=== PATIENT | male | born 1940 | race Caucasian/White ===

== ENCOUNTER 2018-03-02 10:38 | Emergency (ER) | payer MEDICARE, SELFPAY ==
[2018-03-02 10:39] VITALS: BP 160/85; PULSE 80; RESP 17; TEMP 37.2; O2SAT 92; BMI 39.2
[2018-03-02 10:52] VITALS: O2SAT 93
[2018-03-02 10:58] VITALS: O2SAT 93
--- NOTE | 2018-03-02 10:58 | EKG12_ITS ---
Test Reason : SOB Blood Pressure : / mmHG Vent. Rate : 083 BPM Atrial Rate : 083 BPM P-R Int : 376 ms QRS Dur : 080 ms QT Int : 388 ms P-R-T Axes : 044 -15 003 degrees QTc Int : 455 ms Sinus rhythm with sinus arrhythmia with 1st degree A-V block Minimal voltage criteria for LVH, may be normal variant Borderline ECG Confirmed by RENAE GUZMAN, STU ([id number]), newspaper editor managing DU MACK ([id number]) on 03/04/2018 1:39:36 PM Referred By: MARTI Confirmed By:STU MACDONALD MD
--- NOTE | 2018-03-02 11:03 | ED.DCSUM_ITS ---
- ER Visit Summary Date of Service: 03/02/18 Chief Complaint: Cough and shortness of breath History of Present Illness: The patient is a 77 M history of prior stroke, hypertension, BPH and neuropathies. Patient states for the last 2 weeks she has had a chronic nonproductive cough. Denies any chest pain. No fever. No hemoptysis. Was seen today at the [facility] urgent care they were concerned as they felt he had edema in his lower extremities they state that he had a weight gain he denies this. And was sent in the ER for further evaluation. He has no history of congestive heart failure. He has no history of renal disease. Physical Examination: Appearing older male. Vital signs stable except pulse ox 92% here on room air at the [facility] it was reportedly 90. He is borderline hypoxic. H EENT exam unremarkable. No distress. Neck nontender no JVD. Lungs coarse breath sounds bilaterally. No rales rhonchi or wheezing. Heart regular rhythm rate in the 80s. Abdomen is tender. He is moving all 4 extremities. He has no motor deficits. He does have trace edema both lower extremities. Calves are nontender. Neurologically he is awake and alert. 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 But no motor deficits. Back nontender. Test Results: BC shows elevated white count of 13.9 normal hemoglobin 13 no bands. Chemistries normal creatinine of 1 gap at 12. Troponin was normal. BNP was normal at 24. Chest x-ray showed no acute abnormality read both by myself the radiologist it was a 2 view film. EKG shows sinus rhythm rate 83 no acute signs of MS or ischemia. Unchanged from prior EKG from 2012. Emergency Department Course and Treatment: Older male with chronic cough and developing pedal edema. Treatment Plan: Repeat exam no change patient is doing well 1415. I discussed with both he and his his lab work x-ray and EKG. They are comfortable being discharged home with follow-up as an outpatient with primary care physician. Disposition: Discharge Impression: Viral URI Trace pedal edema This note was generated with [employer] dictation software. It may contain incorrect words, spelling, and punctuation that were not noted in review of the chart prior to signing ED Disposition - Plan for ED Patient: Chief Complaint: Shortness of Breath Referrals: Jose Maurice MD [Primary Care Provider] -
[2018-03-02 11:38] LABS: Anion Gap 12 (5-15); BUN 22 mg/dL (7-18); BUN/Creat Ratio 21.2 RATIO (10-20); Calcium,Total 8.8 mg/dL (8.5-10.1); Chloride 105 mmol/L (98-107); Creatinine, Serum 1.04 mg/dL (0.70-1.30); EST Glomerular Filtration Rate 73 mL/min (>60); Est Glom Filt Rate - Afr Amer 89 mL/min (>60); Estimated Creatinine Clearance 62.35 ml/min; Glucose 127 mg/dL (74-106); Sodium Level 145 mmol/L (136-145)
[2018-03-02 11:39] LABS: Absolute Lymphocyte Count 0.41 X10^3/ul (0.83-4.51); Absolute Neutrophil Count 12.8 X10^3/uL (2.0-7.7); Basophil# 0.03 X10^3/uL; Basophil% 0.2 % (0-1); Eosinophil# 0.11 X10^3/uL; Eosinophils% 0.8 % (0-5); Hematocrit 44.3 % (40-54); Hemoglobin 13.9 g/dl (13.0-16.5); Lymphocyte # 0.41 X10^3/ul (4.0); Lymphocyte % 2.9 % (19-41); Mean Corp Hgb Conc 31.4 g/gl (32-36); Mean Corpuscular Hgb 27.9 pg (27.0-32.0); Mean Corpuscular Volume 88.8 fL (80-94); Monocyte# 0.55 X10^3/uL; Monocyte% 3.9 % (0-10); Platelet Count 151 K/mm3 (150-450); RBC Distribution Width CV 15.9 % (11.6-14.6); RBC Distribution Width SD 50.7 fl (35.1-43.9); Red Blood Count 4.99 M/mm3 (4.6-6.2); White Blood Count 13.9 K/mm3 (4.4-11.0)
[2018-03-02 11:40] LABS: Differential Indicated SCAN CRITERIA MET; POSITIVE COUNT NO; POSITIVE DIFFERENTIAL YES; POSITIVE MORPHOLOGY NO
[2018-03-02 12:26] LABS: BNP,B-Type NATRIURETIC PEPTIDE 24.8 pg/mL (0-100)
[2018-03-02 12:48] VITALS: PULSE 73; RESP 24; O2SAT 93
[2018-03-02 13:41] VITALS: BP 157/63; PULSE 75; RESP 20; O2SAT 93
--- NOTE | 2018-03-02 14:19 | ED.DEP ---
ED Disposition - Plan for ED Patient: Disposition: Home or Assisted Living Chief Complaint: Shortness of Breath Instructions: ED URI Viral Referrals: Jose Maurice MD [Primary Care Provider] - 3-5 Days if not improving Additional Instructions: Follow-up your primary care physician. Your labs today all look good as did your chest x-ray. Return if you are feeling worse otherwise follow-up with your doctor.
[2018-03-02 14:25] VITALS: BP 154/96; PULSE 56; RESP 20; O2SAT 95
--- NOTE | 2018-03-03 13:58 | CM.ED ---
ED Callback: Follow-up call placed to patient. Patient states I'm not quite as bad as yesterday. I'm feeling better. He states his edema is about the same as yesterday, maybe a little better. He states that he did not take his Lasix last night, but did take it today. Upon asking patient if he's had shortness of breath today, he states not too much. I instructed the patient to follow-up with his PCP in 3-5 days if he feels he's not improving. Patient states understanding and denies any needs or questions at this time.
== END 2018-03-02 14:27 | disposition home or self-care (01) ==
PROVIDERS: Emergency Provider Emergency Medicine; Family Provider Family Medicine; PCP Family Medicine
DX: J06.9 Acute upper respiratory infection, unspecified (principal); R09.02 Hypoxemia; I10 Essential (primary) hypertension; R06.02 Shortness of breath; G62.9 Polyneuropathy, unspecified; N40.0 Benign prostatic hyperplasia without lower urinary tract symptoms; Z79.82 Long term (current) use of aspirin; Z79.899 Other long term (current) drug therapy; Z86.73 Personal history of transient ischemic attack (TIA), and cerebral infarction without residual deficits
CPT/HCPCS: 71046; 80048; 83880; 84484; 85025; 93005; 99284; A4216

== ENCOUNTER 2018-09-15 11:15 | Outpatient (RCR) | payer MEDICARE, SELFPAY ==
--- NOTE | 2018-09-17 18:25 | HP.OTEVAL_ITS ---
Patient's Visit Information JUAN MANUEL MASON is a 77 year old M, referred to Occupational Therapy by Dexter Sher MD, with a diagnosis of dupuytren contracture. Date of Evaluation: 09/15/18 Occupational Therapist: Millie Castañeda - Subjective Subjective: Pt seen for initial occupational therapy evaluation for dupuytren contracture. Pt had sx 09/08/18 on L hand MF, RF skin graft from bottom side of PF to PIP MF. Pt arrived in splint from day of sx, to be removed and placed in custom static hand based volar splint in maximum safe extension to be worn while sleeping and PRN with protocol from Dr. Landry. Pt is L hand dominent. Pt limited with all basic self care tasks at this time. Lives with spouse and is retired. Ambulates with cane or rollator. - Pain L hand 0 Pain Intensity Range: 0, 8 - Objective Objective/Observation: limited ROM L hand, increased pain with movement, edema L hand - ROM Wrist: L 40/61 ROM Comments: L MP PF -415, RF -332 MF -53. L PIP PF -, RF - MF - 4/60. L DIP PF 0/8, RF 0/6, MF 0/5 - Strength Newspaper Or Periodical Editor: R 80#, L DNT Lateral Pinch: R 16#, L DNT Tripod Pinch: R 10#, L DNT - Edema Other: Pt demo edema L hand and digits - Sensation Sensation Comments: Pt states slight numbness tip of L MF new since sx. - Quick DASH-Disab of Arm,Shoulder& Hand Quick DASH Score: 70.4525 - Goals Goal:100% adherence to protocol: Yes Goal:Daily scar massage when approriate: Yes Goal:ROM equal to unaffected hand: Yes Goal:Newspaper Or Periodical Editor/Pinch strength at least 75% of unaffected hand: Yes Goal:No pain with affected hand use: Yes Goal:Full use of affected hand in daily activities including: Yes Goal:Decrease scar hypersensitivity: Yes Other Goal: Pt/caregiver will be educated on HEP, scar mngmt techniques, wearing schedule for splint and wound care techniques with good understanding and demo 100%x - Rehabilitation General Assessment: Pt post-op dupuytrens 09/08/18 with limited ROM, increased edema, pain. Pt would benefit from direct occupational therapy services to follow protocol to increase ROM, increase strength, wound debridement as needed, decrease pain and edema, educate on scar mngmt techniques and wound care techniques, educate on HEP when appropriate to increase pt's ability to functionally use L hand at PLOF 1-2x/wk x 6 wks. Rehabilitation Potential: Good - Anticipated Interventions Anticipated Interventions: A/AAROM/PROM, Strengthening, Edema Control, Scar Care, Massage, Desensitization, Wound Care, Modalities, Orthoses, Joint Protection/Energy Conservation, Fine Motor Coord/Jose Alejandro, ADL Training, Education re assistive Equipment, Education re Diagnosis, Education re Self-Bandaging Techniques, Education re Skin Care and Precautions, Education re Self Massage Techniques, Education re Correct Donning Tech,Care&Wearing Sched Comp Garments, Caregiver Training, Home Program - Visit Plan Frequency: 1-2x /Week Duration: 6 Weeks General Plan: Follow protocol. Increase ROM, increase strength, decrease scar adhesions, educate on scar mgnmt techniques, wound debridement, decrease pain and edema, educate on correct donning/doffing of splint with wear schedule TEXT: Thank you for the opportunity to evaluate your patient. For Medicare and Medicare HMO plans, please review the plan of care and approve it. It will need to be FAXED BACK to us at [phone] for Medicare purposes. Please let me know if there are questions or concerns regarding this plan of care. Physician Signature: Date:
== END 2018-09-15 19:00 | disposition home or self-care (01) ==
LOC: OT 11:15
PROVIDERS: Family Provider Family Medicine; PCP Family Medicine; Referring Provider Orthopaedic Surgery; Visit Provider Orthopaedic Surgery
DX: M72.0 Palmar fascial fibromatosis [Dupuytren] (principal)
CPT/HCPCS: 97165; 97166; 97167; 97760

== ENCOUNTER → 2018-12-29 08:14 | Outpatient (CLI) | payer MEDICARE, SELFPAY ==
--- NOTE | 2018-12-29 08:28 | RAD_ITS ---
STUDY: X-RAY - ESOPHAGUS (BARIUM SWALLOW) WITH FLUOROSCOPY REASON FOR EXAM: Male, 78 years old. Dysphagia for solids. Patient has a history of bladder cancer. TECHNIQUE: 18 view(s) of the esophagus were obtained following swallowing of barium. FLUOROSCOPY TIME (if supplied): (0:42) minutes/seconds COMPARISON: None. FINDINGS: There is no demonstrated esophageal foreign body. There is no demonstrated stricture or mucosal abnormality. Tertiary contractions of the distal third of the esophagus are seen. Normal gastroesophageal junction, without a demonstrated hiatal hernia. The patient ingested a 12 mm tablet of barium without difficulty. There is atherosclerotic tortuosity of the aortic arch and descending thoracic aorta. Normal visualized pulmonary parenchyma. There are diffuse degenerative changes of the visualized thoracic spine. Prior fusion in the lower lumbar spine. RAD/Esophagus Only IMPRESSION: Tertiary contractions seen in the distal one third of the esophagus. The patient ingested a 12 mm tablet of barium without any difficulty. Electronically Signed: Akil Blount, at 9:05 EDT , Service support ,
== END ==
PROVIDERS: Family Provider Family Medicine; PCP Family Medicine; Referring Provider Nurse Practitioner Adult Health; Visit Provider Nurse Practitioner Adult Health
DX: R13.10 Dysphagia, unspecified (principal)
CPT/HCPCS: 74220

== ENCOUNTER 2019-10-24 16:28 | Emergency (ER) | payer MEDICARE, SELFPAY ==
[2019-10-24 16:29] VITALS: BP 132/90; PULSE 104; RESP 16; TEMP 36.3; O2SAT 95; BMI 38.6
--- NOTE | 2019-10-24 17:08 | RAD_ITS ---
STUDY: X-RAY - RIGHT TIBIA AND FIBULA REASON FOR EXAM: Male, 78 years old. FALL IN SHOWER, LACERATION TO LOWER LEG ANTERIORLY TECHNIQUE: 4 view(s) of the tibia and fibula were obtained. COMPARISON: None. FINDINGS: Normal visualized tibia. There is focal soft tissue edema adjacent to the lateral malleolus with well-corticated irregular appearance of the distal fibula with possible new injury. There is a subtle lucency within the distal fibula. There is a partially visualized Achilles spur. There is a deep laceration in the anterior aspect of the tibial soft tissues. RAD/Tibia & Fibula 2 Views IMPRESSION: Soft tissue laceration at the level of the mid tibia without fracture. No visualized foreign body. Age-indeterminate avulsion injury of the distal fibula possible new nondisplaced fracture. There is soft tissue edema. Electronically Signed: Anna Carreno MD at 17:53 EDT Tel , Service support ,
--- NOTE | 2019-10-24 17:08 | RAD_ITS ---
STUDY: X-RAY - RIGHT FOOT CLINICAL: Male, 78 years old. FALL IN SHOWER, LACERATION TO LOWER LEG ANTERIORLY TECHNIQUE: 3 view(s) of the foot. COMPARISON: None. FINDINGS: There is demineralization of the rear and midfoot bones. Is degenerative change in the ankle joint. There is a all visualized irregular appearance of the distal aspect of the lateral malleolus with overlying soft tissue edema. Normal visualized subtalar, talonavicular, calcaneocuboid, tarsal and tarsometatarsal articulations. There is demineralization of the metatarsi. Normal metatarsophalangeal joint of the great toe. Normal tibial and fibular sesamoid bones. Normal interphalangeal joint of the great toe. Normal phalanges of the great toe. Normal second through fifth metatarsophalangeal joints. Normal interphalangeal joints and phalanges of the lesser toes. RAD/Foot min 3 Views IMPRESSION: Soft tissue edema lateral malleolus. Age-indeterminate avulsion injury of the fibula. Please refer to ankle tibia and fibula x-rays. Bony osteopenia are visualized no visualized fracture of the foot. There is soft tissue edema about the foot. Electronically Signed: Anna Carreno MD at 17:48 EDT Tel , Service support ,
[2019-10-24] MEDS: Acetaminophen 500 MG Tablet 1000 MG PO (17:15)
--- NOTE | 2019-10-24 18:09 | ED.DCSUM_ITS ---
- ER Visit Summary Date of Service: 10/24/19 Chief Complaint: Fall History of Present Illness: The patient is a [address] Maurice. He reports that he was sitting on a chair in his shower when the leg broke and he fell. His came and helped him and as he stood up he slipped and fell again. He hit his vang on the glass door to the shower. He reports that he did not really have any pain there. They put a dressing on it and he went and sat in his chair. He got up to walk 2 hours later and reports that he has right leg and foot pain is 7 out of 10 in severity. Patient denies any blow to the head or loss of consciousness. Is not on anticoagulants. He denies any neck, back, shoulder, wrist, or hip pain. His tetanus is up-to-date. Physical Examination: Vitals: Stable. Afebrile. Neck: No vertebral tenderness. Full ROM without difficulty. Cleared by NEXUS criteria. Back: No vertebral tenderness. General: A&O x 3. NAD. Cardiovascular exam: Regular rate and rhythm, no murmur, rub or gallop. Respiratory exam: Chest nontender. No crepitus. Clear to auscultation bilaterally. No wheezes or stridor. Abdominal exam: Soft, nontender, nondistended, normal bowel sounds. No pain in RUQ or LUQ specifically. No peritoneal signs. Extremity: 10 cm laceration to the anterior surface of his right leg that extends to bone. This is moderately tender to palpation. He has mild tenderness palpation over both the medial lateral malleolus. Moderate tensional patient is diffuse over his foot. There is no focal swelling. There is no contusion. Test Results: Right tib-fib x-ray shows no acute disease. Does have an old avulsion fracture of the lateral malleolus. This is well-rounded and does not appear acute. X-ray of his right foot shows degenerative changes. Emergency Department Course and Treatment: Patient was treated with Tylenol. His wound is approximately 7 hours old. He was given dose of Keflex p.o. He had his wound anesthetized and repaired. He tolerated this well. Treatment Plan: Patient be discharged on Keflex. Instructed follow-up with his primary care physician in 10 to 14 days for suture removal. Did have a prolonged discussion about the risk of infection and what to watch for. Instructed to return the emerge from for any concerns. Disposition: To home in improved and stable condition. Impression: 1. Fall. 2. Laceration right leg, 10 cm, repaired. Procedure note: Wound was cleansed with chlorhexidine soap. Anesthetized with 1% lidocaine without epinephrine. Copiously irrigated with normal saline. Wound was explored there is no foreign material present. It was closed with 10 simple interrupted 3-0 ethilon sutures. The patient tolerated it well. This note was generated with [employer] dictation software. It may contain incorrect words, spelling, and punctuation that were not noted in review of the chart prior to signing ED Disposition - Plan for ED Patient: Disposition: Home or Assisted Living Instructions: ED Sprain Foot, ED Laceration Ext Sutr Stap Tape Prescriptions: Cephalexin [Keflex] 500 mg PO Q6 #28 cap Prescription Printed Referrals: Jose Maurice MD [Primary Care Provider] - 10-14 Days suture removal
[2019-10-24] MEDS: Cephalexin 500 MG Capsule PO (18:19)
[2019-10-24 18:27] VITALS: PULSE 61; RESP 16; O2SAT 97
[2019-10-24 18:30] VITALS: RESP 16
--- NOTE | 2019-10-24 18:31 | ED.RN ---
REVIEWED D/C INSTRUCTIONS, FOLLOW UP CARE, PRESCRIPTION, AND S/S THAT WOULD WARRANT A RETURN TO THE ED WITH PT. PT VERBALIZED AN UNDERSTANDING AND DENIES FURTHER QUESTIONS FOR THIS RN. PT SKIN P/W/D, RESP EVEN AND UNLABORED, PT A&O X 3, NO DISTRESS NOTED. PT ASSISTED OUT OF ED IN WHEELCHAIR.
== END 2019-10-24 18:32 | disposition home or self-care (01) ==
PROVIDERS: Emergency Provider Emergency Medicine; PCP Family Medicine
DX: S81.811A Laceration without foreign body, right lower leg, initial encounter (principal); W18.2XXA Fall in (into) shower or empty bathtub, initial encounter; Y93.E1 Activity, personal bathing and showering; Y92.9 Unspecified place or not applicable; I10 Essential (primary) hypertension; G62.9 Polyneuropathy, unspecified; Z79.82 Long term (current) use of aspirin; Z79.899 Other long term (current) drug therapy; Z86.73 Personal history of transient ischemic attack (TIA), and cerebral infarction without residual deficits
CPT/HCPCS: 12004; 73590; 73630; 99285

== ENCOUNTER 2019-10-30 13:16 | Emergency (ER) | payer MEDICARE, SELFPAY ==
[2019-10-30 13:17] VITALS: BP 124/83; PULSE 87; RESP 18; TEMP 36.4; O2SAT 99; BMI 39.7
[2019-10-30 13:46] VITALS: RESP 16
[2019-10-30 13:50] LABS: Absolute Lymphocyte Count 0.97 X10^3/uL (0.83-4.51); Absolute Neutrophil Count 6.8 X10^3/uL (2.0-7.7); Basophil# 0.08 X10^3/uL; Basophil% 0.9 % (0-1); Eosinophil# 0.23 X10^3/uL; Eosinophils% 2.6 % (0-5); Hematocrit 41.8 % (40-54); Hemoglobin 13.3 g/dL (13.0-16.5); Lymphocyte # 0.97 X10^3/ul (4.0); Lymphocyte % 11.1 % (19-41); Mean Corp Hgb Conc 31.8 g/dL (32-36); Mean Corpuscular Hgb 28.2 pg (27.0-32.0); Mean Corpuscular Volume 88.7 fL (80-94); Mean Platelet Vol. 10.1 fl (6.2-12.0); Monocyte# 0.63 X10^3/uL; Monocyte% 7.2 % (0-10); NRBC Flagged by Analyzer 0 % (0-5); Neutrophil # 6.76 X10^3/uL (2.7-7.7); Neutrophil % 77.9 % (47-70); Platelet Count 213 K/mm3 (150-450); RBC Distribution Width CV 15.9 % (11.6-14.6); RBC Distribution Width SD 51.6 fl (35.1-43.9); Red Blood Count 4.71 M/mm3 (4.6-6.2); White Blood Count 8.7 K/mm3 (4.4-11.0)
[2019-10-30 13:57] LABS: International Normalized Ratio 1.1; Prothrombin Time (Protime)PT. 13.4 SECONDS (11.7-14.9)
[2019-10-30 13:58] LABS: Partial Thromboplast Time 29.9 Seconds (24.1-36.2)
[2019-10-30 14:04] LABS: Anion Gap 6 (5-15); BUN 21 mg/dL (7-18); BUN/Creat Ratio 22.7 RATIO (10-20); Calcium,Total 8.8 mg/dL (8.5-10.1); Chloride 107 mmol/L (98-107); Creatinine, Serum 0.93 mg/dL (0.70-1.30); EST Glomerular Filtration Rate 84 mL/min (>60); Est Glom Filt Rate - Afr Amer 101 mL/min (>60); Glucose 101 mg/dL (74-106); Potassium 3.9 mmol/L (3.5-5.1); Sodium Level 140 mmol/L (136-145)
--- NOTE | 2019-10-30 14:08 | ED.DCSUM_ITS ---
- ER Visit Summary Date of Service: 10/30/19 Chief Complaint: Possible DVT History of Present Illness: The patient is a 78 M sent for possible DVT. The patient had a mechanical fall earlier in the week. He cut his vang and injured his foot. He had x-rays that were negative. He continues to have pain and swelling in the foot and leg on the right. He also has shooting pain into his foot. The wound seems to be doing well for him. No chest pain, shortness of breath, cough, hemoptysis. He does take half an aspirin daily. He denies any history of DVT or PE in the past. Physical Examination: Afebrile and vital signs unremarkable. There is some erythema to his right lateral foot and he has a sutured laceration to his right vang. Right lower extremity is more swollen compared to the left. Calf is nontender. He is neurovascularly intact. Test Results: Ultrasound is not available. His CBC, BMP, INR, and PTT are unremarkable. Emergency Department Course and Treatment: I did check some basic labs. Patient was treated with Lovenox subcutaneous. He will be referred for outpatient ultrasound. He should return right away for chest pain, shortness of breath, cough, hemoptysis. Lovenox precautions discussed. Order was placed in the computer and he was given a paper requisition form for the ultrasound. Treatment Plan: As above Disposition: Discharge Impression: Right lower extremity edema This note was generated with [employer] dictation software. It may contain incorrect words, spelling, and punctuation that were not noted in review of the chart prior to signing ED Disposition - Plan for ED Patient: Referrals: Jose Maurice MD [Primary Care Provider] -
--- NOTE | 2019-10-30 14:10 | ED.DEP ---
ED Disposition - Plan for ED Patient: Instructions: ED Peripheral Edema, Unilateral Referrals: Jose Maurice MD [Primary Care Provider] -
[2019-10-30] MEDS: Enoxaparin 120 MG/0.8 ML Syringe SC (14:31)
[2019-10-30 14:35] VITALS: RESP 14
--- NOTE | 2019-10-30 14:35 | ED.RN ---
REVIEWED D/C INSTRUCTIONS, FOLLOW UP CARE, AND S/S THAT WOULD WARRANT A RETURN TO THE ED WITH PT. PT VERBALIZED AN UNDERSTANDING AND DENIES FURTHER QUESTIONS FOR THIS RN. ALSO DISCUSSED WITH PT THAT HOSPITAL WILL CALL HIM TOMORROW TO SCHEDULE VENOUS DUPLEX ULTRASOUND. PT SKIN P/W/D, RESP EVEN AND UNLABORED, PT A&O X 3, NO DISTRESS NOTED. PT ASSISTED OUT OF ED IN WHEELCHAIR.
== END 2019-10-30 14:40 | disposition home or self-care (01) ==
LOC: ED 13:44
PROVIDERS: Emergency Provider Emergency Medicine; PCP Family Medicine
DX: R60.0 Localized edema (principal)
CPT/HCPCS: 80048; 85025; 85610; 85730; 99282

== ENCOUNTER → 2019-10-31 09:59 | Outpatient (CLI) | payer MEDICARE, SELFPAY ==
[2019-10-30 13:17] VITALS: BMI 39.7
--- NOTE | 2019-10-31 10:19 | VDLE_ITS ---
Reason For Study: Sswelling RIGHT LEFT GSV is normal. CFV is compressible, spontaneous, phasic, CFV is compressible, spontaneous, phasic, competent, and demonstrates normal competent and demonstrates normal augmentation. augmentation. FV is compressible, spontaneous, phasic, competent and demonstrates normal augmentation. POP V is compressible, spontaneous, phasic, competent and demonstrates normal augmentation. T/P Trunk is compressible. PTV is compressible. RT PerV is compressible. Procedure Exam performed in department. A preliminary report was called and/or faxed to PCP Josafat. Pt seen in ED 10/30/2019. Interpretation Summary Deep veins of the right lower extremity are patent and compressible segmentally. There is no evidence of right lower extremity deep vein thrombosis. Valvular competence appears intact within the proximal deep venous system on the right . The right great saphenous vein appears patent and compressible segmentally. Ordering Physician: Louis Sandoval Referring Physician: Jose Maurice Performed By: Shannan Lanza RVT
== END ==
PROVIDERS: PCP Family Medicine; Visit Provider Emergency Medicine
DX: M79.89 Other specified soft tissue disorders (principal)
CPT/HCPCS: 93971

== ENCOUNTER 2021-03-05 12:24 | Emergency (ER) | payer MEDICARE, SELFPAY ==
[2021-03-05 12:25] VITALS: BP 103/66; PULSE 87; RESP 18; TEMP 35.7; O2SAT 92; BMI 41.1
--- NOTE | 2021-03-05 13:57 | RAD_ITS ---
STUDY: X-RAY - LEFT HAND REASON FOR EXAM: Male, 80 years old. Laceration following a fall. TECHNIQUE: 3 view(s) of the hand. COMPARISON: None. FINDINGS: Normal radiocarpal articulation. Normal distal radioulnar joint. Normal visualized carpal bones. Normal carpal articulations There is degenerative arthrosis of the carpometacarpal (CMC) articulation of the thumb. Normal second through fifth carpometacarpal joints. Normal metacarpi. Normal metacarpophalangeal joint of the thumb. Normal interphalangeal joint of the thumb. Normal proximal and distal phalanges of the thumb. Normal metacarpophalangeal joints of the second through fifth fingers. Normal proximal and distal interphalangeal joints of the second through fifth fingers. Normal phalanges of the second through fifth fingers. Soft tissue swelling overlying the fifth digit. RAD/Hand Min 3 Views IMPRESSION: Soft tissue swelling overlying the fifth digit. Electronically Signed: Akil Blount MD at 14:31 EDT , Service support ,
--- NOTE | 2021-03-05 14:39 | EX.ED.UPPERE ---
HPI History of Present Illness Chief Complaint: Upper Extremity Injury Informant: patient Narrative Narrative: Left hand dominant male presents mechanical fall around 1130 outside the house. Actually stepped off the edge concrete falling down. No head injuries. Laceration left hand. Abrasion left knee. No pain in the knee able to ambulate. He takes half a full dose of aspirin daily. No other anticoagulants. Tetanus within the last 5 years. Tetanus Immunization: <5 years [facility] Medical History (Updated 03/05/21 @ 15:[address] Aly Milligan DO) High cholesterol Hypertension Home Medications aspirin 175 mg PO DAILY@0800 05/09/15 [History Last Taken Unknown] gabapentin 1,200 mg PO BID 05/09/15 [History Last Taken Unknown] hydrochlorothiazide 25 mg PO DAILY 05/09/15 [History Last Taken Unknown] levothyroxine 150 mcg PO DAILY 05/09/15 [History Last Taken Unknown] lisinopril 2.5 mg PO DAILY 05/09/15 [History Last Taken Unknown] multivitamin [Daily Multiple] 1 tab PO DAILY 05/09/15 [History Last Taken Unknown] pravastatin 20 mg PO QHS 05/09/15 [History Last Taken Unknown] tamsulosin 0.4 mg PO DAILY 05/09/15 [History Last Taken Unknown] trazodone 50 mg PO QHS 05/09/15 [History Last Taken Unknown] cephalexin 500 mg PO Q6 #28 cap 10/24/19 [Rx Last Taken Unknown] Allergy/AdvReac Type Severity Reaction Status Date / Time prednisone AdvReac Nausea Verified 03/05/21 12:27 Social History Smoking Status: Never smoker ROS ROS ED Constitutional Constitutional ED: Denies chills, fever(s) or sweats Eyes Eyes: Denies change in vision ENT ENT ED: Denies dysphagia or sore throat Cardiovascular Cardiovascular: Denies chest pain, leg edema, palpitations or racing heartbeat Respiratory/Chest Respiratory/Chest: Denies cough, dyspnea or dyspnea on exertion Gastrointestinal Gastrointestinal: Denies abdominal pain, diarrhea, nausea or vomiting Genitourinary Genitourinary ED: Denies dysuria, hematuria or urinary frequency Musculoskeletal Musculoskeletal: Denies back pain, extremity pain or neck pain Integumentary Reports other Details: Left hand laceration ; Denies rash or wounds Neurologic Neurologic: Denies headache(s), paresthesias or weakness EXAM Physical Exam Const Vital Signs: 03/05/21 12:25 Temperature 96.2 F L Temperature Source Temporal Pulse Rate 87 Respiratory Rate 18 Blood Pressure 103/66 Blood Pressure Mean 78 Pulse Ox 92 Oxygen Delivery Method Room Air Positive well nourished and well developed General Appearance ED: well developed and NAD HEENT Reports moist mucous membranes normocephalic and atraumatic Eyes PERRL, EOMs intact bilaterally and conjunctivae normal General Eye ED: Yes normal appearance of both eyes Neck no lymphadenopathy and supple General: Negative for tenderness Chest Wall Chest: Negative for tenderness Resp normal respiratory effort and normal air movement Effort and Inspection: symmetric chest movement; Negative for respiratory distress Cardio regular rate, regular rhythm and no murmurs Peripheral Pulses: pulses 2+ throughout GI normal to inspection, nondistended, normoactive bowel sounds and non-tender Palpation: Negative for guarding or rebound tenderness present Back/Spine no CVA tenderness and no thoracic nor lumbar tenderness Extremity Extremity Narrative: Left upper extremity: No elbow or wrist tenderness. Hand examination noted 5 cm dorsal flap laceration distal 4th metatarsal, there is subcutaneous exposure, there is no active bleeding. No deformities of the hand. Left lower extremity: Negative logroll there is small abrasion patellar with no bony tenderness. Negative varus and valgus. No active bleeding. Neuro vas intact distally. General Extremety ED: Negative for edema or tenderness General Extremity: Negative for edema Neuro oriented x3 and no sensory deficits noted Sensorium / Orientation: awake and alert Skin no rashes or lesions noted and no wounds MDM MDM MDM Narrative Medical decision making narrative: Patient knee abrasion. X-ray obtained from triage reviewed by myself read by radiology no fracture or dislocation. Laceration repaired. Wound care discussed. Follow-up discussed with PCP for suture removal. Procedure note: Verbal consent. Normal sterile conditions. 2 cc lidocaine 1% without epinephrine. Wound with copious wash 2 and 50 cc normal saline. Small debris's were removed. Total of 8, 5-0 nylon simple interrupted sutures placed with good approximation of the flap. Patient taught procedure well. Dressing placed by myself. Radiography Diagnostic Testing: Radiology Impression Hand X-Ray 03/05/21 13:57 IMPRESSION: Soft tissue swelling overlying the fifth digit. Electronically Signed: Akil Blount MD at 14:31 EDT , Service support , Discharge Plan Triage Chief Complaint: Upper Extremity Injury ED Provider: Aly Milligan Dx/Rx/DC Orders Clinical Impression: Laceration of hand, left, Abrasion of knee, left, Fall Instructions: ED Abrasion, ED Laceration Hand with ... Prescriptions: No Action multivitamin [Daily Multiple] 1 EACH tablet 1 tab PO DAILY RF: 0 trazodone 50 MG tablet 50 mg PO QHS RF: 0 aspirin 325 MG tablet 175 mg PO DAILY@0800 RF: 0 tamsulosin 0.4 MG capsule 0.4 mg PO DAILY RF: 0 gabapentin 800 MG tablet 1,200 mg PO BID RF: 0 levothyroxine 150 MCG tablet 150 mcg PO DAILY RF: 0 pravastatin 20 MG tablet 20 mg PO QHS RF: 0 lisinopril 5 MG tablet 2.5 mg PO DAILY RF: 0 hydrochlorothiazide 25 MG tablet 25 mg PO DAILY RF: 0 cephalexin 500 MG capsule 500 mg PO Q6 Qty: 28 RF: 0 Primary Care Provider: Jose Maurice Referrals: Jose Maurice MD [Primary Care Provider] - 1 Week Disposition Disposition: Home, Self Care Discharge Date/Time: 03/05/21 15:36
[2021-03-05] MEDS: Lidocaine 1% (20 ml mdv) 20 ML Vial INFILT (15:07)
== END 2021-03-05 15:36 | disposition home or self-care (01) ==
LOC: ED 15:24
PROVIDERS: Emergency Provider Emergency Medicine; PCP Family Medicine
DX: S61.422A Laceration with foreign body of left hand, initial encounter (principal); S80.212A Abrasion, left knee, initial encounter; W17.89XA Other fall from one level to another, initial encounter; Y93.9 Activity, unspecified; Y92.008 Other place in unspecified non-institutional (private) residence as the place of occurrence of the external cause; Y99.8 Other external cause status; I10 Essential (primary) hypertension; E78.00 Pure hypercholesterolemia, unspecified; Z79.52 Long term (current) use of systemic steroids; Z79.82 Long term (current) use of aspirin; Z79.899 Other long term (current) drug therapy
CPT/HCPCS: 12002; 73130; 99281; 99283

== ENCOUNTER 2021-05-23 09:58 | Day surgery (SDC) | payer MEDICARE, SELFPAY ==
[2021-05-23 10:35] VITALS: BP 147/71; PULSE 64; RESP 18; TEMP 36.8; O2SAT 94; BMI 41.8
[2021-05-23] MEDS: Lactated Ringers 1,000 ML 15 ML IV (10:35)
--- NOTE | 2021-05-23 10:55 | HP.PCM_ITS ---
History and Physical Date of Admission: 05/23/21 JUAN MANUEL MASON, is a 80 M who presents to the office today for When eating particular food he has difficulty swallowing, denies difficulty with liquids or pills. Requires a liquid to push the food through the esophagus into the stomach. Occasionally he has regurgitation and choking. Symptom onset approximately 5 years prior. Prior workup included swallow study a couple years ago but he did not give any diagnosis. Denies history of EGD. PCP referred for swallow study and then to this office. ROS ENT ENT: Positive for difficulty swallowing Gastro GI: Positive for difficulty swallowing Exam Const General: cooperative and comfortable Nutritional Appearance: average body habitus and well nourished HENMT Head: normal to inspection Ears: hearing grossly normal bilaterally Nose: external nose normal Face and sinus: normal facial exam Mouth: oral mucosae normal Throat: posterior oropharynx normal Eyes General: appearance normal, both eyes and all related structures Neck Neck: normal visual inspection Chest Chest palpation & inspection: normal inspection of the chest and normal palpa tion of entire chest wall Resp Effort & Inspection: normal respiratory effort Auscultation: Bilateral: Clear to Auscultation Cardio Palpation: normal PMI Rate: regular rate Rhythm: regular rhythm GI Inspection: normal to inspection Auscultation: normal bowel sounds Percussion: normal to percussion Palpation: no hepatosplenomegaly Skin General: no rashes or lesions noted Neuro General: patient alert Extrem General: normal to inspection Psych Affect: normal affect Quality Reporting Tobacco Screening ([facility] 138) Smoking Status: Never smoker Assessment and Plan Assessment and Plan (1) Esophageal dysphagia: Status: Acute Plan - Dr. Victor Friend, DO: The differential diagnosis for an esophageal dysphagia and the elderly population would be an esophageal ring, hiatal hernia, erosive esophagitis, esophageal neoplasia. He was explained alternatives, risk, benefits including not withstanding bleeding, infection, sepsis, perforation, need for emergent urgent . He will have an ASA of 3. I have re-examined the patient. There are no clinical changes since date of exam.
--- NOTE | 2021-05-23 11:00 | EGD_PTH ---
PATIENT: JUAN MANUEL MASON LOC: EN U#:[id number] AGE/SX: 80/M ROOM: RE05/23/[address]: Dr. Valente Campoverde DO : 1940 BED: DIS: 05/23/2021 SPEC #: [id number] RECD: 05/23/21 13:30 STATUS: SANDI REJae #: [id number] YADIEL: 05/23/21 11:[address]: Valente Campoverde DEPT: SURGICAL PATHOLOGY RECD BY: Keyana Holland ENTERED: 05/23/21 13:48 SP TYPE: EGD BIOPSY OT DR: Dr. Jose Maurice MD Tissues: Stomach, NOS Procedures: Special Stain Group II Surgery Specimen Level IV Alcian Blue/PAS (control) HEADER OPERATION: EGD PRE-OP DIAGNOSIS: Esophageal dysphagia TISSUE SUBMITTED: Biopsy of GE junction MICROSCOPIC DIAGNOSIS GE junction, biopsy: Fragments of gastric mucosa with mild chronic inflammation. Intestinal metaplasia (goblet cell metaplasia) not identified. See comment. NITESH:cole 05/24/2021 COMMENT Alcian blue/PAS stain with matched control is used in the evaluation of the specimen. MICROSCOPIC DESCRIPTION Slides are reviewed. GROSS DESCRIPTION Received in fixative is one container labeled with the patient's name and designated biopsy of GE junction. The specimen consists of two irregular fragments of light vail soft tissue that in aggregate measure 0.5 x 0.5 x 0.1 cm. The specimen is totally submitted in one cassette. / NITESH:cole 05/23/21 TC:3 CPT: 99665, 54295
[2021-05-23 11:26] VITALS: BP 147/71; BP 167/90; PULSE 87; RESP 18; TEMP 36.2; O2SAT 93
[2021-05-23 11:30] VITALS: BP 147/71; BP 161/85; PULSE 87; RESP 18; O2SAT 93
[2021-05-23 11:35] VITALS: BP 147/71; BP 150/90; PULSE 86; RESP 18; O2SAT 93
--- NOTE | 2021-05-23 11:37 | OP.EGD_ITS ---
Patient Name: Regan Arango Procedure Date: 05/23/2021 10:57 AM Date of : 1940 Age: 80 Procedure: Upper GI endoscopy Indications: Dysphagia Providers: Valente Campoverde DO Medicines: See the Anesthesia note for documentation of the administered medications Patient Profile: This is an 80 year old male. Refer to note in patient chart for documentation of history and physical. Patient has symptoms of chronic dysphagia and dysphagia with liquids. Complications: No immediate complications. Procedure: Pre-Anesthesia Assessment: - Prior to the procedure, a History and Physical was performed, and patient medications and allergies were reviewed. The patient is competent. The risks and benefits of the procedure and the sedation options and risks were discussed with the patient. All questions were answered and informed consent was obtained. Patient identification and proposed procedure were verified by the physician in the pre-procedure area. Mental Status Examination: alert and oriented. Airway Examination: normal oropharyngeal airway and neck mobility. Respiratory Examination: clear to auscultation. CV Examination: normal. Prophylactic Antibiotics: The patient does not require prophylactic antibiotics. Prior Anticoagulants: The patient has taken no previous anticoagulant or antiplatelet agents. ASA Grade Assessment: II - A patient with mild systemic disease. After reviewing the risks and benefits, the patient was deemed in satisfactory condition to undergo the procedure. The anesthesia plan was to use moderate sedation / analgesia (conscious sedation). Immediately prior to administration of medications, the patient was re-assessed for adequacy to receive sedatives. The heart rate, respiratory rate, oxygen saturations, blood pressure, adequacy of pulmonary ventilation, and response to care were monitored throughout the procedure. The physical status of the patient was re-assessed after the procedure. After obtaining informed consent, the endoscope was passed under direct vision. Throughout the procedure, the patient's blood pressure, pulse, and oxygen saturations were monitored continuously. The gastroscope was introduced through the and advanced to the. The gastroscope was introduced through the mouth, and advanced to the second part of duodenum. The upper GI endoscopy was accomplished without difficulty. The patient tolerated the procedure well. Moderate Sedation: Moderate (conscious) sedation was administered by the endoscopy nurse and supervised by the endoscopist. The patient's oxygen saturation, heart rate, blood pressure and response to care were monitored. Total physician intraservice time was 15 minutes. Scope In: 11:11:50 AM Scope Out: 11:20:36 AM Total Procedure Duration Time 0 hours 8 minutes 46 seconds Findings: One benign-appearing, intrinsic stenosis was found 34 to 35 cm from the incisors. This stenosis was moderately severe and measured 2 mm (inner diameter) x 6 cm (in length). The stenosis was traversed. A guide wire was placed, then the scope was withdrawn. Using the wire as a guide, dilation with a 54 Fr balloon dilator was performed. The dilation site was examined and showed moderate improvement in luminal narrowing. Estimated blood loss was minimal. The entire examined stomach was normal. The second portion of the duodenum was normal. LA Grade A (one or more mucosal breaks less than 5 mm, not extending between tops of 2 mucosal folds) esophagitis with no bleeding was found 34 to 35 cm from the incisors. Biopsies were taken with a cold forceps for histology. Verification of patient identification for the specimen was done. Estimated blood loss was minimal. Impression: - Benign-appearing esophageal stenosis. Dilated. - Normal stomach. - Normal second portion of the duodenum. - No specimens collected. Recommendation: - Discharge patient to home. - Resume previous diet. - Continue present medications. - Await pathology results. - Return to my office in 2 weeks. Procedure Code(s): --- Professional --- 90689, Esophagogastroduodenoscopy, flexible, transoral; with insertion of guide wire followed by passage of dilator(s) through esophagus over guide wire [id number], Moderate sedation services provided by the same physician or other qualified health palliative care nurse performing a gastrointestinal endoscopic service that sedation supports, requiring the presence of an independent trained observer to assist in the monitoring of the patient's level of consciousness and physiological status; initial 15 minutes of intra-service time; patient age 5 years or older (additional time may be reported with 24486, as appropriate) CPT copyright 2017 [employer]. All rights reserved. The codes documented in this report are preliminary and upon software computer specialist review may be revised to meet current compliance requirements. Valente Campoverde DO 05/23/2021 11:36:53 AM This report has been signed electronically. Number of Addenda: 1 Note Initiated On: 05/23/2021 10:57 AM Addendum Number: 1 Addendum Date: 02/27/2022 6:57:08 AM MAC was used instead of moderate sedation for the patient. Valente Campoverde DO 02/27/2022 6:57:15 AM This report has been signed electronically.
[2021-05-23 11:42] VITALS: BP 139/95; BP 147/71; PULSE 84; RESP 18; TEMP 36.1; O2SAT 93
[2021-05-23 12:04] VITALS: BP 147/71
== END 2021-05-23 12:12 | disposition home or self-care (01) ==
LOC: EN 10:02 → AC 10:02
PROVIDERS: PCP Family Medicine; Referring Provider Family Medicine; Visit Provider Internal Medicine Gastroenterology
PROC: (CPT 43239; principal; 2021-05-23 10:55)
DX: K22.2 Esophageal obstruction (principal); K20.90 Esophagitis, unspecified without bleeding; M19.90 Unspecified osteoarthritis, unspecified site; E78.00 Pure hypercholesterolemia, unspecified; I10 Essential (primary) hypertension; E07.9 Disorder of thyroid, unspecified; Z79.899 Other long term (current) drug therapy
CPT/HCPCS: 43239; 43249; 88305; 88313; J7120; C1769; J2405

== ENCOUNTER → 2022-04-15 | Outpatient (CLI) | payer MEDICARE, SELFPAY ==
--- NOTE | 2022-04-15 16:05 | SP.MBSS_ITS ---
Modified Barium Swallow - Patient Information Study Date: 04/15/22 Study Time: 13:05 Direct Billable Minutes: 90 Total Minutes procedure & reportin Diagnosis: Esophageal dysphagia (R13.14) Referring Physician: Jose Maurice Reason for Referral: Objectively assess swallow function, risk for aspiration, and determine recommendations for least restrictive diet textures and compensatory strategies to improve safety of swallow. 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 Pt follows with Dr. Campoverde. He reports having an esophageal dilation ~1 year ago. The patient and his report intermittent coughing episodes with food or drink. Typically, he feels sensation of food caught in his esophagus. Liquid wash sometimes helps, but sometimes it leads to regurgitation of the food/drink. PCP referred him for MBSS to assess concerns for aspiration. Current Diet Ordered: Soft solids / Thin liquids Dentition: WNL Mental Status: WNL Respiratory Status: Oxygenating on Room Air - Penetration-Aspiration Scale Penetration-Aspiration Scale: OBJECTIVE ASSESSMENT OF SWALLOW FUNCTION (QUANTITATIVE ? PER TRIAL): PENETRATION / ASPIRATION SCALE (PYLE): 1 = does not enter airway 2 = enters airway/above vocal folds/ejected 3 = enters airway/above vocal folds/not ejected 4 = enters airway/contacts vocal folds/ejected 5 = enters airway/contacts vocal folds/not ejected 6 = enters airway/below vocal folds/ejected 7 = enters airway/below vocal folds/not ejected despite effort 8 = enters airway/below vocal folds/no effort VIDEOFLOROSCOPIC SCALE SCORE (PYLE): Grade I = aspiration of material that has penetrated into the laryngeal vestibule, intact cough reflex Grade II = aspiration < 10 % of the bolus, intact cough reflex Grade III = aspiration of < 10 % of the bolus, reduced cough reflex or aspiration of > 10 % of the bolus, intact cough reflex Grade IV = aspiration of > 10 % of the bolus, reduced cough reflex - Penetration-Aspiration Scale Score Thin Liquid via teaspoon Result: 1= does not enter airway Thin Liquid via teaspoon Trial 2 Result: 1= does not enter airway Thin Liquid via large single sip from cup Result: 2= enter airway/above vocal folds/ejected Thin Liquid via sequential sips from cup Result: 1= does not enter airway Honor Thick Liquid via small single sip from cup Result: 1= does not enter airway Honey Thick Liquid via small single sip from cup Result: 1= does not enter airway Pudding via teaspoon with esophageal screen Result: 1= does not enter airway Thin Liquid via single sip from straw with esophageal screen Result: 1= does not enter airway 1/2 Cookie Result: 1= does not enter airway - Oral Phase Labial Seal: No Labial Escape Tongue Control During Bolus Hold: Escape to lateral buccal cavity/floor of mouth Bolus Preparation/Mastication: Timely and efficient chewing and mashing Bolus Transport/Lingual Motion: Brisk tongue motion Oral Residue: Residue collection on oral structures - Piecemeal deglutition with cookie - Pharyngeal Phase Initiation of Pharyngeal Swallow: Bolus head in valleculae Soft Palate Elevation: No bolus between soft palate and pharyngeal wall Laryngeal Elevation: Partial superior movement thyroid cart/partial apprx aryt- epig petiole Anterior Hyoid Excursion: Complete anterior movement Epiglottic Movement: Complete inversion Laryngeal Vestibule Closure at Height of Swallow: Incomplete; narrow column of air/contrast in laryngeal vestibule - trace penetration of thin liquids with full ejection from the laryngeal vestibule Pharyngeal Stripping Wave: Present - complete Pharyngoesophageal Segment Opening: Complete distension and complete duration; no obstruction of flow Tongue Base Retraction: Narrow column of contrast between tongue base & post. pharyngeal wall Pharyngeal Residue: Trace residue within or on pharyngeal structures - Esophageal Phase Esophageal Clearance: Esophageal retention w/ retrograde flow below pharyngoesophageal seg. - Diagnosis/Impression Diagnosis: Oropharyngeal swallow function grossly WNL, Esophageal dysphagia (R13.14) Impression: Overall normal oropharyngeal swallow function. Timely swallow onset. Good bolus control with no premature posterior loss. Piecemeal deglutition of cookie, mild oral residue effectively cleared with independent use of second swallow. Mildly decreased closure of the laryngeal vestibule during swallow onset with trace laryngeal penetration of thin liquids that fully ejected from the laryngeal vestibule after the swallow. No aspiration observed during the study. Trace pharyngeal residue. The esophageal phase is primarily marked by... 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 This esophageal retention did not appear to improve when provided thin liquid wash. -Picture below of esophageal screen of thin liquid wash via straw following trial of pudding by tsp. - Recommendations Diet: Thin Liquids - Easy to Chew textures (IDDSI Level 7) Compensatory Strategies: Small Bites - chew thoroughly, Small Sips, Slow Rate - avoid rapid multiple swallows, Alternate bites/solids and sips/liquids, Sitting upright, Remain sitting upright for 30 minutes after PO intake Recommend Repeat Modified Barium Swallow: No Need for Skilled Speech Therapy Services: No Recommended Referrals: GI Consult - Continue to follow with Dr. Campoverde to address esophageal retention with retrograde flow Education Completed: 1. Described result of evaluation. - Status Active ST Patient: Active - Contact Information [facility] Speech Therapy:: Renate Peres M.A. [facility] SUPERVISOR Speech-Language Pathologist [facility] [address] [place] [address] [email or web address] [phone] 04/15/22 16:12
== END | disposition home or self-care (01) ==
PROVIDERS: PCP Family Medicine; Referring Provider Family Medicine; Visit Provider Family Medicine
DX: R13.14 Dysphagia, pharyngoesophageal phase (principal)
CPT/HCPCS: 74230; 92611

== ENCOUNTER 2022-11-29 17:45 | Emergency (ER) | payer MEDICARE, SELFPAY ==
[2022-11-29 17:46] VITALS: BP 147/67; PULSE 60; RESP 18; TEMP 36.6; O2SAT 99; BMI 39.0
--- NOTE | 2022-11-29 18:33 | EKG12_ITS ---
Test Reason : WEAKNESS Blood Pressure : / mmHG Vent. Rate : 050 BPM Atrial Rate : 000 BPM P-R Int : 000 ms QRS Dur : 074 ms QT Int : 458 ms P-R-T Axes : 000 -17 -07 degrees QTc Int : 417 ms Normal sinus rhythm with 1st degree A-V block Minimal voltage criteria for LVH, may be normal variant ( R in aVL ) Inferior infarct , age undetermined Abnormal ECG Confirmed by RENAE GUZMAN, STU ([id number]), book or script editor MELVI ROACH ([id number]) on 12/02/2022 1:40:10 PM Referred By: DANUTA Confirmed By:STU MACDONALD MD
--- NOTE | 2022-11-29 18:42 | RAD_ITS ---
STUDY: X-RAY CHEST REASON FOR EXAM: Male, 82 years old. cough TECHNIQUE: Single AP portable view of the chest. COMPARISON: 03/02/2018 FINDINGS: The lungs are clear and expanded. There is no demonstrated pleural abnormality. Normal size heart. Normal mediastinum and katherine. Normal visualized pulmonary arteries. Normal visualized aortic arch and descending thoracic aorta. Normal visualized thoracic spine. Normal visualized ribs, clavicles, and shoulders. There is no demonstrated abnormality of the visualized soft tissue structures of the upper abdomen. RAD/Chest 1 View (Portable) IMPRESSION: Normal x-ray examination of the chest. Electronically Signed: Demetri Mari MD at 19:01 EDT ,
--- NOTE | 2022-11-29 18:43 | EDS_ITS ---
HPI History of Present Illness Chief Complaint: Weakness PFSH FOR[facility] Medical History Arthritis Back pain Bladder disease Cancer Cardiology follow-up encounter Difficulty swallowing Easy bruising Esophageal dysphagia High cholesterol History of edema History of pain when walking History of stress test Hx of bladder cancer Hypertension Injury of head and neck Non-smoker Restless legs Syncope Thyroid disease TIA (transient ischemic attack) Wears glasses Home Medications aspirin 325 mg tablet 175 mg PO DAILY@0800 05/09/15 [History Last Taken Unknown] gabapentin 800 mg tablet 1,200 mg PO TID 05/09/15 [History Last Taken Unknown] hydrochlorothiazide 25 mg tablet 25 mg PO DAILY 05/09/15 [History Last Taken Unknown] levothyroxine 150 mcg tablet 150 mcg PO DAILY 05/09/15 [History Last Taken 05/23/21 08:00] lisinopril 5 mg tablet 2.5 mg PO DAILY 05/09/15 [History Last Taken Unknown] multivitamin (Daily Multiple tablet) 1 tab PO DAILY 05/09/15 [History Last Taken Unknown] pravastatin 20 mg tablet 20 mg PO QHS 05/09/15 [History Last Taken Unknown] tamsulosin 0.4 mg capsule 0.4 mg PO DAILY 05/09/15 [History Last Taken Unknown] trazodone 50 mg tablet 50 mg PO QHS 05/09/15 [History Last Taken Unknown] pantoprazole 40 mg tablet,delayed release (Protonix) 40 mg PO BID #60 tabs 01/11/22 [Rx Last Taken Unknown] Allergy/AdvReac Type Severity Reaction Status Date / Time prednisone AdvReac Nausea Verified 11/29/22 17:49 Surgical History History of lumbar spinal fusion Hx of colonoscopy Hx of microdiscectomy Hx of repair of left rotator cuff Hx of repair of right rotator cuff Social History Smoking Status: Never smoker EXAM Physical Exam Const Vital Signs: 11/29/22 17:46 11/29/22 18:13 Temperature 97.9 F Temperature Source Temporal Pulse Rate 60 Respiratory Rate 18 Respiratory Effort Normal Non-Labored Respiratory Pattern Normal Blood Pressure 147/67 H Blood Pressure Mean 93 Pulse Ox 99 Oxygen Delivery Method Room Air Discharge Plan Triage Chief Complaint: Weakness ED Midlevel Provider: Radha Robles Dx/Rx/DC Orders Prescriptions: No Action pantoprazole [Protonix] 40 mg tablet,delayed release (DR/EC) 40 mg PO BID Qty: 60 2RF Rx Instructions: Take two times a day for eight weeks then one time a day for eight weeks then stop. multivitamin [Daily Multiple] 1 EACH tablet 1 tab PO DAILY Label Comments: vitamin trazodone 50 MG tablet 50 mg PO QHS Label Comments: sleep aspirin 325 MG tablet 175 mg PO DAILY@0800 Label Comments: heart health tamsulosin 0.4 MG capsule 0.4 mg PO DAILY Label Comments: prostate gabapentin 800 MG tablet 1,200 mg PO TID Label Comments: nerve pain levothyroxine 150 MCG tablet 150 mcg PO DAILY Label Comments: thyroid pravastatin 20 MG tablet 20 mg PO QHS Label Comments: cholesterol lisinopril 5 MG tablet 2.5 mg PO DAILY Label Comments: blood pressure hydrochlorothiazide 25 MG tablet 25 mg PO DAILY Label Comments: blood pressure Primary Care Provider: Jose Maurice Referrals: Jose Maurice MD [Primary Care Provider] -
[2022-11-29 18:56] LABS: Absolute Neutrophil Count 4.8 X10^3/uL (2.0-7.7); Basophil# 0.08 X10^3/uL; Basophil% 1.2 % (0-1); Eosinophil# 0.23 X10^3/uL; Eosinophils% 3.5 % (0-5); Hematocrit 41.1 % (40-54); Hemoglobin 12.7 g/dL (13.0-16.5); Lymphocyte % 13.9 % (19-41); Mean Corp Hgb Conc 30.9 g/dL (32-36); Mean Corpuscular Hgb 27.7 pg (27.0-32.0); Mean Corpuscular Volume 89.5 fL (80-94); Mean Platelet Vol. 10.6 fl (6.2-12.0); Monocyte# 0.49 X10^3/uL; Monocyte% 7.6 % (0-10); NRBC Flagged by Analyzer 0 % (0-5); Neutrophil # 4.76 X10^3/uL (2.7-7.7); Neutrophil % 73.5 % (47-70); Platelet Count 170 K/mm3 (150-450); RBC Distribution Width CV 16.2 % (11.6-14.6); RBC Distribution Width SD 53.5 fl (35.1-43.9); Red Blood Count 4.59 M/mm3 (4.6-6.2); White Blood Count 6.5 K/mm3 (4.4-11.0)
--- NOTE | 2022-11-29 19:06 | EX.ED.DYSGE1 ---
HPI <YOVANY Gallo - Last Filed: 11/29/22 20:57> History of Present Illness Chief Complaint: Weakness Narrative Narrative: Patient presenting today due to decreased energy and fatigue that he has had for the past few days. He called his PCP and they advised him to come to the emergency department to be tested for pneumonia and a UTI. He admits to shortness of breath on exertion that he has had chronically for several months, does not feel worse in any way. He does not have a cough or shortness of breath at rest. He reports nasal congestion that he has had for several weeks. He denies any fever, chills, abdominal pain,chest pain, nausea, vomiting, urinary symptoms. PMH includes peripheral neuropathy and a history of a stroke. PFSH <YOVANY Gallo - Last Filed: 11/29/22 20:57> PFSH Medical History Arthritis Back pain Bladder disease Cancer Cardiology follow-up encounter Difficulty swallowing Easy bruising Esophageal dysphagia High cholesterol History of edema History of pain when walking History of stress test Hx of bladder cancer Hypertension Injury of head and neck Non-smoker Restless legs Syncope Thyroid disease TIA (transient ischemic attack) Wears glasses Home Medications aspirin 325 mg tablet 175 mg PO DAILY@0800 05/09/15 [History Last Taken Unknown] gabapentin 800 mg tablet 1,200 mg PO TID 05/09/15 [History Last Taken Unknown] hydrochlorothiazide 25 mg tablet 25 mg PO DAILY 05/09/15 [History Last Taken Unknown] levothyroxine 150 mcg tablet 150 mcg PO DAILY 05/09/15 [History Last Taken 05/23/21 08:00] lisinopril 5 mg tablet 2.5 mg PO DAILY 05/09/15 [History Last Taken Unknown] multivitamin (Daily Multiple tablet) 1 tab PO DAILY 05/09/15 [History Last Taken Unknown] pravastatin 20 mg tablet 20 mg PO QHS 05/09/15 [History Last Taken Unknown] tamsulosin 0.4 mg capsule 0.4 mg PO DAILY 05/09/15 [History Last Taken Unknown] trazodone 50 mg tablet 50 mg PO QHS 05/09/15 [History Last Taken Unknown] pantoprazole 40 mg tablet,delayed release (Protonix) 40 mg PO BID #60 tabs 01/11/22 [Rx Last Taken Unknown] gabapentin 600 mg tablet 600 mg PO BID 2 days #4 tabs 11/29/22 [Rx Last Taken Unknown] gabapentin 600 mg tablet 600 mg PO BID 2 days #4 tabs 11/29/22 [Rx Last Taken Unknown] Allergy/AdvReac Type Severity Reaction Status Date / Time prednisone AdvReac Nausea Verified 11/29/22 17:49 Surgical History History of lumbar spinal fusion Hx of colonoscopy Hx of microdiscectomy Hx of repair of left rotator cuff Hx of repair of right rotator cuff Social History Smoking Status: Never smoker ROS <YOVANY Gallo - Last Filed: 11/29/22 20:57> ROS ED Constitutional Constitutional ED: Denies chills or fever(s) ENT ENT ED: Denies rhinorrhea or sore throat Cardiovascular Cardiovascular: Denies chest pain or palpitations Respiratory/Chest Respiratory/Chest: Reports dyspnea on exertion; Denies cough or dyspnea Gastrointestinal Gastrointestinal: Denies abdominal pain, nausea or vomiting Genitourinary Genitourinary ED: Denies dysuria, hematuria or urinary urgency Musculoskeletal Musculoskeletal: Denies arthralgias or myalgias Integumentary Denies abscess, Abrasions or rash Neurologic Neurologic: Reports weakness; Denies confusion or dizziness Psychiatric Psychiatric: Denies anxiety or depression EXAM <YOVANY Gallo - Last Filed: 11/29/22 20:57> Physical Exam Const Vital Signs: 11/29/22 17:46 11/29/22 18:13 11/29/22 21:10 Temperature 97.9 F Temperature Source Temporal Pulse Rate 60 54 L Respiratory Rate 18 19 H Respiratory Effort Normal Non-Labored Respiratory Pattern Normal Blood Pressure 147/67 H 139/75 H Blood Pressure Mean 93 96 Pulse Ox 99 97 Oxygen Delivery Method Room Air 11/29/22 21:10 Temperature Temperature Source Pulse Rate 56 L Respiratory Rate 19 H Respiratory Effort Respiratory Pattern Blood Pressure 139/75 H Blood Pressure Mean Pulse Ox 97 Oxygen Delivery Method Positive well nourished, well developed and no apparent distress General Appearance ED: well developed HEENT Reports normocephalic and head/scalp atraumatic Mouth ED: Yes moist mucous membranes normal Eyes PERRL and EOMs intact bilaterally Neck full ROM and supple Chest Wall inspection of chest normal Resp normal respiratory effort and clear to auscultation bilaterally Cardio regular rate and regular rhythm GI soft to palpation, non-tender, non-distended and no masses Back/Spine normal ROM and normal to inspection Extremity normal to inspection and full ROM Neuro oriented x3, CN's II-XII intact bilaterally, moves all extremities, no focal motor deficits and no sensory deficits noted Sensorium / Orientation: awake and alert Psych mental status grossly normal and thought process normal Skin no rashes or lesions noted and no wounds <Dr. Jonh Flores, DO - Last Filed: 11/29/22 22:41> Physical Exam Const Vital Signs: 11/29/22 17:46 11/29/22 18:13 11/29/22 21:10 Temperature 97.9 F Temperature Source Temporal Pulse Rate 60 54 L Respiratory Rate 18 19 H Respiratory Effort Normal Non-Labored Respiratory Pattern Normal Blood Pressure 147/67 H 139/75 H Blood Pressure Mean 93 96 Pulse Ox 99 97 Oxygen Delivery Method Room Air 11/29/22 21:10 Temperature Temperature Source Pulse Rate 56 L Respiratory Rate 19 H Respiratory Effort Respiratory Pattern Blood Pressure 139/75 H Blood Pressure Mean Pulse Ox 97 Oxygen Delivery Method MDM <Radha Robles PA - Last Filed: 11/29/22 20:57> [facility] Narrative Medical decision making narrative: Patient presenting today with generalized weakness that he has had for the past few days. He is well-appearing and in no acute distress. Vitals are unremarkable, he is afebrile. He is not complaining of any chest pain, abdominal pain, shortness of breath. Labs to be obtained to rule leukocytosis, anemia, electrolyte abnormality, ROSEANNE. Labs overall are full, BUN slightly elevated but is consistent with prior laboratory results. UA negative for UTI. Chest x-ray obtained to rule out infiltrate and is negative for any acute findings. EKG obtained to rule out arrhythmia. He ran out of his gabapentin had worsening tingling in his toes from his neuropathy. I will give him a dose here and short duration for home. He thinks that he will be getting his prescription in the mail tomorrow. Overall, patient's work-up is unremarkable. I encouraged him to follow-up with his PCP and return for any worsening of symptoms. He will be discharged home in stable condition and is comfortable with plan. Lab Data Attestation: I reviewed the patient's lab results. Lab results narrative: Hemoglobin 12.7, BUN 21 Labs: Laboratory Results - last 24 hr 11/29/22 11/29/22 11/29/22 18:00 18:00 20:00 WBC 6.5 RBC 4.59 L Hgb 12.7 L Hct 41.1 MCV 89.5 MCH 27.7 MCHC 30.9 L RDW Std Deviation 53.5 H RDW Coeff of Alessandra 16.2 H Plt Count 170 MPV 10.6 Immature Gran % (Auto) 0.300 Neut % (Auto) 73.5 H Lymph % (Auto) 13.9 L [place] % (Auto) 7.6 Eos % (Auto) 3.5 Baso % (Auto) 1.2 H Absolute Neuts (auto) 4.8 Absolute Lymphs (auto) 0.90 Nucleated RBC % 0 Sodium 142 Potassium 4.0 Chloride 110 H Carbon Dioxide 27.0 Anion Gap 5 BUN 21 H Creatinine 0.81 Estim Creat Clear Calc 73.60 Est GFR (MDRD) Af Amer 117 Est GFR (MDRD) Non-Af 97 BUN/Creatinine Ratio 26.0 H Glucose 92 Calcium 8.7 Urine Color Yellow Urine Clarity Clear Urine pH 6.0 Ur Specific [place] 1.015 Urine Protein Negative Urine Glucose (UA) Normal Urine Ketones Negative Urine Occult Blood Negative Urine Nitrite Negative Urine Bilirubin Negative Urine Urobilinogen 1 H Ur Leukocyte Esterase Negative Urine RBC 0 SEEN Urine WBC 0 SEEN Ur Squamous Epith Cells 0-5 SEEN Urine Bacteria 0 SEEN Urine Mucus RARE Radiography X-Ray: Read by ED Physician and Read by Radiologist Diagnostic Testing: Clinical Impression(s) from Imaging Studies Chest X-Ray 11/29/22 18:42 IMPRESSION: Normal x-ray examination of the chest. Electronically Signed: Demetri Mari MD at 19:01 EDT , EKG Initial EKG: Comments: 50 bpm, junctional rhythm, no ST elevation. Reviewed and interpreted by attending ED physician. <Dr. Jonh Flores, DO - Last Filed: 11/29/22 22:41> MDM Lab Data Labs: Laboratory Results - last 24 hr 11/29/22 11/29/22 11/29/22 18:00 18:00 20:00 WBC 6.5 RBC 4.59 L Hgb 12.7 L Hct 41.1 MCV 89.5 MCH 27.7 MCHC 30.9 L RDW Std Deviation 53.5 H RDW Coeff of Alessandra 16.2 H Plt Count 170 MPV 10.6 Immature Gran % (Auto) 0.300 Neut % (Auto) 73.5 H Lymph % (Auto) 13.9 L [place] % (Auto) 7.6 Eos % (Auto) 3.5 Baso % (Auto) 1.2 H Absolute Neuts (auto) 4.8 Absolute Lymphs (auto) 0.90 Nucleated RBC % 0 Sodium 142 Potassium 4.0 Chloride 110 H Carbon Dioxide 27.0 Anion Gap 5 BUN 21 H Creatinine 0.81 Estim Creat Clear Calc 73.60 Est GFR (MDRD) Af Amer 117 Est GFR (MDRD) Non-Af 97 BUN/Creatinine Ratio 26.0 H Glucose 92 Calcium 8.7 Urine Color Yellow Urine Clarity Clear Urine pH 6.0 Ur Specific [place] 1.015 Urine Protein Negative Urine Glucose (UA) Normal Urine Ketones Negative Urine Occult Blood Negative Urine Nitrite Negative Urine Bilirubin Negative Urine Urobilinogen 1 H Ur Leukocyte Esterase Negative Urine RBC 0 SEEN Urine WBC 0 SEEN Ur Squamous Epith Cells 0-5 SEEN Urine Bacteria 0 SEEN Urine Mucus RARE Radiography Diagnostic Testing: Clinical Impression(s) from Imaging Studies Chest X-Ray 11/29/22 18:42 IMPRESSION: Normal x-ray examination of the chest. Electronically Signed: Demetri Mari MD at 19:01 EDT , Treatment and Re-Evaluation :: I have personally performed a face to face assessment of the patient and have reviewed the VALENTE Note. I performed a substantive portion of the visit including all aspects of the following. My ren findings include: History: Patient presents with generalized weakness that has been getting worse over the past few days. Patient denies any chest pain or shortness of breath. Patient denies any nausea or vomiting. Patient denies any headaches. Patient denies any visual changes. Patient denies any unilateral weakness. Patient states his weakness is all over. Patient denies any fevers or chills. was concerned because he has areas over his posterior shoulder that are red. Patient denies any pain over this area. Patient denies any discharge or drainage. Exam: Vital signs are stable. Patient is afebrile. Patient is in no acute distress. Oral mucosa is pink moist. Neck is supple. Trachea is midline. There is no JVD. Heart was regular rate and rhythm. Lungs are clear and equal bilaterally. Abdomen is soft. Bowel sounds are normal. There is no tenderness. Skin is warm and dry. There is some mild patchy erythematous rash over the posterior aspect of the right shoulder and scapular area. There are no vesicles or pustules. There is no discharge or drainage. There is no induration. There is no evidence of any abscess. Medical Decision Making: Differential diagnosis includes infection, electrolyte abnormality, cardiac dysrhythmia, cardiac ischemia, anemia, debility, and deconditioning. CBC will be obtained to assess for leukocytosis and anemia. Basic metabolic profile will be obtained to assess for electrolyte abnormality and renal function. Urinalysis will be obtained to assess for urinary tract infection and hematuria. Chest x-ray will be obtained to assess for pneumonia. EKG will be obtained to assess for cardiac dysrhythmia and cardiac ischemia. Portable 1 view chest x-ray was obtained. On my independent interpretation, lung dasilva are clear. There is normal cardiac silhouette. Bony thorax is normal. There is no acute process noted. Radiologist also interpreted the x-ray and agrees. EKG was obtained. On my independent interpretation, it showed a normal sinus rhythm with a rate of 50. LA interval, QRS interval, and QTc intervals were all normal. [place] was normal. There are no acute ST or T wave changes. CBC was reviewed and was essentially within normal limits. Basic metabolic profile was reviewed and was within normal limits. Urinalysis was reviewed. There is no evidence of urinary tract infection or hematuria. Patient was able to ambulate here in the emergency department without difficulty. Patient was advised of his findings. Patient was instructed to follow-up with his care physician in 5 to 7 days. Patient understood and was agreeable with the plan. All questions were answered. Discharge Plan Triage Chief Complaint: Weakness ED Midlevel Provider: Radha Robles ED Provider: Jonh Flores Dx/Rx/DC Orders Clinical Impression: Generalized weakness Instructions: ED Weakness (Uncertain Cause) Prescriptions: New gabapentin 600 mg tablet 600 mg PO BID 2 Days Qty: 4 0RF gabapentin 600 mg tablet 600 mg PO BID 2 Days Qty: 4 0RF No Action pantoprazole [Protonix] 40 mg tablet,delayed release (DR/EC) 40 mg PO BID Qty: 60 2RF Rx Instructions: Take two times a day for eight weeks then one time a day for eight weeks then stop. multivitamin [Daily Multiple] 1 EACH tablet 1 tab PO DAILY Label Comments: vitamin trazodone 50 MG tablet 50 mg PO QHS Label Comments: sleep aspirin 325 MG tablet 175 mg PO DAILY@0800 Label Comments: heart health tamsulosin 0.4 MG capsule 0.4 mg PO DAILY Label Comments: prostate gabapentin 800 MG tablet 1,200 mg PO TID Label Comments: nerve pain levothyroxine 150 MCG tablet 150 mcg PO DAILY Label Comments: thyroid pravastatin 20 MG tablet 20 mg PO QHS Label Comments: cholesterol lisinopril 5 MG tablet 2.5 mg PO DAILY Label Comments: blood pressure hydrochlorothiazide 25 MG tablet 25 mg PO DAILY Label Comments: blood pressure Primary Care Provider: Jose Maurice Referrals: Jose Maurice MD [Primary Care Provider] - 3-5 Days Activity Restrictions/Additional Instructions: Please return for any worsening of symptoms follow-up with your PCP. Disposition Disposition: Home, Self Care Discharge Date/Time: 11/29/22 21:11
[2022-11-29 19:09] LABS: Anion Gap 5 (5-15); BUN 21 mg/dL (7-18); Calcium,Total 8.7 mg/dL (8.5-10.1); Chloride 110 mmol/L (98-107); Creatinine, Serum 0.81 mg/dL (0.70-1.30); EST Glomerular Filtration Rate 97 mL/min (>60); Est Glom Filt Rate - Afr Amer 117 mL/min (>60); Glucose 92 mg/dL (74-106); Sodium Level 142 mmol/L (136-145)
[2022-11-29 20:15] LABS: Bacteria 0 SEEN /hpf (None Seen); Red Blood Cells-Urine 0 SEEN /hpf (0-5); White Blood Cells 0 SEEN /hpf (0-5)
[2022-11-29 20:21] LABS: Color, Urine Yellow (Yellow); Glucose, Dipstick Normal (Normal); Ketone-Dipstick Negative (Negative); Leukocyte Esterase-Dipstick Negative /ul (Negative); Nitrite-Dipstick Negative (Negative); Occult Blood-Urine Negative /ul (Negative); Protein-Dipstick Negative (Negative); Specific Gravity, Urine 1.015 (1.002-1.030); Urine Bilirubin Dipstick Negative (Negative); Urine Clarity Clear (Clear); Urine Urobilinogen 1 mg/dl (Normal)
[2022-11-29 20:41] LABS: Mucous, Urine RARE /hpf (<or=2+); Squamous Epithelial Cells - UA 0-5 SEEN /hpf (0-5)
[2022-11-29] MEDS: Gabapentin 300 MG Capsule 600 MG PO (21:04)
[2022-11-29 21:10] VITALS: BP 139/75; PULSE 54; PULSE 56; RESP 19; O2SAT 97
== END 2022-11-29 21:11 | disposition home or self-care (01) ==
PROVIDERS: Physician Assistant; Emergency Provider Emergency Medicine; PCP Family Medicine; Visit Provider Emergency Medicine
DX: R53.1 Weakness (principal); I10 Essential (primary) hypertension; E78.00 Pure hypercholesterolemia, unspecified; G62.9 Polyneuropathy, unspecified; Z79.82 Long term (current) use of aspirin; Z79.899 Other long term (current) drug therapy; Z86.73 Personal history of transient ischemic attack (TIA), and cerebral infarction without residual deficits
CPT/HCPCS: 71045; 80048; 81001; 85025; 93005; 99284; A4216

== ENCOUNTER 2023-12-16 04:40 | Emergency (ER) | payer MEDICARE, SELFPAY ==
--- NOTE | 2023-12-16 07:57 | CT_ITS ---
INDICATION: RIGHT FLANK EXAMINATION: CT Abdomen And Pelvis W/ Contrast Injection TECHNIQUE: Helically acquired images were obtained of the abdomen and pelvis with sagittal and coronal reconstructed images. Individualized dose optimization techniques were used for this CT. IV contrast dosage and agent: 100 mL of [id number]. Oral contrast: None. COMPARISON: None. FINDINGS: VESSELS: No abdominal aortic aneurysm or dissection. LIVER: No evidence of a mass. No intrahepatic or extrahepatic biliary duct dilation. GALLBLADDER: Small calcified stone. No evidence of cholecystitis. PANCREAS: No focal solid or cystic mass. No evidence of pancreatitis. SPLEEN: Normal. ADRENAL GLANDS: Normal. KIDNEYS AND URETERS: No urinary tract stone. No hydronephrosis or hydroureter. No significant asymmetric perinephric stranding. URINARY BLADDER: Unremarkable. BOWEL: No evidence of diverticulosis or diverticulitis. Appendix not identified. No evidence of bowel obstruction. REPRODUCTIVE ORGANS: No evidence of a pelvic mass. PERITONEUM: No intraabdominal free fluid or free air. LYMPH NODES: No pathologically enlarged mesenteric or retroperitoneal lymph nodes. ABDOMINAL WALL: Fat-containing left inguinal hernia. BONES: No acute abnormality. LOWER CHEST: Visualized lung bases are unremarkable. CT/Abdomen/Pelvis WITH Contrast IMPRESSION: 1. No acute abnormality. 2. No urinary tract stone or obstruction. 3. Cholelithiasis with no evidence of cholecystitis. Electronically Signed: Jose Haynes DO at 6:16 EDT ,
--- NOTE | 2023-12-16 08:27 | ED.VIS.GI ---
HPI HPI - GI History of Present Illness Detail of Chief Complaint: Right upper quadrant abdominal pain. Informant: patient and spouse/S.O. Abdominal Pain/Flank Pain Onset: Today and Hours Context: Gradual Onset Timing: Continuous Quality: Aching Location: RUQ Current Severity: Moderate Maximum Severity: Moderate Worsened by: Nothing Relieved by: Nothing Nausea/Vomiting/Emesis GI Symptom: Negative for Nausea or Vomiting Diarrhea/Melena/Hematochezia GI Symptom: Negative for Diarrhea, Melena or Hematochezia Associated Symptoms Associated Symptoms: Negative for Dysuria, Frequency, Hematuria or Urgency Narrative Narrative: 83-year-old male complaining of right upper quadrant abdominal pain that began around 4 AM this morning and awoke him from sleep. No prior history. No history of gallbladder disease. Denies any recent illness. Denies any recent abdominal wall trauma or injury. He denies any nausea, vomiting or diarrhea. No fever. No dysuria or hematuria. No back or flank pain. He is never had pain like this before. Pain got worse and they decided to come in the emergency department. Prior similar symptoms: No Recent Illness/Hospitalization: No PFSH PFSH Medical History Wears glasses Cancer Thyroid disease Arthritis Hx of bladder cancer Bladder disease Easy bruising Restless legs Back pain Injury of head and neck Syncope Difficulty swallowing Non-smoker TIA (transient ischemic attack) History of pain when walking History of edema History of stress test Cardiology follow-up encounter Esophageal dysphagia High cholesterol Hypertension Home Medications ?Medication ?Instructions ?Recorded ?Last Taken ?Type aspirin 325 mg tablet 175 mg PO DAILY@0800 05/09/15 Unknown History gabapentin 800 mg tablet 1,200 mg PO TID 05/09/15 Unknown History hydrochlorothiazide 25 mg tablet 25 mg PO DAILY 05/09/15 Unknown History levothyroxine 150 mcg tablet 150 mcg PO DAILY 05/09/15 05/23/21 08:00 History lisinopril 5 mg tablet 2.5 mg PO DAILY 05/09/15 Unknown History multivitamin (Daily Multiple 1 tab PO DAILY 05/09/15 Unknown History tablet) pravastatin 20 mg tablet 20 mg PO QHS 05/09/15 Unknown History tamsulosin 0.4 mg capsule 0.4 mg PO DAILY 05/09/15 Unknown History trazodone 50 mg tablet 50 mg PO QHS 05/09/15 Unknown History pantoprazole 40 mg tablet,delayed 40 mg PO BID #60 tabs 01/11/22 Unknown Rx release (Protonix) gabapentin 600 mg tablet 600 mg PO BID 2 days #4 tabs 11/29/22 Unknown Rx gabapentin 600 mg tablet 600 mg PO BID 2 days #4 tabs 11/29/22 Unknown Rx Allergy/AdvReac Type Severity Reaction Status Date / Time prednisone AdvReac Nausea Verified 11/29/22 17:49 Surgical History Hx of colonoscopy Hx of repair of left rotator cuff Hx of repair of right rotator cuff Hx of microdiscectomy History of lumbar spinal fusion Social History Smoking Status: Never smoker ROS ROS ED ROS Narrative Right upper quadrant abdominal pain. No other symptoms. Review of Systems ROS Unobtainable: Denies due to encephalopathy Constitutional Constitutional ED: Denies chills or fever(s) ENT ENT ED: Denies ear pain Cardiovascular Cardiovascular: Denies chest pain or palpitations Respiratory/Chest Respiratory/Chest: Denies cough or dyspnea Gastrointestinal Gastrointestinal: Reports abdominal pain; Denies constipation, diarrhea, melena, nausea or vomiting Genitourinary Genitourinary ED: Denies dysuria or hematuria Musculoskeletal Musculoskeletal: Denies arthralgias Integumentary Denies abscess Neurologic Neurologic: Denies headache(s) Psychiatric Psychiatric: Denies anxiety or depression Endocrine Endocrinology: Denies polydipsia, polyphagia or polyuria Hematologic/Lymphatic Hematologic/Lymphatic: Denies easy bleeding, easy bruising or lymphadenopathy Allergic/Immunologic Allergic/Immunologic ED: Denies mouth swelling, tongue swelling or urticaria EXAM Physical Exam Narrative Exam Narrative: 83-year-old male vital signs are stable afebrile. He does not look septic or toxic. He is in no distress. H EENT exam unremarkable. Neck nontender no lymphadenopathy. Lungs clear to auscultation bilaterally. Heart regular rate and rhythm no murmur. Abdomen nondistended normal bowel sounds no peritoneal signs. Mild right upper quadrant tenderness to deep palpation. Right lower quadrant completely nontender. No hernia or mass. No obstruction. Back nontender. Moving all 4 extremities. Patient is awake alert. Answering questions following commands. Const Positive well nourished and well developed; Negative for cachectic, contractures or unkempt General Appearance ED: well developed and NAD; Negative for unkempt, cachectic, contractures or pallor Nutritional Appearance: Negative for cachectic HEENT Reports moist mucous membranes; Denies dry mucous membranes normocephalic and atraumatic; Negative for trauma or tenderness Mouth ED: No dry mucous membranes Mouth: No dry mucous membranes Eyes PERRL and EOMs intact bilaterally General Eye ED: Negative for pale conjunctiva, scleral icterus or other Neck no lymphadenopathy, supple and no JVD General: Negative for tenderness Carotids: Negative for other Lymph Lymphatic: Negative for other Resp normal respiratory effort and clear to auscultation bilaterally Effort and Inspection: Negative for respiratory distress Auscultation: Negative for rales, rhonchi, wheezes or diminished lung sounds Cardio regular rate, regular rhythm, S1 normal heart sound, S2 normal heart sound and no murmurs Rate: Negative for bradycardia or tachycardic Rhythm: Negative for abnormal rhythm GI non-distended and no masses; Negative for non-tender GI Narrative: Right upper quadrant tenderness only. Auscultation: normoactive bowel sounds Palpation: soft and tender; Negative for guarding, hernia, mass, pulsatile mass or rebound tenderness present Back/Spine no CVA tenderness General Back: Negative for CVA tenderness Cervical Spine: Negative for cervical spine tenderness Thoracic Spine / Upper Back: Negative for thoracic spinal tenderness Lumbar Spine / Lower Back: Negative for lumbar spinal tenderness Coccyx: Negative for other Extremity General Extremety ED: Negative for edema, tenderness or other findings General Extremity: Negative for edema or other findings Neuro CN's II-XII intact bilaterally and moves all extremities Sensorium / Orientation: alert, oriented to person, oriented to place and oriented to time; Negative for orientation impaired, confused, lethargic or stuporous Motor Exam: strength 5/5 throughout Psych mental status grossly normal and thought process normal Appearance: Negative for unkempt Attitude: No agitated Mood & Affect: Negative for depressed, anxious or tearful Skin no wounds General Skin Exam: Negative for jaundice or pallor Lesions: no lesions Rashes: no rashes Trauma: Negative for abrasion Nails: Negative for discolored MDM MDM MDM Narrative Medical decision making narrative: 83-year-old male with right upper quadrant abdominal pain this morning. No prior history. No prior pain like this. He denies any other symptoms. He has had no fever or vomiting. No weight change. No dysuria. Clinically this may be his gallbladder. CAT scan labs are being obtained. He initially did not want anything for pain and his pain got worse he was given 6 mg of morphine and 4 Zofran his pain is completely resolved. Repeat exam at 830 this morning patient's abdomen is benign. His pain resolved with the morphine. I went over all test with both he is and his son at bedside. Will work to obtain an ultrasound to rule out any gallbladder wall thickening or pericholecystic fluid. As well as has not seen patient's other labs are normal. He has no signs of infection or biliary obstruction. Will be discharged home with outpatient follow-up. I did give him specific instructions that if he had recurrent pain, fever or intractable vomiting to return. History & Record Review Discussion w/independent historian: Family Additional record(s) reviewed:: Prior inpatient record, Prior outpatient record, Prior ED visit and Prior labs Lab Data Attestation: I reviewed the patient's lab results. Lab results narrative: CBC shows normal white count 7. H&H 13 and 42. Platelets 165. Electrolytes unremarkable. Gap of 5. Liver enzymes normal. glucose 140. Lipase 50. UA normal. CAT scan of the abdomen shows cholelithiasis but no evidence of cholecystitis. Otherwise no acute abnormality. Radiography Diagnostic Testing: Clinical Impression(s) from Imaging Studies Abdomen/Pelvis CT 12/16/23 07:57 IMPRESSION: 1. No acute abnormality. 2. No urinary tract stone or obstruction. 3. Cholelithiasis with no evidence of cholecystitis. Electronically Signed: Jose Haynes DO at 6:16 EDT , Discharge Plan Triage ED Provider: Sunday Cartagena Dx/Rx/DC Orders Clinical Impression: Abdominal pain, Biliary colic, History of stroke, History of bladder cancer Instructions: Abdominal Pain, ED Gallstones with Biliary Colic Prescriptions: No Action pantoprazole [Protonix] 40 mg tablet,delayed release (DR/EC) 40 mg PO BID Qty: 60 2RF Rx Instructions: Take two times a day for eight weeks then one time a day for eight weeks then stop. multivitamin [Daily Multiple] 1 EACH tablet 1 tab PO DAILY Patient Comments: vitamin trazodone 50 MG tablet 50 mg PO QHS Patient Comments: sleep aspirin 325 MG tablet 175 mg PO DAILY@0800 Patient Comments: heart health tamsulosin 0.4 MG capsule 0.4 mg PO DAILY Patient Comments: prostate gabapentin 800 MG tablet 1,200 mg PO TID Patient Comments: nerve pain levothyroxine 150 MCG tablet 150 mcg PO DAILY Patient Comments: thyroid pravastatin 20 MG tablet 20 mg PO QHS Patient Comments: cholesterol lisinopril 5 MG tablet 2.5 mg PO DAILY Patient Comments: blood pressure hydrochlorothiazide 25 MG tablet 25 mg PO DAILY Patient Comments: blood pressure gabapentin 600 mg tablet 600 mg PO BID 2 Days Qty: 4 0RF gabapentin 600 mg tablet 600 mg PO BID 2 Days Qty: 4 0RF Primary Care Provider: Jose Maurice Referrals: Stuart Willson MD [Med Staff - Active Staff] - As Needed Jose Maurice MD [Primary Care Provider] - As soon as possible Activity Restrictions/Additional Instructions: He had right upper quadrant abdominal pain this morning. Most likely caused by gallstones in your gallbladder. All your labs look good. Follow-up with your primary care physician as needed. If you have recurrent pain, fever or intractable vomiting you need to return to have this evaluated. The gallbladder can get obstructed or infected and needs to be taken care of at that time. Print Language: Kazakh Disposition Disposition: Home, Self Care
--- NOTE | 2023-12-16 08:51 | US_ITS ---
STUDY: ABDOMINAL ULTRASOUND - RIGHT UPPER QUADRANT REASON FOR VISIT: Male, 83 years old rut pain TECHNIQUE: Ultrasound evaluation of the right upper quadrant was performed with real-time and static sanders-scale imaging. TECHNICAL QUALITY: Limited. Examination limited by bowel gas. COMPARISON: Comparison is made with prior CT angiogram of pelvis done earlier today. FINDINGS: Liver: The liver is enlarged and measures 18.2 cm. There is normal echogenicity of the liver. The bile ducts are within normal limits. There is hepatic color flow. The direction of portal flow is hepatopetal. There is no demonstrated mass lesion. Gallbladder: Normal distended gallbladder. The gallbladder wall is thickened and measures 5 mm. There is a negative sonographic Bella''s sign. There is no pericholecystic fluid. Question small gallstone. Common Bile Duct (C.B.D.): The common bile duct measures 1.9 mm. Pancreas: Normal size of the head, body and tail of the pancreas. There is increased echogenicity of the pancreas. There is no demonstrated pancreatic mass or cyst. Right Kidney: Normal size of the right kidney. The right kidney measures 12.8 cm x 6.1 cm x 5.3 cm. Normal renal cortex. The right cortex measures 1.4 cm. Multiple right renal cysts. The largest cyst measures 2.8 cm x 2.7 cm x 1.9 cm. There is no right hydronephrosis. US/Gallbladder IMPRESSION: Hepatomegaly. Gallbladder wall thickening. Questionable small gallstone. Electronically Signed: Akil Blount MD at 10:37 EDT ,
[2023-12-16 08:55] LABS: BUN 26 mg/dL (7-18); BUN/Creat Ratio 28.6 RATIO (10-20); Creatinine, Serum 0.91 mg/dL (0.70-1.30); EST Glomerular Filtration Rate 84 mL/min (>60); Est Glom Filt Rate - Afr Amer 102 mL/min (>60); Glucose 140 mg/dL (74-106)
[2023-12-16 08:55] LABS: Bacteria 0 SEEN /hpf (None Seen); Mucous, Urine 0 SEEN /hpf (<or=2+); Red Blood Cells-Urine 0 SEEN /hpf (0-5); Squamous Epithelial Cells - UA 0 SEEN /hpf (0-5)
[2023-12-16 08:56] LABS: ALB/GLOB Ratio 1.1 RATIO (0.9-2.4); AST(SGOT) 12 U/L (15-37); Alanine Aminotransfer ALT/SGPT 16 U/L (16-61); Albumin, Serum 3.2 g/dL (3.2-5.0); Alkaline Phosphatase 84 U/L (45-117); Anion Gap 5 (5-15); Calcium,Total 8.6 mg/dL (8.5-10.1); Chloride 111 mmol/L (98-107); Lipase 50 U/L (13-75); Potassium 4.1 mmol/L (3.5-5.1); Protein, Total 6.2 g/dL (6.4-8.2); Sodium Level 143 mmol/L (136-145)
[2023-12-16 08:57] LABS: Basophil# 0.07 X10^3/uL; Eosinophil# 0.36 X10^3/uL; Eosinophils% 5.1 % (0-5); Hematocrit 42.2 % (40-54); Hemoglobin 13.5 g/dL (13.0-16.5); Lymphocyte # 0.97 X10^3/ul (0.83-4.51); Lymphocyte % 13.7 % (19-41); Mean Corpuscular Hgb 28.5 pg (27.0-32.0); Mean Corpuscular Volume 89.2 fL (80-94); Mean Platelet Vol. 9.9 fl (6.2-12.0); Monocyte# 0.52 X10^3/uL; Monocyte% 7.3 % (0-10); Neutrophil # 5.13 X10^3/uL (2.7-7.7); Neutrophil % 72.5 % (47-70); Platelet Count 165 K/mm3 (150-450); RBC Distribution Width CV 15.8 % (11.6-14.6); RBC Distribution Width SD 51.7 fl (35.1-43.9); Red Blood Count 4.73 M/mm3 (4.6-6.2); White Blood Count 7.1 K/mm3 (4.4-11.0)
[2023-12-16 08:58] LABS: Color, Urine Yellow (Yellow); Glucose, Dipstick NEGATIVE (Normal); Ketone-Dipstick Negative (Negative); Leukocyte Esterase-Dipstick Negative /ul (Negative); Nitrite-Dipstick Negative (Negative); Occult Blood-Urine Negative /ul (Negative); Protein-Dipstick Negative (Negative); Specific Gravity, Urine 1.015 (1.002-1.030); Urine Bilirubin Dipstick Negative (Negative); Urine Clarity Clear (Clear); Urine Urobilinogen 4 mg/dl (Normal); White Blood Cells 0-5 SEEN /hpf (0-5)
[2023-12-16 12:01] VITALS: BP 142/61; PULSE 44; RESP 11; TEMP 36.2; O2SAT 97
[2023-12-16 12:27] VITALS: BP 132/78; PULSE 64; RESP 16; TEMP 37; O2SAT 99
== END 2023-12-16 12:36 | disposition home or self-care (01) ==
PROVIDERS: Emergency Provider Emergency Medicine; PCP Family Medicine; Visit Provider Emergency Medicine
DX: R10.11 Right upper quadrant pain (principal); K80.50 Calculus of bile duct without cholangitis or cholecystitis without obstruction; Z86.73 Personal history of transient ischemic attack (TIA), and cerebral infarction without residual deficits; Z85.51 Personal history of malignant neoplasm of bladder; E78.00 Pure hypercholesterolemia, unspecified; I10 Essential (primary) hypertension; Z79.899 Other long term (current) drug therapy; Z79.82 Long term (current) use of aspirin
CPT/HCPCS: 99281; 36415; 74177; 76705; 80053; 81001; 83690; 85025; 96374; 96375; 99285; Q9967; A4216; J2405

== ENCOUNTER 2024-01-03 02:49 | Emergency (ER) | payer MEDICARE, SELFPAY ==
[2024-01-03 02:51] VITALS: BP 142/75; PULSE 62; RESP 18; TEMP 36.8; O2SAT 93; BMI 39.9
[2024-01-03 02:53] VITALS: BP 142/75; PULSE 65; RESP 18; TEMP 36.8; O2SAT 95
[2024-01-03 03:07] LABS: Absolute Lymphocyte Count 1.56 X10^3/uL (0.83-4.51); Absolute Neutrophil Count 6.2 X10^3/uL (2.0-7.7); Basophil% 1.1 % (0-1); Eosinophil# 0.37 X10^3/uL; Eosinophils% 4.2 % (0-5); Hematocrit 44.1 % (40-54); Hemoglobin 13.5 g/dL (13.0-16.5); Lymphocyte # 1.56 X10^3/ul (0.83-4.51); Lymphocyte % 17.6 % (19-41); Mean Corp Hgb Conc 30.6 g/dL (32-36); Mean Corpuscular Hgb 27.3 pg (27.0-32.0); Mean Corpuscular Volume 89.3 fL (80-94); Mean Platelet Vol. 10.2 fl (6.2-12.0); Monocyte# 0.58 X10^3/uL; Monocyte% 6.6 % (0-10); NRBC Flagged by Analyzer 0 % (0-5); Neutrophil # 6.18 X10^3/uL (2.7-7.7); Neutrophil % 69.9 % (47-70); Platelet Count 186 K/mm3 (150-450); RBC Distribution Width CV 15.9 % (11.6-14.6); RBC Distribution Width SD 51.8 fl (35.1-43.9); Red Blood Count 4.94 M/mm3 (4.6-6.2); White Blood Count 8.8 K/mm3 (4.4-11.0)
[2024-01-03 03:24] LABS: ALB/GLOB Ratio 1.1 RATIO (0.9-2.4); AST(SGOT) 13 U/L (15-37); Alanine Aminotransfer ALT/SGPT 13 U/L (16-61); Albumin, Serum 3.4 g/dL (3.2-5.0); Alkaline Phosphatase 86 U/L (45-117); Anion Gap 3 (5-15); BUN 25 mg/dL (7-18); BUN/Creat Ratio 25.7 RATIO (10-20); Chloride 108 mmol/L (98-107); Creatinine, Serum 0.97 mg/dL (0.70-1.30); EST Glomerular Filtration Rate 78 mL/min (>60); Est Glom Filt Rate - Afr Amer 95 mL/min (>60); Estimated Creatinine Clearance 77.86 ml/min; Glucose 121 mg/dL (74-106); Lipase 66 U/L (13-75); Protein, Total 6.4 g/dL (6.4-8.2); Sodium Level 141 mmol/L (136-145)
--- NOTE | 2024-01-03 03:31 | CT_ITS ---
INDICATION: rlq pain EXAMINATION: CT Abdomen And Pelvis W/ Contrast Injection TECHNIQUE: Helically acquired images were obtained of the abdomen and pelvis with sagittal and coronal reconstructed images. Individualized dose optimization techniques were used for this CT. IV contrast dosage and agent: 100 mL of Isovue 300. Oral contrast: None. COMPARISON: 12/16/2023 CT. FINDINGS: VESSELS: No abdominal aortic aneurysm or dissection. LIVER: No evidence of a mass. No intrahepatic or extrahepatic biliary duct dilation. GALLBLADDER: No calcified stones. No evidence of cholecystitis. PANCREAS: No focal solid or cystic mass. No evidence of pancreatitis. SPLEEN: Normal. ADRENAL GLANDS: Normal. KIDNEYS AND URETERS: Bilateral renal stones. No hydronephrosis or hydroureter. No significant asymmetric perinephric stranding. Stable bilateral parapelvic cysts and right lower pole cortical cyst with no follow-up recommended. URINARY BLADDER: Unremarkable. BOWEL: No evidence of diverticulosis or diverticulitis. Appendix not identified. No evidence of appendicitis. No evidence of bowel obstruction. REPRODUCTIVE ORGANS: No evidence of a pelvic mass. PERITONEUM: No intraabdominal free fluid or free air. LYMPH NODES: No pathologically enlarged mesenteric or retroperitoneal lymph nodes. ABDOMINAL WALL: Fat-containing bilateral inguinal hernias. BONES: No acute abnormality. LOWER CHEST: Visualized lung bases are unremarkable. CT/Abdomen/Pelvis W IV Cont ONLY IMPRESSION: No acute abnormality. Electronically Signed: Jose Haynes DO at 5:01 EDT ,
--- NOTE | 2024-01-03 03:32 | ED.VIS.GI ---
HPI HPI - GI History of Present Illness Chief Complaint: Abd Pain Narrative Narrative: 83-year-old male presenting with right-sided abdominal pain. He points to the lower right side of his abdomen. He states he was here couple of weeks ago and had a CAT scan and an ultrasound of his gallbladder. He states he was told by the surgeon on-call that day that he did not need his gallbladder removed. His liver enzymes were normal and his lipase was normal. Patient states that last evening he last ate around 8 or 9:00. He woke up today with pain at about 2 AM. He describes it as burning and sharp. No nausea or vomiting. No diarrhea or constipation. Denies surgical history in his abdomen. [facility] Medical History Wears glasses Cancer Thyroid disease Arthritis Hx of bladder cancer Bladder disease Easy bruising Restless legs Back pain Injury of head and neck Syncope Difficulty swallowing Non-smoker TIA (transient ischemic attack) History of pain when walking History of edema History of stress test Cardiology follow-up encounter Esophageal dysphagia High cholesterol Hypertension Home Medications ?Medication ?Instructions ?Recorded ?Last Taken ?Type aspirin 325 mg tablet 175 mg PO DAILY@0800 05/09/15 Unknown History gabapentin 800 mg tablet 1,200 mg PO TID 05/09/15 Unknown History hydrochlorothiazide 25 mg tablet 25 mg PO DAILY 05/09/15 Unknown History levothyroxine 150 mcg tablet 150 mcg PO DAILY 05/09/15 05/23/21 08:00 History lisinopril 5 mg tablet 2.5 mg PO DAILY 05/09/15 Unknown History multivitamin (Daily Multiple 1 tab PO DAILY 05/09/15 Unknown History tablet) pravastatin 20 mg tablet 20 mg PO QHS 05/09/15 Unknown History tamsulosin 0.4 mg capsule 0.4 mg PO DAILY 05/09/15 Unknown History trazodone 50 mg tablet 50 mg PO QHS 05/09/15 Unknown History pantoprazole 40 mg tablet,delayed 40 mg PO BID #60 tabs 01/11/22 Unknown Rx release (Protonix) gabapentin 600 mg tablet 600 mg PO BID 2 days #4 tabs 11/29/22 Unknown Rx gabapentin 600 mg tablet 600 mg PO BID 2 days #4 tabs 11/29/22 Unknown Rx Allergy/AdvReac Type Severity Reaction Status Date / Time prednisone AdvReac Nausea Verified 01/03/24 02:53 Surgical History Hx of colonoscopy Hx of repair of left rotator cuff Hx of repair of right rotator cuff Hx of microdiscectomy History of lumbar spinal fusion Social History Smoking Status: Never smoker ROS ROS ED Constitutional Constitutional ED: Denies chills, fever(s) or sweats Eyes Eyes: Denies blurry vision or change in vision ENT ENT ED: Denies ear pain or sore throat Cardiovascular Cardiovascular: Denies chest pain, palpitations or racing heartbeat Respiratory/Chest Respiratory/Chest: Denies cough, dyspnea or sputum Gastrointestinal Gastrointestinal: Reports abdominal pain; Denies constipation, diarrhea, nausea or vomiting Genitourinary Genitourinary ED: Denies dysuria, hematuria or urinary frequency Musculoskeletal Musculoskeletal: Denies arthralgias, myalgias or neck pain Integumentary Denies abscess, Abrasions or rash Neurologic Neurologic: Denies headache(s), paresthesias or weakness Psychiatric Psychiatric: Denies anxiety, depression, suicidal ideation or suicidal thoughts Endocrine Endocrinology: Denies polydipsia or polyuria EXAM Physical Exam Const Vital Signs: 01/03/24 02:51 01/03/24 02:53 01/03/24 03:53 Temperature 98.3 F 98.3 F 96.9 F L Temperature Source Oral Oral Temporal Pulse Rate 62 65 57 L Respiratory Rate 18 18 17 Blood Pressure 142/75 H 142/75 H 138/76 H Blood Pressure Mean 97 97 96 Pulse Ox 93 95 92 Oxygen Delivery Method Room Air Room Air Room Air 01/03/24 04:49 Temperature Temperature Source Pulse Rate 56 L Respiratory Rate 16 Blood Pressure 138/76 H Blood Pressure Mean 96 Pulse Ox 93 Oxygen Delivery Method Room Air MDM MDM MDM Narrative Medical decision making narrative: Patient presenting with abdominal pain patient presenting with right flank pain. Differential includes colitis, diverticulitis, gastritis, pancreatitis, acute cholecystitis, constipation, appendicitis, UTI, pyelonephritis, calculi, ureteral calculi, obstruction, malignancy, dehydration, electrolyte abnormalities. CBC will be obtained to assess white blood cell count, hemoglobin, platelets. CMP to assess renal function, electrolytes, liver function, glucose. Lipase to assess for pancreatitis. Urinalysis to assess for UTI. CBC shows normal white blood cell count of 8.8. Hemoglobin 13.5. Platelets are normal at 186. Renal function and electrolytes within normal limits. LFTs are normal. Lipase is normal. CT of the abdomen pelvis is negative for any acute findings. I recommended to the patient that he follow-up with Dr. Lee for further workup of his gallbladder if he still has concern this. His liver enzymes and lipase are negative and the CT does not show any evidence of cholecystitis. His tenderness is much lower than his gallbladder as well. Discussed this with him at length. Return precautions were discussed. Impression: 1. Abdominal pain Lab Data Attestation: I reviewed the patient's lab results. Labs: Laboratory Results - last 24 hr 01/03/24 01/03/24 02:59 04:40 WBC 8.8 RBC 4.94 Hgb 13.5 Hct 44.1 MCV 89.3 MCH 27.3 MCHC 30.6 L RDW Std Deviation 51.8 H RDW Coeff of Alessandra 15.9 H Plt Count 186 MPV 10.2 Immature Gran % (Auto) 0.600 Neut % (Auto) 69.9 Lymph % (Auto) 17.6 L [place] % (Auto) 6.6 Eos % (Auto) 4.2 Baso % (Auto) 1.1 H Absolute Neuts (auto) 6.2 Absolute Lymphs (auto) 1.56 Nucleated RBC % 0 Sodium 141 Potassium 4.0 Chloride 108 H Carbon Dioxide 30.0 Anion Gap 3 L BUN 25 H Creatinine 0.97 Estim Creat Clear Calc 77.86 Est GFR (MDRD) Af Amer 95 Est GFR (MDRD) Non-Af 78 BUN/Creatinine Ratio 25.7 H Glucose 121 H Calcium 9.0 Total Bilirubin 0.50 AST 13 L ALT 13 L Alkaline Phosphatase 86 Total Protein 6.4 Albumin 3.4 Globulin 3.0 Albumin/Globulin Ratio 1.1 Lipase 66 Urine Color Yellow Urine Clarity Clear Urine pH 5.0 Ur Specific [place] 1.015 Urine Protein Negative Urine Glucose (UA) Normal Urine Ketones Negative Urine Occult Blood Negative Urine Nitrite Negative Urine Bilirubin Negative Urine Urobilinogen 4 H Ur Leukocyte Esterase Negative Urine RBC 0 SEEN Urine WBC 0 SEEN Ur Squamous Epith Cells 0 SEEN Urine Bacteria 0 SEEN Urine Mucus 0 SEEN Radiography Diagnostic Testing: Clinical Impression(s) from Imaging Studies Abdomen/Pelvis CT 01/03/24 03:31 IMPRESSION: No acute abnormality. Electronically Signed: Jose Haynes at 5:01 EDT , Discharge Plan Triage Chief Complaint: Abd Pain ED Provider: Crescencio Caldwell Dx/Rx/DC Orders Instructions: ED Abdominal Pain Unkn Cause Male... Prescriptions: No Action pantoprazole [Protonix] 40 mg tablet,delayed release (DR/EC) 40 mg PO BID Qty: 60 2RF Rx Instructions: Take two times a day for eight weeks then one time a day for eight weeks then stop. multivitamin [Daily Multiple] 1 EACH tablet 1 tab PO DAILY Patient Comments: vitamin trazodone 50 MG tablet 50 mg PO QHS Patient Comments: sleep aspirin 325 MG tablet 175 mg PO DAILY@0800 Patient Comments: heart health tamsulosin 0.4 MG capsule 0.4 mg PO DAILY Patient Comments: prostate gabapentin 800 MG tablet 1,200 mg PO TID Patient Comments: nerve pain levothyroxine 150 MCG tablet 150 mcg PO DAILY Patient Comments: thyroid pravastatin 20 MG tablet 20 mg PO QHS Patient Comments: cholesterol lisinopril 5 MG tablet 2.5 mg PO DAILY Patient Comments: blood pressure hydrochlorothiazide 25 MG tablet 25 mg PO DAILY Patient Comments: blood pressure gabapentin 600 mg tablet 600 mg PO BID 2 Days Qty: 4 0RF gabapentin 600 mg tablet 600 mg PO BID 2 Days Qty: 4 0RF Primary Care Provider: Jose Maurice Referrals: Stuart Willson MD [Med Staff - Active Staff] - As soon as possible Jose Maurice MD [Primary Care Provider] - Print Language: [place] Disposition Disposition: Home, Self Care
[2024-01-03 03:53] VITALS: BP 138/76; PULSE 57; RESP 17; TEMP 36.1; O2SAT 92
[2024-01-03] MEDS: Ondansetron 4 MG/2 ML Vial IV (04:28)
[2024-01-03] MEDS: Morphine 4 MG/ML Syringe IV (04:28)
[2024-01-03 04:49] VITALS: BP 138/76; PULSE 56; RESP 16; O2SAT 93
[2024-01-03 05:02] LABS: Bacteria 0 SEEN /hpf (None Seen); Mucous, Urine 0 SEEN /hpf (<or=2+); Red Blood Cells-Urine 0 SEEN /hpf (0-5); Squamous Epithelial Cells - UA 0 SEEN /hpf (0-5); White Blood Cells 0 SEEN /hpf (0-5)
[2024-01-03 05:09] LABS: Color, Urine Yellow (Yellow); Glucose, Dipstick Normal (Normal); Ketone-Dipstick Negative (Negative); Leukocyte Esterase-Dipstick Negative /ul (Negative); Nitrite-Dipstick Negative (Negative); Occult Blood-Urine Negative /ul (Negative); Protein-Dipstick Negative (Negative); Specific Gravity, Urine 1.015 (1.002-1.030); Urine Bilirubin Dipstick Negative (Negative); Urine Clarity Clear (Clear); Urine Urobilinogen 4 mg/dl (Normal)
[2024-01-03 05:41] VITALS: BP 138/94; PULSE 55; RESP 18; TEMP 36.1; O2SAT 90
== END 2024-01-03 05:42 | disposition home or self-care (01) ==
PROVIDERS: Emergency Provider Student in an Organized Health Care Education/Training Program; PCP Family Medicine; Visit Provider Student in an Organized Health Care Education/Training Program
DX: R10.31 Right lower quadrant pain (principal); E78.00 Pure hypercholesterolemia, unspecified; I10 Essential (primary) hypertension; Z79.82 Long term (current) use of aspirin; Z79.899 Other long term (current) drug therapy; Z86.73 Personal history of transient ischemic attack (TIA), and cerebral infarction without residual deficits
CPT/HCPCS: 74177; 80053; 81001; 83690; 85025; 96374; 96375; 99285; P9612; Q9967; A4216; J2405

== ENCOUNTER 2024-04-14 17:12 | Inpatient (IN) | payer MEDICARE, SELFPAY ==
[2024-04-14] VITALS (8 sets, daily range): BP systolic 101–142; BP diastolic 50–85; PULSE 57–66; RESP 16–23; TEMP 36.8–39.2; O2SAT 90–95; BMI 39.6; BMI 39.0
--- NOTE | 2024-04-14 17:36 | EDS_ITS ---
HPI History of Present Illness Chief Complaint: General Illness Informant: patient and spouse/S.O. Onset/Context/Timing Onset: Days Context: Gradual Onset Timing: Continuous Quality: Moist cough Location: Chest Worsened by: Nothing Relieved by: Nothing Narrative Narrative: Patient presents with cough and wheezing that has been getting worse over the past several days. Patient states that is getting progressively worse patient states his cough started out as a dry cough but now feels like there is some sputum that he is having difficulty getting up. Patient states he feels short of breath. states the patient has been having some intermittent confusion. states he recently tested negative for COVID and received his COVID and flu vaccine from his primary care physician. 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 Patient had a temperature of 103 at home prior to arrival. states his temperature earlier today was 101. states she gave the patient a Tylenol for that with minimal relief. [facility] Medical History Wears glasses Cancer Thyroid disease Arthritis Hx of bladder cancer Bladder disease Easy bruising Restless legs Back pain Injury of head and neck Syncope Difficulty swallowing Non-smoker TIA (transient ischemic attack) History of pain when walking History of edema History of stress test Cardiology follow-up encounter Esophageal dysphagia High cholesterol Hypertension Home Medications ?Medication ?Instructions ?Recorded ?Last Taken ?Type hydrochlorothiazide 25 mg tablet 25 mg PO DAILY 05/09/15 Unknown History levothyroxine 150 mcg tablet 150 mcg PO DAILY 05/09/15 05/23/21 08:00 History lisinopril 5 mg tablet 2.5 mg PO DAILY 05/09/15 Unknown History pravastatin 20 mg tablet 20 mg PO QHS 05/09/15 Unknown History tamsulosin 0.4 mg capsule 0.4 mg PO DAILY 05/09/15 Unknown History trazodone 50 mg tablet 50 mg PO QHS 05/09/15 Unknown History clopidogrel 75 mg tablet 75 mg PO DAILY 04/14/24 Unknown History cyanocobalamin (vitamin B-12) 1,000 mcg PO DAILY 04/14/24 Unknown History 1,000 mcg tablet duloxetine 30 mg capsule,delayed 30 mg PO DAILY 04/14/24 Unknown History release finasteride 5 mg tablet 5 mg PO DAILY 04/14/24 Unknown History gabapentin 600 mg tablet 1,800 mg PO BID 04/14/24 Unknown History vopgvyiz-jt-prkud 300 mcg-K 60 1 tab PO DAILY 04/14/24 Unknown History mcg-lycop 600 mcg-lutein 300 mcg tablet (Centrum Silver Men) potassium chloride 20 mEq 20 meq PO DAILY 04/14/24 Unknown History tablet,extended release(part/cryst) vitamins A,C,U-rfya-igwhgh 2,148 1 tab PO BID 04/14/24 Unknown History mcg-113 mg-45 mg-17.4 mg tablet (Eye Multivitamin) Allergy/AdvReac Type Severity Reaction Status Date / Time prednisone AdvReac Nausea Verified 01/03/24 02:53 Surgical History Hx of colonoscopy Hx of repair of left rotator cuff Hx of repair of right rotator cuff Hx of microdiscectomy History of lumbar spinal fusion Social History Smoking Status: Never smoker alcohol intake: never substance use type: does not use ROS ROS ED Constitutional Constitutional ED: Reports chills and fever(s) Eyes Eyes: Denies blurry vision or change in vision ENT ENT ED: Denies rhinorrhea or sore throat Cardiovascular Cardiovascular: Denies chest pain or palpitations Respiratory/Chest Respiratory/Chest: Reports cough and dyspnea Gastrointestinal Gastrointestinal: Reports nausea; Denies vomiting Genitourinary Genitourinary ED: Denies dysuria or hematuria Musculoskeletal Musculoskeletal: Denies back pain or neck pain Integumentary Denies abscess or rash Neurologic Neurologic: Reports headache(s); Denies weakness Allergic/Immunologic Allergic/Immunologic ED: Denies mouth swelling or urticaria EXAM Physical Exam Const Vital Signs: 04/14/24 17:13 04/14/24 17:16 04/14/24 18:16 Temperature 102.5 F H 102.5 F H 102.5 F H Temperature Source Oral Temporal Oral Pulse Rate 64 64 60 Respiratory Rate 16 16 23 H Respiratory Effort Respiratory Pattern Blood Pressure 142/53 H 142/53 H 128/51 H Blood Pressure Mean 82 82 76 Pulse Ox 90 90 94 Oxygen Delivery Method Room Air Room Air Room Air Oxygen Flow Rate (L/min) 04/14/24 18:21 04/14/24 19:00 04/14/24 19:19 Temperature 102.5 F H Temperature Source Oral Pulse Rate 57 L Respiratory Rate 20 H Respiratory Effort Short of Breath Respiratory Pattern Tachypnea Blood Pressure 127/59 H Blood Pressure Mean 81 Pulse Ox 93 Oxygen Delivery Method Nasal Cannula Nasal Cannula Oxygen Flow Rate (L/min) 2 2 04/14/24 21:00 Temperature Temperature Source Pulse Rate 66 Respiratory Rate 23 H Respiratory Effort Respiratory Pattern Blood Pressure 101/85 H Blood Pressure Mean 90 Pulse Ox 94 Oxygen Delivery Method Nasal Cannula Oxygen Flow Rate (L/min) 2 Positive well nourished and well developed General Appearance ED: well developed and NAD HEENT Reports moist mucous membranes Neck supple and no JVD Resp normal respiratory effort Auscultation: rhonchi throughout and wheezes expiratory wheezes and throughout Cardio regular rate and regular rhythm GI non-tender and non-distended Palpation: soft Neuro oriented x3, CN's II-XII intact bilaterally and no sensory deficits noted Sensorium / Orientation: alert Motor Exam: strength 5/5 throughout Psych mental status grossly normal Skin Skin Narrative: Skin is warm and dry. There is a healing skin tear over the radial aspect of the left forearm. There is no surrounding erythema or warmth noted. There is no discharge or drainage noted. There is also a healing wound over the left upper thoracic area where he had squamous cell carcinoma removed yesterday. There is no erythema or warmth noted. There is no induration. There is no tenderness. There is no discharge or drainage. Sepsis Attestation Sepsis Alert: Yes Sepsis Attestation: Agree w/Sepsis Date exam was performed: 04/14/24 Time exam was performed: 18:00 Possible Source of Sepsis: Pulmonary and Skin/soft tissue Sepsis Organ Dysfunction Criteria Present: Lactic Acid > 2 mmol/L MDM MDM MDM Narrative Medical decision making narrative: Differential diagnosis includes pneumonia, sepsis, cardiac dysrhythmia, cardiac ischemia, urinary tract infection, and electrolyte abnormality. CBC will be obtained to assess for leukocytosis and anemia. Comprehensive metabolic profile will be obtained to assess for hepatic function, renal function, and electrolyte abnormality. PT with INR and PTT will be obtained to assess for coagulopathy. Serum lactate will be obtained to assess for sepsis. Urinalysis will be obtained to assess for urinary tract infection and hematuria. Blood culture will be obtained to assess for sepsis. Urine culture will be obtained to assess for urinary tract infection. Lab Data Attestation: I reviewed the patient's lab results. Lab results narrative: CBC was reviewed. There is a leukocytosis of 18.0. The remainder is within normal limits. PT with INR and PTT were reviewed and were essentially within normal limits. Comprehensive metabolic profile was reviewed. BUN was slightly elevated at 23. Creatinine was normal at 1.01. Glucose was mildly elevated at 154. Total bilirubin was normal at 0.9. Serum lactate was reviewed and was slightly elevated at 2.1. Urinalysis was reviewed. Leukocyte esterase was 25. There are 0-5 white blood cells and negative nitrites. Labs: Laboratory Results - last 24 hr 04/14/24 04/14/24 18:10 19:14 WBC 18.0 H RBC 4.83 Hgb 13.8 Hct 42.2 MCV 87.4 MCH 28.6 MCHC 32.7 RDW Std Deviation 53.1 H RDW Coeff of Alessandra 16.6 H Plt Count 157 MPV 9.7 Immature Gran % (Auto) 0.400 Neut % (Auto) 93.1 H Lymph % (Auto) 1.4 L [place] % (Auto) 4.7 Eos % (Auto) 0.1 Baso % (Auto) 0.3 Absolute Neuts (auto) 16.8 H Absolute Lymphs (auto) 0.25 L Nucleated RBC % 0 PT 14.2 INR 1.1 APTT 27.0 Sodium 142 Potassium 3.7 Chloride 110 H Carbon Dioxide 26.0 Anion Gap 6 BUN 23 H Creatinine 1.01 Estim Creat Clear Calc 73.31 Est GFR (MDRD) Af Amer 90 Est GFR (MDRD) Non-Af 75 BUN/Creatinine Ratio 22.8 H Glucose 154 H Lactic Acid 2.1 H* Calcium 8.9 Total Bilirubin 0.90 AST 13 L ALT 17 Alkaline Phosphatase 102 Total Protein 6.1 L Albumin 3.0 L Globulin 3.1 Albumin/Globulin Ratio 1.0 Urine Color Straw Urine Clarity Clear Urine pH 6.0 Ur Specific [place] 1.015 Urine Protein 30 H Urine Glucose (UA) Normal Urine Ketones 5 H Urine Occult Blood 10 H Urine Nitrite Negative Urine Bilirubin Negative Urine Urobilinogen 4 H Ur Leukocyte Esterase 25 H Urine RBC 0-5 SEEN Urine WBC 0-5 SEEN Ur Squamous Epith Cells 0-5 SEEN Urine Bacteria RARE Urine Mucus 2+ Radiography Diagnostic Testing: Clinical Impression(s) from Imaging Studies Chest X-Ray 04/14/24 18:25 IMPRESSION: No radiographic evidence of acute cardiopulmonary disease. Electronically Signed: Prateek Wells MD at 18:58 EDT , Chest CTA 04/14/24 20:27 IMPRESSION: 1. No evidence of pulmonary embolus. 2. Patchy groundglass opacities and minimal consolidation in both lower lobes which may represent early bilateral lower lobe pneumonia. Electronically Signed: Prateek Wells MD at 21:35 EDT , PA and lateral chest x-ray was obtained. There are 2 views. On my independent interpretation, lung dasilva showed a questionable retrocardiac infiltrate. There is normal cardiac silhouette. Bony thorax is normal. There is no acute process noted. Radiologist also interpreted the x-ray and did not note any infiltrate. CT of the chest was obtained. There is no evidence of pulmonary embolism. There are patchy groundglass opacities and consolidation in both lower lobes indicative of early bilateral lower lobe pneumonia. This was interpreted by the radiologist and was also independently reviewed by myself. EKG Initial EKG: Attestation: I personally reviewed and interpreted this EKG as follows: Interpretation: AV Block (Second-degree type I) Comments: EKG was obtained. On my independent interpretation, it shows bradycardia with a second-degree type I AV block. QRS interval was normal at 80 ms. QTc interval was normal at 397 ms. There is borderline left axis deviation at -22. There are no acute ST or T wave changes noted. Prior EKG tracings: available for review Prior: Changed (EKG from 11/29/2022 showed a sinus rhythm with a first- degree AV block with a RI interval of approximately 200 ms.) Management Discussion w/another healthcare provider: Hospitalist and Support Team [employer]oc Treatment and Re-Evaluation :: Since the patient had Tylenol prior to arrival, patient was given ibuprofen her e. Patient stated he could not take ibuprofen. Patient was given a dose of Tylenol. Patient was started on Zosyn and vancomycin. Case was discussed with the hospitalist. Because of the unknown source of infection, CTA of the chest was obtained to assess for possible occult pneumonia and pulmonary embolism. Hospitalist will admit the patient to PCU. Case was discussed with Dr. Boone from cardiology concerning the Mobitz type I AV block. He states that this should just be observed for now there is no immediate intervention necessary. Patient and spouse understand and are agreeable with the plan. All questions were answered. Critical Care Time Critical Care Time: Yes Critical care time (excluding procedures): 30-74 minutes (36), Including time spent:, Discussing w/Patient &/or Family/[employer] Engineer, Discussing w/Consultants, Arranging Admission or Transfer and Performing Direct Patient Care at Bedside Discharge Plan Dx/Rx/DC Orders Clinical Impression: Sepsis, Pneumonia, Mobitz (type) I (Wenckebach's) atrioventricular block Disposition Disposition: Acute Care [facility]
--- NOTE | 2024-04-14 17:55 | EKG12_ITS ---
Test Reason : Blood Pressure : / mmHG Vent. Rate : 059 BPM Atrial Rate : 059 BPM P-R Int : 368 ms QRS Dur : 080 ms QT Int : 402 ms P-R-T Axes : 053 -22 006 degrees QTc Int : 397 ms AV Dissociation Minimal voltage criteria for LVH, may be normal variant ( R in aVL ) Septal infarct , age undetermined Inferior infarct , age undetermined Abnormal ECG Confirmed by RENAE GUZMAN, STU ([id number]), sports editor MELVI ROACH ([id number]) on 04/15/2024 9:25:42 AM Referred By: Confirmed By:STU MACDONALD MD
[2024-04-14 18:24] LABS: Absolute Lymphocyte Count 0.25 X10^3/uL (0.83-4.51); Absolute Neutrophil Count 16.8 X10^3/uL (2.0-7.7); Basophil# 0.06 X10^3/uL; Basophil% 0.3 % (0-1); Eosinophil# 0.01 X10^3/uL; Eosinophils% 0.1 % (0-5); Hematocrit 42.2 % (40-54); Hemoglobin 13.8 g/dL (13.0-16.5); Lymphocyte # 0.25 X10^3/ul (0.83-4.51); Lymphocyte % 1.4 % (19-41); Mean Corp Hgb Conc 32.7 g/dL (32-36); Mean Corpuscular Hgb 28.6 pg (27.0-32.0); Mean Corpuscular Volume 87.4 fL (80-94); Mean Platelet Vol. 9.7 fl (6.2-12.0); Monocyte# 0.85 X10^3/uL; Monocyte% 4.7 % (0-10); NRBC Flagged by Analyzer 0 % (0-5); Neutrophil # 16.76 X10^3/uL (2.7-7.7); Neutrophil % 93.1 % (47-70); POSITIVE DIFFERENTIAL YES; Platelet Count 157 K/mm3 (150-450); RBC Distribution Width CV 16.6 % (11.6-14.6); RBC Distribution Width SD 53.1 fl (35.1-43.9); Red Blood Count 4.83 M/mm3 (4.6-6.2)
--- NOTE | 2024-04-14 18:25 | RAD_ITS ---
EXAM: XR CHEST, 2 VIEWS CLINICAL INDICATION: Cough TECHNIQUE: Frontal and lateral views of the chest. COMPARISON: 11/29/2022 FINDINGS: LUNGS AND PLEURAL SPACES: Unremarkable. No consolidation or edema. No pneumothorax. No effusion. HEART: Unremarkable. Cardiac silhouette not enlarged. MEDIASTINUM: Central airways and mediastinal contour are unremarkable. BONES/JOINTS: Unremarkable. No acute fracture. SOFT TISSUES: Unremarkable. RAD/Chest PA and Lateral IMPRESSION: No radiographic evidence of acute cardiopulmonary disease. Electronically Signed: Prateek Wells MD at 18:58 EDT ,
[2024-04-14 18:35] LABS: International Normalized Ratio 1.1; Prothrombin Time (Protime)PT. 14.2 SECONDS (11.7-14.9)
[2024-04-14 18:43] LABS: AST(SGOT) 13 U/L (15-37); Alanine Aminotransfer ALT/SGPT 17 U/L (16-61); Alkaline Phosphatase 102 U/L (45-117); Anion Gap 6 (5-15); BUN 23 mg/dL (7-18); BUN/Creat Ratio 22.8 RATIO (10-20); Calcium,Total 8.9 mg/dL (8.5-10.1); Chloride 110 mmol/L (98-107); Creatinine, Serum 1.01 mg/dL (0.70-1.30); EST Glomerular Filtration Rate 75 mL/min (>60); Est Glom Filt Rate - Afr Amer 90 mL/min (>60); Estimated Creatinine Clearance 73.31 ml/min; Globulin 3.1 g/dL (2.2-4.2); Glucose 154 mg/dL (74-106); Potassium 3.7 mmol/L (3.5-5.1); Protein, Total 6.1 g/dL (6.4-8.2); Sodium Level 142 mmol/L (136-145)
[2024-04-14 19:05] LABS: Lactic Acid 2.1 mmol/L (0.4-1.9)
[2024-04-14 19:25] LABS: Color, Urine Straw (Yellow); Glucose, Dipstick Normal (Normal); Ketone-Dipstick 5 mg/dl (Negative); Leukocyte Esterase-Dipstick 25 /ul (Negative); Nitrite-Dipstick Negative (Negative); Occult Blood-Urine 10 /ul (Negative); Protein-Dipstick 30 mg/dl (Negative); Specific Gravity, Urine 1.015 (1.002-1.030); Urine Bilirubin Dipstick Negative (Negative); Urine Clarity Clear (Clear); Urine Urobilinogen 4 mg/dl (Normal)
[2024-04-14 19:34] LABS: Bacteria RARE /hpf (None Seen); Squamous Epithelial Cells - UA 0-5 SEEN /hpf (0-5)
[2024-04-14 19:35] LABS: Red Blood Cells-Urine 0-5 SEEN /hpf (0-5); White Blood Cells 0-5 SEEN /hpf (0-5)
[2024-04-14 19:37] LABS: Mucous, Urine 2+ /hpf (<or=2+)
[2024-04-14] MEDS: Acetaminophen 500 MG Tablet 1000 MG PO (19:58)
[2024-04-14] MEDS: Piperacil/Tazobactam 4.5 GM in 0.9% Normal Saline (100mL MB+) 100 ML IV (20:00)
--- NOTE | 2024-04-14 20:24 | HP.PCM.HOS_ITS ---
[facility] - General General Date of Admission: 04/14/24 Date of Service: 04/14/24 Chief Complaint: Fever, SOB and Cough. [facility] Narrative JUAN MANUEL ARANGO, is a 83 M with a past medical history of essential hypertension, hyperlipidemia, hypothyroidism, obesity; with BMI of 39.7 this admission, neuropathy, history of syncope, history of TIA, BPH; s/p TURP, RLS, history of esophageal dysphagia, depression, OA; with back pain after previous lumbar fusion (2014) plus microdiscectomy and history of squamous cell skin cancer; s/p resection yesterday who presents to [facility] ER complaining of fever, SOB and cough. Mr. Arango reports his symptoms began approximately 3-4 days prior to admission with HDZ that progressively worsened to SOB at rest. He also admits to a cough that was initially dry but has become more productive as of late. His informed the ER physician that he has also been having bouts of intermittent confusion along with fevers spiking up to 103 degrees Fahrenheit for which she gave Tylenol without relief so she decided to bring him in for further evaluation and treatment. He recently tested negative for COVID and he is up to date on his COVID and influenza vaccines. He admits to nausea but he denies associated vomiting, diarrhea, constipation, abdominal pain, chest pain or headache. In the ER he triggered Sepsis criteria with Severe Leukocytosis of 18K, Lactic Acidosis of 2.1 mmol/L and fever of 102.5 degrees Fahrenheit present on admission but his CXR and UA appear relatively unremarkable with CTA of the chest positive for Bibasilar Pneumonia and EKG positive for Mobitz Type-1 (Wenckebach) Atrioventricular Block complicated by clinical evidence of Metabolic Encephalopathy. He was then admitted to the PCU for treatment under the Sepsis protocol for a stay that is expected to extend beyond 2 midnights. [facility] Medical History Wears glasses Cancer Thyroid disease Arthritis Hx of bladder cancer Bladder disease Easy bruising Restless legs Back pain Injury of head and neck Syncope Difficulty swallowing Non-smoker TIA (transient ischemic attack) History of pain when walking History of edema History of stress test Cardiology follow-up encounter Esophageal dysphagia High cholesterol Hypertension Home Medications ?Medication ?Instructions ?Recorded ?Last Taken ?Type hydrochlorothiazide 25 mg tablet 25 mg PO DAILY 05/09/15 Unknown History levothyroxine 150 mcg tablet 150 mcg PO DAILY 05/09/15 05/23/21 08:00 History lisinopril 5 mg tablet 2.5 mg PO DAILY 05/09/15 Unknown History pravastatin 20 mg tablet 20 mg PO QHS 05/09/15 Unknown History tamsulosin 0.4 mg capsule 0.4 mg PO DAILY 05/09/15 Unknown History trazodone 50 mg tablet 50 mg PO QHS 05/09/15 Unknown History clopidogrel 75 mg tablet 75 mg PO DAILY 04/14/24 Unknown History cyanocobalamin (vitamin B-12) 1,000 mcg PO DAILY 04/14/24 Unknown History 1,000 mcg tablet duloxetine 30 mg capsule,delayed 30 mg PO DAILY . 04/14/24 Unknown History release finasteride 5 mg tablet 5 mg PO DAILY 04/14/24 Unknown History gabapentin 600 mg tablet 1,800 mg PO BID neuropathy 04/14/24 Unknown History iksoovmp-ag-hbprq 300 mcg-K 60 1 tab PO DAILY 04/14/24 Unknown History mcg-lycop 600 mcg-lutein 300 mcg tablet (Centrum Silver Men) potassium chloride 20 mEq 20 meq PO DAILY 04/14/24 Unknown History tablet,extended release(part/cryst) vitamins A,C,A-pdum-bbpsxd 2,148 1 tab PO BID supplement 04/14/24 Unknown History mcg-113 mg-45 mg-17.4 mg tablet (Eye Multivitamin) Allergy/AdvReac Type Severity Reaction Status Date / Time prednisone AdvReac Nausea Verified 04/15/24 00:02 Surgical History Hx of colonoscopy Hx of repair of left rotator cuff Hx of repair of right rotator cuff Hx of microdiscectomy History of lumbar spinal fusion Social History Smoking Status: Never smoker alcohol intake: never substance use type: does not use ROS ROS Narrative Review of Systems: Constitutional: Patient admits to fever and chills. Eyes: Patient denies changes in vision or discharge from eyes. ENT: Patient denies runny nose, sore throat or ear pain. Resp: Patient admits to HDZ that progressed to SOB at rest and cough productive of minimal sputum as per HPI. CV: Patient denies chest pain, palpitations or heart racing. GI: Patient admits to nausea but he denies vomiting. : Patient denies dysuria or hematuria. MSK: Patient admits to chronic back pain. Skin: Patient denies rash, abscess or jaundice. Psych: Patient denies symptoms of uncontrolled depression or anxiety. Neuro: Patient was noted to have intermittent confusion but he denies headache or paresthesias. Allergy: Patient denies lip swelling, tongue swelling or urticaria. Hematology: Patient denies easy bleeding or easy bruisability. Endocrinology: Patient denies polyuria, polydipsia and polyphagia. 14 point ROS otherwise negative except for positives noted above in HPI. Vital Signs Vital Signs Vital Signs: 04/14/24 17:13 04/14/24 17:16 04/14/24 18:16 Temperature 102.5 F H 102.5 F H 102.5 F H Temperature Source Oral Temporal Oral Pulse Rate 64 64 60 Respiratory Rate 16 16 23 H Respiratory Effort Respiratory Pattern Blood Pressure 142/53 H 142/53 H 128/51 H Blood Pressure Mean 82 82 76 Pulse Ox 90 90 94 Oxygen Delivery Method Room Air Room Air Room Air Oxygen Flow Rate (L/min) 04/14/24 18:21 04/14/24 19:00 04/14/24 19:19 Temperature 102.5 F H Temperature Source Oral Pulse Rate 57 L Respiratory Rate 20 H Respiratory Effort Short of Breath Respiratory Pattern Tachypnea Blood Pressure 127/59 H Blood Pressure Mean 81 Pulse Ox 93 Oxygen Delivery Method Nasal Cannula Nasal Cannula Oxygen Flow Rate (L/min) 2 2 Weight Weight: 283 lb 4.704 oz Body Mass Index (BMI) 39.6 Physical Exam Const alert, oriented x3 and no apparent distress Constitutional Narrative: Obese and ill in appearance. General Appearance: cooperative HEENT normocephalic, head/scalp atraumatic, hearing grossly normal bilaterally and moist oral mucous membranes Eyes PERRL and EOMs intact bilaterally Neck no lymphadenopathy and supple Resp Resp Narrative: Diminished breath sounds throughout with scattered rhonci and wheezing. Auscultation: rhonchi and wheezes Cardio regular rate and regular rhythm GI normal to inspection, nondistended, normoactive bowel sounds, soft to palpation, non-tender and non-distended GI Narrative: Obese. Extremity normal to inspection, full ROM and no clubbing, cyanosis or edema Skin Skin Narrative: Patient has no evidence of rash, abscess or jaundice. Neuro oriented x3, CN's II-XII intact bilaterally, moves all extremities and no focal motor deficits Sensorium / Orientation: awake, alert, oriented to person, oriented to place and oriented to time Speech: speech normal Psych affect normal Results Medical Records Data Attestation: I reviewed the patient's medical records Lab / Micro Data Attestation: I reviewed the patient's lab results. 04/14/24 18:10 04/14/24 18:10 Labs: Laboratory Results - last 24 hr 04/14/24 18:10: WBC 18.0 H, RBC 4.83, Hgb 13.8, Hct 42.2, MCV 87.4, MCH 28.6, MCHC 32.7, RDW Std Deviation 53.1 H, RDW Coeff of Alessandra 16.6 H, Plt Count 157, MPV 9.7, Immature Gran % (Auto) 0.400, Neut % (Auto) 93.1 H, Lymph % (Auto) 1.4 L, [place] % (Auto) 4.7, Eos % (Auto) 0.1, Baso % (Auto) 0.3, Absolute Neuts (auto) 16.8 H, Absolute Lymphs (auto) 0.25 L, Nucleated RBC % 0, PT 14.2, INR 1.1, APTT 27.0, Sodium 142, Potassium 3.7, Chloride 110 H, Carbon Dioxide 26.0, Anion Gap 6, BUN 23 H, Creatinine 1.01, Estim Creat Clear Calc 73.31, Est GFR (MDRD) Af Amer 90, Est GFR (MDRD) Non-Af 75, BUN/Creatinine Ratio 22.8 H, Glucose 154 H, L actic Acid 2.1 H*, Calcium 8.9, Total Bilirubin 0.90, AST 13 L, ALT 17, Alkaline Phosphatase 102, Total Protein 6.1 L, Albumin 3.0 L, Globulin 3.1, Albumin/Globulin Ratio 1.0 04/14/24 19:14: Urine Color Straw, Urine Clarity Clear, Urine pH 6.0, Ur Specific [place] 1.015, Urine Protein 30 H, Urine Glucose (UA) Normal, Urine Ketones 5 H, Urine Occult Blood 10 H, Urine Nitrite Negative, Urine Bilirubin Negative, Urine Urobilinogen 4 H, Ur Leukocyte Esterase 25 H, Urine RBC 0-5 SEEN, Urine WBC 0-5 SEEN, Ur Squamous Epith Cells 0-5 SEEN, Urine Bacteria RARE, Urine Mucus 2+ Imaging Radiology Impression Chest X-Ray 04/14/24 18:25 IMPRESSION: No radiographic evidence of acute cardiopulmonary disease. Electronically Signed: Prateek Wells MD at 18:58 EDT , - [facility] Imaging Services [address] [place] [id number] CTA Chest W/WO Contrast MR#: [id number] Acct: [id number] Name: JUAN MANUEL ARANGO Rep #: [id number] : 1940 83 From: Prateek Wells MD PCP: Dr. Jose Maurice MD Status: [facility] Study: CTA Chest W/WO Contrast Date of Exam: 04/14/24 Exam# [id number] Ordering Dr: Jonh Flores DO EXAM: CT ANGIOGRAPHY CHEST WITHOUT AND WITH INTRAVENOUS CONTRAST CLINICAL INDICATION: Dyspnea TECHNIQUE: Helically acquired angiography images were obtained of the chest without and with intravenous contrast. This CT exam was performed using one or more of the following dose reduction techniques: automated exposure control, adjustment of the mA and/or kV according to patient size, and/or use of iterative reconstruction technique. MIP reconstructed images were created and reviewed. CONTRAST: IV 100mL Isovue-370 COMPARISON: No relevant prior studies available. FINDINGS: PULMONARY ARTERIES: Unremarkable. Normal in caliber. No evidence of pulmonary embolism. AORTA: Unremarkable. Normal in caliber. No evidence of dissection. GREAT VESSELS OF AORTIC ARCH: Unremarkable. Normal in caliber. No evidence of dissection. LUNGS AND PLEURAL SPACES: There are mild groundglass opacities with patchy consolidation in both lower lobes slightly greater on the right than on the left. No mass. No pleural effusion or thickening. No pneumothorax. HEART: Unremarkable. Heart size is normal. No pericardial effusion. No significant coronary artery calcifications. MEDIASTINUM: Unremarkable. No mediastinal or hilar adenopathy. Esophagus is unremarkable. No hiatal hernia. THYROID: Unremarkable. No thyroid lesions. BONES/JOINTS: Unremarkable. No suspicious lytic or blastic abnormality. CT/CTA Chest W/WO Contrast IMPRESSION: 1. No evidence of pulmonary embolus. 2. Patchy groundglass opacities and minimal consolidation in both lower lobes which may represent early bilateral lower lobe pneumonia. Electronically Signed: Prateek Wells MD at 21:35 EDT , CC: Dr. Jonh Flores DO; Dr. Jose Maurice MD ~ [employer]: Signed Assessment & Plan Assessment/Plan (1) Sepsis: QUALIFIERS: Sepsis acute organ dysfunction status: with acute organ dysfunction Sepsis type: sepsis due to unspecified organism Severe sepsis acute organ dysfunction type: encephalopathy Severe sepsis shock status: without septic shock Qualified Code(s): A41.9 - Sepsis, unspecified organism; R65.20 - Severe sepsis without septic shock; G93.41 - Metabolic encephalopathy (2) Pneumonia: QUALIFIERS: Laterality: bilateral Lung location: lower lobe of lung Pneumonia type: due to unspecified organism Qualified Code(s): J18.9 - Pneumonia, unspecified organism (3) Metabolic encephalopathy: (4) Mobitz (type) I (Wenckebach's) atrioventricular block: (5) Lactic acidosis: PLAN: Plan 1. Sepsis criteria with Severe Leukocytosis of 18K, Lactic Acidosis of 2.1 mmol/L and fever of 102.5 degrees Fahrenheit present on admission - Admit to ICU for treatment under the Sepsis protocol. Continue empiric IV Zosyn and IV Vancomycin begun in the ER and await culture and sensitivity data. Check CTA of chest to further delineate pulmonary anatomy with CXR unremarkable along with UA. 2. Intermittent Confusion due to Metabolic Encephalopathy arising from #1 - Continue supportive care as outlined above and monitor for improvement. 3. Mobitz Type-1 (Wenckebach) Atrioventricular Block complicating #1 & #2 - Noted. Patient will be monitored closely. 4. History of squamous cell skin cancer; s/p resection yesterday - Noted. 5. Obesity; with BMI of 39.7 this admission compounding #1 - #3 - Weight loss will be recommended. This complicates his case and may hamper recovery. 6. Essential hypertension - Hold scheduled antihypertensives until infection outlined n #1 is neutralized. 7. Hyperlipidemia - Resume statin. 8. Hypothyroidism - Maintain current Synthroid dose and check TSH. 9. Neuropathy - Continue Gabapentin as previous. 10. History of syncope - Noted. 11. History of TIA - Noted. 12. BPH; s/p TURP - Stable. Resume Finasteride as before. 13. RLS - Stable. 14. History of esophageal dysphagia - Noted. Give Tums prn for dysphagia. 15. Depression - Continue Duloxetine as previous. 16. OA; with back pain after previous lumbar fusion (2014) plus microdiscectomy - Stable. Give Tylenol prn. 17. DVT prophylaxis - Lovenox 40 mg sq daily. Total time: Approximately (but not less than) 75 minutes. Sepsis Attestation Sepsis Alert: Yes Sepsis Attestation: Agree w/Sepsis Date exam was performed: 04/14/24 Time exam was performed: 20:00 Possible Source of Sepsis: Pulmonary Sepsis Organ Dysfunction Criteria Present: Lactic Acid > 2 mmol/L and New/Unexplained change in mental status Fluid Resuscitation Fluid resuscitation indicated?: Yes Fluid Resuscitation ordered: 30 ml/kg fluid bolus ordered Amount of fluid ordered: 2 Sepsis Note Date exam was performed: 04/15/24 Time exam was performed: 02:00 Sepsis Attestation: Sepsis re-evaluation was performed Response to fluids: Fluid responsive hypotension Charges/Coding Visit Charges Inpatient E&M: 73635 Init Hosp L3
--- NOTE | 2024-04-14 20:27 | CT_ITS ---
EXAM: CT ANGIOGRAPHY CHEST WITHOUT AND WITH INTRAVENOUS CONTRAST CLINICAL INDICATION: Dyspnea TECHNIQUE: Helically acquired angiography images were obtained of the chest without and with intravenous contrast. This CT exam was performed using one or more of the following dose reduction techniques: automated exposure control, adjustment of the mA and/or kV according to patient size, and/or use of iterative reconstruction technique. MIP reconstructed images were created and reviewed. CONTRAST: IV 100mL Isovue-370 COMPARISON: No relevant prior studies available. FINDINGS: PULMONARY ARTERIES: Unremarkable. Normal in caliber. No evidence of pulmonary embolism. AORTA: Unremarkable. Normal in caliber. No evidence of dissection. GREAT VESSELS OF AORTIC ARCH: Unremarkable. Normal in caliber. No evidence of dissection. LUNGS AND PLEURAL SPACES: There are mild groundglass opacities with patchy consolidation in both lower lobes slightly greater on the right than on the left. No mass. No pleural effusion or thickening. No pneumothorax. HEART: Unremarkable. Heart size is normal. No pericardial effusion. No significant coronary artery calcifications. MEDIASTINUM: Unremarkable. No mediastinal or hilar adenopathy. Esophagus is unremarkable. No hiatal hernia. THYROID: Unremarkable. No thyroid lesions. BONES/JOINTS: Unremarkable. No suspicious lytic or blastic abnormality. CT/CTA Chest W/WO Contrast IMPRESSION: 1. No evidence of pulmonary embolus. 2. Patchy groundglass opacities and minimal consolidation in both lower lobes which may represent early bilateral lower lobe pneumonia. Electronically Signed: Prateek Wells MD at 21:35 EDT ,
[2024-04-14] MEDS: Vancomycin HCl 2,000 MG in 0.9% Normal Saline (500mL Bag) 500 ML 250 MG IV (21:52)
[2024-04-14] MEDS: 0.9% Normal Saline (1000mL) 1,000 ML 999 ML IV ×2 (21:54→23:13)
[2024-04-14 22:16] LABS: Reflex Lactate? Y
[2024-04-14 23:02] LABS: Lactic Acid 1.4 mmol/L (0.4-1.9)
[2024-04-15] VITALS (9 sets, daily range): BP systolic 118–142; BP diastolic 46–68; PULSE 52–62; RESP 16–18; TEMP 36.4–36.7; O2SAT 94–97
--- NOTE | 2024-04-15 00:20 | PCM.RX.CS ---
Consult Antibiotic Management Pharmacy has been consulted to manage selected antibiotic: Vancomycin Type of Intervention Type of Consult: New start Labs Labs: Sodium 142 mmol/L (136-145) 04/14/24 18:10 Potassium 3.7 mmol/L (3.5-5.1) 04/14/24 18:10 Chloride 110 mmol/L (98-107) H 04/14/24 18:10 Carbon Dioxide 26.0 mmol/L (21.0-32.0) 04/14/24 18:10 Anion Gap 6 (5-15) 04/14/24 18:10 BUN 23 mg/dL (7-18) H 04/14/24 18:10 Creatinine 1.01 mg/dL (0.70-1.30) 04/14/24 18:10 Est GFR (MDRD) Af Amer 90 mL/min (>60) 04/14/24 18:10 Est GFR (MDRD) Non-Af 75 mL/min (>60) 04/14/24 18:10 BUN/Creatinine Ratio 22.8 RATIO (10-20) H 04/14/24 18:10 Glucose 154 mg/dL (74-106) H 04/14/24 18:10 Dosing Weight Weight used for dosin.7 kg Estimated Creatinine Clearance Estimated Creatinine Clearance: 73 Goal Trough Goal Trough: 10-15 mcg/mL Pharmacy Plan for Drug Dosing Pharmacy Plan for Drug Dosing: Pharmacy Service will continue to monitor and adjust dosing as required. Follow-Up Labs Follow-Up Labs: Trough: Vancomycin Date/Time Labs Ordered Labs to be done on [date and time ordered]: 04/16/24 @3471
[2024-04-15] MEDS: 0.9% Normal Saline (1000mL) 1,000 ML 999 ML IV ×2 (00:40→01:52)
[2024-04-15] MEDS: Gabapentin 600 MG Tablet 1800 MG PO ×3 (00:42→22:23)
[2024-04-15] MEDS: traZODone 50 MG Tablet PO ×2 (00:42→22:23)
[2024-04-15] MEDS: Pravastatin 20 MG Tablet PO ×2 (00:42→22:23)
[2024-04-15] MEDS: Lactobacillis Acidophilus 1 CAP PO ×5 (00:42→22:23)
[2024-04-15] MEDS: Piperacil/Tazobactam 3.375 GM in 0.9% Normal Saline (50mL MB+) 50 ML IV ×3 (05:56→22:23)
[2024-04-15] MEDS: Levothyroxine 150 MCG Tablet PO (05:57)
--- NOTE | 2024-04-15 09:09 | PCM.PN.HOSP ---
Reason for Visit Reason for Visit: Diagnoses Sepsis, unspecified organism (04/14/24) Acidosis, unspecified (04/14/24) Metabolic encephalopathy (04/14/24) Atrioventricular block, second degree (04/14/24) Pneumonia, unspecified organism (04/14/24) Severe sepsis without septic shock (04/14/24) Subjective Subjective Feeling well. Objective Data Objective Data Vital Signs: Vital Signs Temp Pulse Resp BP Pulse Ox O2 Del Method O2 Flow Rate 36.5 C L 52 L 17 118/46 L 97 Nasal Cannula 2 04/15/24 05:55 04/15/24 05:55 04/15/24 05:55 04/15/24 05:55 04/15/24 05:55 04/15/24 05:55 04/15/24 05:55 Oxygen Flow Rate (L/min) 2 Oxygen Delivery Method Nasal Cannula Weight: 128.7 kg Body Mass Index (BMI) 39.0 Intake & Output: Intake and Output for Last 24 Hours 04/13/24 04/14/24 04/15/24 23:59 23:59 23:59 Intake Total 1100 / 1100 3640 / 3640 Output Total 500 / 500 Balance 1100 / 1100 3140 / 3140 Lab / Micro Data 04/14/24 18:10 04/14/24 18:10 Labs: Laboratory Results - last 24 hr 04/14/24 18:10: WBC 18.0 H, RBC 4.83, Hgb 13.8, Hct 42.2, MCV 87.4, MCH 28.6, MCHC 32.7, RDW Std Deviation 53.1 H, RDW Coeff of Alessandra 16.6 H, Plt Count 157, MPV 9.7, Immature Gran % (Auto) 0.400, Neut % (Auto) 93.1 H, Lymph % (Auto) 1.4 L, [place] % (Auto) 4.7, Eos % (Auto) 0.1, Baso % (Auto) 0.3, Absolute Neuts (auto) 16.8 H, Absolute Lymphs (auto) 0.25 L, Nucleated RBC % 0, PT 14.2, INR 1.1, APTT 27.0, Sodium 142, Potassium 3.7, Chloride 110 H, Carbon Dioxide 26.0, Anion Gap 6, BUN 23 H, Creatinine 1.01, Estim Creat Clear Calc 73.31, Est GFR (MDRD) Af Amer 90, Est GFR (MDRD) Non-Af 75, BUN/Creatinine Ratio 22.8 H, Glucose 154 H, Lactic Acid 2.1 H*, Calcium 8.9, Total Bilirubin 0.90, AST 13 L, ALT 17, Alkaline Phosphatase 102, Total Protein 6.1 L, Albumin 3.0 L, Globulin 3.1, Albumin/Globulin Ratio 1.0 04/14/24 19:14: Urine Color Straw, Urine Clarity Clear, Urine pH 6.0, Ur Specific [place] 1.015, Urine Protein 30 H, Urine Glucose (UA) Normal, Urine Ketones 5 H, Urine Occult Blood 10 H, Urine Nitrite Negative, Urine Bilirubin Negative, Urine Urobilinogen 4 H, Ur Leukocyte Esterase 25 H, Urine RBC 0-5 SEEN, Urine WBC 0-5 SEEN, Ur Squamous Epith Cells 0-5 SEEN, Urine Bacteria RARE, Urine Mucus 2+ 04/14/24 22:30: Lactic Acid 1.4 Radiography Diagnostic Testing: Radiology Impression Chest X-Ray 04/14/24 18:25 IMPRESSION: No radiographic evidence of acute cardiopulmonary disease. Electronically Signed: Prateek Wells MD at 18:58 EDT , Chest CTA 04/14/24 20:27 IMPRESSION: 1. No evidence of pulmonary embolus. 2. Patchy groundglass opacities and minimal consolidation in both lower lobes which may represent early bilateral lower lobe pneumonia. Electronically Signed: Prateek Wells MD at 21:35 EDT , Physical Exam Const alert and no apparent distress HEENT head/scalp atraumatic and moist oral mucous membranes Resp normal respiratory effort, no retractions, no use of accessory muscles and clear to auscultation bilaterally Cardio regular rate, regular rhythm, S1 normal heart sound and S2 normal heart sound GI normal to inspection, nondistended, normoactive bowel sounds, soft to palpation, non-tender and non-distended Neuro Sensorium / Orientation: awake and alert Assessment & Plan Assessment/Plan (1) Sepsis: QUALIFIERS: Sepsis acute organ dysfunction status: with acute organ dysfunction Sepsis type: sepsis due to unspecified organism Severe sepsis acute organ dysfunction type: encephalopathy Severe sepsis shock status: without septic shock Qualified Code(s): A41.9 - Sepsis, unspecified organism; R65.20 - Severe sepsis without septic shock; G93.41 - Metabolic encephalopathy (2) Pneumonia: QUALIFIERS: Laterality: bilateral Lung location: lower lobe of lung Pneumonia type: due to unspecified organism Qualified Code(s): J18.9 - Pneumonia, unspecified organism (3) Metabolic encephalopathy: (4) Mobitz (type) I (Wenckebach's) atrioventricular block: (5) Lactic acidosis: PLAN: Plan Sepsis 2/2 suspected pneumococcal pneumonia qSOFA 2 (RR 23, encephalopathy), SIRS 3/4 (temp 39.2, RR 23, WBCs 18) 2/2 pneumonia Check COVID-19/influenza/RSV, SCx, resp panel, strep and legionella antigens PEP abx with pip/tazo and vancomycin. metabolic encephalopathy 2/2 sepsis/pneumonia avoid potentiating medications until sensorium improves. Esophageal dysphagia h/o esophageal dilation. per his spouse, he intermittently has vomiting. speech therapy evaluation. Chronic conditions: Mobitz Type-1 (Wenckebach) Atrioventricular Block squamous cell skin cancer; s/p resection 04/13 HLP: continue pravastatin obesity class II: complicates care and recovery HTN hypothyroidism: continue levothyroxine. VTE prophylaxis: LMWH Charges/Coding Visit Charges Inpatient E&M: 14720 Subs Hosp L2
[2024-04-15] MEDS: Clopidogrel Bisulfate 75 MG Tablet PO (09:12)
[2024-04-15] MEDS: Enoxaparin 40 MG/0.4 ML Syringe SC (09:12)
[2024-04-15] MEDS: DULoxetine Hcl 30 MG Capsule PO (09:12)
[2024-04-15] MEDS: Cyanocobalamin 500 MCG Tablet 1000 MCG PO (09:13)
[2024-04-15] MEDS: Tamsulosin HCl 0.4 MG Capsule PO (09:13)
[2024-04-15] MEDS: Finasteride 5 MG Tablet PO (09:13)
[2024-04-15] MEDS: Multivitamin (Healthy Eyes) Capsule 1 CAP PO ×2 (09:14→17:15)
[2024-04-15] MEDS: Multivitamins,Ther W-Minerals Tablet 1 TABLET PO (09:14)
[2024-04-15] MEDS: Vancomycin HCl 1,250 MG in 0.9% Normal Saline (250mL Bag) 250 ML 167 MG IV ×2 (10:14→23:03)
[2024-04-15] MEDS: Lisinopril 2.5 MG Tablet PO (10:15)
--- NOTE | 2024-04-15 11:30 | CASEMGMT ---
HASEEB STARKEY Assessment: Face to Face with pt for initial transition planning/care coordination assessment. HASEEB STARKEY introduced self and role at [facility], pt voices understanding and consents to assessment. Pt is A&O x3 and answers all questions appropriately at this time. Pt sitting up in bed with oxygen on and at bedside. Care providers, pharmacy, and demographics verified/updated. Admitting Dx: sepsis, SOB, fever and metabolic encephalopathy Strata Score: 2 PCP:Josafat Specialists:Rebeca, cardio; Harrison, uro; Bryant, derm Preferred Pharmacy: [facility] [place] Insurance: [facility] Prescription Benefit: yes LNOK: Ansley Arango, Living Arrangements: Pt lives with in a single story home with 4 steps to enter. Pt reports he is I in ADLs at home typically and denies concerns. Transportation: Pt drives self and denies concerns with transportation. DME:rollator for outside, walker for inside, cane, shower chair, grab bars in shower, handicap shower, grab bars over toilet HHC/SNF: Denies hx of Pt states no concerns with going home at time of dc. Pt has not been oob yet. Pt reports pt has neuropathy and is weak in the legs. Discussed options for therapy at dc. Pt and want to see how pt progresses in this hospital stay and to see what is wrong prior to considering this. Pt also wants to see how pt does with therapy. Provided pt and with a verbal local in network list of DME companies should pt need oxygen at dc, pt chose [employer]. Pt states no further concerns/needs. CM to follow. Advised pt to ask CM if any further question/concerns/needs arise, voices understanding. Pt Goal: Home Plan: Home, follow for oxygen and therapy rec Handoff given to PRODUCT INSPECTION SUPERVISORHASEEB Quinones RN, CM
--- NOTE | 2024-04-15 15:59 | CHAPLAIN ---
Type of Pastoral Visit _x__ Initial Visit ___ Follow-up Visit ___ On-call Visit ___ General Patient Visit ___ Spiritual Assessment ___ Family Conference ___ Bereavement ___ Rapid Response ___ Code Blue ___ Other (describe below) Pastoral Care Referral From _x__ Patient ___ Family ___ Nurse ___ Physician ___ Stereoptician ___ Department Editor ___ Other (describe below) Sacrament/Intervention _x__ Active listening ___ Anointing ___ Sabianism ___ Bereavement ___ Communion _x__ Myesha exploration ___ _x__ Life review _x__ Prayer ___ Reconciliation ___ Sacrament of Sick ___ Supportive presence ___ Wedding ___ Other (describe below) Pastoral Comments patient and spouse are in the room and welcoming of spiritual care; explanation of the health need and a review of life allows for some connection and then discovery of familiar people known by each; both are talkative and express their myesha in God; spouse asks for specific prayers for their family; presence and prayer welcomed and appreciated
[2024-04-16 04:00] VITALS: BP 153/70; PULSE 64; RESP 16; TEMP 36.4; O2SAT 93
[2024-04-16] MEDS: 0.9% Saline Lock 10 ML Syringe IV (06:24)
[2024-04-16] MEDS: Piperacil/Tazobactam 3.375 GM in 0.9% Normal Saline (50mL MB+) 50 ML IV (06:24)
[2024-04-16] MEDS: Levothyroxine 150 MCG Tablet PO (06:24)
[2024-04-16 06:30] LABS: Absolute Lymphocyte Count 0.79 X10^3/uL (0.83-4.51); Absolute Neutrophil Count 8.8 X10^3/uL (2.0-7.7); Basophil# 0.07 X10^3/uL; Basophil% 0.6 % (0-1); Eosinophil# 0.53 X10^3/uL; Eosinophils% 4.9 % (0-5); Hematocrit 37.6 % (40-54); Hemoglobin 11.8 g/dL (13.0-16.5); Lymphocyte # 0.79 X10^3/ul (0.83-4.51); Lymphocyte % 7.3 % (19-41); Mean Corp Hgb Conc 31.4 g/dL (32-36); Mean Corpuscular Hgb 28.4 pg (27.0-32.0); Mean Corpuscular Volume 90.6 fL (80-94); Mean Platelet Vol. 10.5 fl (6.2-12.0); Monocyte# 0.65 X10^3/uL; NRBC Flagged by Analyzer 0 % (0-5); Neutrophil # 8.78 X10^3/uL (2.7-7.7); Neutrophil % 80.7 % (47-70); Platelet Count 142 K/mm3 (150-450); RBC Distribution Width SD 56.4 fl (35.1-43.9); Red Blood Count 4.15 M/mm3 (4.6-6.2); White Blood Count 10.9 K/mm3 (4.4-11.0)
[2024-04-16 06:51] LABS: Anion Gap 3 (5-15); BUN 20 mg/dL (7-18); BUN/Creat Ratio 22.6 RATIO (10-20); Calcium,Total 8.2 mg/dL (8.5-10.1); Chloride 116 mmol/L (98-107); Creatinine, Serum 0.89 mg/dL (0.70-1.30); EST Glomerular Filtration Rate 87 mL/min (>60); Est Glom Filt Rate - Afr Amer 105 mL/min (>60); Estimated Creatinine Clearance 84.47 ml/min; Glucose 109 mg/dL (74-106); Potassium 3.8 mmol/L (3.5-5.1); Sodium Level 143 mmol/L (136-145)
[2024-04-16] MEDS: Multivitamins,Ther W-Minerals Tablet 1 TABLET PO (08:37)
[2024-04-16] MEDS: Multivitamin (Healthy Eyes) Capsule 1 CAP PO (08:37)
[2024-04-16 08:53] VITALS: BP 154/68; PULSE 63; RESP 16; TEMP 36.6; O2SAT 97
--- NOTE | 2024-04-16 09:17 | PN.HOSP_ITS ---
Reason for Visit Reason for Visit: Diagnoses Sepsis, unspecified organism (04/14/24) Acidosis, unspecified (04/14/24) Metabolic encephalopathy (04/14/24) Atrioventricular block, second degree (04/14/24) Pneumonia, unspecified organism (04/14/24) Severe sepsis without septic shock (04/14/24) Subjective Subjective breathing better. had emesis after eating dry bread this am. Objective Data Objective Data Vital Signs: Vital Signs Temp Pulse Resp BP Pulse Ox O2 Del Method O2 Flow Rate 36.6 C 63 16 154/68 H 97 Room Air 2 04/16/24 08:53 04/16/24 08:53 04/16/24 08:53 04/16/24 08:53 04/16/24 08:53 04/16/24 08:53 04/15/24 15:36 Oxygen Flow Rate (L/min) 2 Oxygen Delivery Method Room Air Weight: 128.7 kg Body Mass Index (BMI) 39.0 Intake & Output: Intake and Output for Last 24 Hours 04/14/24 04/15/24 04/16/24 23:59 23:59 23:59 Intake Total 1100 / 1100 4765 / 4765 325 / 325 Output Total 1200 / 1550 350 / 350 Balance 1100 / 1100 3565 / 3215 - / Lab / Micro Data 04/16/24 06:05 04/16/24 06:05 Labs: Laboratory Results - last 24 hr 04/16/24 06:05: WBC 10.9, RBC 4.15 L, Hgb 11.8 L, Hct 37.6 L, MCV 90.6, MCH 28.4, MCHC 31.4 L, RDW Std Deviation 56.4 H, RDW Coeff of Alessandra 17.0 H, Plt Count 142 L, MPV 10.5, Immature Gran % (Auto) 0.500, Neut % (Auto) 80.7 H, Lymph % (Auto) 7.3 L, [place] % (Auto) 6.0, Eos % (Auto) 4.9, Baso % (Auto) 0.6, Absolute Neuts (auto) 8.8 H, Absolute Lymphs (auto) 0.79 L, Nucleated RBC % 0, Sodium 143, Potassium 3.8, Chloride 116 H, Carbon Dioxide 25.0, Anion Gap 3 L, BUN 20 H , Creatinine 0.89, Estim Creat Clear Calc 84.47, Est GFR (MDRD) Af Amer 105, Est GFR (MDRD) Non-Af 87, BUN/Creatinine Ratio 22.6 H, Glucose 109 H, Calcium 8.2 L Micro: Microbiology 04/15/24 10:50 Mucosa - Nose Respiratory Panel (PCR) - Final 04/15/24 10:50 Mucosa - Nasopharyngeal Coronavirus COVID-19 PCR - Final 04/15/24 09:16 Urine, Clean Catch Legionella Antigen - Final 04/15/24 09:16 Urine, Clean Catch Streptococcus pneumoniae Antigen (M - Final 04/14/24 19:14 Urine, Clean Catch Urine Culture - Preliminary Culture exhibits no growth. Physical Exam Const alert and no apparent distress HEENT head/scalp atraumatic and moist oral mucous membranes Resp normal respiratory effort, no retractions, no use of accessory muscles and clear to auscultation bilaterally Cardio regular rate, regular rhythm, S1 normal heart sound and S2 normal heart sound GI normal to inspection, nondistended, normoactive bowel sounds, soft to palpation and non-tender Extremity normal to inspection Assessment & Plan Assessment/Plan (1) Sepsis: QUALIFIERS: Sepsis acute organ dysfunction status: with acute organ dysfunction Sepsis type: sepsis due to unspecified organism Severe sepsis acute organ dysfunction type: encephalopathy Severe sepsis shock status: without septic shock Qualified Code(s): A41.9 - Sepsis, unspecified organism; R65.20 - Severe sepsis without septic shock; G93.41 - Metabolic encephalopathy (2) Pneumonia: QUALIFIERS: Laterality: bilateral Lung location: lower lobe of lung Pneumonia type: due to unspecified organism Qualified Code(s): J18.9 - Pneumonia, unspecified organism (3) Metabolic encephalopathy: (4) Mobitz (type) I (Wenckebach's) atrioventricular block: (5) Lactic acidosis: PLAN: Plan Sepsis 2/2 gram negative pneumonia * qSOFA 2 (RR 23, encephalopathy), SIRS 3/4 (temp 39.2, RR 23, WBCs 18) * 2/2 pneumonia * COVID-19/influenza/RSV, resp panel, strep and legionella antigens negative * SCx showing gram negative organism. * PEP * abx with pip/tazo and vancomycin. Will discharge with levofloxacin metabolic encephalopathy * resolved * 2/2 sepsis/pneumonia Esophageal dysphagia * h/o esophageal dilation. * per his spouse, he intermittently has vomiting. * speech therapy saw, no oral pharyngeal * pt to follow up with Dr. Campoverde on 04/28 * Avoid non-ground/shredded meats, breads. 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 DW patient's at bedside.
[2024-04-16] MEDS: Gabapentin 600 MG Tablet 1800 MG PO (09:56)
[2024-04-16] MEDS: Cyanocobalamin 500 MCG Tablet 1000 MCG PO (09:56)
[2024-04-16] MEDS: Finasteride 5 MG Tablet PO (09:57)
[2024-04-16] MEDS: Tamsulosin HCl 0.4 MG Capsule PO (09:57)
[2024-04-16] MEDS: DULoxetine Hcl 30 MG Capsule PO (09:57)
[2024-04-16] MEDS: Lactobacillis Acidophilus 1 CAP PO (09:57)
[2024-04-16] MEDS: Enoxaparin 40 MG/0.4 ML Syringe SC (09:57)
[2024-04-16] MEDS: Lisinopril 2.5 MG Tablet PO (09:57)
[2024-04-16] MEDS: Clopidogrel Bisulfate 75 MG Tablet PO (09:57)
[2024-04-16 10:18] LABS: Vancomycin, Trough Level 17.4 ug/mL (5.0-15.0)
[2024-04-16] MEDS: Vancomycin IV 1,000 MG/200 ML BAG 200 MG IV (12:13)
--- NOTE | 2024-04-16 12:31 | DS.PCM_ITS ---
Providers Date of Admission: 04/14/24 Primary Care Physician: Dr. Jose Maurice MD Reason For Visit: SEPSIS, SOB, FEVER & METABOLIC ENCEPHALOPATHY Diagnosis Discharge Diagnosis (1) Sepsis: Status: Acute Code(s): A41.9 - Sepsis, unspecified organism Qualifiers: Sepsis type: sepsis due to unspecified organism Sepsis acute organ dysfunction status: with acute organ dysfunction Severe sepsis acute organ dysfunction type: encephalopathy Severe sepsis shock status: without septic shock Qualified Code(s): A41.9 - Sepsis, unspecified organism; R65.20 - Severe sepsis without septic shock; G93.41 - Metabolic encephalopathy (2) Pneumonia: Status: Acute Code(s): J18.9 - Pneumonia, unspecified organism Qualifiers: Pneumonia type: due to unspecified organism Laterality: bilateral Lung location: lower lobe of lung Qualified Code(s): J18.9 - Pneumonia, unspecified organism (3) Metabolic encephalopathy: Status: Acute Code(s): G93.41 - Metabolic encephalopathy (4) Mobitz (type) I (Wenckebach's) atrioventricular block: Status: Acute Code(s): I44.1 - Atrioventricular block, second degree (5) Lactic acidosis: Status: Acute Code(s): E87.20 - Acidosis, unspecified Plan Sepsis 2/2 gram negative pneumonia * qSOFA 2 (RR 23, encephalopathy), SIRS 3/4 (temp 39.2, RR 23, WBCs 18) * 2/2 pneumonia * COVID-19/influenza/RSV, resp panel, strep and legionella antigens negative * SCx showing gram negative organism. * PEP * abx with pip/tazo and vancomycin. Will discharge with levofloxacin metabolic encephalopathy * resolved * 2/2 sepsis/pneumonia Esophageal dysphagia * h/o esophageal dilation. * per his spouse, he intermittently has vomiting. * speech therapy saw, no oral pharyngeal * pt to follow up with Dr. Campoverde on 04/28 * Avoid non-ground/shredded meats, breads. 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 DW patient's at bedside. Medications at Discharge Home Medications hydrochlorothiazide 25 mg tablet 25 mg PO DAILY 05/09/15 levothyroxine 150 mcg tablet 150 mcg PO DAILY 05/09/15 lisinopril 5 mg tablet 2.5 mg PO DAILY 05/09/15 pravastatin 20 mg tablet 20 mg PO QHS 05/09/15 tamsulosin 0.4 mg capsule 0.4 mg PO DAILY 05/09/15 trazodone 50 mg tablet 50 mg PO QHS 05/09/15 clopidogrel 75 mg tablet 75 mg PO DAILY 04/14/24 cyanocobalamin (vitamin B-12) 1,000 mcg tablet 1,000 mcg PO DAILY 04/14/24 duloxetine 30 mg capsule,delayed release 30 mg PO DAILY . 04/14/24 finasteride 5 mg tablet 5 mg PO DAILY 04/14/24 gabapentin 600 mg tablet 1,800 mg PO BID neuropathy 04/14/24 jergqtpk-qi-huzdk 300 mcg-K 60 mcg-lycop 600 mcg-lutein 300 mcg tablet (Centrum Silver Men) 1 tab PO DAILY 04/14/24 potassium chloride 20 mEq tablet,extended release(part/cryst) 20 meq PO DAILY 04/14/24 vitamins A,C,M-dpnr-gdywti 2,148 mcg-113 mg-45 mg-17.4 mg tablet (Eye Multivitamin) 1 tab PO BID supplement 04/14/24 levofloxacin 750 mg tablet 750 mg PO Q24H #5 tabs 04/16/24 Hospital Course Operations None Procedures None Summary of Care Provided Minutes Spent on Discharge: 36 Hospital Course: Patient presents with sepsis secondary to pneumonia. Patient was started on pip-tazo and vancomycin. Sputum culture showed gram-negative rods. Patient has done well overnight and will be discharged home but will be discharged with course of levofloxacin. Intermittently, patient has issues with food getting stuck in esophagus and then vomiting that up. Patient had episode while he was here after having some dried bread. Patient has known esophageal dysphagia due to esophageal stenosis which has required dilation in the past. Patient already has a follow-up with Dr. Campoverde on the . Patient vies to continue that appointment. Weight / BMI Weight Weight: 128.7 kg Body Mass Index (BMI) 39.0 ABG / Lab / Microbiology Data 04/16/24 06:05 04/16/24 06:05 Laboratory: Laboratory Results - last 24 hr 04/16/24 06:05: WBC 10.9, RBC 4.15 L, Hgb 11.8 L, Hct 37.6 L, MCV 90.6, MCH 28.4, MCHC 31.4 L, RDW Std Deviation 56.4 H, RDW Coeff of Alessandra 17.0 H, Plt Count 142 L, MPV 10.5, Immature Gran % (Auto) 0.500, Neut % (Auto) 80.7 H, Lymph % (Auto) 7.3 L, [place]les % (Auto) 6.0, Eos % (Auto) 4.9, Baso % (Auto) 0.6, Absolute Neuts (auto) 8.8 H, Absolute Lymphs (auto) 0.79 L, Nucleated RBC % 0, Sodium 143, Potassium 3.8, Chloride 116 H, Carbon Dioxide 25.0, Anion Gap 3 L, BUN 20 H , Creatinine 0.89, Estim Creat Clear Calc 84.47, Est GFR (MDRD) Af Amer 105, Est GFR (MDRD) Non-Af 87, BUN/Creatinine Ratio 22.6 H, Glucose 109 H, Calcium 8.2 L 04/16/24 09:30: Vancomycin Trough 17.4 H Microbiology: Microbiology 04/15/24 16:53 Sputum, Expectorated/Coughed Respiratory Culture - Preliminary Gram negative everett 04/15/24 10:50 Mucosa - Nose Respiratory Panel (PCR) - Final 04/15/24 10:50 Mucosa - Nasopharyngeal Coronavirus COVID-19 PCR - Final 04/15/24 09:16 Urine, Clean Catch Legionella Antigen - Final 04/15/24 09:16 Urine, Clean Catch Streptococcus pneumoniae Antigen (M - Final 04/14/24 19:14 Urine, Clean Catch Urine Culture - Preliminary Culture exhibits no growth. D/C Instructions Discharge Diet: - (mechanical soft diet. Avoid steak, breads. ) Meaningful Use Info Meaningful Use Meaningful Use Diagnoses (Choose all that apply): None applicable Ischemic Stroke Statin Dosing Therapy Reference: STATIN DOSE THERAPY REFERENCE: * Patients > 75 years receive moderate or high dose statin therapy. * Patients 75 years or YOUNGER should receive HIGH intensity statin dose unless contraindicated. You will be required to document reason for non-treatment if statin daily dose does not meet guidelines. HIGH DOSE STATIN THERAPY DAILY Atorvastatin > than or = to 40 mg Rosuvastatin > than or = to 20 mg Amlodipine + Atorvastatin > than or = to 2.5/40 mg Ezetimibe + Simvastatin 10/80 mg Simvastatin 80mg Discharge Plan Admission Admit Date/Time: 04/14/24 20:56 Primary Reason for Your Visit: Pneumonia Attending Provider: Jonh Shen Primary Care Provider: Jose Maurice Consulting Providers: Noel Penn Discharge Orders/Prescriptions Prescriptions: New levofloxacin 750 mg tablet 750 mg PO Q24H Qty: 5 0RF Continued cyanocobalamin (vitamin B-12) 1,000 mcg tablet 1,000 mcg PO DAILY clopidogrel 75 mg tablet 75 mg PO DAILY potassium chloride 20 mEq tablet,ER particles/crystals 20 meq PO DAILY finasteride 5 mg tablet 5 mg PO DAILY duloxetine 30 mg capsule,delayed release(DR/EC) 30 mg PO DAILY trazodone 50 MG tablet 50 mg PO QHS Patient Comments: sleep tamsulosin 0.4 MG capsule 0.4 mg PO DAILY Patient Comments: prostate levothyroxine 150 MCG tablet 150 mcg PO DAILY Patient Comments: thyroid pravastatin 20 MG tablet 20 mg PO QHS Patient Comments: cholesterol lisinopril 5 MG tablet 2.5 mg PO DAILY Patient Comments: blood pressure hydrochlorothiazide 25 MG tablet 25 mg PO DAILY Patient Comments: blood pressure Eye Multivitamin 2,148 mcg-113 mg-45 mg-17.4mg tablet 1 tab PO BID Rx Instructions: administer with AM and PM meals Centrum Silver Men [id number] mcg tablet 1 tab PO DAILY gabapentin 600 mg tablet 1,800 mg PO BID Referrals / Follow Up: [facility] [Provider Group] - 04/28/24 2:30 pm Jose Maurice MD [Primary Care Provider] - Within 2 Weeks Disposition Disposition (needs filled in before D/C Order can be placed): Home, Self Care Charges/Coding Visit Charges Inpatient E&M: 51495 Disch Hosp >30min
--- NOTE | 2024-04-16 13:09 | PHA.PHARE_ITS ---
Consult Antibiotic Management Pharmacy has been consulted to manage selected antibiotic: Vancomycin Type of Intervention Type of Consult: Follow-up Suspected Infection Suspected Infection: Sepsis and Pneumonia Prior Doses of Antibiotics Prior Doses of Antibiotics Received/Current Regimen: 1250mg iv q12h Labs Labs: Sodium 143 mmol/L (136-145) 04/16/24 06:05 Potassium 3.8 mmol/L (3.5-5.1) 04/16/24 06:05 Chloride 116 mmol/L (98-107) H 04/16/24 06:05 Carbon Dioxide 25.0 mmol/L (21.0-32.0) 04/16/24 06:05 Anion Gap 3 (5-15) L 04/16/24 06:05 BUN 20 mg/dL (7-18) H 04/16/24 06:05 Creatinine 0.89 mg/dL (0.70-1.30) 04/16/24 06:05 Est GFR (MDRD) Af Amer 105 mL/min (>60) 04/16/24 06:05 Est GFR (MDRD) Non-Af 87 mL/min (>60) 04/16/24 06:05 BUN/Creatinine Ratio 22.6 RATIO (10-20) H 04/16/24 06:05 Glucose 109 mg/dL (74-106) H 04/16/24 06:05 Vancomycin Trough 17.4 ug/mL (5.0-15.0) H 04/16/24 09:30 Microbiology Microbiology: Microbiology 04/15/24 16:53 Sputum, Expectorated/Coughed Respiratory Culture - Preliminary Gram negative everett 04/15/24 10:50 Mucosa - Nose Respiratory Panel (PCR) - Final 04/15/24 10:50 Mucosa - Nasopharyngeal Coronavirus COVID-19 PCR - Final 04/15/24 09:16 Urine, Clean Catch Legionella Antigen - Final 04/15/24 09:16 Urine, Clean Catch Streptococcus pneumoniae Antigen (M - Final 04/14/24 19:14 Urine, Clean Catch Urine Culture - Preliminary Culture exhibits no growth. Dosing Weight Weight used for dosin kg Estimated Creatinine Clearance Estimated Creatinine Clearance: 84ml/min Goal Trough Goal Trough: 10-15 mcg/mL Pharmacy Plan for Drug Dosing Pharmacy Plan for Drug Dosing: Trough today 17.4 and above desired chosen range of 10-15mcg/ml. Recommend decreasing dose to 1gm iv q12h with repeat trough before 3rd dose of new regimen . Pharmacy Service will continue to monitor and adjust dosing as required. Follow-Up Labs Follow-Up Labs: Trough: Vancomycin (04.18.24 @4361)
[2024-04-16 13:28] VITALS: O2SAT 93; O2SAT 95
[2024-04-16 14:00] VITALS: BP 129/67; PULSE 72; RESP 15; TEMP 36.7; O2SAT 95
--- NOTE | 2024-04-16 14:18 | CASEMGMT ---
Patient has order for discharge. RN CM in to discuss needs at discharge, at bedside. Patient denies needs or help at discharge. Patient had no further questions or concerns.
== END 2024-04-16 15:10 | disposition home or self-care (01) | DRG 179 ==
LOC: ED 20:49 → PCU 23:14
PROVIDERS: Admitting Provider Internal Medicine; Emergency Provider Emergency Medicine; PCP Family Medicine
DX: J15.69 Pneumonia due to other Gram-negative bacteria (principal); I44.1 Atrioventricular block, second degree; I10 Essential (primary) hypertension; E03.9 Hypothyroidism, unspecified; F32.A Depression, unspecified; Z68.39 Body mass index [BMI] 39.0-39.9, adult; K22.2 Esophageal obstruction; E78.00 Pure hypercholesterolemia, unspecified; G62.9 Polyneuropathy, unspecified; C44.529 Squamous cell carcinoma of skin of other part of trunk; E66.812 Obesity, class 2; N40.0 Benign prostatic hyperplasia without lower urinary tract symptoms; Z79.890 Hormone replacement therapy; Z79.899 Other long term (current) drug therapy; Z86.73 Personal history of transient ischemic attack (TIA), and cerebral infarction without residual deficits
CPT/HCPCS: 36415; 71046; 71275; 80048; 80053; 80202; 81001; 83605; 85025; 85610; 85730; 87040; 87070; 87077; 87086; 87186; 87205; 87449; 87633; 87635; 92610; 93005; 94667; 94668; 94762; 97162; 97166; 99285; Q9967; A4216

== ENCOUNTER 2024-06-09 19:03 | Emergency (ER) | payer MEDICARE, SELFPAY ==
[2024-06-09 19:04] VITALS: BP 168/68; PULSE 47; RESP 18; TEMP 36.5; O2SAT 100; BMI 39.2
--- NOTE | 2024-06-09 19:09 | EKG12_ITS ---
Test Reason : DYSRHYTHMIA Blood Pressure : */* mmHG Vent. Rate : 46 BPM Atrial Rate : 277 BPM P-R Int : * ms QRS Dur : 82 ms QT Int : 512 ms P-R-T Axes : 155 -12 26 degrees QTcB Int : 448 ms Atrial flutter Abnormal ECG Confirmed by RENAE GUZMAN, STU ([id number]), commissioning editor MELVI ROACH ([id number]) on 06/10/2024 10:59:46 AM Referred By: Confirmed By: STU MACDONALD MD
[2024-06-09 19:28] LABS: Absolute Lymphocyte Count 1.28 X10^3/uL (0.83-4.51); Absolute Neutrophil Count 5.4 X10^3/uL (2.0-7.7); Basophil# 0.08 X10^3/uL; Eosinophil# 0.42 X10^3/uL; Eosinophils% 5.5 % (0-5); Hematocrit 43.5 % (40-54); Hemoglobin 13.3 g/dL (13.0-16.5); Lymphocyte # 1.28 X10^3/ul (0.83-4.51); Lymphocyte % 16.8 % (19-41); Mean Corp Hgb Conc 30.6 g/dL (32-36); Mean Corpuscular Hgb 27.5 pg (27.0-32.0); Mean Corpuscular Volume 89.9 fL (80-94); Mean Platelet Vol. 10.4 fl (6.2-12.0); Monocyte# 0.45 X10^3/uL; Monocyte% 5.9 % (0-10); NRBC Flagged by Analyzer 0 % (0-5); Neutrophil # 5.38 X10^3/uL (2.7-7.7); Neutrophil % 70.5 % (47-70); Platelet Count 178 K/mm3 (150-450); RBC Distribution Width CV 16.3 % (11.6-14.6); RBC Distribution Width SD 53.5 fl (35.1-43.9); Red Blood Count 4.84 M/mm3 (4.6-6.2); White Blood Count 7.6 K/mm3 (4.4-11.0)
--- NOTE | 2024-06-09 19:39 | RAD_ITS ---
EXAM: XR CHEST, 1 VIEW CLINICAL INDICATION: chest pain TECHNIQUE: Frontal view of the chest. COMPARISON: Chest radiograph and CT chest April 14, 2024. There was mediastinal lipomatosis, no aortic aneurysm, and patchy bibasilar opacities seen on prior CT. FINDINGS: LUNGS AND PLEURAL SPACES: Unremarkable. No pneumothorax. No consolidation or effusion. HEART: Similar upper limits of normal heart size. MEDIASTINUM: Central airways and mediastinal contour are unremarkable. BONES/JOINTS: See above. SOFT TISSUES: Unremarkable. RAD/Chest 1 View (Portable) IMPRESSION: Stable chest. Electronically Signed: Rebeka Garcia MD at 20:15 EST ,
[2024-06-09 19:51] LABS: Anion Gap 3 (5-15); BUN 23 mg/dL (7-18); BUN/Creat Ratio 24.3 RATIO (10-20); Calcium,Total 8.9 mg/dL (8.5-10.1); Chloride 107 mmol/L (98-107); Creatinine, Serum 0.95 mg/dL (0.70-1.30); EST Glomerular Filtration Rate 80 mL/min (>60); Est Glom Filt Rate - Afr Amer 97 mL/min (>60); Estimated Creatinine Clearance 78.73 ml/min; Glucose 110 mg/dL (74-106); Potassium 4.1 mmol/L (3.5-5.1); Sodium Level 140 mmol/L (136-145); Troponin-I HS (w/2H Reflex) 15 pg/mL (3.0-78.0)
--- NOTE | 2024-06-09 19:56 | EX.ED.DYSGE1 ---
HPI History of Present Illness Chief Complaint: Palpitations Detail of Chief Complaint: Sent to ER because of atrial flutter, onset unknown Onset/Context/Timing Onset: - (Unknown) Context: - (Unknown) Timing: - (Unknown) Quality: A flutter with variable block Location: Cardiovascular Current Severity: Patient is essentially asymptomatic Maximum Severity: Mild swelling of his lower extremities and orthopnea Worsened by: Not applicable Relieved by: Nothing Associated Symptoms Associated Symptoms: Lower extremity exam edema and orthopnea Narrative Narrative: Patient is a 83-year-old male. He presents because of atrial flutter. He was scheduled for an EGD by Dr. Campoverde today and was canceled. EKG revealed atrial flutter. I was informed by Dr. Mcarthur that the EKG was reviewed by him earlier today. His primary care physician Dr. Juan called and spoke with Dr. Bullard. Patient was sent to the ER because of atrial flutter. Patient denies chest tightness, pressure or heaviness. Patient has had increased shortness of breath with exertion. He also reports mild orthopnea and edema of his lower extremities. He denies black or maroon-colored stool. He does have abdominal pain and reason for EGD. He is on Plavix. He did not take his Plavix the past couple days since he was undergoing EEG. Patient has no other symptoms. Prior similar symptoms: No Recent Illness/Hospitalization: No [facility] Medical History Prostate disease Excessive bleeding Gastric reflux Neuropathy Shortness of breath on exertion Mobitz (type) I (Wenckebach's) atrioventricular block Wears glasses Cancer Thyroid disease Arthritis Hx of bladder cancer Bladder disease Easy bruising Restless legs Back pain Injury of head and neck Syncope Difficulty swallowing Non-smoker TIA (transient ischemic attack) History of pain when walking History of edema History of stress test Cardiology follow-up encounter Esophageal dysphagia High cholesterol Hypertension Home Medications ?Medication ?Instructions ?Recorded ?Last Taken ?Type lisinopril 5 mg tablet 2.5 mg PO DAILY 05/09/15 Unknown History pravastatin 20 mg tablet 20 mg PO QHS 05/09/15 Unknown History tamsulosin 0.4 mg capsule 0.4 mg PO DAILY 05/09/15 Unknown History trazodone 50 mg tablet 50 mg PO QHS 05/09/15 Unknown History clopidogrel 75 mg tablet 75 mg PO DAILY 04/14/24 06/05/24 History cyanocobalamin (vitamin B-12) 1,000 mcg PO DAILY 04/14/24 Unknown History 1,000 mcg tablet duloxetine 30 mg capsule,delayed 30 mg PO DAILY . 04/14/24 Unknown History release finasteride 5 mg tablet 5 mg PO DAILY 04/14/24 Unknown History gabapentin 600 mg tablet 1,800 mg PO Q12H neuropathy 04/14/24 06/09/24 History rdyqptln-jr-qzgim 300 mcg-K 60 1 tab PO DAILY 04/14/24 Unknown History mcg-lycop 600 mcg-lutein 300 mcg tablet (Centrum Silver Men) potassium chloride 20 mEq 20 meq PO DAILY 04/14/24 Unknown History tablet,extended release(part/cryst) vitamins A,C,L-rtfu-yyieoq 2,148 1 tab PO BID supplement 04/14/24 Unknown History mcg-113 mg-45 mg-17.4 mg tablet (Eye Multivitamin) furosemide 20 mg tablet 20 mg PO QODAY 06/08/24 Unknown History levothyroxine 125 mcg tablet 125 mcg PO MOTUWETHFR 06/08/24 06/09/24 History levothyroxine 200 mcg capsule 250 mcg PO SUSA 06/08/24 Unknown History zinc gluconate 50 mg tablet 50 mg PO DAILY 06/08/24 Unknown History Allergy/AdvReac Type Severity Reaction Status Date / Time oxybutynin (From Ditropan) Allergy Intermediate Nausea/Vom/ Verified 06/09/24 19:04 Diarrhea prednisone AdvReac Nausea Verified 06/09/24 19:04 Surgical History History of esophagogastroduodenoscopy (EGD) History of laparoscopic cholecystectomy Hx of colonoscopy Hx of repair of left rotator cuff Hx of repair of right rotator cuff Hx of microdiscectomy History of lumbar spinal fusion Social History Smoking Status: Never smoker alcohol intake: never substance use type: does not use ROS ROS ED Constitutional Constitutional ED: Denies chills, fever(s), subjective, sweats or weight loss Eyes Eyes: Denies blurry vision or change in vision ENT ENT ED: Denies ear pain or rhinorrhea Cardiovascular Cardiovascular: Reports orthopnea and palpitations; Denies chest pain, paroxysmal nocturnal dyspnea or racing heartbeat Respiratory/Chest Respiratory/Chest: Reports dyspnea on exertion and orthopnea; Denies cough, dyspnea, paroxysmal nocturnal dyspnea or sputum Gastrointestinal Gastrointestinal: Denies abdominal pain, melena, nausea or vomiting Genitourinary Genitourinary ED: Reports other Details: Decreased urinary stream ; Denies dysuria, hematuria or urinary frequency Musculoskeletal Musculoskeletal: Denies arthralgias or myalgias Integumentary Denies rash Neurologic Neurologic: Denies paresthesias or weakness Psychiatric Psychiatric: Denies anxiety or depression Endocrine Endocrinology: Denies cold intolerance or heat intolerance Hematologic/Lymphatic Hematologic/Lymphatic: Reports systems reviewed and no addt'l complaints, except as documented EXAM Physical Exam Const Vital Signs: 06/09/24 19:04 06/09/24 20:00 06/09/24 20:04 Temperature 97.7 F L Temperature Source Oral Pulse Rate 47 L 43 L Respiratory Rate 18 12 Blood Pressure 168/68 H 164/67 H Blood Pressure Mean 101 99 Pulse Ox 100 95 96 Oxygen Delivery Method Room Air Room Air Room Air Positive well nourished and well developed Constitutional Narrative: BMI is 39.2. Patient's heart rate is in the 40s. General Appearance ED: well developed; Negative for pallor HEENT Reports moist mucous membranes HEENT Narrative: Head is atraumatic normocephalic. Ears normal. Nares patent. Eyes PERRL and EOMs intact bilaterally General Eye ED: Negative for pale conjunctiva or scleral icterus Neck no lymphadenopathy, supple and no JVD Chest Wall inspection of chest normal and palpation of chest normal Resp normal respiratory effort and No clear to auscultation bilaterally Auscultation: rales left base and wheezes expiratory wheezes (Left lower lobe only.) Cardio regular rate, S1 normal heart sound, S2 normal heart sound and no murmurs Rate: bradycardia GI normal to inspection, nondistended, normoactive bowel sounds, non-tender, non-distended and no masses; Negative for hepatosplenomegaly Auscultation: normoactive bowel sounds Palpation: soft Back/Spine no CVA tenderness Extremity Extremity Narrative: Otherwise normal the edema is pitting. General Extremety ED: Yes edema General Extremity: edema Neuro oriented x3, CN's II-XII intact bilaterally and no sensory deficits noted Sensorium / Orientation: alert Psych mental status grossly normal Skin no rashes or lesions noted, no wounds and skin turgor normal General Skin Exam: Negative for jaundice or pallor MDM MDM MDM Narrative Medical decision making narrative: Patient with atrial flutter. Onset is unknown. Patient has no chest pressure, tightness heaviness. He has had some increased swelling of his legs compared to normal and orthopnea that is new. He has no history of congestive heart failure or coronary artery disease. He does have a history of pernicious anemia, hyper tension and hypothyroidism. He is on Plavix. He also has history of benign prostatic hypertrophy. Patient was scheduled for EGD by Dr. Campoverde today. This was canceled. I was informed by Dr. Boone the Dr. Kapoor showed him the EKG and thought the workup to be done as an outpatient. Patient was sent over by his PCP because he had atrial flutter on his EKG. Lab Data Attestation: I reviewed the patient's lab results. Lab results narrative: CBC is unremarkable. Basic metabolic panel is unremarkable. Glucose was elevated 110 with normal CO2 anion gap. BUN to creatinine ratio is elevated at 24-1. First lipase is normal at 15. Labs: Laboratory Results - last 24 hr 06/09/24 19:23 WBC 7.6 RBC 4.84 Hgb 13.3 Hct 43.5 MCV 89.9 MCH 27.5 MCHC 30.6 L RDW Std Deviation 53.5 H RDW Coeff of Alessandra 16.3 H Plt Count 178 MPV 10.4 Immature Gran % (Auto) 0.300 Neut % (Auto) 70.5 H Lymph % (Auto) 16.8 L [place] % (Auto) 5.9 Eos % (Auto) 5.5 H Baso % (Auto) 1.0 Absolute Neuts (auto) 5.4 Absolute Lymphs (auto) 1.28 Nucleated RBC % 0 Sodium 140 Potassium 4.1 Chloride 107 Carbon Dioxide 30.0 Anion Gap 3 L BUN 23 H Creatinine 0.95 Estim Creat Clear Calc 78.73 Est GFR (MDRD) Af Amer 97 Est GFR (MDRD) Non-Af 80 BUN/Creatinine Ratio 24.3 H Glucose 110 H Calcium 8.9 Troponin I High Sens 15 Radiography Chest X-Ray - ED: 1 View and Read by ED Physician (Suspect torturous aorta. The hilum is prominent. Cardiac silhouette size is unremarkable. Lung parenchyma is normal. [place] structures are unremarkable., 195) Diagnostic Testing: Clinical Impression(s) from Imaging Studies Chest X-Ray 06/09/24 19:39 IMPRESSION: Stable chest. 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 Boone. He requested 24-hour Holter. The patient is to call the office tomorrow.) Discharge Plan Triage Chief Complaint: Palpitations ED Provider: Adryan Estrada Dx/Rx/DC Orders Clinical Impression: Atrial flutter, Difficulty swallowing, Elevated blood pressure reading with diagnosis of hypertension, Bradycardia with 41-50 beats per minute Instructions: ED Atrial Flutter Prescriptions: No Action cyanocobalamin (vitamin B-12) 1,000 mcg tablet 1,000 mcg PO DAILY clopidogrel 75 mg tablet 75 mg PO DAILY potassium chloride 20 mEq tablet,ER particles/crystals 20 meq PO DAILY finasteride 5 mg tablet 5 mg PO DAILY duloxetine 30 mg capsule,delayed release(DR/EC) 30 mg PO DAILY trazodone 50 MG tablet 50 mg PO QHS Patient Comments: sleep tamsulosin 0.4 MG capsule 0.4 mg PO DAILY Patient Comments: prostate pravastatin 20 MG tablet 20 mg PO QHS Patient Comments: cholesterol lisinopril 5 MG tablet 2.5 mg PO DAILY Patient Comments: blood pressure Eye Multivitamin 2,148 mcg-113 mg-45 mg-17.4mg tablet 1 tab PO BID Rx Instructions: administer with AM and PM meals Centrum Silver Men [id number] mcg tablet 1 tab PO DAILY gabapentin 600 mg tablet 1,800 mg PO Q12H furosemide 20 mg tablet 20 mg PO QODAY levothyroxine 125 mcg tablet 125 mcg PO MOTUWETHFR levothyroxine 200 mcg capsule 250 mcg PO SUSA zinc gluconate 50 mg tablet 50 mg PO DAILY Other Ambulatory Orders: Cardiac Holter Monitor, 24 Hrs (Routine) Timeframe: 1 Day Facility: [facility] - Location: Cardiovascular Services Ordered By: Dr. Adryan Estrada Primary Care Provider: Jose Maurice Referrals: Beni Boone MD [Med Staff - Active Staff] - As soon as possible Jose Maurice MD [Primary Care Provider] - Activity Restrictions/Additional Instructions: Call Dr. Mcarthur's office in the morning for appointment in the coming days Print Language: Bengali Disposition Disposition: Home, Self Care
[2024-06-09 20:00] VITALS: O2SAT 95
[2024-06-09 20:04] VITALS: BP 164/67; PULSE 43; RESP 12; O2SAT 96
[2024-06-09 20:44] VITALS: BP 156/72; PULSE 39; RESP 18; TEMP 37.1; O2SAT 99
[2024-06-09 20:45] VITALS: BP 137/67; PULSE 42; RESP 15; O2SAT 96
[2024-06-09 21:26] LABS: Reflex Troponin-HS? (from REC) Y
== END 2024-06-09 22:10 | disposition home or self-care (01) ==
PROVIDERS: Emergency Provider Emergency Medicine; PCP Family Medicine; Visit Provider Emergency Medicine
DX: I48.92 Unspecified atrial flutter (principal); I10 Essential (primary) hypertension; R13.10 Dysphagia, unspecified; R00.1 Bradycardia, unspecified; E78.00 Pure hypercholesterolemia, unspecified; Z79.899 Other long term (current) drug therapy; Z86.73 Personal history of transient ischemic attack (TIA), and cerebral infarction without residual deficits
CPT/HCPCS: 71045; 80048; 84484; 85025; 93005; 99284; A4216

== ENCOUNTER → 2024-06-09 | Outpatient (CLI) | payer MEDICARE, SELFPAY | END | disposition home or self-care (01) | LOC: CVS 20:53 | PROVIDERS: PCP Family Medicine; Visit Provider Emergency Medicine | DX: I48.92 Unspecified atrial flutter (principal) | CPT/HCPCS: 93225; 93226 ==

== ENCOUNTER 2024-06-17 15:12 | Emergency (ER) | payer MEDICARE, SELFPAY ==
[2024-06-17 15:14] VITALS: PULSE 52; RESP 16; TEMP 36.6; O2SAT 97; BMI 40.6
[2024-06-17 15:16] VITALS: BP 135/61
--- NOTE | 2024-06-17 18:15 | RAD_ITS ---
INDICATION: knee pain EXAMINATION/TECHNIQUE: X-RAY - LEFT XR Knee Complete 4 Views COMPARISON: FINDINGS: SOFT TISSUES: Infrapatellar subcutaneous edema. No radiopaque foreign body. Vascular calcifications. BONES/JOINTS: No acute fracture or subluxation.. Normal alignment. Preservation of the joint space.. No sclerotic or destructive changes observed. Chondrocalcinosis of the menisci. RAD/Knee 4 or More Views IMPRESSION: Infrapatellar subcutaneous edema. Degenerative changes. Chondrocalcinosis of the menisci. Electronically Signed: Mukul Villarreal DO at 19:14 EST Reading Location ID and State: [facility] / [place] Tel [phone], Service support ,
--- NOTE | 2024-06-17 18:19 | EDS_ITS ---
HPI <YOVANY Gallo - Last Filed: 06/17/24 20:50> History of Present Illness Chief Complaint: Lower Extremity Injury Narrative Narrative: Patient presenting today with his due to concerns for a bruise to his left lower extremity. He had a mechanical fall on Friday when he tripped over a end table and hit his left leg against the ground. He did start Eliquis on Friday due to a history of atrial flutter. His reports that the bruise appears to be getting darker and seems to be spreading, they called the PCP and spoke with the nurse who recommended he come in for evaluation. Patient reports generalized pain to his left knee but is able to ambulate without difficulty. He denies any other injury from the fall. PFS <YOVANY Gallo - Last Filed: 06/17/24 20:50> [facility] Medical History Persistent atrial fibrillation Mobitz (type) I (Wenckebach's) atrioventricular block Prostate disease Excessive bleeding Gastric reflux Neuropathy Wears glasses Cancer Thyroid disease Arthritis Hx of bladder cancer Bladder disease Restless legs Back pain Injury of head and neck Syncope Difficulty swallowing Non-smoker TIA (transient ischemic attack) History of pain when walking History of edema History of stress test Cardiology follow-up encounter Esophageal dysphagia High cholesterol Hypertension Home Medications ?Medication ?Instructions ?Recorded ?Last Taken ?Type pravastatin 20 mg tablet 20 mg PO QHS 05/09/15 Unknown History tamsulosin 0.4 mg capsule 0.4 mg PO DAILY 05/09/15 Unknown History trazodone 50 mg tablet 50 mg PO QHS 05/09/15 Unknown History cyanocobalamin (vitamin B-12) 1,000 mcg PO DAILY 04/14/24 Unknown History 1,000 mcg tablet duloxetine 30 mg capsule,delayed 30 mg PO DAILY . 04/14/24 Unknown History release finasteride 5 mg tablet 5 mg PO DAILY 04/14/24 Unknown History gabapentin 600 mg tablet 1,800 mg PO Q12H neuropathy 04/14/24 06/09/24 History hrksnyvc-ke-isgqm 300 mcg-K 60 1 tab PO DAILY 04/14/24 Unknown History mcg-lycop 600 mcg-lutein 300 mcg tablet (Centrum Silver Men) potassium chloride 20 mEq 20 meq PO DAILY 04/14/24 Unknown History tablet,extended release(part/cryst) vitamins A,C,F-exuu-zgtdqq 2,148 1 tab PO BID supplement 04/14/24 Unknown History mcg-113 mg-45 mg-17.4 mg tablet (Eye Multivitamin) furosemide 20 mg tablet 20 mg PO QODAY 06/08/24 Unknown History levothyroxine 125 mcg tablet 125 mcg PO MOTUWETHFR 06/08/24 06/09/24 History levothyroxine 200 mcg capsule 250 mcg PO SUSA 06/08/24 Unknown History zinc gluconate 50 mg tablet 50 mg PO DAILY 06/08/24 Unknown History apixaban 5 mg tablet (Eliquis) 5 mg PO BID #60 tabs 06/14/24 Unknown Rx lisinopril 2.5 mg tablet mg PO 06/14/24 Unknown History Allergy/AdvReac Type Severity Reaction Status Date / Time oxybutynin (From Ditropan) Allergy Intermediate Nausea/Vom/ Verified 06/17/24 15:14 Diarrhea prednisone AdvReac Nausea Verified 06/17/24 15:14 Surgical History History of esophagogastroduodenoscopy (EGD) History of laparoscopic cholecystectomy Hx of colonoscopy Hx of repair of left rotator cuff Hx of repair of right rotator cuff Hx of microdiscectomy History of lumbar spinal fusion Social History Smoking Status: Never smoker alcohol intake: never substance use type: does not use ROS <YOVANY Gallo - Last Filed: 06/17/24 20:50> ROS ED Constitutional Constitutional ED: Denies chills or fever(s) Cardiovascular Cardiovascular: Denies chest pain Respiratory/Chest Respiratory/Chest: Denies dyspnea Musculoskeletal Musculoskeletal: Reports arthralgias; Denies myalgias Integumentary Reports other Details: Bruise Neurologic Neurologic: Denies paresthesias EXAM <YOVANY Gallo - Last Filed: 06/17/24 20:50> Physical Exam Const Vital Signs: 06/17/24 15:14 06/17/24 15:16 06/17/24 19:13 Temperature 98 F Temperature Source Oral Pulse Rate 52 L 51 L Respiratory Rate 16 18 Blood Pressure 135/61 H 145/75 H Blood Pressure Mean 85 98 Pulse Ox 97 95 Oxygen Delivery Method Room Air Room Air 06/17/24 19:33 Temperature 98.3 F Temperature Source Pulse Rate 60 Respiratory Rate 12 Blood Pressure 132/66 H Blood Pressure Mean 88 Pulse Ox 94 Oxygen Delivery Method Positive well nourished, well developed and no apparent distress General Appearance ED: well developed HEENT Reports normocephalic and head/scalp atraumatic Mouth ED: Yes moist mucous membranes normal Eyes PERRL and EOMs intact bilaterally Neck full ROM and supple Chest Wall inspection of chest normal Resp normal respiratory effort and clear to auscultation bilaterally Cardio regular rate and regular rhythm Back/Spine normal ROM and normal to inspection Extremity full ROM Extremity Narrative: Moderate ecchymosis to the medial aspect of the left lower thigh that somewhat extends proximally and posteriorly. The bruising does appear to be older, he is neurovascularly intact distally. He does have moderate edema to the left knee with full range of motion, extensor mechanism intact. Generalized pain to palpation to the left knee. Neuro oriented x3, CN's II-XII intact bilaterally, moves all extremities, no focal motor deficits and no sensory deficits noted Sensorium / Orientation: awake and alert Psych mental status grossly normal and thought process normal Skin no rashes or lesions noted and no wounds <Dr. Dexter Bland MD - Last Filed: 06/17/24 22:32> Physical Exam Const Vital Signs: 06/17/24 15:14 06/17/24 15:16 06/17/24 19:13 Temperature 98 F Temperature Source Oral Pulse Rate 52 L 51 L Respiratory Rate 16 18 Blood Pressure 135/61 H 145/75 H Blood Pressure Mean 85 98 Pulse Ox 97 95 Oxygen Delivery Method Room Air Room Air 06/17/24 19:33 Temperature 98.3 F Temperature Source Pulse Rate 60 Respiratory Rate 12 Blood Pressure 132/66 H Blood Pressure Mean 88 Pulse Ox 94 Oxygen Delivery Method [facility] <YOVANY Gallo - Last Filed: 06/17/24 20:50> [facility] Narrative Medical decision making narrative: Patient presenting today with concerns for a bruise to the medial aspect of his left thigh that he has had over the last several days after mechanical fall occurred on Friday causing him to hit his left leg against the ground. He is on Eliquis for A-fib. He had concerns that the bruise was appearing darker and was starting to spread posteriorly. The bruise does appear to be a few days old, I have low suspicion for active arterial bleeding. It is primarily the distal and medial aspect of the left thigh and does somewhat spread proximally and posteriorly. CBC obtained to assess an H&H, this is unremarkable at 12.8 and 41.5. X-ray of the left knee obtained due to his left knee swelling and this shows infrapatellar subcutaneous edema. Extensor mechanism to the left knee is intact and he is able to ambulate without difficulty. Patient has been reassured. Compression and ice recommended. Recommended he follow-up with his PCP, return instructions were discussed. Patient discharged home in stable condition. Lab Data Attestation: I reviewed the patient's lab results. Labs: Laboratory Results - last 24 hr 06/17/24 18:50 WBC 8.6 RBC 4.66 Hgb 12.8 L Hct 41.5 MCV 89.1 MCH 27.5 MCHC 30.8 L RDW Std Deviation 54.5 H RDW Coeff of Alessandra 16.8 H Plt Count 157 MPV 10.6 Immature Gran % (Auto) 0.500 Neut % (Auto) 76.9 H Lymph % (Auto) 13.7 L [place] % (Auto) 5.5 Eos % (Auto) 2.6 Baso % (Auto) 0.8 Absolute Neuts (auto) 6.6 Absolute Lymphs (auto) 1.17 Nucleated RBC % 0 Radiography X-Ray: Read by ED Physician Diagnostic Testing: Clinical Impression(s) from Imaging Studies Knee X-Ray 06/17/24 18:15 IMPRESSION: Infrapatellar subcutaneous edema. Degenerative changes. Chondrocalcinosis of the menisci. Electronically Signed: Mukul Villarreal DO at 19:14 EST Reading Location ID and State: [facility] / [place] Tel [phone], Service support , <Dr. Dexter Bland MD - Last Filed: 06/17/24 22:32> [facility] Lab Data Labs: Laboratory Results - last 24 hr 06/17/24 18:50 WBC 8.6 RBC 4.66 Hgb 12.8 L Hct 41.5 MCV 89.1 MCH 27.5 MCHC 30.8 L RDW Std Deviation 54.5 H RDW Coeff of Alessandra 16.8 H Plt Count 157 MPV 10.6 Immature Gran % (Auto) 0.500 Neut % (Auto) 76.9 H Lymph % (Auto) 13.7 L [place] % (Auto) 5.5 Eos % (Auto) 2.6 Baso % (Auto) 0.8 Absolute Neuts (auto) 6.6 Absolute Lymphs (auto) 1.17 Nucleated RBC % 0 Radiography Diagnostic Testing: Clinical Impression(s) from Imaging Studies Knee X-Ray 06/17/24 18:15 IMPRESSION: Infrapatellar subcutaneous edema. Degenerative changes. Chondrocalcinosis of the menisci. Electronically Signed: Mukul Villarreal DO at 19:14 EST Reading Location ID and State: [facility] / [place] Tel [phone], Service support , Treatment and Re-Evaluation Narrative: I have personally performed a face to face assessment of the patient and have reviewed the VALENTE Note. I performed a substantive portion of the visit including all aspects of the following. My ren findings include: History is fall 2-3 days ago accidental, landing on his left knee, he thinks anteriorly but is not exactly sure. Bruising started medial distal thigh and knee, and has progressed more posteriorly and a little distally. It is sore, but able to walk on it. Denies any symptoms of anemia. No numbness or weakness distally. No other injuries. Just started anticoagulant for atrial flutter and has seen cardiology. Exam is ecchymosis distal left medial thigh, seems to be spreading posteriorly but does not appear to be active bleeding. On several examinations it did not change. It is in the popliteal fossa and a little in the proximal calf. There is some early yellow-green discoloration more anteriorly, consistent with aging where it started as per the patient. There is medial knee pain but he has excellent range of motion there is some generalized swelling in this area but all compartments are soft and nondistended. I can barely feel a pulse through the edema of his feet which appears chronic and symmetric, he has a brisk 2- second cap refill. Medical Decison Making 4 view x-ray series of the left knee on my interpretation shows no acute fracture. Degenerative changes are noted. The patient does not have compartment syndrome and I do not think he has an active hemorrhage. states that they were told to come to the ER because of concern of a possible hematoma. As I discussed with them, whether there is a hematoma present or whether this is simply traumatic ecchymosis is clinically irrelevant, the treatment would be the same since he does not have any evidence of compartment syndrome, anemia/blood loss anemia, or suspicion for active extravasation to require CT angiography. Reassured, advised to continue ice, compression, continue the Eliquis given the risk/benefit profile, and we discussed reasons to return. Other additions or changes: [None] Discharge Plan Triage Chief Complaint: Lower Extremity Injury ED Midlevel Provider: Radha Robles ED Provider: Dexter Bland Dx/Rx/DC Orders Clinical Impression: Traumatic ecchymosis of left thigh, Chronic anticoagulation, Contusion of knee, left Instructions: ED Contusion, Lower Extremity, ED Hematoma Prescriptions: No Action cyanocobalamin (vitamin B-12) 1,000 mcg tablet 1,000 mcg PO DAILY potassium chloride 20 mEq tablet,ER particles/crystals 20 meq PO DAILY finasteride 5 mg tablet 5 mg PO DAILY duloxetine 30 mg capsule,delayed release(DR/EC) 30 mg PO DAILY lisinopril 2.5 mg tablet PO Eliquis 5 mg tablet 5 mg PO BID Qty: 60 3RF trazodone 50 MG tablet 50 mg PO QHS Patient Comments: sleep tamsulosin 0.4 MG capsule 0.4 mg PO DAILY Patient Comments: prostate pravastatin 20 MG tablet 20 mg PO QHS Patient Comments: cholesterol Eye Multivitamin 2,148 mcg-113 mg-45 mg-17.4mg tablet 1 tab PO BID Rx Instructions: administer with AM and PM meals Centrum Silver Men [phone] mcg tablet 1 tab PO DAILY gabapentin 600 mg tablet 1,800 mg PO Q12H furosemide 20 mg tablet 20 mg PO QODAY levothyroxine 125 mcg tablet 125 mcg PO MOTUWETHFR levothyroxine 200 mcg capsule 250 mcg PO SUSA zinc gluconate 50 mg tablet 50 mg PO DAILY Primary Care Provider: Jose Maurice Referrals: Jose Maurice MD [Primary Care Provider] - 5-7 Days Activity Restrictions/Additional Instructions: Follow-up with your PCP and return for any worsening of your symptoms. Print Language: Welsh Disposition Disposition: Home, Self Care Discharge Date/Time: 06/17/24 19:38
[2024-06-17 19:11] LABS: Absolute Lymphocyte Count 1.17 X10^3/uL (0.83-4.51); Absolute Neutrophil Count 6.6 X10^3/uL (2.0-7.7); Basophil# 0.07 X10^3/uL; Basophil% 0.8 % (0-1); Eosinophil# 0.22 X10^3/uL; Eosinophils% 2.6 % (0-5); Hematocrit 41.5 % (40-54); Hemoglobin 12.8 g/dL (13.0-16.5); Lymphocyte # 1.17 X10^3/ul (0.83-4.51); Lymphocyte % 13.7 % (19-41); Mean Corp Hgb Conc 30.8 g/dL (32-36); Mean Corpuscular Hgb 27.5 pg (27.0-32.0); Mean Corpuscular Volume 89.1 fL (80-94); Mean Platelet Vol. 10.6 fl (6.2-12.0); Monocyte# 0.47 X10^3/uL; Monocyte% 5.5 % (0-10); NRBC Flagged by Analyzer 0 % (0-5); Neutrophil % 76.9 % (47-70); Platelet Count 157 K/mm3 (150-450); RBC Distribution Width CV 16.8 % (11.6-14.6); RBC Distribution Width SD 54.5 fl (35.1-43.9); Red Blood Count 4.66 M/mm3 (4.6-6.2); White Blood Count 8.6 K/mm3 (4.4-11.0)
[2024-06-17 19:13] VITALS: BP 145/75; PULSE 51; RESP 18; O2SAT 95
[2024-06-17 19:33] VITALS: BP 132/66; PULSE 60; RESP 12; TEMP 36.8; O2SAT 94
== END 2024-06-17 19:38 | disposition home or self-care (01) ==
PROVIDERS: Physician Assistant; Emergency Provider Emergency Medicine; PCP Family Medicine; Referring Provider Emergency Medicine; Visit Provider Emergency Medicine
DX: S70.12XA Contusion of left thigh, initial encounter (principal); I48.19 Other persistent atrial fibrillation; S80.02XA Contusion of left knee, initial encounter; W01.0XXA Fall on same level from slipping, tripping and stumbling without subsequent striking against object, initial encounter; I10 Essential (primary) hypertension; E78.00 Pure hypercholesterolemia, unspecified; Z79.01 Long term (current) use of anticoagulants; Z79.899 Other long term (current) drug therapy
CPT/HCPCS: 36415; 73564; 85025; 99282

== ENCOUNTER → 2024-06-28 | Outpatient (CLI) | payer MEDICARE, SELFPAY ==
--- NOTE | 2024-06-28 13:29 | RAD_ITS ---
STUDY: X-RAY CHEST REASON FOR EXAM: Male, 83 years old. For Micra VR pacemaker implant TECHNIQUE: Frontal and lateral views of the chest. COMPARISON: 06/09/2024. FINDINGS: The lungs are clear and expanded. There is no demonstrated pleural abnormality. Normal size heart. Normal mediastinum and katherine. Normal visualized pulmonary arteries. There is atherosclerotic tortuosity of the aortic arch and descending thoracic aorta. There are diffuse degenerative changes of the visualized thoracic spine. Normal visualized ribs, clavicles, and shoulders. There is no demonstrated abnormality of the visualized soft tissue structures of the upper abdomen. RAD/Chest PA and Lateral IMPRESSION: No definite acute or significant abnormality seen. Electronically Signed: Sae Liao MD at 15:57 EST ,
[2024-06-28 14:01] LABS: Bacteria 0 SEEN /hpf (None Seen); Mucous, Urine 0 SEEN /hpf (<or=2+); Red Blood Cells-Urine 0 SEEN /hpf (0-5)
[2024-06-28 14:37] LABS: Hematocrit 42.3 % (40-54); Mean Corp Hgb Conc 30.7 g/dL (32-36); Mean Corpuscular Hgb 27.4 pg (27.0-32.0); Mean Corpuscular Volume 89.2 fL (80-94); Mean Platelet Vol. 10.3 fl (6.2-12.0); Platelet Count 190 K/mm3 (150-450); RBC Distribution Width CV 16.9 % (11.6-14.6); RBC Distribution Width SD 54.3 fl (35.1-43.9); Red Blood Count 4.74 M/mm3 (4.6-6.2); White Blood Count 8.5 K/mm3 (4.4-11.0)
[2024-06-28 14:48] LABS: International Normalized Ratio 1.3; Prothrombin Time (Protime)PT. 16.7 SECONDS (11.7-14.9)
[2024-06-28 15:36] LABS: Anion Gap 1 (5-15); BUN 22 mg/dL (7-18); BUN/Creat Ratio 22.9 RATIO (10-20); Calcium,Total 9.1 mg/dL (8.5-10.1); Chloride 106 mmol/L (98-107); Creatinine, Serum 0.96 mg/dL (0.70-1.30); EST Glomerular Filtration Rate 79 mL/min (>60); Est Glom Filt Rate - Afr Amer 96 mL/min (>60); Glucose 117 mg/dL (74-106); Potassium 4.2 mmol/L (3.5-5.1); Sodium Level 141 mmol/L (136-145)
[2024-06-28 17:06] LABS: Color, Urine Yellow (Yellow); Glucose, Dipstick Normal (Normal); Ketone-Dipstick Negative (Negative); Leukocyte Esterase-Dipstick Negative /ul (Negative); Nitrite-Dipstick Negative (Negative); Occult Blood-Urine Negative /ul (Negative); Protein-Dipstick 15 mg/dl (Negative); Urine Bilirubin Dipstick Negative (Negative); Urine Clarity Clear (Clear); Urine Urobilinogen 8 mg/dl (Normal)
[2024-06-28 19:23] LABS: Squamous Epithelial Cells - UA 0-5 SEEN /hpf (0-5); Transitional Epithelial - Ur 0-5 SEEN /hpf (0-5); White Blood Cells 0-5 SEEN /hpf (0-5)
== END | disposition home or self-care (01) ==
PROVIDERS: PCP Family Medicine; Referring Provider Physician Assistant Medical; Visit Provider Physician Assistant Medical
DX: I44.1 Atrioventricular block, second degree (principal); I48.92 Unspecified atrial flutter; I48.19 Other persistent atrial fibrillation; R00.1 Bradycardia, unspecified
CPT/HCPCS: 36415; 71046; 80048; 81001; 85027; 85610

== ENCOUNTER 2024-07-19 14:59 | Observation (INO) | payer MEDICARE, SELFPAY ==
[2024-07-16 07:51] VITALS: BMI 39.6
--- NOTE | 2024-07-16 16:27 | HP.PCM_ITS ---
History and Physical Date of Admission: 07/19/24 Regan Arango is an 83-year-old gentleman that presents here today to establish with us. He was in the emergency room on June 09, 2024 with new onset of atrial flutter. He previously was established with [facility] cardiology for hypertension and SVT. He also has a hx of a TIA and is on Plavix. He did have a 14-day event monitor in 2022 which did demonstrate 1 episode of second- degree AV block type I. He is not on any rate limiting medications. He was last seen by them in November 2023. Pt sts that he was told that he was just a hair away of needing a PPM. Patient presented to the emergency room on 06/09/2024 with new onset of atrial flutter. He was scheduled to have an EGD by Dr. Campoverde however it was canceled when he was noted to be in atrial flutter. PCP had recommended that he come to the emergency room for further evaluation. Patient was not symptomatic with his onset of atrial flutter. Labs were normal. ER physician spoke with Dr. Boone and he recommended a 24-hour Holter monitor. This did demonstrate 100% atrial flutter. Average heart rate 50 bpm, minimum heart rate 30 bpm, maximum heart rate 88 bpm. Longest R to R 2.1 seconds. Patient does have fatigue. This is not necessarily new. He does have shortness of breath and again this is not necessarily new. He is not very active. He has not had any near-syncope or syncope. He does not have any bleeding issues. [facility] Medical History (Updated 06/14/24 @ 13:15 by Malika PEDROZA, PA) Persistent atrial fibrillation Mobitz (type) I (Wenckebach's) atrioventricular block Prostate disease Excessive bleeding Gastric reflux Neuropathy Wears glasses Cancer Thyroid disease Arthritis Hx of bladder cancer Bladder disease Restless legs Back pain Injury of head and neck Syncope Difficulty swallowing Non-smoker TIA (transient ischemic attack) History of pain when walking History of edema History of stress test Cardiology follow-up encounter Esophageal dysphagia High cholesterol Hypertension Surgical History History of esophagogastroduodenoscopy (EGD) History of laparoscopic cholecystectomy Hx of colonoscopy Hx of repair of left rotator cuff Hx of repair of right rotator cuff Hx of microdiscectomy History of lumbar spinal fusion Social History Smoking Status: Never smoker alcohol intake: never substance use type: does not use ROS Const Const: Positive for fatigue, weakness and other (uses a walker at home) Eyes Eyes: Negative for transient loss of vision or change in vision ENT ENT: Positive for balance problems; Negative for dizziness or Nosebleed/epistaxis Cardio Chest Pain: No Palpitations: No (not aware of palpitations) Edema: Bilateral (not new, has been worked up, venous insuff) Muscle aches with walking: None Resp Respiratory: Positive for SOB with activity (sometimes with exertion) and Cough; Negative for SOB at rest, SOB orthopnea\SOB lying down or Coughing up blood/hemoptysis GI GI: Positive for Difficulty Swallowing; Negative nausea, vomiting, heartburn, bright, red blood in stools or black,tarry stools : Negative for hematuria Musc Musc: Positive for muscle aches/ myalgia, muscle weakness, joint pain and balance problems Neuro Neuro: Positive for weakness; Negative for dizziness, lightheadedness, near syncope or syncope Doron Hematologic/Lymphatic: Negative for easy bleeding or easy bruising Endo Endo: Positive for fatigue Cardiology Exam Const Appearance: cooperative, healthy appearing and well developed Nutritional Appearance: obese Orientation: alert, awake and oriented x3 Limitations: physical limitations (in WC) Head Head: normal to inspection and normocephalic Ears: hearing grossly normal bilaterally Nose: external nose normal Mouth: oral mucosae normal Eyes General: appearance normal, both eyes and all related structures Eyelids: eyelids normal Conjunctivae: conjunctivae normal Pupils: PERRL EOM: EOM intact bilaterally Neck Neck: normal visual inspection and no JVD; Negative no lymphadenopathy Carotids: Negative bruit Chest Chest inspection: normal inspection of the chest Auscultation: Bilateral: Clear to Auscultation Cardio Palpation: normal PMI Rate: bradycardic Rhythm: irregularly irregular Heart sounds: S1 normal and S2 normal; Negative rub, gallop or murmur GI GI: normal to inspection, soft and obese Neuro General: patient alert, patient awake, patient oriented x3, patient oriented to and CN's II-XI intact bilaterally Extremities Pulses: Normal: Right Radial Pulse and Left Radial Pulse and Diminished: Right Posterior Tibial Pulse and Left Posterior Tibial Pulse Lower Extremity Edema: +1: Bilateral Psych Psychological: normal affect Assessment & Plan Assessment/Plan (1) Persistent atrial fibrillation: (2) Bradycardia: PLAN: Plan Patient is in persistent atrial fibrillation, this is noted with his Holter monitor that was done. He has not had any significant pauses however he is br adycardic. He is not on any rate limiting medications. He does have documented heart rates in the 20s. Will start patient on Eliquis. He does not need any rate limiting medications. Because of his significant bradycardia feel that patient would benefit from a pacemaker.
[2024-07-19] VITALS (10 sets, daily range): BP systolic 122–143; BP diastolic 59–74; PULSE 59–61; RESP 16–18; TEMP 36.4–36.7; O2SAT 91–96
--- NOTE | 2024-07-19 15:12 | CL.IE_ITS ---
Patient: JUAN MANUEL MASON Study Date: 07/19/2024 Performing: Beni Boone MD : 1940 Age: 83 Gender: male PROCEDURES PERFORMED [id number])INITIAL PACER INSERT+DUAL LEADS INDICATIONS Atrial fibrillation and complete heart block PROCEDURE DETAILS The patient was brought to the Catheterization Lab in the postabsorptive nonsedated state. Informed consent was obtained prior to the procedure. Local anesthetic was given subcutaneously to the left subclavian region with Lidocaine 2%. Access was achieved and a guidewire was advanced into the left subclavian vein. Incision was made to the left upper chest. PPM ventricular lead was inserted / positioned to right ventricular apex. PPM ventricular lead testing performed. PPM ventricular lead testing performed. PPM atrial lead was inserted / positioned to the right atrial appendage. PPM atrial lead testing performed. The Ventricular PM lead sutured in place with 2-0 Silk. The Atrial lead sutured in place with 2-0 Silk. Device pocket was irrigated with antibiotic. Subcutaneous closure was completed. Skin closure was completed. Steri-strips applied to left subclavicular incision. Instrument, sponge, and needle counts were noted to be normal. The patient tolerated the procedure well. Estimated Blood Loss: 3 ml's IMPLANTED / EX-PLANTED DEVICES IMPLANTED DEVICE(S): PPM Generator - Stone Splitter: [employer]/Eckert, Model # [id number] , Serial # [id number] Atrial lead - Stone Splitter: [employer]/Eckert, Model # [id number] , Serial # [id number] Ventricular lead - Stone Splitter: [employer]/Eckert, Model # [id number] , Serial # [id number] DEVICE PARAMETERS ATRIAL LEAD PARAMETERS: P wave- .3-5 (mV) threshold- af (V) impedence- 545 (OHMS) VENTRICULAR LEAD PARAMETERS: R wave- 8.1 (mV) threshold- .9 (V) impedence- 600 (OHMS) DEVICE PARAMETERS: Mode- 0 Mode- doo Lower rate- 60 Upper rate- 120 CONCLUSIONS / RECOMMENDATIONS Device Conclusions: Successful implantation of a dual chamber pacemaker battery change and replacement Device Recommendations: Follow up with Primary Care Physician PROCEDURE MEDICATIONS Versed 1 mg IV Fentanyl 25 mcg IV Fentanyl 25 mcg IV Versed 1 mg IV Fentanyl 25 mcg IV Oxygen: 2 L/min via nasal cannula Ancef 2 Gm IV @ 07/19/2024 13:43:22 Signed By Beni Boone MD On 07/19/2024 15:11:08 Beni Boone MD
[2024-07-19] MEDS: Gabapentin 600 MG Tablet 1800 MG PO (22:01)
[2024-07-19] MEDS: Pravastatin 20 MG Tablet PO (22:01)
[2024-07-19] MEDS: traZODone 50 MG Tablet PO (22:02)
[2024-07-19] MEDS: Acetaminophen 325 MG Tablet PO (23:26)
[2024-07-20 03:15] VITALS: BP 116/58; PULSE 60; RESP 18; TEMP 36.5; O2SAT 94
--- NOTE | 2024-07-20 05:10 | RAD_ITS ---
INDICATION: Post permanant ICD/Pacemaker -- inspiration/expiration. Arms Down. Wet read to EXAMINATION/TECHNIQUE: X-RAY - XR Chest 2 Views AP portable. Inspiration/expiration. 5:21 AM. COMPARISON: Prior study dated: 06/28/2024 FINDINGS: LINES/DEVICES: Pacemaker device overlying the left chest with dual leads terminating in the region of the right atrium and right ventricle.. LUNGS: No consolidation. No pneumothorax. MEDIASTINUM: Unremarkable. CARDIAC SILHOUETTE: Not enlarged. BONES AND SOFT TISSUES: No acute abnormalities. RAD/Chest Insp/Exp 2 View IMPRESSION: New pacemaker as described. No pneumothorax. Electronically Signed: Rosalinda Evans MD at 7:24 EST ,
[2024-07-20] MEDS: Levothyroxine 125 MCG Tablet PO (05:49)
[2024-07-20 08:02] VITALS: BP 129/62; PULSE 61; RESP 17; TEMP 36.4; O2SAT 95
[2024-07-20] MEDS: Lisinopril 2.5 MG Tablet PO (08:07)
[2024-07-20] MEDS: DULoxetine Hcl 30 MG Capsule PO (08:07)
[2024-07-20] MEDS: Tamsulosin HCl 0.4 MG Capsule PO (08:07)
[2024-07-20] MEDS: Multivitamins,Ther W-Minerals Tablet 1 TABLET PO (08:07)
[2024-07-20] MEDS: Gabapentin 600 MG Tablet 1800 MG PO ×2 (08:08→21:32)
[2024-07-20] MEDS: Acetaminophen 325 MG Tablet PO (08:08)
[2024-07-20] MEDS: Finasteride 5 MG Tablet PO (08:09)
--- NOTE | 2024-07-20 08:40 | PCM.PN.CARD ---
Subjective Subjective Patient seen and evaluated. Appears to be doing well. No complaints Objective Data Vital Signs: Vital Signs Temp Pulse Resp BP Pulse Ox O2 Del Method 97.6 F L 61 17 129/62 H 95 Room Air 07/20/24 08:02 07/20/24 08:02 07/20/24 08:02 07/20/24 08:02 07/20/24 08:02 07/20/24 08:02 Oxygen Delivery Method Room Air Weight: 284 lb Body Mass Index (BMI) 39.6 Intake & Output: Intake and Output for Last 24 Hours 07/18/24 07/19/24 07/20/24 23:59 23:59 23:59 Intake Total 200 / 200 Output Total 800 / 800 0 / 0 Balance -600 / -600 0 / 0 Cardiology Labs/Tests Rhythm: EKG: ECHO: Stress Test: Cardiac Cath: PCI: CT Surgery: Holter monitor: EPS: PPM: CXR: Chest CT Scan: Radiography Diagnostic Testing: Radiology Impression Chest X-Ray 07/20/24 05:10 IMPRESSION: New pacemaker as described. No pneumothorax. Electronically Signed: Rosalinda Evans MD at 7:24 EST , Physical Exam Const alert, oriented x3 and no apparent distress General Appearance: cooperative HEENT hearing grossly normal bilaterally Head and Scalp: atraumatic Eyes EOMs intact bilaterally Neck General: normal visual inspection Chest inspection of chest normal and palpation of chest normal Resp normal respiratory effort Auscultation: clear to auscultation bilaterally Cardio regular rate, regular rhythm, S1 normal heart sound and S2 normal heart sound Jugular Venous Distention: JVD GI normal to inspection, nondistended, normoactive bowel sounds Extremity normal capillary refill and no pedal edema Peripheral Pulses: Yes pulses 2+ throughout and femoral pulses present Skin no rashes or lesions noted Neuro oriented x3 and CN's II-XII intact bilaterally Psych Appearance: grossly normal and appropriate Assessment & Plan Assessment/Plan (1) Persistent atrial fibrillation: PLAN: Patient with persistent atrial fibrillation and controlled ventricular response rate will continue current medical therapy. (2) Status post cardiac pacemaker procedure: PLAN: Patient is status post permanent pacemaker implantation. Pacemaker interrogation demonstrates normal function. He will require some OT PT which will be carried out today to see whether he can manage himself. Outpatient will be arranged
[2024-07-20 09:16] VITALS: BP 129/62; PULSE 61; RESP 17; TEMP 36.4; O2SAT 95
[2024-07-20 13:35] LABS: Absolute Neutrophil Count 5.9 X10^3/uL (2.0-7.7); Basophil# 0.08 X10^3/uL; Eosinophil# 0.27 X10^3/uL; Eosinophils% 3.5 % (0-5); Hematocrit 42.2 % (40-54); Lymphocyte % 12.9 % (19-41); Mean Corp Hgb Conc 30.8 g/dL (32-36); Mean Corpuscular Hgb 27.3 pg (27.0-32.0); Mean Corpuscular Volume 88.5 fL (80-94); Mean Platelet Vol. 10.5 fl (6.2-12.0); Monocyte# 0.49 X10^3/uL; Monocyte% 6.3 % (0-10); NRBC Flagged by Analyzer 0 % (0-5); Neutrophil # 5.87 X10^3/uL (2.7-7.7); Neutrophil % 75.9 % (47-70); Platelet Count 167 K/mm3 (150-450); RBC Distribution Width CV 17.8 % (11.6-14.6); RBC Distribution Width SD 56.3 fl (35.1-43.9); Red Blood Count 4.77 M/mm3 (4.6-6.2); White Blood Count 7.7 K/mm3 (4.4-11.0)
--- NOTE | 2024-07-20 13:40 | CASEMGMT ---
SW was informed by physician that patient is interested in going to [facility] TCU short term. SW made a referral to [facility] TCU. TCU can accept. SW met with patient and family and they confirmed they want TCU. SW let them know TCU can accept patient. SW explained patient will stay here until insurance approves patient. This could be a day or two. Most likely tomorrow. SW will let them know when SW hears something. SW answered their questions. Plan: d/c to [facility] TCU pending insurance approval. Camille Kyle OPERATIONS SUPPORT COORDINATOR JONG
[2024-07-20 14:22] LABS: Anion Gap 5 (5-15); BUN 19 mg/dL (7-18); BUN/Creat Ratio 18.3 RATIO (10-20); Calcium,Total 8.7 mg/dL (8.5-10.1); Chloride 107 mmol/L (98-107); Creatinine, Serum 1.04 mg/dL (0.70-1.30); EST Glomerular Filtration Rate 72 mL/min (>60); Est Glom Filt Rate - Afr Amer 87 mL/min (>60); Estimated Creatinine Clearance 72.32 ml/min; Glucose 128 mg/dL (74-106); Potassium 4.1 mmol/L (3.5-5.1); Sodium Level 140 mmol/L (136-145)
[2024-07-20 15:11] VITALS: BP 151/60; PULSE 59; RESP 17; TEMP 36.7; O2SAT 94
--- NOTE | 2024-07-20 15:56 | CASEMGMT ---
Met with patient to complete PEARSON form. PEARSON form explained to patient, his and daughter who voiced understanding but were hesitant to sign form. Original form placed in pt?s chart and copy provided to patient. Amber Dumont, Discharge Planning Asst
[2024-07-20 21:00] VITALS: BP 133/67; PULSE 65; RESP 14; TEMP 36.4; O2SAT 94
[2024-07-20] MEDS: Pravastatin 20 MG Tablet PO (21:31)
[2024-07-20] MEDS: traZODone 50 MG Tablet PO (21:31)
[2024-07-20 22:00] VITALS: O2SAT 94
[2024-07-21] VITALS (9 sets, daily range): BP systolic 130–144; BP diastolic 62–76; PULSE 60–65; RESP 13–18; TEMP 36.6–36.7; O2SAT 92–96
[2024-07-21] MEDS: Levothyroxine 125 MCG Tablet PO (04:55)
[2024-07-21] MEDS: Multivitamins,Ther W-Minerals Tablet 1 TABLET PO (09:49)
[2024-07-21] MEDS: Tamsulosin HCl 0.4 MG Capsule PO (09:49)
[2024-07-21] MEDS: Lisinopril 2.5 MG Tablet PO (09:49)
[2024-07-21] MEDS: Finasteride 5 MG Tablet PO (09:50)
[2024-07-21] MEDS: DULoxetine Hcl 30 MG Capsule PO (09:50)
[2024-07-21] MEDS: Gabapentin 600 MG Tablet 1800 MG PO ×2 (09:59→20:35)
--- NOTE | 2024-07-21 17:00 | PCM.PN.CARD ---
Subjective Subjective Patient seen ad evalueted Objective Data Vital Signs: Vital Signs Temp Pulse Resp BP Pulse Ox O2 Del Method 98.1 F 62 16 130/74 H 96 Room Air 07/21/24 14:35 07/21/24 16:00 07/21/24 14:35 07/21/24 14:35 07/21/24 14:35 07/21/24 14:35 Oxygen Delivery Method Room Air Weight: 284 lb Body Mass Index (BMI) 39.6 Intake & Output: Intake and Output for Last 24 Hours 07/19/24 07/20/24 07/21/24 23:59 23:59 23:59 Intake Total 200 / 200 500 / 500 240 / 240 Output Total 800 / 800 550 / 550 Balance -600 / -600 -50 / -50 240 / 240 Lab / Micro Data 07/20/24 13:15 07/20/24 13:15 Cardiology Labs/Tests Rhythm: EKG: ECHO: Stress Test: Cardiac Cath: PCI: CT Surgery: Holter monitor: EPS: PPM: CXR: Chest CT Scan: Physical Exam Const alert, oriented x3 and no apparent distress General Appearance: cooperative HEENT hearing grossly normal bilaterally Head and Scalp: atraumatic Eyes EOMs intact bilaterally Neck General: normal visual inspection Chest inspection of chest normal and palpation of chest normal Resp normal respiratory effort Auscultation: clear to auscultation bilaterally Cardio regular rate, regular rhythm, S1 normal heart sound and S2 normal heart sound Jugular Venous Distention: JVD GI normal to inspection, nondistended, normoactive bowel sounds Extremity normal capillary refill and no pedal edema Peripheral Pulses: Yes pulses 2+ throughout and femoral pulses present Skin no rashes or lesions noted Neuro oriented x3 and CN's II-XII intact bilaterally Psych Appearance: grossly normal and appropriate Assessment & Plan Assessment/Plan (1) Persistent atrial fibrillation: PLAN: Patient with persistent atrial fibrillation and controlled ventricular response rate will continue current medical therapy. (2) Status post cardiac pacemaker procedure: PLAN: Patient is status post permanent pacemaker implantation. Pacemaker interrogation demonstrates normal function. He will require some OT PT which will be carried out and arrangements were made for him to go to the transitional care unit.
[2024-07-21] MEDS: traZODone 50 MG Tablet PO (20:32)
[2024-07-21] MEDS: Pravastatin 20 MG Tablet PO (20:32)
[2024-07-21] MEDS: Acetaminophen 325 MG Tablet PO (20:35)
[2024-07-22 03:05] VITALS: BP 120/70; PULSE 60; RESP 14; TEMP 36.5; O2SAT 94
[2024-07-22] MEDS: Levothyroxine 125 MCG Tablet PO (05:58)
--- NOTE | 2024-07-22 07:38 | CASEMGMT ---
Patient is approved to go to TCU. SW notified physician. Plan: d/c to [facility] TCU under skilled level of care. Camille SUNSHINE
--- NOTE | 2024-07-22 07:42 | PCM.PN.CARD ---
Subjective Subjective Patient seen and evaluated. Doing well. Objective Data Vital Signs: Vital Signs Temp Pulse Resp BP Pulse Ox O2 Del Method 97.7 F L 60 14 120/70 94 Room Air 07/22/24 03:05 07/22/24 03:05 07/22/24 03:05 07/22/24 03:05 07/22/24 03:05 07/22/24 03:05 Oxygen Delivery Method Room Air Weight: 284 lb Body Mass Index (BMI) 39.6 Intake & Output: Intake and Output for Last 24 Hours 07/20/24 07/21/24 07/22/24 23:59 23:59 23:59 Intake Total 500 / 500 480 / 480 Output Total 550 / 550 925 / 925 Balance -50 / -50 480 / 130 -925 / -925 Lab / Micro Data 07/20/24 13:15 07/20/24 13:15 Cardiology Labs/Tests Rhythm: EKG: ECHO: Stress Test: Cardiac Cath: PCI: CT Surgery: Holter monitor: EPS: PPM: CXR: Chest CT Scan: Physical Exam Const alert, oriented x3 and no apparent distress General Appearance: cooperative HEENT hearing grossly normal bilaterally Head and Scalp: atraumatic Eyes EOMs intact bilaterally Neck General: normal visual inspection Chest inspection of chest normal and palpation of chest normal Resp normal respiratory effort Auscultation: clear to auscultation bilaterally Cardio regular rate, regular rhythm, S1 normal heart sound and S2 normal heart sound Jugular Venous Distention: JVD GI normal to inspection, nondistended, normoactive bowel sounds Extremity normal capillary refill and no pedal edema Peripheral Pulses: Yes pulses 2+ throughout and femoral pulses present Skin no rashes or lesions noted Neuro oriented x3 and CN's II-XII intact bilaterally Psych Appearance: grossly normal and appropriate Assessment & Plan Assessment/Plan (1) Persistent atrial fibrillation: PLAN: Patient with persistent atrial fibrillation and controlled ventricular response rate will continue current medical therapy. (2) Status post cardiac pacemaker procedure: PLAN: Patient is status post permanent pacemaker implantation. Pacemaker interrogation demonstrates normal function. He will require some OT PT which will be carried out and arrangements were made for him to go to the transitional care unit later today.
--- NOTE | 2024-07-22 07:43 | DCINST_ITS ---
Discharge Instructions Diet Discharge Diet: No restrictions (as you feel able. No excessive stretching. No lifting your arm over your head (keep elbow below shoulder level) until seen for your pacemaker check. Do not lift your elbow away from your side until you are seen for your first visit. Keep the arm sling on if it helps remind you not to lift your arm.) DC O2, CPAP, BIPAP needs Home O2 Discharge instructions: No Dressing / Incision Discharge Activity: May Not Drive May shower in (days): 2 Additional Activity Instructions:: May shower or bathe on [day 3]. Do not scrub the incision or soak in the tub. Just wash with soap and let the water run over the incision. Gently pat dry with towel. Medications: Take your pain medication as directed. Refer to your discharge instruction sheet for a list of medications you are to take. Dressing / Incision Call your doctor if your incision/area has: Continuous Slow Oozing, Sudden Increased Bleeding, Increased Pain/ Swelling, Increased Redness, Foul Smelling Discharge and Swelling at the incision site Call your doctor if you observe: Fever of 101 or Higher, Shortness of breath, Dizziness, Fainting spells, Swelling in the ankles, Chest pain, Prolonged hiccupping and Increased palpitations (irregular heartbeat) Suture Line Care: Avoid Pulling/Pushing and Avoid Pinching/Bending Cleanse incision/area with: Do not get Incision Wet and Keep Dressing Clean & Dry Additional Dressing/Incision Instructions:: When dressing is removed, wash and dry incision. Keep covered with a light bandage if it is rubbing against your clothing. Do not cover the incision with an airtight bandage. Change the bandage daily. Do not remove steri strips. The strips will fall off on their own. Follow Up Care Please Follow Up With: Beni Boone MD When: Pacer follow-up on August 04 at 11:30 AM Test Results: Test results from this visit will be discussed in further detail at your follow- up appointment, if applicable. Discharge Plan Admission Admit Date/Time: 07/19/24 14:59 Attending Provider: Marvel Arreguin Primary Care Provider: Jose Maurice Discharge Orders/Prescriptions Prescriptions: No Action cyanocobalamin (vitamin B-12) 1,000 mcg tablet 1,000 mcg PO DAILY potassium chloride 20 mEq tablet,ER particles/crystals 20 meq PO DAILY finasteride 5 mg tablet 5 mg PO DAILY duloxetine 30 mg capsule,delayed release(DR/EC) 30 mg PO DAILY lisinopril 2.5 mg tablet 2.5 mg PO DAILY Eliquis 5 mg tablet 5 mg PO BID Qty: 60 3RF trazodone 50 MG tablet 50 mg PO QHS Patient Comments: sleep tamsulosin 0.4 MG capsule 0.4 mg PO DAILY Patient Comments: prostate pravastatin 20 MG tablet 20 mg PO QHS Patient Comments: cholesterol Eye Multivitamin 2,148 mcg-113 mg-45 mg-17.4mg tablet 1 tab PO BID Rx Instructions: administer with AM and PM meals Centrum Silver Men [phone] mcg tablet 1 tab PO DAILY gabapentin 600 mg tablet 1,800 mg PO Q12H furosemide 20 mg tablet 20 mg PO QODAY levothyroxine 125 mcg tablet 125 mcg PO MOTUWETHFR levothyroxine 200 mcg capsule 250 mcg PO SUSA zinc gluconate 50 mg tablet 50 mg PO DAILY Referrals / Follow Up: Jose Maurice MD [Primary Care Provider] -
--- NOTE | 2024-07-22 08:44 | DS.PCM_ITS ---
Providers Date of Admission: 07/19/24 Date of Discharge: 07/22/24 Primary Care Physician: Dr. Jose Maurice MD Reason For Visit: [employer] Leadless pacemaker Implant #[id number] Diagnosis Discharge Diagnosis (1) Persistent atrial fibrillation: Status: Ruled-out Code(s): I48.19 - Other persistent atrial fibrillation (2) Status post cardiac pacemaker procedure: Status: Acute Code(s): Z95.0 - Presence of cardiac pacemaker Medications at Discharge Home Medications pravastatin 20 mg tablet 20 mg PO QHS 05/09/15 tamsulosin 0.4 mg capsule 0.4 mg PO DAILY 05/09/15 trazodone 50 mg tablet 50 mg PO QHS 05/09/15 cyanocobalamin (vitamin B-12) 1,000 mcg tablet 1,000 mcg PO DAILY 04/14/24 duloxetine 30 mg capsule,delayed release 30 mg PO DAILY . 04/14/24 finasteride 5 mg tablet 5 mg PO DAILY 04/14/24 gabapentin 600 mg tablet 1,800 mg PO Q12H neuropathy 04/14/24 zxfhpgyr-xl-bwkkl 300 mcg-K 60 mcg-lycop 600 mcg-lutein 300 mcg tablet (Centrum Silver Men) 1 tab PO DAILY 04/14/24 potassium chloride 20 mEq tablet,extended release(part/cryst) 20 meq PO DAILY 04/14/24 vitamins A,C,A-skod-dzjvkk 2,148 mcg-113 mg-45 mg-17.4 mg tablet (Eye Multivitamin) 1 tab PO BID supplement 04/14/24 furosemide 20 mg tablet 20 mg PO QODAY 06/08/24 levothyroxine 125 mcg tablet 125 mcg PO MOTUWETHFR 06/08/24 levothyroxine 200 mcg capsule 250 mcg PO SUSA 06/08/24 zinc gluconate 50 mg tablet 50 mg PO DAILY 06/08/24 apixaban 5 mg tablet (Eliquis) 5 mg PO BID #60 tabs 06/14/24 Held on 07/22/24. Instructions: Hold Eliquis until pacer check in office by cardiology lisinopril 2.5 mg tablet 2.5 mg PO DAILY 06/14/24 Hospital Course Operations - (Pacemaker placement) Procedures EKG and - (Chest x-ray) Summary of Care Provided Hospital Course: Patient is an 83-year-old white male who presented to [facility] on 07/19/2024 for pacemaker placement. He had previously been established with [facility] cardiology for hypertension and SVT. He had a 14-day event monitor in 2022 which demonstrated 1 episode of second-degree AV block type I. He was last seen including clinic cardiology in November 2023 and was told he was close to requiring a pacemaker at that time. He presented the emergency department on 06/09/2024 with new onset atrial flutter. He was not symptomatic and this was noted incidentally when he presented for an EGD. A 24-hour Holter monitor was prescribed and he was noted to be at 100% in atrial flutter with a rate of 50 bpm and a minimum heart rate of 30 bpm with a maximum heart rate of 88 bpm. He was having fatigue and shortness of breath. He had no syncope or near syncope issues. He was started on Eliquis and was not requiring any rate limiting medications because of his significant bradycardia and scheduled for pacemaker. Pacemaker was placed by Dr. Boone on 07/19/2024. He was having some issues with debility and fatigue at home so PT and OT were consulted while he was hospitalized and they deemed that he would benefit from ongoing therapy services at discharge. He was accepted by the transitional care unit and pre- CERT was obtained on 07/22/2024. He was discharged there in stable condition. Instructions with regards to his pacemaker are per cardiology and the discharge instructions. He is to follow-up with his primary care physician within 1 week after discharge from TCU and with cardiology as directed by the grounds manager. Weight / BMI Weight Weight: 128.82 kg Body Mass Index (BMI) 39.6 ABG / Lab / Microbiology Data 07/20/24 13:15 07/20/24 13:15 D/C Instructions Discharge Diet: No restrictions (as you feel able. No excessive stretching. No lifting your arm over your head (keep elbow below shoulder level) until seen for your pacemaker check. Do not lift your elbow away from your side until you are seen for your first visit. Keep the arm sling on if it helps remind you not to lift your arm.) May shower in (days): 2 Additional Activity Instructions: May shower or bathe on [day 3]. Do not scrub the incision or soak in the tub. Just wash with soap and let the water run over the incision. Gently pat dry with towel. Medications: Take your pain medication as directed. Refer to your discharge instruction sheet for a list of medications you are to take. Call your doctor if your incision/area has: Continuous Slow Oozing, Sudden Increased Bleeding, Increased Pain/ Swelling, Increased Redness, Foul Smelling Discharge and Swelling at the incision site Call your doctor if you observe: Fever of 101 or Higher, Shortness of breath, Dizziness, Fainting spells, Swelling in the ankles, Chest pain, Prolonged hiccupping and Increased palpitations (irregular heartbeat) Suture Line Care: Avoid Pulling/Pushing and Avoid Pinching/Bending Cleanse incision/area with: Do not get Incision Wet and Keep Dressing Clean & Dry Additional Dressing/Incision Instructions: When dressing is removed, wash and dry incision. Keep covered with a light bandage if it is rubbing against your clothing. Do not cover the incision with an airtight bandage. Change the bandage daily. Do not remove steri strips. The strips will fall off on their own. DC O2, CPAP, BIPAP Needs Home O2 Discharge instructions: No Please Follow Up With: Beni Boone MD When: Pacer follow-up on August 04 at 11:30 AM Meaningful Use Info Meaningful Use Meaningful Use Diagnoses (Choose all that apply): None applicable Ischemic Stroke Statin Dosing Therapy Reference: STATIN DOSE THERAPY REFERENCE: * Patients > 75 years receive moderate or high dose statin therapy. * Patients 75 years or YOUNGER should receive HIGH intensity statin dose unless contraindicated. You will be required to document reason for non-treatment if statin daily dose does not meet guidelines. HIGH DOSE STATIN THERAPY DAILY Atorvastatin > than or = to 40 mg Rosuvastatin > than or = to 20 mg Amlodipine + Atorvastatin > than or = to 2.5/40 mg Ezetimibe + Simvastatin 10/80 mg Simvastatin 80mg Discharge Plan Admission Admit Date/Time: 07/19/24 14:59 Primary Reason for Your Visit: Sick sinus syndrome Attending Provider: Marvel Arreguin Primary Care Provider: Jose Maurice Discharge Orders/Prescriptions Prescriptions: Continued cyanocobalamin (vitamin B-12) 1,000 mcg tablet 1,000 mcg PO DAILY potassium chloride 20 mEq tablet,ER particles/crystals 20 meq PO DAILY finasteride 5 mg tablet 5 mg PO DAILY duloxetine 30 mg capsule,delayed release(DR/EC) 30 mg PO DAILY lisinopril 2.5 mg tablet 2.5 mg PO DAILY trazodone 50 MG tablet 50 mg PO QHS Patient Comments: sleep tamsulosin 0.4 MG capsule 0.4 mg PO DAILY Patient Comments: prostate pravastatin 20 MG tablet 20 mg PO QHS Patient Comments: cholesterol Eye Multivitamin 2,148 mcg-113 mg-45 mg-17.4mg tablet 1 tab PO BID Rx Instructions: administer with AM and PM meals Centrum Silver Men [phone] mcg tablet 1 tab PO DAILY gabapentin 600 mg tablet 1,800 mg PO Q12H furosemide 20 mg tablet 20 mg PO QODAY levothyroxine 125 mcg tablet 125 mcg PO MOTUWETHFR levothyroxine 200 mcg capsule 250 mcg PO SUSA zinc gluconate 50 mg tablet 50 mg PO DAILY Held Eliquis 5 mg tablet 5 mg PO BID Qty: 60 3RF Hold Instructions: Hold Eliquis until pacer check in office by cardiology Referrals / Follow Up: Beni Boone MD [Med Staff - Active Staff] - (As directed by cardiology) Jose Maurice MD [Primary Care Provider] - (1 week after discharge from TCU) Disposition Disposition (needs filled in before D/C Order can be placed): [facility] Facility
--- NOTE | 2024-07-22 08:45 | CASEMGMT ---
SW met with patient, his , and daughter. ESPERANZA let them know insurance has approved patient to go to TCU. All were in agreement and pleased with approval. Plan: d/c to [facility] TCU under skilled level of care. Camille SUNSHINE
--- NOTE | 2024-07-22 08:52 | TREXTCAR_ITS ---
Diet Diet Order/Speech Therapy: 07/19/24 Lunch Diet: Cardiac - Heart Healthy Routine Orders/Code Status Suppository Frequency: Daily PRN Routine Lab Work: CBC (1 week) and BMP (1 week) Code Status: Full Code DC O2, CPAP, BIPAP needs Home O2 Discharge instructions: No Wound(s) left upper chest: Wound Type: Surgical Incision Therapies Weight Bearing: Full weight bearing Extremity Affected:: Left Upper (Sling LUE until noted by cardiology otherwise) Physical Therapy: Eval and Treat Occupational Therapy: Eval and Treat Problem/Diagnosis (1) Persistent atrial fibrillation: Status: Ruled-out Code(s): I48.19 - Other persistent atrial fibrillation (2) Status post cardiac pacemaker procedure: Status: Acute Code(s): Z95.0 - Presence of cardiac pacemaker Allergies/Procedures Done in Hospital Allergies oxybutynin (From Ditropan) Allergy (Intermediate, Verified 06/17/24 15:14) Nausea/Vom/Diarrhea BRAIN FOG, WEAKNESS, DECREASED APPETITE prednisone Adverse Reaction (Verified 06/17/24 15:14) Nausea Procedures: EKG and - (Pacemaker placement/chest x-ray) Type of Care/Length of Stay Estimated LOS: Convalescent Care Less Than 30 days Type of Care Needed: Skilled Rehab Potential: Good Prognosis: Good Additional Orders/Day of Discharge Day of Discharge: 07/22/24 Follow Up Care Please Follow Up With: Beni Boone MD Discharge Plan Admission Admit Date/Time: 07/19/24 14:59 Primary Reason for Your Visit: Sick sinus syndrome Attending Provider: Marvel Arreguin Primary Care Provider: Jose Maurice Discharge Orders/Prescriptions Prescriptions: Continued cyanocobalamin (vitamin B-12) 1,000 mcg tablet 1,000 mcg PO DAILY potassium chloride 20 mEq tablet,ER particles/crystals 20 meq PO DAILY finasteride 5 mg tablet 5 mg PO DAILY duloxetine 30 mg capsule,delayed release(DR/EC) 30 mg PO DAILY lisinopril 2.5 mg tablet 2.5 mg PO DAILY trazodone 50 MG tablet 50 mg PO QHS Patient Comments: sleep tamsulosin 0.4 MG capsule 0.4 mg PO DAILY Patient Comments: prostate pravastatin 20 MG tablet 20 mg PO QHS Patient Comments: cholesterol Eye Multivitamin 2,148 mcg-113 mg-45 mg-17.4mg tablet 1 tab PO BID Rx Instructions: administer with AM and PM meals Centrum Silver Men [phone] mcg tablet 1 tab PO DAILY gabapentin 600 mg tablet 1,800 mg PO Q12H furosemide 20 mg tablet 20 mg PO QODAY levothyroxine 125 mcg tablet 125 mcg PO MOTUWETHFR levothyroxine 200 mcg capsule 250 mcg PO SUSA zinc gluconate 50 mg tablet 50 mg PO DAILY Held Eliquis 5 mg tablet 5 mg PO BID Qty: 60 3RF Hold Instructions: Hold Eliquis until pacer check in office by cardiology Referrals / Follow Up: Beni Boone MD [Med Staff - Active Staff] - (As directed by cardiology) Jose Maurice MD [Primary Care Provider] - (1 week after discharge from TCU) Disposition Disposition (needs filled in before D/C Order can be placed): [facility]
[2024-07-22 08:59] VITALS: BP 105/63; PULSE 63; RESP 16; TEMP 36.8; O2SAT 95
[2024-07-22] MEDS: Tamsulosin HCl 0.4 MG Capsule PO (09:04)
[2024-07-22] MEDS: Lisinopril 2.5 MG Tablet PO (09:04)
[2024-07-22] MEDS: Multivitamins,Ther W-Minerals Tablet 1 TABLET PO (09:04)
[2024-07-22] MEDS: DULoxetine Hcl 30 MG Capsule PO (09:04)
[2024-07-22] MEDS: Finasteride 5 MG Tablet PO (09:05)
[2024-07-22] MEDS: Gabapentin 600 MG Tablet 1800 MG PO (09:11)
--- NOTE | 2024-07-22 09:33 | NURSING ---
Report called by this RN to CON Jones on TCU at this time.
== END 2024-07-22 08:51 | disposition skilled nursing facility (03) ==
LOC: CLSP 15:21 → PCU 16:52
PROVIDERS: Admitting Provider Internal Medicine Cardiovascular Disease; PCP Family Medicine; Referring Provider Internal Medicine; Visit Provider Internal Medicine
DX: Z45.018 Encounter for adjustment and management of other part of cardiac pacemaker (principal); I48.19 Other persistent atrial fibrillation; I48.92 Unspecified atrial flutter; I44.2 Atrioventricular block, complete; I10 Essential (primary) hypertension; R53.81 Other malaise; E78.00 Pure hypercholesterolemia, unspecified; R53.83 Other fatigue; Z86.73 Personal history of transient ischemic attack (TIA), and cerebral infarction without residual deficits; Z79.01 Long term (current) use of anticoagulants; R06.02 Shortness of breath
CPT/HCPCS: 33208; 36415; 71046; 80048; 85025; 97162; 97166; 97530; 97535; 99152; 99153; 99221; C1894; G0378

== ENCOUNTER 2024-07-22 10:18 | Inpatient (IN) | payer MEDICARE, SELFPAY ==
[2024-07-22 10:38] VITALS: BP 118/83; PULSE 60; RESP 16; TEMP 36.2; O2SAT 95; BMI 39.5
[2024-07-22 12:12] VITALS: BMI 39.4
--- NOTE | 2024-07-22 15:07 | CASEMGMT ---
Social Work SW met with pt and completed initial assessment. Cotact information was verified. Pt confirms code status as full code. Copy of living will is on file, SW requested copy of HCPOA be brought in. Pt states his is looking for it at home and will bring it in when she has it. SW educated pt to [facility] insurance with NRD of 2/4 and that continued stay is not guaranteed with each review. Pt's goal is to return home with spouse. SW will continue to follow for DC planning. LUZ Le
--- NOTE | 2024-07-22 19:46 | HP.PCM_ITS ---
[facility] - General General Date of Admission: 07/22/24 Date of Service: 07/22/24 Chief Complaint: Here for rehabilitation. [facility] Narrative JUAN MANUEL MASON, is a 83 Male who presents with followin06/09/2024 New onset atrial flutter, 24 hour Holter showed 100% flutter. History of Hypertension, SVT, Stroke on Plavix. 14 day monitor showed second degree AV block Type 1. Average heart rate 50, minimum heart rate 30, maximum heart rate 96. Patient has fatigue. Heart rate as low as 20, on no rate limiting medications. Start Eliquis for atrial fibrillation, pacemaker recommended. 07/19/[address] [facility]. 07/19/2024 Dr. Boone performed placement of permanent pacemaker. 07/20/2024 Pre-[facility] TCU. 07/21/2024 PT/OT TCU. Patien has chronic neuropathy of bilateral lower extremities. He has numbness and difficulty with proprioception, he also has difficulty with balance. Due to PPM, his left upper extremity is sling, and patient requires strength from bilateral upper extremities to help him transfer, walk, go to bathroom. His elderly is unable to lift him. Safer to rehab first, then go home. 07/22/2024 Admit to TCU with debility, here for rehabilitation, strengthening, prior to discharge home with . [facility] Medical History (Updated 07/22/24 @ 19:[address] Simeon Gifford MD) Sick sinus syndrome Paroxysmal atrial fibrillation Persistent atrial fibrillation Mobitz (type) I (Wenckebach's) atrioventricular block Prostate disease Excessive bleeding Gastric reflux Neuropathy Wears glasses Cancer Thyroid disease Arthritis Hx of bladder cancer Bladder disease Restless legs Back pain Injury of head and neck Syncope Difficulty swallowing Non-smoker TIA (transient ischemic attack) History of pain when walking History of edema History of stress test Cardiology follow-up encounter Esophageal dysphagia High cholesterol Hypertension Home Medications ?Medication ?Instructions ?Recorded ?Last Taken ?Type pravastatin 20 mg tablet 20 mg PO QHS Cholesterol Unknown History tamsulosin 0.4 mg capsule 0.4 mg PO DAILY Urine retent ion 05/09/15 Unknown History trazodone 50 mg tablet 50 mg PO QHS sleep 05/09/15 Unknown History cyanocobalamin (vitamin B-12) 1,000 mcg PO DAILY suppl ement 04/14/24 Unknown History 1,000 mcg tablet duloxetine 30 mg capsule,delayed 30 mg PO DAILY . 03/24 09/13 Unknown History release finasteride 5 mg tablet 5 mg PO DAILY BPH 04/14/24 U nknown History gabapentin 600 mg tablet 1,800 mg PO Q12H neuropathy 04/14/24 07/19/24 History tsiyiyqc-vl-fqdtx 300 mcg-K 60 1 tab PO DAILY suppleme nt 04/14/24 Unknown History mcg-lycop 600 mcg-lutein 300 mcg tablet (Centrum Silver Men) potassium chloride 20 mEq 20 meq PO DAILY supplement 1 Unknown History tablet,extended release(part/cryst) vitamins A,C,T-ilya-pgmpbq 2,148 1 tab PO BID suppleme nt 04/14/24 Unknown History mcg-113 mg-45 mg-17.4 mg tablet (Eye Multivitamin) furosemide 20 mg tablet 20 mg PO QODAY Fluid retenti on 06/08/24 Unknown History levothyroxine 125 mcg tablet 125 mcg PO MOTUWETHFR Thy roid 06/08/24 07/19/24 History levothyroxine 200 mcg capsule 250 mcg PO SUSA Thyroid 06/08/24 Unknown History zinc gluconate 50 mg tablet 50 mg PO DAILY supplement 06/08/24 Unknown History apixaban 5 mg tablet (Eliquis) 5 mg PO BID Blood thinn er #60 tabs 06/14/24 Unknown Rx Held on 07/22/24. Instructions: Hold Eliquis until pacer check in office by cardiology lisinopril 2.5 mg tablet 2.5 mg PO DAILY BP 06/14/24 07/19/24 History Allergy/AdvReac Type Severity Reaction Status Date / Time oxybutynin (From Ditropan) Allergy Intermediate Nausea/Vom/ Verified 06/17/24 15:14 Diarrhea prednisone AdvReac Nausea Verified 06/17/24 15:14 Surgical History (Updated 07/22/24 @ 19:[address] Simeon Gifford MD) History of permanent cardiac pacemaker placement History of esophagogastroduodenoscopy (EGD) History of laparoscopic cholecystectomy Hx of colonoscopy Hx of repair of left rotator cuff Hx of repair of right rotator cuff Hx of microdiscectomy History of lumbar spinal fusion Social History (Updated 07/22/24 @ 19:[address] Simeon Gifford MD) household members: spouse Smoking Status: Never smoker alcohol intake: never substance use type: does not use ROS Constitutional Constitutional: Reports weakness; Denies chills, fever(s) or weight gain ENT HEENT: Denies headache(s), nasal congestion or nasal discharge Cardiovascular Cardiovascular: Denies chest pain or palpitations Respiratory/Chest Respiratory/Chest: Denies cough, excessive phlegm production or shortness of breath with exertion Gastrointestinal Gastrointestinal: Denies abdominal pain, nausea or vomiting Genitourinary Genitourinary: Denies dysuria Musculoskeletal Musculoskeletal: Denies joint pain or joint swelling Integumentary Integumentary: Denies rash or wounds Neurologic Neurologic: Denies focal weakness, numbness or tingling Psychiatric Psychiatric: Denies anxiety, auditory hallucinations, depression, homicidal ideation or suicidal ideation Vital Signs Vital Signs Vital Signs: 07/22/24 10:38 07/22/24 17:00 Temperature 97.2 F L Temperature Source Temporal Pulse Rate 60 Pulse Rhythm Regular Pulse Strength Normal (2+) Respiratory Rate 16 Respiratory Effort Normal Non-Labored Respiratory Depth Normal Respiratory Pattern Normal Blood Pressure 118/83 H Blood Pressure Mean 94 Pulse Ox 95 Oxygen Delivery Method Room Air Room Air Weight Weight: 128.367 kg Body Mass Index (BMI) 39.4 Physical Exam Const alert General Appearance: cooperative HEENT normocephalic Eyes PERRL and EOMs intact bilaterally Neck supple, no JVD and no carotid bruits Resp normal respiratory effort, normal air movement and clear to auscultation bilate rally Cardio regular rate and regular rhythm GI normal to inspection, nondistended, normoactive bowel sounds, non-tender and non-distended Extremity normal capillary refill Extremity Narrative: Left upper extremity sling. General Extremity: Negative for edema Skin no rashes or lesions noted General Skin Exam: no breakdown Neuro moves all extremities Psych affect normal Appearance: appropriate Assessment & Plan Assessment/Plan (1) Debility: (2) Sick sinus syndrome: (3) Status post cardiac pacemaker procedure: (4) Persistent atrial fibrillation: (5) Mobitz (type) I (Wenckebach's) atrioventricular block: (6) Neuropathy: (7) Imbalance: (8) Essential (primary) hypertension: (9) SVT (supraventricular tachycardia): (10) Stroke: (11) Hyperlipidemia: (12) BPH (benign prostatic hyperplasia): (13) Insomnia: (14) Depression: (15) Hypokalemia: (16) Hypothyroidism: PLAN: Plan 83 year old male with recent diagnosis of atrial fibrillation, second degree AV block Type 1, sick sinus syndrome, bradycardia, hospitalized for permanent pacemaker placement 07/19/[address] Boone, complicated by chronic neuropathy, imbalance, admitted to TCU with debility, here for rehabilitation, strengthening, prior to discharge home with . * Debility - PT/OT. * Pain - Tylenol 1000mg q6 prn pain (1-10). * Bowel - senna/colace 1 tablet bid, Magnesium citrate 300mL daily prn. * Adult immunization - Administer pneumonia vaccine, covid vaccine, flu vaccine as appropriate. * DVT prophylaxis - Eliquis held until pacer check with cardiology. * Atrial fibrillation with bradycardia status post pacemaker placement - Hold Eliquis 5mg bid until pacer check with Cardiology. * Vitamin B12 deficiency - B12 1000mcg daily. * Neuropathy - Duloxetine 30mg daily, Gabapentin 1800mg q12. * BPH - Finasteride 5mg daily, Tamsulosin 0.4mg daily. * Chronic HFpEF - Lisinopril 2.5mg daily, Furosemide 20mg every other day. * Hypothyroidism - Levothyroxine 125mcg daily 5 days per week, 250mcg daily 2 days per week. * Macular degeneration - Healthy Eyes 1 capsule bid. * Nutrition - MVI 1 tablet daily. * Hypokalemia - KCL 20meq daily. * Hyperlipidemia - Pravastatin 20mg qhs. 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 * Zinc deficiency - Zinc 50mg daily.
[2024-07-22] MEDS: Multivitamin (Healthy Eyes) Capsule 1 CAP PO (22:12)
[2024-07-22] MEDS: Pravastatin 20 MG Tablet PO (22:12)
[2024-07-22] MEDS: traZODone 50 MG Tablet PO (22:12)
[2024-07-22] MEDS: Senna/Docusate Sodium 1 Tablet PO (22:17)
[2024-07-22] MEDS: Gabapentin 600 MG Tablet 1800 MG PO (22:17)
[2024-07-22] MEDS: 0.9% Saline Lock 10 ML Syringe IV (22:20)
[2024-07-23] MEDS: Levothyroxine 125 MCG Tablet PO (05:47)
[2024-07-23 06:02] LABS: Absolute Lymphocyte Count 1.45 X10^3/uL (0.83-4.51); Absolute Neutrophil Count 5.9 X10^3/uL (2.0-7.7); Basophil% 1.1 % (0-1); Eosinophil# 0.73 X10^3/uL; Eosinophils% 8.2 % (0-5); Hematocrit 42.9 % (40-54); Hemoglobin 13.1 g/dL (13.0-16.5); Lymphocyte # 1.45 X10^3/ul (0.83-4.51); Lymphocyte % 16.4 % (19-41); Mean Corp Hgb Conc 30.5 g/dL (32-36); Mean Corpuscular Hgb 26.8 pg (27.0-32.0); Mean Corpuscular Volume 87.7 fL (80-94); Monocyte# 0.66 X10^3/uL; Monocyte% 7.4 % (0-10); NRBC Flagged by Analyzer 0 % (0-5); Neutrophil # 5.88 X10^3/uL (2.7-7.7); Neutrophil % 66.4 % (47-70); Platelet Count 164 K/mm3 (150-450); RBC Distribution Width CV 17.8 % (11.6-14.6); RBC Distribution Width SD 56.9 fl (35.1-43.9); Red Blood Count 4.89 M/mm3 (4.6-6.2); White Blood Count 8.9 K/mm3 (4.4-11.0)
[2024-07-23 06:44] LABS: Anion Gap 6 (5-15); BUN 23 mg/dL (7-18); BUN/Creat Ratio 22.1 RATIO (10-20); Calcium,Total 8.6 mg/dL (8.5-10.1); Chloride 106 mmol/L (98-107); Creatinine, Serum 1.04 mg/dL (0.70-1.30); EST Glomerular Filtration Rate 72 mL/min (>60); Est Glom Filt Rate - Afr Amer 87 mL/min (>60); Estimated Creatinine Clearance 72.19 ml/min; Glucose 121 mg/dL (74-106); Potassium 3.7 mmol/L (3.5-5.1); Sodium Level 139 mmol/L (136-145)
[2024-07-23] MEDS: Gabapentin 600 MG Tablet 1800 MG PO ×2 (08:46→19:59)
[2024-07-23] MEDS: Multivitamin (Healthy Eyes) Capsule 1 CAP PO ×2 (08:47→19:56)
[2024-07-23] MEDS: Cyanocobalamin 500 MCG Tablet 1000 MCG PO (08:47)
[2024-07-23] MEDS: Tamsulosin HCl 0.4 MG Capsule PO (08:47)
[2024-07-23] MEDS: DULoxetine Hcl 30 MG Capsule PO (08:47)
[2024-07-23] MEDS: Finasteride 5 MG Tablet PO (08:47)
[2024-07-23] MEDS: Zinc Sulfate 50 mg zinc (220 mg) ORAL capsule PO (08:47)
[2024-07-23] MEDS: Potassium Chloride Oral Tablet 20 MEQ PO (08:47)
[2024-07-23] MEDS: Multivitamins,Ther W-Minerals Tablet 1 TABLET PO (08:47)
[2024-07-23] MEDS: Lisinopril 2.5 MG Tablet PO (10:58)
[2024-07-23] MEDS: Tuberculin,Purif.prot.deriv. 50 TU/ML Vial 0.1 ML ID (10:59)
--- NOTE | 2024-07-23 12:06 | NURSING ---
Die Sinker Apprentice Note; Activity Asst: Vicki Spears is independent in his choice of daily activities. He enjoys music, roman catholic, family, reading and watching tv. Regan welcomes visits from the casting machine operator automatic and therapy dog when available. He was given word search puzzles for independent activities in room. Staff will remind him of weekly activities and respect his right to say no.
[2024-07-23 14:57] VITALS: BP 127/64; PULSE 60; RESP 14; TEMP 36.3; O2SAT 93
[2024-07-23] MEDS: traZODone 50 MG Tablet PO (19:56)
[2024-07-23] MEDS: Pravastatin 20 MG Tablet PO (19:56)
[2024-07-23] MEDS: Senna/Docusate Sodium 1 Tablet PO (19:56)
[2024-07-24] MEDS: Levothyroxine 100 MCG Tablet 250 MCG PO (05:50)
[2024-07-24] MEDS: Zinc Sulfate 50 mg zinc (220 mg) ORAL capsule PO (09:36)
[2024-07-24] MEDS: Cyanocobalamin 500 MCG Tablet 1000 MCG PO (09:36)
[2024-07-24] MEDS: Tamsulosin HCl 0.4 MG Capsule PO (09:37)
[2024-07-24] MEDS: Finasteride 5 MG Tablet PO (09:37)
[2024-07-24] MEDS: Multivitamin (Healthy Eyes) Capsule 1 CAP PO ×2 (09:37→20:39)
[2024-07-24] MEDS: DULoxetine Hcl 30 MG Capsule PO (09:37)
[2024-07-24] MEDS: Potassium Chloride Oral Tablet 20 MEQ PO (09:38)
[2024-07-24] MEDS: Lisinopril 2.5 MG Tablet PO (09:38)
[2024-07-24] MEDS: Senna/Docusate Sodium 1 Tablet PO ×2 (09:38→20:39)
[2024-07-24] MEDS: Furosemide 20 MG Tablet PO (09:38)
[2024-07-24] MEDS: Multivitamins,Ther W-Minerals Tablet 1 TABLET PO (09:38)
[2024-07-24] MEDS: Gabapentin 600 MG Tablet 1800 MG PO ×2 (09:42→20:38)
[2024-07-24 10:00] VITALS: BP 113/53; PULSE 60; RESP 18; TEMP 36.5; O2SAT 95
--- NOTE | 2024-07-24 14:34 | PHA.CONS_ITS ---
Documented by User: Gustavo Hastings 07/24/24 15:22 TCU RX Drug Regimen Review Subjective/Objective Subjective/Objective Subjective: TCU admission note. 83 year old male with recent diagnosis of atrial fibrillation, second degree AV block Type 1, sick sinus syndrome, bradycardia, hospitalized for permanent pacemaker placement 07/19/[address] Boone, complicated by chronic neuropathy, imbalance, admitted to TCU with debility, here for rehabilitation, strengthening, prior to discharge home with . Objective: Allergies oxybutynin (From Ditropan) Allergy (Intermediate, Verified 06/17/24 15:14) Nausea/Vom/Diarrhea BRAIN FOG, WEAKNESS, DECREASED APPETITE prednisone Adverse Reaction (Verified 06/17/24 15:14) Nausea Current Medications Generic Name Dose Route Start Last Admin Trade Name Freq PRN Reason Stop Dose Admin Acetaminophen 1,000 mg 07/22/24 20:07 Acetaminophen 500 Mg Tablet PO Q6H PRN PRN Pain Score 1-10 Cyanocobalamin 1,000 mcg 07/23/24 10:00 07/24/24 09:36 Cyanocobalamin 500 Mcg Tablet PO 1,000 mcg DAILY MICHAEL Administration Duloxetine HCl 30 mg 07/23/24 10:00 07/24/24 09:37 Duloxetine Hcl 30 Mg Capsule PO 30 mg DAILY MICHAEL Administration Finasteride 5 mg 07/23/24 10:00 07/24/24 09:37 Finasteride 5 Mg Tablet PO 5 mg DAILY MICHAEL Administration Furosemide 20 mg 07/24/24 10:00 07/24/24 09:38 Furosemide 20 Mg Tablet PO 20 mg QODAY MICHAEL Administration Protocol Gabapentin 1,800 mg 07/22/24 22:00 07/24/24 09:42 Gabapentin 600 Mg Tablet PO 1,800 mg Q12 MICHAEL Administration Levothyroxine Sodium 125 mcg 07/23/24 06:00 07/23/24 05:47 Levothyroxine 125 Mcg Tablet PO 125 mcg [id number]@0600 MICHAEL Administration Levothyroxine Sodium 250 mcg 07/24/24 06:00 07/24/24 05:50 Levothyroxine 100 Mcg Tablet PO 250 mcg SuSa@0600 MICHAEL Administration Lisinopril 2.5 mg 07/23/24 10:00 07/24/24 09:38 Lisinopril 2.5 Mg Tablet PO 2.5 mg DAILY MICHAEL Administration Protocol Magnesium Citrate 300 ml 07/22/24 20:07 Magnesium Citrate 300 Ml PO DAILY PRN Constipation Multivitamins/Minerals 1 cap 07/22/24 22:00 07/24/24 09:37 Multivitamin (Healthy Eyes) Capsule PO 1 cap BID MICHAEL Administration Multivitamins/Minerals 1 tablet 07/23/24 08:00 07/24/24 09:38 Multivitamins,Ther W-Minerals Tablet PO 1 tablet DAILYCM MICHAEL Administration Potassium Chloride 20 meq 07/23/24 10:00 07/24/24 09:38 Potassium Chloride Oral Tablet 20 Meq PO 20 meq DAILY MICHAEL Administration Pravastatin Sodium 20 mg 07/22/24 22:00 07/23/24 19:56 Pravastatin 20 Mg Tablet PO 20 mg QHS MICHAEL Administration Senna/Docusate Sodium 1 tablet 07/22/24 22:00 07/24/24 09:38 Senna/Docusate Sodium 1 Tablet PO 1 tablet BID MICHAEL Administration Sodium Chloride 10 - 40 ml 07/22/24 11:08 07/22/24 22:20 0.9% Saline Lock 10 Ml Syringe IV 20 ml UD PRN Administration SALINE FLUSH Tamsulosin HCl 0.4 mg 07/23/24 10:00 07/24/24 09:37 Tamsulosin Hcl 0.4 Mg Capsule PO 0.4 mg DAILY MICHAEL Administration Trazodone HCl 50 mg 07/22/24 22:00 07/23/24 19:56 Trazodone 50 Mg Tablet PO 50 mg QHS MICHAEL Administration Tuberculin PPD 0.1 ml 07/30/24 10:00 Tuberculin,Purif.Prot.Deriv. 50 Tu/Ml Vial ID 07/30/24 10:01 X1 ONE Zinc Sulfate 50 mg 07/23/24 10:00 07/24/24 09:36 Zinc Sulfate 50 Mg Zinc (220 Mg) Oral Capsule PO 50 mg DAILY MICHAEL Administration Problem List Hypothyroidism (Acute) Hypokalemia (Acute) Depression (Acute) Insomnia (Acute) BPH (benign prostatic hyperplasia) (Acute) Hyperlipidemia (Acute) Stroke (Acute) SVT (supraventricular tachycardia) (Acute) Essential (primary) hypertension (Acute) Imbalance (Acute) Neuropathy (Acute) Debility (Acute) Status post cardiac pacemaker procedure (Acute) Sick sinus syndrome (Chronic) Mobitz (type) I (Wenckebach's) atrioventricular block (Chronic) Vital Signs Temp Pulse Resp BP Pulse Ox O2 Del Method 97.4 F L 60 14 127/64 H 93 Room Air 07/23/24 14:57 07/23/24 14:57 07/23/24 14:57 07/23/24 14:57 07/23/24 14:57 07/23/24 21:00 Oxygen Delivery Method Room Air Weight: 128.367 kg Body Mass Index (BMI) 39.4 Sodium 139 mmol/L (136-145) 07/23/24 05:29 Potassium 3.7 mmol/L (3.5-5.1) 07/23/24 05:29 Chloride 106 mmol/L (98-107) 07/23/24 05:29 Carbon Dioxide 27.0 mmol/L (21.0-32.0) 07/23/24 05:29 Anion Gap 6 (5-15) 07/23/24 05:29 BUN 23 mg/dL (7-18) H 07/23/24 05:29 Creatinine 1.04 mg/dL (0.70-1.30) 07/23/24 05:29 Est GFR (MDRD) Af Amer 87 mL/min (>60) 07/23/24 05:29 Est GFR (MDRD) Non-Af 72 mL/min (>60) 07/23/24 05:29 BUN/Creatinine Ratio 22.1 RATIO (10-20) H 07/23/24 05:29 Glucose 121 mg/dL (74-106) H 07/23/24 05:29 Assessment/Plan: 1. Pain: acetaminophen 1000 mg Q6H PRN pain (1-10). The patient has not required any PRN doses of acetaminophen so far this admission. Please continue to monitor for pain, PRN medication administration and LFTs (AST/ALT = 13/17 U/L on 04/14/24). 2. Bowel: senna/docusate 1 tablet PO BID, magnesium citrate 300 mL PO daily PRN constipation. The patient has not required any PRN doses of magnesium citrate so far this admission, and the patient's last bowel movement was documented on 07/21/24. Please continue to monitor for bowel movements, for PRN medication administration, for constipation and diarrhea. 3. Chronic HFpEF: lisinopril 2.5 mg PO daily, furosemide 20 mg PO every other day. Please continue to monitor for s/s of a heart failure exacerbation such as shortness of breath or edema, renal function (serum creatinine = 1.04 mg/dL with creatinine clearance ~ 72 mL/min on 07/23/24), potassium levels (K = 3.7 mmol/L on 07/23/24), sodium levels (Na = 139 mmol/L on 07/23/24), cough, angioedema, blood pressures (recent range = 105-144/62-83 mmHg), and for s/s of dehydration. 4. Neuropathy: gabapentin 1800 mg PO Q12, duloxetine 30 mg PO daily. Please continue to monitor for nerve pain, renal function (serum creatinine = 1.04 mg/dL with creatinine clearance ~ 72 mL/min on 07/23/24), for dizziness/drowsiness, and for lower extremity edema, for s/s of serotonin syndrome, and sodium levels (Na = 139 mmol/L on 07/23/24). 5. Hypothyroidism: levothyroxine 125 mcg PO daily 5 days per week, 250mcg PO daily 2 days per week. Please continue to monitor for s/s of hypo/hyperthyroidism, and thyroid hormone levels (no recent thyroid hormone levels documented). Please consider obtaining thyroid hormone levels if c linically indicated. 6. BPH: finasteride 5 mg PO daily, tamsulosin 0.4 mg PO daily. Please continue to monitor for urinary retention and for s/s of orthostasis. 7. Hyperlipidemia: pravastatin 20 mg PO daily at bedtime. Please continue to monitor lipid levels (no recent lipid levels documented), LFTs (AST/ALT = 13/17 U/L on 04/14/24), and for myalgias. Please consider obtaining an annual lipid pa kenyon if clinically indicated. 8. Hypokalemia: potassium chloride 20 mEq PO daily. Please continue to monitor potassium levels (K = 3.7 mmol/L on 07/23/24), and for GI distress with potassium administration. 9. Vitamin B12 deficiency: cyanocobalamin 1000 mcg PO daily. Please continue to monitor for s/s of vitamin B12 deficiency and vitamin B12 levels (no recent vitamin B12 levels documented). 10. Zinc deficiency: zinc sulfate 50 mg PO daily. Please continue to monitor for s/s of zinc deficiency. 11. Macular degeneration: healthy eyes 1 capsule PO BID. Please continue to monitor eye health. 12. Nutrition: multivitamin 1 tablet PO daily. Please continue to monitor nutritional status. Assessment/Plan for indications treated with psychotropic medications: 1. Insomnia: trazodone 50 mg PO QHS. Please see provider note regarding stable chronic long-term use GDR not recommended. Please continue to monitor for insomnia, drowsiness, for s/s of serotonin syndrome, and dizziness/falls. Medical chart and medication regimen reviewed. The following medication irregularities or issues were identified: 1. Hypothyroidism: levothyroxine 125 mcg PO daily 5 days per week, 250mcg PO daily 2 days per week. Please consider obtaining thyroid hormone levels if clinically indicated. 2. Hyperlipidemia: pravastatin 20 mg PO daily at bedtime. Please consider obtaining an annual lipid panel if clinically indicated. Date Date of Note: 07/24/24 Documented by User: Dr. Simeon Gifford MD 07/25/24 09:29 TCU RX Drug Regimen Review Provider Comments Provider responsibility Provider Comments to Recommendations by Pharmacy Agree
[2024-07-24] MEDS: traZODone 50 MG Tablet PO (20:39)
[2024-07-24] MEDS: Pravastatin 20 MG Tablet PO (20:39)
[2024-07-24 22:00] VITALS: PULSE 61; RESP 16; O2SAT 99
[2024-07-25] MEDS: Acetaminophen 500 MG Tablet 1000 MG PO ×2 (03:50→21:17)
[2024-07-25] MEDS: Levothyroxine 100 MCG Tablet 250 MCG PO (05:51)
[2024-07-25] MEDS: Senna/Docusate Sodium 1 Tablet PO ×2 (08:45→21:11)
[2024-07-25] MEDS: Cyanocobalamin 500 MCG Tablet 1000 MCG PO (08:45)
[2024-07-25] MEDS: Multivitamins,Ther W-Minerals Tablet 1 TABLET PO (08:45)
[2024-07-25] MEDS: Multivitamin (Healthy Eyes) Capsule 1 CAP PO ×2 (08:45→21:11)
[2024-07-25] MEDS: Zinc Sulfate 50 mg zinc (220 mg) ORAL capsule PO (08:45)
[2024-07-25] MEDS: Finasteride 5 MG Tablet PO (08:45)
[2024-07-25] MEDS: Potassium Chloride Oral Tablet 20 MEQ PO (08:45)
[2024-07-25] MEDS: Lisinopril 2.5 MG Tablet PO (08:45)
[2024-07-25] MEDS: DULoxetine Hcl 30 MG Capsule PO (08:45)
[2024-07-25] MEDS: Tamsulosin HCl 0.4 MG Capsule PO (08:45)
[2024-07-25] MEDS: Gabapentin 600 MG Tablet 1800 MG PO ×2 (08:45→21:11)
[2024-07-25 10:27] VITALS: BP 107/59; PULSE 59; RESP 18; TEMP 36.2; O2SAT 97
[2024-07-25] MEDS: traZODone 50 MG Tablet PO (21:11)
[2024-07-25] MEDS: Pravastatin 20 MG Tablet PO (21:11)
[2024-07-26] MEDS: Levothyroxine 125 MCG Tablet PO (05:43)
[2024-07-26 06:24] LABS: Cholesterol 115 mg/dL (200); High Density Lipoprotein 43 mg/dL; Triglycerides 118 mg/dL; Very Low Density Lipoprotein 24 mg/dL (5-40)
[2024-07-26] MEDS: Tamsulosin HCl 0.4 MG Capsule PO (08:30)
[2024-07-26] MEDS: Senna/Docusate Sodium 1 Tablet PO ×2 (08:30→20:02)
[2024-07-26] MEDS: Potassium Chloride Oral Tablet 20 MEQ PO (08:30)
[2024-07-26] MEDS: Furosemide 20 MG Tablet PO (08:30)
[2024-07-26] MEDS: Multivitamins,Ther W-Minerals Tablet 1 TABLET PO (08:30)
[2024-07-26] MEDS: DULoxetine Hcl 30 MG Capsule PO (08:30)
[2024-07-26] MEDS: Multivitamin (Healthy Eyes) Capsule 1 CAP PO ×2 (08:30→20:02)
[2024-07-26] MEDS: Lisinopril 2.5 MG Tablet PO (08:31)
[2024-07-26] MEDS: Zinc Sulfate 50 mg zinc (220 mg) ORAL capsule PO (08:31)
[2024-07-26] MEDS: Finasteride 5 MG Tablet PO (08:31)
[2024-07-26] MEDS: Cyanocobalamin 500 MCG Tablet 1000 MCG PO (08:31)
[2024-07-26 08:35] VITALS: BP 118/62; PULSE 59
[2024-07-26] MEDS: Gabapentin 600 MG Tablet 1800 MG PO ×2 (09:12→20:02)
[2024-07-26 16:00] VITALS: BP 121/66; PULSE 61; RESP 14; TEMP 36.6; O2SAT 93
--- NOTE | 2024-07-26 17:40 | CON.PCM.GI_ITS ---
HPI Consult Data Date of Consult: 07/27/24 HPI Narrative Reason for Consultation: Dysphagia HPI Narrative: JUAN MANUEL MASON, is a 83 M hx of dysphagia but it was well controlled for a time period. Pt underwent EGD with dilation 9.01.11 and this helped with his dysphagia for some time. A few months ago he started again with sensation of food in his esophagus and choking episodes. He was recently hospitalized for what was believed to be aspiration pneumonia. He denies abdominal pain, n/v, constipation, diarrhea or melena. He was supposed to undergo an EGD with esophageal dilation. However he was discovered to be in new onset atrial fibrillation/a flutter and the procedure was canceled. He also has a hx of a TIA and is on Plavix. He did have a 14-day event monitor in 2022 which did demonstrate 1 episode of second-degree AV block type I. He is not on any rate limiting medications. He was last seen by them in November 2023. Pt sts that he was told that he was just a hair away of needing a PPM. Patient presented to the emergency room on 06/09/2024 with new onset of atrial flutter. Patient was not symptomatic with his onset of atrial flutter. He was also documented as having heart rates into the 20s so it was decided to put a permanent pacemaker. He was sent to the transitional care unit due to some balance issues along with some neuropathy. I was consulted to see him regarding his esophageal dysphagia. [facility] Medical History Sick sinus syndrome Paroxysmal atrial fibrillation Persistent atrial fibrillation Mobitz (type) I (Wenckebach's) atrioventricular block Prostate disease Excessive bleeding Gastric reflux Neuropathy Wears glasses Cancer Thyroid disease Arthritis Hx of bladder cancer Bladder disease Restless legs Back pain Injury of head and neck Syncope Difficulty swallowing Non-smoker TIA (transient ischemic attack) History of pain when walking History of edema History of stress test Cardiology follow-up encounter Esophageal dysphagia High cholesterol Hypertension Home Medications ?Medication ?Instructions ?Recorded ?Last Taken ?Type pravastatin 20 mg tablet 20 mg PO QHS Cholesterol Unknown History tamsulosin 0.4 mg capsule 0.4 mg PO DAILY Urine retent ion 05/09/15 Unknown History trazodone 50 mg tablet 50 mg PO QHS sleep 05/09/15 Unknown History cyanocobalamin (vitamin B-12) 1,000 mcg PO DAILY suppl ement 04/14/24 Unknown History 1,000 mcg tablet duloxetine 30 mg capsule,delayed 30 mg PO DAILY . 03/24 09/13 Unknown History release finasteride 5 mg tablet 5 mg PO DAILY BPH 04/14/24 U nknown History gabapentin 600 mg tablet 1,800 mg PO Q12H neuropathy 04/14/24 07/19/24 History hrbdofui-fn-ngqaj 300 mcg-K 60 1 tab PO DAILY suppleme nt 04/14/24 Unknown History mcg-lycop 600 mcg-lutein 300 mcg tablet (Centrum Silver Men) potassium chloride 20 mEq 20 meq PO DAILY supplement 1 Unknown History tablet,extended release(part/cryst) vitamins A,C,U-jjuq-vtgdjc 2,148 1 tab PO BID suppleme nt 04/14/24 Unknown History mcg-113 mg-45 mg-17.4 mg tablet (Eye Multivitamin) furosemide 20 mg tablet 20 mg PO QODAY Fluid retenti on 06/08/24 Unknown History levothyroxine 125 mcg tablet 125 mcg PO MOTUWETHFR Thy roid 06/08/24 07/19/24 History levothyroxine 200 mcg capsule 250 mcg PO SUSA Thyroid 06/08/24 Unknown History zinc gluconate 50 mg tablet 50 mg PO DAILY supplement 06/08/24 Unknown History apixaban 5 mg tablet (Eliquis) 5 mg PO BID Blood thinn er #60 tabs 06/14/24 Unknown Rx Held on 07/22/24. Instructions: Hold Eliquis until pacer check in office by cardiology lisinopril 2.5 mg tablet 2.5 mg PO DAILY BP 06/14/24 07/19/24 History Allergy/AdvReac Type Severity Reaction Status Date / Time oxybutynin (From Ditropan) Allergy Intermediate Nausea/Vom/ Verified 07/27/24 14:40 Diarrhea prednisone AdvReac Nausea Verified 07/27/24 14:40 Surgical History (Updated 07/27/24 @ 14:42 by Aurelia Moyer) History of surgical removal of pilonidal cyst History of permanent cardiac pacemaker placement History of esophagogastroduodenoscopy (EGD) History of laparoscopic cholecystectomy Hx of colonoscopy Hx of repair of left rotator cuff Hx of repair of right rotator cuff Hx of microdiscectomy History of lumbar spinal fusion Social History household members: spouse Smoking Status: Never smoker alcohol intake: never substance use type: does not use ROS Constitutional Constitutional: Denies fatigue, fever(s), poor appetite, weight gain or weight loss Gastrointestinal Gastrointestinal: Denies belching, bloating, change in bowel habits, change in stool character, chewing difficulty, coffee ground emesis, constipation, cramping, diarrhea, dyspepsia, dysphagia, early satiety, excessive flatus, fecal incontinence, heartburn, hematemesis, hematochezia, hemorrhoids, loose stools, melena, nausea, odynophagia, rectal bleeding, tenesmus, vomiting or weight changes Physical Exam Const alert, oriented x3, no apparent distress and healthy appearing General Appearance: cooperative GI normal to inspection, nondistended, normoactive bowel sounds, soft to palpation, non-tender and non-distended Percussion: normal to percussion Rectal Exam: deferred Lab / Micro Data 07/23/24 05:29 07/23/24 05:29 Labs: Laboratory Results - last 24 hr 07/26/24 05:15: Triglycerides 118, Cholesterol 115, LDL Cholesterol 48, VLDL Cholesterol 24, HDL Cholesterol 43, TSH 7.780 H Assessment & Plan Assessment/Plan (1) Difficulty swallowing: PLAN: Assessment and Plan Assessment and Plan (1) Disorder of esophagus: Plan: This is an 83 yo male withe hx of esophageal stenosis dilated in 2021. For a few months now he has had increasing issues with dysphagia. He has sensation of food in his esophagus and choking episodes every couple of weeks. He is not on PPI therapy. He will undergo EGD with dilation. I recommended PPI therapy. -EGD with dilation -Recommended PPI -N.p.o. past midnight Charges/Coding Visit Charges Inpatient E&M: 18957 SNF Init L2
[2024-07-26] MEDS: Pravastatin 20 MG Tablet PO (20:02)
[2024-07-26] MEDS: traZODone 50 MG Tablet PO (20:02)
[2024-07-27] MEDS: Levothyroxine 125 MCG Tablet PO (05:41)
[2024-07-27 07:40] VITALS: BP 121/76; PULSE 60; RESP 16; TEMP 36.2; O2SAT 94
[2024-07-27] MEDS: Lisinopril 2.5 MG Tablet PO (07:42)
[2024-07-27 10:58] VITALS: BMI 39.8
--- NOTE | 2024-07-27 14:30 | NURSING ---
Addendum entered by Suzette Venegas 07/27/24 16:57: Pt returns to floor with staff @1640. per Dr. Campoverde's notes, resume diet with no restrictions. Denies pain, at bedside. Original Note: Staff assists pt (bed) and to AC for EGD.
--- NOTE | 2024-07-27 14:45 | CASEMGMT ---
Social Work SW received call from pt's dtr, [place]. SW informed dtr that she is not listed as a contact, thus, this worker cannot provide any specific information. Dtr understanding and offered to provide this worker information. SW provided active listening as dtr shared 3 children and 's concerns with pt continuing to drive. Dtr explained the pt is very attached to being able to drive, and since is visually impaired and cannot drive, the pt is not inclined to stop driving. Dtr requested this worker provide pt/ with transportation resources. Dtr explained the family would prefer pt stop driving and do not feel it is safe to continue, but understanding the emotional component for the pt. SW expressed understanding and appreciative of information. SW will plan to provide pt/ with resources. SW inquired to dtr about approach pt responds to best - direct vs cushion. Dtr requested cushion with information and to allow pt time to process. SW appreciative of insight. Will continue to follow and talk with pt/family at POC meeting tomorrow. Sandra Arita [employer]
[2024-07-27] MEDS: Pravastatin 20 MG Tablet PO (20:25)
[2024-07-27] MEDS: Multivitamin (Healthy Eyes) Capsule 1 CAP PO (20:25)
[2024-07-27] MEDS: traZODone 50 MG Tablet PO (20:25)
[2024-07-27] MEDS: Gabapentin 600 MG Tablet 1800 MG PO (20:25)
[2024-07-27] MEDS: Senna/Docusate Sodium 1 Tablet PO (20:25)
[2024-07-28] MEDS: Levothyroxine 125 MCG Tablet PO (05:41)
[2024-07-28 07:34] VITALS: PULSE 62
[2024-07-28] MEDS: Gabapentin 600 MG Tablet 1800 MG PO ×2 (10:18→20:59)
[2024-07-28] MEDS: DULoxetine Hcl 30 MG Capsule PO (10:20)
[2024-07-28] MEDS: Potassium Chloride Oral Tablet 20 MEQ PO (10:20)
[2024-07-28] MEDS: Furosemide 20 MG Tablet PO (10:20)
[2024-07-28] MEDS: Multivitamins,Ther W-Minerals Tablet 1 TABLET PO (10:20)
[2024-07-28] MEDS: Cyanocobalamin 500 MCG Tablet 1000 MCG PO (10:20)
[2024-07-28] MEDS: Senna/Docusate Sodium 1 Tablet PO (10:20)
[2024-07-28] MEDS: Lisinopril 2.5 MG Tablet PO (10:20)
[2024-07-28] MEDS: Multivitamin (Healthy Eyes) Capsule 1 CAP PO ×2 (10:20→21:00)
[2024-07-28] MEDS: Zinc Sulfate 50 mg zinc (220 mg) ORAL capsule PO (10:20)
[2024-07-28] MEDS: Tamsulosin HCl 0.4 MG Capsule PO (10:21)
[2024-07-28] MEDS: Finasteride 5 MG Tablet PO (10:21)
[2024-07-28 10:24] VITALS: BP 113/52; PULSE 61
--- NOTE | 2024-07-28 13:23 | CASEMGMT ---
Social Work IDT met with patient, and dtr Sarah Beth, for care plan meeting. Discussed patient's progress in PT/OT/SN. Educated to [facility] insurance with NRD 08/02 and continued stay is not guaranteed with each review. Provided family with written communication on insurance process and copay coverage during stay. Pt has NWB for LUE which limits pt's ability to perform tasks independently. Currently pt is a mod x2 assist. Broached topic of needing an alternative plan if insurance does not allow time for pt to return to OF and to lift restrictions. can only minimally assist at home. Stressed IDT expects pt being able to return home with continued therapy, though insurance LOS is unknown. SW educated average LOS for insurance coverage is 14-19 days, and given the pt's restrictions may not be lifted for another 4-6 weeks, recommended an alternative DC plan. SW explained options for hiring nonskilled HHC or transferring to SNF. acknowledged if pt requires x2 assist, she is only one person, and that she cannot do any heavy lifting. did agree to schedule therapy training for 07/30. SW confirmed, explaining typically the Team's recommendations are DC to SNF. SW offered to provide resources for either option, but both would be an OOP cost. SW suggested processing the information, seeing how does at therapy training on 07/30, and notify this worker with outcome prior to insurance update 08/02. SW also broached the topic of transportation. Provided /dtr with community transportation resources. Educated and provided information for [facility] program for pt to complete if he chooses to drive again. SW to make referral and the order lasts for 6 mos. If the order lapsed before pt taking the course, the PCP can make a new referral. All parties expressed understanding. Team answered pt/family's questions. SW will continue to follow for DC planning assistance. BIMS (06/06) and PHQ-2 () completed for MDS assessment. ST order entered for score, in addition, pt's dtr from phone call yesterday noted pt's memory loss/word finding over the last year. Sandra Arita UI DEVELOPER DESIGNER GANG HEAD SAW OPERATOR
[2024-07-28 15:53] VITALS: BP 130/60; PULSE 65; RESP 18; TEMP 36.4; O2SAT 91
[2024-07-28] MEDS: Pravastatin 20 MG Tablet PO (21:00)
[2024-07-28] MEDS: traZODone 50 MG Tablet PO (21:00)
[2024-07-29] MEDS: Levothyroxine 125 MCG Tablet PO (06:08)
[2024-07-29] MEDS: Multivitamins,Ther W-Minerals Tablet 1 TABLET PO (08:47)
[2024-07-29] MEDS: Tamsulosin HCl 0.4 MG Capsule PO (08:48)
[2024-07-29] MEDS: Potassium Chloride Oral Tablet 20 MEQ PO (08:48)
[2024-07-29] MEDS: Finasteride 5 MG Tablet PO (08:48)
[2024-07-29] MEDS: DULoxetine Hcl 30 MG Capsule PO (08:48)
[2024-07-29] MEDS: Multivitamin (Healthy Eyes) Capsule 1 CAP PO ×2 (08:48→21:50)
[2024-07-29] MEDS: Zinc Sulfate 50 mg zinc (220 mg) ORAL capsule PO (08:49)
[2024-07-29] MEDS: Senna/Docusate Sodium 1 Tablet PO ×2 (08:49→21:50)
[2024-07-29] MEDS: Cyanocobalamin 500 MCG Tablet 1000 MCG PO (08:49)
[2024-07-29 09:10] VITALS: BP 96/62; PULSE 61; RESP 16; TEMP 36.2; O2SAT 100
[2024-07-29] MEDS: Gabapentin 600 MG Tablet 1800 MG PO ×2 (12:04→21:50)
[2024-07-29] MEDS: Pravastatin 20 MG Tablet PO (21:50)
[2024-07-29] MEDS: traZODone 50 MG Tablet PO (21:50)
[2024-07-29 22:00] VITALS: PULSE 60; RESP 16; O2SAT 98
[2024-07-30] MEDS: Levothyroxine 125 MCG Tablet PO (05:17)
[2024-07-30 06:04] LABS: Absolute Lymphocyte Count 1.11 X10^3/uL (0.83-4.51); Absolute Neutrophil Count 5.8 X10^3/uL (2.0-7.7); Basophil# 0.09 X10^3/uL; Basophil% 1.1 % (0-1); Eosinophil# 0.55 X10^3/uL; Eosinophils% 6.6 % (0-5); Hematocrit 41.2 % (40-54); Lymphocyte # 1.11 X10^3/ul (0.83-4.51); Lymphocyte % 13.4 % (19-41); Mean Corp Hgb Conc 31.6 g/dL (32-36); Mean Corpuscular Hgb 27.7 pg (27.0-32.0); Mean Corpuscular Volume 87.7 fL (80-94); Mean Platelet Vol. 10.7 fl (6.2-12.0); Monocyte# 0.68 X10^3/uL; Monocyte% 8.2 % (0-10); NRBC Flagged by Analyzer 0 % (0-5); Neutrophil # 5.83 X10^3/uL (2.7-7.7); Neutrophil % 70.3 % (47-70); Platelet Count 167 K/mm3 (150-450); RBC Distribution Width CV 17.9 % (11.6-14.6); RBC Distribution Width SD 57.3 fl (35.1-43.9); White Blood Count 8.3 K/mm3 (4.4-11.0)
[2024-07-30 06:44] LABS: Anion Gap 6 (5-15); BUN 20 mg/dL (7-18); BUN/Creat Ratio 21.3 RATIO (10-20); Calcium,Total 8.5 mg/dL (8.5-10.1); Chloride 106 mmol/L (98-107); Creatinine, Serum 0.94 mg/dL (0.70-1.30); EST Glomerular Filtration Rate 81 mL/min (>60); Est Glom Filt Rate - Afr Amer 99 mL/min (>60); Estimated Creatinine Clearance 80.29 ml/min; Glucose 119 mg/dL (74-106); Sodium Level 139 mmol/L (136-145)
[2024-07-30 08:10] VITALS: BP 112/95; PULSE 74; RESP 16; TEMP 36.2; O2SAT 95
[2024-07-30 08:11] VITALS: BP 127/69; PULSE 60
[2024-07-30] MEDS: Multivitamins,Ther W-Minerals Tablet 1 TABLET PO (08:13)
[2024-07-30] MEDS: Multivitamin (Healthy Eyes) Capsule 1 CAP PO ×2 (08:13→20:50)
[2024-07-30] MEDS: Lisinopril 2.5 MG Tablet PO (08:14)
[2024-07-30] MEDS: Furosemide 20 MG Tablet PO (08:14)
[2024-07-30] MEDS: DULoxetine Hcl 30 MG Capsule PO (08:14)
[2024-07-30] MEDS: Potassium Chloride Oral Tablet 20 MEQ PO (08:14)
[2024-07-30] MEDS: Tamsulosin HCl 0.4 MG Capsule PO (08:14)
[2024-07-30] MEDS: Cyanocobalamin 500 MCG Tablet 1000 MCG PO (08:14)
[2024-07-30] MEDS: Finasteride 5 MG Tablet PO (08:14)
[2024-07-30] MEDS: Senna/Docusate Sodium 1 Tablet PO (08:14)
[2024-07-30] MEDS: Zinc Sulfate 50 mg zinc (220 mg) ORAL capsule PO (08:15)
[2024-07-30] MEDS: Gabapentin 600 MG Tablet 1800 MG PO ×2 (08:16→20:49)
--- NOTE | 2024-07-30 08:48 | NURSING ---
Route Clerk Note; MDS for 07/29/2024 Complete
[2024-07-30] MEDS: Tuberculin,Purif.prot.deriv. 50 TU/ML Vial 0.1 ML ID (09:45)
[2024-07-30 11:05] VITALS: PULSE 60; RESP 18; O2SAT 93
--- NOTE | 2024-07-30 16:05 | CASEMGMT ---
Social Work SW phoned to follow up on therapy training. agreed with treating ROBBY that pt is not quite there yet being able to manage his care independently and safely to return home. Unsure how long pt will have the left arm limitations and how long the insurance will approve pt to remain on TCU. SW inquired the DC plan to be a transfer to a SNF, as the alternative plan. unclear with the question and asked many clarifying questions. SW reexplained in detail, the information shared at the POC meeting, with insurance coverage on TCU, and the need for an alternative plan in place prior to a DC date. Explained further the OOP cost associated with an intermediate level of care at a SNF. Explained this worker will provide list of SNF choices for pt/family to choose preferences, and this worker will place referrals to coordinate discharge. having difficulty understanding the process and information being shared. SW assisted in answering clarifying questions. stated she will confer with her three children on the plan as the insurance update is 08/02, and insurance provides a 3-day notice. SW inquired for children to be added to contact list. denied as she would like all information streamlined through her and it would promote ['s independence. SW accepted. Requested in what method would like to obtain SNF list. prefers email and provided address. SW sent list of INN SNFs including quality and resource data via CarePort Guide link, along with education to research facilities further at Medicare.gov/nursinghomecompare. to follow up with this worker next week. SW to update on outcome of insurance update. SW will continue to follow for DC planning assistnace. Time spent: 25 minutes Sandra FORD SOUND CONTROLLER
[2024-07-30] MEDS: Pravastatin 20 MG Tablet PO (20:50)
[2024-07-30] MEDS: traZODone 50 MG Tablet PO (20:50)
[2024-07-31] MEDS: Levothyroxine 100 MCG Tablet 250 MCG PO (05:16)
[2024-07-31] MEDS: Tamsulosin HCl 0.4 MG Capsule PO (08:37)
[2024-07-31] MEDS: Lisinopril 2.5 MG Tablet PO (08:37)
[2024-07-31] MEDS: Multivitamins,Ther W-Minerals Tablet 1 TABLET PO (08:37)
[2024-07-31] MEDS: Cyanocobalamin 500 MCG Tablet 1000 MCG PO (08:37)
[2024-07-31] MEDS: Multivitamin (Healthy Eyes) Capsule 1 CAP PO ×2 (08:37→21:48)
[2024-07-31] MEDS: Zinc Sulfate 50 mg zinc (220 mg) ORAL capsule PO (08:37)
[2024-07-31] MEDS: Finasteride 5 MG Tablet PO (08:37)
[2024-07-31] MEDS: DULoxetine Hcl 30 MG Capsule PO (08:37)
[2024-07-31] MEDS: Potassium Chloride Oral Tablet 20 MEQ PO (08:37)
[2024-07-31 08:40] VITALS: BP 115/58; PULSE 60
[2024-07-31] MEDS: Gabapentin 600 MG Tablet 1800 MG PO ×2 (09:44→21:47)
[2024-07-31 13:23] VITALS: BP 112/55; PULSE 60; RESP 14; TEMP 36.2; O2SAT 96
[2024-07-31] MEDS: traZODone 50 MG Tablet PO (21:47)
[2024-07-31] MEDS: Pravastatin 20 MG Tablet PO (21:48)
[2024-08-01] MEDS: Levothyroxine 100 MCG Tablet 250 MCG PO (06:19)
[2024-08-01 08:07] VITALS: BP 118/58; PULSE 59; RESP 16; TEMP 35.7
[2024-08-01] MEDS: Multivitamins,Ther W-Minerals Tablet 1 TABLET PO (08:09)
[2024-08-01] MEDS: Potassium Chloride Oral Tablet 20 MEQ PO (08:10)
[2024-08-01] MEDS: Multivitamin (Healthy Eyes) Capsule 1 CAP PO ×2 (08:10→22:09)
[2024-08-01] MEDS: DULoxetine Hcl 30 MG Capsule PO (08:10)
[2024-08-01] MEDS: Furosemide 20 MG Tablet PO (08:10)
[2024-08-01] MEDS: Tamsulosin HCl 0.4 MG Capsule PO (08:10)
[2024-08-01] MEDS: Finasteride 5 MG Tablet PO (08:11)
[2024-08-01] MEDS: Zinc Sulfate 50 mg zinc (220 mg) ORAL capsule PO (08:11)
[2024-08-01] MEDS: Lisinopril 2.5 MG Tablet PO (08:11)
[2024-08-01] MEDS: Cyanocobalamin 500 MCG Tablet 1000 MCG PO (08:11)
[2024-08-01] MEDS: Gabapentin 600 MG Tablet 1800 MG PO ×2 (09:35→22:09)
[2024-08-01] MEDS: traZODone 50 MG Tablet PO (22:09)
[2024-08-01] MEDS: Pravastatin 20 MG Tablet PO (22:09)
[2024-08-02] MEDS: Levothyroxine 125 MCG Tablet PO (05:37)
[2024-08-02] MEDS: Gabapentin 600 MG Tablet 1800 MG PO ×2 (08:30→21:25)
[2024-08-02] MEDS: Multivitamins,Ther W-Minerals Tablet 1 TABLET PO (08:30)
[2024-08-02] MEDS: Multivitamin (Healthy Eyes) Capsule 1 CAP PO ×2 (08:31→21:24)
[2024-08-02] MEDS: Zinc Sulfate 50 mg zinc (220 mg) ORAL capsule PO (08:31)
[2024-08-02] MEDS: Finasteride 5 MG Tablet PO (08:31)
[2024-08-02] MEDS: DULoxetine Hcl 30 MG Capsule PO (08:31)
[2024-08-02] MEDS: Cyanocobalamin 500 MCG Tablet 1000 MCG PO (08:31)
[2024-08-02] MEDS: Tamsulosin HCl 0.4 MG Capsule PO (08:31)
[2024-08-02] MEDS: Lisinopril 2.5 MG Tablet PO (08:31)
[2024-08-02] MEDS: Potassium Chloride Oral Tablet 20 MEQ PO (08:31)
[2024-08-02 08:35] VITALS: BP 107/52; PULSE 60
--- NOTE | 2024-08-02 12:46 | CASEMGMT ---
Social Work SW received email from pt's with extensive list of questions and explanation. SW scheduled meeting with to answer questions. In the email, the /pt/children requested referrals to SNFs: [facility], [facility], [facility]. [facility] Will await outcomes. Sandra Arita MSW [place] [place]
[2024-08-02 15:36] VITALS: BP 125/48; PULSE 60; RESP 16; TEMP 36.3; O2SAT 93
--- NOTE | 2024-08-02 16:27 | CASEMGMT ---
Social Work SW met with patient and at bedside. SW answered each question from 's email, regarding LTC Policy coverage and qualifications, care being provided at the accepting SNF. SW reiterated pt would pay OOP, aside from LTC policy reimbursement, and therapy will be billed to part B therapies. SW informed that [facility] can accept - they have only semi-private rooms; [facility] can accept, but will need to verify beds once there is a DC date; [facility] denied d/t waitlist for beds. SW discussed having family tour facilities to assist in making final decision. agreed. SW informed insurance approved with NRD 08/06 and continued stay is not guarnateed; an appeal option will be available at the time of DC; 3-day notice will be given with a DC date. Pt and appreciative of time and information. SW will continue to follow. Time spent: 40 minutes Sandra JAINW
[2024-08-02] MEDS: Pravastatin 20 MG Tablet PO (21:24)
[2024-08-02] MEDS: traZODone 50 MG Tablet PO (21:25)
[2024-08-02] MEDS: Nystatin Powder 15gm Bottle 1 APPLIC TOPICAL (21:30)
[2024-08-02 22:46] VITALS: PULSE 60; RESP 16; O2SAT 93
--- NOTE | 2024-08-03 03:42 | NURSING ---
Addendum entered by Korina Colunga 08/03/24 18:11: dr duron notified, new order JONEL turk. Original Note: Patient with moist, intermittent, non-productive cough. Voiced concerns that it may be due to recent botox administered in esophagus to dilate it. This procedure was done on 07/27. Upon observation, back of throat, tonsils pink, a little irritated. Drainage noted. Denies having sore throat. Encouraged patient to continue to cough as able. Lung sounds remain clear. Will contact Dr. Campoverde regarding patient's concerns. Will continue to monitor.
[2024-08-03] MEDS: Levothyroxine 125 MCG Tablet PO (05:47)
[2024-08-03 06:30] VITALS: PULSE 63; RESP 16; O2SAT 95
[2024-08-03 09:35] VITALS: BP 113/55; PULSE 66; RESP 18; TEMP 36.4; O2SAT 94
[2024-08-03] MEDS: Multivitamins,Ther W-Minerals Tablet 1 TABLET PO (09:37)
[2024-08-03] MEDS: DULoxetine Hcl 30 MG Capsule PO (09:37)
[2024-08-03] MEDS: Tamsulosin HCl 0.4 MG Capsule PO (09:37)
[2024-08-03] MEDS: Cyanocobalamin 500 MCG Tablet 1000 MCG PO (09:38)
[2024-08-03] MEDS: Lisinopril 2.5 MG Tablet PO (09:38)
[2024-08-03] MEDS: Finasteride 5 MG Tablet PO (09:38)
[2024-08-03] MEDS: Multivitamin (Healthy Eyes) Capsule 1 CAP PO ×2 (09:38→21:30)
[2024-08-03] MEDS: Furosemide 20 MG Tablet PO ×2 (09:38→18:02)
[2024-08-03] MEDS: Potassium Chloride Oral Tablet 20 MEQ PO (09:38)
[2024-08-03] MEDS: Zinc Sulfate 50 mg zinc (220 mg) ORAL capsule PO (09:38)
[2024-08-03] MEDS: Gabapentin 600 MG Tablet 1800 MG PO ×2 (09:41→21:29)
[2024-08-03] MEDS: Nystatin Powder 15gm Bottle 1 APPLIC TOPICAL ×2 (09:42→21:33)
--- NOTE | 2024-08-03 10:50 | MDS.RN ---
Information for the MDS was obtained from review of the clinical record, interview of resident, staff, and direct observation of resident?s care.
[2024-08-03 11:14] VITALS: BMI 40.4
--- NOTE | 2024-08-03 15:51 | NURSING ---
pt and updated on positive covid staff member.
--- NOTE | 2024-08-03 17:59 | NURSING ---
dr duron notified of pt weight gain, new order entered for lasix daily, pt was taking it every other day.
[2024-08-03] MEDS: traZODone 50 MG Tablet PO (21:30)
[2024-08-03] MEDS: Pravastatin 20 MG Tablet PO (21:30)
[2024-08-03] MEDS: guaiFENesin Dm 10 ML UDC PO (22:04)
[2024-08-04] MEDS: Levothyroxine 125 MCG Tablet PO (05:33)
[2024-08-04] MEDS: Finasteride 5 MG Tablet PO (09:21)
[2024-08-04] MEDS: Potassium Chloride Oral Tablet 20 MEQ PO (09:21)
[2024-08-04] MEDS: Multivitamins,Ther W-Minerals Tablet 1 TABLET PO (09:21)
[2024-08-04] MEDS: DULoxetine Hcl 30 MG Capsule PO (09:21)
[2024-08-04] MEDS: Tamsulosin HCl 0.4 MG Capsule PO (09:21)
[2024-08-04] MEDS: Furosemide 20 MG Tablet PO (09:21)
[2024-08-04] MEDS: Multivitamin (Healthy Eyes) Capsule 1 CAP PO ×2 (09:21→20:23)
[2024-08-04] MEDS: Cyanocobalamin 500 MCG Tablet 1000 MCG PO (09:21)
[2024-08-04] MEDS: Lisinopril 2.5 MG Tablet PO (09:22)
[2024-08-04] MEDS: Zinc Sulfate 50 mg zinc (220 mg) ORAL capsule PO (09:22)
[2024-08-04 09:24] VITALS: BP 121/53; PULSE 59
[2024-08-04] MEDS: Gabapentin 600 MG Tablet 1800 MG PO ×2 (09:41→20:23)
[2024-08-04] MEDS: Nystatin Powder 15gm Bottle 1 APPLIC TOPICAL ×2 (09:42→20:24)
[2024-08-04 16:00] VITALS: BP 122/58; PULSE 64; RESP 18; TEMP 35.7; O2SAT 93
[2024-08-04 20:00] VITALS: PULSE 60; O2SAT 94
[2024-08-04] MEDS: traZODone 50 MG Tablet PO (20:23)
[2024-08-04] MEDS: Pravastatin 20 MG Tablet PO (20:25)
[2024-08-04] MEDS: guaiFENesin Dm 10 ML UDC PO (20:25)
[2024-08-05] MEDS: Levothyroxine 125 MCG Tablet PO (05:09)
[2024-08-05 05:49] VITALS: PULSE 62; O2SAT 93
[2024-08-05] MEDS: Cyanocobalamin 500 MCG Tablet 1000 MCG PO (09:44)
[2024-08-05] MEDS: Zinc Sulfate 50 mg zinc (220 mg) ORAL capsule PO (09:44)
[2024-08-05] MEDS: Multivitamins,Ther W-Minerals Tablet 1 TABLET PO (09:44)
[2024-08-05] MEDS: DULoxetine Hcl 30 MG Capsule PO (09:44)
[2024-08-05] MEDS: Finasteride 5 MG Tablet PO (09:44)
[2024-08-05] MEDS: Potassium Chloride Oral Tablet 20 MEQ PO (09:44)
[2024-08-05] MEDS: Multivitamin (Healthy Eyes) Capsule 1 CAP PO ×2 (09:44→21:37)
[2024-08-05] MEDS: Lisinopril 2.5 MG Tablet PO (09:44)
[2024-08-05] MEDS: Tamsulosin HCl 0.4 MG Capsule PO (09:44)
[2024-08-05] MEDS: Furosemide 20 MG Tablet PO (09:44)
[2024-08-05] MEDS: Nystatin Powder 15gm Bottle 1 APPLIC TOPICAL ×2 (09:45→21:39)
[2024-08-05 09:47] VITALS: BP 119/54; PULSE 60
[2024-08-05] MEDS: Gabapentin 600 MG Tablet 1800 MG PO ×2 (10:27→21:37)
[2024-08-05] MEDS: guaiFENesin Dm 10 ML UDC PO (14:58)
[2024-08-05 15:21] VITALS: BP 114/61; PULSE 60; RESP 14; TEMP 36.2; O2SAT 93
[2024-08-05] MEDS: Pravastatin 20 MG Tablet PO (21:37)
[2024-08-05] MEDS: traZODone 50 MG Tablet PO (21:37)
[2024-08-06] MEDS: Levothyroxine 125 MCG Tablet PO (05:33)
[2024-08-06 06:54] VITALS: BMI 40.1
[2024-08-06 07:02] LABS: Absolute Lymphocyte Count 1.13 X10^3/uL (0.83-4.51); Absolute Neutrophil Count 4.7 X10^3/uL (2.0-7.7); Basophil# 0.09 X10^3/uL; Basophil% 1.2 % (0-1); Eosinophil# 0.67 X10^3/uL; Eosinophils% 9.3 % (0-5); Hematocrit 40.8 % (40-54); Hemoglobin 12.9 g/dL (13.0-16.5); Lymphocyte # 1.13 X10^3/ul (0.83-4.51); Lymphocyte % 15.7 % (19-41); Mean Corp Hgb Conc 31.6 g/dL (32-36); Mean Corpuscular Hgb 27.6 pg (27.0-32.0); Mean Corpuscular Volume 87.4 fL (80-94); Monocyte# 0.59 X10^3/uL; Monocyte% 8.2 % (0-10); NRBC Flagged by Analyzer 0 % (0-5); Neutrophil # 4.71 X10^3/uL (2.7-7.7); Neutrophil % 65.2 % (47-70); Platelet Count 183 K/mm3 (150-450); RBC Distribution Width CV 17.5 % (11.6-14.6); RBC Distribution Width SD 56.1 fl (35.1-43.9); Red Blood Count 4.67 M/mm3 (4.6-6.2); White Blood Count 7.2 K/mm3 (4.4-11.0)
[2024-08-06 07:37] LABS: Anion Gap 3 (5-15); BUN 20 mg/dL (7-18); Calcium,Total 8.8 mg/dL (8.5-10.1); Chloride 106 mmol/L (98-107); Creatinine, Serum 0.95 mg/dL (0.70-1.30); EST Glomerular Filtration Rate 80 mL/min (>60); Est Glom Filt Rate - Afr Amer 97 mL/min (>60); Estimated Creatinine Clearance 79.76 ml/min; Glucose 111 mg/dL (74-106); Potassium 3.6 mmol/L (3.5-5.1); Sodium Level 141 mmol/L (136-145)
[2024-08-06 07:49] VITALS: BP 124/61; PULSE 60; RESP 16; TEMP 36.2; O2SAT 94
[2024-08-06] MEDS: Tamsulosin HCl 0.4 MG Capsule PO (07:52)
[2024-08-06] MEDS: Multivitamin (Healthy Eyes) Capsule 1 CAP PO ×2 (07:52→20:51)
[2024-08-06] MEDS: Finasteride 5 MG Tablet PO (07:52)
[2024-08-06] MEDS: Furosemide 20 MG Tablet PO (07:52)
[2024-08-06] MEDS: Multivitamins,Ther W-Minerals Tablet 1 TABLET PO (07:52)
[2024-08-06] MEDS: Potassium Chloride Oral Tablet 20 MEQ PO (07:52)
[2024-08-06] MEDS: DULoxetine Hcl 30 MG Capsule PO (07:52)
[2024-08-06] MEDS: Cyanocobalamin 500 MCG Tablet 1000 MCG PO (07:53)
[2024-08-06] MEDS: Nystatin Powder 15gm Bottle 1 APPLIC TOPICAL ×2 (07:53→20:57)
[2024-08-06] MEDS: Zinc Sulfate 50 mg zinc (220 mg) ORAL capsule PO (07:53)
[2024-08-06] MEDS: Lisinopril 2.5 MG Tablet PO (07:53)
[2024-08-06] MEDS: Gabapentin 600 MG Tablet 1800 MG PO ×2 (07:56→20:55)
[2024-08-06] MEDS: Pravastatin 20 MG Tablet PO (20:51)
[2024-08-06] MEDS: traZODone 50 MG Tablet PO (20:52)
[2024-08-06 22:00] VITALS: PULSE 61; RESP 16; O2SAT 95
[2024-08-07] MEDS: Levothyroxine 100 MCG Tablet 250 MCG PO (06:42)
[2024-08-07] MEDS: Multivitamins,Ther W-Minerals Tablet 1 TABLET PO (09:33)
[2024-08-07] MEDS: Finasteride 5 MG Tablet PO (09:33)
[2024-08-07] MEDS: Furosemide 20 MG Tablet PO (09:33)
[2024-08-07] MEDS: Multivitamin (Healthy Eyes) Capsule 1 CAP PO ×2 (09:33→21:18)
[2024-08-07] MEDS: Zinc Sulfate 50 mg zinc (220 mg) ORAL capsule PO (09:33)
[2024-08-07] MEDS: Tamsulosin HCl 0.4 MG Capsule PO (09:33)
[2024-08-07] MEDS: Lisinopril 2.5 MG Tablet PO (09:33)
[2024-08-07] MEDS: DULoxetine Hcl 30 MG Capsule PO (09:33)
[2024-08-07] MEDS: Potassium Chloride Oral Tablet 20 MEQ PO (09:33)
[2024-08-07] MEDS: Cyanocobalamin 500 MCG Tablet 1000 MCG PO (09:33)
[2024-08-07] MEDS: Gabapentin 600 MG Tablet 1800 MG PO ×2 (09:33→21:18)
[2024-08-07] MEDS: Nystatin Powder 15gm Bottle 1 APPLIC TOPICAL ×2 (09:34→21:22)
[2024-08-07 11:25] VITALS: BP 108/56; PULSE 60; RESP 18; TEMP 36.3; O2SAT 99
[2024-08-07] MEDS: traZODone 50 MG Tablet PO (21:19)
[2024-08-07] MEDS: Pravastatin 20 MG Tablet PO (21:19)
[2024-08-08] MEDS: Levothyroxine 100 MCG Tablet 250 MCG PO (05:35)
[2024-08-08] MEDS: Multivitamins,Ther W-Minerals Tablet 1 TABLET PO (08:57)
[2024-08-08] MEDS: Senna/Docusate Sodium 1 Tablet PO (08:57)
[2024-08-08] MEDS: Lisinopril 2.5 MG Tablet PO (08:57)
[2024-08-08] MEDS: Finasteride 5 MG Tablet PO (08:57)
[2024-08-08] MEDS: Potassium Chloride Oral Tablet 20 MEQ PO (08:57)
[2024-08-08] MEDS: DULoxetine Hcl 30 MG Capsule PO (08:57)
[2024-08-08] MEDS: Multivitamin (Healthy Eyes) Capsule 1 CAP PO ×2 (08:57→20:59)
[2024-08-08] MEDS: Zinc Sulfate 50 mg zinc (220 mg) ORAL capsule PO (08:57)
[2024-08-08] MEDS: Tamsulosin HCl 0.4 MG Capsule PO (08:57)
[2024-08-08] MEDS: Furosemide 20 MG Tablet PO (08:57)
[2024-08-08] MEDS: Cyanocobalamin 500 MCG Tablet 1000 MCG PO (08:57)
[2024-08-08] MEDS: Nystatin Powder 15gm Bottle 1 APPLIC TOPICAL ×2 (08:58→21:02)
[2024-08-08] MEDS: Gabapentin 600 MG Tablet 1800 MG PO ×2 (09:41→20:59)
[2024-08-08 11:38] VITALS: BP 123/62; PULSE 59; RESP 16; TEMP 36.4; O2SAT 97
[2024-08-08] MEDS: traZODone 50 MG Tablet PO (20:59)
[2024-08-08] MEDS: Pravastatin 20 MG Tablet PO (20:59)
[2024-08-09] MEDS: Levothyroxine 125 MCG Tablet PO (05:26)
[2024-08-09] MEDS: Nystatin Powder 15gm Bottle 1 APPLIC TOPICAL ×2 (09:14→20:36)
[2024-08-09] MEDS: Lisinopril 2.5 MG Tablet PO (09:14)
[2024-08-09] MEDS: Multivitamin (Healthy Eyes) Capsule 1 CAP PO ×2 (09:14→20:35)
[2024-08-09] MEDS: DULoxetine Hcl 30 MG Capsule PO (09:14)
[2024-08-09] MEDS: Potassium Chloride Oral Tablet 20 MEQ PO (09:14)
[2024-08-09] MEDS: Furosemide 20 MG Tablet PO (09:14)
[2024-08-09] MEDS: Tamsulosin HCl 0.4 MG Capsule PO (09:14)
[2024-08-09] MEDS: Multivitamins,Ther W-Minerals Tablet 1 TABLET PO (09:14)
[2024-08-09] MEDS: Finasteride 5 MG Tablet PO (09:15)
[2024-08-09] MEDS: Senna/Docusate Sodium 1 Tablet PO (09:15)
[2024-08-09] MEDS: Zinc Sulfate 50 mg zinc (220 mg) ORAL capsule PO (09:15)
[2024-08-09] MEDS: Cyanocobalamin 500 MCG Tablet 1000 MCG PO (09:15)
[2024-08-09] MEDS: Gabapentin 600 MG Tablet 1800 MG PO ×2 (09:15→20:35)
[2024-08-09 10:25] VITALS: BP 112/59; PULSE 61; RESP 18; TEMP 36.5; O2SAT 98
[2024-08-09] MEDS: Pravastatin 20 MG Tablet PO (20:35)
[2024-08-09] MEDS: guaiFENesin Dm 10 ML UDC PO (20:35)
[2024-08-09] MEDS: traZODone 50 MG Tablet PO (20:35)
[2024-08-10] MEDS: Levothyroxine 125 MCG Tablet PO (05:47)
[2024-08-10 09:13] VITALS: BP 103/62; PULSE 60; RESP 18; TEMP 36.1; O2SAT 98
[2024-08-10] MEDS: Gabapentin 600 MG Tablet 1800 MG PO ×2 (09:17→21:35)
[2024-08-10] MEDS: DULoxetine Hcl 30 MG Capsule PO (09:18)
[2024-08-10] MEDS: Potassium Chloride Oral Tablet 20 MEQ PO (09:18)
[2024-08-10] MEDS: Furosemide 20 MG Tablet PO (09:18)
[2024-08-10] MEDS: Tamsulosin HCl 0.4 MG Capsule PO (09:18)
[2024-08-10] MEDS: Finasteride 5 MG Tablet PO (09:18)
[2024-08-10] MEDS: Multivitamins,Ther W-Minerals Tablet 1 TABLET PO (09:18)
[2024-08-10] MEDS: Multivitamin (Healthy Eyes) Capsule 1 CAP PO ×2 (09:18→21:36)
[2024-08-10] MEDS: Lisinopril 2.5 MG Tablet PO (09:19)
[2024-08-10] MEDS: Zinc Sulfate 50 mg zinc (220 mg) ORAL capsule PO (09:19)
[2024-08-10] MEDS: Cyanocobalamin 500 MCG Tablet 1000 MCG PO (09:19)
[2024-08-10] MEDS: Nystatin Powder 15gm Bottle 1 APPLIC TOPICAL ×2 (09:19→21:36)
--- NOTE | 2024-08-10 10:50 | NURSING ---
Addendum entered by Korina Colunga 08/10/24 17:56: dr gifford restarted eliquis per previous order Original Note: pt asking about blood thinner, eliquis, wondering when to restart. pt had pacer check done on 08/04 & according to H&P pt to restart after that. message left with Dr Gifford.
[2024-08-10 11:26] VITALS: PULSE 60; RESP 16; O2SAT 95
[2024-08-10 11:36] VITALS: BMI 40.0
[2024-08-10] MEDS: Pravastatin 20 MG Tablet PO (21:36)
[2024-08-10] MEDS: traZODone 50 MG Tablet PO (21:36)
[2024-08-10] MEDS: APIXABAN 5 MG TABLET PO (21:36)
[2024-08-11] MEDS: Levothyroxine 125 MCG Tablet PO (05:37)
[2024-08-11] MEDS: Acetaminophen 500 MG Tablet 1000 MG PO (05:37)
[2024-08-11 08:39] VITALS: BP 110/64; PULSE 58; RESP 16; TEMP 36.3; O2SAT 94
[2024-08-11] MEDS: Multivitamin (Healthy Eyes) Capsule 1 CAP PO ×2 (08:44→22:18)
[2024-08-11] MEDS: Lisinopril 2.5 MG Tablet PO (08:44)
[2024-08-11] MEDS: APIXABAN 5 MG TABLET PO ×2 (08:44→22:18)
[2024-08-11] MEDS: Potassium Chloride Oral Tablet 20 MEQ PO (08:44)
[2024-08-11] MEDS: Tamsulosin HCl 0.4 MG Capsule PO (08:44)
[2024-08-11] MEDS: Cyanocobalamin 500 MCG Tablet 1000 MCG PO (08:44)
[2024-08-11] MEDS: Zinc Sulfate 50 mg zinc (220 mg) ORAL capsule PO (08:44)
[2024-08-11] MEDS: DULoxetine Hcl 30 MG Capsule PO (08:44)
[2024-08-11] MEDS: Furosemide 20 MG Tablet PO (08:45)
[2024-08-11] MEDS: Multivitamins,Ther W-Minerals Tablet 1 TABLET PO (08:45)
[2024-08-11] MEDS: Finasteride 5 MG Tablet PO (08:45)
[2024-08-11] MEDS: Gabapentin 600 MG Tablet 1800 MG PO ×2 (08:46→22:18)
[2024-08-11] MEDS: Nystatin Powder 15gm Bottle 1 APPLIC TOPICAL ×3 (08:49→22:20)
[2024-08-11 10:56] VITALS: RESP 17; O2SAT 95
[2024-08-11] MEDS: Pravastatin 20 MG Tablet PO (22:18)
[2024-08-11] MEDS: traZODone 50 MG Tablet PO (22:18)
[2024-08-12] MEDS: Levothyroxine 125 MCG Tablet PO (05:52)
[2024-08-12] MEDS: Cyanocobalamin 500 MCG Tablet 1000 MCG PO (08:52)
[2024-08-12] MEDS: Tamsulosin HCl 0.4 MG Capsule PO (08:52)
[2024-08-12] MEDS: Multivitamin (Healthy Eyes) Capsule 1 CAP PO ×2 (08:52→21:15)
[2024-08-12] MEDS: Zinc Sulfate 50 mg zinc (220 mg) ORAL capsule PO (08:52)
[2024-08-12] MEDS: Furosemide 20 MG Tablet PO (08:52)
[2024-08-12] MEDS: Lisinopril 2.5 MG Tablet PO (08:52)
[2024-08-12] MEDS: DULoxetine Hcl 30 MG Capsule PO (08:52)
[2024-08-12] MEDS: Potassium Chloride Oral Tablet 20 MEQ PO (08:52)
[2024-08-12] MEDS: Finasteride 5 MG Tablet PO (08:52)
[2024-08-12] MEDS: Multivitamins,Ther W-Minerals Tablet 1 TABLET PO (08:52)
[2024-08-12] MEDS: APIXABAN 5 MG TABLET PO ×2 (08:52→21:15)
[2024-08-12 08:55] VITALS: BP 128/41; PULSE 60
[2024-08-12] MEDS: Gabapentin 600 MG Tablet 1800 MG PO ×2 (11:41→21:15)
[2024-08-12 14:21] VITALS: BP 112/52; PULSE 60; RESP 18; TEMP 36.9; O2SAT 92
[2024-08-12 21:15] VITALS: BP 113/52; PULSE 61; RESP 17; TEMP 36.7; O2SAT 95
[2024-08-12] MEDS: Nystatin Powder 15gm Bottle 1 APPLIC TOPICAL (21:15)
[2024-08-12] MEDS: Pravastatin 20 MG Tablet PO (21:15)
[2024-08-12] MEDS: traZODone 50 MG Tablet PO (21:15)
[2024-08-13] MEDS: Levothyroxine 125 MCG Tablet PO (05:36)
[2024-08-13 05:52] LABS: Absolute Lymphocyte Count 1.47 X10^3/uL (0.83-4.51); Absolute Neutrophil Count 4.9 X10^3/uL (2.0-7.7); Basophil# 0.09 X10^3/uL; Basophil% 1.2 % (0-1); Eosinophil# 0.47 X10^3/uL; Eosinophils% 6.3 % (0-5); Hematocrit 41.3 % (40-54); Hemoglobin 12.9 g/dL (13.0-16.5); Lymphocyte # 1.47 X10^3/ul (0.83-4.51); Lymphocyte % 19.6 % (19-41); Mean Corp Hgb Conc 31.2 g/dL (32-36); Mean Corpuscular Hgb 27.5 pg (27.0-32.0); Mean Corpuscular Volume 88.1 fL (80-94); Mean Platelet Vol. 10.2 fl (6.2-12.0); Monocyte# 0.55 X10^3/uL; Monocyte% 7.3 % (0-10); NRBC Flagged by Analyzer 0 % (0-5); Neutrophil % 65.2 % (47-70); Platelet Count 181 K/mm3 (150-450); RBC Distribution Width CV 17.8 % (11.6-14.6); RBC Distribution Width SD 57.1 fl (35.1-43.9); Red Blood Count 4.69 M/mm3 (4.6-6.2); White Blood Count 7.5 K/mm3 (4.4-11.0)
[2024-08-13 08:03] LABS: Anion Gap 8 (5-15); BUN 24 mg/dL (7-18); Calcium,Total 9.2 mg/dL (8.5-10.1); Chloride 105 mmol/L (98-107); Creatinine, Serum 1.09 mg/dL (0.70-1.30); EST Glomerular Filtration Rate 68 mL/min (>60); Est Glom Filt Rate - Afr Amer 83 mL/min (>60); Estimated Creatinine Clearance 69.38 ml/min; Glucose 114 mg/dL (74-106); Potassium 4.2 mmol/L (3.5-5.1); Sodium Level 142 mmol/L (136-145)
[2024-08-13] MEDS: Tamsulosin HCl 0.4 MG Capsule PO (09:23)
[2024-08-13] MEDS: Cyanocobalamin 500 MCG Tablet 1000 MCG PO (09:24)
[2024-08-13] MEDS: APIXABAN 5 MG TABLET PO ×2 (09:24→21:22)
[2024-08-13] MEDS: Zinc Sulfate 50 mg zinc (220 mg) ORAL capsule PO (09:24)
[2024-08-13] MEDS: Multivitamins,Ther W-Minerals Tablet 1 TABLET PO (09:24)
[2024-08-13] MEDS: Furosemide 20 MG Tablet PO (09:24)
[2024-08-13] MEDS: Lisinopril 2.5 MG Tablet PO (09:24)
[2024-08-13] MEDS: Multivitamin (Healthy Eyes) Capsule 1 CAP PO ×2 (09:24→21:22)
[2024-08-13] MEDS: Nystatin Powder 15gm Bottle 1 APPLIC TOPICAL ×2 (09:24→21:25)
[2024-08-13] MEDS: Gabapentin 600 MG Tablet 1800 MG PO ×2 (09:24→21:20)
[2024-08-13] MEDS: Finasteride 5 MG Tablet PO (09:24)
[2024-08-13] MEDS: DULoxetine Hcl 30 MG Capsule PO (09:24)
[2024-08-13] MEDS: Potassium Chloride Oral Tablet 20 MEQ PO (09:24)
[2024-08-13 09:59] VITALS: BP 113/51; PULSE 62
[2024-08-13 16:00] VITALS: PULSE 60; RESP 16; TEMP 36.5; O2SAT 95
[2024-08-13] MEDS: traZODone 50 MG Tablet PO (21:22)
[2024-08-13] MEDS: Pravastatin 20 MG Tablet PO (21:23)
[2024-08-14] MEDS: Levothyroxine 100 MCG Tablet 250 MCG PO (05:54)
[2024-08-14 08:34] VITALS: BP 104/64; PULSE 60; RESP 16; TEMP 36.3; O2SAT 92
[2024-08-14] MEDS: DULoxetine Hcl 30 MG Capsule PO (08:37)
[2024-08-14] MEDS: APIXABAN 5 MG TABLET PO ×2 (08:37→21:33)
[2024-08-14] MEDS: Multivitamins,Ther W-Minerals Tablet 1 TABLET PO (08:37)
[2024-08-14] MEDS: Tamsulosin HCl 0.4 MG Capsule PO (08:37)
[2024-08-14] MEDS: Multivitamin (Healthy Eyes) Capsule 1 CAP PO ×2 (08:38→21:33)
[2024-08-14] MEDS: Lisinopril 2.5 MG Tablet PO (08:38)
[2024-08-14] MEDS: Furosemide 20 MG Tablet PO (08:38)
[2024-08-14] MEDS: Cyanocobalamin 500 MCG Tablet 1000 MCG PO (08:38)
[2024-08-14] MEDS: Finasteride 5 MG Tablet PO (08:38)
[2024-08-14] MEDS: Potassium Chloride Oral Tablet 20 MEQ PO (08:38)
[2024-08-14] MEDS: Zinc Sulfate 50 mg zinc (220 mg) ORAL capsule PO (08:38)
[2024-08-14] MEDS: Nystatin Powder 15gm Bottle 1 APPLIC TOPICAL (08:41)
[2024-08-14] MEDS: Gabapentin 600 MG Tablet 1800 MG PO ×2 (09:49→21:31)
[2024-08-14 21:30] VITALS: PULSE 59; RESP 16
[2024-08-14] MEDS: Pravastatin 20 MG Tablet PO (21:32)
[2024-08-14] MEDS: traZODone 50 MG Tablet PO (21:33)
[2024-08-15] MEDS: Levothyroxine 100 MCG Tablet 250 MCG PO (05:10)
[2024-08-15 08:43] VITALS: BP 102/57; PULSE 64; RESP 16; TEMP 36.2; O2SAT 93
[2024-08-15] MEDS: Multivitamins,Ther W-Minerals Tablet 1 TABLET PO (08:46)
[2024-08-15] MEDS: Tamsulosin HCl 0.4 MG Capsule PO (08:46)
[2024-08-15] MEDS: DULoxetine Hcl 30 MG Capsule PO (08:46)
[2024-08-15] MEDS: APIXABAN 5 MG TABLET PO ×2 (08:46→21:12)
[2024-08-15] MEDS: Cyanocobalamin 500 MCG Tablet 1000 MCG PO (08:47)
[2024-08-15] MEDS: Potassium Chloride Oral Tablet 20 MEQ PO (08:47)
[2024-08-15] MEDS: Finasteride 5 MG Tablet PO (08:47)
[2024-08-15] MEDS: Multivitamin (Healthy Eyes) Capsule 1 CAP PO ×2 (08:47→21:11)
[2024-08-15] MEDS: Furosemide 20 MG Tablet PO (08:47)
[2024-08-15] MEDS: Zinc Sulfate 50 mg zinc (220 mg) ORAL capsule PO (08:48)
[2024-08-15] MEDS: Lisinopril 2.5 MG Tablet PO (08:48)
[2024-08-15] MEDS: Gabapentin 600 MG Tablet 1800 MG PO ×2 (08:51→21:10)
[2024-08-15] MEDS: Nystatin Powder 15gm Bottle 1 APPLIC TOPICAL (08:53)
--- NOTE | 2024-08-15 09:10 | NURSING ---
Addendum entered by Korina Colunga 08/15/24 12:03: dr gifford notified of pedal edema LT > RT, pt does state it is worse than his normal. new order ^ lasix 40mg daily & recheck labs in 2 days. also ordered antifungal cream for toenails. Original Note: pt with increased pitting edema LT pedal, pt states more than normal feet and legs washed with dove bar soap and rinsed well. JOSE A wraps applied, elevated in chair. will update DR Gifford.
[2024-08-15 12:32] VITALS: PULSE 63; RESP 18; O2SAT 96
[2024-08-15] MEDS: Ammonium Lactate 225 gm Bottle 1 APPLIC TOPICAL (21:11)
[2024-08-15] MEDS: Clotrimazole 1 APPLIC Tube TOPICAL (21:11)
[2024-08-15] MEDS: Pravastatin 20 MG Tablet PO (21:12)
[2024-08-15] MEDS: traZODone 50 MG Tablet PO (21:12)
[2024-08-16] MEDS: Levothyroxine 125 MCG Tablet PO (05:41)
[2024-08-16] MEDS: Tamsulosin HCl 0.4 MG Capsule PO (10:21)
[2024-08-16] MEDS: Lisinopril 2.5 MG Tablet PO (10:21)
[2024-08-16] MEDS: Gabapentin 600 MG Tablet 1800 MG PO ×2 (10:21→20:38)
[2024-08-16] MEDS: Multivitamins,Ther W-Minerals Tablet 1 TABLET PO (10:22)
[2024-08-16] MEDS: DULoxetine Hcl 30 MG Capsule PO (10:22)
[2024-08-16] MEDS: Furosemide 40 MG Tablet PO (10:22)
[2024-08-16] MEDS: Clotrimazole 1 APPLIC Tube TOPICAL ×2 (10:22→20:35)
[2024-08-16] MEDS: Potassium Chloride Oral Tablet 20 MEQ PO (10:22)
[2024-08-16] MEDS: APIXABAN 5 MG TABLET PO ×2 (10:22→20:34)
[2024-08-16] MEDS: Multivitamin (Healthy Eyes) Capsule 1 CAP PO ×2 (10:22→20:35)
[2024-08-16] MEDS: Nystatin Powder 15gm Bottle 1 APPLIC TOPICAL ×2 (10:22→20:33)
[2024-08-16] MEDS: Cyanocobalamin 500 MCG Tablet 1000 MCG PO (10:22)
[2024-08-16] MEDS: Finasteride 5 MG Tablet PO (10:22)
[2024-08-16] MEDS: Zinc Sulfate 50 mg zinc (220 mg) ORAL capsule PO (10:22)
[2024-08-16] MEDS: Ammonium Lactate 225 gm Bottle 1 APPLIC TOPICAL ×2 (10:23→20:36)
[2024-08-16 10:32] VITALS: BP 109/57; PULSE 60
[2024-08-16 13:30] VITALS: BP 119/52; PULSE 61; RESP 16; TEMP 36.8; O2SAT 94
--- NOTE | 2024-08-16 15:27 | PN.TCU_ITS ---
Subjective Subjective Resident seen, examined for regulatory visit. He has been noticing more swelling in bilateral lower extremities, Furosemide was increased from 20mg every other day to 20mg daily and now to 40mg daily, monitor renal function with bloodwork. JOSE A wraps to bilateral lower extremities, resident sleeps in recliner, unable to elevated legs any higher. He notes worse swelling on left lower extremity, will order Doppler ultrasound LLE. Objective Data Objective Data Vital Signs: Vital Signs Temp Pulse Resp BP Pulse Ox O2 Del Method 98.2 F 61 16 119/52 L 94 Room Air 08/16/24 13:30 08/16/24 13:30 08/16/24 13:30 08/16/24 13:30 08/16/24 13:30 08/16/24 13:30 Oxygen Delivery Method Room Air Weight: 130.136 kg Body Mass Index (BMI) 40.0 Intake & Output: Intake and Output for Last 24 Hours 08/14/24 08/15/24 08/16/24 23:59 23:59 23:59 Intake Total 800 / 800 660 / 660 680 / 680 Output Total 800 / 800 200 / 200 Balance 800 / 800 -140 / -140 480 / 480 Lab / Micro Data 08/13/24 05:25 08/13/24 05:25 Micro: Microbiology 08/11/24 Unknown Nasal Secretion SARS-CoV-2 Antigen (Rapid) - Final 08/04/24 05:33 Nasal Secretion SARS-CoV-2 Antigen (Rapid) - Final Physical Exam Const alert General Appearance: cooperative HEENT normocephalic Eyes PERRL and EOMs intact bilaterally Neck supple, no JVD and no carotid bruits Resp normal respiratory effort, normal air movement and clear to auscultation bilaterally Cardio regular rate and regular rhythm GI normal to inspection, nondistended, normoactive bowel sounds, non-tender and non-distended Extremity normal capillary refill Extremity Narrative: Bilateral lower extremity swelling, left > right. General Extremity: edema bilateral (2+) Skin no rashes or lesions noted General Skin Exam: no breakdown Neuro moves all extremities Psych affect normal Appearance: appropriate Assessment & Plan Assessment/Plan (1) Debility: (2) Sick sinus syndrome: (3) Status post cardiac pacemaker procedure: (4) Persistent atrial fibrillation: (5) Mobitz (type) I (Wenckebach's) atrioventricular block: (6) Neuropathy: (7) Imbalance: (8) Essential (primary) hypertension: (9) SVT (supraventricular tachycardia): (10) Stroke: (11) Hyperlipidemia: (12) BPH (benign prostatic hyperplasia): (13) Insomnia: (14) Depression: (15) Hypokalemia: (16) Hypothyroidism: PLAN: Plan 83 year old male with recent diagnosis of atrial fibrillation, second degree AV block Type 1, sick sinus syndrome, bradycardia, hospitalized for permanent pacemaker placement 07/19/[address] Boone, complicated by chronic neuropathy, imbalance, admitted to TCU with debility, here for rehabilitation, strengthening, prior to discharge home with . * Debility - PT/OT. * Pain - Tylenol 1000mg q6 prn pain (1-10). * Bowel - senna/colace 1 tablet bid prn, Magnesium citrate 300mL daily prn. * Adult immunization - Administer pneumonia vaccine, covid vaccine, flu vaccine as appropriate. * DVT prophylaxis - Eliquis. * Atrial fibrillation with bradycardia status post pacemaker placement - Eliquis 5mg bid. * Vitamin B12 deficiency - B12 1000mcg daily. * Neuropathy - Duloxetine 30mg daily, Gabapentin 1800mg q12. * BPH - Finasteride 5mg daily, Tamsulosin 0.4mg daily. * Chronic HFpEF - Lisinopril 2.5mg daily, Furosemide 40mg daily, monitor bmp. * Hypothyroidism - Levothyroxine 125mcg daily 5 days per week, 250mcg daily 2 days per week. * Macular degeneration - Healthy Eyes 1 capsule bid. * Nutrition - MVI 1 tablet daily. * Hypokalemia - KCL 20meq daily. * Hyperlipidemia - Pravastatin 20mg qhs. * Insomnia - Trazodone 50mg qhs, stable chronic continuous churn buttermaker use, GDR not recommended. * Zinc deficiency - Zinc 50mg daily. * Tinea Corporis - Clotrimazole topical bid, Nystatin powder topical bid. * Cough - Robitussin DM 10ml q6 prn.
[2024-08-16] MEDS: traZODone 50 MG Tablet PO (20:34)
[2024-08-16] MEDS: guaiFENesin Dm 10 ML UDC PO (20:34)
[2024-08-16] MEDS: Pravastatin 20 MG Tablet PO (20:35)
[2024-08-16 21:00] VITALS: PULSE 64; RESP 18; O2SAT 94
[2024-08-17] MEDS: Levothyroxine 125 MCG Tablet PO (05:22)
[2024-08-17 05:26] VITALS: PULSE 60; RESP 16; O2SAT 90
[2024-08-17 06:02] LABS: Absolute Lymphocyte Count 1.26 X10^3/uL (0.83-4.51); Absolute Neutrophil Count 5.5 X10^3/uL (2.0-7.7); Basophil# 0.08 X10^3/uL; Eosinophil# 0.39 X10^3/uL; Eosinophils% 4.9 % (0-5); Hematocrit 41.8 % (40-54); Lymphocyte # 1.26 X10^3/ul (0.83-4.51); Mean Corp Hgb Conc 31.1 g/dL (32-36); Mean Corpuscular Hgb 27.1 pg (27.0-32.0); Mean Corpuscular Volume 87.3 fL (80-94); Mean Platelet Vol. 10.9 fl (6.2-12.0); Monocyte# 0.62 X10^3/uL; Monocyte% 7.9 % (0-10); NRBC Flagged by Analyzer 0 % (0-5); Neutrophil # 5.51 X10^3/uL (2.7-7.7); Neutrophil % 69.8 % (47-70); Platelet Count 172 K/mm3 (150-450); RBC Distribution Width SD 57.5 fl (35.1-43.9); Red Blood Count 4.79 M/mm3 (4.6-6.2); White Blood Count 7.9 K/mm3 (4.4-11.0)
[2024-08-17 06:15] LABS: Anion Gap 8 (5-15); BUN 21 mg/dL (7-18); BUN/Creat Ratio 20.6 RATIO (10-20); Calcium,Total 8.7 mg/dL (8.5-10.1); Chloride 104 mmol/L (98-107); Creatinine, Serum 1.02 mg/dL (0.70-1.30); EST Glomerular Filtration Rate 74 mL/min (>60); Est Glom Filt Rate - Afr Amer 89 mL/min (>60); Estimated Creatinine Clearance 74.14 ml/min; Glucose 110 mg/dL (74-106); Potassium 3.9 mmol/L (3.5-5.1); Sodium Level 140 mmol/L (136-145)
[2024-08-17 08:57] VITALS: BP 106/52; PULSE 60; RESP 16; TEMP 36.5; O2SAT 92
[2024-08-17] MEDS: Lisinopril 2.5 MG Tablet PO (08:57)
[2024-08-17] MEDS: Cyanocobalamin 500 MCG Tablet 1000 MCG PO (08:57)
[2024-08-17] MEDS: Multivitamin (Healthy Eyes) Capsule 1 CAP PO ×2 (08:57→21:40)
[2024-08-17] MEDS: Multivitamins,Ther W-Minerals Tablet 1 TABLET PO (08:57)
[2024-08-17] MEDS: Furosemide 40 MG Tablet PO (08:57)
[2024-08-17] MEDS: Tamsulosin HCl 0.4 MG Capsule PO (08:57)
[2024-08-17] MEDS: Zinc Sulfate 50 mg zinc (220 mg) ORAL capsule PO (08:57)
[2024-08-17] MEDS: Potassium Chloride Oral Tablet 20 MEQ PO (08:57)
[2024-08-17] MEDS: Finasteride 5 MG Tablet PO (08:57)
[2024-08-17] MEDS: APIXABAN 5 MG TABLET PO ×2 (08:57→21:40)
[2024-08-17] MEDS: DULoxetine Hcl 30 MG Capsule PO (08:58)
[2024-08-17] MEDS: Ammonium Lactate 225 gm Bottle 1 APPLIC TOPICAL ×2 (08:58→21:39)
[2024-08-17] MEDS: Clotrimazole 1 APPLIC Tube TOPICAL ×2 (08:58→21:39)
[2024-08-17] MEDS: Nystatin Powder 15gm Bottle 1 APPLIC TOPICAL ×2 (08:59→21:38)
[2024-08-17] MEDS: Gabapentin 600 MG Tablet 1800 MG PO ×2 (09:00→21:37)
[2024-08-17 11:00] VITALS: BMI 39.9
[2024-08-17] MEDS: Pravastatin 20 MG Tablet PO (21:39)
[2024-08-17] MEDS: traZODone 50 MG Tablet PO (21:40)
[2024-08-18] MEDS: Levothyroxine 125 MCG Tablet PO (04:46)
[2024-08-18] MEDS: Potassium Chloride Oral Tablet 20 MEQ PO (10:34)
[2024-08-18] MEDS: Clotrimazole 1 APPLIC Tube TOPICAL ×2 (10:34→20:14)
[2024-08-18] MEDS: Tamsulosin HCl 0.4 MG Capsule PO (10:34)
[2024-08-18] MEDS: Furosemide 40 MG Tablet PO (10:34)
[2024-08-18] MEDS: DULoxetine Hcl 30 MG Capsule PO (10:34)
[2024-08-18] MEDS: APIXABAN 5 MG TABLET PO ×2 (10:34→20:15)
[2024-08-18] MEDS: Multivitamin (Healthy Eyes) Capsule 1 CAP PO ×2 (10:34→20:15)
[2024-08-18] MEDS: Lisinopril 2.5 MG Tablet PO (10:34)
[2024-08-18] MEDS: Finasteride 5 MG Tablet PO (10:34)
[2024-08-18] MEDS: Ammonium Lactate 225 gm Bottle 1 APPLIC TOPICAL ×2 (10:34→20:14)
[2024-08-18] MEDS: Multivitamins,Ther W-Minerals Tablet 1 TABLET PO (10:34)
[2024-08-18] MEDS: Cyanocobalamin 500 MCG Tablet 1000 MCG PO (10:34)
[2024-08-18] MEDS: Zinc Sulfate 50 mg zinc (220 mg) ORAL capsule PO (10:34)
[2024-08-18 10:44] VITALS: BP 110/50; PULSE 60; RESP 16; TEMP 36.7; O2SAT 95
[2024-08-18] MEDS: Gabapentin 600 MG Tablet 1800 MG PO ×2 (11:27→20:14)
[2024-08-18] MEDS: Nystatin Powder 15gm Bottle 1 APPLIC TOPICAL ×2 (11:28→20:15)
[2024-08-18] MEDS: Pravastatin 20 MG Tablet PO (20:16)
[2024-08-18] MEDS: traZODone 50 MG Tablet PO (20:16)
[2024-08-18 20:20] VITALS: PULSE 61; RESP 18; O2SAT 93
[2024-08-19] MEDS: Levothyroxine 125 MCG Tablet PO (05:24)
[2024-08-19] MEDS: Multivitamins,Ther W-Minerals Tablet 1 TABLET PO (09:29)
[2024-08-19] MEDS: Potassium Chloride Oral Tablet 20 MEQ PO (09:29)
[2024-08-19] MEDS: Cyanocobalamin 500 MCG Tablet 1000 MCG PO (09:29)
[2024-08-19] MEDS: Furosemide 40 MG Tablet PO (09:29)
[2024-08-19] MEDS: Zinc Sulfate 50 mg zinc (220 mg) ORAL capsule PO (09:29)
[2024-08-19] MEDS: DULoxetine Hcl 30 MG Capsule PO (09:29)
[2024-08-19] MEDS: Multivitamin (Healthy Eyes) Capsule 1 CAP PO ×2 (09:29→20:52)
[2024-08-19] MEDS: Lisinopril 2.5 MG Tablet PO (09:30)
[2024-08-19] MEDS: Ammonium Lactate 225 gm Bottle 1 APPLIC TOPICAL ×2 (09:30→20:54)
[2024-08-19] MEDS: Tamsulosin HCl 0.4 MG Capsule PO (09:30)
[2024-08-19] MEDS: APIXABAN 5 MG TABLET PO ×2 (09:30→20:53)
[2024-08-19] MEDS: Finasteride 5 MG Tablet PO (09:30)
[2024-08-19] MEDS: Clotrimazole 1 APPLIC Tube TOPICAL ×2 (09:31→20:54)
[2024-08-19] MEDS: Gabapentin 600 MG Tablet 1800 MG PO ×2 (09:35→20:51)
[2024-08-19] MEDS: Nystatin Powder 15gm Bottle 1 APPLIC TOPICAL ×2 (09:35→20:52)
[2024-08-19 09:38] VITALS: BP 112/49; PULSE 79; RESP 16; TEMP 36.6; O2SAT 96
--- NOTE | 2024-08-19 09:57 | NURSING ---
porcelain technician report no DVT on doppler.
[2024-08-19] MEDS: Acetaminophen 500 MG Tablet 1000 MG PO (14:46)
--- NOTE | 2024-08-19 15:14 | NURSING ---
requesting that their son be added to contact list, Zack Arango [phone]. registration notified and will add this info.
--- NOTE | 2024-08-19 17:41 | RAD_ITS ---
PROCEDURE: Right knee radiographs REASON FOR EXAM: Pain TECHNIQUE: Four views of the right knee COMPARISON: None. FINDINGS: See impression RAD/Knee 4 or More Views IMPRESSION: Negative for acute fracture or dislocation. Moderate tricompartmental osteoart hritis. Chondrocalcinosis consistent with CPPD. Moderate knee joint effusion. Superior patellar enthesopathy. Vascular calcif ications. Reading Location: [facility]
[2024-08-19 18:54] LABS: Uric Acid 7.1 mg/dL (3.5-7.2)
[2024-08-19] MEDS: Pravastatin 20 MG Tablet PO (20:52)
[2024-08-19] MEDS: traZODone 50 MG Tablet PO (20:52)
[2024-08-20] MEDS: Levothyroxine 125 MCG Tablet PO (05:13)
[2024-08-20 06:04] LABS: Absolute Lymphocyte Count 1.35 X10^3/uL (0.83-4.51); Absolute Neutrophil Count 5.4 X10^3/uL (2.0-7.7); Basophil# 0.09 X10^3/uL; Basophil% 1.1 % (0-1); Eosinophil# 0.54 X10^3/uL; Eosinophils% 6.7 % (0-5); Hematocrit 40.6 % (40-54); Hemoglobin 12.6 g/dL (13.0-16.5); Lymphocyte # 1.35 X10^3/ul (0.83-4.51); Lymphocyte % 16.7 % (19-41); Mean Corpuscular Hgb 27.5 pg (27.0-32.0); Mean Corpuscular Volume 88.6 fL (80-94); Mean Platelet Vol. 10.6 fl (6.2-12.0); Monocyte# 0.61 X10^3/uL; Monocyte% 7.6 % (0-10); NRBC Flagged by Analyzer 0 % (0-5); Neutrophil # 5.44 X10^3/uL (2.7-7.7); Neutrophil % 67.5 % (47-70); Platelet Count 174 K/mm3 (150-450); RBC Distribution Width CV 17.8 % (11.6-14.6); RBC Distribution Width SD 58.3 fl (35.1-43.9); Red Blood Count 4.58 M/mm3 (4.6-6.2); White Blood Count 8.1 K/mm3 (4.4-11.0)
[2024-08-20] MEDS: Ammonium Lactate 225 gm Bottle 1 APPLIC TOPICAL ×2 (08:16→22:06)
[2024-08-20] MEDS: Furosemide 40 MG Tablet PO (08:17)
[2024-08-20] MEDS: Clotrimazole 1 APPLIC Tube TOPICAL ×2 (08:17→22:05)
[2024-08-20] MEDS: Cyanocobalamin 500 MCG Tablet 1000 MCG PO (08:17)
[2024-08-20] MEDS: Potassium Chloride Oral Tablet 20 MEQ PO (08:17)
[2024-08-20] MEDS: Multivitamins,Ther W-Minerals Tablet 1 TABLET PO (08:17)
[2024-08-20] MEDS: APIXABAN 5 MG TABLET PO ×2 (08:17→22:04)
[2024-08-20] MEDS: Multivitamin (Healthy Eyes) Capsule 1 CAP PO ×2 (08:18→22:04)
[2024-08-20] MEDS: Zinc Sulfate 50 mg zinc (220 mg) ORAL capsule PO (08:18)
[2024-08-20] MEDS: Lisinopril 2.5 MG Tablet PO (08:18)
[2024-08-20] MEDS: DULoxetine Hcl 30 MG Capsule PO (08:18)
[2024-08-20] MEDS: Finasteride 5 MG Tablet PO (08:18)
[2024-08-20] MEDS: Tamsulosin HCl 0.4 MG Capsule PO (08:18)
[2024-08-20] MEDS: Nystatin Powder 15gm Bottle 1 APPLIC TOPICAL ×2 (08:19→22:05)
[2024-08-20 08:34] VITALS: BP 109/53; PULSE 60; RESP 16; TEMP 36.8; O2SAT 92
[2024-08-20 09:06] LABS: Anion Gap 11 (5-15); BUN 21 mg/dL (4-19); BUN/Creat Ratio 20.9 RATIO (10-20); Calcium 8.6 mg/dL (7.6-11.0); Carbon Dioxide 29.2 mmol/L (22.0-29.0); Chloride 101 mmol/L (96-108); EST Glomerular Filtration Rate 74 (>60); Glucose 111 mg/dL (70-99); Potassium 4.1 mmol/L (3.3-5.1); Sodium Level 141 mmol/L (133-145)
[2024-08-20] MEDS: Pantoprazole Sodium 40 MG Tablet PO (09:24)
[2024-08-20] MEDS: Gabapentin 600 MG Tablet 1800 MG PO ×2 (09:24→22:03)
[2024-08-20] MEDS: Colchicine 0.6 MG TABLET PO (09:24)
[2024-08-20] MEDS: traZODone 50 MG Tablet PO (22:04)
[2024-08-20] MEDS: Pravastatin 20 MG Tablet PO (22:04)
[2024-08-21] MEDS: Levothyroxine 100 MCG Tablet 250 MCG PO (05:06)
[2024-08-21] MEDS: Cyanocobalamin 500 MCG Tablet 1000 MCG PO (09:22)
[2024-08-21] MEDS: Gabapentin 600 MG Tablet 1800 MG PO ×2 (09:22→20:47)
[2024-08-21] MEDS: APIXABAN 5 MG TABLET PO ×2 (09:23→20:47)
[2024-08-21] MEDS: Finasteride 5 MG Tablet PO (09:23)
[2024-08-21] MEDS: Multivitamin (Healthy Eyes) Capsule 1 CAP PO ×2 (09:23→20:47)
[2024-08-21] MEDS: Potassium Chloride Oral Tablet 20 MEQ PO (09:23)
[2024-08-21] MEDS: Lisinopril 2.5 MG Tablet PO (09:23)
[2024-08-21] MEDS: Multivitamins,Ther W-Minerals Tablet 1 TABLET PO (09:23)
[2024-08-21] MEDS: Zinc Sulfate 50 mg zinc (220 mg) ORAL capsule PO (09:23)
[2024-08-21] MEDS: Tamsulosin HCl 0.4 MG Capsule PO (09:23)
[2024-08-21] MEDS: Colchicine 0.6 MG TABLET PO (09:23)
[2024-08-21] MEDS: DULoxetine Hcl 30 MG Capsule PO (09:23)
[2024-08-21] MEDS: Furosemide 40 MG Tablet PO (09:24)
[2024-08-21] MEDS: Nystatin Powder 15gm Bottle 1 APPLIC TOPICAL ×2 (09:24→20:54)
[2024-08-21] MEDS: Pantoprazole Sodium 40 MG Tablet PO (09:24)
[2024-08-21] MEDS: Clotrimazole 1 APPLIC Tube TOPICAL ×2 (09:25→20:48)
[2024-08-21] MEDS: Ammonium Lactate 225 gm Bottle 1 APPLIC TOPICAL ×2 (09:25→20:47)
[2024-08-21 14:32] VITALS: BP 116/60; PULSE 61; RESP 14; TEMP 36.5; O2SAT 96
[2024-08-21] MEDS: Pravastatin 20 MG Tablet PO (20:47)
[2024-08-21] MEDS: traZODone 50 MG Tablet PO (20:47)
[2024-08-22 06:00] VITALS: BMI 39.4
[2024-08-22] MEDS: Levothyroxine 100 MCG Tablet 250 MCG PO (06:09)
[2024-08-22] MEDS: Multivitamins,Ther W-Minerals Tablet 1 TABLET PO (08:03)
[2024-08-22] MEDS: Gabapentin 600 MG Tablet 1800 MG PO ×2 (10:40→21:09)
[2024-08-22] MEDS: APIXABAN 5 MG TABLET PO ×2 (10:41→21:05)
[2024-08-22] MEDS: Tamsulosin HCl 0.4 MG Capsule PO (10:42)
[2024-08-22] MEDS: DULoxetine Hcl 30 MG Capsule PO (10:42)
[2024-08-22] MEDS: Colchicine 0.6 MG TABLET PO (10:43)
[2024-08-22] MEDS: Potassium Chloride Oral Tablet 20 MEQ PO (10:44)
[2024-08-22] MEDS: Pantoprazole Sodium 40 MG Tablet PO (10:44)
[2024-08-22] MEDS: Furosemide 40 MG Tablet PO (10:45)
[2024-08-22] MEDS: Multivitamin (Healthy Eyes) Capsule 1 CAP PO ×2 (10:45→21:05)
[2024-08-22] MEDS: Cyanocobalamin 500 MCG Tablet 1000 MCG PO (10:46)
[2024-08-22] MEDS: Zinc Sulfate 50 mg zinc (220 mg) ORAL capsule PO (10:47)
[2024-08-22] MEDS: Lisinopril 2.5 MG Tablet PO (10:47)
[2024-08-22] MEDS: Finasteride 5 MG Tablet PO (10:48)
[2024-08-22] MEDS: Ammonium Lactate 225 gm Bottle 1 APPLIC TOPICAL ×2 (10:52→21:06)
[2024-08-22] MEDS: Clotrimazole 1 APPLIC Tube TOPICAL ×2 (10:52→21:06)
[2024-08-22] MEDS: Nystatin Powder 15gm Bottle 1 APPLIC TOPICAL ×2 (11:01→21:06)
[2024-08-22 16:00] VITALS: BP 114/61; PULSE 62; RESP 17; TEMP 36.4; O2SAT 92
[2024-08-22] MEDS: Pravastatin 20 MG Tablet PO (21:05)
[2024-08-22] MEDS: traZODone 50 MG Tablet PO (21:05)
[2024-08-23] MEDS: Levothyroxine 125 MCG Tablet PO (05:32)
[2024-08-23 06:00] VITALS: BMI 39.6
[2024-08-23 08:00] VITALS: BP 109/63; PULSE 60; RESP 16; O2SAT 92
[2024-08-23] MEDS: Multivitamin (Healthy Eyes) Capsule 1 CAP PO ×2 (08:16→20:20)
[2024-08-23] MEDS: Furosemide 40 MG Tablet PO (08:16)
[2024-08-23] MEDS: Cyanocobalamin 500 MCG Tablet 1000 MCG PO (08:16)
[2024-08-23] MEDS: Finasteride 5 MG Tablet PO (08:16)
[2024-08-23] MEDS: Pantoprazole Sodium 40 MG Tablet PO (08:16)
[2024-08-23] MEDS: Gabapentin 600 MG Tablet 1800 MG PO ×2 (08:16→20:20)
[2024-08-23] MEDS: Potassium Chloride Oral Tablet 20 MEQ PO (08:16)
[2024-08-23] MEDS: Multivitamins,Ther W-Minerals Tablet 1 TABLET PO (08:17)
[2024-08-23] MEDS: Zinc Sulfate 50 mg zinc (220 mg) ORAL capsule PO (08:17)
[2024-08-23] MEDS: DULoxetine Hcl 30 MG Capsule PO (08:17)
[2024-08-23] MEDS: Tamsulosin HCl 0.4 MG Capsule PO (08:17)
[2024-08-23] MEDS: Colchicine 0.6 MG TABLET PO (08:17)
[2024-08-23] MEDS: APIXABAN 5 MG TABLET PO ×2 (08:17→20:20)
[2024-08-23] MEDS: Ammonium Lactate 225 gm Bottle 1 APPLIC TOPICAL ×2 (08:17→20:19)
[2024-08-23] MEDS: Lisinopril 2.5 MG Tablet PO (08:17)
[2024-08-23] MEDS: Nystatin Powder 15gm Bottle 1 APPLIC TOPICAL ×2 (08:18→20:20)
[2024-08-23] MEDS: Clotrimazole 1 APPLIC Tube TOPICAL ×2 (08:18→20:19)
[2024-08-23] MEDS: Pravastatin 20 MG Tablet PO (20:20)
[2024-08-23] MEDS: traZODone 50 MG Tablet PO (20:20)
[2024-08-24 06:00] VITALS: BMI 39.7
[2024-08-24] MEDS: Levothyroxine 125 MCG Tablet PO (06:27)
[2024-08-24] MEDS: Multivitamin (Healthy Eyes) Capsule 1 CAP PO ×2 (08:40→20:14)
[2024-08-24] MEDS: Lisinopril 2.5 MG Tablet PO (08:40)
[2024-08-24] MEDS: Colchicine 0.6 MG TABLET PO (08:40)
[2024-08-24] MEDS: Furosemide 40 MG Tablet PO (08:40)
[2024-08-24] MEDS: Zinc Sulfate 50 mg zinc (220 mg) ORAL capsule PO (08:40)
[2024-08-24] MEDS: APIXABAN 5 MG TABLET PO ×2 (08:40→20:15)
[2024-08-24] MEDS: DULoxetine Hcl 30 MG Capsule PO (08:40)
[2024-08-24] MEDS: Tamsulosin HCl 0.4 MG Capsule PO (08:40)
[2024-08-24] MEDS: Cyanocobalamin 500 MCG Tablet 1000 MCG PO (08:40)
[2024-08-24] MEDS: Pantoprazole Sodium 40 MG Tablet PO (08:40)
[2024-08-24] MEDS: Multivitamins,Ther W-Minerals Tablet 1 TABLET PO (08:40)
[2024-08-24] MEDS: Finasteride 5 MG Tablet PO (08:40)
[2024-08-24] MEDS: Nystatin Powder 15gm Bottle 1 APPLIC TOPICAL ×2 (08:41→20:14)
[2024-08-24] MEDS: Gabapentin 600 MG Tablet 1800 MG PO ×2 (08:41→20:24)
[2024-08-24] MEDS: Ammonium Lactate 225 gm Bottle 1 APPLIC TOPICAL ×2 (08:42→20:08)
[2024-08-24] MEDS: Clotrimazole 1 APPLIC Tube TOPICAL ×2 (08:42→20:08)
[2024-08-24] MEDS: Potassium Chloride Oral Tablet 20 MEQ PO (08:44)
[2024-08-24 09:56] VITALS: BP 120/62; PULSE 59; RESP 16; TEMP 36.3; O2SAT 96
[2024-08-24 11:00] VITALS: BMI 39.7
[2024-08-24] MEDS: traZODone 50 MG Tablet PO (20:14)
[2024-08-24] MEDS: Pravastatin 20 MG Tablet PO (20:14)
[2024-08-25 06:00] VITALS: BMI 39.9
[2024-08-25] MEDS: Levothyroxine 125 MCG Tablet PO (06:02)
[2024-08-25] MEDS: Zinc Sulfate 50 mg zinc (220 mg) ORAL capsule PO (08:21)
[2024-08-25] MEDS: APIXABAN 5 MG TABLET PO ×2 (08:21→20:22)
[2024-08-25] MEDS: Pantoprazole Sodium 40 MG Tablet PO (08:21)
[2024-08-25] MEDS: Multivitamins,Ther W-Minerals Tablet 1 TABLET PO (08:21)
[2024-08-25] MEDS: Lisinopril 2.5 MG Tablet PO (08:21)
[2024-08-25] MEDS: Potassium Chloride Oral Tablet 20 MEQ PO (08:21)
[2024-08-25] MEDS: Multivitamin (Healthy Eyes) Capsule 1 CAP PO ×2 (08:21→20:22)
[2024-08-25] MEDS: Tamsulosin HCl 0.4 MG Capsule PO (08:22)
[2024-08-25] MEDS: Cyanocobalamin 500 MCG Tablet 1000 MCG PO (08:22)
[2024-08-25] MEDS: Furosemide 40 MG Tablet PO (08:23)
[2024-08-25] MEDS: DULoxetine Hcl 30 MG Capsule PO (08:23)
[2024-08-25] MEDS: Finasteride 5 MG Tablet PO (08:23)
[2024-08-25] MEDS: Ammonium Lactate 225 gm Bottle 1 APPLIC TOPICAL ×2 (08:24→20:21)
[2024-08-25] MEDS: Clotrimazole 1 APPLIC Tube TOPICAL ×2 (08:24→20:21)
[2024-08-25] MEDS: Nystatin Powder 15gm Bottle 1 APPLIC TOPICAL ×2 (08:25→20:22)
[2024-08-25 08:30] VITALS: BP 120/64; PULSE 65; RESP 18; TEMP 36.6; O2SAT 92
[2024-08-25] MEDS: Colchicine 0.6 MG TABLET PO (08:36)
[2024-08-25] MEDS: Gabapentin 600 MG Tablet 1800 MG PO ×2 (08:36→20:21)
--- NOTE | 2024-08-25 16:26 | CASEMGMT ---
Social Work SW received extensive email from with several inquiries. SW phoned to provide answers. SW answered questions, and primarily discussed pt's DC plans and timeframe. SW explained IDT's concerns with homegoing without additional support in place d/t pt's extensive fall history. Explained the knee buckling and weakness is unable to be solved, thus, pt needing CGA-Chase for walking, etc, to assist in preventing falls. replied that pt does not fall when using the walker. SW explained the pt's knees still buckle and that is when the therapist is using Chase, and inquired the solution for home on who is going to provide that assistance. Therapists are not going to recommend pt being adlib or mod I d/t knee buckling. explained, this is not a new issue, which IDT recognizes. explained she is scheduled to have cataract surgery in September, which should improve her vision and allow more assistance to pt; 'we'll just have to leave it there. maybe we just go use to this and you professionals are giivng this light again that we [family] need to pay more attention to. SW confirmed. agreed to participate in therapy training already scheduled with therapy on 08/31, after pt's cardiology appt (it was changed from 08/30). After, this worker will follow up with pt and to discuss outcome of training and set a DC date. to provide update to children as well. then inquired about insurance coverage during pt's stay, i.e. [employer] or pt's LTC policy. SW reminded of explanation at POC and following [facility] and [facility] process. SW provided written communication in addition to which suggestion to contact insurance about copay coverage. Otherwise, it would be billed to the pt. repeated back summary of conversation, with accuracy, and appreciative of this worker's information. SW will continue to follow for DC planning. Sandra Arita MSW HOSTESS HOST
[2024-08-25] MEDS: Pravastatin 20 MG Tablet PO (20:23)
[2024-08-25] MEDS: traZODone 50 MG Tablet PO (20:23)
--- NOTE | 2024-08-25 23:13 | NURSING ---
Patient requests to speak with SW regarding discharge planning tomorrow. Confidential voicemail left for SW regarding patient request.
[2024-08-26] MEDS: Levothyroxine 125 MCG Tablet PO (05:56)
[2024-08-26 06:00] VITALS: BMI 39.6
[2024-08-26] MEDS: Multivitamins,Ther W-Minerals Tablet 1 TABLET PO (08:13)
[2024-08-26] MEDS: APIXABAN 5 MG TABLET PO ×2 (08:13→22:02)
[2024-08-26] MEDS: DULoxetine Hcl 30 MG Capsule PO (08:13)
[2024-08-26] MEDS: Clotrimazole 1 APPLIC Tube TOPICAL ×2 (08:13→22:04)
[2024-08-26] MEDS: Furosemide 40 MG Tablet PO (08:13)
[2024-08-26] MEDS: Colchicine 0.6 MG TABLET PO (08:13)
[2024-08-26] MEDS: Potassium Chloride Oral Tablet 20 MEQ PO (08:13)
[2024-08-26] MEDS: Tamsulosin HCl 0.4 MG Capsule PO (08:13)
[2024-08-26] MEDS: Multivitamin (Healthy Eyes) Capsule 1 CAP PO ×2 (08:13→22:02)
[2024-08-26] MEDS: Ammonium Lactate 225 gm Bottle 1 APPLIC TOPICAL ×2 (08:13→22:03)
[2024-08-26] MEDS: Pantoprazole Sodium 40 MG Tablet PO (08:14)
[2024-08-26] MEDS: Gabapentin 600 MG Tablet 1800 MG PO ×2 (08:14→22:00)
[2024-08-26] MEDS: Finasteride 5 MG Tablet PO (08:14)
[2024-08-26] MEDS: Lisinopril 2.5 MG Tablet PO (08:14)
[2024-08-26] MEDS: Nystatin Powder 15gm Bottle 1 APPLIC TOPICAL ×2 (08:14→22:04)
[2024-08-26] MEDS: Cyanocobalamin 500 MCG Tablet 1000 MCG PO (08:14)
[2024-08-26] MEDS: Zinc Sulfate 50 mg zinc (220 mg) ORAL capsule PO (08:14)
[2024-08-26 09:39] VITALS: BP 117/61; PULSE 60; RESP 18; TEMP 36.2; O2SAT 99
--- NOTE | 2024-08-26 11:50 | CASEMGMT ---
Social Work Pt requested to speak with this worker. SW met with pt at bedside. Provided active listening as pt shared his past history of falls, how he was functioning at home, praising his for her household assistance despite her vision impairment, etc. SW answered questions. Pt was too under the impression he could DC after Dr. Mely henley. SW educated to therapy training with to ensure pt and will be safe at home. Expressed concern from IDT about frequent falls and the ability for to care for him at the CGA-Chase level to prevent falls. Pt admitted he is used to being independent and was not making safer decisions, thus 50% of his falls were his fault d/t lack of smart decisions. Pt explained he has learned his lesson and cannot be stubborn anymore. SW praised pt for acknowledgement and improvement moving forward. Pt is agreeable to remain for therapy training and to plan a safe DC. SW to follow up with pt and after training next week. Sandra Arita PASSPORT APPLICATION EXAMINER TOP FORMER
--- NOTE | 2024-08-26 12:23 | NURSING ---
Call from [facility] about setting up transmitter for device. They asked that nursing call the number on transmitter to get fully set up. RN called number and was walked through process of completing set up. Drive attached to USB. Tech support able to see that it is set up and info being transmitted. Regan asked about what to do when he goes home. Per tech he can just plug in at home and all settings saved and will work fine.
[2024-08-26] MEDS: traZODone 50 MG Tablet PO (22:02)
[2024-08-26] MEDS: Pravastatin 20 MG Tablet PO (22:03)
[2024-08-27 06:00] VITALS: BMI 39.4
[2024-08-27] MEDS: Clotrimazole 1 APPLIC Tube TOPICAL ×2 (06:17→20:54)
[2024-08-27] MEDS: Levothyroxine 125 MCG Tablet PO (06:17)
[2024-08-27] MEDS: Ammonium Lactate 225 gm Bottle 1 APPLIC TOPICAL ×2 (06:18→20:53)
[2024-08-27] MEDS: Multivitamins,Ther W-Minerals Tablet 1 TABLET PO (08:15)
[2024-08-27] MEDS: Multivitamin (Healthy Eyes) Capsule 1 CAP PO ×2 (08:15→20:54)
[2024-08-27] MEDS: Furosemide 40 MG Tablet PO (08:15)
[2024-08-27] MEDS: Colchicine 0.6 MG TABLET PO (08:15)
[2024-08-27] MEDS: Gabapentin 600 MG Tablet 1800 MG PO ×2 (08:15→20:52)
[2024-08-27] MEDS: APIXABAN 5 MG TABLET PO ×2 (08:16→20:54)
[2024-08-27] MEDS: DULoxetine Hcl 30 MG Capsule PO (08:16)
[2024-08-27] MEDS: Finasteride 5 MG Tablet PO (08:16)
[2024-08-27] MEDS: Tamsulosin HCl 0.4 MG Capsule PO (08:16)
[2024-08-27] MEDS: Cyanocobalamin 500 MCG Tablet 1000 MCG PO (08:16)
[2024-08-27] MEDS: Pantoprazole Sodium 40 MG Tablet PO (08:16)
[2024-08-27] MEDS: Potassium Chloride Oral Tablet 20 MEQ PO (08:16)
[2024-08-27] MEDS: Nystatin Powder 15gm Bottle 1 APPLIC TOPICAL ×2 (08:16→20:55)
[2024-08-27] MEDS: Zinc Sulfate 50 mg zinc (220 mg) ORAL capsule PO (08:16)
[2024-08-27] MEDS: Lisinopril 2.5 MG Tablet PO (08:16)
[2024-08-27 08:20] VITALS: BP 109/50; PULSE 63; RESP 18; TEMP 36.7; O2SAT 95
--- NOTE | 2024-08-27 11:54 | CASEMGMT ---
Social Work SW received continuous email correspondence with . requested to schedule an in-person meeting that includes this worker, pt, and dtr Isadora. SW provided available options and chose 09/02 in the afternoon. inquired about skilled [facility] specifics. SW to answer questions at family meeting. Will continue to follow. Sandar Arita EPIDEMIOLOGY INTERN HOT SEALING MACHINE OPERATOR
--- NOTE | 2024-08-27 18:52 | NURSING ---
Patients family in to visit and reported patients left eye was very red. This nurse assessed left eye; inner eye noted to be blood shot. Patient denies pain/discomfort. PERRLA. Denies any straining. Denies poking eye. RN updated.
[2024-08-27] MEDS: traZODone 50 MG Tablet PO (20:54)
[2024-08-27] MEDS: Pravastatin 20 MG Tablet PO (20:55)
[2024-08-27 21:00] VITALS: PULSE 61; RESP 16; O2SAT 93
[2024-08-28] MEDS: Levothyroxine 100 MCG Tablet 250 MCG PO (06:06)
[2024-08-28] MEDS: Clotrimazole 1 APPLIC Tube TOPICAL ×2 (08:22→20:45)
[2024-08-28] MEDS: Ammonium Lactate 225 gm Bottle 1 APPLIC TOPICAL ×2 (08:24→20:45)
[2024-08-28] MEDS: Lisinopril 2.5 MG Tablet PO (08:28)
[2024-08-28] MEDS: Zinc Sulfate 50 mg zinc (220 mg) ORAL capsule PO (08:28)
[2024-08-28] MEDS: Furosemide 40 MG Tablet PO (08:28)
[2024-08-28] MEDS: Multivitamin (Healthy Eyes) Capsule 1 CAP PO ×2 (08:29→20:44)
[2024-08-28] MEDS: Cyanocobalamin 500 MCG Tablet 1000 MCG PO (08:29)
[2024-08-28] MEDS: Finasteride 5 MG Tablet PO (08:29)
[2024-08-28] MEDS: Potassium Chloride Oral Tablet 20 MEQ PO (08:29)
[2024-08-28] MEDS: Tamsulosin HCl 0.4 MG Capsule PO (08:29)
[2024-08-28] MEDS: Nystatin Powder 15gm Bottle 1 APPLIC TOPICAL ×2 (08:29→20:45)
[2024-08-28] MEDS: Multivitamins,Ther W-Minerals Tablet 1 TABLET PO (08:29)
[2024-08-28] MEDS: APIXABAN 5 MG TABLET PO ×2 (08:29→20:44)
[2024-08-28] MEDS: DULoxetine Hcl 30 MG Capsule PO (08:29)
[2024-08-28] MEDS: Gabapentin 600 MG Tablet 1800 MG PO ×2 (08:32→20:45)
[2024-08-28 12:33] VITALS: BP 119/67; PULSE 61; RESP 12; TEMP 36.7; O2SAT 93
[2024-08-28 12:47] VITALS: BMI 39.4
[2024-08-28] MEDS: Pravastatin 20 MG Tablet PO (20:44)
[2024-08-28] MEDS: traZODone 50 MG Tablet PO (20:44)
[2024-08-29 06:00] VITALS: BMI 39.4
[2024-08-29] MEDS: Levothyroxine 100 MCG Tablet 250 MCG PO (06:33)
[2024-08-29 08:00] VITALS: BP 117/58; PULSE 61; RESP 18; TEMP 36.5; O2SAT 93
[2024-08-29] MEDS: DULoxetine Hcl 30 MG Capsule PO (08:29)
[2024-08-29] MEDS: Gabapentin 600 MG Tablet 1800 MG PO ×2 (08:29→21:11)
[2024-08-29] MEDS: Cyanocobalamin 500 MCG Tablet 1000 MCG PO (08:30)
[2024-08-29] MEDS: Furosemide 40 MG Tablet PO (08:30)
[2024-08-29] MEDS: Lisinopril 2.5 MG Tablet PO (08:30)
[2024-08-29] MEDS: APIXABAN 5 MG TABLET PO ×2 (08:30→21:12)
[2024-08-29] MEDS: Nystatin Powder 15gm Bottle 1 APPLIC TOPICAL ×2 (08:30→21:19)
[2024-08-29] MEDS: Finasteride 5 MG Tablet PO (08:30)
[2024-08-29] MEDS: Zinc Sulfate 50 mg zinc (220 mg) ORAL capsule PO (08:30)
[2024-08-29] MEDS: Multivitamin (Healthy Eyes) Capsule 1 CAP PO ×2 (08:30→21:12)
[2024-08-29] MEDS: Potassium Chloride Oral Tablet 20 MEQ PO (08:30)
[2024-08-29] MEDS: Multivitamins,Ther W-Minerals Tablet 1 TABLET PO (08:30)
[2024-08-29] MEDS: Ammonium Lactate 225 gm Bottle 1 APPLIC TOPICAL ×2 (08:31→21:14)
[2024-08-29] MEDS: Tamsulosin HCl 0.4 MG Capsule PO (08:31)
[2024-08-29] MEDS: Clotrimazole 1 APPLIC Tube TOPICAL ×2 (08:32→21:14)
--- NOTE | 2024-08-29 13:25 | NURSING ---
Sclera red in left eye, denies pain, discomfort, pressure, vision changes,or drainage Dr. Balta CHRIS update, continue to monitor and report any changes.
[2024-08-29 20:00] VITALS: PULSE 61; RESP 16; O2SAT 95
[2024-08-29] MEDS: traZODone 50 MG Tablet PO (21:13)
[2024-08-29] MEDS: Pravastatin 20 MG Tablet PO (21:13)
[2024-08-30] MEDS: Levothyroxine 125 MCG Tablet PO (05:43)
[2024-08-30 05:46] VITALS: RESP 16
[2024-08-30 06:00] VITALS: BMI 38.8
[2024-08-30] MEDS: Furosemide 40 MG Tablet PO (08:22)
[2024-08-30] MEDS: Lisinopril 2.5 MG Tablet PO (08:22)
[2024-08-30] MEDS: Finasteride 5 MG Tablet PO (08:22)
[2024-08-30] MEDS: Multivitamin (Healthy Eyes) Capsule 1 CAP PO ×2 (08:22→20:15)
[2024-08-30] MEDS: Cyanocobalamin 500 MCG Tablet 1000 MCG PO (08:22)
[2024-08-30] MEDS: Gabapentin 600 MG Tablet 1800 MG PO ×2 (08:22→20:13)
[2024-08-30] MEDS: DULoxetine Hcl 30 MG Capsule PO (08:23)
[2024-08-30] MEDS: APIXABAN 5 MG TABLET PO ×2 (08:23→20:15)
[2024-08-30] MEDS: Ammonium Lactate 225 gm Bottle 1 APPLIC TOPICAL ×2 (08:23→20:14)
[2024-08-30] MEDS: Tamsulosin HCl 0.4 MG Capsule PO (08:23)
[2024-08-30] MEDS: Clotrimazole 1 APPLIC Tube TOPICAL ×2 (08:23→20:14)
[2024-08-30] MEDS: Potassium Chloride Oral Tablet 20 MEQ PO (08:23)
[2024-08-30] MEDS: Multivitamins,Ther W-Minerals Tablet 1 TABLET PO (08:24)
[2024-08-30] MEDS: Zinc Sulfate 50 mg zinc (220 mg) ORAL capsule PO (08:24)
[2024-08-30] MEDS: Nystatin Powder 15gm Bottle 1 APPLIC TOPICAL ×2 (08:31→20:16)
[2024-08-30 08:36] VITALS: BP 132/69; PULSE 67; RESP 22; TEMP 36.2; O2SAT 92
[2024-08-30] MEDS: Pravastatin 20 MG Tablet PO (20:15)
[2024-08-30] MEDS: traZODone 50 MG Tablet PO (20:15)
--- NOTE | 2024-08-31 05:50 | NURSING ---
Left eye/sclera reddness remain, patient denies trauma to eye or straining, apparent petechiae observed to BLE distal to knees. Currently ordered eliquis 5mg BID, written communication left for Dr. Gifford. F/u at [facility] this date. Edema observed improved to BLE.
[2024-08-31 06:00] VITALS: BMI 38.7
[2024-08-31] MEDS: Levothyroxine 125 MCG Tablet PO (06:04)
[2024-08-31] MEDS: Multivitamins,Ther W-Minerals Tablet 1 TABLET PO (08:51)
[2024-08-31] MEDS: Tamsulosin HCl 0.4 MG Capsule PO (08:51)
[2024-08-31] MEDS: Gabapentin 600 MG Tablet 1800 MG PO ×2 (08:51→20:45)
[2024-08-31] MEDS: DULoxetine Hcl 30 MG Capsule PO (08:51)
[2024-08-31] MEDS: Cyanocobalamin 500 MCG Tablet 1000 MCG PO (08:52)
[2024-08-31] MEDS: Potassium Chloride Oral Tablet 20 MEQ PO (08:52)
[2024-08-31] MEDS: Lisinopril 2.5 MG Tablet PO (08:52)
[2024-08-31] MEDS: Furosemide 40 MG Tablet PO (08:52)
[2024-08-31] MEDS: Zinc Sulfate 50 mg zinc (220 mg) ORAL capsule PO (08:52)
[2024-08-31] MEDS: Multivitamin (Healthy Eyes) Capsule 1 CAP PO ×2 (08:52→20:47)
[2024-08-31] MEDS: Finasteride 5 MG Tablet PO (08:52)
[2024-08-31] MEDS: Nystatin Powder 15gm Bottle 1 APPLIC TOPICAL ×2 (08:53→20:47)
[2024-08-31] MEDS: Clotrimazole 1 APPLIC Tube TOPICAL ×2 (08:54→20:47)
[2024-08-31 09:11] VITALS: BP 120/62; PULSE 59
[2024-08-31 10:32] LABS: Absolute Lymphocyte Count 1.32 X10^3/uL (0.83-4.51); Absolute Neutrophil Count 5.7 X10^3/uL (2.0-7.7); Basophil# 0.09 X10^3/uL; Basophil% 1.2 % (0-1); Eosinophil# 0.31 X10^3/uL; Hematocrit 43.9 % (40-54); Hemoglobin 14.1 g/dL (13.0-16.5); Lymphocyte # 1.32 X10^3/ul (0.83-4.51); Lymphocyte % 17.1 % (19-41); Mean Corp Hgb Conc 32.1 g/dL (32-36); Mean Corpuscular Volume 87.3 fL (80-94); Mean Platelet Vol. 10.6 fl (6.2-12.0); Monocyte# 0.31 X10^3/uL; NRBC Flagged by Analyzer 0 % (0-5); Neutrophil # 5.66 X10^3/uL (2.7-7.7); Neutrophil % 73.4 % (47-70); Platelet Count 178 K/mm3 (150-450); RBC Distribution Width CV 18.3 % (11.6-14.6); RBC Distribution Width SD 57.2 fl (35.1-43.9); Red Blood Count 5.03 M/mm3 (4.6-6.2); White Blood Count 7.7 K/mm3 (4.4-11.0)
[2024-08-31 11:45] LABS: Anion Gap 11 (5-15); BUN 21 mg/dL (4-19); BUN/Creat Ratio 20.8 RATIO (10-20); Calcium,Total 9.1 mg/dL (7.6-11.0); Carbon Dioxide 28.4 mmol/L (21.0-32.0); Chloride 101 mmol/L (98-108); Creatinine, Serum 1.02 mg/dL (0.70-1.20); EST Glomerular Filtration Rate 72 (>60); Estimated Creatinine Clearance 72.83 ml/min (50-250); Glucose 159 mg/dL (70-99); Potassium 3.8 mmol/L (3.3-5.1); Sodium Level 140 mmol/L (133-145)
[2024-08-31 15:13] VITALS: BP 116/58; PULSE 60; RESP 20; TEMP 36.6; O2SAT 93
[2024-08-31 15:23] VITALS: BP 116/58; PULSE 60; RESP 20; TEMP 36.6; O2SAT 93
--- NOTE | 2024-08-31 15:37 | NURSING ---
Addendum entered by Faiza Hennessy 09/01/24 08:11: Call from Isabel at [facility]. Already received orders for full weight bearing LUE, she confirmed he no longer has any restrictions. Addendum entered by Kandis Martino 08/31/24 16:02: Received Phone call from Malika PEDROZA [facility] order received to hold two does of Eliquis d/t left eye and pt is weight bearing to left arm. Updated that AM does of Eliquis was held so will hold pm does and restart on 09/01/24. Orders Read back. Original Note: Called [facility] and left a message regarding new orders for weight bearing status to left arm awaiting return call.
[2024-08-31] MEDS: traZODone 50 MG Tablet PO (20:47)
[2024-08-31] MEDS: Pravastatin 20 MG Tablet PO (20:47)
[2024-08-31 20:56] VITALS: PULSE 60; RESP 16; O2SAT 94
[2024-09-01] MEDS: Levothyroxine 125 MCG Tablet PO (05:14)
[2024-09-01 06:00] VITALS: BMI 38.7
[2024-09-01 08:21] VITALS: BP 126/65; PULSE 63; RESP 16; O2SAT 96
[2024-09-01] MEDS: DULoxetine Hcl 30 MG Capsule PO (08:23)
[2024-09-01] MEDS: Tamsulosin HCl 0.4 MG Capsule PO (08:23)
[2024-09-01] MEDS: Zinc Sulfate 50 mg zinc (220 mg) ORAL capsule PO (08:23)
[2024-09-01] MEDS: Cyanocobalamin 500 MCG Tablet 1000 MCG PO (08:23)
[2024-09-01] MEDS: Multivitamin (Healthy Eyes) Capsule 1 CAP PO ×2 (08:23→20:45)
[2024-09-01] MEDS: Furosemide 40 MG Tablet PO (08:23)
[2024-09-01] MEDS: Multivitamins,Ther W-Minerals Tablet 1 TABLET PO (08:23)
[2024-09-01] MEDS: Finasteride 5 MG Tablet PO (08:23)
[2024-09-01] MEDS: Potassium Chloride Oral Tablet 20 MEQ PO (08:24)
[2024-09-01] MEDS: Lisinopril 2.5 MG Tablet PO (08:24)
[2024-09-01] MEDS: Clotrimazole 1 APPLIC Tube TOPICAL ×2 (08:25→20:46)
[2024-09-01] MEDS: Nystatin Powder 15gm Bottle 1 APPLIC TOPICAL ×2 (08:26→20:46)
[2024-09-01] MEDS: APIXABAN 5 MG TABLET PO ×2 (08:30→20:46)
[2024-09-01] MEDS: Gabapentin 600 MG Tablet 1800 MG PO ×2 (08:32→20:45)
[2024-09-01 15:15] VITALS: TEMP 36.5
--- NOTE | 2024-09-01 17:13 | NURSING ---
Pt continues with redness to sclera in left eye. Denies pain, discomfort, pressure, vision changes, and/or drainage, PERRLA intact.
[2024-09-01] MEDS: Pravastatin 20 MG Tablet PO (20:45)
[2024-09-01] MEDS: traZODone 50 MG Tablet PO (20:46)
[2024-09-02] MEDS: Levothyroxine 125 MCG Tablet PO (05:59)
[2024-09-02 06:00] VITALS: BMI 38.5
[2024-09-02] MEDS: Multivitamins,Ther W-Minerals Tablet 1 TABLET PO (09:14)
[2024-09-02] MEDS: Gabapentin 600 MG Tablet 1800 MG PO ×2 (09:14→20:24)
[2024-09-02] MEDS: Tamsulosin HCl 0.4 MG Capsule PO (09:15)
[2024-09-02] MEDS: APIXABAN 5 MG TABLET PO ×2 (09:15→20:26)
[2024-09-02] MEDS: DULoxetine Hcl 30 MG Capsule PO (09:15)
[2024-09-02] MEDS: Multivitamin (Healthy Eyes) Capsule 1 CAP PO ×2 (09:15→20:25)
[2024-09-02] MEDS: Potassium Chloride Oral Tablet 20 MEQ PO (09:16)
[2024-09-02] MEDS: Clotrimazole 1 APPLIC Tube TOPICAL ×2 (09:16→20:25)
[2024-09-02] MEDS: Furosemide 40 MG Tablet PO (09:16)
[2024-09-02] MEDS: Finasteride 5 MG Tablet PO (09:17)
[2024-09-02] MEDS: Zinc Sulfate 50 mg zinc (220 mg) ORAL capsule PO (09:17)
[2024-09-02] MEDS: Lisinopril 2.5 MG Tablet PO (09:17)
[2024-09-02] MEDS: Cyanocobalamin 500 MCG Tablet 1000 MCG PO (09:17)
[2024-09-02] MEDS: Nystatin Powder 15gm Bottle 1 APPLIC TOPICAL ×2 (09:23→20:25)
[2024-09-02 13:48] VITALS: BP 103/50; PULSE 60; RESP 16; TEMP 36.2; O2SAT 92
--- NOTE | 2024-09-02 15:19 | CASEMGMT ---
Addendum entered by Sandra Arita 09/02/24 15:27: Addendum: SW and family also discussed pt participating in [employer]'s rehab program. Dtr initially inquired and pt agreeable to assessment. SW to fax referral. Original Note: Social Work SW had scheduled meeting with pt, and dtr at bedside. SW conversed with pt/family extensively. Answered all family/pt questions. educated to skilled HHC agencies, estimated SOC, frequency and duration. discussed safety in the home. Pt and expressed just wanting to be home and can't know if it will go well until they go home. Dtr expressed some concerns with homegoing with falls and safety, but agree with skilled HHC assistance in transition, to attempt at home. SW to order a administrator social welfare to assist with any further questions, needs, and ensure transition home is smooth. All in agreement. Discussed DC date. All in agreement to DC 09/04. Pt prefers to use [facility]. SW to place referral. Pt/family denied any DME needs. and CHRISTOPHER to transport pt home at 1100. Family/pt appreciative of experience in TCU and appreciative of this worker's assistance. - SW phoned referral to [facility]. Plan: DC home with 09/04, [facility] PT/OT/SN/SW Sandra Arita GRINDER MACHINE KNIFE SETTER RUG CUTTER
--- NOTE | 2024-09-02 19:19 | DS.PCM_ITS ---
Providers Date of Admission: 07/22/24 Primary Care Physician: Dr. Jose Maurice MD Consultations 07/26/24 17:27 Consult: Gastroenterology Routine Consulting Provider: [facility] Reason for Consult: Esophageal stricture. EMERGENT Consult: No MD Notified: Yes Date Notified: 07/26/24 Time Notified: 17:27 Method of Notification: Text Reason For Visit: [employer] VR LEADLESS PACEMAKER IMPLANT Diagnosis Discharge Diagnosis (1) Debility: Status: Acute Code(s): R53.81 - Other malaise (2) Sick sinus syndrome: Status: Chronic Code(s): I49.5 - Sick sinus syndrome (3) Status post cardiac pacemaker procedure: Status: Inactive Code(s): Z95.0 - Presence of cardiac pacemaker (4) Persistent atrial fibrillation: Status: Ruled-out Code(s): I48.19 - Other persistent atrial fibrillation (5) Mobitz (type) I (Wenckebach's) atrioventricular block: Status: Chronic Code(s): I44.1 - Atrioventricular block, second degree (6) Neuropathy: Status: Acute Code(s): G62.9 - Polyneuropathy, unspecified (7) Imbalance: Status: Acute Code(s): R26.89 - Other abnormalities of gait and mobility (8) Essential (primary) hypertension: Status: Acute Code(s): I10 - Essential (primary) hypertension (9) SVT (supraventricular tachycardia): Status: Acute Code(s): I47.10 - Supraventricular tachycardia, unspecified (10) Stroke: Status: Acute Code(s): I63.9 - Cerebral infarction, unspecified (11) Hyperlipidemia: Status: Acute Code(s): E78.5 - Hyperlipidemia, unspecified (12) BPH (benign prostatic hyperplasia): Status: Acute Code(s): N40.0 - Benign prostatic hyperplasia without lower urinary tract symptoms (13) Insomnia: Status: Acute Code(s): G47.00 - Insomnia, unspecified (14) Depression: Status: Acute Code(s): F32.A - Depression, unspecified (15) Hypokalemia: Status: Acute Code(s): E87.6 - Hypokalemia (16) Hypothyroidism: Status: Acute Code(s): E03.9 - Hypothyroidism, unspecified Plan 83 year old male with recent diagnosis of atrial fibrillation, second degree AV block Type 1, sick sinus syndrome, bradycardia, hospitalized for permanent pacemaker placement 07/19/[address] Boone, complicated by chronic neuropathy, imbalance, admitted to TCU with debility, here for rehabilitation, strengthening, prior to discharge home with . * Debility - PT/OT. * Pain - Tylenol 1000mg q6 prn pain (1-10). * Bowel - senna/colace 1 tablet bid prn, Magnesium citrate 300mL daily prn. * Adult immunization - Administer pneumonia vaccine, covid vaccine, flu vaccine as appropriate. * DVT prophylaxis - Eliquis. * Atrial fibrillation with bradycardia status post pacemaker placement - Eliquis 5mg bid. * Vitamin B12 deficiency - B12 1000mcg daily. * Neuropathy - Duloxetine 30mg daily, Gabapentin 1800mg q12. * BPH - Finasteride 5mg daily, Tamsulosin 0.4mg daily. * Chronic HFpEF - Lisinopril 2.5mg daily, Furosemide 40mg daily, monitor bmp. * Hypothyroidism - Levothyroxine 125mcg daily 5 days per week, 250mcg daily 2 days per week. * Macular degeneration - Healthy Eyes 1 capsule bid. * Nutrition - MVI 1 tablet daily. * Hypokalemia - KCL 20meq daily. * Hyperlipidemia - Pravastatin 20mg qhs. 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 * Zinc deficiency - Zinc 50mg daily. * Tinea Corporis - Clotrimazole topical bid, Nystatin powder topical bid. * Cough - Robitussin DM 10ml q6 prn. Medications at Discharge Home Medications pravastatin 20 mg tablet 20 mg PO QHS Cholesterol 05/09/15 tamsulosin 0.4 mg capsule 0.4 mg PO DAILY Urine retention 05/09/15 trazodone 50 mg tablet 50 mg PO QHS sleep 05/09/15 cyanocobalamin (vitamin B-12) 1,000 mcg tablet 1,000 mcg PO DAILY supplement 04/14/24 duloxetine 30 mg capsule,delayed release 30 mg PO DAILY . 04/14/24 finasteride 5 mg tablet 5 mg PO DAILY BPH 04/14/24 gabapentin 600 mg tablet 1,800 mg PO Q12H neuropathy 04/14/24 mphgmdsr-ww-dntfe 300 mcg-K 60 mcg-lycop 600 mcg-lutein 300 mcg tablet (Centrum Silver Men) 1 tab PO DAILY supplement 04/14/24 potassium chloride 20 mEq tablet,extended release(part/cryst) 20 meq PO DAILY supplement 04/14/24 vitamins A,C,J-fczg-wkbxua 2,148 mcg-113 mg-45 mg-17.4 mg tablet (Eye Multivitamin) 1 tab PO BID supplement 04/14/24 levothyroxine 125 mcg tablet 125 mcg PO MOTUWETHFR Thyroid 06/08/24 levothyroxine 200 mcg capsule 250 mcg PO SUSA Thyroid 06/08/24 zinc gluconate 50 mg tablet 50 mg PO DAILY supplement 06/08/24 lisinopril 2.5 mg tablet 2.5 mg PO DAILY BP 06/14/24 apixaban 5 mg tablet (Eliquis) 5 mg PO BID #0 tabs 09/02/24 furosemide 40 mg tablet 40 mg PO DAILY 30 days #30 tabs 09/02/24 Hospital Course Operations - (Pacemaker implantation.) Procedures EGD Summary of Care Provided Minutes Spent on Discharge: 35 Hospital Course: 83 year old male with recent diagnosis of atrial fibrillation, second degree AV block Type 1, sick sinus syndrome, bradycardia, hospitalized for permanent pacemaker placement 07/19/[address] Boone, complicated by chronic neuropathy, imbalance, admitted to TCU with debility, here for rehabilitation, strengthening, prior to discharge home with . 07/27/2024 Dr. Campoverde EGD: Impressions : - Abnormal esophageal motility, established achalasia. Injected with botulinum toxin. - Small hiatal hernia. - No gross lesions in the first portion of the duodenum. - No specimens collected. Discharge home with 09/04/2024, [facility] PT/OT/SN/SW. Physical Exam Const alert General Appearance: cooperative HEENT normocephalic Eyes PERRL and EOMs intact bilaterally Neck supple, no JVD and no carotid bruits Resp normal respiratory effort, normal air movement and clear to auscultation bilaterally Cardio regular rate and regular rhythm GI normal to inspection, nondistended, normoactive bowel sounds, non-tender and non-distended Extremity normal capillary refill General Extremity: Negative for edema Skin no rashes or lesions noted General Skin Exam: no breakdown Psych affect normal Appearance: appropriate Weight / BMI Weight Weight: 125.101 kg Body Mass Index (BMI) 38.5 ABG / Lab / Microbiology Data 08/31/24 10:05 08/31/24 10:05 Microbiology: Microbiology 08/11/24 Unknown Nasal Secretion SARS-CoV-2 Antigen (Rapid) - Final 08/04/24 05:33 Nasal Secretion SARS-CoV-2 Antigen (Rapid) - Final D/C Instructions Discharge Diet: No restrictions Discharge Activity: Return to Normal Activity, May Shower and Use Walker Weight Bearing Status: Weight bearing as tolerated Call your doctor if you observe: Fever of 101 or Higher, Inability to urinate, Inability to have a bowel movement, Shortness of breath, Dizziness, Fainting spells, Swelling in the ankles, Chest pain and Uncontrolled pain DC O2, CPAP, BIPAP Needs Home O2 Discharge instructions: No Additional Instructions: Discharge home with 09/04/2024, [facility] PT/OT/SN/SW. Please Follow Up With: Jana Virgen When: As scheduled. Meaningful Use Info Meaningful Use Meaningful Use Diagnoses (Choose all that apply): None applicable Ischemic Stroke Statin Dosing Therapy Reference: STATIN DOSE THERAPY REFERENCE: * Patients > 75 years receive moderate or high dose statin therapy. * Patients 75 years or YOUNGER should receive HIGH intensity statin dose unless contraindicated. You will be required to document reason for non-treatment if statin daily dose does not meet guidelines. HIGH DOSE STATIN THERAPY DAILY Atorvastatin > than or = to 40 mg Rosuvastatin > than or = to 20 mg Amlodipine + Atorvastatin > than or = to 2.5/40 mg Ezetimibe + Simvastatin 10/80 mg Simvastatin 80mg Discharge Plan Admission Admit Date/Time: 07/22/24 10:18 Primary Reason for Your Visit: Debility. Attending Provider: Simeon Gifford Chi Primary Care Provider: Jose Maurice Instructions Additional Instructions / Restrictions: Discharge home with 09/04/2024, [facility] PT/OT/SN/SW. Discharge Orders/Prescriptions Prescriptions: New furosemide 40 mg Tablet 40 mg PO DAILY 30 Days Qty: 30 0RF Eliquis 5 mg Tablet 5 mg PO BID Qty: 0 0RF Continued cyanocobalamin (vitamin B-12) 1,000 mcg tablet 1,000 mcg PO DAILY potassium chloride 20 mEq tablet,ER particles/crystals 20 meq PO DAILY finasteride 5 mg tablet 5 mg PO DAILY duloxetine 30 mg capsule,delayed release(DR/EC) 30 mg PO DAILY lisinopril 2.5 mg tablet 2.5 mg PO DAILY trazodone 50 MG tablet 50 mg PO QHS Patient Comments: sleep tamsulosin 0.4 MG capsule 0.4 mg PO DAILY Patient Comments: prostate pravastatin 20 MG tablet 20 mg PO QHS Patient Comments: cholesterol Eye Multivitamin 2,148 mcg-113 mg-45 mg-17.4mg tablet 1 tab PO BID Rx Instructions: administer with AM and PM meals Centrum Silver Men [phone] mcg tablet 1 tab PO DAILY gabapentin 600 mg tablet 1,800 mg PO Q12H levothyroxine 125 mcg tablet 125 mcg PO MOTUWETHFR levothyroxine 200 mcg capsule 250 mcg PO SUSA zinc gluconate 50 mg tablet 50 mg PO DAILY Discontinued Eliquis 5 mg tablet 5 mg PO BID Qty: 60 3RF furosemide 20 mg tablet 20 mg PO QODAY Referrals / Follow Up: Jana Virgen [Registered Nurse] - 08/30/24 1:30 pm (6 week port implant pacemaker check) Jose Maurice MD [Primary Care Provider] - 09/14/24 11:20 am Malika Montesinos PA [Med Staff - Adv Practice Prof] - 11/18/24 10:30 am Disposition Disposition (needs filled in before D/C Order can be placed): Home Health Service
[2024-09-02] MEDS: Ammonium Lactate 225 gm Bottle 1 APPLIC TOPICAL (20:24)
[2024-09-02] MEDS: Pravastatin 20 MG Tablet PO (20:26)
[2024-09-02] MEDS: traZODone 50 MG Tablet PO (20:26)
[2024-09-03] MEDS: Levothyroxine 125 MCG Tablet PO (05:51)
[2024-09-03 06:00] VITALS: BMI 38.5
[2024-09-03] MEDS: Gabapentin 600 MG Tablet 1800 MG PO ×2 (09:24→20:00)
[2024-09-03] MEDS: APIXABAN 5 MG TABLET PO ×2 (09:24→20:02)
[2024-09-03] MEDS: Multivitamins,Ther W-Minerals Tablet 1 TABLET PO (09:24)
[2024-09-03] MEDS: DULoxetine Hcl 30 MG Capsule PO (09:24)
[2024-09-03] MEDS: Cyanocobalamin 500 MCG Tablet 1000 MCG PO (09:25)
[2024-09-03] MEDS: Finasteride 5 MG Tablet PO (09:25)
[2024-09-03] MEDS: Potassium Chloride Oral Tablet 20 MEQ PO (09:25)
[2024-09-03] MEDS: Multivitamin (Healthy Eyes) Capsule 1 CAP PO ×2 (09:25→20:02)
[2024-09-03] MEDS: Tamsulosin HCl 0.4 MG Capsule PO (09:25)
[2024-09-03] MEDS: Clotrimazole 1 APPLIC Tube TOPICAL ×2 (09:26→20:00)
[2024-09-03] MEDS: Zinc Sulfate 50 mg zinc (220 mg) ORAL capsule PO (09:27)
[2024-09-03] MEDS: Lisinopril 2.5 MG Tablet PO (09:27)
[2024-09-03] MEDS: Furosemide 40 MG Tablet PO (09:27)
[2024-09-03] MEDS: Nystatin Powder 15gm Bottle 1 APPLIC TOPICAL ×2 (09:31→20:06)
--- NOTE | 2024-09-03 15:39 | CASEMGMT ---
BIMS () and PHQ2 (0) interviews completed on this date for MDS assessment. LUZ Le
[2024-09-03 15:44] VITALS: BP 114/55; PULSE 60; RESP 18; TEMP 36.7; O2SAT 95
[2024-09-03] MEDS: Ammonium Lactate 225 gm Bottle 1 APPLIC TOPICAL (20:00)
[2024-09-03] MEDS: traZODone 50 MG Tablet PO (20:02)
[2024-09-03] MEDS: Pravastatin 20 MG Tablet PO (20:03)
[2024-09-03 20:14] VITALS: PULSE 64; RESP 16
[2024-09-04] MEDS: Levothyroxine 100 MCG Tablet 250 MCG PO (05:41)
[2024-09-04 05:45] VITALS: PULSE 60; RESP 16; O2SAT 94
[2024-09-04 08:28] VITALS: BP 103/55; PULSE 64; RESP 17; TEMP 36.8; O2SAT 94
[2024-09-04] MEDS: Tamsulosin HCl 0.4 MG Capsule PO (08:31)
[2024-09-04] MEDS: DULoxetine Hcl 30 MG Capsule PO (08:31)
[2024-09-04] MEDS: APIXABAN 5 MG TABLET PO (08:31)
[2024-09-04] MEDS: Potassium Chloride Oral Tablet 20 MEQ PO (08:31)
[2024-09-04] MEDS: Multivitamin (Healthy Eyes) Capsule 1 CAP PO (08:31)
[2024-09-04] MEDS: Multivitamins,Ther W-Minerals Tablet 1 TABLET PO (08:31)
[2024-09-04] MEDS: Furosemide 40 MG Tablet PO (08:32)
[2024-09-04] MEDS: Nystatin Powder 15gm Bottle 1 APPLIC TOPICAL (08:32)
[2024-09-04] MEDS: Lisinopril 2.5 MG Tablet PO (08:33)
[2024-09-04] MEDS: Cyanocobalamin 500 MCG Tablet 1000 MCG PO (08:33)
[2024-09-04] MEDS: Ammonium Lactate 225 gm Bottle 1 APPLIC TOPICAL (08:33)
[2024-09-04] MEDS: Zinc Sulfate 50 mg zinc (220 mg) ORAL capsule PO (08:33)
[2024-09-04] MEDS: Finasteride 5 MG Tablet PO (08:33)
[2024-09-04] MEDS: Gabapentin 600 MG Tablet 1800 MG PO (09:38)
== END 2024-09-04 11:30 | disposition home health service (06) | DRG 315 ==
PROVIDERS: Admitting Provider Family Medicine Geriatric Medicine; PCP Family Medicine; Referring Provider Family Medicine Geriatric Medicine; Visit Provider Family Medicine Geriatric Medicine
DX: Z45.018 Encounter for adjustment and management of other part of cardiac pacemaker (principal); I47.10 Supraventricular tachycardia, unspecified; I48.19 Other persistent atrial fibrillation; I50.32 Chronic diastolic (congestive) heart failure; K22.0 Achalasia of cardia; I44.1 Atrioventricular block, second degree; R13.10 Dysphagia, unspecified; I11.0 Hypertensive heart disease with heart failure; B35.4 Tinea corporis; E03.9 Hypothyroidism, unspecified; G62.9 Polyneuropathy, unspecified; I49.5 Sick sinus syndrome; E53.8 Deficiency of other specified B group vitamins; E78.00 Pure hypercholesterolemia, unspecified; E87.6 Hypokalemia; H35.30 Unspecified macular degeneration; K44.9 Diaphragmatic hernia without obstruction or gangrene; M79.81 Nontraumatic hematoma of soft tissue; M79.89 Other specified soft tissue disorders; M11.261 Other chondrocalcinosis, right knee; Z95.0 Presence of cardiac pacemaker; N40.0 Benign prostatic hyperplasia without lower urinary tract symptoms; G47.00 Insomnia, unspecified; Z79.899 Other long term (current) drug therapy; Z79.890 Hormone replacement therapy; Z79.01 Long term (current) use of anticoagulants; R60.0 Localized edema; R26.89 Other abnormalities of gait and mobility
CPT/HCPCS: 36415; 73564; 80048; 80061; 84443; 84550; 85025; 87811; 92523; 92526; 92610; 97110; 97112; 97116; 97129; 97130; 97162; 97166; 97530; 97535; 97802; A4216

== ENCOUNTER 2024-07-27 14:37 | Day surgery (SDC) | payer MEDICARE, SELFPAY ==
[2024-07-27] VITALS (7 sets, daily range): BP systolic 116–141; BP diastolic 64–68; PULSE 60; RESP 16–20; TEMP 36.3–36.6; O2SAT 92–94; BMI 39.3
--- NOTE | 2024-07-27 14:48 | PCM.HP.STD ---
HPI - General General Date of Admission: 07/27/24 Date of Service: 07/27/24 Chief Complaint: dysphagia HPI Narrative JUAN MANUEL MASON, is a 83 M hx of dysphagia but it was well controlled for a time period. Pt underwent EGD with dilation 9.7. and this helped with his dysphagia for some time. A few months ago he started again with sensation of food in his esophagus and choking episodes. He was recently hospitalized for what was believed to be aspiration pneumonia. He denies abdominal pain, n/v, constipation, diarrhea or melena. He was supposed to undergo an EGD with esophageal dilation. However he was discovered to be in new onset atrial fibrillation/a flutter and the procedure was canceled. He also has a hx of a TIA and is on Plavix. He did have a 14-day event monitor in 2022 which did demonstrate 1 episode of second-degree AV block type I. He is not on any rate limiting medications. He was last seen by them in November 2023. Pt sts that he was told that he was just a hair away of needing a PPM. Patient presented to the emergency room on 06/09/2024 with new onset of atrial flutter. Patient was not symptomatic with his onset of atrial flutter. He was also documented as having heart rates into the 20s so it was decided to put a permanent pacemaker. He was sent to the transitional care unit due to some balance issues along with some neuropathy. I was consulted to see him regarding his esophageal PFSH Medical History Sick sinus syndrome Paroxysmal atrial fibrillation Persistent atrial fibrillation Mobitz (type) I (Wenckebach's) atrioventricular block Prostate disease Excessive bleeding Gastric reflux Neuropathy Wears glasses Cancer Thyroid disease Arthritis Hx of bladder cancer Bladder disease Restless legs Back pain Injury of head and neck Syncope Difficulty swallowing Non-smoker TIA (transient ischemic attack) History of pain when walking History of edema History of stress test Cardiology follow-up encounter Esophageal dysphagia High cholesterol Hypertension Home Medications ?Medication ?Instructions ?Recorded ?Last Taken ?Type pravastatin 20 mg tablet 20 mg PO QHS Cholesterol 05/09/15 Unknown History tamsulosin 0.4 mg capsule 0.4 mg PO DAILY Urine retention 05/09/15 Unknown History trazodone 50 mg tablet 50 mg PO QHS sleep 05/09/15 Unknown History cyanocobalamin (vitamin B-12) 1,000 mcg PO DAILY supplement 04/14/24 Unknown History 1,000 mcg tablet duloxetine 30 mg capsule,delayed 30 mg PO DAILY . 04/14/24 Unknown History release finasteride 5 mg tablet 5 mg PO DAILY BPH 04/14/24 Unknown History gabapentin 600 mg tablet 1,800 mg PO Q12H neuropathy 04/14/24 07/19/24 History qjdtputm-hj-mclhc 300 mcg-K 60 1 tab PO DAILY supplement 04/14/24 Unknown History mcg-lycop 600 mcg-lutein 300 mcg tablet (Centrum Silver Men) potassium chloride 20 mEq 20 meq PO DAILY supplement 04/14/24 Unknown History tablet,extended release(part/cryst) vitamins A,C,T-mzjg-kvlkyb 2,148 1 tab PO BID supplement 04/14/24 Unknown History mcg-113 mg-45 mg-17.4 mg tablet (Eye Multivitamin) furosemide 20 mg tablet 20 mg PO QODAY Fluid retention 06/08/24 Unknown History levothyroxine 125 mcg tablet 125 mcg PO MOTUWETHFR Thyroid 06/08/24 07/19/24 History levothyroxine 200 mcg capsule 250 mcg PO SUSA Thyroid 06/08/24 Unknown History zinc gluconate 50 mg tablet 50 mg PO DAILY supplement 06/08/24 Unknown History apixaban 5 mg tablet (Eliquis) 5 mg PO BID Blood thinner #60 tabs 06/14/24 Unknown Rx Held on 07/22/24. Instructions: Hold Eliquis until pacer check in office by cardiology lisinopril 2.5 mg tablet 2.5 mg PO DAILY BP 06/14/24 07/19/24 History Allergy/AdvReac Type Severity Reaction Status Date / Time oxybutynin (From Ditropan) Allergy Intermediate Nausea/Vom/ Verified 07/27/24 14:40 Diarrhea prednisone AdvReac Nausea Verified 07/27/24 14:40 Surgical History History of surgical removal of pilonidal cyst History of permanent cardiac pacemaker placement History of esophagogastroduodenoscopy (EGD) History of laparoscopic cholecystectomy Hx of colonoscopy Hx of repair of left rotator cuff Hx of repair of right rotator cuff Hx of microdiscectomy History of lumbar spinal fusion Social History household members: spouse Smoking Status: Never smoker alcohol intake: never substance use type: does not use ROS Constitutional Constitutional: Denies fatigue, fever(s), poor appetite, weight gain or weight loss Gastrointestinal Gastrointestinal: Denies belching, bloating, change in bowel habits, change in stool character, chewing difficulty, coffee ground emesis, constipation, cramping, diarrhea, dyspepsia, dysphagia, early satiety, excessive flatus, fecal incontinence, heartburn, hematemesis, hematochezia, hemorrhoids, loose stools, melena, nausea, odynophagia, rectal bleeding, tenesmus, vomiting or weight changes Physical Exam Const alert, oriented x3, no apparent distress and healthy appearing General Appearance: cooperative GI normal to inspection, nondistended, normoactive bowel sounds, soft to palpation, non-tender and non-distended Percussion: normal to percussion Rectal Exam: deferred Assessment & Plan Assessment/Plan (1) Difficulty swallowing: PLAN: (1) Disorder of esophagus: Plan: This is an 83 yo male withe hx of esophageal stenosis dilated in 2021. For a few months now he has had increasing issues with dysphagia. He has sensation of food in his esophagus and choking episodes every couple of weeks. He is not on PPI therapy. He will undergo EGD with dilation. I recommended PPI therapy. -EGD with dilation -Recommended PPI
--- NOTE | 2024-07-27 14:56 | SUR.PREOP ---
Spoke to Isabel at [facility] who states patient is not dependant on pacemaker and no interventions are needed.
--- NOTE | 2024-07-27 15:29 | PCM.PRE.AN2 ---
ASA Classification* ASA Classification ASA Classification: 3 Assessment & Plan Anesthesia* Anesthesia Assessment Anesthesia Assessment: Discussed sedation and/or anesthesia options, risks, benefits, and alternatives with patient/parents/legal guardian/POA. Questions invited. The patient/parents/legal guardian/POA seems to understand and agrees to proceed with anesthesia plan. Reviewed the physical assessment, medical history, allergy history and patient home medications list prior to surgery/procedure/anesthetic and documented any changes. Performed airway and anesthesia risk assessments. Anesthesia Type Anesthesia Type: MAC History Source History Obtained from:: Patient and Chart Anesthesia Focused Assessment* Temperature: 97.4 F Pulse Rate: 60 Blood Pressure: 116/68 Respiratory Rate: 18 Pulse Ox: 94 Oxygen Delivery Method: Room Air Airway Assessment Mouth opens: >3 cm Mallampati Score: III Teeth Condition: Chipped/Broken (Patient has chipped upper incisors.) Neck Range of motion (ROM): Limited ROM (Slight decreased extension) Focused Labs Anesthesia Preop lab: CBC WBC 8.9 K/mm3 (4.4-11.0) 07/23/24 05:07/23/24 RBC 4.89 M/mm3 (4.6-6.2) 07/23/24 05:07/23/24 Hgb 13.1 g/dL (13.0-16.5) 07/23/24 05:07/23/24 Hct 42.9 % (40-54) 07/23/24 05:29 07/23/24 Plt Count 164 K/mm3 (150-450) 07/23/24 05:07/23/24 CHEMISTRY Potassium 3.7 mmol/L (3.5-5.1) 07/23/24 05:29 07/23/24 Sodium 139 mmol/L (136-145) 07/23/24 05:07/23/24 BUN 23 mg/dL (7-18) H 07/23/24 05:07/23/24 Creatinine 1.04 mg/dL (0.70-1.30) 07/23/24 05:07/23/24 Glucose 121 mg/dL (74-106) H 07/23/24 05:29 07/23/24 TSH 7.780 uIU/mL (0.358-3.740) H 07/26/24 05:15 07/26/24 COAG PT 16.7 SECONDS (11.7-14.9) H 06/28/24 14:00 06/28/24 Pre-Assessment Diagnosis/Proposed Procedure Planned Operative Procedure(s): EGD Anesthesia History Anesthesia History - flake miller helper: Anesthesia History - flake miller helper Hx Hospitalization Yes: 03/2024 and 07/27/24 14:42 Any Problems With Anesthesia No 07/27/24 14:42 Cholinesterase deficiency No 07/27/24 14:42 You/Your Family Experience No 07/27/24 14:42 fever (hyperthermia) with Relationship Recent Exposure to Contagious No 07/27/24 14:56 Disease Does patient have nerve No 07/27/24 14:42 stimulator Patient instructed to have device shut off --Does patient have Pacemaker Yes 07/27/24 14:58 or ICD? When Was Last Pacemaker Check QUESTION #4 FULL TEXT: You/Your Family Experience fever (hyperthermia) with Anesthesia Last Oral Intake Last Oral intake: Last Oral Intake NPO since 00:00 07/27/24 14:58 Meds taken in AM with sips of water? Meds patient instructed to take am of surgery PONV PONV - flake miller helper: PONV - flake miller helper Female No 07/27/24 14:42 HX of Motion Sickness Yes 07/27/24 14:42 HX of N/V After Surgery No 07/27/24 14:42 Non-Smoker Yes 07/27/24 14:42 Duration of Surgery greater No 07/27/24 14:42 than 60 minutes Number of Risk Factors 2 07/27/24 14:42 PONV Score Moderate Risk 07/27/24 14:42 Height & Weight Height & Weight: Anesthesia: Height & Weight Height 5 ft 11 in 07/27/24 14:58 Weight: 127.913 kg 07/27/24 14:58 Body Mass Index (BMI) 39.3 07/27/24 14:58 Respiratory Assessment Respiratory Assessment - flake miller helper: Respiratory Tract Infection Hx - flake miller helper Hx Respiratory Tract Infection No 07/27/24 14:42 STOP Sleep Apnea STOP Sleep Apnea - flake miller helper: STOP Sleep Apnea - flake miller helper Hx Hypertension Yes 07/27/24 14:42 Hx Sleep Apnea No: pt states he was tested 07/27/24 14:42 but not able to tolerate the test CPAP No 07/27/24 14:42 BIPAP No 07/27/24 14:42 Do you snore loudly (louder No 07/27/24 14:42 than talking or can be heard Do you often feel tired/ No 07/27/24 14:42 fatigued/ sleepy during daytime? Has anyone observed you stop No 07/27/24 14:42 breathing during sleep? STOP Results Negative 07/27/24 14:42 QUESTION #5 FULL TEXT : Do you snore loudly (louder than talking or can be heard through closed doors)? Tobacco Use History Tobacco Use History - flake miller helper: Tobacco Use History - flake miller helper Tobacco Use Non-smoker 03/05/21 12:24 Smoking Status Never smoker 07/27/24 14:42 Hx Tobacco Use No 07/27/24 14:42 Years Smoking Packs Smoked per Day Smoking Cessation Date was within the last 15 years Hx Smoking Cessation Date Hx Smoking Cessation Counseling Hematologic Medial History Hematologic Hx - flake miller helper: Hematologic Medical Hx - medical territory manager Hx of Blood Transfusion No 07/27/24 14:42 Hx of Transfusion in last 3 No 07/27/24 14:42 Months Date of Last Transfusion (if within last 3 months) Ever experience any problems No 07/27/24 14:42 with transfusion(s)? Specify any problems Hx of Preganancy in last 3 N/A 07/27/24 14:42 Months Nurse Filling Out Transfusion MGRIFFITH 07/27/24 14:42 & Questions: Date: 07/27/24 07/27/24 14:42 Time: 14:45 07/27/24 14:42 Patient unable to answer at this time (ie. confused, unrespo /Reproduction History /Reproductive History - flake miller helper: /Reproductive Hx- flake miller helper Hx Now Gestational Age (in weeks): EDC: Hx Hx Para Hx Section SAB No 06/08/24 11:07 PFSH Medical History Easy bruising Shortness of breath on exertion History of irregular heartbeat History of pacemaker Sick sinus syndrome Paroxysmal atrial fibrillation Persistent atrial fibrillation Prostate disease Excessive bleeding Gastric reflux Neuropathy Mobitz (type) I (Wenckebach's) atrioventricular block Wears glasses Cancer Thyroid disease Arthritis Hx of bladder cancer Bladder disease Restless legs Back pain Injury of head and neck Syncope Difficulty swallowing Non-smoker TIA (transient ischemic attack) History of pain when walking History of edema History of stress test Cardiology follow-up encounter Esophageal dysphagia High cholesterol Hypertension Home Medications ?Medication ?Instructions ?Recorded ?Last Taken ?Type pravastatin 20 mg tablet 20 mg PO QHS Cholesterol 05/09/15 Unknown History tamsulosin 0.4 mg capsule 0.4 mg PO DAILY Urine retention 05/09/15 Unknown History trazodone 50 mg tablet 50 mg PO QHS sleep 05/09/15 Unknown History cyanocobalamin (vitamin B-12) 1,000 mcg PO DAILY supplement 04/14/24 Unknown History 1,000 mcg tablet duloxetine 30 mg capsule,delayed 30 mg PO DAILY . 04/14/24 Unknown History release finasteride 5 mg tablet 5 mg PO DAILY BPH 04/14/24 Unknown History gabapentin 600 mg tablet 1,800 mg PO Q12H neuropathy 04/14/24 07/19/24 History pssmdfij-ss-rozfo 300 mcg-K 60 1 tab PO DAILY supplement 04/14/24 Unknown History mcg-lycop 600 mcg-lutein 300 mcg tablet (Centrum Silver Men) potassium chloride 20 mEq 20 meq PO DAILY supplement 04/14/24 Unknown History tablet,extended release(part/cryst) vitamins A,C,F-gaia-txcuji 2,148 1 tab PO BID supplement 04/14/24 Unknown History mcg-113 mg-45 mg-17.4 mg tablet (Eye Multivitamin) furosemide 20 mg tablet 20 mg PO QODAY Fluid retention 06/08/24 Unknown History levothyroxine 125 mcg tablet 125 mcg PO MOTUWETHFR Thyroid 06/08/24 07/27/24 History levothyroxine 200 mcg capsule 250 mcg PO SUSA Thyroid 06/08/24 Unknown History zinc gluconate 50 mg tablet 50 mg PO DAILY supplement 06/08/24 Unknown History apixaban 5 mg tablet (Eliquis) 5 mg PO BID Blood thinner #60 tabs 06/14/24 Unknown Rx Held on 07/22/24. Instructions: Hold Eliquis until pacer check in office by cardiology lisinopril 2.5 mg tablet 2.5 mg PO DAILY BP 06/14/24 07/27/24 07:05 History Allergy/AdvReac Type Severity Reaction Status Date / Time oxybutynin (From Ditropan) Allergy Intermediate Nausea/Vom/ Verified 07/27/24 14:40 Diarrhea prednisone AdvReac Nausea Verified 07/27/24 14:40 Surgical History History of surgical removal of pilonidal cyst History of permanent cardiac pacemaker placement History of esophagogastroduodenoscopy (EGD) History of laparoscopic cholecystectomy Hx of colonoscopy Hx of repair of left rotator cuff Hx of repair of right rotator cuff Hx of microdiscectomy History of lumbar spinal fusion Social History household members: spouse Smoking Status: Never smoker alcohol intake: never substance use type: does not use Review of Systems (Anesthesia) ROS Narrative System reviewed and no additional complaints, except as documented.
[2024-07-27] MEDS: Botulinum Toxin A 100 Units Vial IJ (15:56)
[2024-07-27] MEDS: 0.9% Normal Saline (Pres. free 10 ML Vial (15:56)
--- NOTE | 2024-07-27 16:05 | PCM.POST.ANE ---
Anesthesia: Postop Eval I Current Vital Signs Temperature: 97.8 F Pulse Rate: 60 Blood Pressure: 141/65 Respiratory Rate: 20 Pulse Ox: 93 Assessment Airway patent: Yes Spontaneous unlabored respirations: Yes nausea: No Vomiting: No Anesthesia Complication: No Fluid Hydration Crystalloid volume administer (ml): 20 Total IV fluid infused: 20 Progress Note Anesthesia document: Postop Eval 1 completed: Yes
--- NOTE | 2024-07-27 16:06 | OP.EGD_ITS ---
Patient Name: Regan Arango Procedure Date: 07/27/2024 3:42 PM Date of : 1940 Age: 83 Procedure: Upper GI endoscopy Indications: Dysphagia Providers: Valente Campoverde DO Medicines: Monitored Anesthesia Care Patient Profile: This is an 83 year old male. Refer to note in patient chart for documentation of history and physical. Patient has symptoms of chronic dysphagia and dysphagia with both liquids and solids. His most recent EGD for dilation. Complications: No immediate complications. Procedure: Pre-Anesthesia Assessment: - Prior to the procedure, a History and Physical was performed, and patient medications and allergies were reviewed. The patient is competent. The risks and benefits of the procedure and the sedation options and risks were discussed with the patient. All questions were answered and informed consent was obtained. Patient identification and proposed procedure were verified by the physician in the pre-procedure area. Mental Status Examination: alert and oriented. Airway Examination: normal oropharyngeal airway and neck mobility. Respiratory Examination: clear to auscultation. CV Examination: normal. Prophylactic Antibiotics: The patient does not require prophylactic antibiotics. Prior Anticoagulants: The patient has taken no anticoagulant or antiplatelet agents except for NSAID medication. ASA Grade Assessment: II - A patient with mild systemic disease. After reviewing the risks and benefits, the patient was deemed in satisfactory condition to undergo the procedure. The anesthesia plan was to use monitored anesthesia care (MAC). Immediately prior to administration of medications, the patient was re-assessed for adequacy to receive sedatives. The heart rate, respiratory rate, oxygen saturations, blood pressure, adequacy of pulmonary ventilation, and response to care were monitored throughout the procedure. The physical status of the patient was re-assessed after the procedure. After obtaining informed consent, the endoscope was passed under direct vision. Throughout the procedure, the patient's blood pressure, pulse, and oxygen saturations were monitored continuously. The gastroscope was introduced through the mouth, and advanced to the second part of duodenum. The upper GI endoscopy was accomplished without difficulty. The patient tolerated the procedure well. Scope In: 3:51:10 PM Scope Out: 3:59:38 PM Total Procedure Duration Time 0 hours 8 minutes 28 seconds Findings: Abnormal motility was noted in the esophagus. The cricopharyngeus was abnormal. There are extra peristaltic waves in the esophageal body. The distal esophagus/lower esophageal sphincter is spastic, but gives up passage to the endoscope. Tertiary peristaltic waves are noted. Area was successfully injected with 100 units botulinum toxin. A small hiatal hernia was present. No gross lesions were noted in the first portion of the duodenum. Impression: - Abnormal esophageal motility, established achalasia. Injected with botulinum toxin. - Small hiatal hernia. - No gross lesions in the first portion of the duodenum. - No specimens collected. Recommendation: - Return patient to referring hospital for ongoing care. - Resume previous diet. - Continue present medications. Procedure Code(s): --- Professional --- 27617, Esophagogastroduodenoscopy, flexible, transoral; with directed submucosal injection(s), any substance CPT copyright 2021 [employer]. All rights reserved. The codes documented in this report are preliminary and upon reporting developer review may be revised to meet current compliance requirements. Valente Campoverde DO 07/27/2024 4:05:48 PM This report has been signed electronically. Number of Addenda: 0 Note Initiated On: 07/27/2024 3:42 PM
--- NOTE | 2024-07-27 16:06 | OP.CCLET_ITS ---
07/27/2024 Jose Maurice MD Re : Upper GI endoscopy procedure for Regan Arango Dear Dr. Maurice This procedure was performed on Saturday, July 27, 2024. My impressions and recommendations are as follows: Impressions : - Abnormal esophageal motility, established achalasia. Injected with botulinum toxin. - Small hiatal hernia. - No gross lesions in the first portion of the duodenum. - No specimens collected. Recommendations : - Return patient to referring hospital for ongoing care. - Resume previous diet. - Continue present medications. My findings are described in the full procedure note, which is enclosed. If I can be of further assistance, please feel free to contact me at . Sincerely, Valente Campoverde, 07/27/2024 4:05:48 PM This report has been signed electronically.
--- NOTE | 2024-07-27 16:11 | POSTOPAN2_ITS ---
Anesthesia Postop Eval I Sum Postop Eval Completion status Anesthesia document: Postop Eval 1 completed: Yes Anesthesia Postop Eval I Summary Anesthesia Postop Eval I Summary: Anesthesia Postop Eval I: Assessment Summary Airway patent Yes 07/27/24 16:05 [email or web address] Spontaneous unlabored Yes 07/27/24 16:05 [email or web address] respirations Mental status nausea No 07/27/24 16:05 [email or web address] Vomiting No 07/27/24 16:05 [email or web address] Anesthesia Postop Eval I: Fluid Summary Crystalloid volume administer 20 07/27/24 16:05 [email or web address] (ml) Colloids volume administered ( ml) Blood Product volume administered (ml) Total IV fluid infused 20 07/27/24 16:05 [email or web address] Anesthesia Postop Eval I: Summary Notes Anesthesia Complication No 07/27/24 16:05 [email or web address] Anesthesia Complication Comment: Post-operative progress note Anesthesia: Postop Eval II Evaluation Mental status: Awake Pain Level: 0 nausea: No Vomiting: No
--- NOTE | 2024-07-27 16:11 | PCM.POSTANE2 ---
Anesthesia Postop Eval I Sum Postop Eval Completion status Anesthesia document: Postop Eval 1 completed: Yes Anesthesia Postop Eval I Summary Anesthesia Postop Eval I Summary: Anesthesia Postop Eval I: Assessment Summary Airway patent Yes 07/27/24 16:05 [email or web address] Spontaneous unlabored Yes 07/27/24 16:05 [email or web address] respirations Mental status nausea No 07/27/24 16:05 [email or web address] [email or web address] Vomiting No 07/27/24 16:05 [email or web address] Anesthesia Postop Eval I: Fluid Summary Crystalloid volume administer 20 07/27/24 16:05 [email or web address] (ml) Colloids volume administered ( ml) Blood Product volume administered (ml) Total IV fluid infused 20 07/27/24 16:05 [email or web address] Anesthesia Postop Eval I: Summary Notes Anesthesia Complication No 07/27/24 16:05 [email or web address] Anesthesia Complication Comment: Post-operative progress note Anesthesia: Postop Eval II Evaluation Mental status: Awake Pain Level: 0 nausea: No Vomiting: No
== END 2024-07-27 16:35 | disposition home or self-care (01) ==
LOC: EN 14:38 → AC 14:39
PROVIDERS: PCP Family Medicine; Referring Provider Family Medicine; Visit Provider Internal Medicine Gastroenterology
PROC: 0DJ08ZZ Inspection of Upper Intestinal Tract, Via Natural or Artificial Opening Endoscopic (ICD-10-PCS; CPT 43235; principal; 2024-07-27 15:55)
DX: K22.0 Achalasia of cardia (principal); I48.0 Paroxysmal atrial fibrillation; K44.9 Diaphragmatic hernia without obstruction or gangrene; I10 Essential (primary) hypertension; E78.00 Pure hypercholesterolemia, unspecified; Z79.01 Long term (current) use of anticoagulants; Z79.02 Long term (current) use of antithrombotics/antiplatelets; Z79.899 Other long term (current) drug therapy; Z86.73 Personal history of transient ischemic attack (TIA), and cerebral infarction without residual deficits
CPT/HCPCS: 43236; A4216; J0585

== ENCOUNTER → 2024-07-28 | Outpatient (CLI) | payer MEDICARE, SELFPAY ==
--- NOTE | 2024-07-28 10:40 | VDLE_ITS ---
Reason For Study: RLE RIGHT GSV is normal. CFV is compressible, spontaneous, phasic, competent and demonstrates normal augmentation. FV is compressible, spontaneous, phasic, competent and demonstrates normal augmentation. POP V is compressible, spontaneous, phasic, competent and demonstrates normal augmentation. T/P Trunk is compressible. PTV is compressible. RT PerV is compressible. Non vascularized anechoic area noted within Rt Lateral Gastrocnemius muscle. Procedure This is a venous duplex using B-mode, color flow and spectral Doppler. Exam performed portable in patient room. The exam was diagnostic. A preliminary report was called and/or faxed to [facility]. VL/Venous Duplex US, Unilateral Interpretation Summary Deep veins of the right lower extremity are patent and compressible segmentally . There is no evidence of right lower extremity deep vein thrombosis. Valvular competence alexy ears intact within the proximal deep venous system on the right . The right great saphenous vein a ppears patent and compressible segmentally. A non-vascular, anechoic structure is noted in the ri ght lateral gastrocnemius muscle, measuring 4.01 cm x 1.00 cm. This may represent a hematom a or seroma. Clinical correlation is advised. Ordering Physician: Jose Maurice Referring Physician: Simeon Gifford Chi Performed By: Stanton Daigle RVT
== END | disposition home or self-care (01) ==
LOC: CVS 10:39
PROVIDERS: PCP Family Medicine; Referring Provider Family Medicine Geriatric Medicine; Visit Provider Family Medicine Geriatric Medicine
DX: R22.41 Localized swelling, mass and lump, right lower limb (principal)
CPT/HCPCS: 93971

== ENCOUNTER → 2024-08-17 | Outpatient (CLI) | payer MEDICARE, SELFPAY ==
--- NOTE | 2024-08-17 08:05 | VDLE_ITS ---
Reason For Study Reason For Study: Swelling RIGHT LEFT CFV is compressible, spontaneous, phasic, competent GSV is normal. and demonstrates normal augmentation. CFV is compressible, spontaneous, phasic, competent, Procedure and demonstrates normal augmentation. This is a venous duplex using B-mode, color flow and FV is compressible, spontaneous, phasic, competent spectral Doppler. and demonstrates normal augmentation. Exam performed portable in patient room. POP V is compressible, spontaneous, phasic, competent and demonstrates normal augmentation. T/P Trunk is compressible. PTV is compressible. LT PerV is compressible. VL/Venous Duplex US, Unilateral Interpretation Summary Deep veins of the left lower extremity are patent and compressible segmentally. There is no evidence of left lower extremity deep vein thrombosis. The left great saphenous vein appears patent an d compressible segmentally. Ordering Physician: Simeon Gifford Chi Referring Physician: Jose Maurice MD Performed By: Shannan Lanza RVT and Student
== END | disposition home or self-care (01) ==
LOC: CVS 08:04
PROVIDERS: PCP Family Medicine; Referring Provider Family Medicine Geriatric Medicine; Visit Provider Family Medicine Geriatric Medicine
DX: R22.42 Localized swelling, mass and lump, left lower limb (principal)
CPT/HCPCS: 93971

== ENCOUNTER → 2024-08-19 | Outpatient (CLI) | payer MEDICARE, SELFPAY ==
--- NOTE | 2024-08-19 08:41 | VDLE_ITS ---
Reason For Study Reason For Study: RLE Pain RIGHT LEFT GSV is normal. CFV is compressible, spontaneous, phasic, competent, CFV is compressible, spontaneous, phasic, competent and demonstrates normal augmentation. and demonstrates normal augmentation. FV is compressible, spontaneous, phasic, competent and demonstrates normal augmentation. POP V is compressible, spontaneous, phasic, competent and demonstrates normal augmentation. T/P Trunk is compressible. PTV is compressible. RT PerV is compressible. Non Vascularized anechoic area measuring 4.47cm x 1.40cm noted in Rt Pop Fossa. Procedure This is a venous duplex using B-mode, color flow and spectral Doppler. Exam performed portable in patient room. The exam was diagnostic. A preliminary report was called and/or faxed to TCU train controller. VL/Venous Duplex US, Unilateral Interpretation Summary Deep veins of the right lower extremity are patent and compressible segmentally . There is no evidence of right lower extremity deep vein thrombosis. The right great saphenous vein appears patent a nd compressible segmentally. Non Vascularized anechoic area measuring 4.47cm x 1.40cm noted in right poplite al fossa. Ordering Physician: Simeon Gifford Chi Referring Physician: Simeon Gifford Chi Performed By: Stanton Daigle RVT
== END | disposition home or self-care (01) ==
PROVIDERS: PCP Family Medicine; Referring Provider Family Medicine Geriatric Medicine; Visit Provider Family Medicine Geriatric Medicine
DX: M79.661 Pain in right lower leg (principal)
CPT/HCPCS: 93971

== ENCOUNTER → 2024-08-27 | Outpatient (CLI) | payer MEDICARE, SELFPAY ==
--- NOTE | 2024-06-08 16:35 | PAT.ANE_ITS ---
Pre-Assessment Diagnosis/Proposed Procedure Planned Operative Procedure(s): EGD Anesthesia History Anesthesia History - continuous improvement manager: Anesthesia History - continuous improvement manager Hx Hospitalization Yes: 03/2024 PNEUMONIA 06/08/24 11:07 Any Problems With Anesthesia No 06/08/24 11:07 Cholinesterase deficiency No 06/08/24 11:07 You/Your Family Experience No 06/08/24 11:07 fever (hyperthermia) with Relationship Recent Exposure to Contagious No 05/23/21 10:35 Disease Does patient have nerve No 06/08/24 11:07 stimulator Patient instructed to have device shut off --Does patient have Pacemaker or ICD? When Was Last Pacemaker Check QUESTION #4 FULL TEXT: You/Your Family Experience fever (hyperthermia) with Anesthesia Last Oral Intake Last Oral intake: Last Oral Intake NPO since Meds taken in AM with sips of water? Meds patient instructed to take am of surgery PONV PONV - continuous improvement manager: PONV - continuous improvement manager Female Yes 06/08/24 11:07 HX of Motion Sickness No 06/08/24 11:07 HX of N/V After Surgery No 06/08/24 11:07 Non-Smoker Yes 06/08/24 11:07 Duration of Surgery greater No 06/08/24 11:07 than 60 minutes Number of Risk Factors 2 06/08/24 11:07 PONV Score Moderate Risk 06/08/24 11:07 Height & Weight Height & Weight: Anesthesia: Height & Weight Height 5 ft 11.5 in 04/15/24 14:09 Respiratory Assessment Respiratory Assessment - continuous improvement manager: Respiratory Tract Infection Hx - continuous improvement manager Hx Respiratory Tract Infection No 06/08/24 11:07 STOP Sleep Apnea STOP Sleep Apnea - continuous improvement manager: STOP Sleep Apnea - continuous improvement manager Hx Hypertension Yes: CONTROLLED WITH MED 06/08/24 11:07 Hx Sleep Apnea No 06/08/24 11:07 CPAP No 06/08/24 11:07 BIPAP No 06/08/24 11:07 Do you snore loudly (louder No 06/08/24 11:07 than talking or can be heard Do you often feel tired/ No 06/08/24 11:07 fatigued/ sleepy during daytime? Has anyone observed you stop No 06/08/24 11:07 breathing during sleep? STOP Results Negative 06/08/24 11:07 QUESTION #5 FULL TEXT : Do you snore loudly (louder than talking or can be heard through closed doors)? 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 Specify any problems Hx of Preganancy in last 3 N/A 06/08/24 11:07 Months Nurse Filling Out Transfusion VCHRISTIN 06/08/24 11:07 & Questions: Date: 06/08/24 06/08/24 11:07 Time: 11:08 06/08/24 11:07 Patient unable to answer at this time (ie. confused, unrespo /Reproduction History /Reproductive History - continuous improvement manager: /Reproductive Hx- continuous improvement manager Hx Now No 06/08/24 11:07 Gestational Age (in weeks): EDC: Hx Hx Para Hx Section SAB No 06/08/24 11:07 PFSH Medical History (Updated 06/08/24 @ 11:06 by Vy Gorman) Prostate disease Excessive bleeding Gastric reflux Neuropathy Shortness of breath on exertion Mobitz (type) I (Wenckebach's) atrioventricular block Wears glasses Cancer Thyroid disease Arthritis Hx of bladder cancer Bladder disease Easy bruising Restless legs Back pain Injury of head and neck Syncope Difficulty swallowing Non-smoker TIA (transient ischemic attack) History of pain when walking History of edema History of stress test Cardiology follow-up encounter Esophageal dysphagia High cholesterol Hypertension Home Medications ?Medication ?Instructions ?Recorded ?Last Taken ?Type lisinopril 5 mg tablet 2.5 mg PO DAILY 05/09/15 Unknown History pravastatin 20 mg tablet 20 mg PO QHS 05/09/15 Unknown History tamsulosin 0.4 mg capsule 0.4 mg PO DAILY 05/09/15 Unknown History trazodone 50 mg tablet 50 mg PO QHS 05/09/15 Unknown History clopidogrel 75 mg tablet 75 mg PO DAILY 04/14/24 Unknown History cyanocobalamin (vitamin B-12) 1,000 mcg PO DAILY 04/14/24 Unknown History 1,000 mcg tablet duloxetine 30 mg capsule,delayed 30 mg PO DAILY . 04/14/24 Unknown History release finasteride 5 mg tablet 5 mg PO DAILY 04/14/24 Unknown History gabapentin 600 mg tablet 1,200 mg PO TID neuropathy 04/14/24 Unknown History lsysgbbd-zc-pehsu 300 mcg-K 60 1 tab PO DAILY 04/14/24 Unknown History mcg-lycop 600 mcg-lutein 300 mcg tablet (Centrum Silver Men) potassium chloride 20 mEq 20 meq PO DAILY 04/14/24 Unknown History tablet,extended release(part/cryst) vitamins A,C,T-cjte-hhejlr 2,148 1 tab PO BID supplement 04/14/24 Unknown History mcg-113 mg-45 mg-17.4 mg tablet (Eye Multivitamin) furosemide 20 mg tablet 20 mg PO QODAY 06/08/24 Unknown History levothyroxine 125 mcg tablet 125 mcg PO MOTUWETHFR 06/08/24 Unknown History levothyroxine 200 mcg capsule 250 mcg PO SUSA 06/08/24 Unknown History zinc gluconate 50 mg tablet 50 mg PO DAILY 06/08/24 Unknown History Allergy/AdvReac Type Severity Reaction Status Date / Time oxybutynin (From Ditropan) Allergy Intermediate Nausea/Vom/ Verified 06/08/24 10:39 Diarrhea prednisone AdvReac Nausea Verified 06/08/24 10:37 Surgical History (Updated 06/08/24 @ 11:06 by Vy Gorman) History of esophagogastroduodenoscopy (EGD) History of laparoscopic cholecystectomy Hx of colonoscopy Hx of repair of left rotator cuff Hx of repair of right rotator cuff Hx of microdiscectomy History of lumbar spinal fusion Social History Smoking Status: Never smoker alcohol intake: never substance use type: does not use Audit: Pertinent Findings Pertinent Findings EKG Perinent findings: April 14, 2024. A-V dissociation. Septal infarct. Inferior infarct. Stress test pertinent findings: July 09, 2018. Marked sinus bradycardia with first-degree AV block. Negative for ischemia and infarct. Ejection fraction 63%. Echo (EF%) pertinent findings: December 25, 2021. Ejection fraction 65%. Valves are structurally normal. Visualized aorta is borderline dilated at 4.0 cm Consult pertinent findings: December 01, 2023. Dr. Jose. #1 supraventricular tachycardia. Stable occasional runs of SVT are controlled well. 2 essential hypertension is controlled. Recommendation Anesthesia Recommendation Anesthesia recommendation: F/U recommended (Twelve-lead EKG on arrival to surgery)
--- NOTE | 2024-06-09 08:46 | PAT.ANESEVAL ---
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 When Was Last Pacemaker Check QUESTION #4 FULL TEXT: You/Your Family Experience fever (hyperthermia) with Anesthesia Last Oral Intake Last Oral intake: Last Oral Intake NPO since Meds taken in AM with sips of water? Meds patient instructed to take am of surgery PONV PONV - infantry weapons officer: PONV - infantry weapons officer Female Yes 06/08/24 11:07 HX of Motion Sickness No 06/08/24 11:07 HX of N/V After Surgery No 06/08/24 11:07 Non-Smoker Yes 06/08/24 11:07 Duration of Surgery greater No 06/08/24 11:07 than 60 minutes Number of Risk Factors 2 06/08/24 11:07 PONV Score Moderate Risk 06/08/24 11:07 Height & Weight Height & Weight: Anesthesia: Height & Weight Height 5 ft 11.5 in 04/15/24 14:09 Respiratory Assessment Respiratory Assessment - infantry weapons officer: Respiratory Tract Infection Hx - infantry weapons officer Hx Respiratory Tract Infection No 06/08/24 11:07 STOP Sleep Apnea STOP Sleep Apnea - infantry weapons officer: STOP Sleep Apnea - infantry weapons officer Hx Hypertension Yes: CONTROLLED WITH MED 06/08/24 11:07 Hx Sleep Apnea No 06/08/24 11:07 CPAP No 06/08/24 11:07 BIPAP No 06/08/24 11:07 Do you snore loudly (louder No 06/08/24 11:07 than talking or can be heard Do you often feel tired/ No 06/08/24 11:07 fatigued/ sleepy during daytime? Has anyone observed you stop No 06/08/24 11:07 breathing during sleep? STOP Results Negative 06/08/24 11:07 QUESTION #5 FULL TEXT : Do you snore loudly (louder than talking or can be heard through closed doors)? 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 weapons officer: Tobacco Use History - infantry weapons officer Tobacco Use Non-smoker 03/05/21 12:24 Smoking Status Never smoker 06/08/24 11:07 Hx Tobacco Use No 06/08/24 11:07 Years Smoking Packs Smoked per Day Smoking Cessation Date was within the last 15 years Hx Smoking Cessation Date Hx Smoking Cessation Counseling Hematologic Medial History Hematologic Hx - infantry weapons officer: Hematologic Medical Hx - comfort advisor Hx of Blood Transfusion No 06/08/24 11:07 Hx of Transfusion in last 3 No 06/08/24 11:07 Months Date of Last Transfusion (if within last 3 months) Ever experience any problems No 06/08/24 11:07 with transfusion(s)? Specify any problems Hx of Preganancy in last 3 N/A 06/08/24 11:07 Months Nurse Filling Out Transfusion VCHRISTIN 06/08/24 11:07 & Questions: Date: 06/08/24 06/08/24 11:07 Time: 11:08 06/08/24 11:07 Patient unable to answer at this time (ie. confused, unrespo /Reproduction History /Reproductive History - infantry weapons officer: /Reproductive Hx- infantry weapons officer Hx Now No 06/08/24 11:07 Gestational Age (in weeks): EDC: Hx Hx Para Hx Section SAB No 06/08/24 11:07 PFSH Medical History (Updated 06/08/24 @ 11:06 by Vy Gorman) Prostate disease Excessive bleeding Gastric reflux Neuropathy Shortness of breath on exertion Mobitz (type) I (Wenckebach's) atrioventricular block Wears glasses Cancer Thyroid disease Arthritis Hx of bladder cancer Bladder disease Easy bruising Restless legs Back pain Injury of head and neck Syncope Difficulty swallowing Non-smoker TIA (transient ischemic attack) History of pain when walking History of edema History of stress test Cardiology follow-up encounter Esophageal dysphagia High cholesterol Hypertension Home Medications ?Medication ?Instructions ?Recorded ?Last Taken ?Type lisinopril 5 mg tablet 2.5 mg PO DAILY 05/09/15 Unknown History pravastatin 20 mg tablet 20 mg PO QHS 05/09/15 Unknown History tamsulosin 0.4 mg capsule 0.4 mg PO DAILY 05/09/15 Unknown History trazodone 50 mg tablet 50 mg PO QHS 05/09/15 Unknown History clopidogrel 75 mg tablet 75 mg PO DAILY 04/14/24 Unknown History cyanocobalamin (vitamin B-12) 1,000 mcg PO DAILY 04/14/24 Unknown History 1,000 mcg tablet duloxetine 30 mg capsule,delayed 30 mg PO DAILY . 04/14/24 Unknown History release finasteride 5 mg tablet 5 mg PO DAILY 04/14/24 Unknown History gabapentin 600 mg tablet 1,200 mg PO TID neuropathy 04/14/24 Unknown History ijdrkwvu-av-khvcc 300 mcg-K 60 1 tab PO DAILY 04/14/24 Unknown History mcg-lycop 600 mcg-lutein 300 mcg tablet (Centrum Silver Men) potassium chloride 20 mEq 20 meq PO DAILY 04/14/24 Unknown History tablet,extended release(part/cryst) vitamins A,C,X-cfmo-elllje 2,148 1 tab PO BID supplement 04/14/24 Unknown History mcg-113 mg-45 mg-17.4 mg tablet (Eye Multivitamin) furosemide 20 mg tablet 20 mg PO QODAY 06/08/24 Unknown History levothyroxine 125 mcg tablet 125 mcg PO MOTUWETHFR 06/08/24 Unknown History levothyroxine 200 mcg capsule 250 mcg PO SUSA 06/08/24 Unknown History zinc gluconate 50 mg tablet 50 mg PO DAILY 06/08/24 Unknown History Allergy/AdvReac Type Severity Reaction Status Date / Time oxybutynin (From Ditropan) Allergy Intermediate Nausea/Vom/ Verified 06/08/24 10:39 Diarrhea prednisone AdvReac Nausea Verified 06/08/24 10:37 Surgical History (Updated 06/08/24 @ 11:06 by Vy Gorman) History of esophagogastroduodenoscopy (EGD) History of laparoscopic cholecystectomy Hx of colonoscopy Hx of repair of left rotator cuff Hx of repair of right rotator cuff Hx of microdiscectomy History of lumbar spinal fusion Social History Smoking Status: Never smoker alcohol intake: never substance use type: does not use Audit: Pertinent Findings HISTORY of Pertinent Findings History of Pertinent Findings: EKG Pertinent Findings EKG Perinent findings April 14, 2024. A-V 06/08/24 16:43 dissociation. Septal infarct. Inferior infarct. Stress Test Pertinent Findings Stress test pertinent findings July 09, 2018. Marked 06/08/24 16:57 sinus bradycardia with first -degree AV block. Negative for ischemia and infarct. Ejection fraction 63%. Echo Pertinent Findings Echo (EF%) pertinent findings December 25, 2021. Ejection 06/08/24 16:54 fraction 65%. Valves are structurally normal. Visualized aorta is borderline dilated at 4.0 cm Consult Pertinent Findings Consult pertinent findings December 01, 2023. Dr. Jose. 06/08/24 16:54 #1 supraventricular tachycardia. Stable occasional runs of SVT are controlled well. 2 essential hypertension is controlled. Recommendation Anesthesia Recommendation Anesthesia recommendation: OPTIMIZED for anesthesia
--- NOTE | 2024-06-09 09:06 | PCM.HP.STD ---
HPI - General General Date of Admission: 06/09/24 Date of Service: 06/09/24 Chief Complaint: Dysphagia HPI Narrative JUAN MANUEL MASON, is a 83 M who presents to the office today for f/u. Pt has a hx of dysphagia but it was well controlled for a time period. Pt underwent EGD with dilation 9.01.11 and this helped with his dysphagia for some time. A few months ago he started again with sensation of food in his esophagus and choking episodes. He was recently hospitalized for what was believed to be aspiration pneumonia. He denies abdominal pain, n/v, constipation, diarrhea or melena. [facility] Medical History (Updated 06/09/24 @ 09:[address] Victor Friend, DO) Prostate disease Excessive bleeding Gastric reflux Neuropathy Shortness of breath on exertion Mobitz (type) I (Wenckebach's) atrioventricular block Wears glasses Cancer Thyroid disease Arthritis Hx of bladder cancer Bladder disease Easy bruising Restless legs Back pain Injury of head and neck Syncope Difficulty swallowing Non-smoker TIA (transient ischemic attack) History of pain when walking History of edema History of stress test Cardiology follow-up encounter Esophageal dysphagia High cholesterol Hypertension Home Medications ?Medication ?Instructions ?Recorded ?Last Taken ?Type lisinopril 5 mg tablet 2.5 mg PO DAILY 05/09/15 Unknown History pravastatin 20 mg tablet 20 mg PO QHS 05/09/15 Unknown History tamsulosin 0.4 mg capsule 0.4 mg PO DAILY 05/09/15 Unknown History trazodone 50 mg tablet 50 mg PO QHS 05/09/15 Unknown History clopidogrel 75 mg tablet 75 mg PO DAILY 04/14/24 Unknown History cyanocobalamin (vitamin B-12) 1,000 mcg PO DAILY 04/14/24 Unknown History 1,000 mcg tablet duloxetine 30 mg capsule,delayed 30 mg PO DAILY . 04/14/24 Unknown History release finasteride 5 mg tablet 5 mg PO DAILY 04/14/24 Unknown History gabapentin 600 mg tablet 1,200 mg PO TID neuropathy 04/14/24 Unknown History rknczuhc-aw-xlmff 300 mcg-K 60 1 tab PO DAILY 04/14/24 Unknown History mcg-lycop 600 mcg-lutein 300 mcg tablet (Centrum Silver Men) potassium chloride 20 mEq 20 meq PO DAILY 04/14/24 Unknown History tablet,extended release(part/cryst) vitamins A,C,W-yoth-rxnuqf 2,148 1 tab PO BID supplement 04/14/24 Unknown History mcg-113 mg-45 mg-17.4 mg tablet (Eye Multivitamin) furosemide 20 mg tablet 20 mg PO QODAY 06/08/24 Unknown History levothyroxine 125 mcg tablet 125 mcg PO MOTUWETHFR 06/08/24 Unknown History levothyroxine 200 mcg capsule 250 mcg PO SUSA 06/08/24 Unknown History zinc gluconate 50 mg tablet 50 mg PO DAILY 06/08/24 Unknown History Allergy/AdvReac Type Severity Reaction Status Date / Time oxybutynin (From Ditropan) Allergy Intermediate Nausea/Vom/ Verified 06/08/24 10:39 Diarrhea prednisone AdvReac Nausea Verified 06/08/24 10:37 Surgical History History of esophagogastroduodenoscopy (EGD) History of laparoscopic cholecystectomy Hx of colonoscopy Hx of repair of left rotator cuff Hx of repair of right rotator cuff Hx of microdiscectomy History of lumbar spinal fusion Social History Smoking Status: Never smoker alcohol intake: never substance use type: does not use Physical Exam Const alert and no apparent distress HEENT head/scalp atraumatic and moist oral mucous membranes Resp normal respiratory effort, no retractions, no use of accessory muscles and clear to auscultation bilaterally Cardio regular rate, regular rhythm, S1 normal heart sound and S2 normal heart sound GI normal to inspection, nondistended, normoactive bowel sounds, soft to palpation and non-tender Extremity normal to inspection Assessment & Plan Assessment/Plan (1) Difficulty swallowing: PLAN: Assessment and Plan Assessment and Plan (1) Disorder of esophagus: Plan: This is an 83 yo male withe hx of esophageal stenosis dilated in 2021. For a few months now he has had increasing issues with dysphagia. He has sensation of food in his esophagus and choking episodes every couple of weeks. He is not on PPI therapy. He will undergo EGD with dilation. I recommended PPI therapy. -EGD with dilation -Recommended PPI
[2024-06-09 09:15] VITALS: BP 148/73; PULSE 54; RESP 18; TEMP 36.8; O2SAT 94; BMI 39.9
== END | disposition home or self-care (01) ==
LOC: EN 06-09 08:55 → PAT 13:06
PROVIDERS: PCP Family Medicine; Referring Provider Family Medicine; Visit Provider Internal Medicine Gastroenterology
DX: Z01.810 Encounter for preprocedural cardiovascular examination (principal)
CPT/HCPCS: 93005; A4216; J2405

== ENCOUNTER 2024-10-27 09:38 | Emergency (ER) | payer MEDICARE, SELFPAY ==
[2024-10-27] VITALS (7 sets, daily range): BP systolic 129–137; BP diastolic 57–98; PULSE 58–94; RESP 17–19; TEMP 36.3–37.4; O2SAT 92–96; BMI 40.4
--- NOTE | 2024-10-27 10:34 | RAD_ITS ---
PROCEDURE: CHEST PA AND LATERAL, 10/27/2024 REASON FOR EXAM: SOB TECHNIQUE: PA and lateral views of the chest were obtained. COMPARISON: 07/20/2024 FINDINGS: Heart: Similar LEFT chest wall dual lead pacer. Borderline mild cardiomegaly. Mediastinum: Similar contours including widening of the RIGHT paratracheal stripe, potentially relating to vascular prominence. Mild central vascular prominence. Lungs/pleura: No focal consolidation. No pleural effusion or visible pneumothorax. Bones: Demineralization. Multilevel spondylosis. Suspect diffuse idiopathic skeletal hyperostosis.. Lines and support devices: None. Other: Suspect mild dilatation of the transverse colon to 5.6 cm.. RAD/Chest PA and Lateral IMPRESSION: 1. Borderline mild cardiomegaly and central vascular prominence without overt p ulmonary edema. 2. Suspect mild dilatation of the transverse colon. Correlate with bowel funct ion and consider dedicated imaging as indicated. 3. Additional description as above. Reading Location: [id number]
[2024-10-27] MEDS: Ipratropium/Albuterol Sulfate 3 ML AMPUL.NEB INHALATION (10:44)
--- NOTE | 2024-10-27 10:45 | ED.VIS.DYS ---
HPI History of Present Illness Chief Complaint: Shortness of Breath Informant: patient and spouse/S.O. Narrative Narrative: Patient is an 83-year-old male with history of chronic atrial flutter on anticoagulation with Eliquis, hypertension, hyperlipidemia, BPH and hypothyroidism as well as neuropathy presenting for shortness of breath. Patient states he has had increased shortness of breath, dyspnea on exertion and wheezing for the past 2 days. He notes his cough is productive of some white-yellow sputum. He denies associated chest pain or fevers. He states today he just felt like he was having a hard time breathing which is what prompted him to come to the emergency room. He does note lately he has had lower blood pressures and his PCP took him off of his lisinopril on Friday. He did have a chest x-ray which reportedly was clear. He went to urgent care yesterday for his symptoms and was given albuterol inhaler. He does not feel that it was overly helpful. He denies any associated nausea or vomiting. He denies any pain. He denies any URI symptoms. He notes he has chronic leg edema worse on the left but denies any acute change in this. Came in for further evaluation to see why he is feeling this way with his breathing. Does not wear home O2. No other complaints or concerns at this time. Does note that he was admitted for pneumonia in March 2024. [facility] Medical History Easy bruising Shortness of breath on exertion History of irregular heartbeat History of pacemaker Sick sinus syndrome Bradycardia Paroxysmal atrial fibrillation Persistent atrial fibrillation Prostate disease Excessive bleeding Gastric reflux Neuropathy Mobitz (type) I (Wenckebach's) atrioventricular block Wears glasses Cancer Thyroid disease Arthritis Hx of bladder cancer Bladder disease Restless legs Back pain Injury of head and neck Syncope Difficulty swallowing Non-smoker TIA (transient ischemic attack) History of pain when walking History of edema History of stress test Cardiology follow-up encounter Esophageal dysphagia High cholesterol Hypertension Home Medications ?Medication ?Instructions ?Recorded ?Last Taken ?Type pravastatin 20 mg tablet 20 mg PO DAILY Cholesterol 05/09/15 10/26/24 History tamsulosin 0.4 mg capsule 0.4 mg PO DAILY Urine retention 05/09/15 10/26/24 History trazodone 50 mg tablet 50 mg PO QHS sleep 05/09/15 10/26/24 History cyanocobalamin (vitamin B-12) 1,000 mcg PO DAILY supplement 04/14/24 10/26/24 History 1,000 mcg tablet duloxetine 30 mg capsule,delayed 30 mg PO DAILY . 04/14/24 10/26/24 History release finasteride 5 mg tablet 5 mg PO DAILY BPH 04/14/24 10/26/24 History gabapentin 600 mg tablet 1,800 mg PO Q12H neuropathy 04/14/24 10/26/24 History gzynmrti-cq-ukrkj 300 mcg-K 60 1 tab PO DAILY supplement 04/14/24 10/26/24 History mcg-lycop 600 mcg-lutein 300 mcg tablet (Centrum Silver Men) potassium chloride 20 mEq 20 meq PO DAILY supplement 04/14/24 10/26/24 History tablet,extended release(part/cryst) vitamins A,C,J-sjnu-ynfbht 2,148 1 tab PO BID supplement 04/14/24 10/26/24 History mcg-113 mg-45 mg-17.4 mg tablet (Eye Multivitamin) zinc gluconate 50 mg tablet 50 mg PO DAILY supplement 06/08/24 10/26/24 History lisinopril 2.5 mg tablet 2.5 mg PO DAILY BP 06/14/24 10/25/24 History Held on 10/27/24. Instructions: Ordered apixaban 5 mg tablet (Eliquis) 5 mg PO BID #60 tabs 09/07/24 10/26/24 Rx albuterol sulfate 90 mcg/actuation 2 inh inhalation Q4H PRN shortness 10/27/24 10/27/24 History aerosol inhaler of breath or wheezing amoxicillin 875 mg-potassium 1 tab PO BID #14 tabs 10/27/24 Unknown Rx clavulanate 125 mg tablet benzonatate 200 mg capsule 200 mg PO TID PRN cough #20 caps 10/27/24 Unknown Rx levothyroxine 175 mcg tablet 175 mcg PO DAILY 10/27/24 10/26/24 History omeprazole 20 mg capsule,delayed 20 mg PO DAILY 10/27/24 10/26/24 History release Allergy/AdvReac Type Severity Reaction Status Date / Time oxybutynin (From Ditropan) Allergy Intermediate Nausea/Vom/ Verified 10/27/24 09:39 Diarrhea prednisone AdvReac Nausea Verified 10/27/24 09:39 Surgical History History of surgical removal of pilonidal cyst History of permanent cardiac pacemaker placement Status post cardiac pacemaker procedure History of esophagogastroduodenoscopy (EGD) History of laparoscopic cholecystectomy Hx of colonoscopy Hx of repair of left rotator cuff Hx of repair of right rotator cuff Hx of microdiscectomy History of lumbar spinal fusion Social History household members: spouse Smoking Status: Never smoker alcohol intake: never substance use type: does not use ROS ROS ED Constitutional Constitutional ED: Denies chills or fever(s) ENT ENT ED: Denies rhinorrhea or sore throat Cardiovascular Cardiovascular: Denies chest pain or palpitations Respiratory/Chest Respiratory/Chest: Reports cough, dyspnea, dyspnea on exertion and sputum Gastrointestinal Gastrointestinal: Denies abdominal pain, diarrhea, melena, nausea or vomiting Genitourinary Genitourinary ED: Denies dysuria or urinary frequency Musculoskeletal Musculoskeletal: Denies arthralgias or myalgias Integumentary Denies rash Neurologic Neurologic: Reports weakness; Denies paresthesias Hematologic/Lymphatic Hematologic/Lymphatic: Reports easy bleeding and easy bruising EXAM Physical Exam Const Vital Signs: 10/27/24 09:39 10/27/24 10:18 10/27/24 10:49 Temperature 99 F Temperature Source Oral Pulse Rate 58 L 94 Respiratory Rate 19 H 17 Respiratory Effort Normal Non-Labored Respiratory Pattern Normal Blood Pressure 130/60 H Blood Pressure Mean 83 Pulse Ox 92 Oxygen Delivery Method Room Air 10/27/24 11:41 10/27/24 12:23 10/27/24 13:32 Temperature 99 F 99.4 F H 99.4 F H Temperature Source Oral Oral Pulse Rate 60 63 63 Respiratory Rate 18 18 18 Respiratory Effort Respiratory Pattern Blood Pressure 129/70 H 137/57 H 137/57 H Blood Pressure Mean 89 83 83 Pulse Ox 93 95 95 Oxygen Delivery Method Room Air Room Air Positive well nourished and well developed General Appearance ED: well developed and NAD; Negative for pallor HEENT Reports TM's clear and moist mucous membranes HEENT Narrative: Normal oropharynx. Normal nares. Tympanic Membrane ED: Yes TM's clear Eyes PERRL Neck supple and no JVD Resp Resp Narrative: Normal work of breathing. Does have coarse breath sounds throughout with scattered and expiratory wheezing. No crackles appreciated. Cardio regular rate, regular rhythm and no murmurs GI non-tender and non-distended Auscultation: normoactive bowel sounds Palpation: soft Extremity Extremity Narrative: 1+ pitting edema of the right lower extremity, 2+ pedal edema to the left. Compartments are soft. Pain edema goes up to approximately mid tibial area Neuro oriented x3 Neuro Narrative: No focal deficits appreciated Sensorium / Orientation: alert Motor Exam: general weakness Psych mental status grossly normal Skin no wounds General Skin Exam: Negative for jaundice or pallor MDM MDM MDM Narrative Medical decision making narrative: Patient evaluated for sensation of wheezing as well as cough and shortness of breath. Denies any associated chest pain. 70 significant pulmonary history he does have a history of hypertension however recently his blood pressures of actually been low. Differential includes ACS, pleural effusion, pneumonia, viral syndrome/bronchitis. Given these chronically anticoagulated low suspicion for PE as the cause of his symptoms. Patient is nontoxic-appearing. Is not requiring supplemental oxygen in the emergency room. Chest x-ray viewed by myself as well as radiology does not show any acute process. There is some borderline cardiomegaly and central vascular prominence however suspect this is more the patient's baseline. His BNP is normal. Clinically does not appear fluid overloaded except for some trace pedal edema however he states this is chronic and unchanged for him. CBC is normal with no acute anemia. BMP largely normal. His creatinine however is mildly elevated at 1.24. Given his recent report of low blood pressure and was taken off of his lisinopril as well as a bump in his creatinine concern that he could have some intravascular depletion. Is given a small fluid bolus. Clinically his presentation is most consistent with an early pneumonia or bronchitis. He is ambulated the emergency room and does not have any hypoxia. At this time I do feel he stable for continued outpatient follow-up. Will start him prophylactically on Augmentin for possible early community-acquired pneumonia is given first dose in the emergency room. He does feel improved after breathing treatment. Is given a spacer as he was given an inhaler but does not have a spacer to use with it. Is counseled on the importance of close outpatient follow-up. I did also discussed with patient and his that the diagnosis for the cause of his symptoms is not entirely clear and while we are treat this as an infectious etiology it is possible it could be something else and if he worsens he should have a low threshold to return to the emergency room. He verbalized agreement understand this plan. Patient discharged home in stable and improved condition. Lab Data Attestation: I reviewed the patient's lab results. Labs: Laboratory Results - last 24 hr 10/27/24 10/27/24 10/27/24 10:15 12:15 15:10 WBC 8.8 RBC 4.70 Hgb 13.1 Hct 41.1 MCV 87.4 MCH 27.9 MCHC 31.9 L RDW Std Deviation 56.6 H RDW Coeff of Alessandra 17.8 H Plt Count 138 L MPV 10.8 Immature Gran % (Auto) 0.500 Neut % (Auto) 89.0 H Lymph % (Auto) 4.2 L [place] % (Auto) 4.9 Eos % (Auto) 0.6 Baso % (Auto) 0.8 Absolute Neuts (auto) 7.8 H Absolute Lymphs (auto) 0.37 L Nucleated RBC % 0 Sodium 141 Potassium 4.3 Chloride 102 Carbon Dioxide 26.7 Anion Gap 12 BUN 26 H Creatinine 1.24 H Est GFR (MDRD) Non-Af 57 L BUN/Creatinine Ratio 20.6 H Glucose 142 H Calcium 8.9 Troponin T High Sens 30 H Troponin T Hi Sens 2 Hr 29 H NT pro BNP II 1061 Radiography Chest X-Ray - ED: 2 View, Read by ED Physician, No Acute Disease and Cardiomegaly Diagnostic Testing: Clinical Impression(s) from Imaging Studies Chest X-Ray 10/27/24 10:34 IMPRESSION: 1. Borderline mild cardiomegaly and central vascular prominence without overt pulmonary edema. 2. Suspect mild dilatation of the transverse colon. Correlate with bowel function and consider dedicated imaging as indicated. 3. Additional description as above. Reading Location: [facility] Rhythm Strip Rhythm Strip: paced Rate: 60 EKG Initial EKG: Attestation: I personally reviewed and interpreted this EKG as follows: Comments: Ventricular paced rhythm with underlying atrial flutter Normal axis T wave inversions, suspect repolarization abnormalities associated with his pacing Discharge Plan Triage Chief Complaint: Shortness of Breath ED Provider: Celina Wood Dx/Rx/DC Orders Clinical Impression: Pneumonia, Cough Instructions: ED Pneumonia (Adult) Prescriptions: New amoxicillin-pot clavulanate 875-125 mg tablet 1 tab PO BID Qty: 14 0RF benzonatate 200 mg capsule 200 mg PO TID PRN (Reason: cough) Qty: 20 0RF No Action cyanocobalamin (vitamin B-12) 1,000 mcg tablet 1,000 mcg PO DAILY potassium chloride 20 mEq tablet,ER particles/crystals 20 meq PO DAILY finasteride 5 mg tablet 5 mg PO DAILY duloxetine 30 mg capsule,delayed release(DR/EC) 30 mg PO DAILY lisinopril 2.5 mg tablet 2.5 mg PO DAILY trazodone 50 MG tablet 50 mg PO QHS Patient Comments: sleep tamsulosin 0.4 MG capsule 0.4 mg PO DAILY Patient Comments: prostate pravastatin 20 MG tablet 20 mg PO DAILY Patient Comments: cholesterol Eye Multivitamin 2,148 mcg-113 mg-45 mg-17.4mg tablet 1 tab PO BID Rx Instructions: administer with AM and PM meals Centrum Silver Men [phone] mcg tablet 1 tab PO DAILY gabapentin 600 mg tablet 1,800 mg PO Q12H albuterol sulfate 90 mcg/actuation HFA aerosol inhaler 2 inh inhalation Q4H PRN (Reason: shortness of breath or wheezing) levothyroxine 175 mcg tablet 175 mcg PO DAILY omeprazole 20 mg capsule,delayed release(DR/EC) 20 mg PO DAILY zinc gluconate 50 mg tablet 50 mg PO DAILY Eliquis 5 mg tablet 5 mg PO BID Qty: 60 11RF Primary Care Provider: Jose Maurice Referrals: Jose Maurice MD [Primary Care Provider] - Activity Restrictions/Additional Instructions: Your lab work today was largely normal except of some findings consistent with some mild dehydration. You were given some IV fluids. Clinically I suspect you have pneumonia versus bronchitis and have started you on an antibiotic. Your chest x-ray did not show an obvious pneumonia and your white blood cell count was normal. Your oxygen was normal in the emergency room. Take Tylenol at home every 6-8 hours as needed for chills and fever. Use your inhaler with the spacer provided today to help with cough and wheezing. You may also take [id number] Mucinex to help with the congestion in your chest. If you feel your breathing is worsening please do not hesitate to return to the emergency room. Please follow-up later this week with your primary care doctor to make sure you are recovering as expected. Print Language: Upper Sorbian Disposition Disposition: Home, Self Care
[2024-10-27 10:52] LABS: Absolute Lymphocyte Count 0.37 X10^3/uL (0.83-4.51); Absolute Neutrophil Count 7.8 X10^3/uL (2.0-7.7); Basophil# 0.07 X10^3/uL; Basophil% 0.8 % (0-1); Eosinophil# 0.05 X10^3/uL; Eosinophils% 0.6 % (0-5); Hematocrit 41.1 % (40-54); Hemoglobin 13.1 g/dL (13.0-16.5); Lymphocyte # 0.37 X10^3/ul (0.83-4.51); Lymphocyte % 4.2 % (19-41); Mean Corp Hgb Conc 31.9 g/dL (32-36); Mean Corpuscular Hgb 27.9 pg (27.0-32.0); Mean Corpuscular Volume 87.4 fL (80-94); Mean Platelet Vol. 10.8 fl (6.2-12.0); Monocyte# 0.43 X10^3/uL; Monocyte% 4.9 % (0-10); NRBC Flagged by Analyzer 0 % (0-5); POSITIVE DIFFERENTIAL YES; Platelet Count 138 K/mm3 (150-450); RBC Distribution Width CV 17.8 % (11.6-14.6); RBC Distribution Width SD 56.6 fl (35.1-43.9); White Blood Count 8.8 K/mm3 (4.4-11.0)
[2024-10-27 11:35] LABS: Anion Gap 12 (5-15); BUN 26 mg/dL (4-19); BUN/Creat Ratio 20.6 RATIO (10-20); Calcium,Total 8.9 mg/dL (7.6-11.0); Carbon Dioxide 26.7 mmol/L (21.0-32.0); Chloride 102 mmol/L (98-108); Creatinine, Serum 1.24 mg/dL (0.70-1.20); EST Glomerular Filtration Rate 57 (>60); Glucose 142 mg/dL (70-99); Potassium 4.3 mmol/L (3.3-5.1); Pro- Brain NATRIURETIC PEPTIDE 1061 pg/mL (<=1800); Sodium Level 141 mmol/L (133-145)
--- NOTE | 2024-10-27 13:30 | ED.RN ---
resp gave spacer and instructed
[2024-10-27] MEDS: 0.9% Normal Saline (500mL Bag) 500 ML 999 ML IV (13:31)
[2024-10-27] MEDS: Amox/Clavulanate 875 MG Tablet PO (13:31)
[2024-10-27] MEDS: Acetaminophen 325 MG Tablet 650 MG PO (14:26)
[2024-10-27 14:41] LABS: Troponin T High Sensitivity 30 ng/L (<=22)
[2024-10-27 15:35] LABS: Troponin T High Sens 2 HR 29 ng/L (<=22)
== END 2024-10-27 16:00 | disposition home or self-care (01) ==
PROVIDERS: Emergency Provider Emergency Medicine; PCP Family Medicine; Visit Provider Emergency Medicine
DX: J18.9 Pneumonia, unspecified organism (principal); I48.19 Other persistent atrial fibrillation; I10 Essential (primary) hypertension; E78.00 Pure hypercholesterolemia, unspecified; Z79.01 Long term (current) use of anticoagulants; Z79.899 Other long term (current) drug therapy
CPT/HCPCS: 96360; 99284; 71046; 80048; 83880; 84484; 85025; 93005; 94640; A4216

== ENCOUNTER 2024-10-28 08:13 | Inpatient (IN) | payer MEDICARE, SELFPAY ==
[2024-10-28] VITALS (15 sets, daily range): BP systolic 124–176; BP diastolic 59–103; PULSE 58–78; RESP 16–28; TEMP 36.8–37.4; O2SAT 91–98; BMI 40.3; BMI 52.0
--- NOTE | 2024-10-28 08:42 | EDS_ITS ---
HPI History of Present Illness Chief Complaint: Shortness of Breath Narrative Narrative: 83-year-old male presents with his because of increasing shortness of breath and dyspnea. He has past medical history of atrial fibrillation, anticoagulated on Eliquis, hypertension, was seen in the emergency department yesterday and diagnosed with pneumonia although his reports that his chest x-ray was clear. He has taken a total of 3 doses of antibiotics. Throughout the night, he has been increasingly more short of breath. His became concerned when he requested that she open a window because he could not catch his breath. Although they deny history of heart failure, he takes furosemide. He has had swelling of his bilateral lower extremities chronically. He presents to the emergency department via EMS with increased difficulty breathing. [facility] Medical History Easy bruising Shortness of breath on exertion History of irregular heartbeat History of pacemaker Sick sinus syndrome Bradycardia Paroxysmal atrial fibrillation Persistent atrial fibrillation Prostate disease Excessive bleeding Gastric reflux Neuropathy Mobitz (type) I (Wenckebach's) atrioventricular block Wears glasses Cancer Thyroid disease Arthritis Hx of bladder cancer Bladder disease Restless legs Back pain Injury of head and neck Syncope Difficulty swallowing Non-smoker TIA (transient ischemic attack) History of pain when walking History of edema History of stress test Cardiology follow-up encounter Esophageal dysphagia High cholesterol Hypertension Home Medications ?Medication ?Instructions ?Recorded ?Last Taken ?Type pravastatin 20 mg tablet 20 mg PO DAILY Cholesterol 1 07/09/14 10/27/24 History tamsulosin 0.4 mg capsule 0.4 mg PO DAILY Urine retent ion 05/09/15 10/27/24 History trazodone 50 mg tablet 50 mg PO QHS sleep 05/09/15 10/27/24 History cyanocobalamin (vitamin B-12) 1,000 mcg PO DAILY suppl ement 04/14/24 10/27/24 History 1,000 mcg tablet duloxetine 30 mg capsule,delayed 30 mg PO DAILY . 03/2410/27/24 History release finasteride 5 mg tablet 5 mg PO DAILY BPH 04/14/24 0 10/27/24 History gabapentin 600 mg tablet 1,800 mg PO Q12H neuropathy 04/14/24 10/27/24 History xzunrwwl-zh-evgzl 300 mcg-K 60 1 tab PO DAILY suppleme nt 04/14/24 10/27/24 His tory mcg-lycop 600 mcg-lutein 300 mcg tablet (Centrum Silver Men) potassium chloride 20 mEq 20 meq PO DAILY supplement 1 10/27/24 History tablet,extended release(part/cryst) vitamins A,C,I-tjfb-eoktvr 2,148 1 tab PO BID suppleme nt 04/14/24 10/27/24 History mcg-113 mg-45 mg-17.4 mg tablet (Eye Multivitamin) zinc gluconate 50 mg tablet 50 mg PO DAILY supplement 06/08/24 10/27/24 History lisinopril 2.5 mg tablet 2.5 mg PO DAILY BP 06/14/24 10/25/24 History Held on 10/28/24. Instructions: Ordered apixaban 5 mg tablet (Eliquis) 5 mg PO BID #60 tabs 10/27/24 Rx albuterol sulfate 90 mcg/actuation 2 inh inhalation Q4 H PRN shortness 10/27/24 10/27/24 History aerosol inhaler of breath or wheezing amoxicillin 875 mg-potassium 1 tab PO BID #14 tabs 01/1410/28/24 Rx clavulanate 125 mg tablet benzonatate 200 mg capsule 200 mg PO TID PRN cough #20 caps 10/27/24 10/28/24 Rx levothyroxine 175 mcg tablet 175 mcg PO DAILY 10/27/24 10/28/24 History omeprazole 20 mg capsule,delayed 20 mg PO DAILY 10/27/24 History release Allergy/AdvReac Type Severity Reaction Status Date / Time oxybutynin (From Ditropan) Allergy Intermediate Nausea/Vom/ Verified 10/28/24 08:20 Diarrhea prednisone AdvReac Nausea Verified 10/28/24 08:20 Surgical History History of surgical removal of pilonidal cyst History of permanent cardiac pacemaker placement Status post cardiac pacemaker procedure History of esophagogastroduodenoscopy (EGD) History of laparoscopic cholecystectomy Hx of colonoscopy Hx of repair of left rotator cuff Hx of repair of right rotator cuff Hx of microdiscectomy History of lumbar spinal fusion Social History household members: spouse housing: house Smoking Status: Never smoker alcohol intake: never substance use type: does not use ROS ROS ED ROS Narrative Review of systems positive for dyspnea on exertion, shortness of breath at rest, no chest pain. He did have a fever last evening according to his both yesterday and this morning/throughout the night. Positive pedal edema. EXAM Physical Exam Narrative Exam Narrative: Afebrile. Vital signs noted. Nontoxic-appearing. Cardiovascular examination feels a regular rhythm with regular rate in the 60s. He has diffuse bilateral wheezing. Moving a fair amount of air. No retractions. Abdomen soft nontender without guarding or rebound. Neurological examination nonfocal, nonlateralizing. Positive +1 pedal edema, pitting, equal and symmetric. Const Vital Signs: 10/28/24 08:14 10/28/24 08:20 10/28/24 08:46 Temperature 98.4 F 98.6 F Temperature Source Temporal Temporal Pulse Rate 62 62 Respiratory Rate 22 H 20 H Blood Pressure 152/80 H 150/82 H Blood Pressure Mean 104 104 Pulse Ox 93 92 Oxygen Delivery Method Room Air Nasal Cannula Nasal Cannula Oxygen Flow Rate (L/min) 2 2 Fraction of Inspired Oxygen (FIO2) 95 10/28/24 08:46 10/28/24 09:20 10/28/24 10:00 Temperature 98.6 F 98.7 F Temperature Source Oral Oral Pulse Rate 66 78 Respiratory Rate 20 H 20 H Blood Pressure 133/59 H 162/78 H 126/64 H Blood Pressure Mean 83 106 84 Pulse Ox 95 95 Oxygen Delivery Method Nasal Cannula Nasal Cannula Oxygen Flow Rate (L/min) 2 2 Fraction of Inspired Oxygen (FIO2) MDM MDM MDM Narrative Medical decision making narrative: The differential diagnosis includes but not limited to pneumonia versus CHF versus bronchitis. I reviewed his workup from yesterday. He had a chest x-ray that was clear. I do not feel he needs repeat chest x-ray. He is borderline hypoxic with a pulse ox of 92% on room air and he was placed on nasal cannula oxygen. He will be administered Lasix. He had a BNP which was yesterday. I considered scanning him for pulmonary embolism, however he is already anticoagulated with Eliquis. EKG was obtained and interpreted by myself independently as atrial fibrillation with frequent PVCs at [address] changes. No STEMI. I reviewed his laboratory work from today and he has normal white count of 9.1 with hemoglobin 13.8, platelet count low at 136, no significant change from yesterday's labs when he was thrombocytopenic. Glucose elevated at 148 with anion gap normal at 12 with BUN of 23 and creatinine 1.07. Of significance, BNP is elevated at 2134, up from 1061. Patient had been given Lasix 40 mg intravenously. While I do not feel chest x-ray is indicated, I did obtain a respiratory swab and he is negative for COVID, influenza, and RSV. At this point in time, I do feel that he is probably more fluid overloaded and given the increase in his BNP as well as tachypnea at rest with borderline hypoxia, I will discuss the patient with the hospitalist at least for observation. Patient and agreeable to the plan. History & Record Review Discussion w/independent historian: Patient and Family Additional record(s) reviewed:: Prior ED visit, Prior labs and Other (Last echocardiogram 2021 with EF of 65% ?5%) Lab Data Attestation: I reviewed the patient's lab results. Labs: Laboratory Results - last 24 hr 10/28/24 08:00 WBC 9.1 RBC 4.92 Hgb 13.8 Hct 43.0 MCV 87.4 MCH 28.0 MCHC 32.1 RDW Std Deviation 57.6 H RDW Coeff of Alessandra 18.2 H Plt Count 136 L MPV 10.7 Immature Gran % (Auto) 0.700 Neut % (Auto) 92.0 H Lymph % (Auto) 2.[address] [place] % (Auto) 4.3 Eos % (Auto) 0.2 Baso % (Auto) 0.6 Absolute Neuts (auto) 8.4 H Absolute Lymphs (auto) 0.20 L Nucleated RBC % 0 Sodium 140 Potassium 4.1 Chloride 102 Carbon Dioxide 26.5 Anion Gap 12 BUN 23 H Creatinine 1.07 Estim Creat Clear Calc 70.96 Est GFR (MDRD) Non-Af 68 BUN/Creatinine Ratio 21.4 H Glucose 148 H Calcium 9.0 NT pro BNP II 2134 H Management Discussion w/another healthcare provider: Hospitalist Discharge Plan Triage Chief Complaint: Shortness of Breath ED Provider: Albert Swan Dx/Rx/DC Orders Prescriptions: No Action cyanocobalamin (vitamin B-12) 1,000 mcg tablet 1,000 mcg PO DAILY potassium chloride 20 mEq tablet,ER particles/crystals 20 meq PO DAILY finasteride 5 mg tablet 5 mg PO DAILY duloxetine 30 mg capsule,delayed release(DR/EC) 30 mg PO DAILY lisinopril 2.5 mg tablet 2.5 mg PO DAILY trazodone 50 MG tablet 50 mg PO QHS tamsulosin 0.4 MG capsule 0.4 mg PO DAILY pravastatin 20 MG tablet 20 mg PO DAILY Eye Multivitamin 2,148 mcg-113 mg-45 mg-17.4mg tablet 1 tab PO BID Rx Instructions: administer with AM and PM meals Centrum Silver Men [id number] mcg tablet 1 tab PO DAILY gabapentin 600 mg tablet 1,800 mg PO Q12H albuterol sulfate 90 mcg/actuation HFA aerosol inhaler 2 inh inhalation Q4H PRN (Reason: shortness of breath or wheezing) levothyroxine 175 mcg tablet 175 mcg PO DAILY omeprazole 20 mg capsule,delayed release(DR/EC) 20 mg PO DAILY amoxicillin-pot clavulanate 875-125 mg tablet 1 tab PO BID Qty: 14 0RF Patient Comments: pt started 10/27/24 benzonatate 200 mg capsule 200 mg PO TID PRN (Reason: cough) Qty: 20 0RF Patient Comments: started today zinc gluconate 50 mg tablet 50 mg PO DAILY Eliquis 5 mg tablet 5 mg PO BID Qty: 60 11RF Primary Care Provider: Jose Maurice Referrals: Jose Maurice MD [Primary Care Provider] - Print Language: Iranian
[2024-10-28] MEDS: Furosemide 40 MG/4 ML Vial IV ×2 (08:44→18:27)
[2024-10-28 09:00] LABS: Absolute Neutrophil Count 8.4 X10^3/uL (2.0-7.7); Basophil# 0.05 X10^3/uL; Basophil% 0.6 % (0-1); Eosinophil# 0.02 X10^3/uL; Eosinophils% 0.2 % (0-5); Hemoglobin 13.8 g/dL (13.0-16.5); Lymphocyte % 2.2 % (19-41); Mean Corp Hgb Conc 32.1 g/dL (32-36); Mean Corpuscular Volume 87.4 fL (80-94); Mean Platelet Vol. 10.7 fl (6.2-12.0); Monocyte# 0.39 X10^3/uL; Monocyte% 4.3 % (0-10); NRBC Flagged by Analyzer 0 % (0-5); Neutrophil # 8.36 X10^3/uL (2.7-7.7); POSITIVE DIFFERENTIAL YES; Platelet Count 136 K/mm3 (150-450); RBC Distribution Width CV 18.2 % (11.6-14.6); RBC Distribution Width SD 57.6 fl (35.1-43.9); Red Blood Count 4.92 M/mm3 (4.6-6.2); White Blood Count 9.1 K/mm3 (4.4-11.0)
[2024-10-28 09:25] LABS: Anion Gap 12 (5-15); BUN 23 mg/dL (4-19); BUN/Creat Ratio 21.4 RATIO (10-20); Carbon Dioxide 26.5 mmol/L (21.0-32.0); Chloride 102 mmol/L (98-108); Creatinine, Serum 1.07 mg/dL (0.70-1.20); EST Glomerular Filtration Rate 68 (>60); Estimated Creatinine Clearance 70.96 ml/min (50-250); Glucose 148 mg/dL (70-99); Potassium 4.1 mmol/L (3.3-5.1); Sodium Level 140 mmol/L (133-145)
[2024-10-28 09:43] LABS: Pro- Brain NATRIURETIC PEPTIDE 2134 pg/mL (<=1800)
--- NOTE | 2024-10-28 11:39 | CASEMGMT ---
Care Management Face to Face with patient for initial transition planning/care coordination assessment in the ED.? This senior technical writer introduced self and role at [facility]. Patient alert and oriented. Patient willing to participate in assessment and is able to answer all questions appropriately.? Care providers, pharmacy, and demographics verified. Admitting Diagnosis: ?Shortness of breath Other diagnosis history: ?h/o pacemaker, afib, neuropathy, bladder disease, dysphagia, hypertension PCP: ?Josafat Specialists: ?[facility] Urology, Friend Preferred Pharmacy: [facility] Insurance: ?[employer] Prescription Benefit: ?Yes Living Will/HPOA: ?Has both, LW on file, asked to bring in HPOA LNOK: Living Arrangements: ?Lives with in a one story home, independent with ADLs and most IADLs?? assists as needed.?? Transportation: ? drives, patient hopes to regain driving privileges DME: rollator, walker, bars around toilet, grab bars, walk in shower with bench, pulse ox HHC: ?[facility] SNF/Rehab: ?[facility] Community Resources: None Behavioral Health History: None Patient goals: Patient wishes to discharge home. Disposition Plan: admission to acute; RN CM/SW to follow for discharge planning needs that may arise. Yamileth Goodman, SALESPERSON HOSIERY, BUSINESS CONSULTANT
--- NOTE | 2024-10-28 14:49 | ECHOCS_ITS ---
Reason For Study Reason For Study: CHF Procedure This was a 2D Doppler, Color Flow transthoracic echocardiogram. The study was technically difficult. Due to body habitus. Contrast injection was performed. Exam performed portable in patient room. Left Ventricle Mild concentric left ventricular hypertrophy. Normal LV size. The LV systolic function is normal. EF is 55 %. Stage 3 diastolic dysfunction. Right Ventricle Normal right ventricle. Atria The left and right atria are normal. Mitral Valve Trivial to mild mitral valve regurgitation. Tricuspid Valve Mild tricuspid valve insufficiency. Right ventricular systolic pressure estimated to be 44 mmHg. Aortic Valve Trisinus/trileaflet aortic valve. Pulmonic Valve The pulmonic valve is not well visualized. Great Vessels Mildly dilated aortic root. Pericardium/Pleural No pericardial effusion. Medication Diluted definity 3.0ml given slow IV push to enhance endocardial definition. MMode/2D Measurements & Calculations LVIDd: 5.8 cm IVSd: 1.2 cm Ao root diam: 3.9 cm LVIDs: 4.2 cm LVPWd: 1.0 cm LA dimension: 4.0 cm RVDd: 4.0 cm FS: 27.6 % LAV(MOD-bp): 89.7 ml LVAd ap4: 33.5 cm2 LVAd ap2: 30.3 cm2 LAV(MOD-bp) Indexed: 32.6 ml/m2 LVLd ap4: 7.9 cm LVLd ap2: 8.3 cm LAV(MOD-sp2): 81.9 ml EDV(MOD-sp4): 117.0 ml EDV(MOD-sp2): 91.3 ml LAV(MOD-sp4): 87.6 ml EDV(sp4-el): 120.3 ml EDV(sp2-el): 93.4 ml LVAs ap4: 22.6 cm2 LVAs ap2: 19.1 cm2 LVLs ap4: 7.7 cm LVLs ap2: 7.2 cm ESV(MOD-sp4): 54.9 ml ESV(MOD-sp2): 42.8 ml ESV(sp4-el): 56.5 ml ESV(sp2-el): 43.0 ml EF(MOD-sp4): 53.1 % EF(MOD-sp2): 53.1 % EF(sp4-el): 53.0 % SV(MOD-sp4): 62.1 ml SV(MOD-sp2): 48.5 ml SV(sp4-el): 63.8 ml SI(MOD-sp4): 22.6 ml/m2 SI(MOD-sp2): 17.6 ml/m2 LA A4 area: 28.3 cm2 LA dimension(2D): 5.2 cm RA A4 area: 16.2 cm2 TAPSE: 2.1 cm Time Measurements MV dec time: 0.20 sec Doppler Measurements & Calculations MV E max juan: 82.2 cm/sec Lat Peak E' Juan: 11.4 cm/sec Med Peak E' Juan: 10.1 cm/sec MV A max juan: 27.9 cm/sec E/E' lat: 7.2 E/E' med: 8.1 MV E/A: 2.9 Ao V2 max: 135.6 cm/sec LV V1 max: 96.9 cm/sec PA V2 max: 114.5 cm/sec Ao max P.4 mmHg LV V1 max P.8 mmHg PA V2 mean: 90.0 cm/sec Ao V2 mean: 106.3 cm/sec LV V1 mean P.2 mmHg Ao mean P.8 mmHg LV V1 mean: 71.2 cm/sec Ao V2 VTI: 27.8 cm LV V1 VTI: 18.1 cm AV (velocity ratio): 0.65 TR max juan: 271.3 cm/sec TR max P.5 mmHg ECHO/Echo Complete W/ Contrast Interpretation Summary The study was technically difficult. Mild concentric left ventricular hypertrophy. The LV systolic function is normal. EF is 55 %. Stage 3 diastolic dysfunction. Trivial to mild mitral valve regurgitation. Mild tricuspid valve insufficiency. Right ventricular systolic pressure estimated to be 44 mmHg. Mildly dilated aortic root. Ordering Physician: Jonh Shen Referring Physician: Jose Maurice Performed By: Bharati Pabon RDCS, RVT
--- NOTE | 2024-10-28 16:36 | PCM.HP.STD ---
[facility] - General General Date of Admission: 10/28/24 Date of Service: 10/28/24 Chief Complaint: shortness of breath. HPI Narrative JUAN MANUEL MASON, is a 83 M who presents with shortness of breath. Patient was seen here in the emergency room on the seventh and diagnosed with a pneumonia was discharged with antibiotics. Patient only came back because you just continue to be short of breath. BNP was 1001 up to 1999 today. Diagnosed with CHF and received furosemide and the hospital service was contacted for admission. Patient at home has been having some low-grade temps up to about 102 Fahrenheit. He has been having audible wheezing. And he has noted that he has had increased lower extremity edema as well as weight gain recently. [facility] Medical History Easy bruising Shortness of breath on exertion History of irregular heartbeat History of pacemaker Sick sinus syndrome Bradycardia Paroxysmal atrial fibrillation Persistent atrial fibrillation Prostate disease Excessive bleeding Gastric reflux Neuropathy Mobitz (type) I (Wenckebach's) atrioventricular block Wears glasses Cancer Thyroid disease Arthritis Hx of bladder cancer Bladder disease Restless legs Back pain Injury of head and neck Syncope Difficulty swallowing Non-smoker TIA (transient ischemic attack) History of pain when walking History of edema History of stress test Cardiology follow-up encounter Esophageal dysphagia High cholesterol Hypertension Home Medications ?Medication ?Instructions ?Recorded ?Last Taken ?Type pravastatin 20 mg tablet 20 mg PO DAILY Cholesterol 05/09/15 10/27/24 History tamsulosin 0.4 mg capsule 0.4 mg PO DAILY Urine retention 05/09/15 10/27/24 History trazodone 50 mg tablet 50 mg PO QHS sleep 05/09/15 10/27/24 History cyanocobalamin (vitamin B-12) 1,000 mcg PO DAILY supplement 04/14/24 10/27/24 History 1,000 mcg tablet duloxetine 30 mg capsule,delayed 30 mg PO DAILY . 04/14/24 10/27/24 History release finasteride 5 mg tablet 5 mg PO DAILY BPH 04/14/24 10/27/24 History gabapentin 600 mg tablet 1,800 mg PO Q12H neuropathy 04/14/24 10/27/24 History gccsdggw-ov-nvsog 300 mcg-K 60 1 tab PO DAILY supplement 04/14/24 10/27/24 History mcg-lycop 600 mcg-lutein 300 mcg tablet (Centrum Silver Men) potassium chloride 20 mEq 20 meq PO DAILY supplement 04/14/24 10/27/24 History tablet,extended release(part/cryst) vitamins A,C,G-lhix-forhxe 2,148 1 tab PO BID supplement 04/14/24 10/27/24 History mcg-113 mg-45 mg-17.4 mg tablet (Eye Multivitamin) zinc gluconate 50 mg tablet 50 mg PO DAILY supplement 06/08/24 10/27/24 History lisinopril 2.5 mg tablet 2.5 mg PO DAILY BP 06/14/24 10/25/24 History Held on 10/28/24. Instructions: MD Ordered apixaban 5 mg tablet (Eliquis) 5 mg PO BID #60 tabs 09/07/24 10/27/24 Rx albuterol sulfate 90 mcg/actuation 2 inh inhalation Q4H PRN shortness 10/27/24 10/27/24 History aerosol inhaler of breath or wheezing amoxicillin 875 mg-potassium 1 tab PO BID #14 tabs 10/27/24 10/28/24 Rx clavulanate 125 mg tablet benzonatate 200 mg capsule 200 mg PO TID PRN cough #20 caps 10/27/24 10/28/24 Rx levothyroxine 175 mcg tablet 175 mcg PO DAILY 10/27/24 10/28/24 History omeprazole 20 mg capsule,delayed 20 mg PO DAILY 10/27/24 10/27/24 History release Allergy/AdvReac Type Severity Reaction Status Date / Time oxybutynin (From Ditropan) Allergy Intermediate Nausea/Vom/ Verified 10/28/24 08:20 Diarrhea prednisone AdvReac Nausea Verified 10/28/24 08:20 Family History no significant family his no significant family history Surgical History History of surgical removal of pilonidal cyst History of permanent cardiac pacemaker placement Status post cardiac pacemaker procedure History of esophagogastroduodenoscopy (EGD) History of laparoscopic cholecystectomy Hx of colonoscopy Hx of repair of left rotator cuff Hx of repair of right rotator cuff Hx of microdiscectomy History of lumbar spinal fusion Social History household members: spouse housing: house Smoking Status: Never smoker alcohol intake: never substance use type: does not use ROS ROS Narrative All review of systems were negative except as mentioned above in the history of present illness and the other review of systems. Vital Signs Vital Signs Vital Signs: 10/28/24 08:14 10/28/24 08:20 10/28/24 08:46 Temperature 36.9 C 37.0 C Temperature Source Temporal Temporal Pulse Rate 62 62 Respiratory Rate 22 H 20 H Respiratory Effort Blood Pressure 152/80 H 150/82 H Blood Pressure Mean 104 104 Pulse Ox 93 92 Oxygen Delivery Method Room Air Nasal Cannula Nasal Cannula Oxygen Flow Rate (L/min) 2 2 Fraction of Inspired Oxygen (FIO2) 95 10/28/24 08:46 10/28/24 09:20 10/28/24 10:00 Temperature 37.0 C 37.1 C Temperature Source Oral Oral Pulse Rate 66 78 Respiratory Rate 20 H 20 H Respiratory Effort Blood Pressure 133/59 H 162/78 H 126/64 H Blood Pressure Mean 83 106 84 Pulse Ox 95 95 Oxygen Delivery Method Nasal Cannula Nasal Cannula Oxygen Flow Rate (L/min) 2 2 Fraction of Inspired Oxygen (FIO2) 10/28/24 11:00 10/28/24 12:00 10/28/24 12:00 Temperature 37.1 C 37.4 C H Temperature Source Oral Oral Pulse Rate 64 64 Respiratory Rate 16 28 H Respiratory Effort Blood Pressure 124/78 H 176/98 H 176/98 H Blood Pressure Mean 93 124 124 Pulse Ox 95 94 Oxygen Delivery Method Nasal Cannula Nasal Cannula Oxygen Flow Rate (L/min) 3 2 Fraction of Inspired Oxygen (FIO2) 10/28/24 12:59 10/28/24 12:59 10/28/24 13:00 Temperature 37.4 C H 37.4 C H Temperature Source Oral Pulse Rate 62 62 Respiratory Rate 22 H 22 H Respiratory Effort Short of Breath Blood Pressure 139/103 H 139/103 H Blood Pressure Mean 115 115 Pulse Ox 95 95 Oxygen Delivery Method Nasal Cannula Nasal Cannula Oxygen Flow Rate (L/min) 2 2 Fraction of Inspired Oxygen (FIO2) 10/28/24 13:00 10/28/24 13:13 10/28/24 14:20 Temperature 36.9 C 36.8 C Temperature Source Oral Oral Pulse Rate 58 L Respiratory Rate 18 Respiratory Effort Blood Pressure 139/103 H 153/74 H Blood Pressure Mean 115 100 Pulse Ox 91 Oxygen Delivery Method Nasal Cannula Oxygen Flow Rate (L/min) 2 Fraction of Inspired Oxygen (FIO2) Weight Weight: 169.2 kg Body Mass Index (BMI) 52.0 Physical Exam Narrative POCUS: Indication is for heart failure: Evaluate heart very difficult to get windows given his body habitus. The subxiphoid view showed some maybe some mild LV hypokinesis. Parasternal long axis again possible LV hypokinesis. No pericardial effusion identified. And apical view was limited due to lung tissue. And on pulmonary evaluation in the anterior and lateral windows showed numerous B-lines throughout. Unable to appreciate the IVC on this exam due to body habitus. Const alert and no apparent distress General Appearance: cooperative HEENT normocephalic and head/scalp atraumatic Resp normal respiratory effort and no retractions Resp Narrative: Bilateral upper respiratory wheezes Cardio regular rate, regular rhythm, S1 normal heart sound and S2 normal heart sound GI normal to inspection, nondistended, normoactive bowel sounds, soft to palpation, non-tender and non-distended Extremity Extremity Narrative: Bilateral lower extremity edema, nonpitting. Skin Skin Narrative: No rashes or lesions Neuro moves all extremities Sensorium / Orientation: awake, alert, oriented to person, oriented to place and oriented to time Psych affect normal Results Lab / Micro Data 10/28/24 08:00 10/28/24 08:00 Labs: Laboratory Results - last 24 hr 10/28/24 08:00: WBC 9.1, RBC 4.92, Hgb 13.8, Hct 43.0, MCV 87.4, MCH 28.0, MCHC 32.1, RDW Std Deviation 57.6 H, RDW Coeff of Alessandra 18.2 H, Plt Count 136 L, MPV 10.7, Immature Gran % (Auto) 0.700, Neut % (Auto) 92.0 H, Lymph % (Auto) 2.2 L, [place] % (Auto) 4.3, Eos % (Auto) 0.2, Baso % (Auto) 0.6, Absolute Neuts (auto) 8.4 H, Absolute Lymphs (auto) 0.20 L, Nucleated RBC % 0, Sodium 140, Potassium 4.1, Chloride 102, Carbon Dioxide 26.5, Anion Gap 12, BUN 23 H, Creatinine 1.07, Estim Creat Clear Calc 70.96, Est GFR (MDRD) Non-Af 68, BUN/Creatinine Ratio 21.4 H, Glucose 148 H, Calcium 9.0, NT pro BNP II 2134 H Micro: Microbiology 10/28/24 09:30 Mucosa - Nose SARS-CoV-2, Influenza & RSV (PCR) - Final Assessment & Plan Assessment/Plan (1) Congestive heart failure: PLAN: Acute CHF exacerbation: Unclear type at this time. Patient's weight has gone up roughly 6 kg since August. Continue with IV furosemide. I did a bedside POCUS and was concerning for some LV hypokinesis but limited windows due to body habitus so we will check a formal echocardiogram. Fluid restrict, daily weights. I personally reviewed the patient's chest x-ray along with the family and reviewed POCUS findings with the patient and his family. Explained that despite his temperatures I am not convinced that he has a pneumonia and will hold off on antibiotics at this time. Though if he does start manifesting symptoms and we can reconsider. In the meantime we will check a formal PA and lateral chest x-ray. PLAN: Plan Chronic conditions Obesity class III with a BMI 52. Complicates care and recovery. Atrial fibrillation: Status post pacemaker. On apixaban. Depression: Continue duloxetine BPH continue with tamsulosin and finasteride Hypertension: Stable continue lisinopril Hypothyroidism: Continue levothyroxine VTE prophylaxis: Not indicated as patient is already on anticoagulation. CODE STATUS: Addressed with the patient. Patient wishes to be full code. Charges/Coding Visit Charges Inpatient E&M: 05183 Init Hosp L3
--- NOTE | 2024-10-28 16:37 | RAD_ITS ---
PROCEDURE: CHEST PA AND LATERAL 10/28/2024 REASON FOR EXAM: DYSPNEA TECHNIQUE: Frontal and lateral views of the chest. COMPARISON: Chest radiograph 10/27/2024 FINDINGS: Hardware: A cardiac pacemaker is present. Heart: Heart size is mildly enlarged. Mediastinum: The mediastinal contour is unremarkable. Lungs: Bibasilar atelectasis. No focal consolidation. No pneumothorax. No pleural effusion. Bones: Degenerative changes are identified within the thoracic spine. RAD/Chest PA and Lateral IMPRESSION: NO ACUTE FINDINGS. Reading [facility]
[2024-10-28] MEDS: Gabapentin 600 MG Tablet 1800 MG PO (20:42)
[2024-10-28] MEDS: APIXABAN 5 MG TABLET PO (20:43)
[2024-10-28] MEDS: traZODone 50 MG Tablet PO (20:43)
[2024-10-28 23:13] LABS: Bacteria 0 SEEN /hpf (None Seen)
--- NOTE | 2024-10-28 23:20 | RAD_ITS ---
PROCEDURE: CHEST 1 VIEW (PORTABLE) 10/28/2024 REASON FOR EXAM: SOB TECHNIQUE: Frontal view of the chest. COMPARISON: 10/28/2024 FINDINGS: Hardware: Stable left-sided ICD. Heart: Heart size is mildly enlarged. Lungs: Bilateral interstitial thickening. No focal consolidation. No pneumothorax. No pleural effusion. Bones: Degenerative changes are identified within the thoracic spine. Other: RAD/Chest 1 View (Portable) IMPRESSION: Findings concerning for vascular congestion. Reading Location: [facility]
[2024-10-28 23:21] LABS: Color, Urine Straw (Yellow); Glucose, Dipstick Normal (Normal); Ketone-Dipstick Negative (Negative); Leukocyte Esterase-Dipstick Negative /ul (Negative); Nitrite-Dipstick Negative (Negative); Occult Blood-Urine 50 /ul (Negative); Protein-Dipstick 100 mg/dl (Negative); Specific Gravity, Urine 1.015 (1.002-1.030); Urine Bilirubin Dipstick Negative (Negative); Urine Clarity Clear (Clear); Urine Urobilinogen Normal (Normal)
[2024-10-28 23:39] LABS: Hyaline Cast 0-5 SEEN /lpf (0-5); Mucous, Urine 1+ /hpf (<or=2+); Red Blood Cells-Urine 0-5 SEEN /hpf (0-5); Squamous Epithelial Cells - UA 0-5 SEEN /hpf (0-5); White Blood Cells 0-5 SEEN /hpf (0-5)
[2024-10-28 23:44] LABS: Allen Test Positive; Base Excess 11 mmol/L (-2 to +2); Bicarbonate 35.7 mmol/L (22-26); Blood Gas Specimen Type ART; Mode Not entered; O2 Delivery Device Cannula; PO2 87 mmHG (75-100); SITE L Radial; SO2 96 % (95-99); Total Carbon Dioxide 38 mmol/L; pCO2 59.3 mmHg (35-45); pH 7.39 (7.35-7.45)
[2024-10-29 00:20] LABS: Pro- Brain NATRIURETIC PEPTIDE 2505 pg/mL (<=1800)
[2024-10-29] MEDS: 0.9% Saline Lock 10 ML Syringe IV ×2 (01:32→21:51)
[2024-10-29] MEDS: Furosemide 100 MG/10 ML Vial 60 MG IV (01:32)
[2024-10-29 02:45] VITALS: BP 125/49; PULSE 67; RESP 18; TEMP 36.2; O2SAT 94
[2024-10-29] MEDS: Levothyroxine 175 MCG Tablet PO (03:39)
[2024-10-29 05:21] VITALS: BMI 52.0
[2024-10-29 05:53] LABS: Absolute Lymphocyte Count 0.41 X10^3/uL (0.83-4.51); Absolute Neutrophil Count 8.1 X10^3/uL (2.0-7.7); Basophil# 0.05 X10^3/uL; Basophil% 0.5 % (0-1); Hematocrit 43.1 % (40-54); Hemoglobin 13.8 g/dL (13.0-16.5); Lymphocyte # 0.41 X10^3/ul (0.83-4.51); Lymphocyte % 4.5 % (19-41); Mean Corpuscular Hgb 28.3 pg (27.0-32.0); Mean Corpuscular Volume 88.3 fL (80-94); Mean Platelet Vol. 11.3 fl (6.2-12.0); Monocyte# 0.48 X10^3/uL; Monocyte% 5.2 % (0-10); NRBC Flagged by Analyzer 0 % (0-5); Neutrophil # 8.14 X10^3/uL (2.7-7.7); POSITIVE DIFFERENTIAL YES; Platelet Count 132 K/mm3 (150-450); RBC Distribution Width CV 17.6 % (11.6-14.6); RBC Distribution Width SD 57.4 fl (35.1-43.9); Red Blood Count 4.88 M/mm3 (4.6-6.2); White Blood Count 9.2 K/mm3 (4.4-11.0)
[2024-10-29 06:21] LABS: Anion Gap 12 (5-15); BUN 22 mg/dL (4-19); BUN/Creat Ratio 20.6 RATIO (10-20); Calcium,Total 8.6 mg/dL (7.6-11.0); Carbon Dioxide 29.7 mmol/L (21.0-32.0); Chloride 100 mmol/L (98-108); Creatinine, Serum 1.06 mg/dL (0.70-1.20); EST Glomerular Filtration Rate 69 (>60); Estimated Creatinine Clearance 82.84 ml/min (50-250); Glucose 153 mg/dL (70-99); Potassium 3.4 mmol/L (3.3-5.1); Sodium Level 141 mmol/L (133-145)
--- NOTE | 2024-10-29 07:37 | PN.HOSP_ITS ---
Reason for Visit Reason for Visit: Diagnoses Heart failure, unspecified (10/28/24) Subjective Subjective Breathing well. Objective Data Objective Data Vital Signs: Vital Signs Temp Pulse Resp BP Pulse Ox O2 Del Method O2 Flow Rate 36.2 C L 67 18 125/49 H 94 Nasal Cannula 3 10/29/24 02:45 10/29/24 02:45 10/29/24 02:45 10/29/24 02:45 10/29/24 02:45 10/29/24 02:45 10/29/24 02:45 FiO2 95 10/28/24 08:46 Oxygen Flow Rate (L/min) 3 Oxygen Delivery Method Nasal Cannula Weight: 169.3 kg Body Mass Index (BMI) 52.0 Intake & Output: Intake and Output for Last 24 Hours 10/27/24 10/28/24 10/29/24 23:59 23:59 23:59 Intake Total 440 / 440 Output Total 1585 / 1585 475 / 475 Balance -1145 / -1145 -475 / -475 Lab / Micro Data 10/29/24 04:38 10/29/24 04:38 Labs: Laboratory Results - last 24 hr 10/28/24 08:00: WBC 9.1, RBC 4.92, Hgb 13.8, Hct 43.0, MCV 87.4, MCH 28.0, MCHC 32.1, RDW Std Deviation 57.6 H, RDW Coeff of Alessandra 18.2 H, Plt Count 136 L, MPV 10.7, Immature Gran % (Auto) 0.700, Neut % (Auto) 92.0 H, Lymph % (Auto) 2.2 L, [place] % (Auto) 4.3, Eos % (Auto) 0.2, Baso % (Auto) 0.6, Absolute Neuts (auto) 8.4 H, Absolute Lymphs (auto) 0.20 L, Nucleated RBC % 0, Sodium 140, Potassium 4.1, Chloride 102, Carbon Dioxide 26.5, Anion Gap 12, BUN 23 H, Creatinine 1.07, Estim Creat Clear Calc 70.96, Est GFR (MDRD) Non-Af 68, BUN/Creatinine Ratio 21.4 H, Glucose 148 H, Calcium 9.0, NT pro BNP II 2134 H 10/28/24 23:00: Urine Color Straw, Urine Clarity Clear, Urine pH 6.0, Ur Specific [place] 1.015, Urine Protein 100 H, Urine Glucose (UA) Normal, Urine Ketones Negative, Urine Occult Blood 50 H, Urine Nitrite Negative, Urine Bilirubin Negative, Urine Urobilinogen Normal, Ur Leukocyte Esterase Negative, Urine RBC 0-5 SEEN, Urine WBC 0-5 SEEN, Ur Squamous Epith Cells 0-5 SEEN, Urine Bacteria 0 SEEN, Hyaline Casts 0-5 SEEN, Urine Mucus 1+ 10/28/24 23:43: NT pro BNP II 2505 H 10/29/24 04:38: WBC 9.2, RBC 4.88, Hgb 13.8, Hct 43.1, MCV 88.3, MCH 28.3, MCHC 32.0, RDW Std Deviation 57.4 H, RDW Coeff of Alessandra 17.6 H, Plt Count 132 L, MPV 11.3, Immature Gran % (Auto) 0.800, Neut % (Auto) 89.0 H, Lymph % (Auto) 4.5 L, [place] % (Auto) 5.2, Eos % (Auto) 0.0, Baso % (Auto) 0.5, Absolute Neuts (auto) 8.1 H, Absolute Lymphs (auto) 0.41 L, Nucleated RBC % 0, Sodium 141, Potassium 3.4, Chloride 100, Carbon Dioxide 29.7, Anion Gap 12, BUN 22 H, Creatinine 1.06, Estim Creat Clear Calc 82.84, Est GFR (MDRD) Non-Af 69, BUN/Creatinine Ratio 20.6 H, Glucose 153 H, Calcium 8.6 Micro: Microbiology 10/28/24 09:30 Mucosa - Nose SARS-CoV-2, Influenza & RSV (PCR) - Final ABG Data ABG results: ABG 10/28/24 23:39 Specimen Type ART Sample Site L Radial pH 7.39 Bicarbonate Actual 35.7 H Total CO2 38 Base Excess 11 H O2 Saturation 96 O2 % 3.0 ABG pCO2 59.3 H ABG pO2 87 [place] Test Positive O2 Delivery Device Cannula Vent Mode Not entered Radiography Diagnostic Testing: Radiology Impression Chest X-Ray 10/28/24 16:37 IMPRESSION: NO ACUTE FINDINGS. Reading Location: [facility] Chest X-Ray 10/28/24 23:20 IMPRESSION: Findings concerning for vascular congestion. [facility] Physical Exam Const alert and no apparent distress HEENT head/scalp atraumatic and moist oral mucous membranes Resp normal respiratory effort and no retractions Resp Narrative: bilateral crackles. Cardio regular rate, regular rhythm and S1 normal heart sound GI normal to inspection, nondistended, normoactive bowel sounds, soft to palpation, non-tender and non-distended Neuro Sensorium / Orientation: awake and alert Assessment & Plan Assessment/Plan (1) Congestive heart failure: PLAN: Acute CHF exacerbation: Unclear type at this time. Patient's weight has gone up roughly 6 kg since August. Continue with IV furosemide. I did a bedside POCUS and was concerning for some LV hypokinesis but limited windows due to body habitus so we will check a formal echocardiogram. Fluid restrict, daily weights. I personally reviewed the patient's chest x-ray along with the family and reviewed POCUS findings with the patient and his family. Explained that despite his temperatures I am not convinced that he has a pneumonia and will hold off on antibiotics at this time. Though if he does start manifesting symptoms and we can reconsider. In the meantime we will check a formal PA and lateral chest x- ray. PLAN: Plan Chronic conditions * Obesity class III with a BMI 52. Complicates care and recovery. * Atrial fibrillation: Status post pacemaker. On apixaban. * Depression: Continue duloxetine * BPH continue with tamsulosin and finasteride * Hypertension: Stable continue lisinopril * Hypothyroidism: Continue levothyroxine VTE prophylaxis: Not indicated as patient is already on anticoagulation. CODE STATUS: Addressed with the patient. Patient wishes to be full code. Charges/Coding Visit Charges Inpatient E&M: 55158 Subs Hosp L2
[2024-10-29 08:45] VITALS: BP 129/83; PULSE 69; RESP 17; TEMP 36.7; O2SAT 93
[2024-10-29] MEDS: DULoxetine Hcl 30 MG Capsule PO (09:38)
[2024-10-29] MEDS: Pravastatin 20 MG Tablet PO (09:38)
[2024-10-29] MEDS: Pantoprazole Sodium 20 MG Tablet PO (09:38)
[2024-10-29] MEDS: Furosemide 40 MG/4 ML Vial IV ×2 (09:38→18:09)
[2024-10-29] MEDS: Potassium Chloride Oral Tablet 20 MEQ 40 MEQ PO (09:38)
[2024-10-29] MEDS: Tamsulosin HCl 0.4 MG Capsule PO (09:38)
[2024-10-29] MEDS: Finasteride 5 MG Tablet PO (09:38)
[2024-10-29] MEDS: APIXABAN 5 MG TABLET PO ×2 (09:38→21:51)
[2024-10-29] MEDS: Gabapentin 600 MG Tablet 1800 MG PO ×2 (09:43→21:51)
[2024-10-29 10:15] VITALS: O2SAT 91
[2024-10-29 12:45] VITALS: BP 121/69; PULSE 69; RESP 16; TEMP 36.7; O2SAT 89
--- NOTE | 2024-10-29 14:19 | CHAPLAIN ---
Type of Pastoral Visit _x__ Initial Visit ___ Follow-up Visit ___ On-call Visit ___ General Patient Visit ___ Spiritual Assessment ___ Family Conference ___ Bereavement ___ Rapid Response ___ Code Blue ___ Other (describe below) Pastoral Care Referral From _x__ Patient _x__ Family ___ Nurse ___ Physician ___ Team Truck Driver ___ Shop Lead ___ Other (describe below) Sacrament/Intervention _x__ Active listening ___ Anointing ___ Gnosticism ___ Bereavement ___ Communion _x__ Myesha exploration ___ _x__ Life review _x__ Prayer ___ Reconciliation ___ Sacrament of Sick _x__ Supportive presence ___ Wedding ___ Other (describe below) Pastoral Comments patient and spouse are welcoming and give updates on patient's health journey; pt is continually looking to his to complete his thoughts and sentences as he seems to have memory issues and a loss of details, names, and times; pt does engage in conversation and relates life stories; pt is spiritually minded and desires prayer for support; pt and spouse both acknowledge appreciation for the time given to them
--- NOTE | 2024-10-29 14:22 | CASEMGMT ---
RN LALITO updated by therapy that patient ambulated SBA 140ft. RN CM called and discussed needs at discharge. states she does not feel that patient will need HHC at discharge and declined further needs at discharge. RN CM reviewed that patient may need oxygen at discharge. is prefers [employer] if oxygen needed. had no other questions or concerns. HASEEB STARKEY updated patient regarding plan and is agreeable and had no further questions. Green sheet placed on chart for possible home oxygen.
[2024-10-29 16:45] VITALS: BP 117/51; PULSE 58; RESP 16; TEMP 36.8; O2SAT 98
[2024-10-29 21:45] VITALS: BP 127/51; PULSE 62; RESP 18; TEMP 36.5; O2SAT 94
[2024-10-29] MEDS: traZODone 50 MG Tablet PO (21:51)
[2024-10-30] VITALS (7 sets, daily range): BP systolic 112–123; BP diastolic 54–94; PULSE 59–65; RESP 18–20; TEMP 36.3–36.6; O2SAT 86–96; BMI 40.3
[2024-10-30] MEDS: Levothyroxine 175 MCG Tablet PO (06:26)
[2024-10-30 06:33] LABS: Anion Gap 9 (5-15); BUN 34 mg/dL (4-19); BUN/Creat Ratio 29.1 RATIO (10-20); Calcium,Total 8.5 mg/dL (7.6-11.0); Chloride 99 mmol/L (98-108); Creatinine, Serum 1.15 mg/dL (0.70-1.20); EST Glomerular Filtration Rate 63 (>60); Estimated Creatinine Clearance 66.02 ml/min (50-250); Glucose 132 mg/dL (70-99); Potassium 3.5 mmol/L (3.3-5.1); Sodium Level 141 mmol/L (133-145)
--- NOTE | 2024-10-30 07:46 | PN.HOSP_ITS ---
Reason for Visit Reason for Visit: Diagnoses Heart failure, unspecified (10/28/24) Subjective Subjective Breathing well. Objective Data Objective Data Vital Signs: Vital Signs Temp Pulse Resp BP Pulse Ox O2 Del Method O2 Flow Rate 36.6 C 62 19 H 123/79 H 95 Nasal Cannula 3 10/30/24 03:15 10/30/24 03:15 10/30/24 03:15 10/30/24 03:15 10/30/24 03:15 10/30/24 03:19 10/30/24 03:19 FiO2 95 10/28/24 08:46 Oxygen Flow Rate (L/min) 3 Oxygen Delivery Method Nasal Cannula Weight: 131.1 kg Body Mass Index (BMI) 52.0 Intake & Output: Intake and Output for Last 24 Hours 10/28/24 10/29/24 10/30/24 23:59 23:59 23:59 Intake Total 440 / 440 400 / 400 0 / 0 Output Total 1585 / 1585 1450 / 1450 300 / 300 Balance -1145 / -1145 -1050 / -1050 -300 / -300 Lab / Micro Data 10/29/24 04:38 10/30/24 05:20 Labs: Laboratory Results - last 24 hr 10/30/24 05:20: Sodium 141, Potassium 3.5, Chloride 99, Carbon Dioxide 33.0 H, Anion Gap 9, BUN 34 H, Creatinine 1.15, Estim Creat Clear Calc 66.02, Est GFR (MDRD) Non-Af 63, BUN/Creatinine Ratio 29.1 H, Glucose 132 H, Calcium 8.5 Micro: Microbiology 10/28/24 09:30 Mucosa - Nose SARS-CoV-2, Influenza & RSV (PCR) - Final Radiography Diagnostic Testing: Radiology Impression Echocardiogram 10/28/24 14:49 Interpretation Summary The study was technically difficult. Mild concentric left ventricular hypertrophy. The LV systolic function is normal. EF is 55 %. Stage 3 diastolic dysfunction. Trivial to mild mitral valve regurgitation. Mild tricuspid valve insufficiency. Right ventricular systolic pressure estimated to be 44 mmHg. Mildly dilated aortic root. Ordering Physician: Jonh Shen Referring Physician: Jose Maurice Performed By: Bharati Pabon RDCS, RVT Physical Exam Const alert and no apparent distress HEENT head/scalp atraumatic and moist oral mucous membranes Resp normal respiratory effort, no retractions, no use of accessory muscles and clear to auscultation bilaterally Cardio regular rate, regular rhythm, S1 normal heart sound and S2 normal heart sound GI normal to inspection, nondistended, normoactive bowel sounds, soft to palpation, non-tender and non-distended Extremity General Extremity: edema bilateral lower extremity Assessment & Plan Assessment/Plan (1) Congestive heart failure: PLAN: Acute HFpEF Patient's weight has gone up roughly 6 kg since August. Continue with IV furosemide. I did a bedside POCUS and was concerning for some LV hypokinesis but limited windows due to body habitus so we will check a formal echocardiogram. Fluid restrict, daily weights. Echo shows an EF 55% with stage 3 DD. RVSP 44mmHg. on 10/29 I discussed with the patient's and dtr about the echo findings and the pulmonary hypertension. I told him that the pulmonary hypertension with the exception of young females is secondary to something. I inquired about sleep apnea which patient states that he has been evaluated and deemed positive for sleep apnea but he did not feel he actually has sleep apnea because he could not tolerate CPAP. I explained to he and his family that that is not a means of diagnosing sleep apnea other than he cannot tolerate CPAP. And daughter asked how to you delineate the degree of pulmonary hypertension due to heart failure and sleep apnea, I told him that we cannot but that he should be treated for sleep apnea if we want to overall treat him. If he is unable to tolerate CPAP then he may be evaluated for an inspire device or a UPPP surgery. In the meantime we will continue with diuresis while he is here. And also I tried to a part of the patient in regards to taking control over his medical care in regards to fluid restriction, daily weights salt restriction. I could not get a good sense from the patient's demeanor if that is something that he is interested in or not. PLAN: Plan Chronic conditions * Obesity class III with a BMI 52. Complicates care and recovery. * Atrial fibrillation: Status post pacemaker. On apixaban. * Depression: Continue duloxetine * BPH continue with tamsulosin and finasteride * Hypertension: Stable continue lisinopril * Hypothyroidism: Continue levothyroxine VTE prophylaxis: Not indicated as patient is already on anticoagulation. CODE STATUS: Addressed with the patient. Patient wishes to be full code. Charges/Coding Visit Charges Inpatient E&M: 66421 [facility] Hosp L2
[2024-10-30] MEDS: Furosemide 40 MG/4 ML Vial IV ×2 (09:03→18:00)
[2024-10-30] MEDS: APIXABAN 5 MG TABLET PO ×2 (09:03→21:07)
[2024-10-30] MEDS: Finasteride 5 MG Tablet PO (09:03)
[2024-10-30] MEDS: Pravastatin 20 MG Tablet PO (09:04)
[2024-10-30] MEDS: Tamsulosin HCl 0.4 MG Capsule PO (09:04)
[2024-10-30] MEDS: Potassium Chloride Oral Tablet 20 MEQ 40 MEQ PO (09:04)
[2024-10-30] MEDS: DULoxetine Hcl 30 MG Capsule PO (09:04)
[2024-10-30] MEDS: Pantoprazole Sodium 20 MG Tablet PO (09:04)
[2024-10-30] MEDS: Gabapentin 600 MG Tablet 1800 MG PO ×2 (09:07→21:07)
[2024-10-30] MEDS: traZODone 50 MG Tablet PO (21:07)
[2024-10-31 02:20] VITALS: BP 128/75; PULSE 66; RESP 16; TEMP 36.5; O2SAT 97
[2024-10-31 05:40] LABS: Anion Gap 10 (5-15); BUN 35 mg/dL (4-19); BUN/Creat Ratio 33.8 RATIO (10-20); Calcium,Total 8.8 mg/dL (7.6-11.0); Carbon Dioxide 31.5 mmol/L (21.0-32.0); Chloride 99 mmol/L (98-108); Creatinine, Serum 1.03 mg/dL (0.70-1.20); EST Glomerular Filtration Rate 72 (>60); Estimated Creatinine Clearance 73.72 ml/min (50-250); Glucose 115 mg/dL (70-99); Potassium 3.4 mmol/L (3.3-5.1); Sodium Level 141 mmol/L (133-145)
[2024-10-31] MEDS: Levothyroxine 175 MCG Tablet PO (05:54)
[2024-10-31 07:52] VITALS: BMI 37.5
[2024-10-31 08:18] VITALS: BP 121/63; PULSE 65; RESP 18; TEMP 36.6; O2SAT 95
--- NOTE | 2024-10-31 08:44 | PCM.PN.HOSP ---
Reason for Visit Reason for Visit: Diagnoses Heart failure, unspecified (10/28/24) Subjective Subjective Feeling well. Objective Data Objective Data Vital Signs: Vital Signs Temp Pulse Resp BP Pulse Ox O2 Del Method O2 Flow Rate 36.6 C 65 18 121/63 H 95 Nasal Cannula 2 10/31/24 08:18 10/31/24 08:18 10/31/24 08:18 10/31/24 08:18 10/31/24 08:18 10/31/24 08:18 10/31/24 08:18 FiO2 95 10/28/24 08:46 Oxygen Flow Rate (L/min) 2 Oxygen Delivery Method Nasal Cannula Weight: 122.152 kg Body Mass Index (BMI) 37.5 Intake & Output: Intake and Output for Last 24 Hours 10/29/24 10/30/24 10/31/24 23:59 23:59 23:59 Intake Total 400 / 400 250 / 250 Output Total 1450 / 1450 1150 / 1750 950 / 950 Balance -1050 / -1050 -900 / -1500 -950 / -950 Lab / Micro Data 10/29/24 04:38 10/31/24 04:05 Labs: Laboratory Results - last 24 hr 10/30/24 04:38: Hemoglobin A1c 6.0 H 10/31/24 04:05: Sodium 141, Potassium 3.4, Chloride 99, Carbon Dioxide 31.5, Anion Gap 10, BUN 35 H, Creatinine 1.03, Estim Creat Clear Calc 73.72, Est GFR (MDRD) Non-Af 72, BUN/Creatinine Ratio 33.8 H, Glucose 115 H, Calcium 8.8 Micro: Microbiology 10/28/24 09:30 Mucosa - Nose SARS-CoV-2, Influenza & RSV (PCR) - Final Physical Exam Const alert and no apparent distress HEENT head/scalp atraumatic and moist oral mucous membranes Resp normal respiratory effort, no retractions, no use of accessory muscles and clear to auscultation bilaterally Cardio regular rate, regular rhythm, S1 normal heart sound and S2 normal heart sound GI normal to inspection, nondistended, normoactive bowel sounds, soft to palpation, non-tender and non-distended Neuro Sensorium / Orientation: awake and alert Assessment & Plan Assessment/Plan (1) Congestive heart failure: PLAN: Acute HFpEF Patient's weight has gone up roughly 6 kg since August. Continue with IV furosemide. Fluid restrict, daily weights. Nutrition following, to reeval. Echo shows an EF 55% with stage 3 DD. RVSP 44mmHg. Unclear what is dry weight is, but perhaps around 250lb (114 kg) Advised patient and his family about daily weights and keeping a record of that. (2) Diabetes mellitus, type 2: PLAN: a1c only 6. I don't recommend medication at this time, but diet-control PLAN: Plan Chronic conditions Obesity class III with a BMI 52. Complicates care and recovery. Atrial fibrillation: Status post pacemaker. On apixaban. Depression: Continue duloxetine BPH continue with tamsulosin and finasteride Hypertension: Stable continue lisinopril Hypothyroidism: Continue levothyroxine VTE prophylaxis: Not indicated as patient is already on anticoagulation. CODE STATUS: Addressed with the patient. Patient wishes to be full code.
[2024-10-31 10:00] VITALS: RESP 18
[2024-10-31] MEDS: DULoxetine Hcl 30 MG Capsule PO (10:20)
[2024-10-31] MEDS: Pravastatin 20 MG Tablet PO (10:20)
[2024-10-31] MEDS: APIXABAN 5 MG TABLET PO (10:20)
[2024-10-31] MEDS: Potassium Chloride Oral Tablet 20 MEQ 40 MEQ PO (10:20)
[2024-10-31] MEDS: Furosemide 40 MG/4 ML Vial IV (10:20)
[2024-10-31] MEDS: Pantoprazole Sodium 20 MG Tablet PO (10:20)
[2024-10-31] MEDS: Gabapentin 600 MG Tablet 1800 MG PO (10:20)
[2024-10-31] MEDS: 0.9% Saline Lock 10 ML Syringe IV (10:21)
[2024-10-31] MEDS: Finasteride 5 MG Tablet PO (10:21)
[2024-10-31] MEDS: Tamsulosin HCl 0.4 MG Capsule PO (10:21)
[2024-10-31 10:39] VITALS: O2SAT 95
--- NOTE | 2024-10-31 12:29 | DS.PCM_ITS ---
Providers Date of Admission: 10/28/24 Primary Care Physician: Dr. Jose Maurice MD Reason For Visit: CHF EXACERBATION Diagnosis Discharge Diagnosis (1) Congestive heart failure: Status: Acute Code(s): I50.9 - Heart failure, unspecified Plan: Acute HFpEF Patient's weight has gone up roughly 6 kg since August. Continue with IV furosemide. Fluid restrict, daily weights. Nutrition following, to reeval. Echo shows an EF 55% with stage 3 DD. RVSP 44mmHg. Unclear what is dry weight is, but perhaps around 250lb (114 kg) Advised patient and his family about daily weights and keeping a record of that. (2) Diabetes mellitus, type 2: Status: Acute Code(s): E11.9 - Type 2 diabetes mellitus without complications Plan: a1c only 6. I don't recommend medication at this time, but diet-control Plan Chronic conditions * Obesity class III with a BMI 52. Complicates care and recovery. * Atrial fibrillation: Status post pacemaker. On apixaban. * Depression: Continue duloxetine * BPH continue with tamsulosin and finasteride * Hypertension: Stable continue lisinopril * Hypothyroidism: Continue levothyroxine VTE prophylaxis: Not indicated as patient is already on anticoagulation. CODE STATUS: Addressed with the patient. Patient wishes to be full code. Medications at Discharge Home Medications pravastatin 20 mg tablet 20 mg PO DAILY Cholesterol 05/09/15 tamsulosin 0.4 mg capsule 0.4 mg PO DAILY Urine retention 05/09/15 trazodone 50 mg tablet 50 mg PO QHS sleep 05/09/15 cyanocobalamin (vitamin B-12) 1,000 mcg tablet 1,000 mcg PO DAILY supplement 04/14/24 duloxetine 30 mg capsule,delayed release 30 mg PO DAILY . 04/14/24 finasteride 5 mg tablet 5 mg PO DAILY BPH 04/14/24 gabapentin 600 mg tablet 1,800 mg PO Q12H neuropathy 04/14/24 trfqeeud-ju-llcyh 300 mcg-K 60 mcg-lycop 600 mcg-lutein 300 mcg tablet (Centrum Silver Men) 1 tab PO DAILY supplement 04/14/24 potassium chloride 20 mEq tablet,extended release(part/cryst) 20 meq PO DAILY supplement 04/14/24 vitamins A,C,C-bfsg-hvecuw 2,148 mcg-113 mg-45 mg-17.4 mg tablet (Eye Multivitamin) 1 tab PO BID supplement 04/14/24 zinc gluconate 50 mg tablet 50 mg PO DAILY supplement 06/08/24 lisinopril 2.5 mg tablet 2.5 mg PO DAILY BP 06/14/24 apixaban 5 mg tablet (Eliquis) 5 mg PO BID #60 tabs 09/07/24 albuterol sulfate 90 mcg/actuation aerosol inhaler 2 inh inhalation Q4H PRN shortness of breath or wheezing 10/27/24 benzonatate 200 mg capsule 200 mg PO TID PRN cough #20 caps 10/27/24 levothyroxine 175 mcg tablet 175 mcg PO DAILY 10/27/24 omeprazole 20 mg capsule,delayed release 20 mg PO DAILY 10/27/24 furosemide 40 mg tablet 40 mg PO DAILY #30 tabs 10/31/24 Hospital Course Operations None Procedures 2-D Echocardiogram Summary of Care Provided Minutes Spent on Discharge: 35 Hospital Course: Patient presents with shortness of breath. We was in CHF exacerbation. He was diuresed with IV furosemide. Reviewing his records, his weight had gone up about 6 kg since August. Patient advised to weigh self daily and keep a record, fluid restrict 1.5 liters/day, salt restrict. Weight / BMI Weight Weight: 122.152 kg Body Mass Index (BMI) 37.5 ABG / Lab / Microbiology Data 10/29/24 04:38 10/31/24 04:05 Laboratory: Laboratory Results - last 24 hr 10/30/24 04:38: Hemoglobin A1c 6.0 H 10/31/24 04:05: Sodium 141, Potassium 3.4, Chloride 99, Carbon Dioxide 31.5, Anion Gap 10, BUN 35 H, Creatinine 1.03, Estim Creat Clear Calc 73.72, Est GFR (MDRD) Non-Af 72, BUN/Creatinine Ratio 33.8 H, Glucose 115 H, Calcium 8.8 Microbiology: Microbiology 10/28/24 23:00 Urine, Clean Catch Urine Culture - Final Culture exhibits no growth. 10/28/24 09:30 Mucosa - Nose SARS-CoV-2, Influenza & RSV (PCR) - Final D/C Instructions Discharge Diet: 2000 Calorie Control Diet and - (1.5 liters fluid per day.) DC O2, CPAP, BIPAP Needs Home O2 Discharge instructions: No DC home with Oxygen: No Meaningful Use Info Meaningful Use Meaningful Use Diagnoses (Choose all that apply): None applicable CHF JOSE A/ARB ordered at discharge?: Yes Documented LVEF (%): 55 Ischemic Stroke Statin Dosing Therapy Reference: STATIN DOSE THERAPY REFERENCE: * Patients > 75 years receive moderate or high dose statin therapy. * Patients 75 years or YOUNGER should receive HIGH intensity statin dose unless contraindicated. You will be required to document reason for non-treatment if statin daily dose does not meet guidelines. HIGH DOSE STATIN THERAPY DAILY Atorvastatin > than or = to 40 mg Rosuvastatin > than or = to 20 mg Amlodipine + Atorvastatin > than or = to 2.5/40 mg Ezetimibe + Simvastatin 10/80 mg Simvastatin 80mg Discharge Plan Admission Admit Date/Time: 10/28/24 10:40 Primary Reason for Your Visit: heart failure Attending Provider: Jonh Shen Primary Care Provider: Jose Maurice Instructions Patient Instructions: Heart Failure Meds, Heart Failure Flare Up Signs, Heart Failure: Tracking Your Weight, Heart Failure Make Changes Diet, Heart Failure: Medications to Help Your Heart, Heart Failure Dc, Heart Failure: Know Your Baselines Discharge Orders/Prescriptions Prescriptions: New furosemide 40 mg tablet 40 mg PO DAILY Qty: 30 0RF Continued cyanocobalamin (vitamin B-12) 1,000 mcg tablet 1,000 mcg PO DAILY potassium chloride 20 mEq tablet,ER particles/crystals 20 meq PO DAILY finasteride 5 mg tablet 5 mg PO DAILY duloxetine 30 mg capsule,delayed release(DR/EC) 30 mg PO DAILY lisinopril 2.5 mg tablet 2.5 mg PO DAILY trazodone 50 MG tablet 50 mg PO QHS tamsulosin 0.4 MG capsule 0.4 mg PO DAILY pravastatin 20 MG tablet 20 mg PO DAILY Eye Multivitamin 2,148 mcg-113 mg-45 mg-17.4mg tablet 1 tab PO BID Rx Instructions: administer with AM and PM meals Centrum Silver Men [id number] mcg tablet 1 tab PO DAILY gabapentin 600 mg tablet 1,800 mg PO Q12H albuterol sulfate 90 mcg/actuation HFA aerosol inhaler 2 inh inhalation Q4H PRN (Reason: shortness of breath or wheezing) levothyroxine 175 mcg tablet 175 mcg PO DAILY omeprazole 20 mg capsule,delayed release(DR/EC) 20 mg PO DAILY benzonatate 200 mg capsule 200 mg PO TID PRN (Reason: cough) Qty: 20 0RF Patient Comments: started today zinc gluconate 50 mg tablet 50 mg PO DAILY Eliquis 5 mg tablet 5 mg PO BID Qty: 60 11RF Discontinued amoxicillin-pot clavulanate 875-125 mg tablet 1 tab PO BID Qty: 14 0RF Patient Comments: pt started 10/27/24 Other Ambulatory Orders: Glucometer (Routine) Timeframe: 1 Day Location: Determined by Patient Ordered By: Dr. Jonh Shen Referrals / Follow Up: [facility] [Provider Group] - Within 1 Month Jose Maurice MD [Primary Care Provider] - Within 2 Weeks Disposition Disposition (needs filled in before D/C Order can be placed): Home, Self Care Charges/Coding Visit Charges Inpatient E&M: 19158 Disch Hosp >30min
[2024-10-31 12:48] VITALS: O2SAT 87; O2SAT 92; O2SAT 95
[2024-10-31 15:07] VITALS: BP 120/68; PULSE 64; RESP 18; TEMP 36.3; O2SAT 96
== END 2024-10-31 16:01 | disposition home or self-care (01) | DRG 291 ==
LOC: ED 10:59 → PCU 13:49
PROVIDERS: Internal Medicine; Emergency Provider Emergency Medicine; PCP Family Medicine
DX: I11.0 Hypertensive heart disease with heart failure (principal); I50.31 Acute diastolic (congestive) heart failure; J18.9 Pneumonia, unspecified organism; I48.19 Other persistent atrial fibrillation; Z68.43 Body mass index [BMI] 50.0-59.9, adult; D69.6 Thrombocytopenia, unspecified; Z79.01 Long term (current) use of anticoagulants; E11.65 Type 2 diabetes mellitus with hyperglycemia; E03.9 Hypothyroidism, unspecified; F32.A Depression, unspecified; E78.00 Pure hypercholesterolemia, unspecified; I44.0 Atrioventricular block, first degree; R09.02 Hypoxemia; I49.3 Ventricular premature depolarization; E66.813 Obesity, class 3; Z79.890 Hormone replacement therapy; Z11.52 Encounter for screening for COVID-19; Z95.0 Presence of cardiac pacemaker; Z79.899 Other long term (current) drug therapy; Z79.02 Long term (current) use of antithrombotics/antiplatelets; Z79.51 Long term (current) use of inhaled steroids; N40.0 Benign prostatic hyperplasia without lower urinary tract symptoms
CPT/HCPCS: 36415; 36600; 71045; 71046; 80048; 81001; 82803; 83036; 83880; 84484; 85025; 87086; 87631; 93005; 93306; 94640; 96360; 97116; 97161; 97166; 97530; 97535; 97802; 99284; 99285; Q9957; A4216; C8929; J1938

== ENCOUNTER → 2024-11-29 | Outpatient (CLI) | payer MEDICARE, SELFPAY ==
--- OUTSIDE RECORDS SUMMARY | 2024-11-29 06:58 | XMS RPT_ITS | CCD ---
Author Organization [facility] Care Team Providers Care Zipper Slide Attacher Name Role Phone Jose Fam MD Primary Care Provider Dr. Jose Fam Primary Care Provider Dr. Jose Fam Referring Provider Dr. Valente Campoverde Attending Provider Jose Fam MD Primary Care Provider JOSE FAM MD Primary Care Physician [phone] HERI MEREDITH Attending Unavailable JOSAFAT GUZMAN., JOSE Garrison Primary Care Unavailabl e Jose Fam MD Primary Care Provider Jose Fam MD Primary Care Provider ANGE VERDUZCO Admitting Unavailable ANGE VERDUZCO Attending Unavailable JOSE FAM Primary Care Unavailable Julian SEN.Valerie FREGOSO Unavailable Phoebe Muro PA-C Unavailable Dr. Jose Fam MD Primary Care Provider Dr. Jose Fam MD Referring Provider Dr. Valente Campoverde DO Attending Provider Dr. Valente Campoverde DO Other Provider [phone] Dr. Adryan Estrada MD Attending Provider Dr. Adryan Estrada MD Emergency Provider Mely GUZMAN, Dr. Bazan Attending Provider Dr. Adryan Estrada MD Referring Provider Malika Ochoa Attending Provider Baldo GUZMAN, Dr. Renteria Attending Provider Baldo GUZMAN, Dr. Renteria Referring Provider Baldo GUZMAN, Dr. Renteria Emergency Provider Jana Virgen Attending Provider Unavailable Jaguar PEDROZA, Malika Ko Referring Provider Kallie GUZMAN, Dr. Grier Other Provider Kallie GUZMAN, Dr. Grier Attending Provider Kallie GUZMAN, Dr. Grier Referring Provider Mely GUZMAN, Dr. Bazan Admit Provider Salomon ORTIZ, Dr. Barraza Attending Provider Balta GUZMAN, Dr. Simeon Adams Admit Provider Balta GUZMAN, Dr. Simeon Adams Attending Provider Balta GUZMAN, Dr. Simeon Adams Referring Provider Balta GUZMAN, Dr. Simeon Adams Other Provider Lisa GUZMAN, Dr. Alfredito Garrison Attending Provider Dayo GUZMAN, Dr. Borja Attending Provider Josafat GUZMAN, Dr. Garcia Primary Care Provider Malika Ochoa Attending Provider Mely GUZMAN, Dr. Bazan Attending Provider Dr. Jose Fam MD Referring Provider Nirali ORTIZ, Dr. Victor Attending Provider Nirali ORTIZ, Dr. Victor Other Provider Jana Virgen Attending Provider Unavailable Dr. Celina Wood DO Emergency Provider Albert Swan MD Emergency Provider Dr. Jonh Shen DO Admit Provider Dr. Jonh Shen DO Attending Provider Dr. Jonh Shen DO Other Provider [phone] Isiah GUZMAN, Dr. Urena Attending Provider Jacques MEMBRENO, Elham Unavailable Josafat, Jose Primary Care Unavailable Estrada, Adryan Attending Unavailable Montebello, Marvel Referring Unavailable Josafat, Jose Primary Care Unavailable Mely, Haines Attending Unavailable Savana Khan Attending Unavailable Josafat, Jose Referring Unavailable Josafat, Jose Primary Care Unavailable Josafat, Jose Primary Care Unavailable Josafat, Jose Referring Unavailable Friend, Valente Consulting Unavailable Friend, Valente Attending Unavailable Josafat, Jose Primary Care Unavailable Montebello, Marvel Referring Unavailable Montebello, Marvel Attending Unavailable Mely, Beni Admitting Unavailable Friend, Valente Attending Unavailable Josafat, Jose Primary Care Unavailable Josafat, Jose Referring Unavailable Josafat, Jose Primary Care Unavailable Josafat, Jose Attending Unavailable Josafat, Jose Referring Unavailable Josafat, Jose Primary Care Unavailable Jessica Penn Admitting Unavailable Jessica Penn Consulting Unavailable Jonh Shen Attending Unavailable Josafat, Jose Primary Care Unavailable Jonh Shen Admitting Unavailable Jonh Shen Attending Unavailable Josafat, Jose Primary Care Unavailable Balta, Simeon Chi Attending Unavailable Balta, Simeon Chi Referring Unavailable Josafat, Jose Primary Care Unavailable Jenn Cartagena Attending Unavailable Josafat, Jose Primary Care Unavailable Celina Wood Attending Unavailable Estrada, Adryan Attending Unavailable Josafat, Jose Primary Care Unavailable Josafat, Jose Primary Care Unavailable Dexter Bland Attending Unavailable Dexter Bland Referring Unavailable Josafat, Jose Primary Care Unavailable Balta, Simeon Chi Attending Unavailable Balta, Simeon Chi Referring Unavailable Josafat, Jose Primary Care Unavailable Balta, Simeon Chi Attending Unavailable Balta, Simeon Chi Referring Unavailable Josafat, Jose Primary Care Unavailable Josafat, Jose Referring Unavailable Friend, Valente Attending Unavailable Josafat, Jose Referring Unavailable Ojsafat, Jose Primary Care Unavailable Mely, Haines Attending Unavailable Josafat, Jose Primary Care Unavailable Mely, Haines Attending Unavailable Josafat, Jose Primary Care Unavailable Jana Virgen Attending Unavailable Josafat, Jose Referring Unavailable Josafat, Jose Primary Care Unavailable Estrada, Adryan Referring Unavailable Mely, Haines Attending Unavailable Josafat, Jose Primary Care Unavailable Malika Ochoa Attending Unavail able Malika Ochoa Referring Unavail able Montebello, Marvel Consulting Unavailable Mely, Haines Admitting Unavailable Josafat, Jose Primary Care Unavailable Montebello, Marvel Referring Unavailable Montebello, Marvel Consulting Unavailable Malika Ochoa Attending Unavail able Christi Latif Attending Unavailable Valente Campoverde Consulting Unavailable Valente Campoverde Attending Unavailable Josafat, Jose Primary Care Unavailable Josafat, Jose Referring Unavailable Josafat, Jose Primary Care Unavailable Mely, Beni Attending Unavailable Josafat, Jose Primary Care Unavailable Josafat, Jose Referring Unavailable Savana Khan Attending Unavailable Josafat, Jose Referring Unavailable Josafat, Jose Primary Care Unavailable Mely Haines Attending Unavailable Josafat, Jose Primary Care Unavailable Janey Park NP Attending Unavailable Josafat, Jose Referring Unavailable Josafat, Jose Primary Care Unavailable Josafat, Jose Referring Unavailable Malika Ochoa Attending Unavail able Josafat, Jose Primary Care Unavailable Josafat, Jose Referring Unavailable Jana Virgen Attending Unavailable Josafat, Jose Primary Care Unavailable Mely, Haines Attending Unavailable Josafat, Jose Primary Care Unavailable Jessica Penn Consulting Unavailable Jessica Penn Admitting Unavailable Jonh Shen Attending Unavailable Staceyeri, Jonh Consulting Unavailable Josafat, Jose Primary Care Unavailable Jopperi, Jonh Admitting Unavailable Jopperi, Jonh Consulting Unavailable Hermelinda Jonh Attending Unavailable Valente Campoverde Attending Unavailable Balta, Simeon Chi Consulting Unavailable Josafat, Jose Primary Care Unavailable Balta, Simeon Chi Referring Unavailable Balta, Simeon Chi Admitting Unavailable Jessica Penn Attending Unavailable Jonh Oshea Attending Unavailable Josafat, Jose Primary Care Unavailable Balta, Simeon Chi Referring Unavailable Josafat, Jose Primary Care Unavailable Jonh Oshea Attending Unavailable Balta, Simeon Chi Referring Unavailable Josafat, Jose Primary Care Unavailable Ayanna Joyce Attending Unavailable Josafat, Jose Primary Care Unavailable Balta, Simeon Chi Attending Unavailable Balta, Simeon Chi Referring Unavailable Balta, Simeon Chi Admitting Unavailable Josafat, Jose Primary Care Unavailable Crescencio Caldwell Attending Unavailable JOSAFAT, JOSE A Primary Care Unavailable VALERIE DESHPANDE Attending Unavailable JOSAFAT, JOSE A Referring Unavailable JOSAFAT, JOSE A Primary Care Unavailable JOSAFAT, JOSE A Referring Unavailable JOSAFAT, JOSE A Primary Care Unavailable JOSAFAT, JOSE A Attending Unavailable JOSAAFT, JOSE A Primary Care Unavailable JOSAFAT, JOSE A Referring Unavailable JOSAFAT, JOSE A Primary Care Unavailable JOSAFAT, JOSE A Referring Unavailable JOSAFAT, JOSE A Primary Care Unavailable JOSAFAT, JOSE A Primary Care Unavailable DAX, ANGE P Referring Unavailable JOSAFAT, JOSE A Primary Care Unavailable DAX, ANGE P Referring Unavailable JOSAFAT, JOSE A Referring Unavailable JOSAFAT, JOSE A Primary Care Unavailable DAX, ANGE P Attending Unavailable JOSAFAT, JOSE A Referring Unavailable JOSAFAT, JOSE A Primary Care Unavailable VALERIE DESHPANDE Attending Unavailable JOSAFAT, JOSE A Primary Care Unavailable JOSAFAT, JOSE A Primary Care Unavailable VALERIE DESHPANDE Attending Unavailable JOSAFAT, JOSE A Attending Unavailable JOSAFAT, JOSE A Primary Care Unavailable JOSAFAT, JOSE A Primary Care Unavailable JOSAFAT, JOSE A Referring Unavailable JOSAFAT, JOSE A Primary Care Unavailable JOSAFAT, JOSE A Referring Unavailable JOSAFAT, JOSE A Primary Care Unavailable JOSAFAT, JOSE A Primary Care Unavailable ARI BAUTISTA Attending Unavailable JOSAFAT, JOSE A Primary Care Unavailable PHOEBE MURO Attending Unavailable JOSAFAT, JOSE A Attending Unavailable JOSAFAT, JOSE A Primary Care Unavailable JOSAFAT, JOSE A Primary Care Unavailable VALERIE DESHPANDE Referring Unavailable JOSAFAT, JOSE A Primary Care Unavailable VALERIE DESHPANDE Referring Unavailable JOSAFAT, JOSE A Primary Care Unavailable VALERIE DESHPANDE Attending Unavailable JOSAFAT, JOSE A Primary Care Unavailable VALERIE DESHPANDE Referring Unavailable RYANN DIAZ Attending Unavailable JOSAFAT, JOSE A Primary Care Unavailable VALERIE DESHPANDE Attending Unavailable JOSAFAT, JOSE A Primary Care Unavailable CANDICE KAHN Referring Unavailable JOSAFAT, JOSE A Primary Care Unavailable CANDICE KAHN Referring Unavailable JOSAFAT, JOSE A Primary Care Unavailable JOSAFAT, JOSE A Referring Unavailable JOSAFAT, JOSE A Primary Care Unavailable JOSAFAT, JOSE A Primary Care Unavailable ELLA JOSED MELOUD Referring Unavailable JAKE ZEESHANJASON GE Attending Unavailable JOSE FAM Attending Unavailable JOSE FAM Primary Care Unavailable JOSE FAM Attending Unavailable JOSE FAM Primary Care Unavailable JOSE FAM A Referring Unavailable JOSE FAM A Primary Care Unavailable JENN FAMREY A Referring Unavailable JENN FAMREY A Primary Care Unavailable JOSE FAM A Referring Unavailable JOSE FAM A Primary Care Unavailable JOSE FAM A Attending Unavailable JOSE FAM A Primary Care Unavailable JOSE FAM A Attending Unavailable JOSE FAM Primary Care Unavailable JOSE FAM A Attending Unavailable JOSE FAM A Primary Care Unavailable Julian SEN.ZENOBIA, Valerie Unavailable Bhaskar MCCALLUM, Phoebe Unavailable Allergies Allergy Classification Reported Allergen(s) Allergy Type Date of Onset Reaction(s) Facility Corticosteroids (2 sources) predniSONE Drug Allergy 8 Other: See Comments [facility] oxybutynin (2 sources) oxybutynin Drug Allergy 0 Other: See Comments [facility] Work Phone: (20 sources) oxybutynin; Translations: [OXYBUTYNIN] Drug Allergy 0 Other: See Comments [facility] Work Phone: Comment on above: BRAIN FOG, WEAKNESS, DECREASED APPETITE (20 sources) predniSONE; Translations: [prednisone] Drug Allergy 8 Other: See Comments [facility] Work Phone: (1 source) oxybutynin Drug Allergy 5 [facility] Repository (1 source) predniSONE Drug Allergy 5 [facility] Repository Medications Current Medications Medication Drug Class(es) Dates Sig (Normalized) Sig (Original) acetaminophen 325 mg / oxyCODONE hydrochloride 5 mg oral tablet (2 sources) Opioid Agonist Start: 02-25-2024 End: 03-01-2024 take 1 tablet by mouth every six hours as needed oxyCODONE-acetami nophen (PERCOCET) 5-325 mg tablet Indications: Gall bladder stones Take 1 tablet by mouth every 6 hours as needed for up to 5 days. 20 tablet 02/25/2024 03/01/2024 Active [id number] 200 actuat albuterol 0.09 mg/actuat metered dose inhaler (19 sources) beta2-Adrenergic Agonist Start: 10-27-2024 Albuterol Sulfate 90 mcg/actuation HFA aerosol inhaler Active 2 NMA INHALATION Q4H as needed for shortness of breath or wheezing October 27, 2024 12:00am Start: 10-26-2024 End: 11-25-2024 take 2 puff(s) by inhalation every four hours as needed for wheezing albuterol HFA (PROVENTIL HFA, VENTOLIN HFA) 90 mcg/actuation inhaler Indications: Wheezing Inhale 2 puffs as instructed every 4 hours as needed for wheezing/shortness of breath. 1 each 10/26/2024 11/25/2024 Active apixaban 5 mg oral tablet (20 sources) Factor Xa Inhibitor Start: 06-14-2024 End: 09-14-2024 apixaban (ELIQUIS) 5 mg tab(s) Take 1 tablet by mouth two times a day. Per [facility] 09/14/2024 Active ascorbic acid 113 mg / beta carotene 7160 mg / cuprous oxide 0.4 mg / dl-alpha tocopheryl acetate 100 unt / zinc oxide 17.4 mg oral tablet (7 sources) Vitamin C Start: 04-14-2024 Vitamins A,C,T-Ahba-Sbnbec (Eye Multivitamin) 2,148 mcg-113 mg-45 mg-17.4mg tablet Active 1 {tbl} PO TWICE A DAY April 14, 2024 12:00am administer with AM and PM meals benzonatate 200 mg oral capsule (3 sources) Non-narcotic Antitussive Start: 10-27-2024 take 1 capsule by mouth three times daily as needed for cough Benzonatate 200 mg capsule Active 200 mg PO THREE TIMES A DAY as needed for cough October 27, 2024 12:00am clotrimazole 10 mg/ml topical cream (3 sources) Azole Antifungal Start: 03-01-2024 End: 03-15-2024 clotrimazole (LOTRIMIN) 1 % cream Indications: Yeast infection of the skin Apply to affected area two times a day for 14 days. 24 g 03/01/2024 03/15/2024 Active COMPOUNDED PRESCRIPTION (20 sources) Start: 04-22-2016 COMPOUNDED PRESCRIPTION leonor ch #: one Dx: I63.50, Z86.73, R26.89, G60.9, M62.81 and M48.06 1 Device 0 04/22/2016 Active Comment on above: leonor ch #: one Dx: I63.50, Z86.73, R26.89, G60.9, M62.81 and M48.06 doxycycline hyclate 100 mg oral tablet (3 sources) Tetracycline-class Drug Start: 07-01-2022 End: 07-11-2022 take 1 tablet by mouth twice daily doxycycline (VIBRA-TABS) 100 mg tablet Take 1 tablet by mouth twice daily for 10 days. 20 tablet 0 07/01/2022 07/11/2022 Active Comment on above: Take 1 tablet by jewell twice daily for 10 days. DULoxetine 30 mg delayed release oral capsule (20 sources) Serotonin and Norepinephrine Reuptake Inhibitor Start: 03-03-2023 End: 12-29-2024 take 1 capsule by mouth once daily DULoxetine (CYMBALTA) 30 mg capsule Take 1 capsule by mouth once daily. 90 capsule 1 07/02/2024 12/29/2024 Active Start: 07-09-2021 End: 09-17-2022 take 1 capsule by mouth once daily DULoxetine (CYMBALTA) 30 mg capsule Take 1 capsule by mouth once daily. 90 capsule 1 03/21/2022 Active Comment on above: Take 1 capsule by mo [facility] once daily. finasteride 5 mg oral tablet (20 sources) 5-alpha Reductase Inhibitor Start: 07-09-2021 End: 01-02-2025 take 1 tablet by mouth once daily finasteride (PROSCAR) 5 mg tablet Indications: Urgency of urination , BPH associated with nocturia Take 1 tablet by mouth once daily. 90 tablet 10/04/2024 01/02/2025 Active Comment on above: Take 1 tablet by jewell once daily. furosemide 40 mg oral tablet (20 sources) Loop Diuretic Start: 09-02-2024 End: 10-27-2024 take 1 tablet by mouth once furosemide (LASIX) 40 mg tablet Take 1 tablet by mouth once daily. Per [facility] 09/14/2024 Active Start: 04-22-2024 End: 09-14-2024 take 1 tablet by mouth every other day Furosemide 20 mg tablet Discontinued 20 mg PO EVERY OTHER DAY June 08, 2024 1:00am September 02, 2024 7:24pm Start: 07-09-2021 End: 04-22-2024 take 1 tablet by mouth once daily furosemide (LASIX) 20 mg tablet Take 1 tablet by mouth once daily. 90 tablet 1 04/09/2023 04/22/2024 Discontinued (Adjust Sig - Block E-Cancel) Comment on above: Take 1 tablet by jewell th once daily. gabapentin 600 mg oral tablet (20 sources) Anti-epileptic Agent Start: 04-14-2024 take 3 tablets by mouth every twelve hours Gabapentin 600 mg tablet Active 1800 mg PO Q12H April 14, 2024 12:00am Start: 11-29-2022 End: 04-14-2024 take 1 tablet by mouth twice daily Gabapentin 600 mg tablet Discontinued 600 mg PO TWICE A DAY 4 2 November 29, 2022 12:00am April 14, 2024 8:09pm Start: 07-09-2021 End: 04-02-2025 take 2 tablets by mouth three times daily gabapentin (NEURONTIN) 600 mg tablet Take 2 tablets by mouth three times a day for 180 days. 540 tablet 1 10/04/2024 04/02/2025 Active Start: 05-09-2015 End: 04-14-2024 Gabapentin 800 MG tablet Discontinued 1200 mg PO THREE TIMES A DAY May 09, 2015 1:00am April 14, 2024 8:06pm Start: 05-09-2015 take 1200 mg by mout three times daily Gabapentin Active 1200 MG PO THREE TIMES A DAY May 09, 2015 1:00am Comment on above: Take 2 tablets by mo ut three times daily for 180 days. Take 2 tablets by mo uth three times a day for 14 days. Take 2 tablets by mo uth three times a day for 10 days. Inhalational Spacing Device (1 source) Start: End: Inhalational Spacing Device Indications: Wheezing 1 device one time only for 1 dose. 1 each 10/26/2024 10/26/2024 Active levothyroxine sodium 0.175 mg oral tablet (20 sources) l-Thyroxine Start: take 1 tablet by mouth once daily levothyroxine (LEVOXYL) 175 mcg tablet Indications: Acquired hypothyroidism Take one tab daily by mouth 90 tablet 1 09/15/2024 Active Start: 06-08-2024 End: 10-27-2024 Levothyroxine 125 mcg tablet Discontinued 125 ug PO MOTUWETHFR June 08, 2024 1:00am October 27, 2024 10:34am Start: 06-08-2024 End: 10-27-2024 Levothyroxine 200 mcg capsul e Discontinued 250 ug PO SUSA June 08, 2024 1:00am October 27, 2024 10:29am Start: 06-12-2023 End: 01-01-2024 levothyroxine (LEVOXYL) 125 mcg tablet Indications: Acquired hypothyroidism Take one tab daily Fri-Fri and two on Friday and FridayTake on empty stomach. For thyroid. 108 tablet 1 01/01/2024 Active Start: 12-06-2022 End: 04-09-2023 take 1 tablet by mouth once daily for thyroid dysfunction levothyroxine (LEVOXYL) 125 mcg tablet Indications: Acquired hypothyroidism Take 1 tablet by mouth once daily. Take on empty stomach. For thyroid. 90 tablet 1 01/07/2023 04/09/2023 Discontinued Start: 01-23-2022 End: 10-02-2022 levothyroxine (LEVOXYL) 50 m cg tablet Take 1/2 tab on Friday only along with a 150 mcg tab.Take on empty stomach. For Thyroid 12 tablet 1 06/27/2022 10/02/2022 Discontinued (Clinical Decision) Start: 07-09-2021 levothyroxine (LEVOXYL) 50 mcg tablet Take 1/2 tab on Friday only along with a 150 mcg tab.Take on empty stomach. For Thyroid 12 tablet 1 07/09/2021 Active Start: 05-09-2015 End: 06-08-2024 take 1 tablet by mouth once daily Levothyroxine 150 MCG tablet Discontinued 150 ug PO DAILY May 09, 2015 1:00am June 08, 2024 11:47am Comment on above: Take 1/2 tab on only along with a 150 mcg tab.Take on empty stomach. For Thyroid Take 1 tablet by jewell th once daily. Fri through Friday with extra 25 mcg tab on Sundays only Take 1 tablet by jewell th once daily. Take on empty stomach. For thyroid. Take 1 tablet by jewell th once daily. Take on empty stomach. For Thyroid Take one tab daily M on-Fri and two on FridayTake on empty stomach. For thyroid. Take one tab daily M on-Fri and two on Friday and FridayTake on empty stomach. For thyroid. mupirocin 0.02 mg/mg topical ointment (16 sources) RNA Synthetase Inhibitor Antibacterial Start: 05-11-2023 End: 05-21-2023 mupirocin (BACTROBAN) 2 % ointment Indications: Skin infection Apply to affected area three times a day for 10 days. 15 g 0 05/11/2023 05/21/2023 Active Start: 06-26-2022 End: 09-23-2022 mupirocin (BACTROBAN) 2 % oi ntment Apply to affected area three times daily. 30 g 1 06/26/2022 09/23/2022 Discontinued (Course of therapy completed) Comment on above: Apply to affected ar ea three times daily. Apply to affected ar ea three times a day for 10 days. MV with Sbf-Hmwkoikg-Zsguey (CENTRUM SILVER) 0.4 mg-300 mcg- 250 mcg tab (20 sources) Start: take 1 tablet by mouth once daily MV with Cmu-Zlqiajpb-Ftpyqr (CENTRUM SILVER) 0.4 mg-300 mcg- 250 mcg tab Take 1 tablet by mouth once daily. 04/09/2024 Active Xp-Smm-Xwsrv-Z6-Hojwhzq-Y utein (Centrum Silver Men) 319-00-454-300 mcg tablet (7 sources) Start: Wz-Kqt-Bivue-K1-Lyco pen-Lutein (Centrum Silver Men) 396-45-315-300 mcg tablet Active 1 {tbl} PO DAILY April 14, 2024 12:00am omeprazole 20 mg delayed release oral capsule (20 sources) Proton Pump Inhibitor Start: omeprazole (PRILOSEC) 20 mg capsule Indications: Persistent cough Take 1 capsule by mouth once daily. Take 60 min after levothyroxine then wait another 30 min to eat and take other meds. 30 capsule 5 10/25/2024 Active microencapsulated potassium chloride 20 meq extended release oral tablet (20 sources) Start: End: take 1 tablet by mouth once daily potassium chloride ER (KLOR-CON M20) 20 mEq tablet Indications: Hypokalemia Take 1 tablet by mouth once daily. 90 tablet 3 10/08/2024 Active Comment on above: Take 1 tablet by jewell th once daily. pravastatin sodium 20 mg oral tablet (20 sources) HMG-CoA Reductase Inhibitor Start: End: take 1 tablet by mouth once daily pravastatin (PRAVACHOL) 20 mg tablet Take 1 tablet by mouth once daily. 90 tablet 1 10/08/2024 Active Comment on above: Take 1 tablet by jewell once daily. solifenacin succinate 5 mg oral tablet (5 sources) Cholinergic Muscarinic Antagonist take 1 tablet by mouth once solifenacin (VESICARE) 5 mg tablet Take 10 mg by mouth once daily. Take one tablet daily per Urology Active tamsulosin hydrochloride 0.4 mg oral capsule (20 sources) alpha-Adrenergic Danny Start: End: tamsulosin (FLOMAX) 0.4 mg Indications: BPH with obstruction/lower urinary tract symptoms TAKE 1 CAPSULE ONE TIME DAILY 30 MINUTES AFTER THE SAME MEAL EACH DAY 90 capsule 3 01/08/2024 Active Comment on above: Take 1 capsule by [facility] once daily. 30 minutes after the same meal each day. TAKE 1 CAPSULE ONE T CONNER DAILY 30 MINUTES AFTER THE SAME MEAL EACH DAY Take 1 capsule by [facility] daily at bedtime. traZODone hydrochloride 50 mg oral tablet (20 sources) Serotonin Reuptake Inhibitor Start: End: take 1 tablet by mouth once daily at bedtime traZODone (DESYREL) 50 mg tablet Indications: Chronic insomnia Take 1 tablet by mouth daily at bedtime. 90 tablet 1 10/08/2024 Active Comment on above: Take 1 tablet by jewell daily at bedtime. valACYclovir 1000 mg oral tablet (5 sources) Herpesvirus Nucleoside Analog DNA Polymerase Inhibitor, Herpes Simplex Virus Nucleoside Analog DNA Polymerase Inhibitor, Herpes Zoster Virus Nucleoside Analog DNA Polymerase Inhibitor Start: 025 End: 025 take 1 tablet by mouth three times daily valACYclovir (VALTREX) 1 gram tablet Take 1 tablet by mouth three times a day for 7 days. 21 tablet 07/01/2024 07/08/2024 Active vit C/E/Zn/coppr/lutein/zeaxa n (PRESERVISION AREDS-2 ORAL) (20 sources) vit C/E/Zn/coppr/lutein/ zeaxan (PRESERVISION AREDS-2 ORAL) Take by mouth two times a day. Active vit C/E/Zn/coppr /lutein/zeaxan (PRESERVISION AREDS-2 ORAL) Take by mouth two times a day. 0 Active vit C/E/Zn/coppr /lutein/zeaxan (PRESERVISION AREDS-2 ORAL) Take by mouth. 0 Active Comment on above: Take by mouth. Take by mouth two ti mes a day. vitamin b12 1 mg oral tablet (20 sources) Vitamin B12 Start: 04-16-2022 End: 06-24-2023 take 1 tablet by mouth once daily cyanocobalamin (VITAMIN B-12) 1,000 mcg tab Indications: Low serum vitamin B12 Take 1 tablet by mouth once daily. 90 tablet 3 06/24/2023 Active Comment on above: Take 1 tablet by jewell once daily. Zinc (20 sources) take 50 mg by mouth once daily ZINC ORAL Take 50 mg by mouth once daily. Active ZINC ORAL Take b y mouth once daily. Active ZINC ORAL Take b y mouth once daily. 0 Active Comment on above: Take by mouth once d aily. zinc gluconate 50 mg oral tablet (7 sources) Start: 06-08-2024 take 1 tablet by mouth once daily Zinc Gluconate 50 mg tablet Active 50 mg PO DAILY June 08, 2024 1:00am Completed/Discontinued Medications Medication Drug Class(es) Dates Sig (Normalized) Sig (Original) amoxicillin 875 mg / clavulanate 125 mg oral tablet (3 sources) Penicillin-class Antibacterial Start: 10-27-2024 End: 10-31-2024 Amoxicillin-Pot Clavulanate 875-125 mg tablet Discontinued 1 {tbl} PO TWICE A DAY October 27, 2024 12:00am October 31, 2024 12:38pm aspirin 325 mg oral tablet (20 sources) Platelet Aggregation Inhibitor, Nonsteroidal Anti-inflammatory Drug Start: 05-09-2015 End: 04-14-2024 Aspirin 325 MG tablet Discontinued 175 mg PO DAILY@00 May 09, 2015 1:00am April 14, 2024 8:08pm Start: 05-09-2015 take 175 mg by mouth once jaz y Aspirin Active 175 MG PO DAILY@0800 May 09, 2015 1:00am aspirin 325 mg t ablet Take 162.5 mg by mouth once daily. 0 Active Comment on above: Take 162.5 mg by jewell once daily. cefadroxil 500 mg oral capsule (20 sources) Cephalosporin Antibacterial Start: 5 End: take 1 capsule by mouth twice daily cefADROxil (DURICEF) 500 mg capsule Take 1 capsule by mouth two times a day. 20 capsule 07/01/2024 09/14/2024 Discontinued (Course of therapy completed) cephalexin 500 mg oral capsule (3 sources) Cephalosporin Antibacterial Start: End: cephALEXin 500 mg cap(s) (KEFLEX) Start: 08-26-2023 End: 09-05-2023 cephALEXin 500 mg cap(s) (KE FLEX) Comment on above: Take 1 capsule by mo [facility] three times a day for 10 days. clopidogrel 75 mg oral tablet (20 sources) P2Y12 Platelet Inhibitor Start: 4 End: take 1 tablet by mouth once daily Clopidogrel 75 mg tablet Discontinued 75 mg PO DAILY April 14, 2024 12:00am June 14, 2024 10:24am Start: 12-18-2021 End: 04-09-2023 take 1 tablet by mouth once daily clopidogrel (PLAVIX) 75 mg tablet Take 1 tablet by mouth once daily. 90 tablet 1 01/07/2023 04/09/2023 Discontinued Comment on above: Take 1 tablet by jewell once daily. dilTIAZem hydrochloride 30 mg oral tablet (20 sources) Calcium Channel Danny Start: 2021 End: 2022 take 1 tablet by mouth twice daily dilTIAZem (CARDIZEM) 30 mg tablet Take 1 tablet by mouth twice daily. 180 tablet 1 09/16/2022 09/23/2022 Discontinued (Course of therapy completed) Comment on above: Take 1 tablet by jewell twice daily. fluorouracil 50 mg/ml topical cream (20 sources) Nucleoside Metabolic Inhibitor Start: 2023 End: 2023 Fluorouracil 5 % cream 07/16/2023 04/09/2024 Discontinued hydroCHLOROthiazide 25 mg oral tablet (9 sources) Thiazide Diuretic Start: 2014 End: 2023 take 1 tablet by mouth once daily Hydrochlorothiazide 25 MG tablet Discontinued 25 mg PO DAILY May 09, 2015 1:00am June 08, 2024 11:50am ammonium lactate 120 mg/ml topical lotion (20 sources) Start: 2022 End: 2023 ammonium lactate (LAC-HYDRIN) 12 % lotion Apply to affected area twice daily. 396 g 5 10/02/2022 10/03/2023 Comment on above: Apply to affected ar ea twice daily. levoFLOXacin 750 mg oral tablet (7 sources) Quinolone Antimicrobial Start: 2023 End: 2023 take 1 tablet by mouth every twenty-four hours Levofloxacin 750 mg tablet Discontinued 750 mg PO Q24H April 16, 2024 12:00am June 08, 2024 11:50am lidocaine hydrochloride 0.02 mg/mg topical gel (3 sources) Antiarrhythmic, Amide Local Anesthetic Start: 2023 End: 2023 lidocaine urojet 2 % 6 mL topical gel (GLYDO) Start: 08-26-2023 End: 09-25-2023 lidocaine urojet 2 % 11 mL t opical gel (GLYDO) lisinopril 2.5 mg oral tablet (20 sources) Angiotensin Converting Enzyme Inhibitor Start: 07-09-2021 End: 11-17-2024 take 1 tablet by mouth once daily lisinopril 2.5 mg tablet Take 1 tablet by mouth once daily. 90 tablet 1 10/08/2024 11/17/2024 Discontinued (Clinical Decision) Start: 05-09-2015 End: 06-14-2024 take 2.5 mg by mouth once daily Lisinopril 5 MG tablet Discontinued 2.5 mg PO DAILY May 09, 2015 1:00am June 14, 2024 9:50am Start: 05-09-2015 take 2.5 mg by mouth once daily Lisinopril Active 2.5 MG PO DAILY May 09, 2015 1:00am Comment on above: Take 1 tablet by jewell th once daily. methylPREDNISolone (2 sources) Corticosteroid Start: 03-13-2023 End: 03-19-2023 methylPREDNISolone (MEDROL, ERIK,) 4 mg Dose-Pack Indications: Foot injury, left, initial encounter Follow dosing instructions, take with food. 21 tablet 03/13/2023 03/19/2023 Start: 03-13-2023 End: 03-19-2023 methylPREDNISolone (MEDROL, ERIK,) 4 mg Dose-Pack Indications: Foot injury, left, initial encounter Follow dosing instructions, take with food. 21 tablet 0 03/13/2023 03/19/2023 Active Comment on above: Follow dosing instru ctions, take with food. 24 hr mirabegron 25 mg extended release oral tablet (3 sources) beta3-Adrenergic Agonist Start: 08-04-19 End: 11-02-19 24 take 1 tablet by mouth once daily mirabegron (MYRBETRIQ) 25 mg Tb24 Indications: OAB (overactive bladder) Take 1 tablet by mouth once daily. 90 tablet 0 08/04/2023 08/06/2023 Discontinued (Cost of medication) Comment on above: Take 1 tablet by jewell th once daily. Multivitamin (Daily Multiple) 1 EACH tablet (9 sources) Start: 05-09-20 End: 04-14-20 24 take 1 tablet by mouth once daily Multivitamin (Daily Multiple) 1 EACH tablet Discontinued 1 {tbl} PO DAILY May 09, 2015 1:00am April 14, 2024 8:06pm Start: 05-09-2015 Multivitamin ( Daily Multiple) 1 EACH tablet Active 1 TABLET PO DAILY May 09, 2015 1:00am multivitamins w-minerals/lut(CENTRUM SILVER TAB) (20 sources) Start: 03-29-2008 End: 04-09-2024 multivitamins w-minerals/lut(CENTRUM SILVER TAB) Take by mouth. 0 03/29/2008 04/09/2024 Discontinued Start: 03-29-2008 multivitamins w-minerals/lut(CENTRUM SILVER TAB) Take by mouth. 0 03/29/2008 Active Start: 03-29-2008 multivitamins w-minerals/lut(CENTRUM SILVER TAB) Take one(1) tablet daily. 0 03/29/2008 Active Comment on above: Take one(1) tablet d aily. nystatin 755405 unt oral tablet (20 sources) Polyene Antifungal Start: 04-18-2024 End: 06-08-2024 take 1 tablet by mouth three times daily Nystatin 500,000 unit tablet Discontinued [id number] U PO THREE TIMES A DAY 10 01April 18, 2024 12:00am June 08, 2024 11:50am Start: 01-13-2024 End: 04-09-2024 nystatin (NYSTOP) powder Ind ications: Intertrigo Apply 1 application to affected area three times a day. 01/13/2024 04/09/2024 Discontinued Start: 12-27-2023 End: 01-13-2024 nystatin (NYSTOP) powder Ind ications: Intertrigo Apply 1 application to affected area two times a day. 60 g 0 12/27/2023 01/13/2024 Discontinued (Adjust Sig - Block E-Cancel) Start: 05-11-2023 End: 05-25-2023 nystatin (MYCOSTATIN) powder Indications: Rash Apply 1 application to affected area four times daily for 14 days. 60 g 1 05/11/2023 05/25/2023 Active Comment on above: Apply 1 application to affected area four times daily for 14 days. oxyCODONE hydrochloride 5 mg oral tablet (9 sources) Opioid Agonist Start: 5 End: 5 take 5-10 mg by mouth every six hours as needed for pain Oxycodone 5 MG tablet Discontinued 5 - 10 mg PO EVERY 6 HOURS NEEDED as needed for Moderate Pain May 09, 2015 1:00am May 22, 2015 7:45pm pantoprazole 40 mg delayed release oral tablet (20 sources) Proton Pump Inhibitor Start: 1 End: 4 Pantoprazole (Protonix) 40 mg tablet,delayed release (DR/EC) Discontinued 40 mg PO TWICE A DAY 60 August 05, 2021 2:06pm Mary 22nd, 2022 10:43am Take two times a day for eight weeks then one time a day for eight weeks then stop. perflutren lipid microspheres 1.3 mL in NaCl (PF) 0.9% 10 mL injection (DEFINITY) (20 sources) Start: 2 End: 3 perflutren lipid microspheres 1.3 mL in NaCl (PF) 0.9% 10 mL injection (DEFINITY) polyethylene glycol 3350 20887 mg powder for oral solution (9 sources) Osmotic Laxative Start: 5 End: 6 take 17 g by mouth once daily Polyethylene Glycol 3350 17 GM Packet Discontinued 17 g PO DAILY May 22, 2015 1:00am February 03, 2016 11:48am 125 ml sodium chloride 9 mg/ml prefilled syringe (20 sources) Start: 2 End: 3 sodium chloride 0.9 % (flush) 10 mL (BD POSIFLUSH) Walker misc (5 sources) Start: 4 End: 4 Walker misc Needs fitted for height of 6' and weight of 286 lbs. Dx:R26.9 and M48.062 1 Each 04/22/2024 05/28/2024 Discontinued Start: 04-22-2024 Walker misc Ne eds fitted for height of 6' and weight of 286 lbs. Dx:R26.9 and M48.062 1 Each 04/22/2024 Active Problems Active Problems Problem Classification Problem Date Documented Date Episodic/Chronic Cardiac dysrhythmias (20 sources) Supraventricular tachycardia; Translations: [Supraventricular tachycardia] Onset: 1 08-25-2020 Chronic Chronic ulcer of skin (1 source) Skin ulcer; Translations: [Non-pressure chronic ulcer of skin of other sites with unspecified severity] 12-27-2023 Chronic Complications of surgical procedures or medical care (2 sources) Drug-induced hypotension; Translations: [Hypotension due to drugs] Onset: 5 10-25-2024 Episodic Conditions associated with dizziness or vertigo (1 source) Lightheadedness; Translations: [Dizziness and giddiness] Episodic Conduction disorders (20 sources) First degree atrioventricular block; Translations: [Atrioventricular block, first degree] Onset: 6 12-19-2015 Chronic Comment on above: WHG Congestive heart failure; nonhypertensive (13 sources) Congestive heart failure; Translations: [Heart failure, unspecified] Onset: 5 10-28-2024 Chronic Diabetes mellitus without complication (3 sources) Type 2 diabetes mellitus; Translations: [Type 2 diabetes mellitus without complications] Onset: 5 10-31-2024 Chronic Disorders of lipid metabolism (20 sources) Mixed hyperlipidemia; Translations: [Mixed hyperlipidemia] Onset: 8 04-03-2015 Chronic Comment on above: ON MED Diverticulosis and diverticulitis (20 sources) Diverticulosis of colon; Translations: [Diverticulosis of large intestine without perforation or abscess without bleeding] 12-19-2015 Chronic E Codes: Fall (11 sources) Fall; Translations: [Unspecified fall, initial encounter] Onset: 3 Episodic E Codes: Fall (1 source) Fall 08-02-2022 Esophageal disorders (20 sources) Gastroesophageal reflux disease without esophagitis; Translations: [Gastro-esophageal reflux disease without esophagitis] Onset: 5 04-03-2015 Chronic Essential hypertension (20 sources) Essential hypertension; Translations: [Essential (primary) hypertension] Onset: 3 08-21-2018 Chronic Comment on above: CONTROLLED WITH MED Fluid and electrolyte disorders (20 sources) Hypernatremia; Translations: [Hyperosmolality and hypernatremia] Onset: 5 09-15-2024 Episodic Genitourinary congenital anomalies (20 sources) Multiple renal cysts; Translations: [Congenital multiple renal cysts] Onset: 5 06-18-2021 Chronic Hyperplasia of prostate (20 sources) Benign prostatic hypertrophy with outflow obstruction; Translations: [Benign prostatic hyperplasia with lower urinary tract symptoms] Onset: 3 Chronic Immunizations and screening for infectious disease (2 sources) Vaccination needed; Translations: [Encounter for immunization] Onset: 5 10-08-2024 Episodic Late effects of cerebrovascular disease (20 sources) Vertigo due to brain injury; Translations: [Other sequelae of cerebral infarction] Onset: 1 02-25-2017 Chronic Malaise and fatigue (20 sources) Asthenia; Translations: [Weakness] 11-29-2022 Episodic Miscellaneous mental health disorders (7 sources) Chronic insomnia; Translations: [Psychophysiologic insomnia] Onset: 5 Chronic Mood disorders (14 sources) Depressive disorder; Translations: [Depression] 07-22-2024 Chronic Occlusion or stenosis of precerebral arteries (20 sources) Bilateral stenosis of carotid arteries; Translations: [Occlusion and stenosis of bilateral carotid arteries] Onset: 2 Chronic Open wounds of extremities (9 sources) Laceration of hand; Translations: [Laceration without foreign body of left hand, initial encounter] 03-13-2021 Episodic Osteoarthritis (20 sources) Disorder of lower leg; Translations: [Unilateral primary osteoarthritis, unspecified knee] Onset: 9 03-20-2016 Chronic Other aftercare (7 sources) Long-term current use of anticoagulant; Translations: [meterman (current) use of anticoagulants] 06-25-2024 Episodic Other and ill-defined cerebrovascular disease (20 sources) Cerebrovascular disease; Translations: [Other cerebrovascular disease] Onset: 9 08-01-2014 Chronic Other circulatory disease (1 source) Low blood pressure; Translations: [Hypotension, unspecified] 04-22-2024 Episodic Other connective tissue disease (1 source) Paraparesis; Translations: [Other symptoms and signs involving the musculoskeletal system] Episodic Other connective tissue disease (1 source) Swelling of lower limb; Translations: [Other specified soft tissue disorders] 07-01-2024 Episodic Other connective tissue disease (2 sources) Pain in left foot; Translations: [Pain in left foot] 07-01-2024 Episodic Other connective tissue disease (1 source) Pain in right lower leg; Translations: [Pain in right lower leg] Onset: 5 Episodic Other diseases of bladder and urethra (20 sources) Overactive bladder; Translations: [Overactive bladder] Onset: 0 02-10-2020 Chronic Other diseases of bladder and urethra (1 source) Overactive bladder; Translations: [OAB (overactive bladder)] Onset: 0 Chronic Other ear and sense organ disorders (1 source) Hearing difficulty; Translations: [Unspecified hearing loss, unspecified ear] 04-09-2024 Chronic Other ear and sense organ disorders (1 source) Bilateral tinnitus; Translations: [Tinnitus, bilateral] 04-09-2024 Episodic Other gastrointestinal disorders (20 sources) Dysphagia; Translations: [Dysphagia, pharyngoesophageal phase] Episodic Comment on above: FOOD GETS STUCK Other gastrointestinal disorders (1 source) Dysphagia, unspecified; Translations: [Dysphagia, unspecified] Onset: Episodic Other inflammatory condition of skin (2 sources) Intertrigo; Translations: [Erythema intertrigo] 12-27-2023 Episodic Other injuries and conditions due to external causes (2 sources) Open wound of skin; Translations: [Other injury of unspecified body region, initial encounter] Episodic Other injuries and conditions due to external causes (1 source) Contusion of back 08-02-2022 Episodic Other injuries and conditions due to external causes (1 source) Injury of head; Translations: [Unspecified injury of head, initial encounter] Episodic Other injuries and conditions due to external causes (1 source) Injury of left foot; Translations: [Unspecified injury of left foot, initial encounter] 03-13-2023 Episodic Other injuries and conditions due to external causes (2 sources) Injury of left knee; Translations: [Unspecified injury of left lower leg, subsequent encounter] 06-22-2024 Episodic Other lower respiratory disease (5 sources) Multiple nodules of lung; Translations: [Other nonspecific abnormal finding of lung field] Episodic Other lower respiratory disease (10 sources) Dyspnea; Translations: [Shortness of breath] 10-25-2024 Episodic Other lower respiratory disease (6 sources) Dyspnea on exertion; Translations: [Other forms of dyspnea] 10-25-2024 Episodic Other lower respiratory disease (3 sources) Persistent cough; Translations: [Persistent cough] Onset: 5 10-25-2024 Episodic Other lower respiratory disease (1 source) Wheezing; Translations: [Wheezing] 10-26-2024 Episodic Other lower respiratory disease (3 sources) Cough; Translations: [Cough] 10-27-2024 Episodic Other lower respiratory disease (1 source) Hypoxia; Translations: [Hypoxemia] 11-17-2024 Episodic Other lower respiratory disease (3 sources) Shortness of breath; Translations: [Shortness of breath] Onset: Episodic Other lower respiratory disease (2 sources) Other forms of dyspnea; Translations: [Other forms of dyspnea] Onset: 5 Episodic Other lower respiratory disease (1 source) Hypoxemia; Translations: [Hypoxia] Onset: 5 Episodic Other lower respiratory disease (1 source) Wheezing; Translations: [Wheezing] Onset: 5 Episodic Other lower respiratory disease (1 source) Other nonspecific abnormal finding of lung field; Translations: [Lung nodules] Onset: 5 Episodic Other male genital disorders (2 sources) Acquired buried penis; 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] 08-04-2023 Chronic Other nervous system disorders (20 sources) Hereditary peripheral neuropathy; Translations: [Hereditary and idiopathic neuropathy, unspecified] Onset: 5 06-18-2021 Chronic Other nervous system disorders (20 sources) Neuropathy; Translations: [Polyneuropathy, unspecified] Onset: 7 11-15-2016 Chronic Other nervous system disorders (8 sources) Metabolic encephalopathy; Translations: [Metabolic encephalopathy] 04-22-2024 Chronic Other nervous system disorders (2 sources) Metabolic encephalopathy; Translations: [Metabolic encephalopathy] Onset: 4 Chronic Other nervous system disorders (1 source) Hereditary and idiopathic neuropathy, unspecified; Translations: [Familial peripheral neuropathy] Onset: 1 Chronic Other nutritional; endocrine; and metabolic disorders (20 sources) Obese class II; Translations: [Obesity, unspecified] Onset: 3 07-01-2022 Chronic Other skin disorders (3 sources) Seborrheic keratosis; Translations: [Other seborrheic keratosis] Episodic Other skin disorders (2 sources) Skin lesion; Translations: [Disorder of the skin and subcutaneous tissue, unspecified] 04-09-2023 Episodic Other skin disorders (3 sources) Eruption; Translations: [Rash and other nonspecific skin eruption] 05-11-2023 Episodic Other skin disorders (2 sources) Localized swelling of left lower leg; Translations: [Localized swelling, mass and lump, left lower limb] 06-22-2024 Episodic Pulmonary heart disease (20 sources) Pulmonary hypertension, unspecified; Translations: [Other chronic pulmonary heart diseases] Onset: 6 08-25-2020 Chronic Residual codes; unclassified (20 sources) Obstructive sleep apnea syndrome; Translations: [Obstructive sleep apnea (adult) (pediatric)] Onset: 5 06-18-2021 Chronic Residual codes; unclassified (1 source) Obstructive sleep apnea (adult) (pediatric); Translations: [JESSY (obstructive sleep apnea)] Onset: 1 Chronic Residual codes; unclassified (4 sources) Confusional state; Translations: [Disorientation, unspecified] Episodic Residual codes; unclassified (2 sources) Active living will ; Translations: [Personal history of other specified conditions] Onset: 2 Episodic Residual codes; unclassified (1 source) Edema of left lower limb; Translations: [Localized edema] 02-11-2024 Episodic Residual codes; unclassified (14 sources) Insomnia; Translations: [Insomnia, unspecified] 07-22-2024 Episodic Residual codes; unclassified (1 source) Peripheral edema; Translations: [Localized edema] 10-08-2024 Episodic Residual codes; unclassified (1 source) Other amnesia; Translations: [Memory difficulties] Onset: 5 Episodic Residual codes; unclassified (3 sources) Localized edema; Translations: [Peripheral edema] Onset: 6 Episodic Spondylosis; intervertebral disc disorders; other back problems (20 sources) Post-laminectomy syndrome; Translations: [Postlaminectomy syndrome, not elsewhere classified] Onset: 0 03-20-2016 Chronic Superficial injury; contusion (20 sources) Abrasion of left knee; Translations: [Abrasion, left knee, initial encounter] Onset: 3 Episodic Thyroid disorders (20 sources) Acquired hypothyroidism; Translations: [Hypothyroidism, unspecified] Onset: 5 04-03-2015 Chronic Transient cerebral ischemia (4 sources) Transient global amnesia; 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 Unclassified (20 sources) Active living will ; Translations: [Living will on file] Onset: 2 03-21-2022 Unclassified (7 sources) As directed by cardiology Unclassified (7 sources) 1 week after discharge from [facility] Unclassified (2 sources) 6 week port implant pacemaker check Unclassified (2 sources) Other persistent atrial fibrillation; Translations: [Other persistent atrial fibrillation] Onset: 5 Unclassified (1 source) Acidosis, unspecified; Translations: [Acidosis, unspecified] Onset: 4 Past or Other Problems Problem Classification Problem Date Documented Da te Episodic/Chronic Abdominal pain (14 sources) Right upper quadrant pain; Translations: [Right upper quadrant pain] Onset: 01-16-2024 01-07-2024 Episodic Acute cerebrovascular disease (20 sources) Cerebral infarction due to embolism of cerebral arteries; Translations: [Cerebral infarction due to embolism of unspecified cerebellar artery] Onset: 07-13-2008 Resolved: 08-23-2020 Chronic Administrative/social admission (20 sources) Advance directive discussed with patient; Translations: [Other specified counseling] Onset: 03-21-2022 Episodic Allergic reactions (20 sources) Solar degeneration; Translations: [Other skin changes due to chronic exposure to nonionizing radiation] Onset: 03-08-2012 03-20-2016 Episodic Biliary tract disease (20 sources) Gallstone; Translations: [Calculus of gallbladder without cholecystitis without obstruction] Onset: 01-07-2024 01-07-2024 Episodic Cancer of bladder (20 sources) Malignant tumor of urinary bladder; Translations: [Malignant neoplasm of bladder, unspecified] Onset: 09-07-2014 Resolved: 08-23-2020 08-26-2023 Chronic Cancer of bladder (20 sources) H/O: malignant neoplasm; Translations: [Personal history of malignant neoplasm of bladder] Onset: 04-09-2023 04-09-2023 Episodic Cardiac dysrhythmias (20 sources) AV-junctional (stalni) bradycardia; Translations: [Bradycardia, unspecified] Onset: 04-22-2024 Episodic Deficiency and other anemia (20 sources) Anemia; Translations: [Anemia, unspecified] Onset: 07-24-2015 Resolved: 09-04-2018 06-18-2021 Episodic Diabetes mellitus without complication (20 sources) Hyperglycemia; Translations: [Impaired fasting glucose] Onset: 04-16-2010 11-30-2014 Episodic Esophageal disorders (1 source) Disease of esophagus, unspecified; Translations: [Disease of esophagus, unspecified] Onset: 04-28-2024 Episodic Genitourinary symptoms and ill-defined conditions (20 sources) Lower urinary tract symptoms; Translations: [Unspecified symptoms and signs involving the genitourinary system] Onset: 08-02-2014 12-19-2015 Episodic Mycoses (5 sources) Candidiasis of skin; Translations: [Candidiasis of skin and nail] Onset: 01-20-2024 01-13-2024 Episodic Neoplasms of unspecified nature or uncertain behavior (20 sources) Neoplasm of uncertain behavior of skin; Translations: [Neoplasm of uncertain behavior of skin] Onset: 03-08-2012 Resolved: 09-04-2012 09-04-2012 Episodic Nutritional deficiencies (20 sources) Serum vitamin B12 low; Translations: [Deficiency of other specified B group vitamins] Onset: 04-16-2022 Episodic Other aftercare (20 sources) Patient encounter status; Translations: [Other long-term (current) drug therapy] Onset: 12-19-2015 02-10-2020 Episodic Other aftercare (1 source) Other intermediate frame tender (current) drug therapy; Translations: [Medication management] Onset: 02-10-2020 Episodic Other and unspecified benign neoplasm (20 sources) Senile angioma; Translations: [Hemangioma of skin and subcutaneous tissue] Onset: 03-08-2012 03-20-2016 Episodic Other and unspecified benign neoplasm (20 sources) Dysplastic nevus of skin; Translations: [Melanocytic nevi of trunk] Onset: 02-03-2014 03-20-2016 Episodic Other and unspecified benign neoplasm (20 sources) Dysplastic nevus of trunk; Translations: [Melanocytic nevi of trunk] Onset: 02-03-2014 03-20-2016 Episodic Other circulatory disease (20 sources) History of giant cell arteritis; Translations: [Personal history of other diseases of the circulatory system] Onset: 03-29-2008 11-15-2016 Episodic Other circulatory disease (20 sources) History of cerebrovascular accident; Translations: [Personal history of transient ischemic attack (TIA), and cerebral infarction without residual deficits] Onset: 02-22-2008 06-18-2021 Episodic Other circulatory disease (1 source) Hypotension, unspecified; Translations: [Hypotension, unspecified hypotension type] Onset: 05-13-2024 Episodic Other circulatory disease (1 source) Personal history of transient ischemic attack (TIA), and cerebral infarction without residual deficits; Translations: [History of CVA (cerebrovascular accident)] Onset: 06-18-2021 Episodic Other connective tissue disease (20 sources) Dupuytrens contracture of bilateral hands; Translations: [Palmar fascial fibromatosis [Dupuytren]] Onset: 09-21-2012 03-20-2016 Episodic Other connective tissue disease (16 sources) Weakness of right leg; Translations: [Other symptoms and signs involving the musculoskeletal system] Onset: 04-25-2014 10-27-2018 Episodic Other connective tissue disease (20 sources) Diastasis recti; Translations: [Separation of muscle (nontraumatic), other site] Onset: 08-01-2014 09-07-2014 Episodic Other connective tissue disease (20 sources) Pain of bilateral hands; Translations: [Pain in right hand] Onset: 12-19-2015 03-20-2016 Episodic Other connective tissue disease (20 sources) Trochanteric bursitis; Translations: [Trochanteric bursitis, unspecified hip] Onset: 03-20-2016 11-15-2016 Episodic Other connective tissue disease (20 sources) Pain in left thumb; Translations: [Pain in left finger(s)] Onset: 11-26-2017 11-26-2017 Episodic Other connective tissue disease (20 sources) Other symptoms and signs involving the musculoskeletal system; Translations: [Other musculoskeletal symptoms referable to limbs] Onset: 04-25-2014 10-27-2018 Episodic Other connective tissue disease (1 source) Pain in left foot; Translations: [Foot pain, left] Onset: 07-01-2024 Episodic Other connective tissue disease (1 source) Other specified soft tissue disorders; Translations: [Leg swelling] Onset: 07-01-2024 Episodic Other diseases of kidney and ureters (1 source) Other obstructive and reflux uropathy; 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] Onset: 02-10-2020 Episodic Other diseases of veins and lymphatics (20 sources) Peripheral venous insufficiency; Translations: [Venous insufficiency (chronic) (peripheral)] Onset: 06-02-2015 08-04-2015 Episodic Other diseases of veins and lymphatics (20 sources) Stasis dermatitis; Translations: [Venous insufficiency (chronic) (peripheral)] Onset: 06-02-2015 08-04-2015 Episodic Other diseases of veins and lymphatics (20 sources) Disorder of vein of lower extremity; Translations: [Venous insufficiency (chronic) (peripheral)] Onset: 06-02-2015 08-04-2015 Episodic Other diseases of veins and lymphatics (1 source) Venous insufficiency (chronic) (peripheral); Translations: [Venous insufficiency (chronic) (peripheral)] Onset: 08-04-2015 Episodic Other ear and sense organ disorders (20 sources) Tinnitus; Translations: [Tinnitus, unspecified ear] Onset: 07-26-2017 11-26-2017 Episodic Other gastrointestinal disorders (20 sources) Esophageal dysphagia; Translations: [Other dysphagia] Onset: 04-09-2024 05-13-2021 Episodic Other gastrointestinal disorders (2 sources) Other dysphagia; Translations: [Other dysphagia] Onset: 08-12-2024 Episodic Other injuries and conditions due to external causes (20 sources) At risk for falls ; Translations: [History of falling] Onset: 05-28-2019 05-28-2019 Episodic Other injuries and conditions due to external causes (20 sources) Open wound; Translations: [Other injury of unspecified body region, initial encounter] Onset: 06-04-2012 Resolved: 09-04-2012 09-04-2012 Episodic Other injuries and conditions due to external causes (1 source) Unspecified injury of left thigh, initial encounter; Translations: [Unspecified injury of left thigh, initial encounter] Onset: 07-13-2024 Episodic Other injuries and conditions due to external causes (1 source) Unspecified injury of left lower leg, subsequent encounter; Translations: [Injury of left knee, subsequent encounter] Onset: 06-22-2024 Episodic Other lower respiratory disease (20 sources) Nodule of lung; Translations: [Solitary pulmonary nodule] Onset: 08-06-2022 08-06-2022 Episodic Other lower respiratory disease (1 source) Solitary pulmonary nodule; Translations: [Pulmonary nodule] Onset: 04-09-2024 Episodic Other male genital disorders (20 sources) Disorder of prostate; Translations: [Disorder of prostate, unspecified] Onset: 08-04-2015 08-04-2015 Episodic Other nervous system disorders (20 sources) Idiopathic peripheral neuropathy; Translations: [Hereditary and idiopathic neuropathy, unspecified] Onset: 04-25-2014 Resolved: 06-02-2014 06-02-2014 Chronic Other nervous system disorders (20 sources) Impairment of balance; Translations: [Other abnormalities of gait and mobility] Onset: 04-24-2014 06-18-2021 Episodic Other nervous system disorders (20 sources) Abnormal gait; Translations: [Unspecified abnormalities of gait and mobility] Onset: 04-29-2016 11-15-2016 Episodic Other nervous system disorders (1 source) Unspecified abnormalities of gait and mobility; Translations: [Gait difficulty] Onset: 03-21-2022 Episodic Other non-epithelial cancer of skin (20 sources) History of malignant neoplasm of skin; Translations: [Personal history of other malignant neoplasm of skin] Onset: 03-08-2012 Resolved: 09-04-2012 03-20-2016 Episodic Other nutritional; endocrine; and metabolic disorders (20 sources) Body mass index 40+ - severely obese; Translations: [Morbid (severe) obesity due to excess calories] Onset: 02-25-2017 Resolved: 04-09-2023 08-23-2020 Chronic Other skin disorders (20 sources) Sebaceous cyst of skin; Translations: [Sebaceous cyst] Onset: 06-08-2009 03-20-2016 Episodic Other skin disorders (20 sources) Inflamed seborrheic keratosis; Translations: [Inflamed seborrheic keratosis] Onset: 03-08-2012 03-20-2016 Episodic Other skin disorders (20 sources) Asteatosis cutis; Translations: [Xerosis cutis] Onset: 09-04-2012 03-20-2016 Episodic Other skin disorders (2 sources) Localized swelling, mass and lump, left lower limb; Translations: [Localized swelling, mass and lump, left lower limb] Onset: 06-24-2024 Episodic Other skin disorders (1 source) Localized swelling, mass and lump, right lower limb; Translations: [Localized swelling, mass and lump, right lower limb] Onset: 08-11-2024 Episodic Other skin disorders (1 source) Rash and other nonspecific skin eruption; Translations: [Rash] Onset: 07-01-2024 Episodic Pneumonia (except that caused by tuberculosis or sexually transmitted disease) (13 sources) Bacterial pneumonia; Translations: [Unspecified bacterial pneumonia] Onset: 04-16-2024 04-22-2024 Episodic Residual codes; unclassified (20 sources) Bilateral lower limb edema; Translations: [Localized edema] Onset: 08-01-2014 08-04-2015 Episodic Residual codes; unclassified (20 sources) Memory impairment; Translations: [Other amnesia] Onset: 04-12-2022 Episodic Septicemia (except in labor) (10 sources) Sepsis; Translations: [Sepsis, unspecified organism] Onset: 04-16-2024 04-24-2024 Episodic Skin and subcutaneous tissue infections (4 sources) Infection of skin; Translations: [Local infection of the skin and subcutaneous tissue, unspecified] Onset: 07-01-2024 05-11-2023 Episodic Spondylosis; intervertebral disc disorders; other back problems (20 sources) Thoracic and lumbosacral neuritis; Translations: [Thoracic or lumbosacral neuritis or radiculitis, unspecified] Onset: 05-05-2009 03-20-2016 Episodic Viral infection (20 sources) Verruca vulgaris; Translations: [Viral wart, unspecified] Onset: 04-09-2013 03-20-2016 Episodic Results Test Name Value Interpretation Reference Range Facility [facility] CNPTOUTREACHon 11-23-2024 CNPTOUTREACH Normal [facility] 11-18-2024 [facility] Normal [facility] Basic metabolic 2000 panelon 11-17-2024 Anion gap [Moles/Vol] 11 mmol/L 8 - 15 mmol/L [facility] Calcium [Mass/Vol] 9.3 mg/dL 8.5 - 10. 2 mg/dL [facility] Chloride [Moles/Vol] 105 mmol/L 98 - 10 7 mmol/L [facility] CO2 [Moles/Vol] 28 mmol/L 22 - 30 mmol/L [facility] Creatinine [Mass/Vol] 1.09 mg/dL 0.73 - 1.22 mg/dL [facility] GFR/1.73 sq M.predicted among non-blacks MDRD (S/P/Bld) [Vol rate/Area] 67 mL/min/{1.73_m2} - PINF [facility] Comment on above: Estimated Glomerular Filtration Rate (eGFR) is calculated using the 2020 CKD-EPI creatinine equation. This equation utilizes serum creatinine, sex, and age as parameters. The creatinine assay has traceable calibration to isotope dilution-mass spectrometry. Refer to KDIGO guidelines for clinical interpretation. In patients with unstable renal function, e.g. those with acute kidney injury, the eGFR may not accurately reflect actual GFR. Glucose [Mass/Vol] 123 mg/dL High 74 - 99 mg/dL [facility] Comment on above: The [place] Diabete s Association (ADA) provides guidance for cutoff values for fasting glucose and random glucose. The ADA defines fasting as no caloric intake for at least 8 hours. Fasting plasma glucose results between 100 to 125 mg/dL indicate increased risk for diabetes (prediabetes). Fasting plasma glucose results greater than or equal to 126 mg/dL meet the criteria for diagnosis of diabetes. In the absence of unequivocal hyperglycemia, results should be confirmed by repeat testing. In a patient with classic symptoms of hyperglycemia or hyperglycemic crisis, random plasma glucose results greater than or equal to 200 mg/dL meet the criteria for diagnosis of diabetes. Reference: Standards of Medical Care in Diabetes 2016, British Diabetes Association. Diabetes Care. 2016.39(Suppl 1). Potassium [Moles/Vol] 4.7 mmol/L 3.7 - 5.1 mmol/L [facility] Sodium [Moles/Vol] 144 mmol/L 136 - 144 mmol/L [facility] Urea nitrogen [Mass/Vol] 26 mg/dL High 9 - 24 mg/dL [facility] Anion gap [Moles/Vol] 11 mmol/L Normal 8-15 [facility] Comment on above: Order Comment: Speci men Type: BLOOD SPECIMENOrdering Facility: [facility] Address: [address] [place] [address] Performed By: #### 2 4321-2, 76844-8 ####[facility] LABIA [id number] [place] [address] [place] Calcium [Mass/Vol] 9.3 mg/dL Normal 8.5-10.2 [facility] Comment on above: Order Comment: Speci men Type: BLOOD SPECIMENOrdering Facility: [facility] Address: [address] [place] [address] Performed By: #### 2 4321-2, 07119-6 ####[facility] LABCLIA [id number] [place] [id number] [place] Chloride [Moles/Vol] 105 mmol/L Normal 98-107 [facility] Comment on above: Order Comment: Speci men Type: BLOOD SPECIMENOrdering Facility: [facility] Address: [address] [place] [address] Performed By: #### 2 4321-2, 30643-6 ####[facility] LABCLIA [id number] [place] [id number] [place] CO2 [Moles/Vol] 28 mmol/L Normal 22-30 [facility] Comment on above: Order Comment: Speci men Type: BLOOD SPECIMENOrdering Facility: [facility] Address: [address] [place] [address] Performed By: #### 2 4321-2, 28765-8 ####[facility] LABCLIA [id number] [address] [place] Creatinine [Mass/Vol] 1.09 mg/dL Normal 0.73-1.22 [facility] Comment on above: Order Comment: Speci men Type: BLOOD SPECIMENOrdering Facility: [facility] Address: [address] [place] [address] Performed By: #### 2 4321-2, 60499-2 ####[facility] LABCLIA [id number] [address] Creatinine and Glomerular filtration rate.predicted panel (S/P/Bld) 67 mL/min/1.73m??? Normal >=60 [facility] Comment on above: Order Comment: Speci men Type: BLOOD SPECIMENOrdering Facility: [facility] Address: [address] [place] [address] Result Comment: Kateryna mated Glomerular Filtration Rate (eGFR) is calculated using the 2020 CKD-EPI creatinine equation. This equation utilizes serum creatinine, sex, and age as parameters. The creatinine assay has traceable calibration to isotope dilution-mass spectrometry. Refer to KDIGO guidelines for clinical interpretation. In patients with unstable renal function, e.g. those with acute kidney injury, the eGFR may not accurately reflect actual GFR. Performed By: #### 2 4321-2, 79475-2 ####[facility] LABCLIA [id number] [place] [address] [place] Glucose [Mass/Vol] 123 mg/dL High 74-99 [facility] Comment on above: Order Comment: Speci men Type: BLOOD SPECIMENOrdering Facility: [facility] Address: [address] [place] [address] Result Comment: The British Diabetes Association (ADA) provides guidance for cutoff values for fasting glucose and random glucose. The ADA defines fasting as no caloric intake for at least 8 hours. Fasting plasma glucose results between 100 to 125 mg/dL indicate increased risk for diabetes (prediabetes).Fasting plasma glucose results greater than or equal to 126 mg/dL meet the criteria for diagnosis of diabetes. In the absence of unequivocal hyperglycemia, results should be confirmed by repeat testing. In a patient with classic symptoms of hyperglycemia or hyperglycemic crisis, random plasma glucose results greater than or equal to 200 mg/dL meet the criteria for diagnosis of diabetes.Reference: Standards of Medical Care in Diabetes 2016, British Diabetes Association. Diabetes Care. 2016.39(Suppl 1). Performed By: #### 2 4321-2, 91863-9 ####[facility] LABCLIA [id number] [place] [address] [place] Potassium [Moles/Vol] 4.7 mmol/L Normal 3.7-5.1 [facility] Comment on above: Order Comment: Speci men Type: BLOOD SPECIMENOrdering Facility: [facility] Address: [address] [place] [address] Performed By: #### 2 4321-2, 92834-9 ####[facility] LABCLIA [id number] [place] [address] [place] Sodium [Moles/Vol] 144 mmol/L Normal 136-144 [facility] Comment on above: Order Comment: Speci men Type: BLOOD SPECIMENOrdering Facility: [facility] Address: [address] [place] [address] Performed By: #### 2 4321-2, 83001-9 ####[facility] LABCLIA [id number] [place] [address] [place] Urea nitrogen [Mass/Vol] 26 mg/dL High 9-24 [facility] Comment on above: Order Comment: Speci men Type: BLOOD SPECIMENOrdering Facility: [facility] Address: [address] [place] [address] Performed By: #### 2 4321-2, 23084-9 ####[facility] LABCLIA [id number] [place] [address] [place] CNOVon 11-17-2024 CNOV Normal [facility] NT PRO BNPon 11-17-2024 Natriuretic peptide.B prohormone N-Terminal [Mass/Vol] 732 pg/mL High NINF - 450 pg/mL [facility] NT-proBNP SerPl-mCncon 11-17 Natriuretic peptide.B prohormone N-Terminal [Mass/Vol] 732 pg/mL High <450 [facility] Comment on above: Order Comment: Speci men Type: BLOOD SPECIMENOrdering Facility: [facility] Address: [address] [place] [address] Performed By: #### 2 4321-2, 59670-0 ####[facility] LABCLIA [id number] [address] [place] No Panel Informationon 11-17 Interpretation and review of laboratory results Abnormal [facility] CNPTOUTREACHon 11-16-2024 CNPTOUTREACH Normal [facility] TSH SerPl-aCncon 11-12-2024 TSH Qn 1.040 m[IU]/L Normal 0.270-4.200 [facility] Comment on above: Order Comment: Speci men Type: BLOOD SPECIMENOrdering Facility: [facility] Address: [address] [place] [address] Performed By: #### 3 016-3 ####[facility] LABIA [id number] [place] [address] [place] Cardiology Visit Reporton Cardiology Visit Report Normal [facility] SPIROMETRY - BASELINE AND PO ST DILATORon 11-09-2024 SPIROMETRY - BASELINE AND POST DILATOR Normal [facility] CNPTOUTREACHon 11-03-2024 CNPTOUTREACH Normal [facility] CNPTOUTREACHon 11-02-2024 CNPTOUTREACH Normal [facility] Basic Metabolic Profile (BMP )on 11-01-2024 BUN Normal 4-19 [facility] Comment on above: Result Comment: Canc elled via OM: Order cancelled - Patient discharged Performed By: #### L 500.2500 ####[facility] [address] [place], [address] BUN/CRE Normal 10-20 [facility] Comment on above: Result Comment: Canc elled via OM: Order cancelled - Patient discharged Performed By: #### L 500.2500 ####[facility] [address] [place], [address] Calcium Normal 7.6-11.0 [facility] Comment on above: Result Comment: Canc elled via OM: Order cancelled - Patient discharged Performed By: #### L 500.2500 ####[facility] [address] [place], [address] CL Normal 98-108 [facility] Comment on above: Result Comment: Canc elled via OM: Order cancelled - Patient discharged Performed By: #### L 500.2500 ####[facility] [address] [place], [address] CO2 Normal 21.0-32.0 [facility] Comment on above: Result Comment: Canc elled via OM: Order cancelled - Patient discharged Performed By: #### L 500.2500 ####[facility] [address] [place], [address] CREAT,SERUM Normal 0.70-1.20 [facility] Comment on above: Result Comment: Canc elled via OM: Order cancelled - Patient discharged Performed By: #### L 500.2500 ####[facility] [address] [place], [address] eGFR Normal >60 [facility] Comment on above: Result Comment: Canc elled via OM: Order cancelled - Patient discharged Performed By: #### L 500.2500 ####[facility] [address] [place], [address] GAP Normal - [facility] Comment on above: Result Comment: Canc elled via OM: Order cancelled - Patient discharged Performed By: #### L 500.2500 ####[facility] [address] [place], [address] GLU Normal 70-99 [facility] Comment on above: Result Comment: Canc elled via OM: Order cancelled - Patient discharged Performed By: #### L 500.2500 ####[facility] [address] [place], [address] Potassium Normal 3.3-5.1 [facility] Comment on above: Result Comment: Canc elled via OM: Order cancelled - Patient discharged Performed By: #### L 500.2500 ####[facility] [address] [place], [address] Basic Metabolic Profile (BMP) Normal 133-145 [facility] Comment on above: Result Comment: Canc elled via OM: Order cancelled - Patient discharged Performed By: #### L 500.2500 ####[facility] [address] [place], [address] Anion gap in Serum or Plasma Ordered By: Jonh Shen on 10-31-2024 Anion gap [Moles/Vol] 10 mmol/L - [facility] BUN/creatinine ratioOrdered By: Jonh Shen on 10-31-2024 Urea nitrogen/Creatinine [Mass ratio] 33.8 mg/mg High - [facility] Basic Metabolic Profile (BMP )on 10-31-2024 BUN/CRE 33.8 RATIO High 10-20 [facility] Comment on above: Performed By: #### L 500.2500 ####[facility] [address] [place], [address] Calcium [Mass/Vol] 8.8 mg/dL Normal 7.6-11.0 [facility] Comment on above: Performed By: #### L 500.2500 ####[facility] [address] [place], [address] Chloride [Moles/Vol] 99 mmol/L Normal 98-108 [facility] Comment on above: Performed By: #### L 500.2500 ####[facility] [address] [place], [address] CO2 [Moles/Vol] 31.5 mmol/L Normal 21.0-32.0 [facility] Comment on above: Performed By: #### L 500.2500 ####[facility] [address] [place], [address] Creatinine [Mass/Vol] 1.03 mg/dL Normal 0.70-1.20 [facility] Comment on above: Performed By: #### L 500.2500 ####[facility] [address] [place], [address] ECRCL 73.72 ml/min Normal 50-250 [facility] Comment on above: Performed By: #### L 500.2500 ####[facility] [address] [place], [address] GAP 10 Normal 5-15 [facility] Comment on above: Performed By: #### L 500.2500 ####[facility] [address] [place], [address] GFR/1.73 sq M.predicted among non-blacks MDRD (S/P/Bld) [Vol rate/Area] 72 mL/min/{1.73_m2} Normal >60 [facility] Comment on above: Result Comment: mL/m in/1.73m2 CKD-EPI Creatinine Equation (2020) Performed By: #### L 500.2500 ####[facility] [address] [place], [address] Glucose [Mass/Vol] 115 mg/dL High 70-99 [facility] Comment on above: Performed By: #### L 500.2500 ####[facility] [address] [place], [address] Potassium [Moles/Vol] 3.4 mmol/L Normal 3.3-5.1 [facility] Comment on above: Performed By: #### L 500.2500 ####[facility] [address] [place], [address] Sodium [Moles/Vol] 141 mmol/L Normal 133-145 [facility] Comment on above: Performed By: #### L 500.2500 ####[facility] [address] [place], [address] Urea nitrogen [Mass/Vol] 35 mg/dL High 4-19 [facility] Comment on above: Performed By: #### L 500.2500 ####[facility] [address] [place], [address] Carbon dioxide, total [Moles /volume] in Central venous bloodOrdered By: Jonh Shen on 10-31-2024 CO2 [Moles/Vol] 31.5 mmol/L 21.0-32.0 [facility] Chloride assayOrdered By: Nirav Shen on 10-31-2024 Chloride [Moles/Vol] 99 mmol/L 98-108 [facility] Glomerular filtration rate ( GFR) estimation/1.73 sq m using serum, plasma, or whole bOrdered By: Jonh Shen on 10-31-2024 GFR/1.73 sq M.predicted among non-blacks MDRD (S/P/Bld) [Vol rate/Area] 72 mL/min/{1.73_m2} >60 [facility] Comment on above: mL/min/1.73m2 CKD-EP I Creatinine Equation (2020) Potassium measurement (mass/ volume)Ordered By: Jonh Shen on 10-31-2024 Potassium (Unsp spec) [Mass/Vol] 3.4 mmol/L 3.3-5.1 [facility] Serum creatinine measurement (mass/volume)Ordered By: Jonh Shen on 10-31-2024 Creatinine [Mass/Vol] 1.03 mg/dL 0.70-1.20 [facility] Serum glucose measurement (m ass/volume)Ordered By: Jonh Shen on 10-31-2024 Glucose [Mass/Vol] 115 mg/dL High 70-99 [facility] Serum or plasma calcium tristan urement (mass/volume)Ordered By: Jonh Shen on 10-31-2024 Calcium [Mass/Vol] 8.8 mg/dL 7.6-11.0 [facility] Serum or plasma urea nitroge n measurement (mass/volume)Ordered By: Jonh Shen on 10-31-2024 Urea nitrogen [Mass/Vol] 35 mg/dL High 4-19 [facility] Sodium levelOrdered By: Jonh Shen on 10-31-2024 Sodium [Moles/Vol] 141 mmol/L 133-145 [facility] Basic Metabolic Profile (BMP )on 10-30-2024 BUN/CRE 29.1 RATIO High 10-20 [facility] Comment on above: Performed By: #### L 500.2500 ####[facility] [address] [place], [address] Calcium [Mass/Vol] 8.5 mg/dL Normal 7.6-11.0 [facility] Comment on above: Performed By: #### L 500.2500 ####[facility] [address] [place], [address] Chloride [Moles/Vol] 99 mmol/L Normal 98-108 [facility] Comment on above: Performed By: #### L 500.2500 ####[facility] [address] [place], [address] CO2 [Moles/Vol] 33.0 mmol/L High 21.0-32.0 [facility] Comment on above: Performed By: #### L 500.2500 ####[facility] [address] [place], [address] Creatinine [Mass/Vol] 1.15 mg/dL Normal 0.70-1.20 [facility] Comment on above: Performed By: #### L 500.2500 ####[facility] [address] [place], [address] ECRCL 66.02 ml/min Normal 50-250 [facility] Comment on above: Performed By: #### L 500.2500 ####[facility] [address] [place], [address] GAP 9 Normal 5-15 [facility] Comment on above: Performed By: #### L 500.2500 ####[facility] [address] [place], [address] GFR/1.73 sq M.predicted among non-blacks MDRD (S/P/Bld) [Vol rate/Area] 63 mL/min/{1.73_m2} Normal >60 [facility] Comment on above: Result Comment: mL/m in/1.73m2 CKD-EPI Creatinine Equation (2020) Performed By: #### L 500.2500 ####[facility] [address] [place], [address] Glucose [Mass/Vol] 132 mg/dL High 70-99 [facility] Comment on above: Performed By: #### L 500.2500 ####[facility] [address] [place], [address] Potassium [Moles/Vol] 3.5 mmol/L Normal 3.3-5.1 [facility] Comment on above: Performed By: #### L 500.2500 ####[facility] [address] [place], [address] Sodium [Moles/Vol] 141 mmol/L Normal 133-145 [facility] Comment on above: Performed By: #### L 500.2500 ####[facility] [address] [place], [address] Urea nitrogen [Mass/Vol] 34 mg/dL High 4-19 [facility] Comment on above: Performed By: #### L 500.2500 ####[facility] [address] [place], [address] Hemoglobin A1con 10-30-2024 HbA1c (Bld) [Mass fraction] 6.0 % High <=5.6 [facility] Comment on above: Order Comment: Comme nts: Can add on to AM labs Result Comment: Norm al < 5.7 % Prediabetic 5.7 - 6.4 % Diabetic >or= 6.5 % Please note range changes. Performed By: #### L 501.9985 ####[facility] [address] [place], [address] Hemoglobin A1c percentageOrd ered By: Jonh Shen on 10-30-2024 HbA1c (Bld) [Mass fraction] 6.0 % High <5.7 [facility] Comment on above: Normal < 5.7 % Predi abetic 5.7 - 6.4 % Diabetic >or= 6.5 % Please note range changes. Urine Cultureon 10-30-2024 URC Culture exhibits no growth. Normal [facility] Comment on above: Performed By: #### M 100.2200, L400.0001 ####[facility] [address] [place], [place], [id number] Absolute lymphocyte countOrd ered By: Jonh Shen on 10-29-2024 Lymphocytes Auto (Unsp spec) [#/Vol] 0.41 10*3/uL Low 0.83-4.51 [facility] Absolute neutrophil countOrd ered By: oJnh Shen on 10-29-2024 Neutrophils (Bld) [#/Vol] 8.1 10*3/uL High 2.0-7.7 [facility] Automated lymphocyte count a s percentage of total leukocytesOrdered By: Jonh Shen on 10-29-2024 Lymphocytes/100 WBC Auto (Unsp spec) 4.5 % Low 19-41 [facility] Basic Metabolic Profile (BMP )on 10-29-2024 BUN/CRE 20.6 RATIO High 10-20 [facility] Comment on above: Performed By: #### L 500.2500, L100.0100 ####[facility] [address] [place], [address] Calcium [Mass/Vol] 8.6 mg/dL Normal 7.6-11.0 [facility] Comment on above: Performed By: #### L 500.2500, L100.0100 ####[facility] [address] [place], [address] Chloride [Moles/Vol] 100 mmol/L Normal 98-108 [facility] Comment on above: Performed By: #### L 500.2500, L100.0100 ####[facility] [address] [place], [address] CO2 [Moles/Vol] 29.7 mmol/L Normal 21.0-32.0 [facility] Comment on above: Performed By: #### L 500.2500, L100.0100 ####[facility] [address] [place], [address] Creatinine [Mass/Vol] 1.06 mg/dL Normal 0.70-1.20 [facility] Comment on above: Performed By: #### L 500.2500, L100.0100 ####[facility] [address] [place], [address] ECRCL 82.84 ml/min Normal 50-250 [facility] Comment on above: Performed By: #### L 500.2500, L100.0100 ####[facility] [address] [place], [address] GAP 12 Normal 5-15 [facility] Comment on above: Performed By: #### L 500.2500, L100.0100 ####[facility] [address] [place], [address] GFR/1.73 sq M.predicted among non-blacks MDRD (S/P/Bld) [Vol rate/Area] 69 mL/min/{1.73_m2} Normal >60 [facility] Comment on above: Result Comment: mL/m in/1.73m2 CKD-EPI Creatinine Equation (2020) Performed By: #### L 500.2500, L100.0100 ####[facility] [address] [place], [address] Glucose [Mass/Vol] 153 mg/dL High 70-99 [facility] Comment on above: Performed By: #### L 500.2500, L100.0100 ####[facility] [address] [place], [address] Potassium [Moles/Vol] 3.4 mmol/L Normal 3.3-5.1 [facility] Comment on above: Performed By: #### L 500.2500, L100.0100 ####[facility] [address] [place], [address] Sodium [Moles/Vol] 141 mmol/L Normal 133-145 [facility] Comment on above: Performed By: #### L 500.2500, L100.0100 ####[facility] [address] [place], [address] Urea nitrogen [Mass/Vol] 22 mg/dL High 4-19 [facility] Comment on above: Performed By: #### L 500.2500, L100.0100 ####[facility] [address] [place], [address] Basophil percentageOrdered B y: Jonh Shen on 10-29-2024 Basophils/100 WBC (Bld) 0.5 % 0-1 [facility] CBC W/Diff, Automatedon Absolute Lymph 0.41 X10 3/uL Low 0.83-4.51 [facility] Comment on above: Performed By: #### L 500.2500, L100.0100 ####[facility] [address] [place], [address] Absolute Neut 8.1 X10 3/uL High 2.0-7.7 [facility] Comment on above: Performed By: #### L 500.2500, L100.0100 ####[facility] [address] [place], [address] Basophils/100 WBC (Bld) 0.5 % Normal 0-1 [facility] Comment on above: Performed By: #### L 500.2500, L100.0100 ####[facility] [address] [place], [address] Eosinophils/100 WBC (Bld) 0.0 % Normal 0-5 [facility] Comment on above: Performed By: #### L 500.2500, L100.0100 ####[facility] [address] [place], [address] Erythrocyte distribution width (RBC) [Ratio] 17.6 % High 11.6-14.6 [facility] Comment on above: Performed By: #### L 500.2500, L100.0100 ####[facility] [address] [place], [address] Hematocrit (Bld) [Volume fraction] 43.1 % Normal 40-54 [facility] Comment on above: Performed By: #### L 500.2500, L100.0100 ####[facility] [address] [place], [address] Hemoglobin (Bld) [Mass/Vol] 13.8 g/dL Normal 13.0-16.5 [facility] Comment on above: Performed By: #### L 500.2500, L100.0100 ####[facility] [address] [place], [address] IG% 0.800 Normal 0.0-0.9 [facility] Comment on above: Result Comment: IG% - Immature Granulocytes (promyelocytes, myelocytes andmetamyelocytes) > 1% indicates that a LEFT SHIFT is Present. Performed By: #### L 500.2500, L100.0100 ####[facility] [address] [place], [address] Lymphocytes/100 WBC (Bld) 4.5 % Low 19-41 [facility] Comment on above: Performed By: #### L 500.2500, L100.0100 ####[facility] [address] [place], [address] MCH (RBC) [Entitic mass] 28.3 pg Normal 27.0-32.0 [facility] Comment on above: Performed By: #### L 500.2500, L100.0100 ####[facility] [address] [place], [address] MCHC (RBC) [Mass/Vol] 32.0 g/dL Normal 32-36 [facility] Comment on above: Performed By: #### L 500.2500, L100.0100 ####[facility] [address] [place], [address] MCV (RBC) [Entitic vol] 88.3 fL Normal 80-94 [facility] Comment on above: Performed By: #### L 500.2500, L100.0100 ####[facility] [address] [place], [address] Monocytes/100 WBC (Bld) 5.2 % Normal 0-10 [facility] Comment on above: Performed By: #### L 500.2500, L100.0100 ####[facility] [address] [place], [address] Neutrophils/100 WBC (Bld) 89.0 % High 47-70 [facility] Comment on above: Performed By: #### L 500.2500, L100.0100 ####[facility] [address] [place], [address] Nucleated RBC (Bld) [#/Vol] 0 10*3/uL Normal 0-5 [facility] Comment on above: Performed By: #### L 500.2500, L100.0100 ####[facility] [address] [place], [address] Platelet mean volume (Bld) [Entitic vol] 11.3 fL Normal 6.2-12.0 [facility] Comment on above: Performed By: #### L 500.2500, L100.0100 ####[facility] [address] [place], [address] Platelets (Bld) [#/Vol] 132 10*3/uL Low 150-450 [facility] Comment on above: Performed By: #### L 500.2500, L100.0100 ####[facility] [address] [place], [address] RBC (Bld) [#/Vol] 4.88 10*6/uL Normal 4.6-6.2 [facility] Comment on above: Performed By: #### L 500.2500, L100.0100 ####[facility] [address] [place], [address] RDW SD 57.4 fl High 35.1-43.9 [facility] Comment on above: Performed By: #### L 500.2500, L100.0100 ####[facility] [address] [place], [address] WBC (Bld) [#/Vol] 9.2 10*3/uL Normal 4.4-11.0 [facility] Comment on above: Performed By: #### L 500.2500, L100.0100 ####[facility] [address] [place], [address] Echocardiogram study reportO rdered By: Ayanna Joyce on 10-29-2024 Study report [facility] [address] [place] [address] Echo Complete W/ Contrast 10/29/24 0851 MR#: [id number] Acct: [id number] Name: REGAN ARANGO Rep #:[id number] : 1940 83 From: Ayanna Joyce MD Attending Dr: Dr. Jonh Shen DO Status: ADM IN Ordering Dr: Jonh Shen DO Date: Location: [facility] Sex: M C Admitted: 10/28/24 Reason For Study Reason For Study: CHF Procedure This was a 2D Doppler, Color Flow transthoracic echocardiogram. The study was technically difficult. Due to body habitus. Contrast injection was performed. Exam performed portable in patient room. Left Ventricle Mild concentric left ventricular hypertrophy. Normal LV size. The LV systolic function is normal. EF is 55 %. Stage 3 diastolic dysfunction. Right Ventricle Normal right ventricle. Atria The left and right atria are normal. Mitral Valve Trivial to mild mitral valve regurgitation. Tricuspid Valve Mild tricuspid valve insufficiency. Right ventricular systolic pressure estimated to be 44 mmHg. Aortic Valve Trisinus/trileaflet aortic valve. Pulmonic Valve The pulmonic valve is not well visualized. Great Vessels Mildly dilated aortic root. Pericardium/Pleural No pericardial effusion. Medication Diluted definity 3.0ml given slow IV push to enhance endocardial definition. MMode/2D Measurements & Calculations LVIDd: 5.8 cm IVSd: 1.2 cm Ao root diam: 3.9 cm LVIDs: 4.2 cm LVPWd: 1.0 cm LA dimension: 4.0 cm RVDd: 4.0 cm FS: 27.6 % LAV(MOD-bp): 89.7 ml LVAd ap4: 33.5 cm2 LVAd ap2: 30.3 cm2 LAV(MOD-bp) Indexed: 32.6 ml/m2 LVLd ap4: 7.9 cm LVLd ap2: 8.3 cm LAV(MOD-sp2): 81.9 ml EDV(MOD-sp4): 117.0 ml EDV(MOD-sp2): 91.3 ml LAV(MOD-sp4): 87.6 ml EDV(sp4-el): 120.3 ml EDV(sp2-el): 93.4 ml LVAs ap4: 22.6 cm2 LVAs ap2: 19.1 cm2 LVLs ap4: 7.7 cm LVLs ap2: 7.2 cm ESV(MOD-sp4): 54.9 ml ESV(MOD-sp2): 42.8 ml ESV(sp4-el): 56.5 ml ESV(sp2-el): 43.0 ml EF(MOD-sp4): 53.1 % EF(MOD-sp2): 53.1 % EF(sp4-el): 53.0 % SV(MOD-sp4): 62.1 ml SV(MOD-sp2): 48.5 ml SV(sp4-el): 63.8 ml SI(MOD-sp4): 22.6 ml/m2 SI(MOD-sp2): 17.6 ml/m2 LA A4 area: 28.3 cm2 LA dimension(2D): 5.2 cm RA A4 area: 16.2 cm2 TAPSE: 2.1 cm Time Measurements MV dec time: 0.20 sec Doppler Measurements & Calculations MV E max moises: 82.2 cm/sec Lat Peak E' Moises: 11.4 cm/sec Med Peak E' Moises: 10.1 cm/sec MV A max moises: 27.9 cm/sec E/E' lat: 7.2 E/E' med: 8.1 MV E/A: 2.9 Ao V2 max: 135.6 cm/sec LV V1 max: 96.9 cm/sec PA V2 max: 114.5 cm/sec Ao max P.4 mmHg LV V1 max P.8 mmHg PA V2 mean: 90.0 cm/sec Ao V2 mean: 106.3 cm/sec LV V1 mean P.2 mmHg Ao mean P.8 mmHg LV V1 mean: 71.2 cm/sec Ao V2 VTI: 27.8 cm LV V1 VTI: 18.1 cm AV (velocity ratio): 0.65 TR max moises: 271.3 cm/sec TR max P.5 mmHg ECHO/Echo Complete W/ Contrast Interpretation Summary The study was technically difficult. Mild concentric left ventricular hypertrophy. The LV systolic function is normal. EF is 55 %. Stage 3 diastolic dysfunction. Trivial to mild mitral valve regurgitation. Mild tricuspid valve insufficiency. Right ventricular systolic pressure estimated to be 44 mmHg. Mildly dilated aortic root. Ordering Physician: Jonh Shen Referring Physician: Jose Fam Performed By: Bharati Pabon, LUZ, RVT 10/29/24 1136 Date _ Ayanna Joyce MD CC: Dr. Jonh Shen DO; Dr. Jose Fam MD ~ Date Dictated: 10/29/24 0851 Date Transcribed: 10/29/24 113 Sterile Process Coordinator: Signed [facility] Work Phone: Eosinophil percentageOrdered By: Jonh Shen on 10-29-2024 Eosinophils/100 WBC (Bld) 0.0 % 0-5 [facility] Erythrocyte distribution wid th ratioOrdered By: Jonh Shen on 10-29-2024 Erythrocyte distribution width (RBC) [Ratio] 17.6 % High 11.6-14.6 [facility] Erythrocyte distribution wid th standard deviationOrdered By: Jonh Shen on 10-29-2024 Erythrocyte distribution width (RBC) [Ratio] 57.4 fl High 35.1-43.9 [facility] Hematocrit Auto (Bld) [Volum e fraction]Ordered By: Jonh Shen on 10-29-2024 Hematocrit (Bld) [Volume fraction] 43.1 % 40-54 [facility] Hemoglobin measurementOrdere d By: Jonh Shen on 10-29-2024 Hemoglobin (Bld) [Mass/Vol] 13.8 g/dL 13.0-16.5 [facility] Immature granulocytes/100 WB C Auto (Bld)Ordered By: Jonh Shen on 10-29-2024 Immature granulocytes/100 WBC (Bld) 0.800 % 0.0-0.9 [facility] Comment on above: IG% - Immature Granu locytes (promyelocytes, myelocytes and metamyelocytes) > 1% indicates that a LEFT SHIFT is Present. L503.7505on 10-29-2024 Natriuretic peptide B (Bld) [Mass/Vol] 2505 pg/mL High <=1800 [facility] Comment on above: Result Comment: Hear t Failure Unlikely: < 300 pg/mLHeart Failure Likely< 50 Years: > 450 pg/mL50-75 Years: > 900 pg/mL>75 Years: > 1800 pg/mL Performed By: #### L 503.7505 ####[facility] [address] [place], [address] MCV (mean corpuscular volume ) determinationOrdered By: Jonh Shen on 10-29-2024 MCV (RBC) [Entitic vol] 88.3 fL 80-94 [facility] Mean corpuscular hemoglobin (MCH) determinationOrdered By: Jonh Shen on 10-29-2024 MCH (RBC) [Entitic mass] 28.3 pg 27.0-32.0 [facility] Mean corpuscular hemoglobin concentration (MCHC) determinationOrdered By: Jonh Shen on 10-29-2024 MCHC (RBC) [Mass/Vol] 32.0 g/dL 32-36 [facility] Mean platelet volume determi nationOrdered By: Jonh Shen on 10-29-2024 Platelet mean volume (Bld) [Entitic vol] 11.3 fL 6.2-12.0 [facility] Monocyte percentageOrdered B y: Jonh Shen on 10-29-2024 Monocytes/100 WBC (Bld) 5.2 % 0-10 [facility] Neutrophil percentageOrdered By: Jonh Shen on 10-29-2024 Neutrophils/100 WBC (Bld) 89.0 % High 47-70 [facility] Nucleated red blood cell per centageOrdered By: Jonh Shen on 10-29-2024 Nucleated RBC/100 WBC (Bld) [Ratio] 0 % 0-5 [facility] Platelet countOrdered By: Nirav Shen on 10-29-2024 Platelets (Bld) [#/Vol] 132 10*3/uL Low 150-450 [facility] RBC Auto (Bld) [#/Vol]Ordere d By: Jonh Shen on 10-29-2024 RBC (Bld) [#/Vol] 4.88 10*6/uL 4.6-6.2 [facility] White blood cell (WBC) count Ordered By: Jonh Shen on 10-29-2024 WBC (Bld) [#/Vol] 9.2 10*3/uL 4.4-11.0 [facility] Absolute lymphocyte countOrd ered By: Albert Swan on 10-28-2024 Lymphocytes Auto (Unsp spec) [#/Vol] 0.20 10*3/uL Low 0.83-4.51 [facility] Absolute neutrophil countOrd ered By: Albert Swan on 10-28-2024 Neutrophils (Bld) [#/Vol] 8.4 10*3/uL High 2.0-7.7 [facility] Anion gap in Serum or Plasma Ordered By: Albert Swan on 10-28-2024 Anion gap [Moles/Vol] 12 mmol/L 5-15 [facility] Assessment of wrist artery p atency prior to arterial punctureOrdered By: Jonh Shen on 10-28-2024 Arterial patency Wrist artery --pre arterial puncture Positive [facility] Automated blood erythrocyte countOrdered By: Albert Swan on 10-28-2024 RBC (Bld) [#/Vol] 4.92 10*6/uL Normal 4.6-6.2 [facility] Comment on above: Performed By: #### L 500.2500, L100.0100 ####[facility] [address] [place], [address] Automated blood hematocrit ( percentage)Ordered By: Albert Swan on 10-28-2024 Hematocrit (Bld) [Volume fraction] 43.0 % Normal 40-54 [facility] Comment on above: Performed By: #### L 500.2500, L100.0100 ####[facility] [address] [place], [address] Automated lymphocyte count a s percentage of total leukocytesOrdered By: Albert Swan on 10-28-2024 Lymphocytes/100 WBC Auto (Unsp spec) 2.2 % Low 19-41 [facility] BUN/creatinine ratioOrdered By: Albert Swan on 10-28-2024 Urea nitrogen/Creatinine [Mass ratio] 21.4 mg/mg High 10-20 [facility] Basic Metabolic Profile (BMP )on 10-28-2024 BUN/CRE 21.4 RATIO High 10-20 [facility] Comment on above: Performed By: #### L 500.2500, L100.0100 ####[facility] [address] [place], [address] ECRCL 70.96 ml/min Normal 50-250 [facility] Comment on above: Performed By: #### L 500.2500, L100.0100 ####[facility] [address] [place], [address] GAP 12 Normal 5-15 [facility] Comment on above: Performed By: #### L 500.2500, L100.0100 ####[facility] [address] [place], [address] Potassium [Moles/Vol] 4.1 mmol/L Normal 3.3-5.1 [facility] Comment on above: Performed By: #### L 500.2500, L100.0100 ####[facility] [address] [place], [address] Basophil percentageOrdered B y: Albert Swan on 10-28-2024 Basophils/100 WBC (Bld) 0.6 % Normal 0-1 [facility] Comment on above: Performed By: #### L 500.2500, L100.0100 ####[facility] [address] [place], [address] Bilirubin Test strip Ql (U)O rdered By: Jessica Vasquez on 10-28-2024 Bilirubin Ql (U) Negative Negative [facility] NAVEEN TEST Positive Normal [facility] Comment on above: Performed By: #### L 9000.0800 ####[facility] [address] [place], [address] Base excess Calc (Bld) [Moles/Vol] 11 mmol/L High -2 to +2 [facility] Comment on above: Performed By: #### L 9000.0800 ####[facility] [address] [place], [address] Blood Gas Type ART Normal [facility] Comment on above: Performed By: #### L 9000.0800 ####[facility] [address] [place], [address] CO2 [Moles/Vol] 38 mmol/L Normal [facility] Comment on above: Performed By: #### L 9000.08 ####[facility] [address] [place], [address] FI02 3.0 Normal [facility] Comment on above: Performed By: #### L 8999.08 ####[facility] [address] [place], [address] HCO3 (Bld) [Moles/Vol] 35.7 mmol/L High 22-26 [facility] Comment on above: Performed By: #### L 8999.0800 ####[facility] [address] [place], [address] Mode Not entered [facility] Comment on above: Performed By: #### L 8999.08 ####[facility] [address] [place], [address] O2 Delivery Dev Cannula Normal [facility] Comment on above: Performed By: #### L 8999.08 ####[facility] [address] [place], [address] pCO2 59.3 mmHg High 35-45 [facility] Comment on above: Performed By: #### L 0.08 ####[facility] [address] [place], [address] pH (Bld) 7.39 [pH] Normal 7.35-7.45 [facility] Comment on above: Performed By: #### L 8999.0800 ####[facility] [address] [place], [address] PO2 87 mmHG Normal 75-100 [facility] Comment on above: Performed By: #### L 0.0800 ####[facility] [address] [place], [address] SITE L Radial Normal [facility] Comment on above: Performed By: #### L 0.0800 ####[facility] [address] [place], [address] SO2 96 Normal 95-99 [facility] Comment on above: Performed By: #### L 9000.0800 ####[facility] [address] [place], [address] Blood base excess determinat ionOrdered By: Jonh Shen on 10-28-2024 Base excess Calc (BldV) [Moles/Vol] 11 mmol/L High -2-2 [facility] Blood bicarbonate measuremen tOrdered By: Jonh Shen on 10-28-2024 HCO3 (Bld) [Moles/Vol] 35.7 mmol/L High 22-26 [facility] CBC W/Diff, Automatedon 05-0 Absolute Lymph 0.20 X10 3/uL Low 0.83-4.51 [facility] Comment on above: Performed By: #### L 500.2500, L100.0100 ####[facility] [address] [place], [address] Absolute Neut 8.4 X10 3/uL High 2.0-7.7 [facility] Comment on above: Performed By: #### L 500.2500, L100.0100 ####[facility] [address] [place], [address] IG% 0.700 Normal 0.0-0.9 [facility] Comment on above: Result Comment: IG% - Immature Granulocytes (promyelocytes, myelocytes andmetamyelocytes) > 1% indicates that a LEFT SHIFT is Present. Performed By: #### L 500.2500, L100.0100 ####[facility] [address] [place], [address] Lymphocytes/100 WBC (Bld) 2.2 % Low 19-41 [facility] Comment on above: Performed By: #### L 500.2500, L100.0100 ####[facility] [address] [place], [address] Nucleated RBC (Bld) [#/Vol] 0 10*3/uL Normal 0-5 [facility] Comment on above: Performed By: #### L 500.2500, L100.0100 ####[facility] [address] [place], [address] RDW SD 57.6 fl High 35.1-43.9 [facility] Comment on above: Performed By: #### L 500.2500, L100.0100 ####[facility] [address] [place], [address] CNPTOUTREACHon 10-28-2024 CNPTOUTREACH Normal [facility] Carbon dioxide, total [Moles /volume] in Central venous bloodOrdered By: Albert Swan on 10-28-2024 CO2 [Moles/Vol] 26.5 mmol/L Normal 21.0-32.0 [facility] Comment on above: Performed By: #### L 500.2500, L100.0100 ####[facility] [address] [place], [place], [address] Chest 1 View (Portable)on Chest 1 View (Portable) Normal [facility] Chest PA and Lateralon 10-28 Chest PA and Lateral Normal [facility] Chloride assayOrdered By: Erasto Swan on 10-28-2024 Chloride [Moles/Vol] 102 mmol/L Normal 98-108 [facility] Comment on above: Performed By: #### L 500.2500, L100.0100 ####[facility] [address] [place], [address] Echo Complete W/ Contraston 10-28-2024 Echo Complete W/ Contrast Normal [facility] Emergency Department Summary on 10-28-2024 Emergency Department Summary Normal [facility] Eosinophil percentageOrdered By: Albert Swan on 10-28-2024 Eosinophils/100 WBC (Bld) 0.2 % Normal 0-5 [facility] Comment on above: Performed By: #### L 500.2500, L100.0100 ####[facility] [address] [place], [address] Erythrocyte distribution wid th ratioOrdered By: Albert Swan on 10-28-2024 Erythrocyte distribution width (RBC) [Ratio] 18.2 % High 11.6-14.6 [facility] Comment on above: Performed By: #### L 500.2500, L100.0100 ####[facility] [address] [place], [address] Erythrocyte distribution wid th standard deviationOrdered By: Albert Swan on 10-28-2024 Erythrocyte distribution width (RBC) [Ratio] 57.6 fl High 35.1-43.9 [facility] Glomerular filtration rate ( GFR) estimation/1.73 sq m using serum, plasma, or whole bOrdered By: Albert Swan on 10-28-2024 GFR/1.73 sq M.predicted among non-blacks MDRD (S/P/Bld) [Vol rate/Area] 68 mL/min/{1.73_m2} Normal >60 [facility] Comment on above: mL/min/1.73m2 CKD-EP I Creatinine Equation (2020) Result Comment: mL/m in/1.73m2 CKD-EPI Creatinine Equation (2020) Performed By: #### L 500.2500, L100.0100 ####[facility] [address] [place], [address] H AND P Exam - Hospitaliston 10-28-2024 H&P Exam - Hospitalist Normal [facility] Hemoglobin measurementOrdere d By: Albert Swan on 10-28-2024 Hemoglobin (Bld) [Mass/Vol] 13.8 g/dL Normal 13.0-16.5 [facility] Comment on above: Performed By: #### L 500.2500, L100.0100 ####[facility] [address] [place], [address] Hyaline casts LM.LPF (Urine sed) [#/Area]Ordered By: Jessica Vasquez on 10-28-2024 Hyaline casts (Urine sed) [#/Area] 0 /[LPF] 0-5 [facility] Immature granulocytes/100 WB C Auto (Bld)Ordered By: Albert Swan on 10-28-2024 Immature granulocytes/100 WBC (Bld) 0.700 % 0.0-0.9 [facility] Comment on above: IG% - Immature Granu locytes (promyelocytes, myelocytes and metamyelocytes) > 1% indicates that a LEFT SHIFT is Present. Influenza virus A and B and SARS-CoV-2 (COVID-19) and Respiratory syncytial virus RNAOrdered By: Albert Swan on 10-28-2024 SARS-CoV-2 (COVID-19) RNA ERNIE+probe Ql (Unsp spec) [facility] Ketones Test strip Ql (U)Ord ered By: Jessica Vasquez on 10-28-2024 Ketones Ql (U) Negative Negative [facility] L503.7505on 10-28-2024 Natriuretic peptide B (Bld) [Mass/Vol] 2134 pg/mL High <=1800 [facility] Comment on above: Result Comment: Hear t Failure Unlikely: < 300 pg/mLHeart Failure Likely< 50 Years: > 450 pg/mL50-75 Years: > 900 pg/mL>75 Years: > 1800 pg/mL Performed By: #### L 503.7505 ####[facility] [address] [place], [address] M100.678on 10-28-2024 M100.678 Pending SARS-CoV-2 (COVID 19) Negative INFLUENZA A Negative INFLUENZA B Negative RSV PCR Negative Normal [facility] Comment on above: Performed By: #### M 100.678 ####[facility] [address] [place], [place], [id number] MCV (mean corpuscular volume ) determinationOrdered By: Albert Swan on 10-28-2024 MCV (RBC) [Entitic vol] 87.4 fL Normal 80-94 [facility] Comment on above: Performed By: #### L 500.2500, L100.0100 ####[facility] [address] [place], [address] Mean corpuscular hemoglobin (MCH) determinationOrdered By: Albert Swan on 10-28-2024 MCH (RBC) [Entitic mass] 28.0 pg Normal 27.0-32.0 [facility] Comment on above: Performed By: #### L 500.2500, L100.0100 ####[facility] [address] [place], [address] Mean corpuscular hemoglobin concentration (MCHC) determinationOrdered By: Albert Swan on 10-28-2024 MCHC (RBC) [Mass/Vol] 32.1 g/dL Normal 32-36 [facility] Comment on above: Performed By: #### L 500.2500, L100.0100 ####[facility] [address] [place], [address] Mean platelet volume determi nationOrdered By: Albert Swan on 10-28-2024 Platelet mean volume (Bld) [Entitic vol] 10.7 fL Normal 6.2-12.0 [facility] Comment on above: Performed By: #### L 500.2500, L100.0100 ####[facility] [address] [place], [address] Measurement, pHOrdered By: Evan Shen on 10-28-2024 pH (Unsp spec) 7.39 [pH] 7.35-7.45 [facility] Microscopic analysis of urin e for red blood cells (RBC)Ordered By: Jessica Vasquez on 10-28-2024 Microscopic analysis of urine for red blood cells (RBC) 0-5 SEEN /hpf 0-5 [facility] Monocyte percentageOrdered B y: Albert Swan on 10-28-2024 Monocytes/100 WBC (Bld) 4.3 % Normal 0-10 [facility] Comment on above: Performed By: #### L 500.2500, L100.0100 ####[facility] [address] [place], [place], [id number] Mucus LM Ql (Urine sed)Order ed By: Jessica Vasquez on 10-28-2024 Mucus Ql (Urine sed) 1+ /hpf [facility] Natriuretic peptide.B prohor ara N-Terminal [Mass/volume] in Serum or PlasmaOrdered By: Jessica Vasquez on 10-28-2024 Natriuretic peptide.B prohormone N-Terminal [Mass/Vol] 2505 pg/mL High <1800 [facility] Comment on above: Heart Failure Unlike ly: < 300 pg/mLHeart Failure Likely< 50 Years: > 450 pg/mL50-75 Years: > 900 pg/mL>75 Years: > 1800 pg/mL Natriuretic peptide.B prohor ara N-Terminal [Mass/volume] in Serum or PlasmaOrdered By: Albert Swan on 10-28-2024 Natriuretic peptide.B prohormone N-Terminal [Mass/Vol] 2134 pg/mL High <1800 [facility] Comment on above: Heart Failure Unlike ly: < 300 pg/mLHeart Failure Likely< 50 Years: > 450 pg/mL50-75 Years: > 900 pg/mL>75 Years: > 1800 pg/mL Neutrophil percentageOrdered By: Albert Swan on 10-28-2024 Neutrophils/100 WBC (Bld) 92.0 % High 47-70 [facility] Comment on above: Performed By: #### L 500.2500, L100.0100 ####[facility] [address] [place], [address] Nitrite Test strip Ql (U)Ord ered By: Jessica Vasquez on 10-28-2024 Nitrite Ql (U) Negative Negative [facility] No Panel InformationOrdered By: Jonh Shen on 10-28-2024 Blood Gas Sample Site L Radial [facility] Blood Gas Specimen Type ART [facility] Blood Gas Vent Mode Not entered [facility] Oxygen Delivery Device Cannula [facility] Nucleated red blood cell per centageOrdered By: Albert Swan on 10-28-2024 Nucleated RBC/100 WBC (Bld) [Ratio] 0 % 0-5 [facility] Platelet countOrdered By: Erasto Swan on 10-28-2024 Platelets (Bld) [#/Vol] 136 10*3/uL Low 150-450 [facility] Comment on above: Performed By: #### L 500.2500, L100.0100 ####[facility] [address], [address] Potassium measurement (mass/ volume)Ordered By: Albert Swan on 10-28-2024 Potassium (Unsp spec) [Mass/Vol] 4.1 mmol/L 3.3-5.1 [facility] Protein Test strip Ql (U)Ord ered By: Jessica Vasquez on 10-28-2024 Protein Ql (U) 100 mg/dl High Negative [facility] Serum creatinine measurement (mass/volume)Ordered By: Albert Swan on 10-28-2024 Creatinine [Mass/Vol] 1.07 mg/dL Normal 0.70-1.20 [facility] Comment on above: Performed By: #### L 500.2500, L100.0100 ####[facility] [address] [place], [address] Serum glucose measurement (m ass/volume)Ordered By: Albert Swan on 10-28-2024 Glucose [Mass/Vol] 148 mg/dL High 70-99 [facility] Comment on above: Performed By: #### L 500.2500, L100.0100 ####[facility] [address] [place], [address] Serum or plasma calcium tristan urement (mass/volume)Ordered By: Albert Swan on 10-28-2024 Calcium [Mass/Vol] 9.0 mg/dL Normal 7.6-11.0 [facility] Comment on above: Performed By: #### L 500.2500, L100.0100 ####[facility] [address] [place], [address] Serum or plasma urea nitroge n measurement (mass/volume)Ordered By: Albert Swan on 10-28-2024 Urea nitrogen [Mass/Vol] 23 mg/dL High 4-19 [facility] Comment on above: Performed By: #### L 500.2500, L100.0100 ####[facility] [address] [place], [address] Sodium levelOrdered By: Albert Swan on 10-28-2024 Sodium [Moles/Vol] 140 mmol/L Normal 133-145 [facility] Comment on above: Performed By: #### L 500.2500, L100.0100 ####[facility] [address] [place], [address] Squamous epithelial cells de tection in urine sediment by light microscopyOrdered By: Jessica Vasquez on 10-28-2024 Epithelial cells.squamous LM Ql (Urine sed) 0-5 SEEN /hpf 0-5 [facility] Total carbon dioxide measure mentOrdered By: Jonh Shen on 10-28-2024 CO2 [Moles/Vol] 38 mmol/L [facility] Urinalysis, Completeon 10-28 CAST,HYALINE 0-5 SEEN Normal 0-5 [facility] Comment on above: Order Comment: CLEAN CATCH Performed By: #### M 100.2200, L400.0001 ####[facility] [address] [place], [address] EPI,SQUAMOUS 0-5 SEEN Normal 0-5 [facility] Comment on above: Order Comment: CLEAN CATCH Performed By: #### M 100.2200, L400.0001 ####[facility] [address] [place], [address] Mucus Ql (Urine sed) 1+ /hpf Normal [facility] Comment on above: Order Comment: CLEAN CATCH Performed By: #### M 100.2200, L400.0001 ####[facility] [address] [place], [address] RBC 0-5 SEEN Normal 0-5 [facility] Comment on above: Order Comment: CLEAN CATCH Performed By: #### M 100.2200, L400.0001 ####[facility] [address] [place], [address] WBC 0-5 SEEN Normal 0-5 [facility] Comment on above: Order Comment: CLEAN CATCH Performed By: #### M 100.2200, L400.0001 ####[facility] [address] [place], [address] BACTERIA 0 SEEN Normal None Seen [facility] Comment on above: Order Comment: CLEAN CATCH Performed By: #### M 100.2200, L400.0001 ####[facility] [address] [place], [address] Urine clarityOrdered By: Carlos Vasquez on 10-28-2024 Clarity (U) Clear Clear [facility] Urine color determinationOrd ered By: Jessica Vasquez on 10-28-2024 Color (U) Straw Yellow [facility] Urine cultureOrdered By: Carlos Vasquez on 10-28-2024 Bacteria identified Cx Nom (U) Culture exhibits no growth. [facility] Urine glucose detectionOrder ed By: Jessica Vasquez on 10-28-2024 Glucose Ql (U) Normal mg/dl Normal [facility] Urine leukocyte esterase det ection by dipstickOrdered By: Jessica Vasquez on 10-28-2024 Leukocyte esterase Test strip Ql (U) Negative Negative [facility] Urine pHOrdered By: Jessica hanson on 10-28-2024 pH (U) 6.0 [pH] 5.0 - 8.0 [facility] Urine sediment bacteria coun t by microscopy (number/high power field)Ordered By: Jessica Vasquez on 10-28-2024 Bacteria LM.HPF (Urine sed) [#/Area] 0 /[HPF] None Seen [facility] Urine specific gravity measu rementOrdered By: Jessica Vasquez on 10-28-2024 Specific gravity (U) [Rel density] 1.015 1.002-1.030 [facility] Urine urobilinogen measureme ntOrdered By: Jessica Vasquez on 10-28-2024 Urobilinogen Ql (U) Normal mg/dl Normal [facility] White blood cell (WBC) count Ordered By: Albert Swan on 10-28-2024 WBC (Bld) [#/Vol] 9.1 10*3/uL Normal 4.4-11.0 [facility] Comment on above: Performed By: #### L 500.2500, L100.0100 ####[facility] [address] [place], [place], [id number] White blood cell countOrdere d By: Jessica Vasquez on 10-28-2024 White blood cell count 0-5 SEEN /hpf 0-5 [facility] Absolute lymphocyte countOrd ered By: Celina Wood on 10-27-2024 Lymphocytes Auto (Unsp spec) [#/Vol] 0.37 10*3/uL Low 0.83-4.51 [facility] Absolute neutrophil countOrd ered By: Celina Wood on 10-27-2024 Neutrophils (Bld) [#/Vol] 7.8 10*3/uL High 2.0-7.7 [facility] Anion gap in Serum or Plasma Ordered By: Celina Wood on 10-27-2024 Anion gap [Moles/Vol] 12 mmol/L 5-15 [facility] Automated lymphocyte count a s percentage of total leukocytesOrdered By: Celina Wood on 10-27-2024 Lymphocytes/100 WBC Auto (Unsp spec) 4.2 % Low 19-41 [facility] BUN/creatinine ratioOrdered By: Celina Wood on 10-27-2024 Urea nitrogen/Creatinine [Mass ratio] 20.6 mg/mg High 10-20 [facility] Basic Metabolic Profile (BMP )on 10-27-2024 BUN/CRE 20.6 RATIO High - [facility] Comment on above: Performed By: #### L 500.2500, L100.0100, L503.7505 ####[facility] [address] [place], [address] Calcium [Mass/Vol] 8.9 mg/dL Normal 7.6-11.0 [facility] Comment on above: Performed By: #### L 500.2500, L100.0100, L503.7505 ####[facility] [address] [place], [address] Chloride [Moles/Vol] 102 mmol/L Normal 98-108 [facility] Comment on above: Performed By: #### L 500.2500, L100.0100, L503.7505 ####[facility] [address] [place], [address] CO2 [Moles/Vol] 26.7 mmol/L Normal 21.0-32.0 [facility] Comment on above: Performed By: #### L 500.2500, L100.0100, L503.7505 ####[facility] [address] [place], [address] Creatinine [Mass/Vol] 1.24 mg/dL High 0.70-1.20 [facility] Comment on above: Performed By: #### L 500.2500, L100.0100, L503.7505 ####[facility] [address] [place], [address] GAP 12 Normal 5-15 [facility] Comment on above: Performed By: #### L 500.2500, L100.0100, L503.7505 ####[facility] [address] [place], [address] GFR/1.73 sq M.predicted among non-blacks MDRD (S/P/Bld) [Vol rate/Area] 57 mL/min/{1.73_m2} Low >60 [facility] Comment on above: Result Comment: mL/m in/1.73m2 CKD-EPI Creatinine Equation (2020) Performed By: #### L 500.2500, L100.0100, L503.7505 ####[facility] [address] [place], [address] Glucose [Mass/Vol] 142 mg/dL High 70-99 [facility] Comment on above: Performed By: #### L 500.2500, L100.0100, L503.7505 ####[facility] [address] [place], [address] Potassium [Moles/Vol] 4.3 mmol/L Normal 3.3-5.1 [facility] Comment on above: Performed By: #### L 500.2500, L100.0100, L503.7505 ####[facility] [address] [place], [address] Sodium [Moles/Vol] 141 mmol/L Normal 133-145 [facility] Comment on above: Performed By: #### L 500.2500, L100.0100, L503.7505 ####[facility] [address] [place], [address] Urea nitrogen [Mass/Vol] 26 mg/dL High 4-19 [facility] Comment on above: Performed By: #### L 500.2500, L100.0100, L503.7505 ####[facility] [address] [place], [address] Basophil percentageOrdered B y: Celina Wood on 10-27-2024 Basophils/100 WBC (Bld) 0.8 % 0-1 [facility] CBC W/Diff, Automatedon Absolute Lymph 0.37 X10 3/uL Low 0.83-4.51 [facility] Comment on above: Performed By: #### L 500.2500, L100.0100, L503.7505 ####[facility] [address] [place], [address] Absolute Neut 7.8 X10 3/uL High 2.0-7.7 [facility] Comment on above: Performed By: #### L 500.2500, L100.0100, L503.7505 ####[facility] [address] [place], [address] Basophils/100 WBC (Bld) 0.8 % Normal 0-1 [facility] Comment on above: Performed By: #### L 500.2500, L100.0100, L503.7505 ####[facility] [address] [place], [address] Eosinophils/100 WBC (Bld) 0.6 % Normal 0-5 [facility] Comment on above: Performed By: #### L 500.2500, L100.0100, L503.7505 ####[facility] [address] [place], [address] Erythrocyte distribution width (RBC) [Ratio] 17.8 % High 11.6-14.6 [facility] Comment on above: Performed By: #### L 500.2500, L100.0100, L503.7505 ####[facility] [address] [place], [address] Hematocrit (Bld) [Volume fraction] 41.1 % Normal 40-54 [facility] Comment on above: Performed By: #### L 500.2500, L100.0100, L503.7505 ####[facility] [address] [place], [address] Hemoglobin (Bld) [Mass/Vol] 13.1 g/dL Normal 13.0-16.5 [facility] Comment on above: Performed By: #### L 500.2500, L100.0100, L503.7505 ####[facility] [address] [place], [address] IG% 0.500 Normal 0.0-0.9 [facility] Comment on above: Result Comment: IG% - Immature Granulocytes (promyelocytes, myelocytes andmetamyelocytes) > 1% indicates that a LEFT SHIFT is Present. Performed By: #### L 500.2500, L100.0100, L503.7505 ####[facility] [address] [place], [address] Lymphocytes/100 WBC (Bld) 4.2 % Low 19-41 [facility] Comment on above: Performed By: #### L 500.2500, L100.0100, L503.7505 ####[facility] [address] [place], [address] MCH (RBC) [Entitic mass] 27.9 pg Normal 27.0-32.0 [facility] Comment on above: Performed By: #### L 500.2500, L100.0100, L503.7505 ####[facility] [address] [place], [address] MCHC (RBC) [Mass/Vol] 31.9 g/dL Low 32-36 [facility] Comment on above: Performed By: #### L 500.2500, L100.0100, L503.7505 ####[facility] [address] [place], [address] MCV (RBC) [Entitic vol] 87.4 fL Normal 80-94 [facility] Comment on above: Performed By: #### L 500.2500, L100.0100, L503.7505 ####[facility] [address] [place], [address] Monocytes/100 WBC (Bld) 4.9 % Normal 0-10 [facility] Comment on above: Performed By: #### L 500.2500, L100.0100, L503.7505 ####[facility] [address] [place], [address] Neutrophils/100 WBC (Bld) 89.0 % High 47-70 [facility] Comment on above: Performed By: #### L 500.2500, L100.0100, L503.7505 ####[facility] [address] [place], [address] Nucleated RBC (Bld) [#/Vol] 0 10*3/uL Normal 0-5 [facility] Comment on above: Performed By: #### L 500.2500, L100.0100, L503.7505 ####[facility] [address] [place], [address] Platelet mean volume (Bld) [Entitic vol] 10.8 fL Normal 6.2-12.0 [facility] Comment on above: Performed By: #### L 500.2500, L100.0100, L503.7505 ####[facility] [address] [place], [address] Platelets (Bld) [#/Vol] 138 10*3/uL Low 150-450 [facility] Comment on above: Performed By: #### L 500.2500, L100.0100, L503.7505 ####[facility] [address] [place], [address] RBC (Bld) [#/Vol] 4.70 10*6/uL Normal 4.6-6.2 [facility] Comment on above: Performed By: #### L 500.2500, L100.0100, L503.7505 ####[facility] [address] [place], [address] RDW SD 56.6 fl High 35.1-43.9 [facility] Comment on above: Performed By: #### L 500.2500, L100.0100, L503.7505 ####[facility] [address] [place], [address] WBC (Bld) [#/Vol] 8.8 10*3/uL Normal 4.4-11.0 [facility] Comment on above: Performed By: #### L 500.7508, L100.0100, L503.7505 ####[facility] [address] [place], [address] CNPNon 10-27-2024 CNPN Normal [facility] Carbon dioxide, total [Moles /volume] in Central venous bloodOrdered By: Celina Wood on 10-27-2024 CO2 [Moles/Vol] 26.7 mmol/L 21.0-32.0 [facility] Chest PA and Lateralon 10-27 Chest PA and Lateral Normal [facility] Chloride assayOrdered By: Marciano Wood on 10-27-2024 Chloride [Moles/Vol] 102 mmol/L 98-108 [facility] Emergency Department Summary on 10-27-2024 Emergency Department Summary Normal [facility] Eosinophil percentageOrdered By: Celina Wood on 10-27-2024 Eosinophils/100 WBC (Bld) 0.6 % 0-5 [facility] Erythrocyte distribution wid th ratioOrdered By: Celina Wood on 10-27-2024 Erythrocyte distribution width (RBC) [Ratio] 17.8 % High 11.6-14.6 [facility] Erythrocyte distribution wid th standard deviationOrdered By: Celina Wood on 10-27-2024 Erythrocyte distribution width (RBC) [Ratio] 56.6 fl High 35.1-43.9 [facility] Glomerular filtration rate ( GFR) estimation/1.73 sq m using serum, plasma, or whole bOrdered By: Celina Wood on 10-27-2024 GFR/1.73 sq M.predicted among non-blacks MDRD (S/P/Bld) [Vol rate/Area] 57 mL/min/{1.73_m2} Low >60 [facility] Comment on above: mL/min/1.73m2 CKD-EP I Creatinine Equation (2020) Hematocrit Auto (Bld) [Volum e fraction]Ordered By: Celina Wood on 10-27-2024 Hematocrit (Bld) [Volume fraction] 41.1 % 40-54 [facility] Hemoglobin measurementOrdere d By: Celina Wood on 10-27-2024 Hemoglobin (Bld) [Mass/Vol] 13.1 g/dL 13.0-16.5 [facility] Immature granulocytes/100 WB C Auto (Bld)Ordered By: Celina Wood on 10-27-2024 Immature granulocytes/100 WBC (Bld) 0.500 % 0.0-0.9 [facility] Comment on above: IG% - Immature Granu locytes (promyelocytes, myelocytes and metamyelocytes) > 1% indicates that a LEFT SHIFT is Present. L499.0042on 10-27-2024 Trop T High Sen 29 ng/L High <=22 [facility] Comment on above: Performed By: #### L 499.0042 ####[facility] [address] [place], [address] L499.0043on 10-27-2024 Trop T High Sen Normal <=22 [facility] Comment on above: Result Comment: Canc elled via OM: Order cancelled - Patient discharged Performed By: #### L 499.0043 ####[facility] [address] [place], [address] L501.4021on 10-27-2024 Trop T High Sen 30 ng/L High <=22 [facility] Comment on above: Performed By: #### L 501.4021 ####[facility] [address] [place], [address] L503.7505on 10-27-2024 Natriuretic peptide B (Bld) [Mass/Vol] 1061 pg/mL Normal <=1800 [facility] Comment on above: Result Comment: Hear t Failure Unlikely: < 300 pg/mLHeart Failure Likely< 50 Years: > 450 pg/mL50-75 Years: > 900 pg/mL>75 Years: > 1800 pg/mL Performed By: #### L 500.2500, L100.0100, L503.7505 ####[facility] [address] [place], [address] MCV (mean corpuscular volume ) determinationOrdered By: Celina Wood on 10-27-2024 MCV (RBC) [Entitic vol] 87.4 fL 80-94 [facility] Mean corpuscular hemoglobin (MCH) determinationOrdered By: Celina Wood on 10-27-2024 MCH (RBC) [Entitic mass] 27.9 pg 27.0-32.0 [facility] Mean corpuscular hemoglobin concentration (MCHC) determinationOrdered By: Celina Wood on 10-27-2024 MCHC (RBC) [Mass/Vol] 31.9 g/dL Low 32-36 [facility] Mean platelet volume determi nationOrdered By: Celina Wood on 10-27-2024 Platelet mean volume (Bld) [Entitic vol] 10.8 fL 6.2-12.0 [facility] Monocyte percentageOrdered B y: Celina Wood on 10-27-2024 Monocytes/100 WBC (Bld) 4.9 % 0-10 [facility] Natriuretic peptide.B prohor ara N-Terminal [Mass/volume] in Serum or PlasmaOrdered By: Celina Wood on 10-27-2024 Natriuretic peptide.B prohormone N-Terminal [Mass/Vol] 1061 pg/mL <1800 [facility] Comment on above: Heart Failure Unlike ly: < 300 pg/mLHeart Failure Likely< 50 Years: > 450 pg/mL50-75 Years: > 900 pg/mL>75 Years: > 1800 pg/mL Neutrophil percentageOrdered By: Celina Wood on 10-27-2024 Neutrophils/100 WBC (Bld) 89.0 % High 47-70 [facility] Nucleated red blood cell per centageOrdered By: Celina Wood on 10-27-2024 Nucleated RBC/100 WBC (Bld) [Ratio] 0 % 0-5 [facility] Platelet countOrdered By: Marciano Wood on 10-27-2024 Platelets (Bld) [#/Vol] 138 10*3/uL Low 150-450 [facility] Potassium measurement (mass/ volume)Ordered By: Celina Wood on 10-27-2024 Potassium (Unsp spec) [Mass/Vol] 4.3 mmol/L 3.3-5.1 [facility] RBC Auto (Bld) [#/Vol]Ordere d By: Celina Wood on 10-27-2024 RBC (Bld) [#/Vol] 4.70 10*6/uL 4.6-6.2 [facility] Serum creatinine measurement (mass/volume)Ordered By: Celina Wood on 10-27-2024 Creatinine [Mass/Vol] 1.24 mg/dL High 0.70-1.20 [facility] Serum glucose measurement (m ass/volume)Ordered By: Celina Wood on 10-27-2024 Glucose [Mass/Vol] 142 mg/dL High 70-99 [facility] Serum or plasma calcium tristan urement (mass/volume)Ordered By: Celina Wodo on 10-27-2024 Calcium [Mass/Vol] 8.9 mg/dL 7.6-11.0 [facility] Serum or plasma urea nitroge n measurement (mass/volume)Ordered By: Celina Wood on 10-27-2024 Urea nitrogen [Mass/Vol] 26 mg/dL High 4-19 [facility] Sodium levelOrdered By: Florencio Wood on 10-27-2024 Sodium [Moles/Vol] 141 mmol/L 133-145 [facility] Troponin T.cardiac [Mass/vol ume] in Serum or Plasma by High sensitivity methodOrdered By: Celina Wood on 10-27-2024 Troponin T.cardiac High sensitivity method [Mass/Vol] 29 ng/L High <22 [facility] Troponin T.cardiac High sensitivity method [Mass/Vol] 30 ng/L High <22 [facility] White blood cell (WBC) count Ordered By: Celina Wood on 10-27-2024 WBC (Bld) [#/Vol] 8.8 10*3/uL 4.4-11.0 [facility] CNOVon 10-26-2024 CNOV Normal [facility] CNOVon 10-25-2024 CNOV Normal [facility] XR CHEST 2V FRONTAL/LATon XR CHEST 2V FRONTAL/LAT Normal C [facility] XR Chest PA and Lateralon IMPRESSION: No acute radiographic abnormality in the lungs. Prominent cardiac silhouette. Sterile Process Coordinator: JAVY Transcribe Date/Time: Oct 25 2024 2:52P Dictated by : JERALD MOREIRA MD This examination was interpreted and the report reviewed and electronically signed by: JERALD MOREIRA MD on Oct 25 2024 2:54PM [facility] DIVISION OF RADIOLOGY * * *Final Report* * * DATE OF EXAM: Oct 25 2024 2:51PM WOX [id number] - XR CHEST 2V FRONTAL/LAT / PROCEDURE REASON: multiple diagnoses * * * * Physician Interpretation * * * * EXAMINATION: CHEST RADIOGRAPH (2 VIEW FRONTAL & LATERAL) CLINICAL HISTORY: SOB (shortness of breath) HDZ (dyspnea on exertion) MQ: XC2_6 EXAM DATE/TIME: 10/25/2024 2:51 PM COMPARISON: No relevant prior studies available. 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 Lungs and pleura: No consolidation. No lung mass. No pleural effusion. No pneumothorax. Cardiomediastinal silhouette: There is prominence of the cardiac silhouette, with tortuosity or dilation of the thoracic aorta. Bones and soft tissues: There are degenerative changes in the spine. DIVISION OF RADIOLOGY Provider, [facility] - 10/25/2024 * * *Final Report* * * DATE OF EXAM: Oct 25 2024 2:51PM WOX [id number] - XR CHEST 2V FRONTAL/LAT / PROCEDURE REASON: multiple diagnoses * * * * Physician Interpretation * * * * EXAMINATION: CHEST RADIOGRAPH (2 VIEW FRONTAL & LATERAL) CLINICAL HISTORY: SOB (shortness of breath) HDZ (dyspnea on exertion) MQ: XC2_6 EXAM DATE/TIME: 10/25/2024 2:51 PM COMPARISON: No relevant prior studies available. 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 Lungs and pleura: No consolidation. No lung mass. No pleural effusion. No pneumothorax. Cardiomediastinal silhouette: There is prominence of the cardiac silhouette, with tortuosity or dilation of the thoracic aorta. Bones and soft tissues: There are degenerative changes in the spine. IMPRESSION IMPRESSION: No acute radiographic abnormality in the lungs. Prominent cardiac silhouette. Sterile Process Coordinator: JAVY Transcribe Date/Time: Oct 25 2024 2:52P Dictated by : JERALD MOREIRA MD This examination was interpreted and the report reviewed and electronically signed by: JERALD MOREIRA MD on Oct 25 2024 2:54PM [facility] Radiology Study observation (narrative) [facility] XR Chest PA and LateralOrder ed By: Ccf Provider on 10-25-2024 [facility] CNOVon 10-08-2024 CNOV Normal [facility] Basic metabolic 2000 panelon 09-17-2024 Anion gap [Moles/Vol] 15 mmol/L Normal 8-15 [facility] Comment on above: Order Comment: Speci men Type: BLOOD SPECIMENOrdering Facility: [facility] Address: [address] [place] [address] Performed By: #### 2 4321-2 ####[facility] LABCLIA [id number] [place] [id number] [place] Calcium [Mass/Vol] 9.6 mg/dL Normal 8.5-10.2 [facility] Comment on above: Order Comment: Speci men Type: BLOOD SPECIMENOrdering Facility: [facility] Address: [address] [place] [address] Performed By: #### 2 4321-2 ####[facility] LABCLIA [id number] [address] [address] [place] Chloride [Moles/Vol] 104 mmol/L Normal 98-107 [facility] Comment on above: Order Comment: Speci men Type: BLOOD SPECIMENOrdering Facility: [facility] Address: [address] [place] [address] Performed By: #### 2 4321-2 ####[facility] LABCLIA [id number] [place] [id number] [place] CO2 [Moles/Vol] 26 mmol/L Normal 22-30 [facility] Comment on above: Order Comment: Speci men Type: BLOOD SPECIMENOrdering Facility: [facility] Address: [address] [place] [address] Performed By: #### 2 4321-2 ####[facility] LABCLIA [id number] [facility] [place] [id number] [place] Creatinine [Mass/Vol] 1.21 mg/dL Normal 0.73-1.22 [facility] Comment on above: Order Comment: Speci men Type: BLOOD SPECIMENOrdering Facility: [facility] Address: [address] [place] [address] Performed By: #### 2 4321-2 ####[facility] LABCLIA [id number] [place] [address] [place] Creatinine and Glomerular filtration rate.predicted panel (S/P/Bld) 59 mL/min/1.73m??? Low >=60 [facility] Comment on above: Order Comment: Speci men Type: BLOOD SPECIMENOrdering Facility: [facility] Address: [address] [place] [address] Result Comment: Kateryna mated Glomerular Filtration Rate (eGFR) is calculated using the 2020 CKD-EPI creatinine equation. This equation utilizes serum creatinine, sex, and age as parameters. The creatinine assay has traceable calibration to isotope dilution-mass spectrometry. Refer to KDIGO guidelines for clinical interpretation. In patients with unstable renal function, e.g. those with acute kidney injury, the eGFR may not accurately reflect actual GFR. Performed By: #### 2 4321-2 ####[facility] LABCLIA [id number] [place] [id number] [place] Glucose [Mass/Vol] 97 mg/dL Normal 74-99 [facility] Comment on above: Order Comment: Speci men Type: BLOOD SPECIMENOrdering Facility: [facility] Address: [address] [place] [address] Result Comment: The British Diabetes Association (ADA) provides guidance for cutoff values for fasting glucose and random glucose. The ADA defines fasting as no caloric intake for at least 8 hours. Fasting plasma glucose results between 100 to 125 mg/dL indicate increased risk for diabetes (prediabetes).Fasting plasma glucose results greater than or equal to 126 mg/dL meet the criteria for diagnosis of diabetes. In the absence of unequivocal hyperglycemia, results should be confirmed by repeat testing. In a patient with classic symptoms of hyperglycemia or hyperglycemic crisis, random plasma glucose results greater than or equal to 200 mg/dL meet the criteria for diagnosis of diabetes.Reference: Standards of Medical Care in Diabetes 2016, British Diabetes Association. Diabetes Care. 2016.39(Suppl 1). Performed By: #### 2 4321-2 ####[facility] LABCLIA [id number] [place] [address] [place] Potassium [Moles/Vol] 4.6 mmol/L Normal 3.7-5.1 [facility] Comment on above: Order Comment: Speci men Type: BLOOD SPECIMENOrdering Facility: [facility] Address: [address] [place] [address] Performed By: #### 2 4321-2 ####[facility] LABIA [id number] [place] [address] [place] Sodium [Moles/Vol] 145 mmol/L High 136-144 [facility] Comment on above: Order Comment: Speci men Type: BLOOD SPECIMENOrdering Facility: [facility] Address: [address] [place] [address] Performed By: #### 2 4321-2 ####[facility] LABCLIA [id number] [place] [id number] [place] Urea nitrogen [Mass/Vol] 30 mg/dL High 9-24 [facility] Comment on above: Order Comment: Speci men Type: BLOOD SPECIMENOrdering Facility: [facility] Address: [address] [place] [address] Performed By: #### 2 4321-2 ####[facility] LABCLIA [id number] [place] [id number] [place] CNPNon 09-16-2024 CNPN Normal [facility] CNOVon 09-14-2024 CNOV Normal [facility] CNPTOUTREACHon 09-14-2024 CNPTOUTREACH Normal [facility] Comprehensive metabolic 2000 panelon 09-14-2024 Albumin [Mass/Vol] 4.0 g/dL Normal 3.9-4.9 [facility] Comment on above: Order Comment: Speci men Type: BLOOD SPECIMENOrdering Facility: [facility] Address: [address] [place] [address] Performed By: #### 2 4323-8, LIPNF, 2132-02, 3015-3 ####[facility] LABCLIA [id number] [place] [address] [place] ALP [Catalytic activity/Vol] 88 U/L Normal 38-113 [facility] Comment on above: Order Comment: Speci men Type: BLOOD SPECIMENOrdering Facility: [facility] Address: [address] [place] [address] Performed By: #### 2 4323-8, LIPNF, 2132-02, 3015-3 ####[facility] LABCLIA [id number] [place] [address] [place] ALT [Catalytic activity/Vol] 16 U/L Normal 10-54 [facility] Comment on above: Order Comment: Speci men Type: BLOOD SPECIMENOrdering Facility: [facility] Address: [address] [place] [address] Performed By: #### 2 4323-8, LIPNF, 2132-02, 3015-3 ####[facility] LABCLIA [id number] [place] [id number] [place] Anion gap [Moles/Vol] 11 mmol/L Normal 8-15 [facility] Comment on above: Order Comment: Speci men Type: BLOOD SPECIMENOrdering Facility: [facility] Address: [address] [place] [address] Performed By: #### 2 4323-8, LIPNF, 2132-02, 3015-3 ####[facility] LABCLIA [id number] [place] [address] [place] AST [Catalytic activity/Vol] 17 U/L Normal 14-40 [facility] Comment on above: Order Comment: Speci men Type: BLOOD SPECIMENOrdering Facility: [facility] Address: [address] [place] [address] Performed By: #### 2 4323-8, LIPNF, 2132-02, 3 ####[facility] LABIA [id number] [place] [address] [place] Bilirubin [Mass/Vol] 0.4 mg/dL Normal 0.2-1.3 [facility] Comment on above: Order Comment: Speci men Type: BLOOD SPECIMENOrdering Facility: [facility] Address: [address] [place] [address] Performed By: #### 2 4323-8, LIPNF, 2132-02, 3015-3 ####[facility] LABCLIA [id number] [place] [address] [place] Calcium [Mass/Vol] 9.9 mg/dL Normal 8.5-10.2 [facility] Comment on above: Order Comment: Speci men Type: BLOOD SPECIMENOrdering Facility: [facility] Address: [address] [place] [address] Performed By: #### 2 4323-8, LIPNF, 2132-02, 3015-3 ####[facility] LABIA [id number] [place] [address] [place] Chloride [Moles/Vol] 107 mmol/L Normal 98-107 [facility] Comment on above: Order Comment: Speci men Type: BLOOD SPECIMENOrdering Facility: [facility] Address: [address] [place] [address] Performed By: #### 2 4323-8, LIPNF, 2132-02, 3 ####[facility] LABIA [id number] [place] [id number] [place] CO2 [Moles/Vol] 28 mmol/L Normal 22-30 [facility] Comment on above: Order Comment: Speci men Type: BLOOD SPECIMENOrdering Facility: [facility] Address: [address] [place] [address] Performed By: #### 2 4323-8, LIPNF, 2132-02, 3 ####[facility] [id number] [place] [address] [place] Creatinine [Mass/Vol] 1.04 mg/dL Normal 0.73-1.22 [facility] Comment on above: Order Comment: Speci men Type: BLOOD SPECIMENOrdering Facility: [facility] Address: [address] [place] [address] Performed By: #### 2 4323-8, LIPNF, 2132-02, 3 ####[facility] [id number] [place] [address] [place] Creatinine and Glomerular filtration rate.predicted panel (S/P/Bld) 71 mL/min/1.73m??? Normal >=60 [facility] Comment on above: Order Comment: Speci men Type: BLOOD SPECIMENOrdering Facility: [facility] Address: [address] [place] [address] Result Comment: Kateryna mated Glomerular Filtration Rate (eGFR) is calculated using the 2020 CKD-EPI creatinine equation. This equation utilizes serum creatinine, sex, and age as parameters. The creatinine assay has traceable calibration to isotope dilution-mass spectrometry. Refer to KDIGO guidelines for clinical interpretation. In patients with unstable renal function, e.g. those with acute kidney injury, the eGFR may not accurately reflect actual GFR. Performed By: #### 2 4323-8, LIPNF, 2132-02, 3016-3 ####[facility] LABCLIA [id number] [address] [address] [place] Glucose [Mass/Vol] 106 mg/dL High 74-99 [facility] Comment on above: Order Comment: Speci men Type: BLOOD SPECIMENOrdering Facility: [facility] Address: [address] [place] [address] Result Comment: The British Diabetes Association (ADA) provides guidance for cutoff values for fasting glucose and random glucose. The ADA defines fasting as no caloric intake for at least 8 hours. Fasting plasma glucose results between 100 to 125 mg/dL indicate increased risk for diabetes (prediabetes).Fasting plasma glucose results greater than or equal to 126 mg/dL meet the criteria for diagnosis of diabetes. In the absence of unequivocal hyperglycemia, results should be confirmed by repeat testing. In a patient with classic symptoms of hyperglycemia or hyperglycemic crisis, random plasma glucose results greater than or equal to 200 mg/dL meet the criteria for diagnosis of diabetes.Reference: Standards of Medical Care in Diabetes 2016, British Diabetes Association. Diabetes Care. 2016.39(Suppl 1). Performed By: #### 2 4323-8, LIPNF, 2131-9, 6-3 ####[facility] LABIA [id number] [place] [id number] [place] Potassium [Moles/Vol] 4.8 mmol/L Normal 3.7-5.1 [facility] Comment on above: Order Comment: Speci men Type: BLOOD SPECIMENOrdering Facility: [facility] Address: [address] [place] [address] Performed By: #### 2 4323-8, LIPNF, 2131-9, 6-3 ####[facility] LABIA [id number] [place] [id number] [place] Protein [Mass/Vol] 6.3 g/dL Normal 6.3-8.0 [facility] Comment on above: Order Comment: Speci men Type: BLOOD SPECIMENOrdering Facility: [facility] Address: [address] [place] [address] Performed By: #### 2 4323-8, LIPNF, 2132-02, 6-3 ####[facility] LABIA [id number] [address] [address] [place] Sodium [Moles/Vol] 146 mmol/L High 136-144 [facility] Comment on above: Order Comment: Speci men Type: BLOOD SPECIMENOrdering Facility: [facility] Address: [address] [place] [address] Performed By: #### 2 4323-8, LIPNF, 2132-02, 6-3 ####[facility] [id number] [place] [address] [place] Urea nitrogen [Mass/Vol] 25 mg/dL High 9-24 [facility] Comment on above: Order Comment: Speci men Type: BLOOD SPECIMENOrdering Facility: [facility] Address: [address] [place] [address] Performed By: #### 2 4323-8, LIPNF, 2132-02, 6-3 ####[facility] [id number] [place] [address] [place] HbA1c (Bld)on 09-14-2024 Average glucose Estimated from glycated hemoglobin (Bld) [Mass/Vol] 123 mg/dL Normal [facility] Comment on above: Order Comment: Speci men Type: BLOOD SPECIMENOrdering Facility: [facility] Address: [address] [place] [address] Result Comment: eAG: (Estimated average glucose) is a calculated value from HgbA1c and is brand representative of the average blood glucose level in the last 2-3 month period. Performed By: #### 5 5454-3 ####[facility] [id number] [address] [address] [place] HbA1c (Bld) [Mass fraction] 5.9 % High 4.3-5.6 [facility] Comment on above: Order Comment: Speci men Type: BLOOD SPECIMENOrdering Facility: [facility] Address: [address] [place] [address] Result Comment: Amer ican Diabetes Association guidelines indicate that patients with HgbA1c in the range 5.7-6.4% are at increased risk for development of diabetes, and intervention by lifestyle modification may be beneficial. HgbA1c greater or equal to 6.5% is considered diagnostic of diabetes. Performed By: #### 5 5454-3 ####[facility] LABCLIA [id number] [address] [address] [place] LIPID PANEL, NONFASTINGon Cholesterol [Mass/Vol] 148 mg/dL Normal <200 [facility] Comment on above: Order Comment: Misti [facility] Type: BLOOD SPECIMENOrdering Facility: [facility] Address: [address] [place] [address] Result Comment: <200 mg/dL, Desirable 200-239 mg/dL, Borderline high>239 mg/dL, High Performed By: #### 2 4323-8, LIPNF, 2132-02, 6-3 ####[facility] LABCLIA [id number] [address] [address] [place] HDL CHOLESTEROL, NF 41 mg/dL Normal >39 [facility] Comment on above: Order Comment: Giorgiosalma vgea Type: BLOOD SPECIMENOrdering Facility: [facility] Address: [address] [place] [address] Result Comment: 40-5 9 mg/dL, Acceptable>59 mg/dL, High: Negative risk factor for coronary heart disease<40 mg/dL, Low: Positive risk factor for coronary heart disease Performed By: #### 2 4323-8, LIPNF, 2132-02, 6-3 ####[facility] LABCLIA [id number] [address] [address] [place] LDL CHOLESTEROL, NF 68 mg/dL Normal <100 [facility] Comment on above: Order Comment: Speci men Type: BLOOD SPECIMENOrdering Facility: [facility] Address: [address] [place] [address] Result Comment: <100 mg/dL, Optimal 100-129 mg/dL, Near optimal/above optimal 130-159 mg/dL, Borderline high 160-189 mg/dL, High>189 mg/dL, Very highSecondary prevention optimal LDL Cholesterol levels are recommended to be < 70 mg/dL Performed By: #### 2 4323-8, LIPNF, 2132-02, 3015-3 ####[facility] LABCLIA [id number] [place] [address] [place] LDL/HDL RATIO, NF 1.66 mg/dL Normal <2.54 [facility] Comment on above: Order Comment: Specsalma men Type: BLOOD SPECIMENOrdering Facility: [facility] Address: [address] [place] [address] Result Comment: Refe rence:1. National Cholesterol Education Program ATP III Guideline At-A-Glance Quick Desk Reference: National Heart, Lung, and Blood Menan. National Institutes of Health. 2001: NIH Publication No. 01-3305.2. An International Atherosclerosis Society position paper: global recommendations for the management of dyslipidemia: executive summary, Atherosclerosis. 2014: 232(2):410-413. Performed By: #### 2 4323-8, LIPNF, 2132-02, 3 ####[facility] LABIA [id number] [place] [address] [place] NON HDL CHOL, NF 107 mg/dL Normal <130 [facility] Comment on above: Order Comment: Misti men Type: BLOOD SPECIMENOrdering Facility: [facility] Address: [address] [place] [address] Result Comment: <130 mg/dL, Optimal 130-159 mg/dL, Near optimal/above optimal 160-189 mg/dL, Borderline high 190-219 mg/dL, High>219 mg/dL, Very highSecondary prevention optimal non HDL Cholesterol levels are recommended to be <100 mg/dL Performed By: #### 2 4323-8, LIPNF, 2132-02, 3016-3 ####[facility] LABCLIA [id number] [address] [place] [address] [place] T CHOL/HDL RATIO NF 3.61 mg/dL Normal <5.10 [facility] Comment on above: Order Comment: Speci men Type: BLOOD SPECIMENOrdering Facility: [facility] Address: [address] [place] [address] Performed By: #### 2 4323-8, LIPNF, 2132-02, 6-3 ####[facility] LABCLIA [id number] [address] [address] [place] TRIGLYCERIDES, NF 194 mg/dL High <150 [facility] Comment on above: Order Comment: Speci men Type: BLOOD SPECIMENOrdering Facility: [facility] Address: [address] [place] [address] Result Comment: <150 mg/dL, Normal 150-199 mg/dL, Borderline high 200-499 mg/dL, High>499 mg/dL, Very high Performed By: #### 2 4323-8, LIPNF, 2132-02, 6-3 ####[facility] LABIA [id number] [place] [id number] [place] VLDL CHOLESTEROL, NF 39 mg/dL High <30 [facility] Comment on above: Order Comment: Speci men Type: BLOOD SPECIMENOrdering Facility: [facility] Address: [address] [place] [address] Performed By: #### 2 4323-8, LIPNF, 2132-02, 6-3 ####[facility] LABCLIA [id number] [address] [address] [place] TSH SerPl-aCncon 09-14-2024 TSH Qn 9.560 m[IU]/L High 0.270-4.200 [facility] Comment on above: Order Comment: Speci men Type: BLOOD SPECIMENOrdering Facility: [facility] Address: [address] [place] [address] Performed By: #### 2 4323-8, LIPNF, 9, 6-3 ####[facility] LABCLIA [id number] [place] [id number] [place] Vit B12 SerPl-mCncon 25-2 025 Cobalamin (Vitamin B12) [Mass/Vol] 822 pg/mL Normal 232-1245 [facility] Comment on above: Order Comment: Speci men Type: BLOOD SPECIMENOrdering Facility: [facility] Address: [address] [place] [address] Performed By: #### 2 4323-8, LIPNF, 2132-02, 3 ####[facility] LABCLIA [id number] [place] [id number] [place] CNPNon 09-09-2024 CNPN Normal [facility] CNPNon 09-08-2024 CNPN Normal [facility] CNPNon 09-07-2024 CNPN Normal [facility] CNPNon 09-06-2024 CNPN Normal [facility] CNPTOUTREACHon 09-06-2024 CNPTOUTREACH Normal [facility] Absolute lymphocyte countOrd ered By: Simeon Gifford on 08-31-2024 Lymphocytes Auto (Unsp spec) [#/Vol] 1.32 10*3/uL 0.83-4.51 [facility] Absolute neutrophil countOrd ered By: Simeon Gifford on 08-31-2024 Neutrophils (Bld) [#/Vol] 5.7 10*3/uL 2.0-7.7 [facility] Anion gap in Serum or Plasma Ordered By: Simeon Gifford on 08-31-2024 Anion gap [Moles/Vol] 11 mmol/L 5-15 [facility] Automated lymphocyte count a s percentage of total leukocytesOrdered By: Simeon Gifford on 08-31-2024 Lymphocytes/100 WBC Auto (Unsp spec) 17.1 % Low 19-41 [facility] BUN/creatinine ratioOrdered By: Simeon Gifford on 08-31-2024 Urea nitrogen/Creatinine [Mass ratio] 20.8 mg/mg High 10-20 [facility] Basic Metabolic Profile (BMP )on 08-31-2024 BUN/CRE 20.8 RATIO High 10-20 [facility] Comment on above: Performed By: #### L 500.2500, L100.0100 ####[facility] [address] [place], [address] Calcium [Mass/Vol] 9.1 mg/dL Normal 7.6-11.0 [facility] Comment on above: Performed By: #### L 500.2500, L100.0100 ####[facility] [address] [place], [address] Chloride [Moles/Vol] 101 mmol/L Normal 98-108 [facility] Comment on above: Performed By: #### L 500.2500, L100.0100 ####[facility] [address] [place], [address] CO2 [Moles/Vol] 28.4 mmol/L Normal 21.0-32.0 [facility] Comment on above: Performed By: #### L 500.2500, L100.0100 ####[facility] [address] [place], [address] Creatinine [Mass/Vol] 1.02 mg/dL Normal 0.70-1.20 [facility] Comment on above: Performed By: #### L 500.2500, L100.0100 ####[facility] [address] [place], [address] ECRCL 72.83 ml/min Normal 50-250 [facility] Comment on above: Performed By: #### L 500.2500, L100.0100 ####[facility] [address] [place], [address] GAP 11 Normal 5-15 [facility] Comment on above: Performed By: #### L 500.2500, L100.0100 ####[facility] [address] [place], [address] GFR/1.73 sq M.predicted among non-blacks MDRD (S/P/Bld) [Vol rate/Area] 72 mL/min/{1.73_m2} Normal >60 [facility] Comment on above: Result Comment: mL/m in/1.73m2 CKD-EPI Creatinine Equation (2020) Performed By: #### L 500.2500, L100.0100 ####[facility] [address] [place], [address] Glucose [Mass/Vol] 159 mg/dL High 70-99 [facility] Comment on above: Performed By: #### L 500.2500, L100.0100 ####[facility] [address] [place], [address] Potassium [Moles/Vol] 3.8 mmol/L Normal 3.3-5.1 [facility] Comment on above: Performed By: #### L 500.2500, L100.0100 ####[facility] [address] [place], [address] Sodium [Moles/Vol] 140 mmol/L Normal 133-145 [facility] Comment on above: Performed By: #### L 500.2500, L100.0100 ####[facility] [address] [place], [address] Urea nitrogen [Mass/Vol] 21 mg/dL High 4-19 [facility] Comment on above: Performed By: #### L 500.2500, L100.0100 ####[facility] [address] [place], [address] Basophil percentageOrdered B y: Simeon Gifford on 08-31-2024 Basophils/100 WBC (Bld) 1.2 % High 0-1 [facility] CBC W/Diff, Automatedon 08-21 Absolute Lymph 1.32 X10 3/uL Normal 0.83-4.51 [facility] Comment on above: Performed By: #### L 500.2500, L100.0100 ####[facility] [address] [place], [address] Absolute Neut 5.7 X10 3/uL Normal 2.0-7.7 [facility] Comment on above: Performed By: #### L 500.2500, L100.0100 ####[facility] [address] [place], [address] Basophils/100 WBC (Bld) 1.2 % High 0-1 [facility] Comment on above: Performed By: #### L 500.2500, L100.0100 ####[facility] [address] [place], [address] Eosinophils/100 WBC (Bld) 4.0 % Normal 0-5 [facility] Comment on above: Performed By: #### L 500.2500, L100.0100 ####[facility] [address] [place], [address] Erythrocyte distribution width (RBC) [Ratio] 18.3 % High 11.6-14.6 [facility] Comment on above: Performed By: #### L 500.2500, L100.0100 ####[facility] [address] [place], [address] Hematocrit (Bld) [Volume fraction] 43.9 % Normal 40-54 [facility] Comment on above: Performed By: #### L 500.2500, L100.0100 ####[facility] [address] [place], [address] Hemoglobin (Bld) [Mass/Vol] 14.1 g/dL Normal 13.0-16.5 [facility] Comment on above: Performed By: #### L 500.2500, L100.0100 ####[facility] [address] [place], [address] IG% 0.300 Normal 0.0-0.9 [facility] Comment on above: Result Comment: IG% - Immature Granulocytes (promyelocytes, myelocytes andmetamyelocytes) > 1% indicates that a LEFT SHIFT is Present. Performed By: #### L 500.2500, L100.0100 ####[facility] [address] [place], [address] Lymphocytes/100 WBC (Bld) 17.1 % Low 19-41 [facility] Comment on above: Performed By: #### L 500.2500, L100.0100 ####[facility] [address] [place], [address] MCH (RBC) [Entitic mass] 28.0 pg Normal 27.0-32.0 [facility] Comment on above: Performed By: #### L 500.2500, L100.0100 ####[facility] [address] [place], [address] MCHC (RBC) [Mass/Vol] 32.1 g/dL Normal 32-36 [facility] Comment on above: Performed By: #### L 500.2500, L100.0100 ####[facility] [address] [place], [address] MCV (RBC) [Entitic vol] 87.3 fL Normal 80-94 [facility] Comment on above: Performed By: #### L 500.2500, L100.0100 ####[facility] [address] [place], [address] Monocytes/100 WBC (Bld) 4.0 % Normal 0-10 [facility] Comment on above: Performed By: #### L 500.2500, L100.0100 ####[facility] [address] [place], [address] Neutrophils/100 WBC (Bld) 73.4 % High 47-70 [facility] Comment on above: Performed By: #### L 500.2500, L100.0100 ####[facility] [address] [place], [address] Nucleated RBC (Bld) [#/Vol] 0 10*3/uL Normal 0-5 [facility] Comment on above: Performed By: #### L 500.2500, L100.0100 ####[facility] [address] [place], [address] Platelet mean volume (Bld) [Entitic vol] 10.6 fL Normal 6.2-12.0 [facility] Comment on above: Performed By: #### L 500.2500, L100.0100 ####[facility] [address] [place], [address] Platelets (Bld) [#/Vol] 178 10*3/uL Normal 150-450 [facility] Comment on above: Performed By: #### L 500.2500, L100.0100 ####[facility] [address] [place], [address] RBC (Bld) [#/Vol] 5.03 10*6/uL Normal 4.6-6.2 [facility] Comment on above: Performed By: #### L 500.2500, L100.0100 ####[facility] [address] [place], [address] RDW SD 57.2 fl High 35.1-43.9 [facility] Comment on above: Performed By: #### L 500.2500, L100.0100 ####[facility] [address] [place], [address] WBC (Bld) [#/Vol] 7.7 10*3/uL Normal 4.4-11.0 [facility] Comment on above: Performed By: #### L 500.2500, L100.0100 ####[facility] [address] [place], [address] Carbon dioxide, total [Moles /volume] in Central venous bloodOrdered By: Simeon Gifford on 08-31-2024 CO2 [Moles/Vol] 28.4 mmol/L 21.0-32.0 [facility] Chloride assayOrdered By: Willy Gifford on 08-31-2024 Chloride [Moles/Vol] 101 mmol/L 98-108 [facility] Eosinophil percentageOrdered By: Simeon Gifford 08-31-2024 Eosinophils/100 WBC (Bld) 4.0 % 0-5 [facility] Erythrocyte distribution wid th ratioOrdered By: Simeon Gifford 08-31-2024 Erythrocyte distribution width (RBC) [Ratio] 18.3 % High 11.6-14.6 [facility] Erythrocyte distribution wid th standard deviationOrdered By: Simeon Gifford 08-31-2024 Erythrocyte distribution width (RBC) [Entitic vol] 57.2 fL High 35.1-43.9 [facility] Erythrocyte distribution width (RBC) [Ratio] 57.2 fl High 35.1-43.9 [facility] Estimation of creatinine michael aranceOrdered By: Simeon Gifford 08-31-2024 Estimated Creatinine Clearance Calc 72.83 ml/min 50-250 [facility] GFR/1.73 sq M.predicted garett g non-blacks MDRD (S/P/Bld) [Vol rate/Area]Ordered By: Simeon Gifford 08-31-2024 Estimated GFR (MDRD) Non-Af Amer 72 >60 [facility] Comment on above: mL/min/1.73m2 CKD-EP I Creatinine Equation (2020) Glomerular filtration rate ( GFR) estimation/1.73 sq m using serum, plasma, or whole bOrdered By: Simeon Gifford 08-31-2024 GFR/1.73 sq M.predicted among non-blacks MDRD (S/P/Bld) [Vol rate/Area] 72 mL/min/{1.73_m2} >60 [facility] Comment on above: mL/min/1.73m2 CKD-EP I Creatinine Equation (2020) Hematocrit Auto (Bld) [Volum e fraction]Ordered By: Simeon Gifford on 08-31-2024 Hematocrit (Bld) [Volume fraction] 43.9 % 40-54 [facility] Hemoglobin measurementOrdere d By: Simeon Gifford on 08-31-2024 Hemoglobin (Bld) [Mass/Vol] 14.1 g/dL 13.0-16.5 [facility] Immature granulocytes/100 WB C Auto (Bld)Ordered By: Simeon Gifford on 08-31-2024 Immature granulocytes/100 WBC (Bld) 0.300 % 0.0-0.9 [facility] Comment on above: IG% - Immature Granu locytes (promyelocytes, myelocytes and metamyelocytes) > 1% indicates that a LEFT SHIFT is Present. Lymphocytes Auto (Unsp spec) [#/Vol]Ordered By: Simeon Gifford on 08-31-2024 Lymphocytes (Bld) [#/Vol] 1.32 10*3/uL 0.83-4.51 [facility] Lymphocytes/100 WBC Auto (Un sp spec)Ordered By: Simeon Gifford on 08-31-2024 Lymphocytes/100 WBC (Bld) 17.1 % Low 19-41 [facility] MCV (mean corpuscular volume ) determinationOrdered By: Simeon Gifford 08-31-2024 MCV (RBC) [Entitic vol] 87.3 fL 80-94 [facility] Mean corpuscular hemoglobin (MCH) determinationOrdered By: Simeon Gifford 08-31-2024 MCH (RBC) [Entitic mass] 28.0 pg 27.0-32.0 [facility] Mean corpuscular hemoglobin concentration (MCHC) determinationOrdered By: Simeon Gifford on 08-31-2024 MCHC (RBC) [Mass/Vol] 32.1 g/dL 32-36 [facility] Mean platelet volume determi nationOrdered By: Simeon Gifford on 08-31-2024 Platelet mean volume (Bld) [Entitic vol] 10.6 fL 6.2-12.0 [facility] Monocyte percentageOrdered B y: Simeon Gifford on 08-31-2024 Monocytes/100 WBC (Bld) 4.0 % 0-10 [facility] Neutrophil percentageOrdered By: Simeon Gifford on 08-31-2024 Neutrophils/100 WBC (Bld) 73.4 % High 47-70 [facility] Nucleated red blood cell per centageOrdered By: Simeon Gifford on 08-31-2024 Nucleated RBC/100 WBC (Bld) [Ratio] 0 % 0-5 [facility] Pacemaker Checkon 08-31-2024 Pacemaker Check Normal [facility] Platelet countOrdered By: Willy Gifford on 08-31-2024 Platelets (Bld) [#/Vol] 178 10*3/uL 150-450 [facility] Potassium (Unsp spec) [Mass/ Vol]Ordered By: Simeon Gifford on 08-31-2024 Potassium [Moles/Vol] 3.8 mmol/L 3.3-5.1 [facility] Potassium measurement (mass/ volume)Ordered By: Simeon Gifford on 08-31-2024 Potassium (Unsp spec) [Mass/Vol] 3.8 mmol/L 3.3-5.1 [facility] RBC Auto (Bld) [#/Vol]Ordere d By: Simeon Gifford on 08-31-2024 RBC (Bld) [#/Vol] 5.03 10*6/uL 4.6-6.2 [facility] Serum creatinine measurement (mass/volume)Ordered By: Simeon Gifford on 08-31-2024 Creatinine [Mass/Vol] 1.02 mg/dL 0.70-1.20 [facility] Serum glucose measurement (m ass/volume)Ordered By: Simeon Gifford on 08-31-2024 Glucose [Mass/Vol] 159 mg/dL High 70-99 [facility] Serum or plasma calcium tristan urement (mass/volume)Ordered By: Simeon Gifford on 08-31-2024 Calcium [Mass/Vol] 9.1 mg/dL 7.6-11.0 [facility] Serum or plasma urea nitroge n measurement (mass/volume)Ordered By: Simeon Gifford on 08-31-2024 Urea nitrogen [Mass/Vol] 21 mg/dL High 4-19 [facility] Sodium levelOrdered By: Simeon Gifford on 08-31-2024 Sodium [Moles/Vol] 140 mmol/L 133-145 [facility] White blood cell (WBC) count Ordered By: Simeon Gifford on 08-31-2024 WBC (Bld) [#/Vol] 7.7 10*3/uL 4.4-11.0 [facility] Absolute neutrophil countOrd ered By: Simeon Gifford on 08-20-2024 Neutrophils (Bld) [#/Vol] 5.4 10*3/uL 2.0-7.7 [facility] BUN/creatinine ratioOrdered By: Simeon Gifford on 08-20-2024 Urea nitrogen/Creatinine [Mass ratio] 20.9 mg/mg High 10-20 [facility] Basic Metabolic Profile (BMP )on 08-20-2024 Anion gap [Moles/Vol] 11 mmol/L Normal 5-15 [facility] Comment on above: Performed By: #### L 500.2500 ####[facility] [address] [place], [address] BUN/CRE 20.9 RATIO High 04-11 [facility] Comment on above: Performed By: #### L 500.2500 ####[facility] [address] [place], [address] Calcium [Mass/Vol] 8.6 mg/dL Normal 7.6-11.0 [facility] Comment on above: Performed By: #### L 500.2500 ####[facility] [address] [place], [address] Chloride [Moles/Vol] 101 mmol/L Normal 96-108 [facility] Comment on above: Performed By: #### L 500.2500 ####[facility] [address] [place], [address] CO2 [Moles/Vol] 29.2 mmol/L High 22.0-29.0 [facility] Comment on above: Performed By: #### L 500.2500 ####[facility] [address] [place], [address] Creatinine [Mass/Vol] 1.00 mg/dL Normal 0.70-1.20 [facility] Comment on above: Performed By: #### L 500.2500 ####[facility] [address] [place], [address] ECRCL 75.40 ml/min Normal [facility] Comment on above: Performed By: #### L 500.2500 ####[facility] [address] [place], [address] GFR/1.73 sq M.predicted among non-blacks MDRD (S/P/Bld) [Vol rate/Area] 74 mL/min/{1.73_m2} Normal >60 [facility] Comment on above: Result Comment: mL/m in/1.73m2 CKD-EPI Creatinine Equation (2020) Performed By: #### L 500.2500 ####[facility] [address] [place], [address] Glucose [Mass/Vol] 111 mg/dL High 70-99 [facility] Comment on above: Performed By: #### L 500.2500 ####[facility] [address] [place], [address] Potassium [Moles/Vol] 4.1 mmol/L Normal 3.3-5.1 [facility] Comment on above: Performed By: #### L 500.2500 ####[facility] [address] [place], [address] Sodium [Moles/Vol] 141 mmol/L Normal 133-145 [facility] Comment on above: Performed By: #### L 500.2500 ####[facility] [address] [place], [address] Urea nitrogen [Mass/Vol] 21 mg/dL High 4-19 [facility] Comment on above: Performed By: #### L 500.2500 ####[facility] [address] [place], [address] BUN/CRE 21.7 RATIO High 10-20 [facility] Comment on above: Result Comment: WILL REORDER Performed By: #### L 500.2500, L100.0100 ####[facility] [address] [place], [address] Creatinine [Mass/Vol] 0.97 mg/dL Normal 0.70-1.20 [facility] Comment on above: Result Comment: WILL REORDER Performed By: #### L 500.2500, L100.0100 ####[facility] [address] [place], [address] ECRCL 77.73 ml/min Normal [facility] Comment on above: Result Comment: WILL REORDER Performed By: #### L 500.2500, L100.0100 ####[facility] [address] [place], [address] GFR/1.73 sq M.predicted among non-blacks MDRD (S/P/Bld) [Vol rate/Area] 77 mL/min/{1.73_m2} Normal >60 [facility] Comment on above: Result Comment: WILL REORDERmL/min/1.73m2 CKD-EPI Creatinine Equation (2020) Performed By: #### L 500.2500, L100.0100 ####[facility] [address] [place], [address] Glucose [Mass/Vol] 112 mg/dL High 70-99 [facility] Comment on above: Result Comment: WILL REORDER Performed By: #### L 500.2500, L100.0100 ####[facility] [address] [place], [address] Urea nitrogen [Mass/Vol] 21 mg/dL High 4-19 [facility] Comment on above: Result Comment: WILL REORDER Performed By: #### L 500.2500, L100.0100 ####[facility] [address] [place], [address] Calcium Normal 8.5-10.1 [facility] Comment on above: Result Comment: WILL REORDER Performed By: #### L 500.2500, L100.0100 ####[facility] [address] [place], [address] CL Normal 98-107 [facility] Comment on above: Result Comment: WILL REORDER Performed By: #### L 500.2500, L100.0100 ####[facility] [address] [place], [address] CO2 Normal 21.0-32.0 [facility] Comment on above: Result Comment: WILL REORDER Performed By: #### L 500.2500, L100.0100 ####[facility] [address] [place], [address] EST GFR - AA Normal >60 [facility] Comment on above: Result Comment: WILL REORDER Performed By: #### L 500.2500, L100.0100 ####[facility] [address] [place], [address] GAP Normal 5-15 [facility] Comment on above: Result Comment: WILL REORDER Performed By: #### L 500.2500, L100.0100 ####[facility] [address] [place], [address] Potassium Normal 3.5-5.1 [facility] Comment on above: Result Comment: WILL REORDER Performed By: #### L 500.2500, L100.0100 ####[facility] [address] [place], [address] Basic Metabolic Profile (BMP) Normal 136-145 [facility] Comment on above: Result Comment: WILL REORDER Performed By: #### L 500.2500, L100.0100 ####[facility] [address] [place], [address] Basophil percentageOrdered B y: Simeon Balta on 08-20-2024 Basophils/100 WBC (Bld) 1.1 % High 0-1 [facility] CBC W/Diff, Automatedon - Absolute Lymph 1.35 X10 3/uL Normal 0.83-4.51 [facility] Comment on above: Performed By: #### L 500.2500, L100.0100 ####[facility] [address] [place], [address] Absolute Neut 5.4 X10 3/uL Normal 2.0-7.7 [facility] Comment on above: Performed By: #### L 500.2500, L100.0100 ####[facility] [address] [place], [address] Basophils/100 WBC (Bld) 1.1 % High 0-1 [facility] Comment on above: Performed By: #### L 500.2500, L100.0100 ####[facility] [address] [place], [address] Eosinophils/100 WBC (Bld) 6.7 % High 0-5 [facility] Comment on above: Performed By: #### L 500.2500, L100.0100 ####[facility] [address] [place], [address] Erythrocyte distribution width (RBC) [Ratio] 17.8 % High 11.6-14.6 [facility] Comment on above: Performed By: #### L 500.2500, L100.0100 ####[facility] [address] [place], [address] Hematocrit (Bld) [Volume fraction] 40.6 % Normal 40-54 [facility] Comment on above: Performed By: #### L 500.2500, L100.0100 ####[facility] [address] [place], [address] Hemoglobin (Bld) [Mass/Vol] 12.6 g/dL Low 13.0-16.5 [facility] Comment on above: Performed By: #### L 500.2500, L100.0100 ####[facility] [address] [place], [address] IG% 0.400 Normal 0.0-0.9 [facility] Comment on above: Result Comment: IG% - Immature Granulocytes (promyelocytes, myelocytes andmetamyelocytes) > 1% indicates that a LEFT SHIFT is Present. Performed By: #### L 500.2500, L100.0100 ####[facility] [address] [place], [address] Lymphocytes/100 WBC (Bld) 16.7 % Low 19-41 [facility] Comment on above: Performed By: #### L 500.2500, L100.0100 ####[facility] [address] [place], [address] MCH (RBC) [Entitic mass] 27.5 pg Normal 27.0-32.0 [facility] Comment on above: Performed By: #### L 500.2500, L100.0100 ####[facility] [address] [place], [address] MCHC (RBC) [Mass/Vol] 31.0 g/dL Low 32-36 [facility] Comment on above: Performed By: #### L 500.2500, L100.0100 ####[facility] [address] [place], [address] MCV (RBC) [Entitic vol] 88.6 fL Normal 80-94 [facility] Comment on above: Performed By: #### L 500.2500, L100.0100 ####[facility] [address] [place], [address] Monocytes/100 WBC (Bld) 7.6 % Normal 0-10 [facility] Comment on above: Performed By: #### L 500.2500, L100.0100 ####[facility] [address] [place], [address] Neutrophils/100 WBC (Bld) 67.5 % Normal 47-70 [facility] Comment on above: Performed By: #### L 500.2500, L100.0100 ####[facility] [address] [place], [address] Nucleated RBC (Bld) [#/Vol] 0 10*3/uL Normal 0-5 [facility] Comment on above: Performed By: #### L 500.2500, L100.0100 ####[facility] [address] [place], [address] Platelet mean volume (Bld) [Entitic vol] 10.6 fL Normal 6.2-12.0 [facility] Comment on above: Performed By: #### L 500.2500, L100.0100 ####[facility] [address] [place], [address] Platelets (Bld) [#/Vol] 174 10*3/uL Normal 150-450 [facility] Comment on above: Performed By: #### L 500.2500, L100.0100 ####[facility] [address] [place], [address] RBC (Bld) [#/Vol] 4.58 10*6/uL Low 4.6-6.2 [facility] Comment on above: Performed By: #### L 500.2500, L100.0100 ####[facility] [address] [place], [address] RDW SD 58.3 fl High 35.1-43.9 [facility] Comment on above: Performed By: #### L 500.2500, L100.0100 ####[facility] [address] [place], [address] WBC (Bld) [#/Vol] 8.1 10*3/uL Normal 4.4-11.0 [facility] Comment on above: Performed By: #### L 500.2500, L100.0100 ####[facility] [address] [place], [address] Carbon dioxide measurementOr dered By: Simeon Gifford on 08-20-2024 CO2 [Moles/Vol] 29.2 mmol/L High 22.0-29.0 [facility] Chloride measurementOrdered By: Simeon Balta 08-20-2024 Chloride [Moles/Vol] 101 mmol/L 96-108 [facility] Eosinophil percentageOrdered By: Simeon Balta 08-20-2024 Eosinophils/100 WBC (Bld) 6.7 % High 0-5 [facility] Erythrocyte distribution wid th ratioOrdered By: [facility] Erythrocyte distribution width (RBC) [Ratio] 17.8 % High 11.6-14.6 [facility] Erythrocyte distribution wid th standard deviationOrdered By: [facility] 08-20-2024 Erythrocyte distribution width (RBC) [Entitic vol] 58.3 fL High 35.1-43.9 [facility] Estimation of creatinine michael aranceOrdered By: Simeon Gifford 08-20-2024 Estimated Creatinine Clearance Calc 75.40 ml/min [facility] GFR/1.73 sq M.predicted garett g non-blacks MDRD (S/P/Bld) [Vol rate/Area]Ordered By: Simeon Gifford 08-20-2024 Estimated GFR (MDRD) Non-Af Amer 74 >60 [facility] Comment on above: mL/min/1.73m2 CKD-EP I Creatinine Equation (2020) Hematocrit Auto (Bld) [Volum e fraction]Ordered By: Simeon Gifford 08-20-2024 Hematocrit (Bld) [Volume fraction] 40.6 % 40-54 [facility] Hemoglobin measurementOrdere d By: Simeon Gifford 08-20-2024 Hemoglobin (Bld) [Mass/Vol] 12.6 g/dL Low 13.0-16.5 [facility] Immature granulocytes/100 WB C Auto (Bld)Ordered By: Simeon Gifford on 08-20-2024 Immature granulocytes/100 WBC (Bld) 0.400 % 0.0-0.9 [facility] Comment on above: IG% - Immature Granu locytes (promyelocytes, myelocytes and metamyelocytes) > 1% indicates that a LEFT SHIFT is Present. Lymphocytes Auto (Unsp spec) [#/Vol]Ordered By: Simeon Gifford on 08-20-2024 Lymphocytes (Bld) [#/Vol] 1.35 10*3/uL 0.83-4.51 [facility] Lymphocytes/100 WBC Auto (Un sp spec)Ordered By: Simeon Gifford on 08-20-2024 Lymphocytes/100 WBC (Bld) 16.7 % Low 19-41 [facility] MCV (mean corpuscular volume ) determinationOrdered By: Simeon Gifford on 08-20-2024 MCV (RBC) [Entitic vol] 88.6 fL 80-94 [facility] Mean corpuscular hemoglobin (MCH) determinationOrdered By: Simeon Gifford 08-20-2024 MCH (RBC) [Entitic mass] 27.5 pg 27.0-32.0 [facility] Mean corpuscular hemoglobin concentration (MCHC) determinationOrdered By: Simeon Gifford 08-20-2024 MCHC (RBC) [Mass/Vol] 31.0 g/dL Low 32-36 [facility] Mean platelet volume determi nationOrdered By: Simeon Gifford on 08-20-2024 Platelet mean volume (Bld) [Entitic vol] 10.6 fL 6.2-12.0 [facility] Monocyte percentageOrdered B y: Simeon Gifford on 08-20-2024 Monocytes/100 WBC (Bld) 7.6 % 0-10 [facility] Neutrophil percentageOrdered By: Simeon Gifford on 08-20-2024 Neutrophils/100 WBC (Bld) 67.5 % 47-70 [facility] Nucleated red blood cell per centageOrdered By: Simeon Gifford on 08-20-2024 Nucleated RBC/100 WBC (Bld) [Ratio] 0 % 0-5 [facility] Platelet countOrdered By: Willy Gifford on 08-20-2024 Platelets (Bld) [#/Vol] 174 10*3/uL 150-450 [facility] RBC Auto (Bld) [#/Vol]Ordere d By: Simeon Gifford on 08-20-2024 RBC (Bld) [#/Vol] 4.58 10*6/uL Low 4.6-6.2 [facility] Serum creatinine measurement (mass/volume)Ordered By: Simeon Gifford on 08-20-2024 Creatinine [Mass/Vol] 1.00 mg/dL 0.70-1.20 [facility] Serum glucose measurement (m ass/volume)Ordered By: Simeon Gifford on 08-20-2024 Glucose [Mass/Vol] 111 mg/dL High 70-99 [facility] Serum or plasma anion gap de termination (moles/volume)Ordered By: Simeon Gifford on 08-20-2024 Anion gap [Moles/Vol] 11 mmol/L 5-15 [facility] Serum or plasma calcium tristan urement (mass/volume)Ordered By: Simeon Gifford on 08-20-2024 Calcium [Mass/Vol] 8.6 mg/dL 7.6-11.0 [facility] Serum or plasma potassium me asurementOrdered By: Simeon Gifford 08-20-2024 Potassium [Moles/Vol] 4.1 mmol/L 3.3-5.1 [facility] Serum or plasma sodium measu rement (moles/volume)Ordered By: Simeon Gifford 08-20-2024 Sodium [Moles/Vol] 141 mmol/L 133-145 [facility] Serum or plasma urea nitroge n measurement (mass/volume)Ordered By: Simeon Gifford on 08-20-2024 Urea nitrogen [Mass/Vol] 21 mg/dL High 4-19 [facility] White blood cell (WBC) count Ordered By: Simeon Gifford on 08-20-2024 WBC (Bld) [#/Vol] 8.1 10*3/uL 4.4-11.0 [facility] Knee 4 or More Viewson 08-19 Knee 4 or More Views Normal [facility] Serum or plasma uric acid me asurement (mass/volume)Ordered By: Simeon Gifford on 08-19-2024 Urate [Mass/Vol] 7.1 mg/dL 3.5-7.2 [facility] Comment on above: The drugs N-Acetylcy steine and Metamizole may falsely depress this assay. Uric Acidon 08-19-2024 URIC 7.1 mg/dL Normal 3.5-7.2 [facility] Comment on above: Result Comment: The drugs N-Acetylcysteine and Metamizole may falselydepress this assay. Performed By: #### L 501.1400 ####[facility] [address] [place], [address] Venous Duplex US, Unilateral on 08-19-2024 Venous Duplex US, Unilateral Normal [facility] Venous duplex ultrasound rep ortOrdered By: Jonh Oshea on 08-19-2024 US Vein [facility] [address] [place] [address] Venous Duplex US, Unilateral 08/19/24 0952 MR#: [id number] Acct: [id number] Name: REGAN ARANGO Rep #:[id number] : 1940 83 From: Jonh Barajas Attending Dr: Dr. Simeon Gifford MD Status: REG CLI Ordering Dr: Simeon Gifford MD Date: Location: CVS Sex: M C Admitted: Reason For Study Reason For Study: RLE Pain RIGHT LEFT GSV is normal. CFV is compressible, spontaneous, phasic, competent, CFV is compressible, spontaneous, phasic, competent and demonstrates normal augmentation. and demonstrates normal augmentation. FV is compressible, spontaneous, phasic, competent and demonstrates normal augmentation. POP V is compressible, spontaneous, phasic, competent and demonstrates normal augmentation. T/P Trunk is compressible. PTV is compressible. RT PerV is compressible. Non Vascularized anechoic area measuring 4.47cm x 1.40cm noted in Rt Pop Fossa. Procedure This is a venous duplex using B-mode, color flow and spectral Doppler. Exam performed portable in patient room. The exam was diagnostic. A preliminary report was called and/or faxed to [facility] nuclear spectroscopist. VL/Venous Duplex US, Unilateral Interpretation Summary Deep veins of the right lower extremity are patent and compressible segmentally.There is no evidence of right lower extremity deep vein thrombosis. The right great saphenous vein appears patent and compressible segmentally. Non Vascularized anechoic area measuring 4.47cm x 1.40cm noted in right popliteal fossa. Ordering Physician: Simeon Gifford Chi Referring Physician: Simeon Gifford Chi Performed By: Stanton Daigle RVT 08/19/24 1534 Date _ Jonh Oshea MD CC: Dr. Jose Fam MD; Dr. Simeon Gifford MD ~ Date Dictated: 08/19/24951 Date Transcribed: 08/19/241533 Sterile Process Coordinator: Signed [facility] Work Phone: Basic Metabolic Profile (BMP )on 08-17-2024 BUN/CRE 20.6 RATIO High 10-20 [facility] Comment on above: Performed By: #### L 100.0100, L500.2500 ####[facility] [address] [place], [place], [id number] CA,Total 8.7 mg/dL Normal 8.5-10.1 [facility] Comment on above: Performed By: #### L 100.0100, L500.2500 ####[facility] [address] [place], [place], [id number] Chloride [Moles/Vol] 104 mmol/L Normal 98-107 [facility] Comment on above: Performed By: #### L 100.0100, L500.2500 ####[facility] [address] [place], [address] CO2 [Moles/Vol] 29.0 mmol/L Normal 21.0-32.0 [facility] Comment on above: Performed By: #### L 100.0100, L500.2500 ####[facility] [address] [place], [address] Creatinine [Mass/Vol] 1.02 mg/dL Normal 0.70-1.30 [facility] Comment on above: Result Comment: The validity of the calculated GFR GFRAA in patients over70 years has not been determined. Clinical correlation isessential. Performed By: #### L 100.0100, L500.2500 ####[facility] [address] [place], [address] ECRCL 74.14 ml/min Normal [facility] Comment on above: Performed By: #### L 100.0100, L500.2500 ####[facility] [address] [place], [address] EST GFR - AA 89 mL/min Normal >60 [facility] Comment on above: Result Comment: Afri can [place] GFR Calc Performed By: #### L 100.0100, L500.2500 ####[facility] [address] [place], [address] GAP 8 Normal 5-15 [facility] Comment on above: Performed By: #### L 100.0100, L500.2500 ####[facility] [address] [place], [address] GFR/1.73 sq M.predicted among non-blacks MDRD (S/P/Bld) [Vol rate/Area] 74 mL/min/{1.73_m2} Normal >60 [facility] Comment on above: Result Comment: Non- GFR Calc Performed By: #### L 100.0100, L500.2500 ####[facility] [address] [place], [address] Glucose [Mass/Vol] 110 mg/dL High 74-106 [facility] Comment on above: Result Comment: Fast ing Glucose result from 100 to 125 mg/dLsuggests IMPAIRED HOMEOSTASIS per A.D.A. criteria. Performed By: #### L 100.0100, L500.2500 ####[facility] [address] [place], [address] Potassium [Moles/Vol] 3.9 mmol/L Normal 3.5-5.1 [facility] Comment on above: Performed By: #### L 100.0100, L500.2500 ####[facility] [address] [place], [address] Sodium [Moles/Vol] 140 mmol/L Normal 136-145 [facility] Comment on above: Performed By: #### L 100.0100, L500.2500 ####[facility] [address] [place], [address] Urea nitrogen [Mass/Vol] 21 mg/dL High 7-18 [facility] Comment on above: Performed By: #### L 100.0100, L500.2500 ####[facility] [address] [place], [address] CBC W/Diff, Automatedon 02-2 Absolute Lymph 1.26 X10 3/uL Normal 0.83-4.51 [facility] Comment on above: Performed By: #### L 100.0100, L500.2500 ####[facility] [address] [place], [address] Absolute Neut 5.5 X10 3/uL Normal 2.0-7.7 [facility] Comment on above: Performed By: #### L 100.0100, L500.2500 ####[facility] [address] [place], [address] Basophils/100 WBC (Bld) 1.0 % Normal 0-1 [facility] Comment on above: Performed By: #### L 100.0100, L500.2500 ####[facility] [address] [place], [address] Eosinophils/100 WBC (Bld) 4.9 % Normal 0-5 [facility] Comment on above: Performed By: #### L 100.0100, L500.2500 ####[facility] [address] [place], [address] Erythrocyte distribution width (RBC) [Ratio] 18.0 % High 11.6-14.6 [facility] Comment on above: Performed By: #### L 100.0100, L500.2500 ####[facility] [address] [place], [address] Hematocrit (Bld) [Volume fraction] 41.8 % Normal 40-54 [facility] Comment on above: Performed By: #### L 100.0100, L500.2500 ####[facility] [address] [place], [address] Hemoglobin (Bld) [Mass/Vol] 13.0 g/dL Normal 13.0-16.5 [facility] Comment on above: Performed By: #### L 100.0100, L500.2500 ####[facility] [address] [place], [address] IG% 0.400 Normal 0.0-0.9 [facility] Comment on above: Result Comment: IG% - Immature Granulocytes (promyelocytes, myelocytes andmetamyelocytes) > 1% indicates that a LEFT SHIFT is Present. Performed By: #### L 100.0100, L500.2500 ####[facility] [address] [place], [address] Lymphocytes/100 WBC (Bld) 16.0 % Low 19-41 [facility] Comment on above: Performed By: #### L 100.0100, L500.2500 ####[facility] [address] [place], [address] MCH (RBC) [Entitic mass] 27.1 pg Normal 27.0-32.0 [facility] Comment on above: Performed By: #### L 100.0100, L500.2500 ####[facility] [address] [place], [address] MCHC (RBC) [Mass/Vol] 31.1 g/dL Low 32-36 [facility] Comment on above: Performed By: #### L 100.0100, L500.2500 ####[facility] [address] [place], [address] MCV (RBC) [Entitic vol] 87.3 fL Normal 80-94 [facility] Comment on above: Performed By: #### L 100.0100, L500.2500 ####[facility] [address] [place], [address] Monocytes/100 WBC (Bld) 7.9 % Normal 0-10 [facility] Comment on above: Performed By: #### L 100.0100, L500.2500 ####[facility] [address] [place], [address] Neutrophils/100 WBC (Bld) 69.8 % Normal 47-70 [facility] Comment on above: Performed By: #### L 100.0100, L500.2500 ####[facility] [address] [place], [address] Nucleated RBC (Bld) [#/Vol] 0 10*3/uL Normal 0-5 [facility] Comment on above: Performed By: #### L 100.0100, L500.2500 ####[facility] [address] [place], [address] Platelet mean volume (Bld) [Entitic vol] 10.9 fL Normal 6.2-12.0 [facility] Comment on above: Performed By: #### L 100.0100, L500.2500 ####[facility] [address] [place], [address] Platelets (Bld) [#/Vol] 172 10*3/uL Normal 150-450 [facility] Comment on above: Performed By: #### L 100.0100, L500.2500 ####[facility] [address] [place], [address] RBC (Bld) [#/Vol] 4.79 10*6/uL Normal 4.6-6.2 [facility] Comment on above: Performed By: #### L 100.0100, L500.2500 ####[facility] [address] [place], [address] RDW SD 57.5 fl High 35.1-43.9 [facility] Comment on above: Performed By: #### L 100.0100, L500.2500 ####[facility] [address] [place], [address] WBC (Bld) [#/Vol] 7.9 10*3/uL Normal 4.4-11.0 [facility] Comment on above: Performed By: #### L 100.0100, L500.2500 ####[facility] [address] [place], [address] Chloride measurementOrdered By: Simeon Gifford on 08-17-2024 Chloride [Moles/Vol] 104 mmol/L 98-107 [facility] Estimated glomerular filtrat ion rate (GFR) AmericanOrdered By: Simeon Gifford on 08-17-2024 Estimated GFR (MDRD) Amer 89 mL/min >60 [facility] Comment on above: GFR Calc Venous Duplex US, Unilateral on 08-17-2024 Venous Duplex US, Unilateral Normal [facility] Venous duplex ultrasound rep ortOrdered By: Jonh Oshea on 08-17-2024 US Vein [facility] [address] [place] [address] Venous Duplex US, Unilateral 08/17/24 1100 MR#: [id number] Acct: [id number] Name: REGAN ARANGO Rep #:[id number] : 1940 83 From: Jonh Barajas Attending Dr: Dr. Simeon Gifford MD Status: REG CLI Ordering Dr: Simeon Gifford MD Date: Location: CVS Sex: M C Admitted: Reason For Study Reason For Study: Swelling RIGHT LEFT CFV is compressible, spontaneous, phasic, competent GSV is normal. and demonstrates normal augmentation. CFV is compressible, spontaneous, phasic, competent, Procedure and demonstrates normal augmentation. This is a venous duplex using B-mode, color flow and FV is compressible, spontaneous, phasic, competent spectral Doppler. and demonstrates normal augmentation. Exam performed portable in patient room. POP V is compressible, spontaneous, phasic, competent and demonstrates normal augmentation. T/P Trunk is compressible. PTV is compressible. LT PerV is compressible. VL/Venous Duplex US, Unilateral Interpretation Summary Deep veins of the left lower extremity are patent and compressible segmentally. There is no evidence of left lower extremity deep vein thrombosis. The left great saphenous vein appears patent andcompressible segmentally. Ordering Physician: Simeon Gifford Chi Referring Physician: Jose Fam MD Performed By: Shannan Lanza RVT and Student 08/17/24 1409 Date _ Jonh Oshea MD CC: Dr. Jose Fam MD; Dr. Simeon Gifford MD ~ Date Dictated: 08/17/24 1100 Date Transcribed: 08/17/24 1409 Sterile Process Coordinator: Signed [facility] Work Phone: Basic Metabolic Profile (BMP )on 08-13-2024 BUN/CRE 22.0 RATIO High 10-20 [facility] Comment on above: Performed By: #### L 500.2500, L100.0100 ####[facility] [address] [place], [address] CA,Total 9.2 mg/dL Normal 8.5-10.1 [facility] Comment on above: Performed By: #### L 500.2500, L100.0100 ####[facility] [address] [place], [address] Chloride [Moles/Vol] 105 mmol/L Normal 98-107 [facility] Comment on above: Performed By: #### L 500.2500, L100.0100 ####[facility] [address] [place], [address] CO2 [Moles/Vol] 29.0 mmol/L Normal 21.0-32.0 [facility] Comment on above: Performed By: #### L 500.2500, L100.0100 ####[facility] [address] [place], [address] Creatinine [Mass/Vol] 1.09 mg/dL Normal 0.70-1.30 [facility] Comment on above: Result Comment: The validity of the calculated GFR GFRAA in patients over70 years has not been determined. Clinical correlation isessential. Performed By: #### L 500.2500, L100.0100 ####[facility] [address] [place], [address] ECRCL 69.38 ml/min Normal [facility] Comment on above: Performed By: #### L 500.2500, L100.0100 ####[facility] [address] [place], [address] EST GFR - AA 83 mL/min Normal >60 [facility] Comment on above: Result Comment: Afri can [place] GFR Calc Performed By: #### L 500.2500, L100.0100 ####[facility] [address] [place], [address] GAP 8 Normal 5-15 [facility] Comment on above: Performed By: #### L 500.2500, L100.0100 ####[facility] [address] [place], [address] GFR/1.73 sq M.predicted among non-blacks MDRD (S/P/Bld) [Vol rate/Area] 68 mL/min/{1.73_m2} Normal >60 [facility] Comment on above: Result Comment: Non- GFR Calc Performed By: #### L 500.2500, L100.0100 ####[facility] [address] [place], [address] Glucose [Mass/Vol] 114 mg/dL High 74-106 [facility] Comment on above: Result Comment: Fast ing Glucose result from 100 to 125 mg/dLsuggests IMPAIRED HOMEOSTASIS per A.D.A. criteria. Performed By: #### L 500.2500, L100.0100 ####[facility] [address] [place], [address] Potassium [Moles/Vol] 4.2 mmol/L Normal 3.5-5.1 [facility] Comment on above: Performed By: #### L 500.2500, L100.0100 ####[facility] [address] [place], [address] Sodium [Moles/Vol] 142 mmol/L Normal 136-145 [facility] Comment on above: Performed By: #### L 500.2500, L100.0100 ####[facility] [address] [place], [address] Urea nitrogen [Mass/Vol] 24 mg/dL High 7-18 [facility] Comment on above: Performed By: #### L 500.2500, L100.0100 ####[facility] [address] [place], [address] CBC W/Diff, Automatedon 02- Absolute Lymph 1.47 X10 3/uL Normal 0.83-4.51 [facility] Comment on above: Performed By: #### L 500.2500, L100.0100 ####[facility] [address] [place], [address] Absolute Neut 4.9 X10 3/uL Normal 2.0-7.7 [facility] Comment on above: Performed By: #### L 500.2500, L100.0100 ####[facility] [address] [place], [address] Basophils/100 WBC (Bld) 1.2 % High 0-1 [facility] Comment on above: Performed By: #### L 500.2500, L100.0100 ####[facility] [address] [place], [address] Eosinophils/100 WBC (Bld) 6.3 % High 0-5 [facility] Comment on above: Performed By: #### L 500.2500, L100.0100 ####[facility] [address] [place], [address] Erythrocyte distribution width (RBC) [Ratio] 17.8 % High 11.6-14.6 [facility] Comment on above: Performed By: #### L 500.2500, L100.0100 ####[facility] [address] [place], [address] Hematocrit (Bld) [Volume fraction] 41.3 % Normal 40-54 [facility] Comment on above: Performed By: #### L 500.2500, L100.0100 ####[facility] [address] [place], [address] Hemoglobin (Bld) [Mass/Vol] 12.9 g/dL Low 13.0-16.5 [facility] Comment on above: Performed By: #### L 500.2500, L100.0100 ####[facility] [address] [place], [address] IG% 0.400 Normal 0.0-0.9 [facility] Comment on above: Result Comment: IG% - Immature Granulocytes (promyelocytes, myelocytes andmetamyelocytes) > 1% indicates that a LEFT SHIFT is Present. Performed By: #### L 500.2500, L100.0100 ####[facility] [address] [place], [address] Lymphocytes/100 WBC (Bld) 19.6 % Normal 19-41 [facility] Comment on above: Performed By: #### L 500.2500, L100.0100 ####[facility] [address] [place], [address] MCH (RBC) [Entitic mass] 27.5 pg Normal 27.0-32.0 [facility] Comment on above: Performed By: #### L 500.2500, L100.0100 ####[facility] [address] [place], [address] MCHC (RBC) [Mass/Vol] 31.2 g/dL Low 32-36 [facility] Comment on above: Performed By: #### L 500.2500, L100.0100 ####[facility] [address] [place], [address] MCV (RBC) [Entitic vol] 88.1 fL Normal 80-94 [facility] Comment on above: Performed By: #### L 500.2500, L100.0100 ####[facility] [address] [place], [address] Monocytes/100 WBC (Bld) 7.3 % Normal 0-10 [facility] Comment on above: Performed By: #### L 500.2500, L100.0100 ####[facility] [address] [place], [address] Neutrophils/100 WBC (Bld) 65.2 % Normal 47-70 [facility] Comment on above: Performed By: #### L 500.2500, L100.0100 ####[facility] [address] [place], [address] Nucleated RBC (Bld) [#/Vol] 0 10*3/uL Normal 0-5 [facility] Comment on above: Performed By: #### L 500.2500, L100.0100 ####[facility] [address] [place], [address] Platelet mean volume (Bld) [Entitic vol] 10.2 fL Normal 6.2-12.0 [facility] Comment on above: Performed By: #### L 500.2500, L100.0100 ####[facility] [address] [place], [address] Platelets (Bld) [#/Vol] 181 10*3/uL Normal 150-450 [facility] Comment on above: Performed By: #### L 500.2500, L100.0100 ####[facility] [address] [place], [address] RBC (Bld) [#/Vol] 4.69 10*6/uL Normal 4.6-6.2 [facility] Comment on above: Performed By: #### L 500.2500, L100.0100 ####[facility] [address] [place], [address] RDW SD 57.1 fl High 35.1-43.9 [facility] Comment on above: Performed By: #### L 500.2500, L100.0100 ####[facility] [address] [place], [address] WBC (Bld) [#/Vol] 7.5 10*3/uL Normal 4.4-11.0 [facility] Comment on above: Performed By: #### L 500.2500, L100.0100 ####[facility] [address] [place], [address] COVID 19 AG RAPID (HASEEB Jacques)on 08-11-2024 SARS-CoV-2 (COVID-19) RNA ERNIE+probe Ql (Unsp spec) Normal [facility] Comment on above: Performed By: #### M 100.505 ####[facility] [address] [place], [address] COVID-19 virus antigen assay Ordered By: Simeon Gifford on 08-11-2024 SARS-CoV-2 (COVID-19) Ag IA.rapid Ql (Resp) [facility] SARS-CoV-2 (COVID-19) Ag IA. rapid Ql (Resp)Ordered By: Simeon Gifford on 08-11-2024 SARS-CoV-2 Antigen (Rapid) [facility] Basic Metabolic Profile (BMP )on 08-06-2024 BUN/CRE 21.0 RATIO High 10-20 [facility] Comment on above: Performed By: #### L 100.0100, L500.2500 ####[facility] [address] [place], [address] CA,Total 8.8 mg/dL Normal 8.5-10.1 [facility] Comment on above: Performed By: #### L 100.0100, L500.2500 ####[facility] [address] [place], [address] Chloride [Moles/Vol] 106 mmol/L Normal 98-107 [facility] Comment on above: Performed By: #### L 100.0100, L500.2500 ####[facility] [address] [place], [address] CO2 [Moles/Vol] 31.0 mmol/L Normal 21.0-32.0 [facility] Comment on above: Performed By: #### L 100.0100, L500.2500 ####[facility] [address] [place], [address] Creatinine [Mass/Vol] 0.95 mg/dL Normal 0.70-1.30 [facility] Comment on above: Result Comment: The validity of the calculated GFR GFRAA in patients over70 years has not been determined. Clinical correlation isessential. Performed By: #### L 100.0100, L500.2500 ####[facility] [address] [place], [address] ECRCL 79.76 ml/min Normal [facility] Comment on above: Performed By: #### L 100.0100, L500.2500 ####[facility] [address] [place], [address] EST GFR - AA 97 mL/min Normal >60 [facility] Comment on above: Result Comment: Afri can [place] GFR Calc Performed By: #### L 100.0100, L500.2500 ####[facility] [address] [place], [address] GAP 3 Low 5-15 [facility] Comment on above: Performed By: #### L 100.0100, L500.2500 ####[facility] [address] [place], [address] GFR/1.73 sq M.predicted among non-blacks MDRD (S/P/Bld) [Vol rate/Area] 80 mL/min/{1.73_m2} Normal >60 [facility] Comment on above: Result Comment: Non- GFR Calc Performed By: #### L 100.0100, L500.2500 ####[facility] [address] [place], [address] Glucose [Mass/Vol] 111 mg/dL High 74-106 [facility] Comment on above: Result Comment: Fast ing Glucose result from 100 to 125 mg/dLsuggests IMPAIRED HOMEOSTASIS per A.D.A. criteria. Performed By: #### L 100.0100, L500.2500 ####[facility] [address] [place], [address] Potassium [Moles/Vol] 3.6 mmol/L Normal 3.5-5.1 [facility] Comment on above: Performed By: #### L 100.0100, L500.2500 ####[facility] [address] [place], [address] Sodium [Moles/Vol] 141 mmol/L Normal 136-145 [facility] Comment on above: Performed By: #### L 100.0100, L500.2500 ####[facility] [address] [place], [address] Urea nitrogen [Mass/Vol] 20 mg/dL High 7-18 [facility] Comment on above: Performed By: #### L 100.0100, L500.2500 ####[facility] [address] [place], [address] CBC W/Diff, Automatedon 02- Absolute Lymph 1.13 X10 3/uL Normal 0.83-4.51 [facility] Comment on above: Performed By: #### L 100.0100, L500.2500 ####[facility] [address] [place], [address] Absolute Neut 4.7 X10 3/uL Normal 2.0-7.7 [facility] Comment on above: Performed By: #### L 100.0100, L500.2500 ####[facility] [address] [place], [address] Basophils/100 WBC (Bld) 1.2 % High 0-1 [facility] Comment on above: Performed By: #### L 100.0100, L500.2500 ####[facility] [address] [place], [address] Eosinophils/100 WBC (Bld) 9.3 % High 0-5 [facility] Comment on above: Performed By: #### L 100.0100, L500.2500 ####[facility] [address] [place], [address] Erythrocyte distribution width (RBC) [Ratio] 17.5 % High 11.6-14.6 [facility] Comment on above: Performed By: #### L 100.0100, L500.2500 ####[facility] [address] [place], [address] Hematocrit (Bld) [Volume fraction] 40.8 % Normal 40-54 [facility] Comment on above: Performed By: #### L 100.0100, L500.2500 ####[facility] [address] [place], [address] Hemoglobin (Bld) [Mass/Vol] 12.9 g/dL Low 13.0-16.5 [facility] Comment on above: Performed By: #### L 100.0100, L500.2500 ####[facility] [address] [place], [address] IG% 0.400 Normal 0.0-0.9 [facility] Comment on above: Result Comment: IG% - Immature Granulocytes (promyelocytes, myelocytes andmetamyelocytes) > 1% indicates that a LEFT SHIFT is Present. Performed By: #### L 100.0100, L500.2500 ####[facility] [address] [place], [address] Lymphocytes/100 WBC (Bld) 15.7 % Low 19-41 [facility] Comment on above: Performed By: #### L 100.0100, L500.2500 ####[facility] [address] [place], [address] MCH (RBC) [Entitic mass] 27.6 pg Normal 27.0-32.0 [facility] Comment on above: Performed By: #### L 100.0100, L500.2500 ####[facility] [address] [place], [address] MCHC (RBC) [Mass/Vol] 31.6 g/dL Low 32-36 [facility] Comment on above: Performed By: #### L 100.0100, L500.2500 ####[facility] [address] [place], [address] MCV (RBC) [Entitic vol] 87.4 fL Normal 80-94 [facility] Comment on above: Performed By: #### L 100.0100, L500.2500 ####[facility] [address] [place], [address] Monocytes/100 WBC (Bld) 8.2 % Normal 0-10 [facility] Comment on above: Performed By: #### L 100.0100, L500.2500 ####[facility] [address] [place], [address] Neutrophils/100 WBC (Bld) 65.2 % Normal 47-70 [facility] Comment on above: Performed By: #### L 100.0100, L500.2500 ####[facility] [address] [place], [address] Nucleated RBC (Bld) [#/Vol] 0 10*3/uL Normal 0-5 [facility] Comment on above: Performed By: #### L 100.0100, L500.2500 ####[facility] [address] [place], [address] Platelet mean volume (Bld) [Entitic vol] 10.0 fL Normal 6.2-12.0 [facility] Comment on above: Performed By: #### L 100.0100, L500.2500 ####[facility] [address] [place], [address] Platelets (Bld) [#/Vol] 183 10*3/uL Normal 150-450 [facility] Comment on above: Performed By: #### L 100.0100, L500.2500 ####[facility] [address] [place], [address] RBC (Bld) [#/Vol] 4.67 10*6/uL Normal 4.6-6.2 [facility] Comment on above: Performed By: #### L 100.0100, L500.2500 ####[facility] [address] [place], [address] RDW SD 56.1 fl High 35.1-43.9 [facility] Comment on above: Performed By: #### L 100.0100, L500.2500 ####[facility] [address] [place], [address] WBC (Bld) [#/Vol] 7.2 10*3/uL Normal 4.4-11.0 [facility] Comment on above: Performed By: #### L 100.0100, L500.2500 ####[facility] [address] [place], [address] COVID 19 AG RAPID (HASEEB Jacques)on 08-04-2024 SARS-CoV-2 (COVID-19) RNA ERNIE+probe Ql (Unsp spec) Normal [facility] Comment on above: Performed By: #### M 100.505 ####[facility] [address] [place], [address] COVID-19 virus antigen assay Ordered By: Simeon Gifford on 08-04-2024 SARS-CoV-2 (COVID-19) Ag IA.rapid Ql (Resp) [facility] Pacemaker Checkon 08-04-2024 Pacemaker Check Normal [facility] SARS-CoV-2 (COVID-19) Ag IA. rapid Ql (Resp)Ordered By: Simeon Gifford on 08-04-2024 SARS-CoV-2 Antigen (Rapid) [facility] CNPNon 08-02-2024 CNPN Normal [facility] Basic Metabolic Profile (BMP )on 07-30-2024 BUN/CRE 21.3 RATIO High 10-20 [facility] Comment on above: Performed By: #### L 100.0100, L500.2500 ####[facility] [address] [place], [address] CA,Total 8.5 mg/dL Normal 8.5-10.1 [facility] Comment on above: Performed By: #### L 100.0100, L500.2500 ####[facility] [address] [place], [address] Chloride [Moles/Vol] 106 mmol/L Normal 98-107 [facility] Comment on above: Performed By: #### L 100.0100, L500.2500 ####[facility] [address] [place], [address] CO2 [Moles/Vol] 27.0 mmol/L Normal 21.0-32.0 [facility] Comment on above: Performed By: #### L 100.0100, L500.2500 ####[facility] [address] [place], [address] Creatinine [Mass/Vol] 0.94 mg/dL Normal 0.70-1.30 [facility] Comment on above: Result Comment: The validity of the calculated GFR GFRAA in patients over70 years has not been determined. Clinical correlation isessential. Performed By: #### L 100.0100, L500.2500 ####[facility] [address] [place], [address] ECRCL 80.29 ml/min Normal [facility] Comment on above: Performed By: #### L 100.0100, L500.2500 ####[facility] [address] [place], [address] EST GFR - AA 99 mL/min Normal >60 [facility] Comment on above: Result Comment: Afri can [place] GFR Calc Performed By: #### L 100.0100, L500.2500 ####[facility] [address] [place], [address] GAP 6 Normal 5-15 [facility] Comment on above: Performed By: #### L 100.0100, L500.2500 ####[facility] [address] [place], [address] GFR/1.73 sq M.predicted among non-blacks MDRD (S/P/Bld) [Vol rate/Area] 81 mL/min/{1.73_m2} Normal >60 [facility] Comment on above: Result Comment: Non- GFR Calc Performed By: #### L 100.0100, L500.2500 ####[facility] [address] [place], [address] Glucose [Mass/Vol] 119 mg/dL High 74-106 [facility] Comment on above: Result Comment: Fast ing Glucose result from 100 to 125 mg/dLsuggests IMPAIRED HOMEOSTASIS per A.D.A. criteria. Performed By: #### L 100.0100, L500.2500 ####[facility] [address] [place], [address] Potassium [Moles/Vol] 4.0 mmol/L Normal 3.5-5.1 [facility] Comment on above: Performed By: #### L 100.0100, L500.2500 ####[facility] [address] [place], [address] Sodium [Moles/Vol] 139 mmol/L Normal 136-145 [facility] Comment on above: Performed By: #### L 100.0100, L500.2500 ####[facility] [address] [place], [address] Urea nitrogen [Mass/Vol] 20 mg/dL High 7-18 [facility] Comment on above: Performed By: #### L 100.0100, L500.2500 ####[facility] [address] [place], [address] CBC W/Diff, Automatedon 02-0 -2024 Absolute Lymph 1.11 X10 3/uL Normal 0.83-4.51 [facility] Comment on above: Performed By: #### L 100.0100, L500.2500 ####[facility] [address] [place], [address] Absolute Neut 5.8 X10 3/uL Normal 2.0-7.7 [facility] Comment on above: Performed By: #### L 100.0100, L500.2500 ####[facility] [address] [place], [address] Basophils/100 WBC (Bld) 1.1 % High 0-1 [facility] Comment on above: Performed By: #### L 100.0100, L500.2500 ####[facility] [address] [place], [address] Eosinophils/100 WBC (Bld) 6.6 % High 0-5 [facility] Comment on above: Performed By: #### L 100.0100, L500.2500 ####[facility] [address] [place], [address] Erythrocyte distribution width (RBC) [Ratio] 17.9 % High 11.6-14.6 [facility] Comment on above: Performed By: #### L 100.0100, L500.2500 ####[facility] [address] [place], [address] Hematocrit (Bld) [Volume fraction] 41.2 % Normal 40-54 [facility] Comment on above: Performed By: #### L 100.0100, L500.2500 ####[facility] [address] [place], [address] Hemoglobin (Bld) [Mass/Vol] 13.0 g/dL Normal 13.0-16.5 [facility] Comment on above: Performed By: #### L 100.0100, L500.2500 ####[facility] [address] [place], [address] IG% 0.400 Normal 0.0-0.9 [facility] Comment on above: Result Comment: IG% - Immature Granulocytes (promyelocytes, myelocytes andmetamyelocytes) > 1% indicates that a LEFT SHIFT is Present. Performed By: #### L 100.0100, L500.2500 ####[facility] [address] [place], [address] Lymphocytes/100 WBC (Bld) 13.4 % Low 19-41 [facility] Comment on above: Performed By: #### L 100.0100, L500.2500 ####[facility] [address] [place], [address] MCH (RBC) [Entitic mass] 27.7 pg Normal 27.0-32.0 [facility] Comment on above: Performed By: #### L 100.0100, L500.2500 ####[facility] [address] [place], [address] MCHC (RBC) [Mass/Vol] 31.6 g/dL Low 32-36 [facility] Comment on above: Performed By: #### L 100.0100, L500.2500 ####[facility] [address] [place], [address] MCV (RBC) [Entitic vol] 87.7 fL Normal 80-94 [facility] Comment on above: Performed By: #### L 100.0100, L500.2500 ####[facility] [address] [place], [address] Monocytes/100 WBC (Bld) 8.2 % Normal 0-10 [facility] Comment on above: Performed By: #### L 100.0100, L500.2500 ####[facility] [address] [place], [address] Neutrophils/100 WBC (Bld) 70.3 % High 47-70 [facility] Comment on above: Performed By: #### L 100.0100, L500.2500 ####[facility] [address] [place], [address] Nucleated RBC (Bld) [#/Vol] 0 10*3/uL Normal 0-5 [facility] Comment on above: Performed By: #### L 100.0100, L500.2500 ####[facility] [address] [place], [address] Platelet mean volume (Bld) [Entitic vol] 10.7 fL Normal 6.2-12.0 [facility] Comment on above: Performed By: #### L 100.0100, L500.2500 ####[facility] [address] [place], [address] Platelets (Bld) [#/Vol] 167 10*3/uL Normal 150-450 [facility] Comment on above: Performed By: #### L 100.0100, L500.2500 ####[facility] [address] [place], [address] RBC (Bld) [#/Vol] 4.70 10*6/uL Normal 4.6-6.2 [facility] Comment on above: Performed By: #### L 100.0100, L500.2500 ####[facility] [address] [place], [address] RDW SD 57.3 fl High 35.1-43.9 [facility] Comment on above: Performed By: #### L 100.0100, L500.2500 ####[facility] [address] [place], [address] WBC (Bld) [#/Vol] 8.3 10*3/uL Normal 4.4-11.0 [facility] Comment on above: Performed By: #### L 100.0100, L500.2500 ####[facility] [address] [place], [address] Venous Duplex US, Unilateral on 07-28-2024 Venous Duplex US, Unilateral Normal [facility] EGD Reporton 07-27-2024 EGD Report Normal [facility] MR/POSTOP.ANEon 07-27-2024 MR/POSTOP.ANE Normal [facility] MR/XSKYNGUQ3fz 07-27-2024 MR/POSTOPAN2 Normal [facility] High density lipoprotein (HD L) measurementOrdered By: Simeon Gifford on 07-26-2024 Cholesterol in HDL [Mass/Vol] 43 mg/dL >40 [facility] Comment on above: The drugs N-Acetylcy steine and Metamizole may falsely depress this assay. Reference Range HDL <40 mg/dL Low HDL Cholesterol HDL >or= 60 mg/dL High HDL Cholesterol Lipid Profileon 07-26-2024 Cholesterol [Mass/Vol] 115 mg/dL Normal 200 [facility] Comment on above: Result Comment: <200 mg/dL Desirable 200-240 mg/dL Borderline >240 mg/dL High Risk Performed By: #### L 501.9520, L500.4100 ####[facility] [address] [place], [address] Cholesterol in HDL [Mass/Vol] 43 mg/dL Normal [facility] Comment on above: Result Comment: The drugs N-Acetylcysteine and Metamizole may falselydepress this assay. Reference Range HDL <40 mg/dL Low HDL Cholesterol HDL >or= 60 mg/dL High HDL Cholesterol Performed By: #### L 501.9520, L500.4100 ####[facility] [address] [place], [address] Cholesterol in LDL [Mass/Vol] 48 mg/dL Normal 0-130 [facility] Comment on above: Performed By: #### L 501.9520, L500.4100 ####[facility] [address] [place], [address] Cholesterol in VLDL [Mass/Vol] 24 mg/dL Normal 5-40 [facility] Comment on above: Performed By: #### L 501.9520, L500.4100 ####[facility] [address] [place], [address] Triglyceride [Mass/Vol] 118 mg/dL Normal [facility] Comment on above: Result Comment: The drugs N-Acetylcysteine and Metamizole may falselydepress this assay.Serum Triglycerides Reference Interval Normal <150 mg/dL Borderline high 150 - 199 mg/dL High 200 - 499 mg/dL Very High > or = 500 mg/dL Performed By: #### L 501.9520, L500.4100 ####[facility] [address] [place], [address] Low density lipoprotein (LDL ) cholesterol measurementOrdered By: Simeon Gifford on 07-26-2024 Cholesterol in LDL [Mass/Vol] 48 mg/dL 0-130 [facility] MR/CON.PCM.GIon 07-26-2024 MR/CON.PCM.GI Normal [facility] Serum or plasma cholesterol measurement (mass/volume)Ordered By: Simeon Gifford on 07-26-2024 Cholesterol [Mass/Vol] 115 mg/dL <200 [facility] Comment on above: <200 mg/dL Desirable 200-240 mg/dL Borderline >240 mg/dL High Risk Serum or plasma thyroid stim ulating hormone (TSH) measurement (units/volume)Ordered By: Simeon Gifford on 07-26-2024 TSH Qn 7.780 uIU/mL High 0.358-3.740 [facility] TSH QnOrdered By: Simeon Gifford o n 07-26-2024 Thyroid Stimulating Hormone (TSH) 7.780 uIU/mL High 0.358-3.740 [facility] Thyroid Stim Hormone (TSH)on 07-26-2024 TSH 7.780 uIU/mL High 0.358-3.740 [facility] Comment on above: Performed By: #### L 501.9520, L500.4100 ####[facility] [address] [place], [place], [id number] Triglycerides measurementOrd ered By: Simeon Gifford on 07-26-2024 Triglyceride [Mass/Vol] 118 mg/dL <199 [facility] Comment on above: The drugs N-Acetylcy steine and Metamizole may falsely depress this assay.Serum Triglycerides Reference Interval Normal <150 mg/dL Borderline high 150 - 199 mg/dL High 200 - 499 mg/dL Very High > or = 500 mg/dL Very low density lipoprotein (VLDL) cholesterol measurementOrdered By: Simeon Gifford on 07-26-2024 Very low density lipoprotein (VLDL) cholesterol measurement 24 mg/dL 5-40 [facility] VLDL Cholesterol 24 mg/dL 5-40 [facility] Basic Metabolic Profile (BMP )on 07-23-2024 BUN/CRE 22.1 RATIO High 10-20 [facility] Comment on above: Performed By: #### L 100.0100, L500.2500 ####[facility] [address] [place], [address] CA,Total 8.6 mg/dL Normal 8.5-10.1 [facility] Comment on above: Performed By: #### L 100.0100, L500.2500 ####[facility] [address] [place], [address] Chloride [Moles/Vol] 106 mmol/L Normal 98-107 [facility] Comment on above: Performed By: #### L 100.0100, L500.2500 ####[facility] [address] [place], [address] CO2 [Moles/Vol] 27.0 mmol/L Normal 21.0-32.0 [facility] Comment on above: Performed By: #### L 100.0100, L500.2500 ####[facility] [address] [place], [address] Creatinine [Mass/Vol] 1.04 mg/dL Normal 0.70-1.30 [facility] Comment on above: Result Comment: The validity of the calculated GFR GFRAA in patients over70 years has not been determined. Clinical correlation isessential. Performed By: #### L 100.0100, L500.2500 ####[facility] [address] [place], [address] ECRCL 72.19 ml/min Normal [facility] Comment on above: Performed By: #### L 100.0100, L500.2500 ####[facility] [address] [place], [address] EST GFR - AA 87 mL/min Normal >60 [facility] Comment on above: Result Comment: Afri can [place] GFR Calc Performed By: #### L 100.0100, L500.2500 ####[facility] [address] [place], [address] GAP 6 Normal 5-15 [facility] Comment on above: Performed By: #### L 100.0100, L500.2500 ####[facility] [address] [place], [address] GFR/1.73 sq M.predicted among non-blacks MDRD (S/P/Bld) [Vol rate/Area] 72 mL/min/{1.73_m2} Normal >60 [facility] Comment on above: Result Comment: Non- GFR Calc Performed By: #### L 100.0100, L500.2500 ####[facility] [address] [place], [address] Glucose [Mass/Vol] 121 mg/dL High 74-106 [facility] Comment on above: Result Comment: Fast ing Glucose result from 100 to 125 mg/dLsuggests IMPAIRED HOMEOSTASIS per A.D.A. criteria. Performed By: #### L 100.0100, L500.2500 ####[facility] [address] [place], [address] Potassium [Moles/Vol] 3.7 mmol/L Normal 3.5-5.1 [facility] Comment on above: Performed By: #### L 100.0100, L500.2500 ####[facility] [address] [place], [address] Sodium [Moles/Vol] 139 mmol/L Normal 136-145 [facility] Comment on above: Performed By: #### L 100.0100, L500.2500 ####[facility] [address] [place], [address] Urea nitrogen [Mass/Vol] 23 mg/dL High 7-18 [facility] Comment on above: Performed By: #### L 100.0100, L500.2500 ####[facility] [address] [place], [address] CBC W/Diff, Automatedon -3 Absolute Lymph 1.45 X10 3/uL Normal 0.83-4.51 [facility] Comment on above: Performed By: #### L 100.0100, L500.2500 ####[facility] [address] [place], [address] Absolute Neut 5.9 X10 3/uL Normal 2.0-7.7 [facility] Comment on above: Performed By: #### L 100.0100, L500.2500 ####[facility] [address] [place], [address] Basophils/100 WBC (Bld) 1.1 % High 0-1 [facility] Comment on above: Performed By: #### L 100.0100, L500.2500 ####[facility] [address] [place], [address] Eosinophils/100 WBC (Bld) 8.2 % High 0-5 [facility] Comment on above: Performed By: #### L 100.0100, L500.2500 ####[facility] [address] [place], [address] Erythrocyte distribution width (RBC) [Ratio] 17.8 % High 11.6-14.6 [facility] Comment on above: Performed By: #### L 100.0100, L500.2500 ####[facility] [address] [place], [address] Hematocrit (Bld) [Volume fraction] 42.9 % Normal 40-54 [facility] Comment on above: Performed By: #### L 100.0100, L500.2500 ####[facility] [address] [place], [address] Hemoglobin (Bld) [Mass/Vol] 13.1 g/dL Normal 13.0-16.5 [facility] Comment on above: Performed By: #### L 100.0100, L500.2500 ####[facility] [address] [place], [address] IG% 0.500 Normal 0.0-0.9 [facility] Comment on above: Result Comment: IG% - Immature Granulocytes (promyelocytes, myelocytes andmetamyelocytes) > 1% indicates that a LEFT SHIFT is Present. Performed By: #### L 100.0100, L500.2500 ####[facility] [address] [place], [address] Lymphocytes/100 WBC (Bld) 16.4 % Low 19-41 [facility] Comment on above: Performed By: #### L 100.0100, L500.2500 ####[facility] [address] [place], [address] MCH (RBC) [Entitic mass] 26.8 pg Low 27.0-32.0 [facility] Comment on above: Performed By: #### L 100.0100, L500.2500 ####[facility] [address] [place], [address] MCHC (RBC) [Mass/Vol] 30.5 g/dL Low 32-36 [facility] Comment on above: Performed By: #### L 100.0100, L500.2500 ####[facility] [address] [place], [address] MCV (RBC) [Entitic vol] 87.7 fL Normal 80-94 [facility] Comment on above: Performed By: #### L 100.0100, L500.2500 ####[facility] [address] [place], [address] Monocytes/100 WBC (Bld) 7.4 % Normal 0-10 [facility] Comment on above: Performed By: #### L 100.0100, L500.2500 ####[facility] [address] [place], [address] Neutrophils/100 WBC (Bld) 66.4 % Normal 47-70 [facility] Comment on above: Performed By: #### L 100.0100, L500.2500 ####[facility] [address] [place], [address] Nucleated RBC (Bld) [#/Vol] 0 10*3/uL Normal 0-5 [facility] Comment on above: Performed By: #### L 100.0100, L500.2500 ####[facility] [address] [place], [address] Platelet mean volume (Bld) [Entitic vol] 10.0 fL Normal 6.2-12.0 [facility] Comment on above: Performed By: #### L 100.0100, L500.2500 ####[facility] [address] [place], [address] Platelets (Bld) [#/Vol] 164 10*3/uL Normal 150-450 [facility] Comment on above: Performed By: #### L 100.0100, L500.2500 ####[facility] [address] [place], [address] RBC (Bld) [#/Vol] 4.89 10*6/uL Normal 4.6-6.2 [facility] Comment on above: Performed By: #### L 100.0100, L500.2500 ####[facility] [address] [place], [address] RDW SD 56.9 fl High 35.1-43.9 [facility] Comment on above: Performed By: #### L 100.0100, L500.2500 ####[facility] [address] [place], [address] WBC (Bld) [#/Vol] 8.9 10*3/uL Normal 4.4-11.0 [facility] Comment on above: Performed By: #### L 100.0100, L500.2500 ####[facility] [address] [place], [address] Discharge Instructionon 06-25 Discharge Instruction Normal [facility] Absolute lymphocyte countOrd ered By: Beni Boone on 07-20-2024 Lymphocytes Auto (Unsp spec) [#/Vol] 1.00 10*3/uL 0.83-4.51 [facility] Absolute neutrophil countOrd ered By: Beni Mely on 07-20-2024 Neutrophils (Bld) [#/Vol] 5.9 10*3/uL 2.0-7.7 [facility] Automated lymphocyte count a s percentage of total leukocytesOrdered By: Haines Mely on 07-20-2024 Lymphocytes/100 WBC Auto (Unsp spec) 12.9 % Low 19-41 [facility] Basic Metabolic Profile (BMP )on 07-20-2024 BUN/CRE 18.3 RATIO Normal 10-20 [facility] Comment on above: Performed By: #### L 500.2500, L100.0100 ####[facility] [address] [place], [address] CA,Total 8.7 mg/dL Normal 8.5-10.1 [facility] Comment on above: Performed By: #### L 500.2500, L100.0100 ####[facility] [address] [place], [address] Chloride [Moles/Vol] 107 mmol/L Normal 98-107 [facility] Comment on above: Performed By: #### L 500.2500, L100.0100 ####[facility] [address] [place], [address] CO2 [Moles/Vol] 28.0 mmol/L Normal 21.0-32.0 [facility] Comment on above: Performed By: #### L 500.2500, L100.0100 ####[facility] [address] [place], [address] Creatinine [Mass/Vol] 1.04 mg/dL Normal 0.70-1.30 [facility] Comment on above: Result Comment: The validity of the calculated GFR GFRAA in patients over70 years has not been determined. Clinical correlation isessential. Performed By: #### L 500.2500, L100.0100 ####[facility] [address] [place], [address] ECRCL 72.32 ml/min Normal [facility] Comment on above: Performed By: #### L 500.2500, L100.0100 ####[facility] [address] [place], [address] EST GFR - AA 87 mL/min Normal >60 [facility] Comment on above: Result Comment: Afri can [place] GFR Calc Performed By: #### L 500.2500, L100.0100 ####[facility] [address] [place], [address] GAP 5 Normal 5-15 [facility] Comment on above: Performed By: #### L 500.2500, L100.0100 ####[facility] [address] [place], [address] GFR/1.73 sq M.predicted among non-blacks MDRD (S/P/Bld) [Vol rate/Area] 72 mL/min/{1.73_m2} Normal >60 [facility] Comment on above: Result Comment: Non- GFR Calc Performed By: #### L 500.2500, L100.0100 ####[facility] [address] [place], [address] Glucose [Mass/Vol] 128 mg/dL High 74-106 [facility] Comment on above: Result Comment: Fast ing Glucose result greater than or equal to 126 mg/dLsuggests DIABETES MELLITUS per A.D.A. criteria. Performed By: #### L 500.2500, L100.0100 ####[facility] [address] [place], [address] Potassium [Moles/Vol] 4.1 mmol/L Normal 3.5-5.1 [facility] Comment on above: Performed By: #### L 500.2500, L100.0100 ####[facility] [address] [place], [address] Sodium [Moles/Vol] 140 mmol/L Normal 136-145 [facility] Comment on above: Performed By: #### L 500.2500, L100.0100 ####[facility] [address] [place], [address] Urea nitrogen [Mass/Vol] 19 mg/dL High 7-18 [facility] Comment on above: Performed By: #### L 500.2500, L100.0100 ####[facility] [address] [place], [address] Basophil percentageOrdered B y: Haines Mely on 07-20-2024 Basophils/100 WBC (Bld) 1.0 % 0-1 [facility] Blood urea nitrogen (BUN)/cr eatinine ratioOrdered By: Beni Mely on 07-20-2024 Urea nitrogen/Creatinine [Mass ratio] 18.3 mg/mg 10- [facility] CBC W/Diff, Automatedon 06-24 Absolute Lymph 1.00 X10 3/uL Normal 0.83-4.51 [facility] Comment on above: Performed By: #### L 500.2500, L100.0100 ####[facility] [address] [place], [address] Absolute Neut 5.9 X10 3/uL Normal 2.0-7.7 [facility] Comment on above: Performed By: #### L 500.2500, L100.0100 ####[facility] [address] [place], [address] Basophils/100 WBC (Bld) 1.0 % Normal 0-1 [facility] Comment on above: Performed By: #### L 500.2500, L100.0100 ####[facility] [address] [place], [address] Eosinophils/100 WBC (Bld) 3.5 % Normal 0-5 [facility] Comment on above: Performed By: #### L 500.2500, L100.0100 ####[facility] [address] [place], [address] Erythrocyte distribution width (RBC) [Ratio] 17.8 % High 11.6-14.6 [facility] Comment on above: Performed By: #### L 500.2500, L100.0100 ####[facility] [address] [place], [address] Hematocrit (Bld) [Volume fraction] 42.2 % Normal 40-54 [facility] Comment on above: Performed By: #### L 500.2500, L100.0100 ####[facility] [address] [place], [address] Hemoglobin (Bld) [Mass/Vol] 13.0 g/dL Normal 13.0-16.5 [facility] Comment on above: Performed By: #### L 500.2500, L100.0100 ####[facility] [address] [place], [address] IG% 0.400 Normal 0.0-0.9 [facility] Comment on above: Result Comment: IG% - Immature Granulocytes (promyelocytes, myelocytes andmetamyelocytes) > 1% indicates that a LEFT SHIFT is Present. Performed By: #### L 500.2500, L100.0100 ####[facility] [address] [place], [address] Lymphocytes/100 WBC (Bld) 12.9 % Low 19-41 [facility] Comment on above: Performed By: #### L 500.2500, L100.0100 ####[facility] [address] [place], [address] MCH (RBC) [Entitic mass] 27.3 pg Normal 27.0-32.0 [facility] Comment on above: Performed By: #### L 500.2500, L100.0100 ####[facility] [address] [place], [address] MCHC (RBC) [Mass/Vol] 30.8 g/dL Low 32-36 [facility] Comment on above: Performed By: #### L 500.2500, L100.0100 ####[facility] [address] [place], [address] MCV (RBC) [Entitic vol] 88.5 fL Normal 80-94 [facility] Comment on above: Performed By: #### L 500.2500, L100.0100 ####[facility] [address] [place], [address] Monocytes/100 WBC (Bld) 6.3 % Normal 0-10 [facility] Comment on above: Performed By: #### L 500.2500, L100.0100 ####[facility] [address] [place], [address] Neutrophils/100 WBC (Bld) 75.9 % High 47-70 [facility] Comment on above: Performed By: #### L 500.2500, L100.0100 ####[facility] [address] [place], [address] Nucleated RBC (Bld) [#/Vol] 0 10*3/uL Normal 0-5 [facility] Comment on above: Performed By: #### L 500.2500, L100.0100 ####[facility] [address] [place], [address] Platelet mean volume (Bld) [Entitic vol] 10.5 fL Normal 6.2-12.0 [facility] Comment on above: Performed By: #### L 500.2500, L100.0100 ####[facility] [address] [place], [address] Platelets (Bld) [#/Vol] 167 10*3/uL Normal 150-450 [facility] Comment on above: Performed By: #### L 500.2500, L100.0100 ####[facility] [address] [place], [address] RBC (Bld) [#/Vol] 4.77 10*6/uL Normal 4.6-6.2 [facility] Comment on above: Performed By: #### L 500.2500, L100.0100 ####[facility] [address] [place], [address] RDW SD 56.3 fl High 35.1-43.9 [facility] Comment on above: Performed By: #### L 500.2500, L100.0100 ####[facility] [address] [place], [address] WBC (Bld) [#/Vol] 7.7 10*3/uL Normal 4.4-11.0 [facility] Comment on above: Performed By: #### L 500.2500, L100.0100 ####[facility] [address] [place], [address] Carbon dioxide measurementOr dered By: Beni Boone on 07-20-2024 CO2 [Moles/Vol] 28.0 mmol/L 21.0-32.0 [facility] Chest Insp/Exp 2 Viewon 06-24 Chest Insp/Exp 2 View Normal [facility] Chloride measurementOrdered By: Beni Boone on 07-20-2024 Chloride [Moles/Vol] 107 mmol/L 98-107 [facility] Eosinophil percentageOrdered By: Beni Mely on 07-20-2024 Eosinophils/100 WBC (Bld) 3.5 % 0-5 [facility] Erythrocyte distribution wid th ratioOrdered By: Haines Mely on 07-20-2024 Erythrocyte distribution width (RBC) [Ratio] 17.8 % High 11.6-14.6 [facility] Erythrocyte distribution wid th standard deviationOrdered By: Haines Mely on 07-20-2024 Erythrocyte distribution width (RBC) [Entitic vol] 56.3 fL High 35.1-43.9 [facility] Erythrocyte distribution width (RBC) [Ratio] 56.3 fl High 35.1-43.9 [facility] Estimated glomerular filtrat ion rate (GFR) AmericanOrdered By: Beni Boone on 07-20-2024 Estimated GFR (MDRD) Amer 87 mL/min >60 [facility] Comment on above: GFR Calc Estimation of creatinine michael aranceOrdered By: Beni Boone on 07-20-2024 Estimated Creatinine Clearance Calc 72.32 ml/min [facility] Glomerular filtration rate ( GFR) estimationOrdered By: Beni Mely on 07-20-2024 Estimated GFR (MDRD) Non-Af Amer 72 mL/min >60 [facility] Comment on above: Non- GFR Calc GFR/1.73 sq M.predicted among non-blacks MDRD (S/P/Bld) [Vol rate/Area] 72 mL/min/{1.73_m2} >60 [facility] Comment on above: Non- GFR Calc Glucose measurementOrdered B y: Beni Boone on 07-20-2024 Glucose [Mass/Vol] 128 mg/dL High 74-106 [facility] Comment on above: Fasting Glucose resu lt greater than or equal to 126 mg/dL suggests DIABETES MELLITUS per A.D.A. criteria. Hematocrit Auto (Bld) [Volum e fraction]Ordered By: Beni Mely on 07-20-2024 Hematocrit (Bld) [Volume fraction] 42.2 % 40-54 [facility] Hemoglobin measurementOrdere d By: Beni Boone on 07-20-2024 Hemoglobin (Bld) [Mass/Vol] 13.0 g/dL 13.0-16.5 [facility] Immature granulocytes/100 WB C Auto (Bld)Ordered By: Beni Boone on 07-20-2024 Immature granulocytes/100 WBC (Bld) 0.400 % 0.0-0.9 [facility] Comment on above: IG% - Immature Granu locytes (promyelocytes, myelocytes and metamyelocytes) > 1% indicates that a LEFT SHIFT is Present. Lymphocytes Auto (Unsp spec) [#/Vol]Ordered By: Hainesrichmond Boone on 07-20-2024 Lymphocytes (Bld) [#/Vol] 1.00 10*3/uL 0.83-4.51 [facility] Lymphocytes/100 WBC Auto (Un sp spec)Ordered By: Beni Mely on 07-20-2024 Lymphocytes/100 WBC (Bld) 12.9 % Low 19-41 [facility] MCV (mean corpuscular volume ) determinationOrdered By: Haines Mely on 07-20-2024 MCV (RBC) [Entitic vol] 88.5 fL 80-94 [facility] Mean corpuscular hemoglobin (MCH) determinationOrdered By: Beni Mely on 07-20-2024 MCH (RBC) [Entitic mass] 27.3 pg 27.0-32.0 [facility] Mean corpuscular hemoglobin concentration (MCHC) determinationOrdered By: Hainesvicente Boone on 07-20-2024 MCHC (RBC) [Mass/Vol] 30.8 g/dL Low 32-36 [facility] Mean platelet volume determi nationOrdered By: Hainesvicente Boone on 07-20-2024 Platelet mean volume (Bld) [Entitic vol] 10.5 fL 6.2-12.0 [facility] Monocyte percentageOrdered B y: Haines Mely on 07-20-2024 Monocytes/100 WBC (Bld) 6.3 % 0-10 [facility] Neutrophil percentageOrdered By: Benivicente Boone on 07-20-2024 Neutrophils/100 WBC (Bld) 75.9 % High 47-70 [facility] Nucleated red blood cell per centageOrdered By: Haines Mely on 07-20-2024 Nucleated RBC/100 WBC (Bld) [Ratio] 0 % 0-5 [facility] Pacemaker Checkon 07-20-2024 Pacemaker Check Normal [facility] Platelet countOrdered By: Cy vicente Boone on 07-20-2024 Platelets (Bld) [#/Vol] 167 10*3/uL 150-450 [facility] Potassium measurementOrdered By: Beni Boone on 07-20-2024 Potassium [Moles/Vol] 4.1 mmol/L 3.5-5.1 [facility] RBC Auto (Bld) [#/Vol]Ordere d By: Beni Boone on 07-20-2024 RBC (Bld) [#/Vol] 4.77 10*6/uL 4.6-6.2 [facility] Serum anion gap measurementO rdered By: Beni Boone on 07-20-2024 Anion gap [Moles/Vol] 5 mmol/L 5-15 [facility] Serum or plasma calcium tristan urement (mass/volume)Ordered By: Beni Boone on 07-20-2024 Calcium [Mass/Vol] 8.7 mg/dL 8.5-10.1 [facility] Serum or plasma creatinine m easurement (mass/volume)Ordered By: Beni Boone on 07-20-2024 Creatinine [Mass/Vol] 1.04 mg/dL 0.70-1.30 [facility] Comment on above: The validity of the calculated GFR & GFRAA in patients over 70 years has not been determined. Clinical correlation is essential. Serum or plasma urea nitroge n measurement (mass/volume)Ordered By: Beni Boone on 07-20-2024 Urea nitrogen [Mass/Vol] 19 mg/dL High 7-18 [facility] Sodium levelOrdered By: Ousmane Boone on 07-20-2024 Sodium [Moles/Vol] 140 mmol/L 136-145 [facility] White blood cell (WBC) count Ordered By: Beni Boone on 07-20-2024 WBC (Bld) [#/Vol] 7.7 10*3/uL 4.4-11.0 [facility] TXT:Device Implant / Explant on 07-19-2024 TXT:Device Implant / Explant Normal [facility] CNOVon 07-14-2024 CNOV Normal [facility] CNPNon 07-02-2024 CNPN Normal [facility] CNOVon 07-01-2024 CNOV Normal [facility] CNPNon 07-01-2024 CNPN Normal [facility] Urate SerPl-mCncon Urate [Mass/Vol] 6.3 mg/dL Normal 4.0-8.1 Alexis barajas [facility] Comment on above: Order Comment: Speci men Type: BLOOD SPECIMENOrdering Facility: [facility] Address: [address] [facility] [facility] [place] [address] Performed By: #### 3 084-1 ####[facility] LABCLIA [id number] [address] [id number] [id number] [place] XR FOOT 3V AP/LAT/OBL LTon 0 07-01-2024 XR FOOT 3V AP/LAT/OBL LT Normal [facility] XR Foot - left AP and Latera l and obliqueon 07-01-2024 IMPRESSION: No acute osseous abnormalities are identified. Soft tissue swelling. Sterile Process Coordinator: JAVY Transcribe Date/Time: Jul 01 2024 6:29P Dictated by : JESSICA MELGAR MD This examination was interpreted and the report reviewed and electronically signed by: JESSICA MELGAR MD on Jul 01 2024 6:32PM [facility] DIVISION OF RADIOLOGY * * *Final Report* * * DATE OF EXAM: Jul 01 2024 5:45PM WOX [id number] - XR FOOT 3V AP/LAT/OBL LT / PROCEDURE REASON: Foot pain, left * * * * Physician Interpretation * * * * LEFT FOOT X-RAY SERIES HISTORY: Foot pain, left TECHNIQUE: AP, lateral and oblique views. COMPARISON: None available. RESULT: No fracture, dislocation or destructive changes. Moderate to marked joint space narrowing is noted in the DIP joints of the second through fifth toes. Osteopenia is noted. There is soft tissue swelling noted in the forefoot region. No radiopaque foreign body is identified. Calcaneal spurring is noted. DIVISION OF RADIOLOGY Provider, [facility] - 07/01/2024 * * *Final Report* * * DATE OF EXAM: Jul 01 2024 5:45PM WOX 5336 - XR FOOT 3V AP/LAT/OBL LT / PROCEDURE REASON: Foot pain, left * * * * Physician Interpretation * * * * LEFT FOOT X-RAY SERIES HISTORY: Foot pain, left TECHNIQUE: AP, lateral and oblique views. COMPARISON: None available. RESULT: No fracture, dislocation or destructive changes. Moderate to marked joint space narrowing is noted in the DIP joints of the second through fifth toes. Osteopenia is noted. There is soft tissue swelling noted in the forefoot region. No radiopaque foreign body is identified. Calcaneal spurring is noted. IMPRESSION IMPRESSION: No acute osseous abnormalities are identified. Soft tissue swelling. Sterile Process Coordinator: JAVY Transcribe Date/Time: Jul 01 2024 6:29P Dictated by : JESSICA MELGAR MD This examination was interpreted and the report reviewed and electronically signed by: JESSICA MELGAR MD on Jul 01 2024 6:32PM EST [facility] Radiology Study observation (narrative) [facility] XR Foot - left AP and Latera l and obliqueOrdered By: [facility] Provider on 07-01-2024 [facility] Automated blood erythrocyte countOrdered By: Malika Montesinos on 06-28-2024 RBC (Bld) [#/Vol] 4.74 10*6/uL Normal 4.6-6.2 [facility] Comment on above: Order Comment: Comme nts: For Micra VR pacemaker implant Performed By: #### L 100.0500, L400.0001, L300.3900, L500.2500 ####[facility] [address] [place], [place], [id number] Automated blood hematocrit ( percentage)Ordered By: Malika Montesinos on 06-28-2024 Hematocrit (Bld) [Volume fraction] 42.3 % Normal 40-54 [facility] Comment on above: Order Comment: Comme nts: For Micra VR pacemaker implant Performed By: #### L 100.0500, L400.0001, L300.3900, L500.2500 ####[facility] [address] [place], [place], [address] Basic Metabolic Profile (BMP )on 06-28-2024 BUN/CRE 22.9 RATIO High 10-20 [facility] Comment on above: Order Comment: For P PM implant Performed By: #### L 100.0500, L400.0001, L300.3900, L500.2500 ####[facility] [address] [place], [address] CA,Total 9.1 mg/dL Normal 8.5-10.1 [facility] Comment on above: Order Comment: For P PM implant Performed By: #### L 100.0500, L400.0001, L300.3900, L500.2500 ####[facility] [address] [place], [address] EST GFR - AA 96 mL/min Normal >60 [facility] Comment on above: Order Comment: For P PM implant Result Comment: Afri can [place] GFR Calc Performed By: #### L 100.0500, L400.0001, L300.3900, L500.2500 ####[facility] [address] [place], [address] GAP 1 Low 5-15 [facility] Comment on above: Order Comment: For P PM implant Performed By: #### L 100.0500, L400.0001, L300.3900, L500.2500 ####[facility] [address] [place], [address] GFR/1.73 sq M.predicted among non-blacks MDRD (S/P/Bld) [Vol rate/Area] 79 mL/min/{1.73_m2} Normal >60 [facility] Comment on above: Order Comment: For P PM implant Result Comment: Non- GFR Calc Performed By: #### L 100.0500, L400.0001, L300.3900, L500.2500 ####[facility] [address] [place], [address] Bilirubin Test strip Ql (U)O rdered By: Malika Montesinos on 06-28-2024 Bilirubin Ql (U) Negative Negative [facility] Blood urea nitrogen (BUN)/cr eatinine ratioOrdered By: Malika Montesinos on 06-28-2024 Urea nitrogen/Creatinine [Mass ratio] 22.9 mg/mg High 10-20 [facility] CBC-Complete Blood Cnt No Di ffon 06-28-2024 RDW SD 54.3 fl High 35.1-43.9 [facility] Comment on above: Order Comment: Comme nts: For Micra VR pacemaker implant Performed By: #### L 100.0500, L400.0001, L300.3900, L500.2500 ####[facility] [address] [place], [place], [address] Carbon dioxide measurementOr dered By: Malika Montesinos on 06-28-2024 CO2 [Moles/Vol] 34.0 mmol/L High 21.0-32.0 [facility] Comment on above: Order Comment: For P PM implant Performed By: #### L 100.0500, L400.0001, L300.3900, L500.2500 ####[facility] [address] [place], [place], [address] Chest PA and Lateralon 06-28 Chest PA and Lateral Normal [facility] Chloride measurementOrdered By: Malika Montesinos on 06-28-2024 Chloride [Moles/Vol] 106 mmol/L Normal 98-107 [facility] Comment on above: Order Comment: For P PM implant Performed By: #### L 100.0500, L400.0001, L300.3900, L500.2500 ####[facility] [address] [place], [place], [address] Epithelial cells.squamous LM Ql (Urine sed)Ordered By: Malika Montesinos on 06-28-2024 Epithelial cells.squamous LM.HPF (Urine sed) [#/Area] 0 /[HPF] 0-5 [facility] Erythrocyte distribution wid th ratioOrdered By: Malika Montesinos on 06-28-2024 Erythrocyte distribution width (RBC) [Ratio] 16.9 % High 11.6-14.6 [facility] Comment on above: Order Comment: Comme nts: For Micra VR pacemaker implant Performed By: #### L 100.0500, L400.0001, L300.3900, L500.2500 ####[facility] [address] [place], [place], [id number] Erythrocyte distribution wid th standard deviationOrdered By: Malika Montesinos on 06-28-2024 Erythrocyte distribution width (RBC) [Entitic vol] 54.3 fL High 35.1-43.9 [facility] Estimated glomerular filtrat ion rate (GFR) AmericanOrdered By: Malika Montesinos on 06-28-2024 Estimated GFR (MDRD) Amer 96 mL/min >60 [facility] Comment on above: GFR Calc Glomerular filtration rate ( GFR) estimationOrdered By: Malika Montesinos on 06-28-2024 Estimated GFR (MDRD) Non-Af Amer 79 mL/min >60 [facility] Comment on above: Non- GFR Calc Glucose Ql (U)Ordered By: Nela Montesinos on 06-28-2024 Urine Glucose (UA) Normal mg/dl Normal [facility] Glucose measurementOrdered B y: Malika Montesinos on 06-28-2024 Glucose [Mass/Vol] 117 mg/dL High 74-106 [facility] Comment on above: Fasting Glucose resu lt from 100 to 125 mg/dL suggests IMPAIRED HOMEOSTASIS per A.D.A. criteria. Order Comment: For P PM implant Result Comment: Fast ing Glucose result from 100 to 125 mg/dLsuggests IMPAIRED HOMEOSTASIS per A.D.A. criteria. Performed By: #### L 100.0500, L400.0001, L300.3900, L500.2500 ####[facility] [address] [place], [place], [address] Hemoglobin measurementOrdere d By: Malika Montesinos on 06-28-2024 Hemoglobin (Bld) [Mass/Vol] 13.0 g/dL Normal 13.0-16.5 [facility] Comment on above: Order Comment: Comme nts: For Micra VR pacemaker implant Performed By: #### L 100.0500, L400.0001, L300.3900, L500.2500 ####[facility] [address] [place], [address] International normalized rat io (INR) calculationOrdered By: Malika Montesinos on 06-28-2024 INR Coag (Bld) [Relative time] 1.3 {INR} [facility] Ketones Test strip Ql (U)Ord ered By: Malika Montesinos on 06-28-2024 Ketones Ql (U) Negative Negative [facility] MCV (mean corpuscular volume ) determinationOrdered By: Malika Montesinos on 06-28-2024 MCV (RBC) [Entitic vol] 89.2 fL Normal 80-94 [facility] Comment on above: Order Comment: Comme nts: For Micra VR pacemaker implant Performed By: #### L 100.0500, L400.0001, L300.3900, L500.2500 ####[facility] [address] [place], [place], [id number] Mean corpuscular hemoglobin (MCH) determinationOrdered By: Malika Montesinos on 06-28-2024 MCH (RBC) [Entitic mass] 27.4 pg Normal 27.0-32.0 [facility] Comment on above: Order Comment: Comme nts: For Micra VR pacemaker implant Performed By: #### L 100.0500, L400.0001, L300.3900, L500.2500 ####[facility] [address] [place], [place], [id number] Mean corpuscular hemoglobin concentration (MCHC) determinationOrdered By: Malika Montesinos on 06-28-2024 MCHC (RBC) [Mass/Vol] 30.7 g/dL Low 32-36 [facility] Comment on above: Order Comment: Comme nts: For Micra VR pacemaker implant Performed By: #### L 100.0500, L400.0001, L300.3900, L500.2500 ####[facility] [address] [place], [place], [id number] Mean platelet volume determi nationOrdered By: Malika Montesinos on 06-28-2024 Platelet mean volume (Bld) [Entitic vol] 10.3 fL Normal 6.2-12.0 [facility] Comment on above: Order Comment: Comme nts: For Micra VR pacemaker implant Performed By: #### L 100.0500, L400.0001, L300.3900, L500.2500 ####[facility] [address] [place], [place], [phone] Microscopic analysis of urin e for red blood cells (RBC)Ordered By: Malika Montesinos on 06-28-2024 Urine RBC 0 SEEN /hpf 0-5 [facility] Mucus LM Ql (Urine sed)Order ed By: Malika Montesinos on 06-28-2024 Mucus Ql (Urine sed) 0 SEEN /hpf [facility] Nitrite Test strip Ql (U)Ord ered By: Malika Montesinos on 06-28-2024 Nitrite Ql (U) Negative Negative [facility] Pacemaker Checkon 06-28-2024 Pacemaker Check Normal [facility] Platelet countOrdered By: Nela Montesinos on 06-28-2024 Platelets (Bld) [#/Vol] 190 10*3/uL Normal 150-450 [facility] Comment on above: Order Comment: Comme nts: For Micra VR pacemaker implant Performed By: #### L 100.0500, L400.0001, L300.3900, L500.2500 ####[facility] [address] [place], [address] Potassium measurementOrdered By: Malika Montesinos on 06-28-2024 Potassium [Moles/Vol] 4.2 mmol/L Normal 3.5-5.1 [facility] Comment on above: Order Comment: For P PM implant Performed By: #### L 100.0500, L400.0001, L300.3900, L500.2500 ####[facility] [address] [place], [place], [phone] Protein Test strip Ql (U)Ord ered By: Malika Montesinos on 06-28-2024 Protein Ql (U) 15 mg/dl High Negative [facility] Prothrombin Time w/INRon INR Coag (PPP) [Relative time] 1.3 {INR} Normal [facility] Comment on above: Order Comment: Comme nts: For PPM implant Performed By: #### L 100.0500, L400.0001, L300.3900, L500.2500 ####[facility] [address] [place], [address] Prothrombin timeOrdered By: Malika Montesinos on 06-28-2024 PT Coag (PPP) [Time] 16.7 s High 11.7-14.9 [facility] Comment on above: Order Comment: Comme nts: For PPM implant Performed By: #### L 100.0500, L400.0001, L300.3900, L500.2500 ####[facility] [address] [facility] [address] [place], [place], [phone] Serum anion gap measurementO rdered By: Malika Montesinos on 06-28-2024 Anion gap [Moles/Vol] 1 mmol/L Low 5-15 [facility] Serum or plasma calcium tristan urement (mass/volume)Ordered By: Malika Montesinos on 06-28-2024 Calcium [Mass/Vol] 9.1 mg/dL 8.5-10.1 [facility] Serum or plasma creatinine m easurement (mass/volume)Ordered By: Malika Montesinos on 06-28-2024 Creatinine [Mass/Vol] 0.96 mg/dL Normal 0.70-1.30 [facility] Comment on above: The validity of the calculated GFR & GFRAA in patients over 70 years has not been determined. Clinical correlation is essential. Order Comment: For P PM implant Result Comment: The validity of the calculated GFR GFRAA in patients over70 years has not been determined. Clinical correlation isessential. Performed By: #### L 100.0500, L400.0001, L300.3900, L500.2500 ####[facility] [address] [place], [place], [phone] Serum or plasma urea nitroge n measurement (mass/volume)Ordered By: Malika Montesinos on 06-28-2024 Urea nitrogen [Mass/Vol] 22 mg/dL High 7-18 [facility] Comment on above: Order Comment: For P PM implant Performed By: #### L 100.0500, L400.0001, L300.3900, L500.2500 ####[facility] [address] [place], [address] Sodium levelOrdered By: Carlo Montesinos on 06-28-2024 Sodium [Moles/Vol] 141 mmol/L Normal 136-145 [facility] Comment on above: Order Comment: For P PM implant Performed By: #### L 100.0500, L400.0001, L300.3900, L500.2500 ####[facility] [address] [place], [address] Transitional cells LM Ql (Ur ine sed)Ordered By: Malika Montesinos on 06-28-2024 Urine Transitional Epithelial Cells 0-5 SEEN /hpf 0-5 [facility] Urinalysis, Completeon 06-28 EPI,SQUAMOUS 0-5 SEEN Normal 0-5 [facility] Comment on above: Order Comment: For P PM implantCOLLECTOR TO SPECIFY Performed By: #### L 100.0500, L400.0001, L300.3900, L500.2500 ####[facility] [address] [place], [address] EPI,TRANSITION 0-5 SEEN Normal 0-5 [facility] Comment on above: Order Comment: For P PM implantCOLLECTOR TO SPECIFY Performed By: #### L 100.0500, L400.0001, L300.3900, L500.2500 ####[facility] [address] [place], [address] WBC 0-5 SEEN Normal 0-5 [facility] Comment on above: Order Comment: For P PM implantCOLLECTOR TO SPECIFY Performed By: #### L 100.0500, L400.0001, L300.3900, L500.2500 ####[facility] [address] [place], [address] BACTERIA 0 SEEN Normal None Seen [facility] Comment on above: Order Comment: For P PM implantCOLLECTOR TO SPECIFY Performed By: #### L 100.0500, L400.0001, L300.3900, L500.2500 ####[facility] [address] [place], [address] Mucus Ql (Urine sed) 0 SEEN Normal [facility] Comment on above: Order Comment: For P PM implantCOLLECTOR TO SPECIFY Performed By: #### L 100.0500, L400.0001, L300.3900, L500.2500 ####[facility] [address] [place], [address] RBC 0 SEEN Normal 0-5 [facility] Comment on above: Order Comment: For P PM implantCOLLECTOR TO SPECIFY Performed By: #### L 100.0500, L400.0001, L300.3900, L500.2500 ####[facility] [address] [place], [address] Urine blood detectionOrdered By: Malika Montesinos on 06-28-2024 Urine Occult Blood Negative Negative [facility] Urine clarityOrdered By: Tres Montesinos on 06-28-2024 Clarity (U) Clear Clear [facility] Urine color determinationOrd ered By: Malika Montesinos on 06-28-2024 Color (U) Yellow Yellow [facility] Urine leukocyte esterase det ection by dipstickOrdered By: aMlika Montesinos on 06-28-2024 Leukocyte esterase Test strip Ql (U) Negative Negative [facility] Urine pHOrdered By: Malika Montesinos on 06-28-2024 pH (U) 7.0 [pH] 5.0 - 8.0 [facility] Urine sediment bacteria coun t by microscopy (number/high power field)Ordered By: Malika Montesinos on 06-28-2024 Bacteria LM.HPF (Urine sed) [#/Area] 0 /[HPF] None Seen [facility] Urine specific gravity measu rementOrdered By: Malika Montesinos on 06-28-2024 Specific gravity (U) [Rel density] 1.010 1.002-1.030 [facility] Urobilinogen Ql (U)Ordered B y: Malika Montesinos on 06-28-2024 Urobilinogen (U) [Mass/Vol] 8 mg/dL High Normal [facility] White blood cell (WBC) count Ordered By: Malika Montesinos on 06-28-2024 WBC (Bld) [#/Vol] 8.5 10*3/uL Normal 4.4-11.0 [facility] Comment on above: Order Comment: Comme nts: For Micra VR pacemaker implant Performed By: #### L 100.0500, L400.0001, L300.3900, L500.2500 ####[facility] [address] [place], [place], [id number] White blood cell countOrdere d By: Malika Montesinos on 06-28-2024 Urine WBC 0-5 SEEN /hpf 0-5 [facility] CNPNon 06-25-2024 CNPN Normal [facility] CNPNon 06-24-2024 CNPN Normal [facility] US DVT LOWER LTon 06-24-2024 US DVT LOWER LT Normal [facility] US Lower extremity vein - le fton 06-24-2024 IMPRESSION: Negative study for proximal DVT in the left lower extremity. Limited visualization of the calf veins. Negative study for superficial thrombophlebitis in the imaged segments of the left lower extremity. Sterile Process Coordinator: PSCB Transcribe Date/Time: Jun 24 2024 12:11P Dictated by : JERALD MOREIRA MD This examination was interpreted and the report reviewed and electronically signed by: JERALD MOREIRA MD on Jun 24 2024 12:14PM [facility] DIVISION OF RADIOLOGY * * *Final Report* * * DATE OF EXAM: Jun 24 2024 12:04PM WRU 1006 - US DVT LOWER LT / PROCEDURE REASON: Localized swelling of left lower leg * * * * Physician Interpretation * * * * EXAMINATION: LEFT LOWER EXTREMITY DEEP VENOUS ULTRASOUND WITH DOPPLER IMAGING CLINICAL HISTORY: Swelling TECHNIQUE: Grayscale with compression maneuvers, color Doppler and spectral Doppler imaging of the left proximal deep veins was performed. Grayscale with compression maneuvers of the peroneal and posterior tibial veins was performed. The left great and small saphenous veins were evaluated at their insertion to the deep system. The contralateral common femoral vein was imaged for comparison. Images were obtained and stored in a permanent archive. MQ: USLEL_1 COMPARISON: None RESULT: Limitations: Limited visualization of the calf veins due to body habitus. LEFT LOWER EXTREMITY PROXIMAL DEEP VEINS Distal External Iliac, Common Femoral and proximal Profunda Veins: Compression: Normal Doppler: Normal, spontaneous respirophasic flow. Normal response to augmentation. Femoral vein: Compression: Normal Doppler: Normal, spontaneous flow. Normal response to augmentation. Popliteal vein: Compression: Normal Doppler: Normal, spontaneous flow. Normal response to augmentation. CALF DEEP VEINS Peroneal veins: Limited visualization Posterior tibial veins: Limited visualization Gastrocnemius and Soleal veins: Not imaged. SUPERFICIAL VEINS Great saphenous: Patent and compressible at insertion into common femoral vein; not otherwise assessed. Small Saphenous: Patent and compressible in the proximal calf, not otherwise assessed. RIGHT LOWER EXTREMITY (FOR COMPARISON) Common Femoral Vein: Compression: Normal Doppler: Normal, spontaneous respirophasic flow. Normal response to augmentation. DIVISION OF RADIOLOGY Provider, [facility] Menan - 06/24/2024 * * *Final Report* * * DATE OF EXAM: Jun 24 2024 12:04PM WRU 1006 - US DVT LOWER LT / PROCEDURE REASON: Localized swelling of left lower leg * * * * Physician Interpretation * * * * EXAMINATION: LEFT LOWER EXTREMITY DEEP VENOUS ULTRASOUND WITH DOPPLER IMAGING CLINICAL HISTORY: Swelling TECHNIQUE: Grayscale with compression maneuvers, color Doppler and spectral Doppler imaging of the left proximal deep veins was performed. Grayscale with compression maneuvers of the peroneal and posterior tibial veins was performed. The left great and small saphenous veins were evaluated at their insertion to the deep system. The contralateral common femoral vein was imaged for comparison. Images were obtained and stored in a permanent archive. MQ: USLEL_1 COMPARISON: None RESULT: Limitations: Limited visualization of the calf veins due to body habitus. LEFT LOWER EXTREMITY PROXIMAL DEEP VEINS Distal External Iliac, Common Femoral and proximal Profunda Veins: Compression: Normal Doppler: Normal, spontaneous respirophasic flow. Normal response to augmentation. Femoral vein: Compression: Normal Doppler: Normal, spontaneous flow. Normal response to augmentation. Popliteal vein: Compression: Normal Doppler: Normal, spontaneous flow. Normal response to augmentation. CALF DEEP VEINS Peroneal veins: Limited visualization Posterior tibial veins: Limited visualization Gastrocnemius and Soleal veins: Not imaged. SUPERFICIAL VEINS Great saphenous: Patent and compressible at insertion into common femoral vein; not otherwise assessed. Small Saphenous: Patent and compressible in the proximal calf, not otherwise assessed. RIGHT LOWER EXTREMITY (FOR COMPARISON) Common Femoral Vein: Compression: Normal Doppler: Normal, spontaneous respirophasic flow. Normal response to augmentation. IMPRESSION IMPRESSION: Negative study for proximal DVT in the left lower extremity. Limited visualization of the calf veins. Negative study for superficial thrombophlebitis in the imaged segments of the left lower extremity. Sterile Process Coordinator: JAVY Transcribe Date/Time: Jun 24 2024 12:11P Dictated by : JERALD MOREIRA MD This examination was interpreted and the report reviewed and electronically signed by: JERALD MOREIRA MD on Jun 24 2024 12:14PM [facility] Study observation (narrative) [facility] US Lower extremity vein - le ftOrdered By: Ccf Provider on 06-24-2024 [facility] CNOVon 06-22-2024 CNOV Normal [facility] XR KNEE 4V AP/PA BOTH+LAT/ME R LTon 06-22-2024 XR KNEE 4V AP/PA BOTH+LAT/LIZBETH LT Normal [facility] Absolute neutrophil countOrd ered By: Radha Robles on 06-17-2024 Neutrophils (Bld) [#/Vol] 6.6 10*3/uL 2.0-7.7 [facility] Basophil percentageOrdered B y: Radah Robles on 06-17-2024 Basophils/100 WBC (Bld) 0.8 % 0-1 [facility] CBC W/Diff, Automatedon 05-24 Absolute Lymph 1.17 X10 3/uL Normal 0.83-4.51 [facility] Comment on above: Performed By: #### L 100.0100 ####[facility] [address] [place], [address] Absolute Neut 6.6 X10 3/uL Normal 2.0-7.7 [facility] Comment on above: Performed By: #### L 100.0100 ####[facility] [address] [place], [address] Basophils/100 WBC (Bld) 0.8 % Normal 0-1 [facility] Comment on above: Performed By: #### L 100.0100 ####[facility] [address] [place], [address] Eosinophils/100 WBC (Bld) 2.6 % Normal 0-5 [facility] Comment on above: Performed By: #### L 100.0100 ####[facility] [address] [place], [address] Erythrocyte distribution width (RBC) [Ratio] 16.8 % High 11.6-14.6 [facility] Comment on above: Performed By: #### L 100.0100 ####[facility] [address] [place], [address] Hematocrit (Bld) [Volume fraction] 41.5 % Normal 40-54 [facility] Comment on above: Performed By: #### L 100.0100 ####[facility] [address] [place], [address] Hemoglobin (Bld) [Mass/Vol] 12.8 g/dL Low 13.0-16.5 [facility] Comment on above: Performed By: #### L 100.0100 ####[facility] [address] [place], [address] IG% 0.500 Normal 0.0-0.9 [facility] Comment on above: Result Comment: IG% - Immature Granulocytes (promyelocytes, myelocytes andmetamyelocytes) > 1% indicates that a LEFT SHIFT is Present. Performed By: #### L 100.0100 ####[facility] [address] [place], [address] Lymphocytes/100 WBC (Bld) 13.7 % Low 19-41 [facility] Comment on above: Performed By: #### L 100.0100 ####[facility] [address] [place], [address] MCH (RBC) [Entitic mass] 27.5 pg Normal 27.0-32.0 [facility] Comment on above: Performed By: #### L 100.0100 ####[facility] [address] [place], [address] MCHC (RBC) [Mass/Vol] 30.8 g/dL Low 32-36 [facility] Comment on above: Performed By: #### L 100.0100 ####[facility] [address] [place], [address] MCV (RBC) [Entitic vol] 89.1 fL Normal 80-94 [facility] Comment on above: Performed By: #### L 100.0100 ####[facility] [address] [place], [address] Monocytes/100 WBC (Bld) 5.5 % Normal 0-10 [facility] Comment on above: Performed By: #### L 100.0100 ####[facility] [address] [place], [address] Neutrophils/100 WBC (Bld) 76.9 % High 47-70 [facility] Comment on above: Performed By: #### L 100.0100 ####[facility] [address] [place], [address] Nucleated RBC (Bld) [#/Vol] 0 10*3/uL Normal 0-5 [facility] Comment on above: Performed By: #### L 100.0100 ####[facility] [address] [place], [address] Platelet mean volume (Bld) [Entitic vol] 10.6 fL Normal 6.2-12.0 [facility] Comment on above: Performed By: #### L 100.0100 ####[facility] [address] [place], [address] Platelets (Bld) [#/Vol] 157 10*3/uL Normal 150-450 [facility] Comment on above: Performed By: #### L 100.0100 ####[facility] [address] [place], [address] RBC (Bld) [#/Vol] 4.66 10*6/uL Normal 4.6-6.2 [facility] Comment on above: Performed By: #### L 100.0100 ####[facility] [address] [place], [address] RDW SD 54.5 fl High 35.1-43.9 [facility] Comment on above: Performed By: #### L 100.0100 ####[facility] [address] [place], [address] WBC (Bld) [#/Vol] 8.6 10*3/uL Normal 4.4-11.0 [facility] Comment on above: Performed By: #### L 100.0100 ####[facility] [address] [place], [address] CNPNon 06-17-2024 CNPN Normal [facility] Emergency Department Summary on 06-17-2024 Emergency Department Summary Normal [facility] Eosinophil percentageOrdered By: Radha Robles on 06-17-2024 Eosinophils/100 WBC (Bld) 2.6 % 0-5 [facility] Erythrocyte distribution wid th ratioOrdered By: Radha Robles on 06-17-2024 Erythrocyte distribution width (RBC) [Ratio] 16.8 % High 11.6-14.6 [facility] Erythrocyte distribution wid th standard deviationOrdered By: Radha Robles on 06-17-2024 Erythrocyte distribution width (RBC) [Entitic vol] 54.5 fL High 35.1-43.9 [facility] Hematocrit Auto (Bld) [Volum e fraction]Ordered By: Radha Robles on 06-17-2024 Hematocrit (Bld) [Volume fraction] 41.5 % 40-54 [facility] Hemoglobin measurementOrdere d By: Radha Robles on 06-17-2024 Hemoglobin (Bld) [Mass/Vol] 12.8 g/dL Low 13.0-16.5 [facility] Immature granulocytes/100 WB C Auto (Bld)Ordered By: Radha Robles on 06-17-2024 Immature granulocytes/100 WBC (Bld) 0.500 % 0.0-0.9 [facility] Comment on above: IG% - Immature Granu locytes (promyelocytes, myelocytes and metamyelocytes) > 1% indicates that a LEFT SHIFT is Present. Knee 4 or More Viewson 06-17 Knee 4 or More Views Normal [facility] Lymphocytes Auto (Unsp spec) [#/Vol]Ordered By: Radha Robles on 06-17-2024 Lymphocytes (Bld) [#/Vol] 1.17 10*3/uL 0.83-4.51 [facility] Lymphocytes/100 WBC Auto (Un sp spec)Ordered By: Radha Robles on 06-17-2024 Lymphocytes/100 WBC (Bld) 13.7 % Low 19-41 [facility] MCV (mean corpuscular volume ) determinationOrdered By: Radha Robles on 06-17-2024 MCV (RBC) [Entitic vol] 89.1 fL 80-94 [facility] Mean corpuscular hemoglobin (MCH) determinationOrdered By: Radha Robles on 06-17-2024 MCH (RBC) [Entitic mass] 27.5 pg 27.0-32.0 [facility] Mean corpuscular hemoglobin concentration (MCHC) determinationOrdered By: Radha Robles on 06-17-2024 MCHC (RBC) [Mass/Vol] 30.8 g/dL Low 32-36 [facility] Mean platelet volume determi nationOrdered By: Radha Robles on 06-17-2024 Platelet mean volume (Bld) [Entitic vol] 10.6 fL 6.2-12.0 [facility] Monocyte percentageOrdered B y: Radha Robles on 06-17-2024 Monocytes/100 WBC (Bld) 5.5 % 0-10 [facility] Neutrophil percentageOrdered By: Radha Robles on 06-17-2024 Neutrophils/100 WBC (Bld) 76.9 % High 47-70 [facility] Nucleated red blood cell per centageOrdered By: Radha Robles on 06-17-2024 Nucleated RBC/100 WBC (Bld) [Ratio] 0 % 0-5 [facility] Platelet countOrdered By: Riri Robles on 06-17-2024 Platelets (Bld) [#/Vol] 157 10*3/uL 150-450 [facility] RBC Auto (Bld) [#/Vol]Ordere d By: Radha Robles on 06-17-2024 RBC (Bld) [#/Vol] 4.66 10*6/uL 4.6-6.2 [facility] White blood cell (WBC) count Ordered By: Radha Robles on 06-17-2024 WBC (Bld) [#/Vol] 8.6 10*3/uL 4.4-11.0 [facility] 12 Lead EKG performed by [facility] on 06-14-2024 12 Lead EKG performed by [facility] Normal [facility] Cardiology Visit Reporton Cardiology Visit Report Normal [facility] 12 Lead EKGon 06-09-2024 12 Lead EKG Normal [facility] Absolute neutrophil countOrd ered By: ED PROVIDER on 06-09-2024 Neutrophils (Bld) [#/Vol] 5.4 10*3/uL 2.0-7.7 [facility] Basic Metabolic Profile (BMP )on 06-09-2024 BUN/CRE 24.3 RATIO High 10-20 [facility] Comment on above: Order Comment: 1Y Performed By: #### L 100.0100, L501.5425, L500.2500 ####[facility] [address] [place], [address] CA,Total 8.9 mg/dL Normal 8.5-10.1 [facility] Comment on above: Order Comment: 1Y Performed By: #### L 100.0100, L501.5425, L500.2500 ####[facility] [address] [place], [address] Chloride [Moles/Vol] 107 mmol/L Normal 98-107 [facility] Comment on above: Order Comment: 1Y Performed By: #### L 100.0100, L501.5425, L500.2500 ####[facility] [address] [place], [address] CO2 [Moles/Vol] 30.0 mmol/L Normal 21.0-32.0 [facility] Comment on above: Order Comment: 1Y Performed By: #### L 100.0100, L501.5425, L500.2500 ####[facility] [address] [place], [address] Creatinine [Mass/Vol] 0.95 mg/dL Normal 0.70-1.30 [facility] Comment on above: Order Comment: 1Y Result Comment: The validity of the calculated GFR GFRAA in patients over70 years has not been determined. Clinical correlation isessential. Performed By: #### L 100.0100, L501.5425, L500.2500 ####[facility] [address] [place], [address] ECRCL 78.73 ml/min Normal [facility] Comment on above: Order Comment: 1Y Performed By: #### L 100.0100, L501.5425, L500.2500 ####[facility] [address] [place], [address] EST GFR - AA 97 mL/min Normal >60 [facility] Comment on above: Order Comment: 1Y Result Comment: Afri can [place] GFR Calc Performed By: #### L 100.0100, L501.5425, L500.2500 ####[facility] [address] [place], [address] GAP 3 Low 5-15 [facility] Comment on above: Order Comment: 1Y Performed By: #### L 100.0100, L501.5425, L500.2500 ####[facility] [address] [place], [address] GFR/1.73 sq M.predicted among non-blacks MDRD (S/P/Bld) [Vol rate/Area] 80 mL/min/{1.73_m2} Normal >60 [facility] Comment on above: Order Comment: 1Y Result Comment: Non- GFR Calc Performed By: #### L 100.0100, L501.5425, L500.2500 ####[facility] [address] [place], [address] Glucose [Mass/Vol] 110 mg/dL High 74-106 [facility] Comment on above: Order Comment: 1Y Result Comment: Fast ing Glucose result from 100 to 125 mg/dLsuggests IMPAIRED HOMEOSTASIS per A.D.A. criteria. Performed By: #### L 100.0100, L501.5425, L500.2500 ####[facility] [address] [place], [address] Potassium [Moles/Vol] 4.1 mmol/L Normal 3.5-5.1 [facility] Comment on above: Order Comment: 1Y Performed By: #### L 100.0100, L501.5425, L500.2500 ####[facility] [address] [place], [address] Sodium [Moles/Vol] 140 mmol/L Normal 136-145 [facility] Comment on above: Order Comment: 1Y Performed By: #### L 100.0100, L501.5425, L500.2500 ####[facility] [address] [place], [address] Urea nitrogen [Mass/Vol] 23 mg/dL High 01-07 [facility] Comment on above: Order Comment: 1Y Performed By: #### L 100.0100, L501.5425, L500.2500 ####[facility] [address] [place], [address] Basophil percentageOrdered B y: ED PROVIDER on 06-09-2024 Basophils/100 WBC (Bld) 1.0 % 0-1 [facility] Blood urea nitrogen (BUN)/cr eatinine ratioOrdered By: Adryan Estraad on 06-09-2024 Urea nitrogen/Creatinine [Mass ratio] 24.3 mg/mg High 04-11 [facility] CBC W/Diff, Automatedon 05-23 Absolute Lymph 1.28 X10 3/uL Normal 0.83-4.51 [facility] Comment on above: Performed By: #### L 100.0100, L501.5425, L500.2500 ####[facility] [address] [place], [address] Absolute Neut 5.4 X10 3/uL Normal 2.0-7.7 [facility] Comment on above: Performed By: #### L 100.0100, L501.5425, L500.2500 ####[facility] [address] [place], [address] Basophils/100 WBC (Bld) 1.0 % Normal 0-1 [facility] Comment on above: Performed By: #### L 100.0100, L501.5425, L500.2500 ####[facility] [address] [place], [address] Eosinophils/100 WBC (Bld) 5.5 % High 0-5 [facility] Comment on above: Performed By: #### L 100.0100, L501.5425, L500.2500 ####[facility] [address] [place], [address] Erythrocyte distribution width (RBC) [Ratio] 16.3 % High 11.6-14.6 [facility] Comment on above: Performed By: #### L 100.0100, L501.5425, L500.2500 ####[facility] [address] [place], [address] Hematocrit (Bld) [Volume fraction] 43.5 % Normal 40-54 [facility] Comment on above: Performed By: #### L 100.0100, L501.5425, L500.2500 ####[facility] [address] [place], [address] Hemoglobin (Bld) [Mass/Vol] 13.3 g/dL Normal 13.0-16.5 [facility] Comment on above: Performed By: #### L 100.0100, L501.5425, L500.2500 ####[facility] [address] [place], [address] IG% 0.300 Normal 0.0-0.9 [facility] Comment on above: Result Comment: IG% - Immature Granulocytes (promyelocytes, myelocytes andmetamyelocytes) > 1% indicates that a LEFT SHIFT is Present. Performed By: #### L 100.0100, L501.5425, L500.2500 ####[facility] [address] [place], [address] Lymphocytes/100 WBC (Bld) 16.8 % Low 19-41 [facility] Comment on above: Performed By: #### L 100.0100, L501.5425, L500.2500 ####[facility] [address] [place], [address] MCH (RBC) [Entitic mass] 27.5 pg Normal 27.0-32.0 [facility] Comment on above: Performed By: #### L 100.0100, L501.5425, L500.2500 ####[facility] [address] [place], [address] MCHC (RBC) [Mass/Vol] 30.6 g/dL Low 32-36 [facility] Comment on above: Performed By: #### L 100.0100, L501.5425, L500.2500 ####[facility] [address] [place], [address] MCV (RBC) [Entitic vol] 89.9 fL Normal 80-94 [facility] Comment on above: Performed By: #### L 100.0100, L501.5425, L500.2500 ####[facility] [address] [place], [address] Monocytes/100 WBC (Bld) 5.9 % Normal 0-10 [facility] Comment on above: Performed By: #### L 100.0100, L501.5425, L500.2500 ####[facility] [address] [place], [address] Neutrophils/100 WBC (Bld) 70.5 % High 47-70 [facility] Comment on above: Performed By: #### L 100.0100, L501.5425, L500.2500 ####[facility] [address] [place], [address] Nucleated RBC (Bld) [#/Vol] 0 10*3/uL Normal 0-5 [facility] Comment on above: Performed By: #### L 100.0100, L501.5425, L500.2500 ####[facility] [address] [place], [address] Platelet mean volume (Bld) [Entitic vol] 10.4 fL Normal 6.2-12.0 [facility] Comment on above: Performed By: #### L 100.0100, L501.5425, L500.2500 ####[facility] [address] [place], [address] Platelets (Bld) [#/Vol] 178 10*3/uL Normal 150-450 [facility] Comment on above: Performed By: #### L 100.0100, L501.5425, L500.2500 ####[facility] [address] [place], [address] RBC (Bld) [#/Vol] 4.84 10*6/uL Normal 4.6-6.2 [facility] Comment on above: Performed By: #### L 100.0100, L501.5425, L500.2500 ####[facility] [address] [place], [address] RDW SD 53.5 fl High 35.1-43.9 [facility] Comment on above: Performed By: #### L 100.0100, L501.5425, L500.2500 ####[facility] [address] [place], [address] WBC (Bld) [#/Vol] 7.6 10*3/uL Normal 4.4-11.0 [facility] Comment on above: Performed By: #### L 100.0100, L501.5425, L500.2500 ####[facility] [address] [place], [address] CNPNon 06-09-2024 CNPN Normal [facility] Carbon dioxide measurementOr dered By: Adryan Estrada on 06-09-2024 CO2 [Moles/Vol] 30.0 mmol/L 21.0-32.0 [facility] Chest 1 View (Portable)on Chest 1 View (Portable) Normal [facility] Chloride measurementOrdered By: Adryan Estrada on 06-09-2024 Chloride [Moles/Vol] 107 mmol/L 98-107 [facility] Emergency Department Summary on 06-09-2024 Emergency Department Summary Normal [facility] Eosinophil percentageOrdered By: ED PROVIDER on 06-09-2024 Eosinophils/100 WBC (Bld) 5.5 % High 0-5 [facility] Erythrocyte distribution wid th ratioOrdered By: ED PROVIDER on 06-09-2024 Erythrocyte distribution width (RBC) [Ratio] 16.3 % High 11.6-14.6 [facility] Erythrocyte distribution wid th standard deviationOrdered By: ED PROVIDER on 06-09-2024 Erythrocyte distribution width (RBC) [Entitic vol] 53.5 fL High 35.1-43.9 [facility] Estimated glomerular filtrat ion rate (GFR) AmericanOrdered By: Adryan Estrada on 06-09-2024 Estimated GFR (MDRD) Amer 97 mL/min >60 [facility] Comment on above: GFR Calc Estimation of creatinine michael aranceOrdered By: Adryan Estrada on 06-09-2024 Estimated Creatinine Clearance Calc 78.73 ml/min [facility] Glomerular filtration rate ( GFR) estimationOrdered By: Adryan Estrada on 06-09-2024 Estimated GFR (MDRD) Non-Af Amer 80 mL/min >60 [facility] Comment on above: Non- GFR Calc Glucose measurementOrdered B y: Adryan Estrada on 06-09-2024 Glucose [Mass/Vol] 110 mg/dL High 74-106 [facility] Comment on above: Fasting Glucose resu lt from 100 to 125 mg/dL suggests IMPAIRED HOMEOSTASIS per A.D.A. criteria. Hematocrit Auto (Bld) [Volum e fraction]Ordered By: ED PROVIDER on 06-09-2024 Hematocrit (Bld) [Volume fraction] 43.5 % 40-54 [facility] Hemoglobin measurementOrdere d By: ED PROVIDER on 06-09-2024 Hemoglobin (Bld) [Mass/Vol] 13.3 g/dL 13.0-16.5 [facility] Immature granulocytes/100 WB C Auto (Bld)Ordered By: ED PROVIDER on 06-09-2024 Immature granulocytes/100 WBC (Bld) 0.300 % 0.0-0.9 [facility] Comment on above: IG% - Immature Granu locytes (promyelocytes, myelocytes and metamyelocytes) > 1% indicates that a LEFT SHIFT is Present. L501.5425on 06-09-2024 TROPONIN-I HS 15 pg/mL Normal 3.0-78.0 [facility] Comment on above: Order Comment: 1Y Result Comment: Siva hernandez Note: New Test Units and Gender Specific Reference Ranges. For more information see Policy Stat Procedure [place] High Sensitivity Troponin (TNIH) and attachments. Performed By: #### L 100.0100, L501.5425, L500.2500 ####[facility] [address] [place], [address] Lymphocytes Auto (Unsp spec) [#/Vol]Ordered By: ED PROVIDER on 06-09-2024 Lymphocytes (Bld) [#/Vol] 1.28 10*3/uL 0.83-4.51 [facility] Lymphocytes/100 WBC Auto (Un sp spec)Ordered By: ED PROVIDER on 06-09-2024 Lymphocytes/100 WBC (Bld) 16.8 % Low 19-41 [facility] MCV (mean corpuscular volume ) determinationOrdered By: ED PROVIDER on 06-09-2024 MCV (RBC) [Entitic vol] 89.9 fL 80-94 [facility] MR/PAT.ANEon 06-09-2024 MR/PAT.ANE Normal [facility] Mean corpuscular hemoglobin (MCH) determinationOrdered By: ED PROVIDER on 06-09-2024 MCH (RBC) [Entitic mass] 27.5 pg 27.0-32.0 [facility] Mean corpuscular hemoglobin concentration (MCHC) determinationOrdered By: ED PROVIDER on 06-09-2024 MCHC (RBC) [Mass/Vol] 30.6 g/dL Low 32-36 [facility] Mean platelet volume determi nationOrdered By: ED PROVIDER on 06-09-2024 Platelet mean volume (Bld) [Entitic vol] 10.4 fL 6.2-12.0 [facility] Monocyte percentageOrdered B y: ED PROVIDER on 06-09-2024 Monocytes/100 WBC (Bld) 5.9 % 0-10 [facility] Neutrophil percentageOrdered By: ED PROVIDER on 06-09-2024 Neutrophils/100 WBC (Bld) 70.5 % High 47-70 [facility] Nucleated red blood cell per centageOrdered By: ED PROVIDER on 06-09-2024 Nucleated RBC/100 WBC (Bld) [Ratio] 0 % 0-5 [facility] Platelet countOrdered By: ED PROVIDER on 06-09-2024 Platelets (Bld) [#/Vol] 178 10*3/uL 150-450 [facility] Potassium measurementOrdered By: Adryan Estrada on 06-09-2024 Potassium [Moles/Vol] 4.1 mmol/L 3.5-5.1 [facility] RBC Auto (Bld) [#/Vol]Ordere d By: ED PROVIDER on 06-09-2024 RBC (Bld) [#/Vol] 4.84 10*6/uL 4.6-6.2 [facility] Serum anion gap measurementO rdered By: Adryan Estrada on 06-09-2024 Anion gap [Moles/Vol] 3 mmol/L Low 5-15 [facility] Serum or plasma calcium tristan urement (mass/volume)Ordered By: Adryan Estrada on 06-09-2024 Calcium [Mass/Vol] 8.9 mg/dL 8.5-10.1 [facility] Serum or plasma creatinine m easurement (mass/volume)Ordered By: Adryanamanda Estrada on 06-09-2024 Creatinine [Mass/Vol] 0.95 mg/dL 0.70-1.30 [facility] Comment on above: The validity of the calculated GFR & GFRAA in patients over 70 years has not been determined. Clinical correlation is essential. Serum or plasma urea nitroge n measurement (mass/volume)Ordered By: Adryan Estrada on 06-09-2024 Urea nitrogen [Mass/Vol] 23 mg/dL High 7-18 [facility] Sodium levelOrdered By: Adryanamanda Estrada on 06-09-2024 Sodium [Moles/Vol] 140 mmol/L 136-145 [facility] Tropinin I.cardiac panel Hig h sensitivity methodOrdered By: Adryan Estrada on 06-09-2024 Troponin I High Sensitivity 15 pg/mL 3.0-78.0 [facility] Comment on above: Please Note: New Keily t Units and Gender Specific Reference Ranges. For more information see Policy Stat Procedure [place] High Sensitivity Troponin (TNIH) and attachments. White blood cell (WBC) count Ordered By: ED PROVIDER on 06-09-2024 WBC (Bld) [#/Vol] 7.6 10*3/uL 4.4-11.0 [facility] MR/PAT.ANEon 06-08-2024 MR/PAT.ANE Normal [facility] CNOVon 05-28-2024 CNOV Normal [facility] Basic metabolic 2000 panelon 05-13-2024 Anion gap [Moles/Vol] 10 mmol/L Normal 8-15 [facility] Comment on above: Order Comment: Speci men Type: BLOOD SPECIMENOrdering Facility: [facility] Address: [address] [place] [address] Performed By: #### 2 4321-2 ####[facility] [id number] [place] [address] [place] Calcium [Mass/Vol] 9.2 mg/dL Normal 8.5-10.2 [facility] Comment on above: Order Comment: Speci men Type: BLOOD SPECIMENOrdering Facility: [facility] Address: [address] [place] [address] Performed By: #### 2 4321-2 ####[facility] [id number] [place] [address] [place] Chloride [Moles/Vol] 104 mmol/L Normal 98-107 [facility] Comment on above: Order Comment: Speci men Type: BLOOD SPECIMENOrdering Facility: [facility] Address: [address] [place] [address] Performed By: #### 2 4321-2 ####[facility] [id number] [place] [address] [place] CO2 [Moles/Vol] 25 mmol/L Normal 22-30 [facility] Comment on above: Order Comment: Speci men Type: BLOOD SPECIMENOrdering Facility: [facility] Address: [address] [place] [address] Performed By: #### 2 4321-2 ####[facility] [id number] [place] [address] [place] Creatinine [Mass/Vol] 0.87 mg/dL Normal 0.73-1.22 [facility] Comment on above: Order Comment: Speci men Type: BLOOD SPECIMENOrdering Facility: [facility] Address: [address] [place] [address] Performed By: #### 2 4321-2 ####[facility] [id number] [place] [address] [place] Creatinine and Glomerular filtration rate.predicted panel (S/P/Bld) 85 mL/min/1.73m??? Normal >=60 [facility] Comment on above: Order Comment: Speci men Type: BLOOD SPECIMENOrdering Facility: [facility] Address: [address] [place] [address] Result Comment: Kateryna mated Glomerular Filtration Rate (eGFR) is calculated using the 2020 CKD-EPI creatinine equation. This equation utilizes serum creatinine, sex, and age as parameters. The creatinine assay has traceable calibration to isotope dilution-mass spectrometry. Refer to KDIGO guidelines for clinical interpretation. In patients with unstable renal function, e.g. those with acute kidney injury, the eGFR may not accurately reflect actual GFR. Performed By: #### 2 4321-2 ####[facility] [id number] [place] [address] [place] Glucose [Mass/Vol] 171 mg/dL High 74-99 [facility] Comment on above: Order Comment: Speci men Type: BLOOD SPECIMENOrdering Facility: [facility] Address: [address] [place] [address] Result Comment: The [place] Diabetes Association (ADA) provides guidance for cutoff values for fasting glucose and random glucose. The ADA defines fasting as no caloric intake for at least 8 hours. Fasting plasma glucose results between 100 to 125 mg/dL indicate increased risk for diabetes (prediabetes).Fasting plasma glucose results greater than or equal to 126 mg/dL meet the criteria for diagnosis of diabetes. In the absence of unequivocal hyperglycemia, results should be confirmed by repeat testing. In a patient with classic symptoms of hyperglycemia or hyperglycemic crisis, random plasma glucose results greater than or equal to 200 mg/dL meet the criteria for diagnosis of diabetes.Reference: Standards of Medical Care in Diabetes 2016, [employer] Diabetes Association. Diabetes Care. 2016.39(Suppl 1). Performed By: #### 2 4321-2 ####[facility]ILL[facility]OWNCL[facility] [id number] [place] [address] [place] Potassium [Moles/Vol] 4.2 mmol/L Normal 3.7-5.1 [facility] Comment on above: Order Comment: Misti vega Type: BLOOD SPECIMENOrdering Facility: [facility] Address: [address] [place] [address] Performed By: #### 2 4321-2 ####[facility] [id number] [place] [address] [place] Sodium [Moles/Vol] 139 mmol/L Normal 136-144 [facility] Comment on above: Order Comment: Misti vega Type: BLOOD SPECIMENOrdering Facility: [facility] Address: [address] [place] [address] Performed By: #### 2 4321-2 ####[facility]ITAL[facility] [id number] [place] [address] [place] Urea nitrogen [Mass/Vol] 21 mg/dL Normal 9-24 [facility] Comment on above: Order Comment: Giorgioi men Type: BLOOD SPECIMENOrdering Facility: [facility] Address: [address] [place] [address] Performed By: #### 2 4321-2 ####[facility]ITAL[facility] [id number] [place] [address] [place] CNPNon 04-29-2024 CNPN Normal [facility] Gastroenterology Visit Repor ton 04-28-2024 Gastroenterology Visit Report Normal [facility] CNOVon 04-22-2024 CNOV Normal [facility] Culture, Blood (WB)on 2023 CUB Blood cultures x2, from two different sites No growth in 5 days. Normal [facility] Comment on above: Performed By: #### M 200.1000 ####[facility] [address] [place], [address] Respiratory Cultureon 2023 RESPC Normal [facility] Comment on above: Performed By: #### M 100.2000, M100.2400 ####[facility] [address] [place], [address] Basic Metabolic Profile (BMP )on 04-16-2024 BUN/CRE 22.6 RATIO High 10-20 [facility] Comment on above: Performed By: #### L 100.0100, L500.2500 ####[facility] [address] [place], [address] CA,Total 8.2 mg/dL Low 8.5-10.1 [facility] Comment on above: Performed By: #### L 100.0100, L500.2500 ####[facility] [address] [place], [address] Chloride [Moles/Vol] 116 mmol/L High 98-107 [facility] Comment on above: Performed By: #### L 100.0100, L500.2500 ####[facility] [address] [place], [address] CO2 [Moles/Vol] 25.0 mmol/L Normal 21.0-32.0 [facility] Comment on above: Performed By: #### L 100.0100, L500.2500 ####[facility] [address] [place], [address] Creatinine [Mass/Vol] 0.89 mg/dL Normal 0.70-1.30 [facility] Comment on above: Result Comment: The validity of the calculated GFR GFRAA in patients over70 years has not been determined. Clinical correlation isessential. Performed By: #### L 100.0100, L500.2500 ####[facility] [address] [place], [address] ECRCL 84.47 ml/min Normal [facility] Comment on above: Performed By: #### L 100.0100, L500.2500 ####[facility] [address] [place], [address] EST GFR - AA 105 mL/min Normal >60 [facility] Comment on above: Result Comment: Afri can British GFR Calc Performed By: #### L 100.0100, L500.2500 ####[facility] [address] [place], [address] GAP 3 Low 5-15 [facility] Comment on above: Performed By: #### L 100.0100, L500.2500 ####[facility] [address] [place], [address] GFR/1.73 sq M.predicted among non-blacks MDRD (S/P/Bld) [Vol rate/Area] 87 mL/min/{1.73_m2} Normal >60 [facility] Comment on above: Result Comment: Non- GFR Calc Performed By: #### L 100.0100, L500.2500 ####[facility] [address] [place], [address] Glucose [Mass/Vol] 109 mg/dL High 74-106 [facility] Comment on above: Result Comment: Fast ing Glucose result from 100 to 125 mg/dLsuggests IMPAIRED HOMEOSTASIS per A.D.A. criteria. Performed By: #### L 100.0100, L500.2500 ####[facility] [address] [place], [address] Potassium [Moles/Vol] 3.8 mmol/L Normal 3.5-5.1 [facility] Comment on above: Performed By: #### L 100.0100, L500.2500 ####[facility] [address] [place], [address] Sodium [Moles/Vol] 143 mmol/L Normal 136-145 [facility] Comment on above: Performed By: #### L 100.0100, L500.2500 ####[facility] [address] [place], [address] Urea nitrogen [Mass/Vol] 20 mg/dL High 7-18 [facility] Comment on above: Performed By: #### L 100.0100, L500.2500 ####[facility] [address] [place], [address] CBC W/Diff, Automatedon 10-2 5-2023 Absolute Lymph 0.79 X10 3/uL Low 0.83-4.51 [facility] Comment on above: Performed By: #### L 100.0100, L500.2500 ####[facility] [address] [place], [address] Absolute Neut 8.8 X10 3/uL High 2.0-7.7 [facility] Comment on above: Performed By: #### L 100.0100, L500.2500 ####[facility] [address] [place], [address] Basophils/100 WBC (Bld) 0.6 % Normal 0-1 [facility] Comment on above: Performed By: #### L 100.0100, L500.2500 ####[facility] [address] [place], [address] Eosinophils/100 WBC (Bld) 4.9 % Normal 0-5 [facility] Comment on above: Performed By: #### L 100.0100, L500.2500 ####[facility] [address] [place], [address] Erythrocyte distribution width (RBC) [Ratio] 17.0 % High 11.6-14.6 [facility] Comment on above: Performed By: #### L 100.0100, L500.2500 ####[facility] [address] [place], [address] Hematocrit (Bld) [Volume fraction] 37.6 % Low 40-54 [facility] Comment on above: Performed By: #### L 100.0100, L500.2500 ####[facility] [address] [place], [address] Hemoglobin (Bld) [Mass/Vol] 11.8 g/dL Low 13.0-16.5 [facility] Comment on above: Performed By: #### L 100.0100, L500.2500 ####[facility] [address] [place], [address] IG% 0.500 Normal 0.0-0.9 [facility] Comment on above: Result Comment: IG% - Immature Granulocytes (promyelocytes, myelocytes andmetamyelocytes) > 1% indicates that a LEFT SHIFT is Present. Performed By: #### L 100.0100, L500.2500 ####[facility] [address] [place], [address] Lymphocytes/100 WBC (Bld) 7.3 % Low 19-41 [facility] Comment on above: Performed By: #### L 100.0100, L500.2500 ####[facility] [address] [place], [address] MCH (RBC) [Entitic mass] 28.4 pg Normal 27.0-32.0 [facility] Comment on above: Performed By: #### L 100.0100, L500.2500 ####[facility] [address] [place], [address] MCHC (RBC) [Mass/Vol] 31.4 g/dL Low 32-36 [facility] Comment on above: Performed By: #### L 100.0100, L500.2500 ####[facility] [address] [place], [address] MCV (RBC) [Entitic vol] 90.6 fL Normal 80-94 [facility] Comment on above: Performed By: #### L 100.0100, L500.2500 ####[facility] [address] [place], [address] Monocytes/100 WBC (Bld) 6.0 % Normal 0-10 [facility] Comment on above: Performed By: #### L 100.0100, L500.2500 ####[facility] [address] [place], [address] Neutrophils/100 WBC (Bld) 80.7 % High 47-70 [facility] Comment on above: Performed By: #### L 100.0100, L500.2500 ####[facility] [address] [place], [address] Nucleated RBC (Bld) [#/Vol] 0 10*3/uL Normal 0-5 [facility] Comment on above: Performed By: #### L 100.0100, L500.2500 ####[facility] [address] [place], [address] Platelet mean volume (Bld) [Entitic vol] 10.5 fL Normal 6.2-12.0 [facility] Comment on above: Performed By: #### L 100.0100, L500.2500 ####[facility] [address] [place], [address] Platelets (Bld) [#/Vol] 142 10*3/uL Low 150-450 [facility] Comment on above: Performed By: #### L 100.0100, L500.2500 ####[facility] [address] [place], [address] RBC (Bld) [#/Vol] 4.15 10*6/uL Low 4.6-6.2 [facility] Comment on above: Performed By: #### L 100.0100, L500.2500 ####[facility] [address] [place], [address] RDW SD 56.4 fl High 35.1-43.9 [facility] Comment on above: Performed By: #### L 100.0100, L500.2500 ####[facility] [address] [place], [address] WBC (Bld) [#/Vol] 10.9 10*3/uL Normal 4.4-11.0 [facility] Comment on above: Performed By: #### L 100.0100, L500.2500 ####[facility] [address] [place], [address] Gram Stainon 04-16-2024 List Antibiotics Last 48 Hours? Vancomycin, Zosyn Acceptable Specimen? Yes (<25 Epithelial cells per/lpf) Gram Stain 4+ Gram negative rods 4+ Gram positive cocci 1+ Epithelial cells 4+ White Blood Cells 2+ Gram positive rods 1+ Hyphae Normal [facility] Comment on above: Performed By: #### M 100.2000, M100.2400 ####[facility] [address] [place], [address] Vancomycin, Trough Levelon VANCO, TROUGH 17.4 ug/mL High 5.0-15.0 [facility] Comment on above: Order Comment: Comme nts: Trough to be drawn 30 mins prior to scheduled [id number] Result Comment: VANC OMYCIN STANDARED DRUG THERAPY TROUGH LEVEL: 5.0 - 15.0 mg/LVANCOMYCIN HIGH INTENSITY THERAPY TROUGH LEVEL: 15.0 - 20.0 mg/LHigh Intensity therapy recommended for serious lifethreatening infections include:- Myysfpviky-Bwlxrmuzphhq-Ktqyummak (Ventilator/Healtcare Associated)-SepsisPLEASE CONTACT PHARMACY SERVICES (#3389) FOR INTERPRETATIONOF RESULTS. Performed By: #### L 501.8820 ####[facility] [address] [place], [address] Legionella Antigen Urineon 1 LEGU Normal [facility] Comment on above: Performed By: #### M 300.4500, M300.4600 ####[facility] [address] [place], [address] M100.019on 04-15-2024 M100.019 Negative Normal [facility] Comment on above: Performed By: #### M 100.019 ####[facility] [address] [place], [address] RESPIRATORY PANEL MOLECULARo n 04-15-2024 RP PANEL Normal [facility] Comment on above: Performed By: #### M 100.638 ####[facility] [address] [place], [address] Strep pneumoniae Antig(UR,CS F)on 04-15-2024 STPAG Normal [facility] Comment on above: Performed By: #### M 300.4500, M300.4600 ####[facility] [address] [place], [address] Urine Cultureon 04-15-2024 URC Culture exhibits no growth. Normal [facility] Comment on above: Performed By: #### M 100.2200, L400.0001 ####[facility] [address] [place], [address] 12 Lead EKGon 04-14-2024 12 Lead EKG Normal [facility] CBC W/Diff, Automatedon 10-2 Absolute Lymph 0.25 X10 3/uL Low 0.83-4.51 [facility] Comment on above: Performed By: #### L 500.4050, L300.4310, L503.6005, L300.3900, L100.0100 ####[facility] [address] [place], [address] Absolute Neut 16.8 X10 3/uL High 2.0-7.7 [facility] Comment on above: Performed By: #### L 500.4050, L300.4310, L503.6005, L300.3900, L100.0100 ####[facility] [address] [place], [address] Basophils/100 WBC (Bld) 0.3 % Normal 0-1 [facility] Comment on above: Performed By: #### L 500.4050, L300.4310, L503.6005, L300.3900, L100.0100 ####[facility] [address] [place], [address] Eosinophils/100 WBC (Bld) 0.1 % Normal 0-5 [facility] Comment on above: Performed By: #### L 500.4050, L300.4310, L503.6005, L300.3900, L100.0100 ####[facility] [address] [place], [address] Erythrocyte distribution width (RBC) [Ratio] 16.6 % High 11.6-14.6 [facility] Comment on above: Performed By: #### L 500.4050, L300.4310, L503.6005, L300.3900, L100.0100 ####[facility] [address] [place], [address] Hematocrit (Bld) [Volume fraction] 42.2 % Normal 40-54 [facility] Comment on above: Performed By: #### L 500.4050, L300.4310, L503.6005, L300.3900, L100.0100 ####[facility] [address] [place], [address] Hemoglobin (Bld) [Mass/Vol] 13.8 g/dL Normal 13.0-16.5 [facility] Comment on above: Performed By: #### L 500.4050, L300.4310, L503.6005, L300.3900, L100.0100 ####[facility] [address] [place], [address] IG% 0.400 Normal 0.0-0.9 [facility] Comment on above: Result Comment: IG% - Immature Granulocytes (promyelocytes, myelocytes andmetamyelocytes) > 1% indicates that a LEFT SHIFT is Present. Performed By: #### L 500.4050, L300.4310, L503.6005, L300.3900, L100.0100 ####[facility] [address] [place], [address] Lymphocytes/100 WBC (Bld) 1.4 % Low 19-41 [facility] Comment on above: Performed By: #### L 500.4050, L300.4310, L503.6005, L300.3900, L100.0100 ####[facility] [address] [place], [address] MCH (RBC) [Entitic mass] 28.6 pg Normal 27.0-32.0 [facility] Comment on above: Performed By: #### L 500.4050, L300.4310, L503.6005, L300.3900, L100.0100 ####[facility] [address] [place], [address] MCHC (RBC) [Mass/Vol] 32.7 g/dL Normal 32-36 [facility] Comment on above: Performed By: #### L 500.4050, L300.4310, L503.6005, L300.3900, L100.0100 ####[facility] [address] [place], [address] MCV (RBC) [Entitic vol] 87.4 fL Normal 80-94 [facility] Comment on above: Performed By: #### L 500.4050, L300.4310, L503.6005, L300.3900, L100.0100 ####[facility] [address] [place], [address] Monocytes/100 WBC (Bld) 4.7 % Normal 0-10 [facility] Comment on above: Performed By: #### L 500.4050, L300.4310, L503.6005, L300.3900, L100.0100 ####[facility] [address] [place], [address] Neutrophils/100 WBC (Bld) 93.1 % High 47-70 [facility] Comment on above: Performed By: #### L 500.4050, L300.4310, L503.6005, L300.3900, L100.0100 ####[facility] [address] [place], [address] Nucleated RBC (Bld) [#/Vol] 0 10*3/uL Normal 0-5 [facility] Comment on above: Performed By: #### L 500.4050, L300.4310, L503.6005, L300.3900, L100.0100 ####[facility] [address] [place], [address] Platelet mean volume (Bld) [Entitic vol] 9.7 fL Normal 6.2-12.0 [facility] Comment on above: Performed By: #### L 500.4050, L300.4310, L503.6005, L300.3900, L100.0100 ####[facility] [address] [place], [address] Platelets (Bld) [#/Vol] 157 10*3/uL Normal 150-450 [facility] Comment on above: Performed By: #### L 500.4050, L300.4310, L503.6005, L300.3900, L100.0100 ####[facility] [address] [place], [address] RBC (Bld) [#/Vol] 4.83 10*6/uL Normal 4.6-6.2 [facility] Comment on above: Performed By: #### L 500.4050, L300.4310, L503.6005, L300.3900, L100.0100 ####[facility] [address] [place], [address] RDW SD 53.1 fl High 35.1-43.9 [facility] Comment on above: Performed By: #### L 500.4050, L300.4310, L503.6005, L300.3900, L100.0100 ####[facility] [address] [place], [address] WBC (Bld) [#/Vol] 18.0 10*3/uL High 4.4-11.0 [facility] Comment on above: Performed By: #### L 500.4050, L300.4310, L503.6005, L300.3900, L100.0100 ####[facility] [address] [place], [address] CTA Chest W/WO Contraston CTA Chest W/WO Contrast Normal [facility] Chest PA and Lateralon 04-14 Chest PA and Lateral Normal [facility] Comprehensive Metabolic Prof ilon 04-14-2024 Albumin [Mass/Vol] 3.0 g/dL Low 3.2-5.0 [facility] Comment on above: Performed By: #### L 500.4050, L300.4310, L503.6005, L300.3900, L100.0100 ####[facility] [address] [place], [address] Albumin/Globulin [Mass ratio] 1.0 {ratio} Normal 0.9-2.4 [facility] Comment on above: Performed By: #### L 500.4050, L300.4310, L503.6005, L300.3900, L100.0100 ####[facility] [address] [place], [address] ALK P 102 U/L Normal 45-117 [facility] Comment on above: Performed By: #### L 500.4050, L300.4310, L503.6005, L300.3900, L100.0100 ####[facility] [address] [place], [address] ALT [Catalytic activity/Vol] 17 U/L Normal 16-61 [facility] Comment on above: Performed By: #### L 500.4050, L300.4310, L503.6005, L300.3900, L100.0100 ####[facility] [address] [place], [address] AST [Catalytic activity/Vol] 13 U/L Low 15-37 [facility] Comment on above: Performed By: #### L 500.4050, L300.4310, L503.6005, L300.3900, L100.0100 ####[facility] [address] [place], [address] Bilirubin [Mass/Vol] 0.90 mg/dL Normal 0.20-1.00 [facility] Comment on above: Result Comment: For patients on eltrombopag therapy, use of Dimension [place] TBIL is not recommended. Performed By: #### L 500.4050, L300.4310, L503.6005, L300.3900, L100.0100 ####[facility] [address] [place], [address] BUN/CRE 22.8 RATIO High 10-20 [facility] Comment on above: Performed By: #### L 500.4050, L300.4310, L503.6005, L300.3900, L100.0100 ####[facility] [address] [place], [address] CA,Total 8.9 mg/dL Normal 8.5-10.1 [facility] Comment on above: Performed By: #### L 500.4050, L300.4310, L503.6005, L300.3900, L100.0100 ####[facility] [address] [place], [address] Chloride [Moles/Vol] 110 mmol/L High 98-107 [facility] Comment on above: Performed By: #### L 500.4050, L300.4310, L503.6005, L300.3900, L100.0100 ####[facility] [address] [place], [address] CO2 [Moles/Vol] 26.0 mmol/L Normal 21.0-32.0 [facility] Comment on above: Performed By: #### L 500.4050, L300.4310, L503.6005, L300.3900, L100.0100 ####[facility] [address] [place], [address] Creatinine [Mass/Vol] 1.01 mg/dL Normal 0.70-1.30 [facility] Comment on above: Result Comment: The validity of the calculated GFR GFRAA in patients over70 years has not been determined. Clinical correlation isessential. Performed By: #### L 500.4050, L300.4310, L503.6005, L300.3900, L100.0100 ####[facility] [address] [place], [address] ECRCL 73.31 ml/min Normal [facility] Comment on above: Performed By: #### L 500.4050, L300.4310, L503.6005, L300.3900, L100.0100 ####[facility] [address] [place], [address] EST GFR - AA 90 mL/min Normal >60 [facility] Comment on above: Result Comment: Afri can [place] GFR Calc Performed By: #### L 500.4050, L300.4310, L503.6005, L300.3900, L100.0100 ####[facility] [address] [place], [address] GAP 6 Normal 5-15 [facility] Comment on above: Performed By: #### L 500.4050, L300.4310, L503.6005, L300.3900, L100.0100 ####[facility] [address] [place], [address] GFR/1.73 sq M.predicted among non-blacks MDRD (S/P/Bld) [Vol rate/Area] 75 mL/min/{1.73_m2} Normal >60 [facility] Comment on above: Result Comment: Non- GFR Calc Performed By: #### L 500.4050, L300.4310, L503.6005, L300.3900, L100.0100 ####[facility] [address] [place], [address] Globulin (S) [Mass/Vol] 3.1 g/dL Normal 2.2-4.2 [facility] Comment on above: Performed By: #### L 500.4050, L300.4310, L503.6005, L300.3900, L100.0100 ####[facility] [address] [place], [address] Glucose [Mass/Vol] 154 mg/dL High 74-106 [facility] Comment on above: Result Comment: Fast ing Glucose result greater than or equal to 126 mg/dLsuggests DIABETES MELLITUS per A.D.A. criteria. Performed By: #### L 500.4050, L300.4310, L503.6005, L300.3900, L100.0100 ####[facility] [address] [place], [address] Potassium [Moles/Vol] 3.7 mmol/L Normal 3.5-5.1 [facility] Comment on above: Performed By: #### L 500.4050, L300.4310, L503.6005, L300.3900, L100.0100 ####[facility] [address] [place], [address] Sodium [Moles/Vol] 142 mmol/L Normal 136-145 [facility] Comment on above: Performed By: #### L 500.4050, L300.4310, L503.6005, L300.3900, L100.0100 ####[facility] [address] [place], [address] T PROT 6.1 g/dL Low 6.4-8.2 [facility] Comment on above: Performed By: #### L 500.4050, L300.4310, L503.6005, L300.3900, L100.0100 ####[facility] [address] [place], [address] Urea nitrogen [Mass/Vol] 23 mg/dL High 7-18 [facility] Comment on above: Performed By: #### L 500.4050, L300.4310, L503.6005, L300.3900, L100.0100 ####[facility] [address] [place], [address] Emergency Department Summary on 04-14-2024 Emergency Department Summary Normal [facility] H AND P Exam - Hospitaliston 04-14-2024 H&P Exam - Hospitalist Normal [facility] Lactic Acidon 04-14-2024 Lactate [Moles/Vol] 1.4 mmol/L Normal 0.4-1.9 [facility] Comment on above: Order Comment: N Performed By: #### L 503.6005 ####[facility] [address] [place], [address] Lactate [Moles/Vol] 2.1 mmol/L Invalid Interpretation Code 0.4-1.9 [facility] Comment on above: Order Comment: Y Result Comment: Crit ical Result(s) Called at: 19:03:03 04/14/2024 by:DANIEL BARRERA TO HASEEB SOLER. Results read back by same. Performed By: #### L 500.4050, L300.4310, L503.6005, L300.3900, L100.0100 ####[facility] [address] [place], [address] Partial Thromboplast Timeon 04-14-2024 aPTT Coag (Bld) [Time] 27.0 s Normal 24.1-36.2 [facility] Comment on above: Performed By: #### L 500.4050, L300.4310, L503.6005, L300.3900, L100.0100 ####[facility] [address] [place], [address] Prothrombin Time w/INRon INR Coag (PPP) [Relative time] 1.1 {INR} Normal [facility] Comment on above: Performed By: #### L 500.4050, L300.4310, L503.6005, L300.3900, L100.0100 ####[facility] [address] [place], [address] PT Coag (PPP) [Time] 14.2 s Normal 11.7-14.9 [facility] Comment on above: Performed By: #### L 500.4050, L300.4310, L503.6005, L300.3900, L100.0100 ####[facility] [address] [place], [address] Urinalysis, Completeon 04-14 Mucus Ql (Urine sed) 2+ /hpf Normal [facility] Comment on above: Order Comment: CLEAN CATCH Performed By: #### M 100.2200, L400.0001 ####[facility] [address] [place], [address] RBC 0-5 SEEN Normal 0-5 [facility] Comment on above: Order Comment: CLEAN CATCH Performed By: #### M 100.2200, L400.0001 ####[facility] [address] [place], [address] WBC 0-5 SEEN Normal 0-5 [facility] Comment on above: Order Comment: CLEAN CATCH Performed By: #### M 100.2200, L400.0001 ####[facility] [address] [place], [address] BACTERIA RARE Normal None Seen [facility] Comment on above: Order Comment: CLEAN CATCH Performed By: #### M 100.2200, L400.0001 ####[facility] [address] [place], [address] EPI,SQUAMOUS 0-5 SEEN Normal 0-5 [facility] Comment on above: Order Comment: CLEAN CATCH Performed By: #### M 100.2200, L400.0001 ####[facility] [address] [place], [address] CNOVon 04-09-2024 CNOV Normal [facility] CNPNon 04-09-2024 CNPN Normal [facility] CBC W Auto Differential pane l (Bld)on 03-29-2024 Basophils (Bld) [#/Vol] 0.08 10*3/uL Normal <0.11 [facility] Comment on above: Order Comment: Speci men Type: BLOOD SPECIMENOrdering Facility: [facility] Address: [address] [place] [address] Performed By: #### 5 7021-8 ####[facility] MILLWNCLIA [id number] [place] [address] [place] Basophils/100 WBC (Bld) 1.1 % Normal [facility] Comment on above: Order Comment: Speci men Type: BLOOD SPECIMENOrdering Facility: [facility] Address: [address] [place] [address] Performed By: #### 5 7021-8 ####[facility] [id number] [place] [address] [place] Differential cell count method Nom (Bld) Auto Normal [facility] Comment on above: Order Comment: Speci men Type: BLOOD SPECIMENOrdering Facility: [facility] Address: [address] [place] [address] Performed By: #### 5 7021-8 ####[facility] [id number] [place] [address] [place] Eosinophils (Bld) [#/Vol] 0.32 10*3/uL Normal <0.46 [facility] Comment on above: Order Comment: Speci men Type: BLOOD SPECIMENOrdering Facility: [facility] Address: [address] [place] [address] Performed By: #### 5 7021-8 ####[facility] [id number] [place] [address] [place] Eosinophils/100 WBC (Bld) 4.5 % Normal [facility] Comment on above: Order Comment: Speci men Type: BLOOD SPECIMENOrdering Facility: [facility] Address: [address] [place] [address] Performed By: #### 5 7021-8 ####[facility] RANDYWNCLIA [id number] [place] [address] [place] Erythrocyte distribution width (RBC) [Ratio] 16.5 % High 11.5-15.0 [facility] Comment on above: Order Comment: Speci men Type: BLOOD SPECIMENOrdering Facility: [facility] Address: [address] [place] [address] Performed By: #### 5 7021-8 ####[facility]ITAL[facility]CL[facility] [id number] [place] [address] [place] Hematocrit (Bld) [Volume fraction] 42.4 % Normal 39.0-51.0 [facility] Comment on above: Order Comment: Speci men Type: BLOOD SPECIMENOrdering Facility: [facility] Address: [address] [place] [address] Performed By: #### 5 7021-8 ####[facility]ITALNCLIA [id number] [place] [address] [place] Hemoglobin (Bld) [Mass/Vol] 13.5 g/dL Normal 13.0-17.0 [facility] Comment on above: Order Comment: Speci men Type: BLOOD SPECIMENOrdering Facility: [facility] Address: [address] [place] [address] Performed By: #### 5 7021-8 ####[facility]PITALWGREYLIA [id number] [place] [address] [place] Immature granulocytes (Bld) [#/Vol] 10*3/uL Normal <0.10 [facility] Comment on above: Order Comment: Speci men Type: BLOOD SPECIMENOrdering Facility: [facility] Address: [address] [place] [address] Performed By: #### 5 7021-8 ####[facility]OSPITALGREYLIA [id number] [place] [address] [place] Immature granulocytes/100 WBC (Bld) 0.3 % Normal [facility] Comment on above: Order Comment: Speci men Type: BLOOD SPECIMENOrdering Facility: [facility] Address: [address] [place] [address] Performed By: #### 5 7021-8 ####[facility] [id number] [place] [address] [place] Lymphocytes (Bld) [#/Vol] 1.04 10*3/uL Normal 1.00-4.00 [facility] Comment on above: Order Comment: Speci men Type: BLOOD SPECIMENOrdering Facility: [facility] Address: [address] [place] [address] Performed By: #### 5 7021-8 ####[facility] [id number] [place] [address] [place] Lymphocytes/100 WBC (Bld) 14.6 % Normal [facility] Comment on above: Order Comment: Speci men Type: BLOOD SPECIMENOrdering Facility: [facility] Address: [address] [place] [address] Performed By: #### 5 7021-8 ####[facility] [id number] [place] [address] [place] MCH (RBC) [Entitic mass] 27.7 pg Normal 26.0-34.0 [facility] Comment on above: Order Comment: Speci men Type: BLOOD SPECIMENOrdering Facility: [facility] Address: [address] [place] [address] Performed By: #### 5 7021-8 ####[facility] [id number] [place] [address] [place] MCHC (RBC) [Mass/Vol] 31.8 g/dL Normal 30.5-36.0 [facility] Comment on above: Order Comment: Speci men Type: BLOOD SPECIMENOrdering Facility: [facility] Address: [address] [place] [address] Performed By: #### 5 7021-8 ####[facility] [id number] [place] [address] [place] MCV (RBC) [Entitic vol] 87.1 fL Normal 80.0-100.0 C [facility] Comment on above: Order Comment: Speci men Type: BLOOD SPECIMENOrdering Facility: [facility] Address: [address] [place] [address] Performed By: #### 5 7021-8 ####[facility] [id number] [place] [address] [place] Monocytes (Bld) [#/Vol] 0.39 10*3/uL Normal <0.87 [facility] Comment on above: Order Comment: Speci men Type: BLOOD SPECIMENOrdering Facility: [facility] Address: [address] [place] [address] Performed By: #### 5 7021-8 ####[facility]ITALNCLIA [id number] [place] [address] [place] Monocytes/100 WBC (Bld) 5.5 % Normal C [facility] Comment on above: Order Comment: Speci men Type: BLOOD SPECIMENOrdering Facility: [facility] Address: [address] [place] [address] Performed By: #### 5 7021-8 ####[facility] HOSPITALNCA [id number] [place] [address] [place] Neutrophils (Bld) [#/Vol] 5.29 10*3/uL Normal 1.45-7.50 [facility] Comment on above: Order Comment: Speci men Type: BLOOD SPECIMENOrdering Facility: [facility] Address: [address] [place] [address] Performed By: #### 5 7021-8 ####[facility]ITALNCLIA [id number] [place] [address] [place] [facility] Neutrophils/100 WBC (Bld) 74.0 % Normal [facility] Comment on above: Order Comment: Speci men Type: BLOOD SPECIMENOrdering Facility: [facility] Address: [address] [place] [address] Performed By: #### 5 7021-8 ####[facility]ITALNCLI [id number] [place] [address] [place] Nucleated RBC (Bld) [#/Vol] 10*3/uL Normal <0.01 [facility] Comment on above: Order Comment: Speci men Type: BLOOD SPECIMENOrdering Facility: [facility] Address: [address] [place] [address] Performed By: #### 5 7021-8 ####[facility] [id number] [place] [address] [place] Nucleated RBC/100 WBC (Bld) [Ratio] 0.0 /100 WBC Normal [facility] Comment on above: Order Comment: Speci men Type: BLOOD SPECIMENOrdering Facility: [facility] Address: [address] [place] [address] Performed By: #### 5 7021-8 ####[facility] SYSTEMLIA [id number] [place] [address] [place] Platelet mean volume (Bld) [Entitic vol] 10.8 fL Normal 9.0-12.7 [facility] Comment on above: Order Comment: Speci men Type: BLOOD SPECIMENOrdering Facility: [facility] Address: [address] [place] [address] Performed By: #### 5 7021-8 ####[facility] SYSTEMLIA [id number] [place] [address] [place] Platelets (Bld) [#/Vol] 172 10*3/uL Normal 150-400 [facility] Comment on above: Order Comment: Speci men Type: BLOOD SPECIMENOrdering Facility: [facility] Address: [address] [place] [address] Performed By: #### 5 7021-8 ####[facility]OS[facility]ITALNCBRENT [id number] [place] [address] [place] RBC (Bld) [#/Vol] 4.87 10*6/uL Normal 4.20-6.00 [facility] Comment on above: Order Comment: Speci men Type: BLOOD SPECIMENOrdering Facility: [facility] Address: [address] [place] [address] Performed By: #### 5 7021-8 ####[facility] HOSPITALNCLIMeli [id number] [place] [address] [place] WBC (Bld) [#/Vol] 7.14 10*3/uL Normal 3.70-11.00 [facility] Comment on above: Order Comment: Speci men Type: BLOOD SPECIMENOrdering Facility: [facility] Address: [address] [place] [address] Performed By: #### 5 7021-8 ####[facility]ITALNCLIA [id number] [place] [address] [place] Comprehensive metabolic 2000 panelon 03-29-2024 Albumin [Mass/Vol] 4.0 g/dL Normal 3.9-4.9 [facility] Comment on above: Order Comment: Speci men Type: BLOOD SPECIMENOrdering Facility: [facility] Address: [address] [place] [address] Performed By: #### 2 4323-8 ####[facility] HOSPITALCristobalNCLIA [id number] [place] [address] [place] ALP [Catalytic activity/Vol] 98 U/L Normal 38-113 [facility] Comment on above: Order Comment: Speci men Type: BLOOD SPECIMENOrdering Facility: [facility] Address: [address] [place] [address] Performed By: #### 2 4323-8 ####[facility] MILLTOWNCLIA [id number] [place] [address] [place] ALT [Catalytic activity/Vol] 8 U/L Low 10-54 [facility] Comment on above: Order Comment: Speci men Type: BLOOD SPECIMENOrdering Facility: [facility] Address: [address] [place] [address] Performed By: #### 2 4323-8 ####[facility] HOSPITALNCLIA [id number] [place] [address] [place] Anion gap [Moles/Vol] 12 mmol/L Normal 8-15 [facility] Comment on above: Order Comment: Speci men Type: BLOOD SPECIMENOrdering Facility: [facility] Address: [address] [place] [address] Performed By: #### 2 4323-8 ####[facility]OSPITALNCLIA [id number] [place] [address] [place] AST [Catalytic activity/Vol] 10 U/L Low 14-40 [facility] Comment on above: Order Comment: Speci men Type: BLOOD SPECIMENOrdering Facility: [facility] Address: [address] [place] [address] Performed By: #### 2 4323-8 ####[facility] SYSTEMLIA [id number] [place] [address] [place] Bilirubin [Mass/Vol] 0.6 mg/dL Normal 0.2-1.3 [facility] Comment on above: Order Comment: Speci men Type: BLOOD SPECIMENOrdering Facility: [facility] Address: [address] [id number] Performed By: #### 2 4323-8 ####[facility] MILLTOWNCLIA [id number] [place] [address] [place] Calcium [Mass/Vol] 9.1 mg/dL Normal 8.5-10.2 [facility] Comment on above: Order Comment: Speci men Type: BLOOD SPECIMENOrdering Facility: [facility] Address: [address] [place] [address] Performed By: #### 2 4323-8 ####[facility] MILLTOWNCLIA [id number] [place] [address] [place] Chloride [Moles/Vol] 104 mmol/L Normal 98-107 [facility] Comment on above: Order Comment: Speci men Type: BLOOD SPECIMENOrdering Facility: [facility] Address: [address] [place] [address] Performed By: #### 2 4323-8 ####[facility] MILLWNCLIA [id number] [place] [address] [place] CO2 [Moles/Vol] 24 mmol/L Normal 22-30 [facility] Comment on above: Order Comment: Speci men Type: BLOOD SPECIMENOrdering Facility: [facility] Address: [address] [place] [address] Performed By: #### 2 4323-8 ####[facility] MILLTOWNCLIA [id number] [place] [address] [place] Creatinine [Mass/Vol] 1.01 mg/dL Normal 0.73-1.22 [facility] Comment on above: Order Comment: Speci men Type: BLOOD SPECIMENOrdering Facility: [facility] Address: [address] [place] [address] Performed By: #### 2 4323-8 ####[facility] MILLTOWNCLIA [id number] [place] [address] [place] Creatinine and Glomerular filtration rate.predicted panel (S/P/Bld) 73 mL/min/1.73m??? Normal >=60 [facility] Comment on above: Order Comment: Misti vega Type: BLOOD SPECIMENOrdering Facility: [facility] Address: [address] [place] [address] Result Comment: Kateryna mated Glomerular Filtration Rate (eGFR) is calculated using the 2020 CKD-EPI creatinine equation. This equation utilizes serum creatinine, sex, and age as parameters. The creatinine assay has traceable calibration to isotope dilution-mass spectrometry. Refer to KDIGO guidelines for clinical interpretation. In patients with unstable renal function, e.g. those with acute kidney injury, the eGFR may not accurately reflect actual GFR. Performed By: #### 2 4323-8 ####[facility] [id number] [place] [address] [place] Glucose [Mass/Vol] 173 mg/dL High 74-99 [facility] Comment on above: Order Comment: Misti vega Type: BLOOD SPECIMENOrdering Facility: [facility] Address: [address] [place] [address] Result Comment: The British Diabetes Association (ADA) provides guidance for cutoff values for fasting glucose and random glucose. The ADA defines fasting as no caloric intake for at least 8 hours. Fasting plasma glucose results between 100 to 125 mg/dL indicate increased risk for diabetes (prediabetes).Fasting plasma glucose results greater than or equal to 126 mg/dL meet the criteria for diagnosis of diabetes. In the absence of unequivocal hyperglycemia, results should be confirmed by repeat testing. In a patient with classic symptoms of hyperglycemia or hyperglycemic crisis, random plasma glucose results greater than or equal to 200 mg/dL meet the criteria for diagnosis of diabetes.Reference: Standards of Medical Care in Diabetes 2016, British Diabetes Association. Diabetes Care. 2016.39(Suppl 1). Performed By: #### 2 4323-8 ####[facility] [id number] [place] [address] [place] Potassium [Moles/Vol] 4.3 mmol/L Normal 3.7-5.1 [facility] Comment on above: Order Comment: Speci men Type: BLOOD SPECIMENOrdering Facility: [facility] Address: [address] [place] [address] Performed By: #### 2 4323-8 ####[facility]ITALNCLIA [id number] [place] [address] [place] Protein [Mass/Vol] 6.3 g/dL Normal 6.3-8.0 [facility] Comment on above: Order Comment: Speci men Type: BLOOD SPECIMENOrdering Facility: [facility] Address: [address] [place] [address] Performed By: #### 2 4323-8 ####[facility]ITALNC[facility] [id number] [place] [address] [place] Sodium [Moles/Vol] 140 mmol/L Normal 136-144 [facility] Comment on above: Order Comment: Speci men Type: BLOOD SPECIMENOrdering Facility: [facility] Address: [address] [place] [address] Performed By: #### 2 4323-8 ####[facility]ITALNCLIA [id number] [place] [address] [place] Urea nitrogen [Mass/Vol] 24 mg/dL Normal 9-24 [facility] Comment on above: Order Comment: Speci men Type: BLOOD SPECIMENOrdering Facility: [facility] Address: [address] [place] [address] Performed By: #### 2 4323-8 ####[facility] [id number] [place] [address] [place] HbA1c (Bld)on 03-29-2024 Average glucose Estimated from glycated hemoglobin (Bld) [Mass/Vol] 111 mg/dL Normal [facility] Comment on above: Order Comment: Speci men Type: BLOOD SPECIMENOrdering Facility: [facility] Address: [address] [place] [address] Result Comment: eAG: (Estimated average glucose) is a calculated value from HgbA1c and is brand representative of the average blood glucose level in the last 2-3 month period. Performed By: #### 5 5454-3 ####[facility] LABCLIA [id number] [place] [address] [place] HbA1c (Bld) [Mass fraction] 5.5 % Normal 4.3-5.6 [facility] Comment on above: Order Comment: Speci men Type: BLOOD SPECIMENOrdering Facility: [facility] Address: [address] [place] [address] Result Comment: Amer ican Diabetes Association guidelines indicate that patients with HgbA1c in the range 5.7-6.4% are at increased risk for development of diabetes, and intervention by lifestyle modification may be beneficial. HgbA1c greater or equal to 6.5% is considered diagnostic of diabetes. Performed By: #### 5 5454-3 ####[facility] LABIA [id number] [place] [address] [place] LIPID PANEL, NONFASTINGon Cholesterol [Mass/Vol] 143 mg/dL Normal <200 [facility] Comment on above: Order Comment: Speci men Type: BLOOD SPECIMENOrdering Facility: [facility] Address: [address] [place] [address] Result Comment: <200 mg/dL, Desirable 200-239 mg/dL, Borderline high>239 mg/dL, High Performed By: #### L IPNF, 3016-3 ####[facility] LABIA [id number] [place] [address] [place] HDL CHOLESTEROL, NF 36 mg/dL Low >39 [facility] Comment on above: Order Comment: Speci men Type: BLOOD SPECIMENOrdering Facility: [facility] Address: [address] [place] [address] Result Comment: 40-5 9 mg/dL, Acceptable>59 mg/dL, High: Negative risk factor for coronary heart disease<40 mg/dL, Low: Positive risk factor for coronary heart disease Performed By: #### L LORENZO, 6-3 ####[facility] LABCLIA [id number] [address] STATES OF [facility] LDL CHOLESTEROL, NF 79 mg/dL Normal <100 [facility] Comment on above: Order Comment: Misti men Type: BLOOD SPECIMENOrdering Facility: [facility] Address: [address] [place] [address] Result Comment: <100 mg/dL, Optimal 100-129 mg/dL, Near optimal/above optimal 130-159 mg/dL, Borderline high 160-189 mg/dL, High>189 mg/dL, Very highSecondary prevention optimal LDL Cholesterol levels are recommended to be < 70 mg/dL Performed By: #### L LORENZO, 3015- ####[facility] LABCLIA [id number] [address] [place] LDL/HDL RATIO, NF 2.19 mg/dL Normal <2.54 [facility] Comment on above: Order Comment: Misti vega Type: BLOOD SPECIMENOrdering Facility: [facility] Address: [address] [place] [address] Result Comment: Refe giovanni:1. National Cholesterol Education Program ATP III Guideline At-A-Glance Quick Desk Reference: National Heart, Lung, and Blood Menan. National Institutes of Health. 2001: NIH Publication No. 01-3305.2. An International Atherosclerosis Society position paper: global recommendations for the management of dyslipidemia: executive summary, Atherosclerosis. 2014: 232(2):410-413. Performed By: #### L LORENZO, 3015-3 ####[facility] LABCLIA [id number] [address] [place] NON HDL CHOL, NF 107 mg/dL Normal <130 [facility] Comment on above: Order Comment: Misti men Type: BLOOD SPECIMENOrdering Facility: [facility] Address: [address] [place] [address] Result Comment: <130 mg/dL, Optimal 130-159 mg/dL, Near optimal/above optimal 160-189 mg/dL, Borderline high 190-219 mg/dL, High>219 mg/dL, Very highSecondary prevention optimal non HDL Cholesterol levels are recommended to be <100 mg/dL Performed By: #### L IPNF, 3015-3 ####[facility] LABCLIA [id number] [place] [address] [place] T CHOL/HDL RATIO NF 3.97 mg/dL Normal <5.10 [facility] Comment on above: Order Comment: Speci men Type: BLOOD SPECIMENOrdering Facility: [facility] Address: [address] [place] [address] Performed By: #### L IPNF, 3015-08 ####[facility] LABCLIA [id number] [place] [address] [place] TRIGLYCERIDES, NF 142 mg/dL Normal <150 [facility] Comment on above: Order Comment: Speci men Type: BLOOD SPECIMENOrdering Facility: [facility] Address: [address] [place] [address] Result Comment: <150 mg/dL, Normal 150-199 mg/dL, Borderline high 200-499 mg/dL, High>499 mg/dL, Very high Performed By: #### L IPNF, 3015-08 ####[facility] LABCLIA [id number] [place] [address] [place] VLDL CHOLESTEROL, NF 28 mg/dL Normal <30 [facility] Comment on above: Order Comment: Speci men Type: BLOOD SPECIMENOrdering Facility: [facility] Address: [address] [place] [address] Performed By: #### L IPNF, 3015-3 ####[facility] LABCLIA [id number] [place] [address] [place] TSH SerPl-aCncon 03-29-2024 TSH Qn 0.829 m[IU]/L Normal 0.270-4.200 [facility] Comment on above: Order Comment: Speci men Type: BLOOD SPECIMENOrdering Facility: [facility] Address: [address] [place] [address] Performed By: #### L IPNF, 3016-3 ####[facility] LABCLIA [id number] [facility] [id number] [address] [place] CNOVon 03-10-2024 CNOV Normal [facility] CNCOon 03-09-2024 CNCO Letter Text Normal [facility] CNOVon 03-01-2024 CNOV Normal [facility] ANES POSTPROC EVALon 024 ANES POSTPROC EVAL HNO ID: [id number] Author: TONY RIVAS MD Service: Anesthesiology Author Type: Anesthesiologist Type: Anesthesia Postprocedure Evaluation Filed: 02/25/2024 11:39 Note Text: POST ANESTHESIA EVALUATION NOTE : 1940 Procedure Summary Date: 02/25/24 Room / Location: [place] OR01 / [place] Anesthesia Start: 903 Anesthesia Stop: 1024 Procedure: LAPAROSCOPIC CHOLECYSTECTOMY POSSIBLE OPEN (Abdomen) Diagnosis: Right upper quadrant abdominal pain Gall bladder stones (Right upper quadrant abdominal pain [R10.11]) (Gall bladder stones [K80.20]) Surgeons: Ange Verduzco MD Responsible Provider: Tony Rivas MD Anesthesia Type: general ASA Status: 3 Anesthesia Type: general Airway Type: ETT Last Vitals Vitals Value Taken Time BP 164/77 02/25/24 1135 Temp 36.4 ?C (97.5 ?F) 02/25/24 1135 Pulse 60 02/25/24 1135 Resp 11 02/25/24 1135 SpO2 94 % 02/25/24 1135 Post Anesthesia Patient Status Patient Evaluation: bedside. Anticipated Disposition: phase 2 then home. Neurological Status: aware and responsive. Pulmonary Status: breathing comfortably on room air Airway Control: returned to baseline unsupported. Cardiovascular Status: stable. Pain Management: clinically adequate Postoperative Hydration: acceptable. Intraoperative Events: no significant anesthesia events Post Operative Nausea/Vomiting Status: no significant post operative nausea or vomiting Recommendation: continue current plan of care. Anesthesia Observations No Documentation SIGNATURE: Tony Rivas MD PATIENT NAME: Regan rAango DATE: February 25, 2024 TIME: 11:38 AM CSN: [id number] [facility] ANES PRE-OPon 02-25-2024 ANES PRE-OP HNO ID: [id number] Author: TONY RIVAS MD Service: Anesthesiology Author Type: Anesthesiologist Type: Anesthesia Preprocedure Evaluation Filed: 02/25/2024 07:53 Note Text: ANESTHESIOLOGY DAY OF SURGERY NOTE : 1940 Procedure Information Date/Time: 02/25/24854 Procedure: LAPAROSCOPIC CHOLECYSTECTOMY POSSIBLE OPEN (Abdomen) Location: [place] OR01 / [place] Surgeons: Ange Verduzco MD Estimated body mass index is 39.14 kg/m? as calculated from the following: Height as of 02/11/24: 180.3 cm (5' 11). Weight as of 02/11/24: 127.3 kg (280 lb 9.6 oz). Most recent hematocrit and potassium results: Hematocrit 44.8 02/11/2024 Potassium 4.5 02/11/2024 Relevant Problems No relevant active problems I - PHYSICAL EVALUATION AIRWAY Patient intubated: No. Tracheostomy tube not present Mallampati: I. TM distance: >3 FB. Neck ROM: full ROM without neurological symptoms. Mouth opening: adequate. Short neck: no. Thick neck: no DENTAL Normal dental observations. Dental findings: missing tooth/teeth, poor dentition, broken tooth and chipped. II - ANESTHESIA PLAN ASA Score: 3 Anesthetic Plan: general Airway type: ETT The patient is not a current smoker. NPO Status: adequate Beta Danny Monitoring Plan Monitoring plan: standard ASA. Post Procedure Analgesic Plan Postoperative analgesic plan: parenteral or oral opioids and multimodal analgesia. Informed Consent Anesthetic risks, benefits, alternatives, personnel and consent discussed: yes. Patient / Responsible Constitution Party agrees to proceed: yes Patient / Surrogate agrees to blood products: blood products not planned DNR status not reviewed with patient and/or family prior to surgery. Significant changes in the patient condition since the History and Physical, not otherwise documented in primary service progress note: no. Potential Anesthesia issues that may suggest increased risk of complications or contraindication to planned procedure: none. Discussed the possibility of lip / dental damage: yes No vitals data found for the desired time range. Facility-Administere d Medications as of 02/25/2024 Medication Dose Route Frequency - lidocaine (PF) 10 mg/mL (1 %) 1-2 mg injection (XYLOCAINE) 0.1-0.2 mL INTRADERMAL PRN - lactated ringers iv infusion 5-30 mL/hr INTRAVENOUS CONTINUOUS - NaCl 0.9% iv flush bag 20 mL INTRAVENOUS PRN - ceFAZolin 3 g in D5W 100 mL (ANCEF) 3 g INTRAVENOUS Pre-Op Once - acetaminophen 1,000 mg tab(s) (TYLENOL) 1,000 mg ORAL Pre-Op Once - promethazine 12.5 mg tab(s) (PHENERGAN) 12.5 mg ORAL Pre-Op Once Outpatient Medications as of 02/25/2024 Medication Sig - nystatin (NYSTOP) powder Apply 1 application to affected area three times a day. - tamsulosin (FLOMAX) 0.4 mg TAKE 1 CAPSULE ONE TIME DAILY 30 MINUTES AFTER THE SAME MEAL EACH DAY - DULoxetine (CYMBALTA) 30 mg capsule Take 1 capsule by mouth once daily. - lisinopril 2.5 mg tablet Take 1 tablet by mouth once daily. - pravastatin (PRAVACHOL) 20 mg tablet Take 1 tablet by mouth once daily. - levothyroxine (LEVOXYL) 125 mcg tablet Take one tab daily Fri-Fri and two on Friday and FridayTake on empty stomach. For thyroid. - finasteride (PROSCAR) 5 mg tablet Take 1 tablet by mouth once daily. - traZODone (DESYREL) 50 mg tablet Take 1 tablet by mouth daily at bedtime. - potassium chloride ER (KLOR-CON M20) 20 mEq tablet Take 1 tablet by mouth once daily. - cyanocobalamin (VITAMIN B-12) 1,000 mcg tab Take 1 tablet by mouth once daily. - furosemide (LASIX) 20 mg tablet Take 1 tablet by mouth once daily. - clopidogrel (PLAVIX) 75 mg tablet Take 1 tablet by mouth once daily. - vit C/E/Zn/coppr/lutein/ zeaxan (PRESERVISION AREDS-2 ORAL) Take by mouth two times a day. - ZINC ORAL Take by mouth once daily. - multivitamins w-minerals/lut(CENTR UM SILVER TAB) Take by mouth. - Fluorouracil 5 % cream - COMPOUNDED PRESCRIPTION rollator walker #: one Dx: I63.50, Z86.73, R26.89, G60.9, M62.81 and M48.06 I have interviewed and examined the patient. I have reviewed the medical record and/or the pre-anesthesia evaluation, pertinent labs, and test results. This contains updated information obtained within 48 hours of Surgery/Procedure. SIGNATURE: Tony Rivas MD PATIENT NAME: Regan Arango DATE: February 25, 2024 TIME: 7:52 AM CSN: [id number] Normal [facility] HISTORY PHYSICALon HISTORY PHYSICAL HNO ID: [id number] Author: ANGE VERDUZCO MD Service: General Surgery Author Type: Physician Type: H&P Filed: 02/25/2024 08:29 Note Text: HISTORY AND PHYSICAL Regan Arango 1940 REFERRING PHYSICIAN: Jose Fam MD CHIEF COMPLAINT: Consult and Gallstones HPI: Regan is a 83 year old male with a complaint of right upper quadrant pain. TPatient was seen in [facility] ER on 01/03/2024 for lower right side abdominal pain. Patient had a CT/US of gallbladder previously and surgeon indicated that he didn't need to have his gallbladder removed. Labs Normal. CT in ER was normal. Patient was instructed to follow up on Dr. Lee for further workup of his gallbladder if he is still concerned. Notes indicate that patient was having tenderness much lower than his gallbladder. Patient has not follow up with Dr. Lee yet. My chart message from Patient: On Friday morning, January 02 I was in the ER at [facility] for the second time in less than two weeks due to being awakened by very sharp pain in my mid right side. After a CAT and Ultrasound the first visit, the culprit seemed to be my gallbladder. A surgeon viewed the ultrasound, did not believe surgery was indicated, but I was instructed to return to ER should the pain happen again. Thus the second visit. Different doctor who seemed spectacle about gallbladder, but suggested that I should see a surgeon for an test that measures the gallbladder function. The Lakhwinder named on my discharge papers is Dr. Stuart Willson [facility]. Do I need a referral from you for this appointment? Second ER doctor mentioned possible bowel gas. An observation: Several years ago a colonoscopy had to be stopped due to the presence of a twisted or thickened area of bowel that doctor didn't want to risk puncturing if test proceeded. Patient was seen in [facility] ER on 12/16/2023 for right upper quadrant pain. Though patient says today this was not in the RUQ it was in the right mid/lower abdomen. Per ER report the PE documents the pain as being RUQ. This recent episode was again during the night and awoken him from sleep with pain which he says was in the right mid lateral abdomen. No radiation from the back or into the groin. No nausea, vomiting or cold sweats with either of the two episodes. No diarrhea, hematochezia or melena. He can not say if he had eaten a meal at dinner that may of had fat in it. But says it was a meal like ones he has had in the past. In the ER report from 01/03/2024 there is no PE completed. In the medical decision making section, it says patient with right sided pain with right flank pain. CBC showed normal WBC at 8.8 and Hg of 13.5. plt were 186. CT negative or any acute findings. LFT's and lipase were normal. UA was negative for UTI or blood. Patient has not had any abdominal surgeries. The patient is being seen by me today at the request of Dr. Jose Fam MD for my opinion and advice regarding Right upper quadrant abdominal pain Gall bladder stones. SIGNIFICANT MEDICAL PROBLEMS: PAST MEDICAL HISTORY PAST MEDICAL HISTORY 09/08/2015: 1st degree AV block 08/09/2009: AC (acromioclavicular) joint arthritis 04/03/2015: Acquired hypothyroidism 03/08/2012: Actinic skin damage 07/13/2008: Acute, but ill-defined, cerebrovascular disease 03/21/2022: Advance directive discussed with patient Comment: Discussed 02/202207/24/2015: Anemia 10/30/2011: Arthritis of knee 05/28/2019: At risk for falls 02/03/2014: Atypical nevus of thoracic region 04/24/2014: Balance problem Comment: Due to CVA in 2008 and right leg weakness 12/27/2021: Bilateral carotid artery stenosis Comment: US 12/2021: R 40-60% L 20-40% 08/01/2014: Bilateral leg edema 09/07/2014: Bladder cancer (HCC) 03/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 07/13/2008: Cerebral artery occlusion with cerebral infarction (HCC) 03/08/2012: Phelan angioma 08/01/2014: Diastasis recti No date: Diverticulosis of colon (without mention of hemorrhage) 09/21/2012: Dupuytren's contracture of both hands 04/16/2010: Elevated fasting blood sugar No date: Essential hypertension Comment: Essential hypertension 06/02/2015: Familial peripheral neuropathy 04/29/2016: Gait difficulty 04/03/2015: Gastroesophageal reflux disease without esophagitis 03/20/2016: Greater trochanteric bursitis 09/04/2012: 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04/09/2023: History of bladder cancer 02/2008: History of CVA (cerebrovascular accident) Comment: residual weakness in right leg 03/29/2008: History of giant cell arteritis No date: Hx of long-term use of blood thinners 03/08/2012: Irritated//Inflamed Seborrheic Keratosis 03/21/2022: Living will on file Comment: DPA: Sudarshan () 01/13/2014: Low back pain 04/16/2022: Low serum vitamin B12 08/02/2014: Lower urinary tract symptoms (LUTS) 01/13/2014: Maile (more content not included)... Normal [facility] OPERATIVE NOon 02-25-2024 OPERATIVE NO HNO ID: [id number] Author: ANGE VERDUZCO MD Service: General Surgery Author Type: Physician Type: Operative Report Filed: 02/25/2024 10:24 Note Text: OPERATIVE/PROCEDURE REPORT LOG ID: [id number] SURGERY/PROCEDURE DATE: 02/25/2024 INCISION/PROCEDURE START TIME: 9:23 AM INCISION CLOSE/PROCEDURE END TIME: 10:16 AM SURGEON(S)/PROCEDURA LIST(S) AND ATTENDING RADIOLOGIST(S): Surgeons and Role: * Ange Verduzco MD - Primary Nurse Practitioner: Noemy Arce APRN.CNP Physician Manager Mortgage: Reshma Haynes PA-C SURGERY/PROCEDURE(S) : Laparoscopic cholecystectomy ANESTHESIA: General SURGERY/PROCEDURE DETAILS: Patient was brought in the operating room. Placed in the supine position. Under excellent general anesthetic the abdomen was sterilely prepped and draped in the usual fashion. Local was injected supraumbilically. Dissection was carried down to the fascia. Fascia was grasped with a Humble. Veress needle was placed inside the abdomen. The abdomen was insufflated to 15 torr. A 10/12 trocar was placed. The patient was placed on the head up and rotated to the left position. A subxiphoid #5 trocar was placed, inferior to this another #5 trocar, laterally and #5 trocar was placed. All of these were placed under direct visualization without injury to underlying structures. Patient had omentum in the colon plastered up there and I had a gradually bring this down gravity assisted with this. I grabbed the fundus of the gallbladder and retracted in a cephalad direction infundibulum and grasped and retracted laterally. I dissected out the cystic duct as well as the cystic artery and posteriorly. I placed hemoclips proximally and distally on the duct and ligated the duct. I placed hemoclips proximally and distally and ligated the artery. I deliver the gallbladder from the gallbladder bed with use of electrocautery I had no spillage of bile or stones. I placed it in a specimen bag and delivered it through the umbilical port. I reinflated the abdomen grabbed the falciform ligament retracted in a cephalad direction there was some oozing from the liver bed but I was easily able to control this with the argon beam safety equipment testing specialist. Once I had good hemostasis I placed powdered Surgicel into the wound I did not see any further bleeding. I removed all the trocars under direct visualization good my stasis was noted. Closed the fascia the umbilical port with a sqaxtd-ue-nooad stitch of 0 Vicryl skin incisions were closed with subcuticular stitches of 4-0 Monocryl. Steri-Strips were applied sterile dressings were applied and the patient tolerated the procedure well. Noemy Arce APRN.CNP was my cook's assistant. She assisted with retraction, visualization and performed skin closure. No additional surgeons or qualified residents were available. PRE-OP/PRE-PROCEDURE DIAGNOSIS: Chronic cholecystitis with cholelithiasis POST-OP/POST-PROCEDU RE DIAGNOSIS: Same as Preop ESTIMATED BLOOD LOSS: 40 mls SPECIMENS: Gallbladder IMPLANTABLE DEVICES: NONE DRAINS: None COMPLICATIONS: None CLOSURE TECHNIQUE: Primary PARTICIPATION IN SURGERY/PROCEDURE: I/primary surgeon/proceduralis t performed the procedure with assistance. SIGNATURE: Ange Verduzco III, MD PATIENT NAME: Regan Arango DATE: February 25, 2024 TIME: 10:20 AM Normal [facility] SURGICAL PATHOLOGYon 024 CASE REPORT Normal [facility] Comment on above: Order Comment: Speci men Type: TISSUE SPECIMEN Ordering Facility: [facility] Address: [address] [place] [address] Result Comment: Surg ica Pathology Report Case: [id number] Authorizing Provider: Ange Verduzco MD Collected: 02/25/2024 09:29 AM Ordering Location: [facility] Surgery Received: 02/25/2024 12:41 PM Pathologist: Kenney Barrios MD, PhD Specimen: Gallbladder, gallbladder Performed By: #### S #### [facility] CLIA [id number] [address] [place] [address] [place] CLINICAL HISTORY Normal [facility] Comment on above: Order Comment: Speci gary Type: TISSUE SPECIMEN Ordering Facility: [facility] Address: [address] [place] [address] Result Comment: Pre- op diagnosis: Right upper quadrant abdominal pain [R10.11] Gall bladder stones [K80.20] Performed By: #### S #### [facility] CLIA [id number] [address] [place] [address] [place] FINAL DIAGNOSIS Normal [facility] Comment on above: Order Comment: Speci gary Type: TISSUE SPECIMEN Ordering Facility: [facility] Address: [address] [place] [address] Result Comment: A. G allbladder, cholecystectomy: - Chronic cholecystitis with cholelithiasis. Performed By: #### S #### [facility] CLIA [id number] [address] [place] [address] [place] FINAL PERFORMING LAB Normal [facility] Comment on above: Order Comment: Speci men Type: TISSUE SPECIMEN Ordering Facility: [facility] Address: [address] [place] [address] Result Comment: Diag nostic interpretation performed at [facility], [address] [place] [address] CLIA# [id number] Assistant Broker: Abdullahi Marie M.D. Performed By: #### S #### [facility] CLIA [id number] [address] [place] [address] [place] GROSS DESCRIPTION A. Gallbladder Normal [facility] Comment on above: Order Comment: Speci men Type: TISSUE SPECIMEN Ordering Facility: [facility] Address: [address] [place] [address] Result Comment: Rece ived in formalin labeled gallbladder is a 8.5 x 3.5 x 1.4 cm previously incised gallbladder with a yellow-green serosa. The average wall thickness is 0.3 cm. The lumen contains yellow-green, gritty bile with black choleliths measuring up to 0.1 cm. The mucosa is vail, granular with minimal yellow stippling. The cystic duct margin is patent. Director Cloud Transformation sections submitted labeled A1. LG February 25, 2024 4:54 PM Gross examination performed at [facility], [address] [place] [address] Performed By: #### S #### [facility] CLIA [id number] [address] [place] [address] [place] US LEG VEIN DVT TIMOTHY VAS LABo n 02-19-2024 US LEG VEIN DVT TIMOTHY VAS LAB Normal [facility] ECG COMPLETEon 02-12-2024 Atrial Rate 63 BPM [facility] Calculated R Dulzura -22 degrees [facility] Calculated T Dulzura 51 degrees [facility] P-R Interval 440 ms [facility] QRS Duration 84 ms [facility] QT Interval 434 ms [facility] QTC Calculation (Bazett) 444 ms [facility] Ventricular Rate 63 BPM [facility] SINUS RHYTHM WITH 1ST DEGREE AV BLOCK WITH PREMATURE SUPRAVENTRICULAR COMPLEXES MINIMAL VOLTAGE CRITERIA FOR LVH, MAY BE NORMAL VARIANT BORDERLINE ECG Confirmed by MD FOWLER QARAB ([id number]) on 02/12/2024 11:43:07 AM [facility] NAME : REGAN ARANGO PID : [id number] : 1940 Gender : Male Race : ORD : Procedure Date : Feb 11 2024 15:33:50 Edit Date : Feb 12 2024 11:43:09 Diagnosis: SINUS RHYTHM WITH 1ST DEGREE AV BLOCK WITH PREMATURE SUPRAVENTRICULAR COMPLEXES MINIMAL VOLTAGE CRITERIA FOR LVH, MAY BE NORMAL VARIANT BORDERLINE ECG Confirmed by MD FOWLER QARAB ([id number]) on 02/12/2024 11:43:07 AM Test Reason : Location : 636 : [place] Overread By : MD FOWLER QARAB Edited By : MD FOWLER QARAB Referred By : ANGE VERDUZCO Acquired by : [place], [facility] CBC W Auto Differential pane l (Bld)on 02-11-2024 Basophils (Bld) [#/Vol] 0.09 10*3/uL [facility] Basophils/100 WBC (Bld) 0.9 % [facility] Differential cell count method Nom (Bld) Auto [facility] Eosinophils (Bld) [#/Vol] 0.20 10*3/uL [facility] Eosinophils/100 WBC (Bld) 2.1 % [facility] Erythrocyte distribution width (RBC) [Ratio] 16.4 % High 11.5 - 15.0 % [facility] Hematocrit (Bld) [Volume fraction] 44.8 % 39.0 - 51.0 % [facility] Hemoglobin (Bld) [Mass/Vol] 14.3 g/dL 13.0 - 17.0 g/dL [facility] Immature granulocytes (Bld) [#/Vol] 0.04 10*3/uL [facility] Immature granulocytes/100 WBC (Bld) 0.4 % [facility] Interpretation and review of laboratory results Abnormal [facility] Lymphocytes (Bld) [#/Vol] 1.18 10*3/uL [facility] Lymphocytes/100 WBC (Bld) 12.1 % [facility] MCH (RBC) [Entitic mass] 28.0 pg 26.0 - 34.0 pg [facility] MCHC (RBC) [Mass/Vol] 31.9 g/dL 30.5 - 36.0 g/dL [facility] MCV (RBC) [Entitic vol] 87.8 fL 80.0 - 100.0 fL [facility] Monocytes (Bld) [#/Vol] 0.70 10*3/uL [facility] Monocytes/100 WBC (Bld) 7.2 % [facility] Neutrophils (Bld) [#/Vol] 7.52 10*3/uL High [facility] Neutrophils/100 WBC (Bld) 77.3 % [facility] Nucleated RBC (Bld) [#/Vol] NINF [facility] Nucleated RBC/100 WBC (Bld) [Ratio] 0.0 % /100 WBC [facility] Platelet mean volume (Bld) [Entitic vol] 9.9 fL 9.0 - 12.7 fL [facility] Platelets (Bld) [#/Vol] 189 10*3/uL [facility] RBC (Bld) [#/Vol] 5.10 10*6/uL 4.20 - 6.0 0 m/uL [facility] WBC (Bld) [#/Vol] 9.73 10*3/uL [facility] Basophils (Bld) [#/Vol] 0.09 10*3/uL Normal <0.11 [facility] Comment on above: Order Comment: Speci men Type: BLOOD SPECIMENOrdering Facility: [facility] Address: [address] [place] [address] Performed By: #### 5 7021-8 ####[facility] [id number] [address] OF [facility] Basophils/100 WBC (Bld) 0.9 % Normal [facility] Comment on above: Order Comment: Speci men Type: BLOOD SPECIMENOrdering Facility: [facility] Address: [address] [place] [address] Performed By: #### 5 7021-8 ####[facility]ITAL[facility]YLIA [id number] [place] [address] [place] Differential cell count method Nom (Bld) Auto Normal [facility] Comment on above: Order Comment: Speci men Type: BLOOD SPECIMENOrdering Facility: [facility] Address: [address] [place] [address] Performed By: #### 5 7021-8 ####[facility] [id number] [place] [address] [place] Eosinophils (Bld) [#/Vol] 0.20 10*3/uL Normal <0.46 [facility] Comment on above: Order Comment: Speci men Type: BLOOD SPECIMENOrdering Facility: [facility] Address: [address] [place] [address] Performed By: #### 5 7021-8 ####[facility] [id number] [place] [address] [place] Eosinophils/100 WBC (Bld) 2.1 % Normal [facility] Comment on above: Order Comment: Speci men Type: BLOOD SPECIMENOrdering Facility: [facility] Address: [address] [place] [address] Performed By: #### 5 7021-8 ####[facility] [id number] [place] [address] [place] Erythrocyte distribution width (RBC) [Ratio] 16.4 % High 11.5-15.0 [facility] Comment on above: Order Comment: Speci men Type: BLOOD SPECIMENOrdering Facility: [facility] Address: [address] [place] [address] Performed By: #### 5 7021-8 ####[facility] [id number] [place] [address] [place] Hematocrit (Bld) [Volume fraction] 44.8 % Normal 39.0-51.0 [facility] Comment on above: Order Comment: Speci men Type: BLOOD SPECIMENOrdering Facility: [facility] Address: [address] [place] [address] Performed By: #### 5 7021-8 ####[facility] [id number] [place] [address] [place] Hemoglobin (Bld) [Mass/Vol] 14.3 g/dL Normal 13.0-17.0 [facility] Comment on above: Order Comment: Speci men Type: BLOOD SPECIMENOrdering Facility: [facility] Address: [address] [place] [address] Performed By: #### 5 7021-8 ####[facility] [id number] [place] [address] [place] Immature granulocytes (Bld) [#/Vol] 0.04 10*3/uL Normal <0.10 [facility] Comment on above: Order Comment: Speci men Type: BLOOD SPECIMENOrdering Facility: [facility] Address: [address] [place] [address] Performed By: #### 5 7021-8 ####[facility]ITALNCA [id number] [place] [address] [place] Immature granulocytes/100 WBC (Bld) 0.4 % Normal [facility] Comment on above: Order Comment: Speci men Type: BLOOD SPECIMENOrdering Facility: [facility] Address: [address] [place] [address] Performed By: #### 5 7021-8 ####[facility]ITALNCA [id number] [place] [address] [place] Lymphocytes (Bld) [#/Vol] 1.18 10*3/uL Normal 1.00-4.00 [facility] Comment on above: Order Comment: Speci men Type: BLOOD SPECIMENOrdering Facility: [facility] Address: [address] [place] [address] Performed By: #### 5 7021-8 ####[facility] CRYSTALCristobalNCJAVIERA [id number] [place] [address] [place] [facility] Lymphocytes/100 WBC (Bld) 12.1 % Normal [facility] Comment on above: Order Comment: Speci men Type: BLOOD SPECIMENOrdering Facility: [facility] Address: [address] [place] [address] Performed By: #### 5 7021-8 ####[facility] CRYSTALDOVERNCBRENT [id number] [place] [address] [place] MCH (RBC) [Entitic mass] 28.0 pg Normal 26.0-34.0 [facility] Comment on above: Order Comment: Speci men Type: BLOOD SPECIMENOrdering Facility: [facility] Address: [address] [place] [address] Performed By: #### 5 7021-8 ####[facility] HOSPITALNCJAVIERA [id number] [place] [address] [place] MCHC (RBC) [Mass/Vol] 31.9 g/dL Normal 30.5-36.0 [facility] Comment on above: Order Comment: Speci men Type: BLOOD SPECIMENOrdering Facility: [facility] Address: [address] [place] [address] Performed By: #### 5 7021-8 ####[facility] CRYSTALDOVERNCLIA [id number] [place] [address] [place] MCV (RBC) [Entitic vol] 87.8 fL Normal 80.0-100.0 C [facility] Comment on above: Order Comment: Speci men Type: BLOOD SPECIMENOrdering Facility: [facility] Address: [address] [place] [address] Performed By: #### 5 7021-8 ####[facility]ITALGREYACADIA [facility]ALTHC[facility] [id number] [place] [address] [place] Monocytes (Bld) [#/Vol] 0.70 10*3/uL Normal <0.87 [facility] Comment on above: Order Comment: Speci men Type: BLOOD SPECIMENOrdering Facility: [facility] Address: [address] [place] [address] Performed By: #### 5 7021-8 ####[facility] [id number] [place] [address] [place] Monocytes/100 WBC (Bld) 7.2 % Normal [facility] Comment on above: Order Comment: Speci men Type: BLOOD SPECIMENOrdering Facility: [facility] Address: [address] [place] [address] Performed By: #### 5 7021-8 ####[facility] [id number] [place] [address] [place] Neutrophils (Bld) [#/Vol] 7.52 10*3/uL High 1.45-7.50 [facility] Comment on above: Order Comment: Speci men Type: BLOOD SPECIMENOrdering Facility: [facility] Address: [address] [place] [address] Performed By: #### 5 7021-8 ####[facility] SYSTEMLIA [id number] [place] [address] [place] Neutrophils/100 WBC (Bld) 77.3 % Normal [facility] Comment on above: Order Comment: Speci men Type: BLOOD SPECIMENOrdering Facility: [facility] Address: [address] [place] [address] Performed By: #### 5 7021-8 ####[facility] SYSTEML[facility] [id number] [place] [address] [place] Nucleated RBC (Bld) [#/Vol] 10*3/uL Normal <0.01 [facility] Comment on above: Order Comment: Speci men Type: BLOOD SPECIMENOrdering Facility: [facility] Address: [address] [place] [address] Performed By: #### 5 7021-8 ####[facility] HOSPITALNCJAVIER [id number] [place] [address] [place] Nucleated RBC/100 WBC (Bld) [Ratio] 0.0 /100 WBC Normal [facility] Comment on above: Order Comment: Speci men Type: BLOOD SPECIMENOrdering Facility: [facility] Address: [address] [place] [address] Performed By: #### 5 7021-8 ####[facility]PITALNCLI [id number] [place] [address] [place] Platelet mean volume (Bld) [Entitic vol] 9.9 fL Normal 9.0-12.7 [facility] Comment on above: Order Comment: Speci men Type: BLOOD SPECIMENOrdering Facility: [facility] Address: [address] [place] [address] Performed By: #### 5 7021-8 ####[facility]ITALNCLIA [id number] [place] [address] [place] Platelets (Bld) [#/Vol] 189 10*3/uL Normal 150-400 [facility] Comment on above: Order Comment: Speci men Type: BLOOD SPECIMENOrdering Facility: [facility] Address: [address] [place] [address] Performed By: #### 5 7021-8 ####[facility]ITALNCLIA [id number] [place] [address] [place] RBC (Bld) [#/Vol] 5.10 10*6/uL Normal 4.20-6.00 [facility] Comment on above: Order Comment: Speci men Type: BLOOD SPECIMENOrdering Facility: [facility] Address: [address] [place], [place] [address] Performed By: #### 5 7021-8 ####[facility] HAIDER RJOASDOVERNCLIA [id number] [address] OF [facility] WBC (Bld) [#/Vol] 9.73 10*3/uL Normal 3.70-11.00 [facility] Comment on above: Order Comment: Speci men Type: BLOOD SPECIMENOrdering Facility: [facility] Address: [address] [place] [address] Performed By: #### 5 7021-8 ####[facility] HOSPITALNCLIMeli [id number] [address] OF [facility] Comprehensive metabolic 2000 panelOrdered By: Ronda Balderas on 02-11-2024 Albumin [Mass/Vol] 4.3 g/dL 3.9 - 4.9 g/dL [facility] ALP [Catalytic activity/Vol] 102 U/L 38 - 113 U/L [facility] ALT [Catalytic activity/Vol] 11 U/L 10 - 54 U/L [facility] Anion gap [Moles/Vol] 10 mmol/L 8 - 15 mmol/L [facility] AST [Catalytic activity/Vol] 12 U/L Low 14 - 40 U/L [facility] Bilirubin [Mass/Vol] 0.4 mg/dL 0.2 - 1 .3 mg/dL [facility] Calcium [Mass/Vol] 9.5 mg/dL 8.5 - 10. 2 mg/dL [facility] Chloride [Moles/Vol] 107 mmol/L 98 - 10 7 mmol/L [facility] CO2 [Moles/Vol] 24 mmol/L 22 - 30 mmol/L [facility] Creatinine [Mass/Vol] 0.92 mg/dL 0.73 - 1.22 mg/dL [facility] GFR/1.73 sq M.predicted among non-blacks MDRD (S/P/Bld) [Vol rate/Area] 82 mL/min/{1.73_m2} - PINF [facility] Comment on above: Estimated Glomerular Filtration Rate (eGFR) is calculated using the 2020 CKD-EPI creatinine equation. This equation utilizes serum creatinine, sex, and age as parameters. The creatinine assay has traceable calibration to isotope dilution-mass spectrometry. Refer to KDIGO guidelines for clinical interpretation. In patients with unstable renal function, e.g. those with acute kidney injury, the eGFR may not accurately reflect actual GFR. Glucose [Mass/Vol] 91 mg/dL 74 - 99 mg/dL [facility] Comment on above: The [place] Diabete s Association (ADA) provides guidance for cutoff values for fasting glucose and random glucose. The ADA defines fasting as no caloric intake for at least 8 hours. Fasting plasma glucose results between 100 to 125 mg/dL indicate increased risk for diabetes (prediabetes). Fasting plasma glucose results greater than or equal to 126 mg/dL meet the criteria for diagnosis of diabetes. In the absence of unequivocal hyperglycemia, results should be confirmed by repeat testing. In a patient with classic symptoms of hyperglycemia or hyperglycemic crisis, random plasma glucose results greater than or equal to 200 mg/dL meet the criteria for diagnosis of diabetes. Reference: Standards of Medical Care in Diabetes 2016, [employer] Diabetes Association. Diabetes Care. 2016.39(Suppl 1). Interpretation and review of laboratory results Abnormal [facility] Potassium [Moles/Vol] 4.5 mmol/L 3.7 - 5.1 mmol/L [facility] Protein [Mass/Vol] 6.8 g/dL 6.3 - 8.0 g/dL [facility] Sodium [Moles/Vol] 141 mmol/L 136 - 144 mmol/L [facility] Urea nitrogen [Mass/Vol] 26 mg/dL High 9 - 24 mg/dL [facility] Comprehensive metabolic 2000 panelon 02-11-2024 Albumin [Mass/Vol] 4.3 g/dL Normal 3.9-4.9 [facility] Comment on above: Order Comment: Speci men Type: BLOOD SPECIMENOrdering Facility: [facility] Address: [facility] [place] [address] Performed By: #### 2 4323-8 ####[facility]ASHLEY [id number] [place] [address] [place] ALP [Catalytic activity/Vol] 102 U/L Normal 38-113 [facility] Comment on above: Order Comment: Speci men Type: BLOOD SPECIMENOrdering Facility: [facility] Address: [address] [place] [address] Performed By: #### 2 4323-8 ####[facility] HAIDER MILLTOWNCLIA [id number] [place] [address] [place] ALT [Catalytic activity/Vol] 11 U/L Normal 10-54 [facility] Comment on above: Order Comment: Speci men Type: BLOOD SPECIMENOrdering Facility: [facility] Address: [address] [place] [address] Performed By: #### 2 4323-8 ####[facility] MILLTOWNCLIA [id number] [place] [address] [place] Anion gap [Moles/Vol] 10 mmol/L Normal 8-15 [facility] Comment on above: Order Comment: Speci men Type: BLOOD SPECIMENOrdering Facility: [facility] Address: [address] [place] [address] Performed By: #### 2 4323-8 ####[facility] HAIDER MILLTOWNCLIA [id number] [place] [address] [place] AST [Catalytic activity/Vol] 12 U/L Low 14-40 [facility] Comment on above: Order Comment: Speci men Type: BLOOD SPECIMENOrdering Facility: [facility] Address: [address] [place] [address] Performed By: #### 2 4323-8 ####[facility] HAIDER MILLTOWNCLIA [id number] [place] [address] [place] Bilirubin [Mass/Vol] 0.4 mg/dL Normal 0.2-1.3 [facility] Comment on above: Order Comment: Speci men Type: BLOOD SPECIMENOrdering Facility: [facility] Address: [address] [place] [address] Performed By: #### 2 4323-8 ####[facility]ITALWNCLIA [id number] [place] [address] [place] Calcium [Mass/Vol] 9.5 mg/dL Normal 8.5-10.2 [facility] Comment on above: Order Comment: Speci men Type: BLOOD SPECIMENOrdering Facility: [facility] Address: [address] [place] [address] Performed By: #### 2 4323-8 ####[facility] MILLWNCLIA [id number] [place] [address] [place] Chloride [Moles/Vol] 107 mmol/L Normal 98-107 [facility] Comment on above: Order Comment: Speci men Type: BLOOD SPECIMENOrdering Facility: [facility] Address: [address] [place] [address] Performed By: #### 2 4323-8 ####[facility] SYSTEMLIA [id number] [place] [address] [place] CO2 [Moles/Vol] 24 mmol/L Normal 22-30 [facility] Comment on above: Order Comment: Speci men Type: BLOOD SPECIMENOrdering Facility: [facility] Address: [address] [place] [address] Performed By: #### 2 4323-8 ####[facility]ITALWNCLIA [id number] [place] [address] [place] Creatinine [Mass/Vol] 0.92 mg/dL Normal 0.73-1.22 [facility] Comment on above: Order Comment: Speci men Type: BLOOD SPECIMENOrdering Facility: [facility] Address: [address] [place] [address] Performed By: #### 2 4323-8 ####[facility]ITALWNCLIA [id number] [place] [address] [place] Creatinine and Glomerular filtration rate.predicted panel (S/P/Bld) 82 mL/min/1.73m??? Normal >=60 [facility] Comment on above: Order Comment: Misti vega Type: BLOOD SPECIMENOrdering Facility: [facility] Address: [address] [place] [address] Result Comment: Kateryna mated Glomerular Filtration Rate (eGFR) is calculated using the 2020 CKD-EPI creatinine equation. This equation utilizes serum creatinine, sex, and age as parameters. The creatinine assay has traceable calibration to isotope dilution-mass spectrometry. Refer to KDIGO guidelines for clinical interpretation. In patients with unstable renal function, e.g. those with acute kidney injury, the eGFR may not accurately reflect actual GFR. Performed By: #### 2 4323-8 ####[facility] [id number] [place] [address] [place] Glucose [Mass/Vol] 91 mg/dL Normal 74-99 [facility] Comment on above: Order Comment: Misti vega Type: BLOOD SPECIMENOrdering Facility: [facility] Address: [address] [place] [address] Result Comment: The [place] Diabetes Association (ADA) provides guidance for cutoff values for fasting glucose and random glucose. The ADA defines fasting as no caloric intake for at least 8 hours. Fasting plasma glucose results between 100 to 125 mg/dL indicate increased risk for diabetes (prediabetes).Fasting plasma glucose results greater than or equal to 126 mg/dL meet the criteria for diagnosis of diabetes. In the absence of unequivocal hyperglycemia, results should be confirmed by repeat testing. In a patient with classic symptoms of hyperglycemia or hyperglycemic crisis, random plasma glucose results greater than or equal to 200 mg/dL meet the criteria for diagnosis of diabetes.Reference: Standards of Medical Care in Diabetes 2016, [employer] Diabetes Association. Diabetes Care. 2016.39(Suppl 1). Performed By: #### 2 4323-8 ####[facility] [id number] [place] [address] [place] Potassium [Moles/Vol] 4.5 mmol/L Normal 3.7-5.1 [facility] Comment on above: Order Comment: Speci men Type: BLOOD SPECIMENOrdering Facility: [facility] Address: [address] [place], [place] [address] Performed By: #### 2 4323-8 ####[facility] CRYSTALCristobalNCLIA [id number] [place] [address] [place] Protein [Mass/Vol] 6.8 g/dL Normal 6.3-8.0 [facility] Comment on above: Order Comment: Speci men Type: BLOOD SPECIMENOrdering Facility: [facility] Address: [address] [place] [address] Performed By: #### 2 4323-8 ####[facility]ITALNCLIA [id number] [place] [address] [place] Sodium [Moles/Vol] 141 mmol/L Normal 136-144 [facility] Comment on above: Order Comment: Speci men Type: BLOOD SPECIMENOrdering Facility: [facility] Address: [address] [place] [address] Performed By: #### 2 4323-8 ####[facility]ITALNCLIA [id number] [place] [address] [place] Urea nitrogen [Mass/Vol] 26 mg/dL High 9-24 [facility] Comment on above: Order Comment: Speci men Type: BLOOD SPECIMENOrdering Facility: [facility] Address: [address] [place] [address] Performed By: #### 2 4323-8 ####[facility]ITALNCLIA [id number] [place] [address] [place] [id number] 02-11-2024 ECG01 Normal [facility] HISTORY PHYSICALon HISTORY PHYSICAL Normal [facility] CNPNon 02-09-2024 CNPN Normal [facility] CNOVon 01-26-2024 CNOV Normal [facility] CNOVon 01-20-2024 CNOV Normal [facility] CNPNon 01-16-2024 CNPN Normal [facility] NM Biliary ducts and Gallbla dder Views for patency of biliary structures and ejection fraction W sincalide and W radionuclide Marley 01-16-2024 IMPRESSION: No evidence of acute cholecystitis. Normal gallbladder ejection fraction. Sterile Process Coordinator: JAVY Transcribe Date/Time: Jan 16 2024 3:36P Dictated by : NA DOBBINS MD This examination was interpreted and the report reviewed and electronically signed by: CHRISTIANO LANG MD on Jan 16 2024 3:52PM [facility] DIVISION OF RADIOLOGY * * *Final Report* * * DATE OF EXAM: Jan 16 2024 2:40PM WON 0021 - NM HEPATOBILIARY W EF AND/OR RX / PROCEDURE REASON: multiple diagnoses * * * * Physician Interpretation * * * * EXAMINATION: HEPATOBILIARY SCAN WITH GALLBLADDER EJECTION FRACTION CLINICAL HISTORY: Right upper quadrant abdominal pain Gall bladder stones Calculus of gallbladder without cholecystitis without obstruction . TECHNIQUE: 5.2 millicuries of Tc-99m Choletec administered IV. Dynamic planar imaging of the abdomen acquired for 60 minutes. Next, 2.6 micrograms of CCK was administered IV followed by additional imaging to calculate a gallbladder ejection fraction. CORRELATION: CT abdomen/pelvis 02/22/2021 RESULT: Liver: Within normal limits. Gallbladder: Activity present by one hour, indicating cystic duct patency. * Ejection fraction (EF): 76% (normal > 35% and < 80%) CBD: Faint activity present in the proximal small bowel by 1 hour, indicating patency. Other: No enterogastric reflux. DIVISION OF RADIOLOGY Provider, [facility] - 01/16/2024 * * *Final Report* * * DATE OF EXAM: Jan 16 2024 2:40PM WON 0021 - NM HEPATOBILIARY W EF AND/OR RX / PROCEDURE REASON: multiple diagnoses * * * * Physician Interpretation * * * * EXAMINATION: HEPATOBILIARY SCAN WITH GALLBLADDER EJECTION FRACTION CLINICAL HISTORY: Right upper quadrant abdominal pain Gall bladder stones Calculus of gallbladder without cholecystitis without obstruction . TECHNIQUE: 5.2 millicuries of Tc-99m Choletec administered IV. Dynamic planar imaging of the abdomen acquired for 60 minutes. Next, 2.6 micrograms of CCK was administered IV followed by additional imaging to calculate a gallbladder ejection fraction. CORRELATION: CT abdomen/pelvis 02/22/2021 RESULT: Liver: Within normal limits. Gallbladder: Activity present by one hour, indicating cystic duct patency. * Ejection fraction (EF): 76% (normal > 35% and < 80%) CBD: Faint activity present in the proximal small bowel by 1 hour, indicating patency. Other: No enterogastric reflux. IMPRESSION IMPRESSION: No evidence of acute cholecystitis. Normal gallbladder ejection fraction. Sterile Process Coordinator: PSCB Transcribe Date/Time: Jan 16 2024 3:36P Dictated by : NA DOBBINS MD This examination was interpreted and the report reviewed and electronically signed by: CHRISTIANO LANG MD on Jan 16 2024 3:52PM EST [facility] Radiology Study observation (narrative) [facility] NM Biliary ducts and Gallbla dder Views for patency of biliary structures and ejection fraction W sincalide and W radionuclide IVOrdered By: [facility] Provider on 01-16-2024 [facility] NM HEPATOBILIARY W EF AND/OR RXon 01-16-2024 NM HEPATOBILIARY W EF AND/OR RX Normal [facility] CNOVon 01-13-2024 CNOV Normal [facility] CNOVon 01-07-2024 CNOV Normal [facility] Abdomen/Pelvis W IV Cont ONL Yon 01-03-2024 Abdomen/Pelvis W IV Cont ONLY Normal [facility] CBC W/Diff, Automatedon 12-21 Absolute Lymph 1.56 X10 3/uL Normal 0.83-4.51 [facility] Comment on above: Performed By: #### L 501.2450, L100.0100, L500.4050 ####[facility] [address] [place], [address] Absolute Neut 6.2 X10 3/uL Normal 2.0-7.7 [facility] Comment on above: Performed By: #### L 501.2450, L100.0100, L500.4050 ####[facility] [address] [place], [address] Basophils/100 WBC (Bld) 1.1 % High 0-1 [facility] Comment on above: Performed By: #### L 501.2450, L100.0100, L500.4050 ####[facility] [address] [place], [address] Eosinophils/100 WBC (Bld) 4.2 % Normal 0-5 [facility] Comment on above: Performed By: #### L 501.2450, L100.0100, L500.4050 ####[facility] [address] [place], [address] Erythrocyte distribution width (RBC) [Ratio] 15.9 % High 11.6-14.6 [facility] Comment on above: Performed By: #### L 501.2450, L100.0100, L500.4050 ####[facility] [address] [place], [address] Hematocrit (Bld) [Volume fraction] 44.1 % Normal 40-54 [facility] Comment on above: Performed By: #### L 501.2450, L100.0100, L500.4050 ####[facility] [address] [place], [address] Hemoglobin (Bld) [Mass/Vol] 13.5 g/dL Normal 13.0-16.5 [facility] Comment on above: Performed By: #### L 501.2450, L100.0100, L500.4050 ####[facility] [address] [place], [address] IG% 0.600 Normal 0.0-0.9 [facility] Comment on above: Result Comment: IG% - Immature Granulocytes (promyelocytes, myelocytes andmetamyelocytes) > 1% indicates that a LEFT SHIFT is Present. Performed By: #### L 501.2450, L100.0100, L500.4050 ####[facility] [address] [place], [address] Lymphocytes/100 WBC (Bld) 17.6 % Low 19-41 [facility] Comment on above: Performed By: #### L 501.2450, L100.0100, L500.4050 ####[facility] [address] [place], [address] MCH (RBC) [Entitic mass] 27.3 pg Normal 27.0-32.0 [facility] Comment on above: Performed By: #### L 501.2450, L100.0100, L500.4050 ####[facility] [address] [place], [address] MCHC (RBC) [Mass/Vol] 30.6 g/dL Low 32-36 [facility] Comment on above: Performed By: #### L 501.2450, L100.0100, L500.4050 ####[facility] [address] [place], [address] MCV (RBC) [Entitic vol] 89.3 fL Normal 80-94 [facility] Comment on above: Performed By: #### L 501.2450, L100.0100, L500.4050 ####[facility] [address] [place], [address] Monocytes/100 WBC (Bld) 6.6 % Normal 0-10 [facility] Comment on above: Performed By: #### L 501.2450, L100.0100, L500.4050 ####[facility] [address] [place], [address] Neutrophils/100 WBC (Bld) 69.9 % Normal 47-70 [facility] Comment on above: Performed By: #### L 501.2450, L100.0100, L500.4050 ####[facility] [address] [place], [address] Nucleated RBC (Bld) [#/Vol] 0 10*3/uL Normal 0-5 [facility] Comment on above: Performed By: #### L 501.2450, L100.0100, L500.4050 ####[facility] [address] [place], [address] Platelet mean volume (Bld) [Entitic vol] 10.2 fL Normal 6.2-12.0 [facility] Comment on above: Performed By: #### L 501.2450, L100.0100, L500.4050 ####[facility] [address] [place], [address] Platelets (Bld) [#/Vol] 186 10*3/uL Normal 150-450 [facility] Comment on above: Performed By: #### L 501.2450, L100.0100, L500.4050 ####[facility] [address] [place], [address] RBC (Bld) [#/Vol] 4.94 10*6/uL Normal 4.6-6.2 [facility] Comment on above: Performed By: #### L 501.2450, L100.0100, L500.4050 ####[facility] [address] [place], [address] RDW SD 51.8 fl High 35.1-43.9 [facility] Comment on above: Performed By: #### L 501.2450, L100.0100, L500.4050 ####[facility] [address] [place], [address] WBC (Bld) [#/Vol] 8.8 10*3/uL Normal 4.4-11.0 [facility] Comment on above: Performed By: #### L 501.2450, L100.0100, L500.4050 ####[facility] [address] [place], [address] Comprehensive Metabolic Prof toby 01-03-2024 Albumin [Mass/Vol] 3.4 g/dL Normal 3.2-5.0 [facility] Comment on above: Performed By: #### L 501.2450, L100.0100, L500.4050 ####[facility] [address] [place], [address] Albumin/Globulin [Mass ratio] 1.1 {ratio} Normal 0.9-2.4 [facility] Comment on above: Performed By: #### L 501.2450, L100.0100, L500.4050 ####[facility] [address] [place], [address] ALK P 86 U/L Normal 45-117 [facility] Comment on above: Performed By: #### L 501.2450, L100.0100, L500.4050 ####[facility] [address] [place], [address] ALT [Catalytic activity/Vol] 13 U/L Low 16-61 [facility] Comment on above: Performed By: #### L 501.2450, L100.0100, L500.4050 ####[facility] [address] [place], [address] AST [Catalytic activity/Vol] 13 U/L Low 15-37 [facility] Comment on above: Performed By: #### L 501.2450, L100.0100, L500.4050 ####[facility] [address] [place], [address] Bilirubin [Mass/Vol] 0.50 mg/dL Normal 0.20-1.00 [facility] Comment on above: Result Comment: For patients on eltrombopag therapy, use of Dimension [place] TBIL is not recommended. Performed By: #### L 501.2450, L100.0100, L500.4050 ####[facility] [address] [place], [address] BUN/CRE 25.7 RATIO High 10-20 [facility] Comment on above: Performed By: #### L 501.2450, L100.0100, L500.4050 ####[facility] [address] [place], [address] CA,Total 9.0 mg/dL Normal 8.5-10.1 [facility] Comment on above: Performed By: #### L 501.2450, L100.0100, L500.4050 ####[facility] [address] [place], [address] Chloride [Moles/Vol] 108 mmol/L High 98-107 [facility] Comment on above: Performed By: #### L 501.2450, L100.0100, L500.4050 ####[facility] [address] [place], [address] CO2 [Moles/Vol] 30.0 mmol/L Normal 21.0-32.0 [facility] Comment on above: Performed By: #### L 501.2450, L100.0100, L500.4050 ####[facility] [address] [place], [address] Creatinine [Mass/Vol] 0.97 mg/dL Normal 0.70-1.30 [facility] Comment on above: Result Comment: The validity of the calculated GFR GFRAA in patients over70 years has not been determined. Clinical correlation isessential. Performed By: #### L 501.2450, L100.0100, L500.4050 ####[facility] [address] [place], [address] ECRCL 77.86 ml/min Normal [facility] Comment on above: Performed By: #### L 501.2450, L100.0100, L500.4050 ####[facility] [address] [place], [address] EST GFR - AA 95 mL/min Normal >60 [facility] Comment on above: Result Comment: Afri can [place] GFR Calc Performed By: #### L 501.2450, L100.0100, L500.4050 ####[facility] [address] [place], [address] GAP 3 Low 5-15 [facility] Comment on above: Performed By: #### L 501.2450, L100.0100, L500.4050 ####[facility] [address] [place], [address] GFR/1.73 sq M.predicted among non-blacks MDRD (S/P/Bld) [Vol rate/Area] 78 mL/min/{1.73_m2} Normal >60 [facility] Comment on above: Result Comment: Non- GFR Calc Performed By: #### L 501.2450, L100.0100, L500.4050 ####[facility] [address] [place], [address] Globulin (S) [Mass/Vol] 3.0 g/dL Normal 2.2-4.2 [facility] Comment on above: Performed By: #### L 501.2450, L100.0100, L500.4050 ####[facility] [address] [place], [address] Glucose [Mass/Vol] 121 mg/dL High 74-106 [facility] Comment on above: Result Comment: Fast ing Glucose result from 100 to 125 mg/dLsuggests IMPAIRED HOMEOSTASIS per A.D.A. criteria. Performed By: #### L 501.2450, L100.0100, L500.4050 ####[facility] [address] [place], [address] Potassium [Moles/Vol] 4.0 mmol/L Normal 3.5-5.1 [facility] Comment on above: Performed By: #### L 501.2450, L100.0100, L500.4050 ####[facility] [address] [place], [address] Sodium [Moles/Vol] 141 mmol/L Normal 136-145 [facility] Comment on above: Performed By: #### L 501.2450, L100.0100, L500.4050 ####[facility] [address] [place], [address] T PROT 6.4 g/dL Normal 6.4-8.2 [facility] Comment on above: Performed By: #### L 501.2450, L100.0100, L500.4050 ####[facility] [address] [place], [address] Urea nitrogen [Mass/Vol] 25 mg/dL High 7-18 [facility] Comment on above: Performed By: #### L 501.2450, L100.0100, L500.4050 ####[facility] [address] [place], [address] Emergency Department Summary on 01-03-2024 Emergency Department Summary Normal [facility] Lipaseon 01-03-2024 Lipase [Catalytic activity/Vol] 66 U/L Normal 13-75 [facility] Comment on above: Result Comment: Siva hernandez note:LIPASE revised reference range effective 22.New Lipase methodology. Expected to produce lower valuesthan the previous assay method.NEW Reference Range: 13 - 75 U/L Performed By: #### L 501.2450, L100.0100, L500.4050 ####[facility] [address] [place], [address] Urinalysis, Completeon 01-02 BACTERIA 0 SEEN Normal None Seen [facility] Comment on above: Order Comment: COLLE CTOR TO SPECIFY Performed By: #### L 400.0001 ####[facility] [address] [place], [address] EPI,SQUAMOUS 0 SEEN Normal 0-5 [facility] Comment on above: Order Comment: GUZMAN CTOR TO SPECIFY Performed By: #### L 400.0001 ####[facility] [address] [place], [address] Mucus Ql (Urine sed) 0 SEEN Normal [facility] Comment on above: Order Comment: GUZMAN CTOR TO SPECIFY Performed By: #### L 400.0001 ####[facility] [address] [place], [address] RBC 0 SEEN Normal 0-5 [facility] Comment on above: Order Comment: GUZMAN CTOR TO SPECIFY Performed By: #### L 400.0001 ####[facility] [address] [place], [address] WBC 0 SEEN Normal 0-[address] [place] [address] Comment on above: Order Comment: GUZMAN CTOR TO SPECIFY Performed By: #### L 400.0001 ####[facility] [address] [place], [address] CNPNon 12-31-2023 CNPN Normal [facility] CNPNon 12-28-2023 CNPN Normal [facility] Bacteria Wnd Culton 12-27-19 24 Bacteria identified Cx Nom (Wound) ORGANISM ID: 2 Rare Roseomonas mucosa No further workup ORGANISM ID: 3 Rare skin edison GRAM STAIN: No organisms seen No Polymorphonuclear Leukocytes Abnormal [facility] Comment on above: Performed By: #### 6 462-6 ####[facility] LABCLIA [id number] [facility] [id number] [place] [address] [place] CNOVon 12-27-2023 CNOV Normal [facility] HSV+VZV DNA ERNIE+probe Ql (Un sp spec)on 12-27-2023 HSV 1 DNA ERNIE+probe Ql (Unsp spec) Not detected Normal Not Detected [facility] Comment on above: Order Comment: Speci men Type: SWABOrdering Facility: [facility] Address: [address] [place] [address] Performed By: #### 3 3027-4 ####[facility] LABCLIA [id number] [place] [address] [place] HSV 2 DNA ERNIE+probe Ql (Unsp spec) Not detected Normal Not Detected [facility] Comment on above: Order Comment: Speci men Type: SWABOrdering Facility: [facility] Address: [address] [place] [address] Performed By: #### 3 3027-4 ####[facility] LABCLIA [id number] [place] [address] [place] VZV DNA ERNIE+probe Ql (Unsp spec) Not detected Normal Not Detected [facility] Comment on above: Order Comment: Speci men Type: SWABOrdering Facility: [facility] Address: [address] [place] [address] Performed By: #### 3 3027-4 ####[facility] LABCLIA [id number] [place] [address] [place] Abdomen/Pelvis WITH Contrast on 12-16-2023 Abdomen/Pelvis WITH Contrast Normal [facility] CBC W/Diff, Automatedon 11-22 Basophils/100 WBC (Bld) 1.0 % Normal 0-1 [facility] Comment on above: Order Comment: RESUL T(S) PREVIOUSLY REPORTED ON MANUAL REQUISITION DURINGDOWNTIME. Performed By: #### L 500.4050, L501.2450, L100.0100 ####[facility] [address] [place], [address] Eosinophils/100 WBC (Bld) 5.1 % High 0-5 [facility] Comment on above: Order Comment: RESUL T(S) PREVIOUSLY REPORTED ON MANUAL REQUISITION DURINGDOWNTIME. Performed By: #### L 500.4050, L501.2450, L100.0100 ####[facility] [address] [place], [address] Erythrocyte distribution width (RBC) [Ratio] 15.8 % High 11.6-14.6 [facility] Comment on above: Order Comment: RESUL T(S) PREVIOUSLY REPORTED ON MANUAL REQUISITION DURINGDOWNTIME. Performed By: #### L 500.4050, L501.2450, L100.0100 ####[facility] [address] [place], [address] Hematocrit (Bld) [Volume fraction] 42.2 % Normal 40-54 [facility] Comment on above: Order Comment: RESUL T(S) PREVIOUSLY REPORTED ON MANUAL REQUISITION DURINGDOWNTIME. Performed By: #### L 500.4050, L501.2450, L100.0100 ####[facility] [address] [place], [address] Hemoglobin (Bld) [Mass/Vol] 13.5 g/dL Normal 13.0-16.5 [facility] Comment on above: Order Comment: RESUL T(S) PREVIOUSLY REPORTED ON MANUAL REQUISITION DURINGDOWNTIME. Performed By: #### L 500.4050, L501.2450, L100.0100 ####[facility] [address] [place], [address] IG% 0.400 Normal 0.0-0.9 [facility] Comment on above: Order Comment: RESUL T(S) PREVIOUSLY REPORTED ON MANUAL REQUISITION DURINGDOWNTIME. Result Comment: IG% - Immature Granulocytes (promyelocytes, myelocytes andmetamyelocytes) > 1% indicates that a LEFT SHIFT is Present. Performed By: #### L 500.4050, L501.2450, L100.0100 ####[facility] [address] [place], [address] Lymphocytes/100 WBC (Bld) 13.7 % Low 19-41 [facility] Comment on above: Order Comment: RESUL T(S) PREVIOUSLY REPORTED ON MANUAL REQUISITION DURINGDOWNTIME. Performed By: #### L 500.4050, L501.2450, L100.0100 ####[facility] [address] [place], [address] MCH (RBC) [Entitic mass] 28.5 pg Normal 27.0-32.0 [facility] Comment on above: Order Comment: RESUL T(S) PREVIOUSLY REPORTED ON MANUAL REQUISITION DURINGDOWNTIME. Performed By: #### L 500.4050, L501.2450, L100.0100 ####[facility] [address] [place], [address] MCHC (RBC) [Mass/Vol] 32.0 g/dL Normal 32-36 [facility] Comment on above: Order Comment: RESUL T(S) PREVIOUSLY REPORTED ON MANUAL REQUISITION DURINGDOWNTIME. Performed By: #### L 500.4050, L501.2450, L100.0100 ####[facility] [address] [place], [address] MCV (RBC) [Entitic vol] 89.2 fL Normal 80-94 [facility] Comment on above: Order Comment: RESUL T(S) PREVIOUSLY REPORTED ON MANUAL REQUISITION DURINGDOWNTIME. Performed By: #### L 500.4050, L501.2450, L100.0100 ####[facility] [address] [place], [address] Monocytes/100 WBC (Bld) 7.3 % Normal 0-10 [facility] Comment on above: Order Comment: RESUL T(S) PREVIOUSLY REPORTED ON MANUAL REQUISITION DURINGDOWNTIME. Performed By: #### L 500.4050, L501.2450, L100.0100 ####[facility] [address] [place], [address] Neutrophils/100 WBC (Bld) 72.5 % High 47-70 [facility] Comment on above: Order Comment: RESUL T(S) PREVIOUSLY REPORTED ON MANUAL REQUISITION DURINGDOWNTIME. Performed By: #### L 500.4050, L501.2450, L100.0100 ####[facility] [address] [place], [address] Platelet mean volume (Bld) [Entitic vol] 9.9 fL Normal 6.2-12.0 [facility] Comment on above: Order Comment: RESUL T(S) PREVIOUSLY REPORTED ON MANUAL REQUISITION DURINGDOWNTIME. Performed By: #### L 500.4050, L501.2450, L100.0100 ####[facility] [address] [place], [address] Platelets (Bld) [#/Vol] 165 10*3/uL Normal 150-450 [facility] Comment on above: Order Comment: RESUL T(S) PREVIOUSLY REPORTED ON MANUAL REQUISITION DURINGDOWNTIME. Performed By: #### L 500.4050, L501.2450, L100.0100 ####[facility] [address] [place], [address] RBC (Bld) [#/Vol] 4.73 10*6/uL Normal 4.6-6.2 [facility] Comment on above: Order Comment: RESUL T(S) PREVIOUSLY REPORTED ON MANUAL REQUISITION DURINGDOWNTIME. Performed By: #### L 500.4050, L501.2450, L100.0100 ####[facility] [address] [place], [address] RDW SD 51.7 fl High 35.1-43.9 [facility] Comment on above: Order Comment: RESUL T(S) PREVIOUSLY REPORTED ON MANUAL REQUISITION DURINGDOWNTIME. Performed By: #### L 500.4050, L501.2450, L100.0100 ####[facility] [address] [place], [address] WBC (Bld) [#/Vol] 7.1 10*3/uL Normal 4.4-11.0 [facility] Comment on above: Order Comment: RESUL T(S) PREVIOUSLY REPORTED ON MANUAL REQUISITION DURINGDOWNTIME. Performed By: #### L 500.4050, L501.2450, L100.0100 ####[facility] [address] [place], [address] Comprehensive Metabolic Prof ncon 12-16-2023 Albumin [Mass/Vol] 3.2 g/dL Normal 3.2-5.0 [facility] Comment on above: Order Comment: RESUL T(S) PREVIOUSLY REPORTED ON MANUAL REQUISITION DURINGDOWNTIME. Performed By: #### L 500.4050, L501.2450, L100.0100 ####[facility] [address] [place], [address] Albumin/Globulin [Mass ratio] 1.1 {ratio} Normal 0.9-2.4 [facility] Comment on above: Order Comment: RESUL T(S) PREVIOUSLY REPORTED ON MANUAL REQUISITION DURINGDOWNTIME. Performed By: #### L 500.4050, L501.2450, L100.0100 ####[facility] [address] [place], [address] ALK P 84 U/L Normal 45-117 [facility] Comment on above: Order Comment: RESUL T(S) PREVIOUSLY REPORTED ON MANUAL REQUISITION DURINGDOWNTIME. Performed By: #### L 500.4050, L501.2450, L100.0100 ####[facility] [address] [place], [address] ALT [Catalytic activity/Vol] 16 U/L Normal 16-61 [facility] Comment on above: Order Comment: RESUL T(S) PREVIOUSLY REPORTED ON MANUAL REQUISITION DURINGDOWNTIME. Performed By: #### L 500.4050, L501.2450, L100.0100 ####[facility] [address] [place], [address] AST [Catalytic activity/Vol] 12 U/L Low 15-37 [facility] Comment on above: Order Comment: RESUL T(S) PREVIOUSLY REPORTED ON MANUAL REQUISITION DURINGDOWNTIME. Performed By: #### L 500.4050, L501.2450, L100.0100 ####[facility] [address] [place], [address] Bilirubin [Mass/Vol] 0.60 mg/dL Normal 0.20-1.00 [facility] Comment on above: Order Comment: RESUL T(S) PREVIOUSLY REPORTED ON MANUAL REQUISITION DURINGDOWNTIME. Result Comment: For patients on eltrombopag therapy, use of Dimension [place] TBIL is not recommended. Performed By: #### L 500.4050, L501.2450, L100.0100 ####[facility] [address] [place], [address] CA,Total 8.6 mg/dL Normal 8.5-10.1 [facility] Comment on above: Order Comment: RESUL T(S) PREVIOUSLY REPORTED ON MANUAL REQUISITION DURINGDOWNTIME. Performed By: #### L 500.4050, L501.2450, L100.0100 ####[facility] [address] [place], [address] Chloride [Moles/Vol] 111 mmol/L High 98-107 [facility] Comment on above: Order Comment: RESUL T(S) PREVIOUSLY REPORTED ON MANUAL REQUISITION DURINGDOWNTIME. Performed By: #### L 500.4050, L501.2450, L100.0100 ####[facility] [address] [place], [address] CO2 [Moles/Vol] 27.0 mmol/L Normal 21.0-32.0 [facility] Comment on above: Order Comment: RESUL T(S) PREVIOUSLY REPORTED ON MANUAL REQUISITION DURINGDOWNTIME. Performed By: #### L 500.4050, L501.2450, L100.0100 ####[facility] [address] [place], [address] GAP 5 Normal 5-15 [facility] Comment on above: Order Comment: RESUL T(S) PREVIOUSLY REPORTED ON MANUAL REQUISITION DURINGDOWNTIME. Performed By: #### L 500.4050, L501.2450, L100.0100 ####[facility] [address] [place], [address] Globulin (S) [Mass/Vol] 3.0 g/dL Normal 2.2-4.2 [facility] Comment on above: Order Comment: RESUL T(S) PREVIOUSLY REPORTED ON MANUAL REQUISITION DURINGDOWNTIME. Performed By: #### L 500.4050, L501.2450, L100.0100 ####[facility] [address] [place], [address] Potassium [Moles/Vol] 4.1 mmol/L Normal 3.5-5.1 [facility] Comment on above: Order Comment: RESUL T(S) PREVIOUSLY REPORTED ON MANUAL REQUISITION DURINGDOWNTIME. Performed By: #### L 500.4050, L501.2450, L100.0100 ####[facility] [address] [place], [address] Sodium [Moles/Vol] 143 mmol/L Normal 136-145 [facility] Comment on above: Order Comment: RESUL T(S) PREVIOUSLY REPORTED ON MANUAL REQUISITION DURINGDOWNTIME. Performed By: #### L 500.4050, L501.2450, L100.0100 ####[facility] [address] [place], [address] T PROT 6.2 g/dL Low 6.4-8.2 [facility] Comment on above: Order Comment: RESUL T(S) PREVIOUSLY REPORTED ON MANUAL REQUISITION DURINGDOWNTIME. Performed By: #### L 500.4050, L501.2450, L100.0100 ####[facility] [address] [place], [address] BUN/CRE 28.6 RATIO High 10-20 [facility] Comment on above: Order Comment: RESUL T(S) PREVIOUSLY REPORTED ON MANUAL REQUISITION DURINGDOWNTIME. Performed By: #### L 500.4050, L501.2450, L100.0100 ####[facility] [address] [place], [address] Creatinine [Mass/Vol] 0.91 mg/dL Normal 0.70-1.30 [facility] Comment on above: Order Comment: RESUL T(S) PREVIOUSLY REPORTED ON MANUAL REQUISITION DURINGDOWNTIME. Result Comment: The validity of the calculated GFR GFRAA in patients over70 years has not been determined. Clinical correlation isessential. Performed By: #### L 500.4050, L501.2450, L100.0100 ####[facility] [address] [place], [address] EST GFR - AA 102 mL/min Normal >60 [facility] Comment on above: Order Comment: RESUL T(S) PREVIOUSLY REPORTED ON MANUAL REQUISITION DURINGDOWNTIME. Performed By: #### L 500.4050, L501.2450, L100.0100 ####[facility] [address] [place], [address] GFR/1.73 sq M.predicted among non-blacks MDRD (S/P/Bld) [Vol rate/Area] 84 mL/min/{1.73_m2} Normal >60 [facility] Comment on above: Order Comment: RESUL T(S) PREVIOUSLY REPORTED ON MANUAL REQUISITION DURINGDOWNTIME. Performed By: #### L 500.4050, L501.2450, L100.0100 ####[facility] [address] [place], [address] Glucose [Mass/Vol] 140 mg/dL High 74-106 [facility] Comment on above: Order Comment: RESUL T(S) PREVIOUSLY REPORTED ON MANUAL REQUISITION DURINGDOWNTIME. Result Comment: Fast ing Glucose result greater than or equal to 126 mg/dLsuggests DIABETES MELLITUS per A.D.A. criteria. Performed By: #### L 500.4050, L501.2450, L100.0100 ####[facility] [address] [place], [address] Urea nitrogen [Mass/Vol] 26 mg/dL High 7-18 [facility] Comment on above: Order Comment: RESUL T(S) PREVIOUSLY REPORTED ON MANUAL REQUISITION DURINGDOWNTIME. Performed By: #### L 500.4050, L501.2450, L100.0100 ####[facility] [address] [place], [address] Emergency Department Summary on 12-16-2023 Emergency Department Summary Normal [facility] Gallbladderon 12-16-2023 Gallbladder Normal [facility] Lipaseon 12-16-2023 Lipase [Catalytic activity/Vol] 50 U/L Normal 13-75 [facility] Comment on above: Order Comment: RESUL T(S) PREVIOUSLY REPORTED ON MANUAL REQUISITION DURINGDOWNTIME. Result Comment: Siva hernandez note:LIPASE revised reference range effective 22.New Lipase methodology. Expected to produce lower valuesthan the previous assay method.NEW Reference Range: 13 - 75 U/L Performed By: #### L 500.4050, L501.2450, L100.0100 ####[facility] [address] [place], [address] Urinalysis, Completeon 12-15 BILIRUBIN URINE Negative Normal Negative [facility] Comment on above: Order Comment: CLEAN CATCH Performed By: #### L 400.0001 ####[facility] [address] [place], [address] Clarity (U) Clear Normal Clear [facility] Comment on above: Order Comment: CLEAN CATCH Performed By: #### L 400.0001 ####[facility] [address] [place], [address] Color (U) Yellow Normal Yellow [facility] Comment on above: Order Comment: CLEAN CATCH Performed By: #### L 400.0001 ####[facility] [address] [place], [address] GLUCOSE, UR Negative Normal Normal [facility] Comment on above: Order Comment: CLEAN CATCH Performed By: #### L 400.0001 ####[facility] [address] [place], [address] KETONE UR Negative Normal Negative [facility] Comment on above: Order Comment: CLEAN CATCH Performed By: #### L 400.0001 ####[facility] [address] [place], [address] LEUK ESTERASE Negative Normal Negative [facility] Comment on above: Order Comment: CLEAN CATCH Performed By: #### L 400.0001 ####[facility] [address] [place], [address] Nitrite Ql (U) Negative Normal Negative [facility] Comment on above: Order Comment: CLEAN CATCH Performed By: #### L 400.0001 ####[facility] [address] [place], [address] OCCULT BLOOD-UR Negative Normal Negative [facility] Comment on above: Order Comment: CLEAN CATCH Performed By: #### L 400.0001 ####[facility] [address] [place], [address] pH UR 5.0 Normal 5.0 - 8.0 [facility] Comment on above: Order Comment: CLEAN CATCH Performed By: #### L 400.0001 ####[facility] [address] [place], [address] PROT DIPSTX Negative Normal Negative [facility] Comment on above: Order Comment: CLEAN CATCH Performed By: #### L 400.0001 ####[facility] [address] [place], [address] SP.GR. DIPSTX 1.015 Normal 1.002-1.030 [facility] Comment on above: Order Comment: CLEAN CATCH Performed By: #### L 400.0001 ####[facility] [address] [place], [address] UROBILI 4 mg/dl Abnormal Normal [facility] Comment on above: Order Comment: CLEAN CATCH Performed By: #### L 400.0001 ####[facility] [address] [place], [address] WBC 0-5 SEEN Normal 0-5 [facility] Comment on above: Order Comment: CLEAN CATCH Performed By: #### L 400.0001 ####[facility] [address] [place], [address] BACTERIA 0 SEEN Normal None Seen [facility] Comment on above: Order Comment: CLEAN CATCH Performed By: #### L 400.0001 ####[facility] [address] [place], [address] EPI,SQUAMOUS 0 SEEN Normal 0-5 [facility] Comment on above: Order Comment: CLEAN CATCH Performed By: #### L 400.0001 ####[facility] [address] [place], [address] Mucus Ql (Urine sed) 0 SEEN Normal [facility] Comment on above: Order Comment: CLEAN CATCH Performed By: #### L 400.0001 ####[facility] [address] [place], [address] RBC 0 SEEN Normal 0-5 [facility] Comment on above: Order Comment: CLEAN CATCH Performed By: #### L 400.0001 ####[facility] [address] [place], [address] CNOVon 12-01-2023 CNOV Normal [facility] UA DIP, URINE (POC)on 2023 BILIRUBIN UA (POCT) Negative Negative [facility] CLARITY UA (POCT) Clear [facility] COLOR UA (POCT) Yellow [facility] GLUCOSE UA (POCT) Negative Negative mg/dL [facility] Hemoglobin Ql (U) Negative Negative [facility] Interpretation and review of laboratory results Abnormal [facility] KETONE UA (POCT) Negative Negative mg/dL [facility] LEUKOCYTES UA (POCT) Negative Negative [facility] NITRITE UA (POCT) Negative Negative [facility] PH UA (POCT) 7.0 4.5 - 8.0 [facility] Protein Ql (U) Negative Negative mg/dL [facility] SPECIFIC GRAVITY UA (POCT) 1.025 1.005 - 1.030 [facility] UROBILINOGEN UA (POCT) 4.0 Abnormal Maureen l E.U./dL [facility] Location:[facility], [address] [place], [place], [id number] [place] [address] POINT OF CARE [facility] BILIRUBIN UA (POCT) Negative Negative [facility] CLARITY UA (POCT) Clear [facility] COLOR UA (POCT) Yellow [facility] GLUCOSE UA (POCT) Negative Negative mg/dL [facility] Hemoglobin Ql (U) Negative Negative [facility] Interpretation and review of laboratory results Abnormal [facility] KETONE UA (POCT) Negative Negative mg/dL [facility] LEUKOCYTES UA (POCT) Negative Negative [facility] NITRITE UA (POCT) Negative Negative [facility] PH UA (POCT) 7.0 4.5 - 8.0 [facility] Protein Ql (U) Negative Negative mg/dL [facility] SPECIFIC GRAVITY UA (POCT) 1.025 1.005 - 1.030 [facility] UROBILINOGEN UA (POCT) 4.0 Abnormal Maureen l E.U./dL [facility] Location:[facility], [address] [facility], [place], [place], [address] [place] [address] POINT OF CARE [facility] BILIRUBIN UA (POCT) Negative Negative [facility] CLARITY UA (POCT) Clear [facility] COLOR UA (POCT) Yellow [facility] GLUCOSE UA (POCT) Negative Negative mg/dL [facility] Hemoglobin Ql (U) Negative Negative [facility] Interpretation and review of laboratory results Abnormal [facility] KETONE UA (POCT) Negative Negative mg/dL [facility] LEUKOCYTES UA (POCT) Negative Negative [facility] NITRITE UA (POCT) Negative Negative [facility] PH UA (POCT) 7.0 4.5 - 8.0 [facility] Protein Ql (U) Negative Negative mg/dL [facility] SPECIFIC GRAVITY UA (POCT) 1.025 1.005 - 1.030 [facility] UROBILINOGEN UA (POCT) 4.0 Abnormal Maureen l E.U./dL [facility] Location:[facility], [address] [facility], [place], [address] [facility] UA DIP, URINE (POC)on 2023 BILIRUBIN UA (POCT) Negative Negative [facility] CLARITY UA (POCT) Clear [facility] COLOR UA (POCT) Yellow [facility] GLUCOSE UA (POCT) Negative Negative mg/dL [facility] Hemoglobin Ql (U) Negative Negative [facility] KETONE UA (POCT) Negative Negative mg/dL [facility] LEUKOCYTES UA (POCT) Trace Abnormal Negative [facility] NITRITE UA (POCT) Negative Negative [facility] PH UA (POCT) 5.5 4.5 - 8.0 [facility] Protein Ql (U) Negative Negative mg/dL [facility] SPECIFIC GRAVITY UA (POCT) 1.020 1.005 - 1.030 [facility] UROBILINOGEN UA (POCT) 0.2 E.U./dL Maureen l E.U./dL [facility] UA DIP, URINE (POC)on 2023 BILIRUBIN UA (POCT) Negative Negative [facility] CLARITY UA (POCT) Slightly Cloudy [facility] COLOR UA (POCT) Yellow [facility] GLUCOSE UA (POCT) Negative Negative mg/dL [facility] Hemoglobin Ql (U) Trace-intact Abnormal Negative [facility] KETONE UA (POCT) Negative Negative mg/dL [facility] LEUKOCYTES UA (POCT) Small Abnormal Negative [facility] NITRITE UA (POCT) Positive Abnormal Negative [facility] PH UA (POCT) 6.5 4.5 - 8.0 [facility] Protein Ql (U) Negative Negative mg/dL [facility] SPECIFIC GRAVITY UA (POCT) >=1.030 1.005 - 1.030 [facility] UROBILINOGEN UA (POCT) 2.0 E.U./dL Abnormal Maureen l E.U./dL [facility] CT CHEST WO IVCONon 04-15-20 Radiology Result ACTIONABLE Abnormal [facility] XR FOOT GENERAL 3V AP/LAT/OB L LEFTon 03-13-2023 [facility] XR Foot - left AP and Latera l and obliqueon 03-13-2023 IMPRESSION: No acute fracture or dislocation Sterile Process Coordinator: JAVY Transcribe Date/Time: Mar 13 2023 12:00P Dictated by : MIGUEL BLISS MD This examination was interpreted and the report reviewed and electronically signed by: MIGUEL BLISS MD on Mar 13 2023 12:04PM [facility] DIVISION OF RADIOLOGY * * *Final Report* * * DATE OF EXAM: Mar 13 2023 11:47AM WOX [id number] - XR FOOT 3V AP/LAT/OBL LT / PROCEDURE REASON: Foot injury, left, initial encounter * * * * Physician Interpretation * * * * EXAMINATION: XR FOOT 3V AP/LAT/OBL LT CLINICAL HISTORY: Left foot injury Technique: XR FOOT 3V AP/LAT/OBL LT -- LEFT with 3 views on 3 images Comparison: X-ray left foot 11/21/2017 RESULT: Generalized osteopenia. No acute fracture or dislocation. No destructive osseous lesion. 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 Posterior calcaneal spur. Soft tissue swelling of the left foot. DIVISION OF RADIOLOGY Provider, [facility] Menan - 03/13/2023 * * *Final Report* * * DATE OF EXAM: Mar 13 2023 11:47AM WOX [id number] - XR FOOT 3V AP/LAT/OBL LT / PROCEDURE REASON: Foot injury, left, initial encounter * * * * Physician Interpretation * * * * EXAMINATION: XR FOOT 3V AP/LAT/OBL LT CLINICAL HISTORY: Left foot injury Technique: XR FOOT 3V AP/LAT/OBL LT -- LEFT with 3 views on 3 images Comparison: X-ray left foot 11/21/2017 RESULT: Generalized osteopenia. No acute fracture or dislocation. No destructive osseous lesion. 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 Posterior calcaneal spur. Soft tissue swelling of the left foot. IMPRESSION IMPRESSION: No acute fracture or dislocation Sterile Process Coordinator: [facility] Transcribe Date/Time: Mar 13 2023 12:00P Dictated by : MIGUEL BLISS MD This examination was interpreted and the report reviewed and electronically signed by: MIGUEL BLISS MD on Mar 13 2023 12:04PM EST [facility] Radiology Study observation (narrative) [facility] X[facility] Foot - left AP and Latera l and obliqueOrdered By: [facility] Provider on 03-13-2023 [facility] Absolute lymphocyte countOrd ered By: Radha Robles on 11-29-2022 Lymphocytes Auto (Unsp spec) [#/Vol] 0.90 10*3/uL 0.83-4.51 [facility] Basophil percentageOrdered B y: Radha Robles on 11-29-2022 Basophil percentage 0 SEEN /hpf 0-5 [facility] Basophils/100 WBC (Bld) 1.2 % 0-1 [facility] Chloride [Moles/Vol] 110 mmol/L 98-107 [facility] Eosinophils/100 WBC (Bld) 3.5 % 0-5 [facility] Glucose [Mass/Vol] 92 mg/dL 74-106 [facility] Neutrophils (Bld) [#/Vol] 4.8 10*3/uL 2.0-7.7 [facility] Neutrophils/100 WBC (Bld) 73.5 % 47-70 [facility] Potassium [Moles/Vol] 4.0 mmol/L 3.5-5.1 [facility] Sodium [Moles/Vol] 142 mmol/L 136-145 [facility] WBC (Bld) [#/Vol] 6.5 10*3/uL 4.4-11.0 [facility] Bilirubin Test strip Ql (U)O rdered By: Radha Robles on 11-29-2022 Bilirubin Ql (U) Negative Negative [facility] Blood erythrocytes count (nu mber/volume)Ordered By: Radha Robles on 11-29-2022 RBC (Bld) [#/Vol] 4.59 10*6/uL 4.6-6.2 [facility] Blood hemoglobin measurement (mass/volume)Ordered By: Radha Robles on 11-29-2022 Hemoglobin (Bld) [Mass/Vol] 12.7 g/dL 13.0-16.5 [facility] Blood lymphocytes/100 leukoc ytesOrdered By: Radha Robles on 11-29-2022 Lymphocytes/100 WBC (Bld) 13.9 % 19-41 [facility] Blood monocytes/100 leukocyt esOrdered By: Radha Robles on 11-29-2022 Monocytes/100 WBC (Bld) 7.6 % 0-10 [facility] Blood platelet mean volumeOr dered By: Radha Robles on 11-29-2022 Platelet mean volume (Bld) [Entitic vol] 10.6 fL 6.2-12.0 [facility] Determination of erythrocyte mean corpuscular volume (MCV)Ordered By: Radha Robles on 11-29-2022 MCV (RBC) [Entitic vol] 89.5 fL 80-94 [facility] Hematocrit Auto (Bld) [Volum e fraction]Ordered By: Radha Robles on 11-29-2022 Hematocrit (Bld) [Volume fraction] 41.1 % 40-54 [facility] Ketones Test strip Ql (U)Ord ered By: Radha Robles on 11-29-2022 Ketones Ql (U) Negative Negative [facility] Laboratory - Chemistry and C hemistry - challengeOrdered By: Radha Robles on 11-29-2022 CO2 [Moles/Vol] 27.0 mmol/L 21.0-32.0 [facility] Urea nitrogen/Creatinine [Mass ratio] 26.0 mg/mg 10-20 [facility] Laboratory - Hematology and Cell countsOrdered By: Radha oRbles on 11-29-2022 Erythrocyte distribution width (RBC) [Entitic vol] 53.5 fL 35.1-43.9 [facility] Erythrocyte distribution width (RBC) [Ratio] 16.2 % 11.6-14.6 [facility] Immature granulocytes/100 WBC (Bld) 0.300 % 0.0-0.9 [facility] Comment on above: IG% - Immature Granu locytes (promyelocytes, myelocytes and metamyelocytes) > 1% indicates that a LEFT SHIFT is Present. MCH (RBC) [Entitic mass] 27.7 pg 27.0-32.0 [facility] Nucleated RBC/100 WBC (Bld) [Ratio] 0 % 0-5 [facility] MCHC Auto (RBC) [Mass/Vol]Or dered By: Radha Robles on 11-29-2022 MCHC (RBC) [Mass/Vol] 30.9 g/dL 32-36 [facility] Mucus LM Ql (Urine sed)Order ed By: Radha Robles on 11-29-2022 Mucus Ql (Urine sed) RARE /[facility] Nitrite Test strip Ql (U)Ord ered By: Radha Robles on 11-29-2022 Nitrite Ql (U) Negative Negative [facility] No Panel InformationOrdered By: Radha Robles on 11-29-2022 Estimated Creatinine Clearance Calc 73.60 ml/min [facility] Estimated GFR (MDRD) Amer 117 mL/min >60 [facility] Comment on above: GFR Calc Estimated GFR (MDRD) Non-Af Amer 97 mL/min >60 [facility] Comment on above: Non- GFR Calc Platelets bldOrdered By: Ton Robles on 11-29-2022 Platelets (Bld) [#/Vol] 170 10*3/uL 150-450 [facility] Protein Test strip Ql (U)Ord ered By: Radha Robles on 11-29-2022 Protein Ql (U) Negative Negative [facility] Serum or plasma calcium tristan urement (mass/volume)Ordered By: Radha Robles on 11-29-2022 Calcium [Mass/Vol] 8.7 mg/dL 8.5-10.1 [facility] Serum or plasma creatinine m easurement (mass/volume)Ordered By: Radha Robles on 11-29-2022 Creatinine [Mass/Vol] 0.81 mg/dL 0.70-1.30 [facility] Comment on above: The validity of the calculated GFR & GFRAA in patients over 70 years has not been determined. Clinical correlation is essential. Serum or plasma urea nitroge n measurement (mass/volume)Ordered By: Radha Robles on 11-29-2022 Urea nitrogen [Mass/Vol] 21 mg/dL 7-18 [facility] Squamous epithelial cells de tection in urine sediment by light microscopyOrdered By: Rdaha Robles on 11-29-2022 Epithelial cells.squamous LM Ql (Urine sed) 0-5 SEEN /hpf 0-5 [facility] Thin prep Papanicolaou smear with manual screeningOrdered By: Radha Robles on 11-29-2022 Thin prep Papanicolaou smear with manual screening 5 5-15 [facility] Urine blood detectionOrdered By: Radha Robles on 11-29-2022 RBC Ql (U) Negative Negative [facility] RBC Ql (U) 0 SEEN /hpf 0-5 [facility] Urine clarityOrdered By: Ton Robles on 11-29-2022 Clarity (U) Clear Clear [facility] Urine color determinationOrd ered By: Radha Robles on 11-29-2022 Color (U) Yellow Yellow [facility] Urine glucose detectionOrder ed By: Radha Robles on 11-29-2022 Glucose Ql (U) Normal mg/dl Normal [facility] Urine leukocyte esterase det ection by dipstickOrdered By: Radha Robles on 11-29-2022 Leukocyte esterase Test strip Ql (U) Negative Negative [facility] Urine pHOrdered By: Jus Robles on 11-29-2022 pH (U) 6.0 [pH] 5.0 - 8.0 [facility] Urine sediment bacteria coun t by microscopy (number/high power field)Ordered By: Radha Robles on 11-29-2022 Bacteria LM.HPF (Urine sed) [#/Area] 0 /[HPF] None Seen [facility] Urine specific gravity measu rementOrdered By: Radha Robles on 11-29-2022 Specific gravity (U) [Rel density] 1.015 1.002-1.030 [facility] Urobilinogen Auto test strip Ql (U)Ordered By: Radha Robles on 11-29-2022 Urobilinogen Ql (U) 1 mg/dl Normal [facility] CT HEAD OR BRAIN W/O CONTRAS Ton 08-02-2022 CT HEAD OR BRAIN W/O CONTRAST ORIGINAL EXAMINATION: CT OF THE HEAD WITHOUT CONTRAST 08/01/2022 10:21 pm TECHNIQUE: CT of the head was performed without the administration of intravenous contrast. Automated exposure control, iterative reconstruction, and/or weight based adjustment of the mA/kV was utilized to reduce the radiation dose to as low as reasonably achievable. COMPARISON: None. HISTORY: ORDERING SYSTEM PROVIDED HISTORY: Fall Reason for Exam: pain; trauma patient FINDINGS: BRAIN/VENTRICLES: No acute intracranial hemorrhage, mass effect, or midline shift. No large territorial infarct. No abnormal extra-axial fluid collection. Incidentally noted empty sella. Scattered white matter hypodensities are nonspecific but compatible with mild chronic microvascular angiopathy. Moderate parenchymal volume loss with commensurate ventricular dilation. Calcific atherosclerosis within the left vertebral and both internal carotid arteries. ORBITS: No acute abnormality. SINUSES: Mucosal thickening within both maxillary sinuses, both frontal sinuses, and the ethmoid air cells. Clear mastoid air cells. SOFT TISSUES/SKULL: Right posterior scalp hematoma and soft tissue swelling. IMPRESSION: No acute intracranial hemorrhage or mass effect. I have personally reviewed the images of this examination and agree with the resident's findings and interpretation. Interpreted by: Ange Espinoza Preliminary Report By: Sade Awan Electronically signed By Ange Espinoza Dictated Date: 08/01/2022 10:34:16 PM Prelim Date: 08/01/2022 10:37:05 PM Sign Date: 08/01/2022 10:40:42 PM Ordering Provider: [facility] ([place]) CT SPINE CERVICAL W/O THANG Sidhu 08-02-2022 CT SPINE CERVICAL W/O CONTRAST ORIGINAL EXAMINATION: CT OF THE CERVICAL SPINE WITHOUT CONTRAST 08/01/2022 10:29 pm TECHNIQUE: CT of the cervical spine was performed without the administration of intravenous contrast. Multiplanar reformatted images are provided for review. Automated exposure control, iterative reconstruction, and/or weight based adjustment of the mA/kV was utilized to reduce the radiation dose to as low as reasonably achievable. COMPARISON: None. HISTORY: ORDERING SYSTEM PROVIDED HISTORY: Reason for Exam: pain; trauma patient FINDINGS: BONES/ALIGNMENT: Loss of the normal cervical lordosis. Normal sagittal alignment. The vertebral body heights are maintained. The craniocervical junction is maintained and the dens is intact. No acute fracture. DEGENERATIVE CHANGES: Multilevel degenerative discs, endplate osteophytes, uncovertebral hypertrophy, and facet arthropathy. No severe central canal stenosis. Variable foraminal stenosis. SOFT TISSUES: No prevertebral soft tissue swelling. There is biapical pleuroparenchymal scarring. Calcified atherosclerotic plaque is noted at the carotid bulbs bilaterally. IMPRESSION: No acute fracture or traumatic listhesis. I have personally reviewed the images of this examination and agree with the resident's findings and interpretation. Interpreted by: Ange Espinoza Preliminary Report By: Sade Awan Electronically signed By Ange Espinoza Dictated Date: 08/01/2022 10:38:45 PM Prelim Date: 08/01/2022 10:41:54 PM Sign Date: 08/01/2022 10:43:43 PM Ordering Provider: HERI MEREDITH [facility] ([place]) CT SPINE LUMBAR W/O CONTRAST on 08-02-2022 CT SPINE LUMBAR W/O CONTRAST ORIGINAL EXAMINATION: CT OF THE LUMBAR SPINE WITHOUT CONTRAST 08/01/2022 TECHNIQUE: CT of the lumbar spine was performed without the administration of intravenous contrast. Multiplanar reformatted images are provided for review. Adjustment of mA and/or kV according to patient size was utilized. Automated exposure control, iterative reconstruction, and/or weight based adjustment of the mA/kV was utilized to reduce the radiation dose to as low as reasonably achievable. COMPARISON: None HISTORY: ORDERING SYSTEM PROVIDED HISTORY: Reason for Exam: pain; trauma patient FINDINGS: BONES/ALIGNMENT: There are 5 [id number] lumbar type vertebral bodies. Slight levocurvature of the lumbar spine centered about L2-L3. 2 mm retrolisthesis and 2 mm retrolisthesis of L1 on L2 and L2 on L3 respectively. Trace anterolisthesis of L3 on L4. 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 Vertebral body heights are maintained. No acute fracture. Status post bilateral L3-L4 pedicle screw and paraspinal everett placement. The hardware appears intact with no evidence of loosening. Also status post L3 and L4 laminectomies. DEGENERATIVE CHANGES: Multilevel degenerative discs, endplate osteophytes, and facet arthropathy. Suboptimal visualization of the L3-L4 level due to streak artifact arising from the metallic hardware. No severe central canal or foraminal stenosis within the confines of suboptimal visualization. SOFT TISSUES/RETROPERITON EUM: No paraspinal mass. Fatty atrophy of the inferior paraspinal muscles. Moderate calcific atherosclerosis within the nonaneurysmal abdominal aorta. IMPRESSION: No acute fracture or traumatic listhesis. I have personally reviewed the images of this examination and agree with the resident's findings and interpretation. Interpreted by: Ange Espinoza Preliminary Report By: Sade Awan Electronically signed By Ange Espinoza Dictated Date: 08/01/2022 11:08:10 PM Prelim Date: 08/01/2022 11:13:27 PM Sign Date: 08/01/2022 11:17:12 PM Ordering Provider: HERI MEREDITH [facility] ([place]) CT THORAX W/O CONTRASTon CT THORAX W/O CONTRAST ORIGINAL EXAMINATION: CT OF THE CHEST WITHOUT CONTRAST 08/01/2022 10:36 pm TECHNIQUE: CT of the chest was performed without the administration of intravenous contrast. Multiplanar reformatted images are provided for review. Automated exposure control, iterative reconstruction, and/or weight based adjustment of the mA/kV was utilized to reduce the radiation dose to as low as reasonably achievable. COMPARISON: None. HISTORY: ORDERING SYSTEM PROVIDED HISTORY: Fall Reason for Exam: pain; trauma patient FINDINGS: Mediastinum: The heart is not enlarged. No pericardial effusion. Severe calcific atherosclerosis within the coronary arteries. The great vessels are normal in course and caliber. Unremarkable esophagus. No mediastinal adenopathy. Evaluation of the hilar lymph nodes is suboptimal without IV contrast. Lungs/pleura: The central airways are patent. There is a 4 mm nodule at the right lung apex. A 7 mm nodule is seen at the left lung apex. A 7 mm nodule is noted at the left lung base. There are additional smaller nodules scattered throughout both lungs. There are scattered areas of pleural and parenchymal scarring. No pleural effusion or pneumothorax. Upper Abdomen: No acute process within the included images of the upper abdomen. Soft Tissues/Bones: No acute soft tissue abnormality. Acute fracture through an osteophyte anterior to the T4 vertebral body. Remote right anterior rib fractures. Degenerative changes the spine. IMPRESSION: Acute fracture through an osteophyte anterior to the T4 vertebral body. Multiple bilateral scattered pulmonary nodules measure up to 7 mm. Per Fleischner 2017 criteria, a CT at 3-6 months and then an additional CT follow-up at 18-24 months are recommended. Fleischner 2017 criteria do not apply to patients with known or suspected malignancy or immunocompromise. I have personally reviewed the images of this examination and agree with the resident's findings and interpretation. Interpreted by: Ange Espinoza Preliminary Report By: Sade Awan Electronically signed By Ange Espinoza Dictated Date: 08/01/2022 10:54:26 PM Prelim Date: 08/01/2022 11:03:35 PM Sign Date: 08/01/2022 11:11:17 PM Ordering Provider: HERI MEREDITH [facility] ([place]) MRI BRAIN WO IVCONon 022 [facility] CREATININE BLDon 02-22-2021 Creatinine [Mass/Vol] 1.03 mg/dL Normal 0.73-1.22 [facility] Comment on above: Order Comment: [facility] Type: BLOOD SPECIMEN Performed By: #### C RET1 #### [facility] CLIA [id number] [address] [place], [place] [id number] [place] [address] OF [facility] GFR/1.73 sq M.predicted among blacks MDRD (S/P/Bld) [Vol rate/Area] mL/min/{1.73_m2} [facility] Comment on above: Order Comment: Speci men Type: BLOOD SPECIMEN Performed By: #### C RET1 #### [facility] CLIA [id number] [address], [place] [id number] [place] [address] OF [place] GFR/1.73 sq M.predicted among non-blacks MDRD (S/P/Bld) [Vol rate/Area] mL/min/{1.73_m2} [facility] Comment on above: Order Comment: [facility] Type: BLOOD SPECIMEN Result Comment: eGFR (Estimated GFR) Units of measure: mL/min/1.73 meters squared eGFR is derived from the reexpressed MDRD Study equation using the following parameters: serum creatinine, age, gender and race. The creatinine assay has been calibrated to be traceable to IDMS. An eGFR <60 mL/min/1.73m2 for >3 months is consistent with chronic kidney disease. Refer to KDOQI guidelines for clinical interpretation. In patients with unstable renal function, e.g. those with acute kidney injury, the eGFR may not accurately reflect actual GFR. Performed By: #### C RET1 #### [facility] CLIA [id number] [address] [place] [address] [place] OF [place] [address] ABD/PEL W IVCONon 021 CT ABD/PEL W IVCON * * *Final Report* * * DATE OF EXAM: Feb 22 2021 2:58PM [facility] 0530 - CT ABD/PEL W IVCON / PROCEDURE REASON: Generalized abdominal pain * * * * Physician Interpretation * * * * EXAMINATION: CT ABDOMEN AND PELVIS WITH IV CONTRAST CLINICAL HISTORY: Abdominal pain TECHNIQUE: CT of the abdomen and pelvis was performed using standard technique, scanning from just above the dome of the diaphragm to the symphysis pubis. MQ: CTAP_3 Contrast: IV: 150 ml of Omnipaque 300 Oral: 900 ml of 50ML Omnipaque [address] Radiation dose: Integrated Dose-length product (DLP) for this visit = 1926.13 mGy*cm. CT Dose Reduction Employed: mAs-kVp adjusted based on patient size-age COMPARISON: 06/10/2014 RESULT: Liver: No mass. Biliary: No bile duct dilation. Gallbladder is unremarkable. Spleen: No mass. No splenomegaly. Pancreas: No mass or duct dilation. Adrenals: No mass. Kidneys: Assessment of the kidneys is somewhat limited because of artifact from orthopedic hardware in the lumbar spine. At the inferior pole of the right kidney, cystic structure measures 2.3 cm. There are probable parapelvic cysts. There is no hydronephrosis. At the inferior pole of the left kidney, there is a 3 mm nonobstructive calculus. GI tract: No dilation or wall thickening. Lymph nodes: No abdominal or pelvic lymphadenopathy. Mesentery/Peritoneum : No ascites or mass. Retroperitoneum: No mass. Vasculature: The celiac axis and SMA are patent. The portal vein and branches, splenic vein, SMV, and hepatic veins are patent. Pelvis: There is diffuse transmural thickening of the urinary bladder which is somewhat nonspecific and may be an artifact of under distention. There is possible deformity of the urethra suggesting prior transurethral prostatectomy and clinical correlation is suggested. Bones/Soft Tissues: There is diffuse degenerative disc disease. Posterior fusion is noted at the L3-4 level along with a laminectomy. There are no osteolytic lesions. There are bilateral fat-containing inguinal hernias. Lower thorax: Medially at the left lower lobe, there is a 6 mm nodule which appears stable. Advertiser (topogram) images: No additional findings. IMPRESSION: Nonspecific transmural thickening of the urinary bladder. While possibly indicating cystitis, this could be an artifact of under distention. There are some deformity of the urethra suggesting previous transurethral prostatectomy and clinical correlation is suggested. Right renal cystic structure and parapelvic cysts. There is a tiny nonobstructive left renal calculus. Stable left lower lobe pulmonary nodule. Stability over this length of time suggests a benign lesion. Sterile Process Coordinator: PSCB Transcribe Date/Time: Feb 23 2021 1:32P Dictated by : RONALDO HAMM MD This examination was interpreted and the report reviewed and electronically signed by: RONALDO HAMM MD on Feb 23 2021 1:38PM EST [id number] CN Normal [facility] Vital Signs Date Time Vital Sign Value Performing Clinician Facility 11-17-2024 07:56-0400 Body mass index (BMI) [Ratio] 37.96 kg/m2 Jose Fam MD Work Phone: [facility] 11-17-2024 07:56-0400 Body weight 125.19 kg Jose Fam MD Work Phone: [facility] 11-17-2024 07:56-0400 Diastolic blood pressure 58 mm[Hg] Jose Fam MD Work Phone: [facility] 11-17-2024 07:56-0400 Heart rate 60 /min Jose Fam MD Work Phone: [facility] 11-17-2024 07:56-0400 Respiratory rate 18 /min Jose Fam MD Work Phone: [facility] 11-17-2024 07:56-0400 SaO2% (BldA) [Mass fraction] 92 % Jose Fam MD Work Phone: [facility] 11-17-2024 07:56-0400 Systolic blood pressure 104 mm[Hg] Jose Fam MD Work Phone: [facility] 10-31-2024 15:07-0400 Body temperature 97.3 [degF] Dr. Jose Fam MD Work Phone: 3(262)737-093724 [place] [address] 10-31-2024 15:07-0400 Diastolic blood pressure 68 mm[Hg] Dr. Jose Fam MD Work Phone: 1(354)043-604324 [place] [address] 10-31-2024 15:07-0400 Heart rate 64 /min Dr. Jose Fam MD Work Phone: 8(490)238-277924 [place] [address] 10-31-2024 15:07-0400 Respiratory rate 18 /min Dr. Jose Fam MD Work Phone: 0(380)438-261824 [place] [address] 10-31-2024 15:07-0400 SaO2% (BldA) [Mass fraction] 96 % Dr. Jose Fam MD Work Phone: 2(288)833-070424 [place] [address] 10-31-2024 15:07-0400 Systolic blood pressure 120 mm[Hg] Dr. Jose Fam MD Work Phone: 2(620)191-573224 [place] [address] 10-31-2024 12:26-0400 Body height 180.[address] Jose Fam MD Work Phone: 6(817)886-279624 [place] [address] 10-31-2024 12:26-0400 Body weight 122.[address] Jose Fam MD Work Phone: 8(600)860-738624 [place] [address] 10-31-2024 10:39-0400 Inhaled oxygen flow rate 2 L/min Dr. Jose Fam MD Work Phone: 1(682)774-114724 [place] [address] 10-31-2024 07:52-0400 Body mass index (BMI) [Ratio] 37.5 kg/m2 Dr. Jose Fam MD Work Phone: 1(147)652-402224 [place] [address] 10-28-2024 13:13-0400 Body temperature 98.4 [degF] Dr. Jose Fam MD Work Phone: 1(217)733-635824 [place] [address] 10-28-2024 13:00-0400 Diastolic blood pressure 103 mm[Hg] Dr. Jose Fam MD Work Phone: 4(068)623-051624 [place] [address] 10-28-2024 13:00-0400 Heart rate 62 /min Dr. Jose Fam MD Work Phone: 8(081)743-446024 [place] [address] 10-28-2024 13:00-0400 Inhaled oxygen flow rate 2 L/min Dr. Jose Fam MD Work Phone: 5(319)355-433924 [place] [address] 10-28-2024 13:00-0400 Respiratory rate 22 /min Dr. Jose Fam MD Work Phone: 1(684)295-778824 [place] [address] 10-28-2024 13:00-0400 SaO2% (BldA) [Mass fraction] 95 % Dr. Jose Fam MD Work Phone: 6(586)409-835324 [place] [address] 10-28-2024 13:00-0400 Systolic blood pressure 139 mm[Hg] Dr. Jose Fam MD Work Phone: 9(007)406-922724 [place] [address] 10-28-2024 08:46-0400 Inhaled oxygen concentration 95 % Dr. Jose Fam MD Work Phone: 3(264)145-812724 [place] [address] 10-28-2024 08:14-0400 Body height 180.[address] Jose Fam MD Work Phone: 1(467)586-171624 [place] [address] 10-28-2024 08:14-0400 Body mass index (BMI) [Ratio] 40.3 kg/m2 Dr. Jose Fam MD Work Phone: 7(904)237-027724 [place] [address] 10-28-2024 08:14-0400 Body weight 131.[address] Jose Fam MD Work Phone: 1(440)686-139924 [place] [address] 10-27-2024 15:42-0400 Body temperature 97.4 [degF] Dr. Jose Fam MD Work Phone: 8(601)588-797324 [place] [address] 10-27-2024 15:42-0400 Diastolic blood pressure 98 mm[Hg] Dr. Jose Fam MD Work Phone: 2(089)892-655624 [place] [address] 10-27-2024 15:42-0400 Heart rate 70 /min Dr. Jose Fam MD Work Phone: 7(779)655-049424 [place] [address] 10-27-2024 15:42-0400 Respiratory rate 19 /min Dr. Jose Fam MD Work Phone: [facility] 10-27-2024 15:42-0400 SaO2% (BldA) [Mass fraction] 96 % Dr. Jose Fam MD Work Phone: [facility] 10-27-2024 15:42-0400 Systolic blood pressure 136 mm[Hg] Dr. Jose Fam MD Work Phone: [facility] 10-27-2024 13:32-0400 Body mass index (BMI) [Ratio] 40.4 kg/m2 Dr. Jose Fam MD Work Phone: [facility] 10-27-2024 13:32-0400 Body weight 131.[address] Jose Fam MD Work Phone: [facility] 10-27-2024 09:39-0400 Body height 180.[address] Jose Fam MD Work Phone: [facility] 10-26-2024 15:40-0400 Body mass index (BMI) [Ratio] 38.92 kg/m2 Ari Clutter PA-C Work Phone: [facility] 10-26-2024 15:40-0400 Body temperature 98.29 [degF] Ari Clutter PA-C Work Phone: [facility] 10-26-2024 15:40-0400 Body weight 128.37 kg Ari Clutter PA-C Work Phone: [facility] 10-26-2024 15:40-0400 Diastolic blood pressure 74 mm[Hg] Ari Clutter PA-C Work Phone: [facility] 10-26-2024 15:40-0400 Heart rate 60 /min Ari Clutter PA-C Work Phone: [facility] 10-26-2024 15:40-0400 Respiratory rate 18 /min Ari Clutter PA-C Work Phone: [facility] 10-26-2024 15:40-0400 SaO2% (BldA) [Mass fraction] 94 % Ari Clutter PA-C Work Phone: [facility] 10-26-2024 15:40-0400 Systolic blood pressure 122 mm[Hg] Ari Bautista PA-C Work Phone: [facility] 10-25-2024 13:08-0400 Body mass index (BMI) [Ratio] 38.92 kg/m2 Jose Fam MD Work Phone: [facility] 10-25-2024 13:08-0400 Body weight 128.37 kg Jose Fam MD Work Phone: [facility] 10-25-2024 13:08-0400 Diastolic blood pressure 60 mm[Hg] Jose Fam MD Work Phone: [facility] 10-25-2024 13:08-0400 Heart rate 60 /min Jose Fam MD Work Phone: [facility] 10-25-2024 13:08-0400 Respiratory rate 18 /min Jose Fam MD Work Phone: [facility] 10-25-2024 13:08-0400 SaO2% (BldA) [Mass fraction] 93 % Jose Fam MD Work Phone: [facility] 10-25-2024 13:08-0400 Systolic blood pressure 106 mm[Hg] Jose Fam MD Work Phone: [facility] 10-08-2024 12:36-0400 Body mass index (BMI) [Ratio] 39.61 kg/m2 Phoebe Muro PA-C Work Phone: [facility] 10-08-2024 12:36-0400 Body temperature 98.29 [degF] Phoebe Muro PA-C Work Phone: [facility] 10-08-2024 12:36-0400 Body weight 130.64 kg Phoebe Muro PA-C Work Phone: [facility] 10-08-2024 12:36-0400 Diastolic blood pressure 60 mm[Hg] Phoebe Muro PA-C Work Phone: [facility] 10-08-2024 12:36-0400 Heart rate 60 /min Phoebe Muro PA-C Work Phone: [facility] 10-08-2024 12:36-0400 Respiratory rate 18 /min Phoebe Muro PA-C Work Phone: [facility] 10-08-2024 12:36-0400 SaO2% (BldA) [Mass fraction] 95 % Phoebe Muro PA-C Work Phone: [facility] 10-08-2024 12:36-0400 Systolic blood pressure 102 mm[Hg] Phoebe Muro PA-C Work Phone: [facility] 09-14-2024 11:27-0400 Body mass index (BMI) [Ratio] 38.51 kg/m2 Jose Fam MD Work Phone: [facility] 09-14-2024 11:27-0400 Body weight 127.01 kg Jose Fam MD Work Phone: [facility] 09-14-2024 11:27-0400 Diastolic blood pressure 68 mm[Hg] Jose Fam MD Work Phone: [facility] 09-14-2024 11:27-0400 Heart rate 60 /min Jose Fam MD Work Phone: [facility] 09-14-2024 11:27-0400 Respiratory rate 18 /min Jose Fam MD Work Phone: [facility] 09-14-2024 11:27-0400 SaO2% (BldA) [Mass fraction] 94 % Jose Fam MD Work Phone: [facility] 09-14-2024 11:27-0400 Systolic blood pressure 120 mm[Hg] Jose Fam MD Work Phone: [facility] 09-04-2024 08:28-0400 Body temperature 98.2 [degF] Dr. Jose Fam MD Work Phone: [facility] 09-04-2024 08:28-0400 Diastolic blood pressure 55 mm[Hg] Dr. Jose Fam MD Work Phone: 1(760)612-007524 [place] [address] 09-04-2024 08:28-0400 Heart rate 64 /min Dr. Jose Fam MD Work Phone: 8(491)192-907724 [place] [address] 09-04-2024 08:28-0400 Respiratory rate 17 /min Dr. Jose Fam MD Work Phone: 0(158)151-050924 [place] [address] 09-04-2024 08:28-0400 SaO2% (BldA) [Mass fraction] 94 % Dr. Jose Fam MD Work Phone: 9(564)548-786524 [place] [address] 09-04-2024 08:28-0400 Systolic blood pressure 103 mm[Hg] Dr. Jose Fam MD Work Phone: 1(208)839-875424 [place] [address] 09-03-2024 06:00-0400 Body mass index (BMI) [Ratio] 38.5 kg/m2 Dr. Jose Fam MD Work Phone: 2(082)633-430224 [place] [address] 09-03-2024 06:00-0400 Body weight 125.[address] Jose Fam MD Work Phone: 8(793)605-283424 [place] [address] 09-01-2024 12:18-0400 Body height 180.[address] Jose Fam MD Work Phone: 4(849)744-219024 [place] [address] 08-29-2024 08:00-0400 Body temperature 97.7 [degF] Dr. Jose Fam MD Work Phone: 7(876)074-011424 [place] [address] 08-29-2024 08:00-0400 Diastolic blood pressure 58 mm[Hg] Dr. Jose Fam MD Work Phone: 7(253)754-906524 [place] [address] 08-29-2024 08:00-0400 Heart rate 61 /min Dr. Jose Fam MD Work Phone: 7(726)328-310024 [place] [address] 08-29-2024 08:00-0400 Respiratory rate 18 /min Dr. Jose Fam MD Work Phone: 0(550)028-108124 [place] [address] 08-29-2024 08:00-0400 SaO2% (BldA) [Mass fraction] 93 % Dr. Jose Fam MD Work Phone: 9(767)736-591124 [place] [address] 08-29-2024 08:00-0400 Systolic blood pressure 117 mm[Hg] Dr. Jose Fam MD Work Phone: 0(099)531-319024 [place] [address] 08-29-2024 06:00-0400 Body mass index (BMI) [Ratio] 39.4 kg/m2 Dr. Jose Fam MD Work Phone: 2(771)156-874524 [place] [address] 08-29-2024 06:00-0400 Body weight 128.[address] Jose Fam MD Work Phone: 1(872)388-253224 [place] [address] 08-28-2024 12:47-0500 Body mass index (BMI) [Ratio] 39.4 kg/m2 Dr. Jose Fam MD Work Phone: 2(403)508-975624 [place] [address] 08-28-2024 12:47-0500 Body weight 128.[address] Jose Fam MD Work Phone: 1(607)340-638524 [place] [address] 08-28-2024 12:33-0500 Body temperature 98.1 [degF] Dr. Jose Fam MD Work Phone: 5(344)786-294424 [place] [address] 08-28-2024 12:33-0500 Diastolic blood pressure 67 mm[Hg] Dr. Jose Fam MD Work Phone: 5(346)632-143424 [place] [address] 08-28-2024 12:33-0500 Heart rate 61 /min Dr. Jose Fam MD Work Phone: 7(879)080-575924 [place] [address] 08-28-2024 12:33-0500 Respiratory rate 12 /min Dr. Jose Fam MD Work Phone: 9(531)958-139724 [place] [address] 08-28-2024 12:33-0500 SaO2% (BldA) [Mass fraction] 93 % Dr. Jose Fam MD Work Phone: 2(257)710-857724 [place] [address] 08-28-2024 12:33-0500 Systolic blood pressure 119 mm[Hg] Dr. Jose Fam MD Work Phone: 0(013)263-024624 [place] [address] 08-25-2024 14:17-0500 Body height 180.[address] Jose Fam MD Work Phone: 8(779)895-693824 [place] [address] 07-27-2024 16:20-0500 Body temperature 97.4 [degF] Dr. Jose Fam MD Work Phone: 0(308)389-987424 [place] [address] 07-27-2024 16:20-0500 Diastolic blood pressure 68 mm[Hg] Dr. Jose Fam MD Work Phone: 9(393)987-300724 [place] [address] 07-27-2024 16:20-0500 Heart rate 60 /min Dr. Jose Fma MD Work Phone: 5(162)424-295724 [place] [address] 07-27-2024 16:20-0500 Respiratory rate 16 /min Dr. Jose Fam MD Work Phone: 4(900)657-888424 [place] [address] 07-27-2024 16:20-0500 SaO2% (BldA) [Mass fraction] 92 % Dr. Jose Fam MD Work Phone: 6(259)060-392924 [place] [address] 07-27-2024 16:20-0500 Systolic blood pressure 125 mm[Hg] Dr. Jose Fam MD Work Phone: 6(256)046-916024 [place] [address] 07-27-2024 14:58-0500 Body mass index (BMI) [Ratio] 39.3 kg/m2 Dr. Jose Fam MD Work Phone: 0(086)655-702524 [place] [address] 07-27-2024 14:58-0500 Body weight 127.[address] Jose Fam MD Work Phone: 7(830)092-349024 [place] [address] 07-22-2024 08:59-0500 Body temperature 98.3 [degF] Dr. Jose Fam MD Work Phone: 4(296)405-176724 [place] [address] 07-22-2024 08:59-0500 Diastolic blood pressure 63 mm[Hg] Dr. Jose Fam MD Work Phone: 0(849)273-592924 [place] [address] 07-22-2024 08:59-0500 Heart rate 63 /min Dr. Jose Fam MD Work Phone: [facility] 07-22-2024 08:59-0500 Respiratory rate 16 /min Dr. Jose Fam MD Work Phone: [facility] 07-22-2024 08:59-0500 SaO2% (BldA) [Mass fraction] 95 % Dr. Jose Fam MD Work Phone: [facility] 07-22-2024 08:59-0500 Systolic blood pressure 105 mm[Hg] Dr. Jose Fam MD Work Phone: [facility] 07-19-2024 11:30-0500 Body weight 128.[address] Jose Fam MD Work Phone: [facility] 07-16-2024 07:51-0500 Body mass index (BMI) [Ratio] 39.6 kg/m2 Dr. Jose Fam MD Work Phone: [facility] 07-14-2024 15:01-0500 Body mass index (BMI) [Ratio] 40.16 kg/m2 Jose Fam MD Work Phone: [facility] 07-14-2024 15:01-0500 Body temperature 98.2 [degF] Jose Fam MD Work Phone: [facility] 07-14-2024 15:01-0500 Body weight 132.45 kg Jose Fam MD Work Phone: [facility] 07-14-2024 15:01-0500 Diastolic blood pressure 74 mm[Hg] Jose Fam MD Work Phone: [facility] 07-14-2024 15:01-0500 Heart rate 48 /min Jose Fam MD Work Phone: [facility] 07-14-2024 15:01-0500 Respiratory rate 18 /min Jose Fam MD Work Phone: [facility] 07-14-2024 15:01-0500 SaO2% (BldA) [Mass fraction] 94 % Jose Fam MD Work Phone: [facility] 07-14-2024 15:01-0500 Systolic blood pressure 128 mm[Hg] Jose Fam MD Work Phone: [facility] 07-01-2024 15:29-050 Body height 181.6 cm Jose Fam MD Work Phone: [facility] 07-01-2024 15:29-0500 Body mass index (BMI) [Ratio] 38.37 kg/m2 Jose Fam MD Work Phone: [facility] 07-01-2024 15:29050 Body weight 126.55 kg Jose Fam MD Work Phone: [facility] 07-01-2024 15:29050 Diastolic blood pressure 68 mm[Hg] Jose Fam MD Work Phone: [facility] 07-01-2024 15:29-0500 Heart rate 68 /min Jose Fam MD Work Phone: [facility] 07-01-2024 15:29-0500 SaO2% (BldA) [Mass fraction] 94 % Jose Fam MD Work Phone: [facility] 07-01-2024 15:29-0500 Systolic blood pressure 120 mm[Hg] Jose Fam MD Work Phone: [facility] 06-22-2024 11:31-0500 Body mass index (BMI) [Ratio] 39.47 kg/m2 Valerie Deshpande APRN.INTEGRATED CIRCUIT DESIGN ENGINEER Work Phone: [facility] 06-22-2024 11:31-0500 Body weight 130.18 kg Valerie Deshpande APRN.[employer]TE[employer] CIRCUIT DESIGN ENGINEER Work Phone: [facility] 06-22-2024 11:31-0500 Diastolic blood pressure 69 mm[Hg] Valerie Deshpande APRN.INTE[employer] CIRCUIT DESIGN ENGINEER Work Phone: [facility] 06-22-2024 11:31-0500 Heart rate 52 /min Valerie Deshpande APRN.[employer]TE[employer] CIRCUIT DESIGN ENGINEER Work Phone: [facility] 06-22-2024 11:31-0500 Systolic blood pressure 123 mm[Hg] Valerie Julian COOLEY Work Phone: 8(024)365-664205 [place] [address] 06-17-2024 19:33-0500 Body temperature 98.3 [degF] Dr. Jose Fam MD Work Phone: 1(354)905-864424 [place] [address] 06-17-2024 19:33-0500 Diastolic blood pressure 66 mm[Hg] Dr. Jose Fam MD Work Phone: 7(616)685-183924 [place] [address] 06-17-2024 19:33-0500 Heart rate 60 /min Dr. Jose Fam MD Work Phone: 1(338)794-158824 [place] [address] 06-17-2024 19:33-0500 Respiratory rate 12 /min Dr. Jose Fam MD Work Phone: 3(153)765-013324 [place] [address] 06-17-2024 19:33-0500 SaO2% (BldA) [Mass fraction] 94 % Dr. Jose Fam MD Work Phone: 5(982)713-901824 [place] [address] 06-17-2024 19:33-0500 Systolic blood pressure 132 mm[Hg] Dr. Jose Fam MD Work Phone: 1(223)841-594924 [place] [address] 06-17-2024 15:14-0500 Body mass index (BMI) [Ratio] 40.6 kg/m2 Dr. Jose Fam MD Work Phone: 1(864)970-095824 [place] [address] 06-17-2024 15:14-0500 Body weight 131.[address] Jose Fam MD Work Phone: 5(588)671-152724 [place] [address] 06-14-2024 08:26-0500 Body mass index (BMI) [Ratio] 39.6 kg/m2 Dr. Jose Fam MD Work Phone: 1(669)542-122024 [place] [address] 06-14-2024 08:26-0500 Body weight 128.[address] Jose Fam MD Work Phone: 3(295)404-593124 [place] [address] 06-14-2024 08:26-0500 Diastolic blood pressure 64 mm[Hg] Dr. Jose Fam MD Work Phone: 9(590)739-326441 [place] [address] 06-14-2024 08:26-0500 Heart rate 60 /min Dr. Jose Fam MD Work Phone: 1(796)977-926524 [place] [address] 06-14-2024 08:26-0500 Respiratory rate 18 /min Dr. Jose Fam MD Work Phone: 3(161)974-781124 [place] [address] 06-14-2024 08:26-0500 SaO2% (BldA) [Mass fraction] 91 % Dr. Jose Fam MD Work Phone: 8(780)782-222724 [place] [address] 06-14-2024 08:26-0500 Systolic blood pressure 135 mm[Hg] Dr. Jose Fam MD Work Phone: 3(799)509-771124 [place] [address] 06-09-2024 20:45-0500 Diastolic blood pressure 67 mm[Hg] Dr. Jose Fam MD Work Phone: 7(382)106-561424 [place] [address] 06-09-2024 20:45-0500 Heart rate 42 /min Dr. Jose Fam MD Work Phone: 3(273)581-792324 [place] [address] 06-09-2024 20:45-0500 Respiratory rate 15 /min Dr. Jose Fam MD Work Phone: 3(209)549-603324 [place] [address] 06-09-2024 20:45-0500 SaO2% (BldA) [Mass fraction] 96 % Dr. Jose Fam MD Work Phone: 3(493)424-587524 [place] [address] 06-09-2024 20:45-0500 Systolic blood pressure 137 mm[Hg] Dr. Jose Fam MD Work Phone: 2(116)998-003124 [place] [address] 06-09-2024 20:44-0500 Body temperature 98.7 [degF] Dr. Jose Fam MD Work Phone: 3(996)801-005024 [place] [address] 06-09-2024 19:04-0500 Body mass index (BMI) [Ratio] 39.2 kg/m2 Dr. Jose Fam MD Work Phone: 4(563)730-053524 [place] [address] 06-09-2024 19:04-0500 Body weight 127.[address] Jose Fam MD Work Phone: 1(774)062-785341 [place] [address] 06-09-2024 09:15-0500 Body mass index (BMI) [Ratio] 39.9 kg/m2 Dr. Jose Fam MD Work Phone: 0(057)953-011724 [place] [address] 06-09-2024 09:15-0500 Body temperature 98.2 [degF] Dr. Jose Fam MD Work Phone: 6(826)285-705024 [place] [address] 06-09-2024 09:15-0500 Body weight [address] Jose Fam MD Work Phone: 9(192)290-167524 [place] [address] 06-09-2024 09:15-0500 Diastolic blood pressure 73 mm[Hg] Dr. Jose Fam MD Work Phone: 0(181)224-292624 [place] [address] 06-09-2024 09:15-0500 Heart rate 54 /min Dr. Jose Fam MD Work Phone: 2(789)213-315524 [place] [address] 06-09-2024 09:15-0500 Respiratory rate 18 /min Dr. Jose Fam MD Work Phone: 2(924)004-427724 [place] [address] 06-09-2024 09:15-0500 SaO2% (BldA) [Mass fraction] 94 % Dr. Jose Fam MD Work Phone: 9(709)371-069324 [place] [address] 06-09-2024 09:15-0500 Systolic blood pressure 148 mm[Hg] Dr. Jose Fam MD Work Phone: 6(276)760-869241 [place] [address] 05-28-2024 11:09-0500 Body mass index (BMI) [Ratio] 39.47 kg/m2 Valerie Deshpande APRN.[employer]TE[employer]ATED CIRCUIT DESIGN ENGINEER Work Phone: 9(144)169-316705 [place] [address] 05-28-2024 11:09-0500 Body weight 130.18 kg Valerie Deshpande APRN.INTE[employer]ATED CIRCUIT DESIGN ENGINEER Work Phone: [facility] 05-28-2024 11:09-0500 Diastolic blood pressure 70 mm[Hg] Valerie Deshpande APRN.INTE[employer]ATED CIRCUIT DESIGN ENGINEER Work Phone: 8(945)842-183205 [place] [address] 05-28-2024 11:09-0500 Heart rate 56 /min Valerie Deshpande BAN[employer]ET CAPTAIN.INTE[employer]ATED [employer] DESIGN ENGINEER Work Phone: [facility] 05-28-2024 11:09-0500 Respiratory rate 16 /min Valerie Deshpande BANQUET CAPTAIN.INTE[employer] DESIGN ENGINEER Work Phone: [facility] 05-28-2024 11:09-0500 Systolic blood pressure 138 mm[Hg] Valerie Deshpande APRN.INTEGRATED CIRCUIT DESIGN ENGINEER Work Phone: [facility] 04-22-2024 10:52-0400 Body height 181.6 cm Jose Fam MD Work Phone: [facility] 04-22-2024 10:52-0400 Body mass index (BMI) [Ratio] 39.33 kg/m2 Jose Fam MD Work Phone: [facility] 04-22-2024 10:52-0400 Body weight 129.73 kg Jose Fam MD Work Phone: [facility] 04-22-2024 10:52-0400 Diastolic blood pressure 47 mm[Hg] Jose Fam MD Work Phone: [facility] 04-22-2024 10:52-0400 Heart rate 60 /min Jose Fam MD Work Phone: [facility] 04-22-2024 10:52-0400 Systolic blood pressure 100 mm[Hg] Jose Fam MD Work Phone: [facility] 04-09-2024 12:55-0400 Body height 181.6 cm Jose Fam MD Work Phone: [facility] 04-09-2024 12:55-0400 Body mass index (BMI) [Ratio] 39.06 kg/m2 Jose Fam MD Work Phone: [facility] 04-09-2024 12:55-0400 Body weight 128.82 kg Jose Fam MD Work Phone: [facility] 04-09-2024 12:55-0400 Diastolic blood pressure 64 mm[Hg] Jose Fam MD Work Phone: [facility] 04-09-2024 12:55-0400 Heart rate 64 /min Jose Fam MD Work Phone: [facility] 04-09-2024 12:55-0400 Respiratory rate 16 /min Jose Fam MD Work Phone: [facility] 04-09-2024 12:55-0400 Systolic blood pressure 120 mm[Hg] Jsoe Fam MD Work Phone: [facility] 03-10-2024 13:18-0400 Body mass index (BMI) [Ratio] 39.05 kg/m2 Ryann Cornell BANQUET CAPTAIN.INTE[employer] CIRCUIT DESIGN ENGINEER Work Phone: [facility] 03-10-2024 13:18-0400 Body temperature 97.7 [degF] Ryann Cornell BANQUET CAPTAIN.INTE[employer]ATED CIRCUIT DESIGN ENGINEER Work Phone: [facility] 03-10-2024 13:18-0400 Body weight 127.01 kg Ryann Cornell BANQUET CAPTAIN.INTE[employer] DESIGN ENGINEER Work Phone: [facility] 03-10-2024 13:18-0400 Diastolic blood pressure 62 mm[Hg] Ryann Cornell BANQUET CAPTAIN.INTE[employer]ATED CIRCUIT DESIGN ENGINEER Work Phone: [facility] 03-10-2024 13:18-0400 Heart rate 80 /min Ryann Cornell BANQUET CAPTAIN.INTE[employer] DESIGN ENGINEER Work Phone: [facility] 03-10-2024 13:18-0400 Respiratory rate 16 /min Ryann Cornell BANQUET CAPTAIN.INTE[employer]ATED CIRCUIT DESIGN ENGINEER Work Phone: [facility] 03-10-2024 13:18-0400 SaO2% (BldA) [Mass fraction] 99 % Ryann Cornell BANQUET CAPTAIN.INTEGRATED CIRCUIT DESIGN ENGINEER Work Phone: [facility] 03-10-2024 13:18-0400 Systolic blood pressure 122 mm[Hg] Ryann Cornell BANQUET CAPTAIN.INTE[employer]ATED CIRCUIT DESIGN ENGINEER Work Phone: [facility] 03-01-2024 12:51-0400 Body mass index (BMI) [Ratio] 38.91 kg/m2 Valerie Deshpande BANQUET CAPTAIN.INTE[employer] DESIGN ENGINEER Work Phone: [facility] 03-01-2024 12:51-0400 Body weight 126.55 kg Valerie Deshpande B[employer]ET CAPTAIN.INTE[employer]ATED CIRCUIT DESIGN ENGINEER Work Phone: [facility] 03-01-2024 12:51-0400 Diastolic blood pressure 56 mm[Hg] Valerie Deshpande BANQUET CAPTAIN.INTE[employer]ATED CIRCUIT DESIGN ENGINEER Work Phone: [facility] 03-01-2024 12:51-0400 Heart rate 65 /min Valerie Deshpande BANQUET CAPTAIN.INTE[employer]ATED CIRCUIT DESIGN ENGINEER Work Phone: [facility] 03-01-2024 12:51-0400 Respiratory rate 16 /min Valerie Deshpande BANQUET CAPTAIN.INTEGRATED CIRCUIT DESIGN ENGINEER Work Phone: [facility] 03-01-2024 12:51-0400 Systolic blood pressure 124 mm[Hg] Valerie Deshpande BANQUET CAPTAIN.INTE[employer] CIRCUIT DESIGN ENGINEER Work Phone: [facility] 02-11-2024 14:20-0400 Body height 180.3 cm Pacc 1 Work Phone: [facility] 02-11-2024 14:20-0400 Body mass index (BMI) [Ratio] 39.14 kg/m2 Pacc 1 Work Phone: [facility] 02-11-2024 14:20-0400 Body temperature 98.49 [degF] Pacc 1 Work Phone: [facility] 02-11-2024 14:20-0400 Body weight 127.28 kg Pacc 1 Work Phone: [facility] 02-11-2024 14:20-0400 Diastolic blood pressure 60 mm[Hg] Pacc 1 Work Phone: [facility] 02-11-2024 14:20-0400 Heart rate 67 /min Pacc 1 Work Phone: [facility] 02-11-2024 14:20-0400 Respiratory rate 16 /min Pacc 1 Work Phone: [facility] 02-11-2024 14:20-0400 SaO2% (BldA) [Mass fraction] 95 % Pacc 1 Work Phone: [facility] 02-11-2024 14:20-0400 Systolic blood pressure 116 mm[Hg] Pac 1 Work Phone: [facility] 01-26-2024 13:35-0400 Body mass index (BMI) [Ratio] 39.75 kg/m2 Ange Verduzco MD Work Phone: [facility] 01-26-2024 13:35-0400 Body temperature 98.01 [degF] Ange Verduzco MD Work Phone: [facility] 01-26-2024 13:35-0400 Body weight 129.28 kg Ange Verduzco MD Work Phone: [facility] 01-26-2024 13:35-0400 Diastolic blood pressure 72 mm[Hg] Ange Verduzco MD Work Phone: [facility] 01-26-2024 13:35-0400 Heart rate 90 /min Ange Verduzco MD Work Phone: [facility] 01-26-2024 13:35-0400 SaO2% (BldA) [Mass fraction] 95 % Ange Verduzco MD Work Phone: [facility] 01-26-2024 13:35-0400 Systolic blood pressure 132 mm[Hg] Ange Verduzco MD Work Phone: [facility] 01-20-2024 13:28-0400 Diastolic blood pressure 71 mm[Hg] Valerie Deshpande APRN.INTEGRATED CIRCUIT DESIGN ENGINEER Work Phone: [facility] 01-20-2024 13:28-0400 Heart rate 66 /min Valerie Deshpande APRN.INTEGRATED CIRCUIT DESIGN ENGINEER Work Phone: [facility] 01-20-2024 13:28-0400 Respiratory rate 16 /min Valerie Deshpande APRN.INTEGRATED CIRCUIT DESIGN ENGINEER Work Phone: [facility] 01-20-2024 13:28-0400 Systolic blood pressure 143 mm[Hg] Valerie Deshpande APRN.INTEGRATED CIRCUIT DESIGN ENGINEER Work Phone: [facility] 01-13-2024 13:25-0400 Body mass index (BMI) [Ratio] 40.03 kg/m2 Valerie Deshpande BANQUET CAPTAIN.INTE[employer]ATED [employer] DESIGN ENGINEER Work Phone: [facility] 01-13-2024 13:25-0400 Body weight 130.18 kg Valerie Deshpande BANQUET CAPTAIN.INTEGRATED CIRCUIT DESIGN ENGINEER Work Phone: [facility] 01-13-2024 13:25-0400 Diastolic blood pressure 73 mm[Hg] Valerie Deshpande BANQUET CAPTAIN.INTE[employer] CIRCUIT DESIGN ENGINEER Work Phone: [facility] 01-13-2024 13:25-0400 Heart rate 64 /min Valerie Deshpande BANQUET CAPTAIN.INTEGRATED CIRCUIT DESIGN ENGINEER Work Phone: [facility] 01-13-2024 13:25-0400 Respiratory rate 16 /min Valerie Deshpande BANQUET CAPTAIN.INTEGRATED CIRCUIT DESIGN ENGINEER Work Phone: [facility] 01-13-2024 13:25-0400 Systolic blood pressure 125 mm[Hg] Valerie Deshpande B[employer]QUET CAPTAIN.INTE[employer]ATED CIRCUIT DESIGN ENGINEER Work Phone: [facility] 01-07-2024 13:03-0400 Body mass index (BMI) [Ratio] 39.47 kg/m2 Jose Fam MD Work Phone: [facility] 01-07-2024 13:03-0400 Body temperature 99.5 [degF] Jose Fam MD Work Phone: [facility] 01-07-2024 13:03-0400 Body weight 128.37 kg Jose Fam MD Work Phone: [facility] 01-07-2024 13:03-0400 Diastolic blood pressure 78 mm[Hg] Jose Fam MD Work Phone: [facility] 01-07-2024 13:03-0400 Heart rate 82 /min Jose Fam MD Work Phone: [facility] 01-07-2024 13:03-0400 Respiratory rate 18 /min Jose Fam MD Work Phone: [facility] 01-07-2024 13:03-0400 SaO2% (BldA) [Mass fraction] 95 % Jose Fam MD Work Phone: [facility] 01-07-2024 13:03-0400 Systolic blood pressure 122 mm[Hg] Jose Fam MD Work Phone: [facility] 12-27-2023 09:39-0400 Body mass index (BMI) [Ratio] 39.63 kg/m2 Mike Adler MD Work Phone: [facility] 12-27-2023 09:39-0400 Body temperature 97.81 [degF] Mike Adler MD Work Phone: [facility] 12-27-2023 09:39-0400 Body weight 128.9 kg Mike Adler MD Work Phone: [facility] 12-27-2023 09:39-0400 Diastolic blood pressure 80 mm[Hg] Mike Adler MD Work Phone: [facility] 12-27-2023 09:39-0400 Heart rate 65 /min Mike Adler MD Work Phone: [facility] 12-27-2023 09:39-0400 Respiratory rate 21 /min Mike Adler MD Work Phone: [facility] 12-27-2023 09:39-0400 SaO2% (BldA) [Mass fraction] 96 % Mike Adler MD Work Phone: [facility] 12-27-2023 09:39-0400 Systolic blood pressure 132 mm[Hg] Mike Adler MD Work Phone: [facility] 12-01-2023 15:52-0400 Body mass index (BMI) [Ratio] 40.17 kg/m2 Nikko Jose MD Work Phone: [facility] 12-01-2023 15:52-0400 Body weight 130.64 kg Nikko Jose MD Work Phone: [facility] 12-01-2023 15:52-0400 Diastolic blood pressure 64 mm[Hg] Nikko Jose MD Work Phone: [facility] 12-01-2023 15:52-0400 Heart rate 54 /min Nikko Jose MD Work Phone: [facility] 12-01-2023 15:52-0400 SaO2% (BldA) [Mass fraction] 94 % Nikko Jose MD Work Phone: [facility] 12-01-2023 15:52-0400 Systolic blood pressure 134 mm[Hg] Nikko Jose MD Work Phone: [facility] 11-03-2023 14:31-0400 Body height 180.3 cm Ange Mondragon APRN.INTEGRATED CIRCUIT DESIGN ENGINEER, DNP Work Phone: [facility] 11-03-2023 14:31-0400 Body mass index (BMI) [Ratio] 39.72 kg/m2 Ange Mondragon APRN.INTE[employer]ATED CIRCUIT DESIGN ENGINEER, DNP Work Phone: [facility] 11-03-2023 14:31-0400 Body weight 129.18 kg Ange Mondragon APRN.INTEGRATED CIRCUIT DESIGN ENGINEER, DNP Work Phone: [facility] 11-03-2023 14:31-0400 Diastolic blood pressure 70 mm[Hg] Ange Mondragon APRN.INTEGRATED CIRCUIT DESIGN ENGINEER, DNP Work Phone: [facility] 11-03-2023 14:31-0400 Heart rate 72 /min Ange Mondragon APRN.INTEGRATED CIRCUIT DESIGN ENGINEER, DNP Work Phone: [facility] 11-03-2023 14:31-0400 Systolic blood pressure 128 mm[Hg] Ange Mondragon APRN.INTEGRATED CIRCUIT DESIGN ENGINEER, DNP Work Phone: [facility] 10-09-2023 13:56-0400 Body weight 127.46 kg Valerie Deshpande APRN.INTEGRATED CIRCUIT DESIGN ENGINEER Work Phone: [facility] 10-09-2023 13:56-0400 Diastolic blood pressure 68 mm[Hg] Valerie Deshpande APRN.INTEGRATED CIRCUIT DESIGN ENGINEER Work Phone: [facility] 10-09-2023 13:56-0400 Heart rate 69 /min Valerie Deshpande B[employer]ET CAPTAIN.INTEGRATED CIRCUIT DESIGN ENGINEER Work Phone: [facility] 10-09-2023 13:56-0400 Respiratory rate 16 /min Valerie Deshpande BANQUET CAPTAIN.INTEGRATED CIRCUIT DESIGN ENGINEER Work Phone: [facility] 10-09-2023 13:56-0400 Systolic blood pressure 115 mm[Hg] Valerie Deshpande B[employer]ET CAPTAIN.INTE[employer]ATED CIRCUIT DESIGN ENGINEER Work Phone: [facility] 09-09-2023 13:05-0400 Body height 180.[address] Ochoa Jr., MD Work Phone: [facility] 09-09-2023 13:05-0400 Body weight 127.[address] Ochoa Jr., MD Work Phone: [facility] 09-09-2023 13:05-0400 Diastolic blood pressure 76 mm[Hg] Lane Ochoa Jr., MD Work Phone: [facility] 09-09-2023 13:05-0400 Heart rate 62 /min Lane Ochoa Jr., MD Work Phone: [facility] 09-09-2023 13:05-0400 Respiratory rate 16 /min Lane Ochoa Jr., MD Work Phone: [facility] 09-09-2023 13:05-0400 Systolic blood pressure 125 mm[Hg] Lane Ochoa Jr., MD Work Phone: [facility] 08-26-2023 15:37-0500 Body height 180.[address] Ochoa Jr., MD Work Phone: [facility] 08-26-2023 15:37-0500 Body weight 127.[address] Ochoa Jr., MD Work Phone: [facility] 08-26-2023 15:37-0500 Diastolic blood pressure 75 mm[Hg] Lane Ochoa Jr., MD Work Phone: [facility] 08-26-2023 15:37-0500 Heart rate 76 /min Lane Ochoa Jr., MD Work Phone: [facility] 08-26-2023 15:37-0500 SaO2% (BldA) [Mass fraction] 98 % Lane Ochoa Jr., MD Work Phone: [facility] 08-26-2023 15:37-0500 Systolic blood pressure 127 mm[Hg] Lane Ochoa Jr., MD Work Phone: [facility] 08-04-2023 13:18-0500 Body height 180.3 cm Ange Mondragon APRN.INTEGRATED CIRCUIT DESIGN ENGINEER, DNP Work Phone: [facility] 08-04-2023 13:18-0500 Body temperature 97.39 [degF] Ange Mondragon APRN.[facility], DNP Work Phone: [facility] 08-04-2023 13:18-0500 Body weight 127.28 kg Ange Mondragon APRN.[facility], DNP Work Phone: [facility] 08-04-2023 13:18-0500 Diastolic blood pressure 66 mm[Hg] Ange Mondragon APRN.[facility], DNP Work Phone: [facility] 08-04-2023 13:18-0500 Heart rate 68 /min Ange Mondragon APRN.[employer], DNP Work Phone: [facility] 08-04-2023 13:18-0500 Respiratory rate 14 /min Ange Mondragon APRN.[employer], DNP Work Phone: [facility] 08-04-2023 13:18-0500 SaO2% (BldA) [Mass fraction] 94 % Ange Mondragon APRN.[employer], DNP Work Phone: [facility] 08-04-2023 13:18-0500 Systolic blood pressure 118 mm[Hg] Ange Mondragon APRN.[employer], DNP Work Phone: [facility] 05-23-2023 13:48-0500 Body temperature 97.59 [degF] Joes Fam MD Work Phone: [facility] 05-23-2023 13:48-0500 Body weight 129.28 kg Jose Fam MD Work Phone: [facility] 05-23-2023 13:48-0500 Diastolic blood pressure 78 mm[Hg] Jose Fam MD Work Phone: [facility] 05-23-2023 13:48-0500 Heart rate 64 /min Jose Fam MD Work Phone: [facility] 05-23-2023 13:48-0500 Respiratory rate 16 /min Jose Fam MD Work Phone: [facility] 05-23-2023 13:48-0500 Systolic blood pressure 130 mm[Hg] Jose Fam MD Work Phone: [facility] 05-11-2023 14:25-0500 Body temperature 99.39 [degF] Aisha Spence APRN.INTEGRATED CIRCUIT DESIGN ENGINEER Work Phone: [facility] 05-11-2023 14:25-0500 Body weight 127.46 kg Aisha Spence APRN.INTEGRATED CIRCUIT DESIGN ENGINEER Work Phone: [facility] 05-11-2023 14:25-0500 Diastolic blood pressure 64 mm[Hg] Aisha Spence APRN.INTEGRATED CIRCUIT DESIGN ENGINEER Work Phone: [facility] 05-11-2023 14:25-0500 Heart rate 86 /min Aisha Spence APRN.INTEGRATED CIRCUIT DESIGN ENGINEER Work Phone: [facility] 05-11-2023 14:25-0500 Respiratory rate 18 /min Aisha Spence APRN.INTEGRATED CIRCUIT DESIGN ENGINEER Work Phone: [facility] 05-11-2023 14:25-0500 SaO2% (BldA) [Mass fraction] 96 % Aisha Spence APRN.INTEGRATED CIRCUIT DESIGN ENGINEER Work Phone: [facility] 05-11-2023 14:25-0500 Systolic blood pressure 104 mm[Hg] Aisha Spence APRN.INTEGRATED CIRCUIT DESIGN ENGINEER Work Phone: [facility] 04-21-2023 13:45-0400 Body weight 128.82 kg Nikko Jose MD Work Phone: [facility] 04-21-2023 13:45-0400 Diastolic blood pressure 66 mm[Hg] Nikko Jose MD Work Phone: [facility] 04-21-2023 13:45-0400 Heart rate 59 /min Nikko Jose MD Work Phone: [facility] 04-21-2023 13:45-0400 SaO2% (BldA) [Mass fraction] 96 % Nikko Jose MD Work Phone: [facility] 04-21-2023 13:45-0400 Systolic blood pressure 114 mm[Hg] Nikko Jose MD Work Phone: [facility] 04-09-2023 13:15-0400 Body height 181.6 cm Jose Fam MD Work Phone: [facility] 04-09-2023 13:15-0400 Body weight 128.82 kg Jose Fam MD Work Phone: [facility] 04-09-2023 13:15-0400 Diastolic blood pressure 68 mm[Hg] Jose Fam MD Work Phone: [facility] 04-09-2023 13:15-0400 Heart rate 60 /min Jose Fam MD Work Phone: [facility] 04-09-2023 13:15-0400 Respiratory rate 18 /min Jose Fam MD Work Phone: [facility] 04-09-2023 13:15-0400 Systolic blood pressure 110 mm[Hg] Jose Fam MD Work Phone: [facility] 03-13-2023 11:09-0400 Body temperature 97.9 [degF] Khoa Womack APRN.INTEGRATED CIRCUIT DESIGN ENGINEER Work Phone: [facility] 03-13-2023 11:09-0400 Body weight 112.49 kg Khoa Womack APRN.INTEGRATED CIRCUIT DESIGN ENGINEER Work Phone: [facility] 03-13-2023 11:09-0400 Diastolic blood pressure 72 mm[Hg] Khoa Vu BANQUET CAPTAIN.INTEGRATED CIRCUIT DESIGN ENGINEER Work Phone: [facility] 03-13-2023 11:09-0400 Heart rate 72 /min Khoa Womack BANQUET CAPTAIN.INTEGRATED CIRCUIT DESIGN ENGINEER Work Phone: [facility] 03-13-2023 11:09-0400 Respiratory rate 18 /min Khoa Womack BANQUET CAPTAIN.INTEGRATED CIRCUIT DESIGN ENGINEER Work Phone: [facility] 03-13-2023 11:09-0400 SaO2% (BldA) [Mass fraction] 94 % Khoa Womack BANQUET CAPTAIN.INTEGRATED CIRCUIT DESIGN ENGINEER Work Phone: [facility] 03-13-2023 11:09-0400 Systolic blood pressure 124 mm[Hg] Khoa Womack BANQUET CAPTAIN.INTEGRATED CIRCUIT DESIGN ENGINEER Work Phone: [facility] 12-11-2022 11:34-0400 Body height 181.6 cm Lucas Ramirez DO Work Phone: [facility] 12-11-2022 11:34-0400 Body weight 123.83 kg Lucas Ramirez DO Work Phone: [facility] 12-11-2022 11:34-0400 Diastolic blood pressure 64 mm[Hg] Lucas Ramirez DO Work Phone: [facility] 12-11-2022 11:34-0400 Heart rate 58 /min Lucas Ramirez DO Work Phone: [facility] 12-11-2022 11:34-0400 SaO2% (BldA) [Mass fraction] 95 % Lucas Ramirez DO Work Phone: [facility] 12-11-2022 11:34-0400 Systolic blood pressure 120 mm[Hg] Lucas Ashley DO Work Phone: [facility] 12-06-2022 13:14-0400 Body temperature 98.8 [degF] Valerie Deshpande BANQUET CAPTAIN.INTEGRATED CIRCUIT DESIGN ENGINEER Work Phone: [facility] 12-06-2022 13:14-0400 Body weight 126.19 kg Valerie Deshpande BANQUET CAPTAIN.INTEGRATED CIRCUIT DESIGN ENGINEER Work Phone: [facility] 12-06-2022 13:14-0400 Diastolic blood pressure 56 mm[Hg] Valerie Deshpande BANQUET CAPTAIN.INTEGRATED CIRCUIT DESIGN ENGINEER Work Phone: [facility] 12-06-2022 13:14-0400 Heart rate 60 /min Valerie Deshpande BANQUET CAPTAIN.INTEGRATED CIRCUIT DESIGN ENGINEER Work Phone: [facility] 12-06-2022 13:14-0400 Respiratory rate 16 /min Valerie Deshpande BANQUET CAPTAIN.INTEGRATED CIRCUIT DESIGN ENGINEER Work Phone: [facility] 12-06-2022 13:14-0400 Systolic blood pressure 116 mm[Hg] Valerie Deshpande BANQUET CAPTAIN.INTEGRATED CIRCUIT DESIGN ENGINEER Work Phone: [facility] 11-29-2022 21:10-0400 Diastolic blood pressure 75 mm[Hg] [facility] 11-29-2022 21:10-0400 Heart rate 56 /min [facility] 11-29-2022 21:10-0400 Respiratory rate 19 /min [facility] 11-29-2022 21:10-0400 SaO2% (BldA) [Mass fraction] 97 % [facility] 11-29-2022 21:10-0400 Systolic blood pressure 139 mm[Hg] [facility] 11-29-2022 17:46-0400 Body height 180.34 cm [facility] 11-29-2022 17:46-0400 Body mass index (BMI) [Ratio] 39 kg/m2 [facility] 11-29-2022 17:46-0400 Body temperature 97.9 [degF] [facility] 11-29-2022 17:46-0400 Body weight 126.96 kg [facility] 10-02-2022 12:38-0400 Body weight 127.46 kg Jose Fam MD Work Phone: [facility] 10-02-2022 12:38-0400 Diastolic blood pressure 72 mm[Hg] Jose Fam MD Work Phone: [facility] 10-02-2022 12:38-0400 Heart rate 50 /min Jose Fam MD Work Phone: [facility] 10-02-2022 12:38-0400 Respiratory rate 16 /min Jose Fam MD Work Phone: [facility] 10-02-2022 12:38-0400 Systolic blood pressure 122 mm[Hg] Jose Fam MD Work Phone: [facility] 09-23-2022 14:02-0400 Body weight 129.73 kg Nikko Jose MD Work Phone: [facility] 09-23-2022 14:02-0400 Diastolic blood pressure 58 mm[Hg] Nikko Jose MD Work Phone: [facility] 09-23-2022 14:02-0400 Heart rate 57 /min Nikko Jose MD Work Phone: [facility] 09-23-2022 14:02-0400 SaO2% (BldA) [Mass fraction] 93 % Nikko Jose MD Work Phone: [facility] 09-23-2022 14:02-0400 Systolic blood pressure 112 mm[Hg] Nikko Jose MD Work Phone: [facility] 08-06-2022 12:19-0500 Body weight 130 kg Phoebe Muro PA-C Work Phone: [facility] 08-06-2022 12:19-0500 Diastolic blood pressure 60 mm[Hg] Phoebe Muro PA-C Work Phone: [facility] 08-06-2022 12:19-0500 Heart rate 62 /min Phoebe Muro PA-C Work Phone: [facility] 08-06-2022 12:19-0500 Respiratory rate 18 /min Phoebe Muro PA-C Work Phone: [facility] 08-06-2022 12:19-0500 SaO2% (BldA) [Mass fraction] 94 % Phoebemaddy Muro PA-C Work Phone: [facility] 08-06-2022 12:19-0500 Systolic blood pressure 112 mm[Hg] Phoebe Muro PA-C Work Phone: [facility] 08-02-2022 01:20-0500 Diastolic Blood Pressure Non-Invasive 85 1 HERI DURESKA DO [facility] 08-02-2022 01:20-0500 Heart rate 78 /min HERI DURESKA DO [facility] 08-02-2022 01:20-0500 Respiratory rate 18 /min HERI DURESKA DO [facility] 08-02-2022 01:20-0500 Systolic Blood Pressure Non-Invasive 138 1 HERI DURESKA DO [facility] 08-01-2022 21:21-0500 Body height 180.3 cm HERI DURESKA DO [facility] 08-01-2022 21:21-0500 Body temperature 98.24 [degF] HERI DURESKA DO [facility] 08-01-2022 21:21-0500 Body weight 130 kg HERI DURESKA DO [facility] 08-01-2022 21:21-0500 Diastolic Blood Pressure Non-Invasive 87 1 HERI DURESKA DO [facility] 08-01-2022 21:21-0500 Heart rate 87 /min HERI DURESKA DO [facility] 08-01-2022 21:21-0500 Respiratory rate 18 /min HERI DURESKA DO [facility] 08-01-2022 21:21-0500 Systolic Blood Pressure Non-Invasive 141 1 HERI DURESKA DO [facility] 07-23-2022 09:53-0500 Diastolic blood pressure 64 mm[Hg] Phoebe Muro PA-C Work Phone: [facility] 07-23-2022 09:53-0500 Heart rate 64 /min Phoebe Muro PA-C Work Phone: [facility] 07-23-2022 09:53-0500 Respiratory rate 18 /min Phoebe Muro PA-C Work Phone: [facility] 07-23-2022 09:53-0500 SaO2% (BldA) [Mass fraction] 94 % Phoebe Muro PA-C Work Phone: [facility] 07-23-2022 09:53-0500 Systolic blood pressure 120 mm[Hg] Phoebe Muro PA-C Work Phone: [facility] 07-01-2022 11:15-0500 Body weight 129.73 kg Nikko Jose MD Work Phone: [facility] 07-01-2022 11:15-0500 Diastolic blood pressure 64 mm[Hg] Nikko Jose MD Work Phone: [facility] 07-01-2022 11:15-0500 Heart rate 68 /min Nikko Jose MD Work Phone: [facility] 07-01-2022 11:15-0500 SaO2% (BldA) [Mass fraction] 94 % Nikko Jose MD Work Phone: [facility] 07-01-2022 11:15-0500 Systolic blood pressure 136 mm[Hg] Nikko Jose MD Work Phone: [facility] 06-26-2022 09:47-0500 Body temperature 98.91 [degF] Phoebe Muro PA-C Work Phone: [facility] 06-26-2022 09:47-0500 Body weight 130.82 kg Phoebe Muro PA-C Work Phone: [facility] 06-26-2022 09:47-0500 Diastolic blood pressure 78 mm[Hg] Phoebe Muro PA-C Work Phone: [facility] 06-26-2022 09:47-0500 Heart rate 68 /min Phoebe Muro PA-C Work Phone: [facility] 06-26-2022 09:47-0500 Respiratory rate 18 /min Phoebe Muro PA-C Work Phone: [facility] 06-26-2022 09:47-0500 Systolic blood pressure 122 mm[Hg] Phoebe Muro PA-C Work Phone: [facility] 04-12-2022 10:06-0400 Body weight 129.28 kg Phoebe Muro PA-C Work Phone: [facility] 04-12-2022 10:06-0400 Diastolic blood pressure 72 mm[Hg] Phoebe Muro PA-C Work Phone: [facility] 04-12-2022 10:06-0400 Heart rate 72 /min Phoebe Muro PA-C Work Phone: [facility] 04-12-2022 10:06-0400 Respiratory rate 18 /min Phoebe Muro PA-C Work Phone: [facility] 04-12-2022 10:06-0400 Systolic blood pressure 128 mm[Hg] Phoebe Muro PA-C Work Phone: [facility] 03-21-2022 10:14-0400 Body weight 130.64 kg Jose Fam MD Work Phone: [facility] 03-21-2022 10:14-0400 Diastolic blood pressure 64 mm[Hg] Jose Fam MD Work Phone: [facility] 03-21-2022 10:14-0400 Heart rate 68 /min Jose Fam MD Work Phone: [facility] 03-21-2022 10:14-0400 Respiratory rate 16 /min Jose Fam MD Work Phone: [facility] 03-21-2022 10:14-0400 Systolic blood pressure 114 mm[Hg] Jose Fam MD Work Phone: [facility] 12-10-2021 13:28-0400 Body temperature 97.9 [degF] Phoebe Muro PA-C Work Phone: [facility] 12-10-2021 13:28-0400 Body weight 134.26 kg Phoebe Muro PA-C Work Phone: [facility] 12-10-2021 13:28-0400 Diastolic blood pressure 76 mm[Hg] Phoebe Muro PA-C Work Phone: [facility] 12-10-2021 13:28-0400 Heart rate 60 /min Phoebe Muro PA-C Work Phone: [facility] 12-10-2021 13:28-0400 Respiratory rate 18 /min Phoebe Muro PA-C Work Phone: [facility] 12-10-2021 13:28-0400 Systolic blood pressure 132 mm[Hg] Phoebe Muro PA-C Work Phone: [facility] 09-18-2021 10:41-0400 Body temperature 97.3 [degF] Phoebe Muro PA-C Work Phone: [facility] 09-18-2021 10:41-0400 Body weight 133.36 kg Phoebe Muro PA-C Work Phone: [facility] 09-18-2021 10:41-0400 Diastolic blood pressure 72 mm[Hg] Phoebe Muro PA-C Work Phone: [facility] 09-18-2021 10:41-0400 Heart rate 84 /min Phoebemaddy Muro PA-C Work Phone: [facility] 09-18-2021 10:41-0400 Respiratory rate 18 /min Phoebe Muro PA-C Work Phone: [facility] 09-18-2021 10:41-0400 Systolic blood pressure 120 mm[Hg] Phoebe Muro PA-C Work Phone: [facility] Encounters Encounter Date Encounter Type Care Provider Facility Start: 11-23-2024 End: 11-24-2024 Telephone encounter Jose Fam MD Work Phone: [facility] [place] Comment on above: patient question/keily ting Start: 11-18-2024 End: 11-18-2024 Telephone encounter Jose Fam MD Work Phone: [facility] [place] Comment on above: Insurance Authorizat ion Start: 11-17-2024 End: 11-17-2024 Chart abstracting Jose Fam MD Work Phone: [facility] [place] Comment on above: Outside Urology Start: 11-17-2024 End: 11-18-2024 Follow-up encounter Jose Fam MD Work Phone: [facility] [place] Comment on above: Results Start: 11-17-2024 End: 11-17-2024 Patient encounter procedure Jose Fam MD Work Phone: [facility] [place] Comment on above: November 17 appointment Chronic diastolic co ngestive heart failure (HCC) (Primary Dx); Hypoxia; Essential hypertension Start: 11-17-2024 End: 11-17-2024 ambulatory Jose Fam MD Work Phone: [facility] [place] Start: 11-16-2024 End: 11-16-2024 Patient Outreach Pamela Mcnally RN [facility] Comment on above: Started Weekly phone contact (Recurring) for Transitional Care Management Start: 11-12-2024 End: 11-12-2024 ambulatory JOSE FAM Facility:[facility] Start: 11-11-2024 End: 11-11-2024 ambulatory Jose Fam Facility:[facility] Start: 11-09-2024 End: 11-09-2024 ambulatory JOSE FAM Facility:[facility] Start: 11-04-2024 End: 11-04-2024 Chart abstracting Jose Fam MD Work Phone: [facility] [place] Comment on above: Outside Discharge Case mmary Start: 11-03-2024 End: 11-04-2024 ambulatory Tony Dodson RN Work Phone: [facility] Start: 11-03-2024 End: 11-04-2024 Coordination of care plan Tony Dodson RN Work Phone: [facility] Comment on above: Care Coordination Transition Of Care ( Initial Outreach ( Discharge 10/31/24 [facility]) ) Initial phone contact for Transitional Care Management Start: 11-02-2024 End: 11-02-2024 ambulatory Kathy Davies MA [facility] Start: 11-02-2024 End: 11-02-2024 Patient encounter procedure Kathy Davies MA [facility] Comment on above: Population Health Na vigation Outreach (Healthy @ Home- [facility]) Start: 11-01-2024 End: 11-01-2024 Chart abstracting Nick Spence MA [facility] Comment on above: ER F/U ([facility] ) Start: 10-31-2024 Non-patient / Non-visit [facility] Work Phone: Start: 10-30-2024 Non-patient / Non-visit [facility] Work Phone: Start: 10-29-2024 ambulatory Jose Fam Facility :[facility] Start: 10-29-2024 Non-patient / Non-visit Dr. Prince Joyce MD -[facility] Start: 10-29-2024 Non-patient / Non-visit Dr[facility] Work Phone: Start: 10-28-2024 Non-patient / Non-visit Dr. [facility] Work Phone: Start: 10-28-2024 End: 10-28-2024 Chart abstracting Jose Fam MD Work Phone: [facility] Comment on above: ER Discharge Summary Start: 10-28-2024 End: 10-28-2024 ambulatory Royce Rodriguez RN [facility] Start: 10-28-2024 End: 10-31-2024 Evaluation and management of inpatient Dr. Jonh Shen DO -Progressive Care Unit Work Phone: Start: 10-27-2024 End: 10-27-2024 Telephone encounter Jose Fam MD Work Phone: [facility] Comment on above: Patient Update Start: 10-27-2024 End: 10-27-2024 Emergency department patient visit Dr. Jose Fam MD Work Phone: -Emergency Department Work Phone: Start: 10-26-2024 End: 10-26-2024 Office outpatient visit 15 minutes Ari Bautista PA-C Work Phone: [facility] Comment on above: Wheezing (Primary Dx ) Start: 10-26-2024 End: 10-26-2024 ambulatory JOSE FAM Facility:[facility] Start: 10-25-2024 [facility] Start: 10-25-2024 End: 10-25-2024 Subsequent hospital visit by physician Xr [facility] [place] Work Phone: Radiology Comment on above: SOB (shortness of br eath) [R06.02] Start: 10-25-2024 End: 10-25-2024 Follow-up encounter Jose aFm MD Work Phone: [facility] [place] Comment on above: Results Start: 10-25-2024 End: 10-25-2024 Patient encounter procedure Jose Fam MD Work Phone: [facility] [place] Comment on above: SOB (shortness of br eath) (Primary Dx); HDZ (dyspnea on exertion); Persistent cough; Memory difficulties; Bilateral leg edema; History of bladder cancer; BPH with obstruction/lower urinary tract symptoms; OAB (overactive bladder); Gastroesophageal reflux disease without esophagitis; Hypotension due to drugs Start: 10-25-2024 End: 10-25-2024 ambulatory JOSE FAM Facility:[facility] Start: 10-08-2024 End: 10-08-2024 Patient encounter procedure Phoebe Muro PA-C Work Phone: [facility] [place] Comment on above: Essential hypertensi on (Primary Dx); Acquired hypothyroidism; Mixed hyperlipidemia; Atrial flutter, unspecified type (HCC); Bradycardia; Mild pulmonary hypertension (HCC); Pacemaker; Hypokalemia; Chronic insomnia; Need for vaccination; Lung nodules; Pulmonary nodule; Elevated fasting blood sugar; Low serum vitamin B12; OAB (overactive bladder); BPH with obstruction/lower urinary tract symptoms; Peripheral edema Start: 10-08-2024 End: 10-08-2024 ambulatory JOSE FAM Facility:[facility] Start: 10-04-2024 End: 10-04-2024 Refill Jose Fam MD Work Phone: [facility] [place] Comment on above: Refill Request Start: 10-04-2024 End: 10-04-2024 Refill Ange Mondragon APRN.INTEGRATED CIRCUIT DESIGN ENGINEER, DNP Work Phone: Urology Comment on above: Refill Request Start: 10-03-2024 End: 10-03-2024 Home visit Jose Fam MD Work Phone: [facility] [place] Comment on above: Sinoatrial node dysf unction (HCC) (Primary Dx) Start: 09-18-2024 End: 09-18-2024 Follow-up encounter Jose Fam MD Work Phone: [facility] [place] Start: 09-17-2024 End: 09-17-2024 ambulatory JOSE FAM Facility:[facility] Start: 09-16-2024 End: 09-16-2024 Telephone encounter Jose Fam MD Work Phone: [facility] [place] Comment on above: medication clarifica tion Start: 09-15-2024 End: 09-15-2024 Follow-up encounter Jose Fam MD Work Phone: [facility] [place] Comment on above: Results Start: 09-14-2024 End: 09-15-2024 E-mail encounter from caregiver [facility] Provider [employer] [facility] [place] Start: 09-14-2024 End: 09-14-2024 ambulatory Jose Fam MD Work Phone: [facility] Start: 09-14-2024 End: 09-15-2024 Patient encounter procedure Jose Fam MD Work Phone: [facility] Comment on above: Population Health Na vigation Outreach ([facility] ) Bradycardia (Primary Dx); Atrial flutter, unspecified type (HCC); Balance problem; Gait difficulty; Tinea corporis; Bilateral leg edema scheduling needs Start: 09-09-2024 End: 09-09-2024 Telephone encounter Jose Fam MD Work Phone: [facility] Comment on above: [facility] OT POC Start: 09-09-2024 Encounter for preprocedural cardiovascular examination [facility] Start: 09-08-2024 End: 09-08-2024 Chart abstracting Nick Spence MA [facility] Comment on above: Consult (Outside pro cedure - esophageal/PT/OT ) Start: 09-08-2024 End: 09-08-2024 Telephone encounter Jose Fam MD Work Phone: [facility] Comment on above: Physical Therapy [place] n of Care Start: 09-07-2024 End: 09-07-2024 Telephone encounter Jose Fam MD Work Phone: [facility] [place] Comment on above: [facility] SN POC Start: 09-06-2024 End: 09-06-2024 ambulatory Jose Fam MD Work Phone: [facility] Start: 09-06-2024 End: 09-06-2024 Telephone encounter Jose Fam MD Work Phone: [facility] Comment on above: [facility] agree to foll ow Transition Of Care Start: 08-31-2024 End: 08-31-2024 ambulatory Jose Fam Facility:[facility] Start: 08-31-2024 End: 08-31-2024 [facility] Work Phone: Start: 08-27-2024 End: 08-27-[address] Jose Fam MD Work Phone: [facility] Work Phone: Start: 08-27-2024 End: 08-27-2024 Patient encounter procedure Valente Campoverde DO -Pre-Admission Testing Work Phone: Start: 08-27-2024 End: 08-27-2024 ambulatory Jose Josafat Facility:[facility] Start: 08-23-2024 End: 08-23-2024 Chart abstracting Nick Spence [facility] Comment on above: Results (Outside - [facility] ) Start: 08-19-2024 ambulatory Jose Fam Facility :[facility] Start: 08-19-2024 Non-patient / Non-visit Dr. Jonh jimenez MD -[facility] Start: 08-19-2024 End: 08-19-[address] Jose Fam MD Work Phone: [facility] Work Phone: Start: 08-19-2024 End: 08-19-[address] Simeon Gifford MD -Cardiovascular Services Work Phone: Start: 08-19-2024 End: 08-19-2024 ambulatory Jose Fam Facility:[facility] Start: 08-17-2024 End: 08-17-2024 Chart abstracting Jose Fam MD Work Phone: [facility] Comment on above: Outside Imaging (Drew ous Duplex US) Start: 08-17-2024 Non-patient / Non-visit Dr. Jonh jimenez MD -[facility] Start: 08-17-2024 End: 08-17-[address] Jose Fam MD Work Phone: [facility] Work Phone: Start: 08-17-2024 End: 08-17-[address] Simeon Gifford MD -Cardiovascular Services Work Phone: Start: 08-17-2024 End: 08-17-2024 ambulatory Jose Fam Facility:[facility] Start: 08-04-2024 End: 08-04-2024 ambulatory Josekavita Fam Facility:[facility] Start: 08-04-2024 End: 08-04-[address] Beni Boone MD -[facility] Work Phone: Start: 08-03-2024 ambulatory Savana Brown ty:[facility] Start: 08-02-2024 End: 08-02-2024 Telephone encounter Nick Spence MA [facility] Comment on above: Patient Update Start: 07-30-2024 End: 07-30-2024 Chart abstracting Jose Fam MD Work Phone: [facility] Start: 07-29-2024 End: 07-29-2024 Chart abstracting Jose Fam MD Work Phone: [facility] Comment on above: Outside Imaging Start: 07-28-2024 End: 07-28-2024 Chart abstracting Jsoe Fam MD Work Phone: [facility] Comment on above: Outside EGD (GI Cons ultation, H&P) Start: 07-28-2024 End: 07-28-2024 Refill Ange Mondragon APRN.INTEGRATED CIRCUIT DESIGN ENGINEER, DNP Work Phone: Urology Comment on above: Refill Request Start: 07-28-2024 End: 07-28-[address] Simeon Gifford MD -Cardiovascular Services Work Phone: Start: 07-27-2024 Non-patient / Non-visit Valente Perez nd DO -[facility] Start: 07-27-2024 End: 07-27-2024 Admission to same day surgery center Valente Campoverde DO -Endoscopy Work Phone: Start: 07-27-2024 End: 07-28-2024 ambulatory Jose Fam Facility:[facility] Start: 07-26-2024 Non-patient / Non-visit Valente Perez nd DO -[facility] Start: 07-26-2024 End: 07-26-2024 Chart abstracting Nick Spence MA [facility] Comment on above: Procedure ([facility] /) Start: 07-23-2024 End: 07-23-2024 Chart abstracting Jose Fam MD Work Phone: [facility] [place] Comment on above: Outside H&P Start: 07-22-2024 End: 07-22-2024 Chart abstracting Jose Fam MD Work Phone: [facility] Comment on above: Outside Discharge Case mmadina Start: 07-22-2024 ambulatory Valente Campoverde Facility :[facility] Start: 07-22-2024 End: 09-04-2024 Evaluation and management of inpatient Dr. Simeon Gifford MD -Transitional Care Unit Start: 07-22-2024 Non-patient / Non-visit Dr. Christi Latif DO -[facility] Work Phone: Start: 07-22-2024 Non-patient / Non-visit Dr. Bazan Of mariluz GUZMAN [facility] Start: 07-21-2024 Non-patient / Non-visit Dr. Bazan Of mariluz GUZMAN [facility] Start: 07-20-2024 End: 07-20-2024 Chart abstracting Jose Fam MD Work Phone: [facility] Comment on above: Outside Cardiac Proc edure (Pacemaker Placement/) Consult (Outside Car diology - [facility] /) Start: 07-20-2024 End: 07-20-2024 ambulatory Jose Fam Facility:[facility] Start: 07-20-2024 End: 07-20-[address] Beni Boone MD [facility] Work Phone: Start: 07-20-2024 End: 07-20-[address] Beni Boone MD [facility] Work Phone: Start: 07-20-2024 End: 07-20-2024 ambulatory Jose Fam Facility:[facility] Start: 07-20-2024 Non-patient / Non-visit Dr. Monserrat GUZMAN [facility] Start: 07-19-2024 End: 07-22-2024 ambulatory Jose Fam Facility:[facility] Start: 07-19-2024 End: 07-22-2024 Evaluation and management of inpatient Dr. Marvel Arreguin MD -Progressive Care Unit Work Phone: Start: 07-16-2024 ambulatory Jsoe Fam Facility :[facility] Start: 07-16-2024 Non-patient / Non-visit Abel Tracy [facility] Start: 07-14-2024 End: 07-14-2024 ambulatory JOSE FAM Facility:[facility] Start: 07-14-2024 End: 07-14-2024 Patient encounter procedure Jose Fam MD Work Phone: [facility] Comment on above: Venous insufficiency (chronic) (peripheral) (Primary Dx); Bradycardia; Rash; Cellulitis of skin Start: 07-02-2024 End: 07-02-2024 Refill Jose Fam MD Work Phone: [facility] [place] Comment on above: Refill Request Results Start: 07-01-2024 End: 07-01-2024 Subsequent hospital visit by physician Jarad [facility] [place] Work Phone: Radiology Comment on above: Foot pain, left [M79 .672] Start: 07-01-2024 End: 07-01-2024 ambulatory JOSE FAM Facility:[facility] Start: 07-01-2024 End: 07-01-2024 Patient encounter procedure Jose Fam MD Work Phone: [facility] Comment on above: Leg swelling (Primar y Dx); Foot pain, left; Rash; Cellulitis of skin Start: 07-01-2024 End: 07-01-2024 ambulatory JOSE FAM Facility:[facility] Start: 07-01-2024 End: 07-01-2024 Telephone encounter Jose Fam MD Work Phone: [facility] Comment on above: Results Start: 06-29-2024 End: 06-29-2024 Chart abstracting Jose Fam MD Work Phone: [facility] Comment on above: Outside Sbai-Lkv-WBI Ordered (Imaging) Start: 06-28-2024 End: 06-28-2024 Follow-up encounter Jose Fam MD Work Phone: [facility] Comment on above: Follow-up after appo intment with [facility] at [facility] regarding pacemaker. Start: 06-28-2024 End: 06-28-2024 Patient encounter procedure Jana Virgen -[facility] Work Phone: Start: 06-28-2024 End: 06-28-2024 ambulatory Jose Fam MD Work Phone: [facility] Start: 06-28-2024 End: 06-28-2024 ambulatory Jose Fam Facility:[facility] Start: 06-25-2024 End: 06-29-2024 Telephone encounter Jose Fam MD Work Phone: [facility] Comment on above: Results Start: 06-24-2024 End: 06-24-2024 Telephone encounter Valerie Deshpande APRN.CNP Work Phone: [facility] Comment on above: Results Start: 06-24-2024 End: 06-25-2024 ambulatory Jose Fam MD Work Phone: [facility] Comment on above: Regan's ER visit 05/23 8 Start: 06-24-2024 End: 06-24-2024 Subsequent hospital visit by physician [facility] Work Phone: Radiology Comment on above: Localized swelling o f left lower leg [R22.42] Start: 06-22-2024 End: 06-22-2024 ambulatory JOSE FAM Facility:[facility] Start: 06-22-2024 End: 06-22-2024 Subsequent hospital visit by physician [facility] [place] Work Phone: Radiology Comment on above: Injury of left knee, subsequent encounter [S89.92XD] Start: 06-22-2024 End: 06-22-2024 Patient encounter procedure Valerie Deshpande APRN.INTEGRATED CIRCUIT DESIGN ENGINEER Work Phone: [facility] Comment on above: Injury of left knee, subsequent encounter (Primary Dx); Localized swelling of left lower leg Start: 06-22-2024 End: 06-22-2024 ambulatory JOSE FAM Facility:[facility] Start: 06-17-2024 End: 06-17-2024 Emergency department patient visit Dr. Dexter Bland MD -Emergency Department Work Phone: Start: 06-14-2024 End: 06-14-2024 Chart abstracting Jose Fam MD Work Phone: [facility] Comment on above: Outside Cardiology Start: 06-14-2024 End: 06-14-2024 Patient encounter procedure Malika Montesinos [place] [facility] Work Phone: Start: 06-14-2024 End: 06-14-2024 ambulatory Jose Fam Facility:[facility] Start: 06-10-2024 End: 06-10-2024 ambulatory Jose Fam MD Work Phone: [facility] Comment on above: Regan's ER visit 05/23 Start: 06-10-2024 End: 06-10-2024 Chart abstracting Jose Fam MD Work Phone: [facility] Comment on above: ER Discharge Summary Start: 06-09-2024 ambulatory Jose Fam Facility :[facility] Start: 06-09-2024 Non-patient / Non-visit Dr. Monserrat GUZMAN -[facility] Work Phone: Start: 06-09-2024 End: 06-09-[address] Adryan Estrada MD -Cardiovascular Services Work Phone: Start: 06-09-2024 End: 06-09-2024 Emergency department patient visit Dr. Adryan Estrada MD -Emergency Department Work Phone: Start: 06-09-2024 End: 06-09-2024 Chart abstracting [facility] MD [facility] Comment on above: Outside H&P Start: 06-09-2024 End: 06-09-2024 Telephone encounter Nick Spenec MA [facility] Comment on above: Patient Update Start: 06-09-2024 ambulatory Jose Fam Facility :[facility] Start: 06-09-2024 Non-patient / Non-visit Valente Perez nd DO -[facility] Start: 06-09-2024 End: 06-09-2024 ambulatory Jose Fam Facility:[facility] Start: 05-28-2024 End: 05-28-2024 Patient encounter procedure Valerie Deshpande APRN.INTEGRATED CIRCUIT DESIGN ENGINEER Work Phone: [facility] [place] Comment on above: Essential hypertensi on (Primary Dx); Bilateral leg edema Start: 05-28-2024 End: 05-28-2024 ambulatory VALERIE DESHPANDE Facility:[facility] Start: 05-13-2024 End: 05-13-2024 ambulatory JOSE FAM Facility:[facility] Start: 05-04-2024 End: 05-04-2024 Patient encounter procedure [facility] Provider [facility] Start: 04-29-2024 End: 05-02-2024 Telephone encounter Jose Fam MD Work Phone: [facility] [place] Comment on above: Patient Question Start: 04-28-2024 End: 04-28-2024 ambulatory Jose Fam Facility:[facility] Start: 04-22-2024 End: 04-22-2024 Patient encounter procedure Jose Fam MD Work Phone: [facility] [place] Comment on above: Bacterial pneumonia (Primary Dx); Metabolic encephalopathy; Hypotension, unspecified hypotension type; Bradycardia, unspecified; Gait difficulty; Lumbar stenosis with neurogenic claudication Start: 04-22-2024 End: 04-22-2024 ambulatory Jose Fam MD Work Phone: [facility] [place] Comment on above: Plavix Start: 04-20-2024 End: 04-21-2024 Chart abstracting Nick Spence MA [facility] [place] Comment on above: Hospital F/U Refill Request Start: 04-18-2024 End: 04-18-2024 ambulatory Ana Cook RN NURSE VICE PRESIDENT OF BUSINESS DEVELOPMENT Comment on above: Patient Update Start: 04-15-2024 End: 04-15-2024 Chart abstracting Jose Fam MD Work Phone: [facility] [place] Comment on above: ER Discharge Summary (H&P) Start: 04-14-2024 ambulatory Jose Fam Facility :[facility] Start: 04-14-2024 End: 04-16-2024 Evaluation and management of inpatient Jose Josafat Facility:[facility] Start: 04-09-2024 End: 04-12-2024 Telephone encounter Jose Fam MD Work Phone: [facility] [place] Comment on above: Patient Question Start: 04-09-2024 End: 04-09-2024 ambulatory JOSE FAM Facility:[facility] Start: 04-09-2024 End: 04-09-2024 Patient encounter procedure Jose Fam MD Work Phone: [facility] [place] Comment on above: Medicare annual [facility], subsequent (Primary Dx); Essential hypertension; Mixed hyperlipidemia; Elevated fasting blood sugar; Acquired hypothyroidism; Bilateral carotid artery stenosis; Bilateral leg edema; Gastroesophageal reflux disease without esophagitis; History of CVA (cerebrovascular accident); Mild pulmonary hypertension (HCC); Familial peripheral neuropathy; Low serum vitamin B12; Obesity, Class II, BMI 35-39.9; Stasis dermatitis of both legs; Venous insufficiency (chronic) (peripheral); Advance directive discussed with patient; Pulmonary nodule; Encounter for immunization; Hearing difficulty, unspecified laterality; Tinnitus of both ears; Skin cancer screening; Esophageal dysphagia; Memory difficulties Start: 03-29-2024 End: 03-29-2024 Refill Jose Fam MD Work Phone: [facility] [place] Comment on above: Refill Request Start: 03-10-2024 End: 03-10-2024 ambulatory RYANN DIAZ Facility:[facility] Start: 03-10-2024 End: 03-10-2024 Patient encounter procedure Ryann Diaz APRN.CNP Work Phone: General Surgery Comment on above: Gall bladder stones (Primary Dx) Start: 03-09-2024 End: 03-09-2024 ambulatory Jose Fam MD Work Phone: [facility] Comment on above: Handicap Tj Start: 03-01-2024 End: 03-01-2024 Patient encounter procedure Valerie Deshpande APRN.INTEGRATED CIRCUIT DESIGN ENGINEER Work Phone: [facility] Comment on above: Yeast infection of t he skin (Primary Dx) Start: 03-01-2024 End: 03-01-2024 ambulatory VALERIE DESHPANDE Facility:[facility] Start: 02-26-2024 End: 02-27-2024 ambulatory Jose Fam MD Work Phone: [facility] Comment on above: Regan Arango Start: 02-25-2024 End: 02-25-2024 ambulatory ANGE VERDUZCO Facility:[facility] Start: 02-19-2024 End: 02-19-2024 ambulatory CANDICE KAHN Facility:[facility] Start: 02-11-2024 End: 02-11-2024 ambulatory CANDICE KAHN Facility:[facility] Start: 02-11-2024 End: 02-11-2024 Admission to establishment [facility] [place] [facility] Work Phone: Pre Anesthesia Start: 02-11-2024 End: 02-11-2024 [facility] Work [facility]: [facility] Comment on above: Pre-operative examin ation (Primary Dx); SVT (supraventricular tachycardia) (HCC); Leg edema, left; History of CVA (cerebrovascular accident); Venous insufficiency (chronic) (peripheral); Familial peripheral neuropathy; Essential hypertension; Mild pulmonary hypertension (HCC); Mixed hyperlipidemia; JESSY (obstructive sleep apnea); Pulmonary nodule; Gastroesophageal reflux disease without esophagitis; BPH with obstruction/lower urinary tract symptoms; Multiple renal cysts; Acquired hypothyroidism; Elevated fasting blood sugar; 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; History of bladder cancer; 1st degree AV block; OAB (overactive bladder); Bilateral leg edema; Bilateral carotid artery stenosis Start: 02-11-2024 End: 02-11-2024 Preprocedural examination done [facility] [place] 1 Work Phone: [facility] Work Phone: Start: 02-11-2024 End: 02-11-2024 ambulatory JOSE FAM Facility:[facility] Start: 02-11-2024 Encounter for other preprocedural examination JOSE FAM [facility] Start: 02-11-2024 End: 02-11-2024 ambulatory JOSE FAM Facility:[facility] Start: 02-09-2024 End: 02-09-2024 ambulatory Jose Fam MD Work Phone: Family [facility] [place] Comment on above: Medication Instructi ons Start: 02-09-2024 End: 02-09-2024 E-mail encounter from caregiver Jose Fam MD Work Phone: [facility] [place] Start: 02-09-2024 End: 02-09-2024 Telephone encounter Jose Fam MD Work Phone: [facility] [place] Comment on above: Rx refill; question Start: 01-26-[address] [facility] Nurse [facility] Work Phone: General Surgery Comment on above: Laparoscopic Cholecy stectomy information (gallbladder removal) Start: 01-26-2024 E-mail encounter fro m caregiver Nurse [facility] Work Phone: General Surgery Start: 01-26-2024 End: 01-26-2024 ambulatory JOSE FAM Facility:[facility] Start: 01-26-2024 End: 01-26-2024 Patient encounter procedure Ange Verduzco MD Work Phone: General Surgery Comment on above: Right upper quadrant abdominal pain; Gall bladder stones Start: 01-20-2024 End: 01-20-2024 Patient encounter procedure Valerie Deshpande APRN.CNP Work Phone: Family [facility] [place] Comment on above: Yeast infection of t he skin (Primary Dx) Start: 01-20-2024 End: 01-20-2024 ambulatory JOSE FAM Facility:[facility] Start: 01-16-2024 Telephone encounter Jose Fam MD Work Phone: [facility] [place] Comment on above: Results Start: 01-16-2024 End: 01-16-2024 ambulatory JOSE FAM Facility:[facility] Start: 01-16-2024 End: 01-16-2024 Subsequent hospital visit by physician [facility] Work Phone: Nuclear Medicine Comment on above: Right upper quadrant abdominal pain [R10.11] Start: 01-13-2024 End: 01-13-2024 ambulatory JOSE FAM Facility:[facility] Start: 01-13-2024 End: 01-13-2024 Patient encounter procedure Valerie Deshpande APRN.CNP Work Phone: [facility] [place] Comment on above: Yeast infection of t he skin (Primary Dx); Intertrigo Start: 01-07-[address] Ochoa MD Work Phone: Urology Comment on above: Refill Request Start: 01-07-2024 End: 01-07-2024 Patient encounter procedure Jose Fam MD Work Phone: [facility] [place] Comment on above: Right upper quadrant abdominal pain (Primary Dx); Gall bladder stones; Calculus of gallbladder without cholecystitis without obstruction Start: 01-07-2024 End: 01-07-2024 ambulatory JOSE FAM Facility:[facility] Start: 01-04-2024 ambulatory Jose chaudhary MD Work Phone: [facility] [place] Start: 01-04-2024 Patient encounter procedure Jose Fam MD Work Phone: [facility] [place] Comment on above: Referral Start: 01-03-2024 End: 01-03-2024 Emergency department patient visit Jose Fam Facility:[facility] Start: 01-02-2024 ambulatory Jose chaudhary MD Work Phone: [facility] [place] Comment on above: Prescriptions Start: 01-01-2024 Refill Jose chaudhary MD Work Phone: [facility] Comment on above: Refill Request Start: 12-31-2023 Telephone encounter Aisha Spence APRN.INTEGRATED CIRCUIT DESIGN ENGINEER Work Phone: [facility] Comment on above: Results Start: 12-28-2023 Telephone encounter Aisha Julien SEN.INTEGRATED CIRCUIT DESIGN ENGINEER Work Phone: [facility] Comment on above: Results Start: 12-27-2023 End: 12-27-2023 ambulatory JOSE FAM Facility:[facility] Start: 12-27-2023 End: 12-27-2023 Patient encounter procedure Mike Adler MD Work Phone: [facility] Comment on above: Intertrigo (Primary Dx); Ulcers, skin (HCC) Start: 12-16-2023 Chart abstracting Jose stephenson MD Work Phone: [facility] Comment on above: Outside ED Start: 12-16-2023 End: 12-16-2023 Emergency department patient visit Jose Fam Facility:[facility] Start: 12-01-2023 End: 12-02-2023 ambulatory JOSE Garrison JOSAFAT Facility:[facility] Start: 12-01-2023 End: 12-01-2023 Patient encounter procedure Nikko Jose MD Work Phone: Cardiology Comment on above: SVT (supraventricula r tachycardia) ([facility]) (Primary Dx); Essential hypertension Start: 11-26-2023 Telephone encounter Jose Fam MD Work Phone: [facility] Comment on above: requesting prescript ion for a walker Start: 11-03-2023 End: 11-03-2023 Orders Only Ange Mondragon APRN.INTEGRATED CIRCUIT DESIGN ENGINEER, DNP Work Phone: Urology Comment on above: OAB (overactive blad hunter) (Primary Dx) Pelvic floor exercis es BPH associated with nocturia (Primary Dx); OAB (overactive bladder); History of bladder cancer; Acquired buried penis; At risk for falls; Urgency of urination; Urinary frequency; BPH with obstruction/lower urinary tract symptoms Start: 10-21-2023 Refill Jose chaudhary MD Work Phone: [facility] Comment on above: Refill Request Start: 10-09-2023 End: 10-09-2023 Patient encounter procedure Valerie Deshpande APRN.[facility] Work Phone: [facility] Comment on above: Essential hypertensi on (Primary Dx); Chronic insomnia; Mixed hyperlipidemia; Gastroesophageal reflux disease without esophagitis; Bilateral leg edema; Mild pulmonary hypertension (HCC); BPH with obstruction/lower urinary tract symptoms; Pulmonary nodule; Acquired hypothyroidism; Elevated fasting blood sugar; Medication management; SVT (supraventricular tachycardia) (HCC) Start: 09-09-2023 End: 09-09-[address] Ochoa MD Work Phone: Urology Comment on above: BPH with obstruction /lower urinary tract symptoms (Primary Dx); Malignant neoplasm of urinary bladder, unspecified site (HCC) Start: 08-26-2023 End: 08-26-[address] Ochoa MD Work Phone: Urology Comment on above: BPH with obstruction /lower urinary tract symptoms (Primary Dx); Malignant neoplasm of urinary bladder, unspecified site (HCC) Start: 08-13-2023 Telephone encounter Jose Fam MD Work Phone: [facility] Comment on above: Results Start: 08-06-2023 Telephone encounter Ange chaves APRN.CNP, DNP Work Phone: Urology Comment on above: Medication Problem ( Too expensive) Start: 08-04-2023 Telephone encounter Ange chaves APRN.CNP, DNP Work Phone: Urology Start: 08-04-2023 End: 08-04-2023 Patient encounter procedure Ange Mondragon APRN.CNP, DNP Work Phone: Urology Comment on above: BPH with obstruction /lower urinary tract symptoms (Primary Dx); OAB (overactive bladder); History of bladder cancer; Acquired buried penis; Screening for genitourinary condition; At risk for falls; Urgency of urination Start: 07-31-2023 Refill Phoebe Yancey on PA-C Work Phone: [facility] [place] Comment on above: Refill Request Start: 07-21-2023 Telephone encounter Valerie manning APRN.INTEGRATED CIRCUIT DESIGN ENGINEER Work Phone: [facility] [place] Comment on above: Results Start: 05-23-2023 End: 05-23-2023 Patient encounter procedure Jose Fam MD Work Phone: [facility] [place] Comment on above: Coccyxdynia (Primary Dx) Start: 05-11-2023 End: 05-11-2023 Patient encounter procedure Aisha Spence APRN.INTEGRATED CIRCUIT DESIGN ENGINEER Work Phone: [facility] Comment on above: Skin infection (Prim casandra Dx); Rash Start: 05-02-2023 Telephone encounter Jose Fam MD Work Phone: [facility] [place] Comment on above: Results Start: 04-21-2023 End: 04-21-2023 Patient encounter procedure Nikko Jose MD Work Phone: Cardiology Comment on above: SVT (supraventricula r tachycardia) [I47.10] (Primary Dx); 1st degree AV block; Essential hypertension Start: 04-15-2023 Telephone encounter Valerie manning APRN.INTEGRATED CIRCUIT DESIGN ENGINEER Work Phone: [facility] [place] Comment on above: Results Start: 04-11-2023 End: 04-11-2023 Subsequent hospital visit by physician [facility] ([facility]-Stat) Work Phone: Cat Scan Comment on above: Lung nodules [R91.8] Start: 04-09-2023 Telephone encounter Nick Spence MA [facility] [place] Comment on above: Orders Start: 04-09-2023 End: 04-09-2023 Patient encounter procedure Jose Fam MD Work Phone: [facility] Work Phone: Comment on above: Medicare annual well ness visit, subsequent (Primary Dx); Acquired hypothyroidism; Chronic insomnia; Essential hypertension; Mixed hyperlipidemia; Elevated fasting blood sugar; Gastroesophageal reflux disease without esophagitis; Bilateral carotid artery stenosis; History of CVA (cerebrovascular accident); Acute, but ill-defined, cerebrovascular disease; Bilateral leg edema; Mild pulmonary hypertension (HCC); SVT (supraventricular tachycardia); Familial peripheral neuropathy; Low serum vitamin B12; Neuropathy; Pulmonary nodule; Stasis dermatitis of both legs; Venous insufficiency (chronic) (peripheral); BPH with obstruction/lower urinary tract symptoms; History of bladder cancer; Lumbar stenosis with neurogenic claudication; Gait difficulty; Advance directive discussed with patient; Skin cancer screening; Skin lesions; Balance problem; At risk for falls; Encounter for immunization Start: 03-13-2023 End: 03-13-2023 Subsequent hospital visit by physician Jarad [facility] [place] Work Phone: Radiology Comment on above: Foot injury, left, i nitial encounter [S99.922A] Start: 03-13-2023 End: 03-13-2023 Patient encounter procedure Khoa Womack APRN.INTEGRATED CIRCUIT DESIGN ENGINEER Work Phone: [facility] Comment on above: Foot injury, left, i nitial encounter (Primary Dx) Start: 03-12-2023 Telephone encounter Jose Fam MD Work Phone: [facility] [place] Comment on above: Patient Update Start: 03-02-2023 Refill Jose chaudhary MD Work Phone: [facility] [place] Comment on above: Refill Request Start: 02-20-2023 Refill Valerie wren APRN.INTEGRATED CIRCUIT DESIGN ENGINEER Work Phone: [facility] [place] Comment on above: Refill Request Start: 02-08-2023 Telephone encounter Jose Fam MD Work Phone: [facility] [place] Comment on above: Results Start: 01-07-2023 MC Get Medical Advice Jose Fam MD Work Phone: [facility] [place] Comment on above: Refills Start: 12-19-2022 Telephone encounter Jose Fam MD Work Phone: [facility] [place] Comment on above: Patient Update Start: 12-12-2022 Telephone encounter Valerie manning APRN.INTEGRATED CIRCUIT DESIGN ENGINEER Work Phone: [facility] Comment on above: Results Start: 12-11-2022 End: 12-11-2022 Patient encounter procedure Lucas Ramirez DO Work Phone: Cardiology Comment on above: Lightheaded (Primary Dx); SVT (supraventricular tachycardia) (HCC); Essential hypertension; Mixed hyperlipidemia; JESSY (obstructive sleep apnea) Start: 12-06-2022 End: 12-06-2022 Patient encounter procedure Valerie Deshpande APRN.INTEGRATED CIRCUIT DESIGN ENGINEER Work Phone: [facility] Comment on above: Acquired hypothyroid ism (Primary Dx); Junctional bradycardia; Weakness of both lower extremities; 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, unspecified blood vessel laterality (HCC) Start: 12-05-2022 Telephone encounter Jose Fam MD Work Phone: [facility] Comment on above: Results Start: 11-29-2022 End: 11-29-2022 [facility] Start: 11-29-2022 Telephone encounter Jose Fam MD Work Phone: [facility] Comment on above: wifes concerns Start: 11-26-2022 Refill Jose chaudhary MD Work Phone: [facility] Comment on above: Refill Request Start: 11-03-[address] Ochoa MD Work Phone: [facility] Comment on above: Refill Request Start: 10-21-2022 Telephone encounter Jose Fam MD Work Phone: [facility] Comment on above: supplement question Start: 10-02-2022 End: 10-02-2022 Patient encounter procedure Jose Fam MD Work Phone: [facility] Comment on above: Essential hypertensi on (Primary Dx); Mixed hyperlipidemia; Elevated fasting blood sugar; Bilateral leg edema; Gastroesophageal reflux disease without esophagitis; Acquired hypothyroidism; SVT (supraventricular tachycardia) (HCC); Mild pulmonary hypertension (HCC); Bilateral carotid artery stenosis; History of CVA (cerebrovascular accident); Vertigo following cerebrovascular accident; Familial peripheral neuropathy; Venous insufficiency (chronic) (peripheral); Stasis dermatitis of both legs; Neuropathy; Morbid obesity with body mass index (BMI) of 40.0 to 44.9 in adult (HCC); Seborrheic keratoses Start: 09-23-2022 End: 09-23-2022 Patient encounter procedure Nikko Jose MD Work Phone: Cardiology Comment on above: Primary hypertension (Primary Dx); Essential hypertension; SVT (supraventricular tachycardia) ([facility]) Start: 09-17-2022 ambulatory Jose chaudhary MD Work Phone: [facility] [place] Comment on above: Script to [facility] Refill Request Start: 09-14-2022 Get Medical Advice Jose Fam MD Work Phone: [facility] [place] Comment on above: Refills Start: 08-27-2022 Telephone encounter Nikko Jose MD Work Phone: Cardiology Comment on above: [facility] Start: 08-06-2022 End: 08-06-2022 Patient encounter procedure Phoebe Muro PA-C Work Phone: [facility] [place] Comment on above: Fall, initial encoun ter (Primary Dx); Injury of head, initial encounter; Lung nodules Start: 08-02-2022 Telephone encounter Jose Fam MD Work Phone: [facility] [place] Comment on above: [facility] ER- fall/hit head Start: 08-01-2022 End: 08-02-2022 Emergency department patient visit HERI MEREDITH Facility:B Start: 08-01-2022 End: 08-02-2022 Emergency department patient visit HERI MEREDITH DO [facility] Start: 07-23-2022 Telephone encounter Nikko Jose MD Work Phone: Cardiology Comment on above: Results Start: 07-23-2022 End: 07-23-2022 Patient encounter procedure Phoebe Muro PA-C Work Phone: [facility] Comment on above: Seborrheic keratoses (Primary Dx); Open wound of skin; Mixed hyperlipidemia; Essential hypertension; Acquired hypothyroidism; Elevated fasting blood sugar Start: 07-04-2022 Telephone encounter Jose Fam MD Work Phone: [facility] Comment on above: Medication Problem Start: 07-01-2022 Telephone encounter Phoebe ames PA-C Work Phone: [facility] Comment on above: Results Start: 07-01-2022 End: 07-01-2022 Patient encounter procedure Nikko Jose MD Work Phone: Cardiology Comment on above: SVT (supraventricula r tachycardia) (HCC) (Primary Dx); Essential hypertension; Mixed hyperlipidemia; 1st degree AV block; JESSY (obstructive sleep apnea); Obesity, Class II, BMI 35-39.9 Start: 06-27-2022 Refill Phoebemaddy Yancey on PA-C Work Phone: [facility] Comment on above: Refill Request Start: 06-26-2022 End: 06-26-2022 Patient encounter procedure Phoebe Muro PA-C Work Phone: [facility] Comment on above: Open wound of skin ( Primary Dx); Seborrheic keratoses Start: 04-16-2022 Refill Phoebe Yancey on PA-C Work Phone: [facility] Comment on above: Results Start: 04-15-2022 End: 04-15-[address] Jose Fam Work Phone: [facility] Work Phone: Start: 04-15-2022 End: 04-15-[address] Jose Fam Work Phone: [facility]-Radiology, [facility] Start: 04-12-2022 End: 04-12-2022 Patient encounter procedure Phoebe Muro PA-C Work Phone: [facility] Comment on above: Memory difficulties Start: 03-21-2022 End: 03-21-2022 Patient encounter procedure Jose Fam MD Work Phone: [facility] Comment on above: Medicare annual well ness visit, subsequent (Primary Dx); Essential hypertension; Mixed hyperlipidemia; Acquired hypothyroidism; Gastroesophageal reflux disease without esophagitis; Elevated fasting blood sugar; History of CVA (cerebrovascular accident); Mild pulmonary hypertension (HCC); SVT (supraventricular tachycardia) (HCC); Bilateral leg edema; Neuropathy; Venous insufficiency (chronic) (peripheral); Morbid obesity with body mass index (BMI) of 40.0 to 44.9 in adult (HCC); Gait difficulty; Balance problem; Bilateral carotid artery stenosis; Pharyngoesophageal dysphagia; Living will on file; Advance directive discussed with patient; Encounter for immunization Start: 02-02-2022 ambulatory Jose chaudhary MD Work Phone: [facility] Comment on above: [place] Start: 01-11-2022 End: 01-11-[address] Jose Fam Work Phone: [facility] Start: 01-03-2022 Telephone encounter Jose Fam MD Work Phone: [facility] Comment on above: Results Start: 01-01-2022 ambulatory Phoebe vilchis PA-C Work Phone: [facility] Comment on above: Monitor Start: 12-27-2021 Telephone encounter Phoebe PEDROZA-C Work Phone: [facility] Comment on above: Results Start: 12-19-2021 End: 12-19-2021 Subsequent hospital visit by physician Holter Monitor 1 Cardiology Lab Comment on above: Transient global amn esia [G45.4] Start: 12-18-2021 Telephone encounter Phoebe PEDROZA-C Work Phone: [facility] Comment on above: Results Start: 12-17-2021 End: 12-17-2021 Subsequent hospital visit by physician [facility] [employer] [facility] (I-Stat/1.5t) Work Phone: Radiology Comment on above: Transient global amn esia [G45.4] Start: 12-11-2021 Telephone encounter Phoebe ames PA-C Work Phone: [facility] Comment on above: Results Start: 12-10-2021 End: 12-10-2021 Patient encounter procedure Phoebe Muro PA-C Work Phone: [facility] Comment on above: Transient global amn esia (Primary Dx); Confusion; History of CVA (cerebrovascular accident); Essential hypertension; Mixed hyperlipidemia; Acquired hypothyroidism; Elevated fasting blood sugar Start: 09-20-2021 Telephone encounter Jose Fam MD Work Phone: [facility] Comment on above: Results Start: 09-19-[address] Ochoa MD Work Phone: [facility] Comment on above: Refill Request Start: 09-18-2021 End: 09-18-2021 Patient encounter procedure Phoebe Muro PA-C Work Phone: [facility] Comment on above: Essential hypertensi on (Primary Dx); Neuropathy; Bilateral leg edema; Mixed hyperlipidemia; Mild pulmonary hypertension (HCC); SVT (supraventricular tachycardia) ([facility]); JESSY (obstructive sleep apnea); Gastroesophageal reflux disease without esophagitis; BPH with obstruction/lower urinary tract symptoms; Elevated fasting blood sugar; Acquired hypothyroidism; Morbid obesity with body mass index (BMI) of 40.0 to 44.9 in adult (HCC) Start: 09-17-[address] Ochoa MD Work Phone: [facility] Comment on above: Refill Request Start: 03-21-[address] Ochoa Jr., MD Work Phone: [facility] Work Phone: Start: 12-19-2015 End: 09-04-2018 Patient encounter status Jose Fam MD Work Phone: [facility] Procedures Date Procedure Procedure Detail Performing Clinician Start: 10-31-[address] Jose Fam MD Work Phone: Start: 10-28-2024 Carbon dioxide measurement, partial pressure Dr. Jose Fam MD Work Phone: Start: 10-28-2024 Gases blood o2 satur ation only direct tristan Dr. Jose Fam MD Work Phone: Start: 10-28-2024 Measurement of parti al pressure of oxygen in blood Dr. Jose Fam MD Work Phone: Start: 10-28-[address] Jose Fam MD Work Phone: Start: 10-28-2024 Plain chest X-ray Dr. Angelo Fam MD Work Phone: Start: 10-28-2024 Urnls dip stick/tabl et reagent auto microscopy Dr. Jose Fam MD Work Phone: Start: 10-28-2024 X-ray of chest, PA a nd lateral views Dr. Jose Fam MD Work Phone: Start: 10-28-2024 SARS-CoV-2, Influenz a & RSV (PCR) Dr. Jose Fam MD Work Phone: Start: 10-28-[address] Taisha Fam MD Work Phone: Start: 10-28-[address] Jose Fam MD Work Phone: Start: 10-27-2024 X-ray of chest, PA a nd lateral views Dr. Jose Fam MD Work Phone: Start: 10-25-2024 Radiologic exam ches t 2 views Jose Fam MD Work Phone: Start: 08-31-[address] Jose Fam MD Work Phone: Start: 08-19-2024 X-ray of knee, four or more views Dr. Jose Fam MD Work Phone: Start: 08-17-2024 Measurement of renal function Dr. Jose Fam MD Work Phone: Comment on above: GFR Calc Start: 08-11-[address] Jose Fam MD Work Phone: Start: 08-04-[address] Jose Fam MD Work Phone: Start: 07-20-[address] Jose Fam MD Work Phone: Start: 07-20-2024 Measurement of renal function Dr. Jose Fam MD Work Phone: Comment on above: GFR Calc Start: 07-20-2024 Plain chest X-ray Dr. Angelo Fam MD Work Phone: Start: 07-01-2024 Radex foot complete minimum 3 views Jose Fam MD Work Phone: Start: 06-28-2024 X-ray of chest, PA a nd lateral views Dr. Jose Fam MD Work Phone: Start: 06-24-2024 Dup-scan xtr veins unilateral/limited study Valerie Deshpande BANQUET CAPTAIN.INTEGRATED CIRCUIT DESIGN ENGINEER Work Phone: Start: 06-17-2024 X-ray of knee, four or more views Dr. Jose Fam MD Work Phone: Start: 06-14-2024 Evaluation of diagno stic study results Dr. Jose Fam MD Work Phone: Start: 06-09-2024 Plain chest X-ray Dr. Angelo Fam MD Work Phone: Start: 04-09-2024 PFIZER-BIONTECH COVI D-19 VACCINE AGE 12+ YR (COMIRNAT) Jose Fam MD Work Phone: Start: 02-11-2024 Ecg routine ecg w/le ast 12 lds i&r only [facility] Provider Start: 01-16-2024 Hepatobil syst imag inc gb w/pharma intervenj Jose Fam MD Work Phone: Start: 11-03-2023 End: 11-03-2023 Urnls dip stick/tablet rgnt auto w/o microscopy Ange Mondragon BANQUET CAPTAIN.INTEGRATED CIRCUIT DESIGN ENGINEER, DNP Work Phone: Start: 10-09-2023 Adult depression scr eening assessment [facility] Work Phone: Start: 09-09-2023 Urnls dip stick/tabl et rgnt auto w/o microscopy Lane Ochoa MD Work Phone: Start: 08-26-2023 Culture bacterial quanttative colony count urine Lane Ochoa MD Work Phone: Start: 08-26-2023 Urnls dip stick/tabl et rgnt auto w/o microscopy Lane Ochoa MD Work Phone: Start: 04-11-2023 Ct thorax w/o contra st material Phoebe Muro PA-C Work Phone: Start: 04-09-2023 INFLUENZA VACCINE, P RSV FREE, AGE 65+ YR, HIGH DOSE, QUADRIVALENT (FLUZONE HIGH-DOSE) Jose Fam MD Work Phone: Start: 03-13-2023 Radex foot complete minimum 3 views Khoa Womack BANQUET CAPTAIN.INTEGRATED CIRCUIT DESIGN ENGINEER Work Phone: Start: 11-29-2022 Plain chest X-ray Start: 06-26-2022 Cul bact xcpt urine blood/stool aerobic isol Phoebe Muro PA-C Work Phone: Start: 04-15-[address] Ashlee Fam Work Phone: Start: 03-21-2022 INFLUENZA SEASONAL QUADRIVALENT HIGH DOSE AGE 65+ Jose Fam MD Work Phone: Start: 03-21-2022 LIQVID-BIONTeMindful COVI D-19 BIVALENT BOOSTER VACCINE, AGE 12+ YR Jose Fam MD Work Phone: Start: 12-19-2021 48 HR HOLTER MONITOR Ra ifrah Muro PA-C Work Phone: Start: 12-17-2021 Mri brain brain stem w/o contrast material Phoebe Muro PA-C Work Phone: Plan of Treatment Date Care Activity Detail Author Start: 11-18-2027 Diabetes Screening Diabetes Screening [facility] Start: 09-18-2027 Diabetes Screening Diabetes Screening [facility] Start: 09-15-2027 Diabetes Screening Diabetes Screening [facility] Start: 05-13-2027 Diabetes Screening Diabetes Screening [facility] Start: 03-29-2027 Diabetes Screening Diabetes Screening [facility] Start: 02-10-2027 Diabetes Screening Diabetes Screening [facility] Start: 09-28-2026 Diabetes Screening Diabetes Screening [facility] Start: 03-26-2026 Diabetes Screening Diabetes Screening [facility] Start: 10-08-2025 Covid-19 Vaccine () Covid-19 Vaccine () [facility] Comment on above: Postponed from 10/08/2024 (Declined at t his time) Start: 09-23-2025 DIABETES SCREEN DIABETES SCREEN [facility] Start: 09-23-2025 Diabetes Screening Diabetes Screening [facility] Start: 04-11-2025 End: 04-11-2025 Patient encounter procedure 04/11/2025 2:00 PM EDT Office Visit [facility] [address] [place] [address] Jose Fam MD [address] [place] [address] [id number] medicare wellness exam [facility] Comment on above: medicare wellness exam Start: 04-09-2025 End: 07-09-2025 CBC W Auto Differential panel - Blood COMPLETE BLOOD COUNT AND DIFFERENTIAL Lab Routine Essential hypertension Expected: 04/09/2025, Expires: 07/09/2025 [facility] Comment on above: Expected: 04/09/2025, Expires: Start: 04-09-2025 End: 07-09-2025 Comprehensive metabolic 2000 panel - Serum or Plasma COMPREHENSIVE METABOLIC PANEL Lab Routine Essential hypertension Expected: 04/09/2025, Expires: 07/09/2025 [facility] Comment on above: Expected: 04/09/2025, Expires: Start: 04-09-2025 End: 07-09-2025 Hemoglobin A1c in Blood HEMOGLOBIN A1C Lab Routine Elevated fasting blood sugar Expected: 04/09/2025, Expires: 07/09/2025 [facility] Comment on above: Expected: 04/09/2025, Expires: Start: 04-09-2025 End: 07-09-2025 LIPID PANEL, NONFASTING LIPID PANEL, NONFASTING Lab Routine Mixed hyperlipidemia Expected: 04/09/2025, Expires: 07/09/2025 [facility] Comment on above: Expected: 04/09/2025, Expires: Start: 04-09-2025 RSV Vaccine (1 - 1-dose 75+ series) RSV Vaccine (1 - 1-dose 75+ series) [facility] Comment on above: Postponed from 11/26/2014 (Insurance Cov erage) Start: 04-09-2025 End: 07-09-2025 Thyrotropin [Units/volume] in Serum or Plasma THYROID STIMULATING HORMONE Lab Routine Acquired hypothyroidism Expected: 04/09/2025, Expires: 07/09/2025 [facility] Comment on above: Expected: 04/09/2025, Expires: Start: 04-09-2025 End: 04-09-2025 ambulatory 04/09/2025 10:00 AM EDT Results Only [facility] [address] [facility] [place] [address] [facility] Start: 03-19-2025 DIABETES SCREEN DIABETES SCREEN [facility] Start: 02-01-2025 Urine microalbumin profile [facility] Start: 01-07-2025 End: 01-07-2025 Patient encounter procedure 01/07/2025 11:20 AM EDT Appointment Cat Scan [address] [place] [address] Dx: Lung nodules [R91.8]; Pulmonary nodule [R91.1] Cat Scan Comment on above: Dx: Lung nodules [R91.8]; Pulmonary nodu le [R91.1] Start: 01-05-2025 End: 01-05-2025 Patient encounter procedure 01/05/2025 2:40 PM EDT Office Visit [facility] [place] [address] [facility] [place] [address] Jose Fam MD [address] [place] [address] 6 week follow up Cough SOB HDZ Leg Edema [facility] Comment on above: 6 week follow up Cough SOB HDZ Leg Edema Start: 01-04-2025 End: 01-04-2025 Patient encounter procedure 01/04/2025 10:30 AM EDT Office Visit Urology [address] [place] [address] Claude Alfaro PA-C [address] [place] [address] 1 YR F/U follow up BPH: UA, PVR, IPSS Urology Comment on above: 1 YR F/U follow up BPH: UA, PVR, IPSS Start: 01-03-2025 End: 01-03-2025 Patient encounter procedure 01/03/2025 10:30 AM EDT Office Visit Urology [address] [place] [address] Ange Mondragon APRN.INTEGRATED CIRCUIT DESIGN ENGINEER, DNP [address] [place], [place] [phone] 1 YR F/U follow up BPH: UA, PVR, IPSS Urology Comment on above: 1 YR F/U follow up BPH: UA, PVR, IPSS Start: 12-31-2024 End: 12-31-2024 ambulatory 12/31/2024 9:45 AM EDT OT/PT/Speech Visit [facility] [address] [place] [id number] Ronda Curry, OT/L Drivers evaluation [facility] Comment on above: Drivers evaluation Start: 12-20-2024 End: 12-20-2024 Nursing evaluation of patient and report 12/20/2024 9:45 AM EDT Nurse Visit Cardiology [address] [place], [place] [phone] W[facility], Nurse Card [address] [place], [place] [phone] Dx: SOB (shortness of breath) [R06.02]; HDZ (dyspnea on exertion) [R06.09] Cardiology Comment on above: Dx: SOB (shortness of breath) [R06.02]; HDZ (dyspnea on exertion) [R06.09] Start: 12-20-2024 End: 12-20-2024 Patient encounter procedure [facility] Comment on above: Dx: SOB (shortness of breath) [R06.02]; HDZ (dyspnea on exertion) [R06.09] Start: 12-13-2024 End: 12-13-2024 Patient encounter procedure 12/13/2024 3:20 PM EDT Office Visit Cardiology [address] [place] [id number] Nikko Jose MD [address] [facility] [address] [place], [place] [id number] 1 yr follow up Cardiology Comment on above: 1 yr follow up Start: 12-10-2024 DIABETES SCREEN DIABETES SCREEN [facility] Start: 12-08-2024 End: 12-08-2024 Patient encounter procedure 12/08/2024 1:40 PM EDT Office Visit [facility] [address] [place] [address] Jose Fam MD [address] [place], [place] [phone] 6 week follow up Cough SOB HDZ Leg Edema [facility] Comment on above: 6 week follow up Cough SOB HDZ Leg Edema Start: 11-29-2024 ambulatory Facility:[facility] Start: 11-17-2024 End: 11-17-2024 Patient encounter procedure 11/17/2024 8:00 AM EDT Office Visit [facility] [address] [place] [address] Jose Fam MD [address] [place], [place] [phone] Hospital Follow up [facility] Comment on above: Hospital Follow up Start: 11-16-2024 End: 11-16-2024 ambulatory 11/16/2024 10:30 AM EDT Results Only [place] [facility] Laboratory [address] [place] [address] [place] [facility] Start: 11-15-2024 End: 02-14-2025 Thyrotropin [Units/volume] in Serum or Plasma THYROID STIMULATING HORMONE Lab Routine Acquired hypothyroidism Expected: 11/15/2024, Expires: 02/14/2025 [facility] Work Phone: Comment on above: Expected: 11/15/2024, Expires: Start: 11-09-2024 End: 11-09-2024 ambulatory PULM [facility] Comment on above: Dx: SOB (shortness of breath) [R06.02]; HDZ (dyspnea on exertion) [R06.09] Start: 11-05-2024 End: 11-05-2024 Patient encounter procedure 11/05/2024 11:20 AM EDT Office Visit Cardiology [address] [place] [address] Dx: SOB (shortness of breath) [R06.02]; HDZ (dyspnea on exertion) [R06.09] Cardiology Comment on above: Dx: SOB (shortness of breath) [R06.02]; HDZ (dyspnea on exertion) [R06.09] Start: 11-01-2024 End: 11-01-2024 Patient encounter procedure 11/01/2024 2:30 PM EDT Office Visit Urology [address] [place] [address] Ange Mondragon APRN.INTEGRATED CIRCUIT DESIGN ENGINEER, DNP [address] [place] [address] 1 YR F/U follow up BPH: UA, PVR, IPSS Urology Comment on above: 1 YR F/U follow up BPH: UA, PVR, IPSS Start: 11-01-2024 End: 11-01-2024 ambulatory 11/01/2024 9:45 AM EDT OT/PT/Speech Visit [facility] [place] [address] [place] [address] Ronda Curry OT/L Drivers evaluation [facility] [place] Comment on above: Drivers evaluation Start: 10-31-2024 Patient discharge [facility] Start: 10-30-2024 Patient referral to dietitian [facility] Start: 10-29-2024 Referral to occupational therapist [facility] Start: 10-29-2024 Referral to service [facility] Start: 10-28-2024 Following clinical pathway protocol [facility] Start: 10-28-2024 Ambulation without limitation [facility] Start: 10-28-2024 Elevation of affected extremity [facility] Start: 10-28-2024 Insertion of catheter into peripheral vein [facility] Start: 10-28-2024 Measuring intake and output [facility] Start: 10-28-2024 Oxygen therapy [facility] Start: 10-28-2024 Patient education [facility] Start: 10-28-2024 Providing care according to standard [facility] Start: 10-28-2024 Hospital admission, emergency, from emergency room, medical nature [facility] Start: 10-28-2024 Admission procedure [facility] Start: 10-28-2024 [facility] Start: 10-27-2024 [facility] Start: 10-27-2024 End: 10-27-2024 [facility] Start: 10-27-2024 [facility] Start: 10-08-2024 Anxiety Screening Anxiety Screening [facility] Start: 10-08-2024 Covid-19 Vaccine ( season) Covid-19 Vaccine () [facility] Comment on above: Postponed from 02/21/2023 (Declined at t his time) Start: 10-08-2024 Covid-19 Vaccine () Covid-19 Vaccine () [facility] Start: 10-08-2024 Depression Screening Depression Screening [facility] Start: 10-08-2024 End: 10-08-2024 Patient encounter procedure 10/08/2024 12:40 PM EDT Office Visit [facility] [place] [address] [place] [address] Phoebe Muro PA-C [address] [place] [address] 6 month follow up - prev 20 [facility] [place] Comment on above: 6 month follow up - prev 20 Start: 09-24-2024 End: 12-24-2024 Cobalamin (Vitamin B12) [Mass/volume] in Serum or Plasma VITAMIN B12 Lab Routine Low serum vitamin B12 Expected: 09/24/2024, Expires: 12/24/2024 [facility] Comment on above: Expected: 09/24/2024, Expires: Start: 09-24-2024 End: 12-24-2024 Comprehensive metabolic 2000 panel - Serum or Plasma COMPREHENSIVE METABOLIC PANEL Lab Routine Essential hypertension Mixed hyperlipidemia Elevated fasting blood sugar Expected: 09/24/2024, Expires: 12/24/2024 [facility] Work Phone: Comment on above: Expected: 09/24/2024, Expires: Start: 09-24-2024 End: 12-24-2024 Hemoglobin A1c in Blood HEMOGLOBIN A1C Lab Routine Elevated fasting blood sugar Expected: 09/24/2024, Expires: 12/24/2024 [facility] Comment on above: Expected: 09/24/2024, Expires: Start: 09-24-2024 End: 12-24-2024 LIPID PANEL, NONFASTING LIPID PANEL, NONFASTING Lab Routine Essential hypertension Mixed hyperlipidemia Bilateral carotid artery stenosis Expected: 09/24/2024, Expires: 12/24/2024 [facility] Comment on above: Expected: 09/24/2024, Expires: Start: 09-24-2024 End: 12-24-2024 Thyrotropin [Units/volume] in Serum or Plasma THYROID STIMULATING HORMONE Lab Routine Acquired hypothyroidism Expected: 09/24/2024, Expires: 12/24/2024 [facility] Comment on above: Expected: 09/24/2024, Expires: Start: 09-18-2024 DIABETES SCREEN DIABETES SCREEN [facility] Start: 09-15-2024 End: 12-15-2024 Basic metabolic 2000 panel - Serum or Plasma BASIC METABOLIC PANEL Lab Routine Hypernatremia Expected: 09/15/2024, Expires: 12/15/2024 [facility] Comment on above: Expected: 09/15/2024, Expires: Start: 09-14-2024 End: 09-14-2024 Patient encounter procedure 09/14/2024 11:20 AM EDT Office Visit [facility] [place] [address] [place] [address] Jose Fam MD [address] [place], [place] [phone] [facility] follow up for having a pacemaker placed. See [facility] 09/06/24. [facility] Comment on above: [facility] 09/04/24 Hospital follow u p for having a pacemaker placed. See [facility] 09/06/24. Start: 09-06-2024 Development of care plan [facility] Start: 09-04-2024 Patient discharge [facility] Start: 09-02-2024 Referral to service [facility] Start: 09-01-2024 [facility] Start: 08-19-2024 Developing a treatment plan [facility] Start: 08-19-2024 Development of care plan [facility] Start: 08-05-2024 [facility] Start: 07-29-2024 Speech therapy management [facility] Start: 07-28-2024 Speech therapy assessment [facility] Start: 07-27-2024 Esophagogastroduodenoscopy submucosal injection UPPR GI SCOPE W/SUBMUC INJ [facility] Start: 07-27-2024 Patient discharge [facility] Start: 07-26-2024 Referral to gastroenterology service [facility] Start: 07-23-2024 Speech therapy assessment [facility] Start: 07-23-2024 Provision of activity privileges [facility] Start: 07-23-2024 [facility] Start: 07-23-2024 Developing a treatment plan [facility] [facility] Start: 07-23-2024 Development of care plan [facility] Start: 07-23-2024 Verification routine [facility] Start: 07-22-2024 Following clinical pathway protocol [facility] Start: 07-22-2024 Admission procedure [facility] Start: 07-22-2024 Introduction of urinary catheter [facility] Start: 07-22-2024 Measuring intake and output [facility] Start: 07-22-2024 End: 07-23-2024 Patient referral to dietitian [facility] Start: 07-22-2024 Referral to occupational therapist [facility] Start: 07-22-2024 Referral to service [facility] Start: 07-22-2024 Vital signs measurements [facility] Start: 07-22-2024 [facility] Start: 07-22-2024 Patient discharge [facility] Start: 07-19-2024 Assessment of risk of venous thromboembolism [facility] Start: 07-19-2024 Bedrest [facility] Start: 07-19-2024 Elevation of head of bed [facility] Start: 07-19-2024 Taking patient vital signs [facility] Start: 07-19-2024 Wound care [facility] Start: 07-19-2024 End: 07-19-2024 [facility] Start: 07-19-2024 Admission procedure [facility] Start: 07-19-2024 Referral to occupational therapist [facility] Start: 07-19-2024 Referral to service [facility] Start: 07-14-2024 End: 07-14-2024 Patient encounter procedure 07/14/2024 3:20 PM EST Office Visit Family [facility] [address] [place] [address] Jose Fam MD [address] [place] [address] 33- 4 week follow up Family [facility] Comment on above: 33- 4 week follow up Start: 07-01-2024 End: 07-01-2024 Patient encounter procedure 07/01/2024 3:40 PM EST Office Visit Family [facility] [address] [place] [address] Jose Fam MD [address] [place] [address] Follow up Left Leg - complex [facility] Comment on above: Follow up Left Leg - complex Start: 07-01-2024 End: 09-30-2024 Urate [Mass/volume] in Serum or Plasma [facility] Work Phone: Comment on above: Expected: 07/01/2024, Expires: Start: 06-24-2024 End: 06-24-2024 Patient encounter procedure 06/24/2024 11:30 AM EST Appointment Radiology [address] [place], [place] [id number] Localized swelling of left lower leg [R22.42] Radiology Comment on above: Localized swelling of left lower leg [R2 2.42] Start: 06-23-2024 Advance Directive Discussion Advance Directive Discussion [facility] Start: 06-17-2024 [facility] Start: 06-09-2024 End: 06-09-2024 [facility] Start: 06-09-2024 End: 06-09-2024 [facility] Start: 05-17-2024 End: 05-17-2024 Patient encounter procedure 05/17/2024 9:40 AM EST Office Visit [facility] [address] [place] [address] Valerie Deshpande APRN.INTEGRATED CIRCUIT DESIGN ENGINEER [address] [place], [place] [id number] 3 week follow up HTN. Lasix decreased to QOD [facility] Comment on above: 3 week follow up HTN. Lasix decreased to QOD Start: 04-22-2024 End: 07-22-2024 Basic metabolic 2000 panel - Serum or Plasma BASIC METABOLIC PANEL Lab Routine Hypotension, unspecified hypotension type Expected: 04/22/2024, Expires: 07/22/2024 [facility] Work Phone: Comment on above: Expected: 04/22/2024, Expires: Start: 04-22-2024 End: 04-22-2024 Patient encounter procedure 04/22/2024 11:00 AM EDT Office Visit [facility] [place] [address] [facility] [place] [address] Jose Fam MD [address] [place] [address] Hosp F/up [facility] [place] Comment on above: Hosp F/up Start: 04-09-2024 End: 07-09-2024 CBC W Auto Differential panel - Blood COMPLETE BLOOD COUNT AND DIFFERENTIAL Lab Routine Medication management Expected: 04/09/2024, Expires: 07/09/2024 [facility] Work Phone: Comment on above: Expected: 04/09/2024, Expires: Start: 04-09-2024 End: 07-09-2024 Comprehensive metabolic 2000 panel - Serum or Plasma COMPREHENSIVE METABOLIC PANEL Lab Routine Essential hypertension Expected: 04/09/2024, Expires: 07/09/2024 [facility] Work Phone: Comment on above: Expected: 04/09/2024, Expires: Start: 04-09-2024 End: 07-09-2024 Hemoglobin A1c in Blood HEMOGLOBIN A1C Lab Routine Elevated fasting blood sugar Expected: 04/09/2024, Expires: 07/09/2024 [facility] Work Phone: Comment on above: Expected: 04/09/2024, Expires: Start: 04-09-2024 End: 07-09-2024 LIPID PANEL, NONFASTING LIPID PANEL, NONFASTING Lab Routine Mixed hyperlipidemia Expected: 04/09/2024, Expires: 07/09/2024 [facility] Work Phone: Comment on above: Expected: 04/09/2024, Expires: Start: 04-09-2024 Shingrix Vaccine (1 of 2) Shingrix Vaccine (1 of 2) [facility] Comment on above: Postponed from 11/26/1989 (Insurance Cov erage) Start: 04-09-2024 End: 07-09-2024 Thyrotropin [Units/volume] in Serum or Plasma THYROID STIMULATING HORMONE Lab Routine Acquired hypothyroidism Expected: 04/09/2024, Expires: 07/09/2024 [facility] Work Phone: Comment on above: Expected: 04/09/2024, Expires: Start: 04-09-2024 End: 04-09-2024 Patient encounter procedure 04/09/2024 1:00 PM EDT Office Visit [facility] [place] [address] [place], [place] [id number] Jose Fam MD [address] [place], [place] [phone] medicare wellness [facility] [place] Comment on above: medicare wellness Start: 03-29-2024 End: 03-29-2024 ambulatory 03/29/2024 10:30 AM EDT Results Only [facility] [address] [place] [address] COMPREHENSIVE METABOLIC PANEL [CMP] [facility] Comment on above: COMPREHENSIVE METABOLIC PANEL [CMP] Start: 03-23-2024 RSV Vaccine (1 - 1-dose 60+ series) RSV Vaccine (1 - 1-dose 60+ series) [facility] Comment on above: Postponed from 1999 (Insurance Cov erage) Start: 03-13-2024 DIABETES SCREEN DIABETES SCREEN [facility] Start: 03-10-2024 End: 03-10-2024 Patient encounter procedure General [facility] Comment on above: lap marcy / dp [facility] post op lap marcy /4 dp Start: 03-01-2024 End: 03-01-2024 Patient encounter procedure 03/01/2024 1:00 PM EDT Office Visit [facility] [place] [address] [place], [place] [phone] Valerie Deshpande APRN.[employer]TEGRATED CIRCUIT DESIGN ENGINEER [address] [place], [place] [phone] -evaluation of continued chest rash [facility] [place] Comment on above: -evaluation of continued chest rash Start: 02-25-2024 End: 02-25-2024 Admission to same day surgery center 02/25/2024 12:10 PM EDT - 02/25/2024 1:54 PM EDT Surgery [facility] [address] [place] [address] Ange Verduzco MD [address] [place] [address] LAPAROSCOPIC CHOLECYSTECTOMY POSSIBLE OPEN [facility] Comment on above: LAPAROSCOPIC CHOLECYSTECTOMY POSSIBLE OP EN Start: 02-25-2024 End: 02-25-2024 Laparoscopy surg cholecystectomy LAPAROSCOPIC CHOLECYSTECTOMY POSSIBLE OPEN Right upper quadrant abdominal pain Gall bladder stones 02/25/2024 12:10 PM EDT ME OR Start: 02-25-2024 Subsequent hospital visit by physician 02/25/2024 12:10 PM EDT Hospital Encounter [facility] [address] [place] [id number] Ange Verduzco MD [address] [place] [address] Right upper quadrant abdominal pain [R10.11] [facility] Comment on above: Right upper quadrant abdominal pain [R10 .11] Start: 02-22-2024 Covid-19 Vaccine ( season) Covid-19 Vaccine ( season) [facility] Start: 02-22-2024 Covid-19 Vaccine ( season) Covid-19 Vaccine ( season) [facility] Start: 02-22-2024 Influenza vaccination [facility] Start: 02-19-2024 End: 02-19-2024 Patient encounter procedure 02/19/2024 9:00 AM EDT Office Visit Vasculary Surgery [address] [place] [address] leg pain [facility] Comment on above: leg pain Start: 02-11-2024 End: 02-11-2024 Anesthesia consultation 02/11/2024 2:20 PM EDT PAT Pre Anest[facility] [address] [facility] [place] [address] 1, [facility] [place] [address] [place] [address] in person per RN Pre Anesthesia Comment on above: in person per RN Start: 02-11-2024 End: 02-11-2024 Patient encounter procedure 02/11/2024 12:30 PM EDT Office [place] [phone] pre op surhg 02/24 [facility] Comment on above: pre op surhg 02/24 [facility] Start: 01-26-2024 End: 01-26-2024 Patient encounter procedure 01/26/2024 1:45 PM EDT Office Visit General Surgery [address] [place] [address] Ange Verduzco MD [address] [place] [address] Right upper quadrant abdominal pain [R10.11]; Gall bladder stones [K80.20] General Surgery Comment on above: Right upper quadrant abdominal pain [R10 .11]; Gall bladder stones [K80.20] Start: 01-20-2024 End: 01-20-2024 Patient encounter procedure 01/20/2024 1:40 PM EDT Office Visit Family [facility] [address] [place] [id number] Valerie Deshpande APRN.[facility] [address] [place] [address] 1 week follow up rash Family [facility] Comment on above: 1 week follow up rash Start: 01-16-2024 End: 01-16-2024 Patient encounter procedure 01/16/2024 12:30 PM EDT Appointment Nuclear Medicine [address] [place] [address] Right upper quadrant abdominal pain [R10.11]; Gall bladder stones [K80.20]; Calculus of gallbladder without cholecystitis without obstruction [K80.20] Nuclear Medicine Comment on above: Right upper quadrant abdominal pain [R10 .11]; Gall bladder stones [K80.20]; Calculus of gallbladder without cholecystitis without obstruction [K80.20] Start: 01-07-2024 End: 01-07-2024 Patient encounter procedure 01/07/2024 1:00 PM EDT Office Visit [facility] [place] [address] [place] [address] Jose Fam MD [address] [place] [address] ER [facility] [place] Comment on above: ER [facility] Start: 12-27-2023 End: 03-27-2024 Herpes simplex virus+Varicella zoster virus DNA [Presence] in Unspecified specimen by ERNIE with probe detection HSV1,2/VZV NAAT LESION Lab Routine Intertrigo Ulcers, skin (HCC) Expected: 12/27/2023, Expires: 03/27/2024 [facility] Comment on above: Expected: 12/27/2023, Expires: Start: 12-01-2023 End: 12-01-2023 Patient encounter procedure 12/01/2023 3:40 PM EDT Office Visit Cardiology [address] [place] [id number] Nikko Jose MD [address] [facility], [address] [place] [address] 6 month follow up Cardiology Comment on above: 6 month follow up Start: 11-03-2023 End: 11-03-2023 Patient encounter procedure 11/03/2023 2:30 PM EDT Office Visit Urology [address] [place] [address] Ange Mondragon APRN.[employer]TEGRATED CIRCUIT DESIGN ENGINEER, DNP [address] [place] [address] 2 month follow up Urology Comment on above: 2 month follow up Start: 09-26-2023 End: 12-26-2023 Comprehensive metabolic 2000 panel - Serum or Plasma COMP METABOLIC PANEL Lab Routine Essential hypertension Mixed hyperlipidemia Elevated fasting blood sugar Expected: 09/26/2023, Expires: 12/26/2023 [facility] Work Phone: Comment on above: Expected: 09/26/2023, Expires: Start: 09-26-2023 End: 12-26-2023 Hemoglobin A1c in Blood HGB A1C Lab Routine Elevated fasting blood sugar Expected: 09/26/2023, Expires: 12/26/2023 [facility] Work Phone: Comment on above: Expected: 09/26/2023, Expires: Start: 09-26-2023 End: 12-26-2023 LIPID PANEL, NONFASTING LIPID PANEL, NONFASTING Lab Routine Essential hypertension Mixed hyperlipidemia Bilateral carotid artery stenosis Expected: 09/26/2023, Expires: 12/26/2023 [facility] Work Phone: Comment on above: Expected: 09/26/2023, Expires: Start: 09-26-2023 End: 12-26-2023 Thyrotropin [Units/volume] in Serum or Plasma TSH BLD Lab Routine Acquired hypothyroidism Expected: 09/26/2023, Expires: 12/26/2023 [facility] Work Phone: Comment on above: Expected: 09/26/2023, Expires: Start: 08-04-2023 End: 11-03-2023 Urinalysis complete panel - Urine URINALYSIS, WITH MICROSCOPIC Lab Routine OAB (overactive bladder) History of bladder cancer Screening for genitourinary condition Expected: 08/04/2023, Expires: 11/03/2023 [facility] Work Phone: Comment on above: Expected: 08/04/2023, Expires: 4 Start: 07-16-2023 End: 05-14-2024 Ct thorax w/o contrast material CT CHEST WO IVCON Radiology Routine Lung nodules Expected: 07/16/2023, Expires: 05/14/2024 [facility] Work Phone: Comment on above: Expected: 07/16/2023, Expires: Start: 06-23-2023 Advance Directive Discussion Advance Directive Discussion [facility] Start: 06-23-2023 Depression Assessment Depression Assessment [facility] Start: 06-09-2023 End: 09-08-2023 Thyrotropin [Units/volume] in Serum or Plasma TSH BLD Lab Routine Acquired hypothyroidism Expected: 06/09/2023, Expires: 09/08/2023 [facility] Work Phone: Comment on above: Expected: 06/09/2023, Expires: 4 Start: 03-21-2023 End: 05-21-2023 CBC W Auto Differential panel - Blood CBC + DIFF Lab Routine Acquired hypothyroidism Expected: 03/21/2023, Expires: 05/21/2023 [facility] Work Phone: Comment on above: Expected: 03/21/2023, Expires: 3 Start: 03-21-2023 End: 05-21-2023 Comprehensive metabolic 2000 panel - Serum or Plasma COMP METABOLIC PANEL Lab Routine Essential hypertension Mixed hyperlipidemia Elevated fasting blood sugar Expected: 03/21/2023, Expires: 05/21/2023 [facility] Work Phone: Comment on above: Expected: 03/21/2023, Expires: 3 Start: 03-21-2023 End: 05-21-2023 Hemoglobin A1c in Blood HGB A1C Lab Routine Elevated fasting blood sugar Expected: 03/21/2023, Expires: 05/21/2023 [facility] Work Phone: Comment on above: Expected: 03/21/2023, Expires: 3 Start: 03-21-2023 End: 05-21-2023 LIPID PANEL, NONFASTING LIPID PANEL, NONFASTING Lab Routine Essential hypertension Mixed hyperlipidemia Expected: 03/21/2023, Expires: 05/21/2023 [facility] Work Phone: Comment on above: Expected: 03/21/2023, Expires: 3 Start: 03-21-2023 End: 05-21-2023 Thyrotropin [Units/volume] in Serum or Plasma TSH BLD Lab Routine Acquired hypothyroidism Expected: 03/21/2023, Expires: 05/21/2023 [facility] Work Phone: Comment on above: Expected: 03/21/2023, Expires: 3 Start: 03-21-2023 End: 05-21-2023 Urinalysis complete panel - Urine URINALYSIS, WITH MICROSCOPIC Lab Routine Essential hypertension Mixed hyperlipidemia Expected: 03/21/2023, Expires: 05/21/2023 [facility] Work Phone: Comment on above: Expected: 03/21/2023, Expires: 3 Start: 02-21-2023 Covid-19 Vaccine () Covid-19 Vaccine () [facility] Start: 02-21-2023 Influenza vaccination [facility] Start: 02-07-2023 End: 04-09-2023 Thyrotropin [Units/volume] in Serum or Plasma TSH BLD Lab Routine Acquired hypothyroidism Expected: 02/07/2023, Expires: 04/09/2023 [facility] Work Phone: Comment on above: Expected: 02/07/2023, Expires: 3 Start: 12-02-2022 End: 02-01-2023 Thyrotropin [Units/volume] in Serum or Plasma TSH BLD Lab Routine Acquired hypothyroidism Expected: 12/02/2022, Expires: 02/01/2023 [facility] Work Phone: Comment on above: Expected: 12/02/2022, Expires: 3 Start: 09-04-2022 End: 11-04-2022 Comprehensive metabolic 2000 panel - Serum or Plasma COMP METABOLIC PANEL Lab Routine Mixed hyperlipidemia Essential hypertension Elevated fasting blood sugar Expected: 09/04/2022, Expires: 11/04/2022 [facility] Work Phone: Comment on above: Expected: 09/04/2022, Expires: 3 Start: 09-04-2022 End: 11-04-2022 Hemoglobin A1c in Blood HGB A1C Lab Routine Essential hypertension Elevated fasting blood sugar Expected: 09/04/2022, Expires: 11/04/2022 [facility] Work Phone: Comment on above: Expected: 09/04/2022, Expires: 3 Start: 09-04-2022 End: 11-04-2022 LIPID PANEL, NONFASTING LIPID PANEL, NONFASTING Lab Routine Mixed hyperlipidemia Expected: 09/04/2022, Expires: 11/04/2022 [facility] Work Phone: Comment on above: Expected: 09/04/2022, Expires: 3 Start: 09-04-2022 End: 11-04-2022 Thyrotropin [Units/volume] in Serum or Plasma TSH BLD Lab Routine Acquired hypothyroidism Expected: 09/04/2022, Expires: 11/04/2022 [facility] Work Phone: Comment on above: Expected: 09/04/2022, Expires: 3 Start: 07-21-2022 COVID-19 VACCINE (5 - Moderna series) COVID-19 VACCINE (5 - Moderna series) [facility] Start: 06-23-2022 ADVANCE DIRECTIVE DISCUSSION ADVANCE DIRECTIVE DISCUSSION [facility] Start: 04-12-2022 End: 06-12-2022 Cobalamin (Vitamin B12) [Mass/volume] in Serum or Plasma [facility] Work Phone: Comment on above: Expected: 04/12/2022, Expires: 2 Start: 04-12-2022 End: 06-12-2022 Folate [Mass/volume] in Serum or Plasma [facility] Work Phone: Comment on above: Expected: 04/12/2022, Expires: 2 Start: 04-12-2022 End: 06-12-2022 SYPHILIS TOTAL W/REFLEX [facility] Work Phone: Comment on above: Expected: 04/12/2022, Expires: 2 Start: 03-21-2022 SHINGRIX VACCINE (1 of 2) SHINGRIX VACCINE (1 of 2) [facility] Comment on above: Postponed from 11/26/1989 (Insurance Cov erage) Start: 02-21-2022 Influenza vaccination INFLUENZA (#1) [facility] Start: 12-10-2021 End: 02-09-2022 Bacteria identified in Urine by Culture URINE CULTURE Microbiology Routine Transient global amnesia Confusion Expected: 12/10/2021, Expires: 02/09/2022 [facility] Work Phone: Comment on above: Expected: 12/10/2021, Expires: 2 Start: 12-10-2021 End: 02-09-2022 CBC W Auto Differential panel - Blood [facility] Work Phone: Comment on above: Expected: 12/10/2021, Expires: 2 Start: 12-10-2021 End: 02-09-2022 Comprehensive metabolic 2000 panel - Serum or Plasma [facility] Work Phone: Comment on above: Expected: 12/10/2021, Expires: 2 Start: 12-10-2021 End: 02-09-2022 Hemoglobin A1c in Blood [facility] Work Phone: Comment on above: Expected: 12/10/2021, Expires: 2 Start: 12-10-2021 End: 02-09-2022 Thyrotropin [Units/volume] in Serum or Plasma [facility] Work Phone: Comment on above: Expected: 12/10/2021, Expires: 2 Start: 12-10-2021 End: 02-09-2022 Urinalysis complete panel - Urine URINALYSIS, WITH MICROSCOPIC Lab Routine Transient global amnesia Confusion Expected: 12/10/2021, Expires: 02/09/2022 [facility] Work Phone: Comment on above: Expected: 12/10/2021, Expires: 2 Start: 09-07-2021 COVID-19 VACCINE (4 - Booster for Moderna series) COVID-19 VACCINE (4 - Booster for Moderna series) [facility] Start: 06-23-2021 ADVANCE DIRECTIVE DISCUSSION ADVANCE DIRECTIVE DISCUSSION [facility] Start: 06-23-2021 DEPRESSION ASSESSMENT DEPRESSION ASSESSMENT [facility] Start: 11-26-2014 RSV Vaccine (1 - 1-dose 75+ series) RSV Vaccine (1 - 1-dose 75+ series) [facility] Start: 11-26-1989 SHINGRIX VACCINE (1 of 2) SHINGRIX VACCINE (1 of 2) [facility] Bacteria identified in Urine by Culture URINE CULTURE Microbiology Routine BPH with obstruction/lower urinary tract symptoms Malignant neoplasm of urinary bladder, unspecified site (HCC) 08/26/2023 4:09 PM EST [facility] Work Phone: Bacteria identified in Wound by Culture WOUND CULTURE AND GRAM STAIN Microbiology Routine Open wound of skin 06/26/2022 11:24 AM EST [facility] Work Phone: Bacteria identified in Wound by Culture ABSCESS AND WOUND CULTURE WITH GRAM STAIN Microbiology Routine Intertrigo Ulcers, skin ([facility]) Ordered: 12/27/2023 [facility] Work Phone: Comment on above: Ordered: 12/27/2023 End: 01-05-2024 CT BRAIN WO IVCON CT BRAIN WO IVCON Radiology STAT 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, unspecified blood vessel laterality (HCC) 1 Occurrences starting 12/06/2022 until 01/05/2024 [facility] Work Phone: Comment on above: 1 Occurrences starting 12/06/2022 until 01/05/2024 End: 11-07-2025 CT Chest WO contrast CT CHEST WO IVCON Radiology Routine Lung nodules Pulmonary nodule 1 Occurrences starting 10/08/2024 until 11/07/2025 [facility] Work Phone: Comment on above: 1 Occurrences starting 10/08/2024 until 11/07/2025 End: 09-05-2023 Ct thorax w/o contrast material CT CHEST WO IVCON Radiology Routine Lung nodules 1 Occurrences starting 08/06/2022 until 09/05/2023 [facility] Work Phone: Comment on above: 1 Occurrences starting 08/06/2022 until 09/05/2023 CYSTO DIAGNOSTIC CYSTO DIAGNOSTI C Procedures Routine History of bladder cancer Urgency of urination Ordered: 08/04/2023 [facility] Work Phone: Comment on above: Ordered: 08/04/2023 End: 06-13-2023 ECG COMPLETE ECG COMPLETE ECG Routine SVT (supraventricular tachycardia) (HCC) 1 Occurrences starting 06/13/2022 until 06/13/2023 [facility] Work Phone: Comment on above: 1 Occurrences starting 06/13/2022 until 06/13/2023 End: 02-10-2025 ECG COMPLETE ECG COMPLETE ECG Routine Pre-operative examination 1 Occurrences starting 02/11/2024 until 02/10/2025 [facility] Comment on above: 1 Occurrences starting 02/11/2024 until 02/10/2025 End: 12-18-2022 Echocardiography ECHO Cardiology Routine Transient global amnesia History of CVA (cerebrovascular accident) Confusion 1 Occurrences starting 12/18/2021 until 12/18/2022 [facility] Work Phone: Comment on above: 1 Occurrences starting 12/18/2021 until 12/18/2022 End: 10-25-2025 Echocardiography ECHO Cardiology Routine SOB (shortness of breath) HDZ (dyspnea on exertion) 1 Occurrences starting 10/25/2024 until 10/25/2025 [facility] Work Phone: Comment on above: 1 Occurrences starting 10/25/2024 until 10/25/2025 End: 12-18-2022 HOLTER MONITOR 48 HOUR HOLTER MONITOR 48 HOUR ECG Routine Transient global amnesia History of CVA (cerebrovascular accident) Confusion 1 Occurrences starting 12/18/2021 until 12/18/2022 [facility] Work Phone: Comment on above: 1 Occurrences starting 12/18/2021 until 12/18/2022 End: 12-19-2021 HOLTER MONITOR 48 HOUR HOLTER MONITOR 48 HOUR ECG Routine Transient global amnesia History of CVA (cerebrovascular accident) Confusion 1 Occurrences starting 12/19/2021 until 12/19/2021 [facility] Work Phone: Comment on above: 1 Occurrences starting 12/19/2021 until 12/19/2021 End: 01-09-2023 Mri brain brain stem w/o contrast material MRI BRAIN WO IVCON Radiology Routine Transient global amnesia Confusion History of CVA (cerebrovascular accident) 1 Occurrences starting 12/10/2021 until 01/09/2023 [facility] Work Phone: Comment on above: 1 Occurrences starting 12/10/2021 until 01/09/2023 End: 02-05-2025 NM Biliary ducts and Gallbladder Views for patency of biliary structures and ejection fraction W sincalide and W radionuclide IV NM HEPATOBILIARY W EF AND/OR RX Radiology Routine Right upper quadrant abdominal pain Gall bladder stones Calculus of gallbladder without cholecystitis without obstruction 1 Occurrences starting 01/07/2024 until 02/05/2025 [facility] Work Phone: Comment on above: 1 Occurrences starting 01/07/2024 until 02/05/2025 End: 11-24-2025 NM Heart Perfusion W stress and W radionuclide IV NM CARDIAC PERF STRESS/PHARM Radiology Routine SOB (shortness of breath) HDZ (dyspnea on exertion) 1 Occurrences starting 10/25/2024 until 11/24/2025 [facility] Comment on above: 1 Occurrences starting 10/25/2024 until 11/24/2025 OUTSIDE VENDOR CARDI AC OUTPATIENT EXTENDED RHYTHM RECORDING (WITHOUT TELEMETRY) OUTSIDE VENDOR CARDIAC OUTPATIENT EXTENDED RHYTHM RECORDING (WITHOUT TELEMETRY) Holter Routine SVT (supraventricular tachycardia) (HCC) Ordered: 07/01/2022 [facility] Work Phone: Comment on above: Ordered: 07/01/2022 OUTSIDE VENDOR CARDI AC OUTPATIENT EXTENDED RHYTHM RECORDING (WITHOUT TELEMETRY) OUTSIDE VENDOR CARDIAC OUTPATIENT EXTENDED RHYTHM RECORDING (WITHOUT TELEMETRY) Holter Routine SVT (supraventricular tachycardia) [I47.10] Ordered: 04/21/2023 [facility] Work Phone: Comment on above: Ordered: 04/21/2023 OXIMETRY - NOCTURNAL OXIMETRY - NOCTURNAL Procedures Routine Hypoxia Chronic diastolic congestive heart failure (HCC) Ordered: 11/17/2024 [facility] Work Phone: Comment on above: Ordered: 11/17/2024 End: 11-24-2025 OXIMETRY WITH AMBULATION OXIMETRY WITH AMBULATION PFT Routine SOB (shortness of breath) HDZ (dyspnea on exertion) 1 Occurrences starting 10/25/2024 until 11/24/2025 [facility] Comment on above: 1 Occurrences starting 10/25/2024 until 11/24/2025 Patient Education [facility] Work Phone: Patient referral [facility] Work Phone: POST VOID RESIDUAL POST VOID RES IDUAL Procedures Routine BPH with obstruction/lower urinary tract symptoms History of bladder cancer Screening for genitourinary condition Ordered: 08/04/2023 [facility] Work Phone: Comment on above: Ordered: 08/04/2023 POST VOID RESIDUAL POST VOID RES IDUAL Procedures Routine Urgency of urination BPH associated with nocturia Urinary frequency Ordered: 11/03/2023 [facility] Work Phone: Comment on above: Ordered: 11/03/2023 End: 11-24-2025 SPIROMETRY - BASELINE AND POST DILATOR SPIROMETRY - BASELINE AND POST DILATOR PFT Routine SOB (shortness of breath) HDZ (dyspnea on exertion) 1 Occurrences starting 10/25/2024 until 11/24/2025 [facility] Comment on above: 1 Occurrences starting 10/25/2024 until 11/24/2025 UA DIP, URINE (POC) UA DIP, URIN E (POC) Lab Routine OAB (overactive bladder) Ordered: 11/03/2023 [facility] Work Phone: Comment on above: Ordered: 11/03/2023 End: 12-18-2022 US CAROTID ARTERIES [facility] US CAROTID ARTERIES [facility] Vascular Lab Routine Transient global amnesia History of CVA (cerebrovascular accident) Confusion 1 Occurrences starting 12/18/2021 until 12/18/2022 [facility] Work Phone: Comment on above: 1 Occurrences starting 12/18/2021 until 12/18/2022 End: 04-09-2024 US CAROTID ARTERIES [facility] US CAROTID ARTERIES [facility] Vascular Lab Routine Bilateral carotid artery stenosis 1 Occurrences starting 04/09/2023 until 04/09/2024 [facility] Work Phone: Comment on above: 1 Occurrences starting 04/09/2023 until 04/09/2024 End: 07-22-2025 US Lower extremity vein - left US DVT LOWER LEFT Radiology STAT Localized swelling of left lower leg 1 Occurrences starting 06/22/2024 until 07/22/2025 [facility] Comment on above: 1 Occurrences starting 06/22/2024 until 07/22/2025 End: 02-10-2025 US Lower extremity veins - bilateral US LEG VEIN DVT [facility] Vascular Lab Routine Pre-operative examination Leg edema, left 1 Occurrences starting 02/11/2024 until 02/10/2025 [facility] Work Phone: Comment on above: 1 Occurrences starting 02/11/2024 until 02/10/2025 End: 07-22-2025 XR Knee - left 4 Views XR KNEE GENERAL 4V AP BOTH/PA BOTH/LAT/MERC LEFT Radiology Routine Injury of left knee, subsequent encounter 1 Occurrences starting 06/22/2024 until 07/22/2025 [facility] Work Phone: Comment on above: 1 Occurrences starting 06/22/2024 until 07/22/2025 XR Knee - left 4 Views XR KNEE G ENERAL 4V AP BOTH/PA BOTH/LAT/MERC LEFT Radiology Routine Injury of left knee, subsequent encounter 06/22/2024 12:31 PM EST [facility] Immunizations Immunization Date Immunization Notes Care Provider Alda junior 10-08-2024 pneumococcal conjuga te (PCV20) vaccine, 20 valent (PREVNAR 20) Phoebe Muro PA-C Work Phone: [facility] 10-08-2024 pneumococcal Conjuga te, unspecified formulation Phoebe Muro PA-C Work Phone: [facility] 04-09-2024 COVID-19 vaccine, ag e 12+ yr (PFIZER-BIONTECH COMIRNATY) Jose Fam MD Work Phone: [facility] 04-09-2024 influenza, high dose seasonal, preservative-free Jose Fam MD Work Phone: [facility] 04-09-2023 influenza (HD-IIV4) vaccine, age 65+ yr, high dose, quadrivalent, PF (FLUZONE HIGH-DOSE) Nick Julien LATIF [facility] 04-09-2023 influenza virus vacc ine, unspecified formulation Mike Adler MD Work Phone: [facility] 03-21-2022 COVID-19 booster vaccine, age 12+ yr, bivalent (LIQVID-BIONTeMindful) Jose Fam MD Work Phone: [facility] 03-21-2022 influenza, high-dose , quadrivalent vaccine (FLUZONE HIGH DOSE QUADRIVALENT) Jose Fam MD Work Phone: [facility] 03-21-2022 influenza virus vacc ine, unspecified formulation Jose Fam MD Work Phone: [facility] 05-10-2021 Covid (Moderna) Dr. Jose Fam MD Work Phone: [facility] 03-24-2021 influenza, high-dose , quadrivalent vaccine (FLUZONE HIGH DOSE QUADRIVALENT) Lane Ochoa Jr., MD Work Phone: [facility] Work Phone: 09-14-2020 Covid (Moderna) Dr. Jose Fam MD Work Phone: [facility] 08-17-2020 Covid (Moderna) Dr. Jose Fam MD Work Phone: [facility] 08-16-2020 COVID-19 vaccine, fu ll dose (MODERNA) Lane Ochoa Jr., MD Work Phone: [facility] 05-22-2020 influenza virus vacc ine, unspecified formulation Lane Ochoa Jr., MD Work Phone: [facility] 05-22-2020 influenza, high dose seasonal, preservative-free Lane Ochoa Jr., MD Work Phone: [facility] 05-28-2019 influenza, high dose seasonal, preservative-free Lane Ochoa Jr., MD Work Phone: [facility] 04-24-2018 influenza, high dose seasonal, preservative-free Lane Ochoa Jr., MD Work Phone: [facility] Work Phone: 04-10-2017 influenza, high dose seasonal, preservative-free Lane Ochoa Jr., MD Work Phone: [facility] Work Phone: 07-19-2016 pneumococcal polysaccharide vaccine, [address] Ochoa Jr., MD Work Phone: [facility] 05-03-2016 influenza, high dose seasonal, preservative-free Lane Ochoa Jr., MD Work Phone: [facility] Work Phone: 04-03-2015 influenza, high dose seasonal, preservative-free Lane Ochoa Jr., MD Work Phone: [facility] 04-03-2015 pneumococcal conjuga te vaccine, [address] Ochoa Jr., MD Work Phone: [facility] 02-01-2015 tetanus toxoid, redu stanley diphtheria toxoid, and acellular pertussis vaccine, adsorbed Lane Ochoa Jr., MD Work Phone: [facility] Work Phone: 04-11-2014 influenza, seasonal, injectable Lane Ochoa Jr., MD Work Phone: [facility] 03-18-2013 influenza virus vacc ine, unspecified formulation Lane Ochoa Jr., MD Work Phone: [facility] 05-11-2012 influenza virus vacc ine, unspecified formulation Lane Ochoa Jr., MD Work Phone: [facility] Work Phone: 04-16-2010 influenza virus vacc ine, unspecified formulation Lane Ochoa Jr., MD Work Phone: [facility] Work Phone: 06-06-2009 novel influenza-H1N1 -09, preservative-free, injectable Lane Ochoa Jr., MD Work Phone: [facility] 05-24-2008 influenza virus vacc ine, unspecified formulation Lane Ochoa Jr., MD Work Phone: [facility] 05-24-2008 pneumococcal polysaccharide vaccine, [address] Ochoa Jr., MD Work Phone: [facility] 08-12-2006 tetanus and diphther ia toxoids, adsorbed, preservative free, for adult use (2 Lf of tetanus toxoid and [address] L[address] of [address]htheria toxoid) Lane Ochoa Jr., MD Work Phone: [facility] Payers Date Payer Category Payer Self-pay [id number] 2022 Private Health Insurance [id number] 2021 Medicare HUMANA MEDICARE HUMANA MEDICARE PPO [id number] 2021-Present [phone] [place] [address] [id number] 2017 Medicare [id number] 2017 Medicare ([facility] Care[facility] [id number] .[id number] 2013 Medicare [id number] Unknown [id number] 2.16.840.1.152516.3.579 .2.627 Unknown [id number] 2.16.840.1.109623.3.579 .2.462 Unknown [id number] 2.16.840.1.604403.3.579 .2.462 Unknown [id number] 2.16.840.1.906890.3.579 .2.462 Unknown [id number] 2.16.840.1.492340.3.579 .2.462 Unknown [id number] 2.16.840.1.626694.3.579 .2.462 Unknown [id number] 2.16.840.1.383634.3.579 .2.462 Unknown [id number] 2.16.840.1.180143.3.579 .2.462 Unknown [id number] 2.16.840.1.017856.3.579 .2.462 Unknown [id number] 2.16.840.1.651082.3.579 .2.462 Unknown [id number] 2.16.840.1.628776.3.579 .2.462 Unknown [id number] 2.16.840.1.152962.3.579 .2.462 Unknown [id number] 2.16.840.1.609948.3.579 .2.462 Unknown [id number] 2.16.840.1.523084.3.579 .2.462 Unknown [id number] 2.16.840.1.714020.3.579 .2.462 Unknown [id number] 2.16.840.1.277196.3.579 .2.462 Unknown [id number] 2.16.840.1.713818.3.579 .2.462 Unknown [id number] 2.16.840.1.761803.3.579 .2.462 Unknown [id number] 2.16.840.1.444889.3.579 .2.462 Unknown [id number] 2.16.840.1.314743.3.579 .2.462 Unknown [id number] 2.16.840.1.416381.3.579 .2.462 Unknown [id number] 2.16.840.1.651078.3.579 .2.462 Unknown [id number] 2.16.840.1.091704.3.579 .2.462 Unknown [id number] 2.16.840.1.749764.3.579 .2.462 Unknown [id number] 2.16.840.1.266499.3.579 .2.462 Unknown [id number] 2.16.840.1.462700.3.579 .2.462 Unknown [id number] 2.16.840.1.938642.3.579 .2.462 Unknown [id number] 2.16.840.1.227141.3.579 .2.462 Unknown [id number] 2.16.840.1.541503.3.579 .2.462 Unknown [id number] 2.16.840.1.375444.3.579 .2.462 Unknown [id number] 2.16.840.1.234048.3.579 .2.462 Unknown [id number] 2.16.840.1.815620.3.579 .2.462 Unknown [id number] 2.16.840.1.410647.3.579 .2.462 Unknown [id number] 2.16.840.1.387012.3.579 .2.462 Unknown [id number] 2.16.840.1.725850.3.579 .2.462 Unknown [id number] 2.16.840.1.870656.3.579 .2.462 Unknown [id number] 2.16.840.1.044016.3.579 .2.462 Unknown [id number] 2.16.840.1.579358.3.579 .2.462 Unknown [id number] 2.16.840.1.116601.3.579 .2.462 Unknown [id number] 2.16.840.1.150272.3.579 .2.462 Unknown [id number] 2.16.840.1.918151.3.579 .2.462 Unknown [id number] 2.16.840.1.348074.3.579 .2.462 Unknown [id number] 2.16.840.1.815932.3.579 .2.462 Unknown [id number] 2.16.840.1.836839.3.579 .2.462 Unknown [id number] 2.16.840.1.980363.3.579 .2.462 Unknown [id number] 2.16.840.1.819644.3.579 .2.462 Unknown [id number] 2.16.840.1.769116.3.579 .2.462 Unknown [id number] 2.16.840.1.225741.3.579 .2.462 Unknown [id number] 2.16.840.1.514595.3.579 .2.462 Social History Date Type Detail Facility Start: 08-01-2022 End: 09-09-2023 Tobacco smoking status NHIS Never smoked tobacco [facility] Start: 03-21-2021 End: 03-13-2023 Alcohol intake Current non-drinker of alcohol (finding) [facility] Start: 02-10-2020 End: 07-22-2022 History SDOH Alcohol Frequency 1 [facility] Start: 03-11-2021 End: 07-22-2022 History SDOH Social Connections Phone 2 [facility] Start: 05-24-2019 End: 07-22-2022 History SDOH Social Connections Bahai 3 [facility] Start: 03-11-2021 End: 07-22-2022 History SDOH Physical Activity DPW 0 [facility] Start: 03-11-2021 End: 07-22-2022 History SDOH Financial 5 [facility] Start: 03-11-2021 Education 12 [facility] Start: 1940 Sex Assigned At Male [facility] Start: 09-08-2021 End: 03-21-2022 Exposure to SARS-CoV-2 (event) Not sure [facility] Start: 12-15-2021 End: 12-25-2021 Exposure to SARS-CoV-2 (event) Unable to assess [facility] Start: 04-11-2022 History SDOH Financial 4 [facility] Start: 01-11-2022 End: 11-29-2022 Tobacco smoking status NHIS Unknown if ever smoked [facility] Start: 03-05-2021 None [facility] Start: 03-05-2021 Non-smoker [facility] Start: 07-22-2022 End: 12-06-2022 History of Social function [facility] Start: 07-22-2022 End: 12-06-2022 Social connection and isolation panel [facility] Do you belong to any clubs or organizations such as religion groups, unions, fraternal or athletic groups, or school groups? No [facility] Are you now , , , , never or living with a partner? [facility] How often to you hav e a drink containing alcohol? Never [facility] How many standard dr inks containing alcohol do you have on a typical day? Patient does not drink [facility] Do you feel stress - tense, restless, nervous, or anxious, or unable to sleep at night because your mind is troubled all the time - these days [OSQ] Not at all [facility] (I/We) worried wheth er (my/our) food would run out before (I/we) got money to buy more. Never true [facility] Start: 07-17-2020 Gender identity Identifies as male gender (finding) [facility] Start: 12-14-2021 Sexual orientation Choose not to disclose [facility] Start: 08-04-2023 End: 11-17-2024 Alcohol intake Ex-drinker (finding) [facility] Start: 09-09-2023 Tobacco use and exposure Smoke less tobacco non-user [facility] Start: 08-29-2024 End: 09-09-2024 Sex Male (finding) [facility] Do you belong to any clubs or organizations such as religion groups, unions, fraternal or athletic groups, or school groups? Yes [facility] NEGATED: Highlighted rowStart: NINF History of tobacco use Passive smoker [facility] Medical Equipment Procedure Code Equipment Code Equipment Origin al Text Equipment Identifier Dates Anchr Sut 5.5mm 2 [facility] Fbrwr - [id number] Start: 08-02-2010 Comment on above: Description: bio-cor kscrew Anchr Sut 4.5mm Bio-Pshlk 28mm - [id number] Start: 08-02-2010 Comment on above: Description: bio-pus h-lock ([id number]) Endocardial paci ng lead ()[id number] FDA Start: 07-19-2024 ([id number]) Endocardial paci ng lead ()[id number] FDA Start: 07-19-2024 ([id number]) Dual-chamber implantable pacemaker, rate-responsive ()[id number] FDA Start: 07-19-2024 Goals Date Patient Goal Desired Activity /State Functional Status Date Assessment Result Facility 10-31-2024 Functional status Chair [facility] Work Phone: 09-04-2024 Functional status Chair [facility] Work Phone: 08-28-2024 Functional status Ambulates;Bath room Privilege [facility] Work Phone: 07-22-2024 Functional status Activity Abili ty Standby Assist;With Assist of 1 [facility] Work Phone: 07-22-2024 Functional status Ambulates;Mt r;Bathroom Privilege [facility] Work Phone: 08-02-2022 Functional Status Ambulating in cronin, Ambulating in room, Awake [facility] 08-01-2022 Functional Status Standard Safet y ID band on, Allergy Band on, Call device within reach, Bed in low position, Wheels locked, Upper/Half-Length side-rails up, personal items within reach, Visitor at bedside [facility] 01-17-2015 Are you deaf, or do you have serious difficulty hearing No 01/17/2015 4:20 PM EDT Selene Swan MA No [facility] 01-17-2015 Are you blind, or do you have serious difficulty seeing, even when wearing glasses No 01/17/2015 4:20 PM EDT Selene Swan MA No [facility] 01-17-2015 Do you have serious difficulty walking or climbing stairs Yes 01/17/2015 4:20 PM EDT Selene Swan MA Yes [facility] 01-17-2015 Do you have difficul ty dressing or bathing No 01/17/2015 4:20 PM EDT Selene Swan MA No [facility] 01-17-2015 Because of a physica l, mental, or emotional condition, do you have difficulty doing errands alone such as visiting a physician's office or shopping No 01/17/2015 4:20 PM EDT Selene Swan MA No [facility] Mental Status Date Assessment Result Facility 10-31-2024 Cognitive function Voice/Name [facility] Work Phone: 09-04-2024 Cognitive function Voice/Name [facility] Work Phone: 08-28-2024 Cognitive function Voice/Name [facility] Work Phone: 08-26-2024 Cognitive function Appropriate;Cooperativ e [facility] Work Phone: 07-27-2024 Cognitive function Level Of Cons ciousness Drowsy [facility] Work Phone: 07-27-2024 Cognitive function Patient Orien tation Person;Place;Time [facility] Work Phone: 07-22-2024 Cognitive function Voice/Name [facility] Work Phone: 06-09-2024 Cognitive function Voice/Name [facility] Work Phone: 06-09-2024 Cognitive function Voice/Name [facility] Work Phone: 11-29-2022 Cognitive function Level Of Cons ciousness Awake;Alert;Appropriate;Fol lows Commands [facility] Work Phone: 08-02-2022 Mental Status Orientation Oriented x 4 [facility] 08-01-2022 Mental Status [facility] 01-17-2015 Because of a physica l, mental, or emotional condition, do you have serious difficulty concentrating, remembering, or making decisions No 01/17/2015 4:20 PM EDT Selene Swan MA No [facility] Clinical Notes 02-25-2017 to 11-24-2024 Telephone Encounter - Nick Spence MA - 11/24/2024 5:19 PM EDTTelephone Encounter - Jose Fam MD - 11/24/2024 5:11 PM EDTTelephone Encounter - Nick Spence MA - 11/24/2024 5:03 PM EDT Note Date & Type Note Facility 11-24-2024 Miscellaneous Notes Faxed. Nick Spence MA Order corrected. Received fax from [employer] needing clarification if testing is to be with our without O2? Faxed given to provider. Nick Spence MA Pt's calls to report at OV 11/17/24 pcp mentioned having [employer] do an overnight oximetry. reports they have not heard from [employer] and pt's is asking if there is something she needs to do and does pcp still want pt to do test. Jaci Dunlap LPN documented in this encounter [facility] 11-24-2024 Telephone encounter Note Faxed. Nick Spence MA [facility] 11-24-2024 Telephone encounter Note Order corrected. [facility] 11-24-2024 Telephone encounter Note Received fax from [employer] needing clarification if testing is to be with our without O2? Faxed given to provider. Nick Spence MA [facility] 11-23-2024 Telephone encounter Note Pt's calls to report at OV 11/17/24 pcp mentioned having [employer] do an overnight oximetry. reports they have not heard from [employer] and pt's is asking if there is something she needs to do and does pcp still want pt to do test. Jaci Dunlap LPN [facility] 11-23-2024 Note [facility] 11-23-2024 Note [facility] 11-18-2024 Telephone encounter Note Patient Sudarshan returned call and went over results,notes from Dr Fam with understanding. [facility] 11-18-2024 Miscellaneous Notes Patient Sudarshan returned call and went over results,notes from Dr Fam with understanding. Let know the kidney functions were ok. His blood sugar was ok. The maker for heart congestion is much better. In the hospital it was 2134 and down to 732. No changes needed. documented in this encounter [facility] 11-18-2024 Telephone encounter Note Melissa with [facility] calls to request authorization for [place] CARDIAC PERF/STRESS PHARM. Referral placed per request. Referral ID [id number]. Not ordered stat so nothing further needed. Closing encounter. Virginia Pace RN [facility] 11-18-2024 Miscellaneous Notes Melissa with [facility] calls to request authorization for [place] CARDIAC PERF/STRESS PHARM. Referral placed per request. Referral ID [id number]. Not ordered stat so nothing further needed. Closing encounter. Virginia Pace RN documented in this encounter [facility] 11-17-2024 Telephone encounter Note Let know the kidney functions were ok. His blood sugar was ok. The maker for heart congestion is much better. In the hospital it was 2134 and down to 732. No changes needed. [facility] 11-17-2024 Instructions Jose Fam MD - 11/17/2024 8:30 AM EDT Double check if you do have a stress test set up at [facility] and if prior to the one through [facility] on 12/20/[address] Fam know and we can cancel the one with [facility] on 12/20/2024. If Regan has more the a 5 lb weight gain increase the Furosamide to 60 mg a day for 5 days and then go back to 40 mg a day. Use bench ari weight of 270 lb If he has been taking the lisinopril 2.5 mg, stop it and get rid of it. documented in this encounter [facility] 11-17-2024 History of Present illness Narrative Images from the original note were not included. Chief Complaint Patient presents with: Hospital F/U HPI Regan Arango is a 83 year old male who presents here today for Hospital Discharge Follow up. Patient was D/C from [facility] on 10/31/2024 for CHF exacerbation Patient saw urology yesterday and added Vesicare 5 mg daily. has noted at night his O2 is dropping into the mid 80's. He has not had formal testing of his nocturnal O2 Sat. Patient is using O2 at night time only on 2 litters. ER visit 10/28/2024 Patient was sent home on Lasix 40 mg a day. Had a f/u with cardio and was to continue the lasix and increase to 60 mg for 5 days if weight goes up 5 lbs. He is also on fluid restriction. No chest pain during the day. No shortness of breath. No orthopnea. Swelling in his legs is improved. Patient's cough is much better. Past medical history, appointments, medications, allergies reviewed. Previous Medical History PAST MEDICAL HISTORY Diagnosis Date 1st degree AV block 09/08/2015 AC (acromioclavicular) joint arthritis 08/09/2009 Acquired hypothyroidism 04/03/2015 Actinic skin damage 03/08/2012 Acute, but ill-defined, cerebrovascular disease 07/13/2008 Advance directive discussed with patient 03/21/2022 Discussed 02/2022 Anemia 07/24/2015 Arthritis of knee 10/30/2011 At risk for falls 05/28/2019 Atrial flutter (HCC) 06/20/2024 Seeing [facility]: Dr. Boone Atrial flutter ([facility]) 06/20/2024 Seeing [facility]: Dr. 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 Campoverde Essential hypertension Essential hypertension Familial peripheral neuropathy 06/02/2015 Gait difficulty 04/29/2016 Gastroesophageal reflux disease without esophagitis 04/03/2015 Greater trochanteric bursitis 03/20/2016 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09/04/2012 History of bladder cancer 04/09/2023 History of CVA (cerebrovascular accident) 02/2008 residual weakness in right leg History of giant cell arteritis 03/29/2008 Hx of long-term use of blood thinners Irritated//Inflamed Seborrheic Keratosis 03/08/2012 Living will on file 03/21/2022 DPA: Sudarshan () Low back pain 01/13/2014 Low serum vitamin B12 04/16/2022 Lower urinary tract symptoms (LUTS) 08/02/2014 Lumbar stenosis with neurogenic claudication 01/13/[address] Starr Memory difficulties 04/12/2022 04/12/22 MMSE: 2930 Mild pulmonary hypertension (HCC) 09/22/[address] Hamilton, not able to tolerate CPAP for JESSY. 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 Pacemaker 07/22/2024 Placed 07/19/2024 by [facility] Pain in both hands 12/19/2015 Postlaminectomy syndrome 05/08/2010 Premature supraventricular beats 09/08/2015 Pulmonary nodule 08/06/[address] at [facility] on 08/01/22. Repeat in 3-6 months. Multiple nodules up to 7mm in size. Right leg weakness 04/25/2014 Sebaceous cyst 06/08/2009 Stasis dermatitis of both legs 06/02/2015 SVT (supraventricular tachycardia) (HCC) 07/17/2020 SVT (supraventricular tachycardia) (HCC) 07/17/2020 Thoracic or lumbosacral neuritis or radiculitis, unspecified 05/05/2009 Thumb pain, left 11/26/2017 Tinnitus 07/26/2017 Unspecified arthropathy, lower leg 10/12/2008 Venous insufficiency (chronic) (peripheral) 06/02/2015 Vertigo following cerebrovascular accident 07/23/2010 Viral warts, unspecified 04/09/2013 Xerosis cutis 09/04/2012 Previous Surgical History PAST SURGICAL HISTORY Procedure Laterality Date 2D ECHO (EXEP) 08/2015 EF=64%, 1+ TR and mild Pulm HTN ANESTH,PACEMAKER INSERTION 07/19/2024 COLONOSCOPY FLX DX W/COLLJ SPEC WHEN PFRMD 02/06/2011 Colonoscopy, repeat 10 yrs CYSTO W/REMOVAL OF LESIONS MINOR <0.5CM 08/31/2014 ESOPHAGOGASTRODUODENOSCOPY TRANSORAL DIAGNOSTIC 12/14/2018 EGD FASCT PALM W/WO Z-PLASTY TISSUE REARGMT/SKN GRFT Left 09/08/2018 Left 3rd finger fascietomy with skin graft, left 4th finger facietomy with local soft tissue rearrangements and trigger finger release L3-4 and L4-5 laminoforaminotomy 2009 LAPAROSCOPIC CHOLECYSTECTOMY 02/25/2024 LIGATION/BIOPSY TEMPORAL ARTERY 03/30/2008 RIGHT, negitive. LUMBAR SPINE FUSION COMBINED 05/05/2015 MAL LESION FACE,EAR,EYEL 1.1-2CM 04/20/2008 Exc. right lateral islam skin lesion and right forehead OPEN REPAIR OF ROTATOR CUFF ACUTE 2000 Rotator cuff repair left PAST SURGICAL HISTORY OF ingrown toe nail removed PAST SURGICAL HISTORY OF 1965 cyst removed from bottom of spine REMOVAL GALLBLADDER 02/25/2024 SHOULDER ARTHROSCOPY/SURGERY 08/02/2010 Open Rt subacromial decompression STRESS TEST 04/10/2015 WNL STRESS TEST NUCLEAR 07/09/2018 negative Family History FAMILY HISTORY Problem Relation Age of Onset Hypertension Mother Stroke Mother other (headaches) Mother Ischemic Heart Disease Father Heart Brother Patient Allergies ALLERGIES Allergen Reactions Ditropan [Oxybutyni* Other: See Comments Nausea, brain fog, increased weakness, decreased appetite, and increased restless leg symptoms. Prednisone Other: See Comments Had GI problems, headaches. Patient states he was on high dose for almost 90 days Current Medications Current Outpatient Medications on File Prior to Visit Medication Sig albuterol HFA (PROVENTIL HFA, VENTOLIN HFA) 90 mcg/actuation inhaler Inhale 2 puffs as instructed every 4 hours as needed for wheezing/shortness of breath. omeprazole (PRILOSEC) 20 mg capsule Take 1 capsule by mouth once daily. Take 60 min after levothyroxine then wait another 30 min to eat and take other meds. lisinopril 2.5 mg tablet Take 1 tablet by mouth once daily. potassium chloride ER (KLOR-CON M20) 20 mEq tablet Take 1 tablet by mouth once daily. pravastatin (PRAVACHOL) 20 mg tablet Take 1 tablet by mouth once daily. traZODone (DESYREL) 50 mg tablet Take 1 tablet by mouth daily at bedtime. finasteride (PROSCAR) 5 mg tablet Take 1 tablet by mouth once daily. gabapentin (NEURONTIN) 600 mg tablet Take 2 tablets by mouth three times a day for 180 days. levothyroxine (LEVOXYL) 175 mcg tablet Take one tab daily by mouth furosemide (LASIX) 40 mg tablet Take 1 tablet by mouth once daily. Per [facility] apixaban (ELIQUIS) 5 mg tab(s) Take 1 tablet by mouth two times a day. Per [facility] DULoxetine (CYMBALTA) 30 mg capsule Take 1 capsule by mouth once daily. MV with Sht-Jbhoynux-Ixuqgn (CENTRUM SILVER) 0.4 mg-300 mcg- 250 mcg tab Take 1 tablet by mouth once daily. tamsulosin (FLOMAX) 0.4 mg TAKE 1 CAPSULE ONE TIME DAILY 30 MINUTES AFTER THE SAME MEAL EACH DAY cyanocobalamin (VITAMIN B-12) 1,000 mcg tab Take 1 tablet by mouth once daily. vit C/E/Zn/coppr/lutein/zeaxan (PRESERVISION AREDS-2 ORAL) Take by mouth two times a day. ZINC ORAL Take 50 mg by mouth once daily. COMPOUNDED PRESCRIPTION rollator walker #: one Dx: I63.50, Z86.73, R26.89, G60.9, M62.81 and M48.06 No current facility-administered medications on file prior to visit. Social History Social History Tobacco Use Smoking status: Never Passive exposure: Never Smokeless tobacco: Never Vaping Use Vaping status: Never Used Substance Use Topics Alcohol use: Not Currently Drug use: Never Review of Symptoms REVIEW OF SYSTEMS SEE HPI EXAM: BP 104/58 Pulse 60 Resp 18 Wt 125.2 kg (276 lb) SpO2 92% BMI 37.96 kg/m Last 5 Encounter Wt Readings: Date: Wt: 11/17/2024 125.2 kg (276 lb) 11/09/2024 123.8 kg (273 lb) 10/26/2024 128.4 kg (283 lb) 10/25/2024 128.4 kg (283 lb) 10/08/2024 130.6 kg (288 lb) At home without clothes his dry wait has been [phone] General Appearance: Well appearing, alert, in no acute distress, well-hydrated, well nourished. and Obese. Lungs: Lungs clear to auscultation. No wheezing, rhonchi, rales.. Heart: RRR without murmur, gallop, or rubs. No ectopy. Abdomen: Normal abdominal exam, Abdomen soft, non-tender. Bowel sounds normal. No masses, organomegaly. Extremities: No deformities. Good capillary refill. Has chronic hemosiderin changes to both lower legs. Left leg is 1/2+ pitting and right has no pitting. . Health Maintenance List Shingrix Vaccine(1 of 2) Never done Advance Directive Discussion due on 06/23/2024 Depression Screening due on 10/08/2024 Anxiety Screening due on 10/08/2024 RSV Vaccine(1 - 1-dose 75+ series) due on 04/09/2025 Covid-19 Vaccine(2023- season) due on 10/08/2025 DTaP,Tdap,Td Vaccine(2 - Td or Tdap) due on 02/01/2025 Diabetes Screening due on 09/18/2027 Influenza Vaccine Completed Pneumococcal Vaccine: 50+ Completed Data reviewed Hosp discharge summary. Assessment and Plan ASSESSMENT/PLAN: 1. Chronic diastolic congestive heart failure (HCC) - ICD9: 428.32, 428.0, ICD10: I50.32 (primary diagnosis) - HFpEF 50+ - Compensated - Euvolemic - Continue current medications, cont f/u with cardio. Will get Cardio's last office note. Check - OXIMETRY - NOCTURNAL - BMP and BNP Dry weight goal is 270 lbs 2. Hypoxia - ICD9: 799.02, ICD10: R09.02 Check - OXIMETRY - NOCTURNAL 3. Essential hypertension - ICD9: 401.9, ICD10: I10 - Controlled - Continue current medications - Recommend home blood pressure monitoring, to bring results to next visit - Encouraged sodium restriction, DASH or Mediterranean diet - Recommend regular aerobic exercise - patient to make sure he is off the lisinopril and stay off it. Check BMP Has f/u in Mid November. Will move that till mid December. I spent a total of 43 minutes on the date of the service which included preparing to see the patient, gxzy-qy-agdq patient care, completing clinical documentation, performing a medically appropriate examination, counseling and educating the patient/family/caregiver and ordering medications, tests, or procedures. Jose Fam MD documented in this encounter [facility] 11-17-2024 Note [facility] 11-17-2024 Note HNO ID: [id number] Author: TAZ MARIE LPN Service: ? Author Type: LICENSED NURSE Type: Progress Notes Filed: 11/17/2024 07:37 Note Text: Scan on 11/16/2024 4:18 PM by Provider, External, PASolangeC: Consultation - [facility] 11-17-2024 History of Present illness Narrative Scan on 11/16/2024 4:18 PM by ProviderTerrance PA-C: Consultation - documented in this encounter [facility] 11-16-2024 Note [facility] 11-16-2024 History of Present illness Narrative Transitional Care Management (TCM) Follow-Up Note PCP Update / Actionable Items N/A N/A - No specialty updates needed Patient Source: [facility] (OON) Discharge Outreach Summary: 1st Outreach- Spoke to patient, he is doing much better, he is walking without his oxygen on at times and has little SOB, denies any chest pain, edema, lightheadedness, dizziness or blurred vision, he has PCP f/u tomorrow 11/17, no questions/concerns at this time Contact: Contact made with patient: Yes Spoke to: Patient Validation: Validated the person spoken to is actively involved in the patient's care. The patient was identified by Name and Date of . I'd like to get an update on how you're doing since our last phone call. Is now a good time to talk? Yes Symptoms: Are you feeling about the same, better or worse since leaving the hospital? Better Weekly Outreach: 1st Outreach Medications: Do you have any questions about taking your medications, including which medications you should be on, or do you need refills on your medications? No Patient Questions / Concerns: Do you have any questions related to your discharge? No Appointment / TCM Follow-Up: Have you had a follow-up visit with your Primary Care Provider or Specialist since you were discharged? Yes Do you need any assistance with scheduling or changing your follow-up appointments? Patient already has an appointment scheduled EDUCATION: N/A Pamela Mcnally RN November 16, 2024 4:09 PM documented in this encounter [facility] 11-09-2024 Note [facility] 11-04-2024 Note [facility] 11-04-2024 History of Present illness Narrative Pt has appointment with PCP 11/17/24 Scan on 11/01/2024 3:09 PM by Provider, ALESSIO Carlos: Discharge Summary documented in this encounter [facility] 11-03-2024 Note [facility] 11-03-2024 History of Present illness Narrative Value Based Care Management Inbound Call Provider Action / FYI: Date of Call: 11/03/2024 Time of Call: 12:34 PM Caller Name: Pt's spouseSudarshan Caller relationship to the patient: Family / Caregiver Patient identified by Name and Date of : Yes Reason for Call / Main Concern Returning call to Banquet Lead Summary of Callers Concern Action Taken / Plan Routed to Patient's Banquet Lead Tony Dodson RN November 03, 2024 12:34 PM documented in this encounter [facility] 11-03-2024 Note [facility] 11-03-2024 History of Present illness Narrative Transition Care Management (TCM) Initial Outreach PCP Update / Actionable Items N/A - No specialty updates needed Patient Source: Jtb-tx-Wazlhfr (OON) Discharge Outreach Summary: Spk with Pt and spouse, Noemi Plata Denies CP, Sob, Palpitations, wheezing, Pulse ox 97%, wt 265.4 lbs Pt instructed to weigh daily, spouse noted Pt has a 6.3 cups fluid limit Pt has occasional coughing, Pt is taking Tessalon Perles as needed minimal Left foot edema Instructed on Low sodium diet, Patient and spouse verbalized understanding. Instructed on coughing and deep breathing and cough and deep breathing Instructed to contact PCP/Cardiology Provider for symptom changes, concerns or needs. Patient and spouse verbalized understanding. Provided Healthy at home phone number Pt has Cardiology 11/11/[address] Boone, with Melania Patient discharged from Discharge date: 10/31/24 Admitted for: CHF Sob, Aflutter Readmission Risk: N/A Value-Based Contract: Lacy LATIF Contact: Contact made with patient: Yes Hi, my name is Sienna Nichols RN and I am calling from the [facility] on behalf of your Primary Care Provider, Jose Fam MD. I understand you were recently in the hospital, so I am calling to check in with you to ensure you are feeling well now that you are home. May I ask you a few questions related to your hospital stay and well-being? Yes Spoke to: Patient and Spouse, Noemi Johnson Validation: Validated the person spoken to is actively involved in the patient's care. The patient was identified by Name and Date of . Symptoms: Are you feeling about the same, better or worse since leaving the hospital? Better Medications: Do you have any questions about taking your medications, including which medications you should be on, or do you need refills on your medications? No Medication Review: Partial mediation review completed, per patient preference Discharge Instructions: Your Discharge Instructions / After Visit Summary (AVS) are important in guiding you through the recovery process. Do you have any questions related to your discharge instructions? No Home Care: Were you discharged with home care? No Equipment: Do you have all the necessary equipment and supplies needed at your home? Yes The patient verbalizes understanding the use of the equipment and supplies Social: Your mental health is as important to us as your physical health. Would you mind answering a few questions on this topic? Yes On the Storyboard review: Food Insecurity, Transportation, Depression, Housing, and Financial Strain: Complete any SDOHs, listed above, if not addressed in the past 3 months. If all SDOHs, listed above, have been addressed within the last 3 months, confirm responses and update any SDOHs that have changed. Action Taken: No needs verbalized. No action required. Follow-Up Appointment: [Appointment / TCM Follow-up within 14 days] I would like to help you schedule a hospital follow-up virtual or telephone visit with your PCP. This is a great way for you to connect with your provider to ensure you have safely transitioned home. If you are agreeable, I will send your request to a scheduler conveyor who will contact and assist you with that appointment. This will give you an opportunity to ask any questions or address any concerns you may have with your PCP. Inform the patient that if they have any questions or concerns prior to that appointment, to call their PCP's office right away. Appointment Action: No action required, patient declines appointment. Education details: Patient and family educated on issues/questions related to reason for admission, transition of care topics, and follow-up needed upon discharge. Sienna Nichols, HASEEB November 03, 2024 12:54 PM documented in this encounter [facility] 11-02-2024 Note [facility] 11-02-2024 History of Present illness Narrative POPULATION HEALTH NAVIGATION OUTREACH Action/FYI Received incoming call from pt spouse Requesting to cancel echocardiogram for 11/05/24 Appointment canceled Requesting to scheduled hospital follow up Requesting only to see PCP Scheduled hospital follow up 11/17/24 Reason for Outreach Healthy at Home Care Gaps due: N/A Call received from: Patient Patient Contacted: Spoke to patient/parent/or legal guardian Patient identified by name and date of Yes Healthy at Home actions taken: Patient scheduled/pended orders: Hospital Follow-up Appointment 11/09/2024 in [facility] with [facility] - Dx: SOB (shortness of breath) [R06.02]; HDZ (dyspnea on exertion) [R06.09] 11/09/2024 in [facility] with [facility] - Dx: SOB (shortness of breath) [R06.02]; HDZ (dyspnea on exertion) [R06.09] 11/17/2024 in [facility] with JOSE FAM - Hospital Follow up 12/08/2024 in [facility] with JOSE FAM - 6 week follow up Cough SOB HDZ Leg Edema 12/20/2024 in [facility] with INJECTION [facility] - Dx: SOB (shortness of breath) [R06.02]; HDZ (dyspnea on exertion) [R06.09] 12/20/2024 in RADIO [facility] with [facility] - Dx: SOB (shortness of breath) [R06.02]; HDZ (dyspnea on exertion) [R06.09] 12/20/2024 in CARD [facility] with NURSE CARD [facility] - Dx: SOB (shortness of breath) [R06.02]; HDZ (dyspnea on exertion) [R06.09] 12/31/2024 in [facility] with RONDA CURRY A - Drivers evaluation, Neuropathy, frequent falls, pacemaker implant, hx stroke, order in scanned docs 01/04/2025 in UROL [facility] with CLAUDE ALFARO - 1 YR F/U follow up BPH: UA, PVR, IPSS 01/07/[address]AN [facility] with CT [facility] (I-STAT) - Dx: Lung nodules [R91.8]; Pulmonary nodule [R91.1] 04/11/2025 in FAMP [facility] with JOSE FAM - medicare wellness exam Canceled/rescheduled appointment due to patient request: Type of appointment canceled Echocardiogram Navigation Signature: Kathy Davies MA November 02, 2024 11:52 AM documented in this encounter [facility] 11-01-2024 Note HNO ID: [id number] Author: NICK SPENCE MA Service: ? Author Type: Rn Radiation Oncology Type: Progress Notes Filed: 11/01/2024 13:09 Note Text: Scan on 10/31/2024 12:53 PM by ProviderTerrance PASolangeC: Discharge Summary Nick Spence MA [facility] 11-01-2024 History of Present illness Narrative Scan on 10/31/2024 12:53 PM by Terrance Haas PAQuita: Discharge Summary Nick Spence MA documented in this encounter [facility] 10-31-2024 Discharge summary Note Date/Time October 31, 2024 12:47pm [facility] Medical Records Department [address] [place] [address] [place] [address] Discharge Summary 10/31/24 1229 MR#: [id number] Acct: [id number] Name: REGAN ARANGO Rep #:[id number] : 1940 83 From: Jonh Shen DO PCP: Dr. Jose Fma MD Status:ADM IN [facility] Providers Date of Admission: 10/28/24 Primary Care Physician: Dr. Jose Fam MD Reason For Visit: CHF EXACERBATION Diagnosis Discharge Diagnosis (1) Congestive heart failure: Status: Acute Code(s): I50.9 - Heart failure, unspecified Plan: Acute HFpEF Patient's weight has gone up roughly 6 kg since August. Continue with IV furosemide. Fluid restrict, daily weights. Nutrition following, to reeval. Echo shows an EF 55% with stage 3 DD. RVSP 44mmHg. Unclear what is dry weight is, but perhaps around 250lb (114 kg) Advised patient and his family about daily weights and keeping a record of that. (2) Diabetes mellitus, type 2: Status: Acute Code(s): E11.9 - Type 2 diabetes mellitus without complications Plan: a1c only 6. I don't recommend medication at this time, but diet-control Plan Chronic conditions * Obesity class III with a BMI 52. Complicates care and recovery. * Atrial fibrillation: Status post pacemaker. On apixaban. * Depression: Continue duloxetine * BPH continue with tamsulosin and finasteride * Hypertension: Stable continue lisinopril * Hypothyroidism: Continue levothyroxine VTE prophylaxis: Not indicated as patient is already on anticoagulation. CODE STATUS: Addressed with the patient. Patient wishes to be full code. Medications at Discharge Home Medications pravastatin 20 mg tablet 20 mg PO DAILY Cholesterol 05/09/15 tamsulosin 0.4 mg capsule 0.4 mg PO DAILY Urine retention 05/09/15 trazodone 50 mg tablet 50 mg PO QHS sleep 05/09/15 cyanocobalamin (vitamin B-12) 1,000 mcg tablet 1,000 mcg PO DAILY supplement 04/14/24 duloxetine 30 mg capsule,delayed release 30 mg PO DAILY . 04/14/24 finasteride 5 mg tablet 5 mg PO DAILY BPH 04/14/24 gabapentin 600 mg tablet 1,800 mg PO Q12H neuropathy 04/14/24 jgthvafe-lj-wdhnk 300 mcg-K 60 mcg-lycop 600 mcg-lutein 300 mcg tablet (Centrum Silver Men) 1 tab PO DAILY supplement 04/14/24 potassium chloride 20 mEq tablet,extended release(part/cryst) 20 meq PO DAILY supplement 04/14/24 vitamins A,C,H-hiit-stwokv 2,148 mcg-113 mg-45 mg-17.4 mg tablet (Eye Multivitamin) 1 tab PO BID supplement 04/14/24 zinc gluconate 50 mg tablet 50 mg PO DAILY supplement 06/08/24 lisinopril 2.5 mg tablet 2.5 mg PO DAILY BP 06/14/24 apixaban 5 mg tablet (Eliquis) 5 mg PO BID #60 tabs 09/07/24 albuterol sulfate 90 mcg/actuation aerosol inhaler 2 inh inhalation Q4H PRN shortness of breath or wheezing 10/27/24 benzonatate 200 mg capsule 200 mg PO TID PRN cough #20 caps 10/27/24 levothyroxine 175 mcg tablet 175 mcg PO DAILY 10/27/24 omeprazole 20 mg capsule,delayed release 20 mg PO DAILY 10/27/24 furosemide 40 mg tablet 40 mg PO DAILY #30 tabs 10/31/24 Hospital Course Operations None Procedures 2-D Echocardiogram Summary of Care Provided Minutes Spent on Discharge: 35 Hospital Course: Patient presents with shortness of breath. We was in CHF exacerbation. He was diuresed with IV furosemide. Reviewing his records, his weight had gone up about6 kg since August. Patient advised to weigh self daily and keep a record, fluid restrict 1.5 liters/day, salt restrict. Weight / BMI Weight Weight: 122.152 kg Body Mass Index (BMI) 37.5 ABG / Lab / Microbiology Data 10/29/24 04:38 10/31/24 04:05 Laboratory: Laboratory Results - last 24 hr 10/30/24 04:38: Hemoglobin A1c 6.0 H 10/31/24 04:05: Sodium 141, Potassium 3.4, Chloride 99, Carbon Dioxide 31.5, Anion Gap 10, BUN 35 H, Creatinine 1.03, Estim Creat Clear Calc 73.72, Est GFR (MDRD) Non-Af 72, BUN/Creatinine Ratio 33.8 H, Glucose 115 H, Calcium 8.8 Microbiology: Microbiology 10/28/24 23:00 Urine, Clean Catch Urine Culture - Final Culture exhibits no growth. 10/28/24 09:30 Mucosa - Nose SARS-CoV-2, Influenza & RSV (PCR) - Final D/C Instructions Discharge Diet: 2000 Calorie Control Diet and - (1.5 liters fluid per day.) DC O2, CPAP, BIPAP Needs Home O2 Discharge instructions: No DC home with Oxygen: No Meaningful Use Info Meaningful Use Meaningful Use Diagnoses (Choose all that apply): None applicable CHF JOSE A/ARB ordered at discharge?: Yes Documented LVEF (%): 55 Ischemic Stroke Statin Dosing Therapy Reference: STATIN DOSE THERAPY REFERENCE: * Patients > 75 years receive moderate or high dose statin therapy. * Patients 75 years or YOUNGER should receive HIGH intensity statin dose unless contraindicated. You will be required to document reason for non-treatment if statin daily dose does not meet guidelines. HIGH DOSE STATIN THERAPY DAILY Atorvastatin > than or = to 40 mg Rosuvastatin > than or = to 20 mg Amlodipine + Atorvastatin > than or = to 2.5/40 mg Ezetimibe + Simvastatin 10/80 mg Simvastatin 80mg Discharge Plan Admission Admit Date/Time: 10/28/24 10:40 Primary Reason for Your Visit: heart failure Attending Provider: Jonh Shen Primary Care Provider: Jose Fam Instructions Patient Instructions: Heart Failure Meds, Heart Failure Flare Up Signs, Heart Failure: Tracking Your Weight, Heart Failure Make Changes Diet, Heart Failure: Medications to Help Your Heart, Heart Failure Dc, Heart Failure: Know Your Baselines Discharge Orders/Prescriptions Prescriptions: New furosemide 40 mg tablet 40 mg PO DAILY Qty: 30 0RF Continued cyanocobalamin (vitamin B-12) 1,000 mcg tablet 1,000 mcg PO DAILY potassium chloride 20 mEq tablet,ER particles/crystals 20 meq PO DAILY finasteride 5 mg tablet 5 mg PO DAILY duloxetine 30 mg capsule,delayed release(DR/EC) 30 mg PO DAILY lisinopril 2.5 mg tablet 2.5 mg PO DAILY trazodone 50 MG tablet 50 mg PO QHS tamsulosin 0.4 MG capsule 0.4 mg PO DAILY pravastatin 20 MG tablet 20 mg PO DAILY Eye Multivitamin 2,148 mcg-113 mg-45 mg-17.4mg tablet 1 tab PO BID Rx Instructions: administer with AM and PM meals Centrum Silver Men [id number] mcg tablet 1 tab PO DAILY gabapentin 600 mg tablet 1,800 mg PO Q12H albuterol sulfate 90 mcg/actuation HFA aerosol inhaler 2 inh inhalation Q4H PRN (Reason: shortness of breath or wheezing) levothyroxine 175 mcg tablet 175 mcg PO DAILY omeprazole 20 mg capsule,delayed release(DR/EC) 20 mg PO DAILY benzonatate 200 mg capsule 200 mg PO TID PRN (Reason: cough) Qty: 20 0RF Patient Comments: started today zinc gluconate 50 mg tablet 50 mg PO DAILY Eliquis 5 mg tablet 5 mg PO BID Qty: 60 11RF Discontinued amoxicillin-pot clavulanate 875-125 mg tablet 1 tab PO BID Qty: 14 0RF Patient Comments: pt started 10/27/24 Other Ambulatory Orders: Glucometer (Routine) Timeframe: 1 Day Location: Determined by Patient Ordered By: Dr. Jonh Shen Referrals / Follow Up: [facility] [Provider Group] - Within 1 Month Jose Fam MD [Primary Care Provider] - Within 2 Weeks Disposition Disposition (needs filled in before D/C Order can be placed): Home, Self Care Charges/Coding Visit Charges Inpatient E&M: 72308 Disch Hosp >30min 10/31/24 1247 <Electronically signed by Jonh Shen DO> Cosigner Signature (if applicable): CC: Dr. Jonh Shen DO; Dr. Jose Fam MD~ Signed [facility] Work Phone: [phone] Progress note Author Jonh Shen [facility] Note Date/Time October 31, 2024 12:29 pm [facility] Medical Records Department [address] [place] [id number] Progress Note - Hospitalist 10/31/24 0844 MR#: [id number] Acct: [id number] Name: REGAN ARANGO Rep #:[id number] : 1940 83 From: Jonh Shen DO PCP: Dr. Jose Fam MD Status:ADM IN Location: [place] [address]- 1 Reason for Visit Reason for Visit: Diagnoses Heart failure, unspecified (10/28/24) Subjective Subjective Feeling well. Objective Data Objective Data Vital Signs: Vital Signs Temp Pulse Resp BP Pulse Ox O2 Del Method O2 Flow Rate 36.6 C 65 18 121/63 H 95 Nasal Cannula 2 10/31/24 08:18 10/31/24 08:18 10/31/24 08:18 10/31/24 08:18 10/31/24 08:18 10/31/24 08:18 10/31/24 08:18 FiO2 95 10/28/24 08:46 Oxygen Flow Rate (L/min) 2 Oxygen Delivery Method Nasal Cannula Weight: 122.152 kg Body Mass Index (BMI) 37.5 Intake & Output: Intake and Output for Last 24 Hours 10/29/24 10/30/24 10/31/24 23:59 23:59 23:59 Intake Total 400 / 400 250 / 250 Output Total 1450 / 1450 1150 / 1750 950 / 950 Balance -1050 / -1050 -900 / -1500 -950 / -950 Lab / Micro Data 10/29/24 04:38 10/31/24 04:05 Labs: Laboratory Results - last 24 hr 10/30/24 04:38: Hemoglobin A1c 6.0 H 10/31/24 04:05: Sodium 141, Potassium 3.4, Chloride 99, Carbon Dioxide 31.5, Anion Gap 10, BUN 35 H, Creatinine 1.03, Estim Creat Clear Calc 73.72, Est GFR (MDRD) Non-Af 72, BUN/Creatinine Ratio 33.8 H, Glucose 115 H, Calcium 8.8 Micro: Microbiology 10/28/24 09:30 Mucosa - Nose SARS-CoV-2, Influenza & RSV (PCR) - Final Physical Exam Const alert and no apparent distress HEENT head/scalp atraumatic and moist oral mucous membranes Resp normal respiratory effort, no retractions, no use of accessory muscles and clearto auscultation bilaterally Cardio regular rate, regular rhythm, S1 normal heart sound and S2 normal heart sound GI normal to inspection, nondistended, normoactive bowel sounds, soft to palpation,non-tender and non-distended Neuro Sensorium / Orientation: awake and alert Assessment & Plan Assessment/Plan (1) Congestive heart failure: PLAN: Acute HFpEF Patient's weight has gone up roughly 6 kg since August. Continue with IV furosemide. Fluid restrict, daily weights. Nutrition following, to reeval. Echo shows an EF 55% with stage 3 DD. RVSP 44mmHg. Unclear what is dry weight is, but perhaps around 250lb (114 kg) Advised patient and his family about daily weights and keeping a record of that. (2) Diabetes mellitus, type 2: PLAN: a1c only 6. I don't recommend medication at this time, but diet-control PLAN: Plan Chronic conditions * Obesity class III with a BMI 52. Complicates care and recovery. * Atrial fibrillation: Status post pacemaker. On apixaban. * Depression: Continue duloxetine * BPH continue with tamsulosin and finasteride * Hypertension: Stable continue lisinopril * Hypothyroidism: Continue levothyroxine VTE prophylaxis: Not indicated as patient is already on anticoagulation. CODE STATUS: Addressed with the patient. Patient wishes to be full code. 10/31/249 <Electronically signed by Jonh Shen DO> Cosigner Signature (if applicable): CC: ~ Signed [facility] Work Phone: 1(455) 767-232505-11-2025 Discharge summary [facility] Medical Records Department [address] [place] [address] Discharge Summary 10/31/249 MR#: [id number] Acct: [id number] Name: REGAN ARANGO Rep #:[id number] : 1940 83 From: Jonh Shen DO PCP: Dr. Jose Fam MD Status:ADM IN Location: [place] [address]- 1 Providers Date of Admission: 10/28/24 Primary Care Physician: Dr. Jose Fam MD Reason For Visit: CHF EXACERBATION Diagnosis Discharge Diagnosis (1) Congestive heart failure: Status: Acute Code(s): I50.9 - Heart failure, unspecified Plan: Acute HFpEF Patient's weight has gone up roughly 6 kg since August. Continue with IV furosemide. Fluid restrict, daily weights. Nutrition following, to reeval. Echo shows an EF 55% with stage 3 DD. RVSP 44mmHg. Unclear what is dry weight is, but perhaps around 250lb (114 kg) Advised patient and his family about daily weights and keeping a record of that. (2) Diabetes mellitus, type 2: Status: Acute Code(s): E11.9 - Type 2 diabetes mellitus without complications Plan: a1c only 6. I don't recommend medication at this time, but diet-control Plan Chronic conditions * Obesity class III with a BMI 52. Complicates care and recovery. * Atrial fibrillation: Status post pacemaker. On apixaban. * Depression: Continue duloxetine * BPH continue with tamsulosin and finasteride * Hypertension: Stable continue lisinopril * Hypothyroidism: Continue levothyroxine VTE prophylaxis: Not indicated as patient is already on anticoagulation. CODE STATUS: Addressed with the patient. Patient wishes to be full code. Medications at Discharge Home Medications pravastatin 20 mg tablet 20 mg PO DAILY Cholesterol 05/09/15 tamsulosin 0.4 mg capsule 0.4 mg PO DAILY Urine retention 05/09/15 trazodone 50 mg tablet 50 mg PO QHS sleep 05/09/15 cyanocobalamin (vitamin B-12) 1,000 mcg tablet 1,000 mcg PO DAILY supplement 04/14/24 duloxetine 30 mg capsule,delayed release 30 mg PO DAILY . 04/14/24 finasteride 5 mg tablet 5 mg PO DAILY BPH 04/14/24 gabapentin 600 mg tablet 1,800 mg PO Q12H neuropathy 04/14/24 kvnkmypr-ky-lidzs 300 mcg-K 60 mcg-lycop 600 mcg-lutein 300 mcg tablet (Centrum Silver Men) 1 tab PO DAILY supplement 04/14/24 potassium chloride 20 mEq tablet,extended release(part/cryst) 20 meq PO DAILY supplement 04/14/24 vitamins A,C,J-ccen-myyejx 2,148 mcg-113 mg-45 mg-17.4 mg tablet (Eye Multivitamin) 1 tab PO BID supplement 04/14/24 zinc gluconate 50 mg tablet 50 mg PO DAILY supplement 06/08/24 lisinopril 2.5 mg tablet 2.5 mg PO DAILY BP 06/14/24 apixaban 5 mg tablet (Eliquis) 5 mg PO BID #60 tabs 09/07/24 albuterol sulfate 90 mcg/actuation aerosol inhaler 2 inh inhalation Q4H PRN shortness of breath or wheezing 10/27/24 benzonatate 200 mg capsule 200 mg PO TID PRN cough #20 caps 10/27/24 levothyroxine 175 mcg tablet 175 mcg PO DAILY 10/27/24 omeprazole 20 mg capsule,delayed release 20 mg PO DAILY 10/27/24 furosemide 40 mg tablet 40 mg PO DAILY #30 tabs 10/31/24 Hospital Course Operations None Procedures 2-D Echocardiogram Summary of Care Provided Minutes Spent on Discharge: 35 Hospital Course: Patient presents with shortness of breath. We was in CHF exacerbation. He was diuresed with IV furosemide. Reviewing his records, his weight had gone up about6 kg since August. Patient advised to weigh self daily and keep a record, fluid restrict 1.5 liters/day, salt restrict. Weight / BMI Weight Weight: 122.152 kg Body Mass Index (BMI) 37.5 ABG / Lab / Microbiology Data 10/29/24 04:38 10/31/24 04:05 Laboratory: Laboratory Results - last 24 hr 10/30/24 04:38: Hemoglobin A1c 6.0 H 10/31/24 04:05: Sodium 141, Potassium 3.4, Chloride 99, Carbon Dioxide 31.5, Anion Gap 10, BUN 35 H, Creatinine 1.03, Estim Creat Clear Calc 73.72, Est GFR (MDRD) Non-Af 72, BUN/Creatinine Ratio 33.8H, Glucose 115 H, Calcium 8.8 Microbiology: Microbiology 10/28/24 23:00 Urine, Clean Catch Urine Culture - Final Culture exhibits no growth. 10/28/24 09:30 Mucosa - Nose SARS-CoV-2, Influenza & RSV (PCR) - Final D/C Instructions Discharge Diet: 2000 Calorie Control Diet and - (1.5 liters fluid per day.) DC O2, CPAP, BIPAP Needs Home O2 Discharge instructions: No DC home with Oxygen: No Meaningful Use Info Meaningful Use Meaningful Use Diagnoses (Choose all that apply): None applicable CHF JOSE A/ARB ordered at discharge?: Yes Documented LVEF (%): 55 Ischemic Stroke Statin Dosing Therapy Reference: STATIN DOSE THERAPY REFERENCE: * Patients > 75 years receive moderate or high dose statin therapy. * Patients 75 years or YOUNGER should receive HIGH intensity statin dose unless contraindicated. You will be required to document reason for non-treatment if statin daily dose does not meet guidelines. HIGH DOSE STATIN THERAPY DAILY Atorvastatin > than or = to 40 mg Rosuvastatin > than or = to 20 mg Amlodipine + Atorvastatin > than or = to 2.5/40 mg Ezetimibe + Simvastatin 10/80 mg Simvastatin 80mg Discharge Plan Admission Admit Date/Time: 10/28/24 10:40 Primary Reason for Your Visit: heart failure Attending Provider: Jonh Shen Primary Care Provider: Jose Fam Instructions Patient Instructions: Heart Failure Meds, Heart Failure Flare Up Signs, Heart Failure: Tracking Your Weight, Heart Failure Make Changes Diet, Heart Failure: Medications to Help Your Heart, Heart Failure Dc, Heart Failure: Know Your Baselines Discharge Orders/Prescriptions Prescriptions: New furosemide 40 mg tablet 40 mg PO DAILY Qty: 30 0RF Continued cyanocobalamin (vitamin B-12) 1,000 mcg tablet 1,000 mcg PO DAILY potassium chloride 20 mEq tablet,ER particles/crystals 20 meq PO DAILY finasteride 5 mg tablet 5 mg PO DAILY duloxetine 30 mg capsule,delayed release(DR/EC) 30 mg PO DAILY lisinopril 2.5 mg tablet 2.5 mg PO DAILY trazodone 50 MG tablet 50 mg PO QHS tamsulosin 0.4 MG capsule 0.4 mg PO DAILY pravastatin 20 MG tablet 20 mg PO DAILY Eye Multivitamin 2,148 mcg-113 mg-45 mg-17.4mg tablet 1 tab PO BID Rx Instructions: administer with AM and PM meals Centrum Silver Men [phone] mcg tablet 1 tab PO DAILY gabapentin 600 mg tablet 1,800 mg PO Q12H albuterol sulfate 90 mcg/actuation HFA aerosol inhaler 2 inh inhalation Q4H PRN (Reason: shortness of breath or wheezing) levothyroxine 175 mcg tablet 175 mcg PO DAILY omeprazole 20 mg capsule,delayed release(DR/EC) 20 mg PO DAILY benzonatate 200 mg capsule 200 mg PO TID PRN (Reason: cough) Qty: 20 0RF Patient Comments: started today zinc gluconate 50 mg tablet 50 mg PO DAILY Eliquis 5 mg tablet 5 mg PO BID Qty: 60 11RF Discontinued amoxicillin-pot clavulanate 875-125 mg tablet 1 tab PO BID Qty: 14 0RF Patient Comments: pt started 10/27/24 Other Ambulatory Orders: Glucometer (Routine) Timeframe: 1 Day Location: Determined by Patient Ordered By: Dr. Jonh Shen Referrals / Follow Up: [facility] [Provider Group] - Within 1 Month Jose Fam MD [Primary Care Provider] - Within 2 Weeks Disposition Disposition (needs filled in before D/C Order can be placed): Home, Self Care Charges/Coding Visit Charges Inpatient E&M: 81858 Disch Hosp >30min 10/31/24 1247 Cosigner Signature (if applicable): CC: Dr. Jonh Shen DO; Dr. Jose Fam MD~ Signed [facility]05[facility]11[facility] Progress note [facility] Medical Records Department [address] [place] [address] Progress Note - Hospitalist 10/31/24 0844 MR#: [id number] Acct: [id number] Name: REGAN ARANGO Rep #:[id number] : 1940 83 From: Jonh Shen DO PCP: Dr. Jose Fam MD Status:ADM IN Location: [place] [address] Reason for Visit Reason for Visit: Diagnoses Heart failure, unspecified (10/28/24) Subjective Subjective Feeling well. Objective Data Objective Data Vital Signs: Vital Signs Temp Pulse Resp BP Pulse Ox O2 Del Method O2 Flow Rate 36.6 C 65 18 121/63 H 95 Nasal Cannula 2 10/31/24 08:18 10/31/24 08:18 10/31/24 08:18 10/31/24 08:18 10/31/24 08:18 10/31/24 08:18 10/31/24 08:18 FiO2 95 10/28/24 08:46 Oxygen Flow Rate (L/min) 2 Oxygen Delivery Method Nasal Cannula Weight: 122.152 kg Body Mass Index (BMI) 37.5 Intake & Output: Intake and Output for Last 24 Hours 10/29/24 10/30/24 10/31/24 23:59 23:59 23:59 Intake Total 400 / 400 250 / 250 Output Total 1450 / 1450 1150 / 1750 950 / 950 Balance -1050 / -1050 -900 / -1500 -950 / -950 Lab / Micro Data 10/29/24 04:38 10/31/24 04:05 Labs: Laboratory Results - last 24 hr 10/30/24 04:38: Hemoglobin A1c 6.0 H 10/31/24 04:05: Sodium 141, Potassium 3.4, Chloride 99, Carbon Dioxide 31.5, Anion Gap 10, BUN 35 H, Creatinine 1.03, Estim Creat Clear Calc 73.72, Est GFR (MDRD) Non-Af 72, BUN/Creatinine Ratio 33.8H, Glucose 115 H, Calcium 8.8 Micro: Microbiology 10/28/24 09:30 Mucosa - Nose SARS-CoV-2, Influenza & RSV (PCR) - Final Physical Exam Const alert and no apparent distress HEENT head/scalp atraumatic and moist oral mucous membranes Resp normal respiratory effort, no retractions, no use of accessory muscles and clearto auscultation bilaterally Cardio regular rate, regular rhythm, S1 normal heart sound and S2 normal heart sound GI normal to inspection, nondistended, normoactive bowel sounds, soft to palpation,non-tender and non-distended Neuro Sensorium / Orientation: awake and alert Assessment & Plan Assessment/Plan (1) Congestive heart failure: PLAN: Acute HFpEF Patient's weight has gone up roughly 6 kg since August. Continue with IV furosemide. Fluid restrict, daily weights. Nutrition following, to reeval. Echo shows an EF 55% with stage 3 DD. RVSP 44mmHg. Unclear what is dry weight is, but perhaps around 250lb (114 kg) Advised patient and his family about daily weights and keeping a record of that. (2) Diabetes mellitus, type 2: PLAN: a1c only 6. I don't recommend medication at this time, but diet-control PLAN: Plan Chronic conditions * Obesity class III with a BMI 52. Complicates care and recovery. * Atrial fibrillation: Status post pacemaker. On apixaban. * Depression: Continue duloxetine * BPH continue with tamsulosin and finasteride * Hypertension: Stable continue lisinopril * Hypothyroidism: Continue levothyroxine VTE prophylaxis: Not indicated as patient is already on anticoagulation. CODE STATUS: Addressed with the patient. Patient wishes to be full code. 10/31/24 1229 Cosigner Signature (if applicable): CC: ~ Signed [facility]05-10-2025 Progress note Author Jonh Shen [facility] Note Date/Time October 30, 2024 11:33 am [facility] Medical Records Department [address] [place] [address] Progress Note - Hospitalist 10/30/24 0746 MR#: [id number] Acct: [id number] Name: REGAN ARANGO Rep #:[id number] : 1940 83 From: Jonh Shen DO PCP: Dr. Jose Fam MD Status:ADM IN Location: [id number] Reason for Visit Reason for Visit: Diagnoses Heart failure, unspecified (10/28/24) Subjective Subjective Breathing well. Objective Data Objective Data Vital Signs: Vital Signs Temp Pulse Resp BP Pulse Ox O2 Del Method O2 Flow Rate 36.6 C 62 19 H 123/79 H 95 Nasal Cannula 3 10/30/24 03:15 10/30/24 03:15 10/30/24 03:15 10/30/24 03:15 10/30/24 03:15 10/30/24 03:19 10/30/24 03:19 FiO2 95 10/28/24 08:46 Oxygen Flow Rate (L/min) 3 Oxygen Delivery Method Nasal Cannula Weight: 131.1 kg Body Mass Index (BMI) 52.0 Intake & Output: Intake and Output for Last 24 Hours 10/28/24 10/29/24 10/30/24 23:59 23:59 23:59 Intake Total 440 / 440 400 / 400 0 / 0 Output Total 1585 / 1585 1450 / 1450 300 / 300 Balance -1145 / -1145 -1050 / -1050 -300 / -300 Lab / Micro Data 10/29/24 04:38 10/30/24 05:20 Labs: Laboratory Results - last 24 hr 10/30/24 05:20: Sodium 141, Potassium 3.5, Chloride 99, Carbon Dioxide 33.0 H, Anion Gap 9, BUN 34 H, Creatinine 1.15, Estim Creat Clear Calc 66.02, Est GFR (MDRD) Non-Af 63, BUN/Creatinine Ratio 29.1 H, Glucose 132 H, Calcium 8.5 Micro: Microbiology 10/28/24 09:30 Mucosa - Nose SARS-CoV-2, Influenza & RSV (PCR) - Final Radiography Diagnostic Testing: Radiology Impression Echocardiogram 10/28/24 14:49 Interpretation Summary The study was technically difficult. Mild concentric left ventricular hypertrophy. The LV systolic function is normal. EF is 55 %. Stage 3 diastolic dysfunction. Trivial to mild mitral valve regurgitation. Mild tricuspid valve insufficiency. Right ventricular systolic pressure estimated to be 44 mmHg. Mildly dilated aortic root. Ordering Physician: Jonh Shen Referring Physician: Jose Fam Performed By: Bharati Pabon, RDCS, RVT Physical Exam Const alert and no apparent distress HEENT head/scalp atraumatic and moist oral mucous membranes Resp normal respiratory effort, no retractions, no use of accessory muscles and clearto auscultation bilaterally Cardio regular rate, regular rhythm, S1 normal heart sound and S2 normal heart sound GI normal to inspection, nondistended, normoactive bowel sounds, soft to palpation,non-tender and non-distended Extremity General Extremity: edema bilateral lower extremity Assessment & Plan Assessment/Plan (1) Congestive heart failure: PLAN: Acute HFpEF Patient's weight has gone up roughly 6 kg since August. Continue with IV furosemide. I did a bedside POCUS and was concerning for some LV hypokinesis but limited windows due to body habitus so we will check a formal echocardiogram. Fluid restrict, daily weights. Echo shows an EF 55% with stage 3 DD. RVSP 44mmHg. on 10/29 I discussed with the patient's and dtr about the echo findings and the pulmonary hypertension. Itold him that the pulmonary hypertension with the exception of young females is secondary to something. I inquired about sleep apnea which patient states that he has been evaluated and deemed positive for sleep apnea but he did not feel heactually has sleep apnea because he could not tolerate CPAP. I explained to he and his family that that is not a means of diagnosing sleep apnea other than he cannot tolerate CPAP. And daughter asked how to you delineate the degree of pulmonary hypertension due to heart failure and sleep apnea, I told him that we cannot but that he should be treated for sleep apnea if we want to overall treathim. If he is unable to tolerate CPAP then he may be evaluated for an inspire device or a UPPP surgery. In the meantime we will continue with diuresis while he is here. And also I tried to a part of the patient in regards to taking control over his medical care in regards to fluid restriction, daily weights salt restriction. I could not get a good sense from the patient's demeanor if that is something that he is interested in or not. PLAN: Plan Chronic conditions * Obesity class III with a BMI 52. Complicates care and recovery. * Atrial fibrillation: Status post pacemaker. On apixaban. * Depression: Continue duloxetine * BPH continue with tamsulosin and finasteride * Hypertension: Stable continue lisinopril * Hypothyroidism: Continue levothyroxine VTE prophylaxis: Not indicated as patient is already on anticoagulation. CODE STATUS: Addressed with the patient. Patient wishes to be full code. Charges/Coding Visit Charges Inpatient E&M: 08962 Subs Hosp L2 10/30/24 1133 <Electronically signed by Jonh Shen DO> Cosigner Signature (if applicable): CC: ~ Signed [facility] Work Phone: 1(963) 850-982305-10-2025 Progress note [facility] Medical Records Department [address] [place] [address] Progress Note - Hospitalist 10/30/24 0746 MR#: [id number] Acct: [id number] Name: REGAN ARANGO Rep #:[id number] : 1940 83 From: Jonh Shen DO PCP: Dr. Jose Fam MD Status:ADM IN Location: [place] [address] Reason for Visit Reason for Visit: Diagnoses Heart failure, unspecified (10/28/24) Subjective Subjective Breathing well. Objective Data Objective Data Vital Signs: Vital Signs Temp Pulse Resp BP Pulse Ox O2 Del Method O2 Flow Rate 36.6 C 62 19 H 123/79 H 95 Nasal Cannula 3 10/30/24 03:15 10/30/24 03:15 10/30/24 03:15 10/30/24 03:15 10/30/24 03:15 10/30/24 03:19 10/30/24 03:19 FiO2 95 10/28/24 08:46 Oxygen Flow Rate (L/min) 3 Oxygen Delivery Method Nasal Cannula Weight: 131.1 kg Body Mass Index (BMI) 52.0 Intake & Output: Intake and Output for Last 24 Hours 10/28/24 10/29/24 10/30/24 23:59 23:59 23:59 Intake Total 440 / 440 400 / 400 0 / 0 Output Total 1585 / 1585 1450 / 1450 300 / 300 Balance -1145 / -1145 -1050 / -1050 -300 / -300 Lab / Micro Data 10/29/24 04:38 10/30/24 05:20 Labs: Laboratory Results - last 24 hr 10/30/24 05:20: Sodium 141, Potassium 3.5, Chloride 99, Carbon Dioxide 33.0 H, Anion Gap 9, BUN 34 H, Creatinine 1.15, Estim Creat Clear Calc 66.02, Est GFR (MDRD) Non-Af 63, BUN/Creatinine Ratio 29.1 H, Glucose 132 H, Calcium 8.5 Micro: Microbiology 10/28/24 09:30 Mucosa - Nose SARS-CoV-2, Influenza & RSV (PCR) - Final Radiography Diagnostic Testing: Radiology Impression Echocardiogram 10/28/24 14:49 Interpretation Summary The study was technically difficult. Mild concentric left ventricular hypertrophy. The LV systolic function is normal. EF is 55 %. Stage 3 diastolic dysfunction. Trivial to mild mitral valve regurgitation. Mild tricuspid valve insufficiency. Right ventricular systolic pressure estimated to be 44 mmHg. Mildly dilated aortic root. Ordering Physician: Jonh Shen Referring Physician: Jose Fam Performed By: Bharati Pabon, LUZ, RVT Physical Exam Const alert and no apparent distress HEENT head/scalp atraumatic and moist oral mucous membranes Resp normal respiratory effort, no retractions, no use of accessory muscles and clearto auscultation bilaterally Cardio regular rate, regular rhythm, S1 normal heart sound and S2 normal heart sound GI normal to inspection, nondistended, normoactive bowel sounds, soft to palpation,non-tender and non-distended Extremity General Extremity: edema bilateral lower extremity Assessment & Plan Assessment/Plan (1) Congestive heart failure: PLAN: Acute HFpEF Patient's weight has gone up roughly 6 kg since August. Continue with IV furosemide. I did a bedside POCUS and was concerning for some LV hypokinesis but limited windows due to body habitus so we will check a formal echocardiogram. Fluid restrict, daily weights. Echo shows an EF 55% with stage 3 DD. RVSP 44mmHg. on 10/29 I discussed with the patient's and dtr about the echo findings and the pulmonary hypertension. Itold him that the pulmonary hypertensionwith the exception of young females is secondary to something. I inquired about sleep apnea which patient states that he has been evaluated and deemed positive for sleep apnea but he did not feel heactually has sleep apnea because he could not tolerate CPAP. I explained to he and his family that that is not a means of diagnosing sleep apnea other than he cannot tolerate CPAP. And daughter asked how to you delineate the degree of pulmonary hypertension due to heart failure and sleep apnea, I told him that we cannot but that he should be treated for sleep apnea if we want to overall treathim. If he is unable to tolerate CPAP then he may be evaluated for an inspire device or a UPPP surgery. Inthe meantime we will continue with diuresis while he is here. And also I tried to a part of the patient in regards to taking control over his medical care in regards to fluid restriction, daily weights salt restriction. I could not get a good sense from the patient's demeanor if that is something that he is interested in or not. PLAN: Plan Chronic conditions * Obesity class III with a BMI 52. Complicates care and recovery. * Atrial fibrillation: Status post pacemaker. On apixaban. * Depression: Continue duloxetine * BPH continue with tamsulosin and finasteride * Hypertension: Stable continue lisinopril * Hypothyroidism: Continue levothyroxine VTE prophylaxis: Not indicated as patient is already on anticoagulation. CODE STATUS: Addressed with the patient. Patient wishes to be full code. Charges/Coding Visit Charges Inpatient E&M: 50474 Subs Hosp L2 10/30/24 1133 Cosigner Signature (if applicable): CC: ~ Signed [facility]05-09-2025 Progress note Author Jonh Shen [facility] Note Date/Time October 29, 2024 12:25p m [facility] Medical Records Department [address] [place] [address] Progress Note - Hospitalist 10/29/24 0737 MR#: [id number] Acct: [id number] Name: REGAN ARANGO Rep #:[id number] : 1940 83 From: Jonh Shen DO PCP: Dr. Jose Fam MD Status:ADM IN Location: [place] [address] Reason for Visit Reason for Visit: Diagnoses Heart failure, unspecified (10/28/24) Subjective Subjective Breathing well. Objective Data Objective Data Vital Signs: Vital Signs Temp Pulse Resp BP Pulse Ox O2 Del Method O2 Flow Rate 36.2 C L 67 18 125/49 H 94 Nasal Cannula 3 10/29/24 02:45 10/29/24 02:45 10/29/24 02:45 10/29/24 02:45 10/29/24 02:45 10/29/24 02:45 10/29/24 02:45 FiO2 95 10/28/24 08:46 Oxygen Flow Rate (L/min) 3 Oxygen Delivery Method Nasal Cannula Weight: 169.3 kg Body Mass Index (BMI) 52.0 Intake & Output: Intake and Output for Last 24 Hours 10/27/24 10/28/24 10/29/24 23:59 23:59 23:59 Intake Total 440 / 440 Output Total 1585 / 1585 475 / 475 Balance -1145 / -1145 -475 / -475 Lab / Micro Data 10/29/24 04:38 10/29/24 04:38 Labs: Laboratory Results - last 24 hr 10/28/24 08:00: WBC 9.1, RBC 4.92, Hgb 13.8, Hct 43.0, MCV 87.4, MCH 28.0, MCHC 32.1, RDW Std Deviation 57.6 H, RDW Coeff of Alessandra 18.2 H, Plt Count 136 L, MPV 10.7, Immature Gran % (Auto) 0.700, Neut % (Auto) 92.0 H, Lymph % (Auto) 2.2 L, [place] % (Auto) 4.3, Eos % (Auto) 0.2, Baso % (Auto) 0.6, Absolute Neuts (auto) 8.4 H, Absolute Lymphs (auto) 0.20 L, Nucleated RBC % 0, Sodium 140, Potassium 4.1, Chloride 102, Carbon Dioxide 26.5, Anion Gap 12, BUN 23 H, Creatinine 1.07,Estim Creat Clear Calc 70.96, Est GFR (MDRD) Non-Af 68, BUN/Creatinine Ratio 21.4 H, Glucose 148 H, Calcium 9.0, NT pro BNP II 2134 H 10/28/24 23:00: Urine Color Straw, Urine Clarity Clear, Urine pH 6.0, Ur Specific Pepin 1.015, Urine Protein 100 H, Urine Glucose (UA) Normal, Urine Ketones Negative, Urine Occult Blood 50 H, Urine Nitrite Negative, Urine Bilirubin Negative, Urine Urobilinogen Normal, Ur Leukocyte Esterase Negative, Urine RBC 0-5 SEEN, Urine WBC 0-5 SEEN, Ur Squamous Epith Cells 0-5 SEEN, Urine Bacteria 0 SEEN, Hyaline Casts 0-5 SEEN, Urine Mucus 1+ 10/28/24 23:43: NT pro BNP II 2505 H 10/29/24 04:38: WBC 9.2, RBC 4.88, Hgb 13.8, Hct 43.1, MCV 88.3, MCH 28.3, MCHC 32.0, RDW Std Deviation 57.4 H, RDW Coeff of Alessandra 17.6 H, Plt Count 132 L, MPV 11.3, Immature Gran % (Auto) 0.800, Neut % (Auto) 89.0 H, Lymph % (Auto) 4.5 L, [place] % (Auto) 5.2, Eos % (Auto) 0.0, Baso % (Auto) 0.5, Absolute Neuts (auto) 8.1 H, Absolute Lymphs (auto) 0.41 L, Nucleated RBC % 0, Sodium 141, Potassium 3.4, Chloride 100, Carbon Dioxide 29.7, Anion Gap 12, BUN 22 H, Creatinine 1.06,Estim Creat Clear Calc 82.84, Est GFR (MDRD) Non-Af 69, BUN/Creatinine Ratio 20.6 H, Glucose 153 H, Calcium 8.6 Micro: Microbiology 10/28/24 09:30 Mucosa - Nose SARS-CoV-2, Influenza & RSV (PCR) - Final ABG Data ABG results: ABG 10/28/24 23:39 Specimen Type ART Sample Site L Radial pH 7.39 Bicarbonate Actual 35.7 H Total CO2 38 Base Excess 11 H O2 Saturation 96 O2 % 3.0 ABG pCO2 59.3 H ABG pO2 87 Naveen Test Positive O2 Delivery Device Cannula Vent Mode Not entered Radiography Diagnostic Testing: Radiology Impression Chest X-Ray 10/28/24 16:37 IMPRESSION: NO ACUTE FINDINGS. Reading Location: [facility] Chest X-Ray 10/28/24 23:20 IMPRESSION: Findings concerning for vascular congestion. Reading Location: [facility] Physical Exam Const alert and no apparent distress HEENT head/scalp atraumatic and moist oral mucous membranes Resp normal respiratory effort and no retractions Resp Narrative: bilateral crackles. Cardio regular rate, regular rhythm and S1 normal heart sound GI normal to inspection, nondistended, normoactive bowel sounds, soft to palpation,non-tender and non-distended Neuro Sensorium / Orientation: awake and alert Assessment & Plan Assessment/Plan (1) Congestive heart failure: PLAN: Acute CHF exacerbation: Unclear type at this time. Patient's weight has gone up roughly 6 kg since August. Continue with IV furosemide. I did a bedside POCUS and was concerning for some LV hypokinesis but limited windows due to body habitus so we will check a formal echocardiogram. Fluid restrict, daily weights. I personally reviewed the patient's chest x-ray along with the family and reviewed POCUS findings with the patient and his family. Explained that despitehis temperatures I am not convinced that he has a pneumonia and will hold off onantibiotics at this time. Though if he does start manifesting symptoms and we can reconsider. In the meantime we will check a formal PA and lateral chest x-ray. PLAN: Plan Chronic conditions * Obesity class III with a BMI 52. Complicates care and recovery. * Atrial fibrillation: Status post pacemaker. On apixaban. * Depression: Continue duloxetine * BPH continue with tamsulosin and finasteride * Hypertension: Stable continue lisinopril * Hypothyroidism: Continue levothyroxine VTE prophylaxis: Not indicated as patient is already on anticoagulation. CODE STATUS: Addressed with the patient. Patient wishes to be full code. Charges/Coding Visit Charges Inpatient E&M: 03523 Subs Hosp L2 10/29/24 1227 <Electronically signed by Jonh Shen DO> Cosigner Signature (if applicable): CC: ~ Signed [facility] Work Phone: [phone]) 889-523605-09-2025 Progress note [facility] Medical Records Department [address] [place] [address] Progress Note - Hospitalist 10/29/24 0737 MR#: [id number] Acct: [id number] Name: REGAN ARANGO Rep #:[id number] : 1940 83 From: Jonh Shen DO PCP: Dr. Jose Fam MD Status:ADM IN Location: [place] [address] Reason for Visit Reason for Visit: Diagnoses Heart failure, unspecified (10/28/24) Subjective Subjective Breathing well. Objective Data Objective Data Vital Signs: Vital Signs Temp Pulse Resp BP Pulse Ox O2 Del Method O2 Flow Rate 36.2 C L 67 18 125/49 H 94 Nasal Cannula 3 10/29/24 02:45 10/29/24 02:45 10/29/24 02:45 10/29/24 02:45 10/29/24 02:45 10/29/24 02:45 10/29/24 02:45 FiO2 95 10/28/24 08:46 Oxygen Flow Rate (L/min) 3 Oxygen Delivery Method Nasal Cannula Weight: 169.3 kg Body Mass Index (BMI) 52.0 Intake & Output: Intake and Output for Last 24 Hours 10/27/24 10/28/24 10/29/24 23:59 23:59 23:59 Intake Total 440 / 440 Output Total 1585 / 1585 475 / 475 Balance -1145 / -1145 -475 / -475 Lab / Micro Data 10/29/24 04:38 10/29/24 04:38 Labs: Laboratory Results - last 24 hr 10/28/24 08:00: WBC 9.1, RBC 4.92, Hgb 13.8, Hct 43.0, MCV 87.4, MCH 28.0, MCHC 32.1, RDW Std Deviation 57.6 H, RDW Coeff of Alessandra 18.2 H, Plt Count 136 L, MPV 10.7, Immature Gran % (Auto) 0.700, Neut % (Auto) 92.0 H, Lymph % (Auto) 2.2 L, [place] % (Auto) 4.3, Eos % (Auto) 0.2, Baso % (Auto) 0.6, Absolute Neuts (auto) 8.4 H, Absolute Lymphs (auto) 0.20 L, Nucleated RBC % 0, Sodium 140, Potassium 4.1,Chloride 102, Carbon Dioxide 26.5, Anion Gap 12, BUN 23 H, Creatinine 1.07,Estim Creat Clear Calc 70.96, Est GFR (MDRD) Non-Af 68, BUN/Creatinine Ratio 21.4 H, Glucose 148 H, Calcium 9.0, NT pro BNP II 2134 H 10/28/24 23:00: Urine Color Straw, Urine Clarity Clear, Urine pH 6.0, Ur Specific Pepin 1.015, Urine Protein 100 H, Urine Glucose (UA) Normal, Urine Ketones Negative, Urine Occult Blood 50 H, UrineNitrite Negative, Urine Bilirubin Negative, Urine Urobilinogen Normal, Ur Leukocyte Esterase Negative, Urine RBC 0-5 SEEN, Urine WBC 0-5 SEEN, Ur Squamous Epith Cells 0-5 SEEN, Urine Bacteria 0 SEEN,Hyaline Casts 0-5 SEEN, Urine Mucus 1+ 10/28/24 23:43: NT pro BNP II 2505 H 10/29/24 04:38: WBC 9.2, RBC 4.88, Hgb 13.8, Hct 43.1, MCV 88.3, MCH 28.3, MCHC 32.0, RDW Std Deviation 57.4 H, RDW Coeff of Alessandra 17.6 H, Plt Count 132 L, MPV 11.3, Immature Gran % (Auto) 0.800, Neut % (Auto) 89.0 H, Lymph % (Auto) 4.5 L, Muhlenberg % (Auto) 5.2, Eos % (Auto) 0.0, Baso % (Auto) 0.5, Absolute Neuts (auto) 8.1 H, Absolute Lymphs (auto) 0.41 L, Nucleated RBC % 0, Sodium 141, Potassium 3.4,Chloride 100, Carbon Dioxide 29.7, Anion Gap 12, BUN 22 H, Creatinine 1.06,Estim Creat Clear Calc 82.84, Est GFR (MDRD) Non-Af 69, BUN/Creatinine Ratio 20.6 H, Glucose 153 H, Calcium 8.6 Micro: Microbiology 10/28/24 09:30 Mucosa - Nose SARS-CoV-2, Influenza & RSV (PCR) - Final ABG Data ABG results: ABG 10/28/24 23:39 Specimen Type ART Sample Site L Radial pH 7.39 Bicarbonate Actual 35.7 H Total CO2 38 Base Excess 11 H O2 Saturation 96 O2 % 3.0 ABG pCO2 59.3 H ABG pO2 87 Naveen Test Positive O2 Delivery Device Cannula Vent Mode Not entered Radiography Diagnostic Testing: Radiology Impression Chest X-Ray 10/28/24 16:37 IMPRESSION: NO ACUTE FINDINGS. Reading Location: [facility] Chest X-Ray 10/28/24 23:20 IMPRESSION: Findings concerning for vascular congestion. Reading Location: [facility] Physical Exam Const alert and no apparent distress HEENT head/scalp atraumatic and moist oral mucous membranes Resp normal respiratory effort and no retractions Resp Narrative: bilateral crackles. Cardio regular rate, regular rhythm and S1 normal heart sound GI normal to inspection, nondistended, normoactive bowel sounds, soft to palpation,non-tender and non-distended Neuro Sensorium / Orientation: awake and alert Assessment & Plan Assessment/Plan (1) Congestive heart failure: PLAN: Acute CHF exacerbation: Unclear type at this time. Patient's weight has gone up roughly 6 kg since August. Continue with IV furosemide. I did a bedside POCUS and was concerning for some LV hypokinesis but limited windows due to body habitus so we will check a formal echocardiogram. Fluid restrict, daily weights. I personally reviewed the patient's chest x-ray along with the family and reviewed POCUS findings with the patient and his family. Explained that despitehis temperatures I am not convinced that he has a pneumonia and will hold off onantibiotics at this time. Though if he does start manifesting symptoms and we can reconsider. In the meantime we will check a formal PA and lateral chest x-ray. PLAN: Plan Chronic conditions * Obesity class III with a BMI 52. Complicates care and recovery. * Atrial fibrillation: Status post pacemaker. On apixaban. * Depression: Continue duloxetine * BPH continue with tamsulosin and finasteride * Hypertension: Stable continue lisinopril * Hypothyroidism: Continue levothyroxine VTE prophylaxis: Not indicated as patient is already on anticoagulation. CODE STATUS: Addressed with the patient. Patient wishes to be full code. Charges/Coding Visit Charges Inpatient E&M: 37142 Subs Hosp L2 10/29/24 1223 Cosigner Signature (if applicable): CC: ~ Signed [facility]05-08-2025 Radiology Diagnostic study note [facility] Imaging Services [address] [place] [address] Chest 1 View (Portable) MR#: [id number] Acct: [id number] Name: REGAN ARANGO Rep #: [id number] 8 : 1940 M 83 From: Pratima Vasques MD PCP: Dr. Jose Fam MD Status: ADM IN Study:Chest 1 View (Portable) Date of Exam: 10/28/24 Exam# [id number] Ordering Dr: Jessica Miller DO PROCEDURE: CHEST 1 VIEW (PORTABLE) 10/28/2024 REASON FOR EXAM: SOB TECHNIQUE: Frontal view of the chest. COMPARISON: 10/28/2024 FINDINGS: Hardware: Stable left-sided ICD. Heart: Heart size is mildly enlarged. Lungs: Bilateral interstitial thickening. No focal consolidation. No pneumothorax. No pleural effusion. Bones: Degenerative changes are identified within the thoracic spine. Other: RAD/Chest 1 View (Portable) IMPRESSION: Findings concerning for vascular congestion. Reading Location: [facility] CC: Dr. Jessica Penn DO; Dr. Jose Fam MD ~ Sterile Process Coordinator: Signed [facility]05-08-2025 History and physical note Author Jonh Shen [facility] Note Date/Time October 28, 2024 4:42pm [facility] Medical Records Department [address] [place] [address] H&P Exam - Hospitalist 10/28/24 1636 MR#: [id number] Acct: [id number] Name: REGAN ARANGO Rep #:[id number] 1 : 1940 83 From: Jonh Shen DO PCP: Dr. Jose Fam MD Status:ADM IN Location: [id number] HPI - General General Date of Admission: 10/28/24 Date of Service: 10/28/24 Chief Complaint: shortness of breath. HPI Narrative REGAN ARAGNO, is a 83 M who presents with shortness of breath. Patient was seen here in the emergency room on the seventh and diagnosed with a pneumonia was discharged with antibiotics. Patient only came back because you just continue to be short of breath. BNP was 1001 up to 1999 today. Diagnosed with CHF and received furosemide and the hospital service was contacted for admission. Patient at home has been having some low-grade temps up to about 102 Fahrenheit. He has been having audible wheezing. And he has noted that he has had increased lower extremity edema as well as weight gain recently. [facility] Medical History Easy bruising Shortness of breath on exertion History of irregular heartbeat History of pacemaker Sick sinus syndrome Bradycardia Paroxysmal atrial fibrillation Persistent atrial fibrillation Prostate disease Excessive bleeding Gastric reflux Neuropathy Mobitz (type) I (Wenckebach's) atrioventricular block Wears glasses Cancer Thyroid disease Arthritis Hx of bladder cancer Bladder disease Restless legs Back pain Injury of head and neck Syncope Difficulty swallowing Non-smoker TIA (transient ischemic attack) History of pain when walking History of edema History of stress test Cardiology follow-up encounter Esophageal dysphagia High cholesterol Hypertension Home Medications ?Medication ?Instructions ?Recorded ?Last Taken ?Type pravastatin 20 mg tablet 20 mg PO DAILY Cholesterol 1 07/09/14 10/27/24 History tamsulosin 0.4 mg capsule 0.4 mg PO DAILY Urine retent ion 05/09/15 10/27/24 History trazodone 50 mg tablet 50 mg PO QHS sleep 05/09/15 10/27/24 History cyanocobalamin (vitamin B-12) 1,000 mcg PO DAILY suppl ement 04/14/24 10/27/24 History 1,000 mcg tablet duloxetine 30 mg capsule,delayed 30 mg PO DAILY . 03/2410/27/24 History release finasteride 5 mg tablet 5 mg PO DAILY BPH 04/14/24 0 10/27/24 History gabapentin 600 mg tablet 1,800 mg PO Q12H neuropathy 04/14/24 10/27/24 History ihwcddlm-ev-scyrp 300 mcg-K 60 1 tab PO DAILY suppleme nt 04/14/24 10/27/24 History mcg-lycop 600 mcg-lutein 300 mcg tablet (Centrum Silver Men) potassium chloride 20 mEq 20 meq PO DAILY supplement 1 10/27/24 History tablet,extended release(part/cryst) vitamins A,C,G-pbua-zmatmp 2,148 1 tab PO BID suppleme nt 04/14/24 10/27/24 History mcg-113 mg-45 mg-17.4 mg tablet (Eye Multivitamin) zinc gluconate 50 mg tablet 50 mg PO DAILY supplement 06/08/24 10/27/24 History lisinopril 2.5 mg tablet 2.5 mg PO DAILY BP 06/14/24 10/25/24 History Held on 10/28/24. Instructions: MD Ordered apixaban 5 mg tablet (Eliquis) 5 mg PO BID #60 tabs 10/27/24 Rx albuterol sulfate 90 mcg/actuation 2 inh inhalation Q4 H PRN shortness 10/27/24 10/27/24 History aerosol inhaler of breath or wheezing amoxicillin 875 mg-potassium 1 tab PO BID #14 tabs 01/1410/28/24 Rx clavulanate 125 mg tablet benzonatate 200 mg capsule 200 mg PO TID PRN cough #20 caps 10/27/24 10/28/24 Rx levothyroxine 175 mcg tablet 175 mcg PO DAILY 10/27/24 10/28/24 History omeprazole 20 mg capsule,delayed 20 mg PO DAILY 10/27/24 History release Allergy/AdvReac Type Severity Reaction Status Date / Time oxybutynin (From Ditropan) Allergy Intermediate Nausea/Vom/ Verified 10/28/24 08:20 Diarrhea prednisone AdvReac Nausea Verified 10/28/24 08:20 Family History no significant family his no significant family history Surgical History History of surgical removal of pilonidal cyst History of permanent cardiac pacemaker placement Status post cardiac pacemaker procedure History of esophagogastroduodenoscopy (EGD) History of laparoscopic cholecystectomy Hx of colonoscopy Hx of repair of left rotator cuff Hx of repair of right rotator cuff Hx of microdiscectomy History of lumbar spinal fusion Social History household members: spouse housing: house Smoking Status: Never smoker alcohol intake: never substance use type: does not use ROS ROS Narrative All review of systems were negative except as mentioned above in the history of present illness and the other review of systems. Vital Signs Vital Signs Vital Signs: 10/28/24 08:14 10/28/24 08:20 10/28/24 08:46 Temperature 36.9 C 37.0 C Temperature Source Temporal Temporal Pulse Rate 62 62 Respiratory Rate 22 H 20 H Respiratory Effort Blood Pressure 152/80 H 150/82 H Blood Pressure Mean 104 104 Pulse Ox 93 92 Oxygen Delivery Method Room Air Nasal Cannula Nasal Cannula Oxygen Flow Rate (L/min) 2 2 Fraction of Inspired Oxygen (FIO2) 95 10/28/24 08:46 10/28/24 09:20 10/28/24 10:00 Temperature 37.0 C 37.1 C Temperature Source Oral Oral Pulse Rate 66 78 Respiratory Rate 20 H 20 H Respiratory Effort Blood Pressure 133/59 H 162/78 H 126/64 H Blood Pressure Mean 83 106 84 Pulse Ox 95 95 Oxygen Delivery Method Nasal Cannula Nasal Cannula Oxygen Flow Rate (L/min) 2 2 Fraction of Inspired Oxygen (FIO2) 10/28/24 11:00 10/28/24 12:00 10/28/24 12:00 Temperature 37.1 C 37.4 C H Temperature Source Oral Oral Pulse Rate 64 64 Respiratory Rate 16 28 H Respiratory Effort Blood Pressure 124/78 H 176/98 H 176/98 H Blood Pressure Mean 93 124 124 Pulse Ox 95 94 Oxygen Delivery Method Nasal Cannula Nasal Cannula Oxygen Flow Rate (L/min) 3 2 Fraction of Inspired Oxygen (FIO2) 10/28/24 12:59 10/28/24 12:59 10/28/24 13:00 Temperature 37.4 C H 37.4 C H Temperature Source Oral Pulse Rate 62 62 Respiratory Rate 22 H 22 H Respiratory Effort Short of Breath Blood Pressure 139/103 H 139/103 H Blood Pressure Mean 115 115 Pulse Ox 95 95 Oxygen Delivery Method Nasal Cannula Nasal Cannula Oxygen Flow Rate (L/min) 2 2 Fraction of Inspired Oxygen (FIO2) 10/28/24 13:00 10/28/24 13:13 10/28/24 14:20 Temperature 36.9 C 36.8 C Temperature Source Oral Oral Pulse Rate 58 L Respiratory Rate 18 Respiratory Effort Blood Pressure 139/103 H 153/74 H Blood Pressure Mean 115 100 Pulse Ox 91 Oxygen Delivery Method Nasal Cannula Oxygen Flow Rate (L/min) 2 Fraction of Inspired Oxygen (FIO2) Weight Weight: 169.2 kg Body Mass Index (BMI) 52.0 Physical Exam Narrative POCUS: Indication is for heart failure: Evaluate heart very difficult to get windows given his body habitus. The subxiphoid view showed some maybe some mildLV hypokinesis. Parasternal long axis again possible LV hypokinesis. No pericardial effusion identified. And apical view was limited due to lung tissue. And on pulmonary evaluation in the anterior and lateral windows showed numerous B-lines throughout. Unable to appreciate the IVC on this exam due to body habitus. Const alert and no apparent distress General Appearance: cooperative HEENT normocephalic and head/scalp atraumatic Resp normal respiratory effort and no retractions Resp Narrative: Bilateral upper respiratory wheezes Cardio regular rate, regular rhythm, S1 normal heart sound and S2 normal heart sound GI normal to inspection, nondistended, normoactive bowel sounds, soft to palpation,non-tender and non-distended Extremity Extremity Narrative: Bilateral lower extremity edema, nonpitting. Skin Skin Narrative: No rashes or lesions Neuro moves all extremities Sensorium / Orientation: awake, alert, oriented to person, oriented to place andoriented to time Psych affect normal Results Lab / Micro Data 10/28/24 08:00 10/28/24 08:00 Labs: Laboratory Results - last 24 hr 10/28/24 08:00: WBC 9.1, RBC 4.92, Hgb 13.8, Hct 43.0, MCV 87.4, MCH 28.0, MCHC 32.1, RDW Std Deviation 57.6 H, RDW Coeff of Alessandra 18.2 H, Plt Count 136 L, MPV 10.7, Immature Gran % (Auto) 0.700, Neut % (Auto) 92.0 H, Lymph % (Auto) 2.2 L, Muh[place] % (Auto) 4.3, Eos % (Auto) 0.2, Baso % (Auto) 0.6, Absolute Neuts (auto) 8.4 H, Absolute Lymphs (auto) 0.20 L, Nucleated RBC % 0, Sodium 140, Potassium 4.1, Chloride 102, Carbon Dioxide 26.5, Anion Gap 12, BUN 23 H, Creatinine 1.07,Estim Creat Clear Calc 70.96, Est GFR (MDRD) Non-Af 68, BUN/Creatinine Ratio 21.4 H, Glucose 148 H, Calcium 9.0, NT pro BNP II 2134 H Micro: Microbiology 10/28/24 09:30 Mucosa - Nose SARS-CoV-2, Influenza & RSV (PCR) - Final Assessment & Plan Assessment/Plan (1) Congestive heart failure: PLAN: Acute CHF exacerbation: Unclear type at this time. Patient's weight has gone up roughly 6 kg since August. Continue with IV furosemide. I did a bedside POCUS and was concerning for some LV hypokinesis but limited windows due to body habitus so we will check a formal echocardiogram. Fluid restrict, daily weights. I personally reviewed the patient's chest x-ray along with the family and reviewed POCUS findings with the patient and his family. Explained that despitehis temperatures I am not convinced that he has a pneumonia and will hold off onantibiotics at this time. Though if he does start manifesting symptoms and we can reconsider. In the meantime we will check a formal PA and lateral chest x-ray. PLAN: Plan Chronic conditions * Obesity class III with a BMI 52. Complicates care and recovery. * Atrial fibrillation: Status post pacemaker. On apixaban. * Depression: Continue duloxetine * BPH continue with tamsulosin and finasteride * Hypertension: Stable continue lisinopril * Hypothyroidism: Continue levothyroxine VTE prophylaxis: Not indicated as patient is already on anticoagulation. CODE STATUS: Addressed with the patient. Patient wishes to be full code. Charges/Coding Visit Charges Inpatient E&M: 15078 Init Hosp L3 10/28/24 1642 <Electronically signed by Jonh Shen DO> Cosigner Signature (if applicable): CC: Dr. Jonh Shen DO; Dr. Jose Fam MD~ Signed [facility] Work Phone: 1(434) 973-650005-08-2025 Radiology Diagnostic study note [facility] Imaging Services [address] [place], [place] [address] Chest PA and Lateral MR#: [id number] Acct: [id number] Name: REGAN ARANGO Rep #: [id number] 3 : 1940 M 83 From: Pratima Vasques MD PCP: Dr. Jose Fam MD Status: ADM IN Study:Chest PA and Lateral Date of Exam: 10/28/24 Exam# [id number] Ordering Dr: Jonh Shen DO PROCEDURE: CHEST PA AND LATERAL 10/28/2024 REASON FOR EXAM: DYSPNEA TECHNIQUE: Frontal and lateral views of the chest. COMPARISON: Chest radiograph 10/27/2024 FINDINGS: Hardware: A cardiac pacemaker is present. Heart: Heart size is mildly enlarged. Mediastinum: The mediastinal contour is unremarkable. Lungs: Bibasilar atelectasis. No focal consolidation. No pneumothorax. No pleural effusion. Bones: Degenerative changes are identified within the thoracic spine. RAD/Chest PA and Lateral IMPRESSION: NO ACUTE FINDINGS. Reading Location: [facility] CC: Dr. Jonh Shen DO; Dr. Jose Fam MD ~ Sterile Process Coordinator: Signed [facility]05-08-2025 History and physical note [facility] Medical Records Department [address] [place] [address] H&P Exam - Hospitalist 10/28/24 1636 MR#: [id number] Acct: [id number] Name: REGAN ARANGO Rep #:[id number] 1 : 1940 83 From: Jonh Shen DO PCP: Dr. Jose Fam MD Status:ADM IN Location: [id number]- 1 [facility] - General General Date of Admission: 10/28/24 Date of Service: 10/28/24 Chief Complaint: shortness of breath. HPI Narrative REGAN ARANGO, is a 83 M who presents with shortness of breath. Patient was seen here in the emergency room on the seventh and diagnosed with a pneumonia was discharged with antibiotics. Patient only came back because you just continue to be short of breath. BNP was 1001 up to 2000 today. Diagnosed with CHF and received furosemide and the hospital service was contacted for admission. Patient at home has been having some low-grade temps up to about 102 Fahrenheit. He has been having audible wheezing. And he has noted that he has had increased lower extremity edema as well as weight gain recently. [facility] Medical History Easy bruising Shortness of breath on exertion History of irregular heartbeat History of pacemaker Sick sinus syndrome Bradycardia Paroxysmal atrial fibrillation Persistent atrial fibrillation Prostate disease Excessive bleeding Gastric reflux Neuropathy Mobitz (type) I (Wenckebach's) atrioventricular block Wears glasses Cancer Thyroid disease Arthritis Hx of bladder cancer Bladder disease Restless legs Back pain Injury of head and neck Syncope Difficulty swallowing Non-smoker TIA (transient ischemic attack) History of pain when walking History of edema History of stress test Cardiology follow-up encounter Esophageal dysphagia High cholesterol Hypertension Home Medications ?Medication ?Instructions ?Recorded ?Last Taken ?Type pravastatin 20 mg tablet 20 mg PO DAILY Cholesterol 1 07/09/14 10/27/24 History tamsulosin 0.4 mg capsule 0.4 mg PO DAILY Urine retent ion 05/09/15 10/27/24 History trazodone 50 mg tablet 50 mg PO QHS sleep 05/09/15 10/27/24 History cyanocobalamin (vitamin B-12) 1,000 mcg PO DAILY suppl ement 04/14/24 10/27/24 History 1,000 mcg tablet duloxetine 30 mg capsule,delayed 30 mg PO DAILY . 03/2410/27/24 History release finasteride 5 mg tablet 5 mg PO DAILY BPH 04/14/24 0 10/27/24 History gabapentin 600 mg tablet 1,800 mg PO Q12H neuropathy 04/14/24 10/27/24 History eqnbutkh-hb-bhbfh 300 mcg-K 60 1 tab PO DAILY suppleme nt 04/14/24 10/27/24 History mcg-lycop 600 mcg-lutein 300 mcg tablet (Centrum Silver Men) potassium chloride 20 mEq 20 meq PO DAILY supplement 1 10/27/24 History tablet,extended release(part/cryst) vitamins A,C,N-pwwf-fasgve 2,148 1 tab PO BID suppleme nt 04/14/24 10/27/24 History mcg-113 mg-45 mg-17.4 mg tablet (Eye Multivitamin) zinc gluconate 50 mg tablet 50 mg PO DAILY supplement 06/08/24 10/27/24 History lisinopril 2.5 mg tablet 2.5 mg PO DAILY BP 06/14/24 10/25/24 History Held on 10/28/24. Instructions: MD Ordered apixaban 5 mg tablet (Eliquis) 5 mg PO BID #60 tabs 10/27/24 Rx albuterol sulfate 90 mcg/actuation 2 inh inhalation Q4 H PRN shortness 10/27/24 10/27/24 History aerosol inhaler of breath or wheezing amoxicillin 875 mg-potassium 1 tab PO BID #14 tabs 01/1410/28/24 Rx clavulanate 125 mg tablet benzonatate 200 mg capsule 200 mg PO TID PRN cough #20 caps 10/27/24 10/28/24 Rx levothyroxine 175 mcg tablet 175 mcg PO DAILY 10/27/24 10/28/24 History omeprazole 20 mg capsule,delayed 20 mg PO DAILY 10/27/24 History release Allergy/AdvReac Type Severity Reaction Status Date / Time oxybutynin (From Ditropan) Allergy Intermediate Nausea/Vom/ Verified 10/28/24 08:20 Diarrhea prednisone AdvReac Nausea Verified 10/28/24 08:20 Family History no significant family his no significant family history Surgical History History of surgical removal of pilonidal cyst History of permanent cardiac pacemaker placement Status post cardiac pacemaker procedure History of esophagogastroduodenoscopy (EGD) History of laparoscopic cholecystectomy Hx of colonoscopy Hx of repair of left rotator cuff Hx of repair of right rotator cuff Hx of microdiscectomy History of lumbar spinal fusion Social History household members: spouse housing: house Smoking Status: Never smoker alcohol intake: never substance use type: does not use ROS ROS Narrative All review of systems were negative except as mentioned above in the history of present illness andthe other review of systems. Vital Signs Vital Signs Vital Signs: 10/28/24 08:14 10/28/24 08:20 10/28/24 08:46 Temperature 36.9 C 37.0 C Temperature Source Temporal Temporal Pulse Rate 62 62 Respiratory Rate 22 H 20 H Respiratory Effort Blood Pressure 152/80 H 150/82 H Blood Pressure Mean 104 104 Pulse Ox 93 92 Oxygen Delivery Method Room Air Nasal Cannula Nasal Cannula Oxygen Flow Rate (L/min) 2 2 Fraction of Inspired Oxygen (FIO2) 95 10/28/24 08:46 10/28/24 09:20 10/28/24 10:00 Temperature 37.0 C 37.1 C Temperature Source Oral Oral Pulse Rate 66 78 Respiratory Rate 20 H 20 H Respiratory Effort Blood Pressure 133/59 H 162/78 H 126/64 H Blood Pressure Mean 83 106 84 Pulse Ox 95 95 Oxygen Delivery Method Nasal Cannula Nasal Cannula Oxygen Flow Rate (L/min) 2 2 Fraction of Inspired Oxygen (FIO2) 10/28/24 11:00 10/28/24 12:00 10/28/24 12:00 Temperature 37.1 C 37.4 C H Temperature Source Oral Oral Pulse Rate 64 64 Respiratory Rate 16 28 H Respiratory Effort Blood Pressure 124/78 H 176/98 H 176/98 H Blood Pressure Mean 93 124 124 Pulse Ox 95 94 Oxygen Delivery Method Nasal Cannula Nasal Cannula Oxygen Flow Rate (L/min) 3 2 Fraction of Inspired Oxygen (FIO2) 10/28/24 12:59 10/28/24 12:59 10/28/24 13:00 Temperature 37.4 C H 37.4 C H Temperature Source Oral Pulse Rate 62 62 Respiratory Rate 22 H 22 H Respiratory Effort Short of Breath Blood Pressure 139/103 H 139/103 H Blood Pressure Mean 115 115 Pulse Ox 95 95 Oxygen Delivery Method Nasal Cannula Nasal Cannula Oxygen Flow Rate (L/min) 2 2 Fraction of Inspired Oxygen (FIO2) 10/28/24 13:00 10/28/24 13:13 10/28/24 14:20 Temperature 36.9 C 36.8 C Temperature Source Oral Oral Pulse Rate 58 L Respiratory Rate 18 Respiratory Effort Blood Pressure 139/103 H 153/74 H Blood Pressure Mean 115 100 Pulse Ox 91 Oxygen Delivery Method Nasal Cannula Oxygen Flow Rate (L/min) 2 Fraction of Inspired Oxygen (FIO2) Weight Weight: 169.2 kg Body Mass Index (BMI) 52.0 Physical Exam Narrative POCUS: Indication is for heart failure: Evaluate heart very difficult to get windows given his bodyhabitus. The subxiphoid view showed some maybe some mildLV hypokinesis. Parasternal long axis againpossible LV hypokinesis. No pericardial effusion identified. And apical view was limited due to lung tissue. And on pulmonary evaluation in the anterior and lateral windows showed numerous B-lines throughout. Unable to appreciate the IVC on this exam due to body habitus. Const alert and no apparent distress General Appearance: cooperative HEENT normocephalic and head/scalp atraumatic Resp normal respiratory effort and no retractions Resp Narrative: Bilateral upper respiratory wheezes Cardio regular rate, regular rhythm, S1 normal heart sound and S2 normal heart sound GI normal to inspection, nondistended, normoactive bowel sounds, soft to palpation,non-tender and non-distended Extremity Extremity Narrative: Bilateral lower extremity edema, nonpitting. Skin Skin Narrative: No rashes or lesions Neuro moves all extremities Sensorium / Orientation: awake, alert, oriented to person, oriented to place andoriented to time Psych affect normal Results Lab / Micro Data 10/28/24 08:00 10/28/24 08:00 Labs: Laboratory Results - last 24 hr 10/28/24 08:00: WBC 9.1, RBC 4.92, Hgb 13.8, Hct 43.0, MCV 87.4, MCH 28.0, MCHC 32.1, RDW Std Deviation 57.6 H, RDW Coeff of Alessandra 18.2 H, Plt Count 136 L, MPV 10.7, Immature Gran % (Auto) 0.700, Neut % (Auto) 92.0 H, Lymph % (Auto) 2.2 L, [place] % (Auto) 4.3, Eos % (Auto) 0.2, Baso % (Auto) 0.6, Absolute Neuts (auto) 8.4 H, Absolute Lymphs (auto) 0.20 L, Nucleated RBC % 0, Sodium 140, Potassium 4.1,Chloride 102, Carbon Dioxide 26.5, Anion Gap 12, BUN 23 H, Creatinine 1.07,Estim Creat Clear Calc 70.96, Est GFR (MDRD) Non-Af 68, BUN/Creatinine Ratio 21.4 H, Glucose 148 H, Calcium 9.0, NT pro BNP II 2134 H Micro: Microbiology 10/28/24 09:30 Mucosa - Nose SARS-CoV-2, Influenza & RSV (PCR) - Final Assessment & Plan Assessment/Plan (1) Congestive heart failure: PLAN: Acute CHF exacerbation: Unclear type at this time. Patient's weight has gone up roughly 6 kg since August. Continue with IV furosemide. I did a bedside POCUS and was concerning for some LV hypokinesis but limited windows due to body habitus so we will check a formal echocardiogram. Fluid restrict, daily weights. I personally reviewed the patient's chest x-ray along with the family and reviewed POCUS findings with the patient and his family. Explained that despitehis temperatures I am not convinced that he has a pneumonia and will hold off onantibiotics at this time. Though if he does start manifesting symptoms and we can reconsider. In the meantime we will check a formal PA and lateral chest x-ray. PLAN: Plan Chronic conditions * Obesity class III with a BMI 52. Complicates care and recovery. * Atrial fibrillation: Status post pacemaker. On apixaban. * Depression: Continue duloxetine * BPH continue with tamsulosin and finasteride * Hypertension: Stable continue lisinopril * Hypothyroidism: Continue levothyroxine VTE prophylaxis: Not indicated as patient is already on anticoagulation. CODE STATUS: Addressed with the patient. Patient wishes to be full code. Charges/Coding Visit Charges Inpatient E&M: 87371 Init Hosp 10/28/24 1642 Cosigner Signature (if applicable): CC: Dr. Jonh Shen DO; Dr. Jose Fam MD~ Signed [facility]05-08-2025 Discharge summary Author [facility] Note Date/Time October 28, 2024 10:44a [facility] Medical Records Department [address] [place] [address] Emergency Department Summary 10/28/24 MR#: [id number] Acct: [id number] Name: REGAN ARANGO Rep #:[id number] : 1940 83 From: Albert Swan MD PCP: Dr. Jose Fam MD Status:REG ER Location: ED HPI History of Present Illness Chief Complaint: Shortness of Breath Narrative Narrative: 83-year-old male presents with his because of increasing shortness of breath and dyspnea. He has past medical history of atrial fibrillation, anticoagulated on Eliquis, hypertension, was seen in the emergency department yesterday and diagnosed with pneumonia although his reports that his chest x-ray was clear. He has taken a total of 3 doses of antibiotics. Throughout the night, he has been increasingly more short of breath. His became concerned when he requested that she open a window because he could not catch his breath. Although they deny history of heart failure, he takes furosemide. He has had swelling of his bilateral lower extremities chronically. He presentsto the emergency department via EMS with increased difficulty breathing. [facility] Medical History Easy bruising Shortness of breath on exertion History of irregular heartbeat History of pacemaker Sick sinus syndrome Bradycardia Paroxysmal atrial fibrillation Persistent atrial fibrillation Prostate disease Excessive bleeding Gastric reflux Neuropathy Mobitz (type) I (Wenckebach's) atrioventricular block Wears glasses Cancer Thyroid disease Arthritis Hx of bladder cancer Bladder disease Restless legs Back pain Injury of head and neck Syncope Difficulty swallowing Non-smoker TIA (transient ischemic attack) History of pain when walking History of edema History of stress test Cardiology follow-up encounter Esophageal dysphagia High cholesterol Hypertension Home Medications ?Medication ?Instructions ?Recorded ?Last Taken ?Type pravastatin 20 mg tablet 20 mg PO DAILY Cholesterol 1 07/09/14 10/27/24 History tamsulosin 0.4 mg capsule 0.4 mg PO DAILY Urine retent ion 05/09/15 10/27/24 History trazodone 50 mg tablet 50 mg PO QHS sleep 05/09/15 10/27/24 History cyanocobalamin (vitamin B-12) 1,000 mcg PO DAILY suppl ement 04/14/24 10/27/24 History 1,000 mcg tablet duloxetine 30 mg capsule,delayed 30 mg PO DAILY . 03/2410/27/24 History release finasteride 5 mg tablet 5 mg PO DAILY BPH 04/14/24 0 10/27/24 History gabapentin 600 mg tablet 1,800 mg PO Q12H neuropathy 04/14/24 10/27/24 History wwtszwqg-ur-wbbxd 300 mcg-K 60 1 tab PO DAILY suppleme nt 04/14/24 10/27/24 History mcg-lycop 600 mcg-lutein 300 mcg tablet (Centrum Silver Men) potassium chloride 20 mEq 20 meq PO DAILY supplement 1 10/27/24 History tablet,extended release(part/cryst) vitamins A,C,F-nhpc-neivkl 2,148 1 tab PO BID suppleme nt 04/14/24 10/27/24 History mcg-113 mg-45 mg-17.4 mg tablet (Eye Multivitamin) zinc gluconate 50 mg tablet 50 mg PO DAILY supplement 06/08/24 10/27/24 History lisinopril 2.5 mg tablet 2.5 mg PO DAILY BP 06/14/24 10/25/24 History Held on 10/28/24. Instructions: MD Ordered apixaban 5 mg tablet (Eliquis) 5 mg PO BID #60 tabs 10/27/24 Rx albuterol sulfate 90 mcg/actuation 2 inh inhalation Q4 H PRN shortness 10/27/24 10/27/24 History aerosol inhaler of breath or wheezing amoxicillin 875 mg-potassium 1 tab PO BID #14 tabs 01/1410/28/24 Rx clavulanate 125 mg tablet benzonatate 200 mg capsule 200 mg PO TID PRN cough #20 caps 10/27/24 10/28/24 Rx levothyroxine 175 mcg tablet 175 mcg PO DAILY 10/27/24 10/28/24 History omeprazole 20 mg capsule,delayed 20 mg PO DAILY 10/27/24 History release Allergy/AdvReac Type Severity Reaction Status Date / Time oxybutynin (From Ditropan) Allergy Intermediate Nausea/Vom/ Verified 10/28/24 08:20 Diarrhea prednisone AdvReac Nausea Verified 10/28/24 08:20 Surgical History History of surgical removal of pilonidal cyst History of permanent cardiac pacemaker placement Status post cardiac pacemaker procedure History of esophagogastroduodenoscopy (EGD) History of laparoscopic cholecystectomy Hx of colonoscopy Hx of repair of left rotator cuff Hx of repair of right rotator cuff Hx of microdiscectomy History of lumbar spinal fusion Social History household members: spouse housing: house Smoking Status: Never smoker alcohol intake: never substance use type: does not use ROS ROS ED ROS Narrative Review of systems positive for dyspnea on exertion, shortness of breath at rest,no chest pain. He did have a fever last evening according to his both yesterday and this morning/throughout the night. Positive pedal edema. EXAM Physical Exam Narrative Exam Narrative: Afebrile. Vital signs noted. Nontoxic-appearing. Cardiovascular examination feels a regular rhythm with regular rate in the 60s. He has diffuse bilateral wheezing. Moving a fair amount of air. No retractions. Abdomen soft nontenderwithout guarding or rebound. Neurological examination nonfocal, nonlateralizing. Positive +1 pedal edema, pitting, equal and symmetric. Const Vital Signs: 10/28/24 08:14 10/28/24 08:20 10/28/24 08:46 Temperature 98.4 F 98.6 F Temperature Source Temporal Temporal Pulse Rate 62 62 Respiratory Rate 22 H 20 H Blood Pressure 152/80 H 150/82 H Blood Pressure Mean 104 104 Pulse Ox 93 92 Oxygen Delivery Method Room Air Nasal Cannula Nasal Cannula Oxygen Flow Rate (L/min) 2 2 Fraction of Inspired Oxygen (FIO2) 95 10/28/24 08:46 10/28/24 09:20 10/28/24 10:00 Temperature 98.6 F 98.7 F Temperature Source Oral Oral Pulse Rate 66 78 Respiratory Rate 20 H 20 H Blood Pressure 133/59 H 162/78 H 126/64 H Blood Pressure Mean 83 106 84 Pulse Ox 95 95 Oxygen Delivery Method Nasal Cannula Nasal Cannula Oxygen Flow Rate (L/min) 2 2 Fraction of Inspired Oxygen (FIO2) MDM MDM MDM Narrative Medical decision making narrative: The differential diagnosis includes but not limited to pneumonia versus CHF versus bronchitis. I reviewed his workup from yesterday. He had a chest x-ray that was clear. I do not feel he needs repeat chest x-ray. He is borderline hypoxic with a pulse ox of 92% on room air and he was placed on nasal cannula oxygen. He will be administered Lasix. He had a BNP which was yesterday. I considered scanning him for pulmonary embolism, however he is already anticoagulated with Eliquis. EKG was obtained and interpreted by myself independently as atrial fibrillation with frequent PVCs at [address] changes. No STEMI. I reviewed his laboratory work from today and he has normal white count of 9.1 with hemoglobin 13.8, platelet count low at 136, no significant change from yesterday's labs when he was thrombocytopenic. Glucose elevated at 148 with anion gap normal at 12 with BUN of 23 and creatinine 1.07. Of significance, BNPis elevated at 2134, up from 1061. Patient had been given Lasix 40 mg intravenously. While I do not feel chest x-ray is indicated, I did obtain a respiratory swab and he is negative for COVID, influenza, and RSV. At this point in time, I do feel that he is probably more fluid overloaded and given theincrease in his BNP as well as tachypnea at rest with borderline hypoxia, I willdiscuss the patient with the hospitalist at least for observation. Patient and agreeable to the plan. I discussed the patient with Dr. Jonh Shen who will admit the patient to the PCU. Disposition is admit in stable condition. History & Record Review Discussion w/independent historian: Patient and Family Additional record(s) reviewed:: Prior ED visit, Prior labs and Other (Last echocardiogram 2021 with EF of 65% ?5%) Lab Data Attestation: I reviewed the patient's lab results. Labs: Laboratory Results - last 24 hr 10/28/24 08:00 WBC 9.1 RBC 4.92 Hgb 13.8 Hct 43.0 MCV 87.4 MCH 28.0 MCHC 32.1 RDW Std Deviation 57.6 H RDW Coeff of Alessandra 18.2 H Plt Count 136 L MPV 10.7 Immature Gran % (Auto) 0.700 Neut % (Auto) 92.0 H Lymph % (Auto) 2.2 L Muh[place] % (Auto) 4.3 Eos % (Auto) 0.2 Baso % (Auto) 0.6 Absolute Neuts (auto) 8.4 H Absolute Lymphs (auto) 0.20 L Nucleated RBC % 0 Sodium 140 Potassium 4.1 Chloride 102 Carbon Dioxide 26.5 Anion Gap 12 BUN 23 H Creatinine 1.07 Estim Creat Clear Calc 70.96 Est GFR (MDRD) Non-Af 68 BUN/Creatinine Ratio 21.4 H Glucose 148 H Calcium 9.0 NT pro BNP II 2134 H Management Discussion w/another healthcare provider: Hospitalist Discharge Plan Dx/Rx/DC Orders Clinical Impression: Congestive heart failure, Atrial flutter, Essential (primary) hypertension, SOB(shortness of breath) Disposition Disposition: Acute Care Hospital [facility] What to do if you have Problems For any increased pain, shortness of breath, bleeding, nausea or vomiting, chestpain, or any unexpected problems, contact your Primary Care Provider. Call [facility] ([phone]) or report to the closest Emergency Room. Call 911 if necessary. 10/28/24 1044 <Electronically signed by Albert Swan MD> Heber Signature (if applicable): CC: Dr. Jose Fam MD ~ Signed [facility] Work Phone: [phone]) 388-467705-08-2025 [facility] History of Present illness Narrative* Yovana Huff - 10/28/2024 11:40 AM EDT POPULATION HEALTH NAVIGATION OUTREACH Action/FYI Spoke with spouse. Currently in the ED. Is pending admission to [facility] for heart related issues as well SOB and pneumonia Spouse wanted you to be aware Reason for Outreach Community Monitoring/Network Navigator P[employer] & Phone Line: CM Pool Care Gaps due: Follow-up Appointment Patient Contacted: Spoke to patient/parent/or legal guardian Patient identified by name and : Yes Community Monitoring/Network Nav[employer] Phone Line actions taken: No action needed Navigation Signature: Yovana Huff Population Health Navigshari October 28, 2024 11:40 AM * Royce Rodriguez RN - 10/28/2024 10:54 AM EDT ACM YOVANA RN Patient identified by name and date of . Reason for review or outreach: Chart Review Yovana Priority Emergency Department Utilization REQUESTED ACTION/FYI: Please see ED Utilization summary below A follow-up appointment is noted to be scheduled on 12/08/2024. We are forwarding this patient to [facility] [employer] to schedule a sooner 10/27/2024 [facility] PCP follow-up appointment. Royce Rodriguez RN Utilization in past 12 months # Occurrences Date Last Occurrence Hospital Admission 5 07/27/2024 Hospital Observation 0 0 ED 5 10/27/2024 SNF / Acute Rehab / LTAC 0 0 ED DIAGNOSES/REASON(S) FOR ED USE: ED and admissions for breathing issues, most recent is 10/27/2024 at [facility] for SOB. OTHER FINDINGS/SUMMARY: Labs, abx prophylactically prescribed, chest xray, Patient Attributed To: PARMINDEREvan Payer: Lacy LATIF Action Taken: Referrals/Routed: Population Health Navigation: Appointment. Router to [facility] [[phone]] Contact made with patient: No, Chart review only. Signature: Royce Rodriguez RN [facility] History of Present illness Narrative* Taz Marie LPN - 10/28/2024 11:26 AM EDT Scan on 10/28/2024 10:53 AM by ProviderTerrance PA-C: Consultation - Emergency Medicine Scan on 10/27/2024 4:05 PM by ProviderTerrance PA-C: Consultation - Emergency Medicine [facility] Discharge summary [facility] Medical Records Department [address] [place] [address] Emergency Department Summary 10/28/24 MR#: [id number] Acct: [id number] Name: REGAN ARANGO Rep #:[id number] : 1940 83 From: Albert Swan MD PCP: Dr. Jose Fam MD Status:REG ER Location: ED HPI History of Present Illness Chief Complaint: Shortness of Breath Narrative Narrative: 83-year-old male presents with his because of increasing shortness of breath and dyspnea. He has past medical history of atrial fibrillation, anticoagulated on Eliquis, hypertension, was seen inthe emergency department yesterday and diagnosed with pneumonia although his reports that his chest x-ray was clear. He has taken a total of 3 doses of antibiotics. Throughout the night, he has been increasingly more short of breath. His became concerned when he requested that she open a window because he could not catch his breath. Although they deny history of heart failure, he takes furosemide. He has had swelling of his bilateral lower extremities chronically. [facility] with increased difficulty breathing. [facility] Medical History Easy bruising Shortness of breath on exertion History of irregular heartbeat History of pacemaker Sick sinus syndrome Bradycardia Paroxysmal atrial fibrillation Persistent atrial fibrillation Prostate disease Excessive bleeding Gastric reflux Neuropathy Mobitz (type) I (Wenckebach's) atrioventricular block Wears glasses Cancer Thyroid disease Arthritis Hx of bladder cancer Bladder disease Restless legs Back pain Injury of head and neck Syncope Difficulty swallowing Non-smoker TIA (transient ischemic attack) History of pain when walking History of edema History of stress test Cardiology follow-up encounter Esophageal dysphagia High cholesterol Hypertension Home Medications ?Medication ?Instructions ?Recorded ?Last Taken ?Type pravastatin 20 mg tablet 20 mg PO DAILY Cholesterol 1 07/09/14 10/27/24 History tamsulosin 0.4 mg capsule 0.4 mg PO DAILY Urine retent ion 05/09/15 10/27/24 History trazodone 50 mg tablet 50 mg PO QHS sleep 05/09/15 10/27/24 History cyanocobalamin (vitamin B-12) 1,000 mcg PO DAILY suppl ement 04/14/24 10/27/24 History 1,000 mcg tablet duloxetine 30 mg capsule,delayed 30 mg PO DAILY . 03/2410/27/24 History release finasteride 5 mg tablet 5 mg PO DAILY BPH 04/14/24 0 10/27/24 History gabapentin 600 mg tablet 1,800 mg PO Q12H neuropathy 04/14/24 10/27/24 History oxuajuye-hi-ayuxv 300 mcg-K 60 1 tab PO DAILY suppleme nt 04/14/24 10/27/24 History mcg-lycop 600 mcg-lutein 300 mcg tablet (Centrum Silver Men) potassium chloride 20 mEq 20 meq PO DAILY supplement 1 10/27/24 History tablet,extended release(part/cryst) vitamins A,C,Z-aitj-blhirk 2,148 1 tab PO BID suppleme nt 04/14/24 10/27/24 History mcg-113 mg-45 mg-17.4 mg tablet (Eye Multivitamin) zinc gluconate 50 mg tablet 50 mg PO DAILY supplement 12/17/24 05/07/25 History lisinopril 2.5 mg tablet 2.5 mg PO DAILY BP 06/14/24 10/25/24 History Held on 10/28/24. Instructions: Ordered apixaban 5 mg tablet (Eliquis) 5 mg PO BID #60 tabs 10/27/24 Rx albuterol sulfate 90 mcg/actuation 2 inh inhalation Q4 H PRN shortness 10/27/24 10/27/24 History aerosol inhaler of breath or wheezing amoxicillin 875 mg-potassium 1 tab PO BID #14 tabs 01/1410/28/24 Rx clavulanate 125 mg tablet benzonatate 200 mg capsule 200 mg PO TID PRN cough #20 caps 10/27/24 10/28/24 Rx levothyroxine 175 mcg tablet 175 mcg PO DAILY 10/27/24 10/28/24 History omeprazole 20 mg capsule,delayed 20 mg PO DAILY 10/27/24 History release Allergy/AdvReac Type Severity Reaction Status Date / Time oxybutynin (From Ditropan) Allergy Intermediate Nausea/Vom/ Verified 10/28/24 08:20 Diarrhea prednisone AdvReac Nausea Verified 10/28/24 08:20 Surgical History History of surgical removal of pilonidal cyst History of permanent cardiac pacemaker placement Status post cardiac pacemaker procedure History of esophagogastroduodenoscopy (EGD) History of laparoscopic cholecystectomy Hx of colonoscopy Hx of repair of left rotator cuff Hx of repair of right rotator cuff Hx of microdiscectomy History of lumbar spinal fusion Social History household members: spouse housing: house Smoking Status: Never smoker alcohol intake: never substance use type: does not use ROS ROS ED ROS Narrative Review of systems positive for dyspnea on exertion, shortness of breath at rest,no chest pain. He did have a fever last evening according to his both yesterday and this morning/throughout the night. Positive pedal edema. EXAM Physical Exam Narrative Exam Narrative: Afebrile. Vital signs noted. Nontoxic-appearing. Cardiovascular examination feels a regular rhythm with regular rate in the 60s. He has diffuse bilateral wheezing. Moving a fair amount of air. No retractions. Abdomen soft nontenderwithout guarding or rebound. Neurological examination nonfocal, nonla teralizing. Positive +1 pedal edema, pitting, equal and symmetric. Const Vital Signs: 10/28/24 08:14 10/28/24 08:20 10/28/24 08:46 Temperature 98.4 F 98.6 F Temperature Source Temporal Temporal Pulse Rate 62 62 Respiratory Rate 22 H 20 H Blood Pressure 152/80 H 150/82 H Blood Pressure Mean 104 104 Pulse Ox 93 92 Oxygen Delivery Method Room Air Nasal Cannula Nasal Cannula Oxygen Flow Rate (L/min) 2 2 Fraction of Inspired Oxygen (FIO2) 95 10/28/24 08:46 10/28/24 09:20 10/28/24 10:00 Temperature 98.6 F 98.7 F Temperature Source Oral Oral Pulse Rate 66 78 Respiratory Rate 20 H 20 H Blood Pressure 133/59 H 162/78 H 126/64 H Blood Pressure Mean 83 106 84 Pulse Ox 95 95 Oxygen Delivery Method Nasal Cannula Nasal Cannula Oxygen Flow Rate (L/min) 2 2 Fraction of Inspired Oxygen (FIO2) MDM MDM MDM Narrative Medical decision making narrative: The differential diagnosis includes but not limited to pneumonia versus CHF versus bronchitis. I reviewed his workup from yesterday. He had a chest x-ray that was clear. I do not feel he needs repeatchest x-ray. He is borderline hypoxic with a pulse ox of 92% on room air and he was placed on nasalcannula oxygen. He will be administered Lasix. He had a BNP which was yesterday. I considered scanning him for pulmonary embolism, however he is already anticoagulated with Eliquis. EKG was obtained and interpreted by myself independently as atrial fibrillation with frequent PVCs at [address] changes. No STEMI. I reviewed his laboratory work from today and he has normal white count of 9.1 with hemoglobin 13.8, platelet count low at 136, no significant change from yesterday's labs when he was thrombocytopenic. Glucose elevated at 148 with anion gap normal at 12 with BUN of 23 and creatinine 1.07. Of significance, BNPis elevated at 2134, up from 1061. Patient had been given Lasix 40 mg intravenously. While I do not feel chest x-ray is indicated, I did obtain a respiratory swab and he is negative for COVID, influenza, and RSV. At this point in time, I do feel that he is probably more fluid overloaded and given theincrease in his BNP as well as tachypnea at rest with borderline hypoxia, I willdiscuss the patient with the hospitalist at least for observation. Patient and agreeable to the plan. Idiscussed the patient with Dr. Jonh Shen who will admit the patient to the PCU. Disposition is admit in stable condition. History & Record Review Discussion w/independent historian: Patient and Family Additional record(s) reviewed:: Prior ED visit, Prior labs and Other (Last echocardiogram 2021 withEF of 65% ?5%) Lab Data Attestation: I reviewed the patient's lab results. Labs: Laboratory Results - last 24 hr 10/28/24 08:00 WBC 9.1 RBC 4.92 Hgb 13.8 Hct 43.0 MCV 87.4 MCH 28.0 MCHC 32.1 RDW Std Deviation 57.6 H RDW Coeff of Alessandra 18.2 H Plt Count 136 L MPV 10.7 Immature Gran % (Auto) 0.700 Neut % (Auto) 92.0 H Lymph % (Auto) 2.2 L Muhlenberg % (Auto) 4.3 Eos % (Auto) 0.2 Baso % (Auto) 0.6 Absolute Neuts (auto) 8.4 H Absolute Lymphs (auto) 0.20 L Nucleated RBC % 0 Sodium 140 Potassium 4.1 Chloride 102 Carbon Dioxide 26.5 Anion Gap 12 BUN 23 H Creatinine 1.07 Estim Creat Clear Calc 70.96 Est GFR (MDRD) Non-Af 68 BUN/Creatinine Ratio 21.4 H Glucose 148 H Calcium 9.0 NT pro BNP II 2134 H Management Discussion w/another healthcare provider: Hospitalist Discharge Plan Dx/Rx/DC Orders Clinical Impression: Congestive heart failure, Atrial flutter, Essential (primary) hypertension, SOB(shortness of breath) Disposition Disposition: Acute Care Hospital [facility] What to do if you have Problems For any increased pain, shortness of breath, bleeding, nausea or vomiting, chestpain, or any unexpected problems, contact your Primary Care Provider. Call [facility] ([phone]) or report tothe closest Emergency Room. Call 911 if necessary. 10/28/24 1044 Cosigner Signature (if applicable): CC: Dr. Jose Fam MD ~ Signed [facility]05-07-2025 Discharge summary [facility] Medical Records Department [address] [place] [address] Emergency Department Summary 10/27/24 MR#: [id number] Acct: [id number] Name: REGAN ARANGO Rep #:[id number] 2 : 1940 83 From: Celina Zee PCP: Dr. Jose Fam MD Status:REG ER Location: ED HPI History of Present Illness Chief Complaint: Shortness of Breath Informant: patient and spouse/S.O. Narrative Narrative: Patient is an 83-year-old male with history of chronic atrial flutter on anticoagulation with Eliquis, hypertension, hyperlipidemia, BPH and hypothyroidism as well as neuropathy presenting for shortness of breath. Patient states he has had increased shortness of breath, dyspnea on exertion and wheez ing for the past 2 days. He notes his cough is productive of some white-yellow sputum. He denies associated chest pain or fevers. He states today he just felt like he was having a hard time breathingwhich is what prompted him tocome to the emergency room. He does note lately he has had lower bloodpressures and his PCP took him off of his lisinopril on Friday. He did have a chest x-ray which repo rtedly was clear. He went to urgent care yesterday for his symptoms and was given albuterol inhaler. He does not feel that it was overly helpful. He denies any associated nausea or vomiting. He denies any pain. He denies any URI symptoms. He notes he has chronic leg edema worse on the left but denies any acute change in this. Came in for further evaluation tosee why he is feeling this way with his breathing. Does not wear home O2. No other complaints or concerns at this time. Does note that he was admitted for pneumonia in March 2024. [facility] Medical History Easy bruising Shortness of breath on exertion History of irregular heartbeat History of pacemaker Sick sinus syndrome Bradycardia Paroxysmal atrial fibrillation Persistent atrial fibrillation Prostate disease Excessive bleeding Gastric reflux Neuropathy Mobitz (type) I (Wenckebach's) atrioventricular block Wears glasses Cancer Thyroid disease Arthritis Hx of bladder cancer Bladder disease Restless legs Back pain Injury of head and neck Syncope Difficulty swallowing Non-smoker TIA (transient ischemic attack) History of pain when walking History of edema History of stress test Cardiology follow-up encounter Esophageal dysphagia High cholesterol Hypertension Home Medications ?Medication ?Instructions ?Recorded ?Last Taken ?Type pravastatin 20 mg tablet 20 mg PO DAILY Cholesterol 1 07/09/14 10/26/24 History tamsulosin 0.4 mg capsule 0.4 mg PO DAILY Urine retent ion 05/09/15 10/26/24 History trazodone 50 mg tablet 50 mg PO QHS sleep 05/09/15 10/26/24 History cyanocobalamin (vitamin B-12) 1,000 mcg PO DAILY suppl ement 04/14/24 10/26/24 History 1,000 mcg tablet duloxetine 30 mg capsule,delayed 30 mg PO DAILY . 03/2410/26/24 History release finasteride 5 mg tablet 5 mg PO DAILY BPH 04/14/24 0 10/26/24 History gabapentin 600 mg tablet 1,800 mg PO Q12H neuropathy 04/14/24 10/26/24 History hqrtpwsy-vk-tiecq 300 mcg-K 60 1 tab PO DAILY suppleme nt 04/14/24 10/26/24 History mcg-lycop 600 mcg-lutein 300 mcg tablet (Centrum Silver Men) potassium chloride 20 mEq 20 meq PO DAILY supplement 1 10/26/24 History tablet,extended release(part/cryst) vitamins A,C,U-qrjo-hvnamu 2,148 1 tab PO BID suppleme nt 04/14/24 10/26/24 History mcg-113 mg-45 mg-17.4 mg tablet (Eye Multivitamin) zinc gluconate 50 mg tablet 50 mg PO DAILY supplement 06/08/24 10/26/24 History lisinopril 2.5 mg tablet 2.5 mg PO DAILY BP 06/14/24 10/25/24 History Held on 10/27/24. Instructions: Ordered apixaban 5 mg tablet (Eliquis) 5 mg PO BID #60 tabs 10/26/24 Rx albuterol sulfate 90 mcg/actuation 2 inh inhalation Q4 H PRN shortness 10/27/24 10/27/24 History aerosol inhaler of breath or wheezing amoxicillin 875 mg-potassium 1 tab PO BID #14 tabs 01/14 Unknown Rx clavulanate 125 mg tablet benzonatate 200 mg capsule 200 mg PO TID PRN cough #20 caps 10/27/24 Unknown Rx levothyroxine 175 mcg tablet 175 mcg PO DAILY 10/27/24 10/26/24 History omeprazole 20 mg capsule,delayed 20 mg PO DAILY 10/26/24 History release Allergy/AdvReac Type Severity Reaction Status Date / Time oxybutynin (From Ditropan) Allergy Intermediate Nausea/Vom/ Verified 10/27/24 09:39 Diarrhea prednisone AdvReac Nausea Verified 10/27/24 09:39 Surgical History History of surgical removal of pilonidal cyst History of permanent cardiac pacemaker placement Status post cardiac pacemaker procedure History of esophagogastroduodenoscopy (EGD) History of laparoscopic cholecystectomy Hx of colonoscopy Hx of repair of left rotator cuff Hx of repair of right rotator cuff Hx of microdiscectomy History of lumbar spinal fusion Social History household members: spouse Smoking Status: Never smoker alcohol intake: never substance use type: does not use ROS ROS ED Constitutional Constitutional ED: Denies chills or fever(s) ENT ENT ED: Denies rhinorrhea or sore throat Cardiovascular Cardiovascular: Denies chest pain or palpitations Respiratory/Chest Respiratory/Chest: Reports cough, dyspnea, dyspnea on exertion and sputum Gastrointestinal Gastrointestinal: Denies abdominal pain, diarrhea, melena, nausea or vomiting Genitourinary Genitourinary ED: Denies dysuria or urinary frequency Musculoskeletal Musculoskeletal: Denies arthralgias or myalgias Integumentary Denies rash Neurologic Neurologic: Reports weakness; Denies paresthesias Hematologic/Lymphatic Hematologic/Lymphatic: Reports easy bleeding and easy bruising EXAM Physical Exam Const Vital Signs: 10/27/24 09:39 10/27/24 10:18 10/27/24 10:49 Temperature 99 F Temperature Source Oral Pulse Rate 58 L 94 Respiratory Rate 19 H 17 Respiratory Effort Normal Non-Labored Respiratory Pattern Normal Blood Pressure 130/60 H Blood Pressure Mean 83 Pulse Ox 92 Oxygen Delivery Method Room Air 10/27/24 11:41 10/27/24 12:23 10/27/24 13:32 Temperature 99 F 99.4 F H 99.4 F H Temperature Source Oral Oral Pulse Rate 60 63 63 Respiratory Rate 18 18 18 Respiratory Effort Respiratory Pattern Blood Pressure 129/70 H 137/57 H 137/57 H Blood Pressure Mean 89 83 83 Pulse Ox 93 95 95 Oxygen Delivery Method Room Air Room Air Positive well nourished and well developed General Appearance ED: well developed and NAD; Negative for pallor HEENT Reports TM's clear and moist mucous membranes HEENT Narrative: Normal oropharynx. Normal nares. Tympanic Membrane ED: Yes TM's clear Eyes PERRL Neck supple and no JVD Resp Resp Narrative: Normal work of breathing. Does have coarse breath sounds throughout with scattered and expiratory wheezing. No crackles appreciated. Cardio regular rate, regular rhythm and no murmurs GI non-tender and non-distended Auscultation: normoactive bowel sounds Palpation: soft Extremity Extremity Narrative: 1+ pitting edema of the right lower extremity, 2+ pedal edema to the left. Compartments are soft. Pain edema goes up to approximately mid tibial area Neuro oriented x3 Neuro Narrative: No focal deficits appreciated Sensorium / Orientation: alert Motor Exam: general weakness Psych mental status grossly normal Skin no wounds General Skin Exam: Negative for jaundice or pallor MDM MDM MDM Narrative Medical decision making narrative: Patient evaluated for sensation of wheezing as well as cough and shortness of breath. Denies any associated chest pain. 70 significant pulmonary history he does have a history of hypertension howeverrecently his blood pressures of actually been low. Differential includes ACS, pleural effusion, pneumonia, viral syndrome/bronchitis. Given these chronically anticoagulated low suspicion for PE as the cause of his symptoms. Patient is nontoxic-appearing. Is not requiring supplemental oxygen in the emergency room. Chest x-ray viewed by myself as well as radiology does not show any acute process. There is some borderline cardiomegaly and central vascular prominence however suspect this is more the patient's baseline. His BNP is normal. Clinically does not appear fluid overloaded except for some trace pedal edema however he states this is chronic and unchanged for him. CBC is normal with no acute anemia. BMP largely normal. His creatinine howeveris mildly elevated at1.24. Given his recent report of low blood pressure and was taken off of his lisinopril as well as a bump in his creatinine concern thathe could have some intravascular depletion. Is given a small fluid bolus. Clinically his presentation is most consistent with an early pneumonia or bronchitis. He is ambulated the emergency room and does not have any hypoxia. At this time I do feel he stable for continued outpatient follow-up. Will starthim prophylactically on Augmentin for possible early community-acquired pneumonia is given first dose in the emergency room. He does feel improved after breathing treatment. Is given a spacer as he was given an inhaler but does not have a spacer to use with it. Is counseled on the importance of close outpatient follow-up. I did also discussed with patient and his that the diagnosis for the cause of his symptoms is not entirely clear and while we are treat this as an infectious etiology it is possible it could be something else and if he worsens he should have a low threshold to return to the emergency room. He verbalized agreement understand this plan. Patient discharged home instable and improved condition. Lab Data Attestation: I reviewed the patient's lab results. Labs: Laboratory Results - last 24 hr 10/27/24 10/27/24 10/27/24 10:15 12:15 15:10 WBC 8.8 RBC 4.70 Hgb 13.1 Hct 41.1 MCV 87.4 MCH 27.9 MCHC 31.9 L RDW Std Deviation 56.6 H RDW Coeff of Alessandra 17.8 H Plt Count 138 L MPV 10.8 Immature Gran % (Auto) 0.500 Neut % (Auto) 89.0 H Lymph % (Auto) 4.2 L Muhlenberg % (Auto) 4.9 Eos % (Auto) 0.6 Baso % (Auto) 0.8 Absolute Neuts (auto) 7.8 H Absolute Lymphs (auto) 0.37 L Nucleated RBC % 0 Sodium 141 Potassium 4.3 Chloride 102 Carbon Dioxide 26.7 Anion Gap 12 BUN 26 H Creatinine 1.24 H Est GFR (MDRD) Non-Af 57 L BUN/Creatinine Ratio 20.6 H Glucose 142 H Calcium 8.9 Troponin T High Sens 30 H Troponin T Hi Sens 2 Hr 29 H NT pro BNP II 1061 Radiography Chest X-Ray - ED: 2 View, Read by ED Physician, No Acute Disease and Cardiomegaly Diagnostic Testing: Clinical Impression(s) from Imaging Studies Chest X-Ray 10/27/24 10:34 IMPRESSION: 1. Borderline mild cardiomegaly and central vascular prominence without overt pulmonary edema. 2. Suspect mild dilatation of the transverse colon. Correlate with bowel function and consider dedicated imaging as indicated. 3. Additional description as above. Reading Location: [facility] Rhythm Strip Rhythm Strip: paced Rate: 60 EKG Initial EKG: Attestation: I personally reviewed and interpreted this EKG as follows: Comments: Ventricular paced rhythm with underlying atrial flutter Normal axis T wave inversions, suspect repolarization abnormalities associated with his pacing Discharge Plan Triage Chief Complaint: Shortness of Breath ED Provider: Celina Wood Dx/Rx/DC Orders Clinical Impression: Pneumonia, Cough Instructions: ED Pneumonia (Adult) Prescriptions: New amoxicillin-pot clavulanate 875-125 mg tablet 1 tab PO BID Qty: 14 0RF benzonatate 200 mg capsule 200 mg PO TID PRN (Reason: cough) Qty: 20 0RF No Action cyanocobalamin (vitamin B-12) 1,000 mcg tablet 1,000 mcg PO DAILY potassium chloride 20 mEq tablet,ER particles/crystals 20 meq PO DAILY finasteride 5 mg tablet 5 mg PO DAILY duloxetine 30 mg capsule,delayed release(DR/EC) 30 mg PO DAILY lisinopril 2.5 mg tablet 2.5 mg PO DAILY trazodone 50 MG tablet 50 mg PO QHS Patient Comments: sleep tamsulosin 0.4 MG capsule 0.4 mg PO DAILY Patient Comments: prostate pravastatin 20 MG tablet 20 mg PO DAILY Patient Comments: cholesterol Eye Multivitamin 2,148 mcg-113 mg-45 mg-17.4mg tablet 1 tab PO BID Rx Instructions: administer with AM and PM meals Centrum Silver Men 130-30-674-300 mcg tablet 1 tab PO DAILY gabapentin 600 mg tablet 1,800 mg PO Q12H albuterol sulfate 90 mcg/actuation HFA aerosol inhaler 2 inh inhalation Q4H PRN (Reason: shortness of breath or wheezing) levothyroxine 175 mcg tablet 175 mcg PO DAILY omeprazole 20 mg capsule,delayed release(DR/EC) 20 mg PO DAILY zinc gluconate 50 mg tablet 50 mg PO DAILY Eliquis 5 mg tablet 5 mg PO BID Qty: 60 11RF Primary Care Provider: Jose Fam Referrals: Jose Fam MD [Primary Care Provider] - Activity Restrictions/Additional Instructions: Your lab work today was largely normal except of some findings consistent with some mild dehydration. You were given some IV fluids. Clinically I suspect youhave pneumonia versus bronchitis and have started you on an antibiotic. Your chest x-ray did not show an obvious pneumonia and your white blood cell count was normal. Your oxygen was normal in the emergency room. Take Tylenol at homeevery 6-8hours as needed for chills and fever. Use your inhaler with the spacer provided today to help with cough and wheezing. You may also take tqql-nnk-usakhdj Mucinex to help with the congestion in your chest. If you feelyour breathing is worsening please do not hesitate to return to the emergency room.Please follow-up later this week with your primary care doctor to make sure you are recovering as expected. Print Language: Albanian Disposition Disposition: Home, Self Care What to do if you have Problems For any increased pain, shortness of breath, bleeding, nausea or vomiting, chestpain, or any unexpected problems, contact your Primary Care Provider. Call [facility] ([phone]) or report tothe closest Emergency Room. Call 911 if necessary. 10/27/24 2695 Cosigner Signature (if applicable): CC: Dr. Jose Fam MD ~ Signed [facility]05-07-2025 Discharge summary Author [facility]ina [facility] Note Date/Time October 27, 2024 3:45pm [facility] Medical Records Department [address] [place] [address] Emergency Department Summary 10/27/24 MR#: [id number] Acct: [id number] Name: REGAN ARANGO Rep #:[id number] 2 : 1940 83 From: Celina Zee PCP: Dr. Jose Fam MD Status:REG ER Location: ED HPI History of Present Illness Chief Complaint: Shortness of Breath Informant: patient and spouse/S.O. Narrative Narrative: Patient is an 83-year-old male with history of chronic atrial flutter on anticoagulation with Eliquis, hypertension, hyperlipidemia, BPH and hypothyroidism as well as neuropathy presenting for shortness of breath. Patient states he has had increased shortness of breath, dyspnea on exertion and wheezing for the past 2 days. He notes his cough is productive of some white-yellow sputum. He denies associated chest pain or fevers. He states today he just felt like he was having a hard time breathing which is what prompted him tocome to the emergency room. He does note lately he has had lower blood pressures and his PCP took him off of his lisinopril on Friday. He did have a chest x-ray which reportedly was clear. He went to urgent care yesterday for his symptoms and was given albuterol inhaler. He does not feel that it was overly helpful. He denies any associated nausea or vomiting. He denies any pain. He denies any URI symptoms. He notes he has chronic leg edema worse on the left but denies any acute change in this. Came in for further evaluation tosee why he is feeling this way with his breathing. Does not wear home O2. No other complaints or concerns at this time. Does note that he was admitted for pneumonia in March 2024. [facility] Medical History Easy bruising Shortness of breath on exertion History of irregular heartbeat History of pacemaker Sick sinus syndrome Bradycardia Paroxysmal atrial fibrillation Persistent atrial fibrillation Prostate disease Excessive bleeding Gastric reflux Neuropathy Mobitz (type) I (Wenckebach's) atrioventricular block Wears glasses Cancer Thyroid disease Arthritis Hx of bladder cancer Bladder disease Restless legs Back pain Injury of head and neck Syncope Difficulty swallowing Non-smoker TIA (transient ischemic attack) History of pain when walking History of edema History of stress test Cardiology follow-up encounter Esophageal dysphagia High cholesterol Hypertension Home Medications ?Medication ?Instructions ?Recorded ?Last Taken ?Type pravastatin 20 mg tablet 20 mg PO DAILY Cholesterol 1 07/09/14 10/26/24 History tamsulosin 0.4 mg capsule 0.4 mg PO DAILY Urine retent ion 05/09/15 10/26/24 History trazodone 50 mg tablet 50 mg PO QHS sleep 05/09/15 10/26/24 History cyanocobalamin (vitamin B-12) 1,000 mcg PO DAILY suppl ement 04/14/24 10/26/24 History 1,000 mcg tablet duloxetine 30 mg capsule,delayed 30 mg PO DAILY . 03/2410/26/24 History release finasteride 5 mg tablet 5 mg PO DAILY BPH 04/14/24 0 10/26/24 History gabapentin 600 mg tablet 1,800 mg PO Q12H neuropathy 04/14/24 10/26/24 History oceqzogc-me-cryhr 300 mcg-K 60 1 tab PO DAILY suppleme nt 04/14/24 10/26/24 History mcg-lycop 600 mcg-lutein 300 mcg tablet (Centrum Silver Men) potassium chloride 20 mEq 20 meq PO DAILY supplement 1 10/26/24 History tablet,extended release(part/cryst) vitamins A,C,Z-ypwl-flbbmo 2,148 1 tab PO BID suppleme nt 04/14/24 10/26/24 History mcg-113 mg-45 mg-17.4 mg tablet (Eye Multivitamin) zinc gluconate 50 mg tablet 50 mg PO DAILY supplement 06/08/24 10/26/24 History lisinopril 2.5 mg tablet 2.5 mg PO DAILY BP 06/14/24 10/25/24 History Held on 10/27/24. Instructions: Ordered apixaban 5 mg tablet (Eliquis) 5 mg PO BID #60 tabs 10/26/24 Rx albuterol sulfate 90 mcg/actuation 2 inh inhalation Q4 H PRN shortness 10/27/24 10/27/24 History aerosol inhaler of breath or wheezing amoxicillin 875 mg-potassium 1 tab PO BID #14 tabs 01/14 Unknown Rx clavulanate 125 mg tablet benzonatate 200 mg capsule 200 mg PO TID PRN cough #20 caps 10/27/24 Unknown Rx levothyroxine 175 mcg tablet 175 mcg PO DAILY 10/27/24 10/26/24 History omeprazole 20 mg capsule,delayed 20 mg PO DAILY 10/26/24 History release Allergy/AdvReac Type Severity Reaction Status Date / Time oxybutynin (From Ditropan) Allergy Intermediate Nausea/Vom/ Verified 10/27/24 09:39 Diarrhea prednisone AdvReac Nausea Verified 10/27/24 09:39 Surgical History History of surgical removal of pilonidal cyst History of permanent cardiac pacemaker placement Status post cardiac pacemaker procedure History of esophagogastroduodenoscopy (EGD) History of laparoscopic cholecystectomy Hx of colonoscopy Hx of repair of left rotator cuff Hx of repair of right rotator cuff Hx of microdiscectomy History of lumbar spinal fusion Social History household members: spouse Smoking Status: Never smoker alcohol intake: never substance use type: does not use ROS ROS ED Constitutional Constitutional ED: Denies chills or fever(s) ENT ENT ED: Denies rhinorrhea or sore throat Cardiovascular Cardiovascular: Denies chest pain or palpitations Respiratory/Chest Respiratory/Chest: Reports cough, dyspnea, dyspnea on exertion and sputum Gastrointestinal Gastrointestinal: Denies abdominal pain, diarrhea, melena, nausea or vomiting Genitourinary Genitourinary ED: Denies dysuria or urinary frequency Musculoskeletal Musculoskeletal: Denies arthralgias or myalgias Integumentary Denies rash Neurologic Neurologic: Reports weakness; Denies paresthesias Hematologic/Lymphatic Hematologic/Lymphatic: Reports easy bleeding and easy bruising EXAM Physical Exam Const Vital Signs: 10/27/24 09:39 10/27/24 10:18 10/27/24 10:49 Temperature 99 F Temperature Source Oral Pulse Rate 58 L 94 Respiratory Rate 19 H 17 Respiratory Effort Normal Non-Labored Respiratory Pattern Normal Blood Pressure 130/60 H Blood Pressure Mean 83 Pulse Ox 92 Oxygen Delivery Method Room Air 10/27/24 11:41 10/27/24 12:23 10/27/24 13:32 Temperature 99 F 99.4 F H 99.4 F H Temperature Source Oral Oral Pulse Rate 60 63 63 Respiratory Rate 18 18 18 Respiratory Effort Respiratory Pattern Blood Pressure 129/70 H 137/57 H 137/57 H Blood Pressure Mean 89 83 83 Pulse Ox 93 95 95 Oxygen Delivery Method Room Air Room Air Positive well nourished and well developed General Appearance ED: well developed and NAD; Negative for pallor HEENT Reports TM's clear and moist mucous membranes HEENT Narrative: Normal oropharynx. Normal nares. Tympanic Membrane ED: Yes TM's clear Eyes PERRL Neck supple and no JVD Resp Resp Narrative: Normal work of breathing. Does have coarse breath sounds throughout with scattered and expiratory wheezing. No crackles appreciated. Cardio regular rate, regular rhythm and no murmurs GI non-tender and non-distended Auscultation: normoactive bowel sounds Palpation: soft Extremity Extremity Narrative: 1+ pitting edema of the right lower extremity, 2+ pedal edema to the left. Compartments are soft. Pain edema goes up to approximately mid tibial area Neuro oriented x3 Neuro Narrative: No focal deficits appreciated Sensorium / Orientation: alert Motor Exam: general weakness Psych mental status grossly normal Skin no wounds General Skin Exam: Negative for jaundice or pallor MDM MDM MDM Narrative Medical decision making narrative: Patient evaluated for sensation of wheezing as well as cough and shortness of breath. Denies any associated chest pain. 70 significant pulmonary history he does have a history of hypertension however recently his blood pressures of actually been low. Differential includes ACS, pleural effusion, pneumonia, viral syndrome/bronchitis. Given these chronically anticoagulated low suspicion for PE as the cause of his symptoms. Patient is nontoxic-appearing. Is not requiring supplemental oxygen in the emergency room. Chest x-ray viewed by myself as well as radiology does not show any acute process. There is some borderline cardiomegaly and central vascular prominence however suspect this is more the patient's baseline. His BNP is normal. Clinically does not appear fluid overloaded except for some trace pedal edema however he states this is chronic and unchanged for him. CBC is normal with no acute anemia. BMP largely normal. His creatinine howeveris mildly elevated at 1.24. Given his recent report of low blood pressure and was taken off of his lisinopril as well as a bump in his creatinine concern thathe could have some intravascular depletion. Is given a small fluid bolus. Clinically his presentation is most consistent with an early pneumonia or bronchitis. He is ambulated the emergency room and does not have any hypoxia. At this time I do feel he stable for continued outpatient follow-up. Will starthim prophylactically on Augmentin for possible early community-acquired pneumonia is given first dose in the emergency room. He does feel improved after breathing treatment. Is given a spacer as he was given an inhaler but does not have a spacer to use with it. Is counseled on the importance of close outpatient follow-up. I did also discussed with patient and his that the diagnosis for the cause of his symptoms is not entirely clear and while we are treat this as an infectious etiology it is possible it could be something else and if he worsens he should have a low threshold to return to the emergency room. He verbalized agreement understand this plan. Patient discharged home instable and improved condition. Lab Data Attestation: I reviewed the patient's lab results. Labs: Laboratory Results - last 24 hr 10/27/24 10/27/24 10/27/24 10:15 12:15 15:10 WBC 8.8 RBC 4.70 Hgb 13.1 Hct 41.1 MCV 87.4 MCH 27.9 MCHC 31.9 L RDW Std Deviation 56.6 H RDW Coeff of Alessandra 17.8 H Plt Count 138 L MPV 10.8 Immature Gran % (Auto) 0.500 Neut % (Auto) 89.0 H Lymph % (Auto) 4.2 L [place] % (Auto) 4.9 Eos % (Auto) 0.6 Baso % (Auto) 0.8 Absolute Neuts (auto) 7.8 H Absolute Lymphs (auto) 0.37 L Nucleated RBC % 0 Sodium 141 Potassium 4.3 Chloride 102 Carbon Dioxide 26.7 Anion Gap 12 BUN 26 H Creatinine 1.24 H Est GFR (MDRD) Non-Af 57 L BUN/Creatinine Ratio 20.6 H Glucose 142 H Calcium 8.9 Troponin T High Sens 30 H Troponin T Hi Sens 2 Hr 29 H NT pro BNP II 1061 Radiography Chest X-Ray - ED: 2 View, Read by ED Physician, No Acute Disease and Cardiomegaly Diagnostic Testing: Clinical Impression(s) from Imaging Studies Chest X-Ray 10/27/24 10:34 IMPRESSION: 1. Borderline mild cardiomegaly and central vascular prominence without overt pulmonary edema. 2. Suspect mild dilatation of the transverse colon. Correlate with bowel function and consider dedicated imaging as indicated. 3. Additional description as above. Reading Location: [id number] Rhythm Strip Rhythm Strip: paced Rate: 60 EKG Initial EKG: Attestation: I personally reviewed and interpreted this EKG as follows: Comments: Ventricular paced rhythm with underlying atrial flutter Normal axis T wave inversions, suspect repolarization abnormalities associated with his pacing Discharge Plan Triage Chief Complaint: Shortness of Breath ED Provider: Celina Wood Dx/Rx/DC Orders Clinical Impression: Pneumonia, Cough Instructions: ED Pneumonia (Adult) Prescriptions: New amoxicillin-pot clavulanate 875-125 mg tablet 1 tab PO BID Qty: 14 0RF benzonatate 200 mg capsule 200 mg PO TID PRN (Reason: cough) Qty: 20 0RF No Action cyanocobalamin (vitamin B-12) 1,000 mcg tablet 1,000 mcg PO DAILY potassium chloride 20 mEq tablet,ER particles/crystals 20 meq PO DAILY finasteride 5 mg tablet 5 mg PO DAILY duloxetine 30 mg capsule,delayed release(DR/EC) 30 mg PO DAILY lisinopril 2.5 mg tablet 2.5 mg PO DAILY trazodone 50 MG tablet 50 mg PO QHS Patient Comments: sleep tamsulosin 0.4 MG capsule 0.4 mg PO DAILY Patient Comments: prostate pravastatin 20 MG tablet 20 mg PO DAILY Patient Comments: cholesterol Eye Multivitamin 2,148 mcg-113 mg-45 mg-17.4mg tablet 1 tab PO BID Rx Instructions: administer with AM and PM meals Centrum Silver Men 450-63-508-300 mcg tablet 1 tab PO DAILY gabapentin 600 mg tablet 1,800 mg PO Q12H albuterol sulfate 90 mcg/actuation HFA aerosol inhaler 2 inh inhalation Q4H PRN (Reason: shortness of breath or wheezing) levothyroxine 175 mcg tablet 175 mcg PO DAILY omeprazole 20 mg capsule,delayed release(DR/EC) 20 mg PO DAILY zinc gluconate 50 mg tablet 50 mg PO DAILY Eliquis 5 mg tablet 5 mg PO BID Qty: 60 11RF Primary Care Provider: Jose Fam Referrals: Jose Fam MD [Primary Care Provider] - Activity Restrictions/Additional Instructions: Your lab work today was largely normal except of some findings consistent with some mild dehydration. You were given some IV fluids. Clinically I suspect youhave pneumonia versus bronchitis and have started you on an antibiotic. Your chest x- ray did not show an obvious pneumonia and your white blood cell count was normal. Your oxygen was normal in the emergency room. Take Tylenol at homeevery 6-8 hours as needed for chills and fever. Use your inhaler with the spacer provided today to help with cough and wheezing. You may also take [id number] Mucinex to help with the congestion in your chest. If you feelyour breathing is worsening please do not hesitate to return to the emergency room. Please follow-up later this week with your primary care doctor to make sure you are recovering as expected. Print Language: Albanian Disposition Disposition: Home, Self Care What to do if you have Problems For any increased pain, shortness of breath, bleeding, nausea or vomiting, chestpain, or any unexpected problems, contact your Primary Care Provider. Call [facility] ([phone]) or report to the closest Emergency Room. Call 911 if necessary. 10/27/24 1547 <Electronically signed by Celina Wood DO> Cosigner Signature (if applicable): CC: Dr. Jose Fam MD ~ Signed [facility] Work Phone: 1(508) 521-577005-07-2025 Radiology Diagnostic study note [facility] Imaging Services [address] [place] [address] Chest PA and Lateral MR#: [id number] Acct: [id number] Name: REGAN ARANGO Rep #: [id number] : 1940 M 83 From: Shruthi Marrero MD PCP: Dr. Jose Fam MD Status: REG ER Study:Chest PA and Lateral Date of Exam: 10/27/24 Exam# [id number] Ordering Dr: Liliana Wood DO PROCEDURE: CHEST PA AND LATERAL, 10/27/2024 REASON FOR EXAM: SOB TECHNIQUE: PA and lateral views of the chest were obtained. COMPARISON: 07/20/2024 FINDINGS: Heart: Similar LEFT chest wall dual lead pacer. Borderline mild cardiomegaly. Mediastinum: Similar contours including widening of the RIGHT paratracheal stripe, potentially relating to vascular prominence. Mild central vascular prominence. Lungs/pleura: No focal consolidation. No pleural effusion or visible pneumothorax. Bones: Demineralization. Multilevel spondylosis. Suspect diffuse idiopathic skeletal hyperostosis.. Lines and support devices: None. Other: Suspect mild dilatation of the transverse colon to 5.6 cm.. RAD/Chest PA and Lateral IMPRESSION: 1. Borderline mild cardiomegaly and central vascular prominence without overt pulmonary edema. 2. Suspect mild dilatation of the transverse colon. Correlate with bowel function and consider dedicated imaging as indicated. 3. Additional description as above. Reading Location: [id number] CC: Dr. Celina Wood, DO; Dr. Jose Fam MD ~ Sterile Process Coordinator: Signed [facility]05-07-2025 Telephone encounter Note* Telephone Encounter - Jose Fam MD - 10/27/2024 9:32 AM EDT Noted and agree with advise provided. [facility]05-07-2025 Miscellaneous Notes* Telephone Encounter - Jose Fam MD - 10/27/2024 9:32 AM EDT Noted and agree with advise provided. * Telephone Encounter - Selene Jones RN - 10/27/2024 8:54 AM EDT Pts called in and reports they took the Pt to yesterday evening because he was having wheezing and SOB. Pt was given an albuterol inhaler. Pts reports it doesn't help for long. She reports he is still SOB, wheezing, and has a dry hard cough. She reports he is getting much rest due to this. She was asking if they should give the Albuterol more time to work or if she should take hi to the ER. I told her the Albuterol should be pretty immediate, but isn't long lasting. She took her husbands O2 sat and it was 95% HR 62. I asked if he was feeling the same, better, or worse than yesterday. He told his he was feeling worse more SOB, she is going to take him to [facility] ER. I let her know I would let Dr Fam know. Selene Jones, HASEEB [facility] Telephone encounter Note * Telephone Encounter - Selene Jones RN - 10/27/2024 8:54 AM EDT Pts called in and reports they took the Pt to EC yesterday evening because he was having wheezing and SOB. Pt was given an albuterol inhaler. Pts reports it doesn't help for long. She reports he is still SOB, wheezing, and has a dry hard cough. She reports he is getting much rest due to this. She was asking if they should give the Albuterol more time to work or if she should take hi to the ER. I told her the Albuterol should be pretty immediate, but isn't long lasting. She took her husbands O2 sat and it was 95% HR 62. I asked if he was feeling the same, better, or worse than yesterday. He told his he was feeling worse more SOB, she is going to take him to [facility] ER. I let her know I would let Dr Fam know. Selene Jones, RN [facility]05-07-2025 Hospital Discharge instructions Additional Instructions Your lab work today was largely normal except of some findings consistent with some mild dehydration. You were given some IV fluids. Clinically I suspect you have pneumonia versus bronchitis and have started you on an antibiotic. Your chest x-ray did not show an obvious pneumonia and your white blood cell count was normal. Your oxygen was normal in the emergency room. Take Tylenol at home every 6-8 hours as needed for chills and fever. Use your inhaler with the spacer provided today to help with cough and wheezing. You may also take kzum-doz-tupbgqs Mucinex to help with the congestion in your chest. If you feel your breathing is worsening please do not hesitate to return to the emergency room. Please follow-up later this week with your primary care doctor to make sure you are recovering as expected.[facility] Work Phone: 1(107) 583-106305-06-2025 [facility] History of Present illness Narrative* Ari Bautista PA-C - 10/26/2024 6:19 PM EDT This note was created using Visibizriter. Subjective Regan Arango is a 83 year old male. Patient is an 83-year-old male who complains of wheezing that he has been experiencing for the past2 days. Patient states his symptoms began shortly after mowing his yard. Patient reports that therewere a large number of dandelion's and that dandelion spores were concentrated in the air. Patient has no history of asthma or COPD and does not smoke. Patient was actually seen by his primary care physician yesterday for physical exam at which time he did describe the cough. His primary care physician did order a chest x-ray and the radiologist report was negative for acute findings. Patient denies fever, chills or myalgia and further denies congestion, sinus pressure, ear pain, sore throat orother illness symptoms. Patient states that he did experience several episodes of shortness of breath prior to arrival secondary to wheezing. Patient denies left chest pain, tightness or pressure andreports no episodes of dyspnea. Wheezing Associated symptoms include coughing. Review of Systems Respiratory: Positive for cough and wheezing. All other systems reviewed and are negative. Objective BP 122/74 Pulse 60 Temp 36.8 C (98.3 F) Resp 18 Wt 128.4 kg (283 lb) SpO2 94% BMI 38.92kg/m Physical Exam Vitals and nursing note reviewed. Constitutional: Appearance: Normal appearance. He is normal weight. HENT: Head: Normocephalic and atraumatic. Right Ear: Tympanic membrane, ear canal and external ear normal. Left Ear: Tympanic membrane, ear canal and external ear normal. Nose: Nose normal. Mouth/Throat: Mouth: Mucous membranes are moist. Pharynx: Oropharynx is clear. Eyes: Extraocular Movements: Extraocular movements intact. Conjunctiva/sclera: Conjunctivae normal. Pupils: Pupils are equal, round, and reactive to light. Cardiovascular: Rate and Rhythm: Normal rate and regular rhythm. Pulses: Normal pulses. Heart sounds: Normal heart sounds. Pulmonary: Effort: Pulmonary effort is normal. Breath sounds: Wheezing present. Musculoskeletal: Cervical back: Normal range of motion and neck supple. Skin: General: Skin is warm and dry. Capillary Refill: Capillary refill takes less than 2 seconds. Neurological: General: No focal deficit present. Mental Status: He is alert and oriented to person, place, and time. Psychiatric: Mood and Affect: Mood normal. Behavior: Behavior normal. Thought Content: Thought content normal. Judgment: Judgment normal. Assessment and Plan Physical exam findings as noted above. Mild wheezing is noted on exam and pulse oximeter saturationis noted to be 94% on room air. Patient is conversing in complete sentences and otherwise is relaxed and appears well. Due to previous medical conditions, patient is unable to tolerate oral prednisone. Patient was provided with a prescription for an albuterol MDI and advised to contact his primary care physician if his symptoms do not resolve. Additional supportive care was discussed and the patient verbalizes excellent understanding of same. CLINICAL IMPRESSION: Wheezing; Possible Environmental Allergy ASSESSMENT/PLAN: 1. Wheezing - ICD9: 786.07, ICD10: R06.2 - ALBUTEROL SULFATE HFA 90 MCG/ACTUATION AEROSOL INHALER - INHALATIONAL SPACING DEVICE MDM Amount and/or Complexity of Data Reviewed Tests in the radiology section of CPT : reviewed Risk of Complications, Morbidity, and/or Mortality Presenting problems: low Diagnostic procedures: low Management options: eduardo Bautista PA-C [facility] Telephone encounter Note * Telephone Encounter - Nick Spence MA - 10/25/2024 3:51 PM EDT Patient's notified. Nick Spence MA [facility]05-05-2025 Miscellaneous Notes* Telephone Encounter - Nick Spence MA - 10/25/2024 3:51 PM EDT Patient's notified. Nick Spence MA * Telephone Encounter - Jose Fam MD - 10/25/2024 3:46 PM EDT Let patient know chest x-ray was ok. documented [facility]Pe[facility] Telephone encounter Note * Telephone Encounter - Jose Fam MD - 10/25/2024 3:46 PM EDT Let patient know chest x-ray was ok. [facility]05-05-2025 History of Present illness Narrative* Julissa Barnard Tech - 10/25/2024 2:30 PM EDT Radiology Service Progress Note PATIENT NAME: Regan Arango DATE OF SERVICE: October 25, 2024 TIME: 2:37 PM PATIENT IDENTITY VERIFICATION COMPLETED USING TWO (2) IDENTIFIERS: Name and Date of confirmedby patient verbally. FALL SCREENING: Has the patient had 2 falls in the last year or 1 fall with injury or currently using an Ambulatory Assistive Device (Walker, Cane, Wheelchair, Crutches, etc.)? No PATIENT GENDER DATA: Assigned male at PATIENT RELEVANT IMPLANT DATA REVIEWED: Not Applicable PATIENT PRESENTS WITH AN IMPLANTABLE OR ATTACHED OYSTER CULTURIST: No RADIOLOGY DEPARTMENT: General X-ray: Exam(s) Completed: Chest X-Ray PERIPHERAL IV DATA: Not applicable SIGNED BY: Adan Iqbal October 25, 2024 2:37 PM documented in [facility] encounterPe[facility]-2025 [facility] Instructions* Patient Instructions* Jose Fam MD - 10/25/2024 1:35 PM EDT Please make a follow up appt with Dr. Campoverde. On [employer] Compression socks 15 mmHg men Hold the lisinopril 2.5 mg dose daily. documented in [facility] encounterPe[facility]05-[facility] History of Present illness Narrative* Jose Fam MD - 10/25/2024 1:20 PM EDT Chief Complaint Patient presents with: Follow Up HPI Regan Arango is a 83 year old male who presents here today for Depression/Anxiety/Memory issues. Patient with hx of HTN, HLP, a.flutter/bradycardia s/p pacemaker, Pulmonary HTN, SVT, JESSY (untreated), neuropathy, hypothyroidism, elevated glucose, OAB, and those as below. Dyspnea: - Dyspnea on exertion, particularly when walking from room to room or performing strenuous activities. - Requires deep breaths when sitting down after activity. - Denies orthopnea. - Regan's reports he sleeps a lot and lacks energy. - sometimes feels orthopneic with laying in recliner. Resolves after taking some deep breaths. Cough: - Hard, dry cough noted primarily when sitting, eating, and when first reclining at night. - Denies frequent acid reflux. On occasion has an acid taste in the back of his throat. Atrial Flutter: - Diagnosed with atrial flutter on 06/09 during a pre-procedure EKG. - Initially considered for a leadless pacemaker, but a dual-lead pacemaker was deemed necessary. - Dual-lead pacemaker implanted on 07/19. - Follow-up with cardiology scheduled in October. Esophageal Constriction: - History of esophageal constriction, previously treated with dilation. - Recent endoscopy revealed a state of perpetual contraction in the esophagus. - Received Botox injections in the esophagus approximately 2-3 weeks post- pacemaker implantation. This did seem to help. - No follow-up scheduled with Dr. Campoverde, the soil biology teacher. Hypothyroidism: - Recent increase in thyroid medication to 175 mcg. - Repeat thyroid lab scheduled for October. Edema: - Notable edema in the left foot, making it difficult to fasten shoes. This has been a chronic ongoing issue and no recent changes. - Regan's reports progressive thickening of the left foot. - Currently on a diuretic, 40 mg daily. - Elevates legs while sitting in a recliner. Bruising and Skin Bleeding: - Reports frequent bruising and small skin bleeds, attributed to Eliquis use. - Regan's notes pop-up bleeders on the knee, toe, and arm, with small amounts of blood found on sheets. - Applying lotion to rough patches on the back to prevent irritation. Past medical history, appointments, medications, allergies reviewed. Previous Medical History PAST MEDICAL HISTORY Diagnosis Date 1st degree AV block 09/08/2015 AC (acromioclavicular) joint arthritis 08/09/2009 Acquired hypothyroidism 04/03/2015 Actinic skin damage 03/08/2012 Acute, but ill-defined, cerebrovascular disease 07/13/2008 Advance directive discussed with patient 03/21/2022 Discussed 02/2022 Anemia 07/24/2015 Arthritis of knee 10/30/2011 At risk for falls 05/28/2019 Atrial flutter ([facility]) 06/20/2024 Seeing [facility]: Dr. Boone Atrial flutter ([facility]) 06/20/2024 Seeing [facility]: Dr. 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 Campoverde Essential hypertension Essential hypertension Familial peripheral neuropathy 06/02/2015 Gait difficulty 04/29/2016 Gastroesophageal reflux disease without esophagitis 04/03/2015 Greater trochanteric bursitis 03/20/2016 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09/04/2012 History of bladder cancer 04/09/2023 History of CVA (cerebrovascular accident) 02/2008 residual weakness in right leg History of giant cell arteritis 03/29/2008 Hx of long-term use of blood thinners Irritated//Inflamed Seborrheic Keratosis 03/08/2012 Living will on file 03/21/2022 DPA: Sudarshan () Low back pain 01/13/2014 Low serum vitamin B12 04/16/2022 Lower urinary tract symptoms (LUTS) 08/02/2014 Lumbar stenosis with neurogenic claudication 01/13/[address] Starr Memory difficulties 04/12/2022 04/12/22 MMSE: Mild pulmonary hypertension (HCC) 09/22/[address] Hamilton, not able to tolerate CPAP for JESSY. 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 Pacemaker 07/22/2024 Placed 07/19/2024 by [facility] Pain in both hands 12/19/2015 Postlaminectomy syndrome 05/08/2010 Premature supraventricular beats 09/08/2015 Pulmonary nodule 08/06/[address] [facility] on 08/01/22. Repeat in 3-6 months. Multiple nodules up to 7mm in size. Right leg weakness 04/25/2014 Sebaceous cyst 06/08/2009 Stasis dermatitis of both legs 06/02/2015 SVT (supraventricular tachycardia) (HCC) 07/17/2020 SVT (supraventricular tachycardia) (HCC) 07/17/2020 Thoracic or lumbosacral neuritis or radiculitis, unspecified 05/05/2009 Thumb pain, left 11/26/2017 Tinnitus 07/26/2017 Unspecified arthropathy, lower leg 10/12/2008 Venous insufficiency (chronic) (peripheral) 06/02/2015 Vertigo following cerebrovascular accident 07/23/2010 Viral warts, unspecified 04/09/2013 Xerosis cutis 09/04/2012 Previous Surgical History PAST SURGICAL HISTORY Procedure Laterality Date 2D ECHO (EXEP) 08/2015 EF=64%, 1+ TR and mild Pulm HTN ANESTH,PACEMAKER INSERTION 07/19/2024 COLONOSCOPY FLX DX W/COLLJ SPEC WHEN PFRMD 02/06/2011 Colonoscopy, repeat 10 yrs CYSTO W/REMOVAL OF LESIONS MINOR <0.5CM 08/31/2014 ESOPHAGOGASTRODUODENOSCOPY TRANSORAL DIAGNOSTIC 12/14/2018 EGD FASCT PALM W/WO Z-PLASTY TISSUE REARGMT/SKN GRFT Left 09/08/2018 Left 3rd finger fascietomy with skin graft, left 4th finger facietomy with local soft tissue rearrangements and trigger finger release L3-4 and L4-5 laminoforaminotomy 2009 LAPAROSCOPIC CHOLECYSTECTOMY 02/25/2024 LIGATION/BIOPSY TEMPORAL ARTERY 03/30/2008 RIGHT, negitive. LUMBAR SPINE FUSION COMBINED 05/05/2015 MAL LESION FACE,EAR,EYEL 1.1-2CM 04/20/2008 Exc. right lateral islam skin lesion and right forehead OPEN REPAIR OF ROTATOR CUFF ACUTE 2000 Rotator cuff repair left PAST SURGICAL HISTORY OF ingrown toe nail removed PAST SURGICAL HISTORY OF 1965 cyst removed from bottom of spine REMOVAL GALLBLADDER 02/25/2024 SHOULDER ARTHROSCOPY/SURGERY 08/02/2010 Open Rt subacromial decompression STRESS TEST 04/10/2015 WNL STRESS TEST NUCLEAR 07/09/2018 negative Family History FAMILY HISTORY Problem Relation Age of Onset Hypertension Mother Stroke Mother other (headaches) Mother Ischemic Heart Disease Father Heart Brother Patient Allergies ALLERGIES Allergen Reactions Ditropan [Oxybutyni* Other: See Comments Nausea, brain fog, increased weakness, decreased appetite, and increased restless leg symptoms. Prednisone Other: See Comments Had GI problems, headaches. Patient states he was on high dose for almost 90 days Current Medications Current Outpatient Medications on File Prior to Visit Medication Sig lisinopril 2.5 mg tablet Take 1 tablet by mouth once daily. potassium chloride ER (KLOR-CON M20) 20 mEq tablet Take 1 tablet by mouth once daily. pravastatin (PRAVACHOL) 20 mg tablet Take 1 tablet by mouth once daily. traZODone (DESYREL) 50 mg tablet Take 1 tablet by mouth daily at bedtime. finasteride (PROSCAR) 5 mg tablet Take 1 tablet by mouth once daily. gabapentin (NEURONTIN) 600 mg tablet Take 2 tablets by mouth three times a day for 180 days. levothyroxine (LEVOXYL) 175 mcg tablet Take one tab daily by mouth furosemide (LASIX) 40 mg tablet Take 1 tablet by mouth once daily. Per [facility] apixaban (ELIQUIS) 5 mg tab(s) Take 1 tablet by mouth two times a day. Per [facility] DULoxetine (CYMBALTA) 30 mg capsule Take 1 capsule by mouth once daily. MV with Erm-Zmxltoov-Iwcmek (CENTRUM SILVER) 0.4 mg-300 mcg- 250 mcg tab Take 1 tablet by mouth once daily. traZODone (DESYREL) 50 mg tablet Take 1 tablet by mouth daily at bedtime. tamsulosin (FLOMAX) 0.4 mg TAKE 1 CAPSULE ONE TIME DAILY 30 MINUTES AFTER THE SAME MEAL EACH DAY cyanocobalamin (VITAMIN B-12) 1,000 mcg tab Take 1 tablet by mouth once daily. vit C/E/Zn/coppr/lutein/zeaxan (PRESERVISION AREDS-2 ORAL) Take by mouth two times a day. ZINC ORAL Take 50 mg by mouth once daily. COMPOUNDED PRESCRIPTION rollator walker #: one Dx: I63.50, Z86.73, R26.89, G60.9, M62.81 and M48.06 No current facility-administered medications on file prior to visit. Social History Social History Tobacco Use Smoking status: Never Passive exposure: Never Smokeless tobacco: Never Vaping Use Vaping status: Never Used Substance Use Topics Alcohol use: Not Currently Drug use: Never Review of Symptoms REVIEW OF SYSTEMS See HPI EXAM: BP 106/60 Pulse 60 Resp 18 Wt 128.4 kg (283 lb) SpO2 93% BMI 38.92 kg/m General Appearance: Well appearing, alert, in no acute distress, well-hydrated, well nourished. andObese. Neck: Supple, no adenopathy; thyroid symmetric, normal size, no bruits. Lungs: Lungs clear to auscultation. No wheezing, rhonchi, rales.. Heart: RRR without murmur, gallop, or rubs. No ectopy. Abdomen: Normal abdominal exam, Abdomen soft, non-tender. Bowel sounds normal. No masses, organomegaly. Extremities: No deformities, skin discoloration. 1+ pitting edema on the left and mild edema on theright. Good capillary refill. . Health Maintenance List Shingrix Vaccine(1 of 2) Never done Advance Directive Discussion due on 06/23/2024 Depression Screening due on 10/08/2024 Anxiety Screening due on 10/08/2024 RSV Vaccine(1 - 1-dose 75+ series) due on 04/09/2025 Covid-19 Vaccine( season) due on 10/08/2025 DTaP,Tdap,Td Vaccine(2 - Td or Tdap) due on 02/01/2025 Diabetes Screening due on 09/18/2027 Influenza Vaccine Completed Pneumococcal Vaccine: 50+ Completed Data reviewed Lorene's anxiety scale score: 23 (normal) Landon's Depression score: 7 (normal) MINI-MENTAL STATE EXAMINATION (MMSE) Make the patient comfortable and establish rapport. Ask questions in the order listed. Total possible score is 30. ORIENTATION 1. What is the (year) (season) (date) (day) (month)? Max score=5 Patient's score=5 2. Where are we? (state) (county) (town or city) (hospital) (floor)? Max score=5 Patient's score=5 REGISTRATION Ask the patient if you may test his/her memory. Then say the names of 3 unrelated objects, clearly and slowly, about one second for each (eg, apple, table, danielle). After you have said all 3, ask him/her to repeat them. This first repetition determines the score(0-3), but keep saying them until he/she can repeat all 3, up to 6 trials. Max score=3 Patient's score=3 ATTENTION AND CALCULATION Ask the patient to begin with 100 and count backwards by 7. Stop after 5 subtractions (93, 86, 79, 72, 65). Score the total number of correct answers. If the patient cannot or will not perform the serial 7s task, ask him/her to spell the word WORLD backwards. The score is the number of letters in the correct order (eg, DLROW=5; DLRW=4; DLORW, DLW=3; OW=2; DRLWO=1). Max score=5 Patient's score=5 RECALL Ask the patient to recall the 3 items repeated above (eg, apple, table, danielle). Max score=3 Patient's score=3 LANGUAGE Naming: Show the patient a wristwatch and ask him/her what it is. Repeat for pencil. Max score=2 Patient's score=2 Repetition: Ask the patient to repeat the phrase No ifs, ands, or buts: after you. Max score=1 Patient's score=1 3-Stage Command: Give the patient a piece of blank paper and ask him/her to take a piece of paper in your right hand, fold it in half, put it on the floor. Score 1 point for each part correctly executed. Max score=3 Patient's score=3 Reading: On a blank piece of paper, print the sentence CLOSE YOUR EYES in letters large enough for the patient to see clearly. Ask him/her to read it and do what it says. Score 1 point only if he/sheactually closes his/her eyes. Max score=1 Patient's score=1 Writing: Give the patient a blank piece of paper and ask him/her to write a sentence. Do not dictate a sentence; it is to be written spontaneously. It must contain a subject and verb and be sensible.Correct grammar and punctuation are not necessary. Max score=1 Patient's score=1 Copying: Ask the patient to copy the figure of intersecting pentagons exactly as it is. All 10 angles must be present and 2 must intersect to form a 4-sided figure to score 1 point. Tremor and rotation are ignored. Max score=1 Patient's score=1 MAXIMUM TOTAL SCORE = 30 TOTAL SCORE = 30/30 Suggested guideline for determining the severity of cognitive impairment: Mild: MMSE>21 Moderate: MMSE 10-20 Severe: MMSE<9 Clock: 4/4 Expected decline in MMSE scores in untreated mild to moderate Alzheimer's patient is 2 to 4 points per year. *Adapted from Folstein et al.1 and Carolina and Blackstein2. (c) 1974, 1997 [employer] Used withpermission. References: 1. Blackstein ASHWINI, Folstein SE, Darryl WI. Mini-Mental State: a practical method for grading the cognitive state of patients for the clinician. J Psychiatr Res. 1975; 12:189-198. 2. JR Carolina, Zahra MARADIAGA, Mini-Mental State Examination (MMSE). Psychopharm Bull. 1988;24:689-692. 3. Juliano JT, Disha FJ, Sobeida RD, Jesse A, Viky F. Neuropsychological function in Alzheimer's disease: pattern of impairment and rates of progression. Arch Neurol. 1988;45:263-268. 4. Michaela JA, Jase B,Nolan S-P, Barak GUZMAN. Predictors of cognitive and functional progression in patients with probable Alzheimer's disease. Neurology. 1992;42:6185-7734. A/P ASSESSMENT/PLAN: 1. SOB (shortness of breath) - ICD9: 786.05, ICD10: R06.02 (primary diagnosis) Check - ECHO - PERFLUTREN LIPID MICROSPHERES 1.1 MG/ML INJECTION IN NS 10 ML - SODIUM CHLORIDE 0.9 % (FLUSH) INJECTION SYRINGE - NM CARDIAC PERF STRESS/PHARM - REGADENOSON 0.4 MG/5 ML INTRAVENOUS SYRINGE - AMINOPHYLLINE 250 MG/10 ML INTRAVENOUS SOLUTION - METOPROLOL TARTRATE 5 MG/5 ML INTRAVENOUS SOLUTION - INSERT IV ([place]) - IV DISCONTINUE - SPIROMETRY - BASELINE AND POST DILATOR - OXIMETRY WITH AMBULATION - XR CHEST 2V FRONTAL/LAT 2. HDZ (dyspnea on exertion) - ICD9: 786.09, ICD10: R06.09 Check - ECHO - PERFLUTREN LIPID MICROSPHERES 1.1 MG/ML INJECTION IN NS 10 ML - SODIUM CHLORIDE 0.9 % (FLUSH) INJECTION SYRINGE - NM CARDIAC PERF STRESS/PHARM - REGADENOSON 0.4 MG/5 ML INTRAVENOUS SYRINGE - AMINOPHYLLINE 250 MG/10 ML INTRAVENOUS SOLUTION - METOPROLOL TARTRATE 5 MG/5 ML INTRAVENOUS SOLUTION - INSERT IV ([place]) - IV DISCONTINUE - SPIROMETRY - BASELINE AND POST DILATOR - OXIMETRY WITH AMBULATION - XR CHEST 2V FRONTAL/LAT 3. Persistent cough - ICD9: 786.2, ICD10: R05.3 Check - XR CHEST 2V FRONTAL/LAT start - OMEPRAZOLE 20 MG CAPSULE,DELAYED RELEASE 4. Memory difficulties - ICD9: 780.93, ICD10: R41.3 - MMSE was normal at 30/30 5. Bilateral leg edema - ICD9: 782.3, ICD10: R60.0 - cont lasix 40 mg a day and advised on support socks at 15 mmHg. 6. History of bladder cancer - ICD9: V10.51, ICD10: Z85.51 - CONSULT TO UROLOGY: Dr. Hurst 7. BPH with obstruction/lower urinary tract symptoms - ICD9: 600.01, 599.69, ICD10: N40.1, N13.8 - CONSULT TO UROLOGY 8. OAB (overactive bladder) - ICD9: 596.51, ICD10: N32.81 - CONSULT TO UROLOGY 9. Gastroesophageal reflux disease without esophagitis - ICD9: 530.81, ICD10: K21.9 - Begin treatment with Prilosec 20 mg QD 10. Hypotension due to drugs - ICD9: 458.8, E947.9, ICD10: I95.2 - will have him hold lisinopril 2.5 mg a day. Requested Prescriptions Signed Prescriptions Disp Refills omeprazole (PRILOSEC) 20 mg capsule 30 capsule 5 Sig: Take 1 capsule by mouth once daily. Take 60 min after levothyroxine then wait another 30 min to eat and take other meds. F/u 6 weeks recheck cough, shortness of breath, edema and HDZ I spent a total of 50 minutes on the date of the service which included preparing to see the patient, [id number] patient care, completing clinical documentation, performing a medically appropriate examination, counseling and educating the patient/family/caregiver and ordering medications, tests, or procedures. Jose Fam MD documented [facility] History of Present illness Narrative* Phoebe Muro PA-C - 10/08/2024 12:54 PM EDT Chief Complaint Patient presents with: 6 Month Exam HPI Regan Arango is a 83 year old male who presents here today for Chronic Medical Conditions.. Patient with hx of HTN, HLP, a.flutter/bradycardia s/p pacemaker, Pulmonary HTN, SVT, JESSY (untreated), neuropathy, hypothyroidism, elevated glucose, OAB, and those as below. Dyspnea: - Dyspnea on exertion, particularly when walking from room to room or performing strenuous activities. - Requires deep breaths when sitting down after activity. - Denies orthopnea. - Regan's reports he sleeps a lot and lacks energy. Cough: - Hard, dry cough noted primarily when sitting, eating, and when first reclining at night. - Denies frequent acid reflux. Abdominal Cramping: - Recent episodes of severe abdominal cramping, with the most recent episode occurring last night. - Cramping relieved by Tums. - Regan's reports abdominal distention. Atrial Flutter: - Diagnosed with atrial flutter on 06/09 during a pre-procedure EKG. - Initially considered for a leadless pacemaker, but a dual-lead pacemaker was deemed necessary. - Dual-lead pacemaker implanted on 07/19. - Follow-up with cardiology scheduled in October. Esophageal Constriction: - History of esophageal constriction, previously treated with dilation. - Recent endoscopy revealed a state of perpetual contraction in the esophagus. - Received Botox injections in the esophagus approximately 2-3 weeks post- pacemaker implantation. - No follow-up scheduled with Dr. Campoverde, the soil biology teacher. Hypothyroidism: - Recent increase in thyroid medication to 175 mcg. - Repeat thyroid lab scheduled for October. Edema: - Notable edema in the left foot, making it difficult to fasten shoes. - Rgean's reports progressive thickening of the left foot. - Currently on a diuretic, 40 mg daily. - Elevates legs while sitting in a recliner. Bruising and Skin Bleeding: - Reports frequent bruising and small skin bleeds, attributed to Eliquis use. - Regan's notes pop-up bleeders on the knee, toe, and arm, with small amounts of blood found on sheets. - Applying lotion to rough patches on the back to prevent irritation. Past medical history, appointments, medications, allergies reviewed. Previous Medical History PAST MEDICAL HISTORY Diagnosis Date 1st degree AV block 09/08/2015 AC (acromioclavicular) joint arthritis 08/09/2009 Acquired hypothyroidism 04/03/2015 Actinic skin damage 03/08/2012 Acute, but ill-defined, cerebrovascular disease 07/13/2008 Advance directive discussed with patient 03/21/2022 Discussed 02/2022 Anemia 07/24/2015 Arthritis of knee 10/30/2011 At risk for falls 05/28/2019 Atrial flutter (HCC) 06/20/2024 Seeing [facility]: Dr. Boone Atrial flutter ([facility]) 06/20/2024 Seeing [facility]: Dr. 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 Campoverde Essential hypertension Essential hypertension Familial peripheral neuropathy 06/02/2015 Gait difficulty 04/29/2016 Gastroesophageal reflux disease without esophagitis 04/03/2015 Greater trochanteric bursitis 03/20/2016 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09/04/2012 History of bladder cancer 04/09/2023 History of CVA (cerebrovascular accident) 02/2008 residual weakness in right leg History of giant cell arteritis 03/29/2008 Hx of intermediate frame tender use of blood thinners Irritated//Inflamed Seborrheic Keratosis 03/08/2012 Living will on file 03/21/2022 DPA: Sudarshan () Low back pain 01/13/2014 Low serum vitamin B12 04/16/2022 Lower urinary tract symptoms (LUTS) 08/02/2014 Lumbar stenosis with neurogenic claudication 01/13/[address] Starr Memory difficulties 04/12/2022 04/12/22 MMSE: 29/30 Mild pulmonary hypertension ([facility]) 09/22/[address] Hamilton, not able to tolerate CPAP for JESSY. 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 Pacemaker 07/22/2024 Placed 07/19/2024 by [facility] Pain in both hands 12/19/2015 Postlaminectomy syndrome 05/08/2010 Premature supraventricular beats 09/08/2015 Pulmonary nodule 08/06/[address] [facility] on 08/01/22. Repeat in 3-6 months. Multiple nodules up to 7mm in size. Right leg weakness 04/25/2014 Sebaceous cyst 06/08/2009 Stasis dermatitis of both legs 06/02/2015 SVT (supraventricular tachycardia) (HCC) 07/17/2020 SVT (supraventricular tachycardia) (HCC) 07/17/2020 Thoracic or lumbosacral neuritis or radiculitis, unspecified 05/05/2009 Thumb pain, left 11/26/2017 Tinnitus 07/26/2017 Unspecified arthropathy, lower leg 10/12/2008 Venous insufficiency (chronic) (peripheral) 06/02/2015 Vertigo following cerebrovascular accident 07/23/2010 Viral warts, unspecified 04/09/2013 Xerosis cutis 09/04/2012 Previous Surgical History PAST SURGICAL HISTORY Procedure Laterality Date 2D ECHO (EXEP) 08/2015 EF=64%, 1+ TR and mild Pulm HTN ANESTH,PACEMAKER INSERTION 07/19/2024 COLONOSCOPY FLX DX W/COLLJ SPEC WHEN PFRMD 02/06/2011 Colonoscopy, repeat 10 yrs CYSTO W/REMOVAL OF LESIONS MINOR <0.5CM 08/31/2014 ESOPHAGOGASTRODUODENOSCOPY TRANSORAL DIAGNOSTIC 12/14/2018 EGD FASCT PALM W/WO Z-PLASTY TISSUE REARGMT/SKN GRFT Left 09/08/2018 Left 3rd finger fascietomy with skin graft, left 4th finger facietomy with local soft tissue rearrangements and trigger finger release L3-4 and L4-5 laminoforaminotomy 2009 LAPAROSCOPIC CHOLECYSTECTOMY 02/25/2024 LIGATION/BIOPSY TEMPORAL ARTERY 03/30/2008 RIGHT, negitive. LUMBAR SPINE FUSION COMBINED 05/05/2015 MAL LESION FACE,EAR,EYEL 1.1-2CM 04/20/2008 Exc. right lateral islam skin lesion and right forehead OPEN REPAIR OF ROTATOR CUFF ACUTE 2000 Rotator cuff repair left PAST SURGICAL HISTORY OF ingrown toe nail removed PAST SURGICAL HISTORY OF 1965 cyst removed from bottom of spine REMOVAL GALLBLADDER 02/25/2024 SHOULDER ARTHROSCOPY/SURGERY 08/02/2010 Open Rt subacromial decompression STRESS TEST 04/10/2015 WNL STRESS TEST NUCLEAR 07/09/2018 negative Family History FAMILY HISTORY Problem Relation Age of Onset Hypertension Mother Stroke Mother other (headaches) Mother Ischemic Heart Disease Father Heart Brother Patient Allergies ALLERGIES Allergen Reactions Ditropan [Oxybutyni* Other: See Comments Nausea, brain fog, increased weakness, decreased appetite, and increased restless leg symptoms. Prednisone Other: See Comments Had GI problems, headaches. Patient states he was on high dose for almost 90 days Current Medications Current Outpatient Medications on File Prior to Visit Medication Sig finasteride (PROSCAR) 5 mg tablet Take 1 tablet by mouth once daily. gabapentin (NEURONTIN) 600 mg tablet Take 2 tablets by mouth three times a day for 180 days. levothyroxine (LEVOXYL) 175 mcg tablet Take one tab daily by mouth furosemide (LASIX) 40 mg tablet Take 1 tablet by mouth once daily. Per [facility] apixaban (ELIQUIS) 5 mg tab(s) Take 1 tablet by mouth two times a day. Per [facility] DULoxetine (CYMBALTA) 30 mg capsule Take 1 capsule by mouth once daily. lisinopril 2.5 mg tablet Take 1 tablet by mouth once daily. pravastatin (PRAVACHOL) 20 mg tablet Take 1 tablet by mouth once daily. MV with Dwg-Aljdnliu-Rgthun (CENTRUM SILVER) 0.4 mg-300 mcg- 250 mcg tab Take 1 tablet by mouth once daily. traZODone (DESYREL) 50 mg tablet Take 1 tablet by mouth daily at bedtime. tamsulosin (FLOMAX) 0.4 mg TAKE 1 CAPSULE ONE TIME DAILY 30 MINUTES AFTER THE SAME MEAL EACH DAY potassium chloride ER (KLOR-CON M20) 20 mEq tablet Take 1 tablet by mouth once daily. cyanocobalamin (VITAMIN B-12) 1,000 mcg tab Take 1 tablet by mouth once daily. vit C/E/Zn/coppr/lutein/zeaxan (PRESERVISION AREDS-2 ORAL) Take by mouth two times a day. ZINC ORAL Take 50 mg by mouth once daily. COMPOUNDED PRESCRIPTION rollator walker #: one Dx: I63.50, Z86.73, R26.89, G60.9, M62.81 and M48.06 traZODone (DESYREL) 50 mg tablet Take 1 tablet by mouth daily at bedtime. No current facility-administered medications on file prior to visit. Social History Social History Tobacco Use Smoking status: Never Passive exposure: Never Smokeless tobacco: Never Vaping Use Vaping status: Never Used Substance Use Topics Alcohol use: Not Currently Drug use: Never Review of Symptoms REVIEW OF SYSTEMS GENERAL: No weight loss, malaise or fevers NECK: Negative for lumps, goiter, pain and significant neck swelling RESPIRATORY: +dry cough. Some sob. CARDIOVASCULAR: +leg swelling. Negative for chest pain, CHF or palpitations NEURO: No history of headaches, syncope, paralysis, seizures or tremors SEE HPI EXAM: BP 102/60 (BP Site: Left Arm, BP Position: Sitting, BP Cuff Size: Large Adult) Pulse 60 Temp 36.8 C (98.3 F) Resp 18 Wt 130.6 kg (288 lb) SpO2 95% BMI 39.61 kg/m General Appearance: Well appearing, alert, in no acute distress, well-hydrated, well nourished. andObese. Skin: bruising and small abrasions noted. Neck: Supple, no adenopathy; thyroid symmetric, normal size, no bruits. Lungs: Lungs clear to auscultation. No wheezing, rhonchi, rales.. Heart: RRR without murmur, gallop, or rubs. No ectopy. Abdomen: Normal abdominal exam, Abdomen soft, non-tender. Bowel sounds normal. No masses, organomegaly. Extremities: 3+ edema on LLE and 2+ edema on RLE.. Peripheral Pulses: Normal. Health Maintenance List Shingrix Vaccine(1 of 2) Never done Advance Directive Discussion due on 06/23/2024 Depression Screening due on 10/08/2024 Anxiety Screening due on 10/08/2024 RSV Vaccine(1 - 1-dose 75+ series) due on 04/09/2025 Covid-19 Vaccine( season) due on 10/08/2025 DTaP,Tdap,Td Vaccine(2 - Td or Tdap) due on 02/01/2025 Diabetes Screening due on 09/18/2027 Influenza Vaccine Completed Pneumococcal Vaccine: 50+ Completed Data reviewed Latest Ref Rng 09/14/2024 09/17/2024 Protein, Total 6.3 - 8.0 g/dL 6.3 Albumin 3.9 - 4.9 g/dL 4.0 Calcium 8.5 - 10.2 mg/dL 9.9 9.6 Bilirubin, Total 0.2 - 1.3 mg/dL 0.4 Alkaline Phosphatase 38 - 113 U/L 88 AST 14 - 40 U/L 17 ALT 10 - 54 U/L 16 Glucose 74 - 99 mg/dL 106 (H) 97 BUN 9 - 24 mg/dL 25 (H) 30 (H) Creatinine 0.73 - 1.22 mg/dL 1.04 1.21 Sodium 136 - 144 mmol/L 146 (H) 145 (H) Potassium 3.7 - 5.1 mmol/L 4.8 4.6 Chloride 98 - 107 mmol/L 107 104 CO2 22 - 30 mmol/L 28 26 Anion Gap 8 - 15 mmol/L 11 15 eGFR >=60 mL/min/1.73m 71 59 (L) Total Cholesterol, Nonfasting <200 mg/dL 148 Triglycerides, Nonfasting <150 mg/dL 194 (H) HDL Cholesterol, Nonfasting >39 mg/dL 41 LDL Cholesterol, Nonfasting <100 mg/dL 68 Non HDL Cholesterol, Nonfasting <130 mg/dL 107 VLDL Cholesterol, Nonfasting <30 mg/dL 39 (H) Total Chol/HDL Ratio, Nonfasting <5.10 mg/dL 3.61 LDL/HDL Ratio, Nonfasting <2.54 mg/dL 1.66 Hemoglobin A1C 4.3 - 5.6 % 5.9 (H) Estimated Average Glucose mg/dL 123 TSH 0.270 - 4.200 mIU/L 9.560 (H) Vitamin B12 232 - 1,245 pg/mL 822 Legend: (H) High (L) Low Assessment and Plan 1. Essential hypertension (I10) - Blood pressure management ongoing. - Continue current antihypertensive regimen. 2. Acquired hypothyroidism (E03.9) - Recent increase in levothyroxine to 175 mcg daily. - Repeat thyroid function tests scheduled for November 15. 3. Mixed hyperlipidemia (E78.2) - Recent lipid panel shows LDL at 68 mg/dL, HDL at 41 mg/dL, and triglycerides at 194 mg/dL. - Continue current lipid-lowering therapy. - Advised dietary modifications to reduce triglyceride levels. 4. Atrial flutter, unspecified type (HCC) (I48.92) 5. Bradycardia (R00.1) 6. Pacemaker (Z95.0) - Dual-lead pacemaker implanted on July 19. - Follow-up with cardiology scheduled in October. - Continue monitoring heart rate and rhythm. 7. Mild pulmonary hypertension (HCC) (I27.20) stable continue managment 8. Hypokalemia (E87.6) recent labs wnl 9. Chronic insomnia (F51.04) stable 10. Need for vaccination (Z23) - Administered the latest pneumonia vaccine. 11. Lung nodules (R91.8) 12. Pulmonary nodule (R91.1) - Due for a CT scan in December; order placed for scheduling. 13. Elevated fasting blood sugar (R73.01) - Recent A1c increased to 5.9%. - Advised dietary modifications to reduce carbohydrate intake. 14. Low serum vitamin B12 (E53.8) - Recent B12 levels within normal range. - Continue current supplementation if applicable. 15. OAB (overactive bladder) (N32.81) stable cont with urology 16. BPH with obstruction/lower urinary tract symptoms (N40.1) continue with urology 17. Peripheral edema (R60.0) - Noted increased edema in the left lower extremity. - Currently on furosemide 40 mg daily. - Recommended knee high compression socks and leg elevation. - Monitor for any increase in edema or associated symptoms. Phoebe Muro PA-C I spent a total of 45 minutes on the date of the service which included preparing to see the patient, [id number] patient care, completing clinical documentation, obtaining and/or reviewing separately obtained history, performing a medically appropriate examination, counseling and educating the pat ient/family/caregiver, and ordering medications, tests, or procedures. Recording using ambient [employer] software for draft documentation of the visit was discussed with the patient/authorized brand representative; all questions welcomed and answered. Patient/authorized brand representative agreed to proceed documented [facility] encounterPe[facility]04-[facility]25 Telephone encounter Note * Telephone Encounter - Ange Mondragon APRN.ZENOBIA, MAREK - 10/04/2024 4:50 PM EDT The following approved medication requests have been transmitted electronically. Requested Prescriptions Pending Prescriptions Disp Refills finasteride (PROSCAR) 5 mg tablet [Pharmacy Med Name: Finasteride Oral Tablet 5 MG] 90 tablet 0 Sig: Take 1 tablet by mouth once daily. Ange Mondragon APRN.CNP, DNP [facility]04-14-2025 Miscellaneous Notes* Telephone Encounter - Ange Mondragon APRN.CNP, DNP - 10/04/2024 4:50 PM EDT The following approved medication requests have been transmitted electronically. Requested Prescriptions Pending Prescriptions Disp Refills finasteride (PROSCAR) 5 mg tablet [Pharmacy Med Name: Finasteride Oral Tablet 5 MG] 90 tablet 0 Sig: Take 1 tablet by mouth once daily. Ange Mondragon APRN.CNP, DNP documented in this encounterPeoples Hospital04-14-2025 Telephone encounter Note * Telephone Encounter - Jose Fam MD - 10/04/2024 12:40 PM EDT The following approved medication requests have been transmitted electronically. Requested Prescriptions Signed Prescriptions Disp Refills gabapentin (NEURONTIN) 600 mg tablet 540 tablet 1 Sig: Take 2 tablets by mouth three times a day for 180 days. Authorizing Provider: JOSE FAM MD [facility]04-14-2025 Miscellaneous Notes* Telephone Encounter - Jose Fam MD - 10/04/2024 12:40 PM EDT The following approved medication requests have been transmitted electronically. Requested Prescriptions Signed Prescriptions Disp Refills gabapentin (NEURONTIN) 600 mg tablet 540 tablet 1 Sig: Take 2 tablets by mouth three times a day for 180 days. Authorizing Provider: JOSE FAM MD * Telephone Encounter - Virginia Pace RN - 10/04/2024 10:21 AM EDT The patient has been identified by name and date of : Yes Caregiver verified no other encounters exist for this prescription request: Yes Caregiver confirmed with patient/requestor that no other refills are due, in the near future, with this provider at this time: Yes The last office visit in the department: 09/14/2024 Does the patient have a future office visit with this provider/department: 10/08/2024 Requested Prescriptions Pending Prescriptions Disp Refills gabapentin (NEURONTIN) 600 mg tablet 540 tablet 1 Sig: Take 2 tablets by mouth three times a day for 180 days. Virginia Pace RN October 04, 2024 10:21 AM [facility] Telephone encounter Note * Telephone Encounter - Virginia Pace RN - 10/04/2024 10:21 AM EDT The patient has been identified by name and date of : Yes Caregiver verified no other encounters exist for this prescription request: Yes Caregiver confirmed with patient/requestor that no other refills are due, in the near future, with this provider at this time: Yes The last office visit in the department: 09/14/2024 Does the patient have a future office visit with this provider/department: 10/08/2024 Requested Prescriptions Pending Prescriptions Disp Refills gabapentin (NEURONTIN) 600 mg tablet 540 tablet 1 Sig: Take 2 tablets by mouth three times a day for 180 days. Virginia Pace RN October 04, 2024 10:21 AM [facility] History of Present illness Narrative* Jose Fam MD - 10/03/2024 2:56 PM EDT Patient's home health 485 form / care plan for certification period 09/07/2024 to 11/05/2024 reviewedand signed. Relevant medical records were reviewed. Changes were communicated to home health agency documented in this encounterPe[facility]03-29-[facility]25 Miscellaneous Notes* Telephone Encounter - Taz Marie LPN - 09/18/2024 10:36 AM EDT Pt's notified of same. Taz Marie LPN * Telephone Encounter - Jose Fam MD - 09/18/2024 7:57 AM EDT Let know repeat electrolyte panel was ok. documented in this encounterPeoples [facility]03-29-2025 Telephone encounter Note * Telephone Encounter - Taz Marie LPN - 09/18/2024 10:36 AM EDT Pt's notified of same. Taz Marie LPN [facility]03-29-[facility] Telephone encounter Note* Telephone Encounter - Jose Fam MD - 09/18/2024 7:57 AM EDT Let know repeat electrolyte panel was ok. [facility] Tele[facility] encounter Note* Telephone Encounter - Noemy Washington RN - 09/16/2024 5:02 PM EDT Patient calls for clarification of levothyroxine. Advised of provider instructions and that prescription is at pharmacy. Patient voiced understanding. Noemy Washington RN [facility]03-27-[facility]25 Miscellaneous Notes* Telephone Encounter - Noemy Washington RN - 09/16/2024 5:02 PM EDT Patient calls for clarification of levothyroxine. Advised of provider instructions and that prescription is at pharmacy. Patient voiced understanding. Noemy Washington RN documented in this encounterPe[facility]03-26-2025 Telephone encounter Note * Telephone Encounter - Nick Spence MA - 09/15/2024 1:44 PM EDT Spoke with patient and and gave results and instructions. Patient voiced understanding. Nick Spence MA [facility]03-26-[facility]25 Miscellaneous Notes* Telephone Encounter - Nick Spence MA - 09/15/2024 1:44 PM EDT Spoke with patient and and gave results and instructions. Patient voiced understanding. Nick Spence MA * Telephone Encounter - Jose Fam MD - 09/15/2024 8:35 AM EDT Let , Sudarshan, know his thyroid lab is showing he is not getting enough thyroid medication. I'm going to change him to 175 mcg and just one a day Fri- Friday. New script sent and order placed to repeat thyroid lab in two months. His kidney functions and potassium are ok but his sodium is slightly elevated. Want to repeat in the next week. Does not need to fast. Order placed. The rest of his labs will be reviewed at his appt on 10/08/2024. documented in this encounterCleveland [id number] Telephone encounter Note * Telephone Encounter - Jose Fam MD - 09/15/2024 8:35 AM EDT Let , Sudarshan, know his thyroid lab is showing he is not getting enough thyroid medication. I'm going to change him to 175 mcg and just one a day Fri- Friday. New script sent and order placed to repeat thyroid lab in two months. His kidney functions and potassium are ok but his sodium is slightly elevated. Want to repeat in the next week. Does not need to fast. Order placed. The rest of his labs will be reviewed at his appt on 10/08/2024. [facility]03-[facility] Instructions * Patient Instructions* Jose Fam MD - 09/14/2024 12:12 PM EDT Please get over the counter Lamisil or Lotrimin and apply three times a day to shoulder rash till gone and then for one more week. documented in this encounterPeoples Hospital03-25-2025 History of Present illness Narrative* Jose Fam MD - 09/14/2024 11:20 AM EDT Transitional Care Management TCM Eligibility Documentation The following information was gathered during patient outreach 09/06/2024 09/06/2024 Date of Outreach: Outreach Attempt 1: Contact Made Date of Discharge 09/04/2024 09/04/2024 Provider Documentation Regan Arango is a 83 year old male here today for a follow up from recent hospitalization. I have reviewed the patient's hospital course including discharge summary, discharge medications , and follow up needs with the patient and any family members present at today's visit. HPI Patient was admitted for pace maker placement and then released to rehab for strengthening and nursing care since he was not allowed to use the Lt arm for six weeks and his would not be able to care for him at home on her own. Patient did have a EGD while he was in the TCU. They were not able to dilate due to the esophagus being in a constat of state of spasm. So Botox was administered. He has been doing ok. Swallowing seems better. Gets some tickles in the throat and coughs. Patient was prescribed lasix and advised to contact cardiology regarding this for refills. This hashelped decrease the swelling in his legs. Has not had electrolytes followed up on. Patient is at home and getting PHYSICAL THERAPY at home Mon, Wed, Fri. Patient is getting around with the use of the walker. Patient also doing HEP. Has a rash on the right shoulder and seems to have gotten larger. Developed will in TCU. Not itching. Has been using a prescript strength cortisone but not getting smaller and seems to have gotten larger. PHYSICAL EXAMINATION BP 120/68 Pulse 60 Resp 18 Wt 127 kg (280 lb) SpO2 94% BMI 38.51 kg/m Last 6 Encounter Wt Readings: Date: Wt: 09/14/2024 127 kg (280 lb) 07/14/2024 132.5 kg (292 lb) 07/01/2024 126.6 kg (279 lb) 06/22/2024 130.2 kg (287 lb) 05/28/2024 130.2 kg (287 lb) 04/22/2024 129.7 kg (286 lb) GENERAL: well appearing, alert, in no acute distress HEART: regular rate and rhythm. No murmur, rubs or gallops. LUNGS: clear to auscultation, no wheezing, rhonchi, or crackles ABDOMEN: soft, non-tender, non-distended, no masses or organomegaly EXTREMITIES: no edema on the right and mild edema on the left. Markedly improved from base line. Skin: has a rash on the right lateral shoulder with erythematous scaly margin with central clearingthat looks like ring worm. A/P ASSESSMENT/PLAN: 1. Bradycardia - ICD9: 427.89, ICD10: R00.1 (primary diagnosis) - patient has pacemaker and follows up with cardio. 2. Atrial flutter, unspecified type (HCC) - ICD9: 427.32, ICD10: I48.92 - cont current meds per cardio including anticoagulation. 3. Balance problem - ICD9: 781.99, ICD10: R26.89 - patient to continue use of walker and since it's a hardship to leave his home he does have HHC with PHYSICAL THERAPY. 4. Gait difficulty - ICD9: 781.2, ICD10: R26.9 - see HPI 5. Tinea corporis - ICD9: 110.5, ICD10: B35.4 Advised on use of OTC Lamisil or Lotrimin 3 times a day till rash resolved and the for one more week. 6. Bilateral leg edema - ICD9: 782.3, ICD10: R60.0 - legs look much better. Discussed elevating while at home and sitting. - patient to cont lasix. Jose Fam MD documented in this encounterPeoples Hospital03-25-2025 [facility]03-[facility]-2025 [facility]03-[facility] History of Present illness Narrative* Tiffany Mary - 09/14/2024 10:03 AM EDT POPULATION HEALTH NAVIGATION OUTREACH Action/FYI Patient outreach for HCC; AWV. Appointment note updated. Updated Follow up/ not Hospital ER visit due to addressing more critical issues at that appointment. Reason for Outreach Care Gap/HCC or Scheduling Wellness Visits Care Gaps due: Medicare Annual Wellness Visit Patient Contacted: Unable or unnecessary to reach patient: [employer] message sent HCC related Updated appointment notes Navigation Signature: Tiffany Mustafa September 14, 2024 10:03 AM documented in this encounterPeoples Hospital03-20-2025 Telephone encounter Note * Telephone Encounter - Maikel Hale RN - 09/09/2024 2:18 PM EDT Desire- OT- [facility] reporting POC: will see pt 1 x week for 1 week, then 2 x's week for 3 weeks, for equipment training for dressing and washing windows. No call back needed. [facility]03-[facility] Miscellaneous Notes* Telephone Encounter - Maikel Hale RN - 09/09/2024 2:18 PM EDT Desire- OT- [facility] reporting POC: will see pt 1 x week for 1 week, then 2 x's week for 3 weeks, for equipment training for dressing and washing windows. No call back needed. documented in this encounterPeoples Hospital03-19-2025 [facility]03-[facility] History of Present illness Narrative* Nick Spence MA - 09/08/2024 5:03 PM EDT Scan on 09/02/2024 7:35 PM by ProviderTerrance, PA-C: Consultation - Emergency Medicine Scan on 09/03/2024 3:29 PM by ProviderTerrance, PA-C: Consultation - PT/OT/Speech Nick Spence MA documented in this encounterPeoples Hospital03-19-2025 Telephone encounter Note * Telephone Encounter - Noemy Washington RN - 09/08/2024 1:22 PM EDT Kathy PT calling from [facility] to report plan of care for patient and Physical therapy will visit patient 1 time a week for 1 week and 2 times a week for 3 weeks. Physical Therapy will work with patient on lower extremity strength, gait training and balance. No call back needed. Noemy Washington RN [facility]03-19-2025 Miscellaneous Notes* Telephone Encounter - Noemy Washington RN - 09/08/2024 1:22 PM EDT Kathy PT calling from [facility] to report plan of care for patient and Physical therapy will visit patient 1 time a week for 1 week and 2 times a week for 3 weeks. Physical Therapy will work with patient on lower extremity strength, gait training and balance. No call back needed. Noemy Washington RN documented in this encounterPeoples Hospital03-18-2025 Telephone encounter Note * Telephone Encounter - Maikel Hale RN - 09/07/2024 12:54 PM EDT Unique- nurse- [facility] HH- reporting SN POC: will see pt 1 x week for 4 weeks for education - medication, fall prevention, and new pacemaker. Pt will also have PT & OT and they will also call in POC. No callback needed. [facility]03-[facility] Miscellaneous Notes* Telephone Encounter - Maikel Hale RN - 09/07/2024 12:54 PM EDT Hadye nurse- [facility] HH- reporting SN POC: will see pt 1 x week for 4 weeks for education - medication, fall prevention, and new pacemaker. Pt will also have PT & OT and they will also call in POC. No callback needed. documented in this encounterPeoples Hospital03-17-2025 [facility]03-[facility]25 History of Present illness Narrative* Selene Jones RN - 09/06/2024 4:05 PM EDT TRANSITION CARE MANAGEMENT (TCM) INITIAL CONTACT Rn Radiation Oncology Outreach Provider Action/FYI: Pt denies any needs at this time. He has HH coming. Initial contact with patient post discharge, spoke to patient. Patient identified by name and . TRANSITION CARE MANAGEMENT INITIAL OUTREACH DOCUMENTATION: 09/06/2024 09/06/2024 Date of Outreach: Outreach Attempt 1: Contact Made Date of Discharge 09/04/2024 09/04/2024 SUMMARY: -Pt discharged from [facility] TCU on 09/04/24. -Admitted for: Had a Pacemaker implanted. 07/19/24, Couldn't use L arm for 6 week had arm in sling, (legs weren't working well (strengthening leg and improving balance). Do you have a hospital follow up appointment with your PCP? Appointment on 09/14/[address] Fam. Yes. Remind patient of appointment date, time, and location. If not within 14 calendar days of discharge - please reschedule accordingly. MEDICATIONS: Many patients have questions or concerns about their medications once they are home. Were you prescribed any new medications? Yes Lasix 40 mg daily, Pt was told to call Cardiology. Were you told to hold any medications? No Were any of your medications discontinued? No Do you have any questions about getting or taking your medications? No Your discharge instructions/After visit Summary (AVS) are important in guiding you through the recovery process. Is there anything I might help you understand? No Do you have all the necessary equipment and supplies at home? Yes Medical records from recent hospitalization: Requested from outside hospital documented in this encounterPeoples Hospital03-17-2025 Telephone encounter Note * Telephone Encounter - Selene Jones RN - 09/06/2024 4:02 PM EDT Called and left a detailed voicemail notifying [place] marketing coordinator - [facility] of providers message. Clinic phone number was left in case she had any questions. Selene Jones RN [facility]03-17-2025 Miscellaneous Notes* Telephone Encounter - Selene Jones RN - 09/06/2024 4:02 PM EDT Called and left a detailed voicemail notifying [place] marketing coordinator - [facility] of providers message. Clinic phone number was left in case she had any questions. Selene Jones RN * Telephone Encounter - Jose Fam MD - 09/06/2024 3:30 PM EDT Let Kathy know I will follow but F2F order should have been signed by provider caring for patient in [facility] TCU and felt she qualified for [facility] services. * Telephone Encounter - Maikel Hale RN - 09/06/2024 2:22 PM EDT Kathy- [facility]- reports patient was discharged from [facility] TCU on 09/04/24 with orders for C- SN PT OT. Reports patient was in hospital having a pacemaker placed. Asking if pcp is agreeable to follow for SN PT OT. Please phone Kathy with verbal: [phone] documented in this encounterPeoples Hospital03-17-2025 Telephone encounter Note * Telephone Encounter - Jose Fam MD - 09/06/2024 3:30 PM EDT Let Kathy know I will follow but F2F order should have been signed by provider caring for patient in [facility] TCU and felt she qualified for [facility] services. [facility] Telephone encounter Note* Telephone Encounter - Maikel Hale RN - 09/06/2024 2:22 PM EDT Kathy- [facility] HH- reports patient was discharged from [facility] TCU on 09/04/24 with orders for C- SN PT OT. Reports patient was in hospital having a pacemaker placed. Asking if pcp is agreeable to follow for SN PT OT. Please phone Kathy with verbal: [phone] [facility]03-[facility]25 Discharge summary Author [facility] Note Date/Time September 02, 2024 7:2 7pm [facility] Medical Records Department [address] [place] [address] Discharge Summary 09/02/241918 MR#: [id number] Acct: [id number] Name: REGAN ARANGO Rep #:[id number] : 1940 83 From: Simeon iGfford MD PCP: Dr. Jose Fam MD Status:ADM IN Location: [place] [address] Providers Date of Admission: 07/22/24 Primary Care Physician: Dr. Jose Fam MD Consultations 07/26/24 17:27 Consult: Gastroenterology Routine Consulting Provider: [facility] Reason for Consult: Esophageal stricture. EMERGENT Consult: No MD Notified: Yes Date Notified: 07/26/24 Time Notified: 17:27 Method of Notification: Text Reason For Visit: [employer] VR LEADLESS PACEMAKER IMPLANT Diagnosis Discharge Diagnosis (1) Debility: Status: Acute Code(s): R53.81 - Other malaise (2) Sick sinus syndrome: Status: Chronic Code(s): I49.5 - Sick sinus syndrome (3) Status post cardiac pacemaker procedure: Status: Inactive Code(s): Z95.0 - Presence of cardiac pacemaker (4) Persistent atrial fibrillation: Status: Ruled-out Code(s): I48.19 - Other persistent atrial fibrillation (5) Mobitz (type) I (Wenckebach's) atrioventricular block: Status: Chronic Code(s): I44.1 - Atrioventricular block, second degree (6) Neuropathy: Status: Acute Code(s): G62.9 - Polyneuropathy, unspecified (7) Imbalance: Status: Acute Code(s): R26.89 - Other abnormalities of gait and mobility (8) Essential (primary) hypertension: Status: Acute Code(s): I10 - Essential (primary) hypertension (9) SVT (supraventricular tachycardia): Status: Acute Code(s): I47.10 - Supraventricular tachycardia, unspecified (10) Stroke: Status: Acute Code(s): I63.9 - Cerebral infarction, unspecified (11) Hyperlipidemia: Status: Acute Code(s): E78.5 - Hyperlipidemia, unspecified (12) BPH (benign prostatic hyperplasia): Status: Acute Code(s): N40.0 - Benign prostatic hyperplasia without lower urinary tract symptoms (13) Insomnia: Status: Acute Code(s): G47.00 - Insomnia, unspecified (14) Depression: Status: Acute Code(s): F32.A - Depression, unspecified (15) Hypokalemia: Status: Acute Code(s): E87.6 - Hypokalemia (16) Hypothyroidism: Status: Acute Code(s): E03.9 - Hypothyroidism, unspecified Plan 83 year old male with recent diagnosis of atrial fibrillation, second degree AV block Type 1, sick sinus syndrome, bradycardia, hospitalized for permanent pacemaker placement 07/19/[address] Boone, complicated by chronic neuropathy,imbalance, admitted to TCU with debility, here for rehabilitation, strengthening, prior to discharge home with . * Debility - PT/OT. * Pain - Tylenol 1000mg q6 prn pain (1-10). * Bowel - senna/colace 1 tablet bid prn, Magnesium citrate 300mL daily prn. * Adult immunization - Administer pneumonia vaccine, covid vaccine, flu vaccine as appropriate. * DVT prophylaxis - Eliquis. * Atrial fibrillation with bradycardia status post pacemaker placement - Eliquis 5mg bid. * Vitamin B12 deficiency - B12 1000mcg daily. * Neuropathy - Duloxetine 30mg daily, Gabapentin 1800mg q12. * BPH - Finasteride 5mg daily, Tamsulosin 0.4mg daily. * Chronic HFpEF - Lisinopril 2.5mg daily, Furosemide 40mg daily, monitor bmp. * Hypothyroidism - Levothyroxine 125mcg daily 5 days per week, 250mcg daily 2 days per week. * Macular degeneration - Healthy Eyes 1 capsule bid. * Nutrition - MVI 1 tablet daily. * Hypokalemia - KCL 20meq daily. * Hyperlipidemia - Pravastatin 20mg qhs. * Insomnia - Trazodone 50mg qhs, stable chronic intermediate frame tender use, GDR not recommended. * Zinc deficiency - Zinc 50mg daily. * Tinea Corporis - Clotrimazole topical bid, Nystatin powder topical bid. * Cough - Robitussin DM 10ml q6 prn. Medications at Discharge Home Medications pravastatin 20 mg tablet 20 mg PO QHS Cholesterol 05/09/15 tamsulosin 0.4 mg capsule 0.4 mg PO DAILY Urine retention 05/09/15 trazodone 50 mg tablet 50 mg PO QHS sleep 05/09/15 cyanocobalamin (vitamin B-12) 1,000 mcg tablet 1,000 mcg PO DAILY supplement 04/14/24 duloxetine 30 mg capsule,delayed release 30 mg PO DAILY . 04/14/24 finasteride 5 mg tablet 5 mg PO DAILY BPH 04/14/24 gabapentin 600 mg tablet 1,800 mg PO Q12H neuropathy 04/14/24 zvbwomps-sa-aavxw 300 mcg-K 60 mcg-lycop 600 mcg-lutein 300 mcg tablet (Centrum Silver Men) 1 tab PO DAILY supplement 04/14/24 potassium chloride 20 mEq tablet,extended release(part/cryst) 20 meq PO DAILY supplement 04/14/24 vitamins A,C,Y-sbai-awpnrx 2,148 mcg-113 mg-45 mg-17.4 mg tablet (Eye Multivitamin) 1 tab PO BID supplement 04/14/24 levothyroxine 125 mcg tablet 125 mcg PO MOTUWETHFR Thyroid 06/08/24 levothyroxine 200 mcg capsule 250 mcg PO SUSA Thyroid 06/08/24 zinc gluconate 50 mg tablet 50 mg PO DAILY supplement 06/08/24 lisinopril 2.5 mg tablet 2.5 mg PO DAILY BP 06/14/24 apixaban 5 mg tablet (Eliquis) 5 mg PO BID #0 tabs 09/02/24 furosemide 40 mg tablet 40 mg PO DAILY 30 days #30 tabs 09/02/24 Hospital Course Operations - (Pacemaker implantation.) Procedures EGD Summary of Care Provided Minutes Spent on Discharge: 35 Hospital Course: 83 year old male with recent diagnosis of atrial fibrillation, second degree AV block Type 1, sick sinus syndrome, bradycardia, hospitalized for permanent pacemaker placement 07/19/[address] Boone, complicated by chronic neuropathy,imbalance, admitted to TCU with debility, here for rehabilitation, strengthening, prior to discharge home with . 07/27/2024 Dr. Campoverde EGD: Impressions : - Abnormal esophageal motility, established achalasia. Injected with botulinum toxin. - Small hiatal hernia. - No gross lesions in the first portion of the duodenum. - No specimens collected. Discharge home with 09/04/2024, [facility] PT/OT/SN/SW. Physical Exam Const alert General Appearance: cooperative HEENT normocephalic Eyes PERRL and EOMs intact bilaterally Neck supple, no JVD and no carotid bruits Resp normal respiratory effort, normal air movement and clear to auscultation bilaterally Cardio regular rate and regular rhythm GI normal to inspection, nondistended, normoactive bowel sounds, non-tender and non-distended Extremity normal capillary refill General Extremity: Negative for edema Skin no rashes or lesions noted General Skin Exam: no breakdown Psych affect normal Appearance: appropriate Weight / BMI Weight Weight: 125.101 kg Body Mass Index (BMI) 38.5 ABG / Lab / Microbiology Data 08/31/24 10:05 08/31/24 10:05 Microbiology: Microbiology 08/11/24 Unknown Nasal Secretion SARS-CoV-2 Antigen (Rapid) - Final 08/04/24 05:33 Nasal Secretion SARS-CoV-2 Antigen (Rapid) - Final D/C Instructions Discharge Diet: No restrictions Discharge Activity: Return to Normal Activity, May Shower and Use Walker Weight Bearing Status: Weight bearing as tolerated Call your doctor if you observe: Fever of 101 or Higher, Inability to urinate, Inability to have a bowel movement, Shortness of breath, Dizziness, Fainting spells, Swelling in the ankles, Chest pain and Uncontrolled pain DC O2, CPAP, BIPAP Needs Home O2 Discharge instructions: No Additional Instructions: Discharge home with 09/04/2024, [facility] PT/OT/SN/SW. Please Follow Up With: Jana Virgen When: As scheduled. Meaningful Use Info Meaningful Use Meaningful Use Diagnoses (Choose all that apply): None applicable Ischemic Stroke Statin Dosing Therapy Reference: STATIN DOSE THERAPY REFERENCE: * Patients > 75 years receive moderate or high dose statin therapy. * Patients 75 years or YOUNGER should receive HIGH intensity statin dose unless contraindicated. You will be required to document reason for non-treatment if statin daily dose does not meet guidelines. HIGH DOSE STATIN THERAPY DAILY Atorvastatin > than or = to 40 mg Rosuvastatin > than or = to 20 mg Amlodipine + Atorvastatin > than or = to 2.5/40 mg Ezetimibe + Simvastatin 10/80 mg Simvastatin 80mg Discharge Plan Admission Admit Date/Time: 07/22/24 10:18 Primary Reason for Your Visit: Debility. Attending Provider: Simeon Gifford Chi Primary Care Provider: Jose Fam Instructions Additional Instructions / Restrictions: Discharge home with 09/04/2024, [facility] PT/OT/SN/SW. Discharge Orders/Prescriptions Prescriptions: New furosemide 40 mg Tablet 40 mg PO DAILY 30 Days Qty: 30 0RF Eliquis 5 mg Tablet 5 mg PO BID Qty: 0 0RF Continued cyanocobalamin (vitamin B-12) 1,000 mcg tablet 1,000 mcg PO DAILY potassium chloride 20 mEq tablet,ER particles/crystals 20 meq PO DAILY finasteride 5 mg tablet 5 mg PO DAILY duloxetine 30 mg capsule,delayed release(DR/EC) 30 mg PO DAILY lisinopril 2.5 mg tablet 2.5 mg PO DAILY trazodone 50 MG tablet 50 mg PO QHS Patient Comments: sleep tamsulosin 0.4 MG capsule 0.4 mg PO DAILY Patient Comments: prostate pravastatin 20 MG tablet 20 mg PO QHS Patient Comments: cholesterol Eye Multivitamin 2,148 mcg-113 mg-45 mg-17.4mg tablet 1 tab PO BID Rx Instructions: administer with AM and PM meals Centrum Silver Men [id number] mcg tablet 1 tab PO DAILY gabapentin 600 mg tablet 1,800 mg PO Q12H levothyroxine 125 mcg tablet 125 mcg PO MOTUWETHFR levothyroxine 200 mcg capsule 250 mcg PO SUSA zinc gluconate 50 mg tablet 50 mg PO DAILY Discontinued Eliquis 5 mg tablet 5 mg PO BID Qty: 60 3RF furosemide 20 mg tablet 20 mg PO QODAY Referrals / Follow Up: Jana Virgen [Registered Nurse] - 08/30/24 1:30 pm (6 week port implant pacemaker check) Jose Fam MD [Primary Care Provider] - 09/14/24 11:20 am Malika Montesinos PA [Med Staff - Adv Practice Prof] - 11/18/24 10:30 am Disposition Disposition (needs filled in before D/C Order can be placed): Home Health Service 09/02/241926 <Electronically signed by Simeon Gifford MD> Cosigner Signature (if applicable): CC: Dr. Jose Fam MD; Dr. Simeon Gifford MD~ Signed [facility] Work Phone: [phone] 307-116503-13-2025 Discharge summary [facility] Medical Records Department [address] [place] [address] Discharge Summary 09/02/249 MR#: [id number] Acct: [id number] Name: REGAN ARANGO Rep #:[id number] : 1940 83 From: Simeon Gifford MD PCP: Dr. Jose Fam MD Status:ADM IN Location: [place] [address] Providers Date of Admission: 07/22/24 Primary Care Physician: Dr. Jose Fam MD Consultations 07/26/24 17:27 Consult: Gastroenterology Routine Consulting Provider: [facility] Reason for Consult: Esophageal stricture. EMERGENT Consult: No MD Notified: Yes Date Notified: 07/26/24 Time Notified: 17:27 Method of Notification: Text Reason For Visit: [employer] VR LEADLESS PACEMAKER IMPLANT Diagnosis Discharge Diagnosis (1) Debility: Status: Acute Code(s): R53.81 - Other malaise (2) Sick sinus syndrome: Status: Chronic Code(s): I49.5 - Sick sinus syndrome (3) Status post cardiac pacemaker procedure: Status: Inactive Code(s): Z95.0 - Presence of cardiac pacemaker (4) Persistent atrial fibrillation: Status: Ruled-out Code(s): I48.19 - Other persistent atrial fibrillation (5) Mobitz (type) I (Wenckebach's) atrioventricular block: Status: Chronic Code(s): I44.1 - Atrioventricular block, second degree (6) Neuropathy: Status: Acute Code(s): G62.9 - Polyneuropathy, unspecified (7) Imbalance: Status: Acute Code(s): R26.89 - Other abnormalities of gait and mobility (8) Essential (primary) hypertension: Status: Acute Code(s): I10 - Essential (primary) hypertension (9) SVT (supraventricular tachycardia): Status: Acute Code(s): I47.10 - Supraventricular tachycardia, unspecified (10) Stroke: Status: Acute Code(s): I63.9 - Cerebral infarction, unspecified (11) Hyperlipidemia: Status: Acute Code(s): E78.5 - Hyperlipidemia, unspecified (12) BPH (benign prostatic hyperplasia): Status: Acute Code(s): N40.0 - Benign prostatic hyperplasia without lower urinary tract symptoms (13) Insomnia: Status: Acute Code(s): G47.00 - Insomnia, unspecified (14) Depression: Status: Acute Code(s): F32.A - Depression, unspecified (15) Hypokalemia: Status: Acute Code(s): E87.6 - Hypokalemia (16) Hypothyroidism: Status: Acute Code(s): E03.9 - Hypothyroidism, unspecified Plan 83 year old male with recent diagnosis of atrial fibrillation, second degree AV block Type 1, sick sinus syndrome, bradycardia, hospitalized for permanent pacemaker placement 07/19/[address] Boone, complicated by chronic neuropathy,imbalance, admitted to TCU with debility, here for rehabilitation, strengthening, prior to discharge home with . * Debility - PT/OT. * Pain - Tylenol 1000mg q6 prn pain (1-10). * Bowel - senna/colace 1 tablet bid prn, Magnesium citrate 300mL daily prn. * Adult immunization - Administer pneumonia vaccine, covid vaccine, flu vaccine as appropriate. * DVT prophylaxis - Eliquis. * Atrial fibrillation with bradycardia status post pacemaker placement - Eliquis 5mg bid. * Vitamin B12 deficiency - B12 1000mcg daily. * Neuropathy - Duloxetine 30mg daily, Gabapentin 1800mg q12. * BPH - Finasteride 5mg daily, Tamsulosin 0.4mg daily. * Chronic HFpEF - Lisinopril 2.5mg daily, Furosemide 40mg daily, monitor bmp. * Hypothyroidism - Levothyroxine 125mcg daily 5 days per week, 250mcg daily 2 days per week. * Macular degeneration - Healthy Eyes 1 capsule bid. * Nutrition - MVI 1 tablet daily. * Hypokalemia - KCL 20meq daily. * Hyperlipidemia - Pravastatin 20mg qhs. * Insomnia - Trazodone 50mg qhs, stable chronic long-term use, GDR not recommended. * Zinc deficiency - Zinc 50mg daily. * Tinea Corporis - Clotrimazole topical bid, Nystatin powder topical bid. * Cough - Robitussin DM 10ml q6 prn. Medications at Discharge Home Medications pravastatin 20 mg tablet 20 mg PO QHS Cholesterol 05/09/15 tamsulosin 0.4 mg capsule 0.4 mg PO DAILY Urine retention 05/09/15 trazodone 50 mg tablet 50 mg PO QHS sleep 05/09/15 cyanocobalamin (vitamin B-12) 1,000 mcg tablet 1,000 mcg PO DAILY supplement 04/14/24 duloxetine 30 mg capsule,delayed release 30 mg PO DAILY . 04/14/24 finasteride 5 mg tablet 5 mg PO DAILY BPH 04/14/24 gabapentin 600 mg tablet 1,800 mg PO Q12H neuropathy 04/14/24 jxeinafr-rb-rxvtx 300 mcg-K 60 mcg-lycop 600 mcg-lutein 300 mcg tablet (Centrum Silver Men) 1 tab PO DAILY supplement 04/14/24 potassium chloride 20 mEq tablet,extended release(part/cryst) 20 meq PO DAILY supplement 04/14/24 vitamins A,C,B-sjnm-opfrhm 2,148 mcg-113 mg-45 mg-17.4 mg tablet (Eye Multivitamin) 1 tab PO BID supplement 04/14/24 levothyroxine 125 mcg tablet 125 mcg PO MOTUWETHFR Thyroid 06/08/24 levothyroxine 200 mcg capsule 250 mcg PO SUSA Thyroid 06/08/24 zinc gluconate 50 mg tablet 50 mg PO DAILY supplement 06/08/24 lisinopril 2.5 mg tablet 2.5 mg PO DAILY BP 06/14/24 apixaban 5 mg tablet (Eliquis) 5 mg PO BID #0 tabs 09/02/24 furosemide 40 mg tablet 40 mg PO DAILY 30 days #30 tabs 09/02/24 Hospital Course Operations - (Pacemaker implantation.) Procedures EGD Summary of Care Provided Minutes Spent on Discharge: 35 Hospital Course: 83 year old male with recent diagnosis of atrial fibrillation, second degree AV block Type 1, sick sinus syndrome, bradycardia, hospitalized for permanent pacemaker placement 07/19/[address] Boone, complicated by chronic neuropathy,imbalance, admitted to TCU with debility, here for rehabilitation, strengthening, prior to discharge home with . 07/27/2024 Dr. Campoverde EGD: Impressions : - Abnormal esophageal motility, established achalasia. Injected with botulinum toxin. - Small hiatal hernia. - No gross lesions in the first portion of the duodenum. - No specimens collected. Discharge home with 09/04/2024, [facility] PT/OT/SN/SW. Physical Exam Const alert General Appearance: cooperative HEENT normocephalic Eyes PERRL and EOMs intact bilaterally Neck supple, no JVD and no carotid bruits Resp normal respiratory effort, normal air movement and clear to auscultation bilaterally Cardio regular rate and regular rhythm GI normal to inspection, nondistended, normoactive bowel sounds, non-tender and non-distended Extremity normal capillary refill General Extremity: Negative for edema Skin no rashes or lesions noted General Skin Exam: no breakdown Psych affect normal Appearance: appropriate Weight / BMI Weight Weight: 125.101 kg Body Mass Index (BMI) 38.5 ABG / Lab / Microbiology Data 08/31/24 10:05 08/31/24 10:05 Microbiology: Microbiology 08/11/24 Unknown Nasal Secretion SARS-CoV-2 Antigen (Rapid) - Final 08/04/24 05:33 Nasal Secretion SARS-CoV-2 Antigen (Rapid) - Final D/C Instructions Discharge Diet: No restrictions Discharge Activity: Return to Normal Activity, May Shower and Use Walker Weight Bearing Status: Weight bearing as tolerated Call your doctor if you observe: Fever of 101 or Higher, Inability to urinate, Inability to have a bowel movement, Shortness of breath, Dizziness, Fainting spells, Swelling in the ankles, Chest pain and Uncontrolled pain DC O2, CPAP, BIPAP Needs Home O2 Discharge instructions: No Additional Instructions: Discharge home with 09/04/2024, [facility] PT/OT/SN/SW. Please Follow Up With: Jana Virgen When: As scheduled. Meaningful Use Info Meaningful Use Meaningful Use Diagnoses (Choose all that apply): None applicable Ischemic Stroke Statin Dosing Therapy Reference: STATIN DOSE THERAPY REFERENCE: * Patients > 75 years receive moderate or high dose statin therapy. * Patients 75 years or YOUNGER should receive HIGH intensity statin dose unless contraindicated. You will be required to document reason for non-treatment if statin daily dose does not meet guidelines. HIGH DOSE STATIN THERAPY DAILY Atorvastatin > than or = to 40 mg Rosuvastatin > than or = to 20 mg Amlodipine + Atorvastatin > than or = to 2.5/40 mg Ezetimibe + Simvastatin 10/80 mg Simvastatin 80mg Discharge Plan Admission Admit Date/Time: 07/22/24 10:18 Primary Reason for Your Visit: Debility. Attending Provider: Simeon Gifford Chi Primary Care Provider: Jose Fam Instructions Additional Instructions / Restrictions: Discharge home with 09/04/2024, [facility] PT/OT/SN/SW. Discharge Orders/Prescriptions Prescriptions: New furosemide 40 mg Tablet 40 mg PO DAILY 30 Days Qty: 30 0RF Eliquis 5 mg Tablet 5 mg PO BID Qty: 0 0RF Continued cyanocobalamin (vitamin B-12) 1,000 mcg tablet 1,000 mcg PO DAILY potassium chloride 20 mEq tablet,ER particles/crystals 20 meq PO DAILY finasteride 5 mg tablet 5 mg PO DAILY duloxetine 30 mg capsule,delayed release(DR/EC) 30 mg PO DAILY lisinopril 2.5 mg tablet 2.5 mg PO DAILY trazodone 50 MG tablet 50 mg PO QHS Patient Comments: sleep tamsulosin 0.4 MG capsule 0.4 mg PO DAILY Patient Comments: prostate pravastatin 20 MG tablet 20 mg PO QHS Patient Comments: cholesterol Eye Multivitamin 2,148 mcg-113 mg-45 mg-17.4mg tablet 1 tab PO BID Rx Instructions: administer with AM and PM meals Centrum Silver Men [id number] mcg tablet 1 tab PO DAILY gabapentin 600 mg tablet 1,800 mg PO Q12H levothyroxine 125 mcg tablet 125 mcg PO MOTUWETHFR levothyroxine 200 mcg capsule 250 mcg PO SUSA zinc gluconate 50 mg tablet 50 mg PO DAILY Discontinued Eliquis 5 mg tablet 5 mg PO BID Qty: 60 3RF furosemide 20 mg tablet 20 mg PO QODAY Referrals / Follow Up: Jana Virgen [Registered Nurse] - 08/30/24 1:30 pm (6 week port implant pacemaker check) Jose Fam MD [Primary Care Provider] - 09/14/24 11:20 am Malika Montesinos PA [Med Staff - Adv Practice Prof] - 11/18/24 10:30 am Disposition Disposition (needs filled in before D/C Order can be placed): Home Health Service 09/02/241926 Cosigner Signature (if applicable): CC: Dr. Jose Fam MD; Dr. Simeon Gifford MD~ Signed [facility]03-13-2025 [facility]03-03-2025 NoteHNO ID: [id number] Author: NICK SPENCE MA Service: ? Author Type: Rn Radiation Oncology Type: Progress Notes Filed: 08/23/2024 16:31 Note Text: Scan on 08/19/2024 3:54 PM by Provider, ALESSIO Carlos: Ultrasound Nick Spence [facility]03-03-2025 History of Present illness Narrative* Nick Spence MA - 08/23/2024 4:31 PM EST Scan on 08/19/2024 3:54 PM by Provider, ALESSIO Carlos: Ultrasound Nick Spence MA [facility] Progress note Author Simeon Gifford [facility] Note Date/Time August 20, 2024 6:45am [facility] Medical Records Department [address] [place] [id number] Progress Note - [facility] 08/16/24 1527 MR#: [id number] Acct: [id number] Name: REGAN ARANGO Rep #:[id number] : 1940 83 From: Simeon Gifford MD PCP: Dr. Jose Fam MD Status:ADM IN Location: [place] [address] Subjective Subjective Resident seen, examined for regulatory visit. He has been noticing more swelling in bilateral lower extremities, Furosemide was increased from 20mg every other day to 20mg daily and now to 40mg daily, monitor renal function withbloodwork. JOSE A wraps to bilateral lower extremities, resident sleeps in recliner, unable to elevated legs any higher. He notes worse swelling on left lower extremity, will order Doppler ultrasound LLE. Objective Data Objective Data Vital Signs: Vital Signs Temp Pulse Resp BP Pulse Ox O2 Del Method 98.2 F 61 16 119/52 L 94 Room Air 08/16/24 13:30 08/16/24 13:30 08/16/24 13:30 08/16/24 13:30 08/16/24 13:30 08/16/24 13:30 Oxygen Delivery Method Room Air Weight: 130.136 kg Body Mass Index (BMI) 40.0 Intake & Output: Intake and Output for Last 24 Hours 08/14/24 08/15/24 08/16/24 23:59 23:59 23:59 Intake Total 800 / 800 660 / 660 680 / 680 Output Total 800 / 800 200 / 200 Balance 800 / 800 -140 / -140 480 / 480 Lab / Micro Data 08/13/24 05:25 08/13/24 05:25 Micro: Microbiology 08/11/24 Unknown Nasal Secretion SARS-CoV-2 Antigen (Rapid) - Final 08/04/24 05:33 Nasal Secretion SARS-CoV-2 Antigen (Rapid) - Final Physical Exam Const alert General Appearance: cooperative HEENT normocephalic Eyes PERRL and EOMs intact bilaterally Neck supple, no JVD and no carotid bruits Resp normal respiratory effort, normal air movement and clear to auscultation bilaterally Cardio regular rate and regular rhythm GI normal to inspection, nondistended, normoactive bowel sounds, non-tender and non-distended Extremity normal capillary refill Extremity Narrative: Bilateral lower extremity swelling, left > right. General Extremity: edema bilateral (2+) Skin no rashes or lesions noted General Skin Exam: no breakdown Neuro moves all extremities Psych affect normal Appearance: appropriate Assessment & Plan Assessment/Plan (1) Debility: (2) Sick sinus syndrome: (3) Status post cardiac pacemaker procedure: (4) Persistent atrial fibrillation: (5) Mobitz (type) I (Wenckebach's) atrioventricular block: (6) Neuropathy: (7) Imbalance: (8) Essential (primary) hypertension: (9) SVT (supraventricular tachycardia): (10) Stroke: (11) Hyperlipidemia: (12) BPH (benign prostatic hyperplasia): (13) Insomnia: (14) Depression: (15) Hypokalemia: (16) Hypothyroidism: PLAN: Plan 83 year old male with recent diagnosis of atrial fibrillation, second degree AV block Type 1, sick sinus syndrome, bradycardia, hospitalized for permanent pacemaker placement 07/19/[address] Boone, complicated by chronic neuropathy,imbalance, admitted to TCU with debility, here for rehabilitation, strengthening, prior to discharge home with . * Debility - PT/OT. * Pain - Tylenol 1000mg q6 prn pain (1-10). * Bowel - senna/colace 1 tablet bid prn, Magnesium citrate 300mL daily prn. * Adult immunization - Administer pneumonia vaccine, covid vaccine, flu vaccine as appropriate. * DVT prophylaxis - Eliquis. * Atrial fibrillation with bradycardia status post pacemaker placement - Eliquis 5mg bid. * Vitamin B12 deficiency - B12 1000mcg daily. * Neuropathy - Duloxetine 30mg daily, Gabapentin 1800mg q12. * BPH - Finasteride 5mg daily, Tamsulosin 0.4mg daily. * Chronic HFpEF - Lisinopril 2.5mg daily, Furosemide 40mg daily, monitor bmp. * Hypothyroidism - Levothyroxine 125mcg daily 5 days per week, 250mcg daily 2 days per week. * Macular degeneration - Healthy Eyes 1 capsule bid. * Nutrition - MVI 1 tablet daily. * Hypokalemia - KCL 20meq daily. * Hyperlipidemia - Pravastatin 20mg qhs. * Insomnia - Trazodone 50mg qhs, stable chronic long-term use, GDR not recommended. * Zinc deficiency - Zinc 50mg daily. * Tinea Corporis - Clotrimazole topical bid, Nystatin powder topical bid. * Cough - Robitussin DM 10ml q6 prn. 08/16/24 1531 <Electronically signed by Simeon Gifford MD> Cosigner Signature (if applicable): CC: ~ Signed ADDENDUM by Dr. Simeon Gifford MD on 08/20/24 at 0745 Addendum Pseudogout right knee - unable to use steroid 2/2 prednisone allergy. Order colchicine 0.6mg daily x 7 days, add Pantoprazole 40mg daily x 7 days stomach protection. 08/20/24 0745<Electronically signed by Simeon Gifford MD> Cosigner Signature (if applicable): cc: ~* Signed [facility] Work Phone: [phone]) 709-836502-28-2025 Progress note [facility] Medical Records Department [address] [place] [address] Progress Note - [facility] 08/16/24 1527 MR#: [id number] Acct: [id number] Name: REGAN ARANGO Rep #:[id number] : 1940 83 From: Simeon Gifford MD PCP: Dr. Jose Fam MD Status:ADM IN [facility] Subjective Subjective Resident seen, examined for regulatory visit. He has been noticing more swelling in bilateral lowerextremities, Furosemide was increased from 20mg every other day to 20mg daily and now to 40mg daily, monitor renal function withbloodwork. JOSE A wraps to bilateral lower extremities, resident sleeps inrecliner, unable to elevated legs any higher. He notes worse swelling on left lower extremity, will order Doppler ultrasound LLE. Objective Data Objective Data Vital Signs: Vital Signs Temp Pulse Resp BP Pulse Ox O2 Del Method 98.2 F 61 16 119/52 L 94 Room Air 08/16/24 13:30 08/16/24 13:30 08/16/24 13:30 08/16/24 13:30 08/16/24 13:30 08/16/24 13:30 Oxygen Delivery Method Room Air Weight: 130.136 kg Body Mass Index (BMI) 40.0 Intake & Output: Intake and Output for Last 24 Hours 08/14/24 08/15/24 08/16/24 23:59 23:59 23:59 Intake Total 800 / 800 660 / 660 680 / 680 Output Total 800 / 800 200 / 200 Balance 800 / 800 -140 / -140 480 / 480 Lab / Micro Data 08/13/24 05:25 08/13/24 05:25 Micro: Microbiology 08/11/24 Unknown Nasal Secretion SARS-CoV-2 Antigen (Rapid) - Final 08/04/24 05:33 Nasal Secretion SARS-CoV-2 Antigen (Rapid) - Final Physical Exam Const alert General Appearance: cooperative HEENT normocephalic Eyes PERRL and EOMs intact bilaterally Neck supple, no JVD and no carotid bruits Resp normal respiratory effort, normal air movement and clear to auscultation bilaterally Cardio regular rate and regular rhythm GI normal to inspection, nondistended, normoactive bowel sounds, non-tender and non-distended Extremity normal capillary refill Extremity Narrative: Bilateral lower extremity swelling, left > right. General Extremity: edema bilateral (2+) Skin no rashes or lesions noted General Skin Exam: no breakdown Neuro moves all extremities Psych affect normal Appearance: appropriate Assessment & Plan Assessment/Plan (1) Debility: (2) Sick sinus syndrome: (3) Status post cardiac pacemaker procedure: (4) Persistent atrial fibrillation: (5) Mobitz (type) I (Wenckebach's) atrioventricular block: (6) Neuropathy: (7) Imbalance: (8) Essential (primary) hypertension: (9) SVT (supraventricular tachycardia): (10) Stroke: (11) Hyperlipidemia: (12) BPH (benign prostatic hyperplasia): (13) Insomnia: (14) Depression: (15) Hypokalemia: (16) Hypothyroidism: PLAN: Plan 83 year old male with recent diagnosis of atrial fibrillation, second degree AV block Type 1, sick sinus syndrome, bradycardia, hospitalized for permanent pacemaker placement 07/19/[address] Boone, complicated by chronic neuropathy,imbalance, admitted to TCU with debility, here for rehabilitation, strengthening, prior to discharge home with . * Debility - PT/OT. * Pain - Tylenol 1000mg q6 prn pain (1-10). * Bowel - senna/colace 1 tablet bid prn, Magnesium citrate 300mL daily prn. * Adult immunization - Administer pneumonia vaccine, covid vaccine, flu vaccine as appropriate. * DVT prophylaxis - Eliquis. * Atrial fibrillation with bradycardia status post pacemaker placement - Eliquis 5mg bid. * Vitamin B12 deficiency - B12 1000mcg daily. * Neuropathy - Duloxetine 30mg daily, Gabapentin 1800mg q12. * BPH - Finasteride 5mg daily, Tamsulosin 0.4mg daily. * Chronic HFpEF - Lisinopril 2.5mg daily, Furosemide 40mg daily, monitor bmp. * Hypothyroidism - Levothyroxine 125mcg daily 5 days per week, 250mcg daily 2 days per week. * Macular degeneration - Healthy Eyes 1 capsule bid. * Nutrition - MVI 1 tablet daily. * Hypokalemia - KCL 20meq daily. * Hyperlipidemia - Pravastatin 20mg qhs. * Insomnia - Trazodone 50mg qhs, stable chronic intermediate frame tender use, GDR not recommended. * Zinc deficiency - Zinc 50mg daily. * Tinea Corporis - Clotrimazole topical bid, Nystatin powder topical bid. * Cough - Robitussin DM 10ml q6 prn. 08/16/24 1941 Cosigner Signature (if applicable): CC: ~ Signed ADDENDUM by Dr. Simeon Gifford MD on 08/20/24 at 0745 Addendum Pseudogout right knee - unable to use steroid 2/2 prednisone allergy. Order colchicine 0.6mg daily x 7 days, add Pantoprazole 40mg daily x 7 days stomach protection. 08/20/24 0745 Cosigner Signature (if applicable): cc: ~* Signed [facility]02-27-2025 Radiology Diagnostic study note [facility] Imaging Services [address] [place] [address] Knee 4 or More Views MR#: [id number] Acct: [id number] Name: REGAN ARANGO Rep #: [id number] : 1940 M 83 From: Gordon Archibald DO PCP: Dr. Jose Fam MD Status: ADM IN Study:Knee 4 or More Views Date of Exam: 08/19/24 Exam# [id number] Ordering Dr: Simeon Gifford MD PROCEDURE: Right knee radiographs REASON FOR EXAM: Pain TECHNIQUE: Four views of the right knee COMPARISON: None. FINDINGS: See impression RAD/Knee 4 or More Views IMPRESSION: Negative for acute fracture or dislocation. Moderate tricompartmental osteoarthritis. Chondrocalcinosis consistent with CPPD. Moderate knee joint effusion. Superior patellar enthesopathy. Vascular calcifications. Reading Location: [facility] CC: Dr. Jose Fam MD; Dr. Simeon Gifford MD ~ Sterile Process Coordinator: Signed [facility]02-25-2025 NoteHNO ID: [id number] Author: TAZ MARIE LPN Service: ? Author Type: LICENSED NURSE Type: Progress Notes Filed: 08/17/2024 14:35 Note Text: Scan on 08/17/2024 2:15 PM by Terrance Haas PA-C[facility] History of Present illness Narrative* Taz Marie LPN - 08/17/2024 2:34 PM EST Scan on 08/17/2024 2:15 PM by Terrance Haas PASolangeC: Ultrasound [facility] Telephone encounter Note * Telephone Encounter - Selene Jones RN - 08/02/2024 4:30 PM EST Pts called and is notified of providers message. Pt voices understanding. Had meeting with and states that he has been approved to stay until 08/06/24. She states after that they will have to see about approval again or if he will have to transfer. Selene Jones RN [facility]02-10-20[facility] Miscellaneous Notes* Telephone Encounter - Selene Jones RN - 08/02/2024 4:30 PM EST Pts called and is notified of providers message. Pt voices understanding. Had meeting with and states that he has been approved to stay until 08/06/24. She states after that they will have to see about approval again or if he will have to transfer. Selene Jones RN * Telephone Encounter - Jose Fam MD - 08/02/2024 3:53 PM EST I have not heard anything bad about either of the two care centers mentioned. * Telephone Encounter - Nick Spence MA - 08/02/2024 3:29 PM EST Spoke with patient's on needed PCU follow up. indicated that Regan had the 2-lead pacemaker. Did great went from the OT to PCU standard with overnight stay. They determined for patient not to go home and be referred to TCU because patient has to have his left arm in a sling due to not be able to use because of the pacemaker temporarily. Because patient doesn't have good lower body strength and needs both arms to lift himself he becamehigher risk for falls. Due to restricted left arm mobility. They waiting director of social work they received a referral to TCU. Patient is currently getting PT/OT. He requires 2 people and lift belt to help patient up. They are [place] [facility] [place] [facility] for further rehab. die storage worker gave names of facilities. After discussion with the kids. They have narrowed down to [facility] or [facility]. is asking for any input on these facilities that Dr. Fam may have. They should know by when and where patient will be going. Also while patient was there Dr. Campoverde was able to do the esophagus procedure, however, instead ofdilating. He did a injection of botox. Patient seems to be doing good. Would be home if not the left arm restriction. Nick Spence MA [facility]02-[facility] Telephone encounter Note * Telephone Encounter - Jose Fam MD - 08/02/2024 3:53 PM EST I have not heard anything bad about either of the two care centers mentioned. [facility] Telephone encounter Note* Telephone Encounter - Nick Spence MA - 08/02/2024 3:29 PM EST Spoke with patient's on needed PCU follow up. indicated that Regan had the 2-lead pacemaker. Did great went from the OT to PCU standard with overnight stay. They determined for patient not to go home and be referred to TCU because patient has to have his left arm in a sling due to not be able to use because of the pacemaker temporarily. Because patient doesn't have good lower body strength and needs both arms to lift himself he becamehigher risk for falls. Due to restricted left arm mobility. They waiting director of social work they received a referral to TCU. Patient is currently getting PT/OT. He requires 2 people and lift belt to help patient up. They are waiting for possible [place] [facility] referral for further rehab. die storage worker gave names of facilities. After discussion with the kids. They have narrowed down to [facility] or [facility]. is asking for any input on these facilities that Dr. Fam may have. They should know by when and where patient will be going. Also while patient was there Dr. Nirali was able to do the esophagus procedure, however, instead ofdilating. He did a injection of botox. Patient seems to be doing good. Would be home if not the left arm restriction. Nick Spence MA [facility]02-07-2025 NoteHNO ID: [id number] Author: TAZ MARIE LPN Service: ? Author Type: LICENSED NURSE Type: Progress Notes Filed: 07/30/2024 07:38 Note Text: Scan on 07/29/2024 5:33 PM by ProviderTerrance [facility] History of Present illness Narrative* Taz Marie LPN - 07/30/2024 7:37 AM EST Scan on 07/29/2024 5:33 PM by ProviderTerrance PA-C documented in [facility]Pe[facility] History and physical note Author Simeon Gifford [facility] Note Date/Time July 29, 2024 4 :20pm [facility] Medical Records Department [address] [place] [id number] History & Physical Exam 07/22/241945 MR#: [id number] Acct: [id number] Name: REGAN ARANGO Rep #:[id number] 5 : 1940 83 From: Simeon Gifford MD PCP: Dr. Jose Fam MD Status:ADM IN Location: [facility] TCU12-1 HPI - General General Date of Admission: 07/22/24 Date of Service: 07/22/24 Chief Complaint: Here for rehabilitation. HPI Narrative REGAN ARANGO, is a 83 Male who presents with followin06/09/2024 New onset atrial flutter, 24 hour Holter showed 100% flutter. History of Hypertension, SVT, Stroke on Plavix. 14 day monitor showed second degree AV block Type 1. Average heart rate 50, minimum heart rate 30, maximum heart rate 96. Patient has fatigue. Heart rate as low as 20, on no rate limiting medications. Start Eliquis for atrial fibrillation, pacemaker recommended. 07/19/2024 Admit [facility]. 07/19/2024 Dr. Boone performed placement of permanent pacemaker. 07/20/2024 Pre-CERT TCU. 07/21/2024 PT/OT TCU. Patien has chronic neuropathy of bilateral lower extremities. He has numbness and difficulty with proprioception, he also has difficulty with balance. Due to PPM, his left upper extremity is sling, and patient requires strength from bilateral upper extremities to help him transfer, walk, go to bathroom. His elderly is unable to lift him. Safer to rehab first, then go home. 07/22/2024 Admit to TCU with debility, here for rehabilitation, strengthening, prior to discharge home with . [facility] Medical History (Updated 07/22/24 @ 19:[address] Simeon Gifford MD) Sick sinus syndrome Paroxysmal atrial fibrillation Persistent atrial fibrillation Mobitz (type) I (Wenckebach's) atrioventricular block Prostate disease Excessive bleeding Gastric reflux Neuropathy Wears glasses Cancer Thyroid disease Arthritis Hx of bladder cancer Bladder disease Restless legs Back pain Injury of head and neck Syncope Difficulty swallowing Non-smoker TIA (transient ischemic attack) History of pain when walking History of edema History of stress test Cardiology follow-up encounter Esophageal dysphagia High cholesterol Hypertension Home Medications ?Medication ?Instructions ?Recorded ?Last Taken ?Type pravastatin 20 mg tablet 20 mg PO QHS Cholesterol Unknown History tamsulosin 0.4 mg capsule 0.4 mg PO DAILY Urine retent ion 05/09/15 Unknown History trazodone 50 mg tablet 50 mg PO QHS sleep 05/09/15 Unknown History cyanocobalamin (vitamin B-12) 1,000 mcg PO DAILY suppl ement 04/14/24 Unknown History 1,000 mcg tablet duloxetine 30 mg capsule,delayed 30 mg PO DAILY . 03/24 09/13 Unknown History release finasteride 5 mg tablet 5 mg PO DAILY BPH 04/14/24 U nknown History gabapentin 600 mg tablet 1,800 mg PO Q12H neuropathy 04/14/24 07/19/24 History rvmpautt-qy-vpkzj 300 mcg-K 60 1 tab PO DAILY suppleme nt 04/14/24 Unknown History mcg-lycop 600 mcg-lutein 300 mcg tablet (Centrum Silver Men) potassium chloride 20 mEq 20 meq PO DAILY supplement 1 Unknown History tablet,extended release(part/cryst) vitamins A,C,N-vgsj-weucmo 2,148 1 tab PO BID suppleme nt 04/14/24 Unknown History mcg-113 mg-45 mg-17.4 mg tablet (Eye Multivitamin) furosemide 20 mg tablet 20 mg PO QODAY Fluid retenti on 06/08/24 Unknown History levothyroxine 125 mcg tablet 125 mcg PO MOTUWETHFR Thy roid 06/08/24 07/19/24 History levothyroxine 200 mcg capsule 250 mcg PO SUSA Thyroid 06/08/24 Unknown History zinc gluconate 50 mg tablet 50 mg PO DAILY supplement 06/08/24 Unknown History apixaban 5 mg tablet (Eliquis) 5 mg PO BID Blood thinn er #60 tabs 06/14/24 Unknown Rx Held on 07/22/24. Instructions: Hold Eliquis until pacer check in office by cardiology lisinopril 2.5 mg tablet 2.5 mg PO DAILY BP 06/14/24 07/19/24 History Allergy/AdvReac Type Severity Reaction Status Date / Time oxybutynin (From Ditropan) Allergy Intermediate Nausea/Vom/ Verified 06/17/24 15:14 Diarrhea prednisone AdvReac Nausea Verified 06/17/24 15:14 Surgical History (Updated 07/22/24 @ 19:[address] Simeon Gifford MD) History of permanent cardiac pacemaker placement History of esophagogastroduodenoscopy (EGD) History of laparoscopic cholecystectomy Hx of colonoscopy Hx of repair of left rotator cuff Hx of repair of right rotator cuff Hx of microdiscectomy History of lumbar spinal fusion Social History (Updated 07/22/24 @ 19:[address] Simeon Gifford MD) household members: spouse Smoking Status: Never smoker alcohol intake: never substance use type: does not use ROS Constitutional Constitutional: Reports weakness; Denies chills, fever(s) or weight gain ENT HEENT: Denies headache(s), nasal congestion or nasal discharge Cardiovascular Cardiovascular: Denies chest pain or palpitations Respiratory/Chest Respiratory/Chest: Denies cough, excessive phlegm production or shortness of breath with exertion Gastrointestinal Gastrointestinal: Denies abdominal pain, nausea or vomiting Genitourinary Genitourinary: Denies dysuria Musculoskeletal Musculoskeletal: Denies joint pain or joint swelling Integumentary Integumentary: Denies rash or wounds Neurologic Neurologic: Denies focal weakness, numbness or tingling Psychiatric Psychiatric: Denies anxiety, auditory hallucinations, depression, homicidal ideation or suicidal ideation Vital Signs Vital Signs Vital Signs: 07/22/24 10:38 07/22/24 17:00 Temperature 97.2 F L Temperature Source Temporal Pulse Rate 60 Pulse Rhythm Regular Pulse Strength Normal (2+) Respiratory Rate 16 Respiratory Effort Normal Non-Labored Respiratory Depth Normal Respiratory Pattern Normal Blood Pressure 118/83 H Blood Pressure Mean 94 Pulse Ox 95 Oxygen Delivery Method Room Air Room Air Weight Weight: 128.367 kg Body Mass Index (BMI) 39.4 Physical Exam Const alert General Appearance: cooperative HEENT normocephalic Eyes PERRL and EOMs intact bilaterally Neck supple, no JVD and no carotid bruits Resp normal respiratory effort, normal air movement and clear to auscultation bilaterally Cardio regular rate and regular rhythm GI normal to inspection, nondistended, normoactive bowel sounds, non-tender and non-distended Extremity normal capillary refill Extremity Narrative: Left upper extremity sling. General Extremity: Negative for edema Skin no rashes or lesions noted General Skin Exam: no breakdown Neuro moves all extremities Psych affect normal Appearance: appropriate Assessment & Plan Assessment/Plan (1) Debility: (2) Sick sinus syndrome: (3) Status post cardiac pacemaker procedure: (4) Persistent atrial fibrillation: (5) Mobitz (type) I (Wenckebach's) atrioventricular block: (6) Neuropathy: (7) Imbalance: (8) Essential (primary) hypertension: (9) SVT (supraventricular tachycardia): (10) Stroke: (11) Hyperlipidemia: (12) BPH (benign prostatic hyperplasia): (13) Insomnia: (14) Depression: (15) Hypokalemia: (16) Hypothyroidism: PLAN: Plan 83 year old male with recent diagnosis of atrial fibrillation, second degree AV block Type 1, sick sinus syndrome, bradycardia, hospitalized for permanent pacemaker placement 07/19/[address] Boone, complicated by chronic neuropathy,imbalance, admitted to TCU with debility, here for rehabilitation, strengthening, prior to discharge home with . * Debility - PT/OT. * Pain - Tylenol 1000mg q6 prn pain (1-10). * Bowel - senna/colace 1 tablet bid, Magnesium citrate 300mL daily prn. * Adult immunization - Administer pneumonia vaccine, covid vaccine, flu vaccine as appropriate. * DVT prophylaxis - Eliquis held until pacer check with cardiology. * Atrial fibrillation with bradycardia status post pacemaker placement - Hold Eliquis 5mg bid until pacer check with Cardiology. * Vitamin B12 deficiency - B12 1000mcg daily. * Neuropathy - Duloxetine 30mg daily, Gabapentin 1800mg q12. * BPH - Finasteride 5mg daily, Tamsulosin 0.4mg daily. * Chronic HFpEF - Lisinopril 2.5mg daily, Furosemide 20mg every other day. * Hypothyroidism - Levothyroxine 125mcg daily 5 days per week, 250mcg daily 2 days per week. * Macular degeneration - Healthy Eyes 1 capsule bid. * Nutrition - MVI 1 tablet daily. * Hypokalemia - KCL 20meq daily. * Hyperlipidemia - Pravastatin 20mg qhs. * Insomnia - Trazodone 50mg qhs, stable chronic long-term use, GDR not recommended. * Zinc deficiency - Zinc 50mg daily. 07/22/242006 <Electronically signed by Simeon Gifford MD> Cosigner Signature (if applicable): CC: Dr. Jose Fam MD; Dr. Simeon Gifford MD~ Signed ADDENDUM by Dr. Simeon Gifford MD on 07/29/24 at 1720 Addendum Right leg pain - Doppler ultrasound negative DVT, but showed lateral gastrocnemius 4cm x 1cm hematoma/seroma, resident is tender in this area, but noredness, warmth or signs of infection. Resident denies trauma, reassured resident and resident should resolve on its own, to let me know if the painworsens. 07/29/24 1720<Electronically signed by Simeon Gifford MD> Cosigner Signature (if applicable): cc: Dr. Jose Fam MD; Dr. Simeon Gifford MD ~* Signed [facility] Work Phone: [phone] 130-299602-06-2025 History and physical note [facility] Medical Records Department [address] [place] [address] History & Physical Exam 07/22/241945 MR#: [id number] Acct: [id number] Name: REGAN ARANGO Rep #:[id number] 5 : 1940 83 From: Simeon Gifford MD PCP: Dr. Jose Fam MD Status:ADM IN Location: TCU [address] - General General Date of Admission: 07/22/24 Date of Service: 07/22/24 Chief Complaint: Here for rehabilitation. HPI Narrative REGAN ARANGO, is a 83 Male who presents with followin06/09/2024 New onset atrial flutter, 24 hour Holter showed 100% flutter. History of Hypertension, SVT, Stroke on Plavix. 14 day monitor showed second degree AV block Type 1. Average heart rate 50, minimum heart rate 30, maximum heart rate 96. Patient has fatigue. Heart rate as low as 20, on no rate limiting medications. Start Eliquis for atrial fibrillation, pacemaker recommended. 07/19/2024 Admit [facility]. 07/19/2024 Dr. Boone performed placement of permanent pacemaker. 07/20/2024 Pre-CERT TCU. 07/21/2024 PT/OT TCU. Patien has chronic neuropathy of bilateral lower extremities. He has numbness and difficulty with proprioception, he also has difficulty with balance. Due to PPM, his left upper extremity is sling, and patient requires strength from bilateral upper extremities to help him transfer, walk, go to bathroom. His elderly is unable to lift him. Safer to rehab first, then go home. 07/22/2024 Admit to TCU with debility, here for rehabilitation, strengthening, prior to discharge home with . [facility] Medical History (Updated 07/22/24 @ 19:[address] Simeon Gifford MD) Sick sinus syndrome Paroxysmal atrial fibrillation Persistent atrial fibrillation Mobitz (type) I (Wenckebach's) atrioventricular block Prostate disease Excessive bleeding Gastric reflux Neuropathy Wears glasses Cancer Thyroid disease Arthritis Hx of bladder cancer Bladder disease Restless legs Back pain Injury of head and neck Syncope Difficulty swallowing Non-smoker TIA (transient ischemic attack) History of pain when walking History of edema History of stress test Cardiology follow-up encounter Esophageal dysphagia High cholesterol Hypertension Home Medications ?Medication ?Instructions ?Recorded ?Last Taken ?Type pravastatin 20 mg tablet 20 mg PO QHS Cholesterol Unknown History tamsulosin 0.4 mg capsule 0.4 mg PO DAILY Urine retent ion 05/09/15 Unknown History trazodone 50 mg tablet 50 mg PO QHS sleep 05/09/15 Unknown History cyanocobalamin (vitamin B-12) 1,000 mcg PO DAILY suppl ement 04/14/24 Unknown History 1,000 mcg tablet duloxetine 30 mg capsule,delayed 30 mg PO DAILY . 03/24 09/13 Unknown History release finasteride 5 mg tablet 5 mg PO DAILY BPH 04/14/24 U nknown History gabapentin 600 mg tablet 1,800 mg PO Q12H neuropathy 04/14/24 07/19/24 History shswrbio-xv-jlkcj 300 mcg-K 60 1 tab PO DAILY suppleme nt 04/14/24 Unknown History mcg-lycop 600 mcg-lutein 300 mcg tablet (Centrum Silver Men) potassium chloride 20 mEq 20 meq PO DAILY supplement 1 Unknown History tablet,extended release(part/cryst) vitamins A,C,B-qhna-sbhkbo 2,148 1 tab PO BID suppleme nt 04/14/24 Unknown History mcg-113 mg-45 mg-17.4 mg tablet (Eye Multivitamin) furosemide 20 mg tablet 20 mg PO QODAY Fluid retenti on 06/08/24 Unknown History levothyroxine 125 mcg tablet 125 mcg PO MOTUWETHFR Thy roid 06/08/24 07/19/24 History levothyroxine 200 mcg capsule 250 mcg PO SUSA Thyroid 06/08/24 Unknown History zinc gluconate 50 mg tablet 50 mg PO DAILY supplement 06/08/24 Unknown History apixaban 5 mg tablet (Eliquis) 5 mg PO BID Blood thinn er #60 tabs 06/14/24 Unknown Rx Held on 07/22/24. Instructions: Hold Eliquis until pacer check in office by cardiology lisinopril 2.5 mg tablet 2.5 mg PO DAILY BP 06/14/24 07/19/24 History Allergy/AdvReac Type Severity Reaction Status Date / Time oxybutynin (From Ditropan) Allergy Intermediate Nausea/Vom/ Verified 06/17/24 15:14 Diarrhea prednisone AdvReac Nausea Verified 06/17/24 15:14 Surgical History (Updated 07/22/24 @ 19:[address] Simeon Gifford MD) History of permanent cardiac pacemaker placement History of esophagogastroduodenoscopy (EGD) History of laparoscopic cholecystectomy Hx of colonoscopy Hx of repair of left rotator cuff Hx of repair of right rotator cuff Hx of microdiscectomy History of lumbar spinal fusion Social History (Updated 07/22/24 @ 19:[address] Simeon Gifford MD) household members: spouse Smoking Status: Never smoker alcohol intake: never substance use type: does not use ROS Constitutional Constitutional: Reports weakness; Denies chills, fever(s) or weight gain ENT HEENT: Denies headache(s), nasal congestion or nasal discharge Cardiovascular Cardiovascular: Denies chest pain or palpitations Respiratory/Chest Respiratory/Chest: Denies cough, excessive phlegm production or shortness of breath with exertion Gastrointestinal Gastrointestinal: Denies abdominal pain, nausea or vomiting Genitourinary Genitourinary: Denies dysuria Musculoskeletal Musculoskeletal: Denies joint pain or joint swelling Integumentary Integumentary: Denies rash or wounds Neurologic Neurologic: Denies focal weakness, numbness or tingling Psychiatric Psychiatric: Denies anxiety, auditory hallucinations, depression, homicidal ideation or suicidal ideation Vital Signs Vital Signs Vital Signs: 07/22/24 10:38 07/22/24 17:00 Temperature 97.2 F L Temperature Source Temporal Pulse Rate 60 Pulse Rhythm Regular Pulse Strength Normal (2+) Respiratory Rate 16 Respiratory Effort Normal Non-Labored Respiratory Depth Normal Respiratory Pattern Normal Blood Pressure 118/83 H Blood Pressure Mean 94 Pulse Ox 95 Oxygen Delivery Method Room Air Room Air Weight Weight: 128.367 kg Body Mass Index (BMI) 39.4 Physical Exam Const alert General Appearance: cooperative HEENT normocephalic Eyes PERRL and EOMs intact bilaterally Neck supple, no JVD and no carotid bruits Resp normal respiratory effort, normal air movement and clear to auscultation bilaterally Cardio regular rate and regular rhythm GI normal to inspection, nondistended, normoactive bowel sounds, non-tender and non-distended Extremity normal capillary refill Extremity Narrative: Left upper extremity sling. General Extremity: Negative for edema Skin no rashes or lesions noted General Skin Exam: no breakdown Neuro moves all extremities Psych affect normal Appearance: appropriate Assessment & Plan Assessment/Plan (1) Debility: (2) Sick sinus syndrome: (3) Status post cardiac pacemaker procedure: (4) Persistent atrial fibrillation: (5) Mobitz (type) I (Wenckebach's) atrioventricular block: (6) Neuropathy: (7) Imbalance: (8) Essential (primary) hypertension: (9) SVT (supraventricular tachycardia): (10) Stroke: (11) Hyperlipidemia: (12) BPH (benign prostatic hyperplasia): (13) Insomnia: (14) Depression: (15) Hypokalemia: (16) Hypothyroidism: PLAN: Plan 83 year old male with recent diagnosis of atrial fibrillation, second degree AV block Type 1, sick sinus syndrome, bradycardia, hospitalized for permanent pacemaker placement 07/19/[address] Boone, complicated by chronic neuropathy,imbalance, admitted to TCU with debility, here for rehabilitation, strengthening, prior to discharge home with . * Debility - PT/OT. * Pain - Tylenol 1000mg q6 prn pain (1-10). * Bowel - senna/colace 1 tablet bid, Magnesium citrate 300mL daily prn. * Adult immunization - Administer pneumonia vaccine, covid vaccine, flu vaccine as appropriate. * DVT prophylaxis - Eliquis held until pacer check with cardiology. * Atrial fibrillation with bradycardia status post pacemaker placement - Hold Eliquis 5mg bid untilpacer check with Cardiology. * Vitamin B12 deficiency - B12 1000mcg daily. * Neuropathy - Duloxetine 30mg daily, Gabapentin 1800mg q12. * BPH - Finasteride 5mg daily, Tamsulosin 0.4mg daily. * Chronic HFpEF - Lisinopril 2.5mg daily, Furosemide 20mg every other day. * Hypothyroidism - Levothyroxine 125mcg daily 5 days per week, 250mcg daily 2 days per week. * Macular degeneration - Healthy Eyes 1 capsule bid. * Nutrition - MVI 1 tablet daily. * Hypokalemia - KCL 20meq daily. * Hyperlipidemia - Pravastatin 20mg qhs. * Insomnia - Trazodone 50mg qhs, stable chronic long-term use, GDR not recommended. * Zinc deficiency - Zinc 50mg daily. 07/22/242006 Cosigner Signature (if applicable): CC: Dr. Jose Fam MD; Dr. Simeon Gifford MD~ Signed ADDENDUM by Dr. Simeon Gifford MD on 07/29/24 at 1720 Addendum Right leg pain - Doppler ultrasound negative DVT, but showed lateral gastrocnemius 4cm x 1cm hematoma/seroma, resident is tender in this area, but noredness, warmth or signs of infection. Resident denies trauma, reassured resident and resident should resolve on its own, to let me know if the pa inworsens. 07/29/24 1720 Cosigner Signature (if applicable): cc: Dr. Jose Fam MD; Dr. Simeon Gifford MD ~* Signed [facility]02-06-2025 NoteHNO ID: [id number] Author: TAZ MARIE LPN Service: ? Author Type: LICENSED NURSE Type: Progress Notes Filed: 07/29/2024 07:47 Note Text: Scan on 07/29/2024 3:05 AM by ProviderTerrance PA-C: [facility] History of Present illness Narrative* Taz Marie LPN - 07/29/2024 7:46 AM EST Scan on 07/29/2024 3:05 AM by Terrance Haas PA-C: Ultrasound [facility] Telephone encounter Note * Telephone Encounter - Ange Mondragon APRN.CNP, DNP - 07/28/2024 9:32 AM EST The following approved medication requests have been transmitted electronically. Requested Prescriptions Pending Prescriptions Disp Refills finasteride (PROSCAR) 5 mg tablet [Pharmacy Med Name: Finasteride Oral Tablet 5 MG] 90 tablet 0 Sig: Take 1 tablet by mouth once daily. Ange Mondragon APRN.CNP, DNP [facility]02-05-2025 Miscellaneous Notes* Telephone Encounter - Ange Mondragon APRN.MAREK FREGOSO - 07/28/2024 9:32 AM EST The following approved medication requests have been transmitted electronically. Requested Prescriptions Pending Prescriptions Disp Refills finasteride (PROSCAR) 5 mg tablet [Pharmacy Med Name: Finasteride Oral Tablet 5 MG] 90 tablet 0 Sig: Take 1 tablet by mouth once daily. Ange Mondragon APRN.MAREK FREGOOS documented in this encounterPe[facility]02-[facility]25 [facility] History of Present illness Narrative* Taz Marie LPN - 07/28/2024 7:10 AM EST Scan on 07/27/2024 4:18 PM by ProviderTerrance PA-C: EGD Scan on 07/27/2024 2:55 PM by ProviderTerrance PA-C: Consultation - GI Scan on 07/27/2024 2:58 PM by ProviderTerrance PA-C documented in this encounterPe[facility]02-[facility]25 Consult note Author Valente Friend [facility] Note Date/Time July 27, 2024 1 :48pm [facility] Medical Records Department [address] [place] [id number] Consultation - GI 07/26/24 1740 MR#: [id number] Acct: [id number] Name: REGAN ARANGO Rep #:[id number] : 1940 83 From: Valente Campoverde DO PCP: Dr. Jose Fam MD Status:ADM IN Location: [facility] TCU12-1 HPI Consult Data Date of Consult: 07/27/24 HPI Narrative Reason for Consultation: Dysphagia HPI Narrative: REGAN ARANGO, is a 83 M hx of dysphagia but it was well controlled for a time period. Pt underwent EGD with dilation 9.7. and this helped with his dysphagiafor some time. A few months ago he started again with sensation of food in his esophagus and choking episodes. He was recently hospitalized for what was believed to be aspiration pneumonia. He denies abdominal pain, n/v, constipation, diarrhea or melena. He was supposed to undergo an EGD with esophageal dilation. However he was discovered to be in new onset atrial fibrillation/a flutter and the procedure was canceled. He also has a hx of a TIA and is on Plavix. He did have a 14-day event monitor in 2022 which did demonstrate 1 episode of second-degree AV block type I. He isnot on any rate limiting medications. He was last seen by them in November 2023. Ptsts that he was told that he was just a hair away of needing a PPM. Patient presented to the emergency room on 06/09/2024 with new onset of atrial flutter. Patient was not symptomatic with his onset of atrial flutter. He wasalso documented as having heart rates into the 20s so it was decided to put a permanent pacemaker. He was sent to the transitional care unit due to some balance issues along with some neuropathy. I was consulted to see him regarding his esophageal dysphagia. [facility] Medical History Sick sinus syndrome Paroxysmal atrial fibrillation Persistent atrial fibrillation Mobitz (type) I (Wenckebach's) atrioventricular block Prostate disease Excessive bleeding Gastric reflux Neuropathy Wears glasses Cancer Thyroid disease Arthritis Hx of bladder cancer Bladder disease Restless legs Back pain Injury of head and neck Syncope Difficulty swallowing Non-smoker TIA (transient ischemic attack) History of pain when walking History of edema History of stress test Cardiology follow-up encounter Esophageal dysphagia High cholesterol Hypertension Home Medications ?Medication ?Instructions ?Recorded ?Last Taken ?Type pravastatin 20 mg tablet 20 mg PO QHS Cholesterol Unknown History tamsulosin 0.4 mg capsule 0.4 mg PO DAILY Urine retent ion 05/09/15 Unknown History trazodone 50 mg tablet 50 mg PO QHS sleep 05/09/15 Unknown History cyanocobalamin (vitamin B-12) 1,000 mcg PO DAILY suppl ement 04/14/24 Unknown History 1,000 mcg tablet duloxetine 30 mg capsule,delayed 30 mg PO DAILY . 03/24 09/13 Unknown History release finasteride 5 mg tablet 5 mg PO DAILY BPH 04/14/24 U nknown History gabapentin 600 mg tablet 1,800 mg PO Q12H neuropathy 04/14/24 07/19/24 History mgecesof-dy-slfhg 300 mcg-K 60 1 tab PO DAILY suppleme nt 04/14/24 Unknown History mcg-lycop 600 mcg-lutein 300 mcg tablet (Centrum Silver Men) potassium chloride 20 mEq 20 meq PO DAILY supplement 1 Unknown History tablet,extended release(part/cryst) vitamins A,C,K-rquy-ooanrz 2,148 1 tab PO BID suppleme nt 04/14/24 Unknown History mcg-113 mg-45 mg-17.4 mg tablet (Eye Multivitamin) furosemide 20 mg tablet 20 mg PO QODAY Fluid retenti on 06/08/24 Unknown History levothyroxine 125 mcg tablet 125 mcg PO MOTUWETHFR Thy roid 06/08/24 07/19/24 History levothyroxine 200 mcg capsule 250 mcg PO SUSA Thyroid 06/08/24 Unknown History zinc gluconate 50 mg tablet 50 mg PO DAILY supplement 06/08/24 Unknown History apixaban 5 mg tablet (Eliquis) 5 mg PO BID Blood thinn er #60 tabs 06/14/24 Unknown Rx Held on 07/22/24. Instructions: Hold Eliquis until pacer check in office by cardiology lisinopril 2.5 mg tablet 2.5 mg PO DAILY BP 06/14/24 07/19/24 History Allergy/AdvReac Type Severity Reaction Status Date / Time oxybutynin (From Ditropan) Allergy Intermediate Nausea/Vom/ Verified 07/27/24 14:40 Diarrhea prednisone AdvReac Nausea Verified 07/27/24 14:40 Surgical History (Updated 07/27/24 @ 14:42 by Aurelia Moyer) History of surgical removal of pilonidal cyst History of permanent cardiac pacemaker placement History of esophagogastroduodenoscopy (EGD) History of laparoscopic cholecystectomy Hx of colonoscopy Hx of repair of left rotator cuff Hx of repair of right rotator cuff Hx of microdiscectomy History of lumbar spinal fusion Social History household members: spouse Smoking Status: Never smoker alcohol intake: never substance use type: does not use ROS Constitutional Constitutional: Denies fatigue, fever(s), poor appetite, weight gain or weight loss Gastrointestinal Gastrointestinal: Denies belching, bloating, change in bowel habits, change in stool character, chewing difficulty, coffee ground emesis, constipation, cramping, diarrhea, dyspepsia, dysphagia, early satiety, excessive flatus, fecalincontinence, heartburn, hematemesis, hematochezia, hemorrhoids, loose stools, melena, nausea, odynophagia, rectal bleeding, tenesmus, vomiting or weight changes Physical Exam Const alert, oriented x3, no apparent distress and healthy appearing General Appearance: cooperative GI normal to inspection, nondistended, normoactive bowel sounds, soft to palpation,non-tender and non-distended Percussion: normal to percussion Rectal Exam: deferred Lab / Micro Data 07/23/24 05:29 07/23/24 05:29 Labs: Laboratory Results - last 24 hr 07/26/24 05:15: Triglycerides 118, Cholesterol 115, LDL Cholesterol 48, VLDL Cholesterol 24, HDL Cholesterol 43, TSH 7.780 H Assessment & Plan Assessment/Plan (1) Difficulty swallowing: PLAN: Assessment and Plan Assessment and Plan (1) Disorder of esophagus: Plan: This is an 83 yo male withe hx of esophageal stenosis dilated in 2021. For a fewmonths now he has had increasing issues with dysphagia. He has sensation of foodin his esophagus and choking episodes every couple of weeks. He is not on PPI therapy. He will undergo EGD with dilation. I recommended PPI therapy. -EGD with dilation -Recommended PPI -N.p.o. past midnight Charges/Coding Visit Charges Inpatient E&M: 74545 SNF Init L2 07/27/24 1448 <Electronically signed by Valente Friend DO> Cosigner Signature (if applicable): CC: Dr. Jose Fam MD; Dr. Simeon Gifford MD~ Signed [facility] Work Phone: [phone]) 414-967602-04-2025 [facility]02-04-2025 Consult note [facility] Medical Records Department [address] [place] [address] Consultation - GI 07/26/24 1740 MR#: [id number] Acct: [id number] Name: ISABELLAREGAN GOMES Rep #:[id number] : 1940 83 From: Valente Campoverde DO PCP: Dr. Jose Fam MD Status:ADM IN Location: [facility] TCU12-1 HPI Consult Data Date of Consult: 07/27/24 HPI Narrative Reason for Consultation: Dysphagia HPI Narrative: REGAN ARANGO, is a 83 M hx of dysphagia but it was well controlled for a time period. Pt underwent EGD with dilation 9.01.11 and this helped with his dysphagiafor some time. A few months ago he startedagain with sensation of food in his esophagus and choking episodes. He was recently hospitalized for what was believed to be aspiration pneumonia. He denies abdominal pain, n/v, constipation, diarrhea or melena. He was supposed to undergo an EGD with esophageal dilation. However he was discovered to be in new onset atrial fibrillation/a flutter and the procedure was canceled. He also has a hx of a TIA and is on Plavix. He did have a 14-day event monitor in 2022 which did demonstrate 1 episode of second-degree AV block type I. He isnot on any rate limiting medications. He was last seen by them in November 2023. Ptsts that he was told that he was just a hair away of needing a PPM. Patient presented to the emergency room on 06/09/2024 with new onset of atrial flutter. Patient wasnot symptomatic with his onset of atrial flutter. He wasalso documented as having heart rates into the 20s so it was decided to put a permanent pacemaker. He was sent to the transitional care unit due to some balance issues along with some neuropathy. I was consulted to see him regarding his esophageal dysphagia. [facility] Medical History Sick sinus syndrome Paroxysmal atrial fibrillation Persistent atrial fibrillation Mobitz (type) I (Wenckebach's) atrioventricular block Prostate disease Excessive bleeding Gastric reflux Neuropathy Wears glasses Cancer Thyroid disease Arthritis Hx of bladder cancer Bladder disease Restless legs Back pain Injury of head and neck Syncope Difficulty swallowing Non-smoker TIA (transient ischemic attack) History of pain when walking History of edema History of stress test Cardiology follow-up encounter Esophageal dysphagia High cholesterol Hypertension Home Medications ?Medication ?Instructions ?Recorded ?Last Taken ?Type pravastatin 20 mg tablet 20 mg PO QHS Cholesterol Unknown History tamsulosin 0.4 mg capsule 0.4 mg PO DAILY Urine retent ion 05/09/15 Unknown History trazodone 50 mg tablet 50 mg PO QHS sleep 05/09/15 Unknown History cyanocobalamin (vitamin B-12) 1,000 mcg PO DAILY suppl ement 04/14/24 Unknown History 1,000 mcg tablet duloxetine 30 mg capsule,delayed 30 mg PO DAILY . 03/24 09/13 Unknown History release finasteride 5 mg tablet 5 mg PO DAILY BPH 04/14/24 U nknown History gabapentin 600 mg tablet 1,800 mg PO Q12H neuropathy 04/14/24 07/19/24 History qyvqvzuo-op-bcrsz 300 mcg-K 60 1 tab PO DAILY suppleme nt 04/14/24 Unknown History mcg-lycop 600 mcg-lutein 300 mcg tablet (Centrum Silver Men) potassium chloride 20 mEq 20 meq PO DAILY supplement 1 Unknown History tablet,extended release(part/cryst) vitamins A,C,G-sctd-qokwti 2,148 1 tab PO BID suppleme nt 04/14/24 Unknown History mcg-113 mg-45 mg-17.4 mg tablet (Eye Multivitamin) furosemide 20 mg tablet 20 mg PO QODAY Fluid retenti on 06/08/24 Unknown History levothyroxine 125 mcg tablet 125 mcg PO MOTUWETHFR Thy roid 06/08/24 07/19/24 History levothyroxine 200 mcg capsule 250 mcg PO SUSA Thyroid 06/08/24 Unknown History zinc gluconate 50 mg tablet 50 mg PO DAILY supplement 06/08/24 Unknown History apixaban 5 mg tablet (Eliquis) 5 mg PO BID Blood thinn er #60 tabs 06/14/24 Unknown Rx Held on 07/22/24. Instructions: Hold Eliquis until pacer check in office by cardiology lisinopril 2.5 mg tablet 2.5 mg PO DAILY BP 06/14/24 07/19/24 History Allergy/AdvReac Type Severity Reaction Status Date / Time oxybutynin (From Ditropan) Allergy Intermediate Nausea/Vom/ Verified 07/27/24 14:40 Diarrhea prednisone AdvReac Nausea Verified 07/27/24 14:40 Surgical History (Updated 07/27/24 @ 14:42 by Aurelia Moyer) History of surgical removal of pilonidal cyst History of permanent cardiac pacemaker placement History of esophagogastroduodenoscopy (EGD) History of laparoscopic cholecystectomy Hx of colonoscopy Hx of repair of left rotator cuff Hx of repair of right rotator cuff Hx of microdiscectomy History of lumbar spinal fusion Social History household members: spouse Smoking Status: Never smoker alcohol intake: never substance use type: does not use ROS Constitutional Constitutional: Denies fatigue, fever(s), poor appetite, weight gain or weight loss Gastrointestinal Gastrointestinal: Denies belching, bloating, change in bowel habits, change in stool character, chewing difficulty, coffee ground emesis, constipation, cramping, diarrhea, dyspepsia, dysphagia, earlysatiety, excessive flatus, fecalincontinence, heartburn, hematemesis, hematochezia, hemorrhoids, loose stools, melena, nausea, odynophagia, rectal bleeding, tenesmus, vomiting or weight changes Physical Exam Const alert, oriented x3, no apparent distress and healthy appearing General Appearance: cooperative GI normal to inspection, nondistended, normoactive bowel sounds, soft to palpation,non-tender and non-distended Percussion: normal to percussion Rectal Exam: deferred Lab / Micro Data 07/23/24 05:29 07/23/24 05:29 Labs: Laboratory Results - last 24 hr 07/26/24 05:15: Triglycerides 118, Cholesterol 115, LDL Cholesterol 48, VLDL Cholesterol 24, HDL Cholesterol 43, TSH 7.780 H Assessment & Plan Assessment/Plan (1) Difficulty swallowing: PLAN: Assessment and Plan Assessment and Plan (1) Disorder of esophagus: Plan: This is an 83 yo male withe hx of esophageal stenosis dilated in 2021. For a fewmonths now he has had increasing issues with dysphagia. He has sensation of foodin his esophagus and choking episodes every couple of weeks. He is not on PPI therapy. He will undergo EGD with dilation. I recommended PPItherapy. -EGD with dilation -Recommended PPI -N.p.o. past midnight Charges/Coding Visit Charges Inpatient E&M: 64378 SNF Init L2 07/27/24 1448 Cosigner Signature (if applicable): CC: Dr. Jose Fam MD; Dr. Simeon Gifford MD~ Signed [facility]02-03-2025 NoteHNO ID: [id number] Author: JOSE FAM MD Service: ? Author Type: Physician Type: Progress Notes Filed: 07/26/2024 12:34 Note Text: If there are no new issues other then getting his pace maker the only f/u needs to be with Cardio.[facility]02-03-2025 History of Present illness Narrative* Jose Fam MD - 07/26/2024 12:34 PM EST If there are no new issues other then getting his pace maker the only f/u needs to be with Cardio. * Nick Spence MA - 07/26/2024 9:07 AM EST Scan on 07/19/2024 3:17 PM by ProviderTerrance PASolangeC: Cardiac Procedure Pacemaker placed 07/19/2024 Dr. Boone Scan on 07/22/2024 9:04 AM by ProviderTerrance PASolangeC: Discharge Summary 1 week follow up with PCP after discharge from TCU. - Does patient need appointment. Scan on 07/22/2024 9:00 AM by ProviderTerrance PA-C: Discharge Summary - transfer to snf Patient has cardiology appointment 08/04 for pacemarker follow up Nick Spence [facility] Progress note Author Gustavo Hastings [facility] Note Date/Time July 25, 2024 8 :29am [facility] Medical Records Department [address] [place] [address] Progress Note - Pharmacy 07/24/24 1434 MR#: [id number] Acct: [id number] Name: REGAN ARANGO Rep #:[id number] 5 : 1940 83 From: Gustavo Hastings PCP: Dr. Jose Fam MD Status:ADM IN Location: [facility] [place] [address] Documented by User: Gustavo Hastings 07/24/24 15:22 TCU RX Drug Regimen Review Subjective/Objective Subjective/Objective Subjective: TCU admission note. 83 year old male with recent diagnosis of atrialfibrillation, second degree AV block Type 1, sick sinus syndrome, bradycardia, hospitalized for permanent pacemaker placement 07/19/[address] Boone, complicated by chronic neuropathy, imbalance, admitted to TCU with debility, here for rehabilitation, strengthening, prior to discharge home with . Objective: Allergies oxybutynin (From Ditropan) Allergy (Intermediate, Verified 06/17/24 15:14) Nausea/Vom/Diarrhea BRAIN FOG, WEAKNESS, DECREASED APPETITE prednisone Adverse Reaction (Verified 06/17/24 15:14) Nausea Current Medications Generic Name Dose Route Start Last Admin Trade Name Freq PRN Reason Stop Dose Admin Acetaminophen 1,000 mg 07/22/24 20:07 Acetaminophen 500 Mg Tablet PO Q6H PRN PRN Pain Score 1-10 Cyanocobalamin 1,000 mcg 07/23/24 10:00 07/24/24 09:36 Cyanocobalamin 500 Mcg Tablet PO 1,000 mcg DAILY MICHAEL Administration Duloxetine HCl 30 mg 07/23/24 10:00 07/24/24 09:37 Duloxetine Hcl 30 Mg Capsule PO 30 mg DAILY MICHAEL Administration Finasteride 5 mg 07/23/24 10:00 07/24/24 09:37 Finasteride 5 Mg Tablet PO 5 mg DAILY MICHAEL Administration Furosemide 20 mg 07/24/24 10:00 07/24/24 09:38 Furosemide 20 Mg Tablet PO 20 mg QODAY MICHAEL Administration Protocol Gabapentin 1,800 mg 07/22/24 22:00 07/24/24 09:42 Gabapentin 600 Mg Tablet PO 1,800 mg Q12 MICHAEL Administration Levothyroxine Sodium 125 mcg 07/23/24 06:00 07/23/24 05:47 Levothyroxine 125 Mcg Tablet PO 125 mcg [id number]@0600 MICHAEL Administration Levothyroxine Sodium 250 mcg 07/24/24 06:00 07/24/24 05:50 Levothyroxine 100 Mcg Tablet PO 250 mcg SuSa@0600 MICHAEL Administration Lisinopril 2.5 mg 07/23/24 10:00 07/24/24 09:38 Lisinopril 2.5 Mg Tablet PO 2.5 mg DAILY MICHAEL Administration Protocol Magnesium Citrate 300 ml 07/22/24 20:07 Magnesium Citrate 300 Ml PO DAILY PRN Constipation Multivitamins/Minerals 1 cap 07/22/24 22:00 07/24/24 09:37 Multivitamin (Healthy Eyes) Capsule PO 1 cap BID MICHAEL Administration Multivitamins/Minerals 1 tablet 07/23/24 08:00 07/24/24 09:38 Multivitamins,Ther W-Minerals Tablet PO 1 tablet DAILYCM MICHAEL Administration Potassium Chloride 20 meq 07/23/24 10:00 07/24/24 09:38 Potassium Chloride Oral Tablet 20 Meq PO 20 meq DAILY MICHAEL Administration Pravastatin Sodium 20 mg 07/22/24 22:00 07/23/24 19:56 Pravastatin 20 Mg Tablet PO 20 mg QHS MICHAEL Administration Senna/Docusate Sodium 1 tablet 07/22/24 22:00 07/24/24 09:38 Senna/Docusate Sodium 1 Tablet PO 1 tablet BID MICHAEL Administration Sodium Chloride 10 - 40 ml 07/22/24 11:08 07/22/24 22:20 0.9% Saline Lock 10 Ml Syringe IV 20 ml UD PRN Administration SALINE FLUSH Tamsulosin HCl 0.4 mg 07/23/24 10:00 07/24/24 09:37 Tamsulosin Hcl 0.4 Mg Capsule PO 0.4 mg DAILY MICHAEL Administration Trazodone HCl 50 mg 07/22/24 22:00 07/23/24 19:56 Trazodone 50 Mg Tablet PO 50 mg QHS [facility] Administration Tuberculin PPD 0.1 ml 07/30/24 10:00 Tuberculin,Purif.Prot.Deriv. 50 Tu/Ml Vial ID 07/30/24 10:01 X1 ONE Zinc Sulfate 50 mg 07/23/24 10:00 07/24/24 09:36 Zinc Sulfate 50 Mg Zinc (220 Mg) Oral Capsule PO 50 mg DAILY [facility] Administration Problem List Hypothyroidism (Acute) Hypokalemia (Acute) Depression (Acute) Insomnia (Acute) BPH (benign prostatic hyperplasia) (Acute) Hyperlipidemia (Acute) Stroke (Acute) SVT (supraventricular tachycardia) (Acute) Essential (primary) hypertension (Acute) Imbalance (Acute) Neuropathy (Acute) Debility (Acute) Status post cardiac pacemaker procedure (Acute) Sick sinus syndrome (Chronic) Mobitz (type) I (Wenckebach's) atrioventricular block (Chronic) Vital Signs Temp Pulse Resp BP Pulse Ox O2 Del Method 97.4 F L 60 14 127/64 H 93 Room Air 07/23/24 14:57 07/23/24 14:57 07/23/24 14:57 07/23/24 14:57 07/23/24 14:57 07/23/24 21:00 Oxygen Delivery Method Room Air Weight: 128.367 kg Body Mass Index (BMI) 39.4 Sodium 139 mmol/L (136-145) 07/23/24 05:29 Potassium 3.7 mmol/L (3.5-5.1) 07/23/24 05:29 Chloride 106 mmol/L (98-107) 07/23/24 05:29 Carbon Dioxide 27.0 mmol/L (21.0-32.0) 07/23/24 05:29 Anion Gap 6 (5-15) 07/23/24 05:29 BUN 23 mg/dL (7-18) H 07/23/24 05:29 Creatinine 1.04 mg/dL (0.70-1.30) 07/23/24 05:29 Est GFR (MDRD) Af Amer 87 mL/min (>60) 07/23/24 05:29 Est GFR (MDRD) Non-Af 72 mL/min (>60) 07/23/24 05:29 BUN/Creatinine Ratio 22.1 RATIO (10-20) H 07/23/24 05:29 Glucose 121 mg/dL (74-106) H 07/23/24 05:29 Assessment/Plan: 1. Pain: acetaminophen 1000 mg Q6H PRN pain (1-10). The patient has not requiredany PRN doses of acetaminophen so far this admission. Please continue to monitorfor pain, PRN medication administration and LFTs (AST/ALT = 13/17 U/L on 04/14/24). 2. Bowel: senna/docusate 1 tablet PO BID, magnesium citrate 300 mL PO daily PRN constipation. The patient has not required any PRN doses of magnesium citrate sofar this admission, and the patient's last bowel movement was documented on 07/21/24. Please continue to monitor for bowel movements, for PRN medication administration, for constipation and diarrhea. 3. Chronic HFpEF: lisinopril 2.5 mg PO daily, furosemide 20 mg PO every other day. Please continue to monitor for s/s of a heart failure exacerbation such as shortness of breath or edema, renal function (serum creatinine = 1.04 mg/dL withcreatinine clearance ~ 72 mL/min on 07/23/24), potassium levels (K = 3.7 mmol/L on 07/23/24), sodium levels (Na = 139 mmol/L on 07/23/24), cough, angioedema, blood pressures (recent range = 105-144/62-83 mmHg), and for s/s of dehydration. 4. Neuropathy: gabapentin 1800 mg PO Q12, duloxetine 30 mg PO daily. Please continue to monitor for nerve pain, renal function (serum creatinine = 1.04 mg/dL with creatinine clearance ~ 72 mL/min on 07/23/24), for dizziness/drowsiness, and for lower extremity edema, for s/s of serotonin syndrome, and sodium levels (Na = 139 mmol/L on 07/23/24). 5. Hypothyroidism: levothyroxine 125 mcg PO daily 5 days per week, 250mcg PO daily 2 days per week. Please continue to monitor for s/s of hypo/hyperthyroidism, and thyroid hormone levels (no recent thyroid hormone levels documented). Please consider obtaining thyroid hormone levels if clinically indicated. 6. BPH: finasteride 5 mg PO daily, tamsulosin 0.4 mg PO daily. Please continue to monitor for urinary retention and for s/s of orthostasis. 7. Hyperlipidemia: pravastatin 20 mg PO daily at bedtime. Please continue to monitor lipid levels (no recent lipid levels documented), LFTs (AST/ALT = 13/17 U/L on 04/14/24), and for myalgias. Please consider obtaining an annual lipid panel if clinically indicated. 8. Hypokalemia: potassium chloride 20 mEq PO daily. Please continue to monitor potassium levels (K = 3.7 mmol/L on 07/23/24), and for GI distress with potassiumadministration. 9. Vitamin B12 deficiency: cyanocobalamin 1000 mcg PO daily. Please continue to monitor for s/s of vitamin B12 deficiency and vitamin B12 levels (no recent vitamin B12 levels documented). 10. Zinc deficiency: zinc sulfate 50 mg PO daily. Please continue to monitor fors/s of zinc deficiency. 11. Macular degeneration: healthy eyes 1 capsule PO BID. Please continue to monitor eye health. 12. Nutrition: multivitamin 1 tablet PO daily. Please continue to monitor nutritional status. Assessment/Plan for indications treated with psychotropic medications: 1. Insomnia: trazodone 50 mg PO QHS. Please see provider note regarding stable chronic long-term use GDR not recommended. Please continue to monitor for insomnia, drowsiness, for s/s of serotonin syndrome, and dizziness/falls. Medical chart and medication regimen reviewed. The following medication irregularities or issues were identified: 1. Hypothyroidism: levothyroxine 125 mcg PO daily 5 days per week, 250mcg PO daily 2 days per week. Please consider obtaining thyroid hormone levels if clinically indicated. 2. Hyperlipidemia: pravastatin 20 mg PO daily at bedtime. Please consider obtaining an annual lipid panel if clinically indicated. Date Date of Note: 07/24/24 Documented by User: Dr. Simeon Gifford MD 07/25/24 09:29 TCU RX Drug Regimen Review Provider Comments Provider responsibility Provider Comments to Recommendations by Pharmacy Agree 07/24/24 1522 <Electronically signed by Gustavo Hastings> Gustavo Hastings Cosigner Signature (if applicable): 07/25/24 0929 <Electronically signed by Simeon Gifford MD> CC: ~ Signed [facility] Work Phone: 1(622) 975-870002-02-2025 Progress note [facility] Medical Records Department [address] [place] [address] Progress Note - Pharmacy 07/24/24 1434 MR#: [id number] Acct: [id number] Name: REGAN ARANGO Rep #:[id number] 5 : 1940 83 From: Gustavo Hastings PCP: Dr. Jose Fam MD Status:ADM IN Location: TCU [place] [address] Documented by User: Gustavo Walkerbernard 07/24/24 15:22 TCU RX Drug Regimen Review Subjective/Objective Subjective/Objective Subjective: TCU admission note. 83 year old male with recent diagnosis of atrialfibrillation, second degree AV block Type 1, sick sinus syndrome, bradycardia, hospitalized for permanent pacemaker placement 07/19/[address] Boone, complicated by chronic neuropathy, imbalance, admitted to TCU with aleks izaguirre, here for rehabilitation, strengthening, prior to discharge home with . Objective: Allergies oxybutynin (From Ditropan) Allergy (Intermediate, Verified 06/17/24 15:14) Nausea/Vom/Diarrhea BRAIN FOG, WEAKNESS, DECREASED APPETITE prednisone Adverse Reaction (Verified 06/17/24 15:14) Nausea Current Medications Generic Name Dose Route Start Last Admin Trade Name Freq PRN Reason Stop Dose Admin Acetaminophen 1,000 mg 07/22/24 20:07 Acetaminophen 500 Mg Tablet PO Q6H PRN PRN Pain Score 1-10 Cyanocobalamin 1,000 mcg 07/23/24 10:00 07/24/24 09:36 Cyanocobalamin 500 Mcg Tablet PO 1,000 mcg DAILY MICHAEL Administration Duloxetine HCl 30 mg 07/23/24 10:00 07/24/24 09:37 Duloxetine Hcl 30 Mg Capsule PO 30 mg DAILY MICHAEL Administration Finasteride 5 mg 07/23/24 10:00 07/24/24 09:37 Finasteride 5 Mg Tablet PO 5 mg DAILY MICHAEL Administration Furosemide 20 mg 07/24/24 10:00 07/24/24 09:38 Furosemide 20 Mg Tablet PO 20 mg QODAY MICHAEL Administration Protocol Gabapentin 1,800 mg 07/22/24 22:00 07/24/24 09:42 Gabapentin 600 Mg Tablet PO 1,800 mg Q12 MICHAEL Administration Levothyroxine Sodium 125 mcg 07/23/24 06:00 07/23/24 05:47 Levothyroxine 125 Mcg Tablet PO 125 mcg MoTuWeThFr@0600 MICHAEL Administration Levothyroxine Sodium 250 mcg 07/24/24 06:00 07/24/24 05:50 Levothyroxine 100 Mcg Tablet PO 250 mcg SuSa@0600 MICHAEL Administration Lisinopril 2.5 mg 07/23/24 10:00 07/24/24 09:38 Lisinopril 2.5 Mg Tablet PO 2.5 mg DAILY MICHAEL Administration Protocol Magnesium Citrate 300 ml 07/22/24 20:07 Magnesium Citrate 300 Ml PO DAILY PRN Constipation Multivitamins/Minerals 1 cap 07/22/24 22:00 07/24/24 09:37 Multivitamin (Healthy Eyes) Capsule PO 1 cap BID MICHAEL Administration Multivitamins/Minerals 1 tablet 07/23/24 08:00 07/24/24 09:38 Multivitamins,Ther W-Minerals Tablet PO 1 tablet DAILYCM MICHAEL Administration Potassium Chloride 20 meq 07/23/24 10:00 07/24/24 09:38 Potassium Chloride Oral Tablet 20 Meq PO 20 meq DAILY MICHAEL Administration Pravastatin Sodium 20 mg 07/22/24 22:00 07/23/24 19:56 Pravastatin 20 Mg Tablet PO 20 mg QHS [facility] Administration Senna/Docusate Sodium 1 tablet 07/22/24 22:00 07/24/24 09:38 Senna/Docusate Sodium 1 Tablet PO 1 tablet BID MICHAEL Administration Sodium Chloride 10 - 40 ml 07/22/24 11:08 07/22/24 22:20 0.9% Saline Lock 10 Ml Syringe IV 20 ml UD PRN Administration SALINE FLUSH Tamsulosin HCl 0.4 mg 07/23/24 10:00 07/24/24 09:37 Tamsulosin Hcl 0.4 Mg Capsule PO 0.4 mg DAILY MICHAEL Administration Trazodone HCl 50 mg 07/22/24 22:00 07/23/24 19:56 Trazodone 50 Mg Tablet PO 50 mg QHS MICHAEL Administration Tuberculin PPD 0.1 ml 07/30/24 10:00 Tuberculin,Purif.Prot.Deriv. 50 Tu/Ml Vial ID 07/30/24 10:01 X1 ONE Zinc Sulfate 50 mg 07/23/24 10:00 07/24/24 09:36 Zinc Sulfate 50 Mg Zinc (220 Mg) Oral Capsule PO 50 mg DAILY [facility] Administration Problem List Hypothyroidism (Acute) Hypokalemia (Acute) Depression (Acute) Insomnia (Acute) BPH (benign prostatic hyperplasia) (Acute) Hyperlipidemia (Acute) Stroke (Acute) SVT (supraventricular tachycardia) (Acute) Essential (primary) hypertension (Acute) Imbalance (Acute) Neuropathy (Acute) Debility (Acute) Status post cardiac pacemaker procedure (Acute) Sick sinus syndrome (Chronic) Mobitz (type) I (Wenckebach's) atrioventricular block (Chronic) Vital Signs Temp Pulse Resp BP Pulse Ox O2 Del Method 97.4 F L 60 14 127/64 H 93 Room Air 07/23/24 14:57 07/23/24 14:57 07/23/24 14:57 07/23/24 14:57 07/23/24 14:57 07/23/24 21:00 Oxygen Delivery Method Room Air Weight: 128.367 kg Body Mass Index (BMI) 39.4 Sodium 139 mmol/L (136-145) 07/23/24 05:29 Potassium 3.7 mmol/L (3.5-5.1) 07/23/24 05:29 Chloride 106 mmol/L (98-107) 07/23/24 05:29 Carbon Dioxide 27.0 mmol/L (21.0-32.0) 07/23/24 05:29 Anion Gap 6 (5-15) 07/23/24 05:29 BUN 23 mg/dL (7-18) H 07/23/24 05:29 Creatinine 1.04 mg/dL (0.70-1.30) 07/23/24 05:29 Est GFR (MDRD) Af Amer 87 mL/min (>60) 07/23/24 05:29 Est GFR (MDRD) Non-Af 72 mL/min (>60) 07/23/24 05:29 BUN/Creatinine Ratio 22.1 RATIO (10-20) H 07/23/24 05:29 Glucose 121 mg/dL (74-106) H 07/23/24 05:29 Assessment/Plan: 1. Pain: acetaminophen 1000 mg Q6H PRN pain (1-10). The patient has not requiredany PRN doses of acetaminophen so far this admission. Please continue to monitorfor pain, PRN medication administrationand LFTs (AST/ALT = 13/17 U/L on 04/14/24). 2. Bowel: senna/docusate 1 tablet PO BID, magnesium citrate 300 mL PO daily PRN constipation. The patient has not required any PRN doses of magnesium citrate sofar this admission, and the patient's last bowel movement was documented on 07/21/24. Please continue to monitor for bowel movements, for PRN medication administration, for constipation and diarrhea. 3. Chronic HFpEF: lisinopril 2.5 mg PO daily, furosemide 20 mg PO every other day. Please continue to monitor for s/s of a heart failure exacerbation such as shortness of breath or edema, renal function (serum creatinine = 1.04 mg/dL withcreatinine clearance ~ 72 mL/min on 07/23/24), potassium levels (K = 3.7 mmol/L on 07/23/24), sodium levels (Na = 139 mmol/L on 07/23/24), cough, angioedema, blood pressures (recent range = 105-144/62-83 mmHg), and for s/s of dehydration. 4. Neuropathy: gabapentin 1800 mg PO Q12, duloxetine 30 mg PO daily. Please continue to monitor fornerve pain, renal function (serum creatinine = 1.04 mg/dL with creatinine clearance ~ 72 mL/min on 07/23/24), for dizziness/drowsiness, and for lower extremity edema, for s/s of serotonin syndrome, and sodium levels (Na = 139 mmol/L on 07/23/24). 5. Hypothyroidism: levothyroxine 125 mcg PO daily 5 days per week, 250mcg PO daily 2 days per week.Please continue to monitor for s/s of hypo/hyperthyroidism, and thyroid hormone levels (no recent thyroid hormone levels documented). Please consider obtaining thyroid hormone levels if clinically indicated. 6. BPH: finasteride 5 mg PO daily, tamsulosin 0.4 mg PO daily. Please continue to monitor for urinary retention and for s/s of orthostasis. 7. Hyperlipidemia: pravastatin 20 mg PO daily at bedtime. Please continue to monitor lipid levels (no recent lipid levels documented), LFTs (AST/ALT = 13/17 U/L on 04/14/24), and for myalgias. Pleaseconsider obtaining an annual lipid panel if clinically indicated. 8. Hypokalemia: potassium chloride 20 mEq PO daily. Please continue to monitor potassium levels (K = 3.7 mmol/L on 07/23/24), and for GI distress with potassiumadministration. 9. Vitamin B12 deficiency: cyanocobalamin 1000 mcg PO daily. Please continue to monitor for s/s of vitamin B12 deficiency and vitamin B12 levels (no recent vitamin B12 levels documented). 10. Zinc deficiency: zinc sulfate 50 mg PO daily. Please continue to monitor fors/s of zinc deficiency. 11. Macular degeneration: healthy eyes 1 capsule PO BID. Please continue to monitor eye health. 12. Nutrition: multivitamin 1 tablet PO daily. Please continue to monitor nutritional status. Assessment/Plan for indications treated with psychotropic medications: 1. Insomnia: trazodone 50 mg PO QHS. Please see provider note regarding stable chronic long-term use GDR not recommended. Please continue to monitor for insomnia, drowsiness, for s/s of serotonin syndrome, and dizziness/falls. Medical chart and medication regimen reviewed. The following medication irregularities or issues were identified: 1. Hypothyroidism: levothyroxine 125 mcg PO daily 5 days per week, 250mcg PO daily 2 days per week.Please consider obtaining thyroid hormone levels if clinically indicated. 2. Hyperlipidemia: pravastatin 20 mg PO daily at bedtime. Please consider obtaining an annual lipidpanel if clinically indicated. Date Date of Note: 07/24/24 Documented by User: Dr. Simeon Gifford MD 07/25/24 09:29 TCU RX Drug Regimen Review Provider Comments Provider responsibility Provider Comments to Recommendations by Pharmacy Agree 07/24/24 1522 Gustavo Santanaignnirav Signature (if applicable): 07/25/24 0929 CC: ~ Signed [facility]01-31-2025 NoteHNO ID: [id number] Author: TAZ MARIE LPN Service: ? Author Type: LICENSED NURSE Type: Progress Notes Filed: 07/23/2024 12:50 Note Text: Scan on 07/22/2024 8:24 PM [facility] History of Present illness Narrative* Taz Marie LPN - 07/23/2024 12:50 PM EST Scan on 07/22/2024 8:24 PM by Terrance Haas PA-C [facility]01-30-2025 NoteHNO ID: [id number] Author: TAZ MARIE LPN Service: ? Author Type: LICENSED NURSE Type: Progress Notes Filed: 07/22/2024 08:20 Note Text: Scan on 07/22/2024 7:51 AM by Terrance Haas PA-C: Discharge Summary [facility]01-30-2025 History of Present illness Narrative* Taz Marie LPN - 07/22/2024 8:20 AM EST Scan on 07/22/2024 7:51 AM by Terrance Haas PA-C: Discharge Summary documented [facility]25 NoteHNO ID: [id number] Author: NICK SPENCE MA Service: ? Author Type: Rn Radiation Oncology Type: Progress Notes Filed: 07/20/2024 12:10 Note Text: Scan on 07/16/2024 4:46 PM by Terrance Haas PA-C: [facility] of Present illness Narrative* Nick Spence MA - 07/20/2024 12:10 PM EST Scan on 07/16/2024 4:46 PM by Terrance Haas PA-C: Consultation - Cardiology Nick Spence MA documented [facility]25 NoteHNO ID: [id number] Author: TAZ MARIE LPN Service: ? Author Type: LICENSED NURSE Type: Progress Notes Filed: 07/20/2024 07:30 Note Text: Scan on 07/19/2024 3:17 PM by Terrance Haas PA-C: Cardiac Procedure [facility]01-28-2025 History of Present illness Narrative* Taz Marie LPN - 07/20/2024 7:29 AM EST Scan on 07/19/2024 3:17 PM by Provider, ALESSIO Carlos: Cardiac Procedure documented [facility]Pe[facility] Evaluation note* Diagnosis Onset Date Resolution Status Admit Date Persistent atrial fibrillation ruled -out July 19, 2024 2:59pm Bradycardia inactive July 19, 2024 2:59pm Status post cardiac pacemake r procedure inactive July 19 2:59pm 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 resolved June 242024 8:53am Sick sinus syndrome resolved 2024 8:53am Persistent atrial fibrillation ruled -out July 20, 2024 8:53am Bradycardia inactive July 20, 2024 8:53am Status post cardiac pacemake r procedure inactive July 20 8:53am BPH (benign prostatic hyperplasia) acute July 22 10:18am Debility acute July 22, 2024 10:18am Depression acute July 22, 2024 10:18am Essential (primary) hypertension acute July 22 10:18am Hyperlipidemia acute July 222024 10:18am Hypokalemia acute July 22, 2024 10:18am Hypothyroidism acute July 222024 10:18am Insomnia acute July 22, 2024 10:18am Neuropathy acute July 22, 2024 10:18am Difficulty swallowing resolved Jun 10:18am Imbalance resolved July 22, 2024 10:18am 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 resolved June 252024 10:18am Sick sinus syndrome resolved 2024 10:18am Stroke resolved July 22, 2024 10:18am SVT (supraventricular tachycardia) resolved July 22 10:18am Persistent atrial fibrillation ruled -out July 22, 2024 10:18am Status post cardiac pacemake r procedure inactive July 22 10:18am Difficulty swallowing resolved Feb ruary 2024 2:37pm History of pacemaker acute Febr 2024 11:29am 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 resolved August 04, 2024 11:29am Sick sinus syndrome resolved Febru casandra 2024 11:29am Persistent atrial fibrillation ruled -out August 04, 2024 11:29am Difficulty swallowing resolved Mar ch 2024 1:05pm History of pacemaker acute [place] 2024 11:02am 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 resolved August 11:02am Sick sinus syndrome resolved August 31, 2024 11:02am [facility] Work Phone: 1(548) 712-670401-27-2025 Evaluation note* Diagnosis Onset Date Resolution Status Admit Date Persistent atrial fibrillation ruled -out July 19, 2024 2:59pm Bradycardia inactive July 19, 2024 2:59pm Status post cardiac pacemake r procedure inactive July 19 2:59pm 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 resolved June 242024 8:53am Sick sinus syndrome resolved 2024 8:53am Persistent atrial fibrillation ruled -out July 20, 2024 8:53am Bradycardia inactive July 20, 2024 8:53am Status post cardiac pacemake r procedure inactive July 20 8:53am BPH (benign prostatic hyperplasia) acute July 22 10:18am Debility acute July 22, 2024 10:18am Depression acute July 22, 2024 10:18am Essential (primary) hypertension acute July 22 10:18am Hyperlipidemia acute July 222024 10:18am Hypokalemia acute July 22, 2024 10:18am Hypothyroidism acute July 222024 10:18am Insomnia acute July 22, 2024 10:18am Neuropathy acute July 22, 2024 10:18am Difficulty swallowing resolved Jun 10:18am Imbalance resolved July 22, 2024 10:18am 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 resolved June 252024 10:18am Sick sinus syndrome resolved 2024 10:18am Stroke resolved July 22, 2024 10:18am SVT (supraventricular tachycardia) resolved July 22 10:18am Persistent atrial fibrillation ruled -out July 22, 2024 10:18am Status post cardiac pacemake r procedure inactive July 22 10:18am Difficulty swallowing resolved Jul 2:37pm History of pacemaker acute ua2024 11:29am 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 resolved August 04, 2024 11:29am Sick sinus syndrome resolved 2024 11:29am Persistent atrial fibrillation ruled -out August 04, 2024 11:29am Difficulty swallowing resolved Aug 1:05pm History of pacemaker acute 2024 11:02am 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 Work Phone: 1(675) 742-431301-27-2025 Evaluation note* Diagnosis Onset Date Resolution Status Admit Date Persistent atrial fibrillation ruled -out July 19, 2024 2:59pm Bradycardia inactive July 19, 2024 2:59pm Status post cardiac pacemake r procedure inactive July 19 2:59pm 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 resolved June 242024 8:53am Sick sinus syndrome resolved 2024 8:53am Persistent atrial fibrillation ruled -out July 20, 2024 8:53am Bradycardia inactive July 20, 2024 8:53am Status post cardiac pacemake r procedure inactive July 20 8:53am BPH (benign prostatic hyperplasia) acute July 22 10:18am Debility acute July 22, 2024 10:18am Depression acute July 22, 2024 10:18am Essential (primary) hypertension acute July 22 10:18am Hyperlipidemia acute July 222024 10:18am Hypokalemia acute July 22, 2024 10:18am Hypothyroidism acute July 222024 10:18am Insomnia acute July 22, 2024 10:18am Neuropathy acute July 22, 2024 10:18am Difficulty swallowing resolved Jun 10:18am Imbalance resolved July 22, 2024 10:18am 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 resolved June 252024 10:18am Sick sinus syndrome resolved 2024 10:18am Stroke resolved July 22, 2024 10:18am SVT (supraventricular tachycardia) resolved July 22 10:18am Persistent atrial fibrillation ruled -out July 22, 2024 10:18am Status post cardiac pacemake r procedure inactive July 22 10:18am Difficulty swallowing resolved Jul 2:37pm History of pacemaker acute 2024 11:29am 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 resolved August 04, 2024 11:29am Sick sinus syndrome resolved 2024 11:29am Persistent atrial fibrillation ruled -out August 04, 2024 11:29am Difficulty swallowing resolved Aug 1:05pm History of pacemaker acute 2024 11:02am 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 Work Phone: 1(148) 816-360201-24-2025 [facility]01-22-2025 History of Present illness Narrative* Jose Fam MD - 07/14/2024 3:20 PM EST Chief Complaint Patient presents with: Follow Up HPI Regan Arango is a 83 year old male who presents here today for 4 week follow up. Patient has had less swelling and though he still has the redness in the left upper medial leg it has not increased or spread. No fevers or chills. No shortness of breath. Is looking at getting a pacemaker placed in th near future for his bradycardia. Office visit - 07/01/2024 Patient has been getting a sharp stabbing pain in the lateral side of his left foot off and on since the fall on 06/14/2024. has been trying to use the cream on it that they use for his neuropathy and when she went to apply it to the side of the left foot he winced in pain. Patient continues to have swelling in the left leg. He also has a area on the anterior right knee and medial right knee that has been red, warm to touch and tender and it seems to be more red at times. . No fevers or chills. He has been having low pulses again and when this happen he has had some shortness of breath and pulse ox has decreased into the upper 80's and then back up and resolves quickly an has not persisted. Past medical history, appointments, medications, allergies reviewed. Previous Medical History PAST MEDICAL HISTORY Diagnosis Date 1st degree AV block 09/08/2015 AC (acromioclavicular) joint arthritis 08/09/2009 Acquired hypothyroidism 04/03/2015 Actinic skin damage 03/08/2012 Acute, but ill-defined, cerebrovascular disease 07/13/2008 Advance directive discussed with patient 03/21/2022 Discussed 02/2022 Anemia 07/24/2015 Arthritis of knee 10/30/2011 At risk for falls 05/28/2019 Atrial flutter ([facility]) 06/20/2024 Seeing [facility]: Dr. Boone Atrial flutter (HCC) 06/20/2024 Seeing [facility]: Dr. Boone on Eliquis Atypical nevus of thoracic region 02/03/2014 Balance problem 04/24/2014 Due to CVA in 2008 and right leg weakness Bilateral carotid artery stenosis 12/27/2021 US 12/2021: R 40-60% L 20-40% Bilateral leg edema 08/01/2014 Bladder cancer (HCC) 09/07/2014 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 Campoverde Essential hypertension Essential hypertension Familial peripheral neuropathy 06/02/2015 Gait difficulty 04/29/2016 Gastroesophageal reflux disease without esophagitis 04/03/2015 Greater trochanteric bursitis 03/20/2016 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09/04/2012 History of bladder cancer 04/09/2023 History of CVA (cerebrovascular accident) 02/2008 residual weakness in right leg History of giant cell arteritis 03/29/2008 Hx of long-term use of blood thinners Irritated//Inflamed Seborrheic Keratosis 03/08/2012 Living will on file 03/21/2022 DPA: Sudarshan () Low back pain 01/13/2014 Low serum vitamin B12 04/16/2022 Lower urinary tract symptoms (LUTS) 08/02/2014 Lumbar stenosis with neurogenic claudication 01/13/[address] Starr Memory difficulties 04/12/2022 04/12/22 MMSE: 29/30 Mild pulmonary hypertension (HCC) 09/22/[address] Hamilton, not able to tolerate CPAP for JESSY. 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 Pain in both hands 12/19/2015 Postlaminectomy syndrome 05/08/2010 Premature supraventricular beats 09/08/2015 Pulmonary nodule 08/06/[address] [facility] on 08/01/22. Repeat in 3-6 months. Multiple nodules up to 7mm in size. Right leg weakness 04/25/2014 Sebaceous cyst 06/08/2009 Stasis dermatitis of both legs 06/02/2015 SVT (supraventricular tachycardia) (HCC) 07/17/2020 SVT (supraventricular tachycardia) (HCC) 07/17/2020 Thoracic or lumbosacral neuritis or radiculitis, unspecified 05/05/2009 Thumb pain, left 11/26/2017 Tinnitus 07/26/2017 Unspecified arthropathy, lower leg 10/12/2008 Venous insufficiency (chronic) (peripheral) 06/02/2015 Vertigo following cerebrovascular accident 07/23/2010 Viral warts, unspecified 04/09/2013 Xerosis cutis 09/04/2012 Previous Surgical History PAST SURGICAL HISTORY Procedure Laterality Date 2D ECHO (EXEP) 08/2015 EF=64%, 1+ TR and mild Pulm HTN COLONOSCOPY FLX DX W/COLLJ SPEC WHEN PFRMD 02/06/2011 Colonoscopy, repeat 10 yrs CYSTO W/REMOVAL OF LESIONS MINOR <0.5CM 08/31/2014 ESOPHAGOGASTRODUODENOSCOPY TRANSORAL DIAGNOSTIC 12/14/2018 EGD FASCT PALM W/WO Z-PLASTY TISSUE REARGMT/SKN GRFT Left 09/08/2018 Left 3rd finger fascietomy with skin graft, left 4th finger facietomy with local soft tissue rearrangements and trigger finger release L3-4 and L4-5 laminoforaminotomy 2009 LAPAROSCOPIC CHOLECYSTECTOMY 02/25/2024 LIGATION/BIOPSY TEMPORAL ARTERY 03/30/2008 RIGHT, negitive. LUMBAR SPINE FUSION COMBINED 05/05/2015 MAL LESION FACE,EAR,EYEL 1.1-2CM 04/20/2008 Exc. right lateral islam skin lesion and right forehead OPEN REPAIR OF ROTATOR CUFF ACUTE 2000 Rotator cuff repair left PAST SURGICAL HISTORY OF ingrown toe nail removed PAST SURGICAL HISTORY OF 1965 cyst removed from bottom of spine REMOVAL GALLBLADDER 02/25/2024 SHOULDER ARTHROSCOPY/SURGERY 08/02/2010 Open Rt subacromial decompression STRESS TEST 04/10/2015 WNL STRESS TEST NUCLEAR 07/09/2018 negative Family History FAMILY HISTORY Problem Relation Age of Onset Hypertension Mother Stroke Mother other (headaches) Mother Ischemic Heart Disease Father Heart Brother Patient Allergies ALLERGIES Allergen Reactions Ditropan [Oxybutyni* Other: See Comments Nausea, brain fog, increased weakness, decreased appetite, and increased restless leg symptoms. Prednisone Other: See Comments Had GI problems, headaches. Patient states he was on high dose for almost 90 days Current Medications Current Outpatient Medications on File Prior to Visit Medication Sig DULoxetine (CYMBALTA) 30 mg capsule Take 1 capsule by mouth once daily. lisinopril 2.5 mg tablet Take 1 tablet by mouth once daily. pravastatin (PRAVACHOL) 20 mg tablet Take 1 tablet by mouth once daily. apixaban (ELIQUIS) 5 mg tab(s) Take 5 mg by mouth two times a day. cefADROxil (DURICEF) 500 mg capsule Take 1 capsule by mouth two times a day. furosemide (LASIX) 20 mg tablet Take 1 tablet by mouth every other day. clopidogrel (PLAVIX) 75 mg tablet Take 1 tablet by mouth once daily. (Patient not taking: Reported on 07/01/2024) MV with Yeq-Ohcsrlwg-Uwejyc (CENTRUM SILVER) 0.4 mg-300 mcg- 250 mcg tab Take 1 tablet by mouth once daily. traZODone (DESYREL) 50 mg tablet Take 1 tablet by mouth daily at bedtime. traZODone (DESYREL) 50 mg tablet Take 1 tablet by mouth daily at bedtime. gabapentin (NEURONTIN) 600 mg tablet Take 2 tablets by mouth three times a day for 180 days. tamsulosin (FLOMAX) 0.4 mg TAKE 1 CAPSULE ONE TIME DAILY 30 MINUTES AFTER THE SAME MEAL EACH DAY levothyroxine (LEVOXYL) 125 mcg tablet Take one tab daily Fri-Fri and two on Friday and FridayTake on empty stomach. For thyroid. finasteride (PROSCAR) 5 mg tablet Take 1 tablet by mouth once daily. potassium chloride ER (KLOR-CON M20) 20 mEq tablet Take 1 tablet by mouth once daily. cyanocobalamin (VITAMIN B-12) 1,000 mcg tab Take 1 tablet by mouth once daily. vit C/E/Zn/coppr/lutein/zeaxan (PRESERVISION AREDS-2 ORAL) Take by mouth two times a day. ZINC ORAL Take 50 mg by mouth once daily. COMPOUNDED PRESCRIPTION rollator walker #: one Dx: I63.50, Z86.73, R26.89, G60.9, M62.81 and M48.06 No current facility-administered medications on file prior to visit. Social History Social History Tobacco Use Smoking status: Never Passive exposure: Never Smokeless tobacco: Never Vaping Use Vaping status: Never Used Substance Use Topics Alcohol use: Not Currently Drug use: Never Review of Symptoms REVIEW OF SYSTEMS See HPI EXAM: BP 128/74 Pulse (!) 48 Temp 36.8 C (98.2 F) Resp 18 Wt 132.5 kg (292 lb) SpO2 94% BMI 40.16 kg/m General Appearance: Well appearing, alert, in no acute distress, well-hydrated, well nourished.. Lungs: Lungs clear to auscultation. No wheezing, rhonchi, rales.. Heart: RRR without murmur, gallop, or rubs. No ectopy. Extremities: has 1+ pitting edema in the right and 1-2+ on the left but improved and appears more typical of his base line. The erythema on the upper medial left leg now blanches where it was not last time and is not hot to touch and no tenderness. The rash on top the foot is all resolved. Has somemild desquamation of the skin on th left lower leg. . Health Maintenance List Shingrix Vaccine(1 of 2) Never done Advance Directive Discussion due on 06/23/2024 RSV Vaccine(1 - 1-dose 75+ series) due on 04/09/2025 Depression Screening due on 10/08/2024 Anxiety Screening due on 10/08/2024 DTaP,Tdap,Td Vaccine(2 - Td or Tdap) due on 02/01/2025 Diabetes Screening due on 05/13/2027 Influenza Vaccine Completed Covid-19 Vaccine Completed Pneumococcal Vaccine: 50+ Completed HPV Vaccine Aged Out Data reviewed A/P ASSESSMENT/PLAN: 1. Venous insufficiency (chronic) (peripheral) - ICD9: 459.81, ICD10: I87.2 (primary diagnosis) - patient to cont use of wraps and elevating his feet. 2. Bradycardia - ICD9: 427.89, ICD10: R00.1 - plan is to get a pacer with leads. Advise she needs to get her questions answered by cardi before the procedure is performed since he may need a short rehab stab. Spent extra time discussing there concerns. 3. Rash - ICD9: 782.1, ICD10: R21 - on top of left foot is resolved. 4. Cellulitis of skin - ICD9: 682.9, ICD10: L03.90 - resolved. Patient to keep future f/u I spent a total of 30 minutes on the date of the service which included preparing to see the patient, [id number] patient care, completing clinical documentation, performing a medically appropriate examination, counseling and educating the patient/family/caregiver and ordering medications, tests, or procedures. Jose Fam MD [facility] Tele[facility] encounter Note* Telephone Encounter - Nick Spence MA - 07/02/2024 5:44 PM EST notified and voiced understanding. Patient is scheduled for 07/14/2024 Nick Spence MA [facility] Miscellaneous Notes* Telephone Encounter - Nick Spence MA - 07/02/2024 5:44 PM EST notified and voiced understanding. Patient is scheduled for 07/14/2024 Nick Spence MA * Telephone Encounter - Jose Fam MD - 07/02/2024 4:45 PM EST Let know uric acid level was ok. Also let her know I though some more about her f/u question and see if we can do a f/u with me in 3-4 weeks. [facility]01-[facility]25 Telephone encounter Note * Telephone Encounter - Jose Fam MD - 07/02/2024 4:55 PM EST The following approved medication requests have been transmitted electronically. Requested Prescriptions Signed Prescriptions Disp Refills DULoxetine (CYMBALTA) 30 mg capsule 90 capsule 1 Sig: Take 1 capsule by mouth once daily. Authorizing Provider: JOSE FAM lisinopril 2.5 mg tablet 90 tablet 1 Sig: Take 1 tablet by mouth once daily. Authorizing Provider: JOSE FAM pravastatin (PRAVACHOL) 20 mg tablet 90 tablet 1 Sig: Take 1 tablet by mouth once daily. Authorizing Provider: JOSE FAM MD [facility]01-10-2025 Miscellaneous Notes* Telephone Encounter - Jose Fam MD - 07/02/2024 4:55 PM EST The following approved medication requests have been transmitted electronically. Requested Prescriptions Signed Prescriptions Disp Refills DULoxetine (CYMBALTA) 30 mg capsule 90 capsule 1 Sig: Take 1 capsule by mouth once daily. Authorizing Provider: JOSE FAM lisinopril 2.5 mg tablet 90 tablet 1 Sig: Take 1 tablet by mouth once daily. Authorizing Provider: JOSE FAM pravastatin (PRAVACHOL) 20 mg tablet 90 tablet 1 Sig: Take 1 tablet by mouth once daily. Authorizing Provider: JOSE FAM MD * Telephone Encounter - Malika Hernandez RN - 07/02/2024 2:38 PM EST Prescription Refill Information The patient has been identified by name and date of : Yes Caregiver verified no other encounters exist for this prescription request: Yes Caregiver confirmed with patient/requestor that no other refills are due, in the near future, with this provider at this time: Yes The last office visit in the department: 07/02/24 Does the patient have a future office visit with this provider/department: Yes Requested Prescriptions Pending Prescriptions Disp Refills DULoxetine (CYMBALTA) 30 mg capsule 90 capsule 1 Sig: Take 1 capsule by mouth once daily. lisinopril 2.5 mg tablet 90 tablet 1 Sig: Take 1 tablet by mouth once daily. pravastatin (PRAVACHOL) 20 mg tablet 90 tablet 1 Sig: Take 1 tablet by mouth once daily. Malika Hernandez RN July 02, 2024 2:39 PM [facility] Telephone encounter Note * Telephone Encounter - Jose Fam MD - 07/02/2024 4:45 PM EST Let know uric acid level was ok. Also let her know I though some more about her f/u question and see if we can do a f/u with me in 3-4 weeks. [facility]01-10-2025 Telephone encounter Note* Telephone Encounter - Malika Hernandez RN - 07/02/2024 2:38 PM EST Prescription Refill Information The patient has been identified by name and date of : Yes Caregiver verified no other encounters exist for this prescription request: Yes Caregiver confirmed with patient/requestor that no other refills are due, in the near future, with this provider at this time: Yes The last office visit in the department: 07/02/24 Does the patient have a future office visit with this provider/department: Yes Requested Prescriptions Pending Prescriptions Disp Refills DULoxetine (CYMBALTA) 30 mg capsule 90 capsule 1 Sig: Take 1 capsule by mouth once daily. lisinopril 2.5 mg tablet 90 tablet 1 Sig: Take 1 tablet by mouth once daily. pravastatin (PRAVACHOL) 20 mg tablet 90 tablet 1 Sig: Take 1 tablet by mouth once daily. Malika Hernandez RN July 02, 2024 2:39 PM [facility]01-09-2025 Telephone encounter Note* Telephone Encounter - Jose Fam MD - 07/01/2024 9:23 PM EST Called and spoke with and informed her the ankle/foot x-ray was negative for fracture. [facility]01-09-2025 Miscellaneous Notes* Telephone Encounter - Jose Fam MD - 07/01/2024 9:23 PM EST Called and spoke with and informed her the ankle/foot x-ray was negative for fracture. documented in this encounterPeoples [facility]01-[facility]25 History of Present illness Narrative* Carla Marquis RT(R) - 07/01/2024 5:00 PM EST Radiology Service Progress Note PATIENT NAME: Regan Arango DATE OF SERVICE: July 01, 2024 TIME: 5:31 PM PATIENT IDENTITY VERIFICATION COMPLETED USING TWO (2) IDENTIFIERS: Name and Date of confirmedby patient verbally. FALL SCREENING: Has the patient had 2 falls in the last year or 1 fall with injury or currently using an Ambulatory Assistive Device (Walker, Cane, Wheelchair, Crutches, etc.)? Yes, Patient High Riskfor Falls What interventions were put in place to prevent falls during this visit? Offered Assistance with Transfers/Clothing, Instructed Patient to Remain Seated (Not on Exam Table) Until Exam, and Increased Observations by Caregivers PATIENT GENDER DATA: Male PATIENT RELEVANT IMPLANT DATA REVIEWED: Yes PATIENT PRESENTS WITH AN IMPLANTABLE OR ATTACHED OYSTER CULTURIST: No RADIOLOGY DEPARTMENT: General X-ray: Exam(s) Completed: Lower Extremity X- Ray(s): Foot, Left PERIPHERAL IV DATA: Not applicable SIGNED BY: RT Mari(R) July 01, 2024 5:31 PM documented in this encounterPeoples [facility]01-[facility] History of Present illness Narrative* Jose Fam MD - 07/01/2024 3:40 PM EST Images from the original note were not included. Chief Complaint Patient presents with: Follow Up HPI Regan Arango is a 83 year old male who presents here today for follow up on left leg after ER visit. ER: 06/17/2024 Patient has been getting a sharp stabbing pain in the lateral side of his left foot off and on since the fall on 06/14/2024. has been trying to use the cream on it that they use for his neuropathy and when she went to apply it to the side of the left foot he winced in pain. Patient continues to have swelling in the left leg. He also has a area on the anterior right knee and medial right knee that has been red, warm to touch and tender and it seems to be more red at times. . No fevers or chills. Past medical history, appointments, medications, allergies reviewed. Previous Medical History PAST MEDICAL HISTORY Diagnosis Date 1st degree AV block 09/08/2015 AC (acromioclavicular) joint arthritis 08/09/2009 Acquired hypothyroidism 04/03/2015 Actinic skin damage 03/08/2012 Acute, but ill-defined, cerebrovascular disease 07/13/2008 Advance directive discussed with patient 03/21/2022 Discussed 02/2022 Anemia 07/24/2015 Arthritis of knee 10/30/2011 At risk for falls 05/28/2019 Atrial flutter ([facility]) 06/20/2024 Seeing [facility]: Dr. Boone Atrial flutter ([facility]) 06/20/2024 Seeing [facility]: Dr. 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 Campoverde Essential hypertension Essential hypertension Familial peripheral neuropathy 06/02/2015 Gait difficulty 04/29/2016 Gastroesophageal reflux disease without esophagitis 04/03/2015 Greater trochanteric bursitis 03/20/2016 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09/04/2012 History of bladder cancer 04/09/2023 History of CVA (cerebrovascular accident) 02/2008 residual weakness in right leg History of giant cell arteritis 03/29/2008 Hx of intermediate frame tender use of blood thinners Irritated//Inflamed Seborrheic Keratosis 03/08/2012 Living will on file 03/21/2022 DPA: Sudarshan () Low back pain 01/13/2014 Low serum vitamin B12 04/16/2022 Lower urinary tract symptoms (LUTS) 08/02/2014 Lumbar stenosis with neurogenic claudication 01/13/[address] Starr Memory difficulties 04/12/2022 04/12/22 MMSE: 29 Mild pulmonary hypertension (HCC) 09/22/[address] Hamilton, not able to tolerate CPAP for JESSY. 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 Pain in both hands 12/19/2015 Postlaminectomy syndrome 05/08/2010 Premature supraventricular beats 09/08/2015 Pulmonary nodule 08/06/[address] [facility] on 08/01/22. Repeat in 3-6 months. Multiple nodules up to 7mm in size. Right leg weakness 04/25/2014 Sebaceous cyst 06/08/2009 Stasis dermatitis of both legs 06/02/2015 SVT (supraventricular tachycardia) (HCC) 07/17/2020 SVT (supraventricular tachycardia) (HCC) 07/17/2020 Thoracic or lumbosacral neuritis or radiculitis, unspecified 05/05/2009 Thumb pain, left 11/26/2017 Tinnitus 07/26/2017 Unspecified arthropathy, lower leg 10/12/2008 Venous insufficiency (chronic) (peripheral) 06/02/2015 Vertigo following cerebrovascular accident 07/23/2010 Viral warts, unspecified 04/09/2013 Xerosis cutis 09/04/2012 Previous Surgical History PAST SURGICAL HISTORY Procedure Laterality Date 2D ECHO (EXEP) 08/2015 EF=64%, 1+ TR and mild Pulm HTN COLONOSCOPY FLX DX W/COLLJ SPEC WHEN PFRMD 02/06/2011 Colonoscopy, repeat 10 yrs CYSTO W/REMOVAL OF LESIONS MINOR <0.5CM 08/31/2014 ESOPHAGOGASTRODUODENOSCOPY TRANSORAL DIAGNOSTIC 12/14/2018 EGD FASCT PALM W/WO Z-PLASTY TISSUE REARGMT/SKN GRFT Left 09/08/2018 Left 3rd finger fascietomy with skin graft, left 4th finger facietomy with local soft tissue rearrangements and trigger finger release L3-4 and L4-5 laminoforaminotomy 2009 LAPAROSCOPIC CHOLECYSTECTOMY 02/25/2024 LIGATION/BIOPSY TEMPORAL ARTERY 03/30/2008 RIGHT, negitive. LUMBAR SPINE FUSION COMBINED 05/05/2015 MAL LESION FACE,EAR,EYEL 1.1-2CM 04/20/2008 Exc. right lateral islam skin lesion and right forehead OPEN REPAIR OF ROTATOR CUFF ACUTE 2000 Rotator cuff repair left PAST SURGICAL HISTORY OF ingrown toe nail removed PAST SURGICAL HISTORY OF 1965 cyst removed from bottom of spine REMOVAL GALLBLADDER 02/25/2024 SHOULDER ARTHROSCOPY/SURGERY 08/02/2010 Open Rt subacromial decompression STRESS TEST 04/10/2015 WNL STRESS TEST NUCLEAR 07/09/2018 negative Family History FAMILY HISTORY Problem Relation Age of Onset Hypertension Mother Stroke Mother other (headaches) Mother Ischemic Heart Disease Father Heart Brother Patient Allergies ALLERGIES Allergen Reactions Ditropan [Oxybutyni* Other: See Comments Nausea, brain fog, increased weakness, decreased appetite, and increased restless leg symptoms. Prednisone Other: See Comments Had GI problems, headaches. Patient states he was on high dose for almost 90 days Current Medications Current Outpatient Medications on File Prior to Visit Medication Sig furosemide (LASIX) 20 mg tablet Take 1 tablet by mouth every other day. clopidogrel (PLAVIX) 75 mg tablet Take 1 tablet by mouth once daily. MV with Kxl-Ylntlphv-Xxlzui (CENTRUM SILVER) 0.4 mg-300 mcg- 250 mcg tab Take 1 tablet by mouth once daily. traZODone (DESYREL) 50 mg tablet Take 1 tablet by mouth daily at bedtime. traZODone (DESYREL) 50 mg tablet Take 1 tablet by mouth daily at bedtime. gabapentin (NEURONTIN) 600 mg tablet Take 2 tablets by mouth three times a day for 180 days. tamsulosin (FLOMAX) 0.4 mg TAKE 1 CAPSULE ONE TIME DAILY 30 MINUTES AFTER THE SAME MEAL EACH DAY DULoxetine (CYMBALTA) 30 mg capsule Take 1 capsule by mouth once daily. lisinopril 2.5 mg tablet Take 1 tablet by mouth once daily. pravastatin (PRAVACHOL) 20 mg tablet Take 1 tablet by mouth once daily. levothyroxine (LEVOXYL) 125 mcg tablet Take one tab daily Fri-Fri and two on Friday and FridayTake on empty stomach. For thyroid. finasteride (PROSCAR) 5 mg tablet Take 1 tablet by mouth once daily. potassium chloride ER (KLOR-CON M20) 20 mEq tablet Take 1 tablet by mouth once daily. cyanocobalamin (VITAMIN B-12) 1,000 mcg tab Take 1 tablet by mouth once daily. vit C/E/Zn/coppr/lutein/zeaxan (PRESERVISION AREDS-2 ORAL) Take by mouth two times a day. ZINC ORAL Take 50 mg by mouth once daily. COMPOUNDED PRESCRIPTION rollator walker #: one Dx: I63.50, Z86.73, R26.89, G60.9, M62.81 and M48.06 No current facility-administered medications on file prior to visit. Social History Social History Tobacco Use Smoking status: Never Passive exposure: Never Smokeless tobacco: Never Vaping Use Vaping status: Never Used Substance Use Topics Alcohol use: Not Currently Drug use: Never Review of Symptoms REVIEW OF SYSTEMS See HPI EXAM: BP 120/68 Pulse 68 Ht 181.6 cm (5' 11.5) Wt 126.6 kg (279 lb) SpO2 94% BMI 38.37 kg/m General Appearance: Well appearing, alert, in no acute distress, well-hydrated, well nourished.. Lungs: Lungs clear to auscultation. No wheezing, rhonchi, rales.. Heart: RRR without murmur, gallop, or rubs. No ectopy. Extremities: right leg was unremarkable with slight swelling. The left leg has erythema on th anterior knee and medial knee that is tender and warm to touch. There is 1-2+ pitting edema on the lower leg with venous stasis changes. The foot is swollen with bruising on the outer side. He is tender over the lateral left ankle and foot. He has a vesicular like rash on top of the foot. Not tender or warm. This rash is in a dermatome distrubution. Health Maintenance List Shingrix Vaccine(1 of 2) Never done Advance Directive Discussion due on 06/23/2024 RSV Vaccine(1 - 1-dose 75+ series) due on 04/09/2025 Depression Screening due on 10/08/2024 Anxiety Screening due on 10/08/2024 DTaP,Tdap,Td Vaccine(2 - Td or Tdap) due on 02/01/2025 Diabetes Screening due on 05/13/2027 Influenza Vaccine Completed Covid-19 Vaccine Completed Pneumococcal Vaccine: 50+ Completed HPV Vaccine Aged Out Data reviewed A/P ASSESSMENT/PLAN: 1. Leg swelling - ICD9: 729.81, ICD10: M79.89 (primary diagnosis) - discussed need for compression and elevation. Jose A wraps provided. 2. Foot pain, left - ICD9: 729.5, ICD10: M79.672 Check - XR FOOT GENERAL 3V AP/LAT/OBL LEFT - URIC ACID 3. Rash - ICD9: 782.1, ICD10: R21 - will place on valtrex 1000 mg TID for 7 days for possible shingles. 4. Cellulitis of skin - ICD9: 682.9, ICD10: L03.90 - Begin treatment with Cefadroxil (Duricef) Requested Prescriptions Signed Prescriptions Disp Refills cefADROxil (DURICEF) 500 mg capsule 20 capsule 0 Sig: Take 1 capsule by mouth two times a day. valACYclovir (VALTREX) 1 gram tablet 21 tablet 0 Sig: Take 1 tablet by mouth three times a day for 7 days. F/u if not improving. I spent a total of 54 minutes on the date of the service which included preparing to see the patient, [id number] patient care, completing clinical documentation, performing a medically appropriate examination, counseling and educating the patient/family/caregiver and ordering medications, tests, or procedures. Jose Fam MD [facility]01-[facility]25 [facility]01-[facility] Telephone encounter Note* Telephone Encounter - Nick Spence MA - 06/29/2024 10:13 AM EST Patient scheduled. Nick Spence MA [facility]01-07-2025 Miscellaneous Notes* Telephone Encounter - Nick Spence MA - 06/29/2024 10:13 AM EST Patient scheduled. Nick Spence MA * Telephone Encounter - Nick Spence MA - 06/29/2024 9:14 AM EST Left message for patient to contact office. Nick Spence MA * Telephone Encounter - Jose Fam MD - 06/28/2024 5:13 PM EST Patient should be seen to be re-evaluated. * Telephone Encounter - Michaelle Apple RN - 06/28/2024 9:54 AM EST Patient's Sudarshan was given message below, regarding patient's knee xray result. Sudarshan would like Dr. Fam's advise regarding the following, as patient prefers PCP input as well, if agreeable. Patient was seen by Valerie Deshpande CNP on 06/22/24 for ER F/U after a fall and left knee injury. Pt had redness, swelling, and pain to his left lower leg and an US and xray was completed recently with negative results. Currently, patient's left lower leg remains red below knee and above ankle, but not as red as it was. Reports continued swelling to left leg below the knee and into left ankle and foot. Not worsened. No swelling into his toes. Pt unable to wear his usual daily shoes due to the swelling. Reports continued soreness to left foot, but not as sharp as it was. Pt able to bear weight and walk per his usual with walker or rollator. Pt has neuropathy making it difficult to determine if there is numbness/tingling. Pt on Eliquis. In addition, patient is having a ventricular pacemaker placed on 07/22/24 at [facility] and pt seeing a Nurse at [facility] today as part of an intake in preparation for this. She is not sure if pt's left leg issue will hinder his upcoming pacemaker procedure and plans to get more information today at [facility]. Question: Transportation is difficult/limited for them this week. asking if Dr. Fam wishes to see patient for another evaluation of his left lower leg, or, if she can send pictures via [employer] to Dr. Fam for him to advise that way? Or should they follow what [facility] recommends regarding his leg today? Please call patient or with Dr. Gomez's reply. Thank you. * Telephone Encounter - Phoebe Muro PA-C - 06/28/2024 9:02 AM EST Xray shows mild increase in arthritic changes. But no evidence of acute changes. Phoebe Muro PA-C * Telephone Encounter - Michaelle Apple RN - 06/25/2024 2:03 PM EST Patient asking for provider to advise on recent knee xray results when received. Patient aware results have not been received yet. Michaelle Apple RN documented in this encounterPeoples Hospital01-07-2025 Telephone encounter Note * Telephone Encounter - Nick Spence MA - 06/29/2024 9:14 AM EST Left message for patient to contact office. Nick Spence MA [facility]01-07-2025 [facility]01-07-[facility] History of Present illness Narrative* Taz Marie LPN - 06/29/2024 6:50 AM EST Scan on 06/28/2024 4:25 PM by Provider, ExternalJAZMINC: Chemistry Scan on 06/28/2024 7:34 PM by ProviderTerrance PA-C: Chemistry Scan on 06/28/2024 3:09 PM by ProviderTerrance PA-C: Hematology Scan on 06/28/2024 4:07 PM by ProviderTerrance PA-C: X-ray documented in this encounterPeoples Hospital01-06-2025 Telephone encounter Note * Telephone Encounter - Jose Fam MD - 06/28/2024 10:27 PM EST In TE encounter today advised for patient to be seen. [facility] Miscellaneous Notes* Telephone Encounter - Jose Fam MD - 06/28/2024 10:27 PM EST In TE encounter today advised for patient to be seen. documented in this encounterPeoples Hospital01-06-2025 Telephone encounter Note * Telephone Encounter - Jose Fam MD - 06/28/2024 5:13 PM EST Patient should be seen to be re-evaluated. [facility] Telephone encounter Note* Telephone Encounter - Michaelle Apple RN - 06/28/2024 9:54 AM EST Patient's Sudarshan was given message below, regarding patient's knee xray result. Sudarshan would like Dr. Fam's advise regarding the following, as patient prefers PCP input as well, if agreeable. Patient was seen by Valerie Deshpande CNP on 06/22/24 for ER F/U after a fall and left knee injury. Pt had redness, swelling, and pain to his left lower leg and an US and xray was completed recently with negative results. Currently, patient's left lower leg remains red below knee and above ankle, but not as red as it was. Reports continued swelling to left leg below the knee and into left ankle and foot. Not worsened. No swelling into his toes. Pt unable to wear his usual daily shoes due to the swelling. Reports continued soreness to left foot, but not as sharp as it was. Pt able to bear weight and walk per his usual with walker or rollator. Pt has neuropathy making it difficult to determine if there is numbness/tingling. Pt on Eliquis. In addition, patient is having a ventricular pacemaker placed on 07/22/24 at [facility] and pt seeing a Nurse at [facility] today as part of an intake in preparation for this. She is not sure if pt's left leg issue will hinder his upcoming pacemaker procedure and plans to get more information today at [facility]. Question: Transportation is difficult/limited for them this week. asking if Dr. Fam wishes to see patient for another evaluation of his left lower leg, or, if she can send pictures via [employer] to Dr. Fam for him to advise that way? Or should they follow what [facility] recommends regarding his leg today? Please call patient or with Dr. Gomez's reply. Thank you. [facility]01-[facility] Telephone encounter Note* Telephone Encounter - Phoebe Muro PA-C - 06/28/2024 9:02 AM EST Xray shows mild increase in arthritic changes. But no evidence of acute changes. Phoebe Muro PA-C [facility]01-03-2025 Telephone encounter Note* Telephone Encounter - Michaelle Apple RN - 06/25/2024 2:03 PM EST Patient asking for provider to advise on recent knee xray results when received. Patient aware results have not been received yet. Michaelle Apple RN [facility]01-03-2025 Telephone encounter Note* Telephone Encounter - Taz Marie LPN - 06/25/2024 6:57 AM EST Please see pt's message. You saw pt 06/22/24 for ER f/u. Taz Marie LPN [facility]01-03-2025 Miscellaneous Notes* Telephone Encounter - Taz Marie LPN - 06/25/2024 6:57 AM EST Please see pt's message. You saw pt 06/22/24 for ER f/u. Taz Marie LPN documented in this encounterPeoples Hospital01-02-2025 Telephone encounter Note * Telephone Encounter - Noemy Washington RN - 06/24/2024 1:54 PM EST Patient's notified of results. Patient's verbalizes understanding. Noemy Washington RN [facility]01-02-2025 Miscellaneous Notes* Telephone Encounter - Noemy Washington RN - 06/24/2024 1:54 PM EST Patient's notified of results. Patient's verbalizes understanding. Noemy Washington RN * Telephone Encounter - Valerie Deshpande APRN.CNP - 06/24/2024 1:03 PM EST Please let patient know their US is negative for DVT. documented in this encounterPeoples Hospital01-02-2025 Telephone encounter Note * Telephone Encounter - Valerie Deshpande APRN.CNP - 06/24/2024 1:03 PM EST Please let patient know their US is negative for DVT. [facility]01-02-[facility]25 History of Present illness Narrative* Susanna Chao RDMS - 06/24/2024 11:30 AM EST Radiology Service Progress Note PATIENT NAME: Regan Arango DATE OF SERVICE: June 24, 2024 TIME: 12:03 PM PATIENT IDENTITY VERIFICATION COMPLETED USING TWO (2) IDENTIFIERS: Name and Date of confirmedby patient verbally. FALL SCREENING: Has the patient had 2 falls in the last year or 1 fall with injury or currently using an Ambulatory Assistive Device (Walker, Cane, Wheelchair, Crutches, etc.)? Yes, Patient High Riskfor Falls What interventions were put in place to prevent falls during this visit? Offered Assistance with Transfers/Clothing, Instructed Patient to Remain Seated (Not on Exam Table) Until Exam, and Increased Observations by Caregivers PATIENT GENDER DATA: Male PATIENT RELEVANT IMPLANT DATA REVIEWED: Not Applicable PATIENT PRESENTS WITH AN IMPLANTABLE OR ATTACHED OYSTER CULTURIST: No RADIOLOGY DEPARTMENT: Ultrasound PERIPHERAL IV DATA: Not applicable SIGNED BY: Susanna Chao RDMS June 24, 2024 12:03 PM documented in this encounterPeoples Hospital01-02-2025 [facility]12-[facility] History of Present illness Narrative* Carla Marquis RT(R) - 06/22/2024 12:10 PM EST Radiology Service Progress Note PATIENT NAME: Regan Arango DATE OF SERVICE: June 22, 2024 TIME: 12:13 PM PATIENT IDENTITY VERIFICATION COMPLETED USING TWO (2) IDENTIFIERS: Name and Date of confirmedby patient verbally. FALL SCREENING: Has the patient had 2 falls in the last year or 1 fall with injury or currently using an Ambulatory Assistive Device (Walker, Cane, Wheelchair, Crutches, etc.)? Yes, Patient High Riskfor Falls What interventions were put in place to prevent falls during this visit? Instructed Patient to Callfor Help if Needed, Offered Assistance with Transfers/Clothing, Instructed Patient to Remain Seated(Not on Exam Table) Until Exam, and Increased Observations by Caregivers PATIENT GENDER DATA: Male PATIENT RELEVANT IMPLANT DATA REVIEWED: Yes PATIENT PRESENTS WITH AN IMPLANTABLE OR ATTACHED OYSTER CULTURIST: No RADIOLOGY DEPARTMENT: General X-ray: Exam(s) Completed: Lower Extremity X- Ray(s): Knee, AP / Lat / Tunne / Merchant Left PERIPHERAL IV DATA: Not applicable SIGNED BY: RT Mari(R) June 22, 2024 12:13 PM documented in this encounterPe[facility]12-31-2024 [facility]12-31-2024 History of Present illness Narrative* Valerie Deshpande APRN.INTEGRATED CIRCUIT DESIGN ENGINEER - 06/22/2024 11:35 AM EST Chief Complaint Patient presents with: ER F/U: fall HPI Regan Arango is a 83 year old male who presents here today for Above Complaints.. Patient presents for ER follow up for fall. Patient was seen at [facility] last Friday after getting his foot caught on the table leg and falling to the floor. Past medical history, appointments, medications, allergies reviewed. Previous Medical History PAST MEDICAL HISTORY Diagnosis Date 1st degree AV block 09/08/2015 AC (acromioclavicular) joint arthritis 08/09/2009 Acquired hypothyroidism 04/03/2015 Actinic skin damage 03/08/2012 Acute, but ill-defined, cerebrovascular disease 07/13/2008 Advance directive discussed with patient 03/21/2022 Discussed 02/2022 Anemia 07/24/2015 Arthritis of knee 10/30/2011 At risk for falls 05/28/2019 Atrial flutter (HCC) 06/20/2024 Seeing [facility]: Dr. Boone Atrial flutter ([facility]) 06/20/2024 Seeing [facility]: Dr. 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 Campoverde Essential hypertension Essential hypertension Familial peripheral neuropathy 06/02/2015 Gait difficulty 04/29/2016 Gastroesophageal reflux disease without esophagitis 04/03/2015 Greater trochanteric bursitis 03/20/2016 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09/04/2012 History of bladder cancer 04/09/2023 History of CVA (cerebrovascular accident) 02/2008 residual weakness in right leg History of giant cell arteritis 03/29/2008 Hx of long-term use of blood thinners Irritated//Inflamed Seborrheic Keratosis 03/08/2012 Living will on file 03/21/2022 DPA: Sudarshan () Low back pain 01/13/2014 Low serum vitamin B12 04/16/2022 Lower urinary tract symptoms (LUTS) 08/02/2014 Lumbar stenosis with neurogenic claudication 01/13/[address] Starr Memory difficulties 04/12/2022 04/12/22 MMSE: 2930 Mild pulmonary hypertension (HCC) 09/22/[address] Hamilton, not able to tolerate CPAP for JESSY. 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 Pain in both hands 12/19/2015 Postlaminectomy syndrome 05/08/2010 Premature supraventricular beats 09/08/2015 Pulmonary nodule 08/06/[address] [facility] on 08/01/22. Repeat in 3-6 months. Multiple nodules up to 7mm in size. Right leg weakness 04/25/2014 Sebaceous cyst 06/08/2009 Stasis dermatitis of both legs 06/02/2015 SVT (supraventricular tachycardia) (HCC) 07/17/2020 SVT (supraventricular tachycardia) (HCC) 07/17/2020 Thoracic or lumbosacral neuritis or radiculitis, unspecified 05/05/2009 Thumb pain, left 11/26/2017 Tinnitus 07/26/2017 Unspecified arthropathy, lower leg 10/12/2008 Venous insufficiency (chronic) (peripheral) 06/02/2015 Vertigo following cerebrovascular accident 07/23/2010 Viral warts, unspecified 04/09/2013 Xerosis cutis 09/04/2012 Previous Surgical History PAST SURGICAL HISTORY Procedure Laterality Date 2D ECHO (EXEP) 08/2015 EF=64%, 1+ TR and mild Pulm HTN COLONOSCOPY FLX DX W/COLLJ SPEC WHEN PFRMD 02/06/2011 Colonoscopy, repeat 10 yrs CYSTO W/REMOVAL OF LESIONS MINOR <0.5CM 08/31/2014 ESOPHAGOGASTRODUODENOSCOPY TRANSORAL DIAGNOSTIC 12/14/2018 EGD FASCT PALM W/WO Z-PLASTY TISSUE REARGMT/SKN GRFT Left 09/08/2018 Left 3rd finger fascietomy with skin graft, left 4th finger facietomy with local soft tissue rearrangements and trigger finger release L3-4 and L4-5 laminoforaminotomy 2009 LAPAROSCOPIC CHOLECYSTECTOMY 02/25/2024 LIGATION/BIOPSY TEMPORAL ARTERY 03/30/2008 RIGHT, negitive. LUMBAR SPINE FUSION COMBINED 05/05/2015 MAL LESION FACE,EAR,EYEL 1.1-2CM 04/20/2008 Exc. right lateral islam skin lesion and right forehead OPEN REPAIR OF ROTATOR CUFF ACUTE 2000 Rotator cuff repair left PAST SURGICAL HISTORY OF ingrown toe nail removed PAST SURGICAL HISTORY OF 1965 cyst removed from bottom of spine REMOVAL GALLBLADDER 02/25/2024 SHOULDER ARTHROSCOPY/SURGERY 08/02/2010 Open Rt subacromial decompression STRESS TEST 04/10/2015 WNL STRESS TEST NUCLEAR 07/09/2018 negative Family History FAMILY HISTORY Problem Relation Age of Onset Hypertension Mother Stroke Mother other (headaches) Mother Ischemic Heart Disease Father Heart Brother Patient Allergies ALLERGIES Allergen Reactions Ditropan [Oxybutyni* Other: See Comments Nausea, brain fog, increased weakness, decreased appetite, and increased restless leg symptoms. Prednisone Other: See Comments Had GI problems, headaches. Patient states he was on high dose for almost 90 days Current Medications Current Outpatient Medications on File Prior to Visit Medication Sig furosemide (LASIX) 20 mg tablet Take 1 tablet by mouth every other day. clopidogrel (PLAVIX) 75 mg tablet Take 1 tablet by mouth once daily. MV with Tln-Ovmsgudx-Ajbmgj (CENTRUM SILVER) 0.4 mg-300 mcg- 250 mcg tab Take 1 tablet by mouth once daily. traZODone (DESYREL) 50 mg tablet Take 1 tablet by mouth daily at bedtime. traZODone (DESYREL) 50 mg tablet Take 1 tablet by mouth daily at bedtime. gabapentin (NEURONTIN) 600 mg tablet Take 2 tablets by mouth three times a day for 180 days. tamsulosin (FLOMAX) 0.4 mg TAKE 1 CAPSULE ONE TIME DAILY 30 MINUTES AFTER THE SAME MEAL EACH DAY DULoxetine (CYMBALTA) 30 mg capsule Take 1 capsule by mouth once daily. lisinopril 2.5 mg tablet Take 1 tablet by mouth once daily. pravastatin (PRAVACHOL) 20 mg tablet Take 1 tablet by mouth once daily. levothyroxine (LEVOXYL) 125 mcg tablet Take one tab daily Fri-Fri and two on Friday and FridayTake on empty stomach. For thyroid. finasteride (PROSCAR) 5 mg tablet Take 1 tablet by mouth once daily. potassium chloride ER (KLOR-CON M20) 20 mEq tablet Take 1 tablet by mouth once daily. cyanocobalamin (VITAMIN B-12) 1,000 mcg tab Take 1 tablet by mouth once daily. vit C/E/Zn/coppr/lutein/zeaxan (PRESERVISION AREDS-2 ORAL) Take by mouth two times a day. ZINC ORAL Take 50 mg by mouth once daily. COMPOUNDED PRESCRIPTION rollator walker #: one Dx: I63.50, Z86.73, R26.89, G60.9, M62.81 and M48.06 No current facility-administered medications on file prior to visit. Social History Social History Tobacco Use Smoking status: Never Passive exposure: Never Smokeless tobacco: Never Vaping Use Vaping status: Never Used Substance Use Topics Alcohol use: Not Currently Drug use: Never Review of Symptoms REVIEW OF SYSTEMS SEE HPI EXAM: BP 123/69 Pulse (!) 52 Wt 130.2 kg (287 lb) BMI 39.47 kg/m General Appearance: Well appearing, alert, in no acute distress, well-hydrated, well nourished.. Skin: Positives: Ecchymosis: medial thigh and posterior calf extending to ankle, Erythema: knees. Extremities: Edema: 3+ pitting edema to b/l LE, Positive findings: joint location: on left knee swelling, painful movement, stiffness, and injury. Peripheral Pulses: Normal. Health Maintenance List Shingrix Vaccine(1 of 2) Never done RSV Vaccine(1 - 1-dose 75+ series) due on 04/09/2025 Depression Screening due on 10/08/2024 Anxiety Screening due on 10/08/2024 DTaP,Tdap,Td Vaccine(2 - Td or Tdap) due on 02/01/2025 Diabetes Screening due on 05/13/2027 Influenza Vaccine Completed Advance Directive Discussion Completed Covid-19 Vaccine Completed Pneumococcal Vaccine: 50+ Completed HPV Vaccine Aged Out ASSESSMENT/PLAN: 1. Injury of left knee, subsequent encounter - ICD9: V58.89, 959.7, ICD10: S89.92XD (primary diagnosis) - XR KNEE GENERAL 4V AP BOTH/PA BOTH/LAT/MERC LEFT 2. Localized swelling of left lower leg - ICD9: 782.2, ICD10: R22.42 - US DVT LOWER LEFT Valerie Deshpande APRN.INTEGRATED CIRCUIT DESIGN ENGINEER documented in this encounterPeoples Hospital12-23-2024 NoteHNO ID: [id number] Author: TAZ MARIE LPN Service: ? 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 June 14, 2024 8:21am Persistent atrial fibrillation ruled -out June 14, 2024 8:21am Bradycardia with 41-50 beats per minute inactive June 14 8:21am 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 June 282024 12:57pm Persistent atrial fibrillation ruled -out June 28, 2024 12:57pm Persistent atrial fibrillation ruled -out July 19, 2024 2:59pm Bradycardia inactive July 19, 2024 2:59pm Status post cardiac pacemake r procedure inactive July 19 2:59pm 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 June 242024 8:53am Sick sinus syndrome chronic 2024 8:53am Persistent atrial fibrillation ruled -out July 20, 2024 8:53am Bradycardia inactive July 20, 2024 8:53am Status post cardiac pacemake r procedure inactive July 20 8:53am BPH (benign prostatic hyperplasia) acute July 22 10:18am Debility acute July 22, 2024 10:18am Depression acute Sonia 30th, 2025 10:18am Difficulty swallowing acute Jun 10:18am Essential (primary) hypertension acute July 22 10:18am Hyperlipidemia acute July 222024 10:18am Hypokalemia acute July 22, 2024 10:18am Hypothyroidism acute July 222024 10:18am Imbalance acute July 22, 2024 10:18am Insomnia acute July 22, 2024 10:18am Neuropathy acute July 22, 2024 10:18am Stroke acute July 22, 2024 10:18am SVT (supraventricular tachycardia) acute July 22 10:18am 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 June 282024 12:57pm Persistent atrial fibrillation ruled -out June 28, 2024 12:57pm Persistent atrial fibrillation ruled -out July 19, 2024 2:59pm Bradycardia inactive July 19, 2024 2:59pm Status post cardiac pacemake r procedure inactive July 19 2:59pm 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 June 242024 8:53am Sick sinus syndrome chronic 2024 8:53am Persistent atrial fibrillation ruled -out July 20, 2024 8:53am Bradycardia inactive July 20, 2024 8:53am Status post cardiac pacemake r procedure inactive July 20 8:53am BPH (benign prostatic hyperplasia) acute July 22 10:18am Debility acute July 22, 2024 10:18am Depression acute July 22, 2024 10:18am Difficulty swallowing acute Jun 10:18am Essential (primary) hypertension acute July 22 10:18am Hyperlipidemia acute July 222024 10:18am Hypokalemia acute July 22, 2024 10:18am Hypothyroidism acute July 222024 10:18am Imbalance acute July 22, 2024 10:18am Insomnia acute July 22, 2024 10:18am Neuropathy acute July 22, 2024 10:18am Stroke acute July 22, 2024 10:18am SVT (supraventricular tachycardia) acute July 22 10:18am 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 June 252024 10:18am Sick sinus syndrome chronic 2024 10:18am Persistent atrial fibrillation ruled -out July 22, 2024 10:18am Status post cardiac pacemake r procedure inactive July 22 10:18am Difficulty swallowing acute Feb ruary 2024 2:37pm History of pacemaker acute 2024 11:29am 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 Work Phone: 1(293) 510-681012-23-2024 Evaluation note* Diagnosis Onset Date Resolution Status Admit Date High cholesterol acute June 14, 2024 8:21am Hypertension chronic May 8:21am 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 resolved June 14, 2024 8:21am Persistent atrial fibrillation ruled -out June 14, 2024 8:21am Bradycardia with 41-50 beats per minute inactive June 14, 8:21am 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 resolved June 282024 12:57pm Persistent atrial fibrillation ruled -out June 28, 2024 12:57pm Persistent atrial fibrillation ruled -out July 19, 2024 2:59pm Bradycardia inactive July 19, 2024 2:59pm Status post cardiac pacemake r procedure inactive July 19 2:59pm 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 resolved June 242024 8:53am Sick sinus syndrome resolved 2024 8:53am Persistent atrial fibrillation ruled -out July 20, 2024 8:53am Bradycardia inactive July 20, 2024 8:53am Status post cardiac pacemake r procedure inactive July 20 8:53am BPH (benign prostatic hyperplasia) acute July 22 10:18am Debility acute July 22, 2024 10:18am Depression acute July 22, 2024 10:18am Essential (primary) hypertension acute July 22 10:18am Hyperlipidemia acute July 222024 10:18am Hypokalemia acute July 22, 2024 10:18am Hypothyroidism acute July 222024 10:18am Insomnia acute July 22, 2024 10:18am Neuropathy acute July 22, 2024 10:18am Difficulty swallowing resolved Jun 10:18am Imbalance resolved July 22, 2024 10:18am 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 resolved June 252024 10:18am Sick sinus syndrome resolved Janua ry 2024 10:18am Stroke resolved July 22, 2024 10:18am SVT (supraventricular tachycardia) resolved July 22 10:18am Persistent atrial fibrillation ruled -out July 22, 2024 10:18am Status post cardiac pacemake r procedure inactive July 22 10:18am Difficulty swallowing resolved Feb ruary 2024 2:37pm History of pacemaker acute Febr uary 2024 11:29am 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 resolved August 04, 2024 11:29am Sick sinus syndrome resolved Febru casandra 2024 11:29am Persistent atrial fibrillation ruled -out August 04, 2024 11:29am Difficulty swallowing resolved Aug 1:05pm History of pacemaker acute [place] 2024 11:02am 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 resolved August 11:02am Sick sinus syndrome resolved August 31, 2024 11:02am [facility] Work Phone: 1(610) 234-205712-19-2024 Telephone encounter Note* Telephone Encounter - Taz Marie LPN - 06/10/2024 9:28 AM EST Please see message form pt's . Taz Marie LPN [facility]12-[facility] Miscellaneous Notes* Telephone Encounter - Taz Marie LPN - 06/10/2024 9:28 AM EST Please see message form pt's . Taz Marie LPN documented in this encounterPeoples Hospital12-19-2024 NoteHNO ID: [id number] Author: TAZ MARIE LPN Service: ? Author Type: LICENSED NURSE Type: Progress Notes Filed: 06/10/2024 07:43 Note Text: Scan on 06/09/2024 8:50 PM by Provider, ALESSIO Carlos: Consultation - [facility]12-19-2024 History of Present illness Narrative* Taz Marie LPN - 06/10/2024 7:43 AM EST Scan on 06/09/2024 8:50 PM by ProviderTerrance PA-C: Consultation - Emergency Medicine documented in this encounterPeoples Hospital12-18-2024 Telephone encounter Note * Telephone Encounter - Jose Fam MD - 06/09/2024 8:05 PM EST Noted. [facility] Miscellaneous Notes* Telephone Encounter - Jose Fam MD - 06/09/2024 8:05 PM EST Noted. * Telephone Encounter - Nick Spence MA - 06/09/2024 6:34 PM EST Spoke with Patient and and gave Dr. Fam note. They are going to go to [facility]. Sending information to [facility] ER. Nick pSence MA * Telephone Encounter - Jose Fam MD - 06/09/2024 6:02 PM EST Let know that if the plavix was held just for the gastro procedure he can go back on it. However it will not be affective at preventing a stroke related to the A. Flutter. Based on his risk factors he is at risk for getting a clot and should be anticoagulated. However with his Hx of falls if he does fall and hits his head he will likely bleed into the brain and this could be life threatening. If they want the anticoagulation then they need to go to the ER. It may be best to go to [place] [facility] since it is [facility]. They can read the notes from today and possibly reach out to Dr. Jose or who is covering for him. * Telephone Encounter - Virginia Pace RN - 06/09/2024 5:04 PM EST Spouse calls to question why she hasn't received a call back in regards to Plavix. Notified awaiting provider review. Reviewed messages below. Offered to have EKG faxed to [facility] and spouse reports that they are waiting for an answer on the Plavix and then wanting Dr. Fam's recommendation and orders be faxed to [facility]. Reviewed recommendationsbelow but spouse wanting Dr. Fam to advise on them what he wants done. Virginia Pace RN * Telephone Encounter - Nick Spence MA - 06/09/2024 1:09 PM EST Patient's and patient notified. 's question is that should patient resume his Plavix? She will discuss with Regan on either going to the ER or Waiting on cardiology. Nick Spence MA * Telephone Encounter - Jose Fam MD - 06/09/2024 12:23 PM EST Let know the EKG from this morning does show A. Flutter. His rate is controlled at 54. His chads: score is a 6 but he also at moderate risk for falls and may not be a candidate for anticoagulation. Options are: 1) wait to get cardiologies input. 2) take him to local ER and we can fax the EKG's to them and ask for assistance on getting him anticoagulated. * Telephone Encounter - Nick Spence MA - 06/09/2024 10:49 AM EST Patient's stopped by office with copies of patient's abnormal EKG's from this morning and the one back in from March. He was having a procedure and they cancelled to A-flutter. EKG's on PCP desk. wanted Dr Fam to be aware. Dr. Jose is his Harness Builder and indicated that this will needed addressed. Please see phone note fro 04/29/2024 Nick Spence MA documented in this encounterPeoples Hospital12-18-2024 Telephone encounter Note * Telephone Encounter - Nick Spence MA - 06/09/2024 6:34 PM EST Spoke with Patient and and gave Dr. Fam note. They are going to go to [facility]. Sending information to [facility] ER. Nick Spence MA [facility]12-18-2024 Telephone encounter Note* Telephone Encounter - Jose Fam MD - 06/09/2024 6:02 PM EST Let know that if the plavix was held just for the gastro procedure he can go back on it. However it will not be affective at preventing a stroke related to the A. Flutter. Based on his risk factors he is at risk for getting a clot and should be anticoagulated. However with his Hx of falls if he does fall and hits his head he will likely bleed into the brain and this could be life threatening. If they want the anticoagulation then they need to go to the ER. It may be best to go to [place] [facility] since it is [facility]. They can read the notes from today and possibly reach out to Dr. Jose or who is covering for him. [facility]12-18-[facility] Telephone encounter Note* Telephone Encounter - Virginia Pace, HASEEB - 06/09/2024 5:04 PM EST Spouse calls to question why she hasn't received a call back in regards to Plavix. Notified awaiting provider review. Reviewed messages below. Offered to have EKG faxed to [facility] and spouse reports that they are waiting for an answer on the Plavix and then wanting Dr. Fam's recommendation and orders be faxed to [facility]. Reviewed recommendationsbelow but spouse wanting Dr. Fam to advise on them what he wants done. Virginia Pace RN [facility]12-18-2024 Telephone encounter Note* Telephone Encounter - Nick Spence MA - 06/09/2024 1:09 PM EST Patient's and patient notified. 's question is that should patient resume his Plavix? She will discuss with Regan on either going to the ER or Waiting on cardiology. Nick Spence MA [facility]12-18-2024 Telephone encounter Note* Telephone Encounter - Jose Fam MD - 06/09/2024 12:23 PM EST Let know the EKG from this morning does show A. Flutter. His rate is controlled at 54. His chads: score is a 6 but he also at moderate risk for falls and may not be a candidate for anticoagulation. Options are: 1) wait to get cardiologies input. 2) take him to local ER and we can fax the EKG's to them and ask for assistance on getting him anticoagulated. [facility]12-18-2024 NoteHNO ID: [id number] Author: TAZ MARIE LPN Service: ? Author Type: LICENSED NURSE Type: Progress Notes Filed: 06/09/2024 11:08 Note Text: Scan on 06/09/2024 9:20 AM by Provider, [facility] History of Present illness Narrative* Taz Marie LPN - 06/09/2024 11:07 AM EST Scan on 06/09/2024 9:20 AM by Provider, ALESSIO Carlos documented in this encounterPeoples Hospital12-18-2024 Telephone encounter Note * Telephone Encounter - Nick Spence MA - 06/09/2024 10:49 AM EST Patient's stopped by office with copies of patient's abnormal EKG's from this morning and the one back in from March. He was having a procedure and they cancelled to A-flutter. EKG's on PCP desk. wanted Dr Fam to be aware. Dr. Jose is his Harness Builder and indicated that this will needed addressed. Please see phone note fro 04/29/2024 Nick Spence MA [facility]12-18-[facility]24 History and physical note Author Valente Friend [facility] Note Date/Time June 09, 2024 8:09am [facility] Medical Records Department [address] [place] [id number] History & Physical Exam 06/09/24 0906 MR#: [id number] Acct: [id number] Name: REGAN ARANGO Rep #:[id number] 5 : 1940 83 From: Valente Campoverde DO PCP: Dr. Jose Fam MD Status:[facility] Location: [place] [address] HPI - General General Date of Admission: 06/09/24 Date of Service: 06/09/24 Chief Complaint: Dysphagia HPI Narrative REGAN ARANGO, is a 83 M who presents to the office today for f/u. Pt has a hx of dysphagia but it was well controlled for a time period. Pt underwent EGD with dilation 9.7.22 and this helped with his dysphagia for some time. A few months ago he started again with sensation of food in his esophagus and choking episodes. He was recently hospitalized for what was believed to be aspiration pneumonia. He denies abdominal pain, n/v, constipation, diarrhea or melena. [facility] Medical History (Updated 06/09/24 @ 09:[address] Victor Friend, DO) Prostate disease Excessive bleeding Gastric reflux Neuropathy Shortness of breath on exertion Mobitz (type) I (Wenckebach's) atrioventricular block Wears glasses Cancer Thyroid disease Arthritis Hx of bladder cancer Bladder disease Easy bruising Restless legs Back pain Injury of head and neck Syncope Difficulty swallowing Non-smoker TIA (transient ischemic attack) History of pain when walking History of edema History of stress test Cardiology follow-up encounter Esophageal dysphagia High cholesterol Hypertension Home Medications ?Medication ?Instructions ?Recorded ?Last Taken ?Type lisinopril 5 mg tablet 2.5 mg PO DAILY 05/09/15 Unknown History pravastatin 20 mg tablet 20 mg PO QHS 05/09/15 Unknown History tamsulosin 0.4 mg capsule 0.4 mg PO DAILY 05/09/15 Unknown History trazodone 50 mg tablet 50 mg PO QHS 05/09/15 Unknown History clopidogrel 75 mg tablet 75 mg PO DAILY 04/14/24 Unknown History cyanocobalamin (vitamin B-12) 1,000 mcg PO DAILY 04/14/24 Unknown History 1,000 mcg tablet duloxetine 30 mg capsule,delayed 30 mg PO DAILY . 04/14/24 Unknown History release finasteride 5 mg tablet 5 mg PO DAILY 04/14/24 Unknown History gabapentin 600 mg tablet 1,200 mg PO TID neuropathy 04/14/24 Unknown History lmofznbq-cr-uayup 300 mcg-K 60 1 tab PO DAILY 04/14/24 Unknown History mcg-lycop 600 mcg-lutein 300 mcg tablet (Centrum Silver Men) potassium chloride 20 mEq 20 meq PO DAILY 04/14/24 Unknown History tablet,extended release(part/cryst) vitamins A,C,R-dnsz-tzabtz 2,148 1 tab PO BID supplement 04/14/24 Unknown History mcg-113 mg-45 mg-17.4 mg tablet (Eye Multivitamin) furosemide 20 mg tablet 20 mg PO QODAY 06/08/24 Unknown History levothyroxine 125 mcg tablet 125 mcg PO MOTUWETHFR 06/08/24 Unknown History levothyroxine 200 mcg capsule 250 mcg PO SUSA 06/08/24 Unknown History zinc gluconate 50 mg tablet 50 mg PO DAILY 06/08/24 Unknown History Allergy/AdvReac Type Severity Reaction Status Date / Time oxybutynin (From Ditropan) Allergy Intermediate Nausea/Vom/ Verified 06/08/24 10:39 Diarrhea prednisone AdvReac Nausea Verified 06/08/24 10:37 Surgical History History of esophagogastroduodenoscopy (EGD) History of laparoscopic cholecystectomy Hx of colonoscopy Hx of repair of left rotator cuff Hx of repair of right rotator cuff Hx of microdiscectomy History of lumbar spinal fusion Social History Smoking Status: Never smoker alcohol intake: never substance use type: does not use Physical Exam Const alert and no apparent distress HEENT head/scalp atraumatic and moist oral mucous membranes Resp normal respiratory effort, no retractions, no use of accessory muscles and clearto auscultation bilaterally Cardio regular rate, regular rhythm, S1 normal heart sound and S2 normal heart sound GI normal to inspection, nondistended, normoactive bowel sounds, soft to palpation and non-tender Extremity normal to inspection Assessment & Plan Assessment/Plan (1) Difficulty swallowing: PLAN: Assessment and Plan Assessment and Plan (1) Disorder of esophagus: Plan: This is an 83 yo male withe hx of esophageal stenosis dilated in 2021. For a fewmonths now he has had increasing issues with dysphagia. He has sensation of foodin his esophagus and choking episodes every couple of weeks. He is not on PPI therapy. He will undergo EGD with dilation. I recommended PPI therapy. -EGD with dilation -Recommended PPI 06/09/24908 <Electronically signed by Valente Campoverde DO> Cosigner Signature (if applicable): CC: Dr. Jose Fam MD; Valente Campoverde DO~ Signed [facility] Work Phone: 1(928) 552-225212-18-2024 [facility]12-18-2024 History and physical note [facility] Medical Records Department [address] [place] [address] History & Physical Exam 06/09/24 09 MR#: [id number] Acct: [id number] Name: REGAN ARANGO Rep #:[id number] 5 : 1940 83 From: Valente Campoverde DO PCP: Dr. Jose Fam MD Status:[facility] Location: [place] [address] HPI - General General Date of Admission: 06/09/24 Date of Service: 06/09/24 Chief Complaint: Dysphagia HPI Narrative REGAN ARANGO, is a 83 M who presents to the office today for f/u. Pt has a hx of dysphagia but it was well controlled for a time period. Pt underwent EGD with dilation 9.01.11 and this helped with his dysphagia for some time. A few months ago he started again with sensation of food in his esophagus and choking episodes. He was recently hospitalized for what was believed to be aspiration pneumonia. He denies abdominal pain, n/v, constipation, diarrhea or melena. [facility] Medical History (Updated 06/09/24 @ 09:[address] Victor Friend, ) Prostate disease Excessive bleeding Gastric reflux Neuropathy Shortness of breath on exertion Mobitz (type) I (Wenckebach's) atrioventricular block Wears glasses Cancer Thyroid disease Arthritis Hx of bladder cancer Bladder disease Easy bruising Restless legs Back pain Injury of head and neck Syncope Difficulty swallowing Non-smoker TIA (transient ischemic attack) History of pain when walking History of edema History of stress test Cardiology follow-up encounter Esophageal dysphagia High cholesterol Hypertension Home Medications ?Medication ?Instructions ?Recorded ?Last Taken ?Type lisinopril 5 mg tablet 2.5 mg PO DAILY 05/09/15 Unknown History pravastatin 20 mg tablet 20 mg PO QHS 05/09/15 Unknown History tamsulosin 0.4 mg capsule 0.4 mg PO DAILY 05/09/15 Unknown History trazodone 50 mg tablet 50 mg PO QHS 05/09/15 Unknown History clopidogrel 75 mg tablet 75 mg PO DAILY 04/14/24 Unknown History cyanocobalamin (vitamin B-12) 1,000 mcg PO DAILY 04/14/24 Unknown History 1,000 mcg tablet duloxetine 30 mg capsule,delayed 30 mg PO DAILY . 04/14/24 Unknown History release finasteride 5 mg tablet 5 mg PO DAILY 04/14/24 Unknown History gabapentin 600 mg tablet 1,200 mg PO TID neuropathy 04/14/24 Unknown History itvaiqpi-cv-zkmct 300 mcg-K 60 1 tab PO DAILY 04/14/24 Unknown History mcg-lycop 600 mcg-lutein 300 mcg tablet (Centrum Silver Men) potassium chloride 20 mEq 20 meq PO DAILY 04/14/24 Unknown History tablet,extended release(part/cryst) vitamins A,C,M-dymq-bsrcya 2,148 1 tab PO BID supplement 04/14/24 Unknown History mcg-113 mg-45 mg-17.4 mg tablet (Eye Multivitamin) furosemide 20 mg tablet 20 mg PO QODAY 06/08/24 Unknown History levothyroxine 125 mcg tablet 125 mcg PO MOTUWETHFR 06/08/24 Unknown History levothyroxine 200 mcg capsule 250 mcg PO SUSA 06/08/24 Unknown History zinc gluconate 50 mg tablet 50 mg PO DAILY 06/08/24 Unknown History Allergy/AdvReac Type Severity Reaction Status Date / Time oxybutynin (From Ditropan) Allergy Intermediate Nausea/Vom/ Verified 06/08/24 10:39 Diarrhea prednisone AdvReac Nausea Verified 06/08/24 10:37 Surgical History History of esophagogastroduodenoscopy (EGD) History of laparoscopic cholecystectomy Hx of colonoscopy Hx of repair of left rotator cuff Hx of repair of right rotator cuff Hx of microdiscectomy History of lumbar spinal fusion Social History Smoking Status: Never smoker alcohol intake: never substance use type: does not use Physical Exam Const alert and no apparent distress HEENT head/scalp atraumatic and moist oral mucous membranes Resp normal respiratory effort, no retractions, no use of accessory muscles and clearto auscultation bilaterally Cardio regular rate, regular rhythm, S1 normal heart sound and S2 normal heart sound GI normal to inspection, nondistended, normoactive bowel sounds, soft to palpation and non-tender Extremity normal to inspection Assessment & Plan Assessment/Plan (1) Difficulty swallowing: PLAN: Assessment and Plan Assessment and Plan (1) Disorder of esophagus: Plan: This is an 83 yo male withe hx of esophageal stenosis dilated in 2021. For a fewmonths now he has had increasing issues with dysphagia. He has sensation of foodin his esophagus and choking episodes every couple of weeks. He is not on PPI therapy. He will undergo EGD with dilation. I recommended PPItherapy. -EGD with dilation -Recommended PPI 06/09/24908 Cosigner Signature (if applicable): CC: Dr. Jose Fam MD; Valente Campoverde, DO~ Signed [facility]12[facility]06[facility] History of Present illness Narrative* Valerie Deshapnde, FRANCY.INTEGRATED CIRCUIT DESIGN ENGINEER - 05/28/2024 11:18 AM EST Chief Complaint Patient presents with: Follow Up HPI Regan Arango is a 83 year old male who presents here today for Above Complaints.. Patient presents for BP follow up. Patient reports he is currently taking lasix 20mg every other day. Patient reports swelling to bilat lower extremities which is chronic. Past medical history, appointments, medications, allergies reviewed. Previous Medical History PAST MEDICAL HISTORY Diagnosis Date 1st degree AV block 09/08/2015 AC (acromioclavicular) joint arthritis 08/09/2009 Acquired hypothyroidism 04/03/2015 Actinic skin damage 03/08/2012 Acute, but ill-defined, cerebrovascular disease 07/13/2008 Advance directive discussed with patient 03/21/2022 Discussed 02/2022 Anemia 07/24/2015 Arthritis of knee 10/30/2011 At risk for falls 05/28/2019 Atypical nevus of thoracic region 02/03/2014 Balance problem 04/24/2014 Due to CVA in 2008 and right leg weakness Bilateral carotid artery stenosis 12/27/2021 US 12/2021: R 40-60% L 20-40% Bilateral leg edema 08/01/2014 Bladder cancer (HCC) 09/07/2014 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 Friend Essential hypertension Essential hypertension Familial peripheral neuropathy 06/02/2015 Gait difficulty 04/29/2016 Gastroesophageal reflux disease without esophagitis 04/03/2015 Greater trochanteric bursitis 03/20/2016 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09/04/2012 History of bladder cancer 04/09/2023 History of CVA (cerebrovascular accident) 02/2008 residual weakness in right leg History of giant cell arteritis 03/29/2008 Hx of long-term use of blood thinners Irritated//Inflamed Seborrheic Keratosis 03/08/2012 Living will on file 03/21/2022 DPA: Sudarshan () Low back pain 01/13/2014 Low serum vitamin B12 04/16/2022 Lower urinary tract symptoms (LUTS) 08/02/2014 Lumbar stenosis with neurogenic claudication 01/13/[address] Starr Memory difficulties 04/12/2022 04/12/22 MMSE: 29 Mild pulmonary hypertension (HCC) 09/22/[address] Hamilton, not able to tolerate CPAP for JESSY. 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 Pain in both hands 12/19/2015 Postlaminectomy syndrome 05/08/2010 Premature supraventricular beats 09/08/2015 Pulmonary nodule 08/06/[address] [facility] on 08/01/22. Repeat in 3-6 months. Multiple nodules up to 7mm in size. Right leg weakness 04/25/2014 Sebaceous cyst 06/08/2009 Stasis dermatitis of both legs 06/02/2015 SVT (supraventricular tachycardia) (HCC) 07/17/2020 SVT (supraventricular tachycardia) (HCC) 07/17/2020 Thoracic or lumbosacral neuritis or radiculitis, unspecified 05/05/2009 Thumb pain, left 11/26/2017 Tinnitus 07/26/2017 Unspecified arthropathy, lower leg 10/12/2008 Venous insufficiency (chronic) (peripheral) 06/02/2015 Vertigo following cerebrovascular accident 07/23/2010 Viral warts, unspecified 04/09/2013 Xerosis cutis 09/04/2012 Previous Surgical History PAST SURGICAL HISTORY Procedure Laterality Date 2D ECHO (EXEP) 08/2015 EF=64%, 1+ TR and mild Pulm HTN COLONOSCOPY FLX DX W/COLLJ SPEC WHEN PFRMD 02/06/2011 Colonoscopy, repeat 10 yrs CYSTO W/REMOVAL OF LESIONS MINOR <0.5CM 08/31/2014 ESOPHAGOGASTRODUODENOSCOPY TRANSORAL DIAGNOSTIC 12/14/2018 EGD FASCT PALM W/WO Z-PLASTY TISSUE REARGMT/SKN GRFT Left 09/08/2018 Left 3rd finger fascietomy with skin graft, left 4th finger facietomy with local soft tissue rearrangements and trigger finger release L3-4 and L4-5 laminoforaminotomy 2009 LAPAROSCOPIC CHOLECYSTECTOMY 02/25/2024 LIGATION/BIOPSY TEMPORAL ARTERY 03/30/2008 RIGHT, negitive. LUMBAR SPINE FUSION COMBINED 05/05/2015 MAL LESION FACE,EAR,EYEL 1.1-2CM 04/20/2008 Exc. right lateral islam skin lesion and right forehead OPEN REPAIR OF ROTATOR CUFF ACUTE 2000 Rotator cuff repair left PAST SURGICAL HISTORY OF ingrown toe nail removed PAST SURGICAL HISTORY OF 1965 cyst removed from bottom of spine REMOVAL GALLBLADDER 02/25/2024 SHOULDER ARTHROSCOPY/SURGERY 08/02/2010 Open Rt subacromial decompression STRESS TEST 04/10/2015 WNL STRESS TEST NUCLEAR 07/09/2018 negative Family History FAMILY HISTORY Problem Relation Age of Onset Hypertension Mother Stroke Mother other (headaches) Mother Ischemic Heart Disease Father Heart Brother Patient Allergies ALLERGIES Allergen Reactions Ditropan [Oxybutyni* Other: See Comments Nausea, brain fog, increased weakness, decreased appetite, and increased restless leg symptoms. Prednisone Other: See Comments Had GI problems, headaches. Patient states he was on high dose for almost 90 days Current Medications Current Outpatient Medications on File Prior to Visit Medication Sig Walker misc Needs fitted for height of 6' and weight of 286 lbs. Dx:R26.9 and M48.062 furosemide (LASIX) 20 mg tablet Take 1 tablet by mouth every other day. clopidogrel (PLAVIX) 75 mg tablet Take 1 tablet by mouth once daily. clopidogrel (PLAVIX) 75 mg tablet Take 1 tablet by mouth once daily. MV with Zti-Bekfbazc-Cfvrxr (CENTRUM SILVER) 0.4 mg-300 mcg- 250 mcg tab Take 1 tablet by mouth once daily. traZODone (DESYREL) 50 mg tablet Take 1 tablet by mouth daily at bedtime. traZODone (DESYREL) 50 mg tablet Take 1 tablet by mouth daily at bedtime. gabapentin (NEURONTIN) 600 mg tablet Take 2 tablets by mouth three times a day for 180 days. tamsulosin (FLOMAX) 0.4 mg TAKE 1 CAPSULE ONE TIME DAILY 30 MINUTES AFTER THE SAME MEAL EACH DAY DULoxetine (CYMBALTA) 30 mg capsule Take 1 capsule by mouth once daily. lisinopril 2.5 mg tablet Take 1 tablet by mouth once daily. pravastatin (PRAVACHOL) 20 mg tablet Take 1 tablet by mouth once daily. levothyroxine (LEVOXYL) 125 mcg tablet Take one tab daily Fri-Fri and two on Friday and FridayTake on empty stomach. For thyroid. finasteride (PROSCAR) 5 mg tablet Take 1 tablet by mouth once daily. potassium chloride ER (KLOR-CON M20) 20 mEq tablet Take 1 tablet by mouth once daily. cyanocobalamin (VITAMIN B-12) 1,000 mcg tab Take 1 tablet by mouth once daily. vit C/E/Zn/coppr/lutein/zeaxan (PRESERVISION AREDS-2 ORAL) Take by mouth two times a day. ZINC ORAL Take 50 mg by mouth once daily. COMPOUNDED PRESCRIPTION rollator walker #: one Dx: I63.50, Z86.73, R26.89, G60.9, M62.81 and M48.06 No current facility-administered medications on file prior to visit. Social History Social History Tobacco Use Smoking status: Never Passive exposure: Never Smokeless tobacco: Never Vaping Use Vaping status: Never Used Substance Use Topics Alcohol use: Not Currently Drug use: Never Review of Symptoms REVIEW OF SYSTEMS SEE HPI EXAM: BP 138/70 Pulse (!) 56 Resp 16 Wt 130.2 kg (287 lb) BMI 39.47 kg/m General Appearance: Well appearing, alert, in no acute distress, well-hydrated, well nourished. Lungs: Lungs clear to auscultation. No wheezing, rhonchi, rales.. Heart: RRR without murmur, gallop, or rubs. No ectopy. Extremities: Edema: Left lower ext 1+ pitting edema, Right lower ext 1-2+ pitting edema. Health Maintenance List Shingrix Vaccine(1 of 2) Never done RSV Vaccine(1 - 1-dose 75+ series) due on 04/09/2025 Depression Screening due on 10/08/2024 Anxiety Screening due on 10/08/2024 DTaP,Tdap,Td Vaccine(2 - Td or Tdap) due on 02/01/2025 Diabetes Screening due on 05/13/2027 Influenza Vaccine Completed Advance Directive Discussion Completed Covid-19 Vaccine Completed Pneumococcal Vaccine: 65+ Completed HPV Vaccine Aged Out Data reviewed Last 5 Encounter BP Readings: Date: BP: 05/28/2024 138/70 04/22/2024 100/47 04/09/2024 120/64 03/10/2024 122/62 03/01/2024 124/56 ASSESSMENT/PLAN: 1. Essential hypertension - ICD9: 401.9, ICD10: I10 (primary diagnosis) - Controlled - Continue current medications, continue with lasix every other day dosing - Recommend home blood pressure monitoring, to bring results to next visit - Encouraged sodium restriction, DASH or Mediterranean diet - Recommend regular aerobic exercise 2. Bilateral leg edema - ICD9: 782.3, ICD10: R60.0 - Continue with lasix every other day dosing Valerie Deshpande APRN.INTEGRATED CIRCUIT DESIGN ENGINEER [facility] Tele[facility] encounter Note * Telephone Encounter - Jose Fam MD - 05/02/2024 1:56 PM EST Noted. [facility] Miscellaneous Notes* Telephone Encounter - Jose Fam MD - 05/02/2024 1:56 PM EST Noted. * Telephone Encounter - Noemy Washington RN - 04/30/2024 2:06 PM EST Patient's notified of results and provider's instructions. Patient's verbalizes understanding. If Dr. Fam thinks it is best then they will just continue to monitor. If patient develops any dizziness or other symptoms then patient and will give office a call back. Noemy Washington RN * Telephone Encounter - Taz Marie LPN - 04/30/2024 2:01 PM EST Left message for pt's to contact office. Taz Marie LPN * Telephone Encounter - Jose Fam MD - 04/30/2024 1:05 PM EST Let patient's know I did get a response from one of our cardiologists who looked at Regan's halter done in 2022 and noted it showed the same conduction changes as his recent hospital stay. He also said running in the 30-40's during sleep is not abnormal. Since he is not complaining of frequent episodes of dizziness or any dizziness and no passing out we can monitor. Otherwise I can place an order for a 30 day event monitor by [facility]. * Telephone Encounter - Virginia Pace RN - 04/29/2024 12:01 PM EST Patient calls to see if provider has been able to get him a sooner appointment with Dr. Jose. Per OV notes 04/22/2024: 4. Bradycardia, unspecified - ICD9: 427.89, ICD10: R00.1- sounds paroxysmal. Patient with known 1stdegree AV block. Hospital discharge note says Kavitha type 2; will reach out to cardio to help get af/u ppt set up. Message was sent to Dr. Jose on 04/22/2024 from provider and appears no response back yet. Forwarding to office per patient request. Virginia Pace RN [facility] Telephone encounter Note * Telephone Encounter - Noemy Washington RN - 04/30/2024 2:06 PM EST Patient's notified of results and provider's instructions. Patient's verbalizes understanding. If Dr. Fam thinks it is best then they will just continue to monitor. If patient develops any dizziness or other symptoms then patient and will give office a call back. Noemy Washington RN [facility]11-08-[facility] Telephone encounter Note* Telephone Encounter - Taz Marie LPN - 04/30/2024 2:01 PM EST Left message for pt's to contact office. Taz Marie LPN [facility] Telephone encounter Note* Telephone Encounter - Jose Fam MD - 04/30/2024 1:05 PM EST Let patient's know I did get a response from one of our cardiologists who looked at Regan's halter done in 2022 and noted it showed the same conduction changes as his recent hospital stay. He also said running in the 30-40's during sleep is not abnormal. Since he is not complaining of frequent episodes of dizziness or any dizziness and no passing out we can monitor. Otherwise I can place an order for a 30 day event monitor by [facility]. [facility] Telephone encounter Note* Telephone Encounter - Virginia Pace RN - 04/29/2024 12:01 PM EST Patient calls to see if provider has been able to get him a sooner appointment with Dr. Jose. Per OV notes 04/22/2024: 4. Bradycardia, unspecified - ICD9: 427.89, ICD10: R00.1- sounds paroxysmal. Patient with known 1stdegree AV block. Hospital discharge note says Kavitha type 2; will reach out to cardio to help get af/u ppt set up. Message was sent to Dr. Jose on 04/22/2024 from provider and appears no response back yet. Forwarding to office per patient request. Virginia Pace RN [facility] Instructions* Patient Instructions* Jose Fam MD - 04/22/2024 12:04 PM EDT Please get lab for electrolyte panel a few days prior to you follow up for the change in the Furosamide dosing to every other day. [facility] History of Present illness Narrative* Jose Fam MD - 04/22/2024 11:00 AM EDT Images from the original note were not included. Chief Complaint Patient presents with: Hospital F/U HPI Regan Arango is a 83 year old male who presents here today for Hospital Discharge Follow up.. Patient was admitted to [facility] on 04/14/2024 for Sepsis, Pneumonia, Metabolic encephalopathy and Atrioventricular block second degree. Patient was discharged with levofloxacin. Patient does have issues with esophageal dysphagia and has a follow up with Dr. Campoverde on . Patient c/o urine frequency with the diuretic and wanting to know if the dose can be reduced. Patient was advised not to drive until he was done with the antibiotic. Patient finished it yesterday. He developed diarrhea wile on the antibiotic. Patient has been taking pro-biotic. The diarrhea did stopped. No fevers since he has been home. His cough is improved. No longer bring up as much mucus and more of it is clear. No hemoptysis. No shortness of breath. Per the encephalopathy has resolved. Per patient's pulse was in the 40's last night and one time in the thirties. Past medical history, appointments, medications, allergies reviewed. Previous Medical History PAST MEDICAL HISTORY Diagnosis Date 1st degree AV block 09/08/2015 AC (acromioclavicular) joint arthritis 08/09/2009 Acquired hypothyroidism 04/03/2015 Actinic skin damage 03/08/2012 Acute, but ill-defined, cerebrovascular disease 07/13/2008 Advance directive discussed with patient 03/21/2022 Discussed 02/2022 Anemia 07/24/2015 Arthritis of knee 10/30/2011 At risk for falls 05/28/2019 Atypical nevus of thoracic region 02/03/2014 Balance problem 04/24/2014 Due to CVA in 2008 and right leg weakness Bilateral carotid artery stenosis 12/27/2021 US 12/2021: R 40-60% L 20-40% Bilateral leg edema 08/01/2014 Bladder cancer (HCC) 09/07/2014 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 Campoverde Essential hypertension Essential hypertension Familial peripheral neuropathy 06/02/2015 Gait difficulty 04/29/2016 Gastroesophageal reflux disease without esophagitis 04/03/2015 Greater trochanteric bursitis 03/20/2016 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09/04/2012 History of bladder cancer 04/09/2023 History of CVA (cerebrovascular accident) 02/2008 residual weakness in right leg History of giant cell arteritis 03/29/2008 Hx of long-term use of blood thinners Irritated//Inflamed Seborrheic Keratosis 03/08/2012 Living will on file 03/21/2022 DPA: Sudarshan () Low back pain 01/13/2014 Low serum vitamin B12 04/16/2022 Lower urinary tract symptoms (LUTS) 08/02/2014 Lumbar stenosis with neurogenic claudication 01/13/[address] Starr Memory difficulties 04/12/2022 04/12/22 MMSE: 29/30 Mild pulmonary hypertension (HCC) 09/22/[address] Hamilton, not able to tolerate CPAP for JESSY. 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 Pain in both hands 12/19/2015 Postlaminectomy syndrome 05/08/2010 Premature supraventricular beats 09/08/2015 Pulmonary nodule 08/06/[address] at [facility] on 08/01/22. Repeat in 3-6 months. Multiple nodules up to 7mm in size. Right leg weakness 04/25/2014 Sebaceous cyst 06/08/2009 Stasis dermatitis of both legs 06/02/2015 SVT (supraventricular tachycardia) (HCC) 07/17/2020 SVT (supraventricular tachycardia) (HCC) 07/17/2020 Thoracic or lumbosacral neuritis or radiculitis, unspecified 05/05/2009 Thumb pain, left 11/26/2017 Tinnitus 07/26/2017 Unspecified arthropathy, lower leg 10/12/2008 Venous insufficiency (chronic) (peripheral) 06/02/2015 Vertigo following cerebrovascular accident 07/23/2010 Viral warts, unspecified 04/09/2013 Xerosis cutis 09/04/2012 Previous Surgical History PAST SURGICAL HISTORY Procedure Laterality Date 2D ECHO (EXEP) 08/2015 EF=64%, 1+ TR and mild Pulm HTN COLONOSCOPY FLX DX W/COLLJ SPEC WHEN PFRMD 02/06/2011 Colonoscopy, repeat 10 yrs CYSTO W/REMOVAL OF LESIONS MINOR <0.5CM 08/31/2014 ESOPHAGOGASTRODUODENOSCOPY TRANSORAL DIAGNOSTIC 12/14/2018 EGD FASCT PALM W/WO Z-PLASTY TISSUE REARGMT/SKN GRFT Left 09/08/2018 Left 3rd finger fascietomy with skin graft, left 4th finger facietomy with local soft tissue rearrangements and trigger finger release L3-4 and L4-5 laminoforaminotomy 2009 LAPAROSCOPIC CHOLECYSTECTOMY 02/25/2024 LIGATION/BIOPSY TEMPORAL ARTERY 03/30/2008 RIGHT, negitive. LUMBAR SPINE FUSION COMBINED 05/05/2015 MAL LESION FACE,EAR,EYEL 1.1-2CM 04/20/2008 Exc. right lateral islam skin lesion and right forehead OPEN REPAIR OF ROTATOR CUFF ACUTE 2000 Rotator cuff repair left PAST SURGICAL HISTORY OF ingrown toe nail removed PAST SURGICAL HISTORY OF 1965 cyst removed from bottom of spine REMOVAL GALLBLADDER 02/25/2024 SHOULDER ARTHROSCOPY/SURGERY 08/02/2010 Open Rt subacromial decompression STRESS TEST 04/10/2015 WNL STRESS TEST NUCLEAR 07/09/2018 negative Family History FAMILY HISTORY Problem Relation Age of Onset Hypertension Mother Stroke Mother other (headaches) Mother Ischemic Heart Disease Father Heart Brother Patient Allergies ALLERGIES Allergen Reactions Ditropan [Oxybutyni* Other: See Comments Nausea, brain fog, increased weakness, decreased appetite, and increased restless leg symptoms. Prednisone Other: See Comments Had GI problems, headaches. Patient states he was on high dose for almost 90 days Current Medications Current Outpatient Medications on File Prior to Visit Medication Sig clopidogrel (PLAVIX) 75 mg tablet Take 1 tablet by mouth once daily. clopidogrel (PLAVIX) 75 mg tablet Take 1 tablet by mouth once daily. MV with Mdd-Zuazfbje-Nsihrn (CENTRUM SILVER) 0.4 mg-300 mcg- 250 mcg tab Take 1 tablet by mouth once daily. traZODone (DESYREL) 50 mg tablet Take 1 tablet by mouth daily at bedtime. traZODone (DESYREL) 50 mg tablet Take 1 tablet by mouth daily at bedtime. gabapentin (NEURONTIN) 600 mg tablet Take 2 tablets by mouth three times a day for 180 days. tamsulosin (FLOMAX) 0.4 mg TAKE 1 CAPSULE ONE TIME DAILY 30 MINUTES AFTER THE SAME MEAL EACH DAY DULoxetine (CYMBALTA) 30 mg capsule Take 1 capsule by mouth once daily. lisinopril 2.5 mg tablet Take 1 tablet by mouth once daily. pravastatin (PRAVACHOL) 20 mg tablet Take 1 tablet by mouth once daily. levothyroxine (LEVOXYL) 125 mcg tablet Take one tab daily Mon-Fri and two on Friday and FridayTake on empty stomach. For thyroid. finasteride (PROSCAR) 5 mg tablet Take 1 tablet by mouth once daily. potassium chloride ER (KLOR-CON M20) 20 mEq tablet Take 1 tablet by mouth once daily. cyanocobalamin (VITAMIN B-12) 1,000 mcg tab Take 1 tablet by mouth once daily. furosemide (LASIX) 20 mg tablet Take 1 tablet by mouth once daily. vit C/E/Zn/coppr/lutein/zeaxan (PRESERVISION AREDS-2 ORAL) Take by mouth two times a day. ZINC ORAL Take 50 mg by mouth once daily. COMPOUNDED PRESCRIPTION rollator walker #: one Dx: I63.50, Z86.73, R26.89, G60.9, M62.81 and M48.06 No current facility-administered medications on file prior to visit. Social History Social History Tobacco Use Smoking status: Never Passive exposure: Never Smokeless tobacco: Never Vaping Use Vaping status: Never Used Substance Use Topics Alcohol use: Not Currently Drug use: Never Review of Symptoms REVIEW OF SYSTEMS See HPI EXAM: BP (!) 100/47 Pulse 60 Ht 181.6 cm (5' 11.5) Wt 129.7 kg (286 lb) BMI 39.33 kg/m General Appearance: Well appearing, alert, in no acute distress, well-hydrated, well nourished. andObese. Neck: Supple, no adenopathy; thyroid symmetric, normal size, no bruits. Lungs: Lungs clear to auscultation. No wheezing, rhonchi, rales.. Heart: RRR without murmur, gallop, or rubs. No ectopy. Extremities: No deformities. Mild lower leg edema, Health Maintenance List Shingrix Vaccine(1 of 2) Never done RSV Vaccine(1 - 1-dose 75+ series) due on 04/09/2025 Depression Screening due on 10/08/2024 Anxiety Screening due on 10/08/2024 DTaP,Tdap,Td Vaccine(2 - Td or Tdap) due on 02/01/2025 Diabetes Screening due on 03/29/2027 Influenza Vaccine Completed Advance Directive Discussion Completed Covid-19 Vaccine Completed Pneumococcal Vaccine: 65+ Completed HPV Vaccine Aged Out Data reviewed [facility] reports and studies. A/P ASSESSMENT/PLAN: 1. Bacterial pneumonia - ICD9: 482.9, ICD10: J15.9 (primary diagnosis) - resolved. 2. Metabolic encephalopathy - ICD9: 348.31, ICD10: G93.41 - resolved 3. Hypotension, unspecified hypotension type - ICD9: 458.9, ICD10: I95.9 - will have him go to taking the lasix 20 mg every other day. F/u in 2/3 weeks for BP check 4. Bradycardia, unspecified - ICD9: 427.89, ICD10: R00.1 - sounds paroxysmal. Patient with known 1st degree AV block. Hospital discharge note says Kavitha type 2; will reach out to cardio to help get a f/u ppt set up. 5. Gait difficulty - ICD9: 781.2, ICD10: R26.9 - script for walker given 6. Lumbar stenosis with neurogenic claudication - ICD9: 724.03, ICD10: M48.062 - as per 5 F/u 3 weeks BP check I spent a total of 40 minutes on the date of the service which included preparing to see the patient, [id number] patient care, completing clinical documentation, performing a medically appropriate examination, counseling and educating the patient/family/caregiver and ordering medications, tests, or procedures. Jose Fam MD [facility] Tele[facility] encounter Note* Telephone Encounter - Taz Marie LPN - 04/21/2024 11:28 AM EDT Spoke with pt. He advises that he just needs the Plavix refilled. Does need short term supply sent to [facility] and long-term to [facility]. Taz Marie LPN [facility]-30-[facility]24 Miscellaneous Notes* Telephone Encounter - Taz Marie LPN - 04/21/2024 11:28 AM EDT Spoke with pt. He advises that he just needs the Plavix refilled. Does need short term supply sent to [facility] and long-term to [facility]. Taz Marie LPN * Telephone Encounter - Phoebe Muro PA-C - 04/21/2024 10:05 AM EDT Please find out if he just needs short script sent to [facility]. What other medications is he referring to. Send back to PCP documented in this encounterPe[facility]10-30-2024 Telephone encounter Note * Telephone Encounter - Phoebe Muro PA-C - 04/21/2024 10:05 AM EDT Please find out if he just needs short script sent to [facility]. What other medications is he referring to. Send back to PCP [facility] History of Present illness Narrative* Nick Spence MA - 04/20/2024 3:51 PM EDT Scan on 04/14/2024 11:14 PM by ProviderTerrance PA-C: Consultation - Emergency Medicine Scan on 04/15/2024 6:07 AM by Terrance Haas PA-C Scan on 04/18/2024 11:32 AM by Terrance Haas PA-C: Consultation - Emergency Medicine Scan on 04/16/2024 12:50 PM by Terrance Haas PA-C: Discharge Summary Patient was already scheduled for hospital follow up. 04/22/2024 Nick Spence MA documented in this encounterPe[facility]10-27-2024 Telephone encounter Note * Telephone Encounter - Ana Cook RN - 04/18/2024 10:34 AM EDT Reason: calling today after patient was seen and prescribed Levofloxacin upon discharge at [facility]. Patient was diagnosed with pneumonia. Patient is unavailable for triage as he is asleep. states since the medication patient has developed pain in the mouth, head pain and diarrhea. denies symptoms of chest pain, dizziness or shortness of breath. is questioning whether she should continue to give patient medication. Outcome: I advised to call [facility] and speak with the hospitalist addiction treatment counselor for furtheradvisement and instructions. verbalized an understanding GO TO THE EMERGENCY ROOM OR CALL 911 IF: * You develop any new symptoms * Your condition worsens * You are concerned or anxious about your condition for any other reason. If you have any questions, you can call Nurse forest fire prevention specialist back. [facility] Miscellaneous Notes* Telephone Encounter - Ana Cook RN - 04/18/2024 10:34 AM EDT Reason: calling today after patient was seen and prescribed Levofloxacin upon discharge at [facility]. Patient was diagnosed with pneumonia. Patient is unavailable for triage as he is asleep. states since the medication patient has developed pain in the mouth, head pain and diarrhea. denies symptoms of chest pain, dizziness or shortness of breath. is questioning whether she should continue to give patient medication. Outcome: I advised to call [facility] and speak with the hospitalist addiction treatment counselor for furtheradvisement and instructions. verbalized an understanding GO TO THE EMERGENCY ROOM OR CALL 911 IF: * You develop any new symptoms * Your condition worsens * You are concerned or anxious about your condition for any other reason. If you have any questions, you can call Nurse forest fire prevention specialist back. documented in this encounterPeoples Hospital10-25-2024 [facility]10-[facility] History of Present illness Narrative* Taz Marie LPN - 04/15/2024 7:00 AM EDT Scan on 04/14/2024 11:14 PM by Provider, External, ALESSIO: Consultation - Emergency Medicine Scan on 04/15/2024 6:07 AM by Provider, External, PA-C documented in this encounterPeoples Hospital10-21-2024 Telephone encounter Note * Telephone Encounter - Taz Marie LPN - 04/12/2024 9:40 AM EDT Gwen notified of pcp's message. She verbalizes understanding and will contact pt. Taz Marie LPN [facility] Miscellaneous Notes* Telephone Encounter - Taz Marie LPN - 04/12/2024 9:40 AM EDT Gwen notified of pcp's message. She verbalizes understanding and will contact pt. Taz Marie LPN * Telephone Encounter - Jose Fam MD - 04/12/2024 8:44 AM EDT Just audiology at this time. * Telephone Encounter - Selene Jones RN - 04/12/2024 8:40 AM EDT Gwen from [facility] called and is notified of providers message and instructions. She voices understanding and states she can take verbal order. She was asking if provider just wanted Pt to seethe audiology department since he thinks he needs hearing aids, or if her would like him to see oneof their doctors as well. She said she could also leave it up to the patients preference as well. Please call back and let Gwen know. Selene Jones RN * Telephone Encounter - Jose Fam MD - 04/12/2024 8:31 AM EDT Let [facility] know that I just want the audiology referral. Patient most likely needs hearing aids. For some reason our system only gives me the cochlear implant option. See if they need me to resent the referral with the cochlear part crossed off. * Telephone Encounter - Noemy Washington RN - 04/09/2024 4:46 PM EDT Gwen from [facility] calls and states that they do not do actual cochlear implants. They can evaluate patient to see if patient would qualify or benefit for one. They would then refer patient on toanother doctor if patient would need this. Is provider looking for testing or someone that does theimplants? Please review and advise, Noemy Washington RN documented in this encounterPeoples [facility]10-21-2024 Telephone encounter Note * Telephone Encounter - Jose Fam MD - 04/12/2024 8:44 AM EDT Just audiology at this time. [facility] Telephone encounter Note* Telephone Encounter - Selene Jones RN - 04/12/2024 8:40 AM EDT Gwen from [facility] called and is notified of providers message and instructions. She voices understanding and states she can take verbal order. She was asking if provider just wanted Pt to seethe audiology department since he thinks he needs hearing aids, or if her would like him to see oneof their doctors as well. She said she could also leave it up to the patients preference as well. Please call back and let Gwen know. Selene Jones RN [facility] Telephone encounter Note* Telephone Encounter - Jose Fam MD - 04/12/2024 8:31 AM EDT Let [facility] know that I just want the audiology referral. Patient most likely needs hearing aids. For some reason our system only gives me the cochlear implant option. See if they need me to resent the referral with the cochlear part crossed off. [facility] Telephone encounter Note* Telephone Encounter - Noemy Washington RN - 04/09/2024 4:46 PM EDT Gwen from [facility] calls and states that they do not do actual cochlear implants. They can evaluate patient to see if patient would qualify or benefit for one. They would then refer patient on toanother doctor if patient would need this. Is provider looking for testing or someone that does theimplants? Please review and advise, Noemy Washington RN [facility]-18-[facility] Instructions* Patient Instructions* Jose Fam MD - 04/09/2024 1:03 PM EDT Consider getting the RSV vaccine from local pharmacy. Screening schedule The following prevention plan is recommended: RSV Vaccine(1 - 1-dose 75+ series) Never done Influenza Vaccine(1) due on 02/22/2024 Covid-19 Vaccine(2023-25 season) due on 02/22/2024 WHAT YOU CAN DO TO PREVENT FALLS Many falls can be prevented. By making some changes, you can lower your chances of falling. Four things YOU can do to prevent falls for you* and your caregiver 1. Begin a regular exercise program Exercise is one of the most important ways to lower your chances of falling. It makes you stronger and helps you feel better. Exercises that improve balance and coordination (like Simeon Chi) are the most helpful. Lack of exercise leads to weakness and increases your chances of falling. Ask your doctor or health care provider about the best type of exercise program for you. 2. Have your health care provider review your medicines Have your doctor or pharmacist review all the medicines you take, even [id number] medicines. As you get older, the way medicines work in your body can change. Some medicines, or combinations of medicines, can make you sleepy or dizzy andcan cause you to fall. 3. Have your vision checked Have your eyes checked by an eye doctor at least once a year. You may be wearing the wrong glasses or have a condition like glaucoma or cataracts that limits your vision. Poor vision can increase your chances of falling. 4. Make your home safer About half of all falls happen at home. To make your home safer: Remove things you can trip over (like papers, books, clothes, and shoes) from stairs and places where you walk. Remove small throw rugs or use double-sided tape to keep the rugs from slipping. Keep items you use often in cabinets you can reach easily without using a step stool. Have grab bars put in next to your toilet and in the tub or shower. Use non-slip mats in the bathtub and on shower floors. Improve the lighting in your home. As you get older, you need brighter lights to see well. Hang light-weight curtains or shades to reduce glare. Have handrails and lights put in on all staircases. Wear shoes both inside and outside the house. Avoid going barefoot or wearing slippers. For more information, contact: Centers for Disease Control and Prevention www.cdc.gov/injury * This information may not apply if you have certain medical conditions. documented in this encounterPeoples Hospital10-18-2024 [facility]10-18-[facility] History of Present illness Narrative* Jose Fam MD - 04/09/2024 12:48 PM EDT Images from the original note were not included. Regan Arango is a 83 year old male here for a Medicare wellness visit. Medicare Health Risk Assessment General Health Very good Exercise: Minutes/Day 20 min Exercise: Days/Week Patient declined Alcohol: Daily Use Never Alcohol: Drinks/Day Patient does not drink Alcohol: 6 or more drinks Never Feel off balance Yes Concerns: Teeth/Dentures No Concerns: Sexual function No Troubled by feelings None of the above Frequency: Eating healthy diet Nearly every day ADLs requiring help None of the above Safety precautions in home/vehicle Yes Smoke, vape, chews tobacco No Difficulty hearing No Difficulty seeing No Current Providers Specialists: I have reviewed specialist-related care of the patient in the medical record. Current care team: Patient Care Team: Jose Fam MD as PCP - General (Family Medicine) : cardio Dr. Terry: Urology Medical/Family history review Reviewed and updated problem list, medical/surgical/family/social history, medications, and allergies. Opioid use review Opioid Medications (last 90 days) 02/25/2024 03/01/2024 23:59 Opioid Medications oxycodone HCl/acetaminophen Admitted: Feb 24 - Feb 25, 2024 1 tablet q 6 H PRN ORAL -Rx End meperidine HCl/PF 12.5 mg, INTRAVENOUS, X (PACU ONLY) PRN, 2 doses, Starting on Fri02/25/24 at 1036,Until Fri02/25/24 at 1428, for shivering May Repeat 12.5 mg in 10 minutes X1 for Continued Shivering Recovery or Phase I (only) -Discontinued (AUTO DC AT D) oxycodone HCl 5 mg, ORAL, NEEDED, 1 dose, Starting on Fri02/25/24 at 1036, Until Fri02/25/24 at 1147, Moderate Pain (4-6) - Enteral, Recovery or Phase I (only) -Completed Details Outpatient prescription Hospital medication Anxiety/Depression screening PHQ-2 Score: 0 (Lower risk for depression) Recommendation: no further intervention at this time Cognitive screening Score: 3 Cognitive screening reviewed and No further action needed (score 3-5). Functional Observation Was the patient's Timed Up & Go test unsteady or >= 12 seconds? Yes. Using walker. Advance Care Planning Surrogate decision maker and/or advance care plan documented Measurements BP 120/64 (BP Site: Left Arm, BP Position: Sitting, BP Cuff Size: Large Adult) Pulse 64 Resp 16 Ht 181.6 cm (5' 11.5) Wt 128.8 kg (284 lb) BMI 39.06 kg/m Vision Screening: Follows with optometry/ophthalmology Assessment/Plan Medicare annual wellness visit, subsequent (Z00.00) - Counseled on healthy diet and regular exercise - Fall avoidance information provided - Personalized prevention plan provided See Below Chief Complaint Patient presents with: Medicare Wellness Exam HPI Regan Arango is a 83 year old male who presents here today for Chronic Medical Conditions. and Medicare Annual Visit. Patient with hx of HTN, HLP, Pulmonary HTN, SVT, JESSY (untreated), neuropathy, hypothyroidism, elevated glucose, OAB, and those as below. Patient has been noting problems discerning words sometimes when someone is talking to him. He is also having issues with esophageal dysphagia again. Had this dilated in the past by Dr. Campoverde. Past medical history, appointments, medications, allergies reviewed. Previous Medical History PAST MEDICAL HISTORY Diagnosis Date 1st degree AV block 09/08/2015 AC (acromioclavicular) joint arthritis 08/09/2009 Acquired hypothyroidism 04/03/2015 Actinic skin damage 03/08/2012 Acute, but ill-defined, cerebrovascular disease 07/13/2008 Advance directive discussed with patient 03/21/2022 Discussed 02/2022 Anemia 07/24/2015 Arthritis of knee 10/30/2011 At risk for falls 05/28/2019 Atypical nevus of thoracic region 02/03/2014 Balance problem 04/24/2014 Due to CVA in 2008 and right leg weakness Bilateral carotid artery stenosis 12/27/2021 US 12/2021: R 40-60% L 20-40% Bilateral leg edema 08/01/2014 Bladder cancer (HCC) 09/07/2014 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 (HCC) 07/13/2008 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 Diastasis recti 08/01/2014 Diverticulosis of colon (without mention of hemorrhage) Dupuytren's contracture of both hands 09/21/2012 Elevated fasting blood sugar 04/16/2010 Essential hypertension Essential hypertension Familial peripheral neuropathy 06/02/2015 Gait difficulty 04/29/2016 Gastroesophageal reflux disease without esophagitis 04/03/2015 Greater trochanteric bursitis 03/20/2016 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09/04/2012 History of bladder cancer 04/09/2023 History of CVA (cerebrovascular accident) 02/2008 residual weakness in right leg History of giant cell arteritis 03/29/2008 Hx of long-term use of blood thinners Irritated//Inflamed Seborrheic Keratosis 03/08/2012 Living will on file 03/21/2022 DPA: Sudarshan () Low back pain 01/13/2014 Low serum vitamin B12 04/16/2022 Lower urinary tract symptoms (LUTS) 08/02/2014 Lumbar stenosis with neurogenic claudication 01/13/[address] Starr Memory difficulties 04/12/2022 04/12/22 MMSE: Mild pulmonary hypertension (HCC) 09/22/[address] Hamilton, not able to tolerate CPAP for JESSY. 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 Pain in both hands 12/19/2015 Postlaminectomy syndrome 05/08/2010 Premature supraventricular beats 09/08/2015 Pulmonary nodule 08/06/[address] at [facility] on 08/01/22. Repeat in 3-6 months. Multiple nodules up to 7mm in size. Right leg weakness 04/25/2014 Sebaceous cyst 06/08/2009 Stasis dermatitis of both legs 06/02/2015 SVT (supraventricular tachycardia) (HCC) 07/17/2020 SVT (supraventricular tachycardia) (HCC) 07/17/2020 Thoracic or lumbosacral neuritis or radiculitis, unspecified 05/05/2009 Thumb pain, left 11/26/2017 Tinnitus 07/26/2017 Unspecified arthropathy, lower leg 10/12/2008 Venous insufficiency (chronic) (peripheral) 06/02/2015 Vertigo following cerebrovascular accident 07/23/2010 Viral warts, unspecified 04/09/2013 Xerosis cutis 09/04/2012 Previous Surgical History PAST SURGICAL HISTORY Procedure Laterality Date 2D ECHO (EXEP) 08/2015 EF=64%, 1+ TR and mild Pulm HTN COLONOSCOPY FLX DX W/COLLJ SPEC WHEN PFRMD 02/06/2011 Colonoscopy, repeat 10 yrs CYSTO W/REMOVAL OF LESIONS MINOR <0.5CM 08/31/2014 ESOPHAGOGASTRODUODENOSCOPY TRANSORAL DIAGNOSTIC 12/14/2018 EGD FASCT PALM W/WO Z-PLASTY TISSUE REARGMT/SKN GRFT Left 09/08/2018 Left 3rd finger fascietomy with skin graft, left 4th finger facietomy with local soft tissue rearrangements and trigger finger release L3-4 and L4-5 laminoforaminotomy 2009 LAPAROSCOPIC CHOLECYSTECTOMY 02/25/2024 LIGATION/BIOPSY TEMPORAL ARTERY 03/30/2008 RIGHT, negitive. LUMBAR SPINE FUSION COMBINED 05/05/2015 MAL LESION FACE,EAR,EYEL 1.1-2CM 04/20/2008 Exc. right lateral islam skin lesion and right forehead OPEN REPAIR OF ROTATOR CUFF ACUTE 2000 Rotator cuff repair left PAST SURGICAL HISTORY OF ingrown toe nail removed PAST SURGICAL HISTORY OF 1965 cyst removed from bottom of spine REMOVAL GALLBLADDER 02/25/2024 SHOULDER ARTHROSCOPY/SURGERY 08/02/2010 Open Rt subacromial decompression STRESS TEST 04/10/2015 WNL STRESS TEST NUCLEAR 07/09/2018 negative Family History FAMILY HISTORY Problem Relation Age of Onset Hypertension Mother Stroke Mother other (headaches) Mother Ischemic Heart Disease Father Heart Brother Patient Allergies ALLERGIES Allergen Reactions Ditropan [Oxybutyni* Other: See Comments Nausea, brain fog, increased weakness, decreased appetite, and increased restless leg symptoms. Prednisone Other: See Comments Had GI problems, headaches. Patient states he was on high dose for almost 90 days Current Medications Current Outpatient Medications on File Prior to Visit Medication Sig traZODone (DESYREL) 50 mg tablet Take 1 tablet by mouth daily at bedtime. traZODone (DESYREL) 50 mg tablet Take 1 tablet by mouth daily at bedtime. clopidogrel (PLAVIX) 75 mg tablet Take 1 tablet by mouth once daily. gabapentin (NEURONTIN) 600 mg tablet Take 2 tablets by mouth three times a day for 180 days. nystatin (NYSTOP) powder Apply 1 application to affected area three times a day. (Patient not taking: Reported on 03/10/2024) tamsulosin (FLOMAX) 0.4 mg TAKE 1 CAPSULE ONE TIME DAILY 30 MINUTES AFTER THE SAME MEAL EACH DAY DULoxetine (CYMBALTA) 30 mg capsule Take 1 capsule by mouth once daily. lisinopril 2.5 mg tablet Take 1 tablet by mouth once daily. pravastatin (PRAVACHOL) 20 mg tablet Take 1 tablet by mouth once daily. levothyroxine (LEVOXYL) 125 mcg tablet Take one tab daily Fri-Fri and two on Friday and FridayTake on empty stomach. For thyroid. finasteride (PROSCAR) 5 mg tablet Take 1 tablet by mouth once daily. Fluorouracil 5 % cream (Patient not taking: Reported on 03/10/2024) potassium chloride ER (KLOR-CON M20) 20 mEq tablet Take 1 tablet by mouth once daily. cyanocobalamin (VITAMIN B-12) 1,000 mcg tab Take 1 tablet by mouth once daily. furosemide (LASIX) 20 mg tablet Take 1 tablet by mouth once daily. vit C/E/Zn/coppr/lutein/zeaxan (PRESERVISION AREDS-2 ORAL) Take by mouth two times a day. ZINC ORAL Take 50 mg by mouth once daily. COMPOUNDED PRESCRIPTION rollator walker #: one Dx: I63.50, Z86.73, R26.89, G60.9, M62.81 and M48.06 multivitamins w-minerals/lut(CENTRUM SILVER TAB) Take by mouth. (Patient not taking: Reported on 03/10/2024) No current facility-administered medications on file prior to visit. Social History Social History Tobacco Use Smoking status: Never Passive exposure: Never Smokeless tobacco: Never Vaping Use Vaping status: Never Used Substance Use Topics Alcohol use: Not Currently Drug use: Never Review of Symptoms REVIEW OF SYSTEMS GENERAL: No weight loss, malaise or fevers HEENT: Negative for frequent or significant headaches, No changes in vision, no nose bleeds or other nasal problems. Having some problems understanding words. NECK: Negative for lumps, goiter, pain and significant neck swelling RESPIRATORY: Negative for cough, hemoptysis, wheezing, COPD, dyspnea or shortness of breath CARDIOVASCULAR: Negative for chest pain, leg swelling, hypertension, CHF or increased palpitations GI: No nausea, vomiting, or diarrhea, No heartburn or reflux symptoms, and no blood. See HPI : No history of dysuria, frequency or blood MUSCULOSKELETAL: Negative for new or changes in his typical joint pain or swelling, back pain or muscle pain SKIN: Negative for lesions, rash, and itching PSYCH: Negative for sleep disturbance, mood disorder and recent psychosocial stressors HEMATOLOGY/LYMPHOLOGY: Negative for prolonged bleeding, bruising easily or swollen nodes ENDOCRINE: Negative for cold or heat intolerance, polyuria, polydipsia and goiter NEURO: No history of headaches, syncope, paralysis, seizures or tremors EXAM: BP 120/64 (BP Site: Left Arm, BP Position: Sitting, BP Cuff Size: Large Adult) Pulse 64 Resp 16 Ht 181.6 cm (5' 11.5) Wt 128.8 kg (284 lb) BMI 39.06 kg/m Last 5 Encounter Wt Readings: Date: Wt: 04/09/2024 128.8 kg (284 lb) 03/10/2024 127 kg (280 lb) 03/01/2024 126.6 kg (279 lb) 02/11/2024 127.3 kg (280 lb 9.6 oz) 01/26/2024 127 kg (280 lb) General Appearance: Well appearing, alert, in no acute distress, well-hydrated, well nourished. andObese. Skin: Skin color, texture, turgor normal, no suspicious rashes or lesions. Head: Normocephalic, no masses, lesions, tenderness or abnormalities. Eyes: Anicteric sclera. Pupils are equally round and reactive to light. Extraocular movements are intact. . Ears: External ears, TM's normal, canals clear. Nose/Sinuses: Nares normal, septum midline, mucosa normal, no drainage or sinus tenderness. Oropharynx: Lips, mucosa, and tongue normal, teeth and gums normal, oropharynx normal. Neck: Supple, no adenopathy; thyroid symmetric, normal size, no bruits. Lungs: Lungs clear to auscultation. No wheezing, rhonchi, rales.. Heart: RRR without murmur, gallop, or rubs. No ectopy. Abdomen: Normal abdominal exam, Abdomen soft, non-tender. Bowel sounds normal. No masses, organomegaly. Extremities: No deformities, edema, skin discoloration, Good capillary refill. . Musculoskeletal: Spine range of motion normal. Muscular strength intact, No joint swelling, deformity, or tenderness. Peripheral Pulses: Normal. Neurologic: Gait normal. Reflexes normal and symmetric. Sensation to light touch and crainal nerves2-12 intact.. Genitalia: Normal. Health Maintenance List RSV Vaccine(1 - 1-dose 75+ series) Never done Influenza Vaccine(1) due on 02/22/2024 Covid-19 Vaccine( season) due on 02/22/2024 Shingrix Vaccine(1 of 2) due on 04/09/2024 Depression Screening due on 10/08/2024 Anxiety Screening due on 10/08/2024 DTaP,Tdap,Td Vaccine(2 - Td or Tdap) due on 02/01/2025 Diabetes Screening due on 03/29/2027 Advance Directive Discussion Completed Pneumococcal Vaccine: 65+ Completed HPV Vaccine Aged Out Data reviewed Latest Ref Rng 03/26/2023 09/29/2023 03/29/2024 WBC 3.70 - 11.00 k/uL 6.71 7.14 RBC 4.20 - 6.00 m/uL 4.90 4.87 Hemoglobin 13.0 - 17.0 g/dL 13.4 13.5 Hematocrit 39.0 - 51.0 % 42.5 42.4 MCV 80.0 - 100.0 fL 86.7 87.1 MCH 26.0 - 34.0 pg 27.3 27.7 MCHC 30.5 - 36.0 g/dL 31.5 31.8 RDW-CV 11.5 - 15.0 % 17.3 (H) 16.5 (H) Platelet Count 150 - 400 k/uL 167 172 MPV 9.0 - 12.7 fL 10.1 10.8 Neut% % 70.9 74.0 Abs Neut (ANC) 1.45 - 7.50 k/uL 4.75 5.29 Lymph% % 16.2 14.6 Abs Lymph 1.00 - 4.00 k/uL 1.09 1.04 [place]% % 6.9 5.5 Abs [place] <0.87 k/uL 0.46 0.39 Eosin% % 4.3 4.5 Abs Eosin <0.46 k/uL 0.29 0.32 Baso% % 1.3 1.1 Abs Baso <0.11 k/uL 0.09 0.08 Immature Gran % % 0.4 0.3 IMMATURE GRANS (ABS) <0.10 k/uL 0.03 <0.03 NRBC /100 WBC 0.0 0.0 Absolute nRBC <0.01 k/uL <0.01 <0.01 DTYPE Auto Auto Protein, Total 6.3 - 8.0 g/dL 5.7 (L) 6.4 6.3 Albumin 3.9 - 4.9 g/dL 3.7 (L) 3.9 4.0 Calcium 8.5 - 10.2 mg/dL 8.6 9.2 9.1 Bilirubin, Total 0.2 - 1.3 mg/dL 0.6 0.5 0.6 Alkaline Phosphatase 38 - 113 U/L 93 99 98 AST 14 - 40 U/L 10 (L) 8 (L) 10 (L) ALT 10 - 54 U/L 9 (L) 10 8 (L) Glucose 74 - 99 mg/dL 107 (H) 194 (H) 173 (H) BUN 9 - 24 mg/dL 19 25 (H) 24 Creatinine 0.73 - 1.22 mg/dL 0.94 0.86 1.01 Sodium 136 - 144 mmol/L 139 142 140 Potassium 3.7 - 5.1 mmol/L 4.2 4.2 4.3 Chloride 98 - 107 mmol/L 104 105 104 CO2 22 - 30 mmol/L 28 26 24 Anion Gap 8 - 15 mmol/L 7 (L) 11 12 eGFR >=60 mL/min/1.73m 80 86 73 Total Cholesterol, Nonfasting <200 mg/dL 148 155 143 Triglycerides, Nonfasting <150 mg/dL 168 (H) 187 (H) 142 HDL Cholesterol, Nonfasting >39 mg/dL 40 38 (L) 36 (L) LDL Cholesterol, Nonfasting <100 mg/dL 74 80 79 Non HDL Cholesterol, Nonfasting <130 mg/dL 108 117 107 VLDL Cholesterol, Nonfasting <30 mg/dL 34 (H) 37 (H) 28 Total Chol/HDL Ratio, Nonfasting <5.10 mg/dL 3.70 4.08 3.97 LDL/HDL Ratio, Nonfasting <2.54 mg/dL 1.85 2.11 2.19 Hemoglobin A1C 4.3 - 5.6 % 5.6 5.5 5.5 Estimated Average Glucose mg/dL 114 111 111 TSH 0.270 - 4.200 mIU/L 4.920 (H) 1.000 0.829 A/P ASSESSMENT/PLAN: 1. Medicare annual wellness visit, subsequent - ICD9: V70.0, ICD10: Z00.00 (primary diagnosis) - Counseled on healthy diet and regular exercise - Discussed need for and benefit of weight loss. BMI 39.06 kg/(m^2) - Patient counseled on and acknowledged vaccine benefits/risks/side effects; VIS provided: COVID-19and Influenza - Follow up for annual exam in one year - advised on RSV 2. Essential hypertension - ICD9: 401.9, ICD10: I10 - Controlled - Continue current medications - Recommend home blood pressure monitoring, to bring results to next visit - Encouraged sodium restriction, DASH or Mediterranean diet - Recommend regular aerobic exercise - Discussed need for and benefit of weight loss. BMI 39.06 kg/(m^2) 3. Mixed hyperlipidemia - ICD9: 272.2, ICD10: E78.2 - Controlled cont meds. - Counseled on healthy diet and regular exercise - Discussed need for and benefit of weight loss. BMI 39.06 kg/(m^2) 4. Elevated fasting blood sugar - ICD9: 790.21, ICD10: R73.01 - improved with life style 5. Acquired hypothyroidism - ICD9: 244.9, ICD10: E03.9 - Instructed patient on importance of taking on an empty stomach either first thing in the morning or at bedtime. - continue current dose of Synthroid 6. Bilateral carotid artery stenosis - ICD9: 433.10, 433.30, ICD10: I65.23 - cont current Tx and monitoring with US. 7. Bilateral leg edema - ICD9: 782.3, ICD10: R60.0 - stable no change 8. Gastroesophageal reflux disease without esophagitis - ICD9: 530.81, ICD10: K21.9 - managed with diet. 9. History of CVA (cerebrovascular accident) - ICD9: V12.54, ICD10: Z86.73 - stable with current Tx. 10. Mild pulmonary hypertension (HCC) - ICD9: 416.8, ICD10: I27.20 - follows with cardio 11. Familial peripheral neuropathy - ICD9: 356.0, ICD10: G60.9 - stable on Neurontin. 12. Low serum vitamin B12 - ICD9: 266.2, ICD10: E53.8 - cont replacement 13. Obesity, Class II, BMI 35-39.9 - ICD9: 278.00, ICD10: E66.812 - patient to work on weight loss. 14. Stasis dermatitis of both legs - ICD9: 454.1, ICD10: I87.2 - stable 15. Venous insufficiency (chronic) (peripheral) - ICD9: 459.81, ICD10: I87.2 - cont current Tx. 16. Advance directive discussed with patient - ICD9: V65.49, ICD10: Z71.89 - up to date 17. Pulmonary nodule - ICD9: 793.11, ICD10: R91.1 - will lesly repeat chest CT in 12/2024. 18. Encounter for immunization - ICD9: V03.89, ICD10: Z23 - INFLUENZA VACCINE, PRSV FREE, AGE 65+ YR, HIGH DOSE, TRIVALENT (FLUZONE HIGH- DOSE): given - [employer] COVID-19 VACCINE AGE 12+ YR (COMIRNATY): given 19. Hearing difficulty, unspecified laterality - ICD9: 389.9, ICD10: H91.90 - CONSULT TO AUDIOLOGY COCHLEAR IMPLANT: [facility] 20. Tinnitus of both ears - ICD9: 388.30, ICD10: H93.13 - CONSULT TO AUDIOLOGY COCHLEAR IMPLANT 21. Skin cancer screening - ICD9: V76.43, ICD10: Z12.83 - sees Dr. Hurtado 22. Esophageal dysphagia - ICD9: 787.29, ICD10: R13.19 - CONSULT TO GASTROENTEROLOGY: Dr. Campoverde 23. Memory difficulties - ICD9: 780.93, ICD10: R41.3 - discussed geriatric consult. Patient wants to hold off on for now. F/u 6 months routine check CMP, Lipid, A1c, B12 and TSH prior. Jose Fam MD I spent a total of 51 minutes on the date of the service which included preparing to see the patient, [id number] patient care, completing clinical documentation, performing a medically appropriate examination, counseling and educating the patient/family/caregiver and ordering medications, tests, or procedures. [facility] Telephone encounter Note * Telephone Encounter - Christi Vu MA - 03/29/2024 2:14 PM EDT Prescription Refill Information The patient has been identified by name and date of : Yes Caregiver verified no other encounters exist for this prescription request: Yes Caregiver confirmed with patient/requestor that no other refills are due, in the near future, with this provider at this time: No The last office visit in the department: 03/01/24 Does the patient have a future office visit with this provider/department: Yes Requested Prescriptions Pending Prescriptions Disp Refills traZODone (DESYREL) 50 mg tablet 90 tablet 1 Sig: Take 1 tablet by mouth daily at bedtime. Christi Vu MA March 29, 2024 2:14 PM [facility] Miscellaneous Notes* Telephone Encounter - Christi Vu MA - 03/29/2024 2:14 PM EDT Prescription Refill Information The patient has been identified by name and date of : Yes Caregiver verified no other encounters exist for this prescription request: Yes Caregiver confirmed with patient/requestor that no other refills are due, in the near future, with this provider at this time: No The last office visit in the department: 03/01/24 Does the patient have a future office visit with this provider/department: Yes Requested Prescriptions Pending Prescriptions Disp Refills traZODone (DESYREL) 50 mg tablet 90 tablet 1 Sig: Take 1 tablet by mouth daily at bedtime. Christi Vu MA March 29, 2024 2:14 PM documented in this encounterPeoples [facility]09-18-2024 History of Present illness Narrative* Ryann Diaz APRN.ZENOBIA - 03/10/2024 1:30 PM EDT Images from the original note were not included. SUBJECTIVE: Regan Arango presents for follow up of his laparoscopic cholecystectomy on 02/25/24. He tolerated the procedure well and was discharged home. Patient complaints: None He denies abdominal pain, incisional pain, nausea, vomiting, diarrhea, fever, chills, jaundice , and dark urine He denies food intolerance. PHYSICAL EXAMINATION: BP 122/62 (BP Site: Right Arm, BP Position: Sitting, BP Cuff Size: Large Adult) Pulse 80 Temp 36.5 C (97.7 F) (Temporal) Resp 16 Wt 127 kg (280 lb) SpO2 99% BMI 39.05 kg/m General Appearance: Well developed, No acute distress Patient does not appear icteric. Abdomen: Abdomen soft, non-distended Incision: no drainage, no erythema, no swelling, very slight ecchymosis, and no tenderness. Steri strips still intact IMPRESSION: Post op course: Normal PLAN: Post-op patient instructions were reviewed with the patient. Low fat diet encouraged. I have explained to Mr. Regan Arango that he may return to normal activity with the following restrictions: no lifting greater than 40lbs for 4 weeks. I have encouraged him to contact me at any timewith any questions or concerns that may arise. Follow up: JONEL Diaz APRN.INTEGRATED CIRCUIT DESIGN ENGINEER documented in this encounterPe[facility]09-[facility] encounter [facility]* Telephone Encounter - Nick Spence MA - 03/09/2024 4:17 PM EDT Mailed. Nick Spence MA [facility] Miscellaneous Notes* Telephone Encounter - Nick Spence MA - 03/09/2024 4:17 PM EDT Mailed. Nick Spence MA * Telephone Encounter - Jose Fam MD - 03/09/2024 3:54 PM EDT Letter signed. * Telephone Encounter - Nick Spence MA - 03/09/2024 3:27 PM EDT Letter printed and given to provider to sign. Nick Spence MA documented in this encounterPeoples [facility]09-17-2024 Telephone encounter Note * Telephone Encounter - Jose Fam MD - 03/09/2024 3:54 PM EDT Letter signed. [facility] Tele[facility] encounter Note* Telephone Encounter - Nick Spence MA - 03/09/2024 3:27 PM EDT Letter printed and given to provider to sign. Nick Spence MA [facility] History of Present illness Narrative* Valerie Deshpande APRN.INTEGRATED CIRCUIT DESIGN ENGINEER - 03/01/2024 1:00 PM EDT Chief Complaint Patient presents with: Rash HPI Regan Arango is a 83 year old male who presents here today for Above Complaints.. Patient presents for return of rash. Patient was treated in December for fungal skin infection to bilateral breasts. Past medical history, appointments, medications, allergies reviewed. Previous Medical History PAST MEDICAL HISTORY 09/08/2015: 1st degree AV block 08/09/2009: AC (acromioclavicular) joint arthritis 04/03/2015: Acquired hypothyroidism 03/08/2012: Actinic skin damage 07/13/2008: Acute, but ill-defined, cerebrovascular disease 03/21/2022: Advance directive discussed with patient Comment: Discussed 02/202207/24/2015: Anemia 10/30/2011: Arthritis of knee 05/28/2019: At risk for falls 02/03/2014: Atypical nevus of thoracic region 04/24/2014: Balance problem Comment: Due to CVA in 2008 and right leg weakness 12/27/2021: Bilateral carotid artery stenosis Comment: 12/2021: R 40-60% L 20-40% 08/01/2014: Bilateral leg edema 09/07/2014: Bladder cancer (HCC) 03/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 07/13/2008: Cerebral artery occlusion with cerebral infarction (HCC) 03/08/2012: Phelan angioma 08/01/2014: Diastasis recti No date: Diverticulosis of colon (without mention of hemorrhage) 09/21/2012: Dupuytren's contracture of both hands 04/16/2010: Elevated fasting blood sugar No date: Essential hypertension Comment: Essential hypertension 06/02/2015: Familial peripheral neuropathy 04/29/2016: Gait difficulty 04/03/2015: Gastroesophageal reflux disease without esophagitis 03/20/2016: Greater trochanteric bursitis 09/04/2012: 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04/09/2023: History of bladder cancer 02/2008: History of CVA (cerebrovascular accident) Comment: residual weakness in right leg 03/29/2008: History of giant cell arteritis No date: Hx of long-term use of blood thinners 03/08/2012: Irritated//Inflamed Seborrheic Keratosis 03/21/2022: Living will on file Comment: DPA: Sudarshan () 01/13/2014: Low back pain 04/16/2022: Low serum vitamin B12 08/02/2014: Lower urinary tract symptoms (LUTS) 01/13/2014: Lumbar stenosis with neurogenic claudication Comment: Had seen Dr. Starr 04/12/2022: Memory difficulties Comment: 04/12/22 MMSE: /30 09/22/2015: Mild pulmonary hypertension (HCC) Comment: sen Dr. Hamilton, not able to tolerate CPAP for JESSY. 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 12/19/2015: Pain in both hands 05/08/2010: Postlaminectomy syndrome 09/08/2015: Premature supraventricular beats 08/06/2022: Pulmonary nodule Comment: Noted on CT at [facility] on 08/01/22. Repeat in 3-6 months. Multiple nodules up to 7mm in size. 04/25/2014: Right leg weakness 06/08/2009: Sebaceous cyst 06/02/2015: Stasis dermatitis of both legs 07/17/2020: SVT (supraventricular tachycardia) (HCC) 07/17/2020: SVT (supraventricular tachycardia) (HCC) 05/05/2009: Thoracic or lumbosacral neuritis or radiculitis, unspecified 11/26/2017: Thumb pain, left 07/26/2017: Tinnitus 10/12/2008: Unspecified arthropathy, lower leg 06/02/2015: Venous insufficiency (chronic) (peripheral) 07/23/2010: Vertigo following cerebrovascular accident 04/09/2013: Viral warts, unspecified 09/04/2012: Xerosis cutis Previous Surgical History PAST SURGICAL HISTORY 08/2015: 2D ECHO (EXEP) Comment: EF=64%, 1+ TR and mild Pulm HTN 02/06/2011: COLONOSCOPY FLX DX W/COLLJ SPEC WHEN PFRMD Comment: Colonoscopy, repeat 10 yrs 08/31/14 : CYSTO W/REMOVAL OF LESIONS MINOR <0.5CM 12/14/2018: ESOPHAGOGASTRODUODENOSCOPY TRANSORAL DIAGNOSTIC Comment: EGD 09/08/2018: FASCT PALM W/WO Z-PLASTY TISSUE REARGMT/SKN GRFT; Left Comment: Left 3rd finger fascietomy with skin graft, left 4th finger facietomy with local soft tissue rearrangements and trigger finger release 2010: L3-4 and L4-5 laminoforaminotomy 03-30-08: LIGATION/BIOPSY TEMPORAL ARTERY Comment: RIGHT, negitive. 05/05/2015: LUMBAR SPINE FUSION COMBINED 04/20/08: MAL LESION FACE,EAR,EYEL 1.1-2CM Comment: Exc. right lateral islam skin lesion and right forehead 2001: OPEN REPAIR OF ROTATOR CUFF ACUTE Comment: Rotator cuff repair left No date: PAST SURGICAL HISTORY OF Comment: ingrown toe nail removed 1964: PAST SURGICAL HISTORY OF Comment: cyst removed from bottom of spine 08/02/2010: SHOULDER ARTHROSCOPY/SURGERY Comment: Open Rt subacromial decompression 04/10/2015: STRESS TEST Comment: WNL 07/09/2018: STRESS TEST NUCLEAR Comment: negative Family History FAMILY HISTORY Problem Relation Age of Onset Hypertension Mother Stroke Mother other (headaches) Mother Ischemic Heart Disease Father Heart Brother Patient Allergies ALLERGIES Allergen Reactions Ditropan [Oxybutyni* Other: See Comments Nausea, brain fog, increased weakness, decreased appetite, and increased restless leg symptoms. Prednisone Other: See Comments Had GI problems, headaches. Patient states he was on high dose for almost 90 days Current Medications Current Outpatient Medications on File Prior to Visit Medication Sig clopidogrel (PLAVIX) 75 mg tablet Take 1 tablet by mouth once daily. oxyCODONE-acetaminophen (PERCOCET) 5-325 mg tablet Take 1 tablet by mouth every 6 hours as needed for up to 5 days. gabapentin (NEURONTIN) 600 mg tablet Take 2 tablets by mouth three times a day for 180 days. nystatin (NYSTOP) powder Apply 1 application to affected area three times a day. tamsulosin (FLOMAX) 0.4 mg TAKE 1 CAPSULE ONE TIME DAILY 30 MINUTES AFTER THE SAME MEAL EACH DAY DULoxetine (CYMBALTA) 30 mg capsule Take 1 capsule by mouth once daily. lisinopril 2.5 mg tablet Take 1 tablet by mouth once daily. pravastatin (PRAVACHOL) 20 mg tablet Take 1 tablet by mouth once daily. levothyroxine (LEVOXYL) 125 mcg tablet Take one tab daily Fri-Fri and two on Friday and FridayTake on empty stomach. For thyroid. finasteride (PROSCAR) 5 mg tablet Take 1 tablet by mouth once daily. traZODone (DESYREL) 50 mg tablet Take 1 tablet by mouth daily at bedtime. Fluorouracil 5 % cream potassium chloride ER (KLOR-CON M20) 20 mEq tablet Take 1 tablet by mouth once daily. cyanocobalamin (VITAMIN B-12) 1,000 mcg tab Take 1 tablet by mouth once daily. furosemide (LASIX) 20 mg tablet Take 1 tablet by mouth once daily. vit C/E/Zn/coppr/lutein/zeaxan (PRESERVISION AREDS-2 ORAL) Take by mouth two times a day. ZINC ORAL Take by mouth once daily. COMPOUNDED PRESCRIPTION rollator walker #: one Dx: I63.50, Z86.73, R26.89, G60.9, M62.81 and M48.06 multivitamins w-minerals/lut(CENTRUM SILVER TAB) Take by mouth. No current facility-administered medications on file prior to visit. Social History Social History Tobacco Use Smoking status: Never Passive exposure: Never Smokeless tobacco: Never Vaping Use Vaping status: Never Used Substance Use Topics Alcohol use: Not Currently Drug use: Never Review of Symptoms REVIEW OF SYSTEMS SEE HPI EXAM: BP 124/56 Pulse 65 Resp 16 Wt 126.6 kg (279 lb) BMI 38.91 kg/m General Appearance: Well appearing, alert, in no acute distress, well-hydrated, well nourished.. Skin: Positives: Rash: Red moist patchy rash to underside of bilateral breasts. Health Maintenance List Covid-19 Vaccine( season) due on 02/22/2024 Influenza Vaccine(1) due on 02/22/2024 RSV Vaccine(1 - 1-dose 60+ series) due on 03/23/2024 Shingrix Vaccine(1 of 2) due on 04/09/2024 Depression Screening due on 10/08/2024 Anxiety Screening due on 10/08/2024 DTaP,Tdap,Td Vaccine(2 - Td or Tdap) due on 02/01/2025 Diabetes Screening due on 02/10/2027 Advance Directive Discussion Completed Pneumococcal Vaccine: 65+ Completed HPV Vaccine Aged Out ASSESSMENT/PLAN: 1. Yeast infection of the skin - ICD9: 112.3, ICD10: B37.2 - CLOTRIMAZOLE 1 % TOPICAL CREAM - Continue use of nystatin powder as well to area. -Patient to use Gold Nichole powder twice daily once healed. Valerie Deshpande APRN.CNP documented in this encounterPe[facility]09-06-2024 Telephone encounter Note * Telephone Encounter - Nick Spence MA - 02/27/2024 8:56 AM EDT They scheduled patient with Valerie for Friday. Nick Spence MA [facility] Miscellaneous Notes* Telephone Encounter - Nick Spence MA - 02/27/2024 8:56 AM EDT They scheduled patient with Valerie for Friday. Nick Spence MA * Telephone Encounter - Savana Duff MA - 02/26/2024 3:29 PM EDT Placed call to , with no answer. Message left for return call. Savana Duff MA * Telephone Encounter - Jose Fam MD - 02/26/2024 2:03 PM EDT I need to be able to see the rash even if an appt is made with Phoebe or Valerie and they come get me to see (if I can't see him within the next several days) * Telephone Encounter - Savana Duff MA - 02/26/2024 11:23 AM EDT Called Sudarshan to clarify message. Everything straightened out other than patient needing the different prescription for the skin yeast infection. Already has Nystatin powder at home. States was told by a PA and Dr. Verduzco while in hospital he needed something different than the powder. When asked about Rx prior to leaving they were told Dr. Verduzco wouldn't be the one to prescribe this but patients PCP should. Advise. Savana Duff MA documented in this encounterPeoples [facility]09-05-2024 Telephone encounter Note * Telephone Encounter - Savana Duff MA - 02/26/2024 3:29 PM EDT Placed call to , with no answer. Message left for return call. Savana Duff MA [facility]09-05-2024 Telephone encounter Note* Telephone Encounter - Jose Fam MD - 02/26/2024 2:03 PM EDT I need to be able to see the rash even if an appt is made with Phoebe or Valerie and they come get me to see (if I can't see him within the next several days) [facility]09-05-2024 Telephone encounter Note* Telephone Encounter - Savana Duff MA - 02/26/2024 11:23 AM EDT Called Sudarshan to clarify message. Everything straightened out other than patient needing the different prescription for the skin yeast infection. Already has Nystatin powder at home. States was told by a PA and Dr. Verduzco while in hospital he needed something different than the powder. When asked about Rx prior to leaving they were told Dr. Verduzco wouldn't be the one to prescribe this but patients PCP should. Advise. Savana Duff MA [facility]09-04-2024 NoteHNO ID: [id number] Author: RANCHO MOON APRN.C.O.D. 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 AUDIT CLERK: Rancho Moon APRN.C.O.D. AUDIT CLERK Performed by: C.O.D. AUDIT CLERK Indications and Patient Condition Indications for airway management: anesthesia Preoxygenated: yes anesthesia circuit Method: sleep Cricoid Pressure: No Manual In-Line Stabilization: No Difficult Mask: No Final Airway Details Final airway type: endotracheal airway Final Endotracheal Airway: ETT Cuffed: yes Successful intubation technique: video laryngoscopy Devices used: Setup Endotracheal tube insertion site: oral Blade: Jose Blade size: #4 ETT size (mm): 7.5 Measurement (cm): 22 Placement verified by: capnometry Cormack-Lehane Classification: grade I - full view of glottis Number of attempts at approach: 1 Failed airway: no Unrecognized esophageal intubation: no Airway not difficult SIGNATURE: Rancho Moon APRN.C.O.D. AUDIT CLERK PATIENT NAME: Regan Arango DATE: February 25, 2024 TIME: 9:25 AM CSN: [id number] History and physical note * Candice Kahn APRN.INTEGRATED CIRCUIT DESIGN ENGINEER - 02/11/2024 2:32 PM EDT Images from the original note were not included. [facility] HISTORY AND PHYSICAL EXAMINATION SERVICE DATE: 02/11/2024 SERVICE TIME: 4:24 PM PRIMARY CARE PHYSICIAN: Jose Fam MD Assessment Patient has the following medical conditions which may affect bibi-operative course: SVT (supraventricular tachycardia) (HCC) Assessment: controlled on rx 12/01/2023 Dr. Jose Assessment and Plan: 83 years old gentleman prior history of supraventricular tachycardia hypertensive heart disease ASSESSMENT/PLAN: 1. SVT (supraventricular tachycardia) (HCC) - ICD9: 427.89, ICD10: I47.10 (primary diagnosis) Stable with few episodes and runs of SVT controlled well 2. Essential hypertension - ICD9: 401.9, ICD10: I10 - Controlled - Continue current medications - Recommend home blood pressure monitoring, to bring results to next visit - Encouraged sodium restriction, DASH or Mediterranean diet - Recommend regular aerobic exercise Nikko Jose MD Follow up planning: One year History of CVA (cerebrovascular accident) Assessment: residual right leg weakness, balance issues, uses walker Venous insufficiency (chronic) (peripheral) Assessment: bilateral lower extremity edema L>R since an injury end of November when he fell per , large hematoma that appears to be resolving but left leg slightly larger, tender varicosities posterior left calf, no erythema or increased warmth. Doppler ordered to ensure and pt of possibility of a DVT. Familial peripheral neuropathy Assessment: controlled on rx Essential hypertension Assessment: controlled on rx Last 14 BP Last 14 Encounter BP Readings: Date: BP: 02/11/2024 116/60 01/26/2024 132/72 01/20/2024 143/71 01/13/2024 125/73 01/07/2024 122/78 12/27/2023 132/80 12/01/2023 134/64 11/03/2023 128/70 10/09/2023 115/68 09/09/2023 125/76 08/26/2023 127/75 08/04/2023 118/66 06/12/2023 142/68 05/23/2023 130/78 Mild pulmonary hypertension (HCC) Assessment: following cardiology, normal RSVP 12/2021 ecoh Recent Results (from the past 03979 hour(s)) ECHO Collection Time: 12/25/21 8:42 AM Impression CONCLUSIONS: - Technically difficult exam due to body habitus. - Exam indication: TIA - The left ventricle is normal in size. Left ventricular systolic function is normal. EF = 65 5% (2D biplane) Indeterminate left ventricular diastolic dysfunction due to inconsistent or technically suboptimal data. - The right ventricle is normal in size. Right ventricular systolic function is normal. - There are no significant valvular abnormalities. - The visualized aorta is borderline dilated with a maximal dimension of 4.0 cm. - Exam was compared with the prior echocardiographic exam performed on 11/03/2018, no significant change. * * * Final * * * Mixed hyperlipidemia Assessment: c/w statin JESSY (obstructive sleep apnea) Assessment: non-compliant with CPAP Pulmonary nodule Assessment: under surveillance, stable 06/[address] Gastroesophageal reflux disease without esophagitis Assessment: diet controlled BPH with obstruction/lower urinary tract symptoms Assessment: controlled on rx Multiple renal cysts Assessment: hx, stable on repeat imaging 02/2021 CT Creatinine Date Value Ref Range Status 09/29/2023 0.86 0.73 - 1.22 mg/dL Final 03/26/2023 0.94 0.73 - 1.22 mg/dL Final 09/23/2022 0.76 0.73 - 1.22 mg/dL Final 03/19/2022 0.94 0.73 - 1.22 mg/dL Final Acquired hypothyroidism Assessment: stable on rx Elevated fasting blood sugar Assessment: diet controlled Hemoglobin A1C (%) Date Value 09/29/2023 5.5 03/13/2021 6.5 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 Assessment: s/p excision History of bladder cancer Assessment: Chronic - stable Dr. Ochoa performed a surveillance cystoscopy in September 2023. No acute findings. RTC in 1 for repeat Cysto per his note 1St degree AV block Assessment: following cardiology OAB (overactive bladder) Assessment: controlled on rx Bilateral leg edema Assessment: controlled on rx Bilateral carotid artery stenosis Assessment: 04/2023 Carotis US right 40-59%, left 20-39% Segura Activity Status Index: METS: Climb a flight of stairs or walk up a hill (5.50 METs) DASI Score: 5.5 Patient denies any chest pain or undue shortness of breath with the above physical activity. Clinical Frailty Scale: 3. Well, with treated comorbid disease STOP-Bang Score: Snores loudly Has or is being treated for high blood pressure BMI greater than 35 kg/m^2 Patient over 50 years old Has a large neck Male patient Denies feeling tired, fatigued, or sleepy during the daytime Has not been observed to stop breathing or choking/gasping during sleep STOP-Bang Score: 6 Malnutrition Screening Tool: Recent weight loss without trying: No Eating poorly due to decreased appetite: No Weight Loss Score: 0 Appetite Score: 0 MST Score: 0 [id number] Score: Age: >=75 Sex: male CHF history: No Hypertension history: Yes Stroke/TIA/thromboembolism history: Yes Vascular disease history: Yes Diabetes history: No [id number] Score: 6 ARISCAT Score: Age: >80 Preoperative SpO2: 91-95% Respiratory infection in the last month: No Preoperative anemia: Yes Surgical incision: peripheral Duration of surgery: <2 hrs Emergency procedure: No ARISCAT Score: 35 ANESTHESIA FINDINGS: Intubation History: No history of difficult intubation Significant Anesthesia Considerations: none Airway History: No history of difficult airway I - PHYSICAL EVALUATION AIRWAY Patient intubated: No. Tracheostomy tube not present Mallampati: III. TM distance: >3 FB. Neck ROM: full ROM without neurological symptoms. Mouth opening: adequate. Short neck: no. Thick neck: yes Nicole present: no Lip Bite Test: I Microretrognathia/Micronagthia/Recessed Chin: No DENTAL Dental findings: teeth intact. II - ANESTHESIA PLAN Anesthetic Plan: other Beta Danny Monitoring Plan Post Procedure Analgesic Plan Informed Consent Anesthetic risks, benefits, alternatives, personnel and consent discussed: yes. Patient / Responsible Constitution Party agrees to proceed: yes Prepared for Surgery: optimally prepared for surgery. Labs and ekg-reviewed, okay to proceed-JL CONSULTS: Patient does not require consults for optimization at this time Planned Anesthetic: other anesthesia choice The Following Tests/Procedures Have Been Initiated: Orders Placed This Encounter >CBC + AUTO DIFF Standing Status: Future Number of Occurrences: 1 Standing Expiration Date: 05/12/2024 >CMP Standing Status: Future Number of Occurrences: 1 Standing Expiration Date: 05/12/2024 ECG COMPLETE Standing Status: Future Standing Expiration Date: 02/10/2025 ECG COMPLETE Order Comments: Ordered by an unspecified provider US LEG VEIN DVT [facility] Standing Status: Future Standing Expiration Date: 02/10/2025 REASON FOR VISIT: Regan Arango is a 83 year old male who is scheduled for Procedure(s): LAPAROSCOPIC CHOLECYSTECTOMY POSSIBLE OPEN (N/A) at the request of Ange Little MD for consultation. My final recommendation will be communicated back to the requesting physician by way of shared medical record or letter. Subjective The patient has the following: COVID-19 Immunization Status Postponed - Covid-19 Vaccine () Postponed until 10/08/2024 10/09/2023 Postponed until 10/08/2024 by Valerie Deshpande, FRANCY.INTEGRATED CIRCUIT DESIGN ENGINEER (Declined at this time) 03/21/2022 Imm Admin: COVID-19 vaccine, age 12+ yr, bivalent (NComputingBIONTeMindful) 05/10/2021 Imm Admin: COVID-19 original vaccine, full dose, monovalent (MODERNA) Only the first 3 history entries have been loaded, but more history exists. CHIEF COMPLAINT: Pre-op exam HPI: Regan Arango is a 83 year old seen for PAC due to scheduled above surgery because of RUQ pain. 01/26/2024, Dr. Ange Verduzco CHIEF COMPLAINT: Consult and Gallstones HPI: Regan is a 83 year old male with a complaint of right upper quadrant pain. [facility] lower right side abdominal pain. Patient had a CT/US of gallbladder previously and surgeon indicated that he didn't need to have his gallbladder removed. Labs Normal. CT in ER was normal. Patient was instructed to follow up on Dr. Lee for further workup of his gallbladder if he is still concerned. Notes indicate that patient was having tenderness much lower than his gallbladder. Patient has not follow up with Dr. Lee yet. My chart message from Patient: On Friday morning, January 02 I was in the ER at [facility] for the second time in less than two weeks due to being awakened by very sharp pain in my mid right side. After a CAT and Ultrasound the first visit, the culprit seemed to be my gallbladder. A surgeon viewed the ultrasound, did not believe surgerywas indicated, but I was instructed to return to ER should the pain happen again. Thus the second visit. Different doctor who seemed spectacle about gallbladder, but suggested that I should see a surgeon for an test that measures the gallbladder function. The DrLakhwinder named on my discharge papers is Dr.Anthony Willson [facility]. Do I need a referral from you for this appointment? Second ER doctor mentioned possible bowel gas. An observation: Several years ago a colonoscopy had to be stopped due to the presence of a twisted or thickened area of bowel that doctor didn't want to risk puncturing if test proceeded. Patient was seen in [facility] ER on 12/16/2023 for right upper quadrant pain. Though patient says today this was not in the RUQ it was in the right mid/lower abdomen. Per ER report the PE documents the pain as being RUQ. This recent episode was again during the night and awoken him from sleep with pain which he says was in the right mid lateral abdomen. No radiation from the back or into the groin. No nausea, vomiting or cold sweats with either of the two episodes. No diarrhea, hematochezia or melena. He can not say if he had eaten a meal at dinner that may of had fat in it. But says it was a meal like ones he has had in the past. In the ER report from 01/03/2024 there is no PE completed. In the medical decisionmaking section, it says patient with right sided pain with right flank pain. CBC showed normal WBC at 8.8 and Hg of 13.5. plt were 186. CT negative or any acute findings. LFT's and lipase were normal. UA was negative for UTI or blood. Patient has not had any abdominal surgeries. REVIEW OF SYSTEMS: General: No weight loss, malaise or fevers. Neurological: Positive for: peripheral neuropathy (on rx) and strokes. Patient's stroke is with residual deficits. Negative for: cerebral palsy, BAKER HEAD tumor, dementia, headaches, impaired sensorium, multiple sclerosis, Parkinson's disease, seizures and TIA. Respiratory: Positive for: obstructive sleep apnea and CPAP/BiPAP noncompliant. Negative for: asthma, COPD, pneumonia within 6 weeks, tobacco use and URI < 2 weeks. Cardiovascular: +bilateral carotid artery stenosis Positive for: anticoagulation therapy (Plavix), arrhythmia (1st degree AV block, SVT controlled on rx), hyperlipidemia (on rx), hypertension (on rx) and PVD Negative for: atrial fibrillation, CAD, chest pain, CHF, congenital heart defect, DVT/PE, recent MIand murmur/valvular heart disease. GI: See HPI. Positive for: abdominal pain (intermittently related to HPI), dysphagia (solids, intermittently) and esophageal stricture (s/p dilation) Negative for: GERD, hepatitis, irritable bowel syndrome, inflammatory bowel disease, liver disease,nausea, pancreatitis, vomiting and ETOH >2 drinks/day. : +renal cyst Positive for: BPH (on rx). Negative for: renal failure and urinary tract infection. Endocrine: Positive for: hypothyroidism (on rx). Negative for: diabetes mellitus. Hematology: Positive for: bruises/bleeds easily and chronic anti-coagulation/platelet meds. Patient is on anti-coagulation/platelet medication(s): Plavix. Negative for: anemia and transfusion of at least 4 units within 72 hours prior to surgery. Oncology: BCC/SCC s/p excision Bladder CA, Psych: No history of psychiatric symptoms or problems. Musculoskeletal: Positive for: back pain (s/p lumbar fusions). Skin: Negative for lesions, rash and itching. PAST MEDICAL HISTORY 09/08/2015: 1st degree AV block 08/09/2009: AC (acromioclavicular) joint arthritis 04/03/2015: Acquired hypothyroidism 03/08/2012: Actinic skin damage 07/13/2008: Acute, but ill-defined, cerebrovascular disease 03/21/2022: Advance directive discussed with patient Comment: Discussed 02/202207/24/2015: Anemia 10/30/2011: Arthritis of knee 05/28/2019: At risk for falls 02/03/2014: Atypical nevus of thoracic region 04/24/2014: Balance problem Comment: Due to CVA in 2008 and right leg weakness 12/27/2021: Bilateral carotid artery stenosis Comment: US 12/2021: R 40-60% L 20-40% 08/01/2014: Bilateral leg edema 09/07/2014: Bladder cancer (HCC) 03/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 07/13/2008: Cerebral artery occlusion with cerebral infarction (HCC) 03/08/2012: Phelan angioma 08/01/2014: Diastasis recti No date: Diverticulosis of colon (without mention of hemorrhage) 09/21/2012: Dupuytren's contracture of both hands 04/16/2010: Elevated fasting blood sugar No date: Essential hypertension Comment: Essential hypertension 06/02/2015: Familial peripheral neuropathy 04/29/2016: Gait difficulty 04/03/2015: Gastroesophageal reflux disease without esophagitis 03/20/2016: Greater trochanteric bursitis 09/04/2012: 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04/09/2023: History of bladder cancer 02/2008: History of CVA (cerebrovascular accident) Comment: residual weakness in right leg 03/29/2008: History of giant cell arteritis No date: Hx of long-term use of blood thinners 03/08/2012: Irritated//Inflamed Seborrheic Keratosis 03/21/2022: Living will on file Comment: DPA: Sudarshan () 01/13/2014: Low back pain 04/16/2022: Low serum vitamin B12 08/02/2014: Lower urinary tract symptoms (LUTS) 01/13/2014: Lumbar stenosis with neurogenic claudication Comment: Had seen Dr. Starr 04/12/2022: Memory difficulties Comment: 04/12/22 MMSE: 29/30 09/22/2015: Mild pulmonary hypertension (HCC) Comment: woody Hamilton, not able to tolerate CPAP for JESSY. 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 12/19/2015: Pain in both hands 05/08/2010: Postlaminectomy syndrome 09/08/2015: Premature supraventricular beats 08/06/2022: Pulmonary nodule Comment: Noted on CT at [facility] on 08/01/22. Repeat in 3-6 months. Multiple nodules up to 7mm in size. 04/25/2014: Right leg weakness 06/08/2009: Sebaceous cyst 06/02/2015: Stasis dermatitis of both legs 07/17/2020: SVT (supraventricular tachycardia) (HCC) 07/17/2020: SVT (supraventricular tachycardia) (HCC) 05/05/2009: Thoracic or lumbosacral neuritis or radiculitis, unspecified 11/26/2017: Thumb pain, left 07/26/2017: Tinnitus 10/12/2008: Unspecified arthropathy, lower leg 06/02/2015: Venous insufficiency (chronic) (peripheral) 07/23/2010: Vertigo following cerebrovascular accident 04/09/2013: Viral warts, unspecified 09/04/2012: Xerosis cutis PAST SURGICAL HISTORY 08/2015: 2D ECHO (EXEP) Comment: EF=64%, 1+ TR and mild Pulm HTN 02/06/2011: COLONOSCOPY FLX DX W/COLLJ SPEC WHEN PFRMD Comment: Colonoscopy, repeat 10 yrs 08/31/14 : CYSTO W/REMOVAL OF LESIONS MINOR <0.5CM 12/14/2018: ESOPHAGOGASTRODUODENOSCOPY TRANSORAL DIAGNOSTIC Comment: EGD 09/08/2018: FASCT PALM W/WO Z-PLASTY TISSUE REARGMT/SKN GRFT; Left Comment: Left 3rd finger fascietomy with skin graft, left 4th finger facietomy with local soft tissue rearrangements and trigger finger release 2010: L3-4 and L4-5 laminoforaminotomy 03-30-08: LIGATION/BIOPSY TEMPORAL ARTERY Comment: RIGHT, negitive. 05/05/2015: LUMBAR SPINE FUSION COMBINED 04/20/08: MAL LESION FACE,EAR,EYEL 1.1-2CM Comment: Exc. right lateral islam skin lesion and right forehead 2001: OPEN REPAIR OF ROTATOR CUFF ACUTE Comment: Rotator cuff repair left No date: PAST SURGICAL HISTORY OF Comment: ingrown toe nail removed 1965: PAST SURGICAL HISTORY OF Comment: cyst removed from bottom of spine 08/02/2010: SHOULDER ARTHROSCOPY/SURGERY Comment: Open Rt subacromial decompression 04/10/2015: STRESS TEST Comment: WNL 07/09/2018: STRESS TEST NUCLEAR Comment: negative FAMILY HISTORY Problem Relation Age of Onset Hypertension Mother Stroke Mother other (headaches) Mother Ischemic Heart Disease Father Heart Brother Social History Tobacco Use Smoking status: Never Passive exposure: Never Smokeless tobacco: Never Vaping Use Vaping status: Never Used Substance Use Topics Alcohol use: Not Currently Drug use: Never Prior to Admission medications as of 02/11/24 1514 Medication Sig Last Dose Taking gabapentin (NEURONTIN) 600 mg tablet Take 2 tablets by mouth three times a day for 180 days. TakingYes nystatin (NYSTOP) powder Apply 1 application to affected area three times a day. Taking Yes tamsulosin (FLOMAX) 0.4 mg TAKE 1 CAPSULE ONE TIME DAILY 30 MINUTES AFTER THE SAME MEAL EACH DAY Taking Yes DULoxetine (CYMBALTA) 30 mg capsule Take 1 capsule by mouth once daily. Taking Yes lisinopril 2.5 mg tablet Take 1 tablet by mouth once daily. Taking Yes pravastatin (PRAVACHOL) 20 mg tablet Take 1 tablet by mouth once daily. Taking Yes levothyroxine (LEVOXYL) 125 mcg tablet Take one tab daily Fri-Fri and two on Friday and FridayTake on empty stomach. For thyroid. Taking Yes finasteride (PROSCAR) 5 mg tablet Take 1 tablet by mouth once daily. Taking Yes traZODone (DESYREL) 50 mg tablet Take 1 tablet by mouth daily at bedtime. Taking Yes Fluorouracil 5 % cream Taking Yes potassium chloride ER (KLOR-CON M20) 20 mEq tablet Take 1 tablet by mouth once daily. Taking Yes cyanocobalamin (VITAMIN B-12) 1,000 mcg tab Take 1 tablet by mouth once daily. Taking Yes furosemide (LASIX) 20 mg tablet Take 1 tablet by mouth once daily. Taking Yes clopidogrel (PLAVIX) 75 mg tablet Take 1 tablet by mouth once daily. Taking Yes vit C/E/Zn/coppr/lutein/zeaxan (PRESERVISION AREDS-2 ORAL) Take by mouth two times a day. Taking Yes ZINC ORAL Take by mouth once daily. Taking Yes COMPOUNDED PRESCRIPTION rollator walker #: one Dx: I63.50, Z86.73, R26.89, G60.9, M62.81 and M48.06 Taking Yes multivitamins w-minerals/lut(CENTRUM SILVER TAB) Take by mouth. Taking Yes No medication comments found. ALLERGIES Allergen Reactions Ditropan [Oxybutyni* Other: See Comments Nausea, brain fog, increased weakness, decreased appetite, and increased restless leg symptoms. Prednisone Other: See Comments Had GI problems, headaches. Patient states he was on high dose for almost 90 days Objective PHYSICAL EXAM: General: alert and oriented (x3), healthy appearance and obese. Pertinent negatives noted - not distressed. Skin: normal color, no rash or lesions. HEENT: EOM intact and pupils equal round. Pertinent negatives noted - no carotid bruit. Cardiovascular: regular rate and rhythm, normal S1 and S2, no rub, murmurs, or gallop. Respiratory: normal breath sounds, no wheezes or crackles. No chest wall deformity or tenderness. Abdomen: soft. Pertinent negatives noted - not tender. Extremities: no deformity, no edema or tenderness, no joint swelling or clubbing. Neurological: normal cognition and motor skills. Gait normal. No weakness or sensory deficit. PAIN ASSESSMENT: VITALS: BP 116/60 Pulse 67 Temp 98.5 Resp 16 Ht 5' 11 (1.80m) Wt 280 lb 9.6 oz (127.3kg) SpO2 95% BMI 39.15 kg/(m^2). Diagnostic tests reviewed for today's visit: Lab Value Units Date High Low HB 14.3 g/dL 02/11/2024 17.0 13.0 HCT 44.8 % 02/11/2024 51.0 39.0 WBC 9.73 k/uL 02/11/2024 11.00 3.70 PLT 189 k/uL 02/11/2024 400 150 NA 141 mmol/L 02/11/2024 144 136 K 4.5 mmol/L 02/11/2024 5.1 3.7 GLUC 91 mg/dL 02/11/2024 99 74 BUN 26 mg/dL 02/11/2024 24 9 CREAT 0.92 mg/dL 02/11/2024 1.22 0.73 PTSEC No results within date range. INR No results within date range. APTT No results within date range. ALT 11 U/L 02/11/2024 54 10 AST 12 U/L 02/11/2024 40 14 TBILI 0.4 mg/dL 02/11/2024 1.3 0.2 TSH 1.000 mIU/L 09/29/2023 4.200 0.270 Lab Value Units Date High Low HCGQT No results within date range. UHCG No results within date range. HCG, BODY* No results within date range. Lab Value Units Date High Low ABORHD No results within date range. ABSCREEN No results within date range. Hemoglobin A1C (%) Date Value 09/29/2023 5.5 03/26/2023 5.6 09/23/2022 5.5 03/19/2022 6.0 12/10/2021 6.4 03/13/2021 6.5 08/25/2020 6.3 10/29/2019 6.1 05/24/2019 5.9 11/25/2018 5.7 Recent Results (from the past 8760 hour(s)) ECG COMPLETE Collection Time: 02/11/24 3:33 PM Result Value Ventricular Rate 63 Atrial Rate 63 P-R Interval 440 QRS Duration 84 QT Interval 434 QTC Calculation (Bazett) 444 Calculated R Dulzura -22 Calculated T Dulzura 51 Impression SINUS RHYTHM WITH 1ST DEGREE AV BLOCK WITH PREMATURE SUPRAVENTRICULAR COMPLEXES MINIMAL VOLTAGE CRITERIA FOR LVH, MAY BE NORMAL VARIANT BORDERLINE ECG Confirmed by MD MALCOLM, QARAB ([id number]) on 02/12/2024 11:43:07 AM Recent Results (from the past 65178 hour(s)) ECHO Collection Time: 12/25/21 8:42 AM Impression CONCLUSIONS: - Technically difficult exam due to body habitus. - Exam indication: TIA - The left ventricle is normal in size. Left ventricular systolic function is normal. EF = 65 5% (2D biplane) Indeterminate left ventricular diastolic dysfunction due to inconsistent or technically suboptimal data. - The right ventricle is normal in size. Right ventricular systolic function is normal. - There are no significant valvular abnormalities. - The visualized aorta is borderline dilated with a maximal dimension of 4.0 cm. - Exam was compared with the prior echocardiographic exam performed on 11/03/2018, no significant change. * * * Final * * * Instructions Given to Patient: Instructions located in the after visit summary. Patient given verbal and written preop instructions and voices comprehension and compliance. SIGNATURE: Candice Kahn APRN.CNP PATIENT NAME: Regan Arango DATE: February 11, 2024 TIME: 2:32 PM PAGER/CONTACT #: [facility]08-21-2024 History and physical note* Candice Kahn APRN.CNP - 02/11/2024 2:32 PM EDT Images from the original note were not included. [facility] HISTORY AND PHYSICAL EXAMINATION SERVICE DATE: 02/11/2024 SERVICE TIME: 4:24 PM PRIMARY CARE PHYSICIAN: Jose Fam MD Assessment Patient has the following medical conditions which may affect bibi-operative course: SVT (supraventricular tachycardia) (HCC) Assessment: controlled on rx 12/01/2023 Dr. Jose Assessment and Plan: 83 years old gentleman prior history of supraventricular tachycardia hypertensive heart disease ASSESSMENT/PLAN: 1. SVT (supraventricular tachycardia) (HCC) - ICD9: 427.89, ICD10: I47.10 (primary diagnosis) Stable with few episodes and runs of SVT controlled well 2. Essential hypertension - ICD9: 401.9, ICD10: I10 - Controlled - Continue current medications - Recommend home blood pressure monitoring, to bring results to next visit - Encouraged sodium restriction, DASH or Mediterranean diet - Recommend regular aerobic exercise Nikko Jose MD Follow up planning: One year History of CVA (cerebrovascular accident) Assessment: residual right leg weakness, balance issues, uses walker Venous insufficiency (chronic) (peripheral) Assessment: bilateral lower extremity edema L>R since an injury end of November when he fell per , large hematoma that appears to be resolving but left leg slightly larger, tender varicosities posterior left calf, no erythema or increased warmth. Doppler ordered to ensure and pt of possibility of a DVT. Familial peripheral neuropathy Assessment: controlled on rx Essential hypertension Assessment: controlled on rx Last 14 BP Last 14 Encounter BP Readings: Date: BP: 02/11/2024 116/60 01/26/2024 132/72 01/20/2024 143/71 01/13/2024 125/73 01/07/2024 122/78 12/27/2023 132/80 12/01/2023 134/64 11/03/2023 128/70 10/09/2023 115/68 09/09/2023 125/76 08/26/2023 127/75 08/04/2023 118/66 06/12/2023 142/68 05/23/2023 130/78 Mild pulmonary hypertension (HCC) Assessment: following cardiology, normal RSVP 12/2021 ecoh Recent Results (from the past 34475 hour(s)) ECHO Collection Time: 12/25/21 8:42 AM Impression CONCLUSIONS: - Technically difficult exam due to body habitus. - Exam indication: TIA - The left ventricle is normal in size. Left ventricular systolic function is normal. EF = 65 5% (2D biplane) Indeterminate left ventricular diastolic dysfunction due to inconsistent or technically suboptimal data. - The right ventricle is normal in size. Right ventricular systolic function is normal. - There are no significant valvular abnormalities. - The visualized aorta is borderline dilated with a maximal dimension of 4.0 cm. - Exam was compared with the prior echocardiographic exam performed on 11/03/2018, no significant change. * * * Final * * * Mixed hyperlipidemia Assessment: c/w statin JESSY (obstructive sleep apnea) Assessment: non-compliant with CPAP Pulmonary nodule Assessment: under surveillance, stable 06/[address] Gastroesophageal reflux disease without esophagitis Assessment: diet controlled BPH with obstruction/lower urinary tract symptoms Assessment: controlled on rx Multiple renal cysts Assessment: hx, stable on repeat imaging 02/2021 CT Creatinine Date Value Ref Range Status 09/29/2023 0.86 0.73 - 1.22 mg/dL Final 03/26/2023 0.94 0.73 - 1.22 mg/dL Final 09/23/2022 0.76 0.73 - 1.22 mg/dL Final 03/19/2022 0.94 0.73 - 1.22 mg/dL Final Acquired hypothyroidism Assessment: stable on rx Elevated fasting blood sugar Assessment: diet controlled Hemoglobin A1C (%) Date Value 09/29/2023 5.5 03/13/2021 6.5 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 Assessment: s/p excision History of bladder cancer Assessment: Chronic - stable Dr. Ochoa performed a surveillance cystoscopy in September 2023. No acute findings. RTC in 1 for repeat Cysto per his note 1St degree AV block Assessment: following cardiology OAB (overactive bladder) Assessment: controlled on rx Bilateral leg edema Assessment: controlled on rx Bilateral carotid artery stenosis Assessment: 04/2023 Carotis US right 40-59%, left 20-39% Segura Activity Status Index: METS: Climb a flight of stairs or walk up a hill (5.50 METs) DASI Score: 5.5 Patient denies any chest pain or undue shortness of breath with the above physical activity. Clinical Frailty Scale: 3. Well, with treated comorbid disease STOP-Bang Score: Snores loudly Has or is being treated for high blood pressure BMI greater than 35 kg/m^2 Patient over 50 years old Has a large neck Male patient Denies feeling tired, fatigued, or sleepy during the daytime Has not been observed to stop breathing or choking/gasping during sleep STOP-Bang Score: 6 Malnutrition Screening Tool: Recent weight loss without trying: No Eating poorly due to decreased appetite: No Weight Loss Score: 0 Appetite Score: 0 MST Score: 0 [id number] Score: Age: >=75 Sex: male CHF history: No Hypertension history: Yes Stroke/TIA/thromboembolism history: Yes Vascular disease history: Yes Diabetes history: No [id number] Score: 6 ARISCAT Score: Age: >80 Preoperative SpO2: 91-95% Respiratory infection in the last month: No Preoperative anemia: Yes Surgical incision: peripheral Duration of surgery: <2 hrs Emergency procedure: No ARISCAT Score: 35 ANESTHESIA FINDINGS: Intubation History: No history of difficult intubation Significant Anesthesia Considerations: none Airway History: No history of difficult airway I - PHYSICAL EVALUATION AIRWAY Patient intubated: No. Tracheostomy tube not present Mallampati: III. TM distance: >3 FB. Neck ROM: full ROM without neurological symptoms. Mouth opening: adequate. Short neck: no. Thick neck: yes Nicole present: no Lip Bite Test: I Microretrognathia/Micronagthia/Recessed Chin: No DENTAL Dental findings: teeth intact. II - ANESTHESIA PLAN Anesthetic Plan: other Beta Danny Monitoring Plan Post Procedure Analgesic Plan Informed Consent Anesthetic risks, benefits, alternatives, personnel and consent discussed: yes. Patient / Responsible [employer] Party agrees to proceed: yes Prepared for Surgery: optimally prepared for surgery. Labs and ekg-reviewed, okay to proceed-JL CONSULTS: Patient does not require consults for optimization at this time Planned Anesthetic: other anesthesia choice The Following Tests/Procedures Have Been Initiated: Orders Placed This Encounter >CBC + AUTO DIFF Standing Status: Future Number of Occurrences: 1 Standing Expiration Date: 05/12/2024 >CMP Standing Status: Future Number of Occurrences: 1 Standing Expiration Date: 05/12/2024 ECG COMPLETE Standing Status: Future Standing Expiration Date: 02/10/2025 ECG COMPLETE Order Comments: Ordered by an unspecified provider US LEG VEIN DVT [facility] Standing Status: Future Standing Expiration Date: 02/10/2025 REASON FOR VISIT: Regan Arango is a 83 year old male who is scheduled for Procedure(s): LAPAROSCOPIC CHOLECYSTECTOMY POSSIBLE OPEN (N/A) at the request of Ange Little MD for consultation. My final recommendation will be communicated back to the requesting physician by way of shared medical record or letter. Subjective The patient has the following: COVID-19 Immunization Status Postponed - Covid-19 Vaccine () Postponed until 10/08/2024 10/09/2023 Postponed until 10/08/2024 by Valerie Deshpande APRN.INTEGRATED CIRCUIT DESIGN ENGINEER (Declined at this time) 03/21/2022 Imm Admin: COVID-19 vaccine, age 12+ yr, bivalent ([employer]) 05/10/2021 Imm Admin: COVID-19 original vaccine, full dose, monovalent (MODERNA) Only the first 3 history entries have been loaded, but more history exists. CHIEF COMPLAINT: Pre-op exam HPI: Regan Arango is a 83 year old seen for PAC due to scheduled above surgery because of RUQ pain. 01/26/2024, Dr. Ange Verduzco CHIEF COMPLAINT: Consult and Gallstones HPI: Regan is a 83 year old male with a complaint of right upper quadrant pain. [facility] for lower right side abdominal pain. Patient had a CT/US of gallbladder previously and surgeon indicated that he didn't need to have his gallbladder removed. Labs Normal. CT in ER was normal. Patient was instructed to follow up on Dr. Lee for further workup of his gallbladder if he is still concerned. Notes indicate that patient was having tenderness much lower than his gallbladder. Patient has not follow up with Dr. Lee yet. My chart message from Patient: On Friday morning, January 02 I was in the ER at [facility] for the second time in less than two weeks due to being awakened by very sharp pain in my mid right side. After a CAT and Ultrasound the first visit, the culprit seemed to be my gallbladder. A surgeon viewed the ultrasound, did not believe surgerywas indicated, but I was instructed to return to ER should the pain happen again. Thus the second visit. Different doctor who seemed spectacle about gallbladder, but suggested that I should see a surgeon for an test that measures the gallbladder function. The DrLakhwinder named on my discharge papers is Dr.Anthony Willson [facility]. Do I need a referral from you for this appointment? Second ER doctor mentioned possible bowel gas. An observation: Several years ago a colonoscopy had to be stopped due to the presence of a twisted or thickened area of bowel that doctor didn't want to risk puncturing if test proceeded. Patient was seen in [facility] ER on 12/16/2023 for right upper quadrant pain. Though patient says today this was not in the RUQ it was in the right mid/lower abdomen. Per ER report the PE documents the pain as being RUQ. This recent episode was again during the night and awoken him from sleep with pain which he says was in the right mid lateral abdomen. No radiation from the back or into the groin. No nausea, vomiting or cold sweats with either of the two episodes. No diarrhea, hematochezia or melena. He can not say if he had eaten a meal at dinner that may of had fat in it. But says it was a meal like ones he has had in the past. In the ER report from 01/03/2024 there is no PE completed. In the medical decisionmaking section, it says patient with right sided pain with right flank pain. CBC showed normal WBC at 8.8 and Hg of 13.5. plt were 186. CT negative or any acute findings. LFT's and lipase were normal. UA was negative for UTI or blood. Patient has not had any abdominal surgeries. REVIEW OF SYSTEMS: General: No weight loss, malaise or fevers. Neurological: Positive for: peripheral neuropathy (on rx) and strokes. Patient's stroke is with residual deficits. Negative for: cerebral palsy, BAKER HEAD tumor, dementia, headaches, impaired sensorium, multiple sclerosis, Parkinson's disease, seizures and TIA. Respiratory: Positive for: obstructive sleep apnea and CPAP/BiPAP noncompliant. Negative for: asthma, COPD, pneumonia within 6 weeks, tobacco use and URI < 2 weeks. Cardiovascular: +bilateral carotid artery stenosis Positive for: anticoagulation therapy (Plavix), arrhythmia (1st degree AV block, SVT controlled on rx), hyperlipidemia (on rx), hypertension (on rx) and PVD Negative for: atrial fibrillation, CAD, chest pain, CHF, congenital heart defect, DVT/PE, recent MIand murmur/valvular heart disease. GI: See HPI. Positive for: abdominal pain (intermittently related to HPI), dysphagia (solids, intermittently) and esophageal stricture (s/p dilation) Negative for: GERD, hepatitis, irritable bowel syndrome, inflammatory bowel disease, liver disease,nausea, pancreatitis, vomiting and ETOH >2 drinks/day. : +renal cyst Positive for: BPH (on rx). Negative for: renal failure and urinary tract infection. Endocrine: Positive for: hypothyroidism (on rx). Negative for: diabetes mellitus. Hematology: Positive for: bruises/bleeds easily and chronic anti-coagulation/platelet meds. Patient is on anti-coagulation/platelet medication(s): Plavix. Negative for: anemia and transfusion of at least 4 units within 72 hours prior to surgery. Oncology: BCC/SCC s/p excision Bladder CA, Psych: No history of psychiatric symptoms or problems. Musculoskeletal: Positive for: back pain (s/p lumbar fusions). Skin: Negative for lesions, rash and itching. PAST MEDICAL HISTORY 09/08/2015: 1st degree AV block 08/09/2009: AC (acromioclavicular) joint arthritis 04/03/2015: Acquired hypothyroidism 03/08/2012: Actinic skin damage 07/13/2008: Acute, but ill-defined, cerebrovascular disease 03/21/2022: Advance directive discussed with patient Comment: Discussed 02/202207/24/2015: Anemia 10/30/2011: Arthritis of knee 05/28/2019: At risk for falls 02/03/2014: Atypical nevus of thoracic region 04/24/2014: Balance problem Comment: Due to CVA in 2008 and right leg weakness 12/27/2021: Bilateral carotid artery stenosis Comment: US 12/2021: R 40-60% L 20-40% 08/01/2014: Bilateral leg edema 09/07/2014: Bladder cancer (HCC) 03/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 07/13/2008: Cerebral artery occlusion with cerebral infarction (HCC) 03/08/2012: Phelan angioma 08/01/2014: Diastasis recti No date: Diverticulosis of colon (without mention of hemorrhage) 09/21/2012: Dupuytren's contracture of both hands 04/16/2010: Elevated fasting blood sugar No date: Essential hypertension Comment: Essential hypertension 06/02/2015: Familial peripheral neuropathy 04/29/2016: Gait difficulty 04/03/2015: Gastroesophageal reflux disease without esophagitis 03/20/2016: Greater trochanteric bursitis 09/04/2012: 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04/09/2023: History of bladder cancer 02/2008: History of CVA (cerebrovascular accident) Comment: residual weakness in right leg 03/29/2008: History of giant cell arteritis No date: Hx of long-term use of blood thinners 03/08/2012: Irritated//Inflamed Seborrheic Keratosis 03/21/2022: Living will on file Comment: DPA: Sudarshan Mcdaniel) 01/13/2014: Low back pain 04/16/2022: Low serum vitamin B12 08/02/2014: Lower urinary tract symptoms (LUTS) 01/13/2014: Lumbar stenosis with neurogenic claudication Comment: Had seen Dr. Starr 04/12/2022: Memory difficulties Comment: 04/12/22 MMSE: 29/30 09/22/2015: Mild pulmonary hypertension (HCC) Comment: sen Dr. Hamilton, not able to tolerate CPAP for JESSY. 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 12/19/2015: Pain in both hands 05/08/2010: Postlaminectomy syndrome 09/08/2015: Premature supraventricular beats 08/06/2022: Pulmonary nodule Comment: Noted on CT at [facility] on 08/01/22. Repeat in 3-6 months. Multiple nodules up to 7mm in size. 04/25/2014: Right leg weakness 06/08/2009: Sebaceous cyst 06/02/2015: Stasis dermatitis of both legs 07/17/2020: SVT (supraventricular tachycardia) (HCC) 07/17/2020: SVT (supraventricular tachycardia) (HCC) 05/05/2009: Thoracic or lumbosacral neuritis or radiculitis, unspecified 11/26/2017: Thumb pain, left 07/26/2017: Tinnitus 10/12/2008: Unspecified arthropathy, lower leg 06/02/2015: Venous insufficiency (chronic) (peripheral) 07/23/2010: Vertigo following cerebrovascular accident 04/09/2013: Viral warts, unspecified 09/04/2012: Xerosis cutis PAST SURGICAL HISTORY 08/2015: 2D ECHO (EXEP) Comment: EF=64%, 1+ TR and mild Pulm HTN 02/06/2011: COLONOSCOPY FLX DX W/COLLJ SPEC WHEN PFRMD Comment: Colonoscopy, repeat 10 yrs 08/31/14 : CYSTO W/REMOVAL OF LESIONS MINOR <0.5CM 12/14/2018: ESOPHAGOGASTRODUODENOSCOPY TRANSORAL DIAGNOSTIC Comment: EGD 09/08/2018: FASCT PALM W/WO Z-PLASTY TISSUE REARGMT/SKN GRFT; Left Comment: Left 3rd finger fascietomy with skin graft, left 4th finger facietomy with local soft tissue rearrangements and trigger finger release 2010: L3-4 and L4-5 laminoforaminotomy 03-30-08: LIGATION/BIOPSY TEMPORAL ARTERY Comment: RIGHT, negitive. 05/05/2015: LUMBAR SPINE FUSION COMBINED 04/20/08: MAL LESION FACE,EAR,EYEL 1.1-2CM Comment: Exc. right lateral islam skin lesion and right forehead 2000: OPEN REPAIR OF ROTATOR CUFF ACUTE Comment: Rotator cuff repair left No date: PAST SURGICAL HISTORY OF Comment: ingrown toe nail removed 1965: PAST SURGICAL HISTORY OF Comment: cyst removed from bottom of spine 08/02/2010: SHOULDER ARTHROSCOPY/SURGERY Comment: Open Rt subacromial decompression 04/10/2015: STRESS TEST Comment: WNL 07/09/2018: STRESS TEST NUCLEAR Comment: negative FAMILY HISTORY Problem Relation Age of Onset Hypertension Mother Stroke Mother other (headaches) Mother Ischemic Heart Disease Father Heart Brother Social History Tobacco Use Smoking status: Never Passive exposure: Never Smokeless tobacco: Never Vaping Use Vaping status: Never Used Substance Use Topics Alcohol use: Not Currently Drug use: Never Prior to Admission medications as of 02/11/24 1514 Medication Sig Last Dose Taking gabapentin (NEURONTIN) 600 mg tablet Take 2 tablets by mouth three times a day for 180 days. TakingYes nystatin (NYSTOP) powder Apply 1 application to affected area three times a day. Taking Yes tamsulosin (FLOMAX) 0.4 mg TAKE 1 CAPSULE ONE TIME DAILY 30 MINUTES AFTER THE SAME MEAL EACH DAY Taking Yes DULoxetine (CYMBALTA) 30 mg capsule Take 1 capsule by mouth once daily. Taking Yes lisinopril 2.5 mg tablet Take 1 tablet by mouth once daily. Taking Yes pravastatin (PRAVACHOL) 20 mg tablet Take 1 tablet by mouth once daily. Taking Yes levothyroxine (LEVOXYL) 125 mcg tablet Take one tab daily Fri-Fri and two on Friday and FridayTake on empty stomach. For thyroid. Taking Yes finasteride (PROSCAR) 5 mg tablet Take 1 tablet by mouth once daily. Taking Yes traZODone (DESYREL) 50 mg tablet Take 1 tablet by mouth daily at bedtime. Taking Yes Fluorouracil 5 % cream Taking Yes potassium chloride ER (KLOR-CON M20) 20 mEq tablet Take 1 tablet by mouth once daily. Taking Yes cyanocobalamin (VITAMIN B-12) 1,000 mcg tab Take 1 tablet by mouth once daily. Taking Yes furosemide (LASIX) 20 mg tablet Take 1 tablet by mouth once daily. Taking Yes clopidogrel (PLAVIX) 75 mg tablet Take 1 tablet by mouth once daily. Taking Yes vit C/E/Zn/coppr/lutein/zeaxan (PRESERVISION AREDS-2 ORAL) Take by mouth two times a day. Taking Yes ZINC ORAL Take by mouth once daily. Taking Yes COMPOUNDED PRESCRIPTION rollator walker #: one Dx: I63.50, Z86.73, R26.89, G60.9, M62.81 and M48.06 Taking Yes multivitamins w-minerals/lut(CENTRUM SILVER TAB) Take by mouth. Taking Yes No medication comments found. ALLERGIES Allergen Reactions Ditropan [Oxybutyni* Other: See Comments Nausea, brain fog, increased weakness, decreased appetite, and increased restless leg symptoms. Prednisone Other: See Comments Had GI problems, headaches. Patient states he was on high dose for almost 90 days Objective PHYSICAL EXAM: General: alert and oriented (x3), healthy appearance and obese. Pertinent negatives noted - not distressed. Skin: normal color, no rash or lesions. HEENT: EOM intact and pupils equal round. Pertinent negatives noted - no carotid bruit. Cardiovascular: regular rate and rhythm, normal S1 and S2, no rub, murmurs, or gallop. Respiratory: normal breath sounds, no wheezes or crackles. No chest wall deformity or tenderness. Abdomen: soft. Pertinent negatives noted - not tender. Extremities: no deformity, no edema or tenderness, no joint swelling or clubbing. Neurological: normal cognition and motor skills. Gait normal. No weakness or sensory deficit. PAIN ASSESSMENT: VITALS: BP 116/60 Pulse 67 Temp 98.5 Resp 16 Ht 5' 11 (1.80m) Wt 280 lb 9.6 oz (127.3kg) SpO2 95% BMI 39.15 kg/(m^2). Diagnostic tests reviewed for today's visit: Lab Value Units Date High Low HB 14.3 g/dL 02/11/2024 17.0 13.0 HCT 44.8 % 02/11/2024 51.0 39.0 WBC 9.73 k/uL 02/11/2024 11.00 3.70 PLT 189 k/uL 02/11/2024 400 150 NA 141 mmol/L 02/11/2024 144 136 K 4.5 mmol/L 02/11/2024 5.1 3.7 GLUC 91 mg/dL 02/11/2024 99 74 BUN 26 mg/dL 02/11/2024 24 9 CREAT 0.92 mg/dL 02/11/2024 1.22 0.73 PTSEC No results within date range. INR No results within date range. APTT No results within date range. ALT 11 U/L 02/11/2024 54 10 AST 12 U/L 02/11/2024 40 14 TBILI 0.4 mg/dL 02/11/2024 1.3 0.2 TSH 1.000 mIU/L 09/29/2023 4.200 0.270 Lab Value Units Date High Low HCGQT No results within date range. UHCG No results within date range. HCG, BODY* No results within date range. Lab Value Units Date High Low ABORHD No results within date range. ABSCREEN No results within date range. Hemoglobin A1C (%) Date Value 09/29/2023 5.5 03/26/2023 5.6 09/23/2022 5.5 03/19/2022 6.0 12/10/2021 6.4 03/13/2021 6.5 08/25/2020 6.3 10/29/2019 6.1 05/24/2019 5.9 11/25/2018 5.7 Recent Results (from the past 8760 hour(s)) ECG COMPLETE Collection Time: 02/11/24 3:33 PM Result Value Ventricular Rate 63 Atrial Rate 63 P-R Interval 440 QRS Duration 84 QT Interval 434 QTC Calculation (Bazett) 444 Calculated R Dulzura -22 Calculated T Dulzura 51 Impression SINUS RHYTHM WITH 1ST DEGREE AV BLOCK WITH PREMATURE SUPRAVENTRICULAR COMPLEXES MINIMAL VOLTAGE CRITERIA FOR LVH, MAY BE NORMAL VARIANT BORDERLINE ECG Confirmed by MD MALCOLM, QARAB ([id number]) on 02/12/2024 11:43:07 AM Recent Results (from the past 43846 hour(s)) ECHO Collection Time: 12/25/21 8:42 AM Impression CONCLUSIONS: - Technically difficult exam due to body habitus. - Exam indication: TIA - The left ventricle is normal in size. Left ventricular systolic function is normal. EF = 65 5% (2D biplane) Indeterminate left ventricular diastolic dysfunction due to inconsistent or technically suboptimal data. - The right ventricle is normal in size. Right ventricular systolic function is normal. - There are no significant valvular abnormalities. - The visualized aorta is borderline dilated with a maximal dimension of 4.0 cm. - Exam was compared with the prior echocardiographic exam performed on 11/03/2018, no significant change. * * * Final * * * Instructions Given to Patient: Instructions located in the after visit summary. Patient given verbal and written preop instructions and voices comprehension and compliance. SIGNATURE: Candice Kahn APRN.CNP PATIENT NAME: Regan Arango DATE: February 11, 2024 TIME: 2:32 PM [facility]CONTACT [facility]* Patient Instructions* Candice Kahn APRN.CNP - 02/11/2024 2:31 PM EDT Images from the original note were not included. [facility] PATIENT PREOPERATIVE INSTRUCTIONS Ange Verduzco MD has scheduled you for your procedure at this surgery center: [facility]: [phone] -- [address] [facility] [address]. Please read below carefully for your personalized instructions. Dietary Restrictions: - No solid food after midnight. - You may have 12 ounces of clear liquids (water, clear juices such as apple juice or gatorade, carbonated beverages, clear tea, black coffee, jello) until 2 hours before scheduled arrival at facility. No red/purple coloring and no creamer/sugar Medications: Unless instructed differently below, stay on all of your medications until your surgery. If you start any new medications after today's visit, please contact your surgeon. Pre-Surgery Med Instructions Medication Instructions gabapentin (NEURONTIN) 600 mg tablet Take the day of surgery with a small sip of water nystatin (NYSTOP) powder Do not take the day of surgery tamsulosin (FLOMAX) 0.4 mg Take the day of surgery with a small sip of water DULoxetine (CYMBALTA) 30 mg capsule Take the day of surgery with a small sip of water lisinopril 2.5 mg tablet Do not take the day of surgery pravastatin (PRAVACHOL) 20 mg tablet Take the day of surgery with a small sip of water levothyroxine (LEVOXYL) 125 mcg tablet Take the day of surgery with a small sip of water finasteride (PROSCAR) 5 mg tablet Take the day of surgery with a small sip of water traZODone (DESYREL) 50 mg tablet Do not take the day of surgery Fluorouracil 5 % cream Do not take the day of surgery potassium chloride ER (KLOR-CON M20) 20 mEq tablet Take the day of surgery with a small sip of water cyanocobalamin (VITAMIN B-12) 1,000 mcg tab Stop 7 days before surgery furosemide (LASIX) 20 mg tablet Do not take the day of surgery clopidogrel (PLAVIX) 75 mg tablet Stop 5 days before surgery vit C/E/Zn/coppr/lutein/zeaxan (PRESERVISION AREDS-2 ORAL) Stop 7 days before surgery ZINC ORAL Stop 7 days before surgery COMPOUNDED PRESCRIPTION multivitamins w-minerals/lut(CENTRUM SILVER TAB) Stop 7 days before surgery If you take any medications for erectile dysfunction-Cialis (Tadalafil), Levitra, Staxyn (Vardenafil) Viagra (Sildenenafil please do not take these for 48 hours before surgery. If you start any new medications after today's visit, please contact the surgeon's office. Blood Thinning Medications: - Stop NSAIDS (Ibuprofen, Advil, Aleve, Motrin, Celebrex, Mobic, etc.) 7 days before surgery, as directed by your surgeon. - Stop Aspirin 7 days before surgery, as directed by your surgeon. - Stop Plavix 5 days before surgery or as directed by physician. - Stop Vitamin E, ALL multi-vitamins, herbals and dietary supplements 7 days before surgery. - You may take Tylenol (Acetaminophen) or any of your pain medications that do not contain aspirin or NSAIDS as needed. Important Reminders: - Candy, mints, and tobacco products are NOT permitted the morning of surgery. - Hearing aids, dentures and glasses may be worn the morning of surgery. - NO jewelry, body piercings, makeup, hairpins or contacts are to be worn the day of surgery. If you develop symptoms such as a fever, cold, or flu, or have other changes to your health within TWO DAYS of scheduled surgery or the morning of surgery, please contact the surgery center above. Personal Belongings: -Please have photo ID and insurance cards. -If you do not have a copy of advance directives on file with us, please bring a copy with you on the day of surgery. - Leave ALL valuables and money at home or with family members. For Outpatient Procedures: - YOU MUST HAVE A RESPONSIBLE BRANDING MACHINE OPERATOR TAKE YOU HOME. A WAITER/WAITRESS TOURIST CLASS OR DIRECTOR TRANSITION CANNOT BE MADE A RESPONSIBLE BRANDING MACHINE OPERATOR. - We recommend that a responsible person stays with you overnight to take care of you. - You cannot stay in a hotel alone after outpatient surgery. You will not be permitted to have yoursurgery, if you do not have someone to take care of you. Arrival Time for Surgery: - The Surgery Center or hospital where you are having surgery will call the afternoon before surgery (or Friday for Friday surgery) with a scheduled arrival time. - If you have not heard by 4 pm, please contact the surgery center above. Please be aware that emergency situations arise, which may delay or change your surgical time. If this happens, we will notify you as soon as possible and regret any inconvenience. If you already have an Advance Directive, please fax a copy to [phone] or email to for it to be added to your chart. If you do not have an Advance Directive, you can find the appropriate form and more information at [email or web address]. We recommend that youcomplete the Advance Directive form found on the website and bring it with you the day of your surgery. It can be witnessed and scanned into your chart that day. Candice Kahn APRN.INTEGRATED CIRCUIT DESIGN ENGINEER documented [facility] Telephone encounter Note * Telephone Encounter - Taz Marie LPN - 02/09/2024 2:22 PM EDT Pt notified of pcp's message and instructions, pt verbalizes understanding. Copy of message and instructions was also sent to pt via for pt to reference. Taz Marie LPN [facility]08-19-[facility]24 Miscellaneous Notes* Telephone Encounter - Taz Marie LPN - 02/09/2024 2:22 PM EDT Pt notified of pcp's message and instructions, pt verbalizes understanding. Copy of message and instructions was also sent to pt via for pt to reference. Taz Marie LPN * Telephone Encounter - Jose Fam MD - 02/09/2024 1:49 PM EDT Let patient know his gabapentin was sent in. It looks like he has probably been off it for over a month. Have him start one a day for 5 days and every fith day add on another pill till he gets back to 2 tabs three times a day. ie: 1 a day for 5 days, then 1 twice a day for 5 days, then 1 three times a day for 5 days, then 2 AM and 1 in afternoon and PM for 5 days, then 2 in AM and afternoon with 1 in PM for 5 days and then2 three times a day. The following approved medication requests have been transmitted electronically. Requested Prescriptions Signed Prescriptions Disp Refills gabapentin (NEURONTIN) 600 mg tablet 540 tablet 1 Sig: Take 2 tablets by mouth three times a day for 180 days. Authorizing Provider: JOSE FAM MD * Telephone Encounter - Taz Marie LPN - 02/09/2024 1:09 PM EDT Please see message below. Pt does have upcoming appointment 04/09/24 * Telephone Encounter - Monique Grimm - 02/09/2024 12:54 PM EDT Patient called to refill his gabapentin rx. However, he said he has been without it for several days. Wants to know if he can start taking it again without any issues. If approved, he uses [facility] in [place]. Please advise at [phone]. documented in this encounterPe[facility]08-[facility]24 Telephone encounter Note * Telephone Encounter - Jose Fam MD - 02/09/2024 1:49 PM EDT Let patient know his gabapentin was sent in. It looks like he has probably been off it for over a month. Have him start one a day for 5 days and every fith day add on another pill till he gets back to 2 tabs three times a day. ie: 1 a day for 5 days, then 1 twice a day for 5 days, then 1 three times a day for 5 days, then 2 AM and 1 in afternoon and PM for 5 days, then 2 in AM and afternoon with 1 in PM for 5 days and then2 three times a day. The following approved medication requests have been transmitted electronically. Requested Prescriptions Signed Prescriptions Disp Refills gabapentin (NEURONTIN) 600 mg tablet 540 tablet 1 Sig: Take 2 tablets by mouth three times a day for 180 days. Authorizing Provider: JOSE FAM MD [facility]08-[facility] Telephone encounter Note* Telephone Encounter - Taz Marie LPN - 02/09/2024 1:09 PM EDT Please see message below. Pt does have upcoming appointment 04/09/24 [facility] Tele[facility] encounter Note* Telephone Encounter - Monique Grimm - 02/09/2024 12:54 PM EDT Patient called to refill his gabapentin rx. However, he said he has been without it for several days. Wants to know if he can start taking it again without any issues. If approved, he uses [facility] [place]. Please advise at [phone]. [facility] Tele[facility] encounter Note* Telephone Encounter - Yanci Zimmer RN - 01/26/2024 3:26 PM EDT . [facility] Miscellaneous Notes* Telephone Encounter - Yanci Zimmer RN - 01/26/2024 3:26 PM EDT . documented in [facility] encounterPe[facility] of Present illness Narrative* Ange Verduzco MD - 01/26/2024 1:47 PM EDT HISTORY AND PHYSICAL Regan Arango 1940 REFERRING PHYSICIAN: Jose Fam MD CHIEF COMPLAINT: Consult and Gallstones HPI: Regan is a 83 year old male with a complaint of right upper quadrant pain. [facility] lower right side abdominal pain. Patient had a CT/US of gallbladder previously and surgeon indicated that he didn't need to have his gallbladder removed. Labs Normal. CT in ER was normal. Patient was instructed to follow up on Dr. Lee for further workup of his gallbladder if he is still concerned. Notes indicate that patient was having tenderness much lower than his gallbladder. Patient has not follow up with Dr. Lee yet. My chart message from Patient: On Friday morning, January 02 I was in the ER at [facility] for the second time in less than two weeks due to being awakened by very sharp pain in my mid right side. After a CAT and Ultrasound the first visit, the culprit seemed to be my gallbladder. A surgeon viewed the ultrasound, did not believe surgerywas indicated, but I was instructed to return to ER should the pain happen again. Thus the second visit. Different doctor who seemed spectacle about gallbladder, but suggested that I should see a surgeon for an test that measures the gallbladder function. The DrLakhwinder named on my discharge papers is Dr.Anthony Willson [facility]. Do I need a referral from you for this appointment? Second ER doctor mentioned possible bowel gas. An observation: Several years ago a colonoscopy had to be stopped due to the presence of a twisted or thickened area of bowel that doctor didn't want to risk puncturing if test proceeded. Patient was seen in [facility] ER on 12/16/2023 for right upper quadrant pain. Though patient says today this was not in the RUQ it was in the right mid/lower abdomen. Per ER report the PE documents the pain as being RUQ. This recent episode was again during the night and awoken him from sleep with pain which he says was in the right mid lateral abdomen. No radiation from the back or into the groin. No nausea, vomiting or cold sweats with either of the two episodes. No diarrhea, hematochezia or melena. He can not say if he had eaten a meal at dinner that may of had fat in it. But says it was a meal like ones he has had in the past. In the ER report from 01/03/2024 there is no PE completed. In the medical decisionmaking section, it says patient with right sided pain with right flank pain. CBC showed normal WBC at 8.8 and Hg of 13.5. plt were 186. CT negative or any acute findings. LFT's and lipase were normal. UA was negative for UTI or blood. Patient has not had any abdominal surgeries. The patient is being seen by me today at the request of Dr. Jose Fam MD for my opinion andadvice regarding Right upper quadrant abdominal pain Gall bladder stones. SIGNIFICANT MEDICAL PROBLEMS: PAST MEDICAL HISTORY 09/08/2015: 1st degree AV block 08/09/2009: AC (acromioclavicular) joint arthritis 04/03/2015: Acquired hypothyroidism 03/08/2012: Actinic skin damage 07/13/2008: Acute, but ill-defined, cerebrovascular disease 03/21/2022: Advance directive discussed with patient Comment: Discussed 02/202207/24/2015: Anemia 10/30/2011: Arthritis of knee 05/28/2019: At risk for falls 02/03/2014: Atypical nevus of thoracic region 04/24/2014: Balance problem Comment: Due to CVA in 2008 and right leg weakness 12/27/2021: Bilateral carotid artery stenosis Comment: US 12/2021: R 40-60% L 20-40% 08/01/2014: Bilateral leg edema 09/07/2014: Bladder cancer (HCC) 03/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 07/13/2008: Cerebral artery occlusion with cerebral infarction (HCC) 03/08/2012: Phelan angioma 08/01/2014: Diastasis recti No date: Diverticulosis of colon (without mention of hemorrhage) 09/21/2012: Dupuytren's contracture of both hands 04/16/2010: Elevated fasting blood sugar No date: Essential hypertension Comment: Essential hypertension 06/02/2015: Familial peripheral neuropathy 04/29/2016: Gait difficulty 04/03/2015: Gastroesophageal reflux disease without esophagitis 03/20/2016: Greater trochanteric bursitis 09/04/2012: 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04/09/2023: History of bladder cancer 02/2008: History of CVA (cerebrovascular accident) Comment: residual weakness in right leg 03/29/2008: History of giant cell arteritis No date: Hx of long-term use of blood thinners 03/08/2012: Irritated//Inflamed Seborrheic Keratosis 03/21/2022: Living will on file Comment: DPA: Sudarshan () 01/13/2014: Low back pain 04/16/2022: Low serum vitamin B12 08/02/2014: Lower urinary tract symptoms (LUTS) 01/13/2014: Lumbar stenosis with neurogenic claudication Comment: Had seen Dr. Starr 04/12/2022: Memory difficulties Comment: 04/12/22 MMSE: 29/30 09/22/2015: Mild pulmonary hypertension (HCC) Comment: sen Dr. Hamilton, not able to tolerate CPAP for JESSY. 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 12/19/2015: Pain in both hands 05/08/2010: Postlaminectomy syndrome 09/08/2015: Premature supraventricular beats 08/06/2022: Pulmonary nodule Comment: Noted on CT at [facility] on 08/01/22. Repeat in 3-6 months. Multiple nodules up to 7mm in size. 04/25/2014: Right leg weakness 06/08/2009: Sebaceous cyst 06/02/2015: Stasis dermatitis of both legs 07/17/2020: SVT (supraventricular tachycardia) (HCC) 07/17/2020: SVT (supraventricular tachycardia) (HCC) 05/05/2009: Thoracic or lumbosacral neuritis or radiculitis, unspecified 11/26/2017: Thumb pain, left 07/26/2017: Tinnitus 10/12/2008: Unspecified arthropathy, lower leg 06/02/2015: Venous insufficiency (chronic) (peripheral) 07/23/2010: Vertigo following cerebrovascular accident 04/09/2013: Viral warts, unspecified 09/04/2012: Xerosis cutis OPERATIONS: PAST SURGICAL HISTORY 08/2015: 2D ECHO (EXEP) Comment: EF=64%, 1+ TR and mild Pulm HTN 02/06/2011: COLONOSCOPY FLX DX W/COLLJ SPEC WHEN PFRMD Comment: Colonoscopy, repeat 10 yrs 08/31/14 : CYSTO W/REMOVAL OF LESIONS MINOR <0.5CM 12/14/2018: ESOPHAGOGASTRODUODENOSCOPY TRANSORAL DIAGNOSTIC Comment: EGD 09/08/2018: FASCT PALM W/WO Z-PLASTY TISSUE REARGMT/SKN GRFT; Left Comment: Left 3rd finger fascietomy with skin graft, left 4th finger facietomy with local soft tissue rearrangements and trigger finger release 2010: L3-4 and L4-5 laminoforaminotomy 03-30-08: LIGATION/BIOPSY TEMPORAL ARTERY Comment: RIGHT, negitive. 05/05/2015: LUMBAR SPINE FUSION COMBINED 04/20/08: MAL LESION FACE,EAR,EYEL 1.1-2CM Comment: Exc. right lateral islam skin lesion and right forehead 2000: OPEN REPAIR OF ROTATOR CUFF ACUTE Comment: Rotator cuff repair left No date: PAST SURGICAL HISTORY OF Comment: ingrown toe nail removed 1965: PAST SURGICAL HISTORY OF Comment: cyst removed from bottom of spine 08/02/2010: SHOULDER ARTHROSCOPY/SURGERY Comment: Open Rt subacromial decompression 04/10/2015: STRESS TEST Comment: WNL 07/09/2018: STRESS TEST NUCLEAR Comment: negative CURRENT MEDICATIONS: Current Outpatient Medications Medication Sig Dispense Refill nystatin (NYSTOP) powder Apply 1 application to affected area three times a day. tamsulosin (FLOMAX) 0.4 mg TAKE 1 CAPSULE ONE TIME DAILY 30 MINUTES AFTER THE SAME MEAL EACH DAY 90capsule 3 DULoxetine (CYMBALTA) 30 mg capsule Take 1 capsule by mouth once daily. 90 capsule 1 lisinopril 2.5 mg tablet Take 1 tablet by mouth once daily. 90 tablet 1 pravastatin (PRAVACHOL) 20 mg tablet Take 1 tablet by mouth once daily. 90 tablet 1 levothyroxine (LEVOXYL) 125 mcg tablet Take one tab daily Fri-Fri and two on Friday and FridayTake on empty stomach. For thyroid. 108 tablet 1 finasteride (PROSCAR) 5 mg tablet Take 1 tablet by mouth once daily. 90 tablet 2 gabapentin (NEURONTIN) 600 mg tablet Take 2 tablets by mouth three times a day for 10 days. 60 tablet 0 traZODone (DESYREL) 50 mg tablet Take 1 tablet by mouth daily at bedtime. 90 tablet 1 Fluorouracil 5 % cream potassium chloride ER (KLOR-CON M20) 20 mEq tablet Take 1 tablet by mouth once daily. 90 tablet 3 cyanocobalamin (VITAMIN B-12) 1,000 mcg tab Take 1 tablet by mouth once daily. 90 tablet 3 furosemide (LASIX) 20 mg tablet Take 1 tablet by mouth once daily. 90 tablet 1 clopidogrel (PLAVIX) 75 mg tablet Take 1 tablet by mouth once daily. 90 tablet 1 vit C/E/Zn/coppr/lutein/zeaxan (PRESERVISION AREDS-2 ORAL) Take by mouth two times a day. ZINC ORAL Take by mouth once daily. COMPOUNDED PRESCRIPTION rollator walker #: one Dx: I63.50, Z86.73, R26.89, G60.9, M62.81 and M48.06 1 Device 0 multivitamins w-minerals/lut(CENTRUM SILVER TAB) Take by mouth. 0 No current facility-administered medications for this visit. ALLERGIES: Ditropan [Oxybutynin] and Prednisone PERSONAL HISTORY: Social History Tobacco Use Smoking status: Never Passive exposure: Never Smokeless tobacco: Never Vaping Use Vaping Use: Never used Substance Use Topics Alcohol use: Not Currently Drug use: Never FAMILY HISTORY: FAMILY HISTORY Problem Relation Age of Onset Hypertension Mother Stroke Mother other (headaches) Mother Ischemic Heart Disease Father Heart Brother REVIEW OF SYMPTOMS: The review of systems data was entered by the nurse and reviewed by co Nursing Notes: Jaye Guevara MA 01/26/2024 1:42 PM Signed REVIEW OF SYSTEMS: General: The patient denies fatigue, denies weight loss, denies weight gain, denies feeling hot, and denies feelings of cold. Eyes: The patient denies glaucoma, denies eye injury/surgery, wears glasses or contacts. Ear/Nose/Throat: The patient denies allergies, denies hayfever, denies ear infections, and denies bloody noses. Cardiovascular: The patient denies chest pain, denies heart disease, NOTES high blood pressure,denies cardiac stent, denies prior heart attack, NOTES irregular heart beat, NOTES high cholesterol, NOTES poor circulation, denies heart failure, other cardiac issues, NOTES claudication, denies cold feet, denies peripheral arterial stent. Respiratory: The patient denies tuberculosis, denies pneumonia, NOTES frequent cough, denies pulmonary embolism, denies shortness of breath, and denies coughing up blood. Gastrointestinal: The patient NOTES difficulty swallowing, NOTES acid reflux, denies ulcers, deniesvomiting, denies jaundice/hepatitis, NOTES gallbladder problems, denies black or tarry stools, denies hemorrhoids, denies bleeding from rectum, denies diverticulitis, denies constipation, denies diarrhea, denies loss of stool control, and denies hernias. Kidney/Bladder: The patient denies kidney stones, denies urine infections, and denies bloody urine. Skin: The patient NOTES a history of skin cancer, denies bleeding/changing moles, and NOTES a history of skin rash. Neurologic: The patient denies a history of epilepsy/convulsions, denies headaches, denies head/spinal injuries, and NOTES stroke/TIA. Psychiatric: The patient denies psychiatric medications, denies depression, and denies voices, denies substance abuse. Endocrine: The patient NOTES thyroid disorders, denies diabetes, and denies hormonal problems. Hematologic: The patient denies a history of bruising, NOTES bleeding, and denies anemia, denies blood clots. Infections: The patient denies a history of measles and mumps, denies rheumatic fever, and denies sexually transmitted diseases. Musculoskeletal: The patient denies back pain/injury, NOTES back problems, denies sciatica, denies knee/foot trouble, denies arthritis, or denies gout. When was patient's last Mammogram screening? N/A Last Colonoscopy: N/A Jaye Guevara MA PHYSICAL EXAMINATION: General: The patient is 83 year old male, well nourished, well hydrated in no acute distress. The patient is oriented to time, place, and person. VITALS: Blood pressure 132/72, pulse 90, temperature 36.7 C (98 F), weight 129.3 kg (285 lb), SpO2 95%. Body mass index is 39.75 kg/m . HEENT: Normal cephalic, ataumatic, pupils are equally round, sclera are anicteric, mucous membranesare moist, oropharynx is clear. Neck has no masses, asymmetry or lymphadenopathy. Thyroid is unremarkable. Respiratory: Clear to auscultation and percussion. Normal respiratory excursion and pattern. Cardiac: Examination is regular rate and rhythm. Abdominal exam: Normoactive bowel sounds, Soft, non tender in the right upper quadrant negative Bella's sign, with no palpable masses. No hepatosplenomegaly. No palpable hernias. Rectal exam: exam deferred Extremities: no clubbing, cyanosis or edema. No adenopathy. Other: LABORATORY VALUES: As Noted RADIOLOGIC STUDIES: As Noted Above Assessment IMPRESSION: Right upper quadrant abdominal pain Gall bladder stones PLAN: My plan is to perform a laparoscopic cholecystectomy with intraoperative choleangiogram. The planned surgical procedure was discussed extensively with the patient. The risks, benefits, anticipated outcomes and possible complications were mentioned. My staff has also explained the procedure in understandable terms and the patient was given the option to take printed material concerning the planned procedure. The patient had the opportunity to ask questions concerning the planned procedure.The patient freely consents to the planned procedure. Planned Procedure: LAPAROSCOPIC CHOLECYSTECTOMY WITHOUT INTRAOPERATIVE CHOLEANGIOGRAM - [id number] Planned antibiotic: Ancef 3gm IVPB addiction treatment counselor to [place] SCDs needed - Yes Manager Mortgage Needed - Yes Diagnoses: (R10.11) Right upper quadrant abdominal pain (K80.20) Gall bladder stones My findings have been communicated to Dr. Jose Fam MD via shared medical record. This notewill be forwarded to Dr. Jose Fam MD. Aneg Verduzco III, MD documented [facility] Nurse Note* Jaye Guevara MA - 01/26/2024 1:37 PM EDT REVIEW OF SYSTEMS: General: The patient denies fatigue, denies weight loss, denies weight gain, denies feeling hot, and denies feelings of cold. Eyes: The patient denies glaucoma, denies eye injury/surgery, wears glasses or contacts. Ear/Nose/Throat: The patient denies allergies, denies hayfever, denies ear infections, and denies bloody noses. Cardiovascular: The patient denies chest pain, denies heart disease, NOTES high blood pressure,denies cardiac stent, denies prior heart attack, NOTES irregular heart beat, NOTES high cholesterol, NOTES poor circulation, denies heart failure, other cardiac issues, NOTES claudication, denies cold feet, denies peripheral arterial stent. Respiratory: The patient denies tuberculosis, denies pneumonia, NOTES frequent cough, denies pulmonary embolism, denies shortness of breath, and denies coughing up blood. Gastrointestinal: The patient NOTES difficulty swallowing, NOTES acid reflux, denies ulcers, deniesvomiting, denies jaundice/hepatitis, NOTES gallbladder problems, denies black or tarry stools, denies hemorrhoids, denies bleeding from rectum, denies diverticulitis, denies constipation, denies diarrhea, denies loss of stool control, and denies hernias. Kidney/Bladder: The patient denies kidney stones, denies urine infections, and denies bloody urine. Skin: The patient NOTES a history of skin cancer, denies bleeding/changing moles, and NOTES a history of skin rash. Neurologic: The patient denies a history of epilepsy/convulsions, denies headaches, denies head/spinal injuries, and NOTES stroke/TIA. Psychiatric: The patient denies psychiatric medications, denies depression, and denies voices, denies substance abuse. Endocrine: The patient NOTES thyroid disorders, denies diabetes, and denies hormonal problems. Hematologic: The patient denies a history of bruising, NOTES bleeding, and denies anemia, denies blood clots. Infections: The patient denies a history of measles and mumps, denies rheumatic fever, and denies sexually transmitted diseases. Musculoskeletal: The patient denies back pain/injury, NOTES back problems, denies sciatica, denies knee/foot trouble, denies arthritis, or denies gout. When was patient's last Mammogram screening? N/A Last Colonoscopy: N/A Jaye Guevara MA [facility]08-[facility] Nurse Note* Jaye Guevara MA - 01/26/2024 1:37 PM EDT REVIEW OF SYSTEMS: General: The patient denies fatigue, denies weight loss, denies weight gain, denies feeling hot, and denies feelings of cold. Eyes: The patient denies glaucoma, denies eye injury/surgery, wears glasses or contacts. Ear/Nose/Throat: The patient denies allergies, denies hayfever, denies ear infections, and denies bloody noses. Cardiovascular: The patient denies chest pain, denies heart disease, NOTES high blood pressure,denies cardiac stent, denies prior heart attack, NOTES irregular heart beat, NOTES high cholesterol, NOTES poor circulation, denies heart failure, other cardiac issues, NOTES claudication, denies cold feet, denies peripheral arterial stent. Respiratory: The patient denies tuberculosis, denies pneumonia, NOTES frequent cough, denies pulmonary embolism, denies shortness of breath, and denies coughing up blood. Gastrointestinal: The patient NOTES difficulty swallowing, NOTES acid reflux, denies ulcers, deniesvomiting, denies jaundice/hepatitis, NOTES gallbladder problems, denies black or tarry stools, denies hemorrhoids, denies bleeding from rectum, denies diverticulitis, denies constipation, denies diarrhea, denies loss of stool control, and denies hernias. Kidney/Bladder: The patient denies kidney stones, denies urine infections, and denies bloody urine. Skin: The patient NOTES a history of skin cancer, denies bleeding/changing moles, and NOTES a history of skin rash. Neurologic: The patient denies a history of epilepsy/convulsions, denies headaches, denies head/spinal injuries, and NOTES stroke/TIA. Psychiatric: The patient denies psychiatric medications, denies depression, and denies voices, denies substance abuse. Endocrine: The patient NOTES thyroid disorders, denies diabetes, and denies hormonal problems. Hematologic: The patient denies a history of bruising, NOTES bleeding, and denies anemia, denies blood clots. Infections: The patient denies a history of measles and mumps, denies rheumatic fever, and denies sexually transmitted diseases. Musculoskeletal: The patient denies back pain/injury, NOTES back problems, denies sciatica, denies knee/foot trouble, denies arthritis, or denies gout. When was patient's last Mammogram screening? N/A Last Colonoscopy: N/A Jaye Guevara MA [facility] History of Present illness Narrative* Valerie Deshpande APRN.[facility] - 01/20/2024 1:24 PM EDT Chief Complaint No chief complaint on file. BRIDGETTE Arango is a 83 year old male who presents here today for Above Complaints.. Patient seen week ago for rash follow up. Patient was instructed to cleanse area with dial soap, pat dry and increase nystatin powder from BID to TID. Patient presents today reporting rash has improved. Past medical history, appointments, medications, allergies reviewed. Previous Medical History PAST MEDICAL HISTORY Diagnosis Date 1st degree AV block 09/08/2015 AC (acromioclavicular) joint arthritis 08/09/2009 Acquired hypothyroidism 04/03/2015 Actinic skin damage 03/08/2012 Acute, but ill-defined, cerebrovascular disease 07/13/2008 Advance directive discussed with patient 03/21/2022 Discussed 02/2022 Anemia 07/24/2015 Arthritis of knee 10/30/2011 At risk for falls 05/28/2019 Atypical nevus of thoracic region 02/03/2014 Balance problem 04/24/2014 Due to CVA in 2008 and right leg weakness Bilateral carotid artery stenosis 12/27/2021 US 12/2021: R 40-60% L 20-40% Bilateral leg edema 08/01/2014 Bladder cancer (HCC) 09/07/2014 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 (HCC) 07/13/2008 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 Diastasis recti 08/01/2014 Diverticulosis of colon (without mention of hemorrhage) Dupuytren's contracture of both hands 09/21/2012 Elevated fasting blood sugar 04/16/2010 Essential hypertension Essential hypertension Familial peripheral neuropathy 06/02/2015 Gait difficulty 04/29/2016 Gastroesophageal reflux disease without esophagitis 04/03/2015 Greater trochanteric bursitis 03/20/2016 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09/04/2012 History of bladder cancer 04/09/2023 History of CVA (cerebrovascular accident) 02/2008 residual weakness in right leg History of giant cell arteritis 03/29/2008 Hx of intermediate frame tender use of blood thinners Irritated//Inflamed Seborrheic Keratosis 03/08/2012 Living will on file 03/21/2022 DPA: Sudarshan () Low back pain 01/13/2014 Low serum vitamin B12 04/16/2022 Lower urinary tract symptoms (LUTS) 08/02/2014 Lumbar stenosis with neurogenic claudication 01/13/[address] Starr Memory difficulties 04/12/2022 04/12/22 MMSE: 29/30 Mild pulmonary hypertension (HCC) 09/22/[address] Hamilton, not able to tolerate CPAP for JESSY. 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 Pain in both hands 12/19/2015 Postlaminectomy syndrome 05/08/2010 Premature supraventricular beats 09/08/2015 Pulmonary nodule 08/06/[address] at [facility] on 08/01/22. Repeat in 3-6 months. Multiple nodules up to 7mm in size. Right leg weakness 04/25/2014 Sebaceous cyst 06/08/2009 Stasis dermatitis of both legs 06/02/2015 SVT (supraventricular tachycardia) (HCC) 07/17/2020 SVT (supraventricular tachycardia) (HCC) 07/17/2020 Thoracic or lumbosacral neuritis or radiculitis, unspecified 05/05/2009 Thumb pain, left 11/26/2017 Tinnitus 07/26/2017 Unspecified arthropathy, lower leg 10/12/2008 Venous insufficiency (chronic) (peripheral) 06/02/2015 Vertigo following cerebrovascular accident 07/23/2010 Viral warts, unspecified 04/09/2013 Xerosis cutis 09/04/2012 Previous Surgical History PAST SURGICAL HISTORY Procedure Laterality Date 2D ECHO (EXEP) 08/2015 EF=64%, 1+ TR and mild Pulm HTN COLONOSCOPY FLX DX W/COLLJ SPEC WHEN PFRMD 02/06/2011 Colonoscopy, repeat 10 yrs CYSTO W/REMOVAL OF LESIONS MINOR <0.5CM 08/31/14 ESOPHAGOGASTRODUODENOSCOPY TRANSORAL DIAGNOSTIC 12/14/2018 EGD FASCT PALM W/WO Z-PLASTY TISSUE REARGMT/SKN GRFT Left 09/08/2018 Left 3rd finger fascietomy with skin graft, left 4th finger facietomy with local soft tissue rearrangements and trigger finger release L3-4 and L4-5 laminoforaminotomy 2009 LIGATION/BIOPSY TEMPORAL ARTERY 03-30-08 RIGHT, negitive. LUMBAR SPINE FUSION COMBINED 05/05/2015 MAL LESION FACE,EAR,EYEL 1.1-2CM 04/20/08 Exc. right lateral islam skin lesion and right forehead OPEN REPAIR OF ROTATOR CUFF ACUTE 2000 Rotator cuff repair left PAST SURGICAL HISTORY OF ingrown toe nail removed PAST SURGICAL HISTORY OF 1965 cyst removed from bottom of spine SHOULDER ARTHROSCOPY/SURGERY 08/02/2010 Open Rt subacromial decompression STRESS TEST 04/10/2015 WNL STRESS TEST NUCLEAR 07/09/2018 negative Family History FAMILY HISTORY Problem Relation Age of Onset Hypertension Mother Stroke Mother other (headaches) Mother Ischemic Heart Disease Father Heart Brother Patient Allergies ALLERGIES Allergen Reactions Ditropan [Oxybutyni* Other: See Comments Nausea, brain fog, increased weakness, decreased appetite, and increased restless leg symptoms. Prednisone Other: See Comments Had GI problems, headaches. Patient states he was on high dose for almost 90 days Current Medications Current Outpatient Medications on File Prior to Visit Medication Sig nystatin (NYSTOP) powder Apply 1 application to affected area three times a day. tamsulosin (FLOMAX) 0.4 mg TAKE 1 CAPSULE ONE TIME DAILY 30 MINUTES AFTER THE SAME MEAL EACH DAY DULoxetine (CYMBALTA) 30 mg capsule Take 1 capsule by mouth once daily. lisinopril 2.5 mg tablet Take 1 tablet by mouth once daily. pravastatin (PRAVACHOL) 20 mg tablet Take 1 tablet by mouth once daily. levothyroxine (LEVOXYL) 125 mcg tablet Take one tab daily Fri-Fri and two on Friday and FridayTake on empty stomach. For thyroid. finasteride (PROSCAR) 5 mg tablet Take 1 tablet by mouth once daily. gabapentin (NEURONTIN) 600 mg tablet Take 2 tablets by mouth three times a day for 10 days. traZODone (DESYREL) 50 mg tablet Take 1 tablet by mouth daily at bedtime. Fluorouracil 5 % cream potassium chloride ER (KLOR-CON M20) 20 mEq tablet Take 1 tablet by mouth once daily. cyanocobalamin (VITAMIN B-12) 1,000 mcg tab Take 1 tablet by mouth once daily. furosemide (LASIX) 20 mg tablet Take 1 tablet by mouth once daily. clopidogrel (PLAVIX) 75 mg tablet Take 1 tablet by mouth once daily. vit C/E/Zn/coppr/lutein/zeaxan (PRESERVISION AREDS-2 ORAL) Take by mouth two times a day. ZINC ORAL Take by mouth once daily. COMPOUNDED PRESCRIPTION rollator walker #: one Dx: I63.50, Z86.73, R26.89, G60.9, M62.81 and M48.06 multivitamins w-minerals/lut(CENTRUM SILVER TAB) Take by mouth. No current facility-administered medications on file prior to visit. Social History Social History Tobacco Use Smoking status: Never Passive exposure: Never Smokeless tobacco: Never Vaping Use Vaping Use: Never used Substance Use Topics Alcohol use: Not Currently Drug use: Never Review of Symptoms REVIEW OF SYSTEMS SEE HPI EXAM: BP 143/71 Pulse 66 Resp 16 General Appearance: Well appearing, alert, in no acute distress, well-hydrated, well nourished.. Skin: Positives: Rash: Skin under right breast still slightly red but greatly improved from previous examination. No swelling, drainage, open areas noted. Health Maintenance List RSV Vaccine(1 - 1-dose 60+ series) due on 03/23/2024 Shingrix Vaccine(1 of 2) due on 04/09/2024 Covid-19 Vaccine( - 2022- season) due on 10/08/2024 Influenza Vaccine(1) due on 02/22/2024 Depression Screening due on 10/08/2024 Anxiety Screening due on 10/08/2024 DTaP,Tdap,Td Vaccine(2 - Td or Tdap) due on 02/01/2025 Diabetes Screening due on 09/28/2026 Advance Directive Discussion Completed Pneumococcal Vaccine: 65+ Completed HPV Vaccine Aged Out ASSESSMENT/PLAN: 1. Yeast infection of the skin - ICD9: 112.3, ICD10: B37.2 -Continue use of nystatin until rash completely cleared. - Patient instructed to follow up if rash recurs or if ope areas develop. Valerie Deshpande APRN.[employer] DES[employer] ENGINEER [facility] Telephone encounter Note * Telephone Encounter - Selene Jones RN - 01/17/2024 9:40 AM EDT Pts called and is notified of providers results and instructions. She voices understanding andstates they will keep the appointment. Selene Jones RN [facility]07-[facility] Miscellaneous Notes* Telephone Encounter - Selene Jones RN - 01/17/2024 9:40 AM EDT Pts called and is notified of providers results and instructions. She voices understanding andstates they will keep the appointment. Selene Jones RN * Telephone Encounter - Jose Fam MD - 01/16/2024 9:15 PM EDT Let patient know the HIDA scan of the gal bladder was ok. Would advise him to still keep his appt with Dr. Verduzco. documented in this encounterPe[facility]07-26-2024 Telephone encounter Note * Telephone Encounter - Jose Fam MD - 01/16/2024 9:15 PM EDT Let patient know the HIDA scan of the gal bladder was ok. Would advise him to still keep his appt with Dr. Verduzco. [facility] History of Present illness Narrative* Rosario Paz, RT(R) - 01/16/2024 12:30 PM EDT RADIOLOGY SERVICE PROGRESS NOTE SERVICE DATE: 01/16/2024 SERVICE TIME: 12:35 PM PATIENT IDENTITY VERIFICATION COMPLETED USING TWO (2) STANDARD IDENTIFIERS: Name and Date of confirmed by patient verbally FALL SCREENING: Has the patient had 2 falls in the last year or 1 fall with injury or currently using an Ambulatory Assistive Device (Walker, Cane, Wheelchair, Crutches, etc.)? Yes, Patient High Riskfor Falls What interventions were put in place to prevent falls during this visit? Instructed Patient to Callfor Help if Needed, Offered Assistance with Transfers/Clothing, Instructed Patient to Remain Seated(Not on Exam Table) Until Exam, Increased Observations by Caregivers, and Escorted to/from Restroom PATIENT GENDER DATA: .male ALLERGIES: Reviewed and unchanged MEDICATIONS REVIEWED: No PATIENT RELEVANT IMPLANT DATA REVIEWED: Not Applicable PATIENT PRESENTS WITH AN IMPLANTABLE OR ATTACHED OYSTER CULTURIST: n/a CREATININE: Creatinine Date Value Ref Range Status 09/29/2023 0.86 0.73 - 1.22 mg/dL Final 03/26/2023 0.94 0.73 - 1.22 mg/dL Final 09/23/2022 0.76 0.73 - 1.22 mg/dL Final Estimated Glomerular Filtration Rate Date Value Ref Range Status 09/29/2023 86 >=60 mL/min/1.73m Final Comment: Estimated Glomerular Filtration Rate (eGFR) is calculated using the 2020 CKD-EPI creatinine equation. This equation utilizes serum creatinine, sex, and age as parameters. The creatinine assay has traceable calibration to isotope dilution- mass spectrometry. Refer to KDIGO guidelines for clinical interpretation. In patients with unstable renal function, e.g. those with acute kidney injury, the eGFRmay not accurately reflect actual GFR. eGFR- Date Value Ref Range Status 03/13/2021 >60 Final P.O.C.T. RESULTS: N/A January 16, [address] PERFORMED: No IV SITE: Ambulatory: A peripheral IV was started in the Right antecubital site with a Angio cath: 24 gauge. POST EXAM PIV STATUS: Discontinued PROCEDURE TYPE: NM INJECT: Hepatobiliary with Gallbladder EF. 5.2 mCi Tc99m CHOLETEC. CCK 2.6 micrograms intravenous at 14:14. ADMINISTRATION TIME: 12:50 PATIENT DISCHARGED TO: Ambulatory patient, left NM department area. A Diagnostic radioactive procedure has taken place, with no further precautions necessary other than routine body substance precautions. More information regarding radiation safety can be found usingthis link: [email or web address] SIGNATURE: RT Shay(R) PATIENT NAME: Regan Arango DATE: January 16, 2024 TIME: 3:05 PM PAGER/CONTACT #: documented in this encounterPe[facility]07-26-2024 [facility] Instructions* Patient Instructions* Valerie Deshpande APRN.CNP - 01/13/2024 1:49 PM EDT Interdry dressing or silver alginate absorbable dressing documented in this encounterPe[facility]07-23-2024 Note[facility]07[facility] History of Present illness Narrative* Valerie Deshpande APRN.CNP - 01/13/2024 1:30 PM EDT Chief Complaint Patient presents with: Rash HPI Regan Arango is a 83 year old male who presents here today for Above Complaints.. Patient presents for rash follow up. Patient initially seen on 12/30 and give bacitracin and nystatin. Culture showed skin edison and no acute bacterial infection, bacitracin stopped at that time. Patient reports left side improving but right is not getting better. Concern for infection voiced by patient and . Past medical history, appointments, medications, allergies reviewed. Previous Medical History PAST MEDICAL HISTORY Diagnosis Date 1st degree AV block 09/08/2015 AC (acromioclavicular) joint arthritis 08/09/2009 Acquired hypothyroidism 04/03/2015 Actinic skin damage 03/08/2012 Acute, but ill-defined, cerebrovascular disease 07/13/2008 Advance directive discussed with patient 03/21/2022 Discussed 02/2022 Anemia 07/24/2015 Arthritis of knee 10/30/2011 At risk for falls 05/28/2019 Atypical nevus of thoracic region 02/03/2014 Balance problem 04/24/2014 Due to CVA in 2008 and right leg weakness Bilateral carotid artery stenosis 12/27/2021 US 12/2021: R 40-60% L 20-40% Bilateral leg edema 08/01/2014 Bladder cancer (HCC) 09/07/2014 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 (HCC) 07/13/2008 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 Diastasis recti 08/01/2014 Diverticulosis of colon (without mention of hemorrhage) Dupuytren's contracture of both hands 09/21/2012 Elevated fasting blood sugar 04/16/2010 Essential hypertension Essential hypertension Familial peripheral neuropathy 06/02/2015 Gait difficulty 04/29/2016 Gastroesophageal reflux disease without esophagitis 04/03/2015 Greater trochanteric bursitis 03/20/2016 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09/04/2012 History of bladder cancer 04/09/2023 History of CVA (cerebrovascular accident) 02/2008 residual weakness in right leg History of giant cell arteritis 03/29/2008 Hx of intermediate frame tender use of blood thinners Irritated//Inflamed Seborrheic Keratosis 03/08/2012 Living will on file 03/21/2022 DPA: Sudarshan () Low back pain 01/13/2014 Low serum vitamin B12 04/16/2022 Lower urinary tract symptoms (LUTS) 08/02/2014 Lumbar stenosis with neurogenic claudication 01/13/[address] Starr Memory difficulties 04/12/2022 04/12/22 MMSE: 29/30 Mild pulmonary hypertension (HCC) 09/22/[address] Hamilton, not able to tolerate CPAP for JESSY. 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 Pain in both hands 12/19/2015 Postlaminectomy syndrome 05/08/2010 Premature supraventricular beats 09/08/2015 Pulmonary nodule 08/06/[address] at [facility] on 08/01/22. Repeat in 3-6 months. Multiple nodules up to 7mm in size. Right leg weakness 04/25/2014 Sebaceous cyst 06/08/2009 Stasis dermatitis of both legs 06/02/2015 SVT (supraventricular tachycardia) (HCC) 07/17/2020 SVT (supraventricular tachycardia) (HCC) 07/17/2020 Thoracic or lumbosacral neuritis or radiculitis, unspecified 05/05/2009 Thumb pain, left 11/26/2017 Tinnitus 07/26/2017 Unspecified arthropathy, lower leg 10/12/2008 Venous insufficiency (chronic) (peripheral) 06/02/2015 Vertigo following cerebrovascular accident 07/23/2010 Viral warts, unspecified 04/09/2013 Xerosis cutis 09/04/2012 Previous Surgical History PAST SURGICAL HISTORY Procedure Laterality Date 2D ECHO (EXEP) 08/2015 EF=64%, 1+ TR and mild Pulm HTN COLONOSCOPY FLX DX W/COLLJ SPEC WHEN PFRMD 02/06/2011 Colonoscopy, repeat 10 yrs CYSTO W/REMOVAL OF LESIONS MINOR <0.5CM 08/31/14 ESOPHAGOGASTRODUODENOSCOPY TRANSORAL DIAGNOSTIC 12/14/2018 EGD FASCT PALM W/WO Z-PLASTY TISSUE REARGMT/SKN GRFT Left 09/08/2018 Left 3rd finger fascietomy with skin graft, left 4th finger facietomy with local soft tissue rearrangements and trigger finger release L3-4 and L4-5 laminoforaminotomy 2009 LIGATION/BIOPSY TEMPORAL ARTERY 03-30-08 RIGHT, negitive. LUMBAR SPINE FUSION COMBINED 05/05/2015 MAL LESION FACE,EAR,EYEL 1.1-2CM 04/20/08 Exc. right lateral islam skin lesion and right forehead OPEN REPAIR OF ROTATOR CUFF ACUTE 2000 Rotator cuff repair left PAST SURGICAL HISTORY OF ingrown toe nail removed PAST SURGICAL HISTORY OF 1965 cyst removed from bottom of spine SHOULDER ARTHROSCOPY/SURGERY 08/02/2010 Open Rt subacromial decompression STRESS TEST 04/10/2015 WNL STRESS TEST NUCLEAR 07/09/2018 negative Family History FAMILY HISTORY Problem Relation Age of Onset Hypertension Mother Stroke Mother other (headaches) Mother Ischemic Heart Disease Father Heart Brother Patient Allergies ALLERGIES Allergen Reactions Ditropan [Oxybutyni* Other: See Comments Nausea, brain fog, increased weakness, decreased appetite, and increased restless leg symptoms. Prednisone Other: See Comments Had GI problems, headaches. Patient states he was on high dose for almost 90 days Current Medications Current Outpatient Medications on File Prior to Visit Medication Sig tamsulosin (FLOMAX) 0.4 mg TAKE 1 CAPSULE ONE TIME DAILY 30 MINUTES AFTER THE SAME MEAL EACH DAY DULoxetine (CYMBALTA) 30 mg capsule Take 1 capsule by mouth once daily. lisinopril 2.5 mg tablet Take 1 tablet by mouth once daily. pravastatin (PRAVACHOL) 20 mg tablet Take 1 tablet by mouth once daily. levothyroxine (LEVOXYL) 125 mcg tablet Take one tab daily Fri-Fri and two on Friday and FridayTake on empty stomach. For thyroid. nystatin (NYSTOP) powder Apply 1 application to affected area two times a day. finasteride (PROSCAR) 5 mg tablet Take 1 tablet by mouth once daily. gabapentin (NEURONTIN) 600 mg tablet Take 2 tablets by mouth three times a day for 10 days. traZODone (DESYREL) 50 mg tablet Take 1 tablet by mouth daily at bedtime. Fluorouracil 5 % cream potassium chloride ER (KLOR-CON M20) 20 mEq tablet Take 1 tablet by mouth once daily. cyanocobalamin (VITAMIN B-12) 1,000 mcg tab Take 1 tablet by mouth once daily. furosemide (LASIX) 20 mg tablet Take 1 tablet by mouth once daily. clopidogrel (PLAVIX) 75 mg tablet Take 1 tablet by mouth once daily. vit C/E/Zn/coppr/lutein/zeaxan (PRESERVISION AREDS-2 ORAL) Take by mouth two times a day. ZINC ORAL Take by mouth once daily. COMPOUNDED PRESCRIPTION rollator walker #: one Dx: I63.50, Z86.73, R26.89, G60.9, M62.81 and M48.06 multivitamins w-minerals/lut(CENTRUM SILVER TAB) Take by mouth. No current facility-administered medications on file prior to visit. Social History Social History Tobacco Use Smoking status: Never Passive exposure: Never Smokeless tobacco: Never Vaping Use Vaping Use: Never used Substance Use Topics Alcohol use: Not Currently Drug use: Never Review of Symptoms REVIEW OF SYSTEMS SEE HPI EXAM: BP 125/73 Pulse 64 Resp 16 Wt 130.2 kg (287 lb) BMI 40.03 kg/m General Appearance: Well appearing, alert, in no acute distress, well-hydrated, well nourished.. Skin: Positives: Rash: Red raised moist rash to bilateral breast folds right worse than left. No warmth, heat, drainage noted. Health Maintenance List RSV Vaccine(1 - 1-dose 60+ series) due on 03/23/2024 Shingrix Vaccine(1 of 2) due on 04/09/2024 Covid-19 Vaccine( - season) due on 10/08/2024 Influenza Vaccine(1) due on 02/22/2024 DTaP,Tdap,Td Vaccine(2 - Td or Tdap) due on 02/01/2025 Diabetes Screening due on 09/28/2026 Advance Directive Discussion Completed Behavioral Health Screening Completed Pneumococcal Vaccine: 65+ Completed HPV Vaccine Aged Out ASSESSMENT/PLAN: 1. Yeast infection of the skin - ICD9: 112.3, ICD10: B37.2 -Continue Nystatin, increase from BID to TID -Change soap to plain dial to decrease irritation and worsening of rash - May use interdry to area to decrease moisture to area under right breast -Follow up in 1 week for re-evaluation Valerie Deshpande APRN.INTE[employer] DESIGN ENGINEER documented in this encounterPe[facility]07-[facility]24 History of Present illness Narrative* Jose Fam MD - 01/07/2024 1:00 PM EDT Chief Complaint Patient presents with: ED Follow-up HPI Regan Arango is a 83 year old male who presents here today for ER Follow Up.. As of today patient has not had any pain since the last episode on . Patient was seen in [facility] ER on 01/03/2024 for lower right side abdominal pain. Patient had a CT/US of gallbladder previously and surgeon indicated that he didn't need to have his gallbladder removed. Labs Normal. CT in ER was normal. Patient was instructed to follow up on Dr. Lee for further workup of his gallbladder if he is still concerned. Notes indicate that patient was having tenderness much lower than his gallbladder. Patient has not follow up with Dr. Lee yet. My chart message from Patient: On Friday, January 02 I was in the ER at [facility] for the second time in less than two weeks due to being awakened by very sharp pain in my mid right side. After a CAT and Ultrasound the first visit, the culprit seemed to be my gallbladder. A surgeon viewed the ultrasound, did not believe surgerywas indicated, but I was instructed to return to ER should the pain happen again. Thus the second visit. Different doctor who seemed spectacle about gallbladder, but suggested that I should see a surgeon for an test that measures the gallbladder function. The DrLakhwinder named on my discharge papers is Dr.Anthony Willson [facility]. Do I need a referral from you for this appointment? Second ER doctor mentioned possible bowel gas. An observation: Several years ago a colonoscopy had to be stopped due to the presence of a twisted or thickened area of bowel that doctor didn't want to risk puncturing if test proceeded. Patient was seen in [facility] ER on 12/16/2023 for right upper quadrant pain. Though patient says today this was not in the RUQ it was in the right mid/lower abdomen. Per ER report the PE documents the pain as being RUQ. This recent episode was again during the night and awoken him from sleep with pain which he says was in the right mid lateral abdomen. No radiation from the back or into the groin. No nausea, vomiting or cold sweats with either of the two episodes. No diarrhea, hematochezia or melena. He can not say if he had eaten a meal at dinner that may of had fat in it. But says it was a meal like ones he has had in the past. In the ER report from 01/03/2024 there is no PE completed. In the medical decisionmaking section, it says patient with right sided pain with right flank pain. CBC showed normal WBC at 8.8 and Hg of 13.5. plt were 186. CT negative or any acute findings. LFT's and lipase were normal. UA was negative for UTI or blood. Patient has not had any abdominal surgeries. Past medical history, appointments, medications, allergies reviewed. Previous Medical History PAST MEDICAL HISTORY Diagnosis Date 1st degree AV block 09/08/2015 AC (acromioclavicular) joint arthritis 08/09/2009 Acquired hypothyroidism 04/03/2015 Actinic skin damage 03/08/2012 Acute, but ill-defined, cerebrovascular disease 07/13/2008 Advance directive discussed with patient 03/21/2022 Discussed 02/2022 Anemia 07/24/2015 Arthritis of knee 10/30/2011 At risk for falls 05/28/2019 Atypical nevus of thoracic region 02/03/2014 Balance problem 04/24/2014 Due to CVA in 2008 and right leg weakness Bilateral carotid artery stenosis 12/27/2021 US 12/2021: R 40-60% L 20-40% Bilateral leg edema 08/01/2014 Bladder cancer (HCC) 09/07/2014 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 (HCC) 07/13/2008 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 Diastasis recti 08/01/2014 Diverticulosis of colon (without mention of hemorrhage) Dupuytren's contracture of both hands 09/21/2012 Elevated fasting blood sugar 04/16/2010 Essential hypertension Essential hypertension Familial peripheral neuropathy 06/02/2015 Gait difficulty 04/29/2016 Gastroesophageal reflux disease without esophagitis 04/03/2015 Greater trochanteric bursitis 03/20/2016 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09/04/2012 History of bladder cancer 04/09/2023 History of CVA (cerebrovascular accident) 02/2008 residual weakness in right leg History of giant cell arteritis 03/29/2008 Hx of intermediate frame tender use of blood thinners Irritated//Inflamed Seborrheic Keratosis 03/08/2012 Living will on file 03/21/2022 DPA: Sudarshan () Low back pain 01/13/2014 Low serum vitamin B12 04/16/2022 Lower urinary tract symptoms (LUTS) 08/02/2014 Lumbar stenosis with neurogenic claudication 01/13/[address] Starr Memory difficulties 04/12/2022 04/12/22 MMSE: 29/30 Mild pulmonary hypertension (HCC) 09/22/[address] Hamilton, not able to tolerate CPAP for JESSY. 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 Pain in both hands 12/19/2015 Postlaminectomy syndrome 05/08/2010 Premature supraventricular beats 09/08/2015 Pulmonary nodule 08/06/[address] at [facility] on 08/01/22. Repeat in 3-6 months. Multiple nodules up to 7mm in size. Right leg weakness 04/25/2014 Sebaceous cyst 06/08/2009 Stasis dermatitis of both legs 06/02/2015 SVT (supraventricular tachycardia) (HCC) 07/17/2020 SVT (supraventricular tachycardia) (HCC) 07/17/2020 Thoracic or lumbosacral neuritis or radiculitis, unspecified 05/05/2009 Thumb pain, left 11/26/2017 Tinnitus 07/26/2017 Unspecified arthropathy, lower leg 10/12/2008 Venous insufficiency (chronic) (peripheral) 06/02/2015 Vertigo following cerebrovascular accident 07/23/2010 Viral warts, unspecified 04/09/2013 Xerosis cutis 09/04/2012 Previous Surgical History PAST SURGICAL HISTORY Procedure Laterality Date 2D ECHO (EXEP) 08/2015 EF=64%, 1+ TR and mild Pulm HTN COLONOSCOPY FLX DX W/COLLJ SPEC WHEN PFRMD 02/06/2011 Colonoscopy, repeat 10 yrs CYSTO W/REMOVAL OF LESIONS MINOR <0.5CM 08/31/14 ESOPHAGOGASTRODUODENOSCOPY TRANSORAL DIAGNOSTIC 12/14/2018 EGD FASCT PALM W/WO Z-PLASTY TISSUE REARGMT/SKN GRFT Left 09/08/2018 Left 3rd finger fascietomy with skin graft, left 4th finger facietomy with local soft tissue rearrangements and trigger finger release L3-4 and L4-5 laminoforaminotomy 2009 LIGATION/BIOPSY TEMPORAL ARTERY 03-30-08 RIGHT, negitive. LUMBAR SPINE FUSION COMBINED 05/05/2015 MAL LESION FACE,EAR,EYEL 1.1-2CM 04/20/08 Exc. right lateral islam skin lesion and right forehead OPEN REPAIR OF ROTATOR CUFF ACUTE 2000 Rotator cuff repair left PAST SURGICAL HISTORY OF ingrown toe nail removed PAST SURGICAL HISTORY OF 1965 cyst removed from bottom of spine SHOULDER ARTHROSCOPY/SURGERY 08/02/2010 Open Rt subacromial decompression STRESS TEST 04/10/2015 WNL STRESS TEST NUCLEAR 07/09/2018 negative Family History FAMILY HISTORY Problem Relation Age of Onset Hypertension Mother Stroke Mother other (headaches) Mother Ischemic Heart Disease Father Heart Brother Patient Allergies ALLERGIES Allergen Reactions Ditropan [Oxybutyni* Other: See Comments Nausea, brain fog, increased weakness, decreased appetite, and increased restless leg symptoms. Prednisone Other: See Comments Had GI problems, headaches. Patient states he was on high dose for almost 90 days Current Medications Current Outpatient Medications on File Prior to Visit Medication Sig DULoxetine (CYMBALTA) 30 mg capsule Take 1 capsule by mouth once daily. lisinopril 2.5 mg tablet Take 1 tablet by mouth once daily. pravastatin (PRAVACHOL) 20 mg tablet Take 1 tablet by mouth once daily. levothyroxine (LEVOXYL) 125 mcg tablet Take one tab daily Fri-Fri and two on Friday and FridayTake on empty stomach. For thyroid. nystatin (NYSTOP) powder Apply 1 application to affected area two times a day. finasteride (PROSCAR) 5 mg tablet Take 1 tablet by mouth once daily. gabapentin (NEURONTIN) 600 mg tablet Take 2 tablets by mouth three times a day for 10 days. traZODone (DESYREL) 50 mg tablet Take 1 tablet by mouth daily at bedtime. tamsulosin (FLOMAX) 0.4 mg Take 1 capsule by mouth daily at bedtime. Fluorouracil 5 % cream potassium chloride ER (KLOR-CON M20) 20 mEq tablet Take 1 tablet by mouth once daily. cyanocobalamin (VITAMIN B-12) 1,000 mcg tab Take 1 tablet by mouth once daily. furosemide (LASIX) 20 mg tablet Take 1 tablet by mouth once daily. clopidogrel (PLAVIX) 75 mg tablet Take 1 tablet by mouth once daily. vit C/E/Zn/coppr/lutein/zeaxan (PRESERVISION AREDS-2 ORAL) Take by mouth two times a day. ZINC ORAL Take by mouth once daily. COMPOUNDED PRESCRIPTION rollator walker #: one Dx: I63.50, Z86.73, R26.89, G60.9, M62.81 and M48.06 multivitamins w-minerals/lut(CENTRUM SILVER TAB) Take by mouth. No current facility-administered medications on file prior to visit. Social History Social History Tobacco Use Smoking status: Never Passive exposure: Never Smokeless tobacco: Never Vaping Use Vaping Use: Never used Substance Use Topics Alcohol use: Not Currently Drug use: Never Review of Symptoms REVIEW OF SYSTEMS See HPI EXAM: BP 122/78 (BP Site: Right Arm, BP Position: Sitting, BP Cuff Size: Large Adult) Pulse 82 Temp 37.5 C (99.5 F) Resp 18 Wt 128.4 kg (283 lb) SpO2 95% BMI 39.47 kg/m General Appearance: Well appearing, alert, in no acute distress, well-hydrated, well nourished.. Abdomen: Abdomen soft, non-distended. Has reproducible pain in the right upper abdomen but not right under the ribs. Lucila sign was neg. No guarding or rebound pain. Bowel sounds normal. No masses, organomegaly. Health Maintenance List RSV Vaccine(1 - 1-dose 60+ series) due on 03/23/2024 Shingrix Vaccine(1 of 2) due on 04/09/2024 Covid-19 Vaccine( - season) due on 10/08/2024 Influenza Vaccine(1) due on 02/22/2024 DTaP,Tdap,Td Vaccine(2 - Td or Tdap) due on 02/01/2025 Diabetes Screening due on 09/28/2026 Advance Directive Discussion Completed Behavioral Health Screening Completed Pneumococcal Vaccine: 65+ Completed HPV Vaccine Aged Out Data reviewed ER reports from 12/16/23 and 01/03/2024. A/P ASSESSMENT/PLAN: 1. Right upper quadrant abdominal pain - ICD9: 789.01, ICD10: R10.11 (primary diagnosis) - CONSULT TO GENERAL SURGERY: to be scheduled a week after the HIDA is completed. - NM HEPATOBILIARY W EF AND/OR RX 2. Gall bladder stones - ICD9: 574.20, ICD10: K80.20 - CONSULT TO GENERAL SURGERY - NM HEPATOBILIARY W EF AND/OR RX 3. Calculus of gallbladder without cholecystitis without obstruction - ICD9: 574.20, ICD10: K80.20 - NM HEPATOBILIARY W EF AND/OR RX F/u next routine. I spent a total of 40 minutes on the date of the service which included preparing to see the patient, [id number] patient care, completing clinical documentation, performing a medically appropriate examination, counseling and educating the patient/family/caregiver and ordering medications, tests, or procedures. Jose Fam MD [facility]24 [facility] Telephone encounter Note* Telephone Encounter - Julien Najera MA - 01/07/2024 7:48 AM EDT Patient called requesting the following refill. Requested Prescriptions Pending Prescriptions Disp Refills tamsulosin (FLOMAX) 0.4 mg [Pharmacy Med Name: TAMSULOSIN HYDROCHLORIDE 0.4 MG Capsule] 90 capsule 3 Sig: TAKE 1 CAPSULE ONE TIME DAILY 30 MINUTES AFTER THE SAME MEAL EACH DAY Patient last appointment: 09/09/2023 Patient Phone numbers: [phone] (home) Request is for script(s) to be escript to pharmacy. Julien Najera MA [facility]07-[facility]24 Miscellaneous Notes* Telephone Encounter - Julien Najera MA - 01/07/2024 7:48 AM EDT Patient called requesting the following refill. Requested Prescriptions Pending Prescriptions Disp Refills tamsulosin (FLOMAX) 0.4 mg [Pharmacy Med Name: TAMSULOSIN HYDROCHLORIDE 0.4 MG Capsule] 90 capsule 3 Sig: TAKE 1 CAPSULE ONE TIME DAILY 30 MINUTES AFTER THE SAME MEAL EACH DAY Patient last appointment: 09/09/2023 Patient Phone numbers: [phone] (home) Request is for script(s) to be escript to pharmacy. Julien Najera MA documented in this encounterPe[facility]07-12-2024 Telephone encounter Note * Telephone Encounter - Nick Spence MA - 01/02/2024 1:51 PM EDT Prescription Refill Information The patient has been identified by name and date of : Yes Caregiver verified no other encounters exist for this prescription request: Yes Caregiver confirmed with patient/requestor that no other refills are due, in the near future, with this provider at this time: Yes The last office visit in the department: 09/2023 Does the patient have a future office visit with this provider/department: Yes Requested Prescriptions Pending Prescriptions Disp Refills DULoxetine (CYMBALTA) 30 mg capsule 90 capsule 1 Sig: Take 1 capsule by mouth once daily. lisinopril 2.5 mg tablet 90 tablet 1 Sig: Take 1 tablet by mouth once daily. pravastatin (PRAVACHOL) 20 mg tablet 90 tablet 1 Sig: Take 1 tablet by mouth once daily. Nick Spence MA January 02, 2024 1:55 PM [facility] Miscellaneous Notes* Telephone Encounter - Nick Spence MA - 01/02/2024 1:51 PM EDT Prescription Refill Information The patient has been identified by name and date of : Yes Caregiver verified no other encounters exist for this prescription request: Yes Caregiver confirmed with patient/requestor that no other refills are due, in the near future, with this provider at this time: Yes The last office visit in the department: 09/2023 Does the patient have a future office visit with this provider/department: Yes Requested Prescriptions Pending Prescriptions Disp Refills DULoxetine (CYMBALTA) 30 mg capsule 90 capsule 1 Sig: Take 1 capsule by mouth once daily. lisinopril 2.5 mg tablet 90 tablet 1 Sig: Take 1 tablet by mouth once daily. pravastatin (PRAVACHOL) 20 mg tablet 90 tablet 1 Sig: Take 1 tablet by mouth once daily. Nick Spence MA January 02, 2024 1:55 PM documented in this encounterPe[facility]07-11-2024 Telephone encounter Note * Telephone Encounter - Pau Joel LPN - 01/01/2024 1:36 PM EDT Prescription Refill Information The patient has been identified by name and date of : Yes Caregiver verified no other encounters exist for this prescription request: Yes Caregiver confirmed with patient/requestor that no other refills are due, in the near future, with this provider at this time: Yes The last office visit in the department: 10/09/2023 Does the patient have a future office visit with this provider/department: Yes Requested Prescriptions Pending Prescriptions Disp Refills levothyroxine (LEVOXYL) 125 mcg tablet 108 tablet 1 Sig: Take one tab daily Fri-Fri and two on Friday and FridayTake on empty stomach. For thyroid. Pau Joel LPN January 01, 2024 1:37 PM [facility] Miscellaneous Notes* Telephone Encounter - Pau Joel LPN - 01/01/2024 1:36 PM EDT Prescription Refill Information The patient has been identified by name and date of : Yes Caregiver verified no other encounters exist for this prescription request: Yes Caregiver confirmed with patient/requestor that no other refills are due, in the near future, with this provider at this time: Yes The last office visit in the department: 10/09/2023 Does the patient have a future office visit with this provider/department: Yes Requested Prescriptions Pending Prescriptions Disp Refills levothyroxine (LEVOXYL) 125 mcg tablet 108 tablet 1 Sig: Take one tab daily Fri-Fri and two on Friday and FridayTake on empty stomach. For thyroid. Pau Joel LPN January 01, 2024 1:37 PM documented in this encounterPeoples [facility]07-10-2024 Telephone encounter Note * Telephone Encounter - Estella Galindo MA - 12/31/2023 3:27 PM EDT Pt was notified of the results. Pt verbalized understanding. Estella Galindo MA [facility]07-10-2024 Miscellaneous Notes* Telephone Encounter - Estella Galindo MA - 12/31/2023 3:27 PM EDT Pt was notified of the results. Pt verbalized understanding. Estella Galindo MA * Telephone Encounter - Mike Adler MD - 12/31/2023 11:47 AM EDT No significant change in sores. His has stopped using mupirocin but is using nystatin. Culture grew edison of low pathogenic potential. Resume mupirocin. Continue nystatin powder and reducing moisture and friction while ulcerations continue to heal. * Telephone Encounter - Noemy Washington RN - 12/31/2023 11:23 AM EDT Patient's calling and asking about results from wound culture. 12/27/2023 WOUND CULTURE Rare Roseomonas mucosa ! WOUND CULTURE Rare skin edison Smear Result No organisms seen Smear Result No Polymorphonuclear Leukocytes asking if nystatin takes care of this organism? Please review and advise, Neomy Washington RN documented in this encounterPe[facility]07-10-2024 Telephone encounter Note * Telephone Encounter - Mike Adler MD - 12/31/2023 11:47 AM EDT No significant change in sores. His has stopped using mupirocin but is using nystatin. Culture grew edison of low pathogenic potential. Resume mupirocin. Continue nystatin powder and reducing moisture and friction while ulcerations continue to heal. [facility] Telephone encounter Note* Telephone Encounter - Noemy Washington RN - 12/31/2023 11:23 AM EDT Patient's calling and asking about results from wound culture. 12/27/2023 WOUND CULTURE Rare Roseomonas mucosa ! WOUND CULTURE Rare skin edison Smear Result No organisms seen Smear Result No Polymorphonuclear Leukocytes asking if nystatin takes care of this organism? Please review and advise, Noemy Washington RN [facility]07-09-20[facility] Telephone encounter Note* Telephone Encounter - Rosario Almeida LPN - 12/30/2023 8:54 AM EDT Pt seen results on 12/28 @ 12:50 on his mychart. Rosario Almeida LPN [facility]07-09-2024 Miscellaneous Notes* Telephone Encounter - Rosario Almeida LPN - 12/30/2023 8:54 AM EDT Pt seen results on 12/28 @ 12:50 on his mychart. Rosario Almeida LPN * Telephone Encounter - Estella Galindo MA - 12/28/2023 3:08 PM EDT Left message for pt to call back. Estella Galindo MA * Telephone Encounter - Aisha Spence APRN.ZENOBIA - 12/28/2023 2:49 PM EDT For herpes and shingles. Please let him know. Still waiting on culture documented in this encounterPeoples [facility]07-07-2024 Telephone encounter Note * Telephone Encounter - Estella Galindo MA - 12/28/2023 3:08 PM EDT Left message for pt to call back. Estella Galindo MA [facility]07-07-2024 Telephone encounter Note* Telephone Encounter - Aisha Spence APRN.ZENOBIA - 12/28/2023 2:49 PM EDT For herpes and shingles. Please let him know. Still waiting on culture [facility] Work Phone: 1(859) 856-377207-06-2024 NoteM[facility]07-06-2024 History of Present illness Narrative* Mike Adler MD - 12/27/2023 10:01 AM EDT Patient presents with: Rash: Rash under bilateral breasts x 1 week HPI: Rash: Location: below both breasts Duration: present for 3-4 months, flared up the last week Pruritis: No Pain: meehan currently Change: new seeping and some blood after cleaning Bleeding/ulceration/blister/pustule: ulcers Treatment: cetaphil, nystatin powder, mupirocin ointment. MEDICATIONS: finasteride (PROSCAR) 5 mg tablet Take 1 tablet by mouth once daily. gabapentin (NEURONTIN) 600 mg tablet Take 2 tablets by mouth three times a day for 10 days. traZODone (DESYREL) 50 mg tablet Take 1 tablet by mouth daily at bedtime. tamsulosin (FLOMAX) 0.4 mg Take 1 capsule by mouth daily at bedtime. pravastatin (PRAVACHOL) 20 mg tablet Take 1 tablet by mouth once daily. lisinopril 2.5 mg tablet Take 1 tablet by mouth once daily. DULoxetine (CYMBALTA) 30 mg capsule Take 1 capsule by mouth once daily. Fluorouracil 5 % cream potassium chloride ER (KLOR-CON M20) 20 mEq tablet Take 1 tablet by mouth once daily. cyanocobalamin (VITAMIN B-12) 1,000 mcg tab Take 1 tablet by mouth once daily. levothyroxine (LEVOXYL) 125 mcg tablet Take one tab daily Fri-Fri and two on Friday and FridayTake on empty stomach. For thyroid. furosemide (LASIX) 20 mg tablet Take 1 tablet by mouth once daily. clopidogrel (PLAVIX) 75 mg tablet Take 1 tablet by mouth once daily. vit C/E/Zn/coppr/lutein/zeaxan (PRESERVISION AREDS-2 ORAL) Take by mouth two times a day. ZINC ORAL Take by mouth once daily. COMPOUNDED PRESCRIPTION rollator walker #: one Dx: I63.50, Z86.73, R26.89, G60.9, M62.81 and M48.06 multivitamins w-minerals/lut(CENTRUM SILVER TAB) Take by mouth. nystatin (NYSTOP) powder Apply 1 application to affected area two times a day. ALLERGIES: ALLERGIES Allergen Reactions Ditropan [Oxybutyni* Other: See Comments Nausea, brain fog, increased weakness, decreased appetite, and increased restless leg symptoms. Prednisone Other: See Comments Had GI problems, headaches. Patient states he was on high dose for almost 90 days VITALS: BP 132/80 Pulse 65 Temp 36.6 C (97.8 F) Resp 21 Wt 128.9 kg (284 lb 2.8 oz) SpO2 96% BMI 39.63 kg/m PHYSICAL EXAM: GEN: pleasant, no acute distress, alert SKIN: erythema and shallow red based ulceration at the crease below the left breast. No induration.The crease below the right breast has similar ulceration but with multiple healing 5-10mm ulcerations on the upper and inferior breast and chest below. ASSESSMENT/PLAN: 1. Intertrigo - ICD9: 695.89, ICD10: L30.4 (primary diagnosis) 2. Ulcers, skin (HCC) - ICD9: 707.9, ICD10: L98.499 Continue antibacterial and antifungal regimen. Add a fabric in the folds to reduce friction and moisture. - ABSCESS AND WOUND CULTURE WITH GRAM STAIN - HSV1,2/VZV NAAT LESION - NYSTATIN 100,000 UNIT/GRAM TOPICAL POWDER Follow up with PCP or dermatology. Mike Adler MD documented in this encounterPeoples [facility]06-25-2024 NoteHNO ID: [id number] Author: JAHAIRA LARA LPN Service: ? Author Type: LICENSED NURSE Type: Progress Notes Filed: 12/16/2023 18:14 Note Text: Scan on 12/16/2023 9:18 AM by ProviderTerrance PA-C: Consultation - [facility]06-[facility] History of Present illness Narrative* Jahaira Lara LPN - 12/16/2023 6:14 PM EDT Scan on 12/16/2023 9:18 AM by Provider, ALESSIO Carlos: Consultation - Emergency Medicine documented in this encounterPeoples Hospital06-10-2024 NoteM[facility]06-10-2024 History of Present illness Narrative* Nikko Jose MD - 12/01/2023 4:09 PM EDT Images from the original note were not included. Nikko Jose MD Interventional Cardiology [address] [place] [address] [phone] Chief Complaint Patient presents with: Follow Up HISTORY OF PRESENT ILLNESS: Mr. Arango is a 83 year old male seen in the office for follow-up prior history of hypertensive heart disease with supraventricular tachycardia Doing well from the cardiac point of view asymptomatic denies chest pain or shortness of breath no palpitation no syncope or presyncope Cardiac Risk Factors age (male over 45, female over 55), hypertension, family history of CAD PAST MEDICAL HISTORY Diagnosis Date 1st degree AV block 09/08/2015 AC (acromioclavicular) joint arthritis 08/09/2009 Acquired hypothyroidism 04/03/2015 Actinic skin damage 03/08/2012 Acute, but ill-defined, cerebrovascular disease 07/13/2008 Advance directive discussed with patient 03/21/2022 Discussed 02/2022 Anemia 07/24/2015 Arthritis of knee 10/30/2011 At risk for falls 05/28/2019 Atypical nevus of thoracic region 02/03/2014 Balance problem 04/24/2014 Due to CVA in 2008 and right leg weakness Bilateral carotid artery stenosis 12/27/2021 US 12/2021: R 40-60% L 20-40% Bilateral leg edema 08/01/2014 Bladder cancer (HCC) 09/07/2014 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 (HCC) 07/13/2008 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 Diastasis recti 08/01/2014 Diverticulosis of colon (without mention of hemorrhage) Dupuytren's contracture of both hands 09/21/2012 Elevated fasting blood sugar 04/16/2010 Essential hypertension Essential hypertension Familial peripheral neuropathy 06/02/2015 Gait difficulty 04/29/2016 Gastroesophageal reflux disease without esophagitis 04/03/2015 Greater trochanteric bursitis 03/20/2016 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09/04/2012 History of bladder cancer 04/09/2023 History of CVA (cerebrovascular accident) 02/2008 residual weakness in right leg History of giant cell arteritis 03/29/2008 Hx of long-term use of blood thinners Irritated//Inflamed Seborrheic Keratosis 03/08/2012 Living will on file 03/21/2022 DPA: Sudarshan () Low back pain 01/13/2014 Low serum vitamin B12 04/16/2022 Lower urinary tract symptoms (LUTS) 08/02/2014 Lumbar stenosis with neurogenic claudication 01/13/[address] Starr Memory difficulties 04/12/2022 04/12/22 MMSE: 29/30 Mild pulmonary hypertension (HCC) 09/22/[address] Hamilton, not able to tolerate CPAP for JESSY. 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 Pain in both hands 12/19/2015 Postlaminectomy syndrome 05/08/2010 Premature supraventricular beats 09/08/2015 Pulmonary nodule 08/06/[address] [facility] on 08/01/22. Repeat in 3-6 months. Multiple nodules up to 7mm in size. Right leg weakness 04/25/2014 Sebaceous cyst 06/08/2009 Stasis dermatitis of both legs 06/02/2015 SVT (supraventricular tachycardia) (HCC) 07/17/2020 SVT (supraventricular tachycardia) (HCC) 07/17/2020 Thoracic or lumbosacral neuritis or radiculitis, unspecified 05/05/2009 Thumb pain, left 11/26/2017 Tinnitus 07/26/2017 Unspecified arthropathy, lower leg 10/12/2008 Venous insufficiency (chronic) (peripheral) 06/02/2015 Vertigo following cerebrovascular accident 07/23/2010 Viral warts, unspecified 04/09/2013 Xerosis cutis 09/04/2012 PAST SURGICAL HISTORY Procedure Laterality Date 2D ECHO (EXEP) 08/2015 EF=64%, 1+ TR and mild Pulm HTN COLONOSCOPY FLX DX W/COLLJ SPEC WHEN PFRMD 02/06/2011 Colonoscopy, repeat 10 yrs CYSTO W/REMOVAL OF LESIONS MINOR <0.5CM 08/31/14 ESOPHAGOGASTRODUODENOSCOPY TRANSORAL DIAGNOSTIC 12/14/2018 EGD FASCT PALM W/WO Z-PLASTY TISSUE REARGMT/SKN GRFT Left 09/08/2018 Left 3rd finger fascietomy with skin graft, left 4th finger facietomy with local soft tissue rearrangements and trigger finger release L3-4 and L4-5 laminoforaminotomy 2009 LIGATION/BIOPSY TEMPORAL ARTERY 03-30-08 RIGHT, negitive. LUMBAR SPINE FUSION COMBINED 05/05/2015 MAL LESION FACE,EAR,EYEL 1.1-2CM 04/20/08 Exc. right lateral islam skin lesion and right forehead OPEN REPAIR OF ROTATOR CUFF ACUTE 2001 Rotator cuff repair left PAST SURGICAL HISTORY OF ingrown toe nail removed PAST SURGICAL HISTORY OF 1965 cyst removed from bottom of spine SHOULDER ARTHROSCOPY/SURGERY 08/02/2010 Open Rt subacromial decompression STRESS TEST 04/10/2015 WNL STRESS TEST NUCLEAR 07/09/2018 negative FAMILY HISTORY Problem Relation Age of Onset Hypertension Mother Stroke Mother other (headaches) Mother Ischemic Heart Disease Father Heart Brother Social History Tobacco Use Smoking status: Never Passive exposure: Never Smokeless tobacco: Never Vaping Use Vaping Use: Never used Substance Use Topics Alcohol use: Not Currently Drug use: Never ALLERGIES Allergen Reactions Ditropan [Oxybutyni* Other: See Comments Nausea, brain fog, increased weakness, decreased appetite, and increased restless leg symptoms. Prednisone Other: See Comments Had GI problems, headaches. Patient states he was on high dose for almost 90 days Medications: Current Outpatient Medications Medication Sig Dispense Refill finasteride (PROSCAR) 5 mg tablet Take 1 tablet by mouth once daily. 90 tablet 2 gabapentin (NEURONTIN) 600 mg tablet Take 2 tablets by mouth three times a day for 10 days. 60 tablet 0 traZODone (DESYREL) 50 mg tablet Take 1 tablet by mouth daily at bedtime. 90 tablet 1 tamsulosin (FLOMAX) 0.4 mg Take 1 capsule by mouth daily at bedtime. 90 capsule 3 pravastatin (PRAVACHOL) 20 mg tablet Take 1 tablet by mouth once daily. 90 tablet 1 lisinopril 2.5 mg tablet Take 1 tablet by mouth once daily. 90 tablet 1 DULoxetine (CYMBALTA) 30 mg capsule Take 1 capsule by mouth once daily. 90 capsule 1 Fluorouracil 5 % cream potassium chloride ER (KLOR-CON M20) 20 mEq tablet Take 1 tablet by mouth once daily. 90 tablet 3 cyanocobalamin (VITAMIN B-12) 1,000 mcg tab Take 1 tablet by mouth once daily. 90 tablet 3 levothyroxine (LEVOXYL) 125 mcg tablet Take one tab daily Fri-Fri and two on Friday and FridayTake on empty stomach. For thyroid. 108 tablet 1 furosemide (LASIX) 20 mg tablet Take 1 tablet by mouth once daily. 90 tablet 1 clopidogrel (PLAVIX) 75 mg tablet Take 1 tablet by mouth once daily. 90 tablet 1 vit C/E/Zn/coppr/lutein/zeaxan (PRESERVISION AREDS-2 ORAL) Take by mouth two times a day. ZINC ORAL Take by mouth once daily. COMPOUNDED PRESCRIPTION rollator walker #: one Dx: I63.50, Z86.73, R26.89, G60.9, M62.81 and M48.06 1 Device 0 multivitamins w-minerals/lut(CENTRUM SILVER TAB) Take by mouth. 0 No current facility-administered medications for this visit. Review of Systems Constitutional: Negative for chills, diaphoresis, fever, malaise/fatigue and weight loss. HENT: Negative for congestion, ear discharge, ear pain, hearing loss, nosebleeds, sinus pain, sore throat and tinnitus. Eyes: Negative for blurred vision, double vision, photophobia, pain, discharge and redness. Respiratory: Negative for cough, hemoptysis, sputum production, shortness of breath, wheezing and stridor. Cardiovascular: Negative for chest pain, palpitations, orthopnea, claudication, leg swelling and PND. Gastrointestinal: Negative for abdominal pain, blood in stool, constipation, diarrhea, heartburn, melena, nausea and vomiting. Genitourinary: Negative for dysuria, flank pain, frequency, hematuria and urgency. Musculoskeletal: Negative for back pain, falls, joint pain, myalgias and neck pain. Skin: Negative for itching and rash. Neurological: Negative for dizziness, tingling, tremors, sensory change, speech change, focal weakness, seizures, loss of consciousness, weakness and headaches. Endo/Heme/Allergies: Negative for environmental allergies and polydipsia. Does not bruise/bleed easily. Psychiatric/Behavioral: Negative for depression, hallucinations, memory loss, substance abuse and suicidal ideas. The patient is not nervous/anxious and does not have insomnia. Physical Examination: Vitals:BP 134/64 Pulse 54 Wt 288 lb (130.6kg) SpO2 94% BP w/Orthostatic Vitals Date and Time Orthostatic BP Orthostatic Pulse BP Pulse BP Position BP Site BP Cuff Size 12/01/23 1552 -- -- 134/64 54 -- -- -- Last 2 Encounter Wt Readings: Date: Wt: 12/01/2023 130.6 kg (288 lb) 11/03/2023 129.2 kg (284 lb 12.8 oz) Physical Exam Constitutional: General: He is not in acute distress. Appearance: He is not diaphoretic. HENT: Head: Normocephalic and atraumatic. Right Ear: External ear normal. Left Ear: External ear normal. Nose: Nose normal. Mouth/Throat: Pharynx: Oropharynx is clear. Eyes: General: Right eye: No discharge. Left eye: No discharge. Conjunctiva/sclera: Conjunctivae normal. Pupils: Pupils are equal, round, and reactive to light. Cardiovascular: Rate and Rhythm: Normal rate and regular rhythm. Heart sounds: Normal heart sounds, S1 normal and S2 normal. No murmur heard. No friction rub. No gallop. No S3 or S4 sounds. Pulmonary: Effort: Pulmonary effort is normal. No respiratory distress. Breath sounds: Normal breath sounds. No wheezing or rales. Chest: Chest wall: No tenderness. Abdominal: General: Abdomen is flat. Musculoskeletal: General: Normal range of motion. Cervical back: Normal range of motion and neck supple. Skin: General: Skin is warm and dry. Neurological: Mental Status: He is alert and oriented to person, place, and time. Psychiatric: Mood and Affect: Mood normal. Thought Content: Thought content normal. Judgment: Judgment normal. Pertinent Labs: CBC: Hemoglobin (g/dL) Date Value 03/26/2023 13.4 03/13/2021 13.7 Hematocrit (%) Date Value 03/26/2023 42.5 03/13/2021 43.5 WBC (k/uL) Date Value 03/26/2023 6.71 03/13/2021 9.19 Platelet Count (k/uL) Date Value 03/26/2023 167 03/13/2021 195 BMP: Glucose (mg/dL) Date Value 09/29/2023 194 03/13/2021 169 Potassium (mmol/L) Date Value 09/29/2023 4.2 03/13/2021 4.3 Sodium (mmol/L) Date Value 09/29/2023 142 03/13/2021 144 Chloride (mmol/L) Date Value 09/29/2023 105 03/13/2021 107 CO2 (mmol/L) Date Value 09/29/2023 26 03/13/2021 24 Creatinine (mg/dL) Date Value 09/29/2023 0.86 03/13/2021 0.93 BUN (mg/dL) Date Value 09/29/2023 25 03/13/2021 22 Anion Gap (mmol/L) Date Value 09/29/2023 11 03/13/2021 13 Calcium (mg/dL) Date Value 03/13/2021 8.9 Calcium, Total (mg/dL) Date Value 09/29/2023 9.2 INR: Lipid Profile: Total Cholesterol, Nonfasting Date Value Ref Range Status 09/29/2023 155 <200 mg/dL Final Comment: <200 mg/dL, Desirable 200-239 mg/dL, Borderline high >239 mg/dL, High HDL Cholesterol, Nonfasting Date Value Ref Range Status 09/29/2023 38 (L) >39 mg/dL Final Comment: 40-59 mg/dL, Acceptable >59 mg/dL, High: Negative risk factor for coronary heart disease <40 mg/dL, Low: Positive risk factor for coronary heart disease LDL Cholesterol, Nonfasting Date Value Ref Range Status 09/29/2023 80 <100 mg/dL Final Comment: <100 mg/dL, Optimal 100-129 mg/dL, Near optimal/above optimal 130-159 mg/dL, Borderline high 160-189 mg/dL, High >189 mg/dL, Very high Secondary prevention optimal LDL Cholesterol levels are recommended to be < 70 mg/dL Triglycerides, Nonfasting Date Value Ref Range Status 09/29/2023 187 (H) <150 mg/dL Final Comment: <150 mg/dL, Normal 150-199 mg/dL, Borderline high 200-499 mg/dL, High >499 mg/dL, Very high Hemoglobin A1C: No results found for: HGBA1C TSH: No results found for: TSHREFL Prior Cardiac Testing none Assessment and Plan: 83 years old gentleman prior history of supraventricular tachycardia hypertensive heart disease ASSESSMENT/PLAN: 1. SVT (supraventricular tachycardia) (HCC) - ICD9: 427.89, ICD10: I47.10 (primary diagnosis) Stable with few episodes and runs of SVT controlled well 2. Essential hypertension - ICD9: 401.9, ICD10: I10 - Controlled - Continue current medications - Recommend home blood pressure monitoring, to bring results to next visit - Encouraged sodium restriction, DASH or Mediterranean diet - Recommend regular aerobic exercise Nikko Jose MD Follow up planning: One year Electronically signed by Nikko Jose MD on December 01, 2023, 4:09 PM The above note was partially created using a dictation recognition software. A reasonable attempt has been made to correct any errors. [facility] Tele[facility] encounter Note * Telephone Encounter - Nick Spence MA - 11/26/2023 5:24 PM EDT Mailed. Nick Spence MA [facility] Miscellaneous Notes* Telephone Encounter - Nick Spence MA - 11/26/2023 5:24 PM EDT Mailed. Nick Spence MA * Telephone Encounter - Jose Fam MD - 11/26/2023 4:55 PM EDT Script ready * Telephone Encounter - Jaye Mays LPN - 11/26/2023 2:41 PM EDT Pt calling for a prescription for a new walker has 2 wheels in front and rubber in back. Please mail to pt and he will take care of getting the walker. Please advise pt when this has been mailed and he will watch for it. Jaye Mays LPN [facility] Telephone encounter Note * Telephone Encounter - Jose Fam MD - 11/26/2023 4:55 PM EDT Script ready [facility] Note* Telephone Encounter - Jaye Mays LPN - 11/26/2023 2:41 PM EDT Pt calling for a prescription for a new walker has 2 wheels in front and rubber in back. Please mail to pt and he will take care of getting the walker. Please advise pt when this has been mailed and he will watch for it. Jaye Mays LPN [facility] Telephone encounter Note* Telephone Encounter - Blaz, YASIR Myers DNP - 11/03/2023 4:03 PM EDT Sent patient [facility] message for PFPT exercise handout. Ange Mondragon APRN.CNP, DNP [facility]05-13[facility] Miscellaneous Notes* Telephone Encounter - Ange Mondragon APRN.CNP, DNP - 11/03/2023 4:03 PM EDT Sent patient [facility] message for PFPT exercise handout. Ange Mondragon APRN.CNP, DNP [facility] Instructions* Patient Instructions* Ange Mondragon APRN.CNP, DNP - 11/03/2023 3:01 PM EDT Images from the original note were not included. Follow up with Ange Mondragon APRN.CNP, DNP in 1 year Cont with Flomax and Finasteride [address] up with Dr. Ochoa for Cystoscopy. Return to the clinic or seek care at [facility] for any worsening signs or symptoms: such as fevers, chills, worsening pain, gross blood in urine or worsening urinary symptoms. For severe symptoms seek care at the closest ER. Plan of care, medicaiton side effects and management reviewed with patient. Healthy Habits: Recommend regular physical activity, nutrition and healthy eating habits. Consume a variety of foods every day focusing on fruits, vegetables and lean meats). Eat foods low in fat, saturated fat and cholesterol. Eat a limited amount of salt and sodium. Drink adequate amounts of water and limit sugary drinks. Exercise portion control in meal selection. Establish a mindset of a wellness approach to health. Thank you for allowing me to provide your care today. I look forward to seeing you again and maintaining your health. Ange Mondragon APRN.CNP, DNP For OAB: Recommend behavioral therapies (e.g., bladder training, bladder control strategies, pelvic floor muscle training, fluid management) Anti-muscarinic medications: (Oxybutynin (Ditropan XL) Tolterodine (Detrol, Detrol LA), Solifenacin(Vesicare, Vesicare LS), Trospium, and Fesoterodine (Toviaz): The choice of oral anti-muscarinics as second-line therapy reflects the fact that these medicationsreduce symptoms but also can commonly have side effects such as dry mouth, constipation, dry or itchy eyes, blurred vision, dyspepsia, UTI, urinary retention and impaired cognitive function (trouble with memory and confusion). For dry mouth, try sucking hard candy or chewing gum to produce more saliva. Other less common sideeffects include heartburn, blurry vision, rapid heartbeat, flushed skin and trouble urinating. ? 3-adrenoceptor agonists: Mirabegron and Gemtesa are options. These are typically not covered by most commercial insurance plans. They work on the muscles of the bladder to increase the amount of urine your bladder can hold and prevent them from causing incontinence Common side effects of these medications are High Blood Pressure, Headache, UTIs, Nasopharyngitis, bladder pain, and urinary retention. BLADDER BOTOX TREATMENT Sacral neuromodulation (SNS) as third-line treatment in a carefully selected patient population characterized by severe refractory OAB symptoms or patients who are not candidates for second-line therapy and are willing to undergo a surgical procedure Overactive Bladder (OAB) Therapy Thank you for seeing us today. You have urgency urinary incontinence or Overactive Bladder. The treatment options are as follows: - Dietary modification (avoid excessive caffeine intake, bladder irritants) - Pelvic floor physical therapy - Medical therapy (anticholinergic medication/beta 3 agonist medication) - Bladder Botox injection - Sacral neuromodulation - PTNS (percutaneous Tibial Nerve Stimulation) You have urgency urinary incontinence or leakage of urine associated with the severe desire or urgeto urinate. This can often occur in the setting of needing to urgently use the restroom but not being able to make it in time. This type of urinary leakage is different than leakage associated with co ughing/sneezing/lifting objects. Leakage with coughing/sneezing/lifting objects is called stress urinary incontinence. In some patients the urgency incontinence and some stress incontinence both occur and this is called Mixed incontinence. Your doctor will advise you the best part of the incontinence to help start to treat. Urgency urinary incontinence is treated multiple different ways. The first step is behavioral modification. Caffeine intake and bladder irritants are known to be associated with increased urgency. Decreasing the amount of coffee/tea/soda consumption can help with urgency. The only treatment that can treat both urgency and stress urinary incontinence is pelvic floor physical therapy. Pelvic floor physical therapy is performed with a trained physical therapist who will teach you how to perform exercises to both decrease the urgency to urinate and also strengthen muscles to prevent urine from leaking. If this does not work, then another option for urgency urinary incontinence is anticholinergic medication. These medications need to be taken daily. The best effect is usually seen after a month of usage. The main side effect of anticholinergics is dry mouth and constipation. You may also have dry eyes, confusion and blood pressure changes associated with anticholinergics. Lastly, this class of medication is not used in patients with a specific type of glaucoma. A different type of medication that works on quieting the bladder are beta 3 agonists. This medication is relatively new and currently is while insurance coverage is improving, sometimes this can be a costly medication. Uncontrolledhigh blood pressure is a contraindication to using this medication. If physical therapy and medication do not work for your urgency, the next line of therapy involves one of three options: neuromodulation or Botox injections into the bladder. Neuromodulation can be performed using percutaneous tibial nerve stimulation (PTNS) or interstim. Third Line Options for Overactive Bladder (when medications do not work) PTNS (Posterior tibial nerve stimulation) PTNS is a twelve week procedure where you would come into the office once a week and for a 30 minute session have a very thin needle placed in the ankle to stimulate a nerve. Studies have shown this to be more successful than placebo in reducing urgency and urgency urinary incontinence. The benefitis that you can have improvement without surgery. The downside is that this can be time consuming in regards to coming once a week for 12 weeks for each session. If this works at helping your bladderat 12 weeks, then one needs to do a maintenance phase having the therapy repeated once a month, indefinitely. Interstim ([employer] Interstim is a surgically implanted lead with electrodes attached to a battery generator that is used to modulate impulses from the sacral nerve roots. This acts as a bladder pacemaker to help with urgency and urgency urinary incontinence. One must do a bladder diary or voiding diary for 3 days in advance of having the surgery done to assure it can be submitted for insurance coverage. This surgery is typically done in two stages. The first stage is implantation of the lead next to the nerve root. This is done in the operating room under sedation without the need for breathing tubes in most patients. The lead is then connected to an outside wireless stimulator taped to your lowerback. A two week trial run is performed to ensure that you are getting an improvement with the device. If symptoms improve by 50% or greater, then stage II is performed where the battery generator isimplanted underneath the skin in the operating room. Currently the battery life is about 5 years and so this would need a revision during that time with a surgery to change the battery.The success rate for this therapy is over 80% in our practice. Another approach is the use of the PNE or percutaneous nerve evaluation. This entails an office placement of the lead (smaller and thinner) to give a temporary (5 day or so) trial of the therapy. If it helps at least 50%, one can proceed directly to formal implant (once) in the operating room. If it is not successful, then one can do a stage 1 approach as above in the operating room. BOTOX Botox injection into the bladder is another treatment option for urinary urgency and urgency urinary incontinence. This is an outpatient procedure usually done in the office where a cystoscopy is performed and botulinum toxin is injected at multiple different spots into the bladder lining. It will take approximately ten to fifteen minutes to perform the actual procedure but with preparation may take close to an hour . The risks of the Botox injection include bleeding, infection, and urinary retention (emptying problems). Depending on the number of units (anywhere from 100 to 300 units) used for botox injection, the urinary retention risk is from 6-20%. If you are not willing or able to catheterize after the procedure then botox injection may not be an option for you. The effects of botox are temporary and usually last 6-9 months so it needs to be repeated roughly twice a year. [facility] History of Present illness Narrative* Ange Mondragon APRN.MAREK FREGOSO - 11/03/2023 2:30 PM EDT [facility] MALE PATIENT - HISTORY AND PHYSICAL EXAMINATION PATIENT: Regan Arango (82 year old) 08/04/2023 PCP: Jose Fam MD CHIEF COMPLAINT: Hx of bladder cancer and BPH/LUTS follow up HISTORY OF PRESENT ILLNESS: 82 year old year old male with Hx of bladder cancer and BPH/LUTs. Here for follow up Prior patient of Dr. Ochoa. Last seen on August 2020. Has not seen Urology since that time. Previous note - 5 years out. Hx of bladder cancer - Path low grade Ta. Path on 09/01/2014 -Bladder neck lesion, biopsy (A) - Non-invasive low-grade urothelial carcinoma- Muscularis propria is present and not involved. Recent Cyst with Dr. Ochoa on 09/09/23: RESULT: The scope was negotiated through the pendulous urethra to the level of the bulbar urethra with no evidence of stricture. The verumontanum came into view and the scope was negotiated through the prostatic urethra which showed evidence of a patent prostatic urethra. The bladder was entered and careful dia endoscopy was carried out. The posterior, superior and lateral topete and dome of the bladder were all well visualized and the scope was retroflexed upon itself. The findings were consistent with no evidence of bladder mucosal pathology. 09/19/20 - Given a trial of Flomax at that time. Continued on both Proscar and Flomax. Previously on Oxybutynin for OAB: + constipation. Stopped med in 2020. Nothing since that time. + Urgency. Has to wear a pad at times. Tried Myrbetriq. URINARY: IRRITATIVE - BOTHERSOME FREQUENCY: No - URGENCY: Yes - INCONTINENCE: Stress No / Urge Yes OBSTRUCTIVE - FORCE OF STREAM: Average - HESITANCY: No - INTERMITTENCY: No - STRAINING: No - INCOMPLETE EMPTYING: No - DOUBLE VOIDING: No - POSTVOID DRIBBLING: No CURRENT URINARY STATUS: - INDWELLING CATHETER: No - CURRENT INTERMITTENT CATHETERIZATION: No - GROSS HEMATURIA: No - URINARY TRACT INFECTION: No Patient Entered Questionnaires: INTERNATIONAL PROSTATE SYMPTOM SCORE (I-PSS) PREVIOUS TOTAL IPSS SCORE: 7 QOL = 6 1. Incomplete emptying 0 2. Frequency 1 3. Intermittency 0 4. Urgency 5 5. Weak stream 1 6. Straining 0 7. Nocturia 1 TOTAL IPSS SCORE 8 QOL = 4 PROMIS Global Health 05/21/2023 07/29/2023 10/31/2023 PROMIS Global Health Scale Physical Health Percentile 7 10 41 Mental Health Percentile 53 73 89 Percentiles provide an indication of how the patient's score ranks in relation to the general population. Higher percentile rankings indicate better function/quality of life. 50th percentile is the average of the general population and indicates half of respondents had a worse score. HISTORY: PAST MEDICAL HISTORY Diagnosis Date 1st degree AV block 09/08/2015 AC (acromioclavicular) joint arthritis 08/09/2009 Acquired hypothyroidism 04/03/2015 Actinic skin damage 03/08/2012 Acute, but ill-defined, cerebrovascular disease 07/13/2008 Advance directive discussed with patient 03/21/2022 Discussed 02/2022 Anemia 07/24/2015 Arthritis of knee 10/30/2011 At risk for falls 05/28/2019 Atypical nevus of thoracic region 02/03/2014 Balance problem 04/24/2014 Due to CVA in 2008 and right leg weakness Bilateral carotid artery stenosis 12/27/2021 US 12/2021: R 40-60% L 20-40% Bilateral leg edema 08/01/2014 Bladder cancer (HCC) 09/07/2014 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 (HCC) 07/13/2008 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 Diastasis recti 08/01/2014 Diverticulosis of colon (without mention of hemorrhage) Dupuytren's contracture of both hands 09/21/2012 Elevated fasting blood sugar 04/16/2010 Essential hypertension Essential hypertension Familial peripheral neuropathy 06/02/2015 Gait difficulty 04/29/2016 Gastroesophageal reflux disease without esophagitis 04/03/2015 Greater trochanteric bursitis 03/20/2016 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09/04/2012 History of bladder cancer 04/09/2023 History of CVA (cerebrovascular accident) 02/2008 residual weakness in right leg History of giant cell arteritis 03/29/2008 Hx of long-term use of blood thinners Irritated//Inflamed Seborrheic Keratosis 03/08/2012 Living will on file 03/21/2022 DPA: Sudarshan () Low back pain 01/13/2014 Low serum vitamin B12 04/16/2022 Lower urinary tract symptoms (LUTS) 08/02/2014 Lumbar stenosis with neurogenic claudication 01/13/[address] Starr Memory difficulties 04/12/2022 04/12/22 MMSE: 29/30 Mild pulmonary hypertension (HCC) 09/22/[address] Hamilton, not able to tolerate CPAP for JESSY. 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 Pain in both hands 12/19/2015 Postlaminectomy syndrome 05/08/2010 Premature supraventricular beats 09/08/2015 Pulmonary nodule 08/06/[address] [facility] on 08/01/22. Repeat in 3-6 months. Multiple nodules up to 7mm in size. Right leg weakness 04/25/2014 Sebaceous cyst 06/08/2009 Stasis dermatitis of both legs 06/02/2015 SVT (supraventricular tachycardia) (HCC) 07/17/2020 SVT (supraventricular tachycardia) (HCC) 07/17/2020 Thoracic or lumbosacral neuritis or radiculitis, unspecified 05/05/2009 Thumb pain, left 11/26/2017 Tinnitus 07/26/2017 Unspecified arthropathy, lower leg 10/12/2008 Venous insufficiency (chronic) (peripheral) 06/02/2015 Vertigo following cerebrovascular accident 07/23/2010 Viral warts, unspecified 04/09/2013 Xerosis cutis 09/04/2012 PAST SURGICAL HISTORY Procedure Laterality Date 2D ECHO (EXEP) 08/2015 EF=64%, 1+ TR and mild Pulm HTN COLONOSCOPY FLX DX W/COLLJ SPEC WHEN PFRMD 02/06/2011 Colonoscopy, repeat 10 yrs CYSTO W/REMOVAL OF LESIONS MINOR <0.5CM 08/31/14 ESOPHAGOGASTRODUODENOSCOPY TRANSORAL DIAGNOSTIC 12/14/2018 EGD FASCT PALM W/WO Z-PLASTY TISSUE REARGMT/SKN GRFT Left 09/08/2018 Left 3rd finger fascietomy with skin graft, left 4th finger facietomy with local soft tissue rearrangements and trigger finger release L3-4 and L4-5 laminoforaminotomy 2009 LIGATION/BIOPSY TEMPORAL ARTERY 03-30-08 RIGHT, negitive. LUMBAR SPINE FUSION COMBINED 05/05/2015 MAL LESION FACE,EAR,EYEL 1.1-2CM 04/20/08 Exc. right lateral islam skin lesion and right forehead OPEN REPAIR OF ROTATOR CUFF ACUTE 2000 Rotator cuff repair left PAST SURGICAL HISTORY OF ingrown toe nail removed PAST SURGICAL HISTORY OF 1965 cyst removed from bottom of spine SHOULDER ARTHROSCOPY/SURGERY 08/02/2010 Open Rt subacromial decompression STRESS TEST 04/10/2015 WNL STRESS TEST NUCLEAR 07/09/2018 negative Social History Tobacco Use Smoking status: Never Passive exposure: Never Smokeless tobacco: Never Vaping Use Vaping Use: Never used Substance Use Topics Alcohol use: Not Currently Drug use: Never FAMILY HISTORY Problem Relation Age of Onset Hypertension Mother Stroke Mother other (headaches) Mother Ischemic Heart Disease Father Heart Brother MEDICATIONS: Current Outpatient Medications Medication Sig gabapentin (NEURONTIN) 600 mg tablet Take 2 tablets by mouth three times a day for 180 days. traZODone (DESYREL) 50 mg tablet Take 1 tablet by mouth daily at bedtime. finasteride (PROSCAR) 5 mg tablet Take 1 tablet by mouth once daily. tamsulosin (FLOMAX) 0.4 mg Take 1 capsule by mouth daily at bedtime. pravastatin (PRAVACHOL) 20 mg tablet Take 1 tablet by mouth once daily. lisinopril 2.5 mg tablet Take 1 tablet by mouth once daily. DULoxetine (CYMBALTA) 30 mg capsule Take 1 capsule by mouth once daily. Fluorouracil 5 % cream potassium chloride ER (KLOR-CON M20) 20 mEq tablet Take 1 tablet by mouth once daily. cyanocobalamin (VITAMIN B-12) 1,000 mcg tab Take 1 tablet by mouth once daily. levothyroxine (LEVOXYL) 125 mcg tablet Take one tab daily Fri-Fri and two on Friday and FridayTake on empty stomach. For thyroid. furosemide (LASIX) 20 mg tablet Take 1 tablet by mouth once daily. clopidogrel (PLAVIX) 75 mg tablet Take 1 tablet by mouth once daily. vit C/E/Zn/coppr/lutein/zeaxan (PRESERVISION AREDS-2 ORAL) Take by mouth two times a day. ZINC ORAL Take by mouth once daily. COMPOUNDED PRESCRIPTION rollator walker #: one Dx: I63.50, Z86.73, R26.89, G60.9, M62.81 and M48.06 gabapentin (NEURONTIN) 600 mg tablet Take 2 tablets by mouth three times a day for 10 days. multivitamins w-minerals/lut(CENTRUM SILVER TAB) Take one(1) tablet daily. (Patient not taking: Reported on 08/04/2023) No current facility-administered medications for this visit. LABS: Latest Ref Rng 11/03/2023 GLUCOSE UA (POCT) Negative mg/dL Negative BILIRUBIN UA (POCT) Negative Negative KETONE UA (POCT) Negative mg/dL Negative SPECIFIC GRAVITY UA (POCT) 1.005 - 1.030 1.025 HEMOGLOBIN/BLOOD UA (POCT) Negative Negative PH UA (POCT) 4.5 - 8.0 7.0 PROTEIN UA (POCT) Negative mg/dL Negative UROBILINOGEN UA (POCT) Normal E.U./dL 4.0 ! NITRITE UA (POCT) Negative Negative LEUKOCYTES UA (POCT) Negative Negative COLOR UA (POCT) Yellow CLARITY UA (POCT) Clear Legend: ! Abnormal GLUCOSE UA (POCT) Negative 03/09/2019 BILIRUBIN UA (POCT) Small 03/09/2019 KETONE UA (POCT) Trace 03/09/2019 SPECIFIC GRAVITY UA (POCT) 1.020 03/09/2019 HEMOGLOBIN/BLOOD UA (POCT) Negative 03/09/2019 PH UA (POCT) 6.0 03/09/2019 PROTEIN UA (POCT) 30 03/09/2019 UROBILINOGEN UA (POCT) 2.0 03/09/2019 NITRITE UA (POCT) Negative 03/09/2019 LEUKOCYTES UA (POCT) Negative 03/09/2019 COLOR UA (POCT) Yellow 03/09/2019 CLARITY UA (POCT) Clear 03/09/2019 Creatinine Creatinine Date Value Ref Range Status 09/29/2023 0.86 0.73 - 1.22 mg/dL Final 03/26/2023 0.94 0.73 - 1.22 mg/dL Final 09/23/2022 0.76 0.73 - 1.22 mg/dL Final 03/19/2022 0.94 0.73 - 1.22 mg/dL Final PSA PSA (ng/mL) Date Value 03/19/2022 0.14 10/29/2019 0.31 11/25/2018 0.22 12/03/2017 0.31 12/15/2015 0.22 OFFICE DATA: POST-VOID RESIDUAL BLADDER VOLUME: YES, 0 cc Review of Systems: PAIN ASSESSMENT: CURRENTLY HAVING NO PAIN GENERAL: No weight loss, malaise or fevers GI: No nausea, vomiting MUSCULOSKELETAL: Negative for generalized joint pain SKIN: Negative for rash HEMATOLOGY/LYMPHOLOGY: Negative for swollen nodes All other systems reviewed and noncontributory PHYSICAL EXAMINATION: VITALS: BP 128/70 Pulse 72 Ht 180.3 cm (5' 11) Wt 129.2 kg (284 lb 12.8 oz) BMI 39.72 kg/m GENERAL: alert, no distress, normal affect RESPIRATORY: normal effort EXTREMITIES: normal SKIN: normal NEUROLOGIC: normal ASSESSMENT/PLAN: ASSESSMENT/PLAN: 1. BPH associated with nocturia - ICD9: 600.01, 788.43, ICD10: N40.1, R35.1 (primary diagnosis) 82-year-old male with a history of BPH/LUTS and overactive bladder. History of bladder cancer diagnosed in 2014. Patient of Dr. Ochoa. In 2020 he had stopped his oxybutynin due to constipation and potassium supplementation. Continued on Proscar and Flomax. Worse symptom over the past 1 to 3 years has been urinary urgency. Recent Cysto with Dr. Ochoa was unremarkable. Repeat Cysto in 1 year. Didnot try the Myrbetriq due to cost. PVR 0 mL Plan: Myrbetriq was to expensive - Never tried. Symptoms improved some after recent treatment for UTI and CYSTO. Continue with Flomax and Proscar follow up in 12 months- sooner for any concerns. - POST VOID RESIDUAL - FINASTERIDE 5 MG TABLET - daily - URINALYSIS, WITH MICROSCOPIC 2. OAB (overactive bladder) - ICD9: 596.51, ICD10: N32.81 82-year-old male with a history of BPH/LUTS and overactive bladder. History of bladder cancer diagnosed in 2014. Patient of Dr. Ochoa. In 2020 he had stopped his oxybutynin due to constipation and potassium supplementation. Continued on Proscar and Flomax. Worse symptom over the past 1 to 3 years has been urinary urgency. Recent Cysto with Dr. Ochoa was unremarkable. Repeat Cysto in 1 year. Didnot try the Myrbetriq due to cost. PVR 0 mL Plan: Myrbetriq was to expensive - Never tried. Symptoms improved some after recent treatment for UTI and CYSTO. Continue with Flomax and Proscar follow up in 12 months- sooner for any concerns. PFPT exercise handout. - POST VOID RESIDUAL 3. History of bladder cancer - ICD9: V10.51, ICD10: Z85.51 Chronic - stable Dr. Ochoa performed a surveillance cystoscopy in September 2023. No acute findings. RTC in 1 for repeat Cysto per his note. 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 + obesity contributes to his buried penis Recommend diet & weight loss 5. At risk for falls - ICD9: V15.88, ICD10: Z91.81 Uses roller walker for balance. High risk for falls. 6. Urgency of urination - ICD9: 788.63, ICD10: R39.15 82-year-old male with a history of BPH/LUTS and overactive bladder. History of bladder cancer diagnosed in 2014. Patient of [address] Ochoa. In 2020 he had stopped his oxybutynin due to constipation and potassium supplementation. Continued on Proscar and Flomax. Worse symptom over the past 1 to 3 years has been urinary urgency. Recent Cysto with Dr. Ochoa was unremarkable. Repeat Cysto in 1 year. Didnot try the Myrbetriq due to cost. PVR 0 mL Plan: Myrbetriq was to expensive - Never tried. Symptoms improved some after recent treatment for UTI and CYSTO. Continue with Flomax and Proscar follow up in 12 months- sooner for any concerns. PFPT exercise handout. This note was copied from previous note and exam dated 08/04/23. Author is Ange Mondragon APRN.ZENOBIA, MAREK note reviewed and changes have been made or updates noted in the copy & paste portion of an encounter. Ange Mondragon DNP, ZENOBIA [facility] documented [facility]04[facility] Telephone encounter Note * Telephone Encounter - Jose Fam MD - 10/21/2023 4:46 PM EDT The following approved medication requests have been transmitted electronically. Requested Prescriptions Signed Prescriptions Disp Refills gabapentin (NEURONTIN) 600 mg tablet 60 tablet 0 Sig: Take 2 tablets by mouth three times a day for 10 days. Authorizing Provider: JOSE FAM gabapentin (NEURONTIN) 600 mg tablet 540 tablet 1 Sig: Take 2 tablets by mouth three times a day for 180 days. Authorizing Provider: JOSE FAM MD [facility]04-30-2024 Miscellaneous Notes* Telephone Encounter - Jose Fam MD - 10/21/2023 4:46 PM EDT The following approved medication requests have been transmitted electronically. Requested Prescriptions Signed Prescriptions Disp Refills gabapentin (NEURONTIN) 600 mg tablet 60 tablet 0 Sig: Take 2 tablets by mouth three times a day for 10 days. Authorizing Provider: JOSE FAM gabapentin (NEURONTIN) 600 mg tablet 540 tablet 1 Sig: Take 2 tablets by mouth three times a day for 180 days. Authorizing Provider: JOSE FAM MD * Telephone Encounter - Christi Vu MA - 10/21/2023 12:02 PM EDT Patient has been identified by name and date of : Yes, Provider Jose Fam MD Date October 21, 2023 Time 12:03 PM Patient phones for refill(s): Requested Prescriptions Pending Prescriptions Disp Refills gabapentin (NEURONTIN) 600 mg tablet 60 tablet 0 Sig: Take 2 tablets by mouth three times a day for 10 days. Date of last office visit in primary care: 10/09/2023 Date of next office visit in primary care: 04/09/2024 Patient Comment: I am out of Gabapentin, Need new script at [facility].......Temp fill at [facility] Please advise. Thank you. Christi Vu MA. documented in this encounterPe[facility]04-30-2024 Telephone encounter Note * Telephone Encounter - Christi Vu MA - 10/21/2023 12:02 PM EDT Patient has been identified by name and date of : Yes, Provider Jose Fam MD Date October 21, 2023 Time 12:03 PM Patient phones for refill(s): Requested Prescriptions Pending Prescriptions Disp Refills gabapentin (NEURONTIN) 600 mg tablet 60 tablet 0 Sig: Take 2 tablets by mouth three times a day for 10 days. Date of last office visit in primary care: 10/09/2023 Date of next office visit in primary care: 04/09/2024 Patient Comment: I am out of Gabapentin, Need new script at [facility].......Temp fill at [facility] Please advise. Thank you. Christi Vu MA. [facility]04-18-2024 History of Present illness Narrative* Valerie Deshpande APRN.ZENOBIA - 10/09/2023 2:05 PM EDT Chief Complaint Patient presents with: 6 Month Exam HPI Regan Arango is a 82 year old male who presents here today for Above Complaints.. Patient presents for routine follow up. Patient following with derm for skin cancer and reports hasupcoming procedure. Past medical history, appointments, medications, allergies reviewed. Previous Medical History PAST MEDICAL HISTORY Diagnosis Date 1st degree AV block 09/08/2015 AC (acromioclavicular) joint arthritis 08/09/2009 Acquired hypothyroidism 04/03/2015 Actinic skin damage 03/08/2012 Acute, but ill-defined, cerebrovascular disease 07/13/2008 Advance directive discussed with patient 03/21/2022 Discussed 02/2022 Anemia 07/24/2015 Arthritis of knee 10/30/2011 At risk for falls 05/28/2019 Atypical nevus of thoracic region 02/03/2014 Balance problem 04/24/2014 Due to CVA in 2008 and right leg weakness Bilateral carotid artery stenosis 12/27/2021 US 12/2021: R 40-60% L 20-40% Bilateral leg edema 08/01/2014 Bladder cancer (HCC) 09/07/2014 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 (HCC) 07/13/2008 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 Diastasis recti 08/01/2014 Diverticulosis of colon (without mention of hemorrhage) Dupuytren's contracture of both hands 09/21/2012 Elevated fasting blood sugar 04/16/2010 Essential hypertension Essential hypertension Familial peripheral neuropathy 06/02/2015 Gait difficulty 04/29/2016 Gastroesophageal reflux disease without esophagitis 04/03/2015 Greater trochanteric bursitis 03/20/2016 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09/04/2012 History of bladder cancer 04/09/2023 History of CVA (cerebrovascular accident) 02/2008 residual weakness in right leg History of giant cell arteritis 03/29/2008 Hx of long-term use of blood thinners Irritated//Inflamed Seborrheic Keratosis 03/08/2012 Living will on file 03/21/2022 DPA: Sudarshan () Low back pain 01/13/2014 Low serum vitamin B12 04/16/2022 Lower urinary tract symptoms (LUTS) 08/02/2014 Lumbar stenosis with neurogenic claudication 01/13/[address] Starr Memory difficulties 04/12/2022 04/12/22 MMSE: 29/30 Mild pulmonary hypertension (HCC) 09/22/[address] Hamilton, not able to tolerate CPAP for JESSY. 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 Pain in both hands 12/19/2015 Postlaminectomy syndrome 05/08/2010 Premature supraventricular beats 09/08/2015 Pulmonary nodule 08/06/[address] [facility] on 08/01/22. Repeat in 3-6 months. Multiple nodules up to 7mm in size. Right leg weakness 04/25/2014 Sebaceous cyst 06/08/2009 Stasis dermatitis of both legs 06/02/2015 SVT (supraventricular tachycardia) (HCC) 07/17/2020 SVT (supraventricular tachycardia) (HCC) 07/17/2020 Thoracic or lumbosacral neuritis or radiculitis, unspecified 05/05/2009 Thumb pain, left 11/26/2017 Tinnitus 07/26/2017 Unspecified arthropathy, lower leg 10/12/2008 Venous insufficiency (chronic) (peripheral) 06/02/2015 Vertigo following cerebrovascular accident 07/23/2010 Viral warts, unspecified 04/09/2013 Xerosis cutis 09/04/2012 Previous Surgical History PAST SURGICAL HISTORY Procedure Laterality Date 2D ECHO (EXEP) 08/2015 EF=64%, 1+ TR and mild Pulm HTN COLONOSCOPY FLX DX W/COLLJ SPEC WHEN PFRMD 02/06/2011 Colonoscopy, repeat 10 yrs CYSTO W/REMOVAL OF LESIONS MINOR <0.5CM 08/31/14 ESOPHAGOGASTRODUODENOSCOPY TRANSORAL DIAGNOSTIC 12/14/2018 EGD FASCT PALM W/WO Z-PLASTY TISSUE REARGMT/SKN GRFT Left 09/08/2018 Left 3rd finger fascietomy with skin graft, left 4th finger facietomy with local soft tissue rearrangements and trigger finger release L3-4 and L4-5 laminoforaminotomy 2009 LIGATION/BIOPSY TEMPORAL ARTERY 03-30-08 RIGHT, negitive. LUMBAR SPINE FUSION COMBINED 05/05/2015 MAL LESION FACE,EAR,EYEL 1.1-2CM 04/20/08 Exc. right lateral islam skin lesion and right forehead OPEN REPAIR OF ROTATOR CUFF ACUTE 2000 Rotator cuff repair left PAST SURGICAL HISTORY OF ingrown toe nail removed PAST SURGICAL HISTORY OF 1965 cyst removed from bottom of spine SHOULDER ARTHROSCOPY/SURGERY 08/02/2010 Open Rt subacromial decompression STRESS TEST 04/10/2015 WNL STRESS TEST NUCLEAR 07/09/2018 negative Family History FAMILY HISTORY Problem Relation Age of Onset Hypertension Mother Stroke Mother other (headaches) Mother Ischemic Heart Disease Father Heart Brother Patient Allergies ALLERGIES Allergen Reactions Ditropan [Oxybutyni* Other: See Comments Nausea, brain fog, increased weakness, decreased appetite, and increased restless leg symptoms. Prednisone Other: See Comments Had GI problems, headaches. Patient states he was on high dose for almost 90 days Current Medications Current Outpatient Medications on File Prior to Visit Medication Sig finasteride (PROSCAR) 5 mg tablet Take 1 tablet by mouth once daily. tamsulosin (FLOMAX) 0.4 mg Take 1 capsule by mouth daily at bedtime. pravastatin (PRAVACHOL) 20 mg tablet Take 1 tablet by mouth once daily. lisinopril 2.5 mg tablet Take 1 tablet by mouth once daily. DULoxetine (CYMBALTA) 30 mg capsule Take 1 capsule by mouth once daily. Fluorouracil 5 % cream gabapentin (NEURONTIN) 600 mg tablet Take 2 tablets by mouth three times a day for 10 days. (Patient not taking: Reported on 08/26/2023) potassium chloride ER (KLOR-CON M20) 20 mEq tablet Take 1 tablet by mouth once daily. cyanocobalamin (VITAMIN B-12) 1,000 mcg tab Take 1 tablet by mouth once daily. gabapentin (NEURONTIN) 600 mg tablet Take 2 tablets by mouth three times a day for 14 days. levothyroxine (LEVOXYL) 125 mcg tablet Take one tab daily Fri-Fri and two on Friday and FridayTake on empty stomach. For thyroid. traZODone (DESYREL) 50 mg tablet Take 1 tablet by mouth daily at bedtime. furosemide (LASIX) 20 mg tablet Take 1 tablet by mouth once daily. clopidogrel (PLAVIX) 75 mg tablet Take 1 tablet by mouth once daily. vit C/E/Zn/coppr/lutein/zeaxan (PRESERVISION AREDS-2 ORAL) Take by mouth two times a day. ZINC ORAL Take by mouth once daily. COMPOUNDED PRESCRIPTION rollator walker #: one Dx: I63.50, Z86.73, R26.89, G60.9, M62.81 and M48.06 multivitamins w-minerals/lut(CENTRUM SILVER TAB) Take one(1) tablet daily. (Patient not taking: Reported on 08/04/2023) No current facility-administered medications on file prior to visit. Social History Social History Tobacco Use Smoking status: Never Passive exposure: Never Smokeless tobacco: Never Vaping Use Vaping Use: Never used Substance Use Topics Alcohol use: Not Currently Drug use: Never Review of Symptoms REVIEW OF SYSTEMS SEE HPI EXAM: BP 115/68 Pulse 69 Resp 16 Wt 127.5 kg (281 lb) BMI 39.19 kg/m General Appearance: Well appearing, alert, in no acute distress, well-hydrated, well nourished.. Lungs: Lungs clear to auscultation. No wheezing, rhonchi, rales.. Heart: RRR without murmur, gallop, or rubs. No ectopy. Musculoskeletal: No joint swelling, deformity, or tenderness. Peripheral Pulses: Normal. Health Maintenance List Covid-19 Vaccine( season) due on 02/21/2023 Advance Directive Discussion due on 06/23/2023 Behavioral Health Screening Never done RSV Vaccine(1 - 1-dose 60+ series) due on 03/23/2024 Shingrix Vaccine(1 of 2) due on 04/09/2024 DTaP,Tdap,Td Vaccine(2 - Td or Tdap) due on 02/01/2025 Diabetes Screening due on 09/28/2026 Influenza Vaccine Completed Pneumococcal Vaccine: 65+ Completed HPV Vaccine Aged Out Data reviewed Latest Ref Rng 09/29/2023 Protein, Total 6.3 - 8.0 g/dL 6.4 Albumin 3.9 - 4.9 g/dL 3.9 Calcium 8.5 - 10.2 mg/dL 9.2 Bilirubin, Total 0.2 - 1.3 mg/dL 0.5 Alkaline Phosphatase 38 - 113 U/L 99 AST 14 - 40 U/L 8 (L) ALT 10 - 54 U/L 10 Glucose 74 - 99 mg/dL 194 (H) BUN 9 - 24 mg/dL 25 (H) Creatinine 0.73 - 1.22 mg/dL 0.86 Sodium 136 - 144 mmol/L 142 Potassium 3.7 - 5.1 mmol/L 4.2 Chloride 97 - 105 mmol/L 105 CO2 22 - 30 mmol/L 26 Anion Gap 9 - 18 mmol/L 11 eGFR >=60 mL/min/1.73m 86 Total Cholesterol, Nonfasting <200 mg/dL 155 Triglycerides, Nonfasting <150 mg/dL 187 (H) HDL Cholesterol, Nonfasting >39 mg/dL 38 (L) LDL Cholesterol, Nonfasting <100 mg/dL 80 Non HDL Cholesterol, Nonfasting <130 mg/dL 117 VLDL Cholesterol, Nonfasting <30 mg/dL 37 (H) Total Chol/HDL Ratio, Nonfasting <5.10 mg/dL 4.08 LDL/HDL Ratio, Nonfasting <2.54 mg/dL 2.11 Hemoglobin A1C 4.3 - 5.6 % 5.5 Estimated Average Glucose mg/dL 111 TSH 0.270 - 4.200 mIU/L 1.000 ASSESSMENT/PLAN: 1. Essential hypertension - ICD9: 401.9, ICD10: I10 (primary diagnosis) - Controlled - Continue current medications - Recommend home blood pressure monitoring, to bring results to next visit - Encouraged sodium restriction, DASH or Mediterranean diet - Recommend regular aerobic exercise - Discussed need for and benefit of weight loss. BMI 39.19 kg/(m^2) - COMPREHENSIVE METABOLIC PANEL 2. Chronic insomnia - ICD9: 780.52, ICD10: F51.04 - TRAZODONE 50 MG TABLET 3. Mixed hyperlipidemia - ICD9: 272.2, ICD10: E78.2 - Controlled - Continue current medications - Counseled on healthy diet and regular exercise - Discussed need for and benefit of weight loss. BMI 39.19 kg/(m^2) - LIPID PANEL, NONFASTING 4. Gastroesophageal reflux disease without esophagitis - ICD9: 530.81, ICD10: K21.9 - Discussed lifestyle modifications including losing weight, limiting caffeine, no meals three hours before sleep, and head of bed elevation 5. Bilateral leg edema - ICD9: 782.3, ICD10: R60.0 -continue lasix 6. Mild pulmonary hypertension (HCC) - ICD9: 416.8, ICD10: I27.20 -Continue current medication regimen -Follows with cardiology 7. BPH with obstruction/lower urinary tract symptoms - ICD9: 600.01, 599.69, ICD10: N40.1, N13.8 -Follows with urology 8. Pulmonary nodule - ICD9: 793.11, ICD10: R91.1 -Will need repeat low dose CT in June 2024 9. Acquired hypothyroidism - ICD9: 244.9, ICD10: E03.9 - Instructed patient on importance of taking on an empty stomach either first thing in the morning or at bedtime. - continue current dose of Synthroid 0.125 mg - THYROID STIMULATING HORMONE 10. Elevated fasting blood sugar - ICD9: 790.21, ICD10: R73.01 - HEMOGLOBIN A1C 11. Medication management - ICD9: V58.69, ICD10: Z79.899 - COMPLETE BLOOD COUNT AND DIFFERENTIAL Valerie Deshpande APRN.[employer]TEGRATED [employer] DESIGN ENGINEER [facility] in [facility] Procedure note* Lane Ochoa Jr., MD - 09/10/2023 2:49 PM EDT CYSTOSCOPY PROCEDURE NOTE: Regan Arango is a 82 year old male who presents with follow up bladder tumor for cystoscopy. Pt ID verified with patient: Yes Fire risk assessment done Procedure verified with patient: Yes Procedure confirmed with physician and child support specialist: Yes UNIVERSAL PROTOCOL / SAFETY CHECKLIST Procedure to be Performed: cystoscopy Sign In: A Moment of CARE was completed. Personnel directly involved with the procedure wore the appropriate PPE (Personal Protective Equipment). Patient/Surrogate Stated/Verified: PATIENT VERIFIED(optional for EMERGENT procedures): Patient name, Date of , Relevant allergies, and The intended procedure Time Out Communication: Intended patient and procedure match the source documents. Consent documented and matches the intended procedure. Sign Out: SIGN OUT (optional for EMERGENT procedures): No specimen collected. Lane Ochoa Jr, MD Pre procedure dx: bladder cancer Post procedure dx: same A urinalysis was performed revealing no evidence of infection. The benefits, risks, alternatives of the cystoscopy procedure and personnel were discussed with thepatient. The verbal consent was obtained and the patient agrees to proceed. Procedure: The patient was placed on the procedure table in the supine position and prepped and draped in the usual sterile fashion. 2% Lidocaine Jelly was placed per urethra as an anesthetic in the standard fashion. Once adequate local anesthesia was achieved, the tip of the flexible cystoscope was carefully placed into the urethra under direct visual guidance. The scope was negotiated through the pendulous urethra to the level of the bulbar urethra with no evidence of stricture. The verumontanum came into view and the scope was negotiated through the prostatic urethra which showed evidence of a patent prostatic urethra. The bladder was entered and careful dia endoscopy was carried out. The posterior, superior and lateral topete and dome of the bladder were all well visualized and the scope was retroflexed upon itself. The findings were consistent with no evidence of bladder mucosal pathology. At the conclusion of the procedure, the flexible cystoscope was removed atraumatically. The patienttolerated the procedure without complications. Patient was given standard post-procedure instructions, and was directed to complete the course of oral antibiotics and increase oral fluid intake as directed. ASSESSMENT/PLAN: [address] Ochoa Jr, MD documented in this encounterPe[facility]03-19-2024 Nurse Note* Yunier Washington Ma - 09/09/2023 1:41 PM EDT CYSTOSCOPY PROCEDURE NOTE: Regan Arango is a 82 year old male who presents with follow up bladder tumor and BPH. Pt ID verified with patient: Yes Procedure verified with patient: Yes Procedure confirmed with physician and child support specialist: Yes Sign In History and Physical Exam reviewed and is unchanged. Primary Diagnosis: Malignant Neoplasm of the Bladder, History of Bladder CA, and BPH w/ Obstruction Informed Consent Discussed: Yes Sign in Communication: Completed Time Out: Team Confirms the Correct Patient, Correct Procedure; Cystoscopy, Correct Site and Site Marking, Correct Position (if applicable). Affirmation of Time Out: N/A Sign Out: Sign Out Discussion: Completed Physician: Dr. Lane Ochoa A urinalysis was performed revealing no evidence of infection. The benefits, risks, alternatives of the cystoscopy procedure and personnel were discussed with thepatient. The verbal consent was obtained and the patient agrees to proceed. Prophylaxis with Keflex 500 mg was given to the patient prior to the procedure. Procedure: The patient was placed on the procedure table in the supine position and prepped and draped in the usual sterile fashion. 2% Lidocaine Jelly was placed per urethra as an anesthetic in the standard fashion. Once adequate local anesthesia was achieved, the tip of the flexible cystoscope was carefully placed into the urethra under direct visual guidance. The scope was negotiated through the pendulous urethra to the level of the bulbar urethra with no evidence of stricture. The verumontanum came into view and the scope was negotiated through the prostatic urethra which showed evidence of a patent prostatic urethra. The bladder was entered and careful dia endoscopy was carried out. The posterior, superior and lateral topete and dome of the bladder were all well visualized and the scope was retroflexed upon itself. The findings were consistent with no evidence of bladder mucosal pathology. Clear urine ejected from the Right and Left ureteral orifice(s) was noted. At the conclusion of the procedure, the flexible cystoscope was removed atraumatically. The patienttolerated the procedure without complications. Patient was given standard post-procedure instructions, and was directed to complete the course of oral antibiotics and increase oral fluid intake as directed. Operation: Cystoscopy Anatomic Site: Bladder, Laterality: Bilateral Approach: Endoscopic Device: Flexible cystoscope Qualifier: None ASSESSMENT/PLAN: ASSESSMENT/PLAN: 1. BPH with obstruction/lower urinary tract symptoms - ICD9: 600.01, 599.69, ICD10: N40.1, N13.8 (primary diagnosis) - CEPHALEXIN 500 MG CAPSULE - LIDOCAINE 2 % MUCOSAL JELLY IN APPLICATOR 2. Malignant neoplasm of urinary bladder, unspecified site (HCC) - ICD9: 188.9, ICD10: C67.9 - CEPHALEXIN 500 MG CAPSULE - LIDOCAINE 2 % MUCOSAL JELLY IN APPLICATOR Yunier Washington Ma The patient has been instructed to return to the office in approximately one year for follow-up. Yunier Washington Ma [facility] History of Present illness Narrative* Lane Ochoa Jr., MD - 08/27/2023 8:37 AM EST ESTABLISHED PATIENT OFFICE VISIT HPI Regan rAango is a 82 year old male who presents ho bladder cancer Previous note - 5 years out Path low grade Ta Renal US and cysto neg 09/19/20 - having urgency. On finasteride. Has not tried flomax 08/26/23 - lost to follow up due to covid. On double flomax and finasteride. Having mainly urgency/UI. No hematuria. Here for cysto. UA+ today. LAB: Creatinine Date Value Ref Range Status 03/26/2023 0.94 0.73 - 1.22 mg/dL Final PSA (ng/mL) Date Value 03/19/2022 0.14 10/29/2019 0.31 11/25/2018 0.22 12/03/2017 0.31 12/15/2015 0.22 08/22/2014 1.36 Glucose, Urine Date Value 12/11/2021 Negative 03/13/2021 Negative mg/dL Bilirubin, Urine (no units) Date Value 12/11/2021 Negative 03/13/2021 Negative Ketones, Urine (no units) Date Value 12/11/2021 Negative 03/13/2021 Negative Specific Pepin, Ur (no units) Date Value 12/11/2021 1.016 03/13/2021 1.025 Hemoglobin/Blood,Ur Date Value 12/11/2021 Negative 03/13/2021 Negative pH, Urine (no units) Date Value 12/11/2021 6.0 03/13/2021 5.0 Protein, Urine (no units) Date Value 12/11/2021 Negative 03/13/2021 Negative Urobilinogen, Urine (EU) Date Value 03/28/2014 2 Nitrites (no units) Date Value 12/11/2021 Negative 03/13/2021 Negative Leukocytes (no units) Date Value 03/28/2014 trace WBC, Urine Date Value 12/11/2021 0-5 /HPF 03/13/2021 0-5 /HPF Color/Appearance (comment:) Date Value 03/28/2014 yellow MEDICATIONS: finasteride (PROSCAR) 5 mg tablet^Take 1 tablet by mouth once daily.^Disp: 90 tablet^Rfl: 1 tamsulosin (FLOMAX) 0.4 mg^Take 1 capsule by mouth daily at bedtime.^Disp: 90 capsule^Rfl: 3 pravastatin (PRAVACHOL) 20 mg tablet^Take 1 tablet by mouth once daily.^Disp: 90 tablet^Rfl: 1 lisinopril 2.5 mg tablet^Take 1 tablet by mouth once daily.^Disp: 90 tablet^Rfl: 1 DULoxetine (CYMBALTA) 30 mg capsule^Take 1 capsule by mouth once daily.^Disp: 90 capsule^Rfl: 1 Fluorouracil 5 % cream^^Disp: ^Rfl: potassium chloride ER (KLOR-CON M20) 20 mEq tablet^Take 1 tablet by mouth once daily.^Disp: 90 tablet^Rfl: 3 cyanocobalamin (VITAMIN B-12) 1,000 mcg tab^Take 1 tablet by mouth once daily.^Disp: 90 tablet^Rfl:3 gabapentin (NEURONTIN) 600 mg tablet^Take 2 tablets by mouth three times a day for 14 days.^Disp: 84 tablet^Rfl: 0 levothyroxine (LEVOXYL) 125 mcg tablet^Take one tab daily Mon-Fri and two on Friday and FridayTake on empty stomach. For thyroid.^Disp: 108 tablet^Rfl: 1 traZODone (DESYREL) 50 mg tablet^Take 1 tablet by mouth daily at bedtime.^Disp: 90 tablet^Rfl: 1 furosemide (LASIX) 20 mg tablet^Take 1 tablet by mouth once daily.^Disp: 90 tablet^Rfl: 1 clopidogrel (PLAVIX) 75 mg tablet^Take 1 tablet by mouth once daily.^Disp: 90 tablet^Rfl: 1 ammonium lactate (LAC-HYDRIN) 12 % lotion^Apply to affected area twice daily.^Disp: 396 g^Rfl: 5 vit C/E/Zn/coppr/lutein/zeaxan (PRESERVISION AREDS-2 ORAL)^Take by mouth two times a day.^Disp: ^Rfl: ZINC ORAL^Take by mouth once daily.^Disp: ^Rfl: COMPOUNDED PRESCRIPTION^rollator walker #: one Dx: I63.50, Z86.73, R26.89, G60.9, M62.81 and M48.06^Disp: 1 Device^Rfl: 0 cephALEXin (KEFLEX) 500 mg capsule^Take 1 capsule by mouth three times a day for 10 days.^Disp: 30 capsule^Rfl: 0 gabapentin (NEURONTIN) 600 mg tablet^Take 2 tablets by mouth three times a day for 10 days.^Disp: 60 tablet^Rfl: 0 (Patient not taking: Reported on 08/26/2023) multivitamins w-minerals/lut(CENTRUM SILVER TAB)^Take one(1) tablet daily.^Disp: ^Rfl: 0 (Patient not taking: Reported on 08/04/2023) REVIEW OF SYSTEMS Review of Systems Constitutional: Negative. Respiratory: Negative. Cardiovascular: Negative. Gastrointestinal: Negative. Genitourinary: Negative. Skin: Negative. Neurological: Negative. Psychiatric/Behavioral: Negative. HISTORIES PAST MEDICAL HISTORY Diagnosis Date 1st degree AV block 09/08/2015 AC (acromioclavicular) joint arthritis 08/09/2009 Acquired hypothyroidism 04/03/2015 Actinic skin damage 03/08/2012 Acute, but ill-defined, cerebrovascular disease 07/13/2008 Advance directive discussed with patient 03/21/2022 Discussed 02/2022 Anemia 07/24/2015 Arthritis of knee 10/30/2011 At risk for falls 05/28/2019 Atypical nevus of thoracic region 02/03/2014 Balance problem 04/24/2014 Due to CVA in 2008 and right leg weakness Bilateral carotid artery stenosis 12/27/2021 US 12/2021: R 40-60% L 20-40% Bilateral leg edema 08/01/2014 Bladder cancer (HCC) 09/07/2014 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 (HCC) 07/13/2008 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 Diastasis recti 08/01/2014 Diverticulosis of colon (without mention of hemorrhage) Dupuytren's contracture of both hands 09/21/2012 Elevated fasting blood sugar 04/16/2010 Essential hypertension Essential hypertension Familial peripheral neuropathy 06/02/2015 Gait difficulty 04/29/2016 Gastroesophageal reflux disease without esophagitis 04/03/2015 Greater trochanteric bursitis 03/20/2016 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09/04/2012 History of bladder cancer 04/09/2023 History of CVA (cerebrovascular accident) 02/2008 residual weakness in right leg History of giant cell arteritis 03/29/2008 Hx of long-term use of blood thinners Irritated//Inflamed Seborrheic Keratosis 03/08/2012 Living will on file 03/21/2022 DPA: Sudarshan () Low back pain 01/13/2014 Low serum vitamin B12 04/16/2022 Lower urinary tract symptoms (LUTS) 08/02/2014 Lumbar stenosis with neurogenic claudication 01/13/[address] Starr Memory difficulties 04/12/2022 04/12/22 MMSE: 29/30 Mild pulmonary hypertension (HCC) 09/22/[address] Hamilton, not able to tolerate CPAP for JESSY. 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 Pain in both hands 12/19/2015 Postlaminectomy syndrome 05/08/2010 Premature supraventricular beats 09/08/2015 Pulmonary nodule 08/06/[address] [facility] on 08/01/22. Repeat in 3-6 months. Multiple nodules up to 7mm in size. Right leg weakness 04/25/2014 Sebaceous cyst 06/08/2009 Stasis dermatitis of both legs 06/02/2015 SVT (supraventricular tachycardia) (HCC) 07/17/2020 SVT (supraventricular tachycardia) (HCC) 07/17/2020 Thoracic or lumbosacral neuritis or radiculitis, unspecified 05/05/2009 Thumb pain, left 11/26/2017 Tinnitus 07/26/2017 Unspecified arthropathy, lower leg 10/12/2008 Venous insufficiency (chronic) (peripheral) 06/02/2015 Vertigo following cerebrovascular accident 07/23/2010 Viral warts, unspecified 04/09/2013 Xerosis cutis 09/04/2012 FAMILY HISTORY Problem Relation Age of Onset Hypertension Mother Stroke Mother other (headaches) Mother Ischemic Heart Disease Father Heart Brother SOCIAL HISTORY Social History Tobacco Use Smoking status: Never Smokeless tobacco: Never Vaping Use Vaping Use: Never used Substance Use Topics Alcohol use: Not Currently Drug use: Never PHYSICAL EXAMINATION General appearance: Well appearing, alert, in no acute distress, and well- hydrated, well nourished Skin: Skin color, texture, turgor normal, no suspicious rashes or lesions Respiratory:+ effort Cardiovascular: Not examined GI: Normal abdominal exam, Abdomen soft, non-tender. No masses, organomegaly Musculoskeletal: Negative Neuro: Negative Genitourinary: not examined Impression: (N40.1, N13.8) BPH with obstruction/lower urinary tract symptoms (primary encounter diagnosis) (C67.9) Malignant neoplasm of urinary bladder, unspecified site (HCC) Plan: Urine cx Keflex x 10 days started Reschedule cysto Lane Ochoa Jr, MD 08/27/2023 documented [facility]24 Miscellaneous Notes* Telephone Encounter - Taz Marie LPN - 08/14/2023 9:17 AM EST Pt's notified of same. Taz Marie LPN * Telephone Encounter - Jose Fam MD - 08/13/2023 9:33 PM EST Let patient know his thyroid lab is back within a normal range. No changes needed. documented in this encounterPe[facility]02-14-2024 Miscellaneous Notes* Telephone Encounter - Ange Mondragon APRN.MAREK FREGOSO - 08/06/2023 10:50 AM EST Orders signed - consulting pharm D on med options. Orders Placed This Encounter RX CONSULT TO OUTPATIENT PHARMACY Order Comments: Patient is on Potassium, had intolerance to Ditropan. Mybetriq - Gemtesa to expensive. Can you recommend any other options or cost savings? Ange Mondragon DNP, [employer]TE[employer]ATED [employer] DESIGN ENGINEER [facility] * Telephone Encounter - Kary Herrera LPN - 08/06/2023 10:25 AM EST Patient called, verified name and date of , regarding medication. mirabegron (MYRBETRIQ) 25 mg Tb24 90 tablet 0 08/04/2023 11/02/2023 Sig: Take 1 tablet by mouth once daily. Patient stated this medication was to expensive, cancelled the prescription. Patient states that Agne Mondragon stated he would send in another medication if this medication was to expensive. Patient would like alternative medication sent to [facility] Mail order. Please review and advise. Kary Herrera LPN August 06, 2023 10:27 AM documented in this encounterPe[facility]02-12-2024 Miscellaneous Notes* Addendum Note - Ange Mondragon APRN.CNP, DNP - 08/04/2023 4:19 PM ESTAddended by: ANGE MONDRAGON on: 08/04/2023 04:19 PM Modules accepted: Orders * Addendum Note - Ange Mondragon APRN.CNP, DNP - 08/04/2023 2:47 PM ESTAddended by: ANGE MONDRAGON on: 08/04/2023 02:47 PM Modules accepted: Orders documented in this encounterPe[facility]02-12-[facility]24 History of Present illness Narrative* Loni Quevedo LPN - 08/04/2023 3:47 PM EST Patient was taught Intermittent Self Cath per order of Ange Mondragon APRN, CNP, DNP. Patient was instructed and taken into the private bathroom with supplies. Patient was able to insert 16 Fr self coude cath into urethra without complication on the first try but with verbal cueing. Approximately 725mL yellow, somewhat cloudy urine returned. Patient tolerated well and verbalized understanding of the process. Patient is to do ISC according to discussion with Ange. Patient was given written instructions and our phone number in case of questions. Loni Quevedo LPN * Ange Mondragon APRN.CNP, DNP - 08/04/2023 1:30 PM EST [facility] MALE PATIENT - HISTORY AND PHYSICAL EXAMINATION PATIENT: Regan Arango (82 year old) 08/04/2023 PCP: Jose Fam MD CHIEF COMPLAINT: Hx of bladder cancer and BPH/LUTS HISTORY OF PRESENT ILLNESS: 82 year old year old male with Hx of bladder cancer and BPH/LUTs Prior patient of Dr. Ochoa. Last seen on August 2020. Has not seen Urology since that time. Previous note - 5 years out. Hx of bladder cancer - Path low grade Ta. Path on 09/01/2014 -Bladder neck lesion, biopsy (A) - Non-invasive low-grade urothelial carcinoma- Muscularis propria is present and not involved. Last RBUS and cysto neg 09/19/20 - having urgency. On finasteride. Given a trial of Flomax at that time. Continued on both Proscar and Flomax. Previously on Oxybutynin for OAB: + constipation. Stopped med in 2020. Nothing since that time. + Urgency. Has to wear a pad at times. URINARY: IRRITATIVE - BOTHERSOME FREQUENCY: No - URGENCY: Yes - INCONTINENCE: Stress No / Urge Yes OBSTRUCTIVE - FORCE OF STREAM: Average - HESITANCY: No - INTERMITTENCY: No - STRAINING: No - INCOMPLETE EMPTYING: No - DOUBLE VOIDING: No - POSTVOID DRIBBLING: No CURRENT URINARY STATUS: - INDWELLING CATHETER: No - CURRENT INTERMITTENT CATHETERIZATION: No - GROSS HEMATURIA: No - URINARY TRACT INFECTION: No Patient Entered Questionnaires: INTERNATIONAL PROSTATE SYMPTOM SCORE (I-PSS) 1)INCOMPLETE EMPTYING Over the past month, how often have you had a sensation of not emptying your bladder completely after you finished urinating? SCORE: 0- Not at all 2)FREQUENCY Over the past month, how often have you had to urinate again less than two hours after you finishedurinating? SCORE: 1- Less than 1 time in 5 3)INTERMITTENCY Over the past month, how often have you found you stopped and started again several times when you urinated? SCORE: 0- Not at all 4)URGENCY Over the past month, how often have you found it difficult to postpone urination? SCORE: 5- Almost always 5)WEAK STREAM Over the past month, how often have you had a weak stream? SCORE: 0- Not at all 6)STRAINING Over the past month, how often have you had to push or strain to begin urination SCORE: 0- Not at all 7)NOCTURIA Over the past month, how many times did you most typically get up to urinate from the time you wentto bed at night until the time you get up in the morning? SCORE:1 TOTAL I-PSS SCORE: 7 QUALITY OF LIFE DUE TO URINARY SYMPTOMS If you were to spend the rest of yur life with your urinary condition just the way it is now, how would you feel about that? 6- Terrible PROMIS Global Health PROMIS Global Health Scale 10/01/2022 05/21/2023 07/29/2023 Physical Health Percentile 10% 7% 10% Mental Health Percentile 63% 53% 73% Percentiles provide an indication of how the patient's score ranks in relation to the general population. Higher percentile rankings indicate better function/quality of life. 50th percentile is the average of the general population and indicates half of respondents had a worse score. HISTORY: PAST MEDICAL HISTORY Diagnosis Date 1st degree AV block 09/08/2015 AC (acromioclavicular) joint arthritis 08/09/2009 Acquired hypothyroidism 04/03/2015 Actinic skin damage 03/08/2012 Acute, but ill-defined, cerebrovascular disease 07/13/2008 Advance directive discussed with patient 03/21/2022 Discussed 02/2022 Anemia 07/24/2015 Arthritis of knee 10/30/2011 At risk for falls 05/28/2019 Atypical nevus of thoracic region 02/03/2014 Balance problem 04/24/2014 Due to CVA in 2008 and right leg weakness Bilateral carotid artery stenosis 12/27/2021 US 12/2021: R 40-60% L 20-40% Bilateral leg edema 08/01/2014 Bladder cancer (HCC) 09/07/2014 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 (HCC) 07/13/2008 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 Diastasis recti 08/01/2014 Diverticulosis of colon (without mention of hemorrhage) Dupuytren's contracture of both hands 09/21/2012 Elevated fasting blood sugar 04/16/2010 Essential hypertension Essential hypertension Familial peripheral neuropathy 06/02/2015 Gait difficulty 04/29/2016 Gastroesophageal reflux disease without esophagitis 04/03/2015 Greater trochanteric bursitis 03/20/2016 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09/04/2012 History of bladder cancer 04/09/2023 History of CVA (cerebrovascular accident) 02/2008 residual weakness in right leg History of giant cell arteritis 03/29/2008 Hx of long-term use of blood thinners Irritated//Inflamed Seborrheic Keratosis 03/08/2012 Living will on file 03/21/2022 DPA: Sudarshan () Low back pain 01/13/2014 Low serum vitamin B12 04/16/2022 Lower urinary tract symptoms (LUTS) 08/02/2014 Lumbar stenosis with neurogenic claudication 01/13/[address] Starr Memory difficulties 04/12/2022 04/12/22 MMSE: 2930 Mild pulmonary hypertension (HCC) 09/22/[address] Hamilton, not able to tolerate CPAP for JESSY. 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 Pain in both hands 12/19/2015 Postlaminectomy syndrome 05/08/2010 Premature supraventricular beats 09/08/2015 Pulmonary nodule 08/06/[address] at [facility] on 08/01/22. Repeat in 3-6 months. Multiple nodules up to 7mm in size. Right leg weakness 04/25/2014 Sebaceous cyst 06/08/2009 Stasis dermatitis of both legs 06/02/2015 SVT (supraventricular tachycardia) 07/17/2020 SVT (supraventricular tachycardia) 07/17/2020 Thoracic or lumbosacral neuritis or radiculitis, unspecified 05/05/2009 Thumb pain, left 11/26/2017 Tinnitus 07/26/2017 Unspecified arthropathy, lower leg 10/12/2008 Venous insufficiency (chronic) (peripheral) 06/02/2015 Vertigo following cerebrovascular accident 07/23/2010 Viral warts, unspecified 04/09/2013 Xerosis cutis 09/04/2012 PAST SURGICAL HISTORY Procedure Laterality Date 2D ECHO (EXEP) 08/2015 EF=64%, 1+ TR and mild Pulm HTN COLONOSCOPY FLX DX W/COLLJ SPEC WHEN PFRMD 02/06/2011 Colonoscopy, repeat 10 yrs CYSTO W/REMOVAL OF LESIONS MINOR <0.5CM 08/31/14 ESOPHAGOGASTRODUODENOSCOPY TRANSORAL DIAGNOSTIC 12/14/2018 EGD FASCT PALM W/WO Z-PLASTY TISSUE REARGMT/SKN GRFT Left 09/08/2018 Left 3rd finger fascietomy with skin graft, left 4th finger facietomy with local soft tissue rearrangements and trigger finger release L3-4 and L4-5 laminoforaminotomy 2009 LIGATION/BIOPSY TEMPORAL ARTERY 03-30-08 RIGHT, negitive. LUMBAR SPINE FUSION COMBINED 05/05/2015 MAL LESION FACE,EAR,EYEL 1.1-2CM 04/20/08 Exc. right lateral islam skin lesion and right forehead OPEN REPAIR OF ROTATOR CUFF ACUTE 2000 Rotator cuff repair left PAST SURGICAL HISTORY OF ingrown toe nail removed PAST SURGICAL HISTORY OF 1965 cyst removed from bottom of spine SHOULDER ARTHROSCOPY/SURGERY 08/02/2010 Open Rt subacromial decompression STRESS TEST 04/10/2015 WNL STRESS TEST NUCLEAR 07/09/2018 negative Social History Tobacco Use Smoking status: Never Smokeless tobacco: Never Vaping Use Vaping Use: Never used Substance Use Topics Alcohol use: Not Currently Drug use: Never FAMILY HISTORY Problem Relation Age of Onset Hypertension Mother Stroke Mother other (headaches) Mother Ischemic Heart Disease Father Heart Brother MEDICATIONS: Current Outpatient Medications Medication Sig pravastatin (PRAVACHOL) 20 mg tablet Take 1 tablet by mouth once daily. lisinopril 2.5 mg tablet Take 1 tablet by mouth once daily. DULoxetine (CYMBALTA) 30 mg capsule Take 1 capsule by mouth once daily. gabapentin (NEURONTIN) 600 mg tablet Take 2 tablets by mouth three times a day for 10 days. potassium chloride ER (KLOR-CON M20) 20 mEq tablet Take 1 tablet by mouth once daily. cyanocobalamin (VITAMIN B-12) 1,000 mcg tab Take 1 tablet by mouth once daily. levothyroxine (LEVOXYL) 125 mcg tablet Take one tab daily Fri-Fri and two on Friday and FridayTake on empty stomach. For thyroid. traZODone (DESYREL) 50 mg tablet Take 1 tablet by mouth daily at bedtime. furosemide (LASIX) 20 mg tablet Take 1 tablet by mouth once daily. clopidogrel (PLAVIX) 75 mg tablet Take 1 tablet by mouth once daily. ammonium lactate (LAC-HYDRIN) 12 % lotion Apply to affected area twice daily. vit C/E/Zn/coppr/lutein/zeaxan (PRESERVISION AREDS-2 ORAL) Take by mouth two times a day. ZINC ORAL Take by mouth once daily. COMPOUNDED PRESCRIPTION rollator walker #: one Dx: I63.50, Z86.73, R26.89, G60.9, M62.81 and M48.06 finasteride (PROSCAR) 5 mg tablet Take 1 tablet by mouth once daily. tamsulosin (FLOMAX) 0.4 mg Take 1 capsule by mouth daily at bedtime. mirabegron (MYRBETRIQ) 25 mg Tb24 Take 1 tablet by mouth once daily. Fluorouracil 5 % cream (Patient not taking: Reported on 08/04/2023) gabapentin (NEURONTIN) 600 mg tablet Take 2 tablets by mouth three times a day for 14 days. multivitamins w-minerals/lut(CENTRUM SILVER TAB) Take one(1) tablet daily. (Patient not taking: Reported on 08/04/2023) No current facility-administered medications for this visit. LABS: GLUCOSE UA (POCT) Negative 03/09/2019 BILIRUBIN UA (POCT) Small 03/09/2019 KETONE UA (POCT) Trace 03/09/2019 SPECIFIC GRAVITY UA (POCT) 1.020 03/09/2019 HEMOGLOBIN/BLOOD UA (POCT) Negative 03/09/2019 PH UA (POCT) 6.0 03/09/2019 PROTEIN UA (POCT) 30 03/09/2019 UROBILINOGEN UA (POCT) 2.0 03/09/2019 NITRITE UA (POCT) Negative 03/09/2019 LEUKOCYTES UA (POCT) Negative 03/09/2019 COLOR UA (POCT) Yellow 03/09/2019 CLARITY UA (POCT) Clear 03/09/2019 Creatinine Creatinine Date Value Ref Range Status 03/26/2023 0.94 0.73 - 1.22 mg/dL Final 09/23/2022 0.76 0.73 - 1.22 mg/dL Final 03/19/2022 0.94 0.73 - 1.22 mg/dL Final 12/10/2021 0.98 0.73 - 1.22 mg/dL Final PSA PSA (ng/mL) Date Value 03/19/2022 0.14 10/29/2019 0.31 11/25/2018 0.22 12/03/2017 0.31 12/15/2015 0.22 OFFICE DATA: POST-VOID RESIDUAL BLADDER VOLUME: YES, 0 cc Review of Systems: PAIN ASSESSMENT: CURRENTLY HAVING NO PAIN GENERAL: No weight loss, malaise or fevers GI: No nausea, vomiting MUSCULOSKELETAL: Negative for generalized joint pain SKIN: Negative for rash HEMATOLOGY/LYMPHOLOGY: Negative for swollen nodes All other systems reviewed and noncontributory PHYSICAL EXAMINATION: VITALS: BP 118/66 (BP Site: Right Arm, BP Position: Sitting, BP Cuff Size: Large Adult) Pulse 68 Temp 36.3 C (97.4 F) (Temporal) Resp 14 Ht 180.3 cm (5' 11) Wt 127.3 kg (280 lb 9.6 oz) SpO2 94% BMI 39.14 kg/m GENERAL: alert, no distress, normal affect RESPIRATORY: normal effort ABDOMEN: soft, non-tender GENITAL: - PENIS: circumcised, no penile plaques, no skin lesions + buried penis - SCROTUM: no rashes, no masses, no edema. Mild hydrocele. - TESTES: nl size, nl consistency, no mass EXTREMITIES: normal SKIN: normal NEUROLOGIC: normal ASSESSMENT/PLAN: 1. BPH with obstruction/lower urinary tract symptoms - ICD9: 600.01, 599.69, ICD10: N40.1, N13.8 (primary diagnosis) 82-year-old male with a history of BPH/LUTS and overactive bladder. History of bladder cancer diagnosed in 2014. Patient of Dr. Ochoa. In 2020 he had stopped his oxybutynin due to constipation and potassium supplementation. Continued on Proscar and Flomax. Worse symptom over the past 1 to 3 years has been urinary urgency. PVR 0 mL Plan: Trial of Myrbetriq Continue with Flomax and Proscar Urinalysis with next labs - POST VOID RESIDUAL - FINASTERIDE 5 MG TABLET - TAMSULOSIN 0.4 MG CAPSULE - URINALYSIS, WITH MICROSCOPIC 2. OAB (overactive bladder) - ICD9: 596.51, ICD10: N32.81 82-year-old male with a history of BPH/LUTS and overactive bladder. History of bladder cancer diagnosed in 2014. Patient of Dr. Ochoa. In 2020 he had stopped his oxybutynin due to constipation and potassium supplementation. Continued on Proscar and Flomax. Worse symptom over the past 1 to 3 years has been urinary urgency. PVR 0 mL Plan: Trial of Myrbetriq Continue with Flomax and Proscar Urinalysis with next labs - MIRABEGRON ER 25 MG TABLET,EXTENDED RELEASE 24 HR - URINALYSIS, WITH MICROSCOPIC 3. History of bladder cancer - ICD9: V10.51, ICD10: Z85.51 Chronic - stable Will send Dr. 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 + obesity contributes to his buried penis Recommend diet & weight loss 5. Screening for genitourinary condition - ICD9: V81.6, ICD10: Z13.89 PVR = 0ml - POST VOID RESIDUAL 6. At risk for falls - ICD9: V15.88, ICD10: Z91.81 Uses roller walker for balance. High risk for falls. 7. Urgency of urination - ICD9: 788.63, ICD10: R39.15 82y/o male with a hx of bladder cancer. Sees Dr. Ochoa. Due for updated Cysto. Having urgency . Discussed case with Dr. Ochoa. He recommends updated Cysto. Will schedule for [facility]. - [facility]NO[facility] I spent a total of 38 minutes on the date of the service which included preparing to see the patient, [id number] patient care, completing clinical documentation, performing a medically appropriate examination, counseling and educating the patient/family/caregiver and ordering medications, tests, or procedures. Ange Mondragon DNP, ZENOBIA Department of Urology [facility] * Loni Quevedo LPN - 08/04/2023 1:18 PM EST Verified name and date of . CC Post Void Residual HPI: Mayra dieudonne is here now for an appointment with Eliazar Myers APRN, DNP Procedure: Explained procedure to patient and verbalizes understanding. Performed a PVR. Patient attempted to urinate but states he was not able to give specimen. Results of scan: 0 mL The patient tolerated the procedure well. Plan: Appointment with Ange. documented in this encounterPe[facility]02-12-2024 Miscellaneous Notes* Telephone Encounter - Ange Mondragon APRN.CNP, DNP - 08/04/2023 2:48 PM EST 82y/o male with a hx of bladder cancer. Sees Dr. Ochoa. Due for updated Cysto. Having urgency . Discussed case with Dr. Ochoa. He recommends updated Cysto. Will schedule for [facility]. Please call patient and let him know Dr. Ochoa recommends an updated Cystoscopy. Ange Mondragon DNP, CNP Department [facility] documented in this encounterPeoples [facility]02-12-2024 Instructions* Patient Instructions* Ange Mondragon APRN.CNP, DNP - 08/04/2023 2:04 PM EST Trial of Mybetriq for OAB symptoms. follow up in 8 weeks with Ange Mondragon APRN.MAREK FREGOSO Continue with Flomax and Proscar. For OAB: Recommend behavioral therapies (e.g., bladder training, bladder control strategies, pelvic floor muscle training, fluid management) ? 3-adrenoceptor agonists: Mirabegron and Gemtesa are options. These are typically not covered by most commercial insurance plans. Sacral neuromodulation (SNS) as third-line treatment in a carefully selected patient population characterized by severe refractory OAB symptoms or patients who are not candidates for second-line therapy and are willing to undergo a surgical procedure Healthy Habits: Recommend regular physical activity, nutrition and healthy eating habits. Consume a variety of foods every day focusing on fruits, vegetables and lean meats). Eat foods low in fat, saturated fat and cholesterol. Eat a limited amount of salt and sodium. Drink adequate amounts of water and limit sugary drinks. Exercise portion control in meal selection. Establish a mindset of a wellness approach to health. Thank you for allowing me to provide your care today. I look forward to seeing you again and maintaining your health. Ange Mondragon APRN.MAREK FREGOSO documented in this encounterPe[facility]02-08-2024 Miscellaneous Notes* Telephone Encounter - Pau Joel LPN - 07/31/2023 1:51 PM EST Patient has been identified by name and date of : Yes, Patient phones for refill(s): Requested Prescriptions Pending Prescriptions Disp Refills pravastatin (PRAVACHOL) 20 mg tablet 90 tablet 1 Sig: Take 1 tablet by mouth once daily. lisinopril 2.5 mg tablet 90 tablet 1 Sig: Take 1 tablet by mouth once daily. DULoxetine (CYMBALTA) 30 mg capsule 90 capsule 1 Sig: Take 1 capsule by mouth once daily. Date of last office visit in primary care: 05/23/2023 Date of next office visit in primary care: 10/09/2023 Please advise. Thank you. Pau Joel LPN. documented in this encounterPeoples Hospital01-29-2024 Miscellaneous Notes* Telephone Encounter - Kimmy Eastman Cma - 07/21/2023 9:46 AM EST No answer and VM full, will try back later Kimmy Eastman Cma * Telephone Encounter - Valerie Deshpande APRN.CNP - 07/21/2023 9:23 AM EST Please let patient know their CT is normal. documented in this encounterPeoples Hospital12-01-2023 History of Present illness Narrative* Jose Fam MD - 05/23/2023 1:40 PM EST Chief Complaint Patient presents with: Pain HPI Regan Arango is a 82 year old male who presents here today for injury to tailbone from fall. . 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 Pain scale? Discomfort. Pain Location? Tailbone Pain description? Dull ache. indicated that he is starting to have a bruise. 's indicated that patient does have a everett and fusion in back. She is concerned with any possibly injury. Patient's dermatology [place] in [place] was cancelled. Patient would like to see Dr. Colby Hurtado who is local. Past medical history, appointments, medications, allergies reviewed. Previous Medical History PAST MEDICAL HISTORY Diagnosis Date 1st degree AV block 09/08/2015 AC (acromioclavicular) joint arthritis 08/09/2009 Acquired hypothyroidism 04/03/2015 Actinic skin damage 03/08/2012 Acute, but ill-defined, cerebrovascular disease 07/13/2008 Advance directive discussed with patient 03/21/2022 Discussed 02/2022 Anemia 07/24/2015 Arthritis of knee 10/30/2011 At risk for falls 05/28/2019 Atypical nevus of thoracic region 02/03/2014 Balance problem 04/24/2014 Due to CVA in 2008 and right leg weakness Bilateral carotid artery stenosis 12/27/2021 US 12/2021: R 40-60% L 20-40% Bilateral leg edema 08/01/2014 Bladder cancer (HCC) 09/07/2014 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 (HCC) 07/13/2008 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 Diastasis recti 08/01/2014 Diverticulosis of colon (without mention of hemorrhage) Dupuytren's contracture of both hands 09/21/2012 Elevated fasting blood sugar 04/16/2010 Essential hypertension Essential hypertension Familial peripheral neuropathy 06/02/2015 Gait difficulty 04/29/2016 Gastroesophageal reflux disease without esophagitis 04/03/2015 Greater trochanteric bursitis 03/20/2016 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09/04/2012 History of bladder cancer 04/09/2023 History of CVA (cerebrovascular accident) 02/2008 residual weakness in right leg History of giant cell arteritis 03/29/2008 Hx of long-term use of blood thinners Irritated//Inflamed Seborrheic Keratosis 03/08/2012 Living will on file 03/21/2022 DPA: Sudarshan () Low back pain 01/13/2014 Low serum vitamin B12 04/16/2022 Lower urinary tract symptoms (LUTS) 08/02/2014 Lumbar stenosis with neurogenic claudication 01/13/[address] Starr Memory difficulties 04/12/2022 04/12/22 MMSE: 29/30 Mild pulmonary hypertension (HCC) 09/22/[address] Hamilton, not able to tolerate CPAP for JESSY. 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 Pain in both hands 12/19/2015 Postlaminectomy syndrome 05/08/2010 Premature supraventricular beats 09/08/2015 Pulmonary nodule 08/06/[address] at [facility] on 08/01/22. Repeat in 3-6 months. Multiple nodules up to 7mm in size. Right leg weakness 04/25/2014 Sebaceous cyst 06/08/2009 Stasis dermatitis of both legs 06/02/2015 SVT (supraventricular tachycardia) 07/17/2020 Thoracic or lumbosacral neuritis or radiculitis, unspecified 05/05/2009 Thumb pain, left 11/26/2017 Tinnitus 07/26/2017 Unspecified arthropathy, lower leg 10/12/2008 Venous insufficiency (chronic) (peripheral) 06/02/2015 Vertigo following cerebrovascular accident 07/23/2010 Viral warts, unspecified 04/09/2013 Xerosis cutis 09/04/2012 Previous Surgical History PAST SURGICAL HISTORY Procedure Laterality Date 2D ECHO (EXEP) 08/2015 EF=64%, 1+ TR and mild Pulm HTN COLONOSCOPY FLX DX W/COLLJ SPEC WHEN PFRMD 02/06/2011 Colonoscopy, repeat 10 yrs CYSTO W/REMOVAL OF LESIONS MINOR <0.5CM 08/31/14 ESOPHAGOGASTRODUODENOSCOPY TRANSORAL DIAGNOSTIC 12/14/2018 EGD FASCT PALM W/WO Z-PLASTY TISSUE REARGMT/SKN GRFT Left 09/08/2018 Left 3rd finger fascietomy with skin graft, left 4th finger facietomy with local soft tissue rearrangements and trigger finger release L3-4 and L4-5 laminoforaminotomy 2009 LIGATION/BIOPSY TEMPORAL ARTERY 03-30-08 RIGHT, negitive. LUMBAR SPINE FUSION COMBINED 05/05/2015 MAL LESION FACE,EAR,EYEL 1.1-2CM 04/20/08 Exc. right lateral islam skin lesion and right forehead OPEN REPAIR OF ROTATOR CUFF ACUTE 2000 Rotator cuff repair left PAST SURGICAL HISTORY OF ingrown toe nail removed PAST SURGICAL HISTORY OF 1965 cyst removed from bottom of spine SHOULDER ARTHROSCOPY/SURGERY 08/02/2010 Open Rt subacromial decompression STRESS TEST 04/10/2015 WNL STRESS TEST NUCLEAR 07/09/2018 negative Family History FAMILY HISTORY Problem Relation Age of Onset Hypertension Mother Stroke Mother other (headaches) Mother Ischemic Heart Disease Father Heart Brother Patient Allergies ALLERGIES Allergen Reactions Ditropan [Oxybutyni* Other: See Comments Nausea, brain fog, increased weakness, decreased appetite, and increased restless leg symptoms. Prednisone Other: See Comments Had GI problems, headaches. Patient states he was on high dose for almost 90 days Current Medications Current Outpatient Medications on File Prior to Visit Medication Sig nystatin (MYCOSTATIN) powder Apply 1 application to affected area four times daily for 14 days. levothyroxine (LEVOXYL) 125 mcg tablet Take one tab daily Fri-Fri and two on FridayTake on empty stomach. For thyroid. traZODone (DESYREL) 50 mg tablet Take 1 tablet by mouth daily at bedtime. furosemide (LASIX) 20 mg tablet Take 1 tablet by mouth once daily. clopidogrel (PLAVIX) 75 mg tablet Take 1 tablet by mouth once daily. finasteride (PROSCAR) 5 mg tablet Take 1 tablet by mouth once daily. pravastatin (PRAVACHOL) 20 mg tablet Take 1 tablet by mouth once daily. lisinopril 2.5 mg tablet Take 1 tablet by mouth once daily. DULoxetine (CYMBALTA) 30 mg capsule Take 1 capsule by mouth once daily. gabapentin (NEURONTIN) 600 mg tablet Take 2 tablets by mouth three times daily for 180 days. tamsulosin (FLOMAX) 0.4 mg TAKE 1 CAPSULE ONE TIME DAILY 30 MINUTES AFTER THE SAME MEAL EACH DAY ammonium lactate (LAC-HYDRIN) 12 % lotion Apply to affected area twice daily. vit C/E/Zn/coppr/lutein/zeaxan (PRESERVISION AREDS-2 ORAL) Take by mouth. ZINC ORAL Take by mouth once daily. potassium chloride ER (KLOR-CON M20) 20 mEq tablet Take 1 tablet by mouth once daily. cyanocobalamin (VITAMIN B-12) 1,000 mcg tab Take 1 tablet by mouth once daily. COMPOUNDED PRESCRIPTION rollator walker #: one Dx: I63.50, Z86.73, R26.89, G60.9, M62.81 and M48.06 multivitamins w-minerals/lut(CENTRUM SILVER TAB) Take one(1) tablet daily. No current facility-administered medications on file prior to visit. Social History Social History Tobacco Use Smoking status: Never Smokeless tobacco: Never Vaping Use Vaping Use: Never used Substance Use Topics Alcohol use: No Drug use: No Review of Symptoms REVIEW OF SYSTEMS See HPI EXAM: BP 130/78 (BP Site: Right Arm, BP Position: Sitting, BP Cuff Size: Large Adult) Pulse 64 Temp 36.4 C (97.6 F) (Tympanic) Resp 16 Wt 129.3 kg (285 lb) BMI 39.20 kg/m Musculoskeletal: there is a bruise over the left medial butt cheek. Not tender and no hematoma. He has very mild tenderness over the coccyx but no tenderness over the sacrum or lower lumber spine. . Health Maintenance List Covid-19 Vaccine(2022- season) due on 02/21/2023 RSV Vaccine(1 - 1-dose 60+ series) due on 03/23/2024 Shingrix Vaccine(1 of 2) due on 04/09/2024 DTaP,Tdap,Td Vaccine(2 - Td or Tdap) due on 02/01/2025 Diabetes Screening due on 03/26/2026 Influenza Vaccine Completed Advance Directive Discussion Completed Depression Assessment Completed Pneumococcal Vaccine: 65+ Completed Data reviewed A/P ASSESSMENT/PLAN: 1. Coccyxdynia - ICD9: 724.79, ICD10: M53.3 - discussed with patient that I could order a x-ray but with the minimal pain would not expect to find any issues and the care would still be conservative as discussed. Patient was ok with not getting an x-ray. F/u if any changes otherwise next routine; Jose Fam MD documented in [facility] encounter[facility]11-19-2023 History of Present illness Narrative* Aisha Spence FRANCY.INTEGRATED CIRCUIT DESIGN ENGINEER - 05/11/2023 2:52 PM EST Images from the original note were not included. Subjective Patient came in with complaints of painful rash in groin and under abdominal fold. Patient says he noticed it today. Patient says it is very red. Patient denies any other symptoms at this time such as fever nausea vomiting chills. The history is provided by the patient. No healthcare interpreter was used. Rash Review of Systems Constitutional: Negative. Skin: Positive for rash. Objective Physical Exam Exam conducted with a director digital advertising present. Constitutional: Appearance: Normal appearance. Pulmonary: Effort: Pulmonary effort is normal. Genitourinary: Comments: Patient was very excoriated in the areas marked above. Areas are blanchable. Some areas are very raw Neurological: Mental Status: He is alert. PAST MEDICAL HISTORY Diagnosis Date 1st degree AV block 09/08/2015 AC (acromioclavicular) joint arthritis 08/09/2009 Acquired hypothyroidism 04/03/2015 Actinic skin damage 03/08/2012 Acute, but ill-defined, cerebrovascular disease 07/13/2008 Advance directive discussed with patient 03/21/2022 Discussed 02/2022 Anemia 07/24/2015 Arthritis of knee 10/30/2011 At risk for falls 05/28/2019 Atypical nevus of thoracic region 02/03/2014 Balance problem 04/24/2014 Due to CVA in 2008 and right leg weakness Bilateral carotid artery stenosis 12/27/2021 US 12/2021: R 40-60% L 20-40% Bilateral leg edema 08/01/2014 Bladder cancer (HCC) 09/07/2014 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 (HCC) 07/13/2008 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 Diastasis recti 08/01/2014 Diverticulosis of colon (without mention of hemorrhage) Dupuytren's contracture of both hands 09/21/2012 Elevated fasting blood sugar 04/16/2010 Essential hypertension Essential hypertension Familial peripheral neuropathy 06/02/2015 Gait difficulty 04/29/2016 Gastroesophageal reflux disease without esophagitis 04/03/2015 Greater trochanteric bursitis 03/20/2016 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09/04/2012 History of bladder cancer 04/09/2023 History of CVA (cerebrovascular accident) 02/2008 residual weakness in right leg History of giant cell arteritis 03/29/2008 Hx of long-term use of blood thinners Irritated//Inflamed Seborrheic Keratosis 03/08/2012 Living will on file 03/21/2022 DPA: Sudarshan () Low back pain 01/13/2014 Low serum vitamin B12 04/16/2022 Lower urinary tract symptoms (LUTS) 08/02/2014 Lumbar stenosis with neurogenic claudication 01/13/[address] Starr Memory difficulties 04/12/2022 04/12/22 MMSE: Mild pulmonary hypertension (HCC) 09/22/[address] Hamilton, not able to tolerate CPAP for JESSY. 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 Pain in both hands 12/19/2015 Postlaminectomy syndrome 05/08/2010 Premature supraventricular beats 09/08/2015 Pulmonary nodule 08/06/[address] at [facility] on 08/01/22. Repeat in 3-6 months. Multiple nodules up to 7mm in size. Right leg weakness 04/25/2014 Sebaceous cyst 06/08/2009 Stasis dermatitis of both legs 06/02/2015 SVT (supraventricular tachycardia) 07/17/2020 Thoracic or lumbosacral neuritis or radiculitis, unspecified 05/05/2009 Thumb pain, left 11/26/2017 Tinnitus 07/26/2017 Unspecified arthropathy, lower leg 10/12/2008 Venous insufficiency (chronic) (peripheral) 06/02/2015 Vertigo following cerebrovascular accident 07/23/2010 Viral warts, unspecified 04/09/2013 Xerosis cutis 09/04/2012 PAST SURGICAL HISTORY Procedure Laterality Date 2D ECHO (EXEP) 08/2015 EF=64%, 1+ TR and mild Pulm HTN COLONOSCOPY FLX DX W/COLLJ SPEC WHEN PFRMD 02/06/2011 Colonoscopy, repeat 10 yrs CYSTO W/REMOVAL OF LESIONS MINOR <0.5CM 08/31/14 ESOPHAGOGASTRODUODENOSCOPY TRANSORAL DIAGNOSTIC 12/14/2018 EGD FASCT PALM W/WO Z-PLASTY TISSUE REARGMT/SKN GRFT Left 09/08/2018 Left 3rd finger fascietomy with skin graft, left 4th finger facietomy with local soft tissue rearrangements and trigger finger release L3-4 and L4-5 laminoforaminotomy 2009 LIGATION/BIOPSY TEMPORAL ARTERY 03-30-08 RIGHT, negitive. LUMBAR SPINE FUSION COMBINED 05/05/2015 MAL LESION FACE,EAR,EYEL 1.1-2CM 04/20/08 Exc. right lateral islam skin lesion and right forehead OPEN REPAIR OF ROTATOR CUFF ACUTE 2000 Rotator cuff repair left PAST SURGICAL HISTORY OF ingrown toe nail removed PAST SURGICAL HISTORY OF 1965 cyst removed from bottom of spine SHOULDER ARTHROSCOPY/SURGERY 08/02/2010 Open Rt subacromial decompression STRESS TEST 04/10/2015 WNL STRESS TEST NUCLEAR 07/09/2018 negative ALLERGIES Ditropan [Oxybutynin] and Prednisone MEDICATIONS levothyroxine (LEVOXYL) 125 mcg tablet Take one tab daily Fri-Fri and two on FridayTake on empty stomach. For thyroid. traZODone (DESYREL) 50 mg tablet Take 1 tablet by mouth daily at bedtime. furosemide (LASIX) 20 mg tablet Take 1 tablet by mouth once daily. clopidogrel (PLAVIX) 75 mg tablet Take 1 tablet by mouth once daily. finasteride (PROSCAR) 5 mg tablet Take 1 tablet by mouth once daily. pravastatin (PRAVACHOL) 20 mg tablet Take 1 tablet by mouth once daily. lisinopril 2.5 mg tablet Take 1 tablet by mouth once daily. DULoxetine (CYMBALTA) 30 mg capsule Take 1 capsule by mouth once daily. gabapentin (NEURONTIN) 600 mg tablet Take 2 tablets by mouth three times daily for 180 days. tamsulosin (FLOMAX) 0.4 mg TAKE 1 CAPSULE ONE TIME DAILY 30 MINUTES AFTER THE SAME MEAL EACH DAY ammonium lactate (LAC-HYDRIN) 12 % lotion Apply to affected area twice daily. vit C/E/Zn/coppr/lutein/zeaxan (PRESERVISION AREDS-2 ORAL) Take by mouth. ZINC ORAL Take by mouth once daily. potassium chloride ER (KLOR-CON M20) 20 mEq tablet Take 1 tablet by mouth once daily. cyanocobalamin (VITAMIN B-12) 1,000 mcg tab Take 1 tablet by mouth once daily. COMPOUNDED PRESCRIPTION rollator walker #: one Dx: I63.50, Z86.73, R26.89, G60.9, M62.81 and M48.06 multivitamins w-minerals/lut(CENTRUM SILVER TAB) Take one(1) tablet daily. nystatin (MYCOSTATIN) powder Apply 1 application to affected area four times daily for 14 days. mupirocin (BACTROBAN) 2 % ointment Apply to affected area three times a day for 10 days. FAMILY HISTORY Problem Relation Age of Onset Hypertension Mother Stroke Mother other (headaches) Mother Ischemic Heart Disease Father Heart Brother Social History Tobacco Use Smoking status: Never Smokeless tobacco: Never Vaping Use Vaping Use: Never used Substance Use Topics Alcohol use: No Drug use: No ASSESSMENT/PLAN: 1. Skin infection - ICD9: 686.9, ICD10: L08.9 (primary diagnosis) - MUPIROCIN 2 % TOPICAL OINTMENT for the raw areas 2. Rash - ICD9: 782.1, ICD10: R21 - NYSTATIN 100,000 UNIT/GRAM TOPICAL POWDER Patient was educated about proper use of medication and supportive therapies. Patient was educated to monitor for signs and symptoms of worsening and follow- up with primary care if anything changes or worsens. Patient was okay with this care plan. Aisha Spence APRN.CNP * Aisha Spence APRN.CNP - 05/11/2023 2:46 PM EST Subjective HPI ROS Objective Physical Exam documented in [facility]Pe[facility]11-10-2023 Miscellaneous Notes* Telephone Encounter - FranklinavrilTaz LPN - 05/02/2023 8:44 AM EST Pt's notified of results and instructions. She verbalizes understanding. Taz Garrison Nghia COTTON CLASSER * Telephone Encounter - Jose Fam MD - 05/02/2023 8:12 AM EST Let patient know the US of his neck arteries shows no increased narrowing. Will continue to monitoralong with current Tx. documented in this encounterPe[facility]10-30-2023 History of Present illness Narrative* Nikko Jose MD - 04/21/2023 5:19 PM EDT Images from the original note were not included. Nikko Jose MD Interventional Cardiology [address] [place] [address] Chief Complaint Patient presents with: Established Patient Follow-Up HISTORY OF PRESENT ILLNESS: Mr. Arango is a 82 year old male seen in the office for assessment management of prior history of supraventricular tachycardia hypertensive heart disease Patient had a Holter monitor which shows significant episodes of bradycardia ranging between 48 and50 with Wenke Bach heart block he comes in today for follow-up no syncope or presyncope but he describes extreme weakness and fatigue is worse compared to last year Cardiac Risk Factors age (male over 45, female over 55), hyperlipidemia, hypertension, family history of CAD PAST MEDICAL HISTORY Diagnosis Date 1st degree AV block 09/08/2015 AC (acromioclavicular) joint arthritis 08/09/2009 Acquired hypothyroidism 04/03/2015 Actinic skin damage 03/08/2012 Acute, but ill-defined, cerebrovascular disease 07/13/2008 Advance directive discussed with patient 03/21/2022 Discussed 02/2022 Anemia 07/24/2015 Arthritis of knee 10/30/2011 At risk for falls 05/28/2019 Atypical nevus of thoracic region 02/03/2014 Balance problem 04/24/2014 Due to CVA in 2008 and right leg weakness Bilateral carotid artery stenosis 12/27/2021 US 12/2021: R 40-60% L 20-40% Bilateral leg edema 08/01/2014 Bladder cancer (HCC) 09/07/2014 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 (HCC) 07/13/2008 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 Diastasis recti 08/01/2014 Diverticulosis of colon (without mention of hemorrhage) Dupuytren's contracture of both hands 09/21/2012 Elevated fasting blood sugar 04/16/2010 Essential hypertension Essential hypertension Familial peripheral neuropathy 06/02/2015 Gait difficulty 04/29/2016 Gastroesophageal reflux disease without esophagitis 04/03/2015 Greater trochanteric bursitis 03/20/2016 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09/04/2012 History of bladder cancer 04/09/2023 History of CVA (cerebrovascular accident) 02/2008 residual weakness in right leg History of giant cell arteritis 03/29/2008 Hx of long-term use of blood thinners Irritated//Inflamed Seborrheic Keratosis 03/08/2012 Living will on file 03/21/2022 DPA: Sudarshan () Low back pain 01/13/2014 Low serum vitamin B12 04/16/2022 Lower urinary tract symptoms (LUTS) 08/02/2014 Lumbar stenosis with neurogenic claudication 01/13/[address] Starr Memory difficulties 04/12/2022 04/12/22 MMSE: 29/30 Mild pulmonary hypertension (HCC) 09/22/[address] Hamilton, not able to tolerate CPAP for JESSY. 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 Pain in both hands 12/19/2015 Postlaminectomy syndrome 05/08/2010 Premature supraventricular beats 09/08/2015 Pulmonary nodule 08/06/[address] at [facility] on 08/01/22. Repeat in 3-6 months. Multiple nodules up to 7mm in size. Right leg weakness 04/25/2014 Sebaceous cyst 06/08/2009 Stasis dermatitis of both legs 06/02/2015 SVT (supraventricular tachycardia) 07/17/2020 Thoracic or lumbosacral neuritis or radiculitis, unspecified 05/05/2009 Thumb pain, left 11/26/2017 Tinnitus 07/26/2017 Unspecified arthropathy, lower leg 10/12/2008 Venous insufficiency (chronic) (peripheral) 06/02/2015 Vertigo following cerebrovascular accident 07/23/2010 Viral warts, unspecified 04/09/2013 Xerosis cutis 09/04/2012 PAST SURGICAL HISTORY Procedure Laterality Date 2D ECHO (EXEP) 08/2015 EF=64%, 1+ TR and mild Pulm HTN COLONOSCOPY FLX DX W/COLLJ SPEC WHEN PFRMD 02/06/2011 Colonoscopy, repeat 10 yrs CYSTO W/REMOVAL OF LESIONS MINOR <0.5CM 08/31/14 ESOPHAGOGASTRODUODENOSCOPY TRANSORAL DIAGNOSTIC 12/14/2018 EGD FASCT PALM W/WO Z-PLASTY TISSUE REARGMT/SKN GRFT Left 09/08/2018 Left 3rd finger fascietomy with skin graft, left 4th finger facietomy with local soft tissue rearrangements and trigger finger release L3-4 and L4-5 laminoforaminotomy 2009 LIGATION/BIOPSY TEMPORAL ARTERY 03-30-08 RIGHT, negitive. LUMBAR SPINE FUSION COMBINED 05/05/2015 MAL LESION FACE,EAR,EYEL 1.1-2CM 04/20/08 Exc. right lateral islam skin lesion and right forehead OPEN REPAIR OF ROTATOR CUFF ACUTE 2000 Rotator cuff repair left PAST SURGICAL HISTORY OF ingrown toe nail removed PAST SURGICAL HISTORY OF 1965 cyst removed from bottom of spine SHOULDER ARTHROSCOPY/SURGERY 08/02/2010 Open Rt subacromial decompression STRESS TEST 04/10/2015 WNL STRESS TEST NUCLEAR 07/09/2018 negative FAMILY HISTORY Problem Relation Age of Onset Hypertension Mother Stroke Mother other (headaches) Mother Ischemic Heart Disease Father Heart Brother Social History Tobacco Use Smoking status: Never Smokeless tobacco: Never Vaping Use Vaping Use: Never used Substance Use Topics Alcohol use: No Drug use: No ALLERGIES Allergen Reactions Ditropan [Oxybutyni* Other: See Comments Nausea, brain fog, increased weakness, decreased appetite, and increased restless leg symptoms. Prednisone Other: See Comments Had GI problems, headaches. Patient states he was on high dose for almost 90 days Medications: Current Outpatient Medications Medication Sig Dispense Refill levothyroxine (LEVOXYL) 125 mcg tablet Take one tab daily and two on FridayTake on empty stomach. For thyroid. 102 tablet 1 traZODone (DESYREL) 50 mg tablet Take 1 tablet by mouth daily at bedtime. 90 tablet 1 furosemide (LASIX) 20 mg tablet Take 1 tablet by mouth once daily. 90 tablet 1 clopidogrel (PLAVIX) 75 mg tablet Take 1 tablet by mouth once daily. 90 tablet 1 finasteride (PROSCAR) 5 mg tablet Take 1 tablet by mouth once daily. 90 tablet 1 pravastatin (PRAVACHOL) 20 mg tablet Take 1 tablet by mouth once daily. 90 tablet 1 lisinopril 2.5 mg tablet Take 1 tablet by mouth once daily. 90 tablet 1 DULoxetine (CYMBALTA) 30 mg capsule Take 1 capsule by mouth once daily. 90 capsule 1 gabapentin (NEURONTIN) 600 mg tablet Take 2 tablets by mouth three times daily for 180 days. 540 tablet 1 tamsulosin (FLOMAX) 0.4 mg TAKE 1 CAPSULE ONE TIME DAILY 30 MINUTES AFTER THE SAME MEAL EACH DAY 90capsule 3 ammonium lactate (LAC-HYDRIN) 12 % lotion Apply to affected area twice daily. 396 g 5 vit C/E/Zn/coppr/lutein/zeaxan (PRESERVISION AREDS-2 ORAL) Take by mouth. ZINC ORAL Take by mouth once daily. potassium chloride ER (KLOR-CON M20) 20 mEq tablet Take 1 tablet by mouth once daily. 90 tablet 3 cyanocobalamin (VITAMIN B-12) 1,000 mcg tab Take 1 tablet by mouth once daily. 90 tablet 3 COMPOUNDED PRESCRIPTION rollator walker #: one Dx: I63.50, Z86.73, R26.89, G60.9, M62.81 and M48.06 1 Device 0 multivitamins w-minerals/lut(CENTRUM SILVER TAB) Take one(1) tablet daily. 0 No current facility-administered medications for this visit. Review of Systems Constitutional: Negative for chills, diaphoresis, fever, malaise/fatigue and weight loss. HENT: Negative for congestion, ear discharge, ear pain, hearing loss, nosebleeds, sinus pain, sore throat and tinnitus. Eyes: Negative for blurred vision, double vision, photophobia, pain, discharge and redness. Respiratory: Negative for cough, hemoptysis, sputum production, shortness of breath, wheezing and stridor. Cardiovascular: Negative for chest pain, palpitations, orthopnea, claudication, leg swelling and PND. Gastrointestinal: Negative for abdominal pain, blood in stool, constipation, diarrhea, heartburn, melena, nausea and vomiting. Genitourinary: Negative for dysuria, flank pain, frequency, hematuria and urgency. Musculoskeletal: Negative for back pain, falls, joint pain, myalgias and neck pain. Skin: Negative for itching and rash. Neurological: Positive for dizziness. Negative for tingling, tremors, sensory change, speech change, focal weakness, seizures, loss of consciousness, weakness and headaches. Endo/Heme/Allergies: Negative for environmental allergies and polydipsia. Does not bruise/bleed easily. Psychiatric/Behavioral: Negative for depression, hallucinations, memory loss, substance abuse and suicidal ideas. The patient is not nervous/anxious and does not have insomnia. Physical Examination: Vitals:BP 114/66 Pulse 59 Wt 284 lb (128.8kg) SpO2 96% BP w/Orthostatic Vitals Date and Time Orthostatic BP Orthostatic Pulse BP Pulse BP Position BP Site BP Cuff Size 04/21/23 1345 -- -- 114/66 59 Sitting Right Arm Large Adult Last 2 Encounter Wt Readings: Date: Wt: 04/21/2023 128.8 kg (284 lb) 04/09/2023 128.8 kg (284 lb) Physical Exam Constitutional: General: He is not in acute distress. Appearance: He is not diaphoretic. HENT: Head: Normocephalic and atraumatic. Right Ear: External ear normal. Left Ear: External ear normal. Nose: Nose normal. Mouth/Throat: Mouth: Mucous membranes are moist. Eyes: General: Right eye: No discharge. Left eye: No discharge. Conjunctiva/sclera: Conjunctivae normal. Pupils: Pupils are equal, round, and reactive to light. Cardiovascular: Rate and Rhythm: Normal rate and regular rhythm. Heart sounds: Normal heart sounds, S1 normal and S2 normal. No murmur heard. No friction rub. No gallop. No S3 or S4 sounds. Pulmonary: Effort: Pulmonary effort is normal. No respiratory distress. Breath sounds: Normal breath sounds. No wheezing or rales. Chest: Chest wall: No tenderness. Musculoskeletal: General: Normal range of motion. Cervical back: Normal range of motion and neck supple. Skin: General: Skin is warm and dry. Neurological: Mental Status: He is alert and oriented to person, place, and time. Psychiatric: Mood and Affect: Mood normal. Thought Content: Thought content normal. Pertinent Labs: CBC: Hemoglobin (g/dL) Date Value 03/26/2023 13.4 03/13/2021 13.7 Hematocrit (%) Date Value 03/26/2023 42.5 03/13/2021 43.5 WBC (k/uL) Date Value 03/26/2023 6.71 03/13/2021 9.19 Platelet Count (k/uL) Date Value 03/26/2023 167 03/13/2021 195 BMP: Glucose (mg/dL) Date Value 03/26/2023 107 03/13/2021 169 Potassium (mmol/L) Date Value 03/26/2023 4.2 03/13/2021 4.3 Sodium (mmol/L) Date Value 03/26/2023 139 03/13/2021 144 Chloride (mmol/L) Date Value 03/26/2023 104 03/13/2021 107 CO2 (mmol/L) Date Value 03/26/2023 28 03/13/2021 24 Creatinine (mg/dL) Date Value 03/26/2023 0.94 03/13/2021 0.93 BUN (mg/dL) Date Value 03/26/2023 19 03/13/2021 22 Anion Gap (mmol/L) Date Value 03/26/2023 7 03/13/2021 13 Calcium (mg/dL) Date Value 03/13/2021 8.9 Calcium, Total (mg/dL) Date Value 03/26/2023 8.6 INR: Lipid Profile: Total Cholesterol, Nonfasting Date Value Ref Range Status 03/26/2023 148 <200 mg/dL Final Comment: <200 mg/dL, Desirable 200-239 mg/dL, Borderline high >239 mg/dL, High HDL Cholesterol, Nonfasting Date Value Ref Range Status 03/26/2023 40 >39 mg/dL Final Comment: 40-59 mg/dL, Acceptable >59 mg/dL, High: Negative risk factor for coronary heart disease <40 mg/dL, Low: Positive risk factor for coronary heart disease LDL Cholesterol, Nonfasting Date Value Ref Range Status 03/26/2023 74 <100 mg/dL Final Comment: <100 mg/dL, Optimal 100-129 mg/dL, Near optimal/above optimal 130-159 mg/dL, Borderline high 160-189 mg/dL, High >189 mg/dL, Very high Secondary prevention optimal LDL Cholesterol levels are recommended to be < 70 mg/dL Triglycerides, Nonfasting Date Value Ref Range Status 03/26/2023 168 (H) <150 mg/dL Final Comment: <150 mg/dL, Normal 150-199 mg/dL, Borderline high 200-499 mg/dL, High >499 mg/dL, Very high Hemoglobin A1C: No results found for: HGBA1C TSH: No results found for: TSHREFL Prior Cardiac Testing ZIO HOLTER Assessment and Plan: 82 years old gentleman with prior history of supraventricular tachycardia bradycardia and hypertensive heart disease ASSESSMENT/PLAN: 1. SVT (supraventricular tachycardia) [I47.10] - ICD9: 427.89, ICD10: I47.10 (primary diagnosis) No palpitation Scheduled for monitor - OUTSIDE VENDOR CARDIAC OUTPATIENT EXTENDED RHYTHM RECORDING (WITHOUT TELEMETRY) 2. 1st degree AV block - ICD9: 426.11, ICD10: I44.0 Wenckebach block by Holter monitor we will repeat his monitor to see if there is any evidence or need for pacemaker insertion 3. Essential hypertension - ICD9: 401.9, ICD10: I10 - Controlled - Continue current medications - Recommend home blood pressure monitoring, to bring results to next visit - Encouraged sodium restriction, DASH or Mediterranean diet - Recommend regular aerobic exercise Nikko Jose MD Follow up plannin MONTHS Electronically signed by Nikko Jose MD on April 21, 2023, 5:19 PM The above note was partially created using a dictation recognition software. A reasonable attempt has been made to correct any errors. * Cindy Méndez RN - 04/21/2023 2:22 PM EDT EVENT MONITOR DISPOSABLE PATCH INSTRUCTIONS Patient Name: Regan Arango Clinic Number: [id number] Skin prepped and cleansed with alcohol Patch secured to prepped area Monitor Activated Serial #: [id number] Patient Instructed: Prescribed order timeframe Bathing guidelines Usage of event button and diary documentation Return of monitor at the end of prescribed order Call with problems [phone] or [phone]. [phone] Patient expresses a good understanding of instructions Cindy Méndez RN documented in this [facility]10-25-2023 Miscellaneous Notes* Telephone Encounter - Taz Marie LPN - 04/16/2023 9:17 AM EDT Pt's notified of results and instructions. She will have pt call back to schedule CT scan. Taz Marie LPN * Telephone Encounter - Valerie Deshpande APRN.CNP - 04/15/2023 5:09 PM EDT Please let patient know CT shows multiple lung nodules. Recommend repeat CT in [address] has been ordered and may be scheduled. [facility] History of Present illness Narrative* Loni Alvarado RT(R) - 04/11/2023 11:40 AM EDT Radiology Service Progress Note PATIENT NAME: Regan Arango DATE OF SERVICE: April 11, 2023 TIME: 3:55 PM PATIENT IDENTITY VERIFICATION COMPLETED USING TWO (2) IDENTIFIERS: Name and Date of confirmedby patient verbally. FALL SCREENING: Has the patient had 2 falls in the last year or 1 fall with injury or currently using an Ambulatory Assistive Device (Walker, Cane, Wheelchair, Crutches, etc.)? No PATIENT GENDER DATA: Male PATIENT RELEVANT IMPLANT DATA REVIEWED: Yes RADIOLOGY DEPARTMENT: CT; Exam(s) Completed: Chest PERIPHERAL IV DATA: Not applicable SIGNED BY: RT Lukas(R) April 11, 2023 3:55 PM [facility] Miscellaneous Notes* Telephone Encounter - Nick Spence MA - 04/10/2023 8:44 AM EDT Sent message to PSR to assist with scheduling. Nick Spence MA * Telephone Encounter - Jose Fam MD - 04/09/2023 4:49 PM EDT Order placed. * Telephone Encounter - Nick Spence MA - 04/09/2023 3:08 PM EDT Schedulers were unable to schedule for Derm. Apparently the order/consult is not showing for them to pull to schedule. Can we place the order again and I can send to scheduler conveyor to reach out to patient's. Nick Spence MA [facility] Instructions* Patient Instructions* Jose aFm MD - 04/09/2023 1:34 PM EDT Consider getting the shingrix vaccine for the prevention of shingles from a local pharmacy Also consider getting an RSV vaccine from local pharmacy. I changed his levothyroxine 125 mcg to one a day Mon-Sat and two on Sun. Please get repeat thyroid lab on or after 06/09/2023 Please get labs and urine test done on or after prior to your next visit. [facility] History of Present illness Narrative* Jose Fam MD - 04/09/2023 12:54 PM EDT Medicare Yearly Visit Medical B eligibilty date 07/24/2005 Date of last exam 03/21/2022 PAST MEDICAL HISTORY PAST MEDICAL HISTORY Diagnosis Date 1St degree AV block 09/08/2015 Acquired hypothyroidism 04/03/2015 Acute, but ill-defined, cerebrovascular disease 07/13/2008 Anemia 07/24/2015 Arthritis of knee 10/30/2011 Balance problem 04/24/2014 Due to CVA in 2008 and right leg weakness Bilateral leg edema 08/01/2014 Bladder cancer (HCC) 09/07/2014 BPH (benign prostatic hyperplasia) 08/02/2014 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 (HCC) 07/13/2008 Complex renal cyst 08/02/2014 Diastasis recti 08/01/2014 Diverticulosis of colon (without mention of hemorrhage) Elevated fasting blood sugar 04/16/2010 Essential hypertension Essential hypertension Familial peripheral neuropathy 06/02/2015 Gastroesophageal reflux disease without esophagitis 04/03/2015 History of CVA (cerebrovascular accident) 02/2008 residual weakness in right leg Hx of long-term use of blood thinners Lower back pain Lower urinary tract symptoms (LUTS) 08/02/2014 Lumbar stenosis with neurogenic claudication 01/13/2014 Mild pulmonary hypertension (HCC) 09/22/[address] Hamilton, not able to tolerate CPAP for JESSY. Mixed hyperlipidemia 05/24/2008 Mononeuritis of unspecified site Neuropathy Multiple renal cysts 08/01/2014 Complex, left Obesity 06/09/2014 JESSY (obstructive sleep apnea) 12/20/2014 Was on CPAP and could not tolerate. Postlaminectomy syndrome 05/08/2010 Premature supraventricular beats 09/08/2015 Stasis dermatitis of both legs 06/02/2015 Venous insufficiency (chronic) (peripheral) 06/02/2015 Vertigo S/P CVA (cerebrovascular accident) 07/23/2010 PAST SURGICAL HISTORY PAST SURGICAL HISTORY 08/2015: 2D ECHO (EXEP) Comment: EF=64%, 1+ TR and mild Pulm HTN 02/06/2011: COLONOSCOP W/ OR W/O [facility] SPEC Comment: Colonoscopy, repeat 10 yrs 08/31/14 : CYSTO W/BLAD LESION FULGUR. SIM. 2010: L3-4 and L4-5 laminoforaminotomy 03-30-08: LIGATION OR BIOPSY, TEMP ARTERY Comment: RIGHT, negitive. 05/05/2015: LUMBAR SPINE FUSION COMBINED 04/20/08: MAL LESION FACE,EAR,EYEL 1.1-2CM Comment: Exc. right lateral islam skin lesion and right forehead No date: PAST SURGICAL HISTORY OF Comment: ingrown toe nail removed 1964: PAST SURGICAL HISTORY OF Comment: cyst removed from bottom of spine 2000: REPAIR ROTATOR CUFF,ACUTE Comment: Rotator cuff repair left 08/02/10: SHOULDER ARTHROSCOPY/SURGERY Comment: Open Rt subactomial decompression 04/10/2015: STRESS TEST Comment: WNL Prednisone Medications reviewed: Yes FAMILY HISTORY FAMILY HISTORY Hypertension Mother Stroke Mother Ischemic Heart Disease Father Heart Brother headaches [Other] [OTHER] Mother SOCIAL HISTORY: SOCIAL HISTORY Social History Marital status: Spouse name: Sudarshan Years of education: 14 Number of children: 3 Occupational History Occupation 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 He watches his diet for sodium, low fat and low cholesterol all of the time. List of current specialists seen: See Dr. Terry (Urology) , Dr. Jose (cardio), End of Live Planning discussed including patients advanced directive wishes: Yes I am willing to follow Regan's advanced directives. Depression screen Not at risk for depression Functional Ability/Safety Screen 1. Was the patient's timed Up and Go test unsteady or longer than 30 seconds? no 2. Does the patient need help with the phone, transportation, shopping,preparing meals, housework, laundry, medications or managing money? no 3. Does your home have rugs in the hallway, lack of grab bars in the bathroom, lack of handrails onthe stairs or have poor lighting? no Hearing Evaluation: hard of hearing PHYSICAL EXAM BP 110/68 (BP Site: Left Arm, BP Position: Sitting, BP Cuff Size: Large Adult) Pulse 60 Resp 18 Ht 181.6 cm (5' 11.5) Wt 128.8 kg (284 lb) BMI 39.06 kg/m Alert and oriented X 3: YES Body mass index is 39.06 kg/(m^2). See below ASSESSMENT/PLAN: 82 year old male The following prevention plan was discussed during the office visit and provided to the patient: See below Jose Fam MD Chief Complaint Patient presents with: LESION, SKIN Medicare Wellness Exam HPI Regan Arango is a 82 year old male who presents here today for extensive exam, medicare wellness. lesion on back, mobility issues. Patient with hx of HTN, HLP, Pulmonary HTN, SVT, JESSY (untreated), neuropathy, hypothyroidism, elevated glucose, OAB, and those as below. Patient had a fall at home and had rug burn left knee wound seems to be healing. Patient has several growths on his back that bleed become itchy and crust over probably about 6 months per patient. Patient mentioned round red spot on his right islam. Has been more fatigue but he is seeing cardiology on 04/21 for that. Right leg seems to freeze up Patient recent injury to left foot - was seen in 03/13/2023 that seems be doing much better. Cardiology - Yasmeen - last visit 12/11/2022 Urology - Dr Ochoa last visit: no recent office visit. Past medical history, appointments, medications, allergies reviewed. Previous Medical History PAST MEDICAL HISTORY Diagnosis Date 1st degree AV block 09/08/2015 AC (acromioclavicular) joint arthritis 08/09/2009 Acquired hypothyroidism 04/03/2015 Actinic skin damage 03/08/2012 Acute, but ill-defined, cerebrovascular disease 07/13/2008 Advance directive discussed with patient 03/21/2022 Discussed 02/2022 Anemia 07/24/2015 Arthritis of knee 10/30/2011 At risk for falls 05/28/2019 Atypical nevus of thoracic region 02/03/2014 Balance problem 04/24/2014 Due to CVA in 2008 and right leg weakness Bilateral carotid artery stenosis 12/27/2021 US 12/2021: R 40-60% L 20-40% Bilateral leg edema 08/01/2014 Bladder cancer (HCC) 09/07/2014 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 (HCC) 07/13/2008 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 Class 2 obesity due to excess calories without serious comorbidity with body mass index (BMI) of 39.0 to 39.9 in adult 09/04/2018 Diastasis recti 08/01/2014 Diverticulosis of colon (without mention of hemorrhage) Dupuytren's contracture of both hands 09/21/2012 Elevated fasting blood sugar 04/16/2010 Essential hypertension Essential hypertension Familial peripheral neuropathy 06/02/2015 Gait difficulty 04/29/2016 Gastroesophageal reflux disease without esophagitis 04/03/2015 Greater trochanteric bursitis 03/20/2016 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09/04/2012 History of CVA (cerebrovascular accident) 02/2008 residual weakness in right leg History of giant cell arteritis 03/29/2008 Hx of intermediate frame tender use of blood thinners Irritated//Inflamed Seborrheic Keratosis 03/08/2012 Living will on file 03/21/2022 DPA: Sudarshan () Low back pain 01/13/2014 Lower urinary tract symptoms (LUTS) 08/02/2014 Lumbar stenosis with neurogenic claudication 01/13/[address] Starr Mild pulmonary hypertension ([facility]) 09/22/[address] Hamilton, not able to tolerate CPAP for JESSY. Mixed hyperlipidemia 05/24/2008 Multiple renal cysts 08/01/2014 Complex, left Neuropathy 11/15/2016 Related to low back disease OAB (overactive bladder) 07/30/2019 JESSY (obstructive sleep apnea) 12/20/2014 Was on CPAP and could not tolerate. Pain in both hands 12/19/2015 Postlaminectomy syndrome 05/08/2010 Premature supraventricular beats 09/08/2015 Right leg weakness 04/25/2014 Sebaceous cyst 06/08/2009 Stasis dermatitis of both legs 06/02/2015 SVT (supraventricular tachycardia) ([facility]) 07/17/2020 Thoracic or lumbosacral neuritis or radiculitis, unspecified 05/05/2009 Thumb pain, left 11/26/2017 Tinnitus 07/26/2017 Unspecified arthropathy, lower leg 10/12/2008 Venous insufficiency (chronic) (peripheral) 06/02/2015 Vertigo following cerebrovascular accident 07/23/2010 Viral warts, unspecified 04/09/2013 Xerosis cutis 09/04/2012 Previous Surgical History PAST SURGICAL HISTORY Procedure Laterality Date 2D ECHO (EXEP) 08/2015 EF=64%, 1+ TR and mild Pulm HTN COLONOSCOPY FLX DX W/COLLJ SPEC WHEN PFRMD 02/06/2011 Colonoscopy, repeat 10 yrs CYSTO W/REMOVAL OF LESIONS MINOR <0.5CM 08/31/14 ESOPHAGOGASTRODUODENOSCOPY TRANSORAL DIAGNOSTIC 12/14/2018 EGD FASCT PALM W/WO Z-PLASTY TISSUE REARGMT/SKN GRFT Left 09/08/2018 Left 3rd finger fascietomy with skin graft, left 4th finger facietomy with local soft tissue rearrangements and trigger finger release L3-4 and L4-5 laminoforaminotomy 2009 LIGATION/BIOPSY TEMPORAL ARTERY 03-30-08 RIGHT, negitive. LUMBAR SPINE FUSION COMBINED 05/05/2015 MAL LESION FACE,EAR,EYEL 1.1-2CM 04/20/08 Exc. right lateral islam skin lesion and right forehead OPEN REPAIR OF ROTATOR CUFF ACUTE 2000 Rotator cuff repair left PAST SURGICAL HISTORY OF ingrown toe nail removed PAST SURGICAL HISTORY OF 1965 cyst removed from bottom of spine SHOULDER ARTHROSCOPY/SURGERY 08/02/2010 Open Rt subacromial decompression STRESS TEST 04/10/2015 WNL STRESS TEST NUCLEAR 07/09/2018 negative Family History FAMILY HISTORY Problem Relation Age of Onset Hypertension Mother Stroke Mother other (headaches) Mother Ischemic Heart Disease Father Heart Brother Patient Allergies ALLERGIES Allergen Reactions Ditropan [Oxybutyni* Other: See Comments Nausea, brain fog, increased weakness, decreased appetite, and increased restless leg symptoms. Prednisone Other: See Comments Had GI problems, headaches. Patient states he was on high dose for almost 90 days Current Medications Current Outpatient Medications on File Prior to Visit Medication Sig pravastatin (PRAVACHOL) 20 mg tablet Take 1 tablet by mouth once daily. lisinopril 2.5 mg tablet Take 1 tablet by mouth once daily. DULoxetine (CYMBALTA) 30 mg capsule Take 1 capsule by mouth once daily. levothyroxine (LEVOXYL) 125 mcg tablet Take 1 tablet by mouth once daily. Take on empty stomach. For thyroid. traZODone (DESYREL) 50 mg tablet Take 1 tablet by mouth daily at bedtime. furosemide (LASIX) 20 mg tablet Take 1 tablet by mouth once daily. clopidogrel (PLAVIX) 75 mg tablet Take 1 tablet by mouth once daily. finasteride (PROSCAR) 5 mg tablet Take 1 tablet by mouth once daily. levothyroxine (SYNTHROID) 125 mcg tablet Take 1 tablet by mouth once daily. Take on empty stomach. For Thyroid gabapentin (NEURONTIN) 600 mg tablet Take 2 tablets by mouth three times daily for 180 days. tamsulosin (FLOMAX) 0.4 mg TAKE 1 CAPSULE ONE TIME DAILY 30 MINUTES AFTER THE SAME MEAL EACH DAY ammonium lactate (LAC-HYDRIN) 12 % lotion Apply to affected area twice daily. vit C/E/Zn/coppr/lutein/zeaxan (PRESERVISION AREDS-2 ORAL) Take by mouth. ZINC ORAL Take by mouth once daily. potassium chloride ER (KLOR-CON M20) 20 mEq tablet Take 1 tablet by mouth once daily. cyanocobalamin (VITAMIN B-12) 1,000 mcg tab Take 1 tablet by mouth once daily. COMPOUNDED PRESCRIPTION rollator walker #: one Dx: I63.50, Z86.73, R26.89, G60.9, M62.81 and M48.06 multivitamins w-minerals/lut(CENTRUM SILVER TAB) Take one(1) tablet daily. No current facility-administered medications on file prior to visit. Social History Social History Tobacco Use Smoking status: Never Smokeless tobacco: Never Vaping Use Vaping Use: Never used Substance Use Topics Alcohol use: No Drug use: No Review of Symptoms REVIEW OF SYSTEMS GENERAL: No weight loss, malaise or fevers HEENT: Negative for frequent or significant headaches, No changes in vision, no nose bleeds or other nasal problems. Has noted increase tinnitus in his ears and decreased hearing. NECK: Negative for lumps, goiter, pain and significant neck swelling RESPIRATORY: Negative for cough, hemoptysis, wheezing, COPD, dyspnea or shortness of breath CARDIOVASCULAR: Negative for chest pain, leg swelling, hypertension, CHF. At times his pulse has been low. GI: No nausea, vomiting, or diarrhea, No heartburn or reflux symptoms, and no blood : No history of dysuria, frequency or blood MUSCULOSKELETAL: Negative for new or changes in his typical joint pain or swelling, back pain or muscle pain SKIN: See HPI PSYCH: Negative for sleep disturbance, mood disorder and recent psychosocial stressors HEMATOLOGY/LYMPHOLOGY: Negative for prolonged bleeding, bruising easily or swollen nodes ENDOCRINE: Negative for heat intolerance, polyuria, polydipsia and goiter. Has noted cold intolerance. NEURO: No history of headaches, syncope, paralysis, seizures or tremors EXAM: BP 110/68 (BP Site: Left Arm, BP Position: Sitting, BP Cuff Size: Large Adult) Pulse 60 Resp 18 Ht 181.6 cm (5' 11.5) Wt 128.8 kg (284 lb) BMI 39.06 kg/m General Appearance: Well appearing, alert, in no acute distress, well-hydrated, well nourished. andObese. Skin: Skin color, texture, turgor normal, no suspicious rashes or lesions. Head: Normocephalic, no masses, lesions, tenderness or abnormalities. Eyes: Anicteric sclera. Pupils are equally round and reactive to light. Extraocular movements are intact. . Ears: External ears, TM's normal, canals clear. Nose/Sinuses: Nares normal, septum midline, mucosa normal, no drainage or sinus tenderness. Oropharynx: Lips, mucosa, and tongue normal, teeth and gums normal, oropharynx normal. Neck: Supple, no adenopathy; thyroid symmetric, normal size, no bruits. Lungs: Lungs clear to auscultation. No wheezing, rhonchi, rales.. Heart: RRR without murmur, gallop, or rubs. No ectopy. Abdomen: Normal abdominal exam, Abdomen soft, non-tender. Bowel sounds normal. No masses, organomegaly. Extremities: No deformities, pitting edema, skin discoloration, Good capillary refill. . Musculoskeletal: . Muscular strength intact and age appropriate with persistent right LE weakness, No joint swelling, deformity, or tenderness. Peripheral Pulses: Normal. Neurologic: Gait : added with a walker. Sensation to light touch and crainal nerves 2-12 intact.. Health Maintenance List Shingrix Vaccine(1 of 2) Never done RSV Vaccine(1 - 1-dose 60+ series) Never done Advance Directive Discussion due on 06/23/2022 Influenza Vaccine(1) due on 02/21/2023 Covid-19 Vaccine(2022- season) due on 02/21/2023 DTaP,Tdap,Td Vaccine(2 - Td or Tdap) due on 02/01/2025 Diabetes Screening due on 03/26/2026 Depression Assessment Completed Pneumococcal Vaccine: 65+ Completed Data reviewed Component Latest Ref Rng & Units 09/23/2022 02/07/2023 03/26/2023 WBC 3.70 - 11.00 k/uL 6.71 RBC 4.20 - 6.00 m/uL 4.90 Hemoglobin 13.0 - 17.0 g/dL 13.4 Hematocrit 39.0 - 51.0 % 42.5 MCV 80.0 - 100.0 fL 86.7 MCH 26.0 - 34.0 pg 27.3 MCHC 30.5 - 36.0 g/dL 31.5 RDW-CV 11.5 - 15.0 % 17.3 (H) Platelet Count 150 - 400 k/uL 167 MPV 9.0 - 12.7 fL 10.1 Neut% % 70.9 Abs Neut (ANC) 1.45 - 7.50 k/uL 4.75 Lymph% % 16.2 Abs Lymph 1.00 - 4.00 k/uL 1.09 [place]% % 6.9 Abs [place] <0.87 k/uL 0.46 Eosin% % 4.3 Abs Eosin <0.46 k/uL 0.29 Baso% % 1.3 Abs Baso <0.11 k/uL 0.09 Immature Gran % % 0.4 IMMATURE GRANS (ABS) <0.10 k/uL 0.03 NRBC /100 WBC 0.0 Absolute nRBC <0.01 k/uL <0.01 DTYPE Auto Protein, Total 6.3 - 8.0 g/dL 6.1 (L) 5.7 (L) Albumin 3.9 - 4.9 g/dL 3.9 3.7 (L) Calcium 8.5 - 10.2 mg/dL 9.4 8.6 Bilirubin, Total 0.2 - 1.3 mg/dL 0.5 0.6 Alkaline Phosphatase 38 - 113 U/L 114 (H) 93 AST 14 - 40 U/L 11 (L) 10 (L) ALT 10 - 54 U/L 10 9 (L) Glucose 74 - 99 mg/dL 123 (H) 107 (H) BUN 9 - 24 mg/dL 20 19 Creatinine 0.73 - 1.22 mg/dL 0.76 0.94 Sodium 136 - 144 mmol/L 142 139 Potassium 3.7 - 5.1 mmol/L 4.4 4.2 Chloride 97 - 105 mmol/L 106 (H) 104 CO2 22 - 30 mmol/L 30 28 Anion Gap 9 - 18 mmol/L 6 (L) 7 (L) eGFR >=60 mL/min/1.73m 90 80 Total Cholesterol, Nonfasting <200 mg/dL 135 148 Triglycerides, Nonfasting <150 mg/dL 194 (H) 168 (H) HDL Cholesterol, Nonfasting >39 mg/dL 35 (L) 40 LDL Cholesterol, Nonfasting <100 mg/dL 61 74 Non HDL Cholesterol, Nonfasting <130 mg/dL 100 108 VLDL Cholesterol, Nonfasting <30 mg/dL 39 (H) 34 (H) Total Chol/HDL Ratio, Nonfasting <5.10 mg/dL 3.86 3.70 LDL/HDL Ratio, Nonfasting <2.54 mg/dL 1.74 1.85 Hemoglobin A1C 4.3 - 5.6 % 5.5 5.6 Estimated Average Glucose mg/dL 111 114 TSH 0.270 - 4.200 mIU/L 0.123 (L) 2.160 4.920 (H) A/P ASSESSMENT/PLAN: 1. Medicare annual wellness visit, subsequent - ICD9: V70.0, ICD10: Z00.00 (primary diagnosis) - Counseled on healthy diet and regular exercise - Discussed need for and benefit of weight loss. BMI 39.06 kg/(m^2) - Patient was counseled [id number] by myself (the billing provider) for the following immunizations and vaccine components, including side effects: Influenza. Patient consents for immunization and understands risks and benefits. A VIS sheet on each immunization was given to the patient. - Follow up for annual exam in one year 2. Acquired hypothyroidism - ICD9: 244.9, ICD10: E03.9 - Instructed patient on importance of taking on an empty stomach either first thing in the morning or at bedtime. - Increase Synthroid dose to LEVOTHYROXINE 125 MCG TABLET one a day Mon - Sat and two on Friday. Check TSH in 2 months 3. Chronic insomnia - ICD9: 780.52, ICD10: F51.04 Cont - TRAZODONE 50 MG TABLET 4. Essential hypertension - ICD9: 401.9, ICD10: I10 - Controlled - Recommend home blood pressure monitoring, to bring results to next visit - Encouraged sodium restriction, DASH or Mediterranean diet - Recommend regular aerobic exercise 5. Mixed hyperlipidemia - ICD9: 272.2, ICD10: E78.2 - Controlled - Continue current medications - Counseled on healthy diet and regular exercise 6. Elevated fasting blood sugar - ICD9: 790.21, ICD10: R73.01 - stable cont life style changes for control. 7. Gastroesophageal reflux disease without esophagitis - ICD9: 530.81, ICD10: K21.9 - managed with diet. 8. Bilateral carotid artery stenosis - ICD9: 433.10, 433.30, ICD10: I65.23 Check - US CAROTID ARTERIES [facility] 9. History of CVA (cerebrovascular accident) - ICD9: V12.54, ICD10: Z86.73 - cont current meds. - CONSULT TO PHYSICAL THERAPY 10. Acute, but ill-defined, cerebrovascular disease - ICD9: 436, ICD10: I67.89 - stable with Tx. 11. Bilateral leg edema - ICD9: 782.3, ICD10: R60.0 - controlled with Tx and wearing support socks. 12. Mild pulmonary hypertension (HCC) - ICD9: 416.8, ICD10: I27.20 - seeing cardio 13. SVT (supraventricular tachycardia) - ICD9: 427.89, ICD10: I47.10 - a s per #12 14. Familial peripheral neuropathy - ICD9: 356.0, ICD10: G60.9 - stable with Tx but increases risk of falls. 15. Low serum vitamin B12 - ICD9: 266.2, ICD10: E53.8 - cont replacement 16. Neuropathy - ICD9: 355.9, ICD10: G62.9 Cont gabapentin. - CONSULT TO PHYSICAL THERAPY 17. Pulmonary nodule - ICD9: 793.11, ICD10: R91.1 - will get CT chest set up 18. Stasis dermatitis of both legs - ICD9: 454.1, ICD10: I87.2 - stable 19. Venous insufficiency (chronic) (peripheral) - ICD9: 459.81, ICD10: I87.2 - stable 20. BPH with obstruction/lower urinary tract symptoms - ICD9: 600.01, 599.69, ICD10: N40.1, N13.8 - patient to get back in with urology 21. History of bladder cancer - ICD9: V10.51, ICD10: Z85.51 - as per #20 22. Lumbar stenosis with neurogenic claudication - ICD9: 724.03, ICD10: M48.062 - CONSULT TO PHYSICAL THERAPY 23. Gait difficulty - ICD9: 781.2, ICD10: R26.9 - CONSULT TO PHYSICAL THERAPY 24. Advance directive discussed with patient - ICD9: V65.49, ICD10: Z71.89 - up to date 25. Skin cancer screening - ICD9: V76.43, ICD10: Z12.83 - CONSULT TO DERMATOLOGY 26. Skin lesions - ICD9: 709.9, ICD10: L98.9 - CONSULT TO DERMATOLOGY 27. Balance problem - ICD9: 781.99, ICD10: R26.89 - CONSULT TO PHYSICAL THERAPY 28. At risk for falls - ICD9: V15.88, ICD10: Z91.81 - CONSULT TO PHYSICAL THERAPY 29. Encounter for immunization - ICD9: V03.89, ICD10: Z23 - INFLUENZA VACCINE, PRSV FREE, AGE 65+ YR, HIGH DOSE, QUADRIVALENT (FLUZONE HIGH-DOSE): given F/u 6 months routine check CMP, Lipid, A1c and TSH prior I spent a total of 40 minutes on the date of the service which included preparing to see the patient, [id number] patient care, completing clinical documentation, performing a medically appropriate examination, counseling and educating the patient/family/caregiver and ordering medications, tests, or procedures. Patient was asked at end of visit if they had any questions or input regarding the plan of care we had discussed. Jose Fam MD documented [facility]09[facility] History of Present illness Narrative* Khoa Womack APRN.INTEGRATED CIRCUIT DESIGN ENGINEER - 03/13/2023 12:45 PM EDT Images from the original note were not included. Subjective HPI HPI Regan Arango is a 82 year old male who presents today for CC of left foot injury, fell 2 days ago. Has tried otc medication without relief. Symptoms are worsened by walking. Has chronic neuropathy of bilat feet, very little feeling. .Patient presents with: Pain (foot): L foot pain x2 days, fell, unsure of injury to foot PAST MEDICAL HISTORY Diagnosis Date 1st degree AV block 09/08/2015 AC (acromioclavicular) joint arthritis 08/09/2009 Acquired hypothyroidism 04/03/2015 Actinic skin damage 03/08/2012 Acute, but ill-defined, cerebrovascular disease 07/13/2008 Advance directive discussed with patient 03/21/2022 Discussed 02/2022 Anemia 07/24/2015 Arthritis of knee 10/30/2011 At risk for falls 05/28/2019 Atypical nevus of thoracic region 02/03/2014 Balance problem 04/24/2014 Due to CVA in 2008 and right leg weakness Bilateral carotid artery stenosis 12/27/2021 US 12/2021: R 40-60% L 20-40% Bilateral leg edema 08/01/2014 Bladder cancer (HCC) 09/07/2014 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 (HCC) 07/13/2008 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 Class 2 obesity due to excess calories without serious comorbidity with body mass index (BMI) of 39.0 to 39.9 in adult 09/04/2018 Diastasis recti 08/01/2014 Diverticulosis of colon (without mention of hemorrhage) Dupuytren's contracture of both hands 09/21/2012 Elevated fasting blood sugar 04/16/2010 Essential hypertension Essential hypertension Familial peripheral neuropathy 06/02/2015 Gait difficulty 04/29/2016 Gastroesophageal reflux disease without esophagitis 04/03/2015 Greater trochanteric bursitis 03/20/2016 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09/04/2012 History of CVA (cerebrovascular accident) 02/2008 residual weakness in right leg History of giant cell arteritis 03/29/2008 Hx of long-term use of blood thinners Irritated//Inflamed Seborrheic Keratosis 03/08/2012 Living will on file 03/21/2022 DPA: Sudarshan () Low back pain 01/13/2014 Lower urinary tract symptoms (LUTS) 08/02/2014 Lumbar stenosis with neurogenic claudication 01/13/[address] Starr Mild pulmonary hypertension (HCC) 09/22/[address] Hamilton, not able to tolerate CPAP for JESSY. Mixed hyperlipidemia 05/24/2008 Multiple renal cysts 08/01/2014 Complex, left Neuropathy 11/15/2016 Related to low back disease OAB (overactive bladder) 07/30/2019 JESSY (obstructive sleep apnea) 12/20/2014 Was on CPAP and could not tolerate. Pain in both hands 12/19/2015 Postlaminectomy syndrome 05/08/2010 Premature supraventricular beats 09/08/2015 Right leg weakness 04/25/2014 Sebaceous cyst 06/08/2009 Stasis dermatitis of both legs 06/02/2015 SVT (supraventricular tachycardia) (HCC) 07/17/2020 Thoracic or lumbosacral neuritis or radiculitis, unspecified 05/05/2009 Thumb pain, left 11/26/2017 Tinnitus 07/26/2017 Unspecified arthropathy, lower leg 10/12/2008 Venous insufficiency (chronic) (peripheral) 06/02/2015 Vertigo following cerebrovascular accident 07/23/2010 Viral warts, unspecified 04/09/2013 Xerosis cutis 09/04/2012 PAST SURGICAL HISTORY Procedure Laterality Date 2D ECHO (EXEP) 08/2015 EF=64%, 1+ TR and mild Pulm HTN COLONOSCOPY FLX DX W/COLLJ SPEC WHEN PFRMD 02/06/2011 Colonoscopy, repeat 10 yrs CYSTO W/REMOVAL OF LESIONS MINOR <0.5CM 08/31/14 ESOPHAGOGASTRODUODENOSCOPY TRANSORAL DIAGNOSTIC 12/14/2018 EGD FASCT PALM W/WO Z-PLASTY TISSUE REARGMT/SKN GRFT Left 09/08/2018 Left 3rd finger fascietomy with skin graft, left 4th finger facietomy with local soft tissue rearrangements and trigger finger release L3-4 and L4-5 laminoforaminotomy 2009 LIGATION/BIOPSY TEMPORAL ARTERY 03-30-08 RIGHT, negitive. LUMBAR SPINE FUSION COMBINED 05/05/2015 MAL LESION FACE,EAR,EYEL 1.1-2CM 04/20/08 Exc. right lateral islam skin lesion and right forehead OPEN REPAIR OF ROTATOR CUFF ACUTE 2000 Rotator cuff repair left PAST SURGICAL HISTORY OF ingrown toe nail removed PAST SURGICAL HISTORY OF 1965 cyst removed from bottom of spine SHOULDER ARTHROSCOPY/SURGERY 08/02/2010 Open Rt subacromial decompression STRESS TEST 04/10/2015 WNL STRESS TEST NUCLEAR 07/09/2018 negative ALLERGIES Ditropan [Oxybutynin] and Prednisone MEDICATIONS methylPREDNISolone (MEDROL, ERIK,) 4 mg Dose-Pack^Follow dosing instructions, take with food.^Disp: 21 tablet^Rfl: 0 pravastatin (PRAVACHOL) 20 mg tablet^Take 1 tablet by mouth once daily.^Disp: 90 tablet^Rfl: 1 lisinopril 2.5 mg tablet^Take 1 tablet by mouth once daily.^Disp: 90 tablet^Rfl: 1 DULoxetine (CYMBALTA) 30 mg capsule^Take 1 capsule by mouth once daily.^Disp: 90 capsule^Rfl: 1 levothyroxine (LEVOXYL) 125 mcg tablet^Take 1 tablet by mouth once daily. Take on empty stomach. For thyroid.^Disp: 90 tablet^Rfl: 1 traZODone (DESYREL) 50 mg tablet^Take 1 tablet by mouth daily at bedtime.^Disp: 90 tablet^Rfl: 1 furosemide (LASIX) 20 mg tablet^Take 1 tablet by mouth once daily.^Disp: 90 tablet^Rfl: 1 clopidogrel (PLAVIX) 75 mg tablet^Take 1 tablet by mouth once daily.^Disp: 90 tablet^Rfl: 1 finasteride (PROSCAR) 5 mg tablet^Take 1 tablet by mouth once daily.^Disp: 90 tablet^Rfl: 1 levothyroxine (SYNTHROID) 125 mcg tablet^Take 1 tablet by mouth once daily. Take on empty stomach. For Thyroid^Disp: 10 tablet^Rfl: 0 gabapentin (NEURONTIN) 600 mg tablet^Take 2 tablets by mouth three times daily for 180 days.^Disp: 540 tablet^Rfl: 1 tamsulosin (FLOMAX) 0.4 mg^TAKE 1 CAPSULE ONE TIME DAILY 30 MINUTES AFTER THE SAME MEAL EACH DAY^Disp: 90 capsule^Rfl: 3 ammonium lactate (LAC-HYDRIN) 12 % lotion^Apply to affected area twice daily.^Disp: 396 g^Rfl: 5 vit C/E/Zn/coppr/lutein/zeaxan (PRESERVISION AREDS-2 ORAL)^Take by mouth.^Disp: ^Rfl: ZINC ORAL^Take by mouth once daily.^Disp: ^Rfl: potassium chloride ER (KLOR-CON M20) 20 mEq tablet^Take 1 tablet by mouth once daily.^Disp: 90 tablet^Rfl: 3 cyanocobalamin (VITAMIN B-12) 1,000 mcg tab^Take 1 tablet by mouth once daily.^Disp: 90 tablet^Rfl:3 COMPOUNDED PRESCRIPTION^rollator walker #: one Dx: I63.50, Z86.73, R26.89, G60.9, M62.81 and M48.06^Disp: 1 Device^Rfl: 0 multivitamins w-minerals/lut(CENTRUM SILVER TAB)^Take one(1) tablet daily.^Disp: ^Rfl: 0 FAMILY HISTORY Problem Relation Age of Onset Hypertension Mother Stroke Mother other (headaches) Mother Ischemic Heart Disease Father Heart Brother Social History Tobacco Use Smoking status: Never Smokeless tobacco: Never Vaping Use Vaping Use: Never used Substance Use Topics Alcohol use: No Drug use: No ROS Objective Blood pressure 124/72, pulse 72, temperature 36.6 C (97.9 F), resp. rate 18, weight 112.5 kg (248 lb), SpO2 94 %. Physical Exam Constitutional: General: He is not in acute distress. Appearance: He is not toxic-appearing or diaphoretic. HENT: Head: Normocephalic and atraumatic. Cardiovascular: Pulses: Dorsalis pedis pulses are 1+ on the left side. Posterior tibial pulses are 1+ on the left side. Pulmonary: Effort: Pulmonary effort is normal. No accessory muscle usage or respiratory distress. Musculoskeletal: Feet: Neurological: Mental Status: He is alert and oriented to person, place, and time. ASSESSMENT/PLAN: 1. Foot injury, left, initial encounter - ICD9: 959.7, ICD10: S99.922A -no bony abnormality noted on xray -Rest, Ice, Compression, Elevation discussed -follow up with primary care if symptoms persist/worsen in 10-14 days - XR FOOT GENERAL 3V AP/LAT/OBL LEFT IMPRESSION: No acute fracture or dislocation Dictated by : MIGUEL BLISS MD - METHYLPREDNISOLONE 4 MG TABLETS IN A DOSE PACK Khoa Womack APRN.INTEGRATED CIRCUIT DESIGN ENGINEER documented in this encounterPe[facility]09-20-2023 Miscellaneous Notes* Telephone Encounter - Jose Fam MD - 03/12/2023 12:58 PM EDT info noted. * Telephone Encounter - Noemy Washington RN - 03/12/2023 12:34 PM EDT Patient calls and wanted provider to know that he fell last night. Patient had no injuries. Patientdid have to call squad to get him off of floor. Patient was told by EMS that he should call PCP andlet him know. Patient is unsure of why he fell. Noemy Washington RN documented in this encounterPe[facility]09-11-2023 Miscellaneous Notes* Telephone Encounter - Danielle Sanchez LPN - 03/03/2023 10:55 AM EDT Patient phones requesting refills as follows: Requested Prescriptions Pending Prescriptions Disp Refills lisinopril 2.5 mg tablet 90 tablet 1 Sig: Take 1 tablet by mouth once daily. REBECCA-12/06/22 Labs-02/07/23 NOV-04/09/23 Please review and advise. Danielle Sanchez LPN documented in this encounterPe[facility]09-11-2023 Miscellaneous Notes* Telephone Encounter - Danielle Sanchez LPN - 03/03/2023 10:53 AM EDT Patient phones requesting refills as follows: Requested Prescriptions Pending Prescriptions Disp Refills pravastatin (PRAVACHOL) 20 mg tablet 90 tablet 1 Sig: Take 1 tablet by mouth once daily. REBECCA-12/06/22 Labs-02/07/23 NOV-04/09/23 Please review and advise. Danielle Sanchez LPN documented in this encounterPe[facility]08-19-2023 Miscellaneous Notes* Telephone Encounter - Nick Spence MA - 02/08/2023 12:04 PM EDT Patient notified and voiced understanding. Nick Spence MA * Telephone Encounter - Jose Fam MD - 02/08/2023 11:39 AM EDT Let patient know thyroid lab is much better. Continue current dosing of the levothyroxine. documented in this encounterPe[facility]07-18-2023 Miscellaneous Notes* Telephone Encounter - Jose Fam MD - 01/07/2023 1:46 PM EDT The following approved medication requests have been transmitted electronically. Requested Prescriptions Signed Prescriptions Disp Refills levothyroxine (LEVOXYL) 125 mcg tablet 90 tablet 1 Sig: Take 1 tablet by mouth once daily. Take on empty stomach. For thyroid. traZODone (DESYREL) 50 mg tablet 90 tablet 1 Sig: Take 1 tablet by mouth daily at bedtime. furosemide (LASIX) 20 mg tablet 90 tablet 1 Sig: Take 1 tablet by mouth once daily. clopidogrel (PLAVIX) 75 mg tablet 90 tablet 1 Sig: Take 1 tablet by mouth once daily. finasteride (PROSCAR) 5 mg tablet 90 tablet 1 Sig: Take 1 tablet by mouth once daily. Jose Fam MD * Telephone Encounter - Nick Spence MA - 01/07/2023 12:37 PM EDT Patient has been identified by name and date of : Yes Requested Prescriptions Pending Prescriptions Disp Refills levothyroxine (LEVOXYL) 125 mcg tablet 90 tablet 1 Sig: Take 1 tablet by mouth once daily. Take on empty stomach. For thyroid. traZODone (DESYREL) 50 mg tablet 90 tablet 1 Sig: Take 1 tablet by mouth daily at bedtime. furosemide (LASIX) 20 mg tablet 90 tablet 1 Sig: Take 1 tablet by mouth once daily. clopidogrel (PLAVIX) 75 mg tablet 90 tablet 1 Sig: Take 1 tablet by mouth once daily. finasteride (PROSCAR) 5 mg tablet 90 tablet 1 Sig: Take 1 tablet by mouth once daily. RX INSTRUCTIONS: Patient aware RX will be sent to pharmacy. No need to notify patient. Nick Spence MA Rebecca 11/2022 Nov 03/2023 Last refill: 06/2022 documented in this encounterPe[facility]06-29-2023 Miscellaneous Notes* Telephone Encounter - Virginia Pace RN - 12/19/2022 12:12 PM EDT FYI: Patient calls to voice concern for appointment with Dr. Ramirez on 12/11/2022. Patient didn't feel like a physical assessment was completed as documented. Patient cancelled follow up appointment scheduled with Elham Anaya on 02/13/2023. Recommended patient contact Dr. Ramirez office. Virginia Pace RN documented in this encounterPeoples Hospital06-22-2023 Miscellaneous Notes* Telephone Encounter - Virginia Pace RN - 12/12/2022 12:13 PM EDT Patient calls and notified of results. Patient verbalizes understanding. Virginia Pace RN * Telephone Encounter - Virginia Pace RN - 12/12/2022 12:09 PM EDT Call placed to patient with no answer. Voicemail left for patient to return call and ask to speak to a triage nurse to receive provider message. Virginia Pace RN * Telephone Encounter - Valerie Deshpande APRN.CNP - 12/12/2022 9:[address] shows minor chronic changes. documented in this encounterPeoples Hospital06-21-2023 History of Present illness Narrative* Lucas Ramirez, - 12/11/2022 11:52 AM EDT Images from the original note were not included. [facility] OUTPATIENT VISIT DATE December 11, 2022 PRIMARY CARE PHYSICIAN: Jose Fam [address] [place] [address] HISTORY OF PRESENT ILLNESS: Mr. Arango is a 82 year old male. Patient presents for follow-up but prematurely due to problems with lightheadedness with change in position. He is not known previously to this provider. He has a longstanding history of SVT and bradycardia and has had his medical regimen titrated. More recently hehas noticed progressive lightheadedness occurring with change in position. He unfortunately is poorly mobile due to history of degenerative disc disease. He additionally has a bad right knee and chronic lower extremity edema as a result of comorbidities and chronic use of sleeping in the recliner. He also has neuropathy which has become progressive. He is diagnosed with obstructive sleep apnea remotely but has not worn his CPAP mask and is supposedly due to be evaluated for his potential treatment options in regards to what sleep study would best be suited as he believes that he could not sleep well in a hotel where it is performed. He is are trying to check into whether or not a home sleep study could be performed. He denies chest discomfort, dyspnea on exertion, orthopnea, paroxysmal nocturnal dyspnea, palpitations, near-syncope or jose alberto syncope. His accompanies him today. PLAN AND RECOMMENDATIONS: The patient has positional lightheadedness which may be result of multiple comorbidities. This includes untreated sleep apnea, peripheral neuropathy, poor venous flow, deconditioning and possible relative dehydration. He is utilizing furosemide for lower extremity edema control. We discussed the best way to treat this would actually be to improve his ability to exercise, be able to lay flat and have his potential sleep apnea treated. To that end we have cut back on his furosemide and asked him to try to take it Friday and Friday and see if this helps any great degree. We will provide a consult to a sleep medicine provider to help facilitate further evaluation and treatment of his sleep apnea. We discussed the need for incorporation of exercise. He apparently can use a right thumb bike will but will need such that has pedals to keep his feet from falling off of such. He is wifewill look into such. We will follow-up with him in a couple months time for repeat evaluation. He has had extensive cardiac testing in the past that we do not feel needs to be repeated at this time. D ietary and lifestyle modification was otherwise emphasized to facilitate risk factor reduction. Vitals: BP 120/64 Pulse (!) 58 Ht 181.6 cm (5' 11.5) Wt 123.8 kg (273 lb) SpO2 95% BMI 37.55 kg/m Physical Exam Vitals reviewed. Constitutional: General: He is not in acute distress. Appearance: Normal appearance. He is well-developed. He is not diaphoretic. HENT: Head: Normocephalic and atraumatic. Right Ear: External ear normal. Left Ear: External ear normal. Nose: Nose normal. Eyes: General: No scleral icterus. Right eye: No discharge. Left eye: No discharge. Pupils: Pupils are equal, round, and reactive to light. Neck: Thyroid: No thyromegaly. Vascular: No carotid bruit or JVD. Cardiovascular: Rate and Rhythm: Normal rate and regular rhythm. Heart sounds: No murmur heard. No friction rub. No gallop. Pulmonary: Effort: Pulmonary effort is normal. No respiratory distress. Breath sounds: Normal breath sounds. No wheezing or rales. Abdominal: General: Bowel sounds are normal. Palpations: Abdomen is soft. Musculoskeletal: General: Normal range of motion. Cervical back: Neck supple. Skin: General: Skin is warm and dry. Capillary Refill: Capillary refill takes less than 2 seconds. Coloration: Skin is not pale. Neurological: Mental Status: He is alert and oriented to person, place, and time. Cranial Nerves: No cranial nerve deficit. Psychiatric: Mood and Affect: Mood normal. Mood is not anxious or depressed. Behavior: Behavior normal. Thought Content: Thought content normal. Judgment: Judgment normal. Review of Systems Constitutional: Positive for fatigue. Negative for activity change, appetite change and unexpected weight change. HENT: Negative for ear pain and trouble swallowing. Eyes: Negative for pain and visual disturbance. Respiratory: Negative for chest tightness and shortness of breath. Cardiovascular: Negative for chest pain, palpitations and leg swelling. Gastrointestinal: Negative for abdominal pain and blood in stool. Endocrine: Negative for cold intolerance and heat intolerance. Genitourinary: Negative for dysuria, hematuria and scrotal swelling. Musculoskeletal: Negative for arthralgias and myalgias. Skin: Negative for pallor and rash. Allergic/Immunologic: Negative for immunocompromised state. Neurological: Negative for dizziness, syncope and light-headedness. Hematological: Negative for adenopathy. Does not bruise/bleed easily. Psychiatric/Behavioral: Negative for sleep disturbance. The patient is not nervous/anxious. PAST MEDICAL HISTORY Diagnosis Date 1st degree AV block 09/08/2015 AC (acromioclavicular) joint arthritis 08/09/2009 Acquired hypothyroidism 04/03/2015 Actinic skin damage 03/08/2012 Acute, but ill-defined, cerebrovascular disease 07/13/2008 Advance directive discussed with patient 03/21/2022 Discussed 02/2022 Anemia 07/24/2015 Arthritis of knee 10/30/2011 At risk for falls 05/28/2019 Atypical nevus of thoracic region 02/03/2014 Balance problem 04/24/2014 Due to CVA in 2008 and right leg weakness Bilateral carotid artery stenosis 12/27/2021 US 12/2021: R 40-60% L 20-40% Bilateral leg edema 08/01/2014 Bladder cancer (HCC) 09/07/2014 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 (HCC) 07/13/2008 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 Class 2 obesity due to excess calories without serious comorbidity with body mass index (BMI) of 39.0 to 39.9 in adult 09/04/2018 Diastasis recti 08/01/2014 Diverticulosis of colon (without mention of hemorrhage) Dupuytren's contracture of both hands 09/21/2012 Elevated fasting blood sugar 04/16/2010 Essential hypertension Essential hypertension Familial peripheral neuropathy 06/02/2015 Gait difficulty 04/29/2016 Gastroesophageal reflux disease without esophagitis 04/03/2015 Greater trochanteric bursitis 03/20/2016 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09/04/2012 History of CVA (cerebrovascular accident) 02/2008 residual weakness in right leg History of giant cell arteritis 03/29/2008 Hx of long-term use of blood thinners Irritated//Inflamed Seborrheic Keratosis 03/08/2012 Living will on file 03/21/2022 DPA: Sudarshan () Low back pain 01/13/2014 Lower urinary tract symptoms (LUTS) 08/02/2014 Lumbar stenosis with neurogenic claudication 01/13/[address] Starr Mild pulmonary hypertension (HCC) 09/22/[address] Hamilton, not able to tolerate CPAP for JESSY. Mixed hyperlipidemia 05/24/2008 Multiple renal cysts 08/01/2014 Complex, left Neuropathy 11/15/2016 Related to low back disease OAB (overactive bladder) 07/30/2019 JESSY (obstructive sleep apnea) 12/20/2014 Was on CPAP and could not tolerate. Pain in both hands 12/19/2015 Postlaminectomy syndrome 05/08/2010 Premature supraventricular beats 09/08/2015 Right leg weakness 04/25/2014 Sebaceous cyst 06/08/2009 Stasis dermatitis of both legs 06/02/2015 SVT (supraventricular tachycardia) (HCC) 07/17/2020 Thoracic or lumbosacral neuritis or radiculitis, unspecified 05/05/2009 Thumb pain, left 11/26/2017 Tinnitus 07/26/2017 Unspecified arthropathy, lower leg 10/12/2008 Venous insufficiency (chronic) (peripheral) 06/02/2015 Vertigo following cerebrovascular accident 07/23/2010 Viral warts, unspecified 04/09/2013 Xerosis cutis 09/04/2012 PAST SURGICAL HISTORY Procedure Laterality Date 2D ECHO (EXEP) 08/2015 EF=64%, 1+ TR and mild Pulm HTN COLONOSCOPY FLX DX W/COLLJ SPEC WHEN PFRMD 02/06/2011 Colonoscopy, repeat 10 yrs CYSTO W/REMOVAL OF LESIONS MINOR <0.5CM 08/31/14 ESOPHAGOGASTRODUODENOSCOPY TRANSORAL DIAGNOSTIC 12/14/2018 EGD FASCT PALM W/WO Z-PLASTY TISSUE REARGMT/SKN GRFT Left 09/08/2018 Left 3rd finger fascietomy with skin graft, left 4th finger facietomy with local soft tissue rearrangements and trigger finger release L3-4 and L4-5 laminoforaminotomy 2009 LIGATION/BIOPSY TEMPORAL ARTERY 03-30-08 RIGHT, negitive. LUMBAR SPINE FUSION COMBINED 05/05/2015 MAL LESION FACE,EAR,EYEL 1.1-2CM 04/20/08 Exc. right lateral islam skin lesion and right forehead OPEN REPAIR OF ROTATOR CUFF ACUTE 2000 Rotator cuff repair left PAST SURGICAL HISTORY OF ingrown toe nail removed PAST SURGICAL HISTORY OF 1965 cyst removed from bottom of spine SHOULDER ARTHROSCOPY/SURGERY 08/02/2010 Open Rt subacromial decompression STRESS TEST 04/10/2015 WNL STRESS TEST NUCLEAR 07/09/2018 negative Social History Tobacco Use Smoking status: Never Smokeless tobacco: Never Vaping Use Vaping Use: Never used Substance Use Topics Alcohol use: No Drug use: No FAMILY HISTORY Problem Relation Age of Onset Hypertension Mother Stroke Mother other (headaches) Mother Ischemic Heart Disease Father Heart Brother ALLERGIES Allergen Reactions Ditropan [Oxybutyni* Other: See Comments Nausea, brain fog, increased weakness, decreased appetite, and increased restless leg symptoms. Prednisone Other: See Comments Had GI problems, headaches. Patient states he was on high dose for almost 90 days CURRENT MEDICATIONS: levothyroxine (LEVOXYL) 125 mcg tablet^Take 1 tablet by mouth once daily. Take on empty stomach. For thyroid.^Disp: 90 tablet^Rfl: 0 levothyroxine (SYNTHROID) 125 mcg tablet^Take 1 tablet by mouth once daily. Take on empty stomach. For Thyroid^Disp: 10 tablet^Rfl: 0 gabapentin (NEURONTIN) 600 mg tablet^Take 2 tablets by mouth three times daily for 180 days.^Disp: 540 tablet^Rfl: 1 tamsulosin (FLOMAX) 0.4 mg^TAKE 1 CAPSULE ONE TIME DAILY 30 MINUTES AFTER THE SAME MEAL EACH DAY^Disp: 90 capsule^Rfl: 3 ammonium lactate (LAC-HYDRIN) 12 % lotion^Apply to affected area twice daily.^Disp: 396 g^Rfl: 5 traZODone (DESYREL) 50 mg tablet^Take 1 tablet by mouth daily at bedtime.^Disp: 90 tablet^Rfl: 1 furosemide (LASIX) 20 mg tablet^Take 1 tablet by mouth once daily.^Disp: 90 tablet^Rfl: 1 vit C/E/Zn/coppr/lutein/zeaxan (PRESERVISION AREDS-2 ORAL)^Take by mouth.^Disp: ^Rfl: ZINC ORAL^Take by mouth once daily.^Disp: ^Rfl: potassium chloride ER (KLOR-CON M20) 20 mEq tablet^Take 1 tablet by mouth once daily.^Disp: 90 tablet^Rfl: 3 clopidogrel (PLAVIX) 75 mg tablet^Take 1 tablet by mouth once daily.^Disp: 90 tablet^Rfl: 1 finasteride (PROSCAR) 5 mg tablet^Take 1 tablet by mouth once daily.^Disp: 90 tablet^Rfl: 1 cyanocobalamin (VITAMIN B-12) 1,000 mcg tab^Take 1 tablet by mouth once daily.^Disp: 90 tablet^Rfl:3 pravastatin (PRAVACHOL) 20 mg tablet^Take 1 tablet by mouth once daily.^Disp: 90 tablet^Rfl: 1 lisinopril 2.5 mg tablet^Take 1 tablet by mouth once daily.^Disp: 90 tablet^Rfl: 1 COMPOUNDED PRESCRIPTION^rollator walker #: one Dx: I63.50, Z86.73, R26.89, G60.9, M62.81 and M48.06^Disp: 1 Device^Rfl: 0 multivitamins w-minerals/lut(CENTRUM SILVER TAB)^Take one(1) tablet daily.^Disp: ^Rfl: 0 DULoxetine (CYMBALTA) 30 mg capsule^Take 1 capsule by mouth once daily.^Disp: 90 capsule^Rfl: 1 Lucas Ramirez, DO, FACC, FACOI Clinical and Preventive Cardiology Department of Medicine and Division of Cardiology, [facility] Design Coordinatortrim machine adjuster [facility] Design Coordinator of [facility] Cardiology Office Design Coordinator [facility] Staff Harness Builder, Rohan and Jana Dueñas Department of Cardiovascular Medicine/Heart and Vascular [place], [facility] Clinical Manager Mortgage Profressor of Medicine, [facility] Please note: This note has been produced using speech recognition software and may contain errors related to that system including windy, punctuation, spelling, words, gender and phrases that may be inappropriate. documented in this encounterPeoples Hospital06-19-2023 Miscellaneous Notes* Telephone Encounter - Taz Marie LPN - 12/09/2022 2:43 PM EDT Spoke with pt. States he has been taking the new dosage of 125 mcg. Will get lab work done in 2 months as instructed. Taz Marie LPN * Telephone Encounter - Jose Fam MD - 12/09/2022 1:43 PM EDT So it appears his dosing for his synthroid was decreased by Valerie Deshpande on 12/06/2022 to 125 mcgone a day. Make sure he has switched to this dosing. I placed an order to get his thyroid lab rechecked in 2 months. * Telephone Encounter - Taz Marie LPN - 12/06/2022 1:18 PM EDT Spoke with pt and pt's . Pt is just taking the 150 mcg of levothyroxine once daily Fri-Fri. also wanted to let you know that one month ago pt's hair started thining and falling out in clumps. She would find clumps on shower floor. Reports that pt is almost bald on top of head. Taz Marie LPN * Telephone Encounter - Jose Fam MD - 12/05/2022 4:16 PM EDT Let patient know thyroid lab still shows he is getting too much levothyroxine. See if he has been taking just the 150 mcg tab once a day Fri through Friday? documented in this encounterPeoples Hospital06-16-2023 History of Present illness Narrative* Valerie Deshpande APRN.INTEGRATED CIRCUIT DESIGN ENGINEER - 12/06/2022 1:15 PM EDT Chief Complaint Patient presents with: ER F/U: [facility] 11/29/22 HPI Regan Arango is a 82 year old male who presents here today for Above Complaints.. Patient presents for ER follow up. Patient was told in ER he had an abnormal EKG however the physician note states he had a normal ekg of sinus asif. Patient has seen Dr. Jose and was told he was acandidate for a pacemaker. Past medical history, appointments, medications, allergies reviewed. Previous Medical History PAST MEDICAL HISTORY Diagnosis Date 1st degree AV block 09/08/2015 AC (acromioclavicular) joint arthritis 08/09/2009 Acquired hypothyroidism 04/03/2015 Actinic skin damage 03/08/2012 Acute, but ill-defined, cerebrovascular disease 07/13/2008 Advance directive discussed with patient 03/21/2022 Discussed 02/2022 Anemia 07/24/2015 Arthritis of knee 10/30/2011 At risk for falls 05/28/2019 Atypical nevus of thoracic region 02/03/2014 Balance problem 04/24/2014 Due to CVA in 2008 and right leg weakness Bilateral carotid artery stenosis 12/27/2021 US 12/2021: R 40-60% L 20-40% Bilateral leg edema 08/01/2014 Bladder cancer (HCC) 09/07/2014 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 (HCC) 07/13/2008 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 Class 2 obesity due to excess calories without serious comorbidity with body mass index (BMI) of 39.0 to 39.9 in adult 09/04/2018 Diastasis recti 08/01/2014 Diverticulosis of colon (without mention of hemorrhage) Dupuytren's contracture of both hands 09/21/2012 Elevated fasting blood sugar 04/16/2010 Essential hypertension Essential hypertension Familial peripheral neuropathy 06/02/2015 Gait difficulty 04/29/2016 Gastroesophageal reflux disease without esophagitis 04/03/2015 Greater trochanteric bursitis 03/20/2016 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09/04/2012 History of CVA (cerebrovascular accident) 02/2008 residual weakness in right leg History of giant cell arteritis 03/29/2008 Hx of intermediate frame tender use of blood thinners Irritated//Inflamed Seborrheic Keratosis 03/08/2012 Living will on file 03/21/2022 DPA: Sudarshan () Low back pain 01/13/2014 Lower urinary tract symptoms (LUTS) 08/02/2014 Lumbar stenosis with neurogenic claudication 01/13/[address] Starr Mild pulmonary hypertension (HCC) 09/22/[address] Hamilton, not able to tolerate CPAP for JESSY. Mixed hyperlipidemia 05/24/2008 Multiple renal cysts 08/01/2014 Complex, left Neuropathy 11/15/2016 Related to low back disease OAB (overactive bladder) 07/30/2019 JESSY (obstructive sleep apnea) 12/20/2014 Was on CPAP and could not tolerate. Pain in both hands 12/19/2015 Postlaminectomy syndrome 05/08/2010 Premature supraventricular beats 09/08/2015 Right leg weakness 04/25/2014 Sebaceous cyst 06/08/2009 Stasis dermatitis of both legs 06/02/2015 SVT (supraventricular tachycardia) (HCC) 07/17/2020 Thoracic or lumbosacral neuritis or radiculitis, unspecified 05/05/2009 Thumb pain, left 11/26/2017 Tinnitus 07/26/2017 Unspecified arthropathy, lower leg 10/12/2008 Venous insufficiency (chronic) (peripheral) 06/02/2015 Vertigo following cerebrovascular accident 07/23/2010 Viral warts, unspecified 04/09/2013 Xerosis cutis 09/04/2012 Previous Surgical History PAST SURGICAL HISTORY Procedure Laterality Date 2D ECHO (EXEP) 08/2015 EF=64%, 1+ TR and mild Pulm HTN COLONOSCOPY FLX DX W/COLLJ SPEC WHEN PFRMD 02/06/2011 Colonoscopy, repeat 10 yrs CYSTO W/REMOVAL OF LESIONS MINOR <0.5CM 08/31/14 ESOPHAGOGASTRODUODENOSCOPY TRANSORAL DIAGNOSTIC 12/14/2018 EGD FASCT PALM W/WO Z-PLASTY TISSUE REARGMT/SKN GRFT Left 09/08/2018 Left 3rd finger fascietomy with skin graft, left 4th finger facietomy with local soft tissue rearrangements and trigger finger release L3-4 and L4-5 laminoforaminotomy 2009 LIGATION/BIOPSY TEMPORAL ARTERY 03-30-08 RIGHT, negitive. LUMBAR SPINE FUSION COMBINED 05/05/2015 MAL LESION FACE,EAR,EYEL 1.1-2CM 04/20/08 Exc. right lateral islam skin lesion and right forehead OPEN REPAIR OF ROTATOR CUFF ACUTE 2000 Rotator cuff repair left PAST SURGICAL HISTORY OF ingrown toe nail removed PAST SURGICAL HISTORY OF 1965 cyst removed from bottom of spine SHOULDER ARTHROSCOPY/SURGERY 08/02/2010 Open Rt subacromial decompression STRESS TEST 04/10/2015 WNL STRESS TEST NUCLEAR 07/09/2018 negative Family History FAMILY HISTORY Problem Relation Age of Onset Hypertension Mother Stroke Mother other (headaches) Mother Ischemic Heart Disease Father Heart Brother Patient Allergies ALLERGIES Allergen Reactions Ditropan [Oxybutyni* Other: See Comments Nausea, brain fog, increased weakness, decreased appetite, and increased restless leg symptoms. Prednisone Other: See Comments Had GI problems, headaches. Patient states he was on high dose for almost 90 days Current Medications Current Outpatient Medications on File Prior to Visit Medication Sig gabapentin (NEURONTIN) 600 mg tablet Take 2 tablets by mouth three times daily for 180 days. tamsulosin (FLOMAX) 0.4 mg TAKE 1 CAPSULE ONE TIME DAILY 30 MINUTES AFTER THE SAME MEAL EACH DAY ammonium lactate (LAC-HYDRIN) 12 % lotion Apply to affected area twice daily. traZODone (DESYREL) 50 mg tablet Take 1 tablet by mouth daily at bedtime. furosemide (LASIX) 20 mg tablet Take 1 tablet by mouth once daily. vit C/E/Zn/coppr/lutein/zeaxan (PRESERVISION AREDS-2 ORAL) Take by mouth. ZINC ORAL Take by mouth once daily. potassium chloride ER (KLOR-CON M20) 20 mEq tablet Take 1 tablet by mouth once daily. clopidogrel (PLAVIX) 75 mg tablet Take 1 tablet by mouth once daily. levothyroxine (SYNTHROID) 150 mcg tablet Take 1 tablet by mouth once daily. Fri through Friday withextra 25 mcg tab on Sundays only (Patient taking differently: Take 150 mcg by mouth once daily.) finasteride (PROSCAR) 5 mg tablet Take 1 tablet by mouth once daily. cyanocobalamin (VITAMIN B-12) 1,000 mcg tab Take 1 tablet by mouth once daily. pravastatin (PRAVACHOL) 20 mg tablet Take 1 tablet by mouth once daily. lisinopril 2.5 mg tablet Take 1 tablet by mouth once daily. DULoxetine (CYMBALTA) 30 mg capsule Take 1 capsule by mouth once daily. COMPOUNDED PRESCRIPTION rollator walker #: one Dx: I63.50, Z86.73, R26.89, G60.9, M62.81 and M48.06 multivitamins w-minerals/lut(CENTRUM SILVER TAB) Take one(1) tablet daily. Current Facility-Administered Medications on File Prior to Visit Medication perflutren lipid microspheres 1.3 mL in NaCl (PF) 0.9% 10 mL injection (DEFINITY) sodium chloride 0.9 % (flush) 10 mL (BD POSIFLUSH) Social History Social History Tobacco Use Smoking status: Never Smokeless tobacco: Never Vaping Use Vaping Use: Never used Substance Use Topics Alcohol use: No Drug use: No Review of Symptoms REVIEW OF SYSTEMS SEE HPI EXAM: BP 116/56 Pulse 60 Temp 37.1 C (98.8 F) (Right Tympanic) Resp 16 Wt 126.2 kg (278 lb 3.2 oz) BMI 38.10 kg/m General Appearance: Well appearing, alert, in no acute distress, well-hydrated, well nourished.. Lungs: Lungs clear to auscultation. No wheezing, rhonchi, rales.. Heart: RRR without murmur, gallop, or rubs. No ectopy. Peripheral Pulses: Normal. Neurologic: Positive findings: muscular weakness right lower extremity weaker than left. Health Maintenance List SHINGRIX VACCINE(1 of 2) Never done ADVANCE DIRECTIVE DISCUSSION due on 06/23/2022 DTAP,TDAP,TD(2 - Td or Tdap) due on 02/01/2025 DIABETES SCREEN due on 09/23/2025 INFLUENZA Completed DEPRESSION ASSESSMENT Completed COVID-19 VACCINE Completed PNEUMOCOCCAL: 65+ Completed ASSESSMENT/PLAN: 1. Acquired hypothyroidism - ICD9: 244.9, ICD10: E03.9 (primary diagnosis) - Instructed patient on importance of taking on an empty stomach either first thing in the morning or at bedtime. - Decrease Synthroid dose to 0.125 mg Stable - Behavioral intervention - LEVOTHYROXINE 125 MCG TABLET - LEVOTHYROXINE 125 MCG TABLET 2. Junctional bradycardia - ICD9: 427.89, ICD10: R00.1 -Noted on ER EKG by PA - Schedule patient with cardiology THADDEUS for further evaluation 3. Weakness of both lower extremities - ICD9: 729.89, ICD10: R29.898 -Right worse than left -CT BRAIN W/O IV CON Valerie Deshpande APRN.INTEGRATED CIRCUIT DESIGN ENGINEER documented in this encounterPeoples Hospital06-09-2023 Miscellaneous Notes* Telephone Encounter - Maikel Hale RN - 11/29/2022 5:02 PM EDT Phoned and given provider's message below with verbalized understanding. Patient agreeable to take patient to ER for evaluation. * Telephone Encounter - Jose Fam MD - 11/29/2022 4:46 PM EDT Let know lack of the Neurontin would not cause issues staying awake. He could have a urinary tract infection or even pneumonia. Would advise taking him to ER for evaluation. * Telephone Encounter - Emily Sin LPN - 11/29/2022 3:00 PM EDT Pt's calls states is having some concern over pt the last couple days . She says all he wants to do is sleep. He will wake up for her and is oriented when he does .Its been going on for a coupledays now but today is the worst he will not stay awake. She did explain pt was not on time orderinghis refill on neurontin and they get it by mail so last couple days he has not had any asking if this could be a side effect of not having that? Very vague with symptoms documented in this encounterPeoples Hospital06-06-2023 Miscellaneous Notes* Telephone Encounter - Jose Fam MD - 11/26/2022 1:35 PM EDT The following approved medication requests have been transmitted electronically. Requested Prescriptions Signed Prescriptions Disp Refills gabapentin (NEURONTIN) 600 mg tablet 540 tablet 1 Sig: Take 2 tablets by mouth three times daily for 180 days. Authorizing Provider: JOSE FAM MD * Telephone Encounter - Jeannine Mejia MA - 11/26/2022 12:51 PM EDT Patient has been identified by name and date of : Yes Requested Prescriptions Pending Prescriptions Disp Refills gabapentin (NEURONTIN) 600 mg tablet 540 tablet 1 Sig: Take 2 tablets by mouth three times daily for 180 days. RX INSTRUCTIONS: Patient aware RX will be sent to pharmacy. No need to notify patient. Patient last office visit: 10/02/22 Patient next office visit: 04/09/23 Jeannine Mejia MA documented in this encounterPeoples Hospital05-15-2023 Miscellaneous Notes* Telephone Encounter - Julien Najera MA - 11/04/2022 8:00 AM EDT Patient called requesting the following refill. Requested Prescriptions Pending Prescriptions Disp Refills tamsulosin (FLOMAX) 0.4 mg [Pharmacy Med Name: TAMSULOSIN HYDROCHLORIDE 0.4 MG Capsule] 90 capsule Sig: TAKE 1 CAPSULE ONE TIME DAILY 30 MINUTES AFTER THE SAME MEAL EACH DAY Patient last appointment: Visit date not found Patient Phone numbers: [phone] (home) Request is for script(s) to be escript to pharmacy. Julien Najera MA documented in this encounterPeoples Hospital05-01-2023 Miscellaneous Notes* Telephone Encounter - Jose Fam MD - 10/21/2022 11:21 AM EDT Noted. * Telephone Encounter - Nick Spence MA - 10/21/2022 10:36 AM EDT Spoke with and her she indicated that they opted not to use it because he is already on a blood thinner. They had gotten report that this worked well, as Regan is just looking for some relief. Nick Spence MA * Telephone Encounter - Jose Fam MD - 10/21/2022 10:19 AM EDT Let know the Grape seed and green tea is ok. The only other one I can speak for is the ginseng. It is a mild blood thinner so if brusing a lot may want to stop it. * Telephone Encounter - Jaci Dunlap LPN - 10/21/2022 9:51 AM EDT Pt's is calling to report that they bought a plant based supplement called Cortexi that is supposed to help with tinnitus. is asking if this is ok to take with the medications pt is currently on. The main ingredients include - Grape Seed contains antioxidants to protect the ear. Green Tea improves blood flow to the ears. Gymnema Joo supports overall hearing. Capsicum Annuum supports healthy inflammation. Panax Ginseng had neuroprotective properties. Astragalus supports clear sounds. Chromium Picolinate supports auditory health. Shala Root helps to boost energy. Please review and advise. Jaci Dunlap LPN documented in this encounterPeoples Hospital04-12-2023 Instructions* Patient Instructions* Jose Fam MD - 10/02/2022 1:08 PM EDT Please come and get your thyroid lab on or after 12/02/2022. Please get labs and urine test done on or after 03/21/2023 prior to your next visit. I changed your levothyroxine back to just taking the 150 mcg tab once a day. documented in this encounterPeoples Hospital04-12-2023 History of Present illness Narrative* Jose Fam MD - 10/02/2022 12:34 PM EDT Chief Complaint Patient presents with: F/U 6 months HPI Regan Arango is a 81 year old male who presents here today for 6 month follow up. Office visit - 6 month follow up Patient with hx of HTN, HLP, Pulmonary HTN, SVT, JESSY (untreated), neuropathy, hypothyroidism, elevated glucose, OAB, and those as below. Recent fall in July - was sen at [facility] Some pain in right inner thigh since the fall and has been improving. The area he hit his head is incubator tender. Otherwise has been doing well. Wants a few lesions looked at on his back. office visit: 02/2022 - [facility] Patient with hx of HTN, HLP, Pulmonary HTN, SVT, JESSY (untreated), neuropathy, hypothyroidism, elevated glucose, OAB, and those as below. Since an episode back in November where he had some global amnesia and seen ALE[facility]. A MRI at the time showed a possible subacute tiny white matter infarct. Notes some continued difficulty with swallowing and sometimes will cough and voice gets Past medical history, appointments, medications, allergies reviewed. Previous Medical History PAST MEDICAL HISTORY Diagnosis Date 1st degree AV block 09/08/2015 AC (acromioclavicular) joint arthritis 08/09/2009 Acquired hypothyroidism 04/03/2015 Actinic skin damage 03/08/2012 Acute, but ill-defined, cerebrovascular disease 07/13/2008 Advance directive discussed with patient 03/21/2022 Discussed 02/2022 Anemia 07/24/2015 Arthritis of knee 10/30/2011 At risk for falls 05/28/2019 Atypical nevus of thoracic region 02/03/2014 Balance problem 04/24/2014 Due to CVA in 2008 and right leg weakness Bilateral carotid artery stenosis 12/27/2021 US 12/2021: R 40-60% L 20-40% Bilateral leg edema 08/01/2014 Bladder cancer (HCC) 09/07/2014 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 (HCC) 07/13/2008 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 Class 2 obesity due to excess calories without serious comorbidity with body mass index (BMI) of 39.0 to 39.9 in adult 09/04/2018 Diastasis recti 08/01/2014 Diverticulosis of colon (without mention of hemorrhage) Dupuytren's contracture of both hands 09/21/2012 Elevated fasting blood sugar 04/16/2010 Essential hypertension Essential hypertension Familial peripheral neuropathy 06/02/2015 Gait difficulty 04/29/2016 Gastroesophageal reflux disease without esophagitis 04/03/2015 Greater trochanteric bursitis 03/20/2016 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09/04/2012 History of CVA (cerebrovascular accident) 02/2008 residual weakness in right leg History of giant cell arteritis 03/29/2008 Hx of intermediate frame tender use of blood thinners Irritated//Inflamed Seborrheic Keratosis 03/08/2012 Living will on file 03/21/2022 DPA: Sudarshan () Low back pain 01/13/2014 Lower urinary tract symptoms (LUTS) 08/02/2014 Lumbar stenosis with neurogenic claudication 01/13/[address] Starr Mild pulmonary hypertension (HCC) 09/22/[address] Hamilton, not able to tolerate CPAP for JESSY. Mixed hyperlipidemia 05/24/2008 Multiple renal cysts 08/01/2014 Complex, left Neuropathy 11/15/2016 Related to low back disease OAB (overactive bladder) 07/30/2019 JESSY (obstructive sleep apnea) 12/20/2014 Was on CPAP and could not tolerate. Pain in both hands 12/19/2015 Postlaminectomy syndrome 05/08/2010 Premature supraventricular beats 09/08/2015 Right leg weakness 04/25/2014 Sebaceous cyst 06/08/2009 Stasis dermatitis of both legs 06/02/2015 SVT (supraventricular tachycardia) (HCC) 07/17/2020 Thoracic or lumbosacral neuritis or radiculitis, unspecified 05/05/2009 Thumb pain, left 11/26/2017 Tinnitus 07/26/2017 Unspecified arthropathy, lower leg 10/12/2008 Venous insufficiency (chronic) (peripheral) 06/02/2015 Vertigo following cerebrovascular accident 07/23/2010 Viral warts, unspecified 04/09/2013 Xerosis cutis 09/04/2012 Previous Surgical History PAST SURGICAL HISTORY Procedure Laterality Date 2D ECHO (EXEP) 08/2015 EF=64%, 1+ TR and mild Pulm HTN COLONOSCOPY FLX DX W/COLLJ SPEC WHEN PFRMD 02/06/2011 Colonoscopy, repeat 10 yrs CYSTO W/REMOVAL OF LESIONS SMALL 08/31/14 ESOPHAGOGASTRODUODENOSCOPY TRANSORAL DIAGNOSTIC 12/14/2018 EGD FASCT PALM W/WO Z-PLASTY TISSUE REARGMT/SKN GRFT Left 09/08/2018 Left 3rd finger fascietomy with skin graft, left 4th finger facietomy with local soft tissue rearrangements and trigger finger release L3-4 and L4-5 laminoforaminotomy 2009 LIGATION/BIOPSY TEMPORAL ARTERY 03-30-08 RIGHT, negitive. LUMBAR SPINE FUSION COMBINED 05/05/2015 MAL LESION FACE,EAR,EYEL 1.1-2CM 04/20/08 Exc. right lateral islam skin lesion and right forehead OPEN REPAIR OF ROTATOR CUFF ACUTE 2000 Rotator cuff repair left PAST SURGICAL HISTORY OF ingrown toe nail removed PAST SURGICAL HISTORY OF 1965 cyst removed from bottom of spine SHOULDER ARTHROSCOPY/SURGERY 08/02/2010 Open Rt subacromial decompression STRESS TEST 04/10/2015 WNL STRESS TEST NUCLEAR 07/09/2018 negative Family History FAMILY HISTORY Problem Relation Age of Onset Hypertension Mother Stroke Mother other (headaches) Mother Ischemic Heart Disease Father Heart Brother Patient Allergies ALLERGIES Allergen Reactions Ditropan [Oxybutyni* Other: See Comments Nausea, brain fog, increased weakness, decreased appetite, and increased restless leg symptoms. Prednisone Other: See Comments Had GI problems, headaches. Patient states he was on high dose for almost 90 days Current Medications Current Outpatient Medications on File Prior to Visit Medication Sig traZODone (DESYREL) 50 mg tablet Take 1 tablet by mouth daily at bedtime. furosemide (LASIX) 20 mg tablet Take 1 tablet by mouth once daily. vit C/E/Zn/coppr/lutein/zeaxan (PRESERVISION AREDS-2 ORAL) Take by mouth. ZINC ORAL Take by mouth once daily. potassium chloride ER (KLOR-CON M20) 20 mEq tablet Take 1 tablet by mouth once daily. clopidogrel (PLAVIX) 75 mg tablet Take 1 tablet by mouth once daily. levothyroxine (LEVOXYL) 50 mcg tablet Take 1/2 tab on Friday only along with a 150 mcg tab.Take on empty stomach. For Thyroid levothyroxine (SYNTHROID) 150 mcg tablet Take 1 tablet by mouth once daily. Fri through Friday withextra 25 mcg tab on Sundays only finasteride (PROSCAR) 5 mg tablet Take 1 tablet by mouth once daily. cyanocobalamin (VITAMIN B-12) 1,000 mcg tab Take 1 tablet by mouth once daily. pravastatin (PRAVACHOL) 20 mg tablet Take 1 tablet by mouth once daily. lisinopril 2.5 mg tablet Take 1 tablet by mouth once daily. gabapentin (NEURONTIN) 600 mg tablet Take 2 tablets by mouth three times daily for 180 days. DULoxetine (CYMBALTA) 30 mg capsule Take 1 capsule by mouth once daily. tamsulosin (FLOMAX) 0.4 mg Take 1 capsule by mouth once daily. 30 minutes after the same meal each day. COMPOUNDED PRESCRIPTION rollator walker #: one Dx: I63.50, Z86.73, R26.89, G60.9, M62.81 and M48.06 multivitamins w-minerals/lut(CENTRUM SILVER TAB) Take one(1) tablet daily. Current Facility-Administered Medications on File Prior to Visit Medication perflutren lipid microspheres 1.3 mL in NaCl (PF) 0.9% 10 mL injection (DEFINITY) sodium chloride 0.9 % (flush) 10 mL (BD POSIFLUSH) Social History Social History Tobacco Use Smoking status: Never Smokeless tobacco: Never Vaping Use Vaping Use: Never used Substance Use Topics Alcohol use: No Drug use: No Review of Symptoms REVIEW OF SYSTEMS GENERAL: No significant weight loss, malaise or fevers NECK: Negative for lumps, goiter, pain and significant neck swelling RESPIRATORY: Negative for cough, hemoptysis, wheezing, COPD, dyspnea or shortness of breath CARDIOVASCULAR: Negative for chest pain, increased leg swelling, hypertension, CHF or change in hisoccasional palpitations GI: No nausea, vomiting, or diarrhea and No heartburn or reflux symptoms MUSCULOSKELETAL: see HPI SKIN: skin lesions on has back will get itchy at times. ENDOCRINE: Negative for cold or heat intolerance, polyuria, polydipsia and goiter NEURO: No history of headaches, syncope, paralysis, seizures or tremors EXAM: BP 122/72 (BP Site: Left Arm, BP Position: Sitting, BP Cuff Size: Large Adult) Pulse (!) 50 Resp 16 Wt 127.5 kg (281 lb) BMI 38.48 kg/m Last 5 Encounter Wt Readings: Date: Wt: 10/02/2022 127.5 kg (281 lb) 09/23/2022 129.7 kg (286 lb) 08/06/2022 130 kg (286 lb 9.6 oz) 07/23/2022 0 kg () 07/01/2022 129.7 kg (286 lb) General Appearance: Well appearing, alert, in no acute distress, well-hydrated, well nourished.. Skin: has multiple seborrheic keratoses on the back . Nothing abnormal at this time. . Neck: Supple, no adenopathy; thyroid symmetric, normal size, no bruits. Lungs: Lungs clear to auscultation. No wheezing, rhonchi, rales.. Heart: RRR without murmur, gallop, or rubs. No ectopy. Abdomen: Normal abdominal exam, Abdomen soft, non-tender. Bowel sounds normal. No masses, organomegaly. Extremities: No deformities, edema on the right, skin discoloration, Good capillary refill. Mild edema on the left and at base line. Peripheral Pulses: Normal. Neurologic: Gait aided with walker. Sensation to light touch intact.. Health Maintenance List SHINGRIX VACCINE(1 of 2) Never done ADVANCE DIRECTIVE DISCUSSION due on 06/23/2022 DTAP,TDAP,TD(2 - Td or Tdap) due on 02/01/2025 DIABETES SCREEN due on 09/23/2025 INFLUENZA Completed DEPRESSION ASSESSMENT Completed COVID-19 VACCINE Completed PNEUMOCOCCAL: 65+ Completed Data reviewed Component Latest Ref Rng & Units 03/19/2022 09/23/2022 Protein, Total 6.3 - 8.0 g/dL 6.2 (L) 6.1 (L) Albumin 3.9 - 4.9 g/dL 4.0 3.9 Calcium 8.5 - 10.2 mg/dL 8.9 9.4 Bilirubin, Total 0.2 - 1.3 mg/dL 0.6 0.5 Alkaline Phosphatase 38 - 113 U/L 112 114 (H) AST 14 - 40 U/L 15 11 (L) ALT 10 - 54 U/L 11 10 Glucose 74 - 99 mg/dL 161 (H) 123 (H) BUN 9 - 24 mg/dL 19 20 Creatinine 0.73 - 1.22 mg/dL 0.94 0.76 Sodium 136 - 144 mmol/L 139 142 Potassium 3.7 - 5.1 mmol/L 4.5 4.4 Chloride 97 - 105 mmol/L 105 106 (H) CO2 22 - 30 mmol/L 24 30 Anion Gap 9 - 18 mmol/L 10 6 (L) eGFR >=60 mL/min/1.73m 81 90 Total Cholesterol, Nonfasting <200 mg/dL 147 135 Triglycerides, Nonfasting <150 mg/dL 192 (H) 194 (H) HDL Cholesterol, Nonfasting >39 mg/dL 36 (L) 35 (L) LDL Cholesterol, Nonfasting <100 mg/dL 73 61 Non HDL Cholesterol, Nonfasting <130 mg/dL 111 100 VLDL Cholesterol, Nonfasting <30 mg/dL 38 (H) 39 (H) Total Chol/HDL Ratio, Nonfasting <5.10 mg/dL 4.08 3.86 LDL/HDL Ratio, Nonfasting <2.54 mg/dL 2.03 1.74 Hemoglobin A1C 4.3 - 5.6 % 6.0 (H) 5.5 Estimated Average Glucose mg/dL 126 111 TSH 0.270 - 4.200 mIU/L 0.638 0.123 (L) A/P ASSESSMENT/PLAN: 1. Essential hypertension - ICD9: 401.9, ICD10: I10 (primary diagnosis) - good control - Continue current medication(s) - Recommended regular aerobic exercise. - Recommend home blood pressure monitoring, to bring results in on next visit - Goal of BP <130/80 2. Mixed hyperlipidemia - ICD9: 272.2, ICD10: E78.2 - good control - Encouraged following a low fat, low cholesterol diet. - Discussed the benefits of regular aerobic exercise and weight loss. - Encouraged following a low carbohydrate, healthy oil intake diet. - Continue current therapy. 3. Elevated fasting blood sugar - ICD9: 790.21, ICD10: R73.01 - improved A1c through life style changes., 4. Bilateral leg edema - ICD9: 782.3, ICD10: R60.0 - very little on exam 5. Gastroesophageal reflux disease without esophagitis - ICD9: 530.81, ICD10: K21.9 - controlled via diet. 6. Acquired hypothyroidism - ICD9: 244.9, ICD10: E03.9 - Instructed patient on importance of taking on an empty stomach either first thing in the morning or at bedtime. Synthroid will be decreased to just 150 mcg once a day. - recheck TSH in 2 months 7. SVT (supraventricular tachycardia) ([facility]) - ICD9: 427.89, ICD10: I47.1 - management per cardio 8. Mild pulmonary hypertension (HCC) - ICD9: 416.8, ICD10: I27.20 - as per #7 9. Bilateral carotid artery stenosis - ICD9: 433.10, 433.30, ICD10: I65.23 - cont current Tx. Will need Us around 03/2023 10. History of CVA (cerebrovascular accident) - ICD9: V12.54, ICD10: Z86.73 - clinically stable no changes. 11. Vertigo following cerebrovascular accident - ICD9: 438.85, ICD10: I69.398, R42 - none at this time. 12. Familial peripheral neuropathy - ICD9: 356.0, ICD10: G60.9 - stable no changes. 13. Venous insufficiency (chronic) (peripheral) - ICD9: 459.81, ICD10: I87.2 - stable 14. Stasis dermatitis of both legs - ICD9: 454.1, ICD10: I87.2 - stable 15. Neuropathy - ICD9: 355.9, ICD10: G62.9 - stable 16. Morbid obesity with body mass index (BMI) of 40.0 to 44.9 in adult ([facility]) - ICD9: 278.01, V85.41, ICD10: E66.01, Z68.41 Weight decreasing - Behavioral intervention 17. Seborrheic keratoses - ICD9: 702.19, ICD10: L82.1 Has multiple on his back and some are very dry and irritated. Will seem if lac- hydrin will help. Requested Prescriptions Signed Prescriptions Disp Refills ammonium lactate (LAC-HYDRIN) 12 % lotion 396 g 5 Sig: Apply to affected area twice daily. F/u in 6 months extensive check CMP, lipid, UA, A1c, TSH and CBC prior [facility] F[facility] History of Present illness Narrative* Nikko Jose MD - 09/23/2022 2:19 PM EDT Images from the original note were not included. Nikko Jose MD Interventional Cardiology [facility] [address], [place] [address] [phone] Chief Complaint Patient presents with: Follow Up svt HISTORY OF PRESENT ILLNESS: Mr. 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 Cardiac Risk Factors age (male over 45, female over 55), hyperlipidemia, hypertension, family history of CAD PAST MEDICAL HISTORY Diagnosis Date 1st degree AV block 09/08/2015 AC (acromioclavicular) joint arthritis 08/09/2009 Acquired hypothyroidism 04/03/2015 Actinic skin damage 03/08/2012 Acute, but ill-defined, cerebrovascular disease 07/13/2008 Advance directive discussed with patient 03/21/2022 Discussed 02/2022 Anemia 07/24/2015 Arthritis of knee 10/30/2011 At risk for falls 05/28/2019 Atypical nevus of thoracic region 02/03/2014 Balance problem 04/24/2014 Due to CVA in 2008 and right leg weakness Bilateral carotid artery stenosis 12/27/2021 US 12/2021: R 40-60% L 20-40% Bilateral leg edema 08/01/2014 Bladder cancer (HCC) 09/07/2014 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 (HCC) 07/13/2008 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 Class 2 obesity due to excess calories without serious comorbidity with body mass index (BMI) of 39.0 to 39.9 in adult 09/04/2018 Diastasis recti 08/01/2014 Diverticulosis of colon (without mention of hemorrhage) Dupuytren's contracture of both hands 09/21/2012 Elevated fasting blood sugar 04/16/2010 Essential hypertension Essential hypertension Familial peripheral neuropathy 06/02/2015 Gait difficulty 04/29/2016 Gastroesophageal reflux disease without esophagitis 04/03/2015 Greater trochanteric bursitis 03/20/2016 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09/04/2012 History of CVA (cerebrovascular accident) 02/2008 residual weakness in right leg History of giant cell arteritis 03/29/2008 Hx of long-term use of blood thinners Irritated//Inflamed Seborrheic Keratosis 03/08/2012 Living will on file 03/21/2022 DPA: Sudarshan () Low back pain 01/13/2014 Lower urinary tract symptoms (LUTS) 08/02/2014 Lumbar stenosis with neurogenic claudication 01/13/[address] Starr Mild pulmonary hypertension (HCC) 09/22/[address] Hamilton, not able to tolerate CPAP for JESSY. Mixed hyperlipidemia 05/24/2008 Multiple renal cysts 08/01/2014 Complex, left Neuropathy 11/15/2016 Related to low back disease OAB (overactive bladder) 07/30/2019 JESSY (obstructive sleep apnea) 12/20/2014 Was on CPAP and could not tolerate. Pain in both hands 12/19/2015 Postlaminectomy syndrome 05/08/2010 Premature supraventricular beats 09/08/2015 Right leg weakness 04/25/2014 Sebaceous cyst 06/08/2009 Stasis dermatitis of both legs 06/02/2015 SVT (supraventricular tachycardia) (HCC) 07/17/2020 Thoracic or lumbosacral neuritis or radiculitis, unspecified 05/05/2009 Thumb pain, left 11/26/2017 Tinnitus 07/26/2017 Unspecified arthropathy, lower leg 10/12/2008 Venous insufficiency (chronic) (peripheral) 06/02/2015 Vertigo following cerebrovascular accident 07/23/2010 Viral warts, unspecified 04/09/2013 Xerosis cutis 09/04/2012 PAST SURGICAL HISTORY Procedure Laterality Date 2D ECHO (EXEP) 08/2015 EF=64%, 1+ TR and mild Pulm HTN COLONOSCOPY FLX DX W/COLLJ SPEC WHEN PFRMD 02/06/2011 Colonoscopy, repeat 10 yrs CYSTO W/REMOVAL OF LESIONS SMALL 08/31/14 ESOPHAGOGASTRODUODENOSCOPY TRANSORAL DIAGNOSTIC 12/14/2018 EGD FASCT PALM W/WO Z-PLASTY TISSUE REARGMT/SKN GRFT Left 09/08/2018 Left 3rd finger fascietomy with skin graft, left 4th finger facietomy with local soft tissue rearrangements and trigger finger release L3-4 and L4-5 laminoforaminotomy 2009 LIGATION/BIOPSY TEMPORAL ARTERY 03-30-08 RIGHT, negitive. LUMBAR SPINE FUSION COMBINED 05/05/2015 MAL LESION FACE,EAR,EYEL 1.1-2CM 04/20/08 Exc. right lateral islam skin lesion and right forehead OPEN REPAIR OF ROTATOR CUFF ACUTE 2000 Rotator cuff repair left PAST SURGICAL HISTORY OF ingrown toe nail removed PAST SURGICAL HISTORY OF 1965 cyst removed from bottom of spine SHOULDER ARTHROSCOPY/SURGERY 08/02/2010 Open Rt subacromial decompression STRESS TEST 04/10/2015 WNL STRESS TEST NUCLEAR 07/09/2018 negative FAMILY HISTORY Problem Relation Age of Onset Hypertension Mother Stroke Mother other (headaches) Mother Ischemic Heart Disease Father Heart Brother Social History Tobacco Use Smoking status: Never Smokeless tobacco: Never Vaping Use Vaping Use: Never used Substance Use Topics Alcohol use: No Drug use: No ALLERGIES Allergen Reactions Ditropan [Oxybutyni* Other: See Comments Nausea, brain fog, increased weakness, decreased appetite, and increased restless leg symptoms. Prednisone Other: See Comments Had GI problems, headaches. Patient states he was on high dose for almost 90 days Medications: Current Outpatient Medications Medication Sig Dispense Refill traZODone (DESYREL) 50 mg tablet Take 1 tablet by mouth daily at bedtime. 90 tablet 1 furosemide (LASIX) 20 mg tablet Take 1 tablet by mouth once daily. 90 tablet 1 vit C/E/Zn/coppr/lutein/zeaxan (PRESERVISION AREDS-2 ORAL) Take by mouth. ZINC ORAL Take by mouth once daily. potassium chloride ER (KLOR-CON M20) 20 mEq tablet Take 1 tablet by mouth once daily. 90 tablet 3 clopidogrel (PLAVIX) 75 mg tablet Take 1 tablet by mouth once daily. 90 tablet 1 levothyroxine (LEVOXYL) 50 mcg tablet Take 1/2 tab on Friday only along with a 150 mcg tab.Take on empty stomach. For Thyroid 12 tablet 1 levothyroxine (SYNTHROID) 150 mcg tablet Take 1 tablet by mouth once daily. Fri through Friday withextra 25 mcg tab on Sundays only 90 tablet 1 finasteride (PROSCAR) 5 mg tablet Take 1 tablet by mouth once daily. 90 tablet 1 cyanocobalamin (VITAMIN B-12) 1,000 mcg tab Take 1 tablet by mouth once daily. 90 tablet 3 pravastatin (PRAVACHOL) 20 mg tablet Take 1 tablet by mouth once daily. 90 tablet 1 lisinopril 2.5 mg tablet Take 1 tablet by mouth once daily. 90 tablet 1 gabapentin (NEURONTIN) 600 mg tablet Take 2 tablets by mouth three times daily for 180 days. 540 tablet 1 DULoxetine (CYMBALTA) 30 mg capsule Take 1 capsule by mouth once daily. 90 capsule 1 tamsulosin (FLOMAX) 0.4 mg Take 1 capsule by mouth once daily. 30 minutes after the same meal each day. 30 capsule 11 COMPOUNDED PRESCRIPTION rollator walker #: one Dx: I63.50, Z86.73, R26.89, G60.9, M62.81 and M48.06 1 Device 0 multivitamins w-minerals/lut(CENTRUM SILVER TAB) Take one(1) tablet daily. 0 Current Facility-Administered Medications Medication Dose Route Frequency Provider Last Rate Last Admin perflutren lipid microspheres 1.3 mL in NaCl (PF) 0.9% 10 mL injection (DEFINITY) INTRAVENOUS DIRECTED PRN Phoebe Muro PA-C sodium chloride 0.9 % (flush) 10 mL (BD POSIFLUSH) 10 mL INTRAVENOUS DIRECTED PRN Phoebe Muro PA-C Review of Systems Constitutional: Negative for chills, diaphoresis, fever, malaise/fatigue and weight loss. HENT: Negative for congestion, ear discharge, ear pain, hearing loss, nosebleeds, sinus pain, sore throat and tinnitus. Eyes: Negative for blurred vision, double vision, photophobia, pain, discharge and redness. Respiratory: Negative for cough, hemoptysis, sputum production, shortness of breath, wheezing and stridor. Cardiovascular: Negative for chest pain, palpitations, orthopnea, claudication, leg swelling and PND. Gastrointestinal: Negative for abdominal pain, blood in stool, constipation, diarrhea, heartburn, melena, nausea and vomiting. Genitourinary: Negative for dysuria, flank pain, frequency, hematuria and urgency. Musculoskeletal: Negative for back pain, falls, joint pain, myalgias and neck pain. Skin: Negative for itching and rash. Neurological: Negative for dizziness, tingling, tremors, sensory change, speech change, focal weakness, seizures, loss of consciousness, weakness and headaches. Endo/Heme/Allergies: Negative for environmental allergies and polydipsia. Does not bruise/bleed easily. Psychiatric/Behavioral: Negative for depression, hallucinations, memory loss, substance abuse and suicidal ideas. The patient is not nervous/anxious and does not have insomnia. Physical Examination: Vitals:BP 112/58 Pulse 57 Wt 286 lb (129.7kg) SpO2 93% BP w/Orthostatic Vitals Date and Time Orthostatic BP Orthostatic Pulse BP Pulse BP Position BP Site BP Cuff Size 09/23/22 1402 -- -- 112/58 57 -- -- -- Last 2 Encounter Wt Readings: Date: Wt: 09/23/2022 129.7 kg (286 lb) 08/06/2022 130 kg (286 lb 9.6 oz) Physical Exam Constitutional: General: He is not in acute distress. Appearance: He is not diaphoretic. HENT: Head: Normocephalic and atraumatic. Right Ear: External ear normal. Left Ear: External ear normal. Nose: Nose normal. Mouth/Throat: Pharynx: Oropharynx is clear. Eyes: General: Right eye: No discharge. Left eye: No discharge. Conjunctiva/sclera: Conjunctivae normal. Pupils: Pupils are equal, round, and reactive to light. Cardiovascular: Rate and Rhythm: Normal rate and regular rhythm. Heart sounds: Normal heart sounds, S1 normal and S2 normal. No murmur heard. No friction rub. No gallop. No S3 or S4 sounds. Pulmonary: Effort: Pulmonary effort is normal. No respiratory distress. Breath sounds: Normal breath sounds. No wheezing or rales. Chest: Chest wall: No tenderness. Musculoskeletal: General: Normal range of motion. Cervical back: Normal range of motion and neck supple. Skin: General: Skin is warm and dry. Neurological: Mental Status: He is alert and oriented to person, place, and time. Psychiatric: Mood and Affect: Mood normal. Thought Content: Thought content normal. Judgment: Judgment normal. Pertinent Labs: CBC: Hemoglobin (g/dL) Date Value 03/19/2022 14.2 03/13/2021 13.7 Hematocrit (%) Date Value 03/19/2022 46.0 03/13/2021 43.5 WBC (k/uL) Date Value 03/19/2022 7.76 03/13/2021 9.19 Platelet Count (k/uL) Date Value 03/19/2022 183 03/13/2021 195 BMP: Glucose (mg/dL) Date Value 03/19/2022 161 03/13/2021 169 Potassium (mmol/L) Date Value 03/19/2022 4.5 03/13/2021 4.3 Sodium (mmol/L) Date Value 03/19/2022 139 03/13/2021 144 Chloride (mmol/L) Date Value 03/19/2022 105 03/13/2021 107 CO2 (mmol/L) Date Value 03/19/2022 24 03/13/2021 24 Creatinine (mg/dL) Date Value 03/19/2022 0.94 03/13/2021 0.93 BUN (mg/dL) Date Value 03/19/2022 19 03/13/2021 22 Anion Gap (mmol/L) Date Value 03/19/2022 10 03/13/2021 13 Calcium (mg/dL) Date Value 03/13/2021 8.9 Calcium, Total (mg/dL) Date Value 03/19/2022 8.9 INR: Lipid Profile: Total Cholesterol, Nonfasting Date Value Ref Range Status 03/19/2022 147 <200 mg/dL Final Comment: <200 mg/dL, Desirable 200-239 mg/dL, Borderline high >239 mg/dL, High HDL Cholesterol, Nonfasting Date Value Ref Range Status 03/19/2022 36 (L) >39 mg/dL Final Comment: 40-59 mg/dL, Acceptable >59 mg/dL, High: Negative risk factor for coronary heart disease <40 mg/dL, Low: Positive risk factor for coronary heart disease LDL Cholesterol, Nonfasting Date Value Ref Range Status 03/19/2022 73 <100 mg/dL Final Comment: <100 mg/dL, Optimal 100-129 mg/dL, Near optimal/above optimal 130-159 mg/dL, Borderline high 160-189 mg/dL, High >189 mg/dL, Very high Secondary prevention optimal LDL Cholesterol levels are recommended to be < 70 mg/dL Triglycerides, Nonfasting Date Value Ref Range Status 03/19/2022 192 (H) <150 mg/dL Final Comment: <150 mg/dL, Normal 150-199 mg/dL, Borderline high 200-499 mg/dL, High >499 mg/dL, Very high Hemoglobin A1C: No results found for: HGBA1C TSH: No results found for: TSHREFL Prior Cardiac Testing none Assessment and Plan: 82 years old gentleman with prior history of supraventricular tachycardia and hypertensive heart disease Hypertension Well-controlled Cont. Lisinopril 2. Supraventricular tachycardia No further episode 3. Bradycardia Discontinue Cardizem 4. Orthostatic hypotension Patient's symptoms suggest orthostasis recommend adjusting his Flomax and Proscar Follow up plannin months Electronically signed by Nikko Jose MD on September 23, 2022, 2:19 PM The above note was partially created using a dictation recognition software. A reasonable attempt has been made to correct any errors. [facility]23 Miscellaneous Notes* Telephone Encounter - Taz Marie LPN - 09/17/2022 2:19 PM EDT Pt also requested this via My Chart. Please see My Chart message. Taz Marie LPN documented in this [facility]Pe[facility]03-28-[facility]23 Miscellaneous Notes* Telephone Encounter - Taz Marie LPN - 09/17/2022 1:58 PM EDT Last refill 06/27/22 Qty: 90 with 1 refill REBECCA 08/06/22 NOV 10/02/22 documented in this encounterPe[facility]03-27-2023 Miscellaneous Notes* Telephone Encounter - Jose Fam MD - 09/16/2022 8:20 AM EDT The following approved medication requests have been transmitted electronically. Requested Prescriptions Signed Prescriptions Disp Refills dilTIAZem (CARDIZEM) 30 mg tablet 180 tablet 1 Sig: Take 1 tablet by mouth twice daily. furosemide (LASIX) 20 mg tablet 90 tablet 1 Sig: Take 1 tablet by mouth once daily. Jose Fam MD * Telephone Encounter - Nick Spence MA - 09/16/2022 7:50 AM EDT Patient has been identified by name and date of : Yes Requested Prescriptions Pending Prescriptions Disp Refills dilTIAZem (CARDIZEM) 30 mg tablet 180 tablet 1 Sig: Take 1 tablet by mouth twice daily. furosemide (LASIX) 20 mg tablet 90 tablet 1 Sig: Take 1 tablet by mouth once daily. RX INSTRUCTIONS: Patient aware RX will be sent to pharmacy. No need to notify patient. Nick Spence MA Rebecca: 02/2022 Nov: 09/2022 Last refill; 02/2022 documented in this encounterPe[facility]03-[facility]-2023 Miscellaneous Notes* Telephone Encounter - Jaye Guevara - 08/29/2022 2:29 PM EST Pt contacted and scheduled for 09/23 at 2pm in a cancellation slot. Jaye Guevara * Telephone Encounter - Jaye Guevara - 08/29/2022 11:06 AM EST Images from the original note were not included. Nikko Jose MD Patient need office evaluation jake * Telephone Encounter - Korina Ortiz LPN - 08/27/2022 2:58 PM EST Regan called with concerns of heart rate being in below 60, running around 53 to 55, and feeling SOBon exertion. Patient questioning if may need pace maker as discussed at previous visit. Please review and advise, Thank you. Regan# [phone] documented in this encounterPe[facility]02-14-2023 History of Present illness Narrative* Phoebe Muro PA-C - 08/06/2022 12:29 PM EST Chief Complaint Patient presents with: ER F/U: [facility] ER FU 08/01/22 HPI Regan Arango is a 81 year old male who presents here today for ER Follow Up.. Patient was outside on night and it was very windy out. Ended up losing his balancing froma amy of wind and falling backwards onto cement. Landed directly on his back and Did hit his head. Went to [facility] ER. CT of head and neck was negative. CT thoracic showed acute fracture ofa osteophyte anterior to T4 (which is not where patient's pain was located and incidentally noted multiple lung nodules measuring up to 7mm. CT lumbar did not show any acute findings. Patient states he is feeling better. He still has some pain with coughing. No pain with breathing. No LOC No headaches No confusion. Past medical history, appointments, medications, allergies reviewed. Previous Medical History PAST MEDICAL HISTORY Diagnosis Date 1st degree AV block 09/08/2015 AC (acromioclavicular) joint arthritis 08/09/2009 Acquired hypothyroidism 04/03/2015 Actinic skin damage 03/08/2012 Acute, but ill-defined, cerebrovascular disease 07/13/2008 Advance directive discussed with patient 03/21/2022 Discussed 02/2022 Anemia 07/24/2015 Arthritis of knee 10/30/2011 At risk for falls 05/28/2019 Atypical nevus of thoracic region 02/03/2014 Balance problem 04/24/2014 Due to CVA in 2008 and right leg weakness Bilateral carotid artery stenosis 12/27/2021 US 12/2021: R 40-60% L 20-40% Bilateral leg edema 08/01/2014 Bladder cancer (HCC) 09/07/2014 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 (HCC) 07/13/2008 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 Class 2 obesity due to excess calories without serious comorbidity with body mass index (BMI) of 39.0 to 39.9 in adult 09/04/2018 Diastasis recti 08/01/2014 Diverticulosis of colon (without mention of hemorrhage) Dupuytren's contracture of both hands 09/21/2012 Elevated fasting blood sugar 04/16/2010 Essential hypertension Essential hypertension Familial peripheral neuropathy 06/02/2015 Gait difficulty 04/29/2016 Gastroesophageal reflux disease without esophagitis 04/03/2015 Greater trochanteric bursitis 03/20/2016 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09/04/2012 History of CVA (cerebrovascular accident) 02/2008 residual weakness in right leg History of giant cell arteritis 03/29/2008 Hx of intermediate frame tender use of blood thinners Irritated//Inflamed Seborrheic Keratosis 03/08/2012 Living will on file 03/21/2022 DPA: Sudarshan () Low back pain 01/13/2014 Lower urinary tract symptoms (LUTS) 08/02/2014 Lumbar stenosis with neurogenic claudication 01/13/[address] Starr Mild pulmonary hypertension (HCC) 09/22/[address] Hamilton, not able to tolerate CPAP for JESSY. Mixed hyperlipidemia 05/24/2008 Multiple renal cysts 08/01/2014 Complex, left Neuropathy 11/15/2016 Related to low back disease OAB (overactive bladder) 07/30/2019 JESSY (obstructive sleep apnea) 12/20/2014 Was on CPAP and could not tolerate. Pain in both hands 12/19/2015 Postlaminectomy syndrome 05/08/2010 Premature supraventricular beats 09/08/2015 Right leg weakness 04/25/2014 Sebaceous cyst 06/08/2009 Stasis dermatitis of both legs 06/02/2015 SVT (supraventricular tachycardia) ([facility]) 07/17/2020 Thoracic or lumbosacral neuritis or radiculitis, unspecified 05/05/2009 Thumb pain, left 11/26/2017 Tinnitus 07/26/2017 Unspecified arthropathy, lower leg 10/12/2008 Venous insufficiency (chronic) (peripheral) 06/02/2015 Vertigo following cerebrovascular accident 07/23/2010 Viral warts, unspecified 04/09/2013 Xerosis cutis 09/04/2012 Previous Surgical History PAST SURGICAL HISTORY Procedure Laterality Date 2D ECHO (EXEP) 08/2015 EF=64%, 1+ TR and mild Pulm HTN COLONOSCOPY FLX DX W/COLLJ SPEC WHEN PFRMD 02/06/2011 Colonoscopy, repeat 10 yrs CYSTO W/REMOVAL OF LESIONS SMALL 08/31/14 ESOPHAGOGASTRODUODENOSCOPY TRANSORAL DIAGNOSTIC 12/14/2018 EGD FASCT PALM W/WO Z-PLASTY TISSUE REARGMT/SKN GRFT Left 09/08/2018 Left 3rd finger fascietomy with skin graft, left 4th finger facietomy with local soft tissue rearrangements and trigger finger release L3-4 and L4-5 laminoforaminotomy 2009 LIGATION/BIOPSY TEMPORAL ARTERY 03-30-08 RIGHT, negitive. LUMBAR SPINE FUSION COMBINED 05/05/2015 MAL LESION FACE,EAR,EYEL 1.1-2CM 04/20/08 Exc. right lateral islam skin lesion and right forehead OPEN REPAIR OF ROTATOR CUFF ACUTE 2000 Rotator cuff repair left PAST SURGICAL HISTORY OF ingrown toe nail removed PAST SURGICAL HISTORY OF 1965 cyst removed from bottom of spine SHOULDER ARTHROSCOPY/SURGERY 08/02/2010 Open Rt subacromial decompression STRESS TEST 04/10/2015 WNL STRESS TEST NUCLEAR 07/09/2018 negative Family History FAMILY HISTORY Problem Relation Age of Onset Hypertension Mother Stroke Mother other (headaches) Mother Ischemic Heart Disease Father Heart Brother Patient Allergies ALLERGIES Allergen Reactions Ditropan [Oxybutyni* Other: See Comments Nausea, brain fog, increased weakness, decreased appetite, and increased restless leg symptoms. Prednisone Other: See Comments Had GI problems, headaches. Patient states he was on high dose for almost 90 days Current Medications Current Outpatient Medications on File Prior to Visit Medication Sig vit C/E/Zn/coppr/lutein/zeaxan (PRESERVISION AREDS-2 ORAL) Take by mouth. ZINC ORAL Take by mouth once daily. levothyroxine (LEVOXYL) 50 mcg tablet Take 1/2 tab on Friday only along with a 150 mcg tab.Take on empty stomach. For Thyroid levothyroxine (SYNTHROID) 150 mcg tablet Take 1 tablet by mouth once daily. Fri through Friday withextra 25 mcg tab on Sundays only traZODone (DESYREL) 50 mg tablet Take 1 tablet by mouth daily at bedtime. finasteride (PROSCAR) 5 mg tablet Take 1 tablet by mouth once daily. mupirocin (BACTROBAN) 2 % ointment Apply to affected area three times daily. cyanocobalamin (VITAMIN B-12) 1,000 mcg tab Take 1 tablet by mouth once daily. dilTIAZem (CARDIZEM) 30 mg tablet Take 1 tablet by mouth twice daily. pravastatin (PRAVACHOL) 20 mg tablet Take 1 tablet by mouth once daily. lisinopril 2.5 mg tablet Take 1 tablet by mouth once daily. gabapentin (NEURONTIN) 600 mg tablet Take 2 tablets by mouth three times daily for 180 days. furosemide (LASIX) 20 mg tablet Take 1 tablet by mouth once daily. DULoxetine (CYMBALTA) 30 mg capsule Take 1 capsule by mouth once daily. tamsulosin (FLOMAX) 0.4 mg Take 1 capsule by mouth once daily. 30 minutes after the same meal each day. potassium chloride ER (KLOR-CON M20) 20 mEq tablet Take 1 tablet by mouth once daily. COMPOUNDED PRESCRIPTION rollator walker #: one Dx: I63.50, Z86.73, R26.89, G60.9, M62.81 and M48.06 multivitamins w-minerals/lut(CENTRUM SILVER TAB) Take one(1) tablet daily. clopidogrel (PLAVIX) 75 mg tablet Take 1 tablet by mouth once daily. (Patient not taking: Reported on 08/06/2022) Current Facility-Administered Medications on File Prior to Visit Medication perflutren lipid microspheres 1.3 mL in NaCl (PF) 0.9% 10 mL injection (DEFINITY) sodium chloride 0.9 % (flush) 10 mL (BD POSIFLUSH) Social History Social History Tobacco Use Smoking status: Never Smokeless tobacco: Never Vaping Use Vaping Use: Never used Substance Use Topics Alcohol use: No Drug use: No Review of Symptoms REVIEW OF SYSTEMS See hpi EXAM: BP 112/60 Pulse 62 Resp 18 Wt 130 kg (286 lb 9.6 oz) SpO2 94% BMI 39.25 kg/m General Appearance: Well appearing, alert, in no acute distress, well-hydrated, well nourished. andObese. HEAD: bruising noted with mild tenderness. No hematoma Lungs: Lungs clear to auscultation. No wheezing, rhonchi, rales.. Heart: RRR without murmur, gallop, or rubs. No ectopy. Musculoskeletal: No pain to palp. NVI. . Health Maintenance List SHINGRIX VACCINE(1 of 2) Never done ADVANCE DIRECTIVE DISCUSSION due on 06/23/2022 DTAP,TDAP,TD(2 - Td or Tdap) due on 02/01/2025 DIABETES SCREEN due on 03/19/2025 INFLUENZA Completed DEPRESSION ASSESSMENT Completed COVID-19 VACCINE Completed PNEUMOCOCCAL: 65+ Completed Data reviewed See HPI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 further options. Causes of compression fracture Many compression fractures result from osteoporosis. This disease thins your bones and weakens so they can't withstand normal pressure and are more likely to break. Trauma from a car accident or hardfall can fracture even healthy vertebrae. In rare cases, vertebrae may fracture for unknown reasons. When to go to the emergency room (ER) Call 911 if you've been in an accident or had a fall and have neck or back pain, especially when pain occurs with any of these symptoms: Loss of control over your bowels or bladder Numbness or weakness High fever Unexplained back pain in a person with cancer 4819-4921 [employer]. [address] [place] [address]. All rights reserved. This information is not intended as a substitute for professional medical care. Always follow yourhealthcare professional's instructions. Additional Information VACCINATE! IT SAVES LIVES! Members of the community who have not yet received the COVID-19 vaccine and would like to receive it can visit one of [facility] vaccine clinics. There are many vaccine clinic locations within the [facility]. For locations and available times, please visit [email or web address]. It is important to note that some COVID mobile vaccine clinics are held outdoors and may be canceled in rainy orstormy conditions. To learn more about pediatric vaccinations (ages 5-11), we invite you to visit the [facility] webpage. [email or web address] [email or web address] learn more about the COVID-19 vaccine, we invite you to visit the [facility] website for a list of frequently asked questions. [email or web address] _[email or web address] [facility] Patient Portal Access Instructions: Stay connected with your healthcare team and access your personal medical information anytime with the [facility] Patient Portal. If you would like a full copy of your medical records please contact the [facility] Medical Records Department Friday through Friday between 8a.m. and 4:30p.m. Please follow the directions below to access the portal: 1.Access the email account you provided upon registration to the [facility].2.Look for an invitation email from [facility].3.Open the email and access the invitation link: [facility] to [facility]4.Fill in the required dasilva to create your account. Sign into [email or web address] with your username and password that you created in the above steps to stay up to date. You can then view a summary of results, a summary of your visits, and the ability to download your summaries to your computer or send the information securely to a physician. Remember that your healthcare information is confidential, so carefully consider who you will allow to register on the [facility] Patient Portal for access to your information. You can also access the [facility] Patient Portal on the Webydo. alexy. Simply click on Health Records under Surf Air and then click on the Pam logo. HOW TO SAFELY DISPOSE OF PRESCRIPTION MEDICATIONS Please use one of the following methods to safely dispose of your unused medications. 1.Use a drug disposal kit: the drug disposal pouch allows you to safely discard your old and unuseddrugs. Ask your nurse to give you one when you are discharged.2.Visit a local take-back location: Many local pharmacies and police departments have programs that collect old and unwanted prescriptiondrugs. Call your local pharmacy or go to http://bit.ly/0H7Kh8t to find one close to you.3.Make use of household items: Use cat litter or old coffee grounds to dispose medications if other options arenot available. Mix your drugs with these household products, seal them in an airtight container andthrow it into the garbage. Call [facility]: [phone] to be sure your drugs can be disposed of in this way. Some medicines may require a different approach.4.Never flush your medications down the toilet. IF YOU HAVE BEEN PRESCRIBED AN OPIOIDS FOR PAIN If you have been prescribed an opioid (such as hydrocodone, oxycodone or morphine), it is critical to understand the possible side effects and risks of opioid pain medications. Even when taken as directed, opioids can have several side effects including: Tolerance, meaning you might need to take more of a medication for the same pain relief. Nausea, vomiting and/or constipation. Sleepiness, dizziness, dry mouth, confusion, depression or itching. Physical dependence, meaning you have withdrawal symptoms when a medication is stopped ? this can develop within a few days. KNOW YOUR RESPONSIBILITIES It is important to know exactly how much and how often to take the opioid pain medications you are prescribed. Never take opioids in higher amounts or more often than prescribed. Do not combine opioids with alcohol or other drugs that cause drowsiness, such as benzodiazepines, also known as benzos,including diazepam and alprazolam, muscle relaxants or sleep aids. Never sell or share prescriptionopioids. This is illegal. Store opioids in a secure place and out of reach of others (including children, family, friends and visitors). The last page(s) of this document has been signed and retained as a CHART COPY Signatures Patient Education Materials Pulmonary Nodule, Solitary Back Fracture (Compression Fracture) Medication Leaflets My discharge plan and instructions have been reviewed and explained to me and I,REGAN ARANGO understand my current condition and have read and understand these discharge instructions. I have received a written copy of the plan/instructions. If I have questions, I am aware that I should contact my doctor. Patient/Director Cloud Transformation Signature: Date/Time: Relationship to Patient: Witness Name/Signature: Date/Time: [facility]02-09-2023 Note ORIGINAL EXAMINATION: CT OF THE LUMBAR SPINE WITHOUT CONTRAST 08/01/2022 TECHNIQUE: CT of the lumbar spine was performed without the administration of intravenous contrast. Multiplanar reformatted images are provided for review. Adjustment of mA and/or kV according to patient size was utilized. Automated exposure control, iterative reconstruction, and/or weight based adjustment of the mA/kV was utilized to reduce the radiation dose to as low as reasonably achievable. COMPARISON: None HISTORY: ORDERING SYSTEM PROVIDED HISTORY: Reason for Exam: pain; trauma patient FINDINGS: BONES/ALIGNMENT: There are 5 uzk-oxq-lpjwink lumbar type vertebral bodies. Slight levocurvature of the lumbar spine centered about L2-L3. 2 mm retrolisthesis and 2 mm retrolisthesis of L1 on L2 and L2 on L3 respectively. Trace anterolisthesis of L3 on L4. 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 Vertebral body heights are maintained. No acute fracture. Status post bilateral L3-L4 pedicle screw and paraspinal everett placement. The hardware appears intact with no evidence of loosening. Also status post L3 and L4 laminectomies. DEGENERATIVE CHANGES: Multilevel degenerative discs, endplate osteophytes, and facet arthropathy. Suboptimal visualization of the L3-L4 level due to streak artifact arising from the metallic hardware. No severe central canal or foraminal stenosis within the confines of suboptimal visualization. SOFT TISSUES/RETROPERITONEUM: No paraspinal mass. Fatty atrophy of the inferior paraspinal muscles. Moderate calcific atherosclerosis within the nonaneurysmal abdominal aorta. IMPRESSION: No acute fracture or traumatic listhesis. I have personally reviewed the images of this examination and agree with the resident's findings and interpretation. Interpreted by: Ange Espinoza Preliminary Report By: Sade Awan Electronically signed By Ange Espinoza Dictated Date: 08/01/2022 11:08:10 PM Prelim Date: 08/01/2022 11:13:27 PM Sign Date: 08/01/2022 11:17:12 PM Ordering Provider: HERI MEREDITH [facility]02-09-2023 Note ORIGINAL EXAMINATION: CT OF THE CHEST WITHOUT CONTRAST 08/01/2022 10:36 pm TECHNIQUE: CT of the chest was performed without the administration of intravenous contrast. Multiplanar reformatted images are provided for review. Automated exposure control, iterative reconstruction, and/or weight based adjustment of the mA/kV was utilized to reduce the radiation dose to as low as reasonably achievable. COMPARISON: None. HISTORY: ORDERING SYSTEM PROVIDED HISTORY: Fall Reason for Exam: pain; trauma patient FINDINGS: Mediastinum: The heart is not enlarged. No pericardial effusion. Severe calcific atherosclerosis within the coronary arteries. The great vessels are normal in course and caliber. Unremarkable esophagus. No mediastinal adenopathy. Evaluation of the hilar lymph nodes is suboptimal without IV contrast. Lungs/pleura: The central airways are patent. There is a 4 mm nodule at the right lung apex. A 7 mm nodule is seen at the left lung apex. A 7 mm nodule is noted at the left lung base. There are additional smaller nodules scattered throughout both lungs. There are scattered areas of pleural and parenchymal scarring. No pleural effusion or pneumothorax. Upper Abdomen: No acute process within the included images of the upper abdomen. Soft Tissues/Bones: No acute soft tissue abnormality. Acute fracture through an osteophyte anterior to the T4 vertebral body. Remote right anterior rib fractures. Degenerative changes the spine. IMPRESSION: Acute fracture through an osteophyte anterior to the T4 vertebral body. Multiple bilateral scattered pulmonary nodules measure up to 7 mm. Per Fleischner 2017 criteria, a CT at 3-6 months and then an additional CT follow-up at 18-24 months are recommended. Fleischner 2017 criteria do not apply to patients with known or suspected malignancy or immunocompromise. I have personally reviewed the images of this examination and agree with the resident's findings and interpretation. Interpreted by: Ange Espinoza Preliminary Report By: Sade Awan Electronically signed By Ange Espinoza Dictated Date: 08/01/2022 10:54:26 PM Prelim Date: 08/01/2022 11:03:35 PM Sign Date: 08/01/2022 11:11:17 PM [facility] Note ORIGINAL EXAMINATION: CT OF THE CERVICAL SPINE WITHOUT CONTRAST 08/01/2022 10:29 pm TECHNIQUE: CT of the cervical spine was performed without the administration of intravenous contrast. Multiplanar reformatted images are provided for review. Automated exposure control, iterative reconstruction, and/or weight based adjustment of the mA/kV was utilized to reduce the radiation dose to as low as reasonably achievable. COMPARISON: None. HISTORY: ORDERING SYSTEM PROVIDED HISTORY: Reason for Exam: pain; trauma patient FINDINGS: BONES/ALIGNMENT: Loss of the normal cervical lordosis. Normal sagittal alignment. The vertebral body heights are maintained. The craniocervical junction is maintained and the dens is intact. No acute fracture. DEGENERATIVE CHANGES: Multilevel degenerative discs, endplate osteophytes, uncovertebral hypertrophy, and facet arthropathy. No severe central canal stenosis. Variable foraminal stenosis. SOFT TISSUES: No prevertebral soft tissue swelling. There is biapical pleuroparenchymal scarring. Calcified atherosclerotic plaque is noted at the carotid bulbs bilaterally. IMPRESSION: No acute fracture or traumatic listhesis. I have personally reviewed the images of this examination and agree with the resident's findings and interpretation. Interpreted by: Ange Espinoza Preliminary Report By: Sade Awan Electronically signed By Ange Espinoza Dictated Date: 08/01/2022 10:38:45 PM Prelim Date: 08/01/2022 10:41:54 PM Sign Date: 08/01/2022 10:43:43 PM Ordering Provider: HERI MEREDITH [facility]02-09-2023 Note ORIGINAL EXAMINATION: CT OF THE HEAD WITHOUT CONTRAST 08/01/2022 10:21 pm TECHNIQUE: CT of the head was performed without the administration of intravenous contrast. Automated exposure control, iterative reconstruction, and/or weight based adjustment of the mA/kV was utilized to reduce the radiation dose to as low as reasonably achievable. COMPARISON: None. HISTORY: ORDERING SYSTEM PROVIDED HISTORY: Fall Reason for Exam: pain; trauma patient FINDINGS: BRAIN/VENTRICLES: No acute intracranial hemorrhage, mass effect, or midline shift. No large territorial infarct. No abnormal extra-axial fluid collection. Incidentally noted empty sella. Scattered white matter hypodensities are nonspecific but compatible with mild chronic microvascular angiopathy. Moderate parenchymal volume loss with commensurate ventricular dilation. Calcific atherosclerosis within the left vertebral and both internal carotid arteries. ORBITS: No acute abnormality. SINUSES: Mucosal thickening within both maxillary sinuses, both frontal sinuses, and the ethmoid air cells. Clear mastoid air cells. SOFT TISSUES/SKULL: Right posterior scalp hematoma and soft tissue swelling. IMPRESSION: No acute intracranial hemorrhage or mass effect. I have personally reviewed the images of this examination and agree with the resident's findings and interpretation. Interpreted by: Ange Espinoza Preliminary Report By: Sade Awan Electronically signed By Ange Espinoza Dictated Date: 08/01/2022 10:34:16 PM Prelim Date: 08/01/2022 10:37:05 PM Sign Date: 08/01/2022 10:40:42 PM Ordering Provider: HERI MEREDITH [facility]02-09-2023 Note ORIGINAL EXAMINATION: CT OF THE LUMBAR SPINE WITHOUT CONTRAST 08/01/2022 TECHNIQUE: CT of the lumbar spine was performed without the administration of intravenous contrast. Multiplanar reformatted images are provided for review. Adjustment of mA and/or kV according to patient size was utilized. Automated exposure control, iterative reconstruction, and/or weight based adjustment of the mA/kV was utilized to reduce the radiation dose to as low as reasonably achievable. COMPARISON: None HISTORY: ORDERING SYSTEM PROVIDED HISTORY: Reason for Exam: pain; trauma patient FINDINGS: BONES/ALIGNMENT: There are 5 ypl-hya-cmikwus lumbar type vertebral bodies. Slight levocurvature of the lumbar spine centered about L2-L3. 2 mm retrolisthesis and 2 mm retrolisthesis of L1 on L2 and L2 on L3 respectively. Trace anterolisthesis of L3 on L4. 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 Vertebral body heights are maintained. No acute fracture. Status post bilateral L3-L4 pedicle screw and paraspinal everett placement. The hardware appears intact with no evidence of loosening. Also status post L3 and L4 laminectomies. DEGENERATIVE CHANGES: Multilevel degenerative discs, endplate osteophytes, and facet arthropathy. Suboptimal visualization of the L3-L4 level due to streak artifact arising from the metallic hardware. No severe central canal or foraminal stenosis within the confines of suboptimal visualization. SOFT TISSUES/RETROPERITONEUM: No paraspinal mass. Fatty atrophy of the inferior paraspinal muscles. Moderate calcific atherosclerosis within the nonaneurysmal abdominal aorta. IMPRESSION: No acute fracture or traumatic listhesis. I have personally reviewed the images of this examination and agree with the resident's findings and interpretation. Interpreted by: Ange Espinoza Preliminary Report By: Sade Awan Electronically signed By Ange Espinoza Dictated Date: 08/01/2022 11:08:10 PM Prelim Date: 08/01/2022 11:13:27 PM Sign Date: 08/01/2022 11:17:12 PM Ordering Provider: [facility]02-09-2023 Note ORIGINAL EXAMINATION: CT OF THE CHEST WITHOUT CONTRAST 08/01/2022 10:36 pm TECHNIQUE: CT of the chest was performed without the administration of intravenous contrast. Multiplanar reformatted images are provided for review. Automated exposure control, iterative reconstruction, and/or weight based adjustment of the mA/kV was utilized to reduce the radiation dose to as low as reasonably achievable. COMPARISON: None. HISTORY: ORDERING SYSTEM PROVIDED HISTORY: Fall Reason for Exam: pain; trauma patient FINDINGS: Mediastinum: The heart is not enlarged. No pericardial effusion. Severe calcific atherosclerosis within the coronary arteries. The great vessels are normal in course and caliber. Unremarkable esophagus. No mediastinal adenopathy. Evaluation of the hilar lymph nodes is suboptimal without IV contrast. Lungs/pleura: The central airways are patent. There is a 4 mm nodule at the right lung apex. A 7 mm nodule is seen at the left lung apex. A 7 mm nodule is noted at the left lung base. There are additional smaller nodules scattered throughout both lungs. There are scattered areas of pleural and parenchymal scarring. No pleural effusion or pneumothorax. Upper Abdomen: No acute process within the included images of the upper abdomen. Soft Tissues/Bones: No acute soft tissue abnormality. Acute fracture through an osteophyte anterior to the T4 vertebral body. Remote right anterior rib fractures. Degenerative changes the spine. IMPRESSION: Acute fracture through an osteophyte anterior to the T4 vertebral body. Multiple bilateral scattered pulmonary nodules measure up to 7 mm. Per Fleischner 2017 criteria, a CT at 3-6 months and then an additional CT follow-up at 18-24 months are recommended. Fleischner 2017 criteria do not apply to patients with known or suspected malignancy or immunocompromise. I have personally reviewed the images of this examination and agree with the resident's findings and interpretation. Interpreted by: Ange Espinoza Preliminary Report By: Sade Awan Electronically signed By Ange Espinoza Dictated Date: 08/01/2022 10:54:26 PM Prelim Date: 08/01/2022 11:03:35 PM Sign Date: 08/01/2022 11:11:17 PM Ordering Provider: [facility]02-09-2023 Note ORIGINAL EXAMINATION: CT OF THE CERVICAL SPINE WITHOUT CONTRAST 08/01/2022 10:29 pm TECHNIQUE: CT of the cervical spine was performed without the administration of intravenous contrast. Multiplanar reformatted images are provided for review. Automated exposure control, iterative reconstruction, and/or weight based adjustment of the mA/kV was utilized to reduce the radiation dose to as low as reasonably achievable. COMPARISON: None. HISTORY: ORDERING SYSTEM PROVIDED HISTORY: Reason for Exam: pain; trauma patient FINDINGS: BONES/ALIGNMENT: Loss of the normal cervical lordosis. Normal sagittal alignment. The vertebral body heights are maintained. The craniocervical junction is maintained and the dens is intact. No acute fracture. DEGENERATIVE CHANGES: Multilevel degenerative discs, endplate osteophytes, uncovertebral hypertrophy, and facet arthropathy. No severe central canal stenosis. Variable foraminal stenosis. SOFT TISSUES: No prevertebral soft tissue swelling. There is biapical pleuroparenchymal scarring. Calcified atherosclerotic plaque is noted at the carotid bulbs bilaterally. IMPRESSION: No acute fracture or traumatic listhesis. I have personally reviewed the images of this examination and agree with the resident's findings and interpretation. Interpreted by: Ange Espinoza Preliminary Report By: Sade Awan Electronically signed By Ange Espinoza Dictated Date: 08/01/2022 10:38:45 PM Prelim Date: 08/01/2022 10:41:54 PM Sign Date: 08/01/2022 10:43:43 PM Ordering Provider: [facility]02-09-2023 Note ORIGINAL EXAMINATION: CT OF THE HEAD WITHOUT CONTRAST 08/01/2022 10:21 pm TECHNIQUE: CT of the head was performed without the administration of intravenous contrast. Automated exposure control, iterative reconstruction, and/or weight based adjustment of the mA/kV was utilized to reduce the radiation dose to as low as reasonably achievable. COMPARISON: None. HISTORY: ORDERING SYSTEM PROVIDED HISTORY: Fall Reason for Exam: pain; trauma patient FINDINGS: BRAIN/VENTRICLES: No acute intracranial hemorrhage, mass effect, or midline shift. No large territorial infarct. No abnormal extra-axial fluid collection. Incidentally noted empty sella. Scattered white matter hypodensities are nonspecific but compatible with mild chronic microvascular angiopathy. Moderate parenchymal volume loss with commensurate ventricular dilation. Calcific atherosclerosis within the left vertebral and both internal carotid arteries. ORBITS: No acute abnormality. SINUSES: Mucosal thickening within both maxillary sinuses, both frontal sinuses, and the ethmoid air cells. Clear mastoid air cells. SOFT TISSUES/SKULL: Right posterior scalp hematoma and soft tissue swelling. IMPRESSION: No acute intracranial hemorrhage or mass effect. I have personally reviewed the images of this examination and agree with the resident's findings and interpretation. Interpreted by: Ange Espinoza Preliminary Report By: Sade Awan Electronically signed By Ange Espinoza Dictated Date: 08/01/2022 10:34:16 PM Prelim Date: 08/01/2022 10:37:05 PM Sign Date: 08/01/2022 10:40:42 PM Ordering Provider: [facility]02-06-2023 Miscellaneous Notes* Telephone Encounter - Cindy Méndez RN - 07/29/2022 11:13 AM EST Pt. notified. Voices understanding. Cindy Méndez RN * Telephone Encounter - Cindy Méndez RN - 07/29/2022 11:13 AM EST Images from the original note were not included. MD Jeannine Tidwell RN; [facility] Cardiology Pool 3 days ago Holter shows fewe runs of SVT Will cont. Same medical therapy jake * Telephone Encounter - Jeannine Guajardo RN - 07/25/2022 12:16 PM EST Pt called in asking about monitor results. Please review and advise. Jeannine Guajardo RN * Telephone Encounter - Cindy Madrigal RN - 07/23/2022 9:51 AM EST Received phone call from Jayda with [facility]. Reports episode of v tach that was 197 bpm lasting for 2.2 seconds. Episode can be found on page 14 strip 6, took place on 07/08 at 12:38 pm. [facility] Instructions* Patient Instructions* Phoebe Muro PA-C - 07/23/2022 10:05 AM EST Please reschedule your routine office visit around September 19. [facility] History of Present illness Narrative* Phoebe Muro PA-C - 07/23/2022 10:01 AM EST Chief Complaint Patient presents with: Follow Up: Wound [place] HPI Regan Arango is a 81 year old male who presents here today for recheck. Patient was seen for a lesion concern about a month ago. Lesion was an SK but it appeared that patient had recently scratched it and caused it to bleed. During the exam, multiple open small wounds was noted on pts back, neck and scalp. Culture showed significant staph growth and so we tx with antibiotics. Patient states his told him lesions all look healed. Patient is feeling better. Past medical history, appointments, medications, allergies reviewed. Previous Medical History PAST MEDICAL HISTORY Diagnosis Date 1st degree AV block 09/08/2015 AC (acromioclavicular) joint arthritis 08/09/2009 Acquired hypothyroidism 04/03/2015 Actinic skin damage 03/08/2012 Acute, but ill-defined, cerebrovascular disease 07/13/2008 Advance directive discussed with patient 03/21/2022 Discussed 02/2022 Anemia 07/24/2015 Arthritis of knee 10/30/2011 At risk for falls 05/28/2019 Atypical nevus of thoracic region 02/03/2014 Balance problem 04/24/2014 Due to CVA in 2008 and right leg weakness Bilateral carotid artery stenosis 12/27/2021 US 12/2021: R 40-60% L 20-40% Bilateral leg edema 08/01/2014 Bladder cancer (HCC) 09/07/2014 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 ([facility]) 07/13/2008 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 Class 2 obesity due to excess calories without serious comorbidity with body mass index (BMI) of 39.0 to 39.9 in adult 09/04/2018 Diastasis recti 08/01/2014 Diverticulosis of colon (without mention of hemorrhage) Dupuytren's contracture of both hands 09/21/2012 Elevated fasting blood sugar 04/16/2010 Essential hypertension Essential hypertension Familial peripheral neuropathy 06/02/2015 Gait difficulty 04/29/2016 Gastroesophageal reflux disease without esophagitis 04/03/2015 Greater trochanteric bursitis 03/20/2016 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09/04/2012 History of CVA (cerebrovascular accident) 02/2008 residual weakness in right leg History of giant cell arteritis 03/29/2008 Hx of long-term use of blood thinners Irritated//Inflamed Seborrheic Keratosis 03/08/2012 Living will on file 03/21/2022 DPA: Sudarshan () Low back pain 01/13/2014 Lower urinary tract symptoms (LUTS) 08/02/2014 Lumbar stenosis with neurogenic claudication 01/13/[address] Starr Mild pulmonary hypertension ([facility]) 09/22/[address] Hamilton, not able to tolerate CPAP for JESSY. Mixed hyperlipidemia 05/24/2008 Multiple renal cysts 08/01/2014 Complex, left Neuropathy 11/15/2016 Related to low back disease OAB (overactive bladder) 07/30/2019 JESSY (obstructive sleep apnea) 12/20/2014 Was on CPAP and could not tolerate. Pain in both hands 12/19/2015 Postlaminectomy syndrome 05/08/2010 Premature supraventricular beats 09/08/2015 Right leg weakness 04/25/2014 Sebaceous cyst 06/08/2009 Stasis dermatitis of both legs 06/02/2015 SVT (supraventricular tachycardia) ([facility]) 07/17/2020 Thoracic or lumbosacral neuritis or radiculitis, unspecified 05/05/2009 Thumb pain, left 11/26/2017 Tinnitus 07/26/2017 Unspecified arthropathy, lower leg 10/12/2008 Venous insufficiency (chronic) (peripheral) 06/02/2015 Vertigo following cerebrovascular accident 07/23/2010 Viral warts, unspecified 04/09/2013 Xerosis cutis 09/04/2012 Previous Surgical History PAST SURGICAL HISTORY Procedure Laterality Date 2D ECHO (EXEP) 08/2015 EF=64%, 1+ TR and mild Pulm HTN COLONOSCOPY FLX DX W/COLLJ SPEC WHEN PFRMD 02/06/2011 Colonoscopy, repeat 10 yrs CYSTO W/REMOVAL OF LESIONS SMALL 08/31/14 ESOPHAGOGASTRODUODENOSCOPY TRANSORAL DIAGNOSTIC 12/14/2018 EGD FASCT PALM W/WO Z-PLASTY TISSUE REARGMT/SKN GRFT Left 09/08/2018 Left 3rd finger fascietomy with skin graft, left 4th finger facietomy with local soft tissue rearrangements and trigger finger release L3-4 and L4-5 laminoforaminotomy 2009 LIGATION/BIOPSY TEMPORAL ARTERY 03-30-08 RIGHT, negitive. LUMBAR SPINE FUSION COMBINED 05/05/2015 MAL LESION FACE,EAR,EYEL 1.1-2CM 04/20/08 Exc. right lateral islam skin lesion and right forehead OPEN REPAIR OF ROTATOR CUFF ACUTE 2000 Rotator cuff repair left PAST SURGICAL HISTORY OF ingrown toe nail removed PAST SURGICAL HISTORY OF 1965 cyst removed from bottom of spine SHOULDER ARTHROSCOPY/SURGERY 08/02/2010 Open Rt subacromial decompression STRESS TEST 04/10/2015 WNL STRESS TEST NUCLEAR 07/09/2018 negative Family History FAMILY HISTORY Problem Relation Age of Onset Hypertension Mother Stroke Mother other (headaches) Mother Ischemic Heart Disease Father Heart Brother Patient Allergies ALLERGIES Allergen Reactions Ditropan [Oxybutyni* Other: See Comments Nausea, brain fog, increased weakness, decreased appetite, and increased restless leg symptoms. Prednisone Other: See Comments Had GI problems, headaches. Patient states he was on high dose for almost 90 days Current Medications Current Outpatient Medications on File Prior to Visit Medication Sig levothyroxine (LEVOXYL) 50 mcg tablet Take 1/2 tab on Friday only along with a 150 mcg tab.Take on empty stomach. For Thyroid levothyroxine (SYNTHROID) 150 mcg tablet Take 1 tablet by mouth once daily. Fri through Friday withextra 25 mcg tab on Sundays only traZODone (DESYREL) 50 mg tablet Take 1 tablet by mouth daily at bedtime. finasteride (PROSCAR) 5 mg tablet Take 1 tablet by mouth once daily. clopidogrel (PLAVIX) 75 mg tablet Take 1 tablet by mouth once daily. mupirocin (BACTROBAN) 2 % ointment Apply to affected area three times daily. cyanocobalamin (VITAMIN B-12) 1,000 mcg tab Take 1 tablet by mouth once daily. dilTIAZem (CARDIZEM) 30 mg tablet Take 1 tablet by mouth twice daily. pravastatin (PRAVACHOL) 20 mg tablet Take 1 tablet by mouth once daily. lisinopril 2.5 mg tablet Take 1 tablet by mouth once daily. gabapentin (NEURONTIN) 600 mg tablet Take 2 tablets by mouth three times daily for 180 days. furosemide (LASIX) 20 mg tablet Take 1 tablet by mouth once daily. DULoxetine (CYMBALTA) 30 mg capsule Take 1 capsule by mouth once daily. tamsulosin (FLOMAX) 0.4 mg Take 1 capsule by mouth once daily. 30 minutes after the same meal each day. potassium chloride ER (KLOR-CON M20) 20 mEq tablet Take 1 tablet by mouth once daily. COMPOUNDED PRESCRIPTION rollator walker #: one Dx: I63.50, Z86.73, R26.89, G60.9, M62.81 and M48.06 multivitamins w-minerals/lut(CENTRUM SILVER TAB) Take one(1) tablet daily. Current Facility-Administered Medications on File Prior to Visit Medication perflutren lipid microspheres 1.3 mL in NaCl (PF) 0.9% 10 mL injection (DEFINITY) sodium chloride 0.9 % (flush) 10 mL (BD POSIFLUSH) Social History Social History Tobacco Use Smoking status: Never Smokeless tobacco: Never Vaping Use Vaping Use: Never used Substance Use Topics Alcohol use: No Drug use: No Review of Symptoms REVIEW OF SYSTEMS See hp EXAM: BP 120/64 Pulse 64 Resp 18 SpO2 94% General Appearance: Well appearing, alert, in no acute distress, well-hydrated, well nourished.. Skin: multiple SK seen. No irritated lesions or wounds. . Health Maintenance List SHINGRIX VACCINE(1 of 2) Never done ADVANCE DIRECTIVE DISCUSSION due on 06/23/2022 DTAP,TDAP,TD(2 - Td or Tdap) due on 02/01/2025 DIABETES SCREEN due on 03/19/2025 INFLUENZA Completed DEPRESSION ASSESSMENT Completed COVID-19 VACCINE Completed PNEUMOCOCCAL: 65+ Completed Data reviewed ASSESSMENT/PLAN: 1. Seborrheic keratoses - ICD9: 702.19, ICD10: L82.1 (primary diagnosis) Cont to monitor 2. Open wound of skin - ICD9: 879.8, ICD10: T14.8XXA Improved. Advised to not pick skin. Can use atb ointment prn 3. Mixed hyperlipidemia - ICD9: 272.2, ICD10: E78.2 Labs ordered for next visit. - LIPID PANEL, NONFASTING - COMP METABOLIC PANEL 4. Essential hypertension - ICD9: 401.9, ICD10: I10 Labs ordered for next visit. - HGB A1C - COMP METABOLIC PANEL 5. Acquired hypothyroidism - ICD9: 244.9, ICD10: E03.9 Labs ordered for next visit. - TSH BLD 6. Elevated fasting blood sugar - ICD9: 790.21, ICD10: R73.01 Labs ordered for next visit. - HGB A1C - COMP METABOLIC PANEL Phoebe Muro PA-C [facility]23 Miscellaneous Notes* Telephone Encounter - Christiane Corado Ma - 07/05/2022 9:27 AM EST was notified and will try doing full meal first than medication Christiane Corado Ma * Telephone Encounter - Phoebe Muro PA-C - 07/04/2022 1:51 PM EST Given that the cultures came back positive for bacteria, we need to treat him. If he can tolerate the medication for at least a week, that would be preferable. Make sure he is taking it after a meal (full stomach). Phoebe Muro PA-C * Telephone Encounter - Merly Palm RN - 07/04/2022 1:37 PM EST Patient calling to let provider know that he has been nauseated without vomiting and feeling more lightheaded since starting antibiotic on 07/01. He states he was having episodes of dizziness prior to antibiotic and saw Cardiology on 07/01 and was placed on two week heart monitor. He is asking if he should discontinue antibiotic? Merly Palm RN [facility] History of Present illness Narrative* Nikko Jose MD - 07/01/2022 12:08 PM EST Images from the original note were not included. Nikko Jose MD Interventional Cardiology [address] [id number] [phone] Chief Complaint Patient presents with: Follow Up HISTORY OF PRESENT ILLNESS: Mr. Arango is a 81 year old male seen for SVT assessment and management Tolerate medication well . No angina No signs symptom of congestive heart failure Doing well from the cardiac point of view Few episodes of dizziness when he stands up from a sitting position Cardiac Risk Factors age (male over 45, female over 55), hyperlipidemia, hypertension PAST MEDICAL HISTORY Diagnosis Date 1st degree AV block 09/08/2015 AC (acromioclavicular) joint arthritis 08/09/2009 Acquired hypothyroidism 04/03/2015 Actinic skin damage 03/08/2012 Acute, but ill-defined, cerebrovascular disease 07/13/2008 Advance directive discussed with patient 03/21/2022 Discussed 02/2022 Anemia 07/24/2015 Arthritis of knee 10/30/2011 At risk for falls 05/28/2019 Atypical nevus of thoracic region 02/03/2014 Balance problem 04/24/2014 Due to CVA in 2008 and right leg weakness Bilateral carotid artery stenosis 12/27/2021 US 12/2021: R 40-60% L 20-40% Bilateral leg edema 08/01/2014 Bladder cancer (HCC) 09/07/2014 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 (HCC) 07/13/2008 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 Class 2 obesity due to excess calories without serious comorbidity with body mass index (BMI) of 39.0 to 39.9 in adult 09/04/2018 Diastasis recti 08/01/2014 Diverticulosis of colon (without mention of hemorrhage) Dupuytren's contracture of both hands 09/21/2012 Elevated fasting blood sugar 04/16/2010 Essential hypertension Essential hypertension Familial peripheral neuropathy 06/02/2015 Gait difficulty 04/29/2016 Gastroesophageal reflux disease without esophagitis 04/03/2015 Greater trochanteric bursitis 03/20/2016 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09/04/2012 History of CVA (cerebrovascular accident) 02/2008 residual weakness in right leg History of giant cell arteritis 03/29/2008 Hx of intermediate frame tender use of blood thinners Irritated//Inflamed Seborrheic Keratosis 03/08/2012 Living will on file 03/21/2022 DPA: Sudarshan () Low back pain 01/13/2014 Lower urinary tract symptoms (LUTS) 08/02/2014 Lumbar stenosis with neurogenic claudication 01/13/[address] Starr Mild pulmonary hypertension (HCC) 09/22/[address] Hamilton, not able to tolerate CPAP for JESSY. Mixed hyperlipidemia 05/24/2008 Multiple renal cysts 08/01/2014 Complex, left Neuropathy 11/15/2016 Related to low back disease OAB (overactive bladder) 07/30/2019 JESSY (obstructive sleep apnea) 12/20/2014 Was on CPAP and could not tolerate. Pain in both hands 12/19/2015 Postlaminectomy syndrome 05/08/2010 Premature supraventricular beats 09/08/2015 Right leg weakness 04/25/2014 Sebaceous cyst 06/08/2009 Stasis dermatitis of both legs 06/02/2015 SVT (supraventricular tachycardia) ([facility]) 07/17/2020 Thoracic or lumbosacral neuritis or radiculitis, unspecified 05/05/2009 Thumb pain, left 11/26/2017 Tinnitus 07/26/2017 Unspecified arthropathy, lower leg 10/12/2008 Venous insufficiency (chronic) (peripheral) 06/02/2015 Vertigo following cerebrovascular accident 07/23/2010 Viral warts, unspecified 04/09/2013 Xerosis cutis 09/04/2012 PAST SURGICAL HISTORY Procedure Laterality Date 2D ECHO (EXEP) 08/2015 EF=64%, 1+ TR and mild Pulm HTN COLONOSCOPY FLX DX W/COLLJ SPEC WHEN PFRMD 02/06/2011 Colonoscopy, repeat 10 yrs CYSTO W/REMOVAL OF LESIONS SMALL 08/31/14 ESOPHAGOGASTRODUODENOSCOPY TRANSORAL DIAGNOSTIC 12/14/2018 EGD FASCT PALM W/WO Z-PLASTY TISSUE REARGMT/SKN GRFT Left 09/08/2018 Left 3rd finger fascietomy with skin graft, left 4th finger facietomy with local soft tissue rearrangements and trigger finger release L3-4 and L4-5 laminoforaminotomy 2009 LIGATION/BIOPSY TEMPORAL ARTERY 03-30-08 RIGHT, negitive. LUMBAR SPINE FUSION COMBINED 05/05/2015 MAL LESION FACE,EAR,EYEL 1.1-2CM 04/20/08 Exc. right lateral islam skin lesion and right forehead OPEN REPAIR OF ROTATOR CUFF ACUTE 2000 Rotator cuff repair left PAST SURGICAL HISTORY OF ingrown toe nail removed PAST SURGICAL HISTORY OF 1965 cyst removed from bottom of spine SHOULDER ARTHROSCOPY/SURGERY 08/02/2010 Open Rt subacromial decompression STRESS TEST 04/10/2015 WNL STRESS TEST NUCLEAR 07/09/2018 negative FAMILY HISTORY Problem Relation Age of Onset Hypertension Mother Stroke Mother other (headaches) Mother Ischemic Heart Disease Father Heart Brother Social History Tobacco Use Smoking status: Never Smokeless tobacco: Never Vaping Use Vaping Use: Never used Substance Use Topics Alcohol use: No Drug use: No ALLERGIES Allergen Reactions Ditropan [Oxybutyni* Other: See Comments Nausea, brain fog, increased weakness, decreased appetite, and increased restless leg symptoms. Prednisone Other: See Comments Had GI problems, headaches. Patient states he was on high dose for almost 90 days Medications: Current Outpatient Medications Medication Sig Dispense Refill doxycycline (VIBRA-TABS) 100 mg tablet Take 1 tablet by mouth twice daily for 10 days. 20 tablet 0 levothyroxine (LEVOXYL) 50 mcg tablet Take 1/2 tab on Friday only along with a 150 mcg tab.Take on empty stomach. For Thyroid 12 tablet 1 levothyroxine (SYNTHROID) 150 mcg tablet Take 1 tablet by mouth once daily. Fri through Friday withextra 25 mcg tab on Sundays only 90 tablet 1 traZODone (DESYREL) 50 mg tablet Take 1 tablet by mouth daily at bedtime. 90 tablet 1 finasteride (PROSCAR) 5 mg tablet Take 1 tablet by mouth once daily. 90 tablet 1 clopidogrel (PLAVIX) 75 mg tablet Take 1 tablet by mouth once daily. 30 tablet 5 mupirocin (BACTROBAN) 2 % ointment Apply to affected area three times daily. 30 g 1 cyanocobalamin (VITAMIN B-12) 1,000 mcg tab Take 1 tablet by mouth once daily. 90 tablet 3 dilTIAZem (CARDIZEM) 30 mg tablet Take 1 tablet by mouth twice daily. 180 tablet 1 pravastatin (PRAVACHOL) 20 mg tablet Take 1 tablet by mouth once daily. 90 tablet 1 lisinopril 2.5 mg tablet Take 1 tablet by mouth once daily. 90 tablet 1 gabapentin (NEURONTIN) 600 mg tablet Take 2 tablets by mouth three times daily for 180 days. 540 tablet 1 furosemide (LASIX) 20 mg tablet Take 1 tablet by mouth once daily. 90 tablet 1 DULoxetine (CYMBALTA) 30 mg capsule Take 1 capsule by mouth once daily. 90 capsule 1 potassium chloride ER (KLOR-CON M20) 20 mEq tablet Take 1 tablet by mouth once daily. 90 tablet 3 COMPOUNDED PRESCRIPTION rollator walker #: one Dx: I63.50, Z86.73, R26.89, G60.9, M62.81 and M48.06 1 Device 0 multivitamins w-minerals/lut(CENTRUM SILVER TAB) Take one(1) tablet daily. 0 tamsulosin (FLOMAX) 0.4 mg Take 1 capsule by mouth once daily. 30 minutes after the same meal each day. 30 capsule 11 Current Facility-Administered Medications Medication Dose Route Frequency Provider Last Rate Last Admin perflutren lipid microspheres 1.3 mL in NaCl (PF) 0.9% 10 mL injection (DEFINITY) INTRAVENOUS DIRECTED PRN Phoebe Muro PA-C sodium chloride 0.9 % (flush) 10 mL (BD POSIFLUSH) 10 mL INTRAVENOUS DIRECTED PRN Phoebe Muro PA-C Review of Systems Constitutional: Negative for chills, diaphoresis, fever, malaise/fatigue and weight loss. HENT: Negative for congestion, ear discharge, ear pain, hearing loss, nosebleeds, sinus pain, sore throat and tinnitus. Eyes: Negative for blurred vision, double vision, photophobia, pain, discharge and redness. Respiratory: Negative for cough, hemoptysis, sputum production, shortness of breath, wheezing and stridor. Cardiovascular: Negative for chest pain, palpitations, orthopnea, claudication, leg swelling and PND. Gastrointestinal: Negative for abdominal pain, blood in stool, constipation, diarrhea, heartburn, melena, nausea and vomiting. Genitourinary: Negative for dysuria, flank pain, frequency, hematuria and urgency. Musculoskeletal: Negative for back pain, falls, joint pain, myalgias and neck pain. Skin: Negative for itching and rash. Neurological: Negative for dizziness, tingling, tremors, sensory change, speech change, focal weakness, seizures, loss of consciousness, weakness and headaches. Endo/Heme/Allergies: Negative for environmental allergies and polydipsia. Does not bruise/bleed easily. Psychiatric/Behavioral: Negative for depression, hallucinations, memory loss, substance abuse and suicidal ideas. The patient is not nervous/anxious and does not have insomnia. Physical Examination: Vitals:BP 136/64 Pulse 68 Wt 286 lb (129.7kg) SpO2 94% BP w/Orthostatic Vitals Date and Time Orthostatic BP Orthostatic Pulse BP Pulse BP Position BP Site BP Cuff Size 07/01/22 1115 -- -- 136/64 68 -- -- -- Last 2 Encounter Wt Readings: Date: Wt: 07/01/2022 129.7 kg (286 lb) 06/26/2022 130.8 kg (288 lb 6.4 oz) Physical Exam Constitutional: General: He is not in acute distress. Appearance: He is not diaphoretic. HENT: Head: Normocephalic and atraumatic. Right Ear: External ear normal. Left Ear: External ear normal. Nose: Nose normal. Mouth/Throat: Pharynx: Oropharynx is clear. Eyes: General: Right eye: No discharge. Left eye: No discharge. Conjunctiva/sclera: Conjunctivae normal. Pupils: Pupils are equal, round, and reactive to light. Cardiovascular: Rate and Rhythm: Normal rate and regular rhythm. Heart sounds: Normal heart sounds, S1 normal and S2 normal. No murmur heard. No friction rub. No gallop. No S3 or S4 sounds. Pulmonary: Effort: Pulmonary effort is normal. No respiratory distress. Breath sounds: Normal breath sounds. No wheezing or rales. Chest: Chest wall: No tenderness. Musculoskeletal: General: Normal range of motion. Cervical back: Normal range of motion and neck supple. Skin: General: Skin is warm and dry. Neurological: Mental Status: He is alert and oriented to person, place, and time. Psychiatric: Mood and Affect: Mood normal. Thought Content: Thought content normal. Judgment: Judgment normal. Pertinent Labs: CBC: Hemoglobin (g/dL) Date Value 03/19/2022 14.2 03/13/2021 13.7 Hematocrit (%) Date Value 03/19/2022 46.0 03/13/2021 43.5 WBC (k/uL) Date Value 03/19/2022 7.76 03/13/2021 9.19 Platelet Count (k/uL) Date Value 03/19/2022 183 03/13/2021 195 BMP: Glucose (mg/dL) Date Value 03/19/2022 161 03/13/2021 169 Potassium (mmol/L) Date Value 03/19/2022 4.5 03/13/2021 4.3 Sodium (mmol/L) Date Value 03/19/2022 139 03/13/2021 144 Chloride (mmol/L) Date Value 03/19/2022 105 03/13/2021 107 CO2 (mmol/L) Date Value 03/19/2022 24 03/13/2021 24 Creatinine (mg/dL) Date Value 03/19/2022 0.94 03/13/2021 0.93 BUN (mg/dL) Date Value 03/19/2022 19 03/13/2021 22 Anion Gap (mmol/L) Date Value 03/19/2022 10 03/13/2021 13 Calcium (mg/dL) Date Value 03/13/2021 8.9 Calcium, Total (mg/dL) Date Value 03/19/2022 8.9 INR: Lipid Profile: Total Cholesterol, Nonfasting Date Value Ref Range Status 03/19/2022 147 <200 mg/dL Final Comment: <200 mg/dL, Desirable 200-239 mg/dL, Borderline high >239 mg/dL, High HDL Cholesterol, Nonfasting Date Value Ref Range Status 03/19/2022 36 (L) >39 mg/dL Final Comment: 40-59 mg/dL, Acceptable >59 mg/dL, High: Negative risk factor for coronary heart disease <40 mg/dL, Low: Positive risk factor for coronary heart disease LDL Cholesterol, Nonfasting Date Value Ref Range Status 03/19/2022 73 <100 mg/dL Final Comment: <100 mg/dL, Optimal 100-129 mg/dL, Near optimal/above optimal 130-159 mg/dL, Borderline high 160-189 mg/dL, High >189 mg/dL, Very high Secondary prevention optimal LDL Cholesterol levels are recommended to be < 70 mg/dL Triglycerides, Nonfasting Date Value Ref Range Status 03/19/2022 192 (H) <150 mg/dL Final Comment: <150 mg/dL, Normal 150-199 mg/dL, Borderline high 200-499 mg/dL, High >499 mg/dL, Very high Hemoglobin A1C: No results found for: HGBA1C TSH: No results found for: TSHREFL Prior Cardiac Testing ekg Assessment and Plan: 82 years old with prior history of supraventricular tachycardia is doing well from the cardiac point of view tolerate medication very well SVT On a Cardizem rate control few episode 2. First-degree heart block with WI interval 400 ms We will order Zio patch to make sure this patient is not bradycardic or have any evidence of sick sinus syndrome Follow up planning: One year Electronically signed by Nikko Jose MD on July 01, 2022, 12:08 PM The above note was partially created using a dictation recognition software. A reasonable attempt has been made to correct any errors. * Jaye Guevara - 07/01/2022 11:56 AM EST EVENT MONITOR DISPOSABLE PATCH INSTRUCTIONS Patient Name: Regan Arango Clinic Number: [id number] Skin prepped and cleansed with alcohol Patch secured to prepped area Monitor Activated Serial #: [id number] Patient Instructed: Prescribed order timeframe Bathing guidelines Usage of event button and diary documentation Return of monitor at the end of prescribed order Call with problems [phone] or [phone] ext. [phone] Patient expresses a good understanding of instructions Jaye Guevara [facility] Miscellaneous Notes* Telephone Encounter - Noemy Washington RN - 07/01/2022 9:20 AM EST Patient's calls and notified of results and provider instructions. Voices understanding, will lemon picker prescription today. Noemy Washington RN * Telephone Encounter - Christiane Corado Ma - 07/01/2022 9:03 AM EST Attempted to call patient no answer and vm was full Christiane Corado Ma * Telephone Encounter - Phoebe Muro PA-C - 07/01/2022 8:07 AM EST Let patient know that culture did end up showing staph. So in addition to the ointment I sent, I will place him on oral antibiotic. Advise patient that he needs to do his best not to pick/scratch his skin as this is likely causing the infection to spread to other areas. Thanks. Phoebe Muro PA-C documented in this encounterPe[facility]01-05-2023 Miscellaneous Notes* Telephone Encounter - Danielle Sanchez LPN - 06/27/2022 2:09 PM EST Patient phones requesting refills as follows: Requested Prescriptions Pending Prescriptions Disp Refills levothyroxine (LEVOXYL) 50 mcg tablet 12 tablet 1 Sig: Take 1/2 tab on Friday only along with a 150 mcg tab.Take on empty stomach. For Thyroid levothyroxine (SYNTHROID) 150 mcg tablet 90 tablet 1 Sig: Take 1 tablet by mouth once daily. Fri through Friday with extra 25 mcg tab on Sundays only traZODone (DESYREL) 50 mg tablet 90 tablet 1 Sig: Take 1 tablet by mouth daily at bedtime. REBECCA-06/26/22 Labs-04/12/22Apr-07/23/22 Please review and advise. Danielle Sanchez LPN documented in this encounterPe[facility]01-05-2023 Miscellaneous Notes* Telephone Encounter - Danielle Sanchez LPN - 06/27/2022 2:08 PM EST Patient phones requesting refills as follows: Requested Prescriptions Pending Prescriptions Disp Refills finasteride (PROSCAR) 5 mg tablet 90 tablet 1 Sig: Take 1 tablet by mouth once daily. clopidogrel (PLAVIX) 75 mg tablet 30 tablet 5 Sig: Take 1 tablet by mouth once daily. REBECCA-06/26/22 Labs-04/12/22Apr-07/23/22 Please review and advise. Danielle Sanchez LPN documented in this encounterPe[facility]01-04-2023 History of Present illness Narrative* Phoebe Muro PA-C - 06/26/2022 9:56 AM EST Chief Complaint Patient presents with: LESION, SKIN HPI Regan Arango is a 81 year old male who presents here today for Above Complaints.. Patient has a lesion on back that started bleeding a couple days ago. Does itch some. Has hx of multiple SKs. States they get itchy and he tends to scratch them open often. Past medical history, appointments, medications, allergies reviewed. Previous Medical History PAST MEDICAL HISTORY Diagnosis Date 1st degree AV block 09/08/2015 AC (acromioclavicular) joint arthritis 08/09/2009 Acquired hypothyroidism 04/03/2015 Actinic skin damage 03/08/2012 Acute, but ill-defined, cerebrovascular disease 07/13/2008 Advance directive discussed with patient 03/21/2022 Discussed 02/2022 Anemia 07/24/2015 Arthritis of knee 10/30/2011 At risk for falls 05/28/2019 Atypical nevus of thoracic region 02/03/2014 Balance problem 04/24/2014 Due to CVA in 2008 and right leg weakness Bilateral carotid artery stenosis 12/27/2021 US 12/2021: R 40-60% L 20-40% Bilateral leg edema 08/01/2014 Bladder cancer (HCC) 09/07/2014 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 (HCC) 07/13/2008 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 Class 2 obesity due to excess calories without serious comorbidity with body mass index (BMI) of 39.0 to 39.9 in adult 09/04/2018 Diastasis recti 08/01/2014 Diverticulosis of colon (without mention of hemorrhage) Dupuytren's contracture of both hands 09/21/2012 Elevated fasting blood sugar 04/16/2010 Essential hypertension Essential hypertension Familial peripheral neuropathy 06/02/2015 Gait difficulty 04/29/2016 Gastroesophageal reflux disease without esophagitis 04/03/2015 Greater trochanteric bursitis 03/20/2016 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09/04/2012 History of CVA (cerebrovascular accident) 02/2008 residual weakness in right leg History of giant cell arteritis 03/29/2008 Hx of intermediate frame tender use of blood thinners Irritated//Inflamed Seborrheic Keratosis 03/08/2012 Living will on file 03/21/2022 DPA: Sudarshan () Low back pain 01/13/2014 Lower urinary tract symptoms (LUTS) 08/02/2014 Lumbar stenosis with neurogenic claudication 01/13/[address] Starr Mild pulmonary hypertension (HCC) 09/22/[address] Hamilton, not able to tolerate CPAP for JESSY. Mixed hyperlipidemia 05/24/2008 Multiple renal cysts 08/01/2014 Complex, left Neuropathy 11/15/2016 Related to low back disease OAB (overactive bladder) 07/30/2019 JESSY (obstructive sleep apnea) 12/20/2014 Was on CPAP and could not tolerate. Pain in both hands 12/19/2015 Postlaminectomy syndrome 05/08/2010 Premature supraventricular beats 09/08/2015 Right leg weakness 04/25/2014 Sebaceous cyst 06/08/2009 Stasis dermatitis of both legs 06/02/2015 SVT (supraventricular tachycardia) ([facility]) 07/17/2020 Thoracic or lumbosacral neuritis or radiculitis, unspecified 05/05/2009 Thumb pain, left 11/26/2017 Tinnitus 07/26/2017 Unspecified arthropathy, lower leg 10/12/2008 Venous insufficiency (chronic) (peripheral) 06/02/2015 Vertigo following cerebrovascular accident 07/23/2010 Viral warts, unspecified 04/09/2013 Xerosis cutis 09/04/2012 Previous Surgical History PAST SURGICAL HISTORY Procedure Laterality Date 2D ECHO (EXEP) 08/2015 EF=64%, 1+ TR and mild Pulm HTN COLONOSCOPY FLX DX W/COLLJ SPEC WHEN PFRMD 02/06/2011 Colonoscopy, repeat 10 yrs CYSTO W/REMOVAL OF LESIONS SMALL 08/31/14 ESOPHAGOGASTRODUODENOSCOPY TRANSORAL DIAGNOSTIC 12/14/2018 EGD FASCT PALM W/WO Z-PLASTY TISSUE REARGMT/SKN GRFT Left 09/08/2018 Left 3rd finger fascietomy with skin graft, left 4th finger facietomy with local soft tissue rearrangements and trigger finger release L3-4 and L4-5 laminoforaminotomy 2009 LIGATION/BIOPSY TEMPORAL ARTERY 03-30-08 RIGHT, negitive. LUMBAR SPINE FUSION COMBINED 05/05/2015 MAL LESION FACE,EAR,EYEL 1.1-2CM 04/20/08 Exc. right lateral islam skin lesion and right forehead OPEN REPAIR OF ROTATOR CUFF ACUTE 2000 Rotator cuff repair left PAST SURGICAL HISTORY OF ingrown toe nail removed PAST SURGICAL HISTORY OF 1965 cyst removed from bottom of spine SHOULDER ARTHROSCOPY/SURGERY 08/02/2010 Open Rt subacromial decompression STRESS TEST 04/10/2015 WNL STRESS TEST NUCLEAR 07/09/2018 negative Family History FAMILY HISTORY Problem Relation Age of Onset Hypertension Mother Stroke Mother other (headaches) Mother Ischemic Heart Disease Father Heart Brother Patient Allergies ALLERGIES Allergen Reactions Ditropan [Oxybutyni* Other: See Comments Nausea, brain fog, increased weakness, decreased appetite, and increased restless leg symptoms. Prednisone Other: See Comments Had GI problems, headaches. Patient states he was on high dose for almost 90 days Current Medications Current Outpatient Medications on File Prior to Visit Medication Sig cyanocobalamin (VITAMIN B-12) 1,000 mcg tab Take 1 tablet by mouth once daily. dilTIAZem (CARDIZEM) 30 mg tablet Take 1 tablet by mouth twice daily. pravastatin (PRAVACHOL) 20 mg tablet Take 1 tablet by mouth once daily. lisinopril 2.5 mg tablet Take 1 tablet by mouth once daily. gabapentin (NEURONTIN) 600 mg tablet Take 2 tablets by mouth three times daily for 180 days. furosemide (LASIX) 20 mg tablet Take 1 tablet by mouth once daily. DULoxetine (CYMBALTA) 30 mg capsule Take 1 capsule by mouth once daily. traZODone (DESYREL) 50 mg tablet Take 1 tablet by mouth daily at bedtime. levothyroxine (LEVOXYL) 50 mcg tablet Take 1/2 tab on Friday only along with a 150 mcg tab.Take on empty stomach. For Thyroid levothyroxine (SYNTHROID) 150 mcg tablet Take 1 tablet by mouth once daily. Fri through Friday withextra 25 mcg tab on Sundays only clopidogrel (PLAVIX) 75 mg tablet Take 1 tablet by mouth once daily. potassium chloride ER (KLOR-CON M20) 20 mEq tablet Take 1 tablet by mouth once daily. finasteride (PROSCAR) 5 mg tablet Take 1 tablet by mouth once daily. COMPOUNDED PRESCRIPTION rollator walker #: one Dx: I63.50, Z86.73, R26.89, G60.9, M62.81 and M48.06 multivitamins w-minerals/lut(CENTRUM SILVER TAB) Take one(1) tablet daily. tamsulosin (FLOMAX) 0.4 mg Take 1 capsule by mouth once daily. 30 minutes after the same meal each day. Current Facility-Administered Medications on File Prior to Visit Medication perflutren lipid microspheres 1.3 mL in NaCl (PF) 0.9% 10 mL injection (DEFINITY) sodium chloride 0.9 % (flush) 10 mL (BD POSIFLUSH) Social History Social History Tobacco Use Smoking status: Never Smokeless tobacco: Never Vaping Use Vaping Use: Never used Substance Use Topics Alcohol use: No Drug use: No Review of Symptoms REVIEW OF SYSTEMS See hpi EXAM: BP 122/78 Pulse 68 Temp 37.2 C (98.9 F) (Left Tympanic) Resp 18 Wt 130.8 kg (288 lb 6.4 oz) BMI 39.49 kg/m General Appearance: Well appearing, alert, in no acute distress, well-hydrated, well nourished.. Skin: yuridia keratosis with excoriation. Multiple open lesion on upper back and scalp.. Health Maintenance List SHINGRIX VACCINE(1 of 2) Never done ADVANCE DIRECTIVE DISCUSSION due on 06/23/2022 DEPRESSION ASSESSMENT due on 06/23/2022 DTAP,TDAP,TD(2 - Td or Tdap) due on 02/01/2025 DIABETES SCREEN due on 03/19/2025 INFLUENZA Completed COVID-19 VACCINE Completed PNEUMOCOCCAL: 65+ Completed Data reviewed ASSESSMENT/PLAN: 1. Open wound of skin - ICD9: 879.8, ICD10: T14.8XXA (primary diagnosis) Check culture Start atb ointment. - WOUND CULTURE AND GRAM STAIN 2. Seborrheic keratoses - ICD9: 702.19, ICD10: L82.1 Follow up in 1 month for recheck and possible lesion removal if still not healed. Advised patient that he may benefit from derm consult. Patient will consider. Phoebe Muro PA-C documented [facility] encounter[facility]10-25-2022 Miscellaneous Notes* Telephone Encounter - Phoebe Muro PA-C - 04/16/2022 11:59 AM EDT The following approved medication requests have been transmitted electronically. Requested Prescriptions Signed Prescriptions Disp Refills cyanocobalamin (VITAMIN B-12) 1,000 mcg tab 90 tablet 3 Sig: Take 1 tablet by mouth once daily. Authorizing Provider: PHOEBE MURO PA-C * Telephone Encounter - Jaye Mays LPN - 04/16/2022 11:05 AM EDT Spoke with pt and information listed below given. Pt verbalizes understanding. Pt requesting the prescription to [facility] and asking for 90 days at a time. Jaye Mays LPN * Telephone Encounter - Phoebe Muro PA-C - 04/16/2022 9:21 AM EDT Let patient know that b12 is at 300. We like to have this over 400. Advise to start b12 supplement 1000mcg daily. Otherwise labs are okay. Insurance may or may not cover the b12 supplement. Which pharmacy do they want me to send to? Phoebe Muro PA-C documented in this encounterPe[facility]10-21-2022 History of Present illness Narrative* Phoebe Muro PA-C - 04/12/2022 10:16 AM EDT Chief Complaint Patient presents with: Recheck: Memory HPI Regan Arango is a 81 year old male who presents here today for Above Complaints.. Patient was seen by PCP a month ago and mentioned concerns for memory. Patient here today for further discussion on this. Patient states that his states he doesn't always recall things she tells him. He feels okay. Past medical history, appointments, medications, allergies reviewed. Previous Medical History PAST MEDICAL HISTORY Diagnosis Date 1st degree AV block 09/08/2015 AC (acromioclavicular) joint arthritis 08/09/2009 Acquired hypothyroidism 04/03/2015 Actinic skin damage 03/08/2012 Acute, but ill-defined, cerebrovascular disease 07/13/2008 Advance directive discussed with patient 03/21/2022 Discussed 02/2022 Anemia 07/24/2015 Arthritis of knee 10/30/2011 At risk for falls 05/28/2019 Atypical nevus of thoracic region 02/03/2014 Balance problem 04/24/2014 Due to CVA in 2008 and right leg weakness Bilateral carotid artery stenosis 12/27/2021 US 12/2021: R 40-60% L 20-40% Bilateral leg edema 08/01/2014 Bladder cancer (HCC) 09/07/2014 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 (HCC) 07/13/2008 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 Class 2 obesity due to excess calories without serious comorbidity with body mass index (BMI) of 39.0 to 39.9 in adult 09/04/2018 Diastasis recti 08/01/2014 Diverticulosis of colon (without mention of hemorrhage) Dupuytren's contracture of both hands 09/21/2012 Elevated fasting blood sugar 04/16/2010 Essential hypertension Essential hypertension Familial peripheral neuropathy 06/02/2015 Gait difficulty 04/29/2016 Gastroesophageal reflux disease without esophagitis 04/03/2015 Greater trochanteric bursitis 03/20/2016 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09/04/2012 History of CVA (cerebrovascular accident) 02/2008 residual weakness in right leg History of giant cell arteritis 03/29/2008 Hx of intermediate frame tender use of blood thinners Irritated//Inflamed Seborrheic Keratosis 03/08/2012 Living will on file 03/21/2022 DPA: Sudarshan () Low back pain 01/13/2014 Lower urinary tract symptoms (LUTS) 08/02/2014 Lumbar stenosis with neurogenic claudication 01/13/[address] Starr Mild pulmonary hypertension (HCC) 09/22/[address] Hamilton, not able to tolerate CPAP for JESSY. Mixed hyperlipidemia 05/24/2008 Multiple renal cysts 08/01/2014 Complex, left Neuropathy 11/15/2016 Related to low back disease OAB (overactive bladder) 07/30/2019 JESSY (obstructive sleep apnea) 12/20/2014 Was on CPAP and could not tolerate. Pain in both hands 12/19/2015 Postlaminectomy syndrome 05/08/2010 Premature supraventricular beats 09/08/2015 Right leg weakness 04/25/2014 Sebaceous cyst 06/08/2009 Stasis dermatitis of both legs 06/02/2015 SVT (supraventricular tachycardia) ([facility]) 07/17/2020 Thoracic or lumbosacral neuritis or radiculitis, unspecified 05/05/2009 Thumb pain, left 11/26/2017 Tinnitus 07/26/2017 Unspecified arthropathy, lower leg 10/12/2008 Venous insufficiency (chronic) (peripheral) 06/02/2015 Vertigo following cerebrovascular accident 07/23/2010 Viral warts, unspecified 04/09/2013 Xerosis cutis 09/04/2012 Previous Surgical History PAST SURGICAL HISTORY Procedure Laterality Date 2D ECHO (EXEP) 08/2015 EF=64%, 1+ TR and mild Pulm HTN COLONOSCOPY FLX DX W/COLLJ SPEC WHEN PFRMD 02/06/2011 Colonoscopy, repeat 10 yrs CYSTO W/REMOVAL OF LESIONS SMALL 08/31/14 ESOPHAGOGASTRODUODENOSCOPY TRANSORAL DIAGNOSTIC 12/14/2018 EGD FASCT PALM W/WO Z-PLASTY TISSUE REARGMT/SKN GRFT Left 09/08/2018 Left 3rd finger fascietomy with skin graft, left 4th finger facietomy with local soft tissue rearrangements and trigger finger release L3-4 and L4-5 laminoforaminotomy 2009 LIGATION/BIOPSY TEMPORAL ARTERY 03-30-08 RIGHT, negitive. LUMBAR SPINE FUSION COMBINED 05/05/2015 MAL LESION FACE,EAR,EYEL 1.1-2CM 04/20/08 Exc. right lateral islam skin lesion and right forehead OPEN REPAIR OF ROTATOR CUFF ACUTE 2000 Rotator cuff repair left PAST SURGICAL HISTORY OF ingrown toe nail removed PAST SURGICAL HISTORY OF 1965 cyst removed from bottom of spine SHOULDER ARTHROSCOPY/SURGERY 08/02/2010 Open Rt subacromial decompression STRESS TEST 04/10/2015 WNL STRESS TEST NUCLEAR 07/09/2018 negative Family History FAMILY HISTORY Problem Relation Age of Onset Hypertension Mother Stroke Mother other (headaches) Mother Ischemic Heart Disease Father Heart Brother Patient Allergies ALLERGIES Allergen Reactions Ditropan [Oxybutyni* Other: See Comments Nausea, brain fog, increased weakness, decreased appetite, and increased restless leg symptoms. Prednisone Other: See Comments Had GI problems, headaches. Patient states he was on high dose for almost 90 days Current Medications Current Outpatient Medications on File Prior to Visit Medication Sig dilTIAZem (CARDIZEM) 30 mg tablet Take 1 tablet by mouth twice daily. pravastatin (PRAVACHOL) 20 mg tablet Take 1 tablet by mouth once daily. lisinopril 2.5 mg tablet Take 1 tablet by mouth once daily. gabapentin (NEURONTIN) 600 mg tablet Take 2 tablets by mouth three times daily for 180 days. furosemide (LASIX) 20 mg tablet Take 1 tablet by mouth once daily. DULoxetine (CYMBALTA) 30 mg capsule Take 1 capsule by mouth once daily. traZODone (DESYREL) 50 mg tablet Take 1 tablet by mouth daily at bedtime. levothyroxine (LEVOXYL) 50 mcg tablet Take 1/2 tab on Friday only along with a 150 mcg tab.Take on empty stomach. For Thyroid levothyroxine (SYNTHROID) 150 mcg tablet Take 1 tablet by mouth once daily. Fri through Friday withextra 25 mcg tab on Sundays only clopidogrel (PLAVIX) 75 mg tablet Take 1 tablet by mouth once daily. tamsulosin (FLOMAX) 0.4 mg Take 1 capsule by mouth once daily. 30 minutes after the same meal each day. potassium chloride ER (KLOR-CON M20) 20 mEq tablet Take 1 tablet by mouth once daily. finasteride (PROSCAR) 5 mg tablet Take 1 tablet by mouth once daily. COMPOUNDED PRESCRIPTION rollator walker #: one Dx: I63.50, Z86.73, R26.89, G60.9, M62.81 and M48.06 multivitamins w-minerals/lut(CENTRUM SILVER TAB) Take one(1) tablet daily. Current Facility-Administered Medications on File Prior to Visit Medication perflutren lipid microspheres 1.3 mL in NaCl (PF) 0.9% 10 mL injection (DEFINITY) sodium chloride 0.9 % (flush) 10 mL (BD POSIFLUSH) Social History Social History Tobacco Use Smoking status: Never Smokeless tobacco: Never Vaping Use Vaping Use: Never used Substance Use Topics Alcohol use: No Drug use: No Review of Symptoms REVIEW OF SYSTEMS See hpi EXAM: BP 128/72 Pulse 72 Resp 18 Wt 129.3 kg (285 lb) BMI 39.03 kg/m General Appearance: Well appearing, alert, in no acute distress, well-hydrated, well nourished. andObese. Health Maintenance List SHINGRIX VACCINE(1 of 2) Never done DEPRESSION ASSESSMENT Never done DTAP,TDAP,TD(2 - Td or Tdap) due on 02/01/2025 DIABETES SCREEN due on 03/19/2025 INFLUENZA Completed ADVANCE DIRECTIVE DISCUSSION Completed COVID-19 VACCINE Completed PNEUMOCOCCAL: 65+ Completed Data reviewed MINI-MENTAL STATE EXAMINATION (MMSE) Make the patient comfortable and establish rapport. Ask questions in the order listed. Total possible score is 30. ORIENTATION 1. What is the (year) (season) (date) (day) (month)? Max score=5 Patient's score=5 2. Where are we? (state) (county) (town or city) (hospital) (floor)? Max score=5 Patient's score=5 REGISTRATION Ask the patient if you may test his/her memory. Then say the names of 3 unrelated objects, clearly and slowly, about one second for each (eg, apple, table, danielle). After you have said all 3, ask him/her to repeat them. This first repetition determines the score(0-3), but keep saying them until he/she can repeat all 3, up to 6 trials. Max score=3 Patient's score=3 ATTENTION AND CALCULATION Ask the patient to begin with 100 and count backwards by 7. Stop after 5 subtractions (93, 86, 79, 72, 65). Score the total number of correct answers. If the patient cannot or will not perform the serial 7s task, ask him/her to spell the word WORLD backwards. The score is the number of letters in the correct order (eg, DLROW=5; DLRW=4; DLORW, DLW=3; OW=2; DRLWO=1). Max score=5 Patient's score=5 RECALL Ask the patient to recall the 3 items repeated above (eg, apple, table, danielle). Max score=3 Patient's score=2 LANGUAGE Naming: Show the patient a wristwatch and ask him/her what it is. Repeat for pencil. Max score=2 Patient's score=2 Repetition: Ask the patient to repeat the phrase No ifs, ands, or buts: after you. Max score=1 Patient's score=1 3-Stage Command: Give the patient a piece of blank paper and ask him/her to take a piece of paper in your right hand, fold it in half, put it on the floor. Score 1 point for each part correctly executed. Max score=3 Patient's score=3 Reading: On a blank piece of paper, print the sentence CLOSE YOUR EYES in letters large enough for the patient to see clearly. Ask him/her to read it and do what it says. Score 1 point only if he/sheactually closes his/her eyes. Max score=1 Patient's score=1 Writing: Give the patient a blank piece of paper and ask him/her to write a sentence. Do not dictate a sentence; it is to be written spontaneously. It must contain a subject and verb and be sensible.Correct grammar and punctuation are not necessary. Max score=1 Patient's score=1 Copying: Ask the patient to copy the figure of intersecting pentagons exactly as it is. All 10 angles must be present and 2 must intersect to form a 4-sided figure to score 1 point. Tremor and rotation are ignored. Max score=1 Patient's score=1 MAXIMUM TOTAL SCORE = 30 TOTAL SCORE = 29/30 Suggested guideline for determining the severity of cognitive impairment: Mild: MMSE>21 Moderate: MMSE 10-20 Severe: MMSE<9 Expected decline in MMSE scores in untreated mild to moderate Alzheimer's patient is 2 to 4 points per year. *Adapted from Folstein et al.1 and Carolina and Zahra2. (c) 1974, 1997 [employer] Used withpermission. References: 1. Folstein MF, Folstein SE, Darryl WI. Mini-Mental State: a practical method for grading the cognitive state of patients for the clinician. J Psychiatr Res. 1975; 12:189-198. 2. JR Carolina, Zahra MF, Mini-Mental State Examination (MMSE). Psychopharm Bull. 1988;24:689-692. 3. Juliano StephensT, Disha FJ, Sobeida RD, Jesse A, Viky F. Neuropsychological function in Alzheimer's disease: pattern of impairment and rates of progression. Arch Neurol. 1988;45:263-268. 4. Michaela JA, Jase B,Nolan S-P, Barak GUZMAN. Predictors of cognitive and functional progression in patients with probable Alzheimer's disease. Neurology. 1992;42:9145-5085. ASSESSMENT/PLAN: 1. Memory difficulties - ICD9: 780.93, ICD10: R41.3 Patient did well with MMSE today. Score of 29/30 Will check additional labs. Discussed medication options, but patient wishes to monitor for now. - VITAMIN B12 BLOOD - SYPHILIS TOTAL W/REFLEX - FOLATE SERUM Phobee Muro PA-C [facility] History of Present illness Narrative* Jose Fam MD - 03/21/2022 10:00 AM EDT Medicare Yearly Visit Medical B eligibilty date 07/24/2005 Date of last exam 03/21/2021 PAST MEDICAL HISTORY PAST MEDICAL HISTORY Diagnosis Date 1St degree AV block 09/08/2015 Acquired hypothyroidism 04/03/2015 Acute, but ill-defined, cerebrovascular disease 07/13/2008 Anemia 07/24/2015 Arthritis of knee 10/30/2011 Balance problem 04/24/2014 Due to CVA in 2008 and right leg weakness Bilateral leg edema 08/01/2014 Bladder cancer (HCC) 09/07/2014 BPH (benign prostatic hyperplasia) 08/02/2014 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 (HCC) 07/13/2008 Complex renal cyst 08/02/2014 Diastasis recti 08/01/2014 Diverticulosis of colon (without mention of hemorrhage) Elevated fasting blood sugar 04/16/2010 Essential hypertension Essential hypertension Familial peripheral neuropathy 06/02/2015 Gastroesophageal reflux disease without esophagitis 04/03/2015 History of CVA (cerebrovascular accident) 02/2008 residual weakness in right leg Hx of long-term use of blood thinners Lower back pain Lower urinary tract symptoms (LUTS) 08/02/2014 Lumbar stenosis with neurogenic claudication 01/13/2014 Mild pulmonary hypertension (HCC) 09/22/[address] Hamilton, not able to tolerate CPAP for JESSY. Mixed hyperlipidemia 05/24/2008 Mononeuritis of unspecified site Neuropathy Multiple renal cysts 08/01/2014 Complex, left Obesity 06/09/2014 JESSY (obstructive sleep apnea) 12/20/2014 Was on CPAP and could not tolerate. Postlaminectomy syndrome 05/08/2010 Premature supraventricular beats 09/08/2015 Stasis dermatitis of both legs 06/02/2015 Venous insufficiency (chronic) (peripheral) 06/02/2015 Vertigo S/P CVA (cerebrovascular accident) 07/23/2010 PAST SURGICAL HISTORY PAST SURGICAL HISTORY 08/2015: 2D ECHO (EXEP) Comment: EF=64%, 1+ TR and mild Pulm HTN 02/06/2011: COLONOSCOP W/ OR W/O [facility] SPEC Comment: Colonoscopy, repeat 10 yrs 08/31/14 : CYSTO W/BLAD LESION FULGUR. SIM. 2009: L3-4 and L4-5 laminoforaminotomy 03-30-08: LIGATION OR BIOPSY, TEMP ARTERY Comment: RIGHT, negitive. 05/05/2015: LUMBAR SPINE FUSION COMBINED 04/20/08: MAL LESION FACE,EAR,EYEL 1.1-2CM Comment: Exc. right lateral islam skin lesion and right forehead No date: PAST SURGICAL HISTORY OF Comment: ingrown toe nail removed 1964: PAST SURGICAL HISTORY OF Comment: cyst removed from bottom of spine 2001: REPAIR ROTATOR CUFF,ACUTE Comment: Rotator cuff repair left 08/02/10: SHOULDER ARTHROSCOPY/SURGERY Comment: Open Rt subactomial decompression 04/10/2015: STRESS TEST Comment: WNL Prednisone Medications reviewed: Yes FAMILY HISTORY FAMILY HISTORY Hypertension Mother Stroke Mother Ischemic Heart Disease Father Heart Brother headaches [Other] [OTHER] Mother SOCIAL HISTORY: SOCIAL HISTORY Social History Marital status: Spouse name: Sudarshan Years of education: 14 Number of children: 3 Occupational History Occupation Employer Comment retired from [employer] Social History Main Topics Smoking status: Never Smoker Smokeless status: Never Used Alcohol use: No Drug use: No Other Topics Concern Service No Blood Transfusions No Caffeine Concern No Occupational Exposure No Hobby Hazards No Sleep Concern No Stress Concern No Weight Concern No Special Diet No Back Care No Exercise No Bike Helmet No Seat Belt Yes Self-Exams No Regan is more or less sedentary occasionally exercising in the form of walking is limited by his neuropathy and his CVA. He watches his diet for sodium, low fat and low cholesterol all of the time. List of current specialists seen: See Dr. Terry (Urology) , Dr. Jose (cardio), End of Live Planning discussed including patients advanced directive wishes: Yes I am willing to follow Regan's advanced directives. Depression screen Depression Screening 05/28/2018 05/24/2019 03/11/2021 03/21/2022 PHQ-2 Score 0 0 0 0 PHQ-9 Score - - - - HESHAM-2 Total Score - - - - Depression screening tool completed and reviewed. Based on score and interview, patient is not at risk for depression. Screening tool discussed with patient, and I recommended no further interventionat this time. Functional Ability/Safety Screen 1. Was the patient's timed Up and Go test unsteady or longer than 30 seconds? no 2. Does the patient need help with the phone, transportation, shopping,preparing meals, housework, laundry, medications or managing money? no 3. Does your home have rugs in the hallway, lack of grab bars in the bathroom, lack of handrails onthe stairs or have poor lighting? no Hearing Evaluation: hard of hearing PHYSICAL EXAM BP 114/64 (BP Site: Left Arm, BP Position: Sitting, BP Cuff Size: Large Adult) Pulse 68 Resp 16 Wt 130.6 kg (288 lb) BMI 39.44 kg/m Alert and oriented X 3: YES Body mass index is 39.44kg/(m^2). See below ASSESSMENT/PLAN: 81 year old male The following prevention plan was discussed during the office visit and provided to the patient: See below Jose Fam MD Chief Complaint Patient presents with: Follow Up: routine HPI Regan Arango is a 81 year old male who presents here today for 6 month follow up. Patient with hx of HTN, HLP, Pulmonary HTN, SVT, JESSY (untreated), neuropathy, hypothyroidism, elevated glucose, OAB, and those as below. Since an episode back in November where he had some global amnesia and seen ALE[facility]. A MRI at the time showed a possible subacute tiny white matter infarct. Notes some continued difficulty with swallowing and sometimes will cough and voice gets hoarse. Also feels like he may be having some short term memory issues. Past medical history, appointments, medications, allergies reviewed. 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 (HCC) 07/13/2008 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 Class 2 obesity due to excess calories without serious comorbidity with body mass index (BMI) of 39.0 to 39.9 in adult 09/04/2018 Diastasis recti 08/01/2014 Diverticulosis of colon (without mention of hemorrhage) Dupuytren's contracture of both hands 09/21/2012 Elevated fasting blood sugar 04/16/2010 Essential hypertension Essential hypertension Familial peripheral neuropathy 06/02/2015 Gait difficulty 04/29/2016 Gastroesophageal reflux disease without esophagitis 04/03/2015 Greater trochanteric bursitis 03/20/2016 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09/04/2012 History of CVA (cerebrovascular accident) 02/2008 residual weakness in right leg History of giant cell arteritis 03/29/2008 Hx of long-term use of blood thinners Irritated//Inflamed Seborrheic Keratosis 03/08/2012 Low back pain 01/13/2014 Lower urinary tract symptoms (LUTS) 08/02/2014 Lumbar stenosis with neurogenic claudication 01/13/[address] Starr Mild pulmonary hypertension (HCC) 09/22/[address] Hamilton, not able to tolerate CPAP for JESSY. Mixed hyperlipidemia 05/24/2008 Multiple renal cysts 08/01/2014 Complex, left Neuropathy 11/15/2016 Related to low back disease OAB (overactive bladder) 07/30/2019 JESSY (obstructive sleep apnea) 12/20/2014 Was on CPAP and could not tolerate. Pain in both hands 12/19/2015 Postlaminectomy syndrome 05/08/2010 Premature supraventricular beats 09/08/2015 Right leg weakness 04/25/2014 Sebaceous cyst 06/08/2009 Stasis dermatitis of both legs 06/02/2015 SVT (supraventricular tachycardia) (HCC) 07/17/2020 Thoracic or lumbosacral neuritis or radiculitis, unspecified 05/05/2009 Thumb pain, left 11/26/2017 Tinnitus 07/26/2017 Unspecified arthropathy, lower leg 10/12/2008 Venous insufficiency (chronic) (peripheral) 06/02/2015 Vertigo following cerebrovascular accident 07/23/2010 Viral warts, unspecified 04/09/2013 Xerosis cutis 09/04/2012 Previous Surgical History PAST SURGICAL HISTORY Procedure Laterality Date 2D ECHO (EXEP) 08/2015 EF=64%, 1+ TR and mild Pulm HTN COLONOSCOPY FLX DX W/COLLJ SPEC WHEN PFRMD 02/06/2011 Colonoscopy, repeat 10 yrs CYSTO W/REMOVAL OF LESIONS SMALL 08/31/14 ESOPHAGOGASTRODUODENOSCOPY TRANSORAL DIAGNOSTIC 12/14/2018 EGD FASCT PALM W/WO Z-PLASTY TISSUE REARGMT/SKN GRFT Left 09/08/2018 Left 3rd finger fascietomy with skin graft, left 4th finger facietomy with local soft tissue rearrangements and trigger finger release L3-4 and L4-5 laminoforaminotomy 2009 LIGATION/BIOPSY TEMPORAL ARTERY 03-30-08 RIGHT, negitive. LUMBAR SPINE FUSION COMBINED 05/05/2015 MAL LESION FACE,EAR,EYEL 1.1-2CM 04/20/08 Exc. right lateral islam skin lesion and right forehead OPEN REPAIR OF ROTATOR CUFF ACUTE 2000 Rotator cuff repair left PAST SURGICAL HISTORY OF ingrown toe nail removed PAST SURGICAL HISTORY OF 1965 cyst removed from bottom of spine SHOULDER ARTHROSCOPY/SURGERY 08/02/2010 Open Rt subacromial decompression STRESS TEST 04/10/2015 WNL STRESS TEST NUCLEAR 07/09/2018 negative Family History FAMILY HISTORY Problem Relation Age of Onset Hypertension Mother Stroke Mother other (headaches) Mother Ischemic Heart Disease Father Heart Brother Patient Allergies ALLERGIES Allergen Reactions Ditropan [Oxybutyni* Other: See Comments Nausea, brain fog, increased weakness, decreased appetite, and increased restless leg symptoms. Prednisone Other: See Comments Had GI problems, headaches. Patient states he was on high dose for almost 90 days Current Medications Current Outpatient Medications on File Prior to Visit Medication Sig traZODone (DESYREL) 50 mg tablet Take 1 tablet by mouth daily at bedtime. levothyroxine (LEVOXYL) 50 mcg tablet Take 1/2 tab on Friday only along with a 150 mcg tab.Take on empty stomach. For Thyroid levothyroxine (SYNTHROID) 150 mcg tablet Take 1 tablet by mouth once daily. Fri through Friday withextra 25 mcg tab on Sundays only clopidogrel (PLAVIX) 75 mg tablet Take 1 tablet by mouth once daily. tamsulosin (FLOMAX) 0.4 mg Take 1 capsule by mouth once daily. 30 minutes after the same meal each day. dilTIAZem (CARDIZEM) 30 mg tablet Take 1 tablet by mouth twice daily. pravastatin (PRAVACHOL) 20 mg tablet Take 1 tablet by mouth once daily. potassium chloride ER (KLOR-CON M20) 20 mEq tablet Take 1 tablet by mouth once daily. lisinopril 2.5 mg tablet Take 1 tablet by mouth once daily. gabapentin (NEURONTIN) 600 mg tablet Take 2 tablets by mouth three times daily for 180 days. furosemide (LASIX) 20 mg tablet Take 1 tablet by mouth once daily. finasteride (PROSCAR) 5 mg tablet Take 1 tablet by mouth once daily. DULoxetine (CYMBALTA) 30 mg capsule Take 1 capsule by mouth once daily. COMPOUNDED PRESCRIPTION rollator walker #: one Dx: I63.50, Z86.73, R26.89, G60.9, M62.81 and M48.06 multivitamins w-minerals/lut(CENTRUM SILVER TAB) Take one(1) tablet daily. Current Facility-Administered Medications on File Prior to Visit Medication perflutren lipid microspheres 1.3 mL in NaCl (PF) 0.9% 10 mL injection (DEFINITY) sodium chloride 0.9 % (flush) 10 mL (BD POSIFLUSH) Social History Social History Tobacco Use Smoking status: Never Smokeless tobacco: Never Vaping Use Vaping Use: Never used Substance Use Topics Alcohol use: No Drug use: No Review of Symptoms REVIEW OF SYSTEMS GENERAL: No weight loss, malaise or fevers NECK: Negative for lumps, goiter, pain and significant neck swelling RESPIRATORY: Negative for cough, hemoptysis, wheezing, COPD, dyspnea or increased shortness of breath CARDIOVASCULAR: Negative for chest pain, increased leg swelling, hypertension, CHF or palpitations GI: No nausea, vomiting, or diarrhea and No heartburn or reflux symptoms PSYCH: Negative for sleep disturbance, mood disorder and recent psychosocial stressors ENDOCRINE: Negative for cold or heat intolerance, polyuria, polydipsia and goiter NEURO: No history of headaches, syncope, paralysis, seizures or tremors EXAM: BP 114/64 (BP Site: Left Arm, BP Position: Sitting, BP Cuff Size: Large Adult) Pulse 68 Resp 16 Wt 130.6 kg (288 lb) BMI 39.44 kg/m Last 4 Encounter Wt Readings: Date: Wt: 03/21/2022 130.6 kg (288 lb) 02/05/2022 132 kg (291 lb) 12/10/2021 134.3 kg (296 lb) 09/18/2021 133.4 kg (294 lb) General Appearance: Well appearing, alert, in no acute distress, well-hydrated, well nourished. andObese. Ears: external, canals and TM's normal. Eyes: Anicteric sclera. Pupils are equally round and reactive to light. Extraocular movements are intact. . Neck: Supple, no adenopathy; thyroid symmetric, normal size, no bruits. Lungs: Lungs clear to auscultation. No wheezing, rhonchi, rales.. Heart: RRR without murmur, gallop, or rubs. No ectopy. Abdomen: Normal abdominal exam, Abdomen soft, non-tender. Bowel sounds normal. No masses, organomegaly. Extremities: No deformities, skin discoloration, Good capillary refill. No pitting edema. Musculoskeletal: l. Muscular strength intact. Peripheral Pulses: Normal. Neurologic: Gait aided with a walker. Sensation to light touch and crainal nerves 2-12 intact.. Health Maintenance List ADVANCE DIRECTIVE DISCUSSION Never done DEPRESSION ASSESSMENT Never done COVID-19 VACCINE(4 - Booster for Moderna series) due on 07/05/2021 INFLUENZA(1) due on 02/21/2022 SHINGRIX VACCINE(1 of 2) due on 03/21/2022 DTAP,TDAP,TD(2 - Td or Tdap) due on 02/01/2025 DIABETES SCREEN due on 03/19/2025 PNEUMOCOCCAL: 65+ Completed Data reviewed Component Latest Ref Rng & Units 09/18/2021 12/10/2021 03/19/2022 WBC 3.70 - 11.00 k/uL 7.68 7.76 RBC 4.20 - 6.00 m/uL 5.01 5.07 Hemoglobin 13.0 - 17.0 g/dL 14.1 14.2 Hematocrit 39.0 - 51.0 % 44.6 46.0 MCV 80.0 - 100.0 fL 89.0 90.7 MCH 26.0 - 34.0 pg 28.1 28.0 MCHC 30.5 - 36.0 g/dL 31.6 30.9 RDW-CV 11.5 - 15.0 % 16.4 (H) 17.1 (H) Platelet Count 150 - 400 k/uL 203 183 MPV 9.0 - 12.7 fL 10.8 10.5 Neut% % 75.7 73.1 Abs Neut (ANC) 1.45 - 7.50 k/uL 5.81 5.67 Lymph% % 15.6 17.7 Abs Lymph 1.00 - 4.00 k/uL 1.20 1.37 [place]% % 5.1 5.5 Abs [place] <0.87 k/uL 0.39 0.43 Eosin% % 2.1 2.3 Abs Eosin <0.46 k/uL 0.16 0.18 Baso% % 1.0 0.9 Abs Baso <0.11 k/uL 0.08 0.07 Immature Gran % % 0.5 0.5 IMMATURE GRANS (ABS) <0.10 k/uL 0.04 0.04 NRBC /100 WBC 0.0 0.0 Absolute nRBC <0.01 k/uL <0.01 <0.01 DTYPE Auto Auto Protein, Total 6.3 - 8.0 g/dL 6.6 6.3 6.2 (L) Albumin 3.9 - 4.9 g/dL 3.9 3.9 4.0 Calcium 8.5 - 10.2 mg/dL 8.8 9.2 8.9 Bilirubin, Total 0.2 - 1.3 mg/dL 0.5 0.4 0.6 Alkaline Phosphatase 38 - 113 U/L 108 117 (H) 112 AST 14 - 40 U/L 16 13 (L) 15 ALT 10 - 54 U/L 12 14 11 Glucose 74 - 99 mg/dL 158 (H) 130 (H) 161 (H) BUN 9 - 24 mg/dL 19 18 19 Creatinine 0.73 - 1.22 mg/dL 1.05 0.98 0.94 Sodium 136 - 144 mmol/L 140 139 139 Potassium 3.7 - 5.1 mmol/L 4.3 4.4 4.5 Chloride 97 - 105 mmol/L 104 104 105 CO2 22 - 30 mmol/L 26 25 24 Anion Gap 9 - 18 mmol/L 10 10 10 eGFR >=60 mL/min/1.73m 71 77 81 Total Cholesterol, Nonfasting <200 mg/dL 124 147 Triglycerides, Nonfasting <150 mg/dL 191 (H) 192 (H) HDL Cholesterol, Nonfasting >39 mg/dL 36 (L) 36 (L) LDL Cholesterol, Nonfasting <100 mg/dL 50 73 Non HDL Cholesterol, Nonfasting <130 mg/dL 88 111 VLDL Cholesterol, Nonfasting <30 mg/dL 38 (H) 38 (H) Total Chol/HDL Ratio, Nonfasting <5.10 mg/dL 3.44 4.08 LDL/HDL Ratio, Nonfasting <2.54 mg/dL 1.39 2.03 Hemoglobin A1C 4.3 - 5.6 % 6.5 (H) 6.4 (H) 6.0 (H) Estimated Average Glucose mg/dL 140 137 126 TSH 0.270 - 4.200 mIU/L 0.791 1.340 0.638 PSA <2.60 ng/mL 0.14 A/P ASSESSMENT/PLAN: 1. Medicare annual wellness visit, subsequent - ICD9: V70.0, ICD10: Z00.00 (primary diagnosis) - Counseled on healthy diet and regular exercise - Patient was counseled [id number] by myself (the billing provider) for the following immunizations and vaccine components, including side effects: COVID-19 and Influenza. Patient consents for immunization and understands risks and benefits. A VIS sheet on each immunization was given to the patient. - Follow up for annual exam in one year 2. Essential hypertension - ICD9: 401.9, ICD10: I10 - good control - Continue current medication(s) - Recommended regular aerobic exercise. - Recommend home blood pressure monitoring, to bring results in on next visit - Goal of BP <130/80 3. Mixed hyperlipidemia - ICD9: 272.2, ICD10: E78.2 - good control - Encouraged following a low fat, low cholesterol diet. - Discussed the benefits of regular aerobic exercise and weight loss. - Encouraged following a low carbohydrate, healthy oil intake diet. - Continue current therapy. 4. Acquired hypothyroidism - ICD9: 244.9, ICD10: E03.9 - Instructed patient on importance of taking on an empty stomach either first thing in the morning or at bedtime. - continue current dose of Synthroid 5. Gastroesophageal reflux disease without esophagitis - ICD9: 530.81, ICD10: K21.9 - controlled with diet. 6. Elevated fasting blood sugar - ICD9: 790.21, ICD10: R73.01 - A1c improved 7. History of CVA (cerebrovascular accident) - ICD9: V12.54, ICD10: Z86.73 - cont current Tx. 8. Mild pulmonary hypertension (HCC) - ICD9: 416.8, ICD10: I27.20 - management per Cardio 9. SVT (supraventricular tachycardia) (HCC) - ICD9: 427.89, ICD10: I47.1 - as per #8 10. Bilateral leg edema - ICD9: 782.3, ICD10: R60.0 Cont - FUROSEMIDE 20 MG TABLET - stable on exam 11. Neuropathy - ICD9: 355.9, ICD10: G62.9 Cont - GABAPENTIN 600 MG TABLET and cymbalta 12. Venous insufficiency (chronic) (peripheral) - ICD9: 459.81, ICD10: I87.2 - cont current Tx. 13. Morbid obesity with body mass index (BMI) of 40.0 to 44.9 in adult (HCC) - ICD9: 278.01, V85.41, ICD10: E66.01, Z68.41 Weight decreasing - Behavioral intervention 14. Gait difficulty - ICD9: 781.2, ICD10: R26.9 - cont use of walker 15. Balance problem - ICD9: 781.99, ICD10: R26.89 - as per #14 16. Bilateral carotid artery stenosis - ICD9: 433.10, 433.30, ICD10: I65.23 - cont current Tx. 17. Pharyngoesophageal dysphagia - ICD9: 787.24, ICD10: R13.14 - will get swalling study at [facility] with speech eval 18. Living will on file - ICD9: V49.89, ICD10: Z87.898 - updated 19. Advance directive discussed with patient - ICD9: V65.49, ICD10: Z71.89 - updated 20. Encounter for immunization - ICD9: V03.89, ICD10: Z23 - INFLUENZA SEASONAL QUADRIVALENT HIGH DOSE AGE 65+: given - [employer] COVID-19 BIVALENT BOOSTER VACCINE, AGE 12+ YR: given Requested Prescriptions Signed Prescriptions Disp Refills dilTIAZem (CARDIZEM) 30 mg tablet 180 tablet 1 Sig: Take 1 tablet by mouth twice daily. pravastatin (PRAVACHOL) 20 mg tablet 90 tablet 1 Sig: Take 1 tablet by mouth once daily. lisinopril 2.5 mg tablet 90 tablet 1 Sig: Take 1 tablet by mouth once daily. gabapentin (NEURONTIN) 600 mg tablet 540 tablet 1 Sig: Take 2 tablets by mouth three times daily for 180 days. furosemide (LASIX) 20 mg tablet 90 tablet 1 Sig: Take 1 tablet by mouth once daily. DULoxetine (CYMBALTA) 30 mg capsule 90 capsule 1 Sig: Take 1 capsule by mouth once daily. F/u 6 months routine check Lipid, A1c and TSH porior F/u in next few weeks with ALEXY for memory exam I spent a total of 40 minutes on the date of the service which included preparing to see the patient, [id number] patient care, completing clinical documentation, performing a medically appropriate examination, counseling and educating the patient/family/caregiver and ordering medications, tests, or procedures. Jose Fam MD documented in this encounterPe[facility]08-15-2022 Miscellaneous Notes* Telephone Encounter - Taz Marie LPN - 02/04/2022 7:18 AM EDT Please see message regarding pt. Taz Marie LPN documented in this encounterPeoples Hospital07-15-2022 Miscellaneous Notes* Telephone Encounter - Nick Spence MA - 01/04/2022 5:46 PM EDT Patient was notified via AMXhart. Nick Spence MA * Telephone Encounter - Jose Fam MD - 01/03/2022 4:11 PM EDT Let patient know halter showed no concerning arrhythmias that would cause a stoke. documented in this encounterPeoples Hospital07-07-2022 Miscellaneous Notes* Telephone Encounter - Michaelle Apple RN - 12/27/2021 4:25 PM EDT Patient returned call and given provider's message below and patient verbalized understanding. Blaine Apple RN * Telephone Encounter - Christiane Corado Ma - 12/27/2021 3:17 PM EDT Left message for Sudarshan to call office back Christiane Corado Ma * Telephone Encounter - Jose Fam MD - 12/27/2021 11:53 AM EDT Please advise the the possible small infarct seen on the MRI of the brain wood explain the memory changes she noted. To try to prevent recurrence we had him stop the aspirin and changes him to plavix 75 mg once ad ay. * Telephone Encounter - Taz Marie LPN - 12/27/2021 10:50 AM EDT Pt's notified of same. is still looking for a reason for pt's memory loss for a couple ofhours. wonders if findings from MRI ) MRI shows a possible subacute adri white matter infarct in the frontal lobe.) could be the cause. She is worried about this happening again. states ok to respond after results of holter are back. Taz Marie LPN * Telephone Encounter - Phoebe Muro PA-C - 12/27/2021 9:49 AM EDT This is a separate finding. The epicardial fat pad is not palpable from the outside. This is fat around the heart. * Telephone Encounter - Taz Marie LPN - 12/27/2021 9:25 AM EDT Pt's advised of results and instructions. She verbalizes understanding. states she read on the report that a fat pad was noted. States she had felt a lump in the past on pt's left side thatshe brought to former pcp Dr Rodrigez's attention. He felt that it was probably a fatty tumor that they should be watched. wanted to mention this to see if this needs to be addressed. Taz Marie LPN * Telephone Encounter - Phoebe Muro PA-C - 12/27/2021 8:50 AM EDT Let patient know that ECHO was normal. Carotid US only shows 40-60% stenosis on R and 20-40 on Left which would not be the cause of his symptoms. We will monitor this ever 1-2 years. Waiting on holter results yet. Discussed with Dr. Fam and unless the holter is abnormal, we will just keep him on plavix and off of aspirin and then continue to monitor. Phoebe Muro PA-C documented in this encounterPeoples Hospital06-28-2022 Miscellaneous Notes* Telephone Encounter - Phoebe Muro PA-C - 12/18/2021 1:40 PM EDT The following approved medication requests have been transmitted electronically. Signed Prescriptions Disp Refills perflutren lipid microspheres 1.3 mL in NaCl (PF) 0.9% 10 mL injection (DEFINITY) Authorizing Provider: PHOEBE MURO sodium chloride 0.9 % (flush) 10 mL (BD POSIFLUSH) Authorizing Provider: PHOEBE MURO clopidogrel (PLAVIX) 75 mg tablet 30 tablet 5 Sig: Take 1 tablet by mouth once daily. JOSE: No Authorizing Provider: PHOEBE MURO PA-C * Telephone Encounter - Taz Marie LPN - 12/18/2021 1:32 PM EDT Pt notified of results and instructions. Pt verbalizes understanding. rx was inadvertently sent to mail away pharm. Please send to [facility]. Pt will lemon picker rx and stop aspirin as instructed. Pt was transferred to schedule appointments. Taz Marie LPN * Telephone Encounter - Phoebe Muro PA-C - 12/18/2021 12:28 PM EDT Let patient know that MRI shows a possible subacute adri white matter infarct in the frontal lobe. I would like to get a carotid US, echo, holter monitor completed. I discussed with dr. Fam, and he also recommends that we switch him to plavix and stop aspirin for now. . Phoebe Muro PA-C documented in this encounterPeoples Hospital06-27-2022 History of Present illness Narrative* RT Bill(R) - 12/17/2021 3:00 PM EDT Radiology Service Progress Note PATIENT NAME: Regan Arango DATE OF SERVICE: December 17, 2021 TIME: 2:59 PM PATIENT IDENTITY VERIFICATION COMPLETED USING TWO (2) IDENTIFIERS: Name and Date of confirmedby patient verbally. FALL SCREENING: Has the patient had 2 falls in the last year or 1 fall with injury or currently using an Ambulatory Assistive Device (Walker, Cane, Wheelchair, Crutches, etc.)? No PATIENT GENDER DATA: Male PATIENT RELEVANT IMPLANT DATA REVIEWED: Yes RADIOLOGY DEPARTMENT: MR; Exam(s) Completed: Head: Routine Brain PERIPHERAL IV DATA: Not applicable SIGNED BY: RT Bill(R) December 17, 2021 2:59 PM documented in this encounterPeoples Hospital06-22-2022 Miscellaneous Notes* Telephone Encounter - Christi Vu Ma - 12/12/2021 8:50 AM EDT Pt notified of results via AMXhart. Christi Vu Ma * Telephone Encounter - Roslyn Mays LPN - 12/11/2021 10:49 AM EDT Phone call placed no answer unable to leave a message voicemail box reported as full. Roslyn Mays LPN * Telephone Encounter - Phoebe Muro PA-C - 12/11/2021 9:59 AM EDT So far labs are okay. Just waiting on the urine results. documented in this encounterPeoples Hospital06-20-2022 History of Present illness Narrative* Phoebe Muro PA-C - 12/10/2021 1:33 PM EDT Chief Complaint Patient presents with: episode of confusion: had one episode on Sun while at a restaurant HPI Regan Arango is a 81 year old male who presents here today for Above Complaints.. Patient with hx of remote CVA. Yesterday he had an episode of confusion and now can't recall that period of time. Patient's is with him today and provides hx as patient does not recall events. Yesterday after [employer] for Father's Day they decided that they wanted to go out to eat. Regan was driving and they were trying a couple different places but they all were packed. Once theydecided to go to [employer], he all of the sudden couldn't remember how to get there. Once there hecalled it [place] and kept asking his how they will pay.. He couldn't remember the waiter/waitress economy class taking his order and then he argued some with his about whathe ordered. While they were waiting for food, he asked his if they went to religion and what the sermon was about. He couldn't recall it was father's day. was getting concerned and called their son. Regan did eat his meal but then tried to tip with just 1 dollar and had to be told multiple times that she put the bill and tip on their card. She wanted to take him to ER but he refused. Patient states he does not recall any of this. They went home and he rested/slept and by evening time he was back to normal. total time was approx 2hours. This is the 1st time he has had this happened before. Past medical history, appointments, medications, allergies reviewed. 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 (HCC) 07/13/2008 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 Class 2 obesity due to excess calories without serious comorbidity with body mass index (BMI) of 39.0 to 39.9 in adult 09/04/2018 Diastasis recti 08/01/2014 Diverticulosis of colon (without mention of hemorrhage) Dupuytren's contracture of both hands 09/21/2012 Elevated fasting blood sugar 04/16/2010 Essential hypertension Essential hypertension Familial peripheral neuropathy 06/02/2015 Gait difficulty 04/29/2016 Gastroesophageal reflux disease without esophagitis 04/03/2015 Greater trochanteric bursitis 03/20/2016 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09/04/2012 History of CVA (cerebrovascular accident) 02/2008 residual weakness in right leg History of giant cell arteritis 03/29/2008 Hx of intermediate frame tender use of blood thinners Irritated//Inflamed Seborrheic Keratosis 03/08/2012 Low back pain 01/13/2014 Lower urinary tract symptoms (LUTS) 08/02/2014 Lumbar stenosis with neurogenic claudication 01/13/[address] Starr Mild pulmonary hypertension (HCC) 09/22/[address] Hamilton, not able to tolerate CPAP for JESSY. Mixed hyperlipidemia 05/24/2008 Multiple renal cysts 08/01/2014 Complex, left Neuropathy 11/15/2016 Related to low back disease OAB (overactive bladder) 07/30/2019 JESSY (obstructive sleep apnea) 12/20/2014 Was on CPAP and could not tolerate. Pain in both hands 12/19/2015 Postlaminectomy syndrome 05/08/2010 Premature supraventricular beats 09/08/2015 Right leg weakness 04/25/2014 Sebaceous cyst 06/08/2009 Stasis dermatitis of both legs 06/02/2015 SVT (supraventricular tachycardia) (HCC) 07/17/2020 Thoracic or lumbosacral neuritis or radiculitis, unspecified 05/05/2009 Thumb pain, left 11/26/2017 Tinnitus 07/26/2017 Unspecified arthropathy, lower leg 10/12/2008 Venous insufficiency (chronic) (peripheral) 06/02/2015 Vertigo following cerebrovascular accident 07/23/2010 Viral warts, unspecified 04/09/2013 Xerosis cutis 09/04/2012 Previous Surgical History PAST SURGICAL HISTORY Procedure Laterality Date 2D ECHO (EXEP) 08/2015 EF=64%, 1+ TR and mild Pulm HTN COLONOSCOPY FLX DX W/COLLJ SPEC WHEN PFRMD 02/06/2011 Colonoscopy, repeat 10 yrs CYSTO W/REMOVAL OF LESIONS SMALL 08/31/14 ESOPHAGOGASTRODUODENOSCOPY TRANSORAL DIAGNOSTIC 12/14/2018 EGD FASCT PALM W/WO Z-PLASTY TISSUE REARGMT/SKN GRFT Left 09/08/2018 Left 3rd finger fascietomy with skin graft, left 4th finger facietomy with local soft tissue rearrangements and trigger finger release L3-4 and L4-5 laminoforaminotomy 2009 LIGATION/BIOPSY TEMPORAL ARTERY 03-30-08 RIGHT, negitive. LUMBAR SPINE FUSION COMBINED 05/05/2015 MAL LESION FACE,EAR,EYEL 1.1-2CM 04/20/08 Exc. right lateral islam skin lesion and right forehead OPEN REPAIR OF ROTATOR CUFF ACUTE 2000 Rotator cuff repair left PAST SURGICAL HISTORY OF ingrown toe nail removed PAST SURGICAL HISTORY OF 1965 cyst removed from bottom of spine SHOULDER ARTHROSCOPY/SURGERY 08/02/2010 Open Rt subacromial decompression STRESS TEST 04/10/2015 WNL STRESS TEST NUCLEAR 07/09/2018 negative Family History FAMILY HISTORY Problem Relation Age of Onset Hypertension Mother Stroke Mother other (headaches) Mother Ischemic Heart Disease Father Heart Brother Patient Allergies ALLERGIES Allergen Reactions Ditropan [Oxybutyni* Other: See Comments Nausea, brain fog, increased weakness, decreased appetite, and increased restless leg symptoms. Prednisone Other: See Comments Had GI problems, headaches. Patient states he was on high dose for almost 90 days Current Medications Current Outpatient Medications on File Prior to Visit Medication Sig tamsulosin (FLOMAX) 0.4 mg Take 1 capsule by mouth once daily. 30 minutes after the same meal each day. dilTIAZem (CARDIZEM) 30 mg tablet Take 1 tablet by mouth twice daily. traZODone (DESYREL) 50 mg tablet Take 1 tablet by mouth daily at bedtime. pravastatin (PRAVACHOL) 20 mg tablet Take 1 tablet by mouth once daily. potassium chloride ER (KLOR-CON M20) 20 mEq tablet Take 1 tablet by mouth once daily. lisinopril 2.5 mg tablet Take 1 tablet by mouth once daily. gabapentin (NEURONTIN) 600 mg tablet Take 2 tablets by mouth three times daily for 180 days. furosemide (LASIX) 20 mg tablet Take 1 tablet by mouth once daily. finasteride (PROSCAR) 5 mg tablet Take 1 tablet by mouth once daily. DULoxetine (CYMBALTA) 30 mg capsule Take 1 capsule by mouth once daily. levothyroxine (LEVOXYL) 50 mcg tablet Take 1/2 tab on Friday only along with a 150 mcg tab.Take on empty stomach. For Thyroid levothyroxine (SYNTHROID) 150 mcg tablet Take 1 tablet by mouth once daily. Fri through Friday withextra 25 mcg tab on Sundays only COMPOUNDED PRESCRIPTION rollator walker #: one Dx: I63.50, Z86.73, R26.89, G60.9, M62.81 and M48.06 aspirin 325 mg tablet Take 162.5 mg by mouth once daily. multivitamins w-minerals/lut(CENTRUM SILVER TAB) Take one(1) tablet daily. No current facility-administered medications on file prior to visit. Social History Social History Tobacco Use Smoking status: Never Smoker Smokeless tobacco: Never Used Vaping Use Vaping Use: Never used Substance Use Topics Alcohol use: No Drug use: No Review of Symptoms REVIEW OF SYSTEMS see hpi EXAM: BP 132/76 (BP Site: Left Arm, BP Position: Sitting, BP Cuff Size: Large Adult) Pulse 60 Temp 36.6 C (97.9 F) Resp 18 Wt 134.3 kg (296 lb) BMI 40.53 kg/m General Appearance: Well appearing, alert, in no acute distress, well-hydrated, well nourished.. using walker Neck: Supple, no adenopathy; thyroid symmetric, normal size, no bruits. Lungs: Lungs clear to auscultation. No wheezing, rhonchi, rales.. Heart: RRR without murmur, gallop, or rubs. No ectopy. Extremities: No deformities, edema, skin discoloration, clubbing or cyanosis. Good capillary refill. . Peripheral Pulses: Normal. Neurologic: Negative findings: speech normal, mental status intact, cranial nerves 2-12 intact, rapid alternating movements normal, finger to nose normal. Health Maintenance List ADVANCE DIRECTIVE DISCUSSION Never done COVID-19 VACCINE(4 - Booster for Moderna series) due on 09/07/2021 SHINGRIX VACCINE(1 of 2) due on 03/21/2022 DIABETES SCREEN due on 09/18/2024 DTAP,TDAP,TD(2 - Td or Tdap) due on 02/01/2025 INFLUENZA Completed PNEUMOCOCCAL: 65+ Completed Data reviewed ASSESSMENT/PLAN: 1. 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 Discussed possible red flags and when to seek medical attention. - COMP METABOLIC PANEL - CBC + DIFF - MRI BRAIN WO IVCON - URINE CULTURE - URINALYSIS, WITH MICROSCOPIC 2. Confusion - ICD9: 298.9, ICD10: R41.0 As above - MRI BRAIN WO IVCON - URINE CULTURE - URINALYSIS, WITH MICROSCOPIC 3. History of CVA (cerebrovascular accident) - ICD9: V12.54, ICD10: Z86.73 - MRI BRAIN WO IVCON 4. Essential hypertension - ICD9: 401.9, ICD10: I10 - good control - Continue current medication(s) - Recommended regular aerobic exercise. - Recommend home blood pressure monitoring, to bring results in on next visit - Goal of BP <130/80 5. Mixed hyperlipidemia - ICD9: 272.2, ICD10: E78.2 6. Acquired hypothyroidism - ICD9: 244.9, ICD10: E03.9 - Instructed patient on importance of taking on an empty stomach either first thing in the morning or at bedtime. - check TSH today - TSH BLD 7. Elevated fasting blood sugar - ICD9: 790.21, ICD10: R73.01 - HGB A1C Phoebe Muro PA-C documented in this encounterPeoples Hospital04-04-2022 Miscellaneous Notes* Telephone Encounter - Christi Vu Ma - 09/24/2021 10:20 AM EDT Pt notified via Pixta. Christi Vu Ma * Telephone Encounter - Amber Douglas LPN - 09/21/2021 11:06 AM EDT Phoned patient and message left for him to return call for update on labs. * Telephone Encounter - Jose Fam MD - 09/20/2021 7:57 PM EDT Let patient know recent labs were ok. documented in this encounterPeoples Hospital03-30-2022 Miscellaneous Notes* Telephone Encounter - Frank Garcia Ma - 09/19/2021 7:35 AM EDT Pharmacy faxed requesting the following refill. Pending Prescriptions Disp Refills TAMSULOSIN 0.4 MG CAPSULE 30 capsule 11 Sig: Take 1 capsule by mouth once daily. 30 minutes after the same meal each day. JOSE: No Patient last appointment: 09/17/2021 Patient Phone numbers: [phone] (home) Request is for script(s) to be escript to pharmacy. Frank Garcia Ma documented in this encounterPeoples Hospital03-29-2022 Instructions* Patient Instructions* Phoebe Muro PA-C - 09/18/2021 10:59 AM EDT Please get labs today. Follow up in 6 months for medicare exam. documented in this encounterPeoples Hospital03-29-2022 History of Present illness Narrative* Phoebe Muro PA-C - 09/18/2021 10:50 AM EDT Chief Complaint Patient presents with: F/U 6 Month HPI Regan Arango is a 80 year old male who presents here today for Chronic Medical Conditions.. Patient with hx of HTN, HLP, Pulmonary HTN, SVT, JESSY (untreated), neuropathy, hypothyroidism, elevated glucose, OAB, and those as below. Patient overall doing okay. No concerns. Past medical history, appointments, medications, allergies reviewed. 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 (HCC) 07/13/2008 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 Class 2 obesity due to excess calories without serious comorbidity with body mass index (BMI) of 39.0 to 39.9 in adult 09/04/2018 Diastasis recti 08/01/2014 Diverticulosis of colon (without mention of hemorrhage) Dupuytren's contracture of both hands 09/21/2012 Elevated fasting blood sugar 04/16/2010 Essential hypertension Essential hypertension Familial peripheral neuropathy 06/02/2015 Gait difficulty 04/29/2016 Gastroesophageal reflux disease without esophagitis 04/03/2015 Greater trochanteric bursitis 03/20/2016 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09/04/2012 History of CVA (cerebrovascular accident) 02/2008 residual weakness in right leg History of giant cell arteritis 03/29/2008 Hx of intermediate frame tender use of blood thinners Irritated//Inflamed Seborrheic Keratosis 03/08/2012 Low back pain 01/13/2014 Lower urinary tract symptoms (LUTS) 08/02/2014 Lumbar stenosis with neurogenic claudication 01/13/[address] Starr Mild pulmonary hypertension (HCC) 09/22/[address] Hamilton, not able to tolerate CPAP for JESSY. Mixed hyperlipidemia 05/24/2008 Multiple renal cysts 08/01/2014 Complex, left Neuropathy 11/15/2016 Related to low back disease OAB (overactive bladder) 07/30/2019 JESSY (obstructive sleep apnea) 12/20/2014 Was on CPAP and could not tolerate. Pain in both hands 12/19/2015 Postlaminectomy syndrome 05/08/2010 Premature supraventricular beats 09/08/2015 Right leg weakness 04/25/2014 Sebaceous cyst 06/08/2009 Stasis dermatitis of both legs 06/02/2015 SVT (supraventricular tachycardia) (HCC) 07/17/2020 Thoracic or lumbosacral neuritis or radiculitis, unspecified 05/05/2009 Thumb pain, left 11/26/2017 Tinnitus 07/26/2017 Unspecified arthropathy, lower leg 10/12/2008 Venous insufficiency (chronic) (peripheral) 06/02/2015 Vertigo following cerebrovascular accident 07/23/2010 Viral warts, unspecified 04/09/2013 Xerosis cutis 09/04/2012 Previous Surgical History PAST SURGICAL HISTORY Procedure Laterality Date 2D ECHO (EXEP) 08/2015 EF=64%, 1+ TR and mild Pulm HTN COLONOSCOP W/ OR W/O BRSH SPEC 02/06/2011 Colonoscopy, repeat 10 yrs CYSTO W/BLAD LESION FULGUR. SIM. 08/31/14 EGD W/O OR W/BRUSH/WASH 12/14/2018 EGD L3-4 and L4-5 laminoforaminotomy 2009 LIGATION OR BIOPSY, TEMP ARTERY 03-30-08 RIGHT, negitive. LUMBAR SPINE FUSION COMBINED 05/05/2015 MAL LESION FACE,EAR,EYEL 1.1-2CM 04/20/08 Exc. right lateral islam skin lesion and right forehead PALMAR FASCIECTOMY Left 09/08/2018 Left 3rd finger fascietomy with skin graft, left 4th finger facietomy with local soft tissue rearrangements and trigger finger release PAST SURGICAL HISTORY OF ingrown toe nail removed PAST SURGICAL HISTORY OF 1965 cyst removed from bottom of spine REPAIR ROTATOR CUFF,ACUTE 2000 Rotator cuff repair left SHOULDER ARTHROSCOPY/SURGERY 08/02/2010 Open Rt subacromial decompression STRESS TEST 04/10/2015 WNL STRESS TEST NUCLEAR 07/09/2018 negative Family History FAMILY HISTORY Problem Relation Age of Onset Hypertension Mother Stroke Mother other (headaches) Mother Ischemic Heart Disease Father Heart Brother Patient Allergies ALLERGIES Allergen Reactions Ditropan [Oxybutyni* Other: See Comments Nausea, brain fog, increased weakness, decreased appetite, and increased restless leg symptoms. Prednisone Other: See Comments Had GI problems, headaches. Patient states he was on high dose for almost 90 days Current Medications Current Outpatient Medications on File Prior to Visit Medication Sig tamsulosin (FLOMAX) 0.4 mg Take 1 capsule by mouth once daily. 30 minutes after the same meal each day. levothyroxine (LEVOXYL) 50 mcg tablet Take 1/2 tab on Friday only along with a 150 mcg tab.Take on empty stomach. For Thyroid levothyroxine (SYNTHROID) 150 mcg tablet Take 1 tablet by mouth once daily. Fri through Friday withextra 25 mcg tab on Sundays only dilTIAZem (CARDIZEM) 30 mg tablet Take 1 tablet by mouth twice daily. traZODone (DESYREL) 50 mg tablet Take 1 tablet by mouth daily at bedtime. pravastatin (PRAVACHOL) 20 mg tablet Take 1 tablet by mouth once daily. potassium chloride ER (KLOR-CON M20) 20 mEq tablet Take 1 tablet by mouth once daily. lisinopril 2.5 mg tablet Take 1 tablet by mouth once daily. gabapentin (NEURONTIN) 600 mg tablet Take 2 tablets by mouth three times daily for 180 days. furosemide (LASIX) 20 mg tablet Take 1 tablet by mouth once daily. finasteride (PROSCAR) 5 mg tablet Take 1 tablet by mouth once daily. DULoxetine (CYMBALTA) 30 mg capsule Take 1 capsule by mouth once daily. COMPOUNDED PRESCRIPTION rollator walker #: one Dx: I63.50, Z86.73, R26.89, G60.9, M62.81 and M48.06 aspirin 325 mg tablet Take 162.5 mg by mouth once daily. multivitamins w-minerals/lut(CENTRUM SILVER TAB) Take one(1) tablet daily. No current facility-administered medications on file prior to visit. Social History Social History Tobacco Use Smoking status: Never Smoker Smokeless tobacco: Never Used Vaping Use Vaping Use: Never used Substance Use Topics Alcohol use: No Drug use: No Review of Symptoms REVIEW OF SYSTEMS GENERAL: No weight loss, malaise or fevers NECK: Negative for lumps, goiter, pain and significant neck swelling RESPIRATORY: Negative for cough, hemoptysis, wheezing, COPD, dyspnea or shortness of breath CARDIOVASCULAR: Negative for chest pain, leg swelling, hypertension, CHF or palpitations NEURO: No history of headaches, syncope, paralysis, seizures or tremors EXAM: BP 120/72 (BP Site: Right Arm, BP Position: Sitting, BP Cuff Size: Large Adult) Pulse 84 Temp 36.3 C (97.3 F) Resp 18 Wt 133.4 kg (294 lb) BMI 40.26 kg/m General Appearance: Well appearing, alert, in no acute distress, well-hydrated, well nourished.. Neck: Supple, no adenopathy; thyroid symmetric, normal size, no bruits. Lungs: Lungs clear to auscultation. No wheezing, rhonchi, rales.. Heart: RRR without murmur, gallop, or rubs. No ectopy. Extremities: No deformities, edema, skin discoloration, clubbing or cyanosis. Good capillary refill. . Peripheral Pulses: Normal. Health Maintenance List ADVANCE DIRECTIVE DISCUSSION Never done SHINGRIX VACCINE(1 of 2) due on 03/21/2022 DIABETES SCREEN due on 03/13/2024 DTAP,TDAP,TD(2 - Td or Tdap) due on 02/01/2025 INFLUENZA Completed PNEUMOVAX AGE 65 AND OVER WITH 5YR LOOKBACK Completed COVID-19 VACCINE Completed MENINGOCOCCAL CONJUGATE Aged Out Data reviewed N/a ASSESSMENT/PLAN: 1. Essential hypertension - ICD9: 401.9, ICD10: I10 (primary diagnosis) - good control - Continue current medication(s) - Recommended regular aerobic exercise. - Recommend home blood pressure monitoring, to bring results in on next visit - Goal of BP <130/80 2. Neuropathy - ICD9: 355.9, ICD10: G62.9 stable - GABAPENTIN 600 MG TABLET 3. Bilateral leg edema - ICD9: 782.3, ICD10: R60.0 stable - FUROSEMIDE 20 MG TABLET 4. Mixed hyperlipidemia - ICD9: 272.2, ICD10: E78.2 - to be determined upon return of lab results - Encouraged following a low carbohydrate, healthy oil intake diet. - Continue current therapy. 5. Mild pulmonary hypertension (HCC) - ICD9: 416.8, ICD10: I27.20 Cont with cardio 6. SVT (supraventricular tachycardia) (HCC) - ICD9: 427.89, ICD10: I47.1 Cont with cardio 7. JESSY (obstructive sleep apnea) - ICD9: 327.23, ICD10: G47.33 Was unable to tolerate cpap 8. Gastroesophageal reflux disease without esophagitis - ICD9: 530.81, ICD10: K21.9 - stable 9. BPH with obstruction/lower urinary tract symptoms - ICD9: 600.01, 599.69, ICD10: N40.1, N13.8 Continue with uro 10. Elevated fasting blood sugar - ICD9: 790.21, ICD10: R73.01 Await labs 11. Acquired hypothyroidism - ICD9: 244.9, ICD10: E03.9 - Instructed patient on importance of taking on an empty stomach either first thing in the morning or at bedtime. Await labs 12. Morbid obesity with body mass index (BMI) of 40.0 to 44.9 in adult (HCC) - ICD9: 278.01, V85.41, ICD10: E66.01, Z68.41 Stable - Behavioral intervention F/u medicare exam in 6 months. Phoebe Muro PA-C [facility] Miscellaneous Notes* Telephone Encounter - Frank Farrelljarrell Latif - 09/17/2021 1:37 PM EDT Pharmacy faxed requesting the following refill. Pending Prescriptions Disp Refills TAMSULOSIN 0.4 MG CAPSULE 30 capsule 11 Sig: Take 1 capsule by mouth once daily. 30 minutes after the same meal each day. JOSE: No Patient last appointment: Visit date not found Patient Phone numbers: [phone] (home) Request is for script(s) to be escript to pharmacy. Frank Garcia Ma [facility] History of Past illness Narrative* Problem Noted Date Diagnosed Date Resolved Date Morbid obesity with body mas s index (BMI) of 40.0 to 44.9 in adult 09/04/2018 04/09/2023 Last Assessment & Plan: Assessment: BMI 39 Morbid obesity with BMI of 40.0-44.9, adult 02/25/2017 09/04/2018 Well adult exam 12/19/2015 09/04/2018 Overview: Last done: 11/14/2016 Anemia 07/24/2015 09/04/2018 Overview: CBC 07/2015 was normal. Bladder cancer 09/07/2014 08/23/2020 Overview: Sees Dr. Terry Last Assessment & Plan: Assessment: in remission, being monitored Peripheral neuropathy, idiopathic 04/25/2014 06/02/2014 Open wound(s) (multiple) of unspecified site(s), without mention of complication 06/04/2012 09/04/2012 Neoplasm of Uncertain Behavior(NUB) of skin 03/08/2012 09/04/2012 R/O BCC (basal cell carcinoma), trunk: chest 2 09/04/2012 Cerebral artery occlusion wi th cerebral infarction 07/13/2008 08/23/2020 documented as of this encounter (statuses as of 04/10/2023) [facility] Narrative* Problem Noted Date Diagnosed Date Resolved Date Morbid obesity with body mas s index (BMI) of 40.0 to 44.9 in adult 09/04/2018 04/09/2023 Last Assessment & Plan: Assessment: BMI 39 Morbid obesity with BMI of 40.0-44.9, adult 02/25/2017 09/04/2018 Well adult exam 12/19/2015 09/04/2018 Overview: Last done: 11/14/2016 Anemia 07/24/2015 09/04/2018 Overview: CBC 07/2015 was normal. Bladder cancer 09/07/2014 08/23/2020 Overview: Sees Dr. Terry Last Assessment & Plan: Assessment: in remission, being monitored Peripheral neuropathy, idiopathic 04/25/2014 06/02/2014 Open wound(s) (multiple) of unspecified site(s), without mention of complication 06/04/2012 09/04/2012 Neoplasm of Uncertain Behavior(NUB) of skin 03/08/2012 09/04/2012 R/O BCC (basal cell carcinoma), trunk: chest 2 09/04/2012 Cerebral artery occlusion wi th cerebral infarction 07/13/2008 08/23/2020 documented as of this encounter (statuses as of 04/11/2023) [facility] Narrative* Problem Noted Date Diagnosed Date Resolved Date Morbid obesity with body mas s index (BMI) of 40.0 to 44.9 in adult 09/04/2018 04/09/2023 Last Assessment & Plan: Assessment: BMI 39 Morbid obesity with BMI of 40.0-44.9, adult 02/25/2017 09/04/2018 Well adult exam 12/19/2015 09/04/2018 Overview: Last done: 11/14/2016 Anemia 07/24/2015 09/04/2018 Overview: CBC 07/2015 was normal. Bladder cancer 09/07/2014 08/23/2020 Overview: Sees Dr. Terry Last Assessment & Plan: Assessment: in remission, being monitored Peripheral neuropathy, idiopathic 04/25/2014 06/02/2014 Open wound(s) (multiple) of unspecified site(s), without mention of complication 06/04/2012 09/04/2012 Neoplasm of Uncertain Behavior(NUB) of skin 03/08/2012 09/04/2012 R/O BCC (basal cell carcinoma), trunk: chest 2 09/04/2012 Cerebral artery occlusion wi th cerebral infarction 07/13/2008 08/23/2020 documented as of this encounter (statuses as of 04/16/2023) [facility] Narrative* Problem Noted Date Diagnosed Date Resolved Date Morbid obesity with body mas s index (BMI) of 40.0 to 44.9 in adult 09/04/2018 04/09/2023 Last Assessment & Plan: Assessment: BMI 39 Morbid obesity with BMI of 40.0-44.9, adult 02/25/2017 09/04/2018 Well adult exam 12/19/2015 09/04/2018 Overview: Last done: 11/14/2016 Anemia 07/24/2015 09/04/2018 Overview: CBC 07/2015 was normal. Bladder cancer 09/07/2014 08/23/2020 Overview: Sees Dr. Terry Last Assessment & Plan: Assessment: in remission, being monitored Peripheral neuropathy, idiopathic 04/25/2014 06/02/2014 Open wound(s) (multiple) of unspecified site(s), without mention of complication 06/04/2012 09/04/2012 Neoplasm of Uncertain Behavior(NUB) of skin 03/08/2012 09/04/2012 R/O BCC (basal cell carcinoma), trunk: chest 2 09/04/2012 Cerebral artery occlusion wi th cerebral infarction 07/13/2008 08/23/2020 documented as of this encounter (statuses as of 04/22/2023) [facility] Narrative* Problem Noted Date Diagnosed Date Resolved Date Morbid obesity with body mas s index (BMI) of 40.0 to 44.9 in adult 09/04/2018 04/09/2023 Last Assessment & Plan: Assessment: BMI 39 Morbid obesity with BMI of 40.0-44.9, adult 02/25/2017 09/04/2018 Well adult exam 12/19/2015 09/04/2018 Overview: Last done: 11/14/2016 Anemia 07/24/2015 09/04/2018 Overview: CBC 07/2015 was normal. Bladder cancer 09/07/2014 08/23/2020 Overview: Sees Dr. Terry Last Assessment & Plan: Assessment: in remission, being monitored Peripheral neuropathy, idiopathic 04/25/2014 06/02/2014 Open wound(s) (multiple) of unspecified site(s), without mention of complication 06/04/2012 09/04/2012 Neoplasm of Uncertain Behavior(NUB) of skin 03/08/2012 09/04/2012 R/O BCC (basal cell carcinoma), trunk: chest 2 09/04/2012 Cerebral artery occlusion wi th cerebral infarction 07/13/2008 08/23/2020 documented as of this encounter (statuses as of 04/27/2023) [facility]arrative* Problem Noted Date Diagnosed Date Resolved Date Morbid obesity with body mas s index (BMI) of 40.0 to 44.9 in adult 09/04/2018 04/09/2023 Last Assessment & Plan: Assessment: BMI 39 Morbid obesity with BMI of 40.0-44.9, adult 02/25/2017 09/04/2018 Well adult exam 12/19/2015 09/04/2018 Overview: Last done: 11/14/2016 Anemia 07/24/2015 09/04/2018 Overview: CBC 07/2015 was normal. Bladder cancer 09/07/2014 08/23/2020 Overview: Sees Dr. Terry Last Assessment & Plan: Assessment: in remission, being monitored Peripheral neuropathy, idiopathic 04/25/2014 06/02/2014 Open wound(s) (multiple) of unspecified site(s), without mention of complication 06/04/2012 09/04/2012 Neoplasm of Uncertain Behavior(NUB) of skin 03/08/2012 09/04/2012 R/O BCC (basal cell carcinoma), trunk: chest 2 09/04/2012 Cerebral artery occlusion wi th cerebral infarction 07/13/2008 08/23/2020 documented as of this encounter (statuses as of 05/02/2023) [facility] Narrative* Problem Noted Date Diagnosed Date Resolved Date Morbid obesity with body mas s index (BMI) of 40.0 to 44.9 in adult 09/04/2018 04/09/2023 Last Assessment & Plan: Assessment: BMI 39 Morbid obesity with BMI of 40.0-44.9, adult 02/25/2017 09/04/2018 Well adult exam 12/19/2015 09/04/2018 Overview: Last done: 11/14/2016 Anemia 07/24/2015 09/04/2018 Overview: CBC 07/2015 was normal. Bladder cancer 09/07/2014 08/23/2020 Overview: Sees Dr. Terry Last Assessment & Plan: Assessment: in remission, being monitored Peripheral neuropathy, idiopathic 04/25/2014 06/02/2014 Open wound(s) (multiple) of unspecified site(s), without mention of complication 06/04/2012 09/04/2012 Neoplasm of Uncertain Behavior(NUB) of skin 03/08/2012 09/04/2012 R/O BCC (basal cell carcinoma), trunk: chest 2 09/04/2012 Cerebral artery occlusion wi th cerebral infarction 07/13/2008 08/23/2020 documented as of this encounter (statuses as of 05/11/2023) [facility] Narrative* Problem Noted Date Diagnosed Date Resolved Date Morbid obesity with body mas s index (BMI) of 40.0 to 44.9 in adult 09/04/2018 04/09/2023 Last Assessment & Plan: Assessment: BMI 39 Morbid obesity with BMI of 40.0-44.9, adult 02/25/2017 09/04/2018 Well adult exam 12/19/2015 09/04/2018 Overview: Last done: 11/14/2016 Anemia 07/24/2015 09/04/2018 Overview: CBC 07/2015 was normal. Bladder cancer 09/07/2014 08/23/2020 Overview: Sees Dr. Terry Last Assessment & Plan: Assessment: in remission, being monitored Peripheral neuropathy, idiopathic 04/25/2014 06/02/2014 Open wound(s) (multiple) of unspecified site(s), without mention of complication 06/04/2012 09/04/2012 Neoplasm of Uncertain Behavior(NUB) of skin 03/08/2012 09/04/2012 R/O BCC (basal cell carcinoma), trunk: chest 2 09/04/2012 Cerebral artery occlusion wi th cerebral infarction 07/13/2008 08/23/2020 documented as of this encounter (statuses as of 05/24/2023) [facility] Narrative* Problem Noted Date Diagnosed Date Resolved Date Morbid obesity with body mas s index (BMI) of 40.0 to 44.9 in adult 09/04/2018 04/09/2023 Last Assessment & Plan: Assessment: BMI 39 Morbid obesity with BMI of 40.0-44.9, adult 02/25/2017 09/04/2018 Well adult exam 12/19/2015 09/04/2018 Overview: Last done: 11/14/2016 Anemia 07/24/2015 09/04/2018 Overview: CBC 07/2015 was normal. Bladder cancer 09/07/2014 08/23/2020 Overview: Sees Dr. Terry Last Assessment & Plan: Assessment: in remission, being monitored Peripheral neuropathy, idiopathic 04/25/2014 06/02/2014 Open wound(s) (multiple) of unspecified site(s), without mention of complication 06/04/2012 09/04/2012 Neoplasm of Uncertain Behavior(NUB) of skin 03/08/2012 09/04/2012 R/O BCC (basal cell carcinoma), trunk: chest 2 09/04/2012 Cerebral artery occlusion wi th cerebral infarction 07/13/2008 08/23/2020 documented as of this encounter (statuses as of 07/31/2023) [facility]* Problem Noted Date Diagnosed Date Resolved Date Morbid obesity with body mas s index (BMI) of 40.0 to 44.9 in adult 09/04/2018 04/09/2023 Last Assessment & Plan: Assessment: BMI 39 Morbid obesity with BMI of 40.0-44.9, adult 02/25/2017 09/04/2018 Well adult exam 12/19/2015 09/04/2018 Overview: Last done: 11/14/2016 Anemia 07/24/2015 09/04/2018 Overview: CBC 07/2015 was normal. Bladder cancer 09/07/2014 08/23/2020 Overview: Sees Dr. Terry Last Assessment & Plan: Assessment: in remission, being monitored Peripheral neuropathy, idiopathic 04/25/2014 06/02/2014 Open wound(s) (multiple) of unspecified site(s), without mention of complication 06/04/2012 09/04/2012 Neoplasm of Uncertain Behavior(NUB) of skin 03/08/2012 09/04/2012 R/O BCC (basal cell carcinoma), trunk: chest 2 09/04/2012 Cerebral artery occlusion wi th cerebral infarction 07/13/2008 08/23/2020 documented as of this encounter (statuses as of 08/04/2023) [facility] Narrative* Problem Noted Date Diagnosed Date Resolved Date Morbid obesity with body mas s index (BMI) of 40.0 to 44.9 in adult 09/04/2018 04/09/2023 Last Assessment & Plan: Assessment: BMI 39 Morbid obesity with BMI of 40.0-44.9, adult 02/25/2017 09/04/2018 Well adult exam 12/19/2015 09/04/2018 Overview: Last done: 11/14/2016 Anemia 07/24/2015 09/04/2018 Overview: CBC 07/2015 was normal. Bladder cancer 09/07/2014 08/23/2020 Overview: Sees Dr. 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 Bladder cancer 09/07/2014 08/23/2020 Overview: Sees Dr. 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 Bladder cancer 09/07/2014 08/23/2020 Overview: Sees Dr. 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 Bladder cancer 09/07/2014 08/23/2020 Overview: Sees Dr. 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 Bladder cancer 09/07/2014 08/23/2020 Overview: Sees Dr. 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 Bladder cancer 09/07/2014 08/23/2020 Overview: Sees Dr. 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 Bladder cancer 09/07/2014 08/23/2020 Overview: Sees Dr. 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 Bladder cancer 09/07/2014 08/23/2020 Overview: Sees Dr. Terry Last Assessment & Plan: Assessment: in remission, being monitored Peripheral neuropathy, idiopathic 04/25/2014 06/02/2014 Open wound(s) (multiple) of unspecified site(s), without mention of complication 06/04/2012 09/04/2012 Neoplasm of Uncertain Behavior(NUB) of skin 02/2109/04/2012 R/O BCC (basal cell carcinoma), trunk: chest 09/04/2012 Cerebral artery occlusion with cerebral infarcti on 07/13/2008 08/23/2020 documented as of this encounter (statuses as of 09/18/2021) [facility]* Problem Noted Date Resolved Date Morbid obesity with BMI of 40.0-44.9, adult 09/0 10/201609/04/2018 Well adult exam 12/19/2015 09/04/2018 Overview: Last done: 11/14/2016 Anemia 07/24/2015 09/04/2018 Overview: CBC 07/2015 was normal. Bladder cancer 09/07/2014 08/23/2020 Overview: Sees Dr. Terry Last Assessment & Plan: Assessment: in remission, being monitored Peripheral neuropathy, idiopathic 04/25/2014 06/02/2014 Open wound(s) (multiple) of unspecified site(s), without mention of complication 06/04/2012 09/04/2012 Neoplasm of Uncertain Behavior(NUB) of skin 02/2109/04/2012 R/O BCC (basal cell carcinoma), trunk: chest 09/04/2012 Cerebral artery occlusion with cerebral infarcti on 07/13/2008 08/23/2020 documented as of this encounter (statuses as of 09/18/2021) [facility]* Problem Noted Date Resolved Date Morbid obesity with BMI of 40.0-44.9, adult 09/0 10/201609/04/2018 Well adult exam 12/19/2015 09/04/2018 Overview: Last done: 11/14/2016 Anemia 07/24/2015 09/04/2018 Overview: CBC 07/2015 was normal. Bladder cancer 09/07/2014 08/23/2020 Overview: Sees Dr. Terry Last Assessment & Plan: Assessment: in remission, being monitored Peripheral neuropathy, idiopathic 04/25/2014 06/02/2014 Open wound(s) (multiple) of unspecified site(s), without mention of complication 06/04/2012 09/04/2012 Neoplasm of Uncertain Behavior(NUB) of skin 02/2109/04/2012 R/O BCC (basal cell carcinoma), trunk: chest 09/04/2012 Cerebral artery occlusion with cerebral infarcti on 07/13/2008 08/23/2020 documented as of this encounter (statuses as of 09/19/2021) [facility]* Problem Noted Date Resolved Date Morbid obesity with BMI of 40.0-44.9, adult 09/0 10/201609/04/2018 Well adult exam 12/19/2015 09/04/2018 Overview: Last done: 11/14/2016 Anemia 07/24/2015 09/04/2018 Overview: CBC 07/2015 was normal. Bladder cancer 09/07/2014 08/23/2020 Overview: Sees Dr. Terry Last Assessment & Plan: Assessment: in remission, being monitored Peripheral neuropathy, idiopathic 04/25/2014 06/02/2014 Open wound(s) (multiple) of unspecified site(s), without mention of complication 06/04/2012 09/04/2012 Neoplasm of Uncertain Behavior(NUB) of skin 02/2109/04/2012 R/O BCC (basal cell carcinoma), trunk: chest 09/04/2012 Cerebral artery occlusion with cerebral infarcti on 07/13/2008 08/23/2020 documented as of this encounter (statuses as of 09/24/2021) [facility]* Problem Noted Date Resolved Date Morbid obesity with BMI of 40.0-44.9, adult 09/0 10/201609/04/2018 Well adult exam 12/19/2015 09/04/2018 Overview: Last done: 11/14/2016 Anemia 07/24/2015 09/04/2018 Overview: CBC 07/2015 was normal. Bladder cancer 09/07/2014 08/23/2020 Overview: Sees Dr. Terry Last Assessment & Plan: Assessment: in remission, being monitored Peripheral neuropathy, idiopathic 04/25/2014 06/02/2014 Open wound(s) (multiple) of unspecified site(s), without mention of complication 06/04/2012 09/04/2012 Neoplasm of Uncertain Behavior(NUB) of skin 02/2109/04/2012 R/O BCC (basal cell carcinoma), trunk: chest 09/04/2012 Cerebral artery occlusion with cerebral infarcti on 07/13/2008 08/23/2020 documented as of this encounter (statuses as of 12/10/2021) [facility]2017 History of Past illness Narrative* Problem Noted Date Resolved Date Morbid obesity with BMI of 40.0-44.9, adult 09/0 10/201609/04/2018 Well adult exam 12/19/2015 09/04/2018 Overview: Last done: 11/14/2016 Anemia 07/24/2015 09/04/2018 Overview: CBC 07/2015 was normal. Bladder cancer 09/07/2014 08/23/2020 Overview: Sees Dr. Terry Last Assessment & Plan: Assessment: in remission, being monitored Peripheral neuropathy, idiopathic 04/25/2014 06/02/2014 Open wound(s) (multiple) of unspecified site(s), without mention of complication 06/04/2012 09/04/2012 Neoplasm of Uncertain Behavior(NUB) of skin 02/2109/04/2012 R/O BCC (basal cell carcinoma), trunk: chest 09/04/2012 Cerebral artery occlusion with cerebral infarcti on 07/13/2008 08/23/2020 documented as of this encounter (statuses as of 12/12/2021) [facility]2017 History of Past illness Narrative* Problem Noted Date Resolved Date Morbid obesity with BMI of 40.0-44.9, adult 09/0 10/201609/04/2018 Well adult exam 12/19/2015 09/04/2018 Overview: Last done: 11/14/2016 Anemia 07/24/2015 09/04/2018 Overview: CBC 07/2015 was normal. Bladder cancer 09/07/2014 08/23/2020 Overview: Sees Dr. Terry Last Assessment & Plan: Assessment: in remission, being monitored Peripheral neuropathy, idiopathic 04/25/2014 06/02/2014 Open wound(s) (multiple) of unspecified site(s), without mention of complication 06/04/2012 09/04/2012 Neoplasm of Uncertain Behavior(NUB) of skin 02/2109/04/2012 R/O BCC (basal cell carcinoma), trunk: chest 09/04/2012 Cerebral artery occlusion with cerebral infarcti on 07/13/2008 08/23/2020 documented as of this encounter (statuses as of 12/18/2021) [facility]2017 History of Past illness Narrative* Problem Noted Date Resolved Date Morbid obesity with BMI of 40.0-44.9, adult 09/0 10/201609/04/2018 Well adult exam 12/19/2015 09/04/2018 Overview: Last done: 11/14/2016 Anemia 07/24/2015 09/04/2018 Overview: CBC 07/2015 was normal. Bladder cancer 09/07/2014 08/23/2020 Overview: Sees Dr. Terry Last Assessment & Plan: Assessment: in remission, being monitored Peripheral neuropathy, idiopathic 04/25/2014 06/02/2014 Open wound(s) (multiple) of unspecified site(s), without mention of complication 06/04/2012 09/04/2012 Neoplasm of Uncertain Behavior(NUB) of skin 02/2109/04/2012 R/O BCC (basal cell carcinoma), trunk: chest 09/04/2012 Cerebral artery occlusion with cerebral infarcti on 07/13/2008 08/23/2020 documented as of this encounter (statuses as of 12/18/2021) [facility] History of Past illness Narrative* Problem Noted Date Resolved Date Morbid obesity with BMI of 40.0-44.9, adult 09/0 10/201609/04/2018 Well adult exam 12/19/2015 09/04/2018 Overview: Last done: 11/14/2016 Anemia 07/24/2015 09/04/2018 Overview: CBC 07/2015 was normal. Bladder cancer 09/07/2014 08/23/2020 Overview: Sees Dr. Terry Last Assessment & Plan: Assessment: in remission, being monitored Peripheral neuropathy, idiopathic 04/25/2014 06/02/2014 Open wound(s) (multiple) of unspecified site(s), without mention of complication 06/04/2012 09/04/2012 Neoplasm of Uncertain Behavior(NUB) of skin 02/2109/04/2012 R/O BCC (basal cell carcinoma), trunk: chest 09/04/2012 Cerebral artery occlusion with cerebral infarcti on 07/13/2008 08/23/2020 documented as of this encounter (statuses as of 12/20/2021) [facility] History of Past illness Narrative* Problem Noted Date Resolved Date Morbid obesity with BMI of 40.0-44.9, adult 09/0 10/201609/04/2018 Well adult exam 12/19/2015 09/04/2018 Overview: Last done: 11/14/2016 Anemia 07/24/2015 09/04/2018 Overview: CBC 07/2015 was normal. Bladder cancer 09/07/2014 08/23/2020 Overview: Sees Dr. Terry Last Assessment & Plan: Assessment: in remission, being monitored Peripheral neuropathy, idiopathic 04/25/2014 06/02/2014 Open wound(s) (multiple) of unspecified site(s), without mention of complication 06/04/2012 09/04/2012 Neoplasm of Uncertain Behavior(NUB) of skin 02/2109/04/2012 R/O BCC (basal cell carcinoma), trunk: chest 09/04/2012 Cerebral artery occlusion with cerebral infarcti on 07/13/2008 08/23/2020 documented as of this encounter (statuses as of 12/27/2021) [facility] History of Past illness Narrative* Problem Noted Date Resolved Date Morbid obesity with BMI of 40.0-44.9, adult 09/0 10/201609/04/2018 Well adult exam 12/19/2015 09/04/2018 Overview: Last done: 11/14/2016 Anemia 07/24/2015 09/04/2018 Overview: CBC 07/2015 was normal. Bladder cancer 09/07/2014 08/23/2020 Overview: Sees Dr. Terry Last Assessment & Plan: Assessment: in remission, being monitored Peripheral neuropathy, idiopathic 04/25/2014 06/02/2014 Open wound(s) (multiple) of unspecified site(s), without mention of complication 06/04/2012 09/04/2012 Neoplasm of Uncertain Behavior(NUB) of skin 02/2109/04/2012 R/O BCC (basal cell carcinoma), trunk: chest 09/04/2012 Cerebral artery occlusion with cerebral infarcti on 07/13/2008 08/23/2020 documented as of this encounter (statuses as of 01/01/2022) [facility] History of Past illness Narrative* Problem Noted Date Resolved Date Morbid obesity with BMI of 40.0-44.9, adult 09/0 10/201609/04/2018 Well adult exam 12/19/2015 09/04/2018 Overview: Last done: 11/14/2016 Anemia 07/24/2015 09/04/2018 Overview: CBC 07/2015 was normal. Bladder cancer 09/07/2014 08/23/2020 Overview: Sees Dr. Terry Last Assessment & Plan: Assessment: in remission, being monitored Peripheral neuropathy, idiopathic 04/25/2014 06/02/2014 Open wound(s) (multiple) of unspecified site(s), without mention of complication 06/04/2012 09/04/2012 Neoplasm of Uncertain Behavior(NUB) of skin 02/2109/04/2012 R/O BCC (basal cell carcinoma), trunk: chest 09/04/2012 Cerebral artery occlusion with cerebral infarcti on 07/13/2008 08/23/2020 documented as of this encounter (statuses as of 01/04/2022) [facility] History of Past illness Narrative* Problem Noted Date Resolved Date Morbid obesity with BMI of 40.0-44.9, adult 09/0 10/201609/04/2018 Well adult exam 12/19/2015 09/04/2018 Overview: Last done: 11/14/2016 Anemia 07/24/2015 09/04/2018 Overview: CBC 07/2015 was normal. Bladder cancer 09/07/2014 08/23/2020 Overview: Sees Dr. Terry Last Assessment & Plan: Assessment: in remission, being monitored Peripheral neuropathy, idiopathic 04/25/2014 06/02/2014 Open wound(s) (multiple) of unspecified site(s), without mention of complication 06/04/2012 09/04/2012 Neoplasm of Uncertain Behavior(NUB) of skin 02/2109/04/2012 R/O BCC (basal cell carcinoma), trunk: chest 09/04/2012 Cerebral artery occlusion with cerebral infarcti on 07/13/2008 08/23/2020 documented as of this encounter (statuses as of 02/04/2022) [facility] History of Past illness Narrative* Problem Noted Date Resolved Date Morbid obesity with BMI of 40.0-44.9, adult 09/0 10/201609/04/2018 Well adult exam 12/19/2015 09/04/2018 Overview: Last done: 11/14/2016 Anemia 07/24/2015 09/04/2018 Overview: CBC 07/2015 was normal. Bladder cancer 09/07/2014 08/23/2020 Overview: Sees Dr. Terry Last Assessment & Plan: Assessment: in remission, being monitored Peripheral neuropathy, idiopathic 04/25/2014 06/02/2014 Open wound(s) (multiple) of unspecified site(s), without mention of complication 06/04/2012 09/04/2012 Neoplasm of Uncertain Behavior(NUB) of skin 02/2109/04/2012 R/O BCC (basal cell carcinoma), trunk: chest 09/04/2012 Cerebral artery occlusion with cerebral infarcti on 07/13/2008 08/23/2020 documented as of this encounter (statuses as of 03/22/2022) [facility] History of Past illness Narrative* Problem Noted Date Resolved Date Morbid obesity with BMI of 40.0-44.9, adult 09/0 10/201609/04/2018 Well adult exam 12/19/2015 09/04/2018 Overview: Last done: 11/14/2016 Anemia 07/24/2015 09/04/2018 Overview: CBC 07/2015 was normal. Bladder cancer 09/07/2014 08/23/2020 Overview: Sees Dr. Terry Last Assessment & Plan: Assessment: in remission, being monitored Peripheral neuropathy, idiopathic 04/25/2014 06/02/2014 Open wound(s) (multiple) of unspecified site(s), without mention of complication 06/04/2012 09/04/2012 Neoplasm of Uncertain Behavior(NUB) of skin 02/2109/04/2012 R/O BCC (basal cell carcinoma), trunk: chest 09/04/2012 Cerebral artery occlusion with cerebral infarcti on 07/13/2008 08/23/2020 documented as of this encounter (statuses as of 04/12/2022) [facility] History of Past illness Narrative* Problem Noted Date Resolved Date Morbid obesity with BMI of 40.0-44.9, adult 09/0 10/201609/04/2018 Well adult exam 12/19/2015 09/04/2018 Overview: Last done: 11/14/2016 Anemia 07/24/2015 09/04/2018 Overview: CBC 07/2015 was normal. Bladder cancer 09/07/2014 08/23/2020 Overview: Sees Dr. Terry Last Assessment & Plan: Assessment: in remission, being monitored Peripheral neuropathy, idiopathic 04/25/2014 06/02/2014 Open wound(s) (multiple) of unspecified site(s), without mention of complication 06/04/2012 09/04/2012 Neoplasm of Uncertain Behavior(NUB) of skin 02/2109/04/2012 R/O BCC (basal cell carcinoma), trunk: chest 09/04/2012 Cerebral artery occlusion with cerebral infarcti on 07/13/2008 08/23/2020 documented as of this encounter (statuses as of 04/16/2022) [facility] History of Past illness Narrative* Problem Noted Date Resolved Date Morbid obesity with BMI of 40.0-44.9, adult 09/0 10/201609/04/2018 Well adult exam 12/19/2015 09/04/2018 Overview: Last done: 11/14/2016 Anemia 07/24/2015 09/04/2018 Overview: CBC 07/2015 was normal. Bladder cancer 09/07/2014 08/23/2020 Overview: Sees Dr. Terry Last Assessment & Plan: Assessment: in remission, being monitored Peripheral neuropathy, idiopathic 04/25/2014 06/02/2014 Open wound(s) (multiple) of unspecified site(s), without mention of complication 06/04/2012 09/04/2012 Neoplasm of Uncertain Behavior(NUB) of skin 02/2109/04/2012 R/O BCC (basal cell carcinoma), trunk: chest 09/04/2012 Cerebral artery occlusion with cerebral infarcti on 07/13/2008 08/23/2020 documented as of this encounter (statuses as of 06/28/2022) [facility] History of Past illness Narrative* Problem Noted Date Resolved Date Morbid obesity with BMI of 40.0-44.9, adult 09/0 10/201609/04/2018 Well adult exam 12/19/2015 09/04/2018 Overview: Last done: 11/14/2016 Anemia 07/24/2015 09/04/2018 Overview: CBC 07/2015 was normal. Bladder cancer 09/07/2014 08/23/2020 Overview: Sees Dr. Terry Last Assessment & Plan: Assessment: in remission, being monitored Peripheral neuropathy, idiopathic 04/25/2014 06/02/2014 Open wound(s) (multiple) of unspecified site(s), without mention of complication 06/04/2012 09/04/2012 Neoplasm of Uncertain Behavior(NUB) of skin 02/2109/04/2012 R/O BCC (basal cell carcinoma), trunk: chest 09/04/2012 Cerebral artery occlusion with cerebral infarcti on 07/13/2008 08/23/2020 documented as of this encounter (statuses as of 06/28/2022) [facility] History of Past illness Narrative* Problem Noted Date Resolved Date Morbid obesity with BMI of 40.0-44.9, adult 09/0 10/201609/04/2018 Well adult exam 12/19/2015 09/04/2018 Overview: Last done: 11/14/2016 Anemia 07/24/2015 09/04/2018 Overview: CBC 07/2015 was normal. Bladder cancer 09/07/2014 08/23/2020 Overview: Sees Dr. Terry Last Assessment & Plan: Assessment: in remission, being monitored Peripheral neuropathy, idiopathic 04/25/2014 06/02/2014 Open wound(s) (multiple) of unspecified site(s), without mention of complication 06/04/2012 09/04/2012 Neoplasm of Uncertain Behavior(NUB) of skin 02/2109/04/2012 R/O BCC (basal cell carcinoma), trunk: chest 09/04/2012 Cerebral artery occlusion with cerebral infarcti on 07/13/2008 08/23/2020 documented as of this encounter (statuses as of 06/28/2022) [place] [id number] History of Past illness Narrative* Problem Noted Date Resolved Date Morbid obesity with BMI of 40.0-44.9, adult 09/0 10/201609/04/2018 Well adult exam 12/19/2015 09/04/2018 Overview: Last done: 11/14/2016 Anemia 07/24/2015 09/04/2018 Overview: CBC 07/2015 was normal. Bladder cancer 09/07/2014 08/23/2020 Overview: Sees Dr. Terry Last Assessment & Plan: Assessment: in remission, being monitored Peripheral neuropathy, idiopathic 04/25/2014 06/02/2014 Open wound(s) (multiple) of unspecified site(s), without mention of complication 06/04/2012 09/04/2012 Neoplasm of Uncertain Behavior(NUB) of skin 02/2109/04/2012 R/O BCC (basal cell carcinoma), trunk: chest 09/04/2012 Cerebral artery occlusion with cerebral infarcti on 07/13/2008 08/23/2020 documented as of this encounter (statuses as of 07/01/2022) [facility] History of Past illness Narrative* Problem Noted Date Resolved Date Morbid obesity with BMI of 40.0-44.9, adult 09/0 10/201609/04/2018 Well adult exam 12/19/2015 09/04/2018 Overview: Last done: 11/14/2016 Anemia 07/24/2015 09/04/2018 Overview: CBC 07/2015 was normal. Bladder cancer 09/07/2014 08/23/2020 Overview: Sees Dr. Terry Last Assessment & Plan: Assessment: in remission, being monitored Peripheral neuropathy, idiopathic 04/25/2014 06/02/2014 Open wound(s) (multiple) of unspecified site(s), without mention of complication 06/04/2012 09/04/2012 Neoplasm of Uncertain Behavior(NUB) of skin 02/2109/04/2012 R/O BCC (basal cell carcinoma), trunk: chest 09/04/2012 Cerebral artery occlusion with cerebral infarcti on 07/13/2008 08/23/2020 documented as of this encounter (statuses as of 07/01/2022) [facility] History of Past illness Narrative* Problem Noted Date Resolved Date Morbid obesity with BMI of 40.0-44.9, adult 09/0 10/201609/04/2018 Well adult exam 12/19/2015 09/04/2018 Overview: Last done: 11/14/2016 Anemia 07/24/2015 09/04/2018 Overview: CBC 07/2015 was normal. Bladder cancer 09/07/2014 08/23/2020 Overview: Sees Dr. Terry Last Assessment & Plan: Assessment: in remission, being monitored Peripheral neuropathy, idiopathic 04/25/2014 06/02/2014 Open wound(s) (multiple) of unspecified site(s), without mention of complication 06/04/2012 09/04/2012 Neoplasm of Uncertain Behavior(NUB) of skin 02/2109/04/2012 R/O BCC (basal cell carcinoma), trunk: chest 09/04/2012 Cerebral artery occlusion with cerebral infarcti on 07/13/2008 08/23/2020 documented as of this encounter (statuses as of 07/05/2022) [facility] History of Past illness Narrative* Problem Noted Date Resolved Date Morbid obesity with BMI of 40.0-44.9, adult 09/0 10/201609/04/2018 Well adult exam 12/19/2015 09/04/2018 Overview: Last done: 11/14/2016 Anemia 07/24/2015 09/04/2018 Overview: CBC 07/2015 was normal. Bladder cancer 09/07/2014 08/23/2020 Overview: Sees Dr. Terry Last Assessment & Plan: Assessment: in remission, being monitored Peripheral neuropathy, idiopathic 04/25/2014 06/02/2014 Open wound(s) (multiple) of unspecified site(s), without mention of complication 06/04/2012 09/04/2012 Neoplasm of Uncertain Behavior(NUB) of skin 02/2109/04/2012 R/O BCC (basal cell carcinoma), trunk: chest 09/04/2012 Cerebral artery occlusion with cerebral infarcti on 07/13/2008 08/23/2020 documented as of this encounter (statuses as of 07/23/2022) [facility] History of Past illness Narrative* Problem Noted Date Resolved Date Morbid obesity with BMI of 40.0-44.9, adult 09/0 10/201609/04/2018 Well adult exam 12/19/2015 09/04/2018 Overview: Last done: 11/14/2016 Anemia 07/24/2015 09/04/2018 Overview: CBC 07/2015 was normal. Bladder cancer 09/07/2014 08/23/2020 Overview: Sees Dr. Terry Last Assessment & Plan: Assessment: in remission, being monitored Peripheral neuropathy, idiopathic 04/25/2014 06/02/2014 Open wound(s) (multiple) of unspecified site(s), without mention of complication 06/04/2012 09/04/2012 Neoplasm of Uncertain Behavior(NUB) of skin 02/2109/04/2012 R/O BCC (basal cell carcinoma), trunk: chest 09/04/2012 Cerebral artery occlusion with cerebral infarcti on 07/13/2008 08/23/2020 documented as of this encounter (statuses as of 07/29/2022) [facility] History of Past illness Narrative* Problem Noted Date Resolved Date Morbid obesity with BMI of 40.0-44.9, adult 09/0 10/201609/04/2018 Well adult exam 12/19/2015 09/04/2018 Overview: Last done: 11/14/2016 Anemia 07/24/2015 09/04/2018 Overview: CBC 07/2015 was normal. Bladder cancer 09/07/2014 08/23/2020 Overview: Sees Dr. Terry Last Assessment & Plan: Assessment: in remission, being monitored Peripheral neuropathy, idiopathic 04/25/2014 06/02/2014 Open wound(s) (multiple) of unspecified site(s), without mention of complication 06/04/2012 09/04/2012 Neoplasm of Uncertain Behavior(NUB) of skin 02/2109/04/2012 R/O BCC (basal cell carcinoma), trunk: chest 09/04/2012 Cerebral artery occlusion with cerebral infarcti on 07/13/2008 08/23/2020 documented as of this encounter (statuses as of 08/02/2022) [facility] History of Past illness Narrative* Problem Noted Date Resolved Date Morbid obesity with BMI of 40.0-44.9, adult 09/0 10/201609/04/2018 Well adult exam 12/19/2015 09/04/2018 Overview: Last done: 11/14/2016 Anemia 07/24/2015 09/04/2018 Overview: CBC 07/2015 was normal. Bladder cancer 09/07/2014 08/23/2020 Overview: Sees Dr. Terry Last Assessment & Plan: Assessment: in remission, being monitored Peripheral neuropathy, idiopathic 04/25/2014 06/02/2014 Open wound(s) (multiple) of unspecified site(s), without mention of complication 06/04/2012 09/04/2012 Neoplasm of Uncertain Behavior(NUB) of skin 02/2109/04/2012 R/O BCC (basal cell carcinoma), trunk: chest 09/04/2012 Cerebral artery occlusion with cerebral infarcti on 07/13/2008 08/23/2020 documented as of this encounter (statuses as of 08/06/2022) [facility] History of Past illness Narrative* Problem Noted Date Resolved Date Morbid obesity with BMI of 40.0-44.9, adult 09/0 10/201609/04/2018 Well adult exam 12/19/2015 09/04/2018 Overview: Last done: 11/14/2016 Anemia 07/24/2015 09/04/2018 Overview: CBC 07/2015 was normal. Bladder cancer 09/07/2014 08/23/2020 Overview: Sees Dr. Terry Last Assessment & Plan: Assessment: in remission, being monitored Peripheral neuropathy, idiopathic 04/25/2014 06/02/2014 Open wound(s) (multiple) of unspecified site(s), without mention of complication 06/04/2012 09/04/2012 Neoplasm of Uncertain Behavior(NUB) of skin 02/2109/04/2012 R/O BCC (basal cell carcinoma), trunk: chest 09/04/2012 Cerebral artery occlusion with cerebral infarcti on 07/13/2008 08/23/2020 documented as of this encounter (statuses as of 08/29/2022) [facility] History of Past illness Narrative* Problem Noted Date Resolved Date Morbid obesity with BMI of 40.0-44.9, adult 09/0 10/201609/04/2018 Well adult exam 12/19/2015 09/04/2018 Overview: Last done: 11/14/2016 Anemia 07/24/2015 09/04/2018 Overview: CBC 07/2015 was normal. Bladder cancer 09/07/2014 08/23/2020 Overview: Sees Dr. Terry Last Assessment & Plan: Assessment: in remission, being monitored Peripheral neuropathy, idiopathic 04/25/2014 06/02/2014 Open wound(s) (multiple) of unspecified site(s), without mention of complication 06/04/2012 09/04/2012 Neoplasm of Uncertain Behavior(NUB) of skin 02/2109/04/2012 R/O BCC (basal cell carcinoma), trunk: chest 09/04/2012 Cerebral artery occlusion with cerebral infarcti on 07/13/2008 08/23/2020 documented as of this encounter (statuses as of 09/16/2022) [facility] History of Past illness Narrative* Problem Noted Date Resolved Date Morbid obesity with BMI of 40.0-44.9, adult 09/0 10/201609/04/2018 Well adult exam 12/19/2015 09/04/2018 Overview: Last done: 11/14/2016 Anemia 07/24/2015 09/04/2018 Overview: CBC 07/2015 was normal. Bladder cancer 09/07/2014 08/23/2020 Overview: Sees Dr. Terry Last Assessment & Plan: Assessment: in remission, being monitored Peripheral neuropathy, idiopathic 04/25/2014 06/02/2014 Open wound(s) (multiple) of unspecified site(s), without mention of complication 06/04/2012 09/04/2012 Neoplasm of Uncertain Behavior(NUB) of skin 02/2109/04/2012 R/O BCC (basal cell carcinoma), trunk: chest 09/04/2012 Cerebral artery occlusion with cerebral infarcti on 07/13/2008 08/23/2020 documented as of this encounter (statuses as of 09/17/2022) [facility] History of Past illness Narrative* Problem Noted Date Resolved Date Morbid obesity with BMI of 40.0-44.9, adult 09/0 10/201609/04/2018 Well adult exam 12/19/2015 09/04/2018 Overview: Last done: 11/14/2016 Anemia 07/24/2015 09/04/2018 Overview: CBC 07/2015 was normal. Bladder cancer 09/07/2014 08/23/2020 Overview: Sees Dr. Terry Last Assessment & Plan: Assessment: in remission, being monitored Peripheral neuropathy, idiopathic 04/25/2014 06/02/2014 Open wound(s) (multiple) of unspecified site(s), without mention of complication 06/04/2012 09/04/2012 Neoplasm of Uncertain Behavior(NUB) of skin 02/2109/04/2012 R/O BCC (basal cell carcinoma), trunk: chest 09/04/2012 Cerebral artery occlusion with cerebral infarcti on 07/13/2008 08/23/2020 documented as of this encounter (statuses as of 09/23/2022) [facility] History of Past illness Narrative* Problem Noted Date Resolved Date Morbid obesity with BMI of 40.0-44.9, adult 09/0 10/201609/04/2018 Well adult exam 12/19/2015 09/04/2018 Overview: Last done: 11/14/2016 Anemia 07/24/2015 09/04/2018 Overview: CBC 07/2015 was normal. Bladder cancer 09/07/2014 08/23/2020 Overview: Sees Dr. Terry Last Assessment & Plan: Assessment: in remission, being monitored Peripheral neuropathy, idiopathic 04/25/2014 06/02/2014 Open wound(s) (multiple) of unspecified site(s), without mention of complication 06/04/2012 09/04/2012 Neoplasm of Uncertain Behavior(NUB) of skin 02/2109/04/2012 R/O BCC (basal cell carcinoma), trunk: chest 09/04/2012 Cerebral artery occlusion with cerebral infarcti on 07/13/2008 08/23/2020 documented as of this encounter (statuses as of 10/03/2022) [facility] History of Past illness Narrative* Problem Noted Date Resolved Date Morbid obesity with BMI of 40.0-44.9, adult 09/0 10/201609/04/2018 Well adult exam 12/19/2015 09/04/2018 Overview: Last done: 11/14/2016 Anemia 07/24/2015 09/04/2018 Overview: CBC 07/2015 was normal. Bladder cancer 09/07/2014 08/23/2020 Overview: Sees Dr. Terry Last Assessment & Plan: Assessment: in remission, being monitored Peripheral neuropathy, idiopathic 04/25/2014 06/02/2014 Open wound(s) (multiple) of unspecified site(s), without mention of complication 06/04/2012 09/04/2012 Neoplasm of Uncertain Behavior(NUB) of skin 02/2109/04/2012 R/O BCC (basal cell carcinoma), trunk: chest 09/04/2012 Cerebral artery occlusion with cerebral infarcti on 07/13/2008 08/23/2020 documented as of this encounter (statuses as of 10/21/2022) [facility] History of Past illness Narrative* Problem Noted Date Resolved Date Morbid obesity with BMI of 40.0-44.9, adult 09/0 10/201609/04/2018 Well adult exam 12/19/2015 09/04/2018 Overview: Last done: 11/14/2016 Anemia 07/24/2015 09/04/2018 Overview: CBC 07/2015 was normal. Bladder cancer 09/07/2014 08/23/2020 Overview: Sees Dr. Terry Last Assessment & Plan: Assessment: in remission, being monitored Peripheral neuropathy, idiopathic 04/25/2014 06/02/2014 Open wound(s) (multiple) of unspecified site(s), without mention of complication 06/04/2012 09/04/2012 Neoplasm of Uncertain Behavior(NUB) of skin 02/2109/04/2012 R/O BCC (basal cell carcinoma), trunk: chest 09/04/2012 Cerebral artery occlusion with cerebral infarcti on 07/13/2008 08/23/2020 documented as of this encounter (statuses as of 11/04/2022) [facility] History of Past illness Narrative* Problem Noted Date Resolved Date Morbid obesity with BMI of 40.0-44.9, adult 09/0 10/201609/04/2018 Well adult exam 12/19/2015 09/04/2018 Overview: Last done: 11/14/2016 Anemia 07/24/2015 09/04/2018 Overview: CBC 07/2015 was normal. Bladder cancer 09/07/2014 08/23/2020 Overview: Sees Dr. Terry Last Assessment & Plan: Assessment: in remission, being monitored Peripheral neuropathy, idiopathic 04/25/2014 06/02/2014 Open wound(s) (multiple) of unspecified site(s), without mention of complication 06/04/2012 09/04/2012 Neoplasm of Uncertain Behavior(NUB) of skin 02/2109/04/2012 R/O BCC (basal cell carcinoma), trunk: chest 09/04/2012 Cerebral artery occlusion with cerebral infarcti on 07/13/2008 08/23/2020 documented as of this encounter (statuses as of 11/30/2022) [facility] History of Past illness Narrative* Problem Noted Date Resolved Date Morbid obesity with BMI of 40.0-44.9, adult 09/0 10/201609/04/2018 Well adult exam 12/19/2015 09/04/2018 Overview: Last done: 11/14/2016 Anemia 07/24/2015 09/04/2018 Overview: CBC 07/2015 was normal. Bladder cancer 09/07/2014 08/23/2020 Overview: Sees Dr. Terry Last Assessment & Plan: Assessment: in remission, being monitored Peripheral neuropathy, idiopathic 04/25/2014 06/02/2014 Open wound(s) (multiple) of unspecified site(s), without mention of complication 06/04/2012 09/04/2012 Neoplasm of Uncertain Behavior(NUB) of skin 02/2109/04/2012 R/O BCC (basal cell carcinoma), trunk: chest 09/04/2012 Cerebral artery occlusion with cerebral infarcti on 07/13/2008 08/23/2020 documented as of this encounter (statuses as of 11/26/2022) [facility] History of Past illness Narrative* Problem Noted Date Resolved Date Morbid obesity with BMI of 40.0-44.9, adult 09/0 10/201609/04/2018 Well adult exam 12/19/2015 09/04/2018 Overview: Last done: 11/14/2016 Anemia 07/24/2015 09/04/2018 Overview: CBC 07/2015 was normal. Bladder cancer 09/07/2014 08/23/2020 Overview: Sees Dr. Terry Last Assessment & Plan: Assessment: in remission, being monitored Peripheral neuropathy, idiopathic 04/25/2014 06/02/2014 Open wound(s) (multiple) of unspecified site(s), without mention of complication 06/04/2012 09/04/2012 Neoplasm of Uncertain Behavior(NUB) of skin 02/2109/04/2012 R/O BCC (basal cell carcinoma), trunk: chest 09/04/2012 Cerebral artery occlusion with cerebral infarcti on 07/13/2008 08/23/2020 documented as of this encounter (statuses as of 12/06/2022) [facility] History of Past illness Narrative* Problem Noted Date Resolved Date Morbid obesity with BMI of 40.0-44.9, adult 09/0 10/201609/04/2018 Well adult exam 12/19/2015 09/04/2018 Overview: Last done: 11/14/2016 Anemia 07/24/2015 09/04/2018 Overview: CBC 07/2015 was normal. Bladder cancer 09/07/2014 08/23/2020 Overview: Sees Dr. Terry Last Assessment & Plan: Assessment: in remission, being monitored Peripheral neuropathy, idiopathic 04/25/2014 06/02/2014 Open wound(s) (multiple) of unspecified site(s), without mention of complication 06/04/2012 09/04/2012 Neoplasm of Uncertain Behavior(NUB) of skin 02/2109/04/2012 R/O BCC (basal cell carcinoma), trunk: chest 09/04/2012 Cerebral artery occlusion with cerebral infarcti on 07/13/2008 08/23/2020 documented as of this encounter (statuses as of 12/10/2022) [facility] History of Past illness Narrative* Problem Noted Date Resolved Date Morbid obesity with BMI of 40.0-44.9, adult 09/0 10/201609/04/2018 Well adult exam 12/19/2015 09/04/2018 Overview: Last done: 11/14/2016 Anemia 07/24/2015 09/04/2018 Overview: CBC 07/2015 was normal. Bladder cancer 09/07/2014 08/23/2020 Overview: Sees Dr. Terry Last Assessment & Plan: Assessment: in remission, being monitored Peripheral neuropathy, idiopathic 04/25/2014 06/02/2014 Open wound(s) (multiple) of unspecified site(s), without mention of complication 06/04/2012 09/04/2012 Neoplasm of Uncertain Behavior(NUB) of skin 02/2109/04/2012 R/O BCC (basal cell carcinoma), trunk: chest 09/04/2012 Cerebral artery occlusion with cerebral infarcti on 07/13/2008 08/23/2020 documented as of this encounter (statuses as of 12/11/2022) [facility] History of Past illness Narrative* Problem Noted Date Resolved Date Morbid obesity with BMI of 40.0-44.9, adult 09/0 10/201609/04/2018 Well adult exam 12/19/2015 09/04/2018 Overview: Last done: 11/14/2016 Anemia 07/24/2015 09/04/2018 Overview: CBC 07/2015 was normal. Bladder cancer 09/07/2014 08/23/2020 Overview: Sees Dr. Terry Last Assessment & Plan: Assessment: in remission, being monitored Peripheral neuropathy, idiopathic 04/25/2014 06/02/2014 Open wound(s) (multiple) of unspecified site(s), without mention of complication 06/04/2012 09/04/2012 Neoplasm of Uncertain Behavior(NUB) of skin 02/2109/04/2012 R/O BCC (basal cell carcinoma), trunk: chest 09/04/2012 Cerebral artery occlusion with cerebral infarcti on 07/13/2008 08/23/2020 documented as of this encounter (statuses as of 12/12/2022) [facility] History of Past illness Narrative* Problem Noted Date Resolved Date Morbid obesity with BMI of 40.0-44.9, adult 09/0 10/201609/04/2018 Well adult exam 12/19/2015 09/04/2018 Overview: Last done: 11/14/2016 Anemia 07/24/2015 09/04/2018 Overview: CBC 07/2015 was normal. Bladder cancer 09/07/2014 08/23/2020 Overview: Sees Dr. Terry Last Assessment & Plan: Assessment: in remission, being monitored Peripheral neuropathy, idiopathic 04/25/2014 06/02/2014 Open wound(s) (multiple) of unspecified site(s), without mention of complication 06/04/2012 09/04/2012 Neoplasm of Uncertain Behavior(NUB) of skin 02/2109/04/2012 R/O BCC (basal cell carcinoma), trunk: chest 09/04/2012 Cerebral artery occlusion with cerebral infarcti on 07/13/2008 08/23/2020 documented as of this encounter (statuses as of 12/19/2022) [facility] History of Past illness Narrative* Problem Noted Date Diagnosed Date Resolved Date Morbid obesity with BMI of 40.0-44.9, adult 02/25/2017 09/04/2018 Well adult exam 12/19/2015 09/04/2018 Overview: Last done: 11/14/2016 Anemia 07/24/2015 09/04/2018 Overview: CBC 07/2015 was normal. Bladder cancer 09/07/2014 08/23/2020 Overview: Sees Dr. Terry Last Assessment & Plan: Assessment: in remission, being monitored Peripheral neuropathy, idiopathic 04/25/2014 06/02/2014 Open wound(s) (multiple) of unspecified site(s), without mention of complication 06/04/2012 09/04/2012 Neoplasm of Uncertain Behavior(NUB) of skin 03/08/2012 09/04/2012 R/O BCC (basal cell carcinoma), trunk: chest 2 09/04/2012 Cerebral artery occlusion wi th cerebral infarction 07/13/2008 08/23/2020 documented as of this encounter (statuses as of 01/07/2023) [facility] History of Past illness Narrative* Problem Noted Date Diagnosed Date Resolved Date Morbid obesity with BMI of 40.0-44.9, adult 02/25/2017 09/04/2018 Well adult exam 12/19/2015 09/04/2018 Overview: Last done: 11/14/2016 Anemia 07/24/2015 09/04/2018 Overview: CBC 07/2015 was normal. Bladder cancer 09/07/2014 08/23/2020 Overview: Sees Dr. Terry Last Assessment & Plan: Assessment: in remission, being monitored Peripheral neuropathy, idiopathic 04/25/2014 06/02/2014 Open wound(s) (multiple) of unspecified site(s), without mention of complication 06/04/2012 09/04/2012 Neoplasm of Uncertain Behavior(NUB) of skin 03/08/2012 09/04/2012 R/O BCC (basal cell carcinoma), trunk: chest 2 09/04/2012 Cerebral artery occlusion wi th cerebral infarction 07/13/2008 08/23/2020 documented as of this encounter (statuses as of 02/08/2023) [facility] History of Past illness Narrative* Problem Noted Date Diagnosed Date Resolved Date Morbid obesity with BMI of 40.0-44.9, adult 02/25/2017 09/04/2018 Well adult exam 12/19/2015 09/04/2018 Overview: Last done: 11/14/2016 Anemia 07/24/2015 09/04/2018 Overview: CBC 07/2015 was normal. Bladder cancer 09/07/2014 08/23/2020 Overview: Sees Dr. Terry Last Assessment & Plan: Assessment: in remission, being monitored Peripheral neuropathy, idiopathic 04/25/2014 06/02/2014 Open wound(s) (multiple) of unspecified site(s), without mention of complication 06/04/2012 09/04/2012 Neoplasm of Uncertain Behavior(NUB) of skin 03/08/2012 09/04/2012 R/O BCC (basal cell carcinoma), trunk: chest 2 09/04/2012 Cerebral artery occlusion wi th cerebral infarction 07/13/2008 08/23/2020 documented as of this encounter (statuses as of 02/20/2023) [facility] History of Past illness Narrative* Problem Noted Date Diagnosed Date Resolved Date Morbid obesity with BMI of 40.0-44.9, adult 02/25/2017 09/04/2018 Well adult exam 12/19/2015 09/04/2018 Overview: Last done: 11/14/2016 Anemia 07/24/2015 09/04/2018 Overview: CBC 07/2015 was normal. Bladder cancer 09/07/2014 08/23/2020 Overview: Sees Dr. Terry Last Assessment & Plan: Assessment: in remission, being monitored Peripheral neuropathy, idiopathic 04/25/2014 06/02/2014 Open wound(s) (multiple) of unspecified site(s), without mention of complication 06/04/2012 09/04/2012 Neoplasm of Uncertain Behavior(NUB) of skin 03/08/2012 09/04/2012 R/O BCC (basal cell carcinoma), trunk: chest 2 09/04/2012 Cerebral artery occlusion wi th cerebral infarction 07/13/2008 08/23/2020 documented as of this encounter (statuses as of 03/04/2023) [facility] History of Past illness Narrative* Problem Noted Date Diagnosed Date Resolved Date Morbid obesity with BMI of 40.0-44.9, adult 02/25/2017 09/04/2018 Well adult exam 12/19/2015 09/04/2018 Overview: Last done: 11/14/2016 Anemia 07/24/2015 09/04/2018 Overview: CBC 07/2015 was normal. Bladder cancer 09/07/2014 08/23/2020 Overview: Sees Dr. Terry Last Assessment & Plan: Assessment: in remission, being monitored Peripheral neuropathy, idiopathic 04/25/2014 06/02/2014 Open wound(s) (multiple) of unspecified site(s), without mention of complication 06/04/2012 09/04/2012 Neoplasm of Uncertain Behavior(NUB) of skin 03/08/2012 09/04/2012 R/O BCC (basal cell carcinoma), trunk: chest 2 09/04/2012 Cerebral artery occlusion wi th cerebral infarction 07/13/2008 08/23/2020 documented as of this encounter (statuses as of 03/12/2023) [facility] History of Past illness Narrative* Problem Noted Date Diagnosed Date Resolved Date Morbid obesity with BMI of 40.0-44.9, adult 02/25/2017 09/04/2018 Well adult exam 12/19/2015 09/04/2018 Overview: Last done: 11/14/2016 Anemia 07/24/2015 09/04/2018 Overview: CBC 07/2015 was normal. Bladder cancer 09/07/2014 08/23/2020 Overview: Sees Dr. Terry Last Assessment & Plan: Assessment: in remission, being monitored Peripheral neuropathy, idiopathic 04/25/2014 06/02/2014 Open wound(s) (multiple) of unspecified site(s), without mention of complication 06/04/2012 09/04/2012 Neoplasm of Uncertain Behavior(NUB) of skin 03/08/2012 09/04/2012 R/O BCC (basal cell carcinoma), trunk: chest 2 09/04/2012 Cerebral artery occlusion wi th cerebral infarction 07/13/2008 08/23/2020 documented as of this encounter (statuses as of 03/14/2023) [facility] No data available for this section [facility] Evaluation [facility]* Diagnosis BPH with obstruction/lower urinary tract symptoms Hypertrophy of prostate with urinary obstruction and other lower urinary tract symptoms (LUTS) [facility] Essential hypertension- Primary Unspecified essential hypertension Neuropathy Mononeuritis of unspecified site Bilateral leg edema Edema Mixed hyperlipidemia Mild pulmonary hypertension (HCC) Other chronic pulmonary heart diseases SVT (supraventricular tachycardia) (HCC) Other specified cardiac dysrhythmias JESSY (obstructive sleep apnea) Obstructive sleep apnea (adult) (pediatric) Gastroesophageal reflux disease without esophagitis Esophageal reflux BPH with obstruction/lower urinary tract symptoms Hypertrophy of prostate with urinary obstruction and other lower urinary tract symptoms (LUTS) Elevated fasting blood sugar Impaired fasting glucose Acquired hypothyroidism Unspecified hypothyroidism Morbid obesity with body mass index (BMI) of 40.0 to 44.9 in adult (HCC) [facility] Diagnosis BPH with obstruction/lower urinary tract symptoms Hypertrophy of prostate with urinary obstruction and other lower urinary tract symptoms (LUTS) [facility] Diagnosis 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 History of CVA (cerebrovascular accident) Transient ischemic attack (TIA), and cerebral infarction without residual deficits Essential hypertension Unspecified essential hypertension Mixed hyperlipidemia Acquired hypothyroidism Unspecified hypothyroidism Elevated fasting blood sugar Impaired fasting glucose [facility] Diagnosis Transient global amnesia Confusion Unspecified psychosis History of CVA (cerebrovascular accident) Transient ischemic attack (TIA), and cerebral infarction without residual deficits [facility] Diagnosis Transient global amnesia- Primary History of CVA (cerebrovascular accident) Transient ischemic attack (TIA), and cerebral infarction without residual deficits Confusion Unspecified psychosis [facility] Diagnosis Transient global amnesia History of CVA (cerebrovascular accident) Transient ischemic attack (TIA), and cerebral infarction without residual deficits Confusion Unspecified psychosis [facility] Diagnosis Bilateral carotid artery stenosis Occlusion and stenosis of carotid artery without mention of cerebral infarction [facility] Diagnosis Medicare annual wellness visit, subsequent- Primary Routine general medical examination at a health care facility Essential hypertension Unspecified essential hypertension Mixed hyperlipidemia Acquired hypothyroidism Unspecified hypothyroidism Gastroesophageal reflux disease without esophagitis Esophageal reflux Elevated fasting blood sugar Impaired fasting glucose History of CVA (cerebrovascular accident) Transient ischemic attack (TIA), and cerebral infarction without residual deficits Mild pulmonary hypertension (HCC) Other chronic pulmonary heart diseases SVT (supraventricular tachycardia) ([facility]) Other specified cardiac dysrhythmias Bilateral leg edema Edema Neuropathy Mononeuritis of unspecified site Venous insufficiency (chronic) (peripheral) Unspecified venous (peripheral) insufficiency Morbid obesity with body mass index (BMI) of 40.0 to 44.9 in adult (HCC) Gait difficulty Abnormality of gait Balance problem Other symptoms involving nervous and musculoskeletal systems Bilateral carotid artery stenosis Occlusion and stenosis of carotid artery without mention of cerebral infarction Pharyngoesophageal dysphagia Dysphagia, pharyngoesophageal phase Living will on file Advance directive discussed with patient Other specified counseling Encounter for immunization Need for other specified prophylactic vaccination against single bacterial disease [facility] Diagnosis Memory difficulties Memory loss [facility] Diagnosis Low serum vitamin B12 [facility] Diagnosis Onset Date Resolution Status Esophageal dysphagia acute [facility] Work Phone: Evaluation note* Diagnosis Open wound of skin- Primary Seborrheic keratoses Other seborrheic keratosis SVT (supraventricular tachycardia) (HCC)- Primary Other specified cardiac dysrhythmias documented in this encounter [facility] note* Diagnosis SVT (supraventricular tachycardia) ([facility])- Primary Other specified cardiac dysrhythmias Essential hypertension Unspecified essential hypertension Mixed hyperlipidemia 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 JESSY (obstructive sleep apnea) Obstructive sleep apnea (adult) (pediatric) Obesity, Class II, BMI 35-39.9 Obesity, unspecified [facility] Diagnosis Seborrheic keratoses- Primary Other seborrheic keratosis Open wound of skin Mixed hyperlipidemia Essential hypertension Unspecified essential hypertension Acquired hypothyroidism Unspecified hypothyroidism Elevated fasting blood sugar Impaired fasting glucose documented in this encounter [facility] note* Diagnosis Fall, initial encounter- Primary Injury of head, initial encounter Lung nodules Other nonspecific abnormal finding of lung field [facility] Diagnosis Bilateral leg edema Edema [facility] Diagnosis Chronic insomnia- Primary Insomnia, unspecified [facility] Diagnosis Primary hypertension- Primary Unspecified essential hypertension Essential hypertension Unspecified essential hypertension SVT (supraventricular tachycardia) ([facility]) Other specified cardiac dysrhythmias [facility] Diagnosis Essential hypertension- Primary Unspecified essential hypertension Mixed hyperlipidemia Elevated fasting blood sugar Impaired fasting glucose Bilateral leg edema Edema Gastroesophageal reflux disease without esophagitis Esophageal reflux Acquired hypothyroidism Unspecified hypothyroidism SVT (supraventricular tachycardia) (HCC) Other specified cardiac dysrhythmias Mild pulmonary hypertension (HCC) Other chronic pulmonary heart diseases Bilateral carotid artery stenosis Occlusion and stenosis of carotid artery without mention of cerebral infarction History of CVA (cerebrovascular accident) Transient ischemic attack (TIA), and cerebral infarction without residual deficits Vertigo following cerebrovascular accident Vertigo, 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 Venous insufficiency (chronic) (peripheral) Unspecified venous (peripheral) insufficiency Stasis dermatitis of both legs Varicose veins of lower extremities with inflammation Neuropathy Mononeuritis of unspecified site Morbid obesity with body mass index (BMI) of 40.0 to 44.9 in adult (HCC) Seborrheic keratoses Other seborrheic keratosis [facility] Diagnosis BPH with obstruction/lower urinary tract symptoms Hypertrophy of prostate with urinary obstruction and other lower urinary tract symptoms (LUTS) [facility]No [facility] Work [facility]: Evaluation note* Diagnosis Neuropathy Mononeuritis of unspecified site [facility] Diagnosis Acquired hypothyroidism- Primary Unspecified hypothyroidism Junctional bradycardia Other specified cardiac dysrhythmias Weakness of both lower extremities 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, unspecified blood vessel laterality (HCC) [facility]* Diagnosis Acquired hypothyroidism- Primary Unspecified hypothyroidism [facility] Diagnosis Lightheaded- Primary Dizziness and giddiness SVT (supraventricular tachycardia) (HCC) Other specified cardiac dysrhythmias Essential hypertension Unspecified essential hypertension Mixed hyperlipidemia JESSY (obstructive sleep apnea) Obstructive sleep apnea (adult) (pediatric) [facility] Diagnosis Acquired hypothyroidism Unspecified hypothyroidism Chronic insomnia Insomnia, unspecified Bilateral leg edema Edema [facility] Diagnosis Acquired hypothyroidism Unspecified hypothyroidism [facility] Diagnosis Foot injury, left, initial encounter- Primary [facility]* Diagnosis Skin lesions- Primary Skin cancer screening Screening for malignant neoplasm of the skin [facility] Diagnosis Medicare annual wellness visit, subsequent- Primary Routine general medical examination at a health care facility Acquired hypothyroidism Unspecified hypothyroidism Chronic insomnia Insomnia, unspecified Essential hypertension Unspecified essential hypertension Mixed hyperlipidemia Elevated fasting blood sugar Impaired fasting glucose Gastroesophageal reflux disease without esophagitis Esophageal reflux Bilateral carotid artery stenosis Occlusion and stenosis of carotid artery without mention of cerebral infarction History of CVA (cerebrovascular accident) Transient ischemic attack (TIA), and cerebral infarction without residual deficits Acute, but ill-defined, cerebrovascular disease Bilateral leg edema Edema Mild pulmonary hypertension (HCC) Other chronic pulmonary heart diseases SVT (supraventricular tachycardia) Other specified cardiac dysrhythmias 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 Low serum vitamin B12 Neuropathy Mononeuritis of unspecified site Pulmonary nodule Solitary pulmonary nodule Stasis dermatitis of both legs Varicose veins of lower extremities with inflammation Venous insufficiency (chronic) (peripheral) Unspecified venous (peripheral) insufficiency BPH with obstruction/lower urinary tract symptoms Hypertrophy of prostate with urinary obstruction and other lower urinary tract symptoms (LUTS) History of bladder cancer Personal history of malignant neoplasm of bladder 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, lumbar region, with neurogenic claudication Gait difficulty Abnormality of gait Advance directive discussed with patient Other specified counseling Skin cancer screening Screening for malignant neoplasm of the skin Skin lesions Balance problem Other symptoms involving nervous and musculoskeletal systems At risk for falls Personal history of fall Encounter for immunization Need for other specified prophylactic vaccination against single bacterial disease [facility] Lung nodules- Primary Other nonspecific abnormal finding of lung field [facility] Diagnosis SVT (supraventricular tachycardia) [I47.10]- Primary Other specified cardiac dysrhythmias 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 Essential hypertension Unspecified essential hypertension [facility] Diagnosis Lung nodules Other nonspecific abnormal finding of lung field [facility] Diagnosis Bilateral carotid artery stenosis Occlusion and stenosis of carotid artery without mention of cerebral infarction [facility]* Diagnosis Skin infection- Primary Unspecified local infection of skin and subcutaneous tissue Rash Rash and other nonspecific skin eruption [facility] Diagnosis Coccyxdynia- Primary Other disorder of coccyx [facility]* Diagnosis BPH with obstruction/lower urinary tract symptoms- Primary Hypertrophy of prostate with urinary obstruction and other lower urinary tract symptoms (LUTS) OAB (overactive bladder) Hypertonicity of bladder History of bladder cancer Personal history of malignant neoplasm of bladder Acquired buried penis Other specified disorder of penis Screening for genitourinary condition Screening for other and unspecified genitourinary condition At risk for falls Personal history of fall Urgency of urination [facility] Diagnosis OAB (overactive bladder)- Primary Hypertonicity of bladder [facility] Diagnosis BPH with obstruction/lower urinary tract symptoms- Primary Hypertrophy of prostate with urinary obstruction and other lower urinary tract symptoms (LUTS) Malignant neoplasm of urinary bladder, unspecified site (HCC) [facility] Diagnosis BPH with obstruction/lower urinary tract symptoms- Primary Hypertrophy of prostate with urinary obstruction and other lower urinary tract symptoms (LUTS) Malignant neoplasm of urinary bladder, unspecified site (HCC) [facility] Diagnosis Essential hypertension- Primary Unspecified essential hypertension Chronic insomnia Insomnia, unspecified Mixed hyperlipidemia Gastroesophageal reflux disease without esophagitis Esophageal reflux Bilateral leg edema Edema Mild pulmonary hypertension (HCC) Other chronic pulmonary heart diseases BPH with obstruction/lower urinary tract symptoms Hypertrophy of prostate with urinary obstruction and other lower urinary tract symptoms (LUTS) Pulmonary nodule Solitary pulmonary nodule Acquired hypothyroidism Unspecified hypothyroidism Elevated fasting blood sugar Impaired fasting glucose Medication management Encounter for long-term (current) use of other medications SVT (supraventricular tachycardia) ([facility]) Other specified cardiac dysrhythmias [facility] Diagnosis Neuropathy Mononeuritis of unspecified site [facility] Diagnosis OAB (overactive bladder)- Primary Hypertonicity of bladder [facility] Diagnosis BPH associated with nocturia- Primary Hypertrophy of prostate with urinary obstruction and other lower urinary tract symptoms (LUTS) OAB (overactive bladder) Hypertonicity of bladder History of bladder cancer Personal history of malignant neoplasm of bladder Acquired buried penis Other specified disorder of penis At risk for falls Personal history of fall Urgency of urination Urinary frequency BPH with obstruction/lower urinary tract symptoms Hypertrophy of prostate with urinary obstruction and other lower urinary tract symptoms (LUTS) [facility]* Diagnosis Gait difficulty- Primary Abnormality of gait 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, lumbar region, with neurogenic claudication At risk for falls Personal history of fall [facility] Diagnosis SVT (supraventricular tachycardia) (HCC)- Primary Other specified cardiac dysrhythmias Essential hypertension Unspecified essential hypertension [facility] Diagnosis Intertrigo- Primary Other specified erythematous condition Ulcers, skin (HCC) [facility] Diagnosis Acquired hypothyroidism Unspecified hypothyroidism [facility] Diagnosis Right upper quadrant abdominal pain- Primary Abdominal pain, right upper quadrant Gall bladder stones Calculus of gallbladder without mention of cholecystitis or obstruction Calculus of gallbladder without cholecystitis without obstruction Calculus of gallbladder without mention of cholecystitis or obstruction [facility] Diagnosis BPH with obstruction/lower urinary tract symptoms Hypertrophy of prostate with urinary obstruction and other lower urinary tract symptoms (LUTS) [facility] Diagnosis Yeast infection of the skin- Primary Candidiasis of skin and nails Intertrigo Other specified erythematous condition [facility] Diagnosis Right upper quadrant abdominal pain Abdominal pain, right upper quadrant Gall bladder stones Calculus of gallbladder without mention of cholecystitis or obstruction Calculus of gallbladder without cholecystitis without obstruction Calculus of gallbladder without mention of cholecystitis or obstruction [facility] Diagnosis Yeast infection of the skin- Primary Candidiasis of skin and nails [facility] Diagnosis Right upper quadrant abdominal pain Abdominal pain, right upper quadrant Gall bladder stones Calculus of gallbladder without mention of cholecystitis or obstruction Right upper quadrant abdominal pain Abdominal pain, right upper quadrant Gall bladder stones Calculus of gallbladder without mention of cholecystitis or obstruction [facility] Diagnosis Pre-operative examination- Primary Preoperative examination, unspecified Dupuytren's contracture of both hands Contracture of palmar fascia Essential hypertension Unspecified essential hypertension History of CVA (cerebrovascular accident) Transient ischemic attack (TIA), and cerebral infarction without residual deficits JESSY (obstructive sleep apnea) Obstructive sleep apnea (adult) (pediatric) Mixed hyperlipidemia Malignant neoplasm of urinary bladder, unspecified site (HCC) 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, lumbar region, with neurogenic claudication Class 2 obesity due to excess calories without serious comorbidity with body mass index (BMI) of 39.0 to 39.9 in adult Neuropathy Mononeuritis of unspecified site Right upper quadrant abdominal pain Abdominal pain, right upper quadrant Gall bladder stones Calculus of gallbladder without mention of cholecystitis or obstruction [facility]* Diagnosis Pre-operative examination- Primary Preoperative examination, unspecified Dupuytren's contracture of both hands Contracture of palmar fascia Essential hypertension Unspecified essential hypertension History of CVA (cerebrovascular accident) Transient ischemic attack (TIA), and cerebral infarction without residual deficits JESSY (obstructive sleep apnea) Obstructive sleep apnea (adult) (pediatric) Mixed hyperlipidemia Malignant neoplasm of urinary bladder, unspecified site (HCC) 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, lumbar region, with neurogenic claudication Class 2 obesity due to excess calories without serious comorbidity with body mass index (BMI) of 39.0 to 39.9 in adult Pre-operative examination- Primary Preoperative examination, unspecified SVT (supraventricular tachycardia) (HCC) Other specified cardiac dysrhythmias Leg edema, left Edema History of CVA (cerebrovascular accident) Transient ischemic attack (TIA), and cerebral infarction without residual deficits Venous insufficiency (chronic) (peripheral) Unspecified venous (peripheral) insufficiency 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 Essential hypertension Unspecified essential hypertension Mild pulmonary hypertension (HCC) Other chronic pulmonary heart diseases Mixed hyperlipidemia JESSY (obstructive sleep apnea) Obstructive sleep apnea (adult) (pediatric) Pulmonary nodule Solitary pulmonary nodule Gastroesophageal reflux disease without esophagitis Esophageal reflux BPH with obstruction/lower urinary tract symptoms Hypertrophy of prostate with urinary obstruction and other lower urinary tract symptoms (LUTS) Multiple renal cysts Acquired hypothyroidism Unspecified hypothyroidism Elevated fasting blood sugar Impaired fasting glucose 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 Personal history of other malignant neoplasm of skin History of bladder cancer Personal history of malignant neoplasm of bladder 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 OAB (overactive bladder) Hypertonicity of bladder Bilateral leg edema Edema Bilateral carotid artery stenosis Occlusion and stenosis of carotid artery without mention of cerebral infarction Right upper quadrant abdominal pain Abdominal pain, right upper quadrant Gall bladder stones Calculus of gallbladder without mention of cholecystitis or obstruction * Assessment & Plan Note - Candice Kahn, [employer] DESIGN ENGINEER - 02/12/2024 4:21 PM EDT Associated Problem(s): Bilateral carotid artery stenosis Assessment: 04/2023 Norma BAR right 40-59%, left 20-39% * Assessment & Plan Note - Candice Kahn APRN.CNP - 02/12/2024 4:19 PM EDT Associated Problem(s): Bilateral leg edema Assessment: controlled on rx * Assessment & Plan Note - Candice Kahn APRN.CNP - 02/12/2024 4:19 PM EDT Associated Problem(s): OAB (overactive bladder) Assessment: controlled on rx * Assessment & Plan Note - Candice Kahn APRN.CNP - 02/12/2024 4:18 PM EDT Associated Problem(s): 1st degree AV block Assessment: following cardiology * Assessment & Plan Note - Candice Kahn APRN.CNP - 02/11/2024 3:31 PM EDT Associated Problem(s): History of bladder cancer Assessment: Chronic - stable Dr. Ochoa performed a surveillance cystoscopy in September 2023. No acute findings. RTC in 1 for repeat Cysto per his note * Assessment & Plan Note - Candice Kahn APRN.CNP - 02/11/2024 3:27 PM EDT Associated Problem(s): 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 Assessment: s/p excision * Assessment & Plan Note - Candice Kahn APRN.CNP - 02/11/2024 3:22 PM EDT Associated Problem(s): Elevated fasting blood sugar Assessment: diet controlled Hemoglobin A1C (%) Date Value 09/29/2023 5.5 03/13/2021 6.5 * Assessment & Plan Note - Candice Kahn APRN.CNP - 02/11/2024 3:22 PM EDT Associated Problem(s): Acquired hypothyroidism Assessment: stable on rx * Assessment & Plan Note - Candice Kahn APRN.CNP - 02/11/2024 3:21 PM EDT Associated Problem(s): Multiple renal cysts Assessment: hx, stable on repeat imaging 02/2021 CT Creatinine Date Value Ref Range Status 09/29/2023 0.86 0.73 - 1.22 mg/dL Final 03/26/2023 0.94 0.73 - 1.22 mg/dL Final 09/23/2022 0.76 0.73 - 1.22 mg/dL Final 03/19/2022 0.94 0.73 - 1.22 mg/dL Final * Assessment & Plan Note - Candice Kahn APRN.CNP - 02/11/2024 3:19 PM EDT Associated Problem(s): BPH with obstruction/lower urinary tract symptoms Assessment: controlled on rx * Assessment & Plan Note - Candice Kahn APRN.CNP - 02/11/2024 3:19 PM EDT Associated Problem(s): Gastroesophageal reflux disease without esophagitis Assessment: diet controlled * Assessment & Plan Note - Candice Kahn APRN.CNP - 02/11/2024 3:19 PM EDT Associated Problem(s): Pulmonary nodule Assessment: under surveillance, stable 06/[address] * Assessment & Plan Note - Candcie Kahn APRN.CNP - 02/11/2024 3:18 PM EDT Associated Problem(s): JESSY (obstructive sleep apnea) Assessment: non-compliant with CPAP * Assessment & Plan Note - Candice Kahn APRN.CNP - 02/11/2024 3:18 PM EDT Associated Problem(s): Mixed hyperlipidemia Assessment: c/w statin * Assessment & Plan Note - Candice Kahn APRN.CNP - 02/11/2024 3:18 PM EDT Associated Problem(s): Mild pulmonary hypertension (HCC) Assessment: following [facility], [facility] Recent Results (from the past 62924 hour(s)) ECHO Collection Time: 12/25/21 8:42 AM Impression CONCLUSIONS: - Technically difficult exam due to body habitus. - Exam indication: TIA - The left ventricle is normal in size. Left ventricular systolic function is normal. EF = 65 5% (2D biplane) Indeterminate left ventricular diastolic dysfunction due to inconsistent or technically suboptimal data. - The right ventricle is normal in size. Right ventricular systolic function is normal. - There are no significant valvular abnormalities. - The visualized aorta is borderline dilated with a maximal dimension of 4.0 cm. - Exam was compared with the prior echocardiographic exam performed on 11/03/2018, no significant change. * * * Final * * * * Assessment & Plan Note - Candice Kahn APRN.CNP - 02/11/2024 3:17 PM EDT Associated Problem(s): Essential hypertension Assessment: controlled on rx Last 14 BP Last 14 Encounter BP Readings: Date: BP: 02/11/2024 116/60 01/26/2024 132/72 01/20/2024 143/71 01/13/2024 125/73 01/07/2024 122/78 12/27/2023 132/80 12/01/2023 134/64 11/03/2023 128/70 10/09/2023 115/68 09/09/2023 125/76 08/26/2023 127/75 08/04/2023 118/66 06/12/2023 142/68 05/23/2023 130/78 * Assessment & Plan Note - Candice Kahn APRN.CNP - 02/11/2024 3:17 PM EDT Associated Problem(s): Familial peripheral neuropathy Assessment: controlled on rx * Assessment & Plan Note - Candice Kahn APRN.CNP - 02/11/2024 3:17 PM EDT Associated Problem(s): Venous insufficiency (chronic) (peripheral) Assessment: bilateral lower extremity edema L>R since an injury end of November when he fell per , large hematoma that appears to be resolving but left leg slightly larger, tender varicosities posterior left calf, no erythema or increased warmth. Doppler ordered to ensure and pt of possibility of a DVT. * Assessment & Plan Note - Candice Kahn APRN.CNP - 02/11/2024 3:15 PM EDT Associated Problem(s): History of CVA (cerebrovascular accident) Assessment: residual right leg weakness, balance issues, uses walker * Assessment & Plan Note - Candice Kahn APRN.CNP - 02/11/2024 2:37 PM EDT Associated Problem(s): SVT (supraventricular tachycardia) (HCC) Assessment: controlled on rx 12/01/2023 Dr. Jose Assessment and Plan: 83 years old gentleman prior history of supraventricular tachycardia hypertensive heart disease ASSESSMENT/PLAN: 1. SVT (supraventricular tachycardia) (HCC) - ICD9: 427.89, ICD10: I47.10 (primary diagnosis) Stable with few episodes and runs of SVT controlled well 2. Essential hypertension - ICD9: 401.9, ICD10: I10 - Controlled - Continue current medications - Recommend home blood pressure monitoring, to bring results to next visit - Encouraged sodium restriction, DASH or Mediterranean diet - Recommend regular aerobic exercise Nikko Jose MD Follow up planning: One year [facility] Diagnosis Pre-operative examination- Primary Preoperative examination, unspecified Dupuytren's contracture of both hands Contracture of palmar fascia Essential hypertension Unspecified essential hypertension History of CVA (cerebrovascular accident) Transient ischemic attack (TIA), and cerebral infarction without residual deficits JESSY (obstructive sleep apnea) Obstructive sleep apnea (adult) (pediatric) Mixed hyperlipidemia Malignant neoplasm of urinary bladder, unspecified site (HCC) 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, lumbar region, with neurogenic claudication Class 2 obesity due to excess calories without serious comorbidity with body mass index (BMI) of 39.0 to 39.9 in adult Pre-operative examination- Primary Preoperative examination, unspecified SVT (supraventricular tachycardia) (HCC) Other specified cardiac dysrhythmias Leg edema, left Edema History of CVA (cerebrovascular accident) Transient ischemic attack (TIA), and cerebral infarction without residual deficits Venous insufficiency (chronic) (peripheral) Unspecified venous (peripheral) insufficiency 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 Essential hypertension Unspecified essential hypertension Mild pulmonary hypertension (HCC) Other chronic pulmonary heart diseases Mixed hyperlipidemia JESSY (obstructive sleep apnea) Obstructive sleep apnea (adult) (pediatric) Pulmonary nodule Solitary pulmonary nodule Gastroesophageal reflux disease without esophagitis Esophageal reflux BPH with obstruction/lower urinary tract symptoms Hypertrophy of prostate with urinary obstruction and other lower urinary tract symptoms (LUTS) Multiple renal cysts Acquired hypothyroidism Unspecified hypothyroidism Elevated fasting blood sugar Impaired fasting glucose 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 Personal history of other malignant neoplasm of skin History of bladder cancer Personal history of malignant neoplasm of bladder 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 OAB (overactive bladder) Hypertonicity of bladder Bilateral leg edema Edema Bilateral carotid artery stenosis Occlusion and stenosis of carotid artery without mention of cerebral infarction Yeast infection of the skin- Primary Candidiasis of skin and nails [facility] Diagnosis Pre-operative examination- Primary Preoperative examination, unspecified Dupuytren's contracture of both hands Contracture of palmar fascia Essential hypertension Unspecified essential hypertension History of CVA (cerebrovascular accident) Transient ischemic attack (TIA), and cerebral infarction without residual deficits JESSY (obstructive sleep apnea) Obstructive sleep apnea (adult) (pediatric) Mixed hyperlipidemia Malignant neoplasm of urinary bladder, unspecified site (HCC) 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, lumbar region, with neurogenic claudication Class 2 obesity due to excess calories without serious comorbidity with body mass index (BMI) of 39.0 to 39.9 in adult Pre-operative examination- Primary Preoperative examination, unspecified SVT (supraventricular tachycardia) (HCC) Other specified cardiac dysrhythmias Leg edema, left Edema History of CVA (cerebrovascular accident) Transient ischemic attack (TIA), and cerebral infarction without residual deficits Venous insufficiency (chronic) (peripheral) Unspecified venous (peripheral) insufficiency 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 Essential hypertension Unspecified essential hypertension Mild pulmonary hypertension (HCC) Other chronic pulmonary heart diseases Mixed hyperlipidemia JESSY (obstructive sleep apnea) Obstructive sleep apnea (adult) (pediatric) Pulmonary nodule Solitary pulmonary nodule Gastroesophageal reflux disease without esophagitis Esophageal reflux BPH with obstruction/lower urinary tract symptoms Hypertrophy of prostate with urinary obstruction and other lower urinary tract symptoms (LUTS) Multiple renal cysts Acquired hypothyroidism Unspecified hypothyroidism Elevated fasting blood sugar Impaired fasting glucose 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 Personal history of other malignant neoplasm of skin History of bladder cancer Personal history of malignant neoplasm of bladder 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 OAB (overactive bladder) Hypertonicity of bladder Bilateral leg edema Edema Bilateral carotid artery stenosis Occlusion and stenosis of carotid artery without mention of cerebral infarction Gall bladder stones- Primary Calculus of gallbladder without mention of cholecystitis or obstruction [facility] Diagnosis Pre-operative examination- Primary Preoperative examination, unspecified Dupuytren's contracture of both hands Contracture of palmar fascia Essential hypertension Unspecified essential hypertension History of CVA (cerebrovascular accident) Transient ischemic attack (TIA), and cerebral infarction without residual deficits JESSY (obstructive sleep apnea) Obstructive sleep apnea (adult) (pediatric) Mixed hyperlipidemia Malignant neoplasm of urinary bladder, unspecified site (HCC) 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, lumbar region, with neurogenic claudication Class 2 obesity due to excess calories without serious comorbidity with body mass index (BMI) of 39.0 to 39.9 in adult Pre-operative examination- Primary Preoperative examination, unspecified SVT (supraventricular tachycardia) (HCC) Other specified cardiac dysrhythmias Leg edema, left Edema History of CVA (cerebrovascular accident) Transient ischemic attack (TIA), and cerebral infarction without residual deficits Venous insufficiency (chronic) (peripheral) Unspecified venous (peripheral) insufficiency 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 Essential hypertension Unspecified essential hypertension Mild pulmonary hypertension (HCC) Other chronic pulmonary heart diseases Mixed hyperlipidemia JESSY (obstructive sleep apnea) Obstructive sleep apnea (adult) (pediatric) Pulmonary nodule Solitary pulmonary nodule Gastroesophageal reflux disease without esophagitis Esophageal reflux BPH with obstruction/lower urinary tract symptoms Hypertrophy of prostate with urinary obstruction and other lower urinary tract symptoms (LUTS) Multiple renal cysts Acquired hypothyroidism Unspecified hypothyroidism Elevated fasting blood sugar Impaired fasting glucose 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 Personal history of other malignant neoplasm of skin History of bladder cancer Personal history of malignant neoplasm of bladder 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 OAB (overactive bladder) Hypertonicity of bladder Bilateral leg edema Edema Bilateral carotid artery stenosis Occlusion and stenosis of carotid artery without mention of cerebral infarction Chronic insomnia Insomnia, unspecified [facility] Diagnosis Pre-operative examination- Primary Preoperative examination, unspecified Dupuytren's contracture of both hands Contracture of palmar fascia Essential hypertension Unspecified essential hypertension History of CVA (cerebrovascular accident) Transient ischemic attack (TIA), and cerebral infarction without residual deficits JESSY (obstructive sleep apnea) Obstructive sleep apnea (adult) (pediatric) Mixed hyperlipidemia Malignant neoplasm of urinary bladder, unspecified site (HCC) 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, lumbar region, with neurogenic claudication Class 2 obesity due to excess calories without serious comorbidity with body mass index (BMI) of 39.0 to 39.9 in adult Pre-operative examination- Primary Preoperative examination, unspecified SVT (supraventricular tachycardia) (HCC) Other specified cardiac dysrhythmias Leg edema, left Edema History of CVA (cerebrovascular accident) Transient ischemic attack (TIA), and cerebral infarction without residual deficits Venous insufficiency (chronic) (peripheral) Unspecified venous (peripheral) insufficiency 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 Essential hypertension Unspecified essential hypertension Mild pulmonary hypertension (HCC) Other chronic pulmonary heart diseases Mixed hyperlipidemia JESSY (obstructive sleep apnea) Obstructive sleep apnea (adult) (pediatric) Pulmonary nodule Solitary pulmonary nodule Gastroesophageal reflux disease without esophagitis Esophageal reflux BPH with obstruction/lower urinary tract symptoms Hypertrophy of prostate with urinary obstruction and other lower urinary tract symptoms (LUTS) Multiple renal cysts Acquired hypothyroidism Unspecified hypothyroidism Elevated fasting blood sugar Impaired fasting glucose 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 Personal history of other malignant neoplasm of skin History of bladder cancer Personal history of malignant neoplasm of bladder 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 OAB (overactive bladder) Hypertonicity of bladder Bilateral leg edema Edema Bilateral carotid artery stenosis Occlusion and stenosis of carotid artery without mention of cerebral infarction Medicare annual wellness visit, subsequent- Primary Routine general medical examination at a health care facility Essential hypertension Unspecified essential hypertension Mixed hyperlipidemia Elevated fasting blood sugar Impaired fasting glucose Acquired hypothyroidism Unspecified hypothyroidism Bilateral carotid artery stenosis Occlusion and stenosis of carotid artery without mention of cerebral infarction Bilateral leg edema Edema Gastroesophageal reflux disease without esophagitis Esophageal reflux History of CVA (cerebrovascular accident) Transient ischemic attack (TIA), and cerebral infarction without residual deficits Mild pulmonary hypertension (HCC) 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 Low serum vitamin B12 Obesity, Class II, BMI 35-39.9 Obesity, unspecified Stasis dermatitis of both legs Varicose veins of lower extremities with inflammation Venous insufficiency (chronic) (peripheral) Unspecified venous (peripheral) insufficiency Advance directive discussed with patient Other specified counseling Pulmonary nodule Solitary pulmonary nodule Encounter for immunization Need for other specified prophylactic vaccination against single bacterial disease Hearing difficulty, unspecified laterality Tinnitus of both ears Unspecified tinnitus Skin cancer screening Screening for malignant neoplasm of the skin Esophageal dysphagia Dysphagia, pharyngoesophageal phase Memory difficulties [facility] Pre-operative examination- Primary Preoperative examination, unspecified Dupuytren's contracture of both hands Contracture of palmar fascia Essential hypertension Unspecified essential hypertension History of CVA (cerebrovascular accident) Transient ischemic attack (TIA), and cerebral infarction without residual deficits JESSY (obstructive sleep apnea) Obstructive sleep apnea (adult) (pediatric) Mixed hyperlipidemia Malignant neoplasm of urinary bladder, unspecified site (HCC) 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, lumbar region, with neurogenic claudication Class 2 obesity due to excess calories without serious comorbidity with body mass index (BMI) of 39.0 to 39.9 in adult Pre-operative examination- Primary Preoperative examination, unspecified SVT (supraventricular tachycardia) (HCC) Other specified cardiac dysrhythmias Leg edema, left Edema History of CVA (cerebrovascular accident) Transient ischemic attack (TIA), and cerebral infarction without residual deficits Venous insufficiency (chronic) (peripheral) Unspecified venous (peripheral) insufficiency 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 Essential hypertension Unspecified essential hypertension Mild pulmonary hypertension (HCC) Other chronic pulmonary heart diseases Mixed hyperlipidemia JESSY (obstructive sleep apnea) Obstructive sleep apnea (adult) (pediatric) Pulmonary nodule Solitary pulmonary nodule Gastroesophageal reflux disease without esophagitis Esophageal reflux BPH with obstruction/lower urinary tract symptoms Hypertrophy of prostate with urinary obstruction and other lower urinary tract symptoms (LUTS) Multiple renal cysts Acquired hypothyroidism Unspecified hypothyroidism Elevated fasting blood sugar Impaired fasting glucose 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 Personal history of other malignant neoplasm of skin History of bladder cancer Personal history of malignant neoplasm of bladder 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 OAB (overactive bladder) Hypertonicity of bladder Bilateral leg edema Edema Bilateral carotid artery stenosis Occlusion and stenosis of carotid artery without mention of cerebral infarction Bacterial pneumonia- Primary Bacterial pneumonia, unspecified Metabolic encephalopathy Hypotension, unspecified hypotension type Bradycardia, unspecified Gait difficulty Abnormality of gait 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, lumbar region, with neurogenic claudication [facility] Pre-operative examination- Primary Preoperative examination, unspecified Dupuytren's contracture of both hands Contracture of palmar fascia Essential hypertension Unspecified essential hypertension History of CVA (cerebrovascular accident) Transient ischemic attack (TIA), and cerebral infarction without residual deficits JESSY (obstructive sleep apnea) Obstructive sleep apnea (adult) (pediatric) Mixed hyperlipidemia Malignant neoplasm of urinary bladder, unspecified site (HCC) 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, lumbar region, with neurogenic claudication Class 2 obesity due to excess calories without serious comorbidity with body mass index (BMI) of 39.0 to 39.9 in adult Pre-operative examination- Primary Preoperative examination, unspecified SVT (supraventricular tachycardia) (HCC) Other specified cardiac dysrhythmias Leg edema, left Edema History of CVA (cerebrovascular accident) Transient ischemic attack (TIA), and cerebral infarction without residual deficits Venous insufficiency (chronic) (peripheral) Unspecified venous (peripheral) insufficiency 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 Essential hypertension Unspecified essential hypertension Mild pulmonary hypertension (HCC) Other chronic pulmonary heart diseases Mixed hyperlipidemia JESSY (obstructive sleep apnea) Obstructive sleep apnea (adult) (pediatric) Pulmonary nodule Solitary pulmonary nodule Gastroesophageal reflux disease without esophagitis Esophageal reflux BPH with obstruction/lower urinary tract symptoms Hypertrophy of prostate with urinary obstruction and other lower urinary tract symptoms (LUTS) Multiple renal cysts Acquired hypothyroidism Unspecified hypothyroidism Elevated fasting blood sugar Impaired fasting glucose 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 Personal history of other malignant neoplasm of skin History of bladder cancer Personal history of malignant neoplasm of bladder 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 OAB (overactive bladder) Hypertonicity of bladder Bilateral leg edema Edema Bilateral carotid artery stenosis Occlusion and stenosis of carotid artery without mention of cerebral infarction Essential hypertension- Primary Unspecified essential hypertension Bilateral leg edema Edema [facility] Diagnosis Pre-operative examination- Primary Preoperative examination, unspecified Dupuytren's contracture of both hands Contracture of palmar fascia Essential hypertension Unspecified essential hypertension History of CVA (cerebrovascular accident) Transient ischemic attack (TIA), and cerebral infarction without residual deficits JESSY (obstructive sleep apnea) Obstructive sleep apnea (adult) (pediatric) Mixed hyperlipidemia Malignant neoplasm of urinary bladder, unspecified site (HCC) 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, lumbar region, with neurogenic claudication Class 2 obesity due to excess calories without serious comorbidity with body mass index (BMI) of 39.0 to 39.9 in adult Pre-operative examination- Primary Preoperative examination, unspecified SVT (supraventricular tachycardia) (HCC) Other specified cardiac dysrhythmias Leg edema, left Edema History of CVA (cerebrovascular accident) Transient ischemic attack (TIA), and cerebral infarction without residual deficits Venous insufficiency (chronic) (peripheral) Unspecified venous (peripheral) insufficiency 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 Essential hypertension Unspecified essential hypertension Mild pulmonary hypertension (HCC) Other chronic pulmonary heart diseases Mixed hyperlipidemia JESSY (obstructive sleep apnea) Obstructive sleep apnea (adult) (pediatric) Pulmonary nodule Solitary pulmonary nodule Gastroesophageal reflux disease without esophagitis Esophageal reflux BPH with obstruction/lower urinary tract symptoms Hypertrophy of prostate with urinary obstruction and other lower urinary tract symptoms (LUTS) Multiple renal cysts Acquired hypothyroidism Unspecified hypothyroidism Elevated fasting blood sugar Impaired fasting glucose 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 Personal history of other malignant neoplasm of skin History of bladder cancer Personal history of malignant neoplasm of bladder 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 OAB (overactive bladder) Hypertonicity of bladder Bilateral leg edema Edema Bilateral carotid artery stenosis Occlusion and stenosis of carotid artery without mention of cerebral infarction Injury of left knee, subsequent encounter- Primary Localized swelling of left lower leg [facility] Pre-operative examination- Primary Preoperative examination, unspecified Dupuytren's contracture of both hands Contracture of palmar fascia Essential hypertension Unspecified essential hypertension History of CVA (cerebrovascular accident) Transient ischemic attack (TIA), and cerebral infarction without residual deficits JESSY (obstructive sleep apnea) Obstructive sleep apnea (adult) (pediatric) Mixed hyperlipidemia Malignant neoplasm of urinary bladder, unspecified site (HCC) 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, lumbar region, with neurogenic claudication Class 2 obesity due to excess calories without serious comorbidity with body mass index (BMI) of 39.0 to 39.9 in adult Pre-operative examination- Primary Preoperative examination, unspecified SVT (supraventricular tachycardia) (HCC) Other specified cardiac dysrhythmias Leg edema, left Edema History of CVA (cerebrovascular accident) Transient ischemic attack (TIA), and cerebral infarction without residual deficits Venous insufficiency (chronic) (peripheral) Unspecified venous (peripheral) insufficiency 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 Essential hypertension Unspecified essential hypertension Mild pulmonary hypertension (HCC) Other chronic pulmonary heart diseases Mixed hyperlipidemia JESSY (obstructive sleep apnea) Obstructive sleep apnea (adult) (pediatric) Pulmonary nodule Solitary pulmonary nodule Gastroesophageal reflux disease without esophagitis Esophageal reflux BPH with obstruction/lower urinary tract symptoms Hypertrophy of prostate with urinary obstruction and other lower urinary tract symptoms (LUTS) Multiple renal cysts Acquired hypothyroidism Unspecified hypothyroidism Elevated fasting blood sugar Impaired fasting glucose 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 Personal history of other malignant neoplasm of skin History of bladder cancer Personal history of malignant neoplasm of bladder 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 OAB (overactive bladder) Hypertonicity of bladder Bilateral leg edema Edema Bilateral carotid artery stenosis Occlusion and stenosis of carotid artery without mention of cerebral infarction Injury of left knee, subsequent encounter [facility] Diagnosis Pre-operative examination- Primary Preoperative examination, unspecified Dupuytren's contracture of both hands Contracture of palmar fascia Essential hypertension Unspecified essential hypertension History of CVA (cerebrovascular accident) Transient ischemic attack (TIA), and cerebral infarction without residual deficits JESSY (obstructive sleep apnea) Obstructive sleep apnea (adult) (pediatric) Mixed hyperlipidemia Malignant neoplasm of urinary bladder, unspecified site (HCC) 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, lumbar region, with neurogenic claudication Class 2 obesity due to excess calories without serious comorbidity with body mass index (BMI) of 39.0 to 39.9 in adult Pre-operative examination- Primary Preoperative examination, unspecified SVT (supraventricular tachycardia) (HCC) Other specified cardiac dysrhythmias Leg edema, left Edema History of CVA (cerebrovascular accident) Transient ischemic attack (TIA), and cerebral infarction without residual deficits Venous insufficiency (chronic) (peripheral) Unspecified venous (peripheral) insufficiency 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 Essential hypertension Unspecified essential hypertension Mild pulmonary hypertension (HCC) Other chronic pulmonary heart diseases Mixed hyperlipidemia JESSY (obstructive sleep apnea) Obstructive sleep apnea (adult) (pediatric) Pulmonary nodule Solitary pulmonary nodule Gastroesophageal reflux disease without esophagitis Esophageal reflux BPH with obstruction/lower urinary tract symptoms Hypertrophy of prostate with urinary obstruction and other lower urinary tract symptoms (LUTS) Multiple renal cysts Acquired hypothyroidism Unspecified hypothyroidism Elevated fasting blood sugar Impaired fasting glucose 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 Personal history of other malignant neoplasm of skin History of bladder cancer Personal history of malignant neoplasm of bladder 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 OAB (overactive bladder) Hypertonicity of bladder Bilateral leg edema Edema Bilateral carotid artery stenosis Occlusion and stenosis of carotid artery without mention of cerebral infarction Localized swelling of left lower leg [facility] Pre-operative examination- Primary Preoperative examination, unspecified Dupuytren's contracture of both hands Contracture of palmar fascia Essential hypertension Unspecified essential hypertension History of CVA (cerebrovascular accident) Transient ischemic attack (TIA), and cerebral infarction without residual deficits JESSY (obstructive sleep apnea) Obstructive sleep apnea (adult) (pediatric) Mixed hyperlipidemia Malignant neoplasm of urinary bladder, unspecified site (HCC) 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, lumbar region, with neurogenic claudication Class 2 obesity due to excess calories without serious comorbidity with body mass index (BMI) of 39.0 to 39.9 in adult Pre-operative examination- Primary Preoperative examination, unspecified SVT (supraventricular tachycardia) (HCC) Other specified cardiac dysrhythmias Leg edema, left Edema History of CVA (cerebrovascular accident) Transient ischemic attack (TIA), and cerebral infarction without residual deficits Venous insufficiency (chronic) (peripheral) Unspecified venous (peripheral) insufficiency 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 Essential hypertension Unspecified essential hypertension Mild pulmonary hypertension (HCC) Other chronic pulmonary heart diseases Mixed hyperlipidemia JESSY (obstructive sleep apnea) Obstructive sleep apnea (adult) (pediatric) Pulmonary nodule Solitary pulmonary nodule Gastroesophageal reflux disease without esophagitis Esophageal reflux BPH with obstruction/lower urinary tract symptoms Hypertrophy of prostate with urinary obstruction and other lower urinary tract symptoms (LUTS) Multiple renal cysts Acquired hypothyroidism Unspecified hypothyroidism Elevated fasting blood sugar Impaired fasting glucose 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 Personal history of other malignant neoplasm of skin History of bladder cancer Personal history of malignant neoplasm of bladder 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 OAB (overactive bladder) Hypertonicity of bladder Bilateral leg edema Edema Bilateral carotid artery stenosis Occlusion and stenosis of carotid artery without mention of cerebral infarction Leg swelling- Primary Swelling of limb Foot pain, left Pain in limb Rash Rash and other nonspecific skin eruption Cellulitis of skin Cellulitis and abscess of unspecified site Foot pain, left Pain in limb [facility] Diagnosis Pre-operative examination- Primary Preoperative examination, unspecified Dupuytren's contracture of both hands Contracture of palmar fascia Essential hypertension Unspecified essential hypertension History of CVA (cerebrovascular accident) Transient ischemic attack (TIA), and cerebral infarction without residual deficits JESSY (obstructive sleep apnea) Obstructive sleep apnea (adult) (pediatric) Mixed hyperlipidemia Malignant neoplasm of urinary bladder, unspecified site (HCC) 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, lumbar region, with neurogenic claudication Class 2 obesity due to excess calories without serious comorbidity with body mass index (BMI) of 39.0 to 39.9 in adult Pre-operative examination- Primary Preoperative examination, unspecified SVT (supraventricular tachycardia) (HCC) Other specified cardiac dysrhythmias Leg edema, left Edema History of CVA (cerebrovascular accident) Transient ischemic attack (TIA), and cerebral infarction without residual deficits Venous insufficiency (chronic) (peripheral) Unspecified venous (peripheral) insufficiency 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 Essential hypertension Unspecified essential hypertension Mild pulmonary hypertension (HCC) Other chronic pulmonary heart diseases Mixed hyperlipidemia JESSY (obstructive sleep apnea) Obstructive sleep apnea (adult) (pediatric) Pulmonary nodule Solitary pulmonary nodule Gastroesophageal reflux disease without esophagitis Esophageal reflux BPH with obstruction/lower urinary tract symptoms Hypertrophy of prostate with urinary obstruction and other lower urinary tract symptoms (LUTS) Multiple renal cysts Acquired hypothyroidism Unspecified hypothyroidism Elevated fasting blood sugar Impaired fasting glucose 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 Personal history of other malignant neoplasm of skin History of bladder cancer Personal history of malignant neoplasm of bladder 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 OAB (overactive bladder) Hypertonicity of bladder Bilateral leg edema Edema Bilateral carotid artery stenosis Occlusion and stenosis of carotid artery without mention of cerebral infarction Foot pain, left Pain in limb [facility] Diagnosis Pre-operative examination- Primary Preoperative examination, unspecified Dupuytren's contracture of both hands Contracture of palmar fascia Essential hypertension Unspecified essential hypertension History of CVA (cerebrovascular accident) Transient ischemic attack (TIA), and cerebral infarction without residual deficits JESSY (obstructive sleep apnea) Obstructive sleep apnea (adult) (pediatric) Mixed hyperlipidemia Malignant neoplasm of urinary bladder, unspecified site (HCC) 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, lumbar region, with neurogenic claudication Class 2 obesity due to excess calories without serious comorbidity with body mass index (BMI) of 39.0 to 39.9 in adult Pre-operative examination- Primary Preoperative examination, unspecified SVT (supraventricular tachycardia) (HCC) Other specified cardiac dysrhythmias Leg edema, left Edema History of CVA (cerebrovascular accident) Transient ischemic attack (TIA), and cerebral infarction without residual deficits Venous insufficiency (chronic) (peripheral) Unspecified venous (peripheral) insufficiency 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 Essential hypertension Unspecified essential hypertension Mild pulmonary hypertension (HCC) Other chronic pulmonary heart diseases Mixed hyperlipidemia JESSY (obstructive sleep apnea) Obstructive sleep apnea (adult) (pediatric) Pulmonary nodule Solitary pulmonary nodule Gastroesophageal reflux disease without esophagitis Esophageal reflux BPH with obstruction/lower urinary tract symptoms Hypertrophy of prostate with urinary obstruction and other lower urinary tract symptoms (LUTS) Multiple renal cysts Acquired hypothyroidism Unspecified hypothyroidism Elevated fasting blood sugar Impaired fasting glucose 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 Personal history of other malignant neoplasm of skin History of bladder cancer Personal history of malignant neoplasm of bladder 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 OAB (overactive bladder) Hypertonicity of bladder Bilateral leg edema Edema Bilateral carotid artery stenosis Occlusion and stenosis of carotid artery without mention of cerebral infarction Venous insufficiency (chronic) (peripheral)- Primary Unspecified venous (peripheral) insufficiency Bradycardia Other specified cardiac dysrhythmias Rash Rash and other nonspecific skin eruption Cellulitis of skin Cellulitis and abscess of unspecified site [facility] Pre-operative examination- Primary Preoperative examination, unspecified Dupuytren's contracture of both hands Contracture of palmar fascia Essential hypertension Unspecified essential hypertension History of CVA (cerebrovascular accident) Transient ischemic attack (TIA), and cerebral infarction without residual deficits JESSY (obstructive sleep apnea) Obstructive sleep apnea (adult) (pediatric) Mixed hyperlipidemia Malignant neoplasm of urinary bladder, unspecified site (HCC) 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, lumbar region, with neurogenic claudication Class 2 obesity due to excess calories without serious comorbidity with body mass index (BMI) of 39.0 to 39.9 in adult Pre-operative examination- Primary Preoperative examination, unspecified SVT (supraventricular tachycardia) (HCC) Other specified cardiac dysrhythmias Leg edema, left Edema History of CVA (cerebrovascular accident) Transient ischemic attack (TIA), and cerebral infarction without residual deficits Venous insufficiency (chronic) (peripheral) Unspecified venous (peripheral) insufficiency 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 Essential hypertension Unspecified essential hypertension Mild pulmonary hypertension (HCC) Other chronic pulmonary heart diseases Mixed hyperlipidemia JESSY (obstructive sleep apnea) Obstructive sleep apnea (adult) (pediatric) Pulmonary nodule Solitary pulmonary nodule Gastroesophageal reflux disease without esophagitis Esophageal reflux BPH with obstruction/lower urinary tract symptoms Hypertrophy of prostate with urinary obstruction and other lower urinary tract symptoms (LUTS) Multiple renal cysts Acquired hypothyroidism Unspecified hypothyroidism Elevated fasting blood sugar Impaired fasting glucose 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 Personal history of other malignant neoplasm of skin History of bladder cancer Personal history of malignant neoplasm of bladder 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 OAB (overactive bladder) Hypertonicity of bladder Bilateral leg edema Edema Bilateral carotid artery stenosis Occlusion and stenosis of carotid artery without mention of cerebral infarction Urgency of urination BPH associated with nocturia Hypertrophy of prostate with urinary obstruction and other lower urinary tract symptoms (LUTS) [facility] Pre-operative examination- Primary Preoperative examination, unspecified Dupuytren's contracture of both hands Contracture of palmar fascia Essential hypertension Unspecified essential hypertension History of CVA (cerebrovascular accident) Transient ischemic attack (TIA), and cerebral infarction without residual deficits JESSY (obstructive sleep apnea) Obstructive sleep apnea (adult) (pediatric) Mixed hyperlipidemia Malignant neoplasm of urinary bladder, unspecified site (HCC) 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, lumbar region, with neurogenic claudication Class 2 obesity due to excess calories without serious comorbidity with body mass index (BMI) of 39.0 to 39.9 in adult Pre-operative examination- Primary Preoperative examination, unspecified SVT (supraventricular tachycardia) (HCC) Other specified cardiac dysrhythmias Leg edema, left Edema History of CVA (cerebrovascular accident) Transient ischemic attack (TIA), and cerebral infarction without residual deficits Venous insufficiency (chronic) (peripheral) Unspecified venous (peripheral) insufficiency 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 Essential hypertension Unspecified essential hypertension Mild pulmonary hypertension (HCC) Other chronic pulmonary heart diseases Mixed hyperlipidemia JESSY (obstructive sleep apnea) Obstructive sleep apnea (adult) (pediatric) Pulmonary nodule Solitary pulmonary nodule Gastroesophageal reflux disease without esophagitis Esophageal reflux BPH with obstruction/lower urinary tract symptoms Hypertrophy of prostate with urinary obstruction and other lower urinary tract symptoms (LUTS) Multiple renal cysts Acquired hypothyroidism Unspecified hypothyroidism Elevated fasting blood sugar Impaired fasting glucose 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 Personal history of other malignant neoplasm of skin History of bladder cancer Personal history of malignant neoplasm of bladder 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 OAB (overactive bladder) Hypertonicity of bladder Bilateral leg edema Edema Bilateral carotid artery stenosis Occlusion and stenosis of carotid artery without mention of cerebral infarction Bradycardia- Primary Other specified cardiac dysrhythmias Atrial flutter, unspecified type (HCC) Balance problem Other symptoms involving nervous and musculoskeletal systems Gait difficulty Abnormality of gait Tinea corporis Dermatophytosis of the body Bilateral leg edema Edema [facility] Pre-operative examination- Primary Preoperative examination, unspecified Dupuytren's contracture of both hands Contracture of palmar fascia Essential hypertension Unspecified essential hypertension History of CVA (cerebrovascular accident) Transient ischemic attack (TIA), and cerebral infarction without residual deficits JESSY (obstructive sleep apnea) Obstructive sleep apnea (adult) (pediatric) Mixed hyperlipidemia Malignant neoplasm of urinary bladder, unspecified site (HCC) 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, lumbar region, with neurogenic claudication Class 2 obesity due to excess calories without serious comorbidity with body mass index (BMI) of 39.0 to 39.9 in adult Pre-operative examination- Primary Preoperative examination, unspecified SVT (supraventricular tachycardia) (HCC) Other specified cardiac dysrhythmias Leg edema, left Edema History of CVA (cerebrovascular accident) Transient ischemic attack (TIA), and cerebral infarction without residual deficits Venous insufficiency (chronic) (peripheral) Unspecified venous (peripheral) insufficiency 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 Essential hypertension Unspecified essential hypertension Mild pulmonary hypertension (HCC) Other chronic pulmonary heart diseases Mixed hyperlipidemia JESSY (obstructive sleep apnea) Obstructive sleep apnea (adult) (pediatric) Pulmonary nodule Solitary pulmonary nodule Gastroesophageal reflux disease without esophagitis Esophageal reflux BPH with obstruction/lower urinary tract symptoms Hypertrophy of prostate with urinary obstruction and other lower urinary tract symptoms (LUTS) Multiple renal cysts Acquired hypothyroidism Unspecified hypothyroidism Elevated fasting blood sugar Impaired fasting glucose 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 Personal history of other malignant neoplasm of skin History of bladder cancer Personal history of malignant neoplasm of bladder 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 OAB (overactive bladder) Hypertonicity of bladder Bilateral leg edema Edema Bilateral carotid artery stenosis Occlusion and stenosis of carotid artery without mention of cerebral infarction Acquired hypothyroidism- Primary Unspecified hypothyroidism Hypernatremia Hyperosmolality and/or hypernatremia [facility] Pre-operative examination- Primary Preoperative examination, unspecified Dupuytren's contracture of both hands Contracture of palmar fascia Essential hypertension Unspecified essential hypertension History of CVA (cerebrovascular accident) Transient ischemic attack (TIA), and cerebral infarction without residual deficits JESSY (obstructive sleep apnea) Obstructive sleep apnea (adult) (pediatric) Mixed hyperlipidemia Malignant neoplasm of urinary bladder, unspecified site (HCC) 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, lumbar region, with neurogenic claudication Class 2 obesity due to excess calories without serious comorbidity with body mass index (BMI) of 39.0 to 39.9 in adult Pre-operative examination- Primary Preoperative examination, unspecified SVT (supraventricular tachycardia) (HCC) Other specified cardiac dysrhythmias Leg edema, left Edema History of CVA (cerebrovascular accident) Transient ischemic attack (TIA), and cerebral infarction without residual deficits Venous insufficiency (chronic) (peripheral) Unspecified venous (peripheral) insufficiency 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 Essential hypertension Unspecified essential hypertension Mild pulmonary hypertension (HCC) Other chronic pulmonary heart diseases Mixed hyperlipidemia JESSY (obstructive sleep apnea) Obstructive sleep apnea (adult) (pediatric) Pulmonary nodule Solitary pulmonary nodule Gastroesophageal reflux disease without esophagitis Esophageal reflux BPH with obstruction/lower urinary tract symptoms Hypertrophy of prostate with urinary obstruction and other lower urinary tract symptoms (LUTS) Multiple renal cysts Acquired hypothyroidism Unspecified hypothyroidism Elevated fasting blood sugar Impaired fasting glucose 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 Personal history of other malignant neoplasm of skin History of bladder cancer Personal history of malignant neoplasm of bladder 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 OAB (overactive bladder) Hypertonicity of bladder Bilateral leg edema Edema Bilateral carotid artery stenosis Occlusion and stenosis of carotid artery without mention of cerebral infarction Sinoatrial node dysfunction (HCC)- Primary Sinoatrial node dysfunction [facility] Diagnosis Pre-operative examination- Primary Preoperative examination, unspecified Dupuytren's contracture of both hands Contracture of palmar fascia Essential hypertension Unspecified essential hypertension History of CVA (cerebrovascular accident) Transient ischemic attack (TIA), and cerebral infarction without residual deficits JESSY (obstructive sleep apnea) Obstructive sleep apnea (adult) (pediatric) Mixed hyperlipidemia Malignant neoplasm of urinary bladder, unspecified site (HCC) 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, lumbar region, with neurogenic claudication Class 2 obesity due to excess calories without serious comorbidity with body mass index (BMI) of 39.0 to 39.9 in adult Pre-operative examination- Primary Preoperative examination, unspecified SVT (supraventricular tachycardia) (HCC) Other specified cardiac dysrhythmias Leg edema, left Edema History of CVA (cerebrovascular accident) Transient ischemic attack (TIA), and cerebral infarction without residual deficits Venous insufficiency (chronic) (peripheral) Unspecified venous (peripheral) insufficiency 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 Essential hypertension Unspecified essential hypertension Mild pulmonary hypertension (HCC) Other chronic pulmonary heart diseases Mixed hyperlipidemia JESSY (obstructive sleep apnea) Obstructive sleep apnea (adult) (pediatric) Pulmonary nodule Solitary pulmonary nodule Gastroesophageal reflux disease without esophagitis Esophageal reflux BPH with obstruction/lower urinary tract symptoms Hypertrophy of prostate with urinary obstruction and other lower urinary tract symptoms (LUTS) Multiple renal cysts Acquired hypothyroidism Unspecified hypothyroidism Elevated fasting blood sugar Impaired fasting glucose 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 Personal history of other malignant neoplasm of skin History of bladder cancer Personal history of malignant neoplasm of bladder 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 OAB (overactive bladder) Hypertonicity of bladder Bilateral leg edema Edema Bilateral carotid artery stenosis Occlusion and stenosis of carotid artery without mention of cerebral infarction Urgency of urination BPH associated with nocturia Hypertrophy of prostate with urinary obstruction and other lower urinary tract symptoms (LUTS) [facility] Diagnosis Pre-operative examination- Primary Preoperative examination, unspecified Dupuytren's contracture of both hands Contracture of palmar fascia Essential hypertension Unspecified essential hypertension History of CVA (cerebrovascular accident) Transient ischemic attack (TIA), and cerebral infarction without residual deficits JESSY (obstructive sleep apnea) Obstructive sleep apnea (adult) (pediatric) Mixed hyperlipidemia Malignant neoplasm of urinary bladder, unspecified site (HCC) 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, lumbar region, with neurogenic claudication Class 2 obesity due to excess calories without serious comorbidity with body mass index (BMI) of 39.0 to 39.9 in adult Pre-operative examination- Primary Preoperative examination, unspecified SVT (supraventricular tachycardia) (HCC) Other specified cardiac dysrhythmias Leg edema, left Edema History of CVA (cerebrovascular accident) Transient ischemic attack (TIA), and cerebral infarction without residual deficits Venous insufficiency (chronic) (peripheral) Unspecified venous (peripheral) insufficiency 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 Essential hypertension Unspecified essential hypertension Mild pulmonary hypertension (HCC) Other chronic pulmonary heart diseases Mixed hyperlipidemia JESSY (obstructive sleep apnea) Obstructive sleep apnea (adult) (pediatric) Pulmonary nodule Solitary pulmonary nodule Gastroesophageal reflux disease without esophagitis Esophageal reflux BPH with obstruction/lower urinary tract symptoms Hypertrophy of prostate with urinary obstruction and other lower urinary tract symptoms (LUTS) Multiple renal cysts Acquired hypothyroidism Unspecified hypothyroidism Elevated fasting blood sugar Impaired fasting glucose 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 Personal history of other malignant neoplasm of skin History of bladder cancer Personal history of malignant neoplasm of bladder 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 OAB (overactive bladder) Hypertonicity of bladder Bilateral leg edema Edema Bilateral carotid artery stenosis Occlusion and stenosis of carotid artery without mention of cerebral infarction Essential hypertension- Primary Unspecified essential hypertension Acquired hypothyroidism Unspecified hypothyroidism Mixed hyperlipidemia Atrial flutter, unspecified type (HCC) Bradycardia Other specified cardiac dysrhythmias Mild pulmonary hypertension (HCC) Other chronic pulmonary heart diseases Pacemaker Cardiac pacemaker in situ Hypokalemia Hypopotassemia Chronic insomnia Insomnia, unspecified Need for vaccination Need for prophylactic vaccination and inoculation against unspecified single disease Lung nodules Other nonspecific abnormal finding of lung field Pulmonary nodule Solitary pulmonary nodule Elevated fasting blood sugar Impaired fasting glucose Low serum vitamin B12 OAB (overactive bladder) Hypertonicity of 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 and other lower urinary tract symptoms (LUTS) Peripheral edema Edema [facility] Diagnosis Pre-operative examination- Primary Preoperative examination, unspecified Dupuytren's contracture of both hands Contracture of palmar fascia Essential hypertension Unspecified essential hypertension History of CVA (cerebrovascular accident) Transient ischemic attack (TIA), and cerebral infarction without residual deficits JESSY (obstructive sleep apnea) Obstructive sleep apnea (adult) (pediatric) Mixed hyperlipidemia Malignant neoplasm of urinary bladder, unspecified site (HCC) 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, lumbar region, with neurogenic claudication Class 2 obesity due to excess calories without serious comorbidity with body mass index (BMI) of 39.0 to 39.9 in adult Pre-operative examination- Primary Preoperative examination, unspecified SVT (supraventricular tachycardia) (HCC) Other specified cardiac dysrhythmias Leg edema, left Edema History of CVA (cerebrovascular accident) Transient ischemic attack (TIA), and cerebral infarction without residual deficits Venous insufficiency (chronic) (peripheral) Unspecified venous (peripheral) insufficiency 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 Essential hypertension Unspecified essential hypertension Mild pulmonary hypertension (HCC) Other chronic pulmonary heart diseases Mixed hyperlipidemia JESSY (obstructive sleep apnea) Obstructive sleep apnea (adult) (pediatric) Pulmonary nodule Solitary pulmonary nodule Gastroesophageal reflux disease without esophagitis Esophageal reflux BPH with obstruction/lower urinary tract symptoms Hypertrophy of prostate with urinary obstruction and other lower urinary tract symptoms (LUTS) Multiple renal cysts Acquired hypothyroidism Unspecified hypothyroidism Elevated fasting blood sugar Impaired fasting glucose 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 Personal history of other malignant neoplasm of skin History of bladder cancer Personal history of malignant neoplasm of bladder 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 OAB (overactive bladder) Hypertonicity of bladder Bilateral leg edema Edema Bilateral carotid artery stenosis Occlusion and stenosis of carotid artery without mention of cerebral infarction SOB (shortness of breath)- Primary Shortness of breath HDZ (dyspnea on exertion) Other dyspnea and respiratory abnormality Persistent cough Cough Memory difficulties Memory loss Bilateral leg edema Edema History of bladder cancer Personal history of malignant neoplasm of 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 and other lower urinary tract symptoms (LUTS) OAB (overactive bladder) Hypertonicity of bladder Gastroesophageal reflux disease without esophagitis Esophageal reflux Hypotension due to drugs Other iatrogenic hypotension SOB (shortness of breath) Shortness of breath HDZ (dyspnea on exertion) Other dyspnea and respiratory abnormality Persistent cough Cough [facility] Diagnosis Pre-operative examination- Primary Preoperative examination, unspecified Dupuytren's contracture of both hands Contracture of palmar fascia Essential hypertension Unspecified essential hypertension History of CVA (cerebrovascular accident) Transient ischemic attack (TIA), and cerebral infarction without residual deficits JESSY (obstructive sleep apnea) Obstructive sleep apnea (adult) (pediatric) Mixed hyperlipidemia Malignant neoplasm of urinary bladder, unspecified site (HCC) 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, lumbar region, with neurogenic claudication Class 2 obesity due to excess calories without serious comorbidity with body mass index (BMI) of 39.0 to 39.9 in adult Pre-operative examination- Primary Preoperative examination, unspecified SVT (supraventricular tachycardia) (HCC) Other specified cardiac dysrhythmias Leg edema, left Edema History of CVA (cerebrovascular accident) Transient ischemic attack (TIA), and cerebral infarction without residual deficits Venous insufficiency (chronic) (peripheral) Unspecified venous (peripheral) insufficiency 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 Essential hypertension Unspecified essential hypertension Mild pulmonary hypertension (HCC) Other chronic pulmonary heart diseases Mixed hyperlipidemia JESSY (obstructive sleep apnea) Obstructive sleep apnea (adult) (pediatric) Pulmonary nodule Solitary pulmonary nodule Gastroesophageal reflux disease without esophagitis Esophageal reflux BPH with obstruction/lower urinary tract symptoms Hypertrophy of prostate with urinary obstruction and other lower urinary tract symptoms (LUTS) Multiple renal cysts Acquired hypothyroidism Unspecified hypothyroidism Elevated fasting blood sugar Impaired fasting glucose 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 Personal history of other malignant neoplasm of skin History of bladder cancer Personal history of malignant neoplasm of bladder 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 OAB (overactive bladder) Hypertonicity of bladder Bilateral leg edema Edema Bilateral carotid artery stenosis Occlusion and stenosis of carotid artery without mention of cerebral infarction SOB (shortness of breath) Shortness of breath HDZ (dyspnea on exertion) Other dyspnea and respiratory abnormality Persistent cough Cough [facility] Diagnosis Pre-operative examination- Primary Preoperative examination, unspecified Dupuytren's contracture of both hands Contracture of palmar fascia Essential hypertension Unspecified essential hypertension History of CVA (cerebrovascular accident) Transient ischemic attack (TIA), and cerebral infarction without residual deficits JESSY (obstructive sleep apnea) Obstructive sleep apnea (adult) (pediatric) Mixed hyperlipidemia Malignant neoplasm of urinary bladder, unspecified site (HCC) 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, lumbar region, with neurogenic claudication Class 2 obesity due to excess calories without serious comorbidity with body mass index (BMI) of 39.0 to 39.9 in adult Pre-operative examination- Primary Preoperative examination, unspecified SVT (supraventricular tachycardia) (HCC) Other specified cardiac dysrhythmias Leg edema, left Edema History of CVA (cerebrovascular accident) Transient ischemic attack (TIA), and cerebral infarction without residual deficits Venous insufficiency (chronic) (peripheral) Unspecified venous (peripheral) insufficiency 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 Essential hypertension Unspecified essential hypertension Mild pulmonary hypertension (HCC) Other chronic pulmonary heart diseases Mixed hyperlipidemia JESSY (obstructive sleep apnea) Obstructive sleep apnea (adult) (pediatric) Pulmonary nodule Solitary pulmonary nodule Gastroesophageal reflux disease without esophagitis Esophageal reflux BPH with obstruction/lower urinary tract symptoms Hypertrophy of prostate with urinary obstruction and other lower urinary tract symptoms (LUTS) Multiple renal cysts Acquired hypothyroidism Unspecified hypothyroidism Elevated fasting blood sugar Impaired fasting glucose 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 Personal history of other malignant neoplasm of skin History of bladder cancer Personal history of malignant neoplasm of bladder 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 OAB (overactive bladder) Hypertonicity of bladder Bilateral leg edema Edema Bilateral carotid artery stenosis Occlusion and stenosis of carotid artery without mention of cerebral infarction Wheezing- Primary [facility] Diagnosis Pre-operative examination- Primary Preoperative examination, unspecified Dupuytren's contracture of both hands Contracture of palmar fascia Essential hypertension Unspecified essential hypertension History of CVA (cerebrovascular accident) Transient ischemic attack (TIA), and cerebral infarction without residual deficits JESSY (obstructive sleep apnea) Obstructive sleep apnea (adult) (pediatric) Mixed hyperlipidemia Malignant neoplasm of urinary bladder, unspecified site (HCC) 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, lumbar region, with neurogenic claudication Class 2 obesity due to excess calories without serious comorbidity with body mass index (BMI) of 39.0 to 39.9 in adult Pre-operative examination- Primary Preoperative examination, unspecified SVT (supraventricular tachycardia) (HCC) Other specified cardiac dysrhythmias Leg edema, left Edema History of CVA (cerebrovascular accident) Transient ischemic attack (TIA), and cerebral infarction without residual deficits Venous insufficiency (chronic) (peripheral) Unspecified venous (peripheral) insufficiency 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 Essential hypertension Unspecified essential hypertension Mild pulmonary hypertension (HCC) Other chronic pulmonary heart diseases Mixed hyperlipidemia JESSY (obstructive sleep apnea) Obstructive sleep apnea (adult) (pediatric) Pulmonary nodule Solitary pulmonary nodule Gastroesophageal reflux disease without esophagitis Esophageal reflux BPH with obstruction/lower urinary tract symptoms Hypertrophy of prostate with urinary obstruction and other lower urinary tract symptoms (LUTS) Multiple renal cysts Acquired hypothyroidism Unspecified hypothyroidism Elevated fasting blood sugar Impaired fasting glucose 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 Personal history of other malignant neoplasm of skin History of bladder cancer Personal history of malignant neoplasm of bladder 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 OAB (overactive bladder) Hypertonicity of bladder Bilateral leg edema Edema Bilateral carotid artery stenosis Occlusion and stenosis of carotid artery without mention of cerebral infarction Chronic diastolic congestive heart failure (HCC)- Primary Chronic diastolic heart failure Hypoxia Hypoxemia Essential hypertension Unspecified essential hypertension documented in this encounter [facility] Discharge instructions Additional Instructions Please return for any worsening of symptoms follow-up with your PCP.[facility] Work Phone: Reason for referral (narrative)* Diagnostic Procedure Only (Routine) - Closed Specialty Diagnoses / Procedures Referred By Chris jacques Referred To Contact MR IMAGING Diagnoses Transient global amnesia Confusion History of CVA (cerebrovascular accident) Procedures MRI BRAIN WO IVCON MRI BRAIN BRAIN STEM W/O CONTRAST MATERIAL Phoebe Muro PA-C [id number] [place] [address] Mr Imaging Referral ID Status Reason Start Date Expiration Date Visits Re quested Visits Authorized [id number] Closed 12/17/2021 01/16/2022 1 1 [facility] [place] for referral (narrative)* Outpatient Procedure (Routine) - Authorized Specialty Diagnoses / Procedures Referred By Chris jacques [facility] Diagnoses Transient global amnesia History of CVA (cerebrovascular accident) Confusion Procedures US CAROTID ARTERIES TIMOTHY VAS LAB DUPLEX SCAN EXTRACRANIAL ART COMPL BI STUDY Phoebe Muro PA-C [id number] [place] [address] [facility] [address] [place] [address] Referral ID Status Reason Start Date Expiration Date Visits Requested Visits Authorized [id number] Authorized Auto-Generat ed Referral 12/18/2021 12/18/2022 1 1 * Outpatient Procedure (Routine) - Pending Review Specialty Diagnoses / Procedures Referred By Chris jacques Referred To [facility] Diagnoses Transient global amnesia History of CVA (cerebrovascular accident) Confusion Procedures ECHO ECHO TTHRC R-T 2D W/WOM-MODE COMPL SPEC&COLR D Phoebe Muro PA-C [address] [place] [address] [facility] [address] [place] [address] Referral ID Status Reason Start Date Expiration Date Visits Requested Visits Authorized [id number] Pending Review Auto-Generat ed Referral 12/18/2021 12/18/2022 1 1 [facility] [place] for referral (narrative)* Outpatient Procedure (Routine) - Closed Specialty Diagnoses / Procedures Referred By Contac t Referred To Contact [facility] Diagnoses SVT (supraventricular tachycardia) (HCC) Procedures ECG COMPLETE ECG ROUTINE ECG W/LEAST 12 LDS W/I&R Nikko Jose MD [address] [place] [address] [facility] [place] [address] [place] [address] Referral ID Status Reason Start Date Expiration Date V isits Requested Visits Authorized [id number] Closed Auto-Generate d Referral 06/13/2022 06/13/2023 1 1 [facility] [place] for referral (narrative)* Diagnostic Procedure Only (Urgent) - Closed Specialty Diagnoses / Procedures Referred By Contac t Referred To Contact XR IMAGING Diagnoses Foot injury, left, initial encounter Procedures XR FOOT GENERAL 3V AP/LAT/OBL LEFT RADEX FOOT COMPLETE MINIMUM 3 VIEWS Khoa Womack APRN.CNP [address] [place] [address] [place] [address] Referral ID Status Reason Start Date Expiration Date V isits Requested Visits Authorized [id number] Closed Auto-Generate d Referral 03/13/2023 04/11/2024 1 1 [facility] [place] for referral (narrative)* Diagnostic Procedure Only (Routine) - Authorized Specialty Diagnoses / Procedures Referred By Contac t Referred To Contact MOLECULAR [facility] FUNCTIONAL IMAGING Diagnoses Right upper quadrant abdominal pain Gall bladder stones Calculus of gallbladder without cholecystitis without obstruction Procedures NM HEPATOBILIARY W EF AND/OR RX HEPATOBIL SYST IMAG INC GB W/PHARMA GWENDOLYNJ Jose Fam MD [address] [place] [address] Molecular [facility] Functional Imaging [address] [place] [address] Referral ID Status Reason Start Date Expiration Date Visits Requested Visits Authorized [id number] Authorized Auto-Generat ed Referral 01/07/2024 02/05/2025 1 1 * Consult, Test, Treat (Routine) - Authorized Specialty Diagnoses / Procedures [facility] Referred To Contact General Surgery Diagnoses Right upper quadrant abdominal pain Gall bladder stones Procedures CONSULT TO GENERAL SURGERY OFFICE/OUTPATIENT [facility] 60 MINUTES Jose Fam MD [address] [place] [id number] Referral ID Status Reason Start Date Expiration Date Visits Requested Visits Authorized [id number] Authorized PCP Requested Referral 01/07/2024 01/06/2025 1 1 [facility] for referral (narrative)* Diagnostic Procedure Only (Routine) - Closed Specialty Diagnoses / Procedures Ref[facility] Referred To Contact MOLECULAR & FUNCTIONAL IMAGING Diagnoses Right upper quadrant abdominal pain Gall bladder stones Calculus of gallbladder without cholecystitis without obstruction Procedures NM HEPATOBILIARY W EF AND/OR RX HEPATOBIL SYST IMAG INC GB W/PHARMA Jose Beaver MD [address] [place] [address] Molecular [facility] Functional Imaging [address] [place] [address] Referral ID Status Reason Start Date Expiration Date V isits Requested Visits Authorized [id number] Closed Auto-Generate d Referral 01/16/2024 06/22/2024 1 1 [facility] for referral (narrative)* Outpatient Procedure (Routine) - New Request Specialty Diagnoses / Procedures Referred By Contac t Referred To Contact [facility] Diagnoses Pre-operative examination Procedures ECG COMPLETE ECG ROUTINE ECG W/LEAST 12 LDS W/I&R Candice Kahn APRN.INTEGRATED CIRCUIT DESIGN ENGINEER [address] [place] [address] [facility] [address] [address] Referral ID Status Reason Start Date Expiration Date Visits Requested Visits Authorized [id number] New Request Auto-Generat ed Referral 02/11/2024 02/10/2025 1 1 * Outpatient Procedure (Routine) - Authorized Specialty Diagnoses / Procedures Referred By Contac t Referred To Contact [facility] Diagnoses Pre-operative examination Leg edema, left Procedures US LEG VEIN DVT TIMOTHY VAS LAB DUP-SCAN XTR VEINS COMPLETE BILATERAL STUDY Candice Kahn APRN.INTEGRATED CIRCUIT DESIGN ENGINEER [address] [place] [address] [facility] [address] [address] Referral ID Status Reason Start Date Expiration Date Visits Requested Visits Authorized [id number] Authorized Auto-Generat ed Referral 02/11/2024 02/10/2025 1 1 [facility] [place] for referral (narrative)* Diagnostic Procedure Only (Urgent) - Authorized Specialty Diagnoses / Procedures Referred By Contac t Referred To Contact US IMAGING Diagnoses Localized swelling of left lower leg Procedures US DVT LOWER LEFT DUP-SCAN XTR VEINS UNILATERAL/LIMITED STUDY Valerie Deshpande APRN.INTEGRATED CIRCUIT DESIGN ENGINEER [address] [place] [address] [place] [address] Referral ID Status Reason Start Date Expiration Date Visits Requested Visits Authorized [id number] Authorized Auto-Generat ed Referral 07/22/2025 1 1 * Diagnostic Procedure Only (Routine) - Closed Specialty Diagnoses / Procedures Referred By Contac t Referred To Contact XR IMAGING Diagnoses Injury of left knee, subsequent encounter Procedures XR KNEE GENERAL 4V AP BOTH/PA BOTH/LAT/MERC LEFT RADIOLOGIC EXAM KNEE COMPLETE 4/MORE VIEWS Valerie Deshpande APRN.INTEGRATED CIRCUIT DESIGN ENGINEER [address] [place] [address] [place] [address] Referral ID Status Reason Start Date Expiration Date V isits Requested Visits Authorized [id number] Closed Auto-Generate d Referral 06/22/2024 07/22/2025 1 1 [facility] [place] for referral (narrative)* Diagnostic Procedure Only (Urgent) - Closed Specialty Diagnoses / Procedures Referred By Contac t Referred To Contact US IMAGING Diagnoses Localized swelling of left lower leg Procedures US DVT LOWER LEFT DUP-SCAN XTR VEINS UNILATERAL/LIMITED STUDY Valerie Deshpande APRN.INTEGRATED CIRCUIT DESIGN ENGINEER [facility] [place] [address] [place] [address] Referral ID Status Reason Start Date Expiration Date V isits Requested Visits Authorized [id number] Closed Auto-Generate d Referral 06/22/2024 07/22/2025 1 1 [facility] for referral (narrative)* Diagnostic Procedure Only (Urgent) - Closed Specialty Diagnoses / Procedures Referred By Contac t Referred To Contact XR IMAGING Diagnoses Foot pain, left Procedures XR FOOT GENERAL 3V AP/LAT/OBL LEFT RADEX FOOT COMPLETE MINIMUM 3 VIEWS Jose Fam MD [address] [place] [address] [place] [address] Referral ID Status Reason Start Date Expiration Date V isits Requested Visits Authorized [id number] Closed Auto-Generate d Referral 07/01/2024 07/31/2025 1 1 [facility] for referral (narrative)* Diagnostic Procedure Only (Urgent) - Closed Specialty Diagnoses / Procedures Referred By Contac t Referred To Contact XR IMAGING Diagnoses Foot pain, left Procedures XR FOOT GENERAL 3V AP/LAT/OBL LEFT RADEX FOOT COMPLETE MINIMUM 3 VIEWS Jose Fam MD [address] [place] [address] [place] [address] Referral ID Status Reason Start Date Expiration Date V isits Requested Visits Authorized [id number] Closed Auto-Generate d Referral 07/01/2024 07/31/2025 1 1 [facility] for visit Narrative* Diagnostic Procedure Only (Routine) - Closed Specialty Diagnoses / Procedures Referred By Contac t Referred To Contact MR IMAGING Diagnoses Transient global amnesia Confusion History of CVA (cerebrovascular accident) Procedures MRI BRAIN WO IVCON MRI BRAIN BRAIN STEM W/O CONTRAST MATERIAL Phoebe Muro PA-C [address] [place] [phone] Mr Imaging Referral ID Status Reason Start Date Expiration Date Visits Re quested Visits Authorized [id number] Closed 12/17/2021 01/16/2022 1 1 [facility] for visit Narrative* Diagnostic Procedure Only (Urgent) - Closed Specialty Diagnoses / Procedures Referred By Contac t Referred To Contact XR IMAGING Diagnoses Foot injury, left, initial encounter Procedures XR FOOT GENERAL 3V AP/LAT/OBL LEFT RADEX FOOT COMPLETE MINIMUM 3 VIEWS Khoa Womack APRN.CNP [address] [place] [id number] [place] [address] Referral ID Status Reason Start Date Expiration Date V isits Requested Visits Authorized [id number] Closed Auto-Generate d Referral 03/13/2023 04/11/2024 1 1 [facility] for visit Narrative* Diagnostic Procedure Only (Routine) - Closed Specialty Diagnoses / Procedures Referred By Contac t Referred To Contact XR IMAGING Diagnoses Injury of left knee, subsequent encounter Procedures XR KNEE GENERAL 4V AP BOTH/PA BOTH/LAT/MERC LEFT RADIOLOGIC EXAM KNEE COMPLETE 4/MORE VIEWS Valerie Deshpande, FRANCY.INTEGRATED CIRCUIT DESIGN ENGINEER [address] [place] [address] [place] [address] Referral ID Status Reason Start Date Expiration Date V isits Requested Visits Authorized [id number] Closed Auto-Generate d Referral 06/22/2024 07/22/2025 1 1 [facility] for visit Narrative* Diagnostic Procedure Only (Urgent) - Closed Specialty Diagnoses / Procedures Referred By Contac t Referred To Contact XR IMAGING Diagnoses Foot pain, left Procedures XR FOOT GENERAL 3V AP/LAT/OBL LEFT RADEX FOOT COMPLETE MINIMUM 3 VIEWS Jose Fam MD [address] [place] [address] [place] [address] Referral ID Status Reason Start Date Expiration Date V isits Requested Visits Authorized [id number] Closed Auto-Generate d Referral 07/01/2024 07/31/2025 1 1 [facility] note* LUIS Parham: PERFORM Event Display: Patient Summary Documents Authored Date: [id number] [facility] Summary Purpose Family History No Family History Records FoundNo Family History Records FoundNo Family History Records FoundNo Family History Records FoundNo Family History Records Found Advance Directives Documents on File Type Date Recorded Patient Director Cloud Transformation Expl anation Advance Directive(s) 12/14/2018 11:58 AM Advance Directive(s) 11/23/2018 3:27 PM Advance Directive(s) 09/08/2018 6:36 AM Advance Directive(s) 01/07/2017 1:34 PM Advance Directive(s) 10/26/2009 7:05 PM Advance Directive(s) 06/28/2009 9:32 PM Documents on File Type Date Recorded Patient Director Cloud Transformation Expl anation Advance Directive(s) 12/14/2018 11:58 AM Advance Directive(s) 11/23/2018 3:27 PM Advance Directive(s) 09/08/2018 6:36 AM Advance Directive(s) 01/07/2017 1:34 PM Advance Directive(s) 10/26/2009 7:05 PM Advance Directive(s) 06/28/2009 9:32 PM Documents on File Type Date Recorded Patient Director Cloud Transformation Expl anation Advance Directive(s) 10/26/2009 7:05 PM Advance Directive(s) 06/28/2009 9:32 PM Advance Directive Response Recorded Date/ Time Advance Directives Yes April 7:35pm Living Will Yes May 16, 021 4:13pm Power of Hourly Team Members Yes May 16, 2021 4:13pm Documents on File Type Date Recorded Patient Director Cloud Transformation Expl anation Advance Directive(s) 10/26/2009 7:05 PM Advance Directive(s) 06/28/2009 9:32 PM Advance Directive Response Recorded Date/ Time Advance Directives Yes April 7:35pm Living Will Yes November 29, 2022 6 :13pm Power of Hourly Team Members Yes November 29, 2022 6:13pm Name of Medical Power of Hourly Team Members recalled November 29, 2022 6:13pm Advance Directive Response Recorded Date/ Time Living Will Yes June 08, 024 12:07pm Power of Hourly Team Members Yes June 08, 2024 12:07pm Name of Medical Power of Hourly Team Members SUDARSHAN Barajas June 08, 2024 12:07pm Living Will Yes June 09, 024 9:01pm Power of Hourly Team Members Yes June 09, 2024 9:01pm Name of Medical Power of Hourly Team Members June 09, 2024 9:01pm Advance Directives on File No oLurdes ry 2024 12:30pm Living Will Yes July 19 12:30pm Power of Hourly Team Members Yes July 19, 2024 12:30pm Name of Medical Power of Hourly Team Members Noemi Johnson (Spo use) July 19, 2024 12:30pm Advance Directives Yes July 19, 2024 12:30pm Living Will Yes June 17, 2 024 7:07pm Power of Hourly Team Members Yes June 17, 2024 7:07pm Name of Medical Power of Hourly Team Members ? June 17, 2024 7:07pm Living Will Yes July 22 3:59pm Power of Hourly Team Members Yes July 22, 2024 3:59pm Name of Medical Power of Hourly Team Members Sudarshan July 22, 2024 3:59pm Living Will Yes July 27 3:42pm Power of Hourly Team Members Yes July 27, 2024 3:42pm Name of Medical Power of Hourly Team Members Tera olguin July 27, 2024 3:42pm Advance Directive Response Recorded Date/ Time Living Will Yes June 08 12:07pm Do you have a Healthcare Pow er of Hourly Team Members? Yes June 08, 2024 12:07pm Name of Medical Power of Hourly Team Members SUDARSHAN Barajas June 08, 2024 12:07pm Living Will Yes June 09 9:01pm Do you have a Healthcare Pow er of Hourly Team Members? Yes June 09, 2024 9:01pm Name of Medical Power of Hourly Team Members June 09, 2024 9:01pm Advance Directives on File No [place] ry 2024 12:30pm Living Will Yes July 19 12:30pm Do you have a Healthcare Pow er of Hourly Team Members? Yes July 19, 2024 12:30pm Name of Medical Power of Hourly Team Members Noemi Johnson (Spo use) July 19, 2024 12:30pm Advance Directives Yes July 19, 2024 12:30pm Living Will Yes June 17 7:07pm Do you have a Healthcare Pow er of Hourly Team Members? Yes June 17, 2024 7:07pm Name of Medical Power of Hourly Team Members ? June 17, 2024 7:07pm Living Will Yes July 22 3:59pm Do you have a Healthcare Pow er of Hourly Team Members? Yes July 22, 2024 3:59pm Name of Medical Power of Hourly Team Members Sudarshan July 22, 2024 3:59pm Living Will Yes July 27 3:42pm Do you have a Healthcare Pow er of Hourly Team Members? Yes July 27, 2024 3:42pm Name of Medical Power of Hourly Team Members Tera olguin July 27, 2024 3:42pm Advance Directive Response Recorded Date/ Time Do you have a Healthcare Pow er of Hourly Team Members? No October 27, 2024 10:18am Living Will Yes June 08 12:07pm Do you have a Healthcare Pow er of Hourly Team Members? Yes June 08, 2024 12:07pm Name of Medical Power of Hourly Team Members SUDARSHAN Barajas June 08, 2024 12:07pm Advance Directives on File No [place] ry 2024 12:30pm Living Will Yes July 19 12:30pm Do you have a Healthcare Pow er of Hourly Team Members? Yes July 19, 2024 12:30pm Name of Medical Power of Hourly Team Members Noemi Johnson (Spo use) July 19, 2024 12:30pm Advance Directives Yes July 19, 2024 12:30pm Living Will Yes July 22 3:59pm Do you have a Healthcare Pow er of Hourly Team Members? Yes July 22, 2024 3:59pm Name of Medical Power of Hourly Team Members Sudarshan July 22, 2024 3:59pm Living Will Yes July 27 3:42pm Do you have a Healthcare Pow er of Hourly Team Members? Yes July 27, 2024 3:42pm Name of Medical Power of Hourly Team Members Tera olguin July 27, 2024 3:42pm Advance Directive Response Recorded Date/ Time Do you have a Healthcare Pow er of Hourly Team Members? No October 27, 2024 10:18am Do you have a Healthcare Pow er of Hourly Team Members? Yes October 28, 2024 8:20am Living Will Yes June 08, 12:07pm Do you have a Healthcare Pow er of Hourly Team Members? Yes June 08, 2024 12:07pm Name of Medical Power of Hourly Team Members SUDARSHAN Barajas June 08, 2024 12:07pm Advance Directives on File No [place] ry 2024 12:30pm Living Will Yes July 19 12:30pm Do you have a Healthcare Pow er of Hourly Team Members? Yes July 19, 2024 12:30pm Name of Medical Power of Hourly Team Members Noemi Johnson (Spo use) July 19, 2024 12:30pm Advance Directives Yes July 19, 2024 12:30pm Living Will Yes July 22 3:59pm Do you have a Healthcare Pow er of Hourly Team Members? Yes July 22, 2024 3:59pm Name of Medical Power of Hourly Team Members Sudarshan July 22, 2024 3:59pm Living Will Yes July 27 3:42pm Do you have a Healthcare Pow er of Hourly Team Members? Yes July 27, 2024 3:42pm Name of Medical Power of Hourly Team Members Tera olguin July 27, 2024 3:42pm Advance Directive Response Recorded Date/ Time Do you have a Healthcare Pow er of Hourly Team Members? No October 27, 2024 10:18am Do you have a Healthcare Pow er of Hourly Team Members? Yes October 28, 2024 2:19pm Living Will Yes June 08 12:07pm Do you have a Healthcare Pow er of Hourly Team Members? Yes June 08, 2024 12:07pm Name of Medical Power of Hourly Team Members SUDARSHAN Barajas June 08, 2024 12:07pm Advance Directives on File No [place] ry 2024 12:30pm Living Will Yes July 19 12:30pm Do you have a Healthcare Pow er of Hourly Team Members? Yes July 19, 2024 12:30pm Name of Medical Power of Hourly Team Members Susana (Spo use) July 19, 2024 12:30pm Advance Directives Yes July 19, 2024 12:30pm Living Will Yes July 22 3:59pm Do you have a Healthcare Pow er of Hourly Team Members? Yes July 22, 2024 3:59pm Name of Medical Power of Hourly Team Members Sudarshan July 22, 2024 3:59pm Living Will Yes July 27 3:42pm Do you have a Healthcare Pow er of Hourly Team Members? Yes July 27, 2024 3:42pm Name of Medical Power of Hourly Team Members Tera olguin July 27, 2024 3:42pm Reason for Referral Specialty Diagnoses / Procedures Referred By Chris jacques Referred To Contact MR IMAGING Diagnoses Transient global amnesia Confusion History of CVA (cerebrovascular accident) Procedures MRI BRAIN WO IVCON MRI BRAIN BRAIN STEM W/O CONTRAST MATERIAL Phoebe Muro PA-C [address] [place] [address] Mr Imaging Referral ID Status Reason Start Date Expiration Date Visits Requested Visits Authorized [id number] Pending Review Auto-Generat ed Referral 12/10/2021 01/09/2023 1 1 Specialty Diagnoses / Procedures Referred By Chris jacques Referred To Contact CT IMAGING Diagnoses Lung nodules Procedures CT CHEST WO IVCON DIAGNOSTIC COMPUTED TOMOGRAPHY THORAX W/O CNTRST Phoebe Muro PA-C [address] [place] [address] Ct Imaging Referral ID Status Reason Start Date Expiration Date Visits Requested Visits Authorized [id number] Authorized Auto-Generat ed Referral 08/06/2022 09/05/2023 1 1 Specialty Diagnoses / Procedures Referred By Contac t Referred To Contact CT IMAGING Diagnoses 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, unspecified blood vessel laterality (HCC) Procedures CT BRAIN WO IVCON CT HEAD/BRAIN W/O CONTRAST MATERIAL Valerie Deshpande, BANQUET CAPTAIN.INTEGRATED CIRCUIT DESIGN ENGINEER [address] [place] [address] Ct Imaging Referral ID Status Reason Start Date Expiration Date Visits Requested Visits Authorized [id number] Authorized Auto-Generat ed Referral 12/06/2022 01/05/2024 1 1 Specialty Diagnoses / Procedures Referred By Contac t Referred To Contact Diagnoses Lightheaded SVT (supraventricular tachycardia) (HCC) Essential hypertension Mixed hyperlipidemia JESSY (obstructive sleep apnea) Procedures CONSULT TO SLEEP MEDICINE - ADULT OFFICE/OUTPATIENT [facility] 60-74 MINUTES Lucas Ramirez, DO [address] [place] [address] Referral ID Status Reason Start Date Expiration Date Visits Requested Visits Authorized [id number] Authorized PCP Requested Referral 12/11/2022 12/11/2023 1 1 Specialty Diagnoses / Procedures Referred By Contac t Referred To Contact Dermatology Diagnoses Skin lesions Skin cancer screening Procedures CONSULT TO DERMATOLOGY Jose Fam MD [address] [place] [address] Referral ID Status Reason Start Date Expiration Date Visits Requested Visits Authorized [id number] Ref Not Required PCP Requested Referral 04/08/2024 1 1 Specialty Diagnoses / Procedures Referred By Contac t Referred To Contact [facility] Diagnoses History of CVA (cerebrovascular accident) Neuropathy Lumbar stenosis with neurogenic claudication Gait difficulty Balance problem At risk for falls Procedures CONSULT TO PHYSICAL THERAPY PHYSICAL THERAPY EVALUATION HIGH COMPLEX 45 MINS Jose Fam MD [address] [place] [address] [facility] [address] [place] [address] Referral ID Status Reason Start Date Expiration Date Visits Requested Visits Authorized [id number] Pending Review Auto-Generat ed Referral 3 04/08/2024 1 1 Specialty Diagnoses / Procedures Referred By Contac t Referred To Contact Dermatology Diagnoses Skin cancer screening Skin lesions Procedures CONSULT TO DERMATOLOGY Jose Fam MD [facility] [place] [address] Referral ID Status Reason Start Date Expiration Date Visits Requested Visits Authorized [id number] Ref Not Required PCP Requested Referral 3 04/08/2024 1 1 Specialty Diagnoses / Procedures Referred By Contac t Referred To Contact [facility] Diagnoses Bilateral carotid artery stenosis Procedures US CAROTID ARTERIES TIMOTHY VAS LAB DUPLEX SCAN EXTRACRANIAL ART COMPL BI STUDY Jose Fam MD [address] [place] [address] [facility] [address] [place] [address] Referral ID Status Reason Start Date Expiration Date Visits Requested Visits Authorized [id number] Authorized Auto-Generat ed Referral 3 04/08/2024 1 1 Specialty Diagnoses / Procedures Referred By Contac t Referred To Contact Diagnoses Acquired hypothyroidism Jose Fam MD [address] [place] [address] Referral ID Status Reason Start Date Expiration Date V isits Requested Visits Authorized [id number] Authorized 04/09/2023 04/09/2023 1 1 Specialty Diagnoses / Procedures Referred By Contac t Referred To Contact CT IMAGING Diagnoses Lung nodules Procedures CT CHEST WO IVCON DIAGNOSTIC COMPUTED TOMOGRAPHY THORAX W/O Valerie Parmar, BANQUET CAPTAIN.INTEGRATED CIRCUIT DESIGN ENGINEER [address] [place] [address] [place] [address] Referral ID Status Reason Start Date Expiration Date Visits Requested Visits Authorized [id number] Pending Review Auto-Generat ed Referral 07/16/2023 05/14/2024 1 1 Specialty Diagnoses / Procedures Referred By Contac t Referred To Contact CT IMAGING Diagnoses Lung nodules Procedures CT CHEST WO IVCON DIAGNOSTIC COMPUTED TOMOGRAPHY THORAX W/O CNTRST Phoebe Muro PA-C [address] [place] [address] [place] [address] Referral ID Status Reason Start Date Expiration Date V isits Requested Visits Authorized [id number] Closed Auto-Generate d Referral 08/06/2022 09/05/2023 1 1 Specialty Diagnoses / Procedures Referred By Contac t Referred To Contact Diagnoses Aisha Hubbard, FRANCY.INTEGRATED CIRCUIT DESIGN ENGINEER [address] [place] [address] Referral ID Status Reason Start Date Expiration Date V isits Requested Visits Authorized [id number] Pending Review 1 1 Specialty Diagnoses / Procedures Referred By Contac t Referred To Contact Gastroenterology Diagnoses Esophageal dysphagia Procedures CONSULT TO GASTROENTEROLOGY OFFICE/OUTPATIENT [facility] 60 MINUTES Jose Fam MD [address] [place] [address] Referral ID Status Reason Start Date Expiration Date Visits Requested Visits Authorized [id number] Authorized PCP Requested Referral 04/09/2025 1 1 Chief Complaint and Reason for Visit Chief Complaint 3 MO FU R13.14 Dysphagia, pharyngoesophageal phase Reason for Visit Esophageal dysphagia Chief Complaint WEAKNESS Chief Complaint Admit Date ATRIAL FLUTTER June 09, 2024 7:03pm Atrial flutter, new onset June 09, 2024 8:51pm AFIB/FLUTTER June 09, 2024 9:29pm NEW ONSET AFIB/S/P [facility] 06/09June 142023 8:21am BRUISE June 17, 2024 3:12pm MI[employer] Teaching June 28, 2024 12 :57pm E-ORDER June 28, 2024 1: 26pm [employer] Leadless pacemaker Implant #[id number] July 16, 2024 4:27pm [employer] Leadless pacemaker Implant #[id number] July 19, 2024 2:59pm [employer] Leadless pacemaker Implant #[id number] July 20, 2024 8:40am INPATIENT 1st day post implant June 242024 8:53am Pacer Check Remote July 20, 2024 1 0:03am [employer] Leadless pacemaker Implant #[id number] July 21, 2024 5:00pm [employer] Leadless pacemaker Implant #[id number] July 22, 2024 7:42am [employer] Leadless pacemaker Implant #[id number] July 22, 2024 8:44am [employer] LEADLESS PACEMAKER IMPLANT Sukhdev guajardo 2024 10:18am [employer] VR LEADLESS PACEMAKER IMPLANT [facility]2024 5:40pm R22.41 RIGHT LEG SWELLING July 28, 2024 10:38am RLE July 28, 2024 1 1:10am Pacer Check Remote August 04, 2024 9:00am s/p DPPM implant wound check August 042024 11:29am LEFT LEG SWELLING August 17, 2024 8:04am R/LEG PAIN August 19, 2024 8:36am Reason for Visit Admit Date High cholesterol June 14, 2024 8:21am Hypertension June 14, 2024 8:21am 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 June 14, 2024 8:21am Persistent atrial fibrillation June 14, 2024 8:21am Bradycardia with 41-50 beats per minute June 14, 2024 8:21am 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 June 28, 2024 12:57pm Persistent atrial fibrillation June 282024 12:57pm Persistent atrial fibrillation June 242024 2:59pm Bradycardia July 19, 2024 2 :59pm Status post cardiac pacemaker procedure July 19, 2024 2:59pm 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 July 20, 2024 8:53am Sick sinus syndrome July 20, 2024 8 :53am Persistent atrial fibrillation June 242024 8:53am Bradycardia July 20, 2024 8 :53am Status post cardiac pacemaker procedure July 20, 2024 8:53am BPH (benign prostatic hyperplasia) [facility] 2024 10:18am Debility July 22, 2024 1 0:18am Depression July 22, 2024 1 0:18am Difficulty swallowing July 22, 2024 10:18am Essential (primary) hypertension July 22, 2024 10:18am Hyperlipidemia July 22, 2024 1 0:18am Hypokalemia July 22, 2024 1 0:18am Hypothyroidism July 22, 2024 1 0:18am Imbalance July 22, 2024 1 0:18am Insomnia July 22, 2024 1 0:18am Neuropathy July 22, 2024 1 0:18am Stroke July 22, 2024 1 0:18am SVT (supraventricular tachycardia) [facility] 2024 10:18am 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 July 22, 2024 10:18am Sick sinus syndrome July 22, 2024 1 0:18am Persistent atrial fibrillation June 252024 10:18am Status post cardiac pacemaker procedure July 22, 2024 10:18am Difficulty swallowing July 27, 2024 2:37pm History of pacemaker August 04, 2024 11:29am 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 August 04, 2024 11:29am Sick sinus syndrome August 04, 2024 11:29am Persistent atrial fibrillation August 04, 2024 11:29am Difficulty swallowing August 27, 2024 1: 05pm Chief Complaint Admit Date ATRIAL FLUTTER June 09, 2024 7:03pm Atrial flutter, new onset June 09, 2024 8:51pm AFIB/FLUTTER June 09, 2024 9:29pm NEW ONSET AFIB/S/P [facility] 06/09June 142023 8:21am BRUISE June 17, 2024 3:12pm MICRA Teaching June 28, 2024 12 :57pm E-ORDER June 28, 2024 1: 26pm [employer] Leadless pacemaker Implant #332 74 July 16, 2024 4:27pm [employer] Leadless pacemaker Implant #332 74 July 19, 2024 2:59pm [employer] Leadless pacemaker Implant #332 74 July 20, 2024 8:40am INPATIENT 1st day post implant June 242024 8:53am Pacer Check Remote July 20, 2024 1 0:03am [employer] Leadless pacemaker Implant #332 74 July 21, 2024 5:00pm [employer] Leadless pacemaker Implant #332 74 July 22, 2024 7:42am [employer] Leadless pacemaker Implant #332 74 July 22, 2024 8:44am MI[employer] VR LEADLESS PACEMAKER IMPLANT Sukhdev guajardo 2024 10:18am MI[employer] VR LEADLESS PACEMAKER IMPLANT Nikki 2024 5:40pm R22.41 RIGHT LEG SWELLING July 28, 2024 10:38am RLE July 28, 2024 1 1:10am Pacer Check Remote August 04, 2024 9:00am s/p DPPM implant wound check August 042024 11:29am LEFT LEG SWELLING August 17, 2024 8:04am R/LEG PAIN August 19, 2024 8:36am 6 wk s/p PPM implant f/u August 31 11:02am Reason for Visit Admit Date High cholesterol June 14, 2024 8:21am Hypertension June 14, 2024 8:21am 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 June 14, 2024 8:21am Persistent atrial fibrillation June 14, 2024 8:21am Bradycardia with 41-50 beats per minute June 14, 2024 8:21am 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 June 28, 2024 12:57pm Persistent atrial fibrillation June 282024 12:57pm Persistent atrial fibrillation June 242024 2:59pm Bradycardia July 19, 2024 2 :59pm Status post cardiac pacemaker procedure July 19, 2024 2:59pm 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 July 20, 2024 8:53am Sick sinus syndrome July 20, 2024 8 :53am Persistent atrial fibrillation June 242024 8:53am Bradycardia July 20, 2024 8 :53am Status post cardiac pacemaker procedure July 20, 2024 8:53am BPH (benign prostatic hyperplasia) [facility] 2024 10:18am Debility July 22, 2024 1 0:18am Depression July 22, 2024 1 0:18am Difficulty swallowing July 22, 2024 10:18am Essential (primary) hypertension July 22, 2024 10:18am Hyperlipidemia July 22, 2024 1 0:18am Hypokalemia July 22, 2024 1 0:18am Hypothyroidism July 22, 2024 1 0:18am Imbalance July 22, 2024 1 0:18am Insomnia July 22, 2024 1 0:18am Neuropathy July 22, 2024 1 0:18am Stroke July 22, 2024 1 0:18am SVT (supraventricular tachycardia) [facility] 2024 10:18am 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 July 22, 2024 10:18am Sick sinus syndrome July 22, 2024 1 0:18am Persistent atrial fibrillation June 252024 10:18am Status post cardiac pacemaker procedure July 22, 2024 10:18am Difficulty swallowing July 27, 2024 2:37pm History of pacemaker August 04, 2024 11:29am 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 August 04, 2024 11:29am Sick sinus syndrome August 04, 2024 11:29am Persistent atrial fibrillation August 04, 2024 11:29am Difficulty swallowing August 27, 2024 1: 05pm History of pacemaker August 31, 2024 11 :02am 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 August 31, 2024 11:02am Sick sinus syndrome August 31, 2024 11: 02am Reason for Visit Admit Date High cholesterol June 14, 2024 8:21am Hypertension June 14, 2024 8:21am 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 June 14, 2024 8:21am Persistent atrial fibrillation June 14, 2024 8:21am Bradycardia with 41-50 beats per minute June 14, 2024 8:21am 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 June 28, 2024 12:57pm Persistent atrial fibrillation June 282024 12:57pm Persistent atrial fibrillation June 242024 2:59pm Bradycardia July 19, 2024 2 :59pm Status post cardiac pacemaker procedure July 19, 2024 2:59pm 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 July 20, 2024 8:53am Sick sinus syndrome July 20, 2024 8 :53am Persistent atrial fibrillation June 242024 8:53am Bradycardia July 20, 2024 8 :53am Status post cardiac pacemaker procedure July 20, 2024 8:53am BPH (benign prostatic hyperplasia) [facility] 2024 10:18am Debility July 22, 2024 1 0:18am Depression July 22, 2024 1 0:18am Essential (primary) hypertension July 22, 2024 10:18am Hyperlipidemia July 22, 2024 1 0:18am Hypokalemia July 22, 2024 1 0:18am Hypothyroidism July 22, 2024 1 0:18am Insomnia July 22, 2024 1 0:18am Neuropathy July 22, 2024 1 0:18am Difficulty swallowing July 22, 2024 10:18am Imbalance July 22, 2024 1 0:18am 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 July 22, 2024 10:18am Sick sinus syndrome July 22, 2024 1 0:18am Stroke July 22, 2024 1 0:18am SVT (supraventricular tachycardia) [facility] 2024 10:18am Persistent atrial fibrillation June 252024 10:18am Status post cardiac pacemaker procedure July 22, 2024 10:18am Difficulty swallowing July 27, 2024 2:37pm History of pacemaker August 04, 2024 11:29am 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 August 04, 2024 11:29am Sick sinus syndrome August 04, 2024 11:29am Persistent atrial fibrillation August 04, 2024 11:29am Difficulty swallowing August 27, 2024 1: 05pm History of pacemaker August 31, 2024 11 :02am 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 August 31, 2024 11:02am Sick sinus syndrome August 31, 2024 11: 02am Chief Complaint Admit Date [employer] Leadless pacemaker Implant #332 74 July 16, 2024 4:27pm [employer] Leadless pacemaker Implant #332 74 July 19, 2024 2:59pm [employer] Leadless pacemaker Implant #332 74 July 20, 2024 8:40am INPATIENT 1st day post implant June 242024 8:53am Pacer Check Remote July 20, 2024 1 0:03am [employer] Leadless pacemaker Implant #332 74 July 21, 2024 5:00pm [employer] Leadless pacemaker Implant #332 74 July 22, 2024 7:42am Mic[employer] Leadless pacemaker Implant #332 74 July 22, 2024 8:44am MI[employer] LEADLESS PACEMAKER IMPLANT Sukhdev guajardo 2024 10:18am MI[employer] VR LEADLESS PACEMAKER IMPLANT [facility]2024 5:40pm R22.41 RIGHT LEG SWELLING July 28, 2024 10:38am RLE July 28, 2024 1 1:10am Pacer Check Remote August 04, 2024 9:00am s/p DPPM implant wound check August 042024 11:29am LEFT LEG SWELLING August 17, 2024 8:04am R/LEG PAIN August 19, 2024 8:36am Pacer Check Remote August 31, 2024 9:0 0am 6 wk s/p PPM implant f/u August 31 11:02am SOB October 27, 2024 9:38am Reason for Visit Admit Date Persistent atrial fibrillation June 242024 2:59pm Bradycardia July 19, 2024 2 :59pm Status post cardiac pacemaker procedure July 19, 2024 2:59pm 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 July 20, 2024 8:53am Sick sinus syndrome July 20, 2024 8 :53am Persistent atrial fibrillation June 242024 8:53am Bradycardia July 20, 2024 8 :53am Status post cardiac pacemaker procedure July 20, 2024 8:53am BPH (benign prostatic hyperplasia) [facility] 2024 10:18am Debility July 22, 2024 1 0:18am Depression July 22, 2024 1 0:18am Essential (primary) hypertension July 22, 2024 10:18am Hyperlipidemia July 22, 2024 1 0:18am Hypokalemia July 22, 2024 1 0:18am Hypothyroidism July 22, 2024 1 0:18am Insomnia July 22, 2024 1 0:18am Neuropathy July 22, 2024 1 0:18am Difficulty swallowing July 22, 2024 10:18am Imbalance July 22, 2024 1 0:18am 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 July 22, 2024 10:18am Sick sinus syndrome July 22, 2024 1 0:18am Stroke July 22, 2024 1 0:18am SVT (supraventricular tachycardia) [facility] ry 2024 10:18am Persistent atrial fibrillation June 252024 10:18am Status post cardiac pacemaker procedure July 22, 2024 10:18am Difficulty swallowing July 27, 2024 2:37pm History of pacemaker August 04, 2024 11:29am 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 August 04, 2024 11:29am Sick sinus syndrome August 04, 2024 11:29am Persistent atrial fibrillation August 04, 2024 11:29am Difficulty swallowing August 27, 2024 1: 05pm History of pacemaker August 31, 2024 11 :02am 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 August 31, 2024 11:02am Sick sinus syndrome August 31, 2024 11: 02am Chief Complaint Admit Date [employer] Leadless pacemaker Implant #332 74 July 16, 2024 4:27pm Mic[employer] Leadless pacemaker Implant #332 74 July 19, 2024 2:59pm Mic[employer] Leadless pacemaker Implant #332 74 July 20, 2024 8:40am INPATIENT 1st day post implant June 242024 8:53am Pacer Check Remote July 20, 2024 1 0:03am Mic[employer] Leadless pacemaker Implant #332 74 July 21, 2024 5:00pm [employer] Leadless pacemaker Implant #332 74 July 22, 2024 7:42am Mic[employer] Leadless pacemaker Implant #332 74 July 22, 2024 8:44am [employer] LEADLESS PACEMAKER IMPLANT Sukhdev guajardo 2024 10:18am MI[employer] VR LEADLESS PACEMAKER IMPLANT [facility] 2024 5:40pm R22.41 RIGHT LEG SWELLING July 28, 2024 10:38am RLE July 28, 2024 1 1:10am Pacer Check Remote August 04, 2024 9:00am s/p DPPM implant wound check August 042024 11:29am LEFT LEG SWELLING August 17, 2024 8:04am R/LEG PAIN August 19, 2024 8:36am Pacer Check Remote August 31, 2024 9:0 0am 6 wk s/p PPM implant f/u August 31 11:02am SOB October 27, 2024 9:38am CHF EXACERBATION October 28, 2024 10:40a m Reason for Visit Admit Date Persistent atrial fibrillation June 242024 2:59pm Bradycardia July 19, 2024 2 :59pm Status post cardiac pacemaker procedure July 19, 2024 2:59pm 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 July 20, 2024 8:53am Sick sinus syndrome July 20, 2024 8 :53am Persistent atrial fibrillation June 242024 8:53am Bradycardia July 20, 2024 8 :53am Status post cardiac pacemaker procedure July 20, 2024 8:53am BPH (benign prostatic hyperplasia) Jun 2024 10:18am Debility July 22, 2024 1 0:18am Depression July 22, 2024 1 0:18am Essential (primary) hypertension July 22, 2024 10:18am Hyperlipidemia July 22, 2024 1 0:18am Hypokalemia July 22, 2024 1 0:18am Hypothyroidism July 22, 2024 1 0:18am Insomnia July 22, 2024 1 0:18am Neuropathy July 22, 2024 1 0:18am Difficulty swallowing July 22, 2024 10:18am Imbalance July 22, 2024 1 0:18am 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 July 22, 2024 10:18am Sick sinus syndrome July 22, 2024 1 0:18am Stroke July 22, 2024 1 0:18am SVT (supraventricular tachycardia) Jun 2024 10:18am Persistent atrial fibrillation June 252024 10:18am Status post cardiac pacemaker procedure July 22, 2024 10:18am Difficulty swallowing July 27, 2024 2:37pm History of pacemaker August 04, 2024 11:29am 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 August 04, 2024 11:29am Sick sinus syndrome August 04, 2024 11:29am Persistent atrial fibrillation August 04, 2024 11:29am Difficulty swallowing August 27, 2024 1: 05pm History of pacemaker August 31, 2024 11 :02am 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 August 31, 2024 11:02am Sick sinus syndrome August 31, 2024 11: 02am Atrial flutter October 28, 2024 10:40a m Congestive heart failure October 28, 2024 1 0:40am Essential (primary) hypertension October 10:40am SOB (shortness of breath) October 28, 2024 10:40am Chief Complaint Admit Date [employer] Leadless pacemaker Implant #332 74 July 16, 2024 4:27pm Mic[employer] Leadless pacemaker Implant #332 74 July 19, 2024 2:59pm Mic[employer] Leadless pacemaker Implant #332 74 July 20, 2024 8:40am INPATIENT 1st day post implant June 242024 8:53am Pacer Check Remote July 20, 2024 1 0:03am Mic[employer] Leadless pacemaker Implant #332 74 July 21, 2024 5:00pm [employer] Leadless pacemaker Implant #332 74 July 22, 2024 7:42am Mic[employer] Leadless pacemaker Implant #332 74 July 22, 2024 8:44am MI[employer] LEADLESS PACEMAKER IMPLANT Sukhdev guajardo 2024 10:18am MI[employer] VR LEADLESS PACEMAKER IMPLANT [facility] 2024 5:40pm R22.41 RIGHT LEG SWELLING July 28, 2024 10:38am RLE July 28, 2024 1 1:10am Pacer Check Remote August 04, 2024 9:00am s/p DPPM implant wound check August 042024 11:29am LEFT LEG SWELLING August 17, 2024 8:04am R/LEG PAIN August 19, 2024 8:36am Pacer Check Remote August 31, 2024 9:0 0am 6 wk s/p PPM implant f/u August 31 11:02am SOB October 27, 2024 9:38am CHF EXACERBATION October 28, 2024 10:40a m CHF EXACERBATION October 28, 2024 4:36pm CHF EXACERBATION October 29, 2024 7:37am CHF EXACERBATION October 30, 2024 7:46a m CHF EXACERBATION October 31, 2024 8:44a m Reason for Visit Admit Date Persistent atrial fibrillation June 242024 2:59pm Bradycardia July 19, 2024 2 :59pm Status post cardiac pacemaker procedure July 19, 2024 2:59pm 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 July 20, 2024 8:53am Sick sinus syndrome July 20, 2024 8 :53am Persistent atrial fibrillation June 242024 8:53am Bradycardia July 20, 2024 8 :53am Status post cardiac pacemaker procedure July 20, 2024 8:53am BPH (benign prostatic hyperplasia) Jun 2024 10:18am Debility July 22, 2024 1 0:18am Depression July 22, 2024 1 0:18am Essential (primary) hypertension July 22, 2024 10:18am Hyperlipidemia July 22, 2024 1 0:18am Hypokalemia July 22, 2024 1 0:18am Hypothyroidism July 22, 2024 1 0:18am Insomnia July 22, 2024 1 0:18am Neuropathy July 22, 2024 1 0:18am Difficulty swallowing July 22, 2024 10:18am Imbalance July 22, 2024 1 0:18am 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 July 22, 2024 10:18am Sick sinus syndrome July 22, 2024 1 0:18am Stroke July 22, 2024 1 0:18am SVT (supraventricular tachycardia) [facility] 2024 10:18am Persistent atrial fibrillation June 252024 10:18am Status post cardiac pacemaker procedure July 22, 2024 10:18am Difficulty swallowing July 27, 2024 2:37pm History of pacemaker August 04, 2024 11:29am 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 August 04, 2024 11:29am Sick sinus syndrome August 04, 2024 11:29am Persistent atrial fibrillation August 04, 2024 11:29am Difficulty swallowing August 27, 2024 1: 05pm History of pacemaker August 31, 2024 11 :02am 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 August 31, 2024 11:02am Sick sinus syndrome August 31, 2024 11: 02am Atrial flutter October 28, 2024 10:40a m Congestive heart failure October 28, 2024 1 0:40am Diabetes mellitus, type 2 October 28, 2024 10:40am Essential (primary) hypertension October 10:40am SOB (shortness of breath) October 28, 2024 10:40am Additional Source Comments (unrecognized sect ion and content) No Status Records FoundNo Status Records FoundNo Status Records FoundNo Status Records FoundNo Status Records Found INFORMATION SOURCE (unrecogn ized section and content) DATE CREATED AUTHOR 02/26/2021 [facility] DATE CREATED AUTHOR AUTHOR'S ORGANIZ ATION 08/09/2022 [facility] DATE CREATED AUTHOR AUTHOR'S ORGANIZ ATION 02/28/2024 [facility] DATE CREATED AUTHOR AUTHOR'S ORGANIZ ATION 11/25/2024 [facility] DATE CREATED AUTHOR AUTHOR'S ORGANIZ ATION 11/26/2024 [facility] Source Comments (unrecognize d section and content) In the event this informatio n is protected by the Federal Confidentiality of Alcohol and Drug Abuse Patient Records regulations: The Federal rules restrict any use of the information to criminally investigate or prosecute any alcohol or drug abuse patient.[facility] the event this information is protected by the Federal Confidentiality of Alcohol and Drug Abuse Patient Records regulations: The Federal rules restrict any use of the information to criminally investigate or prosecute any alcohol or drug abuse patient.[facility] HospitalIn the event this information is protected by the Federal Confidentiality of Alcohol and Drug Abuse Patient Records regulations: The Federal rules restrict any use of the information to criminally investigate or prosecute any alcohol or drug abuse patient.[facility] HospitalIn the event this information is protected by the Federal Confidentiality of Alcohol and Drug Abuse Patient Records regulations: The Federal rules restrict any use of the information to criminally investigate or prosecute any alcohol or drug abuse patient.[facility] HospitalIn the event this information is protected by the Federal Confidentiality of Alcohol and Drug Abuse Patient Records regulations: The Federal rules restrict any use of the information to criminally investigate or prosecute any alcohol or drug abuse patient.[facility] HospitalIn the event this information is protected by the Federal Confidentiality of Alcohol and Drug Abuse Patient Records regulations: The Federal rules restrict any use of the information to criminally investigate or prosecute any alcohol or drug abuse patient.[facility] HospitalIn the event this information is protected by the Federal Confidentiality of Alcohol and Drug Abuse Patient Records regulations: The Federal rules restrict any use of the information to criminally investigate or prosecute any alcohol or drug abuse patient.[facility] HospitalIn the event this information is protected by the Federal Confidentiality of Alcohol and Drug Abuse Patient Records regulations: The Federal rules restrict any use of the information to criminally investigate or prosecute any alcohol or drug abuse patient.[facility] HospitalIn the event this information is protected by the Federal Confidentiality of Alcohol and Drug Abuse Patient Records regulations: The Federal rules restrict any use of the information to criminally investigate or prosecute any alcohol or drug abuse patient.[facility] HospitalIn the event this information is protected by the Federal Confidentiality of Alcohol and Drug Abuse Patient Records regulations: The Federal rules restrict any use of the information to criminally investigate or prosecute any alcohol or drug abuse patient.[facility] HospitalIn the event this information is protected by the Federal Confidentiality of Alcohol and Drug Abuse Patient Records regulations: The Federal rules restrict any use of the information to criminally investigate or prosecute any alcohol or drug abuse patient.[facility] HospitalIn the event this information is protected by the Federal Confidentiality of Alcohol and Drug Abuse Patient Records regulations: The Federal rules restrict any use of the information to criminally investigate or prosecute any alcohol or drug abuse patient.[facility] HospitalIn the event this information is protected by the Federal Confidentiality of Alcohol and Drug Abuse Patient Records regulations: The Federal rules restrict any use of the information to criminally investigate or prosecute any alcohol or drug abuse patient.[facility] HospitalIn the event this information is protected by the Federal Confidentiality of Alcohol and Drug Abuse Patient Records regulations: The Federal rules restrict any use of the information to criminally investigate or prosecute any alcohol or drug abuse patient.[facility] HospitalIn the event this information is protected by the Federal Confidentiality of Alcohol and Drug Abuse Patient Records regulations: The Federal rules restrict any use of the information to criminally investigate or prosecute any alcohol or drug abuse patient.[facility] HospitalIn the event this information is protected by the Federal Confidentiality of Alcohol and Drug Abuse Patient Records regulations: The Federal rules restrict any use of the information to criminally investigate or prosecute any alcohol or drug abuse patient.[facility] HospitalIn the event this information is protected by the Federal Confidentiality of Alcohol and Drug Abuse Patient Records regulations: The Federal rules restrict any use of the information to criminally investigate or prosecute any alcohol or drug abuse patient.[facility] HospitalIn the event this information is protected by the Federal Confidentiality of Alcohol and Drug Abuse Patient Records regulations: The Federal rules restrict any use of the information to criminally investigate or prosecute any alcohol or drug abuse patient.[facility] HospitalIn the event this information is protected by the Federal Confidentiality of Alcohol and Drug Abuse Patient Records regulations: The Federal rules restrict any use of the information to criminally investigate or prosecute any alcohol or drug abuse patient.[facility] HospitalIn the event this information is protected by the Federal Confidentiality of Alcohol and Drug Abuse Patient Records regulations: The Federal rules restrict any use of the information to criminally investigate or prosecute any alcohol or drug abuse patient.[facility] HospitalIn the event this information is protected by the Federal Confidentiality of Alcohol and Drug Abuse Patient Records regulations: The Federal rules restrict any use of the information to criminally investigate or prosecute any alcohol or drug abuse patient.[facility] HospitalIn the event this information is protected by the Federal Confidentiality of Alcohol and Drug Abuse Patient Records regulations: The Federal rules restrict any use of the information to criminally investigate or prosecute any alcohol or drug abuse patient.[facility] HospitalIn the event this information is protected by the Federal Confidentiality of Alcohol and Drug Abuse Patient Records regulations: The Federal rules restrict any use of the information to criminally investigate or prosecute any alcohol or drug abuse patient.[facility] HospitalIn the event this information is protected by the Federal Confidentiality of Alcohol and Drug Abuse Patient Records regulations: The Federal rules restrict any use of the information to criminally investigate or prosecute any alcohol or drug abuse patient.[facility] HospitalIn the event this information is protected by the Federal Confidentiality of Alcohol and Drug Abuse Patient Records regulations: The Federal rules restrict any use of the information to criminally investigate or prosecute any alcohol or drug abuse patient.[facility] HospitalIn the event this information is protected by the Federal Confidentiality of Alcohol and Drug Abuse Patient Records regulations: The Federal rules restrict any use of the information to criminally investigate or prosecute any alcohol or drug abuse patient.[facility] HospitalIn the event this information is protected by the Federal Confidentiality of Alcohol and Drug Abuse Patient Records regulations: The Federal rules restrict any use of the information to criminally investigate or prosecute any alcohol or drug abuse patient.[facility] HospitalIn the event this information is protected by the Federal Confidentiality of Alcohol and Drug Abuse Patient Records regulations: The Federal rules restrict any use of the information to criminally investigate or prosecute any alcohol or drug abuse patient.[facility] HospitalIn the event this information is protected by the Federal Confidentiality of Alcohol and Drug Abuse Patient Records regulations: The Federal rules restrict any use of the information to criminally investigate or prosecute any alcohol or drug abuse patient.[facility] HospitalIn the event this information is protected by the Federal Confidentiality of Alcohol and Drug Abuse Patient Records regulations: The Federal rules restrict any use of the information to criminally investigate or prosecute any alcohol or drug abuse patient.[facility] HospitalIn the event this information is protected by the Federal Confidentiality of Alcohol and Drug Abuse Patient Records regulations: The Federal rules restrict any use of the information to criminally investigate or prosecute any alcohol or drug abuse patient.[facility] HospitalIn the event this information is protected by the Federal Confidentiality of Alcohol and Drug Abuse Patient Records regulations: The Federal rules restrict any use of the information to criminally investigate or prosecute any alcohol or drug abuse patient.[facility] HospitalIn the event this information is protected by the Federal Confidentiality of Alcohol and Drug Abuse Patient Records regulations: The Federal rules restrict any use of the information to criminally investigate or prosecute any alcohol or drug abuse patient.[facility] HospitalIn the event this information is protected by the Federal Confidentiality of Alcohol and Drug Abuse Patient Records regulations: The Federal rules restrict any use of the information to criminally investigate or prosecute any alcohol or drug abuse patient.[facility] HospitalIn the event this information is protected by the Federal Confidentiality of Alcohol and Drug Abuse Patient Records regulations: The Federal rules restrict any use of the information to criminally investigate or prosecute any alcohol or drug abuse patient.[facility] HospitalIn the event this information is protected by the Federal Confidentiality of Alcohol and Drug Abuse Patient Records regulations: The Federal rules restrict any use of the information to criminally investigate or prosecute any alcohol or drug abuse patient.[facility] HospitalIn the event this information is protected by the Federal Confidentiality of Alcohol and Drug Abuse Patient Records regulations: The Federal rules restrict any use of the information to criminally investigate or prosecute any alcohol or drug abuse patient.[facility] HospitalIn the event this information is protected by the Federal Confidentiality of Alcohol and Drug Abuse Patient Records regulations: The Federal rules restrict any use of the information to criminally investigate or prosecute any alcohol or drug abuse patient.[facility] HospitalIn the event this information is protected by the Federal Confidentiality of Alcohol and Drug Abuse Patient Records regulations: The Federal rules restrict any use of the information to criminally investigate or prosecute any alcohol or drug abuse patient.[facility] HospitalIn the event this information is protected by the Federal Confidentiality of Alcohol and Drug Abuse Patient Records regulations: The Federal rules restrict any use of the information to criminally investigate or prosecute any alcohol or drug abuse patient.[facility] HospitalIn the event this information is protected by the Federal Confidentiality of Alcohol and Drug Abuse Patient Records regulations: The Federal rules restrict any use of the information to criminally investigate or prosecute any alcohol or drug abuse patient.[facility] HospitalIn the event this information is protected by the Federal Confidentiality of Alcohol and Drug Abuse Patient Records regulations: The Federal rules restrict any use of the information to criminally investigate or prosecute any alcohol or drug abuse patient.[facility] HospitalIn the event this information is protected by the Federal Confidentiality of Alcohol and Drug Abuse Patient Records regulations: The Federal rules restrict any use of the information to criminally investigate or prosecute any alcohol or drug abuse patient.[facility] HospitalIn the event this information is protected by the Federal Confidentiality of Alcohol and Drug Abuse Patient Records regulations: The Federal rules restrict any use of the information to criminally investigate or prosecute any alcohol or drug abuse patient.[facility] HospitalIn the event this information is protected by the Federal Confidentiality of Alcohol and Drug Abuse Patient Records regulations: The Federal rules restrict any use of the information to criminally investigate or prosecute any alcohol or drug abuse patient.[facility] HospitalIn the event this information is protected by the Federal Confidentiality of Alcohol and Drug Abuse Patient Records regulations: The Federal rules restrict any use of the information to criminally investigate or prosecute any alcohol or drug abuse patient.[facility] HospitalIn the event this information is protected by the Federal Confidentiality of Alcohol and Drug Abuse Patient Records regulations: The Federal rules restrict any use of the information to criminally investigate or prosecute any alcohol or drug abuse patient.[facility] HospitalIn the event this information is protected by the Federal Confidentiality of Alcohol and Drug Abuse Patient Records regulations: The Federal rules restrict any use of the information to criminally investigate or prosecute any alcohol or drug abuse patient.[facility] HospitalIn the event this information is protected by the Federal Confidentiality of Alcohol and Drug Abuse Patient Records regulations: The Federal rules restrict any use of the information to criminally investigate or prosecute any alcohol or drug abuse patient.[facility] HospitalIn the event this information is protected by the Federal Confidentiality of Alcohol and Drug Abuse Patient Records regulations: The Federal rules restrict any use of the information to criminally investigate or prosecute any alcohol or drug abuse patient.[facility] HospitalIn the event this information is protected by the Federal Confidentiality of Alcohol and Drug Abuse Patient Records regulations: The Federal rules restrict any use of the information to criminally investigate or prosecute any alcohol or drug abuse patient.[facility] HospitalIn the event this information is protected by the Federal Confidentiality of Alcohol and Drug Abuse Patient Records regulations: The Federal rules restrict any use of the information to criminally investigate or prosecute any alcohol or drug abuse patient.[facility] HospitalIn the event this information is protected by the Federal Confidentiality of Alcohol and Drug Abuse Patient Records regulations: The Federal rules restrict any use of the information to criminally investigate or prosecute any alcohol or drug abuse patient.[facility] HospitalIn the event this information is protected by the Federal Confidentiality of Alcohol and Drug Abuse Patient Records regulations: The Federal rules restrict any use of the information to criminally investigate or prosecute any alcohol or drug abuse patient.[facility] HospitalIn the event this information is protected by the Federal Confidentiality of Alcohol and Drug Abuse Patient Records regulations: The Federal rules restrict any use of the information to criminally investigate or prosecute any alcohol or drug abuse patient.[facility] HospitalIn the event this information is protected by the Federal Confidentiality of Alcohol and Drug Abuse Patient Records regulations: The Federal rules restrict any use of the information to criminally investigate or prosecute any alcohol or drug abuse patient.[facility] HospitalIn the event this information is protected by the Federal Confidentiality of Alcohol and Drug Abuse Patient Records regulations: The Federal rules restrict any use of the information to criminally investigate or prosecute any alcohol or drug abuse patient.[facility] HospitalIn the event this information is protected by the Federal Confidentiality of Alcohol and Drug Abuse Patient Records regulations: The Federal rules restrict any use of the information to criminally investigate or prosecute any alcohol or drug abuse patient.[facility] HospitalIn the event this information is protected by the Federal Confidentiality of Alcohol and Drug Abuse Patient Records regulations: The Federal rules restrict any use of the information to criminally investigate or prosecute any alcohol or drug abuse patient.[facility] HospitalIn the event this information is protected by the Federal Confidentiality of Alcohol and Drug Abuse Patient Records regulations: The Federal rules restrict any use of the information to criminally investigate or prosecute any alcohol or drug abuse patient.[facility] HospitalIn the event this information is protected by the Federal Confidentiality of Alcohol and Drug Abuse Patient Records regulations: The Federal rules restrict any use of the information to criminally investigate or prosecute any alcohol or drug abuse patient.[facility] HospitalIn the event this information is protected by the Federal Confidentiality of Alcohol and Drug Abuse Patient Records regulations: The Federal rules restrict any use of the information to criminally investigate or prosecute any alcohol or drug abuse patient.[facility] HospitalIn the event this information is protected by the Federal Confidentiality of Alcohol and Drug Abuse Patient Records regulations: The Federal rules restrict any use of the information to criminally investigate or prosecute any alcohol or drug abuse patient.[facility] HospitalIn the event this information is protected by the Federal Confidentiality of Alcohol and Drug Abuse Patient Records regulations: The Federal rules restrict any use of the information to criminally investigate or prosecute any alcohol or drug abuse patient.[facility] HospitalIn the event this information is protected by the Federal Confidentiality of Alcohol and Drug Abuse Patient Records regulations: The Federal rules restrict any use of the information to criminally investigate or prosecute any alcohol or drug abuse patient.[facility] HospitalIn the event this information is protected by the Federal Confidentiality of Alcohol and Drug Abuse Patient Records regulations: The Federal rules restrict any use of the information to criminally investigate or prosecute any alcohol or drug abuse patient.[facility] HospitalIn the event this information is protected by the Federal Confidentiality of Alcohol and Drug Abuse Patient Records regulations: The Federal rules restrict any use of the information to criminally investigate or prosecute any alcohol or drug abuse patient.[facility] HospitalIn the event this information is protected by the Federal Confidentiality of Alcohol and Drug Abuse Patient Records regulations: The Federal rules restrict any use of the information to criminally investigate or prosecute any alcohol or drug abuse patient.[facility] HospitalIn the event this information is protected by the Federal Confidentiality of Alcohol and Drug Abuse Patient Records regulations: The Federal rules restrict any use of the information to criminally investigate or prosecute any alcohol or drug abuse patient.[facility] HospitalIn the event this information is protected by the Federal Confidentiality of Alcohol and Drug Abuse Patient Records regulations: The Federal rules restrict any use of the information to criminally investigate or prosecute any alcohol or drug abuse patient.[facility] HospitalIn the event this information is protected by the Federal Confidentiality of Alcohol and Drug Abuse Patient Records regulations: The Federal rules restrict any use of the information to criminally investigate or prosecute any alcohol or drug abuse patient.[facility] HospitalIn the event this information is protected by the Federal Confidentiality of Alcohol and Drug Abuse Patient Records regulations: The Federal rules restrict any use of the information to criminally investigate or prosecute any alcohol or drug abuse patient.[facility] HospitalIn the event this information is protected by the Federal Confidentiality of Alcohol and Drug Abuse Patient Records regulations: The Federal rules restrict any use of the information to criminally investigate or prosecute any alcohol or drug abuse patient.[facility] HospitalIn the event this information is protected by the Federal Confidentiality of Alcohol and Drug Abuse Patient Records regulations: The Federal rules restrict any use of the information to criminally investigate or prosecute any alcohol or drug abuse patient.[facility] HospitalIn the event this information is protected by the Federal Confidentiality of Alcohol and Drug Abuse Patient Records regulations: The Federal rules restrict any use of the information to criminally investigate or prosecute any alcohol or drug abuse patient.[facility] HospitalIn the event this information is protected by the Federal Confidentiality of Alcohol and Drug Abuse Patient Records regulations: The Federal rules restrict any use of the information to criminally investigate or prosecute any alcohol or drug abuse patient.[facility] HospitalIn the event this information is protected by the Federal Confidentiality of Alcohol and Drug Abuse Patient Records regulations: The Federal rules restrict any use of the information to criminally investigate or prosecute any alcohol or drug abuse patient.[facility] HospitalIn the event this information is protected by the Federal Confidentiality of Alcohol and Drug Abuse Patient Records regulations: The Federal rules restrict any use of the information to criminally investigate or prosecute any alcohol or drug abuse patient.[facility] HospitalIn the event this information is protected by the Federal Confidentiality of Alcohol and Drug Abuse Patient Records regulations: The Federal rules restrict any use of the information to criminally investigate or prosecute any alcohol or drug abuse patient.[facility] HospitalIn the event this information is protected by the Federal Confidentiality of Alcohol and Drug Abuse Patient Records regulations: The Federal rules restrict any use of the information to criminally investigate or prosecute any alcohol or drug abuse patient.[facility] HospitalIn the event this information is protected by the Federal Confidentiality of Alcohol and Drug Abuse Patient Records regulations: The Federal rules restrict any use of the information to criminally investigate or prosecute any alcohol or drug abuse patient.[facility] HospitalIn the event this information is protected by the Federal Confidentiality of Alcohol and Drug Abuse Patient Records regulations: The Federal rules restrict any use of the information to criminally investigate or prosecute any alcohol or drug abuse patient.[facility] HospitalIn the event this information is protected by the Federal Confidentiality of Alcohol and Drug Abuse Patient Records regulations: The Federal rules restrict any use of the information to criminally investigate or prosecute any alcohol or drug abuse patient.[facility] HospitalIn the event this information is protected by the Federal Confidentiality of Alcohol and Drug Abuse Patient Records regulations: The Federal rules restrict any use of the information to criminally investigate or prosecute any alcohol or drug abuse patient.[facility] HospitalIn the event this information is protected by the Federal Confidentiality of Alcohol and Drug Abuse Patient Records regulations: The Federal rules restrict any use of the information to criminally investigate or prosecute any alcohol or drug abuse patient.[facility] HospitalIn the event this information is protected by the Federal Confidentiality of Alcohol and Drug Abuse Patient Records regulations: The Federal rules restrict any use of the information to criminally investigate or prosecute any alcohol or drug abuse patient.[facility] HospitalIn the event this information is protected by the Federal Confidentiality of Alcohol and Drug Abuse Patient Records regulations: The Federal rules restrict any use of the information to criminally investigate or prosecute any alcohol or drug abuse patient.[facility] HospitalIn the event this information is protected by the Federal Confidentiality of Alcohol and Drug Abuse Patient Records regulations: The Federal rules restrict any use of the information to criminally investigate or prosecute any alcohol or drug abuse patient.[facility] HospitalIn the event this information is protected by the Federal Confidentiality of Alcohol and Drug Abuse Patient Records regulations: The Federal rules restrict any use of the information to criminally investigate or prosecute any alcohol or drug abuse patient.[facility] HospitalIn the event this information is protected by the Federal Confidentiality of Alcohol and Drug Abuse Patient Records regulations: The Federal rules restrict any use of the information to criminally investigate or prosecute any alcohol or drug abuse patient.[facility] HospitalIn the event this information is protected by the Federal Confidentiality of Alcohol and Drug Abuse Patient Records regulations: The Federal rules restrict any use of the information to criminally investigate or prosecute any alcohol or drug abuse patient.[facility] HospitalIn the event this information is protected by the Federal Confidentiality of Alcohol and Drug Abuse Patient Records regulations: The Federal rules restrict any use of the information to criminally investigate or prosecute any alcohol or drug abuse patient.[facility] HospitalIn the event this information is protected by the Federal Confidentiality of Alcohol and Drug Abuse Patient Records regulations: The Federal rules restrict any use of the information to criminally investigate or prosecute any alcohol or drug abuse patient.[facility] HospitalIn the event this information is protected by the Federal Confidentiality of Alcohol and Drug Abuse Patient Records regulations: The Federal rules restrict any use of the information to criminally investigate or prosecute any alcohol or drug abuse patient.[facility] HospitalIn the event this information is protected by the Federal Confidentiality of Alcohol and Drug Abuse Patient Records regulations: The Federal rules restrict any use of the information to criminally investigate or prosecute any alcohol or drug abuse patient.[facility] HospitalIn the event this information is protected by the Federal Confidentiality of Alcohol and Drug Abuse Patient Records regulations: The Federal rules restrict any use of the information to criminally investigate or prosecute any alcohol or drug abuse patient.[facility] HospitalIn the event this information is protected by the Federal Confidentiality of Alcohol and Drug Abuse Patient Records regulations: The Federal rules restrict any use of the information to criminally investigate or prosecute any alcohol or drug abuse patient.[facility] HospitalIn the event this information is protected by the Federal Confidentiality of Alcohol and Drug Abuse Patient Records regulations: The Federal rules restrict any use of the information to criminally investigate or prosecute any alcohol or drug abuse patient.[facility] HospitalIn the event this information is protected by the Federal Confidentiality of Alcohol and Drug Abuse Patient Records regulations: The Federal rules restrict any use of the information to criminally investigate or prosecute any alcohol or drug abuse patient.[facility] HospitalIn the event this information is protected by the Federal Confidentiality of Alcohol and Drug Abuse Patient Records regulations: The Federal rules restrict any use of the information to criminally investigate or prosecute any alcohol or drug abuse patient.[facility] HospitalIn the event this information is protected by the Federal Confidentiality of Alcohol and Drug Abuse Patient Records regulations: The Federal rules restrict any use of the information to criminally investigate or prosecute any alcohol or drug abuse patient.[facility] HospitalIn the event this information is protected by the Federal Confidentiality of Alcohol and Drug Abuse Patient Records regulations: The Federal rules restrict any use of the information to criminally investigate or prosecute any alcohol or drug abuse patient.[facility] HospitalIn the event this information is protected by the Federal Confidentiality of Alcohol and Drug Abuse Patient Records regulations: The Federal rules restrict any use of the information to criminally investigate or prosecute any alcohol or drug abuse patient.[facility] HospitalIn the event this information is protected by the Federal Confidentiality of Alcohol and Drug Abuse Patient Records regulations: The Federal rules restrict any use of the information to criminally investigate or prosecute any alcohol or drug abuse patient.[facility] HospitalIn the event this information is protected by the Federal Confidentiality of Alcohol and Drug Abuse Patient Records regulations: The Federal rules restrict any use of the information to criminally investigate or prosecute any alcohol or drug abuse patient.[facility] HospitalIn the event this information is protected by the Federal Confidentiality of Alcohol and Drug Abuse Patient Records regulations: The Federal rules restrict any use of the information to criminally investigate or prosecute any alcohol or drug abuse patient.[facility] HospitalIn the event this information is protected by the Federal Confidentiality of Alcohol and Drug Abuse Patient Records regulations: The Federal rules restrict any use of the information to criminally investigate or prosecute any alcohol or drug abuse patient.[facility] HospitalIn the event this information is protected by the Federal Confidentiality of Alcohol and Drug Abuse Patient Records regulations: The Federal rules restrict any use of the information to criminally investigate or prosecute any alcohol or drug abuse patient.[facility] HospitalIn the event this information is protected by the Federal Confidentiality of Alcohol and Drug Abuse Patient Records regulations: The Federal rules restrict any use of the information to criminally investigate or prosecute any alcohol or drug abuse patient.[facility] HospitalIn the event this information is protected by the Federal Confidentiality of Alcohol and Drug Abuse Patient Records regulations: The Federal rules restrict any use of the information to criminally investigate or prosecute any alcohol or drug abuse patient.[facility] HospitalIn the event this information is protected by the Federal Confidentiality of Alcohol and Drug Abuse Patient Records regulations: The Federal rules restrict any use of the information to criminally investigate or prosecute any alcohol or drug abuse patient.[facility] HospitalIn the event this information is protected by the Federal Confidentiality of Alcohol and Drug Abuse Patient Records regulations: The Federal rules restrict any use of the information to criminally investigate or prosecute any alcohol or drug abuse patient.[facility] HospitalIn the event this information is protected by the Federal Confidentiality of Alcohol and Drug Abuse Patient Records regulations: The Federal rules restrict any use of the information to criminally investigate or prosecute any alcohol or drug abuse patient.[facility] HospitalIn the event this information is protected by the Federal Confidentiality of Alcohol and Drug Abuse Patient Records regulations: The Federal rules restrict any use of the information to criminally investigate or prosecute any alcohol or drug abuse patient.[facility] HospitalIn the event this information is protected by the Federal Confidentiality of Alcohol and Drug Abuse Patient Records regulations: The Federal rules restrict any use of the information to criminally investigate or prosecute any alcohol or drug abuse patient.[facility] HospitalIn the event this information is protected by the Federal Confidentiality of Alcohol and Drug Abuse Patient Records regulations: The Federal rules restrict any use of the information to criminally investigate or prosecute any alcohol or drug abuse patient.[facility] HospitalIn the event this information is protected by the Federal Confidentiality of Alcohol and Drug Abuse Patient Records regulations: The Federal rules restrict any use of the information to criminally investigate or prosecute any alcohol or drug abuse patient.[facility] HospitalIn the event this information is protected by the Federal Confidentiality of Alcohol and Drug Abuse Patient Records regulations: The Federal rules restrict any use of the information to criminally investigate or prosecute any alcohol or drug abuse patient.[facility] HospitalIn the event this information is protected by the Federal Confidentiality of Alcohol and Drug Abuse Patient Records regulations: The Federal rules restrict any use of the information to criminally investigate or prosecute any alcohol or drug abuse patient.[facility] HospitalIn the event this information is protected by the Federal Confidentiality of Alcohol and Drug Abuse Patient Records regulations: The Federal rules restrict any use of the information to criminally investigate or prosecute any alcohol or drug abuse patient.[facility] HospitalIn the event this information is protected by the Federal Confidentiality of Alcohol and Drug Abuse Patient Records regulations: The Federal rules restrict any use of the information to criminally investigate or prosecute any alcohol or drug abuse patient.[facility] HospitalIn the event this information is protected by the Federal Confidentiality of Alcohol and Drug Abuse Patient Records regulations: The Federal rules restrict any use of the information to criminally investigate or prosecute any alcohol or drug abuse patient.[facility] HospitalIn the event this information is protected by the Federal Confidentiality of Alcohol and Drug Abuse Patient Records regulations: The Federal rules restrict any use of the information to criminally investigate or prosecute any alcohol or drug abuse patient.[facility] HospitalIn the event this information is protected by the Federal Confidentiality of Alcohol and Drug Abuse Patient Records regulations: The Federal rules restrict any use of the information to criminally investigate or prosecute any alcohol or drug abuse patient.[facility] HospitalIn the event this information is protected by the Federal Confidentiality of Alcohol and Drug Abuse Patient Records regulations: The Federal rules restrict any use of the information to criminally investigate or prosecute any alcohol or drug abuse patient.[facility] HospitalIn the event this information is protected by the Federal Confidentiality of Alcohol and Drug Abuse Patient Records regulations: The Federal rules restrict any use of the information to criminally investigate or prosecute any alcohol or drug abuse patient.[facility] HospitalIn the event this information is protected by the Federal Confidentiality of Alcohol and Drug Abuse Patient Records regulations: The Federal rules restrict any use of the information to criminally investigate or prosecute any alcohol or drug abuse patient.[facility] HospitalIn the event this information is protected by the Federal Confidentiality of Alcohol and Drug Abuse Patient Records regulations: The Federal rules restrict any use of the information to criminally investigate or prosecute any alcohol or drug abuse patient.[facility] HospitalIn the event this information is protected by the Federal Confidentiality of Alcohol and Drug Abuse Patient Records regulations: The Federal rules restrict any use of the information to criminally investigate or prosecute any alcohol or drug abuse patient.[facility] HospitalIn the event this information is protected by the Federal Confidentiality of Alcohol and Drug Abuse Patient Records regulations: The Federal rules restrict any use of the information to criminally investigate or prosecute any alcohol or drug abuse patient.[facility] HospitalIn the event this information is protected by the Federal Confidentiality of Alcohol and Drug Abuse Patient Records regulations: The Federal rules restrict any use of the information to criminally investigate or prosecute any alcohol or drug abuse patient.[facility] HospitalIn the event this information is protected by the Federal Confidentiality of Alcohol and Drug Abuse Patient Records regulations: The Federal rules restrict any use of the information to criminally investigate or prosecute any alcohol or drug abuse patient.[facility] HospitalIn the event this information is protected by the Federal Confidentiality of Alcohol and Drug Abuse Patient Records regulations: The Federal rules restrict any use of the information to criminally investigate or prosecute any alcohol or drug abuse patient.[facility] HospitalIn the event this information is protected by the Federal Confidentiality of Alcohol and Drug Abuse Patient Records regulations: The Federal rules restrict any use of the information to criminally investigate or prosecute any alcohol or drug abuse patient.[facility] HospitalIn the event this information is protected by the Federal Confidentiality of Alcohol and Drug Abuse Patient Records regulations: The Federal rules restrict any use of the information to criminally investigate or prosecute any alcohol or drug abuse patient.[facility] HospitalIn the event this information is protected by the Federal Confidentiality of Alcohol and Drug Abuse Patient Records regulations: The Federal rules restrict any use of the information to criminally investigate or prosecute any alcohol or drug abuse patient.[facility] HospitalIn the event this information is protected by the Federal Confidentiality of Alcohol and Drug Abuse Patient Records regulations: The Federal rules restrict any use of the information to criminally investigate or prosecute any alcohol or drug abuse patient.[facility] HospitalIn the event this information is protected by the Federal Confidentiality of Alcohol and Drug Abuse Patient Records regulations: The Federal rules restrict any use of the information to criminally investigate or prosecute any alcohol or drug abuse patient.[facility] HospitalIn the event this information is protected by the Federal Confidentiality of Alcohol and Drug Abuse Patient Records regulations: The Federal rules restrict any use of the information to criminally investigate or prosecute any alcohol or drug abuse patient.[facility] HospitalIn the event this information is protected by the Federal Confidentiality of Alcohol and Drug Abuse Patient Records regulations: The Federal rules restrict any use of the information to criminally investigate or prosecute any alcohol or drug abuse patient.[facility] HospitalIn the event this information is protected by the Federal Confidentiality of Alcohol and Drug Abuse Patient Records regulations: The Federal rules restrict any use of the information to criminally investigate or prosecute any alcohol or drug abuse patient.[facility] HospitalIn the event this information is protected by the Federal Confidentiality of Alcohol and Drug Abuse Patient Records regulations: The Federal rules restrict any use of the information to criminally investigate or prosecute any alcohol or drug abuse patient.[facility] HospitalIn the event this information is protected by the Federal Confidentiality of Alcohol and Drug Abuse Patient Records regulations: The Federal rules restrict any use of the information to criminally investigate or prosecute any alcohol or drug abuse patient.[facility] HospitalIn the event this information is protected by the Federal Confidentiality of Alcohol and Drug Abuse Patient Records regulations: The Federal rules restrict any use of the information to criminally investigate or prosecute any alcohol or drug abuse patient.[facility] HospitalIn the event this information is protected by the Federal Confidentiality of Alcohol and Drug Abuse Patient Records regulations: The Federal rules restrict any use of the information to criminally investigate or prosecute any alcohol or drug abuse patient.[facility] HospitalIn the event this information is protected by the Federal Confidentiality of Alcohol and Drug Abuse Patient Records regulations: The Federal rules restrict any use of the information to criminally investigate or prosecute any alcohol or drug abuse patient.[facility] HospitalIn the event this information is protected by the Federal Confidentiality of Alcohol and Drug Abuse Patient Records regulations: The Federal rules restrict any use of the information to criminally investigate or prosecute any alcohol or drug abuse patient.[facility] HospitalIn the event this information is protected by the Federal Confidentiality of Alcohol and Drug Abuse Patient Records regulations: The Federal rules restrict any use of the information to criminally investigate or prosecute any alcohol or drug abuse patient.[facility] HospitalIn the event this information is protected by the Federal Confidentiality of Alcohol and Drug Abuse Patient Records regulations: The Federal rules restrict any use of the information to criminally investigate or prosecute any alcohol or drug abuse patient.[facility] HospitalIn the event this information is protected by the Federal Confidentiality of Alcohol and Drug Abuse Patient Records regulations: The Federal rules restrict any use of the information to criminally investigate or prosecute any alcohol or drug abuse patient.[facility] HospitalIn the event this information is protected by the Federal Confidentiality of Alcohol and Drug Abuse Patient Records regulations: The Federal rules restrict any use of the information to criminally investigate or prosecute any alcohol or drug abuse patient.[facility] HospitalIn the event this information is protected by the Federal Confidentiality of Alcohol and Drug Abuse Patient Records regulations: The Federal rules restrict any use of the information to criminally investigate or prosecute any alcohol or drug abuse patient.[facility] HospitalIn the event this information is protected by the Federal Confidentiality of Alcohol and Drug Abuse Patient Records regulations: The Federal rules restrict any use of the information to criminally investigate or prosecute any alcohol or drug abuse patient.[facility] HospitalIn the event this information is protected by the Federal Confidentiality of Alcohol and Drug Abuse Patient Records regulations: The Federal rules restrict any use of the information to criminally investigate or prosecute any alcohol or drug abuse patient.[facility] HospitalIn the event this information is protected by the Federal Confidentiality of Alcohol and Drug Abuse Patient Records regulations: The Federal rules restrict any use of the information to criminally investigate or prosecute any alcohol or drug abuse patient.[facility] HospitalIn the event this information is protected by the Federal Confidentiality of Alcohol and Drug Abuse Patient Records regulations: The Federal rules restrict any use of the information to criminally investigate or prosecute any alcohol or drug abuse patient.[facility] HospitalIn the event this information is protected by the Federal Confidentiality of Alcohol and Drug Abuse Patient Records regulations: The Federal rules restrict any use of the information to criminally investigate or prosecute any alcohol or drug abuse patient.[facility] HospitalIn the event this information is protected by the Federal Confidentiality of Alcohol and Drug Abuse Patient Records regulations: The Federal rules restrict any use of the information to criminally investigate or prosecute any alcohol or drug abuse patient.[facility] HospitalIn the event this information is protected by the Federal Confidentiality of Alcohol and Drug Abuse Patient Records regulations: The Federal rules restrict any use of the information to criminally investigate or prosecute any alcohol or drug abuse patient.[facility] HospitalIn the event this information is protected by the Federal Confidentiality of Alcohol and Drug Abuse Patient Records regulations: The Federal rules restrict any use of the information to criminally investigate or prosecute any alcohol or drug abuse patient.[facility] HospitalIn the event this information is protected by the Federal Confidentiality of Alcohol and Drug Abuse Patient Records regulations: The Federal rules restrict any use of the information to criminally investigate or prosecute any alcohol or drug abuse patient.[facility] HospitalIn the event this information is protected by the Federal Confidentiality of Alcohol and Drug Abuse Patient Records regulations: The Federal rules restrict any use of the information to criminally investigate or prosecute any alcohol or drug abuse patient.[facility] HospitalIn the event this information is protected by the Federal Confidentiality of Alcohol and Drug Abuse Patient Records regulations: The Federal rules restrict any use of the information to criminally investigate or prosecute any alcohol or drug abuse patient.[facility] HospitalIn the event this information is protected by the Federal Confidentiality of Alcohol and Drug Abuse Patient Records regulations: The Federal rules restrict any use of the information to criminally investigate or prosecute any alcohol or drug abuse patient.[facility] HospitalIn the event this information is protected by the Federal Confidentiality of Alcohol and Drug Abuse Patient Records regulations: The Federal rules restrict any use of the information to criminally investigate or prosecute any alcohol or drug abuse patient.[facility] HospitalIn the event this information is protected by the Federal Confidentiality of Alcohol and Drug Abuse Patient Records regulations: The Federal rules restrict any use of the information to criminally investigate or prosecute any alcohol or drug abuse patient.[facility] HospitalIn the event this information is protected by the Federal Confidentiality of Alcohol and Drug Abuse Patient Records regulations: The Federal rules restrict any use of the information to criminally investigate or prosecute any alcohol or drug abuse patient.[facility] HospitalIn the event this information is protected by the Federal Confidentiality of Alcohol and Drug Abuse Patient Records regulations: The Federal rules restrict any use of the information to criminally investigate or prosecute any alcohol or drug abuse patient.[facility] HospitalIn the event this information is protected by the Federal Confidentiality of Alcohol and Drug Abuse Patient Records regulations: The Federal rules restrict any use of the information to criminally investigate or prosecute any alcohol or drug abuse patient.[facility] HospitalIn the event this information is protected by the Federal Confidentiality of Alcohol and Drug Abuse Patient Records regulations: The Federal rules restrict any use of the information to criminally investigate or prosecute any alcohol or drug abuse patient.[facility] HospitalIn the event this information is protected by the Federal Confidentiality of Alcohol and Drug Abuse Patient Records regulations: The Federal rules restrict any use of the information to criminally investigate or prosecute any alcohol or drug abuse patient.[facility] HospitalIn the event this information is protected by the Federal Confidentiality of Alcohol and Drug Abuse Patient Records regulations: The Federal rules restrict any use of the information to criminally investigate or prosecute any alcohol or drug abuse patient.[facility] Reason for Visit (unrecogniz ed section and content) Reason Onset Date Comments Refill Request 09/17/2021 Reason Comments F/U 6 Month Reason Onset Date Comments Refill Request 09/19/2021 Reason Comments Results Reason Comments episode of confusion had one episode on Sun while at a restaurant Reason Comments Results Reason Comments Follow Up routine Reason Comments Recheck Memory Reason Onset Date Comments Results 04/16/2022 Reason Comments LESION, SKIN Reason Onset Date Comments Refill Request 06/27/2022 Reason Comments Follow Up Reason Comments Medication Problem Reason Comments Follow Up Wound Fallon Reason Comments [facility] ER- fall/hit head Reason Comments ER F/U Pamjuan luis Adam ER FU 08/01/22 Reason Comments Patient Update Bradycardic Reason Onset Date Comments Refill Request 09/17/2022 Reason Comments Follow Up svt Reason Comments F/U 6 months Reason Comments supplement question Reason Comments Refill Request Reason Comments wifes concerns Reason Onset Date Comments Refill Request 11/26/2022 Reason Comments ER F/U [facility] 11/29/22 Reason Comments Established Patient Follow-Up ER visit f ollow up - [place] 11/29/22 - Pt couldn't stay awakeOngoing fatigue and lightheadednessEKG read out: Normal sinus rhythm with 1st degree A-V block Minimal voltage criteria for LVH, may be normal variant ( R in aVL Inferior infarct , age undetermined Abnormal ECG Pt normally sees Dr. Jose in [facility], EKG, ECHO, Holter monitor in last year Reason Comments Patient Update Reason Onset Date Comments Refill Request 03/02/2023 Reason Comments Pain (foot) L foot pain x2 days, fell, unsure of injury to foot Reason Comments Orders Reason Comments LESION, SKIN Medicare Wellness Exam Reason Comments Results Reason Comments Established Patient Follow-Up Reason Comments Radiology CT Specialty Diagnoses / Procedures Referred By Contac t Referred To Contact CT IMAGING Diagnoses Lung nodules Procedures CT CHEST WO IVCON DIAGNOSTIC COMPUTED TOMOGRAPHY THORAX W/O Phoebe Pak PA-C [id number] [facility] [place] [address] Referral ID Status Reason Start Date Expiration Date V isits Requested Visits Authorized [id number] Closed Auto-Generate d Referral 08/06/2022 09/05/2023 1 1 Reason Comments Rash Sore areas with rash on both sides of scrotum area and sides around lower abdomen Reason Comments Pain Reason Onset Date Comments Refill Request 07/31/2023 Reason Comments Benign Prostatic Hypertrophy Reason Comments Medication Problem Too expensive Reason Comments Cystoscopy-1 Reason Comments Benign Prostatic Hypertrophy Bladder Cancer Reason Comments 6 Month Exam Reason Onset Date Comments Refill Request 10/21/2023 Reason Comments Follow Up Reason Comments requesting prescription for a walker Reason Comments Outside ED Reason Comments Rash Rash under bilateral breasts x 1 week Reason Onset Date Comments Refill Request 01/01/2024 Reason Comments ED Follow-up Reason Comments Rash Reason Comments Radiology [place] Specialty Diagnoses / Procedures Referred By Contac t Referred To Contact MOLECULAR & FUNCTIONAL IMAGING Diagnoses Right upper quadrant abdominal pain Gall bladder stones Calculus of gallbladder without cholecystitis without obstruction Procedures NM HEPATOBILIARY W EF AND/OR RX HEPATOBIL SYST IMAG INC GB W/PHARMA INTERVENJose Gutierres MD [address] [place] [address] Molecular & Functional Imaging [address] [place] [address] Referral ID Status Reason Start Date Expiration Date V isits Requested Visits Authorized [id number] Closed Auto-Generate d Referral 01/16/2024 06/22/2024 1 1 Reason Comments Follow Up rash Reason Comments Consult Gallstones Specialty Diagnoses / Procedures Referred By Contac t Referred To Contact General Surgery Diagnoses Right upper quadrant abdominal pain Gall bladder stones Procedures CONSULT TO GENERAL SURGERY OFFICE/OUTPATIENT NEW HIGH MDM 60 MINUTES Jose Fam MD [address] [place] [address] Referral ID Status Reason Start Date Expiration Date V isits Requested Visits Authorized [id number] Closed PCP Requested Referral 01/07/2024 01/06/2025 1 1 Reason Comments Rx refill; question Reason Comments New Patient Surgical clearance Reason Onset Date Comments Refill Request 03/29/2024 Reason Comments Medicare Wellness Exam Reason Comments Patient Question Reason Comments ER Discharge Summary H&P Reason Comments Hospital F/U Reason Onset Date Comments Refill Request 04/20/2024 Reason Comments Outside H&P Reason Comments ER Discharge Summary Reason Comments Outside Cardiology Reason Comments ER F/U fall Reason Comments Radiology US Specialty Diagnoses / [facility] Diagnoses Localized swelling of left lower leg Procedures US DVT LOWER LEFT DUP-SCAN XTR VEINS UNILATERAL/LIMITED STUDY Valerie Deshpande APRN.INTEGRATED CIRCUIT DESIGN ENGINEER [address] [place] [address] [place] [address] Referral ID Status Reason Start Date Expiration Date V isits Requested Visits Authorized [id number] Closed Auto-Generate d Referral 06/22/2024 07/22/2025 1 1 Reason Comments Outside [id number] Ordered Imaging Reason Onset Date Comments Refill Request 07/02/2024 Reason Comments Outside Cardiac Procedure Pacemaker Plac ement Reason Comments Consult Outside Cardiology - [facility] Reason Comments Outside Discharge Summary Reason Comments Procedure [facility] Reason Comments Outside EGD GI Consultation, H&P Reason Comments Outside Imaging Reason Comments Outside Imaging Venous Duplex US Reason Comments Results Outside US - [facility] Reason Comments [facility] agree to follow Reason Onset Date Comments Transition Of Care 09/06/[address] [facility] SN POC Reason Comments Physical Therapy Plan of Care Reason Comments Consult Outside procedure - esophageal/PT/OT Reason Comments [facility] OT POC Reason Onset Date Comments Population Health Navigation Outreach 09/14/2024 [employer] [place] Reason Comments Transition Of Care Reason Onset Date Comments Results 09/15/2024 Reason Comments medication clarification Reason Onset Date Comments Refill Request 10/04/2024 Reason Comments 6 Month Exam Reason Comments Follow Up Reason Onset Date Comments Results 10/25/2024 Reason Comments Wheezing sob, cough x yesterd ay after mowing yard Reason Comments ER F/U [facility] Reason Onset Date Comments Population Health Navigation Outreach 11/02/2024 Healthy @ [facility] Reason Onset Date Comments Care Coordination 11/03/2024 Reason Onset Date Comments Transition Of Care 11/03/2024 Initial Outre ach ( Discharge 10/31/24 [facility] OON) Reason Comments Outside Urology Reason Comments Insurance Authorization Reason Onset Date Comments Results 11/17/2024 Reason Comments patient question/testing Care Teams (unrecognized sec tion and content) Zipper Slide Attacher Relationship Specialty Start Date End Date Jose Fam MD [address] [place] [address] PCP - General Family Practice 08/01/14 Zipper Slide Attacher Relationship Specialty Start Date End Date Jose Fam MD [address] [place] [address] PCP - General Family Practice 08/01/14 Zipper Slide Attacher Relationship Specialty Start Date End Date Jose Fam MD [address] [facility] [place] [address] PCP - General Family Practice 08/01/14 Zipper Slide Attacher Relationship Specialty Start Date End Date Jose Fam MD [address] [facility] [place] [address] PCP - General Family Practice 08/01/14 Zipper Slide Attacher Relationship Specialty Start Date End Date Jose Fam MD [facility] [place] [place] [address] PCP - General Family Practice 08/01/14 Zipper Slide Attacher Relationship Specialty Start Date End Date Jose Fam MD [address] [place] [address] PCP - General Family Practice 08/01/14 Zipper Slide Attacher Relationship Specialty Start Date End Date Jose Fam MD [address] [place] [address] PCP - General Family Practice 08/01/14 Zipper Slide Attacher Relationship Specialty Start Date End Date Jose Fam MD [address] [place] [address] PCP - General Family Practice 08/01/14 Zipper Slide Attacher Relationship Specialty Start Date End Date Jose Fam MD [facility] [place] [address] PCP - General Family Practice 08/01/14 Zipper Slide Attacher Relationship Specialty Start Date End Date Jose Fam MD [address] [place] [id number] PCP - General Family Practice 08/01/14 Zipper Slide Attacher Relationship Specialty Start Date End Date Jose Fam MD [facility] [place] [address] PCP - General Family Medicine 08/01/14 Zipper Slide Attacher Relationship Specialty Start Date End Date Jose Fam MD [facility] [place] [address] PCP - General Family Medicine 08/01/14 Zipper Slide Attacher Relationship Specialty Start Date End Date Jose Fam MD [facility] [place] [address] PCP - General Family Medicine 08/01/14 Zipper Slide Attacher Relationship Specialty Start Date End Date Jose Fam MD [address] [place] [address] [place] [address] PCP - General Family Medicine 08/01/14 Zipper Slide Attacher Relationship Specialty Start Date End Date Jose Fam MD [address] [place] [address] PCP - General Family Medicine 08/01/14 Zipper Slide Attacher Relationship Specialty Start Date End Date Jose Fam MD [address] [place] [address] PCP - General Family Medicine 08/01/14 Zipper Slide Attacher Relationship Specialty Start Date End Date Jose Fam MD [facility] [place] [address] PCP - General Family Medicine 08/01/14 Zipper Slide Attacher Relationship Specialty Start Date End Date Joes Fam MD [facility] [place] [address] PCP - General Family Medicine 08/01/14 Zipper Slide Attacher Relationship Specialty Start Date End Date Jose Fam MD [facility] [place] [address] PCP - General Family Medicine 08/01/14 Zipper Slide Attacher Relationship Specialty Start Date End Date Jose Fam MD [facility] [place] [address] PCP - General Family Medicine 08/01/14 Zipper Slide Attacher Relationship Specialty Start Date End Date Jose Fam MD [facility] [place] [address] PCP - General Family Medicine 08/01/14 Zipper Slide Attacher Relationship Specialty Start Date End Date Jose Fam MD [facility] [place] [address] PCP - General Family Medicine 08/01/14 Zipper Slide Attacher Relationship Specialty Start Date End Date Jose Fam MD [facility] [place] [address] PCP - General Family Medicine 08/01/14 Zipper Slide Attacher Relationship Specialty Start Date End Date Jose Fam MD [address] [place] [address] PCP - General Family Medicine 08/01/14 Team Status: Active Member Role Status Dates Dr. Jose Fam MD Family Provider Active Dr. Jose Fam MD Primary Care Provider Active Team Status: Inactive Member Role Status Dates Dr. Jose Fam MD Primary Care Provider Active Dr. Jonh Flores DO Emergency Provider Active Zipper Slide Attacher Relationship Specialty Start Date End Date Jose Fam MD [address] [place] [address] PCP - General Family Medicine 08/01/14 Zipper Slide Attacher Relationship Specialty Start Date End Date Jose Fam MD [address] [place] [address] PCP - General Family Medicine 08/01/14 Zipper Slide Attacher Relationship Specialty Start Date End Date Jose Fam MD [address] [place] [address] PCP - General Family Medicine 08/01/14 Zipper Slide Attacher Relationship Specialty Start Date End Date Jose Fam MD [address] [place] [address] PCP - General Family Medicine 08/01/14 Zipper Slide Attacher Relationship Specialty Start Date End Date Jose Fam MD [address] [place] [address] PCP - General Family Medicine 08/01/14 Zipper Slide Attacher Relationship Specialty Start Date End Date Jose Fam MD [address] [place] [address] PCP - General Family Medicine 08/01/14 Zipper Slide Attacher Relationship Specialty Start Date End Date Jose Fam MD [address] [place] [address] PCP - General Family Medicine 08/01/14 Zipper Slide Attacher Relationship Specialty Start Date End Date Jose Fam MD [address] [place] [address] PCP - General Family Medicine 08/01/14 Zipper Slide Attacher Relationship Specialty Start Date End Date Jose Fam MD [address] [place] [address] PCP - General Family Medicine 08/01/14 Zipper Slide Attacher Relationship Specialty Start Date End Date Jose Fam MD [address] [place] [address] PCP - General Family Medicine 08/01/14 Zipper Slide Attacher Relationship Specialty Start Date End Date Jose Fam MD [address] [place] [address] PCP - General Family Medicine 08/01/14 Zipper Slide Attacher Relationship Specialty Start Date End Date Jose Fam MD [address] [place] [address] PCP - General Family Medicine 08/01/14 Zipper Slide Attacher Relationship Specialty Start Date End Date Jose Fam MD [address] [place] [address] PCP - General Family Medicine 08/01/14 Zipper Slide Attacher Relationship Specialty Start Date End Date Jose Fam MD [address] [place] [address] PCP - General Family Medicine 08/01/14 Zipper Slide Attacher Relationship Specialty Start Date End Date Jose Fam MD [address] [place] [address] PCP - General Family Medicine 08/01/14 Zipper Slide Attacher Relationship Specialty Start Date End Date Jose Fam MD [address] [place] [address] PCP - General Family Medicine 08/01/14 Zipper Slide Attacher Relationship Specialty Start Date End Date Jose Fam MD [address] [place] [address] PCP - General Family Medicine 08/01/14 Zipper Slide Attacher Relationship Specialty Start Date End Date Jose Fam MD [address] [place] [address] PCP - General Family Medicine 08/01/14 Zipper Slide Attacher Relationship Specialty Start Date End Date Jose Fam MD [address] [place] [address] PCP - General Family Medicine 08/01/14 Zipper Slide Attacher Relationship Specialty Start Date End Date Jose Fam MD [address] [place] [address] PCP - General Family Medicine 08/01/14 Zipper Slide Attacher Relationship Specialty Start Date End Date Jose Fam MD [address] [place] [address] PCP - General Family Medicine 08/01/14 Zipper Slide Attacher Relationship Specialty Start Date End Date Jose Fam MD [address] [place] [address] PCP - General Family Medicine 08/01/14 Zipper Slide Attacher Relationship Specialty Start Date End Date Jose Fam MD [address] [place] [address] PCP - General Family Medicine 08/01/14 Zipper Slide Attacher Relationship Specialty Start Date End Date Jose Fam MD [address] [place] [address] PCP - General Family Medicine 08/01/14 Zipper Slide Attacher Relationship Specialty Start Date End Date Jose Fam MD [address] [place] [address] PCP - General Family Medicine 08/01/14 Zipper Slide Attacher Relationship Specialty Start Date End Date Jose Fam MD [address] [place] [address] PCP - General Family Medicine 08/01/14 Zipper Slide Attacher Relationship Specialty Start Date End Date Jose Fam MD [address] [place] [address] PCP - General Family Medicine 08/01/14 Zipper Slide Attacher Relationship Specialty Start Date End Date Jose Fam MD [address] [place] [address] PCP - General Family Medicine 08/01/14 Zipper Slide Attacher Relationship Specialty Start Date End Date Jose Fam MD [address] [place] [address] PCP - General Family Medicine 08/01/14 Zipper Slide Attacher Relationship Specialty Start Date End Date Jose Fam MD [address] [place] [address] PCP - General Family Medicine 08/01/14 Zipper Slide Attacher Relationship Specialty Start Date End Date Jose Fam MD [address] [place] [address] PCP - General Family Medicine 08/01/14 Zipper Slide Attacher Relationship Specialty Start Date End Date Jose Fam MD [address] [place] [address] PCP - General Family Medicine 08/01/14 Zipper Slide Attacher Relationship Specialty Start Date End Date Jose Fam MD [address] [place] [address] PCP - General Family Medicine 08/01/14 Zipper Slide Attacher Relationship Specialty Start Date End Date Jose Fam MD [address] [place] [address] PCP - General Family Medicine 08/01/14 Zipper Slide Attacher Relationship Specialty Start Date End Date Jose Fam MD [address] [place] [address] PCP - General Family Medicine 08/01/14 Zipper Slide Attacher Relationship Specialty Start Date End Date Jose Fam MD [address] [place] [address] PCP - General Family Medicine 08/01/14 Zipper Slide Attacher Relationship Specialty Start Date End Date Jose Fam MD [address] [place] [address] PCP - General Family Medicine 08/01/14 Zipper Slide Attacher Relationship Specialty Start Date End Date Jose Fam MD [address] [place] [address] PCP - General Family Medicine 08/01/14 Zipper Slide Attacher Relationship Specialty Start Date End Date Jose Fam MD [address] [place] [address] PCP - General Family Medicine 08/01/14 Zipper Slide Attacher Relationship Specialty Start Date End Date Jose Fam MD [address] [place] [address] PCP - General Family Medicine 08/01/14 Zipper Slide Attacher Relationship Specialty Start Date End Date Jose Fam MD [address] [place] [address] PCP - General Family Medicine 08/01/14 Zipper Slide Attacher Relationship Specialty Start Date End Date Jose Fam MD [address] [place] [address] PCP - General Family Medicine 08/01/14 Valerie Deshpande, FRANCY.INTEGRATED CIRCUIT DESIGN ENGINEER [address] [place] [address] Design Coordinator Family Medicine 05/29/24 Phoebe Muro PA-C [address] [place] [address] Design Coordinator Family Medicine 05/29/24 Zipper Slide Attacher Relationship Specialty Start Date End Date Jose Fam MD [address] [place] [address] PCP - General Family Medicine 08/01/14 Valerie Deshpande, FRANCY.INTEGRATED CIRCUIT DESIGN ENGINEER [address] [place] [address] Design Coordinator Family [facility] 05/29/24 Phoebe Muro PA-C [address] [place] [address] [facility] 05/29/24 Zipper Slide Attacher Relationship Specialty Start Date End Date Jose Fam MD [address] [place] [address] PCP - General Family Medicine 08/01/14 Valerie Deshpande APRN.INTEGRATED CIRCUIT DESIGN ENGINEER [address] [place] [address] [facility] 05/29/24 Phoebe Muro PA-C [address] [place] [address] [facility] 05/29/24 Zipper Slide Attacher Relationship Specialty Start Date End Date Jose Fam MD [address] [place] [address] PCP - General Family Medicine 08/01/14 Valerie Deshpande APRN.INTEGRATED CIRCUIT DESIGN ENGINEER [address] [place] [address] [facility] Family Medicine 05/29/24 Phoebe Muro PA-C [address] [place] [address] [facility] Family Medicine 05/29/24 Zipper Slide Attacher Relationship Specialty Start Date End Date Jose Fam MD [address] [place] [address] PCP - General Family Medicine 08/01/14 Valerie Deshpande APRN.INTEGRATED CIRCUIT DESIGN ENGINEER [address] [facility] [place] [address] Design Coordinator Family Medicine 05/29/24 Phoebe Muro PA-C [address] [place] [address] Design Coordinator Family Medicine 05/29/24 Zipper Slide Attacher Relationship Specialty Start Date End Date Jose Fam MD [address] [place] [address] PCP - General Family Medicine 08/01/14 Valerie Deshpande, BANQUET CAPTAIN.INTEGRATED CIRCUIT DESIGN ENGINEER [address] [place] [address] Design Coordinator Family Medicine 05/29/24 Phoebe Muro PA-C [address] [place] [address] Design Coordinator Family Medicine 05/29/24 Zipper Slide Attacher Relationship Specialty Start Date End Date Jose Fam MD [address] [place] [address] PCP - General Family Medicine 08/01/14 Valerie Deshpande, BANQUET CAPTAIN.INTEGRATED CIRCUIT DESIGN ENGINEER [address] [facility] [place] [address] Design Coordinator Family Medicine 05/29/24 Phoebe Muro PA-C [address] [place] [address] Design Coordinator Family Medicine 05/29/24 Zipper Slide Attacher Relationship Specialty Start Date End Date Jose Fam MD [address] [place] [address] PCP - General Family Medicine 08/01/14 Valerie Deshpande APRN.INTEGRATED CIRCUIT DESIGN ENGINEER [address] [place] [address] Design Coordinator Family Medicine 05/29/24 Phoebe Muro PA-C [address] [place] [address] Design Coordinator Family Medicine 05/29/24 Zipper Slide Attacher Relationship Specialty Start Date End Date Jose Fam MD [address] [place] [address] PCP - General Family Medicine 08/01/14 Valerie Deshpande APRN.INTEGRATED CIRCUIT DESIGN ENGINEER [address] [place] [address] Design Coordinator Family Medicine 05/29/24 Phoebe Muro PA-C [address] [place] [address] Design Coordinator Family Medicine 05/29/24 Zipper Slide Attacher Relationship Specialty Start Date End Date Jose Fam MD [address] [place] [address] PCP - General Family Medicine 08/01/14 Valerie Deshpande, BANQUET CAPTAIN.INTEGRATED CIRCUIT DESIGN ENGINEER [address] [place] [address] Design Coordinator Family Medicine 05/29/24 Phoebe Muro PA-C [address] [place] [address] Design Coordinator Family Medicine 05/29/24 Zipper Slide Attacher Relationship Specialty Start Date End Date Jose Fam MD [address] [place] [address] PCP - General Family Medicine 08/01/14 Valerie Deshpande, FRANCY.INTEGRATED CIRCUIT DESIGN ENGINEER [address] [facility] [place] [address] Design Coordinator Family Medicine 05/29/24 Phoebe Muro PA-C [address] [place] [address] Design Coordinator Family Medicine 05/29/24 Zipper Slide Attacher Relationship Specialty Start Date End Date Jose Fam MD [address] [place] [address] PCP - General Family Medicine 08/01/14 Valerie Deshpande, BANQUET CAPTAIN.INTEGRATED CIRCUIT DESIGN ENGINEER [address] [facility] [place] [address] Design Coordinator Family Medicine 05/29/24 Phoebe Muro PA-C [address] [place] [address] Design Coordinator Family Medicine 05/29/24 Zipper Slide Attacher Relationship Specialty Start Date End Date Jose Fam MD [address] [place] [address] PCP - General Family Medicine 08/01/14 Valerie Deshpande, BANQUET CAPTAIN.INTEGRATED CIRCUIT DESIGN ENGINEER [address] [facility] [place] [address] Design Coordinator Family Medicine 05/29/24 Phoebe Muro PA-C [address] [place] [address] Design Coordinator Family Medicine 05/29/24 Zipper Slide Attacher Relationship Specialty Start Date End Date Jose Fam MD [address] [place] [address] PCP - General Family Medicine 08/01/14 Valerie Deshpande, FRANCY.INTEGRATED CIRCUIT DESIGN ENGINEER [address] [place] [address] Design Coordinator Family Medicine 05/29/24 Phoebe Muro PA-C [address] [place] [address] Design Coordinator Family Medicine 05/29/24 Zipper Slide Attacher Relationship Specialty Start Date End Date Jose Fam MD [address] [place] [address] PCP - General Family Medicine 08/01/14 Valerie Deshpande, FRANCY.INTEGRATED CIRCUIT DESIGN ENGINEER [address] [place] [address] Design Coordinator Family Medicine 05/29/24 Phoebe Muro PA-C [address] [place] [address] Design Coordinator Family Medicine 05/29/24 Zipper Slide Attacher Relationship Specialty Start Date End Date Jose Fam MD [address] [place] [address] PCP - General Family Medicine 08/01/14 Valerie Deshpande, BANQUET CAPTAIN.INTEGRATED CIRCUIT DESIGN ENGINEER [address] [place] [address] Design Coordinator Family [facility] 05/29/24 Phoebe Muro PA-C [address] [place] [address] [facility] 05/29/24 Zipper Slide Attacher Relationship Specialty Start Date End Date Jose Fam MD [address] [place] [address] PCP - General Family Medicine 08/01/14 Valerie Deshpande APRN.INTEGRATED CIRCUIT DESIGN ENGINEER [address] [place] [address] [facility] 05/29/24 Phoebe Muro PA-C [address] [place] [address] [facility] 05/29/24 Zipper Slide Attacher Relationship Specialty Start Date End Date Jose Fam MD [address] [place] [address] PCP - General Family Medicine 08/01/14 Valerie Deshpande, FRANCY.INTEGRATED CIRCUIT DESIGN ENGINEER [address] [place] [address] [facility] Family Medicine 05/29/24 Phoebe Muro PA-C [address] [place] [address] [facility] Medicine 05/29/24 Zipper Slide Attacher Relationship Specialty Start Date End Date Jose Fam MD [address] [place] [address] PCP - General Family Medicine 08/01/14 Valerie Deshpande APRN.INTEGRATED CIRCUIT DESIGN ENGINEER [address] [place] [address] [facility] 05/29/24 Phoebe Muro PA-C [address] [place], [place] [address] [facility] 05/29/24 Team Status: Active Member Role Status Dates Dr. Jose Fam MD Primary Care Provider Active Team Status: Active Member Role Status Dates Dr. Jose Fam MD Primary Care Provider Active Start: June 09, 2024 Dr. Jose Fam MD Referring Provider Active Start: June 09, 2024 Dr. Valente Campoverde DO Attending Provider Active Start: June 09, 2024 Dr. Valente Campoverde DO Other Provider Active St art: June 09, 2024 Team Status: Inactive Member Role Status Dates Dr. Jose Fam MD Primary Care Provider Active Start: June 09, 2024 End: June 09, 2024 Dr. Adryan Estrada MD Attending Provider Active Sta rt: June 09, 2024 End: June 09, 2024 Dr. Adryan Estrada MD Emergency Provider Active Sta rt: June 09, 2024 End: June 09, 2024 Team Status: Inactive Member Role Status Dates Dr. Jose Fam MD Primary Care Provider Active Start: June 09, 2024 End: June 09, 2024 Dr. Adryan Estrada MD Attending Provider Active Sta rt: June 09, 2024 End: June 09, 2024 Team Status: Active Member Role Status Dates Dr. Jose Fam MD Primary Care Provider Active Start: June 09, 2024 Dr. Beni Boone MD Attending Provider Active S tart: June 09, 2024 Dr. Adryan Estrada MD Referring Provider Active Sta rt: June 09, 2024 Team Status: Inactive Member Role Status Dates Dr. Jose Fam MD Primary Care Provider Active Start: June 14, 2024 End: June 14, 2024 Dr. Jose Fam MD Referring Provider Active Start: June 14, 2024 End: June 14, 2024 Malika PEDROZA PA Attending Provider Active Start: June 14, 2024 End: June 14, 2024 Team Status: Inactive Member Role Status Dates Dr. Jose Fam MD Primary Care Provider Active Start: June 17, 2024 End: June 17, 2024 Dr. Dexter Bland MD Attending Provider Active Start: June 17, 2024 End: June 17, 2024 Dr. Dexter Bland MD Referring Provider Active Start: June 17, 2024 End: June 17, 2024 Dr. Dexter Bland MD Emergency Provider Active Start: June 17, 2024 End: June 17, 2024 Team Status: Inactive Member Role Status Dates Dr. Jose Fam MD Primary Care Provider Active Start: June 28, 2024 End: June 28, 2024 Dr. Jose Fam MD Referring Provider Active Start: June 28, 2024 End: June 28, 2024 Jana Virgen Attending Provider Active Start: 2024 End: June 28, 2024 Team Status: Inactive Member Role Status Dates Dr. Jose Fam MD Primary Care Provider Active Start: June 28, 2024 End: June 28, 2024 Malika PEDROZA PA Attending Provider Active Start: June 28, 2024 End: June 28, 2024 Malika PEDROZA PA Referring Provider Active Start: June 28, 2024 End: June 28, 2024 Team Status: Active Member Role Status Dates Dr. Jose Fam MD Primary Care Provider Active Start: July 16, 2024 Dr. Marvel Arreguin MD Other Provider Active Start: July 16, 2024 Malika PEDROZA PA Attending Provider Active Start: July 16, 2024 Team Status: Inactive Member Role Status Dates Dr. Jose Fam MD Primary Care Provider Active Start: July 19, 2024 End: July 22, 2024 Dr. Marvel Arreguin MD Attending Provider Active Start: July 19, 2024 End: July 22, 2024 Dr. Marvel Arreguin MD Referring Provider Active Start: July 19, 2024 End: July 22, 2024 Dr. Beni Boone MD Admit Provider Active Start : July 19, 2024 End: July 22, 2024 Team Status: Active Member Role Status Dates Dr. Jose Fam MD Primary Care Provider Active Start: July 20, 2024 Dr. Marvel Arreguin MD Referring Provider Active Start: July 20, 2024 Dr. Marvel Arreguin MD Other Provider Active Start: July 20, 2024 Dr. Beni Boone MD Admit Provider Active Start : July 20, 2024 Dr. Beni Boone MD Attending Provider Active S tart: July 20, 2024 Team Status: Inactive Member Role Status Dates Dr. Jose Fam MD Primary Care Provider Active Start: July 20, 2024 End: July 20, 2024 Dr. Jose Fam MD Referring Provider Active Start: July 20, 2024 End: July 20, 2024 Dr. Beni Boone MD Attending Provider Active S tart: July 20, 2024 End: July 20, 2024 Team Status: Inactive Member Role Status Dates Dr. Jose Fam MD Primary Care Provider Active Start: July 20, 2024 End: July 20, 2024 Dr. Beni Boone MD Attending Provider Active S tart: July 20, 2024 End: July 20, 2024 Team Status: Active Member Role Status Dates Dr. Jose Fam MD Primary Care Provider Active Start: July 21, 2024 Dr. Marvel Arreguin MD Referring Provider Active Start: July 21, 2024 Dr. Marvel Arreguin MD Other Provider Active Start: July 21, 2024 Dr. Beni Boone MD Admit Provider Active Start : July 21, 2024 Dr. Beni Boone MD Attending Provider Active S tart: July 21, 2024 Team Status: Active Member Role Status Dates Dr. Jose Fam MD Primary Care Provider Active Start: July 22, 2024 Dr. Marvel Arreguin MD Referring Provider Active Start: July 22, 2024 Dr. Marvel Arreguin MD Other Provider Active Start: July 22, 2024 Dr. Beni Boone MD Admit Provider Active Start : July 22, 2024 Dr. Beni Boone MD Attending Provider Active S tart: July 22, 2024 Team Status: Active Member Role Status Dates Dr. Jose Fam MD Primary Care Provider Active Start: July 22, 2024 Dr. Marvel Arreguin MD Other Provider Active Start: July 22, 2024 Dr. Beni Boone MD Admit Provider Active Start : July 22, 2024 Dr. Christi Latif DO Attending Provider Active S tart: July 22, 2024 Team Status: Active Member Role Status Dates Dr. Jose Fam MD Primary Care Provider Active Start: July 22, 2024 Dr. Simeon Gifford MD Admit Provider Active Star t: July 22, 2024 Dr. Simeon Gifford MD Attending Provider Active Start: July 22, 2024 Dr. Simeon Gifford MD Referring Provider Active Start: July 22, 2024 Team Status: Active Member Role Status Dates Dr. Jose Fam MD Primary Care Provider Active Start: July 26, 2024 Dr. Simeon Gifford MD Admit Provider Active Star t: July 26, 2024 Dr. Simeon Gifford MD Referring Provider Active Start: July 26, 2024 Dr. Simeon Gifford MD Other Provider Active Star t: July 26, 2024 Dr. Valente Campoverde DO Attending Provider Active Start: July 26, 2024 Team Status: Inactive Member Role Status Dates Dr. Jose Fam MD Primary Care Provider Active Start: July 27, 2024 End: July 27, 2024 Dr. Jose Fam MD Referring Provider Active Start: July 27, 2024 End: July 27, 2024 Dr. Valente Campoverde DO Attending Provider Active Start: July 27, 2024 End: July 27, 2024 Team Status: Active Member Role Status Dates Dr. Jose Fam MD Primary Care Provider Active Start: July 27, 2024 Dr. Jose Fam MD Referring Provider Active Start: July 27, 2024 Dr. Valente Campoverde DO Attending Provider Active Start: July 27, 2024 Dr. Valente Campoverde DO Other Provider Active St art: July 27, 2024 Team Status: Inactive Member Role Status Dates Dr. Jose Fam MD Primary Care Provider Active Start: July 28, 2024 End: July 28, 2024 Dr. Simeon Gifford MD Attending Provider Active Start: July 28, 2024 End: July 28, 2024 Dr. Simeon Gifford MD Referring Provider Active Start: July 28, 2024 End: July 28, 2024 Team Status: Active Member Role Status Dates Dr. Alfredito Gonzalez MD Attending Provider Active Start: July 28, 2024 Dr. Jose Fam MD Referring Provider Active Start: July 28, 2024 Team Status: Inactive Member Role Status Dates Dr. Jose Fam MD Primary Care Provider Active Start: August 04, 2024 End: August 04, 2024 Dr. Beni Boone MD Attending Provider Active S tart: August 04, 2024 End: August 04, 2024 Team Status: Inactive Member Role Status Dates Dr. Jose Fam MD Primary Care Provider Active Start: August 04, 2024 End: August 04, 2024 Dr. Jose Fam MD Referring Provider Active Start: August 04, 2024 End: August 04, 2024 Dr. Beni Boone MD Attending Provider Active S tart: August 04, 2024 End: August 04, 2024 Team Status: Inactive Member Role Status Dates Dr. Jsoe Fam MD Primary Care Provider Active Start: August 17, 2024 End: August 17, 2024 Dr. Simeon Gifford MD Attending Provider Active Start: August 17, 2024 End: August 17, 2024 Dr. Simeon Gifford MD Referring Provider Active Start: August 17, 2024 End: August 17, 2024 Team Status: Active Member Role Status Dates Dr. Jose Fam MD Primary Care Provider Active Start: August 17, 2024 Dr. Jonh Oshea MD Attending Provider Active S tart: August 17, 2024 Dr. Simeon Gifford MD Referring Provider Active Start: August 17, 2024 Team Status: Active Member Role Status Dates Dr. Jose Fam MD Primary Care Provider Active Start: August 19, 2024 Dr. Simeon Gifford MD Attending Provider Active Start: August 19, 2024 Dr. Simeon Gifford MD Referring Provider Active Start: August 19, 2024 Team Status: Active Member Role Status Dates Dr. Jose Fam MD Primary Care Provider Active Start: August 19, 2024 Dr. Jonh Oshea MD Attending Provider Active S tart: August 19, 2024 Dr. Simeon Gifford MD Referring Provider Active Start: August 19, 2024 Team Status: Active Member Role Status Dates Dr. Jose Fam MD Primary Care Provider Active Start: August 27, 2024 Dr. Jose Fam MD Referring Provider Active Start: August 27, 2024 Dr. Valente Campoverde DO Attending Provider Active Start: August 27, 2024 Team Status: Inactive Member Role Status Dates Dr. Jose Fam MD Primary Care Provider Active Start: August 19, 2024 End: August 19, 2024 Dr. Simeon Gifford MD Attending Provider Active Start: August 19, 2024 End: August 19, 2024 Dr. Simeon Gifford MD Referring Provider Active Start: August 19, 2024 End: August 19, 2024 Team Status: Inactive Member Role Status Dates Dr. Jose Fam MD Primary Care Provider Active Start: July 22, 2024 End: September 04, 2024 Dr. Simeon Gifford MD Admit Provider Active Star t: July 22, 2024 End: September 04, 2024 Dr. Simeon Gifford MD Attending Provider Active Start: July 22, 2024 End: September 04, 2024 Dr. Simeon Gifford MD Referring Provider Active Start: July 22, 2024 End: September 04, 2024 Team Status: Inactive Member Role Status Dates Dr. Jose Fam MD Primary Care Provider Active Start: August 31, 2024 End: August 31, 2024 Dr. Jose Fam MD Referring Provider Active Start: August 31, 2024 End: August 31, 2024 Jana Virgen Attending Provider Active Start: 2024 End: August 31, 2024 Team Status: Inactive Member Role Status Dates Dr. Jose Fam MD Primary Care Provider Active Start: August 27, 2024 End: August 27, 2024 Dr. Jose Fam MD Referring Provider Active Start: August 27, 2024 End: August 27, 2024 Dr. Valente Campoverde DO Attending Provider Active Start: August 27, 2024 End: August 27, 2024 Zipper Slide Attacher Relationship Specialty Start Date End Date Jose Fam MD [address] [place] [address] PCP - General Family Medicine 08/01/14 Valerie Deshpande, BANQUET CAPTAIN.INTEGRATED CIRCUIT DESIGN ENGINEER [address] [place] [address] Design Coordinator Family Medicine 05/29/24 Phoebe Muro PA-C [address] [place] [address] Design Coordinator Family Medicine 05/29/24 Zipper Slide Attacher Relationship Specialty Start Date End Date Jose Fam MD [address] [place] [address] PCP - General Family Medicine 08/01/14 Valerie Deshpande, BANQUET CAPTAIN.INTEGRATED CIRCUIT DESIGN ENGINEER [address] [place] [address] Design Coordinator Family Medicine 05/29/24 Phoebe Muro PA-C [address] [place] [address] Design Coordinator Family Medicine 05/29/24 Zipper Slide Attacher Relationship Specialty Start Date End Date Jose Fam MD [address] [place] [address] PCP - General Family Medicine 08/01/14 Valerie Deshpande, BANQUET CAPTAIN.INTEGRATED CIRCUIT DESIGN ENGINEER [address] [place] [address] Design Coordinator Family Medicine 05/29/24 Phoebe Muro PA-C [address] [place] [address] Design Coordinator Family Medicine 05/29/24 Zipper Slide Attacher Relationship Specialty Start Date End Date Jose Fam MD [address] [place] [address] PCP - General Family Medicine 08/01/14 Valerie Deshpande APRN.INTEGRATED CIRCUIT DESIGN ENGINEER [address] [place] [address] Design Coordinator Family Medicine 05/29/24 Phoebe Muro PA-C [address] [place] [address] Design Coordinator Family Medicine 05/29/24 Zipper Slide Attacher Relationship Specialty Start Date End Date Jose Fam MD [address] [place] [address] PCP - General Family Medicine 08/01/14 Valerie Deshpande APRN.INTEGRATED CIRCUIT DESIGN ENGINEER [address] [place] [address] Design Coordinator Family Medicine 05/29/24 Phoebe Muro PA-C [address] [place] [address] Design Coordinator Family Medicine 05/29/24 Zipper Slide Attacher Relationship Specialty Start Date End Date Jose Fam MD [address] [place] [address] PCP - General Family Medicine 08/01/14 Valerie Deshpande APRN.INTEGRATED CIRCUIT DESIGN ENGINEER [address] [place] [address] Design Coordinator Family Medicine 05/29/24 Phoebe Muro PA-C [address] [place] [address] [facility] Family [facility] 05/29/24 Team Status: Inactive Member Role Status Dates Dr. Jose Fam MD Primary Care Provider Active Start: August 31, 2024 End: August 31, 2024 Dr. Beni Boone MD Attending Provider Active S tart: August 31, 2024 End: August 31, 2024 Team Status: Inactive Member Role Status Dates Dr. Jose Fam MD Primary Care Provider Active Start: October 27, 2024 End: October 27, 2024 Dr. Celina Wood DO Emergency Provider Active Start: October 27, 2024 End: October 27, 2024 Team Status: Active Member Role Status Dates Dr. Jose Fam MD Primary Care Provider Active Start: October 28, 2024 Albert Swan MD Emergency Provider Active Star t: October 28, 2024 Dr. Jonh Shen DO Admit Provider Active Star t: October 28, 2024 Dr. Jonh Shen DO Attending Provider Active Start: October 28, 2024 Team Status: Inactive Member Role Status Dates Dr. Jose Fam MD Primary Care Provider Active Start: October 28, 2024 End: October 31, 2024 Albert Swan MD Emergency Provider Active Star t: October 28, 2024 End: October 31, 2024 Dr. Jonh Shen DO Admit Provider Active Star t: October 28, 2024 End: October 31, 2024 Dr. Jonh Shen DO Attending Provider Active Start: October 28, 2024 End: October 31, 2024 Team Status: Active Member Role Status Dates Dr. Jose Fam MD Primary Care Provider Active Start: October 28, 2024 Albert Swan MD Emergency Provider Active Star t: October 28, 2024 Dr. Jonh Shen DO Admit Provider Active Star t: October 28, 2024 Dr. Jonh Shen DO Attending Provider Active Start: October 28, 2024 Dr. Jonh Shen DO Other Provider Active Star t: October 28, 2024 Team Status: Active Member Role Status Dates Dr. Jose Fam MD Primary Care Provider Active Start: October 29, 2024 Albert Swan MD Emergency Provider Active Star t: October 29, 2024 Dr. Jonh Shen DO Admit Provider Active Star t: October 29, 2024 Dr. Jonh Shen DO Attending Provider Active Start: October 29, 2024 Dr. Jonh Shen DO Other Provider Active Star t: October 29, 2024 Team Status: Active Member Role Status Dates Dr. Jose Fam MD Primary Care Provider Active Start: October 29, 2024 Dr. Ayanna Joyce MD Attending Provider Active Start: October 29, 2024 Team Status: Active Member Role Status Dates Dr. Jose Fam MD Primary Care Provider Active Start: October 30, 2024 Albert Swan MD Emergency Provider Active Star t: October 30, 2024 Dr. Jonh Shen DO Admit Provider Active Star t: October 30, 2024 Dr. Jonh Shen DO Attending Provider Active Start: October 30, 2024 Dr. Jonh Shen DO Other Provider Active Star t: October 30, 2024 Team Status: Active Member Role Status Dates Dr. Jose Fam MD Primary Care Provider Active Start: October 31, 2024 Albert Swan MD Emergency Provider Active Star t: October 31, 2024 Dr. Jonh Shen DO Admit Provider Active Star t: October 31, 2024 Dr. Jonh Shen DO Attending Provider Active Start: October 31, 2024 Dr. Jonh Shen DO Other Provider Active Star t: October 31, 2024 Zipper Slide Attacher Relationship Specialty Start Date End Date Jose Fam MD [address] [place] [address] PCP - General Family Medicine 08/01/14 Valerie Deshpande, BANQUET CAPTAIN.INTEGRATED CIRCUIT DESIGN ENGINEER [address] [place], [place] [id number] [facility] 05/29/24 Phoebe Muro PA-C [address] [place], [place] [id number] [facility] 05/29/24 Elham Hanna RN [address] [place] [address] Primary Care Protective Signal Repairer Helper 11/01/24 Zipper Slide Attacher Relationship Specialty Start Date End Date Jose Fam MD [address] [place] [address] PCP - General Family Medicine 08/01/14 Phoebe Muro PA-C [address] [place] [address] Design Coordinator Family [facility] 05/29/24 Elham Hanna RN [address] [place] [address] Primary Care Protective Signal Repairer Helper 11/01/24 Zipper Slide Attacher Relationship Specialty Start Date End Date Jose Fam MD [address] [place] [address] PCP - General Family Medicine 08/01/14 Phoebe Muro PA-C [address] [place] [address] Design Coordinator Family [facility] 05/29/24 Elham Hanna RN [address] [place] [address] Primary Care Protective Signal Repairer Helper 11/01/24 Zipper Slide Attacher Relationship Specialty Start Date End Date Jose Fam MD [address] [place] [address] PCP - General Family Medicine 08/01/14 Phoebe Muro PA-C [address] [place] [address] Design Coordinator Family Medicine 05/29/24 Elham Hanna RN [address] [place] [address] Primary Care Protective Signal Repairer Helper 11/01/24 Zipper Slide Attacher Relationship Specialty Start Date End Date Jose Fam MD [address] [place] [address] PCP - General Family Medicine 08/01/14 Phoebe Muro PA-C [address] [place] [address] Design Coordinator Family Medicine 05/29/24 Elham Hanna, HASEEB [address] [place] [address] Primary Care Protective Signal Repairer Helper 11/01/24 Zipper Slide Attacher Relationship Specialty Start Date End Date Jose Fam MD [address] [place] [address] PCP - General Family Medicine 08/01/14 Phoebe Muro PA-C [address] [place] [address] Design Coordinator Family [facility] 05/29/24 Elham Hanna, HASEEB [address] [place] [address] Primary Care Protective Signal Repairer Helper 11/01/24 Zipper Slide Attacher Relationship Specialty Start Date End Date Jose Fam MD [address] [place] [address] PCP - General Family Medicine 08/01/14 Elham Hanna, HASEEB [address] [place] [address] Primary Care Protective Signal Repairer Helper 11/01/24 Valerie Deshpande APRN.CNP [address] [place] [address] Design Coordinator Family Medicine 11/22/24 Phoebe Muro PA-C [address] [place] [address] Design Coordinator Family Medicine 11/22/24 Goals (unrecognized section and content) Goals may be documented in a n alternate section No data available for this sectionGoals may be documented in an alternate section Care Team (unrecognized sect ion and content) Care Team Personnel Name: JOSE FAM MD Member Role: Primary Care Physician Address: Address: [address] [facility] [place] [address]- Name: HERI MEREDITH DO Position: ED Physician Member Role: ED Physician Address: Address: [address] [place] [address] [place] [address]- Name: Wolf Bansal RN Position: AO RN Member Role: RN Inactive Administered Medications - up to 3 most recent administrations Administered Medications (un recognized section and content) Medication Order MAR Action Action Date Dose Rate Site cephALEXin 500 mg cap(s) (KEFLEX) 500 mg, ORAL, ONCE, 1 dose, On Fri09/09/23 at 1330, Antimicrobial indication: Empiric Given 09/09/2023 1:00 PM EDT 500 mg Oral lidocaine urojet 2 % 6 mL topical gel (GLYDO) 6 mL, URETHRAL, ONCE (UP TO 30 DAYS AMB), 1 dose, On Fri09/09/23 at 1330, FOR EXTERNAL USE ONLY APPLY TO: PENIS Given 09/09/2023 1:05 PM EDT 6 mL Pe nis FOR RECORDS PERTAINING TO PATIENTS WHO ARE OR HAVE BEEN ENROLLED IN A CHEMICAL DEPENDENCY/SUBSTANCEABUSE PROGRAM, SOME INFORMATION MAY BE OMITTED. This clinical summary was aggregated from multiple sources. Caution should be exercised in using it in the provision of clinical care. This summary normalizes information from multiple sources, and as a consequence, information in this document may materially change the coding, format and clinical context of patient data. In addition, data may be omitted in some cases. CLINICAL DECISIONS SHOULD BE BASED ON THE PRIMARY CLINICAL RECORDS. [employer] provides no warranty or guarantee of the accuracy or completeness of information in this document.
--- NOTE | 2024-11-29 10:39 | STRESSREP_ITS ---
Stress Test Report Date: 11/29/2024 Procedure: Pharmacologic stress nuclear imaging study Indications: Dyspnea Consent: Per the patient Procedure: The patient underwent pharmacologic (Regadenoson 0.4mg ) evaluation with a peak heart rate of 64 beats per minute (47%predicted maximal heart rate) and a peak blood pressure of 112/62 mmHg. The baseline ECG demonstrated atrial fibrillation with nonspecific IVCD. The peak pharmacologic ECG failed to show any ischemic changes. Baseline atrial fibrillation. There was no complaint of chest discomfort during pharmacologic infusion or recovery. The patient was injected with 14.6 millicuries of technetium 99m Cardiolite and subsequently rest SPECT Cardiolite nuclear imaging was obtained in the hori zontal long, vertical long, and short axis views. The patient underwent pharmacologic (Regadenoson) evaluation. The patient was injected with 44.8 millicuries of technetium 99m Cardiolite and subsequently stress SPECT Cardiolite nuclear imaging was obtained in the horizontal long, vertical long, and short axis views. A gated Cardiolite study at peak stress was obtained. The examination was stopped secondary to completion of protocol. Rest and stress SPECT Cardiolite nuclear imaging status post realignment, normalization, and attenuation correction demonstrate a very small apical reversible perfusion defect suggestive of mild ischemia. There is end systolic thickening and brightening. The gated Cardiolite study demonstrates myocardial thickening and inward wall motion. The reported LVEF is 59%. Impression: 1. Pharmacologic (Regadenoson) evaluation 2. Peak pharmacologic ECG with no ischemic changes. 3. Baseline atrial fibrillation. 5. Small reversible apical perfusion defect of the apex comprising less than 5% of the myocardium, suggestive of mild ischemia.. 6. The gated Cardiolite study reports an LVEF of 59%. This note was generated with [employer] software. It may contain incorrect words, spelling, and punctuation that were not noted in checking the note before signing.
== END | disposition home or self-care (01) ==
PROVIDERS: PCP Family Medicine; Referring Provider Family Medicine; Visit Provider Family Medicine
DX: R06.02 Shortness of breath (principal); R06.09 Other forms of dyspnea
CPT/HCPCS: 78452; 93017; A9500; A4216; J2785

== ENCOUNTER → 2025-01-12 | Outpatient (CLI) | payer MEDICARE, SELFPAY ==
[2025-01-12 10:54] LABS: Hematocrit 41.8 % (40-54); Hemoglobin 13.6 g/dL (13.0-16.5); Immature Granulocytes Count 0.020 X10^3/uL (0.0-0.0); Mean Corp Hgb Conc 32.5 g/dL (32-36); Mean Corpuscular Volume 87.1 fL (80-94); Mean Platelet Vol. 11.0 fl (6.2-12.0); NRBC Flagged by Analyzer 0 % (0-5); Platelet Count 177 K/mm3 (150-450); RBC Distribution Width CV 15.9 % (11.6-14.6); RBC Distribution Width SD 51.3 fl (35.1-43.9); Red Blood Count 4.80 M/mm3 (4.6-6.2); White Blood Count 9.5 K/mm3 (4.4-11.0)
[2025-01-12 13:00] LABS: Anion Gap 16 (5-15); BUN 48 mg/dL (4-19); BUN/Creat Ratio 31.0 RATIO (10-20); Calcium,Total 9.0 mg/dL (7.6-11.0); Carbon Dioxide 34.1 mmol/L (21.0-32.0); Chloride 91 mmol/L (98-108); Glucose 200 mg/dL (70-99); Potassium 2.6 mmol/L (3.3-5.1)
== END | disposition home or self-care (01) ==
LOC: LAB 09:12
PROVIDERS: PCP Family Medicine; Referring Provider Nurse Practitioner Gerontology; Visit Provider Nurse Practitioner Gerontology
DX: R94.39 Abnormal result of other cardiovascular function study (principal); R06.09 Other forms of dyspnea; R53.83 Other fatigue
CPT/HCPCS: 36415; 80048; 85025

== ENCOUNTER → 2025-01-17 | Outpatient (CLI) | payer MEDICARE, SELFPAY ==
[2025-01-17 11:54] LABS: Anion Gap 13 (5-15); BUN 51 mg/dL (4-19); BUN/Creat Ratio 37.6 RATIO (10-20); Calcium,Total 9.3 mg/dL (7.6-11.0); Carbon Dioxide 33.0 mmol/L (21.0-32.0); Chloride 97 mmol/L (98-108); Glucose 140 mg/dL (70-99); Potassium 3.2 mmol/L (3.3-5.1)
== END | disposition home or self-care (01) ==
LOC: LAB 10:03
PROVIDERS: Student in an Organized Health Care Education/Training Program; PCP Family Medicine; Referring Provider Nurse Practitioner Gerontology; Visit Provider Nurse Practitioner Gerontology
DX: E87.6 Hypokalemia (principal)
CPT/HCPCS: 36415; 80048

== ENCOUNTER 2025-01-18 11:40 | Observation (INO) | payer MEDICARE, SELFPAY ==
--- NOTE | 2025-01-13 08:52 | HP.PCM_ITS ---
History and Physical Date of Admission: 01/18/25 Regan Arango is an 84-year-old gentleman who presents here today for a cardiac catheterization following an abnormal stress test. He was in the emergency room on June 09, 2024 with new onset of atrial flutter. He previously was established with [facility] cardiology for hypertension and SVT. He also has a hx of a TIA and is on Plavix. He did have a 14-day event monitor in 2022 which did demonstrate 1 episode of second-degree AV block type I. He is not on any rate limiting medications. Patient presented to the emergency room on 06/09/2024 with new onset of atrial flutter. He was scheduled to have an EGD by Dr. Campoverde however it was canceled when he was noted to be in atrial flutter. PCP had recommended that he come to the emergency room for further evaluation. Patient was not symptomatic with his onset of atrial flutter. Labs were normal. ER physician spoke with Dr. Boone and he recommended a 24-hour Holter monitor. This did demonstrate 100% atrial flutter. Average heart rate 50 bpm, minimum heart rate 30 bpm, maximum heart rate 88 bpm. Longest R to R 2.1 seconds. He did undergo a pacemaker implant in July 2024. Patient presented to the emergency room on 10/28/2024 with complaints of shortness of breath. He had been diagnosed with pneumonia on 10/27/2024. His BNP was elevated at 2134. He was admitted for observation. His echocardiogram from 10/28/2024 demonstrated ejection fraction of 55% with stage III diastolic dysfunction, RVSP 44 mmHg. During his hospitalization, he did undergo IV furosemide. From a cardiac standpoint, the patient is doing well. He denies any palpitations, chest pain, pressure or heaviness. He does have SOB with exertion. He is currently on 2L of Oxygen via NC. He denies Orthopnea, and PND. He does not have bleeding issues; no blood in urine, stool, or nosebleeds. He does acknowledge a decrease in energy level. He denies myalgias, or claudication. He does have left lower extremity edema-he does have a history of neuropathy. He does not have sudden weight gain. He denies lightheadedness, dizziness, syncopal or near syncopal episodes, and headaches. Intake Vital Signs See EMR Allergies See EMR Medications See EMR PFSH Medical History History of pacemaker Congestive heart failure Hypothyroidism Depression Insomnia BPH (benign prostatic hyperplasia) Hyperlipidemia Essential (primary) hypertension Atrial flutter Diabetes mellitus, type 2 Easy bruising Shortness of breath on exertion History of irregular heartbeat Sick sinus syndrome Bradycardia Paroxysmal atrial fibrillation Persistent atrial fibrillation Prostate disease Excessive bleeding Gastric reflux Neuropathy Mobitz (type) I (Wenckebach's) atrioventricular block Wears glasses Cancer Thyroid disease Arthritis Hx of bladder cancer Bladder disease Restless legs Back pain Injury of head and neck Syncope Difficulty swallowing Non-smoker TIA (transient ischemic attack) History of pain when walking History of edema History of stress test Cardiology follow-up encounter Esophageal dysphagia High cholesterol Hypertension Surgical History History of surgical removal of pilonidal cyst History of permanent cardiac pacemaker placement Status post cardiac pacemaker procedure History of esophagogastroduodenoscopy (EGD) History of laparoscopic cholecystectomy Hx of colonoscopy Hx of repair of left rotator cuff Hx of repair of right rotator cuff Hx of microdiscectomy History of lumbar spinal fusion Social History household members: spouse housing: house Smoking Status: Never smoker alcohol intake: never substance use type: does not use ROS Const Const: Positive for fatigue; Negative for weakness, headache(s) or frequent falls Eyes Eyes: Negative for blurry vision ENT ENT: Negative for headache(s), dizziness or Nosebleed/epistaxis Cardio Chest Pain: No Palpitations: No Edema: Left Muscle aches with walking: None Resp Respiratory: Positive for SOB with activity; Negative for SOB at rest or SOB orthopnea\SOB lying down GI GI: Negative nausea, vomiting, heartburn, bright, red blood in stools or black,tarry stools : Negative for hematuria Neuro Neuro: Negative for dizziness, lightheadedness, near syncope, syncope, frequent falls, headache(s), weakness or blurry vision Endo Endo: Positive for fatigue Cardiology Exam Const Appearance: cooperative, healthy appearing and well developed Nutritional Appearance: obese Orientation: alert, awake and oriented x3 Head Head: normal to inspection and normocephalic Ears: hearing grossly normal bilaterally Nose: external nose normal Mouth: oral mucosae normal Eyes General: appearance normal, both eyes and all related structures Eyelids: eyelids normal Conjunctivae: conjunctivae normal Pupils: PERRL EOM: EOM intact bilaterally Neck Neck: normal visual inspection and no JVD; Negative no lymphadenopathy Carotids: Negative bruit Chest Chest inspection: normal inspection of the chest Auscultation: Bilateral: Clear to Auscultation Cardio Palpation: normal PMI Rhythm: irregularly irregular Heart sounds: S1 normal and S2 normal; Negative rub, gallop or murmur GI GI: normal to inspection, soft and obese Neuro General: patient alert, patient awake, patient oriented x3, patient oriented to and CN's II-XI intact bilaterally Extremities Pulses: Normal: Right Radial Pulse and Left Radial Pulse and Diminished: Right Posterior Tibial Pulse and Left Posterior Tibial Pulse Lower Extremity Edema: +1: Bilateral Psych Psychological: normal affect Supplemental Info Supplemental Information Stress test 11/29/2024: Impression: 1. Pharmacologic (Regadenoson) evaluation 2. Peak pharmacologic ECG with no ischemic changes. 3. Baseline atrial fibrillation. 5. Small reversible apical perfusion defect of the apex comprising less than 5% of the myocardium, suggestive of mild ischemia.. 6. The gated Cardiolite study reports an LVEF of 59%. Echocardiogram 10/28/2024: Interpretation Summary The study was technically difficult. Mild concentric left ventricular hypertrophy. The LV systolic function is normal. EF is 55 %. Stage 3 diastolic dysfunction. Trivial to mild mitral valve regurgitation. Mild tricuspid valve insufficiency. Right ventricular systolic pressure estimated to be 44 mmHg. Mildly dilated aortic root. Echocardiogram December/2021: Left ventricle normal in size. Estimated ejection fraction 65%. RV systolic functions normal. No valvular abnormalities. Aorta is borderline dilated with a maximum dimension of 4.0 cm. No change when compared to echocardiogram in October 2018. Stress test in June 2018: Pharmacologic stress test is negative for ischemia. This was done at [facility]. 14-day event monitor April 2023 at [facility] Minimum heart rate 24 bpm, maximum heart rate 200 bpm, average heart rate 61 bpm . Predominant rhythm is sinus rhythm with first-degree AV block. 4 ventricular tachycardia runs the longest lasting 4 beats. 1 episode of high-grade AV block noted. Lasting a total of 3 seconds. Second-degree AV block Mobitz type I was present. Assessment and Plan Assessment and Plan (1) Abnormal Stress Test: Status: Acute Plan: Patient's stress test from 11/29/2024 showed a small reversible apical perfusion defect at the apex compromising less than 5% of the myocardium, suggestive of mild ischemia. With patient's shortness of breath, and fatigue did discuss with Dr. Joyce, will proceed with cardiac catheterization. Cardiac catheterization instructions were given to patient, and he verbalizes understanding.
[2025-01-17 08:45] VITALS: BMI 37.0
[2025-01-18] VITALS (14 sets, daily range): BP systolic 110–133; BP diastolic 59–85; PULSE 60–67; RESP 12–20; TEMP 36.2–36.6; O2SAT 91–100
--- NOTE | 2025-01-18 11:46 | DCINST_ITS ---
Discharge Instructions DC O2, CPAP, BIPAP needs Home O2 Discharge instructions: No Dressing / Incision Discharge Activity: Return to Normal Activity May resume sexual activity in: No Restrictions Dressing / Incision Call your doctor if your incision/area has: Continuous Slow Oozing, Sudden Increased Bleeding, Increased Pain/ Swelling, Increased Redness, Foul Smelling Discharge and Swelling at the incision site Call your doctor if you observe: Fever of 101 or Higher, Coldness, Increased Pain, Numbness or Tingling and Change in Color Follow Up Care Please Follow Up With: Ayanna Joyce MD When: 2-4 weeks Test Results: Test results from this visit will be discussed in further detail at your follow- up appointment, if applicable. Discharge Plan Admission Attending Provider: Ayanna Joyce Primary Care Provider: Jose Maurice Instructions Print Language: Kiswahili Discharge Orders/Prescriptions Prescriptions: New clopidogrel 75 mg Tablet 75 mg PO DAILY Qty: 30 6RF Continued cyanocobalamin (vitamin B-12) 1,000 mcg tablet 1,000 mcg PO DAILY potassium chloride 20 mEq tablet,ER particles/crystals 20 meq PO DAILY finasteride 5 mg tablet 5 mg PO DAILY duloxetine 30 mg capsule,delayed release(DR/EC) 30 mg PO DAILY lisinopril 2.5 mg tablet 2.5 mg PO DAILY trazodone 50 MG tablet 50 mg PO QHS tamsulosin 0.4 MG capsule 0.4 mg PO DAILY pravastatin 20 MG tablet 20 mg PO DAILY Eye Multivitamin 2,148 mcg-113 mg-45 mg-17.4mg tablet 1 tab PO BID Rx Instructions: administer with AM and PM meals Centrum Silver Men [id number] mcg tablet 1 tab PO DAILY gabapentin 600 mg tablet 1,800 mg PO Q12H albuterol sulfate 90 mcg/actuation HFA aerosol inhaler 2 inh inhalation Q4H PRN (Reason: shortness of breath or wheezing) levothyroxine 175 mcg tablet 175 mcg PO DAILY omeprazole 20 mg capsule,delayed release(DR/EC) 20 mg PO DAILY benzonatate 200 mg capsule 200 mg PO TID PRN (Reason: cough) Qty: 20 0RF Patient Comments: started today furosemide 40 mg tablet 40 mg PO DAILY Qty: 30 0RF zinc gluconate 50 mg tablet 50 mg PO DAILY Eliquis 5 mg tablet 5 mg PO BID Qty: 60 11RF Referrals / Follow Up: Jose Maurice MD [Primary Care Provider] - Disposition Disposition (needs filled in before D/C Order can be placed): Home, Self Care
[2025-01-18 13:42] LABS: ACT Activated Clotting Time 245 sec (74-137)
[2025-01-18 13:42] LABS: ACT Activated Clotting Time 256 sec (74-137)
[2025-01-18] MEDS: 0.9% Normal Saline (1000mL) 1,000 ML 100 ML IV (13:43)
--- NOTE | 2025-01-18 14:33 | CRPHASE1_ITS ---
Patient Communication Patient Information PHII Cardiac Rehab Discussed with Patient:: Yes Guide to Cardiac Rehab Given to Patient:: Yes Cardiac Rehab Facility Choice List Given to Patient:: Yes Communication to Cardiac Rehab Choice Program [facility] CR PHII:: Communication Given to CR Unemployment Specialist:: Ayanna Joyce Phase II Cardiac Rehab:: Yes Sessions:: 36 sessions - 3 days/wk, 12 weeks Cardiac Rehabilitation Info Program Information Cardiac Rehabilitation Program Information: Cardiac Rehab The cardiac rehab team at [facility] consists of highly skilled exercise physiologists, nurses, respiratory therapists and physicians working together with you. Our purpose is to help you have a full recovery and achieve the goals you set for yourself. Over the years many of our patients have returned to activities they assumed they would never do again! We can help restore your confidence and motivation to make lifestyle changes that can have a significant impact on your health and quality of life! We can help answer questions and concerns you may have about exercise, lifestyle, medications, diet, stress and anxiety which are common following a hospitalization. WE monitor ECG and vital signs during exercise and discuss your progress with you and report to your physician(s). Cardiac Rehab is proven to help reduce readmissions, improve functional capacity and lower recurrence of problems with your heart. Our Cardiac Rehab program is Certified by the [employer] (AACVPR) and Accredited by the [employer] through our [facility]. You can contact us at . We invite you to call us with your questions or to get started in our program. If you have other questions or concerns be sure to ask your physician/provider during your follow-up visit. WE look forward to seeing you!
--- NOTE | 2025-01-18 14:34 | CRPH1.INST_ITS ---
General Education Discussed with Patient CAD and cardiac anatomy and function:: Patient communicates acknowledgment, Family communicates acknowledgment and Needs reinforcement Explanation of diagnoses and procedures:: Patient communicates acknowledgment, Family communicates acknowledgment and Needs reinforcement Sign/Symptoms of IA:: Patient communicates acknowledgment, Family communicates acknowledgment and Needs reinforcement Antiplatelet therapy: Patient communicates acknowledgment, Family communicates acknowledgment and Needs reinforcement Proper use of NTG-SL: Patient communicates acknowledgment, Family communicates a cknowledgment and Needs reinforcement Emergency procedures and activation of EMS: Patient communicates acknowledgment, Family communicates acknowledgment and Needs reinforcement Compliance of all prescribed medications: Patient communicates acknowledgment, Family communicates acknowledgment and Needs reinforcement Dyslipidemia Risk Factors Patient Dyslipidemia Risk Factors Are:: Total Cholesterol, Triglycerides, HDL and LDL Recommendations Recommendations Include:: Lipid profile not available Response Code Dyslipidemia Response Code:: Patient communicates acknowledgment, Family communicates acknowledgment and Needs reinforcement Overweight/Obesity Risk Factors Patient Overweight/Obesity Risk Factors Are:: Obesity - > or = 30 Recommendations Recommendations Include:: Weight loss of 5-10%, Reduced calorie diet and Exercise 5-7 times/week Response Code Overweight/Obesity:: Patient communicates acknowledgment, Family communicates acknowledgment and Needs reinforcement Hypertension Recommendations Recommendations Include:: Maintain BP <130/85, BP <130/80 if diabetic and Decrease/maintain normal body weight Response Code Hypertension:: Patient communicates acknowledgment, Family communicates acknowledgment and Needs reinforcement Sedentary Risk Factors Patient Sedentary Risk Factors Are:: Lack of regular exercise Recommendations Recommendations Include:: Aerobic exercise 5-7 times/week for 20-30 minutes continuously, Benefits of regular exercise, Discussed home walking program and Monitored Outpatient Cardiac Rehab Response Code Sedentary Response Code:: Patient communicates acknowledgment, Family communicates acknowledgment and Needs reinforcement
--- NOTE | 2025-01-18 14:47 | CASEMGMT ---
Social Work had asked for transportation resources to get pt to and from cardiac rehab. SW gave information for both the hospital van and the new transportation being offered in [facility]. is already aware of [place], and in fact used them to get to the hospital today. SW remains available for additional resources if needed. [facility]
--- NOTE | 2025-01-18 15:01 | EKG12_ITS ---
Test Reason : POST PCI Blood Pressure : */* mmHG Vent. Rate : 60 BPM Atrial Rate : 250 BPM P-R Int : * ms QRS Dur : 166 ms QT Int : 508 ms P-R-T Axes : * -65 82 degrees QTcB Int : 508 ms Ventricular-paced rhythm Abnormal ECG When compared with ECG of 28-Oct-2024 08:22, Vent. rate has decreased by 7 bpm Confirmed by STU MACDONALD MD ([id number]), visual effects editor ZENON BRIAN ([id number]) on 01/20/2025 6:31:29 AM Referred By: Ayanna Joyce Confirmed By: STU MACDONALD MD
[2025-01-18] MEDS: APIXABAN 5 MG TABLET PO (20:41)
[2025-01-18] MEDS: Multivitamin (Healthy Eyes) Capsule 1 CAP PO (20:41)
[2025-01-19 03:39] VITALS: BP 105/56; PULSE 60; RESP 18; TEMP 36.5; O2SAT 98
[2025-01-19 05:44] LABS: Hematocrit 39.4 % (40-54); Hemoglobin 12.5 g/dL (13.0-16.5); Mean Corp Hgb Conc 31.7 g/dL (32-36); Mean Corpuscular Volume 88.5 fL (80-94); Mean Platelet Vol. 10.6 fl (6.2-12.0); Platelet Count 154 K/mm3 (150-450); RBC Distribution Width CV 15.9 % (11.6-14.6); RBC Distribution Width SD 51.8 fl (35.1-43.9); Red Blood Count 4.45 M/mm3 (4.6-6.2); White Blood Count 10.6 K/mm3 (4.4-11.0)
[2025-01-19 06:15] LABS: AST(SGOT) 37 U/L (<=37); Alanine Aminotransfer ALT/SGPT 15 U/L (<=46); Albumin, Serum 3.4 g/dL (3.4-4.8); Alkaline Phosphatase 87 U/L (40-129); Anion Gap 11 (5-15); BUN 35 mg/dL (4-19); BUN/Creat Ratio 32.6 RATIO (10-20); Calcium,Total 8.8 mg/dL (7.6-11.0); Carbon Dioxide 32.0 mmol/L (21.0-32.0); Chloride 101 mmol/L (98-108); Estimated Creatinine Clearance 66.09 ml/min (50-250); Globulin 2.1 g/dL (2.2-4.2); Glucose 130 mg/dL (70-99); Potassium 3.5 mmol/L (3.3-5.1)
[2025-01-19 09:00] VITALS: BP 118/63; PULSE 60; RESP 18; TEMP 36.6; O2SAT 93
[2025-01-19] MEDS: APIXABAN 5 MG TABLET PO (10:00)
[2025-01-19] MEDS: Zinc Sulfate 50 mg zinc (220 mg) ORAL capsule PO (10:00)
[2025-01-19 10:01] VITALS: BP 118/63; PULSE 60
[2025-01-19] MEDS: Potassium Chloride Oral Tablet 20 MEQ PO (10:01)
[2025-01-19] MEDS: Multivitamin (Healthy Eyes) Capsule 1 CAP PO (10:01)
--- NOTE | 2025-01-19 10:23 | CASEMGMT ---
Patient has order for discharge. RN CM in to discuss needs at discharge, at bedside. Patient denies needs or help at discharge. has made arrangements for [facility] to take them home at 3:30p. Patient and had no further questions or concerns.
--- NOTE | 2025-01-19 10:31 | PHA.DC_ITS ---
Pharmacy [facility] Counseling Pharmacy Service has performed discharge medication reconciliation and counseling for this patient. 1. CLOPIDOGREL 75MG PO DAILY The patient's discharge medication list was reviewed for discrepancies and discrepancies were resolved. The patient was counseled on the following discharge medications and changes in medications for homegoing were reviewed. The Reason for Use, instructions for use, and potential side effects were reviewed for all new medications. The patient's questions regarding all of their medications were answered. The patient was able to verbally demonstrate an understanding of their discharge medications. Medications at Discharge Home Medications pravastatin 20 mg tablet 20 mg PO DAILY Cholesterol 05/09/15 tamsulosin 0.4 mg capsule 0.4 mg PO DAILY Urine retention 05/09/15 trazodone 50 mg tablet 50 mg PO QHS sleep 05/09/15 cyanocobalamin (vitamin B-12) 1,000 mcg tablet 1,000 mcg PO DAILY supplement 04/14/24 duloxetine 30 mg capsule,delayed release 30 mg PO DAILY mental health 04/14/24 finasteride 5 mg tablet 5 mg PO DAILY BPH 04/14/24 gabapentin 600 mg tablet 1,800 mg PO Q12H neuropathy 04/14/24 umkhraxz-bo-nmxof 300 mcg-K 60 mcg-lycop 600 mcg-lutein 300 mcg tablet (Centrum Silver Men) 1 tab PO DAILY supplement 04/14/24 potassium chloride 20 mEq tablet,extended release(part/cryst) 20 meq PO DAILY supplement 04/14/24 vitamins A,C,I-meyk-yisdcx 2,148 mcg-113 mg-45 mg-17.4 mg tablet (Eye Multivitamin) 1 tab PO BID supplement 04/14/24 zinc gluconate 50 mg tablet 50 mg PO DAILY supplement 06/08/24 lisinopril 2.5 mg tablet 2.5 mg PO DAILY BP 06/14/24 apixaban 5 mg tablet (Eliquis) 5 mg PO BID blood thinner #60 tabs 09/07/24 albuterol sulfate 90 mcg/actuation aerosol inhaler 2 inh inhalation Q4H PRN shortness of breath or wheezing 10/27/24 benzonatate 200 mg capsule 200 mg PO TID PRN cough #20 caps 10/27/24 levothyroxine 175 mcg tablet 175 mcg PO DAILY thyroid 10/27/24 omeprazole 20 mg capsule,delayed release 20 mg PO DAILY reflux 10/27/24 furosemide 40 mg tablet 40 mg PO DAILY diuretic #30 tabs 10/31/24 clopidogrel 75 mg tablet 75 mg PO DAILY #30 tabs 01/18/25
[2025-01-19 11:21] VITALS: BP 118/63; PULSE 60; RESP 18; TEMP 36.6; O2SAT 93
--- NOTE | 2025-01-31 09:47 | CL.I_ITS ---
Patient Name: JUAN MANUEL MASON Study Date: 01/18/2025 Performing: Ayanna Joyce MD Ht: 71 inches 180.34 cm : 1940 Wt: 266.01 lbs 120.66 kg Age: 84 Gender: male BSA: 2.38 PROCEDURE(S) PERFORMED DC02-([id number])LHC/COR IC11A-([id number])CORONARY INTRAVASCULAR LITHOTRIPSY IC12-([id number])KAVITHA W/WO PTCA, SINGLE CORONARY ARTERY CLINICAL PROFILE AND CO-MORBIDITIES Indications: Suspected CAD Heart Failure: NYHA Class: 2, Heart Failure Type: Diastolic Stress/Imaging Stress Test w/SPECT MPI: Yes Result: Positive Low Risk Stress Test with SPECT MPI: Positive Low Risk CAD Presentations: Other: Dyspnea on exertion CONCLUSIONS Heavily calcified LAD and RCA 90% Mid LAD 30% distal LMCA 60% Mid RCA RECOMMENDATIONS P2Y12 inhibitors for atleast 6 months Continue Apixaban DESCRIPTION OF PROCEDURE The patient arrived to the procedure lab. The risks and benefits of the procedure as well as a full description of our services here and lack of surgical backup were fully explained to the patient and/or their significant other prior to the catheterization. The Timeout was completed, verifying the correct patient and procedure. The patient's procedural site was prepped and draped in the usual fashion. Local anesthetic was given subcutaneously to right radial region with Lidocaine 2%. Using a modified Seldinger technique, arterial access was obtained via the right radial artery, a 6Fr sheath was inserted.. Left Coronary Artery selective angiography was performed in multiple views using a 5 Fr. 4.0 [place] catheter. Right Coronary Artery selective angiography was then performed in multiple views using a 5 Fr. 3DRC (Ray) catheterThe images were reviewed and options discussed. A decision was then made to proceed with an Intervention, IVUS or other adjunct procedure. 3.0 XB Guide catheter was inserted and engaged into the LCA. 3.0x26 [place] Drug Eluting stent was inserted. Drug Eluting stent was advanced across the lesion in the LAD, mid. 3.0x8 [place] Drug Eluting stent was inserted. Drug Eluting stent was advanced across the lesion in the LAD, mid. 3.00x20 [place] EMERGE Balloon catheter was inserted post stent. Angiogram performed post balloon dilatation. 3DRC Guide catheter was inserted and engaged into the RCA. CORONARY ANGIOGRAPHY DOMINANCE: Right Dominant LEFT MAIN: Calcified 30% Distal lesion in LMCA LEFT ANTERIOR DESCENDING ARTERY: LAD: Calcified 90% Mid lesion in LAD Calcified 50% Mid lesion in LAD Calcified 50% Distal lesion in LAD RIGHT CORONARY ARTERY: RCA: Calcified 60% Mid lesion in RCA INTERVENTION INFORMATION LESION SITE: LAD (Mid) Lesion Complexity: High/C, lesion length: 34 mm Pre Stenosis: 90 % Pre intervention RHODA flow: 3 PROCEDURE: Coronary Intravascular Lithotripsy - IVL, Drug Eluting Stent with post dilatation Post Stenosis: 0 % Post intervention RHODA flow: 3 Lesion Devices: Cordis 6 Fr XB3.0 100cm Guide Catheter Terumo .014 180cm Runthrough Extra Floppy straight [employer] Shockwave IVL 3.0x12 Medtronic 3.0 x 26 SHASTA FRONTIER KAVITHA Medtronic 3.0 x 08 SHASTA FRONTIER KAVITHA [employer] Sci [place] EMERGE MR 3.00x20 BALLOON COMPLICATIONS No Complications PROCEDURE MEDICATIONS Fentanyl 25 mcg IV Versed 1 mg IV Fentanyl 50 mcg IV Versed 1 mg IV Fentanyl 50 mcg IV Oxygen: 2 L/min via nasal cannula Oxygen: 4 L/min via nasal cannula Baby Aspirin (81mg) 1 Tabs PO 01/18/2025 09:56:23 Brilinta 180 mg PO @ 01/18/2025 10:58:22 Heparin given IA 01/18/2025 10:42:36 Heparin 7000 unit(s) IV 01/18/2025 10:51:51 Heparin 2000 unit(s) IV 01/18/2025 11:05:20 Nitro 200 mcg IC 01/18/2025 11:17:10 Potassium Chloride 40 mEq PO 01/18/2025 09:56:45 Verapamil 2.5mg, Ntg 200mcgs, 2000 units of Heparin given IA 01/18/2025 10:42:36 SUMMARY OF HEMODYNAMIC DATA Time AIR REST ECG 10:03:44 AO 107/66 (82) SA 10:46:47 AO 113/60 (83) 11:09:46 AO 130/72 (96) 11:26:30 Signed By Ayanna Joyce MD On 01/18/2025 12:05:03 Ayanna Joyce MD
== END 2025-01-19 10:00 | disposition home or self-care (01) ==
LOC: CLSP 11:47 → PCU 12:09
PROVIDERS: Admitting Provider Internal Medicine Cardiovascular Disease; PCP Family Medicine; Referring Provider Internal Medicine Cardiovascular Disease; Visit Provider Internal Medicine Cardiovascular Disease
DX: I25.10 Atherosclerotic heart disease of native coronary artery without angina pectoris (principal); I50.9 Heart failure, unspecified; I11.0 Hypertensive heart disease with heart failure; I48.0 Paroxysmal atrial fibrillation; I49.5 Sick sinus syndrome; E11.40 Type 2 diabetes mellitus with diabetic neuropathy, unspecified; R94.39 Abnormal result of other cardiovascular function study; Z86.73 Personal history of transient ischemic attack (TIA), and cerebral infarction without residual deficits; Z79.02 Long term (current) use of antithrombotics/antiplatelets; Z95.0 Presence of cardiac pacemaker; E78.5 Hyperlipidemia, unspecified; K21.9 Gastro-esophageal reflux disease without esophagitis; E03.9 Hypothyroidism, unspecified; R94.31 Abnormal electrocardiogram [ECG] [EKG]; R06.09 Other forms of dyspnea
CPT/HCPCS: 36415; 80053; 85027; 85347; 92928; 92972; 93005; 93454; 96360; 96361; 99152; 99153; 99221; C1761; Q9967; C1725; C1769; C1874; C1887; C1894; C9600; G0378

== ENCOUNTER → 2025-02-25 | Outpatient (CLI) | payer MEDICARE, SELFPAY ==
--- NOTE | 2025-02-25 08:03 | CR.HP_ITS ---
CR - History & Physical General Arrival date:: 02/25/25 Arrival time:: 08:04 Date of Referral:: 01/26/25 Date of CR Evaluation:: 02/25/25 Referring Physician: Dr. Joyce Primary Diagnosis: PCI w/stenting History of Present Cardiac Event Onset Date PTCA or coronary stenting:: Yes (onset 01/18/2025) Vessel: LAD Medications Ambulatory Orders ?Medication ?Instructions ?Recorded pravastatin 20 mg tablet 20 mg PO DAILY Cholesterol 1 07/09/14 tamsulosin 0.4 mg capsule 0.4 mg PO DAILY Urine retent ion 05/09/15 trazodone 50 mg tablet 50 mg PO QHS sleep 05/09/15 cyanocobalamin (vitamin B-12) 1,000 mcg PO DAILY suppl ement 04/14/24 1,000 mcg tablet duloxetine 30 mg capsule,delayed 30 mg PO DAILY mental health 04/14/24 release finasteride 5 mg tablet 5 mg PO DAILY BPH 04/14/24 gabapentin 600 mg tablet 1,800 mg PO Q12H neuropathy 04/14/24 dpauilew-ba-onpza 300 mcg-K 60 1 tab PO DAILY suppleme nt 04/14/24 mcg-lycop 600 mcg-lutein 300 mcg tablet (Centrum Silver Men) potassium chloride 20 mEq 20 meq PO DAILY supplement 1 tablet,extended release(part/cryst) vitamins A,C,N-ptwc-htshia 2,148 1 tab PO BID suppleme nt 04/14/24 mcg-113 mg-45 mg-17.4 mg tablet (Eye Multivitamin) lisinopril 2.5 mg tablet 2.5 mg PO DAILY BP 06/14/24 apixaban 5 mg tablet (Eliquis) 5 mg PO BID blood thinn er #60 tabs 09/07/24 benzonatate 200 mg capsule 200 mg PO TID PRN cough #20 caps 10/27/24 levothyroxine 175 mcg tablet 175 mcg PO DAILY thyroid 10/27/24 omeprazole 20 mg capsule,delayed 20 mg PO DAILY reflux 10/27/24 release furosemide 40 mg tablet 40 mg PO DAILY diuretic #30 tabs 10/31/24 clopidogrel 75 mg tablet 75 mg PO DAILY #30 tabs 12/22 03/17 Allergies Allergies oxybutynin (From Ditropan) Allergy (Intermediate, Verified 02/10/25 14:31) Nausea/Vom/Diarrhea BRAIN FOG, WEAKNESS, DECREASED APPETITE prednisone Adverse Reaction (Verified 02/10/25 14:31) Nausea Sleep Disorder Evaluation Hx of Sleep Apnea: No Do you snore loudly (louder than talking or can be heard through closed doors)?: No Do you often feel tired/ fatigued/ sleepy during daytime?: No Has anyone observed you stop breathing during sleep?: No History of Hypertension (for STOP score): Yes (wears 2L O2 at night.) STOP Results: Negative Advanced Directives Advanced Directives Do you have a Healthcare Power of Linen Room Supervisor?: Yes Living Will: Yes Advance Directives Information Provided: No ( unsure) Advance Directives on File: No DNR Order?:: No Past Medical History Covid-19 Screening Physicial Symptoms Other Clinical Concerns Exposure Risk Pertinent Comorbidities 65 years or older:: Yes Has a serious heart condition:: Yes Past Medical Illness Medical History (Reviewed 02/10/25 @ 14:29 by [place] STEAM CONDITIONER OPERATOR, STEAM CONDITIONER OPERATOR-C) Familial peripheral neuropathy Diabetes mellitus, type 2 Congestive heart failure Easy bruising Shortness of breath on exertion History of irregular heartbeat History of pacemaker Hypothyroidism Depression Insomnia BPH (benign prostatic hyperplasia) Hyperlipidemia Essential (primary) hypertension Sick sinus syndrome Bradycardia Paroxysmal atrial fibrillation Persistent atrial fibrillation Atrial flutter Prostate disease Excessive bleeding Gastric reflux Neuropathy Mobitz (type) I (Wenckebach's) atrioventricular block Wears glasses Cancer Thyroid disease Arthritis Hx of bladder cancer Bladder disease Restless legs Back pain Injury of head and neck Syncope Difficulty swallowing Non-smoker TIA (transient ischemic attack) History of pain when walking History of edema History of stress test Cardiology follow-up encounter Esophageal dysphagia High cholesterol Hypertension Past Surgical History Surgical History Stented coronary artery (01/18/25) History of surgical removal of pilonidal cyst History of permanent cardiac pacemaker placement Status post cardiac pacemaker procedure History of esophagogastroduodenoscopy (EGD) History of laparoscopic cholecystectomy Hx of colonoscopy Hx of repair of left rotator cuff Hx of repair of right rotator cuff Hx of microdiscectomy History of lumbar spinal fusion Family History Summary Family History (Reviewed 02/10/25 @ 14:29 by [place]y [place] STEAM CONDITIONER OPERATOR, STEAM CONDITIONER OPERATOR-C) Mother Cancer of kidney Father Heart failure Social History Smoking History Smoking Status: Never smoker Alcohol Use Alcohol Usage: No Occupation Occupation (List type of work in comments):: Retired Social Environment Status Marital Status: Current Living Arrangements Living Environment:: Spouse Children How many children do you have?: 3 Do any of your children live nearby?: Yes Safety Do you feel safe in your surroundings?: Yes Assistance Do you need any assistance at home?: no Review of Systems Review of Systems Hints Review of Present Symptoms: Reports Fatigue, Heart Arrhythmia/Irregularities, Appetite - Normal, Appetite - Special Diet and Sleep - Normal; Denies Shortness of Breath at Rest, Shortness of Breath with Exertion, PVD, Operative Discomfort, Angina, Wound Healing, Dizziness/Lightheadedness or Sexual Changes Pain Is Patient Pain Free?: Yes Risk Factor Assessment Chief Complaint Chief Complaint: PCI w/stent Obesity Height: 5 ft 11 in Weight:: 273 lb Weight in Pounds: 273.0 lbs Body Mass Index (BMI): 38.0 Nutritional Referral for Obesity: No Physical Inactivity Physical Inactivity: Reg Exercise 30 min/day For Smoking Smoking Risk Guidelines For Dyslipidemia Dyslipidemia Risk Guidelines For Diabetes Mellitus Diabetes Risk Guidelines For Obesity/Overweight Obesity/Overweight Risk Guidelines For Hypertension Hypertension Risk Guidelines For Sedentary Lifestyle Sedentary Lifestyle Risk Guidelines For Depression Depression Risk Guidelines Family History Family History Mother Cancer of kidney Father Heart failure Motivation Motivation to Participate On a scale of 1 to 10, how prepared are you to commit to attending program?: 8 What do you see as barriers to successfully being able to complete the program?: nothing What do you see as the benefits of succesfully completing the program? In other words, what do you hope to get out of participating in the program?: more energy Are there issues you are dealing with that will interfere with completing the program?: no Do you have a spouse or signficant other, family or friends who will help support you to complete the program?: yes
--- NOTE | 2025-02-25 08:07 | PCM.CR.ITP ---
Diagnosis General Information Admitting Diagnosis: PCI w/stent Personal Learning Style:: Audio/Visual Barriers to Learning: No Barriers Stage of change r/t lifestyle modifications:: Contemplation Gave educational material for:: Treating Heart Disease, How The Heart Works, What it means to have Heart Disease, How Coronary Artery Disease is Diagnosed, Heart Procedures, What Heart Medications Do, Risk Factors & Modifications, Living an Active Life, Nutrition, Emotions & Heart Disease, Stress Management & Relaxation and Sleep Disorders & Heart Disease Education/Goals Cardiac Rehabilitation Goals Personal Goals: Initial Assessment: Improve management of stress and emotions, Improve energy level, Participate in home exercise program, Improve knowledge of cardiac disease, Improve muscle strength and endurance, Improve diet and eating habits (eat healthier), Control risk factors (learn risk factor modification) and Other goal: Scale for measuring improvement of personal goals Diagnosis & Disease Process Outcomes/Goals: Pt IDs own risk factors & lifestyle modifications by Session 10, Verbalizes symptoms of angina & response by session 3., Pt independently manages and Other Additional Outcomes/Goals: Plan/Interventions: Assist Pt to ID & engage in lifestyle modification to reduce CVD risk, Instruct on individual risk factors, Review symptoms of angina & emergency actions, Review secondary diagnosis & identify educational needs. and Other see comment 30 day Reassessments:: Not Met 30 day Reassessments:: Not Met 30 day Reassessments:: Not Met Final Reassessments:: Not Met Safety Referral to Physical Therapy: No Referral to [facility] Case Management: No Fall Risk Assessed:: Yes Assistive Devices:: Walker and Wheelchair Exercise - Initial Assessment Visit Date of Eval: 02/25/25 (initial eval ) Mets: Pre-: >3 METS for 30 minutes by discharge, >5 METS for 30 minutes by discharge, >7 METS for 30 minutes by discharge and Unable to meet goal due to: (see comment below) Physician Prescribed Exercise Modalities: SciFit Stepper, SciFit Pro-II Ergometer and SciFit Lateral [place] Frequency: 3x/week for 12 weeks [36 sessions] Intensity: 60-80% of age predicted maximum heart rate reserve Duration: 30 - 45 minutes Current METSs:: 3 Target Heart Rate:: 81-101 Resting Blood Pressure: 125/72 EKG Type: A-fib Outcomes & Goals Goals:: Verbalizes understanding of THR, RPE & goal METS by session 6, Documents in home exercise log/reports 30 min aerobic 5 day/wk by DC, Demonstrates accurate pulse taking by DC and Other additional outcome/goals: see below Intervention & Plan Exercise Program Goals: Instruct on personal THR & RPE, Instruct on MET level & personal MET goal, Show patient to take own pulse /validate performance until accurate, Instruct on home exercise and Other additional plan/int Physical Activity Home Exercise Physical Activity - Home Exercise: Safe Exercise, Warm-up, Self-monitoring, Cool-Down, Home Exercise > 30 min Daily and Sitting Time <3 hours/daily Outcomes & Goals Outcomes/Goals: Demonstrates correct Warm-up/exercise Cool-Down (S3) if = 2.5 METs, Verbalizes symptoms of exercise intolerance by Session 3 (S3) and Demonstrate safe equipment use (S3) & follows exercise prescrition (6) Intervention & Plan Plan/Intervention: Instruct warm-up & cool-down if exercising at > 2 METs, Instruct on symptoms of exercise intolerance & actions to take, Instruct & monitor on saf and Assess intial functional capacity & safety risk Nutrition - Initial Assessment Program Goals Nutrition Program Goals Patient has diagnosis of Hyperlipidemia (ICD E78)?: Yes Visit Date of Eval: 02/25/25 (initital eval) Cholesterol/Lipids (Other Core Measures) Determine presence & major risk factors that modify LDL goal: Hypertension or hypertensive medication, Low HDL cholesterol <40 mg/dL*, Family history of premature CHD in Male < 55 years: female <65 yearsFa and Age men > 45 years; women >/= 55 years Outcomes/Goals: Pt IDs own risk factors & lifestyle modifications by Session 10, Verbalizes symptoms of angina & response by session 3., Pt independently manages and Other Additional Outcomes/Goals: Intervention/Plan: Advocate for lipid panel cholesterol medication if applicable, Instruct on personal lipid levels & lipid goals/NCEP guidelines, Instruct on cholesterol and Other additional plan/int Referral to dietitian:: No Diabetes (Other Core Measures) Diabetes Type: Not Applicable Weight Mgt (Other Care) Height: 5 ft 11 in Weight:: 273 lb BMI: 38.0 Diagnosis Overweight/Obesity 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 Diagnosis High BMI/Morbid Obesity BMI> 35% ICD-10 Z68: Yes Outcomes/Goals: Pt sets, maintains & shows weight loss goal & trend during rehab and Other additional outcomes/goals Intervention/Plan: Instruct on ideal BMI & set weight loss goal w/patient, Assist pt to ID & incorporate diet changes for weight loss by S9, Refer to Structured Weight Loss program as appropriate, Encourage goal of using 250-300dcal per session for weight loss and Other additional plan/interventions Healthy Eating Habits Will attend diet classes:: Yes Outcomes/Goals:: Consume diet rich in vegs,fruits,whole grain/high fiber,fish,lean meat, Limit sat/trans fats,cholesterol & added salts & sugars and Other additional outcome/goals: Intervention/Plan:: Assess current eating habits and Other Additional plan/interventions Education Gave educational materials for:: Signs & symptoms of hypoglycemia, Signs & symptoms of hyperglycemia, Relate diabetes to coronary artery disease and Healthy eating Core - Initial Assessment Visit Date of Eval: 02/25/25 (initial eval ) Medication Compliance Preventative Medication(s):: JOSE A inhibitor, Clopidogrel/P2Y12 inhibit, Statin/lipid and Eliquis H/O mental health issues: depression, anxiety, or addiction?: No Doesn?t believe in the benefits of treatment?: No Believes medications are unnecessary or harmful?: No Has a concern about medication side effects?: No Expresses concern over the cost of medications?: No Outcomes/Goals: Verbalizes medications,desired effect & common side effects @ DC, Pt self-reports following medication regimen, Keeps card in wallet w/medications listed by DC and Other additional outcome/goals: Interventions/plans: Instruct on medication effects & side effects, Review medication list w/patient every two weeks, Instruct importance of taking meds as ordered & assist problem solving and Other additional Tobacco Use Tobacco Use: Non-smoker Hypertension Hypertension Diagnosis:: Hypertension ICD-10 I10 Resting Blood Pressure:: 125/72 [place] [employer] Hypertension Guidelines Outcomes/Goals: Able to verbalize/achieve optimal blood pressure <130/80, Incorporates diet changes & exercise for blood pressure control by DC and Other additional outcomes/goals Interventions/plan: Instruct on optimal blood pressure, hypertension & medications, Instruct on effects of sodium, alcohol, stress, exercise &hypertension and Other additional plan/interventions Tobacco Cessation Referral Smoking Cessation Referral:: No Individual Education/Counseling:: No Education Schedule Given:: Yes Psychosocial - Initial Assess VIsit Date of Eval: 02/25/25 (initial eval ) History of previous Mental disease:: No Target Goals Target Goals Psychosocial Test Tool Used:: PHQ-9 Questionnaire phq-9 Severity See PHQ-9 Score: 2 Referral to Behavioral Health PS - Interventions: Yes: Attend Stress Management Classes Outcomes/Goals: See list Psychosocial Outcomes/Goals:: ID's personal stressors & 2 strategies to manage stress by discharge and Other Additional outcome/goals: Intervention/Plan: See List Interventions/Plan:: Assess stressors,coping strategies & signs of derpression on admission, Instruct/assist pt to develop coping & personal stress Mgt strategies, Refer to Behavioral Health if appropriate, Refer to Physician if appropriate, Instruct patient to recognize signs & symptoms of depression, Instruct patient to recog and Other additional plan/intervention Patient Health Questionnaire PHQ-9 Screening Initial Assessment: 1. Little interest or pleasure in doing things: Not at all 2. Feeling down, depressed, or hopeless: Not at all 3. Trouble falling or staying asleep, or sleeping too much: Several days 4. Feeling tired or having little energy: Several days 5. Poor appetite or overeating: Not at all 6. Feeling bad about yourself -- or that you are a failure or have let yourself or your family down: Not at all 7. Trouble concentrating on things, such as reading the newspaper or watching television: Not at all 8. Moving or speaking so slowly that other people could have noticed. Or the opposite - being so fidgety or restless that you have been moving around a lot more than usual: Not at all 9. Thoughts that you would be better off , or of hurting yourself in some way: Not at all How difficult have these problems made it for you to do your work, take care of things at home, or get along with other people?: Not difficult at all Total Score: 2 SUSHIL-Q SV Test Statements CAD is a disease of the arteries in the heart: I Don't Know Examples of risk factors for heart disease: True Angina is chest pain or discomfort: I Don't Know The benefits of resistance training include: I Don't Know Eating more meat and dairy products: False Anti-platelet medications such as aspirin are important: True The only effective way to manage stress: False An exercise warm-up slowly increases heart rate: True Prepared, processed foods usually have high sodium: True Depression is common after a heart attack: I Don't Know The statin medications lower cholesterol: I Don't Know To control blood pressure, lower the amount of sodium: I Don't Know If someone gets chest discomfort during walking: False Transfats are partially hydrogenated vegetable oils: True Sleep apnea that is not treated increases the risk: True To control cholesterol, one should become a vegetarian: False Someone knows if he/she is exercising at the right level: I Don't Know Diabetes cannot be prevented with exercise & health eating: False Stress is a large risk for heart attack: True A diet that can help lower blood pressure is rich in: I Don't Know Total Score Total Correct Responses: 11 Self-Efficacy 6-Item Scale Initial Assessment: We would like to know how confident you are in doing certain activities. Please select your confidence level for: Fatigue Select Number: 1 Physical Discomfort or Pain Select Number: 1 Emotional Distress Select Number: 4 Other Symptoms or Health Problems Select Number: 5 Different Tasks and Activities Select Number: 3 Medication Select Number: 3 Total Score:: 2 Nutrition Survey Nutrition Survey Instructions Scoring Instructions Nutrition Survey Initial: Have you lost >10 lbs over the past 2 months without trying?: No Are you following a special diet at home for diabetes, low fat, or low salt?: Yes Are you interested in meeting with a dietitian for help understanding your diet?: Yes Do you eat less than 3 meals a day?: No Do you eat fatty meats (cuevas, sausage, ribs, etc), fried foods, desserts, large amounts of salad dressings, margarine, butter, or cheese most days?: No Do you have food allergies? [Enter types in comment field]: No Do you eat in restaurants more than 3 times a week?: No Do you season food with salt, seasoning salt, or garlic salt?: No Do you used canned, boxed, frozen meals, or soups, seasoning packets?: No Total Score:: 2 Exercise - 30-day Assessment Physician Prescribed Exercise Modalities: SciFit Stepper, SciFit Pro-II Ergometer and SciFit Lateral Personalized Living Assistant Exercise - 60-day Assessment Physician Prescribed Exercise Modalities: SciFit Stepper, SciFit Pro-II Ergometer and SciFit Lateral [place] Exercise - 90-day Assessment Physician Prescribed Exercise Modalities: SciFit Stepper, SciFit Pro-II Ergometer and SciFit Lateral [place] Exercise - Final/Discharge Physician Prescribed Exercise Modalities: SciFit Stepper, SciFit Pro-II Ergometer and SciFit Lateral [place] Frequency: 3x/week for 12 weeks [36 sessions] Intensity: 60-80% of age predicted maximum heart rate reserve Current METSs:: 3 Target Heart Rate:: 81-101 Nutrition - 30-Day Assessment Weight Mgt (Other Care) Height: 5 ft 11 in Weight:: 273 lb BMI: 38.0 Nutrition - 60-Day Assessment Weight Mgt (Other Care) Height: 5 ft 11 in Weight:: 273 lb BMI: 38.0 Core - Final Assessment Hypertension Resting Blood Pressure:: 125/72 [place] [employer] Hypertension Guidelines Core - 60-Day Assessment Hypertension Resting Blood Pressure:: 125/72 [place] [employer] Hypertension Guidelines Psychosocial - 30-Day Assess Target Goals Target Goals Referral to Behavioral Health PS - Interventions: Yes: Attend Stress Management Classes Psychosocial - 60-Day Assess Target Goals Target Goals Referral to Behavioral Health PS - Interventions: Yes: Attend Stress Management Classes Psychosocial - 90-Day Assess Target Goals Target Goals Referral to Behavioral Health PS - Interventions: Yes: Attend Stress Management Classes Psychosocial - Final Assessmen Target Goals Target Goals Psychosocial Test phq-9 Severity See PHQ-9 Score: 2 Referral to Behavioral Health PS - Interventions: Yes: Attend Stress Management Classes Nutrition - 90-Day Assessment Weight Mgt (Other Care) Height: 5 ft 11 in Weight:: 273 lb BMI: 38.0 Nutrition - Final Assessment Program Goals Patient has diagnosis of Hyperlipidemia (ICD E78)?: Yes Weight Mgt (Other Care) Height: 5 ft 11 in Weight:: 273 lb BMI: 38.0
[2025-02-25 08:13] VITALS: BP 125/72
[2025-02-25 09:00] VITALS: BMI 38.0
[2025-02-25 09:03] VITALS: BMI 38.0
== END | disposition home or self-care (01) ==
PROVIDERS: PCP Family Medicine; Referring Provider Internal Medicine Cardiovascular Disease; Visit Provider Internal Medicine Cardiovascular Disease
DX: I25.10 Atherosclerotic heart disease of native coronary artery without angina pectoris (principal); I48.19 Other persistent atrial fibrillation; Z95.0 Presence of cardiac pacemaker; Z95.5 Presence of coronary angioplasty implant and graft

== ENCOUNTER 2025-03-21 14:15 | Outpatient (RCR) | payer MEDICARE, SELFPAY ==
[2025-02-25 09:03] VITALS: BMI 38.0
== END 2025-03-22 23:59 ==
LOC: CR 14:15
PROVIDERS: PCP Family Medicine; Referring Provider Internal Medicine Cardiovascular Disease; Visit Provider Internal Medicine Cardiovascular Disease
DX: Z95.5 Presence of coronary angioplasty implant and graft (principal); I25.10 Atherosclerotic heart disease of native coronary artery without angina pectoris; Z95.0 Presence of cardiac pacemaker; I48.19 Other persistent atrial fibrillation
CPT/HCPCS: 93798

== ENCOUNTER 2025-04-22 14:15 | Outpatient (RCR) | payer MEDICARE, SELFPAY ==
[2025-02-25 09:03] VITALS: BMI 38.0
--- NOTE | 2025-03-24 09:24 | CR.ITP_ITS ---
Exercise - Initial Assessment Visit Session #:: 9 Physician Prescribed Exercise Modalities: SciFit Stepper and SciFit Lateral Training And Development Specialist Nutrition - Initial Assessment Weight Mgt (Other Care) Height: 5 ft 11 in Weight:: 261 lb BMI: 36.3 Psychosocial - Initial Assess Referral to Behavioral Health PS - Interventions: Yes: Attend Stress Management Classes Exercise - 30-day Assessment Visit Date of Eval: 03/24/25 Session #:: 9 Physician Prescribed Exercise Modalities: SciFit Stepper and SciFit Lateral [place] Frequency: 3x/week for 12 weeks [36 sessions] Intensity: 60-80% of age predicted maximum heart rate reserve Duration: 30 - 45 minutes Current METSs:: 3.5 Target Heart Rate:: 81-101 Current RPE:: 12 Maximum Excercise HR:: 108 Resting Blood Pressure: 94/50 Maximum Exercise Blood Pressure: 138/68 EKG Type: Afib/flutter w/ occas to freq ventricular paced beats, rare PVC Outcomes & Goals Goals:: Verbalizes understanding of THR, RPE & goal METS by session 6, Documents in home exercise log/reports 30 min aerobic 5 day/wk by DC, Demonstrates accurate pulse taking by DC and Other additional outcome/goals: see below Intervention & Plan Exercise Program Goals: Instruct on personal THR & RPE, Instruct on MET level & personal MET goal, Show patient to take own pulse /validate performance until accurate, Instruct on home exercise and Other additional plan/int Physical Activity Home Exercise Physical Activity - Home Exercise: Safe Exercise, Warm-up, Self-monitoring, Cool-Down, Home Exercise > 30 min Daily and Sitting Time <3 hours/daily Outcomes & Goals Outcomes/Goals: Demonstrates correct Warm-up/exercise Cool-Down (S3) if = 2.5 METs, Verbalizes symptoms of exercise intolerance by Session 3 (S3), Demonstrate safe equipment use (S3) & follows exercise prescrition (6) and Other: See below Intervention & Plan Plan/Intervention: Instruct warm-up & cool-down if exercising at > 2 METs, Instruct on symptoms of exercise intolerance & actions to take, Instruct & monitor on saf, Assess intial functional capacity & safety risk and Other See below 30-day Reassessments 30 day Reassessments:: Progressing Reassessment Notes & Comments:: Pt oriented to equipment. RPE explained to pt. Pt demonstrates understanding in his daily sessions. Exercise - 60-day Assessment Physician Prescribed Exercise Modalities: SciFit Stepper and SciFit Lateral Training And Development Specialist Exercise - 90-day Assessment Physician Prescribed Exercise Modalities: SciFit Stepper and SciFit Lateral [place] Exercise - Final/Discharge Physician Prescribed Exercise Modalities: SciFit Stepper and SciFit Lateral Training And Development Specialist Nutrition - 30-Day Assessment Program Goals Nutrition Program Goals Patient has diagnosis of Hyperlipidemia (ICD E78)?: Yes Visit Date of Eval: 03/24/25 Session #:: 9 (Nutrition survey score of 2) Cholesterol/Lipids (Other Core Measures) Determine presence & major risk factors that modify LDL goal: Hypertension or hypertensive medication, Low HDL cholesterol <40 mg/dL*, Family history of premature CHD in Male < 55 years: female <65 yearsFa and Age men > 45 years; women >/= 55 years Outcomes/Goals: Pt IDs own risk factors & lifestyle modifications by Session 10, Verbalizes symptoms of angina & response by session 3., Pt independently manages and Other Additional Outcomes/Goals: Intervention/Plan: Advocate for lipid panel cholesterol medication if applicable, Instruct on personal lipid levels & lipid goals/NCEP guidelines, Instruct on cholesterol and Other additional plan/int Referral to dietitian:: No (declines) Diabetes (Other Core Measures) Diabetes Type: Not Applicable Weight Mgt (Other Care) Height: 5 ft 11 in Weight:: 261 lb BMI: 36.3 Diagnosis Overweight/Obesity 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 Diagnosis High BMI/Morbid Obesity BMI> 35% ICD-10 Z68: Yes Outcomes/Goals: Pt sets, maintains & shows weight loss goal & trend during rehab and Other additional outcomes/goals Intervention/Plan: Instruct on ideal BMI & set weight loss goal w/patient, Assist pt to ID & incorporate diet changes for weight loss by S9, Refer to Structured Weight Loss program as appropriate, Encourage goal of using 250- 300dcal per session for weight loss and Other additional plan/interventions 30 day Reassessments:: Progressing Reassessment Notes & Comments:: Pt has lost 17 lbs. Pt is scheduled to attend nutrition class. Low sodium heart healthy diet encouraged. Healthy Eating Habits Will attend diet classes:: Yes Outcomes/Goals:: Consume diet rich in vegs,fruits,whole grain/high fiber,fish,lean meat, Limit sat/trans fats,cholesterol & added salts & sugars and Other additional outcome/goals: Intervention/Plan:: Assess current eating habits and Other Additional plan/interventions 30-day Reassessments:: Progressing Reassessment Notes & Comments:: Pt is scheduled to attend nutrition class. Low sodium heart healthy diet encouraged. Education Gave educational materials for:: Signs & symptoms of hypoglycemia, Signs & symptoms of hyperglycemia, Relate diabetes to coronary artery disease and Healthy eating Nutrition - 60-Day Assessment Weight Mgt (Other Care) Height: 5 ft 11 in Weight:: 261 lb BMI: 36.3 Core - 30-Day Assessment Visit Date of Eval: 03/24/25 Session #:: 9 Medication Compliance Preventative Medication(s):: JOSE A inhibitor, Clopidogrel/P2Y12 inhibit, Statin/lipid and Eliquis H/O mental health issues: depression, anxiety, or addiction?: No Doesn’t believe in the benefits of treatment?: No Believes medications are unnecessary or harmful?: No Has a concern about medication side effects?: No Expresses concern over the cost of medications?: No Outcomes/Goals: Verbalizes medications,desired effect & common side effects @ DC, Pt self-reports following medication regimen, Keeps card in wallet w/medications listed by DC and Other additional outcome/goals: Interventions/plans: Instruct on medication effects & side effects, Review medication list w/patient every two weeks, Instruct importance of taking meds as ordered & assist problem solving and Other additional 30-day Reassessments:: Progressing Reassessment Notes & Comments:: Pt is currently taking meds as prescribed. Pt to attend cardiac meds class. Tobacco Use Tobacco Use: Non-smoker Hypertension Hypertension Diagnosis:: Hypertension ICD-10 I10 Resting Blood Pressure:: 94/50 [place] [employer] Hypertension Guidelines Peak Exercise Blood Pressure:: 138/68 Outcomes/Goals: Able to verbalize/achieve optimal blood pressure <130/80, Incorporates diet changes & exercise for blood pressure control by DC and Other additional outcomes/goals Interventions/plan: Instruct on optimal blood pressure, hypertension & medications, Instruct on effects of sodium, alcohol, stress, exercise &hyperten zulema and Other additional plan/interventions 30 day Reassessments:: Progressing Reassessment Notes & Comments:: Pt's BP's are within AHA normal limits. Will continue to monitor and report to pt's physician if necessary. Tobacco Cessation Referral Smoking Cessation Referral:: No Individual Education/Counseling:: No Education Schedule Given:: Yes Psychosocial - 30-Day Assess VIsit Date of Eval: 03/24/25 History of previous Mental disease:: No Psychosocial Test Tool Used:: PHQ-9 Questionnaire phq-9 Severity See PHQ-9 Score: 2 Referral to Behavioral Health PS - Interventions: Yes: Attend Stress Management Classes Outcomes/Goals: See list Psychosocial Outcomes/Goals:: ID's personal stressors & 2 strategies to manage stress by discharge and Other Additional outcome/goals: Intervention/Plan: See List Interventions/Plan:: Assess stressors,coping strategies & signs of derpression on admission, Instruct/assist pt to develop coping & personal stress Mgt strategies, Refer to Behavioral Health if appropriate, Refer to Physician if appropriate, Instruct patient to recognize signs & symptoms of depression, I nstruct patient to recog and Other additional plan/intervention 30-day Reassessments: 30 day Reassessments:: Progressing Reassessment Notes & Comments:: Pt denies any psychosocial issues at this time. Pt to attend stress management class. Will reassess every 30 days. Psychosocial - 60-Day Assess Referral to Behavioral Health PS - Interventions: Yes: Attend Stress Management Classes Outcomes/Goals: See list Psychosocial Outcomes/Goals:: ID's personal stressors & 2 strategies to manage stress by discharge and Other Additional outcome/goals: Psychosocial - 90-Day Assess Referral to Behavioral Health PS - Interventions: Yes: Attend Stress Management Classes Psychosocial - Final Assessmen Referral to Behavioral Health PS - Interventions: Yes: Attend Stress Management Classes Nutrition - 90-Day Assessment Weight Mgt (Other Care) Height: 5 ft 11 in Weight:: 261 lb BMI: 36.3 Nutrition - Final Assessment Weight Mgt (Other Care) Height: 5 ft 11 in Weight:: 261 lb BMI: 36.3
[2025-03-24 09:32] VITALS: BP 94/50; BMI 36.3
--- NOTE | 2025-04-20 08:29 | PCM.CR.ITP ---
Exercise - Initial Assessment Physician Prescribed Exercise Modalities: SciFit Stepper and SciFit Lateral [place] Nutrition - Initial Assessment Weight Mgt (Other Care) Height: 5 ft 11 in Weight:: 261 lb BMI: 36.3 Core - Initial Assessment Hypertension Resting Blood Pressure:: 118/56 [place] [employer] Hypertension Guidelines Psychosocial - Initial Assess Referral to Behavioral Health PS - Interventions: Yes: Attend Stress Management Classes Exercise - 30-day Assessment Physician Prescribed Exercise Modalities: SciFit Stepper and SciFit Lateral Saddle Stitch Operator Exercise - 60-day Assessment Visit Date of Eval: 04/20/25 Session #:: 16 Physician Prescribed Exercise Modalities: SciFit Stepper and SciFit Lateral [place] Frequency: 3x/week for 12 weeks [36 sessions] Intensity: 60-80% of age predicted maximum heart rate reserve Duration: 30 - 45 minutes Current METSs:: 3.5 Target Heart Rate:: 81-101 Current RPE:: 12-13 Maximum Excercise HR:: 89 Resting Blood Pressure: 122/68 Maximum Exercise Blood Pressure: 132/58 EKG Type: Ventricular paced w/underlying afib/flutter and rare PVC's Outcomes & Goals Goals:: Verbalizes understanding of THR, RPE & goal METS by session 6, Documents in home exercise log/reports 30 min aerobic 5 day/wk by DC, Demonstrates accurate pulse taking by DC and Other additional outcome/goals: see below Intervention & Plan Exercise Program Goals: Instruct on personal THR & RPE, Instruct on MET level & personal MET goal, Show patient to take own pulse /validate performance until accurate, Instruct on home exercise and Other additional plan/int Physical Activity Home Exercise Physical Activity - Home Exercise: Safe Exercise, Warm-up, Self-monitoring, Cool-Down, Home Exercise > 30 min Daily and Sitting Time <3 hours/daily Outcomes & Goals Outcomes/Goals: Demonstrates correct Warm-up/exercise Cool-Down (S3) if = 2.5 METs, Verbalizes symptoms of exercise intolerance by Session 3 (S3), Demonstrate safe equipment use (S3) & follows exercise prescrition (6) and Other: See below Intervention & Plan Plan/Intervention: Instruct warm-up & cool-down if exercising at > 2 METs, Instruct on symptoms of exercise intolerance & actions to take, Instruct & monitor on saf, Assess intial functional capacity & safety risk and Other See below 30-day Reassessments 30 day Reassessments:: Progressing Reassessment Notes & Comments:: Proper warm up and cool down demonstrated and explained to pt. Pt is able to return demonstration in their daily sessions. Exercise - 90-day Assessment Physician Prescribed Exercise Modalities: SciFit Stepper and SciFit Lateral Saddle Stitch Operator Exercise - Final/Discharge Physician Prescribed Exercise Modalities: SciFit Stepper and SciFit Lateral [place] Nutrition - 30-Day Assessment Weight Mgt (Other Care) Height: 5 ft 11 in Weight:: 261 lb BMI: 36.3 Nutrition - 60-Day Assessment Program Goals Nutrition Program Goals Patient has diagnosis of Hyperlipidemia (ICD E78)?: Yes Visit Date of Eval: 04/20/25 Session #:: 16 (Nutrition survey score of 2.) Cholesterol/Lipids (Other Core Measures) Determine presence & major risk factors that modify LDL goal: Cigarette smoking, Hypertension or hypertensive medication, Low HDL cholesterol <40 mg/dL*, Family history of premature CHD in Male < 55 years: female <65 yearsFa and Age men > 45 years; women >/= 55 years Outcomes/Goals: Pt IDs own risk factors & lifestyle modifications by Session 10, Verbalizes symptoms of angina & response by session 3., Pt independently manages and Other Additional Outcomes/Goals: Intervention/Plan: Advocate for lipid panel cholesterol medication if applicable, Instruct on personal lipid levels & lipid goals/NCEP guidelines, Instruct on cholesterol and Other additional plan/int Diabetes (Other Core Measures) Diabetes Type: Not Applicable Weight Mgt (Other Care) Height: 5 ft 11 in Weight:: 261 lb BMI: 36.3 Diagnosis Overweight/Obesity 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 Diagnosis High BMI/Morbid Obesity BMI> 35% ICD-10 Z68: Yes Outcomes/Goals: Pt sets, maintains & shows weight loss goal & trend during rehab and Other additional outcomes/goals Intervention/Plan: Instruct on ideal BMI & set weight loss goal w/patient, Assist pt to ID & incorporate diet changes for weight loss by S9, Refer to Structured Weight Loss program as appropriate, Encourage goal of using 250-300dcal per session for weight loss and Other additional plan/interventions 30 day Reassessments:: Progressing Reassessment Notes & Comments:: Pt has recently lost 5 lbs. Pt is scheduled to attend nutrition classes. Low sodium heart healthy diet encouraged. Healthy Eating Habits Will attend diet classes:: Yes Outcomes/Goals:: Consume diet rich in vegs,fruits,whole grain/high fiber,fish,lean meat, Limit sat/trans fats,cholesterol & added salts & sugars and Other additional outcome/goals: Intervention/Plan:: Assess current eating habits and Other Additional plan/interventions 30-day Reassessments:: Progressing Reassessment Notes & Comments:: Pt is scheduled to attend nutrition classes. Low sodium heart healthy diet encouraged. Education Gave educational materials for:: Signs & symptoms of hypoglycemia, Signs & symptoms of hyperglycemia, Relate diabetes to coronary artery disease and Healthy eating Core - Final Assessment Hypertension Resting Blood Pressure:: 118/56 [place] [employer] Hypertension Guidelines Core - 60-Day Assessment Visit Date of Eval: 04/20/25 Session #:: 16 Medication Compliance Preventative Medication(s):: JOSE A inhibitor, Clopidogrel/P2Y12 inhibit, Statin/lipid and Eliquis H/O mental health issues: depression, anxiety, or addiction?: No Doesn’t believe in the benefits of treatment?: No Believes medications are unnecessary or harmful?: No Has a concern about medication side effects?: No Expresses concern over the cost of medications?: No Outcomes/Goals: Verbalizes medications,desired effect & common side effects @ DC, Pt self-reports following medication regimen, Keeps card in wallet w/medications listed by DC and Other additional outcome/goals: Interventions/plans: Instruct on medication effects & side effects, Review medication list w/patient every two weeks, Instruct importance of taking meds as ordered & assist problem solving and Other additional Tobacco Use Tobacco Use: Non-smoker Hypertension Hypertension Diagnosis:: Hypertension ICD-10 I10 Resting Blood Pressure:: 122/68 Resting Blood Pressure:: 118/56 [place] [employer] Hypertension Guidelines Peak Exercise Blood Pressure:: 132/58 Outcomes/Goals: Able to verbalize/achieve optimal blood pressure <130/80, Incorporates diet changes & exercise for blood pressure control by DC and Other additional outcomes/goals Interventions/plan: Instruct on optimal blood pressure, hypertension & medications, Instruct on effects of sodium, alcohol, stress, exercise &hypertension and Other additional plan/interventions 30 day Reassessments:: Progressing Reassessment Notes & Comments:: Pt's BP's are within AHA normal limits. Will continue to monitor and report to pt's physician if necessary. Tobacco Cessation Referral Smoking Cessation Referral:: No Individual Education/Counseling:: No Education Schedule Given:: Yes Psychosocial - 30-Day Assess Referral to Behavioral Health PS - Interventions: Yes: Attend Stress Management Classes Outcomes/Goals: See list Psychosocial Outcomes/Goals:: ID's personal stressors & 2 strategies to manage stress by discharge and Other Additional outcome/goals: Psychosocial - 60-Day Assess VIsit Date of Eval: 04/20/25 Session #:: 16 History of previous Mental disease:: No Psychosocial Test Tool Used:: [employer] QOL Cardiac and PHQ-9 Questionnaire phq-9 Severity See PHQ-9 Score: 2 Referral to Behavioral Health PS - Interventions: Yes: Attend Stress Management Classes Outcomes/Goals: See list Psychosocial Outcomes/Goals:: ID's personal stressors & 2 strategies to manage stress by discharge and Other Additional outcome/goals: Intervention/Plan: See List Interventions/Plan:: Assess stressors,coping strategies & signs of derpression on admission, Instruct/assist pt to develop coping & personal stress Mgt strategies, Refer to Behavioral Health if appropriate, Refer to Physician if appropriate, Instruct patient to recognize signs & symptoms of depression, Instruct patient to recog and Other additional plan/intervention 30-day Reassessments: 30 day Reassessments:: Progressing Reassessment Notes & Comments:: Pt denies any psychosocial issues at this time. Pt to attend stress management class. Will reassess every 30 days. Psychosocial - 90-Day Assess Referral to Behavioral Health PS - Interventions: Yes: Attend Stress Management Classes Psychosocial - Final Assessmen Referral to Behavioral Health PS - Interventions: Yes: Attend Stress Management Classes Nutrition - 90-Day Assessment Weight Mgt (Other Care) Height: 5 ft 11 in Weight:: 261 lb BMI: 36.3 Nutrition - Final Assessment Weight Mgt (Other Care) Height: 5 ft 11 in Weight:: 261 lb BMI: 36.3
[2025-04-20 08:38] VITALS: BP 118/56; BP 122/68; BMI 36.3
== END 2025-04-22 23:59 ==
LOC: CR 14:15
PROVIDERS: PCP Family Medicine; Referring Provider Internal Medicine Cardiovascular Disease; Visit Provider Internal Medicine Cardiovascular Disease
DX: Z95.5 Presence of coronary angioplasty implant and graft (principal); I25.10 Atherosclerotic heart disease of native coronary artery without angina pectoris; Z95.0 Presence of cardiac pacemaker; I48.19 Other persistent atrial fibrillation
CPT/HCPCS: 93798

== ENCOUNTER 2025-05-18 14:15 | Outpatient (RCR) | payer MEDICARE, SELFPAY ==
[2025-04-20 08:38] VITALS: BMI 36.3
--- NOTE | 2025-05-13 09:05 | CR.ITP_ITS ---
Exercise - Initial Assessment Physician Prescribed Exercise Modalities: SciFit Stepper and SciFit Lateral Angle Shear Set Up Operator Nutrition - Initial Assessment Weight Mgt (Other Care) Height: 5 ft 11 in Weight:: 261 lb BMI: 36.3 Psychosocial - Initial Assess Referral to Behavioral Health PS - Interventions: Yes: Attend Stress Management Classes and No: Referral to Behavioral Health if PHQ-9 score >9:, No: Referral to [facility] and No: Referral to Physician if PHQ-9 if score is 5-9: Patient Health Questionnaire PHQ-9 Screening 90-Day Re-eval Assessment: 1. Little interest or pleasure in doing things: Not at all 2. Feeling down, depressed, or hopeless: Not at all 3. Trouble falling or staying asleep, or sleeping too much: Several days 4. Feeling tired or having little energy: Several days 5. Poor appetite or overeating: Not at all 6. Feeling bad about yourself -- or that you are a failure or have let yourself or your family down: Not at all 7. Trouble concentrating on things, such as reading the newspaper or watching television: Not at all 8. Moving or speaking so slowly that other people could have noticed. Or the opposite - being so fidgety or restless that you have been moving around a lot more than usual: Not at all 9. Thoughts that you would be better off , or of hurting yourself in some way: Not at all How difficult have these problems made it for you to do your work, take care of things at home, or get along with other people?: Not difficult at all Total Score: 2 Exercise - 30-day Assessment Physician Prescribed Exercise Modalities: SciFit Stepper and SciFit Lateral Angle Shear Set Up Operator Exercise - 60-day Assessment Physician Prescribed Exercise Modalities: SciFit Stepper and SciFit Lateral [place] Exercise - 90-day Assessment Visit Date of Eval: 05/13/25 Session #:: 26 Physician Prescribed Exercise Modalities: SciFit Stepper and SciFit Lateral [place] Frequency: 3x/week for 12 weeks [36 sessions] Intensity: 60-80% of age predicted maximum heart rate reserve Duration: 30 - 45 minutes METs - Progression 0.5-1.0 weekly:: 0.5 Current METSs:: 3.5 Target Heart Rate:: 81-101 Target RPE 12-16:: 12-16 Current RPE:: 13 Maximum Excercise HR:: 90 Resting Blood Pressure: 118/58 Maximum Exercise Blood Pressure: 130/60 EKG Type: ventricular paced with underlying afib/flutter, rare pvc. Current Physical Activity or Exercising minutes: 30 Outcomes & Goals Goals:: Verbalizes understanding of THR, RPE & goal METS by session 6, Documents in home exercise log/reports 30 min aerobic 5 day/wk by DC and Demonstrates accurate pulse taking by DC Intervention & Plan Exercise Program Goals: Instruct on personal THR & RPE, Instruct on MET level & personal MET goal, Show patient to take own pulse /validate performance until accurate and Instruct on home exercise 30-day Reassessments 30 day Reassessments:: Progressing Reassessment Notes & Comments:: Pt maintaining his target heart rate during exercise. Physical Activity Home Exercise Physical Activity - Home Exercise: Safe Exercise, Warm-up, Self-monitoring, Cool-Down, Home Exercise > 30 min Daily and Sitting Time <3 hours/daily Outcomes & Goals Outcomes/Goals: Demonstrates correct Warm-up/exercise Cool-Down (S3) if = 2.5 METs, Verbalizes symptoms of exercise intolerance by Session 3 (S3) and Demonstrate safe equipment use (S3) & follows exercise prescrition (6) Intervention & Plan Plan/Intervention: Instruct warm-up & cool-down if exercising at > 2 METs, Instruct on symptoms of exercise intolerance & actions to take, Instruct & monitor on saf and Assess intial functional capacity & safety risk 30-day Reassessments 30 day Reassessments:: Progressing Reassessment Notes & Comments:: Pt is warming up and cooling down as directed. continues to increase his workloads weekly. tolerating exercise well. Exercise - Final/Discharge Physician Prescribed Exercise Modalities: SciFit Stepper and SciFit Lateral Angle Shear Set Up Operator Nutrition - 30-Day Assessment Weight Mgt (Other Care) Height: 5 ft 11 in Weight:: 261 lb BMI: 36.3 Nutrition - 60-Day Assessment Weight Mgt (Other Care) Height: 5 ft 11 in Weight:: 261 lb BMI: 36.3 Core - 30-Day Assessment Hypertension [place] [employer] Hypertension Guidelines Reassessment Notes & Comments:: BP WNL before, during and after exercise. Core - Final Assessment Hypertension [place] [employer] Hypertension Guidelines Reassessment Notes & Comments:: BP WNL before, during and after exercise. Core - 90 Day Assessment Visit Date of Eval: 05/13/25 Session #:: 26 Medication Compliance Preventative Medication(s):: JOSE A inhibitor, Clopidogrel/P2Y12 inhibit, Statin/lipid and Eliquis H/O mental health issues: depression, anxiety, or addiction?: No Doesn’t believe in the benefits of treatment?: No Believes medications are unnecessary or harmful?: No Has a concern about medication side effects?: No Expresses concern over the cost of medications?: No Outcomes/Goals: Verbalizes medications,desired effect & common side effects @ DC, Pt self-reports following medication regimen and Keeps card in wallet w/medications listed by DC Interventions/plans: Instruct on medication effects & side effects, Review medication list w/patient every two weeks and Instruct importance of taking meds as ordered & assist problem solving 30-day Reassessments:: Progressing Reassessment Notes & Comments:: taking medications as prescribed at this time. no medication concerns. Tobacco Use Tobacco Use: Non-smoker Hypertension Hypertension Diagnosis:: Hypertension ICD-10 I10 Resting Blood Pressure:: 118/58 [place] [employer] Hypertension Guidelines Peak Exercise Blood Pressure:: 130/60 Outcomes/Goals: Able to verbalize/achieve optimal blood pressure <130/80, Incorporates diet changes & exercise for blood pressure control by DC and Other additional outcomes/goals Interventions/plan: Instruct on optimal blood pressure, hypertension & medications, Instruct on effects of sodium, alcohol, stress, exercise &hypertension and Other additional plan/interventions 30 day Reassessments:: Progressing Reassessment Notes & Comments:: BP WNL before, during and after exercise. Tobacco Cessation Referral Smoking Cessation Referral:: No Individual Education/Counseling:: No Education Schedule Given:: Yes Psychosocial - 30-Day Assess Referral to Behavioral Health PS - Interventions: Yes: Attend Stress Management Classes and No: Referral to Behavioral Health if PHQ-9 score >9:, No: Referral to [facility] and No: Referral to Physician if PHQ-9 if score is 5-9: Psychosocial - 60-Day Assess Referral to Behavioral Health PS - Interventions: Yes: Attend Stress Management Classes and No: Referral to Behavioral Health if PHQ-9 score >9:, No: Referral to [facility] and No: Referral to Physician if PHQ-9 if score is 5-9: Psychosocial - 90-Day Assess VIsit Date of Eval: 05/13/25 Session #:: 26 Psychosocial Test Tool Used:: PHQ-9 Questionnaire phq-9 Severity See PHQ-9 Score: 2 Total Score:: 2 Referral to Behavioral Health PS - Interventions: Yes: Attend Stress Management Classes and No: Referral to Behavioral Health if PHQ-9 score >9:, No: Referral to [facility] and No: Referral to Physician if PHQ-9 if score is 5-9: Outcomes/Goals: See list Psychosocial Outcomes/Goals:: ID's personal stressors & 2 strategies to manage stress by discharge and Other Additional outcome/goals: Intervention/Plan: See List Interventions/Plan:: Assess stressors,coping strategies & signs of derpression on admission, Instruct/assist pt to develop coping & personal stress Mgt strategies, Refer to Behavioral Health if appropriate, Refer to Physician if appropriate, Instruct patient to recognize signs & symptoms of depression, Instruct patient to recog and Other additional plan/intervention 30-day Reassessments: 30 day Reassessments:: Progressing Reassessment Notes & Comments:: Regan is a pleasure to have in cardiac rehab. he is motivated and participates in class. no psychosocial concerns at this time. he will attend emotion and stress classes in the upcoming weeks. Psychosocial - Final Assessmen Psychosocial Test phq-9 Severity Total Score:: 2 Referral to Behavioral Health PS - Interventions: Yes: Attend Stress Management Classes and No: Referral to Behavioral Health if PHQ-9 score >9:, No: Referral to [facility] and No: Referral to Physician if PHQ-9 if score is 5-9: Nutrition - 90-Day Assessment Program Goals Nutrition Program Goals Patient has diagnosis of Hyperlipidemia (ICD E78)?: Yes Visit Date of Eval: 05/13/25 (nutrition score of 2) Session #:: 26 Cholesterol/Lipids (Other Core Measures) Determine presence & major risk factors that modify LDL goal: Hypertension or hypertensive medication, Low HDL cholesterol <40 mg/dL*, Family history of premature CHD in Male < 55 years: female <65 yearsFa and Age men > 45 years; women >/= 55 years Outcomes/Goals: Pt IDs own risk factors & lifestyle modifications by Session 10, Verbalizes symptoms of angina & response by session 3. and Pt independently manages Intervention/Plan: Advocate for lipid panel cholesterol medication if applicable, Instruct on personal lipid levels & lipid goals/NCEP guidelines, Instruct on cholesterol and Other additional plan/int 30-day Reassessments:: Progressing Reassessment Notes & Comments:: lipid panel completed earlier this year. Diabetes (Other Core Measures) Diabetes Type: Not Applicable Weight Mgt (Other Care) Height: 5 ft 11 in Weight:: 261 lb BMI: 36.3 Diagnosis High BMI/Morbid Obesity BMI> 35% ICD-10 Z68: Yes Outcomes/Goals: Pt sets, maintains & shows weight loss goal & trend during rehab and Other additional outcomes/goals Intervention/Plan: Instruct on ideal BMI & set weight loss goal w/patient, Assist pt to ID & incorporate diet changes for weight loss by S9, Refer to Structured Weight Loss program as appropriate, Encourage goal of using 250- 300dcal per session for weight loss and Other additional plan/interventions 30 day Reassessments:: Progressing Reassessment Notes & Comments:: attended nutrition classes this week. will continue to weigh weekly to track progress. Healthy Eating Habits Will attend diet classes:: Yes Outcomes/Goals:: Consume diet rich in vegs,fruits,whole grain/high fiber,fish,lean meat, Limit sat/trans fats,cholesterol & added salts & sugars and Other additional outcome/goals: Intervention/Plan:: Assess current eating habits and Other Additional plan/interventions 30-day Reassessments:: Progressing Reassessment Notes & Comments:: low sodium diet encouraged. Education Gave educational materials for:: Signs & symptoms of hypoglycemia, Signs & symptoms of hyperglycemia, Relate diabetes to coronary artery disease and Healthy eating Nutrition - Final Assessment Weight Mgt (Other Care) Height: 5 ft 11 in Weight:: 261 lb BMI: 36.3
[2025-05-13 09:17] VITALS: BP 118/58; BMI 36.3
[2025-05-13 11:20] VITALS: BP 118/58
== END 2025-05-22 23:59 ==
LOC: CR 14:15
PROVIDERS: PCP Family Medicine; Referring Provider Internal Medicine Cardiovascular Disease; Visit Provider Internal Medicine Cardiovascular Disease
DX: I25.10 Atherosclerotic heart disease of native coronary artery without angina pectoris (principal); Z95.0 Presence of cardiac pacemaker; I48.19 Other persistent atrial fibrillation; Z95.5 Presence of coronary angioplasty implant and graft
CPT/HCPCS: 93798

== ENCOUNTER 2025-06-06 14:15 | Outpatient (RCR) | payer MEDICARE, SELFPAY ==
[2025-05-13 09:17] VITALS: BMI 36.3
--- NOTE | 2025-06-10 08:13 | PCM.CR.ITP ---
Exercise - Initial Assessment Physician Prescribed Exercise Modalities: SciFit Stepper and SciFit Lateral Kiln Packer Nutrition - Initial Assessment Program Goals Nutrition Program Goals Patient has diagnosis of Hyperlipidemia (ICD E78)?: Yes Weight Mgt (Other Care) Height: 5 ft 11 in Weight:: 261 lb BMI: 36.3 Core - Initial Assessment Hypertension Resting Blood Pressure:: 100/56 [place] [employer] Hypertension Guidelines Psychosocial - Initial Assess Psychosocial Test phq-9 Severity See PHQ-9 Score: 2 Referral to Behavioral Health PS - Interventions: Yes: Attend Stress Management Classes Exercise - 30-day Assessment Physician Prescribed Exercise Modalities: SciFit Stepper and SciFit Lateral [place] Exercise - 60-day Assessment Physician Prescribed Exercise Modalities: SciFit Stepper and SciFit Lateral Kiln Packer Exercise - 90-day Assessment Physician Prescribed Exercise Modalities: SciFit Stepper and SciFit Lateral [place] Exercise - Final/Discharge Visit Date of Eval: 06/10/25 Session #:: 36 Physician Prescribed Exercise Modalities: SciFit Stepper and SciFit Lateral [place] Frequency: 3x/week for 12 weeks [36 sessions] Intensity: 60-80% of age predicted maximum heart rate reserve Duration: 30 - 45 minutes Current METSs:: 3.4 Target Heart Rate:: 81-101 Current RPE:: 12-13 Maximum Heart Rate:: 92 Resting Blood Pressure: 100/56 Maximum Exercise Blood Pressure: 140/60 EKG Type: Vent paced w/underlying afib/flutter twave inv and rare PVC's Outcomes & Goals Goals:: Verbalizes understanding of THR, RPE & goal METS by session 6, Documents in home exercise log/reports 30 min aerobic 5 day/wk by DC, Demonstrates accurate pulse taking by DC and Other additional outcome/goals: see below Intervention & Plan Exercise Program Goals: Instruct on personal THR & RPE, Instruct on MET level & personal MET goal, Show patient to take own pulse /validate performance until accurate, Instruct on home exercise and Other additional plan/int Physical Activity Home Exercise Physical Activity - Home Exercise: Safe Exercise, Warm-up, Self-monitoring, Cool-Down, Home Exercise > 30 min Daily and Sitting Time <3 hours/daily Outcomes & Goals Outcomes/Goals: Demonstrates correct Warm-up/exercise Cool-Down (S3) if = 2.5 METs, Verbalizes symptoms of exercise intolerance by Session 3 (S3), Demonstrate safe equipment use (S3) & follows exercise prescrition (6) and Other: See below Intervention & Plan Plan/Intervention: Instruct warm-up & cool-down if exercising at > 2 METs, Instruct on symptoms of exercise intolerance & actions to take, Instruct & monitor on saf, Assess intial functional capacity & safety risk and Other See below 30-day Reassessments 30 day Reassessments:: Met Reassessment Notes & Comments:: Pt has met his exercise goals. Pt was given his exercise prescription as well as community resources to continue his exercise. Nutrition - 30-Day Assessment Weight Mgt (Other Care) Height: 5 ft 11 in Weight:: 261 lb BMI: 36.3 Nutrition - 60-Day Assessment Weight Mgt (Other Care) Height: 5 ft 11 in Weight:: 261 lb BMI: 36.3 Core - 30-Day Assessment Hypertension [place] [employer] Hypertension Guidelines Reassessment Notes & Comments:: BP's are within AHA normal limits. Core - Final Assessment Visit Date of Eval: 06/10/25 Session #:: 36 Medication Compliance Preventative Medication(s):: JOSE A inhibitor, Clopidogrel/P2Y12 inhibit, Statin/lipid and Eliquis H/O mental health issues: depression, anxiety, or addiction?: No Doesn?t believe in the benefits of treatment?: No Believes medications are unnecessary or harmful?: No Has a concern about medication side effects?: No Expresses concern over the cost of medications?: No Outcomes/Goals: Verbalizes medications,desired effect & common side effects @ DC, Pt self-reports following medication regimen, Keeps card in wallet w/medications listed by DC and Other additional outcome/goals: Interventions/plans: Instruct on medication effects & side effects, Review medication list w/patient every two weeks, Instruct importance of taking meds as ordered & assist problem solving and Other additional Tobacco Use Tobacco Use: Non-smoker Hypertension Hypertension Diagnosis:: Hypertension ICD-10 I10 Resting Blood Pressure:: 100/56 [place] [employer] Hypertension Guidelines Peak Exercise Blood Pressure:: 140/60 Outcomes/Goals: Able to verbalize/achieve optimal blood pressure <130/80, Incorporates diet changes & exercise for blood pressure control by DC and Other additional outcomes/goals Interventions/plan: Instruct on optimal blood pressure, hypertension & medications, Instruct on effects of sodium, alcohol, stress, exercise &hypertension and Other additional plan/interventions 30 day Reassessments:: Met Reassessment Notes & Comments:: BP's are within AHA normal limits. Tobacco Cessation Referral Smoking Cessation Referral:: No Individual Education/Counseling:: No Education Schedule Given:: Yes Core - 90 Day Assessment Hypertension [place] [employer] Hypertension Guidelines Reassessment Notes & Comments:: BP's are within AHA normal limits. Core - 60-Day Assessment Hypertension Resting Blood Pressure:: 100/56 [place] [employer] Hypertension Guidelines Psychosocial - 30-Day Assess Referral to Behavioral Health PS - Interventions: Yes: Attend Stress Management Classes Psychosocial - 60-Day Assess Referral to Behavioral Health PS - Interventions: Yes: Attend Stress Management Classes Psychosocial - 90-Day Assess Referral to Behavioral Health PS - Interventions: Yes: Attend Stress Management Classes Psychosocial - Final Assessmen VIsit Date of Eval: 06/10/25 Session #:: 6 History of previous Mental disease:: No Psychosocial Test Tool Used:: [employer] QOL Cardiac and PHQ-9 Questionnaire phq-9 Severity See PHQ-9 Score: 2 Referral to Behavioral Health PS - Interventions: Yes: Attend Stress Management Classes Outcomes/Goals: See list Psychosocial Outcomes/Goals:: ID's personal stressors & 2 strategies to manage stress by discharge and Other Additional outcome/goals: Intervention/Plan: See List Interventions/Plan:: Assess stressors,coping strategies & signs of derpression on admission, Instruct/assist pt to develop coping & personal stress Mgt strategies, Refer to Behavioral Health if appropriate, Refer to Physician if appropriate, Instruct patient to recognize signs & symptoms of depression, Instruct patient to recog and Other additional plan/intervention 30-day Reassessments: 30 day Reassessments:: Met Reassessment Notes & Comments:: Pt has attended stress management classes. Nutrition - 90-Day Assessment Weight Mgt (Other Care) Height: 5 ft 11 in Weight:: 261 lb BMI: 36.3 Nutrition - Final Assessment Program Goals Patient has diagnosis of Hyperlipidemia (ICD E78)?: Yes Visit Date of Assessment:: 06/10/25 (Nutrition survey score of 2.) Cholesterol/Lipids (Other Core Measures) Determine presence & major risk factors that modify LDL goal: Cigarette smoking, Hypertension or hypertensive medication, Low HDL cholesterol <40 mg/dL*, Family history of premature CHD in Male < 55 years: female <65 yearsFa and Age men > 45 years; women >/= 55 years Outcomes/Goals: Pt IDs own risk factors & lifestyle modifications by Session 10, Verbalizes symptoms of angina & response by session 3., Pt independently manages and Other Additional Outcomes/Goals: Intervention/Plan: Advocate for lipid panel cholesterol medication if applicable, Instruct on personal lipid levels & lipid goals/NCEP guidelines, Instruct on cholesterol and Other additional plan/int Weight Mgt (Other Care) Height: 5 ft 11 in Weight:: 261 lb BMI: 36.3 Diagnosis Overweight/Obesity 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 Diagnosis High BMI/Morbid Obesity BMI> 35% ICD-10 Z68: Yes Outcomes/Goals: Pt sets, maintains & shows weight loss goal & trend during rehab and Other additional outcomes/goals Intervention/Plan: Instruct on ideal BMI & set weight loss goal w/patient, Assist pt to ID & incorporate diet changes for weight loss by S9, Refer to Structured Weight Loss program as appropriate, Encourage goal of using 250-300dcal per session for weight loss and Other additional plan/interventions Healthy Eating Habits Will attend diet classes:: Yes Outcomes/Goals:: Consume diet rich in vegs,fruits,whole grain/high fiber,fish,lean meat, Limit sat/trans fats,cholesterol & added salts & sugars and Other additional outcome/goals: Intervention/Plan:: Assess current eating habits and Other Additional plan/interventions 30-day Reassessments:: Met Reassessment Notes & Comments:: Pt has attended nutrition classes with our vp ad products and planning. Pt has the tools to continue a heart healthy low sodium diet. Education Gave educational materials for:: Signs & symptoms of hypoglycemia, Signs & symptoms of hyperglycemia, Relate diabetes to coronary artery disease and Healthy eating
[2025-06-10 08:23] VITALS: BP 100/56; BMI 36.3
== END 2025-06-22 23:59 ==
LOC: CR 14:15
PROVIDERS: PCP Family Medicine; Referring Provider Internal Medicine Cardiovascular Disease; Visit Provider Internal Medicine Cardiovascular Disease
DX: Z95.5 Presence of coronary angioplasty implant and graft (principal); I25.10 Atherosclerotic heart disease of native coronary artery without angina pectoris; Z95.0 Presence of cardiac pacemaker; I48.19 Other persistent atrial fibrillation
CPT/HCPCS: 93798